=== PATIENT | female | born 1965 | race Caucasian/White ===

== ENCOUNTER → 2017-12-22 08:18 | Outpatient (CLI) | payer MEDICARE, SELFPAY ==
[2017-12-22 09:32] LABS: AST(SGOT) 20 U/L (15-37); Alanine Aminotransfer ALT/SGPT 19 U/L (13-56); Albumin, Serum 3.8 g/dL (3.2-5.0); Alkaline Phosphatase 79 U/L (45-117); Bilirubin, Direct 0.16 mg/dL (0.00-0.30); Cholesterol 157 mg/dL (200); Globulin 3.2 g/dL (2.2-4.2); High Density Lipoprotein 47 mg/dL; T4 Total, Thyroxin 9.3 ug/dL (4.8-13.9); Thyroid Stim Hormone (TSH) 0.52 uIU/mL (0.358-3.74); Triglycerides 93 mg/dL; Very Low Density Lipoprotein 19 mg/dL (5-40)
== END ==
LOC: LAB 08:22
PROVIDERS: Family Provider Internal Medicine; PCP Internal Medicine; Visit Provider Internal Medicine Cardiovascular Disease
DX: I48.0 Paroxysmal atrial fibrillation (principal); Z86.73 Personal history of transient ischemic attack (TIA), and cerebral infarction without residual deficits; F17.200 Nicotine dependence, unspecified, uncomplicated
CPT/HCPCS: 36415; 80061; 80076; 84436; 84443

== ENCOUNTER → 2017-12-27 14:40 | Outpatient (CLI) | payer MEDICARE, SELFPAY ==
--- NOTE | 2017-12-27 14:43 | ECHOD_ITS ---
Reason For Study: DYSPNEA Procedure This was a 2D Doppler, Color Flow transthoracic echocardiogram. Exam performed in department. Left Ventricle Mildly dilated left ventricle. The estimated ejection fraction is 45 %. Paced septal motion. No regional wall motion abnormalities noted. Right Ventricle Mildly dilated right ventricle. ICD or pacer leads identified within the right ventricle. Normal systolic function. Atria Normal left atrium. Normal right atrium. ICD or pacer leads identified within the right atrium. Normal atrial septum. Mitral Valve Peak transmitral valve gradient 12 mmHg. Mean transmitral valve gradient 6 mmHg. Stable appearing bioprosthetic mitral valve apparatus. Tricuspid Valve Normal tricuspid valve. Mild (1+) tricuspid valve insufficiency. Right ventricular systolic pressure estimated to be 31 mmHg. Aortic Valve Trisinus/trileaflet aortic valve. Trivial aortic valve insufficiency. Pulmonic Valve The pulmonic valve is not well visualized. Great Vessels Normal aortic root. Normal arch. Normal inferior vena cava. Inferior vena cava collapse with sniff. Pericardium/Pleural No pericardial effusion. MMode/2D Measurements & Calculations LVIDd: 4.9 cm IVSd: 0.90 cm LVOT diam: 2.0 cm LVIDs: 3.5 cm LVPWd: 0.88 cm LVOT area: 3.1 cm2 RVDd: 3.9 cm FS: 29.0 % Ao root diam: 2.6 cm LAV(MOD-bp): 42.1 ml LA A4 area: 15.9 cm2 LAV(MOD-bp) Indexed: 23.0 ml/m2 LAV(MOD-sp2): 38.9 ml LAV(MOD-sp4): 41.5 ml RA A4 area: 12.5 cm2 Doppler Measurements & Calculations Lat Peak E' [place]: 5.1 cm/sec Med Peak E' [place]: 5.3 cm/sec MV V2 max: 171.5 cm/sec MV max P.8 mmHg MV V2 mean: 121.7 cm/sec MV mean P.4 mmHg MV V2 VTI: 38.7 cm MVA(VTI): 1.9 cm2 Ao V2 max: 146.2 cm/sec AI max milan: 425.5 cm/sec LV V1 max: 126.9 cm/sec Ao max P.6 mmHg AI max P.4 mmHg LV V1 max P.4 mmHg TUAN(V,D): 2.7 cm2 AI dec slope: 270.3 cm/sec2 LV V1 mean P.8 mmHg AI P1/2t: 461.0 msec LV V1 mean: 76.7 cm/sec LV V1 VTI: 23.2 cm SV(LVOT): 72.8 ml PA V2 max: 90.3 cm/sec PI end-d milan: 112.9 cm/sec TR max milan: 228.4 cm/sec TR max P.2 mmHg Interpretation Summary Mildly dilated left ventricle. The estimated ejection fraction is 45 %. Mildly dilated right ventricle. Stable appearing bioprosthetic mitral valve apparatus normal bioprosthetic peak and mean gradients. Mild (1+) tricuspid valve insufficiency. Right ventricular systolic pressure estimated to be 31 mmHg. Trivial aortic valve insufficiency. There is no comparison study available. Ordering Physician: Dillon Hoff Referring Physician: AZUL PHILLIPS Performed By: Karina Gillis, RDCS, RVT
== END ==
PROVIDERS: Family Provider Internal Medicine; PCP Internal Medicine; Visit Provider Internal Medicine Cardiovascular Disease
DX: I49.5 Sick sinus syndrome (principal); I44.2 Atrioventricular block, complete; Z95.0 Presence of cardiac pacemaker; Z95.3 Presence of xenogenic heart valve; I10 Essential (primary) hypertension; I05.2 Rheumatic mitral stenosis with insufficiency; F17.200 Nicotine dependence, unspecified, uncomplicated; I48.0 Paroxysmal atrial fibrillation; Z86.73 Personal history of transient ischemic attack (TIA), and cerebral infarction without residual deficits
CPT/HCPCS: 93306

== ENCOUNTER → 2018-01-17 06:51 | Outpatient (CLI) | payer MEDICAID, SELFPAY ==
--- NOTE | 2018-01-17 15:12 | PFTCOMP ---
COMPLETE PULMONARY FUNCTION TEST INTERPRETATION Brief HPI: Patient is a 52 year old female, currently under the care of Dr. Hoff, who presents to [facility] for complete pulmonary function tests secondary to diagnosis of A. fib. Respiratory therapist reports good effort and reproducible results. Interpretation: Forced expiration spirometry shows no large airways obstructive ventilatory defect with an FEV1 of 85% predicted. There is no significant bronchodilator response by ATS criteria. Spirograms are of good quality and plateau normally. The respiratory flow volume loop shows a normal pattern. Lung volumes by body plethysmography are not reported. Diffusion capacity by carbon monoxide is decreased at 57% predicted. The airway resistance is normal. No previous pulmonary function tests were available for review. Impression: Isolated defect in diffusion capacity consistent with a pulmonary vascular disorder. Would recommend serial monitoring if amiodarone is being used. Lung volumes would be helpful.
== END ==
PROVIDERS: Family Provider Internal Medicine; PCP Internal Medicine; Visit Provider Internal Medicine Cardiovascular Disease
DX: I48.0 Paroxysmal atrial fibrillation (principal); Z86.73 Personal history of transient ischemic attack (TIA), and cerebral infarction without residual deficits; Z95.3 Presence of xenogenic heart valve; I10 Essential (primary) hypertension
CPT/HCPCS: 94060; 94726; 94729

== ENCOUNTER → 2018-01-26 12:27 | Outpatient (CLI) | payer MEDICAID, SELFPAY ==
--- NOTE | 2018-01-26 12:29 | STE_ITS ---
Reason For Study: Dyspnea Stress Results Protocol: Modified Eloy Protocol Maximum Predicted HR: 170 bpm Target HR: 145 bpm% Maximum Pred icted HR: 80 % DurationHeart Rate Stage (mm:ss) (bpm) BPCom ment Baseline 80 108/70 No Chest Pain Modified Eloy Protocol Stage 0 3:00 97 132/70No Chest Pain; Moderate Dyspnea Modified Eloy Protocol Stage 1/2 3:00 98 164/72No Chest Pain, Moderate Dyspnea Modified Eloy Protocol Stage 1 1:46 13 6 / No Chest Pain, Moderate to Severe Dyspnea Recovery 84 124/72 No Chest Pain; No Dyspnea Stress Duration: 7:46 mm:ss Maximum Stress HR: 136 bpmM ETS: 4 Baseline Echocardiogram Findings The estimated ejection fraction is 55 %. Septal Stress Echo Wall motion Data Resting WMIntermediate WMStress WM Resting Wall Motion Wall Motion Stress No regional wall motion No regional wall motion abnormalities noted. abnormalities noted. EKG Data The baseline ECG demonstrates normal sinus rhythm with at rate of _ beats per minute. Interpretation Summary The estimated ejection fraction is 55 %. Normal, adequate, treadmill echocardiogram. Negative for ischemia by EKG and echocardiographic criteria. No anginal symptoms noted. Normal BP response to exercise. Patient had transient atrial fibrillation during exercise which spontaneously resolved during recovery. Final LVEF 75%. No complications. Ordering Physician: Dillon Hoff Referring Physician: Dillon Hoff Performed By: Rafa Crespo RCS
== END ==
PROVIDERS: Family Provider Internal Medicine; PCP Internal Medicine; Visit Provider Internal Medicine Cardiovascular Disease
DX: I48.0 Paroxysmal atrial fibrillation (principal); Z95.3 Presence of xenogenic heart valve; I10 Essential (primary) hypertension
CPT/HCPCS: 93017; 93350

== ENCOUNTER 2018-10-23 09:04 | Emergency (ER) | payer MEDICARE, SELFPAY ==
[2018-06-25 09:50] VITALS: BMI 34.9
[2018-10-23 09:05] VITALS: BP 154/85; PULSE 89; RESP 20; TEMP 36.6; O2SAT 99; BMI 34.7
--- NOTE | 2018-10-23 09:21 | ED.VIS.GEN ---
History of Present Illness Chief Complaint: Lower Extremity Injury Detail of Chief Complaint: Rash dorsal surface right foot Informant: Patient Onset: Yesterday Context: Sudden Onset Timing: Continuous Quality: Erythematous rash distal lateral right foot Location: Right foot Current Severity: Mild Maximum Severity: Mild Worsened by: Fungal infection Relieved by: Nothing Associated Symptoms: Nothing Narrative: Patient is a middle-aged woman who was sent to the emergency room for evaluation of right foot infection. She denies fever, chills night sweats. She denies polyuria, polydipsia, polyphagia, nocturia. She did denies family history diabetes. She is on Coumadin secondary to stroke 10 years ago. She has multiple antibiotic allergies and specifically penicillin and cephalosporin. She denies fever, chills night sweats. Denies weight loss or weight gain. She denies bruising easily. She denies blood in her stool, hematuria or rash other than the right foot rash. Prior similar symptoms: No Recent Illness/Hospitalization: No - Past Medical History (1) Non-ischemic cardiomyopathy Status: Acute Comment: EF 45% per echo 12/27/17 (2) CVA (cerebral vascular accident) Status: Chronic Comment: Left Mid Cerebral Artery, Right frontal and Bilateral Parietal Regions (3) Complete heart block Status: Chronic (4) Hypertension Status: Chronic (5) Paroxysmal atrial fibrillation Status: Chronic (6) Presence of cardiac pacemaker Status: Chronic Comment: Implanted 07/28/2009 then RV lead extraction and Generator Change on 07/04/2011 (7) Rheumatic mitral stenosis with insufficiency Status: Chronic (8) Sick sinus syndrome Status: Chronic Past Medical History - Allergies and Home Meds Allergies/Adverse Reactions: Allergies amoxicillin [Amoxicillin] Allergy (Verified 10/23/18 09:07) Hives latex Allergy (Verified 10/23/18 09:07) Rash lisinopril Allergy (Verified 10/23/18 09:07) Unknown Penicillins Allergy (Verified 10/23/18 09:08) Hives venom-honey bee [bee venom (honey bee)] Allergy (Verified 10/23/18 09:07) Swelling ciprofloxacin [From Cipro] Adverse Reaction (Verified 10/23/18 09:07) Nausea/Vom/Diarrhea Primary Care Physician: Louis Dobbs MD [Primary Care Provider] - Prior records reviewed: Yes Surgical History: noncontributory Lives: With Family Smoking Status: Current every day smoker Alcohol: None - Family History Maternal Family History: Reports: - - No coronary artery disease Paternal Family History: Reports: - - No coronary artery disease Review of Systems General: Denies: Chills, Fever, Malaise, Sweats, Weight loss Eyes: Denies: Visual changes - bilaterally, Blurred Vision - bilaterally, Diplopia ENT: Denies: Bilateral ear pain, Rhinorrhea, Sore throat Cardiovascular: Denies: Chest pain, Palpitations Respiratory: Denies: Dyspnea, Cough, Dyspnea on exertion Gastrointestinal: Denies: Nausea, Vomiting Skin: Reports: Rash Endocrine: Denies: Polyuria, Polydipsia Hematologic: Denies: Easy bruising, Easy bleeding Allergy: Reports: Uticaria - Reaction to penicillin. Denies: Swelling of the mouth Physical Exam Vital Signs/Narrative: Vital Signs Temp Pulse Resp BP Pulse Ox 10/23/18 09:05 97.9 F 89 20 H 154/85 H 99 General: Well nourished, Well developed, Obese, No Acute Distress Head: Normocephalic, Atraumatic Eyes: Perrl, EOMI. Negative for: Pale conjunctiva, Scleral icterus ENT: Moist mucous membranes, No rhinorrhea Neck: Supple, Nontender, No lymphadenopathy, No JVD Cardiovascular: Regular rate, Regular rhythm, No murmurs, Normal S1, Normal S2 Respiratory: No distress, CTA bilaterally, Chest nontender Abdomen: Soft, Nontender, Nondistended, Normal bowel sounds Extremities: Nontender, No edema Skin: Normal color, Rash - There is an erythematous rash secondary to yeast infection between the fourth and fifth toe. This covers the lateral dorsal surface of the right foot with lymphangitic spread to the anterior right ankle. There is no popliteal or inguinal lymphadenopathy. Neurological: Alert, Oriented x3, Cranial nerves II-XII grossly intact, Normal Strength, Normal Sensation Psychological: Normal affect, Normal Mood Diagnostic/Tx/Re-eval Laboratory Results 10/23/18 10:15 PT 27.2 H INR 2.5 - Medical Decision Making Since patient is on Coumadin and antibiotic may cause elevation of INR will obtain baseline. Depending on baseline will have patient alter dose of Coumadin while on antibiotics. GGT was obtained to evaluate for diabetes. If blood sugar is elevated will obtain basic metabolic panel and additional blood work otherwise will treat with anti-fungal cream and p.o. doxycycline. INR is therapeutic at 2.7. Patient was instructed to decrease Coumadin from 5 mg a day to 2.5 mg a day while on antibiotic. ED Disposition - Plan for ED Patient: Disposition: Home or Assisted Living Diagnosis: Cellulitis of foot, right, Tinea pedis of right foot Instructions: ED Infec Skin Cellulitis, ED Fungal Infec Athlete Foot Prescriptions: Doxycycline 100 mg PO BID #14 capsule Clotrimazole [Lotrimin AF] 24 gm TP TID #1 cream..g. Referrals: Louis Dobbs MD [Primary Care Provider] - 2 Days for wound check Additional Instructions: If Dr. Dobbs is unable to see you for wound check in 2 days please return to the emergency room for wound check. Your prescriptions were electronically transmitted to [facility] pharmacy; your designated pharmacy of choice. Decrease Coumadin dose to 2.5 mg for today, tomorrow and Monday.
[2018-10-23 10:07] VITALS: BP 134/76; PULSE 78; RESP 18; TEMP 36.7; O2SAT 98
[2018-10-23] MEDS: Doxycycline 100 MG CAPSULE PO (10:24)
[2018-10-23 10:29] LABS: International Normalized Ratio 2.5; Prothrombin Time (Protime)PT. 27.2 SECONDS (11.7-14.9)
[2018-10-23 10:41] LABS: Bedside Glucose 93 mg/dL (70-110)
== END 2018-10-23 10:57 | disposition home or self-care (01) ==
PROVIDERS: Emergency Provider Emergency Medicine; Family Provider Internal Medicine; PCP Internal Medicine
DX: L03.115 Cellulitis of right lower limb (principal); B35.3 Tinea pedis; E66.9 Obesity, unspecified; I42.9 Cardiomyopathy, unspecified; I44.2 Atrioventricular block, complete; I10 Essential (primary) hypertension; I48.0 Paroxysmal atrial fibrillation; I05.2 Rheumatic mitral stenosis with insufficiency; F17.200 Nicotine dependence, unspecified, uncomplicated; Z95.0 Presence of cardiac pacemaker
CPT/HCPCS: 82962; 85610; 99283; A4216

== ENCOUNTER → 2019-02-19 | Outpatient (CLI) | payer MEDICARE, SELFPAY ==
[2019-02-14 11:04] VITALS: BMI 33.5
--- NOTE | 2019-02-19 13:49 | ECHOD_ITS ---
Reason For Study: VALVE REPLACEMENT Procedure This was a 2D Doppler, Color Flow transthoracic echocardiogram. Exam performed in department. Left Ventricle Normal size and thickness. The estimated ejection fraction is 45 %. Paced septal motion. There is moderate global hypokinesis of the left ventricle. Right Ventricle Mildly dilated right ventricle. ICD or pacer leads identified within the right ventricle. Mild global right ventricular systolic dysfunction. Atria Normal left atrium. Normal right atrium. Normal atrial septum. Mitral Valve Peak transmitral valve gradient 8 mmHg. Mean transmitral valve gradient 5 mmHg. Stable appearing bioprosthetic mitral valve apparatus. Tricuspid Valve Normal tricuspid valve. Moderate (2+) tricuspid valve insufficiency. Right ventricular systolic pressure estimated to be 36 mmHg. Aortic Valve Trisinus/trileaflet aortic valve. Trivial aortic valve insufficiency. Pulmonic Valve Normal pulmonic valve. Mild (1+) pulmonic valve insufficiency. Great Vessels Normal aortic root. Normal arch. Normal inferior vena cava. Inferior vena cava collapse with sniff. Pericardium/Pleural No pericardial effusion. MMode/2D Measurements & Calculations LVIDd: 5.0 cm IVSd: 0.74 cm LVOT diam: 2.0 cm LVIDs: 3.4 cm LVPWd: 0.78 cm LVOT area: 3.1 cm2 RVDd: 3.8 cm FS: 32.4 % Ao root diam: 2.9 cm LAV(MOD-bp): 37.5 ml LA A4 area: 12.5 cm2 LAV(MOD-bp) Indexed: 20.4 ml/m2 LAV(MOD-sp2): 51.2 ml LAV(MOD-sp4): 27.0 ml LA dimension(2D): 3.5 cm RA A4 area: 12.7 cm2 Doppler Measurements & Calculations MV V2 max: 142.6 cm/sec Ao V2 max: 154.1 cm/sec AI max adair: 434.6 cm/sec MV max P.2 mmHg Ao max P.5 mmHg AI max P.6 mmHg MV V2 mean: 102.5 cm/sec Ao V2 mean: 112.4 cm/sec AI dec slope: 299.6 cm/sec2 MV mean P.5 mmHg Ao mean P.6 mmHg AI P1/2t: 424.9 msec MV V2 VTI: 35.7 cm Ao V2 VTI: 29.6 cm MVA(VTI): 2.3 cm2 TUAN(I,D): 2.8 cm2 TUAN(V,D): 2.5 cm2 LV V1 max: 123.3 cm/sec SV(LVOT): 82.0 ml PA V2 max: 81.0 cm/sec LV V1 max P.1 mmHg LV V1 mean P.3 mmHg LV V1 mean: 84.8 cm/sec LV V1 VTI: 26.7 cm TR max adair: 263.5 cm/sec MV P1/2t-pr_phl: 97.5 msec TR max P.1 mmHg Interpretation Summary The estimated ejection fraction is 45 %. There is moderate global hypokinesis of the left ventricle. Mildly dilated right ventricle. Stable and normal functioning bioprosthetic mitral valve apparatus. Moderate (2+) tricuspid valve insufficiency. Right ventricular systolic pressure estimated to be 36 mmHg. Trivial aortic valve insufficiency. Compared to echo report dated 12/27/17, no appreciable changes noted. Ordering Physician: Dillon Hoff Referring Physician: Louis Dobbs M.D. Performed By: Karina Gillis, KANA, RVT
== END | disposition home or self-care (01) ==
LOC: CVS 13:48
PROVIDERS: Family Provider Internal Medicine; PCP Internal Medicine; Referring Provider Internal Medicine Cardiovascular Disease; Visit Provider Internal Medicine Cardiovascular Disease
DX: I44.2 Atrioventricular block, complete (principal); Z95.0 Presence of cardiac pacemaker; I05.2 Rheumatic mitral stenosis with insufficiency; I48.0 Paroxysmal atrial fibrillation; Z86.73 Personal history of transient ischemic attack (TIA), and cerebral infarction without residual deficits; I42.8 Other cardiomyopathies; I49.5 Sick sinus syndrome; Z95.3 Presence of xenogenic heart valve
CPT/HCPCS: 93306

== ENCOUNTER 2019-06-10 00:24 | Emergency (ER) | payer MEDICARE, SELFPAY ==
[2019-02-14 11:04] VITALS: BMI 33.5
[2019-06-10 00:25] VITALS: BP 138/113; PULSE 88; RESP 18; TEMP 36.5; O2SAT 98; BMI 34.4
[2019-06-10 00:30] VITALS: BP 148/54; PULSE 82; RESP 18; O2SAT 95
--- NOTE | 2019-06-10 00:43 | CT_ITS ---
STUDY: CT ABDOMEN AND PELVIS WITH CONTRAST REASON FOR EXAM: Female, 53 years old. Abdomen pain. Hypertension. RADIATION DOSAGE (If Supplied By Facility): CTDIvol = ( 17.60 ) mGy, DLP = ( 1100.07 ) mGycm TECHNIQUE: Transaxial images were obtained from the dome of the diaphragm to the symphysis pubis without oral contrast. IV 100mL Isovue-300 100ML was administered. Sagittal and coronal images were reconstructed. Individualized dose optimization techniques were used for this CT. COMPARISON: None. FINDINGS: The visualized lung bases are unremarkable. The visualized portions of the heart are within normal limits. There is a cyst in the right lobe of the liver measures 6 mm axial image #18. Normal gallbladder and extrahepatic biliary system. Normal spleen. Normal pancreas. Normal bilateral adrenal glands. Normal right kidney. There is fat stranding in the left renal pelvis suggesting pyelonephritis. There is a left renal cyst measures 1 cm. Normal visualized stomach. Normal small intestine. There are multiple colonic diverticula consistent with diverticulosis. The appendix is visualized and appears normal. There is diffuse atherosclerotic calcification of the abdominal aorta, without a demonstrated aneurysm. Normal inferior vena cava. Normal retroperitoneum. Normal urinary bladder. Normal abdominal wall. Normal osseous structures. CT/Abdomen/Pelvis W IV Cont ONLY IMPRESSION: There is fat stranding in the left renal pelvis suggesting pyelonephritis. Electronically Signed: Yvonne Patino, at 2:16 EST Tel , Service support ,
--- NOTE | 2019-06-10 00:45 | ED.DCSUM_ITS ---
- ER Visit Summary Date of Service: 06/10/19 Chief Complaint: Diffuse abdominal pain History of Present Illness: The patient is a 53 F history of cardiomyopathy, stroke, A. fib on Eliquis, pacemaker and a prior partial colectomy due to a benign mass. Patient is on Coumadin. States she has had diffuse epigastric and periumbilical abdominal pain for about 2 weeks. Pains daily. Nothing specifically makes it better or worse. She had nausea. No vomiting or diarrhea. No documented fever but subjectively she is felt warm. Denies any melena. She was seen at the [facility] started on Macrobid for suspected UTI. She denies any urinary symptoms. Denies any weight loss. Physical Examination: Middle-aged female. No acute distress. Vital signs are stable afebrile. HEENT exam unremarkable. Lungs clear to auscultation bilaterally. Heart regular rhythm no murmur. Abdomen is soft. Nondistended. Normal bowel sounds. No peritoneal signs. Mildly tender in epigastric periumbilical region. No specific Dudley sign or McBurney's point tenderness. No hernias or masses. No pulsatile mass. Patient moving all 4 extremities. Neurovascular intact. No edema. Back nontender. Neurologically she is awake and alert. Moving all 4 extremities. Test Results: CBC shows a white count of 10. Hemoglobin 13. No bands. Chemistries normal BUN 16 creatinine 1.1. Liver enzymes normal. Lipase normal. UA shows positive nitrites blood 25-50 on the micro there is no white cells no bacteria. Serum test negative. CAT scan of the abdomen pelvis with IV contrast only reviewed by me read by the radiologist shows fat stranding and left renal pelvis consistent with pyelonephritis the appendix is seen is normal there is mild diverticulosis. Due to the CAT scan results a urine culture was sent. Emergency Department Course and Treatment: Middle-aged female with diffuse nonspecific epigastric and periumbilical abdominal pain for 2 weeks. Screening labs will be obtained. CT abdomen pelvis will be obtained. She did not waiting currently for pain or nausea. She will be given a liter normal saline do the CAT scan with IV contrast. Patient was treated with Toradol for pain and Zofran for nausea. Repeat exam she is doing well. We discussed all of her test results. Basically normal labs. The CAT scan is concerning for a left pyelonephritis. Urine culture was sent. She will be placed on Keflex for 10 days and follow-up with her primary care physician. Treatment Plan: Keflex 4 times daily for 10 days. Zofran for nausea. Tylenol Motrin for pain. Follow-up with your primary care physician for the urine culture results. Disposition: Discharge Impression: Acute abdominal pain secondary to left pyelonephritis This note was generated with [employer] dictation software. It may contain incorrect words, spelling, and punctuation that were not noted in review of the chart prior to signing ED Disposition - Plan for ED Patient: Referrals: Louis Dobbs MD [Primary Care Provider] -
[2019-06-10] MEDS: 0.9% Normal Saline 1,000 ML 1000 ML IV (00:50)
[2019-06-10 00:55] LABS: Bacteria 0 SEEN /hpf (None Seen); Mucous, Urine 0 SEEN /hpf (<or=2+); White Blood Cells 0 SEEN /hpf (0-5)
[2019-06-10 00:59] LABS: Absolute Neutrophil Count 7.4 X10^3/uL (2.0-7.7); Basophil% 0.9 % (0-1); Eosinophil# 0.72 X10^3/uL; Eosinophils% 6.6 % (0-5); Hematocrit 41.6 % (37-47); Hemoglobin 13.8 g/dL (12.0-15.0); Lymphocyte % 17.5 % (19-41); Mean Corp Hgb Conc 33.2 g/dL (32-36); Mean Corpuscular Hgb 30.1 pg (27.0-32.0); Mean Corpuscular Volume 90.6 fL (81-99); Mean Platelet Vol. 10.1 fl (6.2-12.0); Monocyte# 0.69 X10^3/uL; Monocyte% 6.3 % (0-10); NRBC Flagged by Analyzer 0 % (0-5); Neutrophil # 7.43 X10^3/uL (2.7-7.7); Neutrophil % 68.4 % (47-70); Platelet Count 237 K/mm3 (150-450); RBC Distribution Width CV 14.5 % (11.6-14.6); RBC Distribution Width SD 48.6 fl (35.1-43.9); Red Blood Count 4.59 M/mm3 (4.2-5.4); White Blood Count 10.9 K/mm3 (4.4-11.0)
[2019-06-10 01:02] LABS: Color, Urine Yellow (Yellow); Glucose, Dipstick Normal (Normal); Ketone-Dipstick Negative (Negative); Leukocyte Esterase-Dipstick Negative /ul (Negative); Nitrite-Dipstick Positive (Negative); Occult Blood-Urine 250 /ul (Negative); Protein-Dipstick 100 mg/dl (Negative); Specific Gravity, Urine 1.015 (1.002-1.030); Urine Clarity Clear (Clear); Urine Urobilinogen 1 mg/dl (Normal)
[2019-06-10 01:04] LABS: Urine Bilirubin Dipstick 1 mg/dL (Negative)
[2019-06-10 01:12] LABS: Red Blood Cells-Urine 25-50 SEEN /hpf (0-5); Squamous Epithelial Cells - UA 0-5 SEEN /hpf (5-10)
[2019-06-10 01:23] LABS: AST(SGOT) 32 U/L (15-37); Alanine Aminotransfer ALT/SGPT 19 U/L (13-56); Albumin, Serum 3.7 g/dL (3.2-5.0); Alkaline Phosphatase 86 U/L (45-117); Anion Gap 7 (5-15); BUN 16 mg/dL (7-18); BUN/Creat Ratio 13.9 RATIO (10-20); Bilirubin, Direct 0.12 mg/dL (0.00-0.30); Calcium,Total 9.2 mg/dL (8.5-10.1); Chloride 108 mmol/L (98-107); Creatinine, Serum 1.15 mg/dL (0.55-1.02); EST Glomerular Filtration Rate 53 mL/min (>60); Est Glom Filt Rate - Afr Amer 64 mL/min (>60); Estimated Creatinine Clearance 45.77 ml/min; Globulin 3.6 g/dL (2.2-4.2); Glucose 119 mg/dL (74-106); Lipase 155 U/L (73-393); Potassium 4.7 mmol/L (3.5-5.1); Protein, Total 7.3 g/dL (6.4-8.2); Sodium Level 138 mmol/L (136-145)
[2019-06-10 01:38] LABS: Internal QC Validated? YES +Cl - CLEAR BKGD; Pregnancy, Serum, hCG Quali. NEGATIVE Negative
[2019-06-10 02:26] VITALS: BP 139/76; PULSE 67; RESP 18; O2SAT 98
[2019-06-10] MEDS: Ondansetron 4 MG/2 ML Vial IV (02:29)
[2019-06-10] MEDS: Ketorolac 30 MG/ML Syringe IV (02:29)
[2019-06-10] MEDS: Cephalexin 250 MG Capsule 500 MG PO (02:32)
--- NOTE | 2019-06-10 02:33 | ED.DEP ---
ED Disposition - Plan for ED Patient: Disposition: Home or Assisted Living Instructions: PYELONEPHRITIS, Female (Adult) Prescriptions: Cephalexin [Keflex] 500 mg PO Q6 #40 cap Prescription Printed Ondansetron [Zofran Odt] 4 mg PO Q8H PRN PRN #10 tab PRN Reason: Nausea Prescription Printed Referrals: Louis Dobbs MD [Primary Care Provider] - 3-5 Days Additional Instructions: Follow-up with your primary care physician. Your CAT scan suggest that you might have an infection in your left kidney, pyelonephritis. A urine culture was sent those results should be back in 36 to 48 hours. Your primary care physician can check those. He will be started on antibiotic called Keflex which she will take 1 pill 4 times a day for 10 days. Written for Zofran for nausea. Tylenol and/or Motrin for pain.
== END 2019-06-10 02:43 | disposition home or self-care (01) ==
PROVIDERS: Emergency Provider Emergency Medicine; Family Provider Internal Medicine; PCP Internal Medicine
DX: N12 Tubulo-interstitial nephritis, not specified as acute or chronic (principal); I42.9 Cardiomyopathy, unspecified; I48.91 Unspecified atrial fibrillation; Z86.73 Personal history of transient ischemic attack (TIA), and cerebral infarction without residual deficits; Z95.0 Presence of cardiac pacemaker; Z90.49 Acquired absence of other specified parts of digestive tract; Z79.01 Long term (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 anticoagulants; Z79.899 Other long term (current) drug therapy; Z72.0 Tobacco use
CPT/HCPCS: 74177; 80048; 80076; 81001; 83690; 84703; 85025; 87086; 87088; 96361; 96374; 96375; 99284; Q9967; A4216; J2405

== ENCOUNTER 2019-07-24 19:56 | Emergency (ER) | payer MEDICARE, SELFPAY ==
[2019-07-24 19:56] VITALS: BP 158/83; PULSE 96; RESP 18; TEMP 35.8; O2SAT 98; BMI 33.7
--- NOTE | 2019-07-24 20:06 | ED.VIS.INJ ---
History of Present Illness Chief Complaint: Upper Extremity Injury Informant: Patient Onset: Today Mechanism/Context: Blunt Injury, Fall Quality of Pain: Dull, Aching Location: Left arm Current Severity: Mild Maximum Severity: Moderate - Movement and palpation Worsened by: Movement Relieved by: Rest Associated Symptoms: Parasthesias, Weakness, Loss of function, - - Patient reports weakness secondary to prior right hemispheric stroke with left-sided residual numbness and weakness. Negative for: Inability to ambulate, Loss of consciousness, Amnesia Narrative: Patient 53-year-old woman who presents because of injury to her right arm. She states she slipped on the ice this morning. She is right-hand dominant. She localizes the pain to the mid left arm. She denies any new paresthesia or weakness. She denies head trauma. She denies neck pain. She denies cardiac respiratory symptoms. Tetanus Immunization: <5 years Prior similar symptoms: No Recent Illness/Hospitalization: No - Past Medical History (1) Non-ischemic cardiomyopathy Status: Acute Comment: EF 45% per echo 12/27/17 (2) CVA (cerebral vascular accident) Status: Chronic Comment: Left Mid Cerebral Artery, Right frontal and Bilateral Parietal Regions (3) Complete heart block Status: Chronic (4) History of mitral valve replacement with bioprosthetic valve Status: Chronic Comment: 27 mm [employer] Velasco bioprosthesis (5) Hypertension Status: Chronic (6) Nicotine dependence Status: Chronic (7) Paroxysmal atrial fibrillation Status: Chronic (8) Presence of cardiac pacemaker Status: Chronic Comment: Implanted 07/28/2009 then RV lead extraction and Generator Change on 07/04/2011 (9) Sick sinus syndrome Status: Chronic Past Medical History - Allergies and Home Meds Allergies/Adverse Reactions: Allergies amoxicillin [Amoxicillin] Allergy (Verified 06/10/19 00:31) Hives latex Allergy (Verified 06/10/19 00:31) Rash lisinopril Allergy (Verified 06/10/19 00:31) Unknown Penicillins Allergy (Verified 06/10/19 00:31) Hives venom-honey bee [bee venom (honey bee)] Allergy (Verified 06/10/19 00:31) Swelling ciprofloxacin [From Cipro] Adverse Reaction (Verified 06/10/19 00:31) Nausea/Vom/Diarrhea Primary Care Physician: Louis Dobbs MD [Primary Care Provider] - Surgical History: coronary bypass surgery Lives: Spouse/ Significant Other Smoking Status: Current every day smoker Alcohol: None Drugs: None - Family History Maternal Family History: Reports: - - No coronary artery disease Paternal Family History: Reports: - - No coronary artery disease Review of Systems General: Denies: Chills, Fever, Sweats Eyes: Denies: Visual changes - bilaterally, Blurred Vision - bilaterally, Diplopia ENT: Denies: Bilateral ear pain Cardiovascular: Denies: Chest pain, Palpitations Respiratory: Denies: Dyspnea, Dyspnea on exertion Gastrointestinal: Denies: Abdominal pain, Nausea, Vomiting, Diarrhea Musculoskeletal: Reports: Swelling, Extremity Pain. Denies: Myalgias, Arthralgias, Neck pain, Back pain Skin: Reports: Rash, Abrasions, Wounds Neurological: Reports: Weakness, Parasthesia, Numbness, - - No symptoms are residual secondary to right hemispheric stroke. Denies: Headache Endocrine: Denies: Polyuria, Polydipsia Physical Exam Vital Signs/Narrative: Vital Signs Temp Pulse Resp BP Pulse Ox 07/24/19 19:56 96.5 F L 96 18 158/83 H 98 Inital Vital Signs reviewed: Yes General: Well nourished, Well developed Head: Normocephalic, Atraumatic. Negative for: Trauma, Tenderness Eyes: Perrl, EOMI ENT: TM's clear, No hemotympanum or drainage, No trauma. Negative for: Hemotympanum, Otorrhea, Nasal trauma, Nasal septal hematoma Neck: Nontender, Full ROM. Negative for: Spinal Tenderness, Paraspinal Tenderness Cardiovascular: Regular rate, No murmurs, Normal S1, Normal S2, Irregular Respiratory: No distress, CTA bilaterally, Chest nontender Back: Nontender. Negative for: CVA Tenderness - Right, CVA Tenderness - Left Extremeties: There is no pain the patient over the clavicle or AC joint. There is minimal to no discomfort over the proximal humerus. There is pain to palpation to the mid third of the left humerus. Axillary, median, radial and ulnar function are diminished. Radial pulse is palpable. There is no pain the patient over the lateral or medial epicondyle. There is no pain relation over the olecranon process or the radial head. No pain patient over the distal radius or ulna. Is no pain the patient with carpal bones, metacarpal bones or phalanges. Skin: Normal color, No rash Psychological: Normal affect, Normal Mood - Glascow Coma Scale Eye Opening: Spontaneous Motor: Obeys Commands Verbal: Oriented Coma Scale Total: 15 Diagnostic/Tx/Re-eval Chest X-Ray - ED: 2 View, Read by ED Physician, - - 2 view x-ray of the left humerus reveals no fracture, subluxation or dislocation. 07/24/19 20:11 Humerus min 2 Views [RAD] Stat - Medical Decision Making X-ray of the left humerus was ordered to evaluate for contusion versus fracture. ED Disposition - Plan for ED Patient: Disposition: Home or Assisted Living Diagnosis: Contusion of left upper arm, initial encounter Instructions: CONTUSION, Upper Extremity Referrals: Louis Dobbs MD [Primary Care Provider] - 10-14 Days if not better Additional Instructions: Apply ice 20 to 30 minutes per application 6-8 times a day for the next 2 to 3 days. Take either Tylenol or ibuprofen for the pain.
--- NOTE | 2019-07-24 20:11 | RAD_ITS ---
STUDY: X-RAY - LEFT HUMERUS REASON FOR EXAM: Female, 53 years old. Left arm pain after falling TECHNIQUE: 2 view(s) of the humerus. COMPARISON: None. FINDINGS: Normal visualized humerus. There is no demonstrated fracture or osseous destructive process. There is no demonstrated soft tissue abnormality. Cardiac conduction device noted. RAD/Humerus min 2 Views IMPRESSION: No fracture or malalignment. Electronically Signed: Jose G Lui MD ([place]) at 20:25 EST , Service support ,
[2019-07-24] MEDS: HYDROcodone Bitartrate/Apap 5/325 Tablet PO (20:13)
== END 2019-07-24 20:50 | disposition home or self-care (01) ==
PROVIDERS: Emergency Provider Emergency Medicine; Family Provider Internal Medicine; PCP Internal Medicine
DX: S40.022A Contusion of left upper arm, initial encounter (principal); W00.0XXA Fall on same level due to ice and snow, initial encounter; Y93.9 Activity, unspecified; Y92.9 Unspecified place or not applicable; I42.8 Other cardiomyopathies; I44.2 Atrioventricular block, complete; I10 Essential (primary) hypertension; I48.0 Paroxysmal atrial fibrillation; I49.5 Sick sinus syndrome; Z86.73 Personal history of transient ischemic attack (TIA), and cerebral infarction without residual deficits; Z95.2 Presence of prosthetic heart valve; Z95.3 Presence of xenogenic heart valve; Z95.1 Presence of aortocoronary bypass graft; Z79.01 Long term (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 anticoagulants; Z79.899 Other long term (current) drug therapy; F17.200 Nicotine dependence, unspecified, uncomplicated
CPT/HCPCS: 73060; 99283

== ENCOUNTER → 2019-09-10 10:16 | Outpatient (CLI) | payer MEDICARE, MEDICAID, SELFPAY ==
[2019-08-29 13:13] VITALS: BMI 33.8
--- NOTE | 2019-09-10 10:17 | STEWCON_ITS ---
Reason For Study: DYSPNEA/SOB Stress Results Protocol: Modified Eloy Protocol With Definity Maximum Predicted HR: 169 bpm Target HR: 144 bpm % Maximum Predicted HR: 78 % DurationHeart Rate Stage (mm:ss) (bpm) BP Comment BASELINE 78 122/78DILUTED DEFINITY 3 CC USED MODBRUCE- STAGE 1 3:00 115 120/76DIZZY, SOB MODBRUCE- STAGE 2 3:00 131 128/80FATIGUE, DIZZY, SOB RECOVERY 85 120/80DIZZINESS, SOB SUBSIDED Stress Duration: 6:00 mm:ss Maximum Stress HR: 131 bpm Baseline Echocardiogram Findings The estimated ejection fraction is 45 %. Septal motion consistent with IVCD. Stress Echo Wall motion Data Resting WM Intermediate WM Stress WM Resting Wall Motion Wall Motion Stress No regional wall motion No regional wall motion abnormalities noted. abnormalities noted. EKG Data The baseline ECG displays normal sinus rhythm. During stress, there were no ST or T wave changes noted to suggest ischemia. No clinical angina was noted. Interpretation Summary The estimated ejection fraction is 45 %. Normal, adequate, modified Eloy treadmill echocardiogram. Negative for ischemia by EKG and echocardiographic criteria. Rate-pressure product of 14,848. No anginal symptoms noted. Rare PACs noted. Baseline LVEF of 45% which increased to 55 % at peak exercise. Test terminated due to fatigue and dyspnea. Decreased exercise capacity for age. Decrease sensitivity due to left bundle branch block, and poor echo windows requiring Definity agent. Patient tolerated procedure well. The study was technically difficult. Contrast injection was performed. Ordering Physician: Dillon Hoff Referring Physician: Dillon Hoff Performed By: Rafa Crespo RCS
== END ==
PROVIDERS: PCP Internal Medicine; Referring Provider Internal Medicine Cardiovascular Disease; Visit Provider Internal Medicine Cardiovascular Disease
DX: R06.00 Dyspnea, unspecified (principal)
CPT/HCPCS: 93017; 93350; Q9957; A4216; C8928

== ENCOUNTER → 2020-04-14 12:52 | Outpatient (CLI) | payer MEDICARE, MEDICAID, SELFPAY ==
[2020-03-30 12:59] VITALS: BMI 32.4
--- NOTE | 2020-04-14 12:52 | ECHOD_ITS ---
Reason For Study: VALVE REPLACEMENT EVAL Procedure This was a 2D Doppler, Color Flow transthoracic echocardiogram. The exam was of adequate technical quality. Exam performed in department. Left Ventricle Normal LV size. Left ventricular systolic function is lower limits of normal. The estimated ejection fraction is 50 %. Paced septal motion. Diastolic function is indeterminate. No regional wall motion abnormalities noted. Right Ventricle Normal RV size. ICD or pacer leads identified within the right ventricle. Normal systolic function. Atria Normal left atrium. Normal right atrium. ICD or pacer leads identified within the right atrium. No doppler evidence for ASD. Mitral Valve Stable appearing bioprosthetic mitral valve apparatus. Trivial transvalvular insufficiency of the mitral valve. Tricuspid Valve Normal tricuspid valve. Mild to moderate (1-2+) tricuspid valve insufficiency. Right ventricular systolic pressure estimated to be 25 mmHg. Aortic Valve Trisinus/trileaflet aortic valve. Normal aortic valve. Pulmonic Valve The pulmonic valve is not well visualized. Trivial pulmonic valve insufficiency. Great Vessels Normal sized aortic root. Pericardium/Pleural No pericardial effusion. MMode/2D Measurements & Calculations LVIDd: 4.9 cm IVSd: 0.69 cm Ao root diam: 3.0 cm LVIDs: 3.3 cm LVPWd: 0.90 cm RVDd: 3.1 cm FS: 32.8 % LAV(MOD-bp): 49.0 ml LVAd ap4: 27.2 cm2 SV(MOD-sp4): 41.6 ml LAV(MOD-bp) Indexed: 26.8 ml/m2 EDV(MOD-sp4): 80.4 ml LAV(MOD-sp2): 56.2 ml EDV(sp4-el): 82.2 ml LAV(MOD-sp4): 41.8 ml LVAs ap4: 18.5 cm2 ESV(MOD-sp4): 38.8 ml ESV(sp4-el): 40.4 ml EF(MOD-sp4): 51.7 % EF(sp4-el): 50.8 % SV(sp4-el): 41.8 ml LA A4 area: 16.3 cm2 LA dimension(2D): 3.9 cm RA A4 area: 12.7 cm2 Time Measurements MV dec time: 0.35 sec Doppler Measurements & Calculations MV E max milan: 126.1 cm/sec Lat Peak E' Milan: 7.7 cm/sec Med Peak E' Milan: 4.7 cm/sec MV A max milan: 106.5 cm/sec E/E' lat: 16.4 E/E' med: 26.7 MV E/A: 1.2 MV V2 max: 149.7 cm/sec MV P1/2t max milan: 143.4 cm/sec Ao V2 max: 164.2 cm/sec MV max P.0 mmHg MV P1/2t: 98.4 msec Ao max P.8 mmHg MV V2 mean: 106.7 cm/sec MV mean P.9 mmHg MV dec slope: 427.1 cm/sec2 MV V2 VTI: 42.7 cm MVA(P1/2t): 2.2 cm2 AI max milan: 439.1 cm/sec LV V1 max: 108.0 cm/sec PA V2 max: 89.9 cm/sec AI max P.1 mmHg LV V1 max P.7 mmHg AI dec slope: 143.6 cm/sec2 AI P1/2t: 895.5 msec PI end-d milan: 132.1 cm/sec TR max milan: 231.6 cm/sec TR max P.6 mmHg Interpretation Summary Left ventricular systolic function is lower limits of normal. The estimated ejection fraction is 50 %. Paced septal motion. Stable appearing bioprosthetic mitral valve apparatus. Trivial transvalvular insufficiency of the mitral valve. Mild to moderate (1-2+) tricuspid valve insufficiency. Trivial pulmonic valve insufficiency. Right ventricular systolic pressure estimated to be 25 mmHg. Diastolic function is indeterminate. ICD or pacer leads identified within the right atrium ICD or pacer leads identified within the right ventricle. Ordering Physician: Dillon Hoff Referring Physician: AZUL PHILLIPS Performed By: Karely Aguilar RDCS
== END ==
PROVIDERS: PCP Internal Medicine; Referring Provider Internal Medicine Cardiovascular Disease; Visit Provider Internal Medicine Cardiovascular Disease
DX: I42.8 Other cardiomyopathies (principal)
CPT/HCPCS: 93306

== ENCOUNTER 2020-09-21 10:54 | Day surgery (SDC) | payer MEDICARE, MEDICAID, SELFPAY ==
[2020-03-30 12:59] VITALS: BMI 32.4
[2020-09-14 15:06] VITALS: BMI 32.9
--- NOTE | 2020-09-14 16:14 | RAD_ITS ---
STUDY: X-RAY CHEST REASON FOR EXAM: Female, 54 years old. PPM generator change on 09/21/20 TECHNIQUE: PA and lateral views of the chest. COMPARISON: June 11, 2016 chest x-ray FINDINGS: The lungs are clear and expanded. There is no demonstrated pleural abnormality. Sternal cerclage wires are present from a prior sternotomy. There is a visualized pacer overlying the left chest with leads overlying the heart. There is a visualize cardiac valve remain. Normal mediastinum and dee dee. Normal visualized pulmonary arteries. Normal visualized aortic arch and descending thoracic aorta. Normal visualized thoracic spine. Normal visualized ribs, clavicles, and shoulders. There is no demonstrated abnormality of the visualized soft tissue structures of the upper abdomen. RAD/Chest PA and Lateral IMPRESSION: Stable chest no visualized acute focal infiltrates status post sternotomy, cardiac valve repair pacemaker. Electronically Signed: Terra Jackson MD at 7:49 EST Tel , Service support ,
[2020-09-14 16:29] LABS: Mucous, Urine 0 SEEN /hpf (<or=2+)
[2020-09-14 17:06] LABS: Hematocrit 42.8 % (37-47); Hemoglobin 14.2 g/dL (12.0-15.0); Mean Corp Hgb Conc 33.2 g/dL (32-36); Mean Corpuscular Hgb 32.4 pg (27.0-32.0); Mean Corpuscular Volume 97.7 fL (81-99); Mean Platelet Vol. 9.9 fl (6.2-12.0); Platelet Count 245 K/mm3 (150-450); RBC Distribution Width CV 13.9 % (11.6-14.6); RBC Distribution Width SD 50.3 fl (35.1-43.9); Red Blood Count 4.38 M/mm3 (4.2-5.4); White Blood Count 7.3 K/mm3 (4.4-11.0)
[2020-09-14 17:19] LABS: International Normalized Ratio 1.5; Prothrombin Time (Protime)PT. 17.1 SECONDS (11.7-14.9)
[2020-09-14 17:32] LABS: Color, Urine Yellow (Yellow); Glucose, Dipstick Normal (Normal); Ketone-Dipstick Negative (Negative); Leukocyte Esterase-Dipstick 25 /ul (Negative); Nitrite-Dipstick Positive (Negative); Occult Blood-Urine 25 /ul (Negative); Protein-Dipstick 15 mg/dl (Negative); Urine Bilirubin Dipstick Negative (Negative); Urine Clarity Clear (Clear); Urine Urobilinogen Normal (Normal); Urine pH 6.5 (5.0 - 8.0)
[2020-09-14 17:40] LABS: Bacteria 3+ /hpf (None Seen); Red Blood Cells-Urine 0-5 SEEN /hpf (0-5); Squamous Epithelial Cells - UA 5-10 SEEN /hpf (5-10); White Blood Cells 0-5 SEEN /hpf (0-5)
[2020-09-14 17:42] LABS: Anion Gap 6 (5-15); BUN 17 mg/dL (7-18); BUN/Creat Ratio 15.9 RATIO (10-20); Calcium,Total 9.3 mg/dL (8.5-10.1); Chloride 110 mmol/L (98-107); Creatinine, Serum 1.07 mg/dL (0.55-1.02); EST Glomerular Filtration Rate 57 mL/min (>60); Est Glom Filt Rate - Afr Amer 69 mL/min (>60); Glucose 84 mg/dL (74-106); Potassium 4.1 mmol/L (3.5-5.1); Sodium Level 141 mmol/L (136-145)
--- NOTE | 2020-09-21 07:09 | HP_ITS ---
HPI HPI History of Present Illness Surgical H&P: Yes Details: FROILAN GARCÍA, is a 54 bipolar f who presents to the office today for follow-up of bioprosthetic mitral valve repair. Specifically she is a 54-year-old female with a history of hypertension, asthma, smoker less than 1 pack per day for the past 23 years, who in July 2009 when she was at near full-term gestation with her third child in the third trimester, who apparently developed a stroke at 36 weeks requiring emergent transferred [facility]. She underwent a at that time and an MRI showed past strokes in multiple vascular distributions and acute left cortical stroke. 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 Her EF was normal at that time. Carotid studies were negative. Patient was allowed to recover, until her mitral mass resolved. She then underwent a #27 mm bioprosthetic Medtronic Velasco mitral valve replacement and has been following up at the [facility]. She has been on Coumadin ever since for her CVA and paroxysmal atrial fibrillation. Patient has some mild dysarthria and weakness on her right side since her stroke. In addition she developed sick sinus syndrome in 2008 and underwent dual-chamber pacemaker for occasional third-degree AV block. She subsequently developed a failure of the RV lead and underwent subsequent ventricular lead extraction and generator change out at the [facility] on 07/01/2011. Her remote dual-chamber pacemaker evaluation 09/01/2020 show that her pacemaker is at [employer]. She is scheduled undergo generator change with Dr. Gama. She denies chest, arm, jaw, or neck discomfort. Her exercise tolerance is stable. She denies symptoms of palpitations, lightheadedness, dizziness, near syncope, or syncopal episodes. She denies edema or claudication issues. She denies orthopnea, PND, fever, chills, blood in urine, blood in stool, myalgia, or unexplainable fatigue. She acknowledges shortness of breath going up stairs. She denies any urinary symptoms. Intake Vital Signs 09/14/20 Height 5 ft 3 in 09/14/20 Weight: 186 lb 09/14/20 BMI 32.9 09/14/20 BP 176/86 H 09/14/20 Blood Pressure Location Lt brachial 09/14/20 Position Sitting 09/14/20 Respiration 16 09/14/20 Pulse 75 09/14/20 Pulse Source Monitor Intake Visit Reasons: update H & P/DAILY @ 230 Network Development Coordinator Required: No Accompanied by: None Is patient in pain?: No Allergies amoxicillin [Amoxicillin] Allergy (Verified 09/14/20 15:11) Hives latex Allergy (Verified 09/14/20 15:11) Rash lisinopril Allergy (Verified 09/14/20 15:11) Unknown Penicillins Allergy (Verified 09/14/20 15:11) Hives venom-honey bee [bee venom (honey bee)] Allergy (Verified 09/14/20 15:11) Swelling ciprofloxacin [From Cipro] Adverse Reaction (Verified 09/14/20 15:11) Nausea/Vom/Diarrhea Medications Albuterol IH (ProAir) [Proair Hfa] 1 - 2 puff INHALATION Q6H PRN PRN 06/11/16 [History Confirmed 09/14/20] Citalopram [Celexa] 10 mg PO QHS 07/26/16 [History Confirmed 09/14/20] oxybutynin chloride 10 mg tablet,extended release 24 hr 10 mg PO DAILY 02/14/19 [History Confirmed 09/14/20] valbenazine 40 mg capsule 40 mg PO DAILY 08/29/19 [History Confirmed 09/14/20] rosuvastatin 5 mg tablet 5 mg PO DAILY #90 tab 02/28/20 [Rx Confirmed 09/14/20] aripiprazole 5 mg tablet 2.5 mg PO BID tab 09/14/20 [History Confirmed 09/14/20] warfarin 5 mg tablet See Rx Instructions PO .COMPLEX 09/14/20 [History Confirmed 09/14/20] Ejection fraction %: 50 to 54 [facility] Medical History (Updated 09/14/20 @ 14:52 by Contreras Maxwell HAND LACER, HAND LACER-C) Hyperlipidemia (Chronic) Non-ischemic cardiomyopathy (Chronic) Sick sinus syndrome (Chronic) Complete heart block (Chronic) Hypertension (Chronic) Rheumatic mitral stenosis with insufficiency (Chronic) Nicotine dependence (Chronic) Paroxysmal atrial fibrillation (Chronic) CVA (cerebral vascular accident) (Chronic) Asthma (Chronic) Bipolar disorder (Chronic) Colitis (Chronic) Dysphagia as late effect of cerebrovascular accident (CVA) (Chronic) 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 classified elsewhere (Resolved) Surgical History Presence of cardiac pacemaker (Chronic 07/04/11) History of mitral valve replacement with bioprosthetic valve (Chronic 07/23/09) History of (Chronic) History of partial colectomy (Chronic) Social History (Updated 09/14/20 @ 16:02 by Contreras Maxwell HAND LACER, HAND LACER-C) Smoking Status: Current every day smoker alcohol intake: current alcohol intake frequency: holidays/special occasions only substance use type: does not use caffeine: Yes Type: carbonated beverages Number of servings: 1 ROS Const Const: Negative for fatigue, weakness, headache(s), frequent falls, difficulty sleeping or excessive sweating Eyes Eyes: Negative for loss of peripheral vision, transient loss of vision, blurry vision, double vision or tunnel vision ENT ENT: Positive for balance problems; negative for headache(s), dizziness or Nosebleed/epistaxis Cardio Chest Pain: No Palpitations: Yes feels like its: other (Occasionally when feeling anxious) Edema: None Muscle aches with walking: None Resp Respiratory: Positive for SOB with activity (stairs); negative for SOB at rest, SOB orthopnea\SOB lying down, Cough or paroxysmal nocturnal dyspnea GI GI: Negative nausea, vomiting, heartburn or black,tarry stools : Negative for hematuria Musc Musc: Positive for muscle weakness and balance problems; negative for muscle aches/ myalgia or joint pain Skin Skin: Negative non-healing lesions, rash or unusual bruising Neuro Neuro: Negative for dizziness, lightheadedness, near syncope, syncope, frequent falls, headache(s), weakness, blurry vision, double vision or lack of coordination Murtaza Hematologic/Lymphatic: Negative for easy bleeding or easy bruising Endo Endo: Negative for fatigue, excessive sweating or increased thirst/drinking Psych Psych: Negative for anxiety or depression Allergy Allergy/Immunology: Negative for hives, Negative for rash Cardiology Exam Const Appearance: cooperative, healthy appearing, comfortable and no acute distress Nutritional Appearance: well nourished and obese Orientation: alert, awake and oriented x3 Head Head: normal to inspection Ears: hearing grossly normal bilaterally Nose: external nose normal Face and Sinus: face symmetric Mouth: oral mucosae normal Eyes General: appearance normal, both eyes and all related structures Eyelids: eyelids normal EOM: EOM intact bilaterally Neck Neck: normal visual inspection and no JVD Carotids: normal carotid upstroke Chest Chest inspection: normal inspection of the chest, symmetric chest movement and normal respiratory effort; negative cough Auscultation: Bilateral: Clear to Auscultation Cardio Rate: regular rate Rhythm: regular rhythm Heart sounds: S1 normal and S2 normal; negative rub, gallop or murmur GI GI: normal to inspection and obese Neuro General: alert, awake, oriented x3 and CN's II-XI intact bilaterally Skin Skin: no rashes or lesions noted Extremities Pulses: Normal: Right Posterior Tibial Pulse, Left Posterior Tibial Pulse, Right Radial Pulse, Left Radial Pulse Lower Extremity Edema: None: Bilateral Psych Psychological: normal affect Assessment & Plan 1. History of mitral valve replacement with bioprosthetic valve Z95.3 27 mm Medtronic Velasco bioprosthesis Plan This appears stable. Most recent echocardiogram April 2020 showed ejection fraction 50%, stable appearing bioprosthetic mitral valve apparatus, and trivial transvalvular insufficiency of the mitral valve. Orders Orders: 12 Lead EKG performed by [facility] Today 2. Non-ischemic cardiomyopathy I42.8 EF 45% per echo 12/27/17 Plan Her most recent echocardiogram in April 2020 showed an ejection fraction of 50%. This appears stable. She appears to be in [place] Heart Association functional class I today. She has intolerance to lisinopril previously. She is currently not on beta-efrain or ARB. Given that her ejection fraction is low normal and that she is symptomatically doing well, we will not initiate additional medical therapy. We will continue to monitor. Depending on long-term response, further medication adjustment recommendations will be made. Orders Orders: 12 Lead EKG performed by [facility] Today BNP,B-Type NATRIURETIC PEPTIDE Today 3. Sick sinus syndrome I49.5 Plan She is status post permanent pacemaker for this. Her EKG today office shows ventricular paced rhythm at 75 bpm. Orders Orders: 12 Lead EKG performed by [facility] Today 4. Presence of cardiac pacemaker Z95.0 Implanted 07/28/2009 then RV lead extraction and Generator Change on 07/04/2011 Plan Remote dual-chamber pacemaker evaluation from 09/01/2020 showed 7 mode switch episodes, less than 1% total time and no ventricular high rate episodes since 05/20/2020. Stored electrograms for mode switch episodes show atrial tachycardia and atrial flutter with appropriate mode switch. Ventricular paced greater than 99%. Atrial paced less than 1%. Battery longevity shows ARCELIA in 1 month, battery voltage 2.59 V (2.6 V). Patient's pacemaker/ICD appears to be functioning appropriately. We will continue to monitor this with routine/scheduled follow-ups. She will proceed with generator change. Orders Orders: 12 Lead EKG performed by [facility]MS Today 5. Paroxysmal atrial fibrillation I48.0 Plan Her most recent pacemaker evaluation showed 7 mode switch episodes comprising of less than 1% of total time. She is not on rate limiting medications. This could be considered if she develops elevated heart rates. She will continue with warfarin for CVA protection. We will continue to monitor. Orders Orders: 12 Lead EKG performed by [facility]MS Today 6. Essential hypertension I10 Plan At this time, her elevated blood pressure is thought to be related to anxiety. She was asked to keep appointment later this month, post generator change, to help assess further. Based on blood pressure readings, further recommendation will be made. 7. Hyperlipidemia, unspecified hyperlipidemia type E78.5 Plan She will continue current statin medication. 8. Dyspnea on exertion R06.00 Plan She does acknowledge shortness of breath on exertion such as going up the steps. The exact etiology is unclear. Her elevated blood pressure today is thought to be related to anxiety patient is asked to monitor this routinely and keep appointment later this month to evaluate blood pressure post generator change. She was asked undergo a BNP in addition to her other laboratory testing to assess further. 1 such etiology may be related to underlying pulmonary condition given longstanding history of tobacco abuse. Orders Orders: BNP,B-Type NATRIURETIC PEPTIDE Today Plan Detail Other Orders Orders: 12 Lead EKG performed by BMS Today I44.2 Additional Comments Thank you for allowing us to participate in the patients plan of care, if you have any questions please do not hesitate to call. This note was generated using a voice recognition system and there may be incorrect words, spelling or punctuation that were not noted when reviewing the office note prior to saving. Follow Up Keep as is Coding Level of Care Code Off vis,est,level 3 Diagnoses History of mitral valve replacement with bioprosthetic valve Z95.3 Non-ischemic cardiomyopathy I42.8 Sick sinus syndrome I49.5 Presence of cardiac pacemaker Z95.0 Paroxysmal atrial fibrillation I48.0 Essential hypertension I10 ??Hypertension type: essential hypertension Hyperlipidemia, unspecified hyperlipidemia type E78.5 ??Hyperlipidemia type: unspecified Dyspnea on exertion R06.00 Coding Level of Care Code Off vis,est,level 3 Diagnoses History of mitral valve replacement with bioprosthetic valve Z95.3 Non-ischemic cardiomyopathy I42.8 Sick sinus syndrome I49.5 Presence of cardiac pacemaker Z95.0 Paroxysmal atrial fibrillation I48.0 Essential hypertension I10 ??Hypertension type: essential hypertension Hyperlipidemia, unspecified hyperlipidemia type E78.5 ??Hyperlipidemia type: unspecified Dyspnea on exertion R06.00 Supplemental Info Supplemental Information Echocardiogram from 04/14/2020: Interpretation Summary Left ventricular systolic function is lower limits of normal. The estimated ejection fraction is 50 %. Paced septal motion. Stable appearing bioprosthetic mitral valve apparatus. Trivial transvalvular insufficiency of the mitral valve. Mild to moderate (1-2+) tricuspid valve insufficiency. Trivial pulmonic valve insufficiency. Right ventricular systolic pressure estimated to be 25 mmHg. Diastolic function is indeterminate. ICD or pacer leads identified within the right atrium ICD or pacer leads identified within the right ventricle. Stress echocardiogram from 09/10/2019: Interpretation Summary The estimated ejection fraction is 45 %. Normal, adequate, modified Eloy treadmill echocardiogram. Negative for ischemia by EKG and echocardiographic criteria. Rate-pressure product of 14,848. No anginal symptoms noted. Rare PACs noted. Baseline LVEF of 45% which increased to 55 % at peak exercise. Test terminated due to fatigue and dyspnea. Decreased exercise capacity for age. Decrease sensitivity due to left bundle branch block, and poor echo windows requiring Definity agent. Patient tolerated procedure well. The study was technically difficult. Contrast injection was performed. Her echocardiogram dated 12/28/15 at the [facility] demonstrated an EF of 60%, RV was normal size, normal functioning bioprosthetic mitral valve with a peak and mean gradient of 8/5 mmHg respectively. No LV outflow tract velocity elevation despite the prosthesis encroaching on the LVOT. She underwent a treadmill echocardiogram on 09/02/16 again at the [facility] which she went 7 mets, and negative for ischemia. She is now here for cardiac care. Patient is uncertain whether she had a cardiac catheterization prior to her mitral valve replacement. Patient underwent baseline surveillance echocardiogram here at [facility] on 12/27/2017 with the following results: Interpretation Summary Mildly dilated left ventricle. The estimated ejection fraction is 45 %. Mildly dilated right ventricle. Stable appearing bioprosthetic mitral valve apparatus normal bioprosthetic peak and mean gradients. Mild (1+) tricuspid valve insufficiency. Right ventricular systolic pressure estimated to be 31 mmHg. Trivial aortic valve insufficiency. There is no comparison study available. In addition she underwent a treadmill echocardiogram to evaluate her shortness of breath on 01/26/2018 which was normal. The patient underwent pulmonary function tests on 01/17/2018 which showed: Isolated defect in diffusion capacity consistent with a pulmonary vascular disorder. Would recommend serial monitoring if amiodarone is being used. Lung volumes would be helpful. She underwent repeat surveillance echocardiogram on 02/19/2019 which showed the following: The estimated ejection fraction is 45 %. There is moderate global hypokinesis of the left ventricle. Mildly dilated right ventricle. Stable and normal functioning bioprosthetic mitral valve apparatus. Moderate (2+) tricuspid valve insufficiency. Right ventricular systolic pressure estimated to be 36 mmHg. Trivial aortic valve insufficiency. Compared to echo report dated 12/27/17, no appreciable changes noted. Diagnostics Electrocardiogram 09/14/20 Echocardiogram 04/14/20 Stress Echocardiogram 09/10/19 Pacemaker Check 09/14/20
[2020-09-21 11:06] LABS: Prothrombin Time Fingerstick 14.2 SEC (11.9-14.4)
[2020-09-21 11:23] VITALS: BMI 33.8
--- NOTE | 2020-09-21 13:23 | CL.IE_ITS ---
Patient: FROILAN GARCÍA Study Date: 09/21/2020 Performing: Jonnathan Gama MD : 1965 Age: 54 Gender: female PROCEDURES PERFORMED [id number] REMOVAL+REPLACEMENT PACER-DUAL LEAD INDICATIONS Atrial fibrillation and complete heart block Sinoatrial node dysfunction/Sick sinus syndrome PROCEDURE DETAILS The patient was brought to the Catheterization Lab in the postabsorptive nonsedated state. Infor med consent was obtained prior to the procedure. Local anesthetic was given subcutaneously to the le ft subclavian region with Lidocaine 2%. Incision was made to the left upper chest. PPM atrial lead (e xisting) was checked and tested. PPM ventricular lead (existing) was checked and tested. Device pocke t was irrigated with antibiotic. PPM generator was attached to the lead(s) and inserted into the pock et. PPM generator was then interrogated by the extrusion bender. Subcutaneous closure was completed with 3- 0 Vicryl. Skin closure was completed with 4-0 Vicryl. Steri-strips applied to left subclavicular inci mayda. Instrument, sponge, and needle counts were noted to be normal. The patient tolerated the proced ure well. Estimated Blood Loss: < 10 mls IMPLANTED / EX-PLANTED DEVICES EXPLANTED DEVICE(S): PPM Generator - Belt Operator: [employer], Model # , Serial # IMPLANTED DEVICE(S): PPM Generator - Belt Operator: [employer], Model # [id number] , Serial # [id number] DEVICE PARAMETERS DEVICE PARAMETERS: Mode - DDD lower rate - 60 upper rate - 130 Mode- DDD Lower rate- 60 Upper rate- 130 CONCLUSIONS / RECOMMENDATIONS Device Conclusions: Successful implantation of a dual chamber pacemaker battery change and replacemen t Device Recommendations: Follow up with Primary Care Physician PROCEDURE MEDICATIONS Versed 1 mg IV Fentanyl 50 mcg IV Oxygen: 2 L/min via nasal cannula Antibiotic given in appropriate timeframe. Clindamycin 900 mg IV 09/21/2020 12:19:21 Signed By Jonnathan Gama MD On 09/21/2020 13:22:06 Jonnathan Gama MD
== END 2020-09-21 14:50 | disposition home or self-care (01) ==
LOC: CLSP 10:56
PROVIDERS: Internal Medicine Cardiovascular Disease; Nurse Practitioner Family; PCP Internal Medicine; Referring Provider Internal Medicine Cardiovascular Disease; Visit Provider Internal Medicine Cardiovascular Disease
DX: Z45.010 Encounter for checking and testing of cardiac pacemaker pulse generator [battery] (principal); I49.5 Sick sinus syndrome; I48.92 Unspecified atrial flutter; I48.0 Paroxysmal atrial fibrillation; I44.2 Atrioventricular block, complete; I10 Essential (primary) hypertension; I42.8 Other cardiomyopathies; F31.9 Bipolar disorder, unspecified; E78.5 Hyperlipidemia, unspecified; J45.909 Unspecified asthma, uncomplicated; Z86.73 Personal history of transient ischemic attack (TIA), and cerebral infarction without residual deficits; Z87.19 Personal history of other diseases of the digestive system; Z95.3 Presence of xenogenic heart valve; Z90.49 Acquired absence of other specified parts of digestive tract; Z79.01 Long term (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 anticoagulants; Z79.899 Other long term (current) drug therapy; F17.200 Nicotine dependence, unspecified, uncomplicated
CPT/HCPCS: 33228; 36415; 36416; 71046; 80048; 81001; 83880; 85027; 85610; 99152; 99153; J7040; J7050

== ENCOUNTER 2020-10-07 20:33 | Observation (INO) | payer MEDICARE, MEDICAID, SELFPAY ==
[2020-10-07 20:35] VITALS: PULSE 96; RESP 20; TEMP 36.9; O2SAT 97; BMI 34.3
--- NOTE | 2020-10-07 21:55 | CT_ITS ---
STUDY: CT BRAIN WITHOUT CONTRAST REASON FOR EXAM: Female, 55 years old. JITTERY, WEAKNESS, SLURRED SPEECH X 2 DAYS. H/O CVA RADIATION DOSAGE (If Supplied By Facility): CTDIvol = ( 44.99 ) mGy, DLP = ( 779.24 ) mGycm TECHNIQUE: Transaxial CT imaging of the brain was performed without administration of intravenous contrast material. Individualized dose optimization techniques were used for this CT. COMPARISON: Head CT dated June 11, 2016 FINDINGS: Normal soft tissue structures. Normal calvarium. There is mild cerebral atrophy with widening of the extra-axial spaces and ventricular dilatation. There are areas of decreased attenuation within the white matter tracts of the supratentorial brain, consistent with microvascular disease changes. Multiple small areas of parenchymal loss are reidentified in the bilateral cerebral hemispheres compatible with sequela from previous infarcts. The most prominent region is in the left parietal lobe. Normal brainstem. Normal cerebellum. There is no intracranial hemorrhage. There are no findings of an acute ischemic infarction. Normal visualized paranasal sinuses. CT/Brain/Head without Contrast IMPRESSION: 1. Chronic involutional changes of the brain. 2. Multiple old infarcts Electronically Signed: Deandre De Paz MD at 22:32 EST , Service support ,
--- NOTE | 2020-10-07 21:56 | ED.VIS.GEN ---
History of Present Illness Chief Complaint: Weakness Narrative: Patient is a 55-year-old female who presents with concern for a stroke. She does have a prior history of stroke. She does have a pacemaker, history of mitral valve replacement, atrial fibrillation. She states for about 1 week she feels off balance and feels difficulty walking. She states she really has to think about what I want to say. She also complains of a headache. No fevers cough chest pain difficulty breathing vomiting diarrhea. Past Medical History - Allergies and Home Meds Allergies/Adverse Reactions: Allergies amoxicillin [Amoxicillin] Allergy (Verified 10/07/20 20:34) Hives latex Allergy (Verified 10/07/20 20:34) Rash lisinopril Allergy (Verified 10/07/20 20:34) Unknown Penicillins Allergy (Verified 10/07/20 20:34) Hives venom-honey bee [bee venom (honey bee)] Allergy (Verified 10/07/20 20:34) Swelling ciprofloxacin [From Cipro] Adverse Reaction (Verified 10/07/20 20:34) Nausea/Vom/Diarrhea Primary Care Physician: Louis Dobbs MD [Primary Care Provider] - Past Medical History: - - Stroke, A. fib, mitral valve replacement Surgical History: coronary bypass surgery Smoking Status: Current every day smoker - Family History Maternal Family History: Reports: - - No coronary artery disease Paternal Family History: Reports: - - No coronary artery disease Review of Systems All systems negative except as indicated General: Denies: Fever Eyes: Denies: Visual changes - bilaterally ENT: Denies: Bilateral ear pain Cardiovascular: Denies: Chest pain Respiratory: Denies: Dyspnea Gastrointestinal: Denies: Nausea, Vomiting Musculoskeletal: Denies: Myalgias, Arthralgias Skin: Denies: Rash Neurological: Reports: Headache, - - Difficulty walking, difficulty speaking Hematologic: Denies: Easy bruising Allergy: Denies: Uticaria Physical Exam Vital Signs/Narrative: Vital Signs Temp Pulse Resp Pulse Ox 10/07/20 20:35 98.4 F 96 20 H 97 Inital Vital Signs reviewed: Yes General: Well nourished, Well developed Head: Normocephalic Eyes: EOMI ENT: Moist mucous membranes Neck: Supple Cardiovascular: Regular rate, Regular rhythm Respiratory: No distress, CTA bilaterally Abdomen: Soft, Nontender Skin: Normal color Neurological: Alert, - - Normal strength, normal sensation, no focal or lateralizing neurological deficits, NIH stroke scale is 0 Psychological: Normal affect Diagnostic/Tx/Re-eval Impressions Brain CT 10/07/20 21:55 IMPRESSION: 1. Chronic involutional changes of the brain. 2. Multiple old infarcts Electronically Signed: Deandre De Paz MD at 22:32 EST , Service support , 10/07/20 21:55 Brain/Head without Contrast [CT] Stat Laboratory Results 10/07/20 10/07/20 10/07/20 20:53 20:53 20:53 WBC 6.8 RBC 4.36 Hgb 14.2 Hct 43.5 MCV 99.8 H MCH 32.6 H MCHC 32.6 RDW Std Deviation 54.3 H RDW Coeff of Jonathon 14.8 H Plt Count 269 MPV 9.7 Immature Gran % (Auto) 0.300 Neut % (Auto) 55.4 Lymph % (Auto) 30.5 [place] % (Auto) 9.2 Eos % (Auto) 3.9 Baso % (Auto) 0.7 Absolute Neuts (auto) 3.7 Absolute Lymphs (auto) 2.06 Nucleated RBC % 0 PT Cancelled INR Cancelled Sodium Cancelled Potassium Cancelled Chloride Cancelled Carbon Dioxide Cancelled Anion Gap Cancelled BUN Cancelled Creatinine Cancelled Estim Creat Clear Calc Cancelled Est GFR (MDRD) Af Amer Cancelled Est GFR (MDRD) Non-Af Cancelled BUN/Creatinine Ratio Cancelled Glucose Cancelled Calcium Cancelled Troponin I Cancelled 10/07/20 10/07/20 22:43 22:43 WBC RBC Hgb Hct MCV MCH MCHC RDW Std Deviation RDW Coeff of Jonathon Plt Count MPV Immature Gran % (Auto) Neut % (Auto) Lymph % (Auto) [place] % (Auto) Eos % (Auto) Baso % (Auto) Absolute Neuts (auto) Absolute Lymphs (auto) Nucleated RBC % PT 22.6 H INR 2.1 Sodium 142 Potassium 3.7 Chloride 109 H Carbon Dioxide 26.0 Anion Gap 7 BUN 13 Creatinine 1.03 H Estim Creat Clear Calc 52.25 Est GFR (MDRD) Af Amer 72 Est GFR (MDRD) Non-Af 60 BUN/Creatinine Ratio 12.6 Glucose 104 Calcium 9.3 Troponin I < 0.015 - Medical Decision Making EKG shows an atrial sensed ventricularly paced rhythm at a rate of 97. Serum laboratory studies are unremarkable. CT the head shows multiple old infarcts no acute findings. Given patient's presenting symptoms with history of prior stroke I do feel she will need further evaluation to include an MRI of the brain. Patient discussed with hospitalist and admitted. ED Disposition - Plan for ED Patient: Disposition: Acute Care Hospital [facility] Diagnosis: Dysequilibrium, History of stroke Referrals: Louis Dobbs MD [Primary Care Provider] -
[2020-10-07 21:57] VITALS: BP 181/91; PULSE 94; RESP 20; O2SAT 95
[2020-10-07 22:09] LABS: Absolute Lymphocyte Count 2.06 X10^3/uL (0.83-4.51); Absolute Neutrophil Count 3.7 X10^3/uL (2.0-7.7); Basophil# 0.05 X10^3/uL; Basophil% 0.7 % (0-1); Eosinophil# 0.26 X10^3/uL; Eosinophils% 3.9 % (0-5); Hematocrit 43.5 % (37-47); Hemoglobin 14.2 g/dL (12.0-15.0); Lymphocyte # 2.06 X10^3/ul (4.0); Lymphocyte % 30.5 % (19-41); Mean Corp Hgb Conc 32.6 g/dL (32-36); Mean Corpuscular Hgb 32.6 pg (27.0-32.0); Mean Corpuscular Volume 99.8 fL (81-99); Mean Platelet Vol. 9.7 fl (6.2-12.0); Monocyte# 0.62 X10^3/uL; Monocyte% 9.2 % (0-10); NRBC Flagged by Analyzer 0 % (0-5); Neutrophil # 3.74 X10^3/uL (2.7-7.7); Neutrophil % 55.4 % (47-70); Platelet Count 269 K/mm3 (150-450); RBC Distribution Width CV 14.8 % (11.6-14.6); RBC Distribution Width SD 54.3 fl (35.1-43.9); Red Blood Count 4.36 M/mm3 (4.2-5.4); White Blood Count 6.8 K/mm3 (4.4-11.0)
[2020-10-07] MEDS: Acetaminophen 325 MG Tablet 650 MG PO (22:59)
[2020-10-07] MEDS: LORazepam 2 MG/ML Syringe 1 MG IV (23:00)
--- NOTE | 2020-10-07 23:00 | EKG12_ITS ---
Test Reason : WEAKNESS Blood Pressure : / mmHG Vent. Rate : 097 BPM Atrial Rate : 097 BPM P-R Int : 180 ms QRS Dur : 162 ms QT Int : 400 ms P-R-T Axes : 082 -74 086 degrees QTc Int : 508 ms Atrial-sensed ventricular-paced rhythm Abnormal ECG Confirmed by ALVARO BAZAN, DUONG ([id number]), art editor MAYLIN ARGUELLO ([id number]) on 10/12/2020 2:31:24 PM Referred By: DANNIE Confirmed By:DUONG JOHN MD
[2020-10-07 23:07] LABS: International Normalized Ratio 2.1; Prothrombin Time (Protime)PT. 22.6 SECONDS (11.7-14.9)
[2020-10-07 23:10] LABS: Anion Gap 7 (5-15); BUN 13 mg/dL (7-18); BUN/Creat Ratio 12.6 RATIO (10-20); Calcium,Total 9.3 mg/dL (8.5-10.1); Chloride 109 mmol/L (98-107); Creatinine, Serum 1.03 mg/dL (0.55-1.02); EST Glomerular Filtration Rate 60 mL/min (>60); Est Glom Filt Rate - Afr Amer 72 mL/min (>60); Estimated Creatinine Clearance 52.25 ml/min; Glucose 104 mg/dL (74-106); Potassium 3.7 mmol/L (3.5-5.1); Sodium Level 142 mmol/L (136-145)
[2020-10-07 23:18] VITALS: BP 161/99; PULSE 90; RESP 19; O2SAT 93
--- NOTE | 2020-10-07 23:58 | PCM.HP.STD ---
Problem List (1) Stroke-like symptoms Status: Acute (2) Dysequilibrium Status: Acute (3) History of stroke Status: Chronic (4) Hyperlipidemia Status: Chronic Qualifiers: Hyperlipidemia type: unspecified Qualified Code(s): E78.5 - Hyperlipidemia, unspecified (5) Non-ischemic cardiomyopathy Status: Chronic Comment: EF 45% per echo 12/27/17 (6) Sick sinus syndrome Status: Chronic (7) Presence of cardiac pacemaker Status: Chronic Comment: Implanted 07/28/2009 then RV lead extraction and Generator Change on 07/04/2011, 09/21/2020 (8) Complete heart block Status: Chronic (9) History of mitral valve replacement with bioprosthetic valve Status: Chronic Comment: 27 mm Medtronic Velasco bioprosthesis (10) Hypertension Status: Chronic Qualifiers: Hypertension type: essential hypertension Qualified Code(s): I10 - Essential (primary) hypertension (11) Rheumatic mitral stenosis with insufficiency Status: Chronic (12) Nicotine dependence Status: Chronic (13) Paroxysmal atrial fibrillation Status: Chronic (14) CVA (cerebral vascular accident) Status: Chronic Qualifiers: CVA mechanism: embolism Laterality of affected vessel: unspecified Comment: Left Mid Cerebral Artery, Right frontal and Bilateral Parietal Regions History of Present Illness Date of Admission: 10/07/20 Chief Complaint: Difficulty getting up The patient is a 55 year old F with a significant history of multiple strokes; heart failure with reduced ejection fraction; and permanent pacemaker with ICD who presents emergency department because he is unable to get up and move. Associated with her symptom is headache; and jitteriness. She also has difficulty articulating her train of thoughts. Her symptoms started about a week ago. Past Medical History Past Medical History (Chronic Problems): Chronic Problems (Last Reviewed 10/08/20 @ 00:[address] Jayson Beltran MD) History of stroke (Chronic) Hyperlipidemia (Chronic) Non-ischemic cardiomyopathy (Chronic) EF 45% per echo 12/27/17 Sick sinus syndrome (Chronic) Presence of cardiac pacemaker (Chronic 09/21/20) Implanted 07/28/2009 then RV lead extraction and Generator Change on 07/04/2011, 09/21/2020 Complete heart block (Chronic) History of mitral valve replacement with bioprosthetic valve (Chronic 07/23/09) 27 mm Medtronic Velasco bioprosthesis Hypertension (Chronic) Rheumatic mitral stenosis with insufficiency (Chronic) Nicotine dependence (Chronic) Paroxysmal atrial fibrillation (Chronic) CVA (cerebral vascular accident) (Chronic) Left Mid Cerebral Artery, Right frontal and Bilateral Parietal Regions Medical History: Medical History (Last Reviewed 10/08/20 @ 02:[address] Jayson Beltran MD) Hyperlipidemia (Chronic) E78.5 Non-ischemic cardiomyopathy (Chronic) I42.8 EF 45% per echo 12/27/17 Sick sinus syndrome (Chronic) I49.5 Complete heart block (Chronic) I44.2 Hypertension (Chronic) I10 Rheumatic mitral stenosis with insufficiency (Chronic) I05.2 Nicotine dependence (Chronic) F17.200 Paroxysmal atrial fibrillation (Chronic) I48.0 CVA (cerebral vascular accident) (Chronic) I63.9 Left Mid Cerebral Artery, Right frontal and Bilateral Parietal Regions Asthma J45.909 Bipolar disorder F31.9 Colitis K52.9 Dysphagia as late effect of cerebrovascular accident (CVA) I69.391 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 classified elsewhere I39 Allergies amoxicillin [Amoxicillin] Allergy (Verified 10/07/20 20:34) Hives latex Allergy (Verified 10/07/20 20:34) Rash lisinopril Allergy (Verified 10/07/20 20:34) Unknown Penicillins Allergy (Verified 10/07/20 20:34) Hives venom-honey bee [bee venom (honey bee)] Allergy (Verified 10/07/20 20:34) Swelling ciprofloxacin [From Cipro] Adverse Reaction (Verified 10/07/20 20:34) Nausea/Vom/Diarrhea Home Medications: Ambulatory Orders Medication Instructions Recorded Albuterol IH (ProAir) [Proair Hfa] 1 - 2 puff INHALATION Q6H PRN PRN 06/11/16 Citalopram [Celexa] 10 mg PO QHS 07/26/16 oxybutynin chloride 10 mg 10 mg PO DAILY 02/14/19 tablet,extended release 24 hr valbenazine 40 mg capsule 40 mg PO DAILY 08/29/19 rosuvastatin 5 mg tablet 5 mg PO DAILY #90 tab 02/28/20 aripiprazole 5 mg tablet 2.5 mg PO BID tab 09/14/20 warfarin 5 mg tablet See Rx Instructions PO .COMPLEX 09/14/20 Surgical History: Surgical History (Last Reviewed 10/08/20 @ 02:[address] Jayson Beltran MD) Presence of cardiac pacemaker (Chronic) Onset Date: 09/21/20 Z95.0 Implanted 07/28/2009 then RV lead extraction and Generator Change on 07/04/2011, 09/21/2020 History of mitral valve replacement with bioprosthetic valve (Chronic) Onset Date: 07/23/09 Z95.3 27 mm Medtronic Velasco bioprosthesis History of Z98.891 History of partial colectomy Z90.49 Surgical History: coronary bypass surgery Smoking Status: Current every day smoker Tobacco Use: Cigarettes - *Family History Maternal History Items: - - No coronary artery disease Paternal History Items: - - No coronary artery disease Review of Systems Constitutional: Denies: Chills, Fever, Weight Change HEENT: Denies: Head Aches, Sinus Congestion, Sinus Drainage Cardiovascular: Denies: Chest Pain, Palpitations Respiratory: Denies: Cough, Shortness of breath at rest, Sputum production Gastrointestinal: Denies: Abdominal Pain, Nausea, Vomiting Genitourinary: Denies: Dysuria Musculoskeletal: Denies: Joint Pain, Joint Tenderness Skin: Denies: Rash, Wounds Neurological: Denies: Focal weakness, Numbness, Tingling Psychiatric: Denies: Anxiety, Depression, Homicidal Ideations, Suicidal Ideations Hematologic/ Lymphatic: Denies: Easy Bruising, Easy Bleeding VTE Information - Inpt Only VTE Present on Admission: No VTE Mechan Device Prophylaxis: None VTE Pharm Prophylaxis ordered?: No Reason prophylaxis not ordered:: Treatment Not Indicated - Coumadin for A. fib continued Patient Problems: Active and Suspected Problems (Last Reviewed 10/08/20 @ 00:[address] Jayson Beltran MD) Dysequilibrium (Acute) Stroke-like symptoms (Acute) - Physical Exam Vitals/I&O's: Vital Signs Temp Pulse Resp BP Pulse Ox 98.4 F 90 19 H 161/99 H 93 10/07/20 20:35 10/07/20 23:18 10/07/20 23:18 10/07/20 23:18 10/07/20 23:18 Oxygen Delivery Method Room Air Weight: 88 kg Body Mass Index (BMI) 34.3 Finger Stick Blood Glucose 93 General: Alert, Oriented x3, Cooperative HEENT: Atraumatic, PERRLA, EOMI, Normocephalic Neck: Supple, No JVD, Negative Carotid Bruits Lungs: Clear to auscultation, Normal air movement Cardiovascular: Regular rate, No murmurs Abdomen: Bowel Sounds Present, Soft, Non Tender Extremities: No edema, Capillary Refill Less than 3 Seconds Skin: No rashes, No breakdown Musculoskeletal: No Tenderness to Palpation of Joints or Extremities Neurological: Cranial nerves II-XII grossly intact, - - Decreased and equal strength in all 4 extremities. Reflex in left knee is more pronounced than right knee. Psych/Mental Status: Normal Affect, Appropriate Laboratory Results 10/07/20 20:53: WBC 6.8, RBC 4.36, Hgb 14.2, Hct 43.5, MCV 99.8 H, MCH 32.6 H, MCHC 32.6, RDW Std Deviation 54.3 H, RDW Coeff of Jonathon 14.8 H, Plt Count 269, MPV 9.7, Immature Gran % (Auto) 0.300, Neut % (Auto) 55.4, Lymph % (Auto) 30.5, [place] % (Auto) 9.2, Eos % (Auto) 3.9, Baso % (Auto) 0.7, Absolute Neuts (auto) 3.7, Absolute Lymphs (auto) 2.06, Nucleated RBC % 0 10/07/20 20:53: PT Cancelled, INR Cancelled 10/07/20 20:53: Sodium Cancelled, Potassium Cancelled, Chloride Cancelled, Carbon Dioxide Cancelled, Anion Gap Cancelled, BUN Cancelled, Creatinine Cancelled, Estim Creat Clear Calc Cancelled, Est GFR (MDRD) Af Amer Cancelled, Est GFR (MDRD) Non-Af Cancelled, BUN/Creatinine Ratio Cancelled, Glucose Cancelled, Calcium Cancelled, Troponin I Cancelled 10/07/20 22:43: Sodium 142, Potassium 3.7, Chloride 109 H, Carbon Dioxide 26.0, Anion Gap 7, BUN 13, Creatinine 1.03 H, Estim Creat Clear Calc 52.25, Est GFR (MDRD) Af Amer 72, Est GFR (MDRD) Non-Af 60, BUN/Creatinine Ratio 12.6, Glucose 104, Calcium 9.3, Troponin I < 0.015 10/07/20 22:43: PT 22.6 H, INR 2.1 Assessment/Plan All Active Problems (Last Reviewed 10/08/20 @ 00:[address] Jayson Beltran MD) Dysequilibrium (Acute) Stroke-like symptoms (Acute) The patient is a 55 year old F with a significant history of multiple strokes; heart failure with reduced ejection fraction; and permanent pacemaker with ICD who presents emergency department because he is unable to get up and move; has headache; and jitteriness; and word finding difficulty. Strokelike symptoms/Disequilibrium CT of the head was unrevealing -Check Hba1c, Lipid level Physical therapy, occupational therapy and speech therapy to work with patient. N.p.o. until bedside swallow eval. Warfarin continued Statin continued Outside window of permissive HTN MRI/MRA of head; brain; and neck. Echocardiogram ordered. Last echocardiogram was on 04/14/2020. Ejection fraction was 50% at that time. Patient had mild to moderate tricuspid valve insufficiency. Right ventricular systolic pressure was 25. Elevated blood pressure without diagnosis of hypertension PRN Hydralazine ordered. Paroxysmal A. fib Coumadin continued Trend INR and dose Coumadin per INR. Heart failure with reduced ejection fraction EF 45% per echo 12/27/17 per review of records. Last echocardiogram as above. Stable DVT prophylaxis Warfarin continued OBSV E&M: [id number] Initial observation care L2
[2020-10-08] VITALS (13 sets, daily range): BP systolic 138–165; BP diastolic 63–98; PULSE 80–96; RESP 16–18; TEMP 36.3–36.9; O2SAT 93–96; BMI 32.1
--- NOTE | 2020-10-08 01:21 | ECHOD_ITS ---
Reason For Study: TIA Procedure This was a 2D Doppler, Color Flow transthoracic echocardiogram. Exam performed portable in patient room. Left Ventricle The 3D full volume ejection fraction is 40-45 %. Right Ventricle Normal systolic function. ICD or pacer leads noted in RA/RV. Mitral Valve small to moderate size echogenic mass attached to the bioprothetic MV with trivial-mild transvalvular insufficiency of the mitral valve., Need further evaluation with SHARI/consult ID and CT surgery. Tricuspid Valve Moderately severe (3+) tricuspid valve insufficiency. Aortic Valve Trivial aortic valve insufficiency. Pulmonic Valve The pulmonic valve is not well visualized. Great Vessels Normal aortic root. Pericardium/Pleural No pericardial effusion. Medication Performed a rapid injection of agitated mix of 9 cc saline and 1cc air to assess for atrial septal defect. MMode/2D Measurements & Calculations LVIDd: 4.8 cm IVSd: 0.96 cm Ao root diam: 3.0 cm LVIDs: 2.9 cm LVPWd: 0.91 cm RVDd: 3.7 cm FS: 38.2 % LAV(MOD-sp2): 68.4 ml LA dimension(2D): 4.3 cm Time Measurements MV dec time: 0.22 sec Doppler Measurements & Calculations MV E max milan: 138.7 cm/sec Lat Peak E' [place]: 6.0 cm/sec Med Peak E' [place]: 7.0 cm/sec MV A max milan: 163.8 cm/sec E/E' lat: 23.1 E/E' med: 19.7 MV E/A: 0.85 MV V2 max: 160.9 cm/sec Ao V2 max: 171.0 cm/sec AI max milan: 446.9 cm/sec MV max P.4 mmHg Ao max P.7 mmHg AI max P.9 mmHg MV V2 mean: 119.6 cm/sec Ao V2 mean: 120.2 cm/sec MV mean P.1 mmHg Ao mean P.4 mmHg AI dec slope: 375.3 cm/sec2 MV V2 VTI: 26.9 cm Ao V2 VTI: 30.0 cm AI P1/2t: 348.8 msec LV V1 max: 131.0 cm/sec TR max milan: 282.2 cm/sec MV P1/2t-pr_phl: 43.7 msec LV V1 max P.9 mmHg TR max P.9 mmHg LV V1 mean P.6 mmHg LV V1 mean: 88.5 cm/sec LV V1 VTI: 26.0 cm Interpretation Summary Moderate LV systolic Dysfunction The ejection fraction is 40-45 %. small to moderate size echogenic mass attached to the bioprothetic MV with trivial-mild transvalvular insufficiency of the mitral valve., Need further evaluation with SHARI/consult ID and CT surgery ICD or pacer leads noted in RA/RV Moderately severe (3+) tricuspid valve insufficiency. No pericardial effusion. Negative Bubble study Recommendation: SHARI/ID consult and CTsurgery consult post SHARI. Ordering Physician: Jayson Beltran Performed By: Karina Gillis, RDCS, RVT
[2020-10-08 06:57] LABS: Absolute Lymphocyte Count 1.97 X10^3/uL (0.83-4.51); Basophil# 0.06 X10^3/uL; Eosinophil# 0.34 X10^3/uL; Eosinophils% 5.7 % (0-5); Hematocrit 40.2 % (37-47); Lymphocyte # 1.97 X10^3/ul (4.0); Lymphocyte % 33.2 % (19-41); Mean Corp Hgb Conc 32.3 g/dL (32-36); Mean Corpuscular Hgb 32.2 pg (27.0-32.0); Mean Corpuscular Volume 99.5 fL (81-99); Mean Platelet Vol. 9.5 fl (6.2-12.0); Monocyte# 0.54 X10^3/uL; Monocyte% 9.1 % (0-10); NRBC Flagged by Analyzer 0 % (0-5); Neutrophil % 50.7 % (47-70); Platelet Count 245 K/mm3 (150-450); RBC Distribution Width CV 14.6 % (11.6-14.6); RBC Distribution Width SD 53.1 fl (35.1-43.9); Red Blood Count 4.04 M/mm3 (4.2-5.4); White Blood Count 5.9 K/mm3 (4.4-11.0)
[2020-10-08 07:25] LABS: Anion Gap 4 (5-15); BUN 11 mg/dL (7-18); Calcium,Total 8.9 mg/dL (8.5-10.1); Chloride 111 mmol/L (98-107); Cholesterol 125 mg/dL (200); EST Glomerular Filtration Rate 62 mL/min (>60); Est Glom Filt Rate - Afr Amer 75 mL/min (>60); Estimated Creatinine Clearance 53.82 ml/min; Glucose 86 mg/dL (74-106); High Density Lipoprotein 60 mg/dL; Potassium 3.6 mmol/L (3.5-5.1); Sodium Level 141 mmol/L (136-145); Triglycerides 72 mg/dL; Very Low Density Lipoprotein 14 mg/dL (5-40)
[2020-10-08 07:58] LABS: Hemoglobin A1c 5.4 % (3.8-5.6)
[2020-10-08] MEDS: ARIPiprazole 5 MG Tablet 2.5 MG PO ×2 (08:38→21:07)
[2020-10-08] MEDS: Tolterodine Tartrate 2 MG CAP.SA PO (08:38)
--- NOTE | 2020-10-08 11:26 | CT_ITS ---
STUDY: CTA HEAD AND NECK WITH CONTRAST REASON FOR EXAM: Female, 55 years old. Suspected CVA, h/o recurrent CVA RADIATION DOSAGE (If Supplied By Facility): CTDIvol = ( 26.72 ) mGy, DLP = ( 1480.82 ) mGycm TECHNIQUE: CT angiography was performed with a multi-detector CT scanner. Data acquisition was obtained from the skull base through the vertex following intravenous administration of IV 100mL Isovue-370. MIP images were reconstructed from the axial data set. Post-processing of the angiographic images was performed, with multiplanar reformation and 3D reconstruction. Individualized dose optimization techniques were used for this CT. COMPARISON: No relevant priors. FINDINGS: Normal bilateral petrous carotid arteries. Normal right cavernous carotid artery with a normal supraclinoid bifurcation. Normal left cavernous carotid artery with a normal supraclinoid bifurcation. 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 Normal left A1 segments of the anterior cerebral artery. Normal intact anterior communicating artery (ACOM). Normal bilateral A2 segments of the anterior cerebral arteries. Normal right M1 and M2 segments of the middle cerebral arteries, with a normal M1 bifurcation. Normal left M1 and M2 segments of the middle cerebral arteries, with a normal M1 bifurcation. Normal right posterior communicating artery (PCOM). Normal left posterior communicating artery (PCOM). Normal bilateral vertebral arteries. Normal basilar artery with a normal basilar bifurcation. The visualized bilateral superior cerebellar (SCA) arteries are normal. Normal bilateral P1, P2 and visualized P3 segments of the posterior cerebral arteries. There is no demonstrated aneurysm of the [place]. Stable multiple old infarcts. AORTIC ARCH: There is atherosclerotic calcific plaque formation of the aortic arch and great vessels arising from the aortic arch, without a hemodynamically significant stenosis. There is a normal origin of the brachiocephalic, left common carotid, and left subclavian arteries. RIGHT CAROTID ARTERIES: Normal right common carotid artery (CCA). Normal right common carotid bulb. Normal origin of the right internal carotid (ICA) artery without a hemodynamically significant stenosis. Normal visualized cervical portion of the right internal carotid artery. Normal origin of the right external carotid artery (ECA). LEFT CAROTID ARTERIES: Normal left common carotid artery (CCA). Normal left common carotid bulb. Normal origin of the left internal carotid (ICA) artery without a hemodynamically significant stenosis. Normal visualized cervical portion of the left internal carotid artery. Normal origin of the left external carotid artery (ECA). VERTEBRAL ARTERIES: There is evidence of a 5.2 mm aneurysm at the basilar tip. 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 Electronically Signed: Miguel Lau MD at 11:58 EST , Service support ,
[2020-10-08 11:53] LABS: Prothrombin Time (Protime)PT. 21.8 SECONDS (11.7-14.9)
--- NOTE | 2020-10-08 13:20 | TELEMED_ITS ---
[facility] Telemed has confirmed receipt of a request for visit. This document confirms receipt of the order initiating the consult. To find the results of the consultation, please view the patient's reports for the scanned Telemed Consult.
--- NOTE | 2020-10-08 13:30 | CASEMGMT ---
Social Work SW met with pt in room and introduced self and role of SW. Pt presenting with stroke like symptoms. PHQ9 depression assessment completed with pt score of 08/02. Pt states that she [facility] and is on 3 medications for mental health issues. Pt denies depression is worsened at this time and has no thoughts of harming herself nor concerns with returning home. SW explained association of stroke and depressions and encouraged pt that if she feels a decline in mood to contact the [facility]. No further SW needs at this time. ERROL Wooten
[2020-10-08] MEDS: 0.9% Normal Saline 1,000 ML 75 ML IV (14:12)
--- NOTE | 2020-10-08 14:45 | CASEMGMT ---
According to the [facility] website, the following are in-network tertiary facilities: [facility], [place], [facility], [facility], [facility], [facility], and . Arsenio COSTELLO CM
--- NOTE | 2020-10-08 14:57 | CON.PCM_ITS ---
Reason for Consult Date of Consultation: 10/08/20 History of Present Illness: The patient is a 55 year old F [] Past Medical History Allergies/Adverse Reactions: Allergies amoxicillin [Amoxicillin] Allergy (Verified 10/08/20 01:40) Hives latex Allergy (Verified 10/08/20 01:40) Rash lisinopril Allergy (Verified 10/08/20 01:40) Unknown Penicillins Allergy (Verified 10/08/20 01:40) Hives venom-honey bee [bee venom (honey bee)] Allergy (Verified 10/08/20 01:40) Swelling ciprofloxacin [From Cipro] Adverse Reaction (Verified 10/08/20 01:40) Nausea/Vom/Diarrhea Home Medications: Ambulatory Orders Medication Instructions Recorded Albuterol IH (ProAir) [Proair Hfa] 1 - 2 puff INHALATION Q6H PRN PRN 06/11/16 Citalopram [Celexa] 10 mg PO QHS 07/26/16 oxybutynin chloride 10 mg 10 mg PO DAILY 02/14/19 tablet,extended release 24 hr valbenazine 40 mg capsule 40 mg PO DAILY 08/29/19 rosuvastatin 5 mg tablet 5 mg PO DAILY #90 tab 02/28/20 aripiprazole 5 mg tablet 2.5 mg PO BID tab 09/14/20 warfarin 5 mg tablet See Rx Instructions PO .COMPLEX 09/14/20 Past Medical History (Chronic Problems): Chronic Problems (Last Reviewed 10/08/20 @ 05:54 by Wendy Astorga RN) History of stroke (Chronic) Hyperlipidemia (Chronic) Non-ischemic cardiomyopathy (Chronic) EF 45% per echo 12/27/17 Sick sinus syndrome (Chronic) Presence of cardiac pacemaker (Chronic 09/21/20) Implanted 07/28/2009 then RV lead extraction and Generator Change on 07/04/2011, 09/21/2020 Complete heart block (Chronic) History of mitral valve replacement with bioprosthetic valve (Chronic 07/23/09) 27 mm Medtronic Velasco bioprosthesis Hypertension (Chronic) Rheumatic mitral stenosis with insufficiency (Chronic) Nicotine dependence (Chronic) Paroxysmal atrial fibrillation (Chronic) CVA (cerebral vascular accident) (Chronic) Left Mid Cerebral Artery, Right frontal and Bilateral Parietal Regions Surgical History: coronary bypass surgery - *Family History Maternal History Items: - - No coronary artery disease Paternal History Items: - - No coronary artery disease Smoking Status: Current every day smoker Tobacco Use: Cigarettes Objective: Vital Signs Temp Pulse Resp BP Pulse Ox 98 F 92 18 158/98 H 94 10/08/20 12:25 10/08/20 12:25 10/08/20 12:25 10/08/20 12:25 10/08/20 12:25 Oxygen Delivery Method Room Air Weight: 181 lb 7.047 oz Body Mass Index (BMI) 32.1 Finger Stick Blood Glucose 93 Intake and Output for Last 24 Hours 10/06/20 10/07/20 10/08/20 23:59 23:59 23:59 Intake Total 250 / 250 Balance 250 / 250 General: Awake, Alert, Oriented x 3 HEENT: PERRL, EOMI, Sclera Non Icteric Neck: Supple, Good ROM, No Lymph Node Enlargement Lungs: Clear to auscultation Cardiovascular: Normal S1, Normal S2, No Murmurs, No Rubs, No Gallops 10/07/20 20:53: WBC 6.8, RBC 4.36, Hgb 14.2, Hct 43.5, MCV 99.8 H, MCH 32.6 H, MCHC 32.6, Plt Count 269, MPV 9.7, Immature Gran % (Auto) 0.300, Neut % (Auto) 55.4, Lymph % (Auto) 30.5, [place] % (Auto) 9.2, Eos % (Auto) 3.9, Baso % (Auto) 0.7, Absolute Neuts (auto) 3.7, Nucleated RBC % 0 10/07/20 20:53: PT Cancelled, INR Cancelled 10/07/20 20:53: Sodium Cancelled, Potassium Cancelled, Chloride Cancelled, Carbon Dioxide Cancelled, Anion Gap Cancelled, BUN Cancelled, Creatinine Cancelled, Est GFR (MDRD) Af Amer Cancelled, Est GFR (MDRD) Non-Af Cancelled, BUN/Creatinine Ratio Cancelled, Glucose Cancelled, Calcium Cancelled, Troponin I Cancelled 10/07/20 22:43: Sodium 142, Potassium 3.7, Chloride 109 H, Carbon Dioxide 26.0, Anion Gap 7, BUN 13, Creatinine 1.03 H, Est GFR (MDRD) Af Amer 72, Est GFR (MDRD) Non-Af 60, BUN/Creatinine Ratio 12.6, Glucose 104, Calcium 9.3, Troponin I < 0.015 10/07/20 22:43: PT 22.6 H, INR 2.1 10/08/20 06:00: PT 21.8 H, INR 2.0 10/08/20 06:15: WBC 5.9, RBC 4.04 L, Hgb 13.0, Hct 40.2, MCV 99.5 H, MCH 32.2 H, MCHC 32.3, Plt Count 245, MPV 9.5, Immature Gran % (Auto) 0.300, Neut % (Auto) 50.7, Lymph % (Auto) 33.2, [place] % (Auto) 9.1, Eos % (Auto) 5.7 H, Baso % (Auto) 1.0, Absolute Neuts (auto) 3.0, Nucleated RBC % 0 10/08/20 06:15: Sodium 141, Potassium 3.6, Chloride 111 H, Carbon Dioxide 26.0, Anion Gap 4 L, BUN 11, Creatinine 1.00, Est GFR (MDRD) Af Amer 75, Est GFR (MDRD) Non-Af 62, BUN/Creatinine Ratio 11.0, Glucose 86, Calcium 8.9, Triglycerides 72, Cholesterol 125, LDL Cholesterol 51, VLDL Cholesterol 14, HDL Cholesterol 60 10/08/20 06:15: Hemoglobin A1c 5.4 Rhythm: Electronic ventricular wrist EKG: ECHO: Abnormal echocardiogram with moderate LV systolic function Small to moderate sized echogenic mass was noted in the mitral valve bioprosthesis very suggestive of mitral valve vegetation/involving the bioprosthetic mitral valve With trivial to mild mitral regurgitation. Bubble study is negative.. Assessment/Plan 55-year-old patient, with history of mitral valve bioprosthesis done around 11 years ago Also had a history of CVA at that time this patient seen today at bedside in the progressive care unit at bedside at time of evaluation She presented with slurred speech and dizziness, with unsteadiness. Patient thinks that she had another episode of stroke. This symptoms has been ongoing for 1 week she denied any symptoms of fever. No palpitation Recently patient has change of generator for a pacemaker. At bedside cardiac examination, patient alert orientated and cooperative. She had a recent pacemaker site/left infraclavicular area with no evidence of hematoma Her personnel monitor showed paced ventricular rhythm. And a cardiac exam she had normal bioprosthetic mitral valve sounds. This patient has abnormal transthoracic echocardiogram with echogenic mass mild to moderate size, noted in the mitral valve bioprosthetic area no significant mitral regurgitation , #6 we will discuss the need for CV evaluation only trivial to mild Her LV function is moderate with ejection fraction around 40-45% Recommendations; 1. We will evaluate further with a transesophageal echocardiogram 2. Blood cultures x2 to evaluate for infective endocarditis 3. Sed rate, white cell count is normal. 4. ID consultation/Covid test 5. Primary audio visual aide of this patient is Dr. Smith and discussed the find ing of the regular transthoracic cardiogram and the plan of SHARI. #6 we discussed the need for CT?surgery, based on the finding of the SHARI. Patient has been on Coumadin with INR of 2.0 we will hold Coumadin in the morning. Thank you for the consultation
--- NOTE | 2020-10-08 15:13 | PN_ITS ---
Patient Problems: Active and Suspected Problems (Last Reviewed 10/08/20 @ 05:54 by Wendy Astorga RN) Dysequilibrium (Acute) Stroke-like symptoms (Acute) Reason for Visit: Follow-up on generalized weakness Subjective: Patient was seen and examined. She feels improved. Denies any chest pain or dizziness or palpitations. Discussed with cardiology; her 2D echo was suggestive of mitral vegetation. SHARI is planned for tomorrow. Objective: Physical exam: General: Alert, Oriented x3, Cooperative HEENT: Atraumatic, PERRLA, EOMI, Normocephalic Neck: Supple, No JVD, Negative Carotid Bruits Lungs: Clear to auscultation, Normal air movement Cardiovascular: Regular rate, No murmurs Abdomen: Bowel Sounds Present, Soft, Non Tender Extremities: No edema, Capillary Refill Less than 3 Seconds Skin: No rashes, No breakdown Musculoskeletal: No Tenderness to Palpation of Joints or Extremities Neurological: Cranial nerves II-XII grossly intact, - - Decreased and equal strength in all 4 extremities. Reflex in left knee is more pronounced than right knee. Psych/Mental Status: Normal Affect, Appropriate Vitals/I&O's: Vital Signs Temp Pulse Resp BP Pulse Ox 98 F 92 18 158/98 H 94 10/08/20 12:25 10/08/20 12:25 10/08/20 12:25 10/08/20 12:25 10/08/20 12:25 Oxygen Delivery Method Room Air Weight: 82.3 kg Body Mass Index (BMI) 32.1 Finger Stick Blood Glucose 93 Intake and Output for Last 24 Hours 10/06/20 10/07/20 10/08/20 23:59 23:59 23:59 Intake Total 250 / 250 Balance 250 / 250 Laboratory Results 10/07/20 20:53: WBC 6.8, RBC 4.36, Hgb 14.2, Hct 43.5, MCV 99.8 H, MCH 32.6 H, MCHC 32.6, RDW Std Deviation 54.3 H, RDW Coeff of Jonathon 14.8 H, Plt Count 269, MPV 9.7, Immature Gran % (Auto) 0.300, Neut % (Auto) 55.4, Lymph % (Auto) 30.5, [place] % (Auto) 9.2, Eos % (Auto) 3.9, Baso % (Auto) 0.7, Absolute Neuts (auto) 3.7, Absolute Lymphs (auto) 2.06, Nucleated RBC % 0 10/07/20 20:53: PT Cancelled, INR Cancelled 10/07/20 20:53: Sodium Cancelled, Potassium Cancelled, Chloride Cancelled, Carbon Dioxide Cancelled, Anion Gap Cancelled, BUN Cancelled, Creatinine Cancelled, Estim Creat Clear Calc Cancelled, Est GFR (MDRD) Af Amer Cancelled, Est GFR (MDRD) Non-Af Cancelled, BUN/Creatinine Ratio Cancelled, Glucose Cancelled, Calcium Cancelled, Troponin I Cancelled 10/07/20 22:43: Sodium 142, Potassium 3.7, Chloride 109 H, Carbon Dioxide 26.0, Anion Gap 7, BUN 13, Creatinine 1.03 H, Estim Creat Clear Calc 52.25, Est GFR (MDRD) Af Amer 72, Est GFR (MDRD) Non-Af 60, BUN/Creatinine Ratio 12.6, Glucose 104, Calcium 9.3, Troponin I < 0.015 10/07/20 22:43: PT 22.6 H, INR 2.1 10/08/20 06:00: PT 21.8 H, INR 2.0 10/08/20 06:15: WBC 5.9, RBC 4.04 L, Hgb 13.0, Hct 40.2, MCV 99.5 H, MCH 32.2 H, MCHC 32.3, RDW Std Deviation 53.1 H, RDW Coeff of Jonathon 14.6, Plt Count 245, MPV 9.5, Immature Gran % (Auto) 0.300, Neut % (Auto) 50.7, Lymph % (Auto) 33.2, [place] % (Auto) 9.1, Eos % (Auto) 5.7 H, Baso % (Auto) 1.0, Absolute Neuts (auto) 3.0, Absolute Lymphs (auto) 1.97, Nucleated RBC % 0 10/08/20 06:15: Sodium 141, Potassium 3.6, Chloride 111 H, Carbon Dioxide 26.0, Anion Gap 4 L, BUN 11, Creatinine 1.00, Estim Creat Clear Calc 53.82, Est GFR (MDRD) Af Amer 75, Est GFR (MDRD) Non-Af 62, BUN/Creatinine Ratio 11.0, Glucose 86, Calcium 8.9, Triglycerides 72, Cholesterol 125, LDL Cholesterol 51, VLDL Cholesterol 14, HDL Cholesterol 60 10/08/20 06:15: Hemoglobin A1c 5.4 Current Medications Acetaminophen (Acetaminophen 325 Mg Tablet) 650 mg PO Q6H PRN PRN PRN Reason: Pain Score 1-10/Temp > 100.7 F Albuterol Sulfate (Albuterol 2.5 Mg/3 Ml Vial.Neb.) 2.5 mg INHALATION Q2H PRN PRN PRN Reason: sob/wheezing Aripiprazole (Aripiprazole 5 Mg Tablet) 2.5 mg PO BID [facility] Last Admin: 10/08/20 08:38 Dose: 2.5 mg Documented by: Atorvastatin Calcium (Atorvastatin Calcium 10 Mg Tablet) 10 mg PO DAILY@2200 [facility] Citalopram Hydrobromide (Citalopram 10 Mg Tablet) 10 mg PO QHS [facility] Hydralazine HCl (Hydralazine 20 Mg/Ml Vial) 5 mg IV Q4H PRN PRN PRN Reason: SBP > 160 OR DBP > 120 Sodium Chloride () 250 mls @ 15 mls/hr IV .[id number] PRN PRN Reason: Saline Flush Sodium Chloride () 250 mls @ 15 mls/hr IV .[id number] PRN PRN Reason: Additional IVPB Infusion Sodium Chloride () 1,000 mls @ 75 mls/hr IV .[id number] [facility] Last Admin: 10/08/20 14:12 Dose: 75 mls/hr Documented by: Vancomycin IV Pharmacy to Dose (1 ea/ Sodium Chloride) 500 mls @ 250 mls/hr IV X1 PRN; Protocol PRN Reason: Rx to Dose Meropenem 1 gm/ Sodium (Chloride) 120 mls @ 33 mls/hr IV Q8 [facility] Melatonin (Melatonin 3 Mg Tablet) 3 mg PO QHS PRN PRN PRN Reason: INSOMNIA Nicotine (Nicotine 21 Mg Patch) 21 mg TD DAILY [facility] Last Admin: 10/08/20 08:35 Dose: Not Given Documented by: Ondansetron HCl (Ondansetron 4 Mg/2 Ml Vial) 4 mg IV Q8H PRN PRN PRN Reason: NAUSEA/VOMITING Sodium Chloride (0.9% Saline Lock 10 Ml Syringe) 10 - 40 ml IV UD PRN PRN Reason: SALINE FLUSH Tolterodine Tartrate (Tolterodine Tartrate 2 Mg Cap.Sa) 2 mg PO DAILY [facility] Last Admin: 10/08/20 08:38 Dose: 2 mg Documented by: Warfarin Sodium (Warfarin 5 Mg Tablet) 5 mg PO MoWeFr@1700 [facility] Warfarin Sodium (Warfarin 2.5 Mg Tablet) 2.5 mg PO SuTuThSa@1700 [facility] STROKE Vital Signs/Narrative: Vital Signs Temp Pulse Resp BP Pulse Ox 10/08/20 12:25 98 F 92 18 158/98 H 94 Medical Necessity - Tobacco Use Smoking Status: Current every day smoker Tobacco Use: Cigarettes Assessment/Plan All Active Problems (Last Reviewed 10/08/20 @ 05:54 by Wendy Astorga RN) Dysequilibrium (Acute) Stroke-like symptoms (Acute) 1. 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 Abnormal 2D-ECHO -small-moderate size echogenic mass attached to bioprosthetic mitral valve Cardiology and ID, continue on IV vancomycin and Meropenem Will going for SHARI in am 3. Hyperlipidemia, continue on statin 4. Paroxysmal atrial fibrillation 5. Nicotine dependence, on replacement 6. Sick sinus syndrome/complete heart block, s/p pacemaker 7. Anxiety/depression, continue on Celexa 8. DVT PPx- on warfarin; INR is therapeutic Inpatient E&M: 52292 Subs Hosp L3
[2020-10-08 16:46] LABS: Erythrocyte Sedimentation Rate 5 mm/hr (0-30)
--- NOTE | 2020-10-08 19:24 | PCM.RX.CS ---
Consult Pharmacy has been consulted to manage selected antiobiotic: Vancomycin Type of Consult: New start Prior Doses of Antibiotics Received/Current Regimen: Received 1250mg iv x 1 as loading dose on 10.08.20 @1819. Labs: Sodium 141 mmol/L (136-145) 10/08/20 06:15 Potassium 3.6 mmol/L (3.5-5.1) 10/08/20 06:15 Chloride 111 mmol/L (98-107) H 10/08/20 06:15 Carbon Dioxide 26.0 mmol/L (21.0-32.0) 10/08/20 06:15 Anion Gap 4 (5-15) L 10/08/20 06:15 BUN 11 mg/dL (7-18) 10/08/20 06:15 Creatinine 1.00 mg/dL (0.55-1.02) 10/08/20 06:15 Est GFR (MDRD) Af Amer 75 mL/min (>60) 10/08/20 06:15 Est GFR (MDRD) Non-Af 62 mL/min (>60) 10/08/20 06:15 BUN/Creatinine Ratio 11.0 RATIO (10-20) 10/08/20 06:15 Glucose 86 mg/dL (74-106) 10/08/20 06:15 Microbiology: Microbiology 10/08/20 16:50 Mucosa - Nasopharyngeal SARS-CoV-2 Antigen (Rapid) - Final Weight used for dosin.3 kg Estimated Creatinine Clearance: 54 ml/min Goal Trough: 15-20 mcg/mL Pharmacy Plan for Drug Dosing: Will begin 750mg iv q12h starting 12hrs post 1250mg dose. Trough level ordered for before 4th dose on 10.10.20. Pharmacy Service will continue to monitor and adjust dosing as required. Follow-Up Labs: Trough Vancomycin - 10.10.20 @0530 before 0600 dose
[2020-10-08] MEDS: Citalopram 10 MG Tablet PO (21:07)
[2020-10-08] MEDS: MELATONIN 3 MG TABLET PO (21:07)
[2020-10-08] MEDS: Atorvastatin Calcium 10 MG Tablet PO (21:07)
[2020-10-08] MEDS: hydrOXYzine 10 MG Tablet PO (22:58)
[2020-10-08] MEDS: Acetaminophen 325 MG Tablet 650 MG PO (23:02)
[2020-10-09] VITALS (8 sets, daily range): BP systolic 131–167; BP diastolic 65–91; PULSE 76–92; RESP 16–18; TEMP 36.8–37; O2SAT 92–95; BMI 32.1
[2020-10-09 05:43] LABS: Absolute Lymphocyte Count 1.52 X10^3/uL (0.83-4.51); Basophil# 0.04 X10^3/uL; Basophil% 0.5 % (0-1); Eosinophil# 0.29 X10^3/uL; Eosinophils% 3.9 % (0-5); Hematocrit 40.1 % (37-47); Lymphocyte # 1.52 X10^3/ul (4.0); Lymphocyte % 20.3 % (19-41); Mean Corp Hgb Conc 32.4 g/dL (32-36); Mean Corpuscular Hgb 32.6 pg (27.0-32.0); Mean Corpuscular Volume 100.5 fL (81-99); Mean Platelet Vol. 9.2 fl (6.2-12.0); NRBC Flagged by Analyzer 0 % (0-5); Neutrophil % 66.9 % (47-70); Platelet Count 229 K/mm3 (150-450); RBC Distribution Width CV 14.4 % (11.6-14.6); RBC Distribution Width SD 52.8 fl (35.1-43.9); Red Blood Count 3.99 M/mm3 (4.2-5.4); White Blood Count 7.5 K/mm3 (4.4-11.0)
[2020-10-09 06:03] LABS: International Normalized Ratio 1.7; Prothrombin Time (Protime)PT. 19.2 SECONDS (11.7-14.9)
[2020-10-09 06:04] LABS: ALB/GLOB Ratio 1.3 RATIO (0.9-2.4); AST(SGOT) 21 U/L (15-37); Alanine Aminotransfer ALT/SGPT 25 U/L (13-56); Albumin, Serum 3.5 g/dL (3.2-5.0); Alkaline Phosphatase 56 U/L (45-117); Anion Gap 6 (5-15); BUN 11 mg/dL (7-18); BUN/Creat Ratio 11.4 RATIO (10-20); Calcium,Total 8.7 mg/dL (8.5-10.1); Chloride 111 mmol/L (98-107); Creatinine, Serum 0.97 mg/dL (0.55-1.02); EST Glomerular Filtration Rate 64 mL/min (>60); Est Glom Filt Rate - Afr Amer 77 mL/min (>60); Estimated Creatinine Clearance 55.48 ml/min; Globulin 2.7 g/dL (2.2-4.2); Glucose 94 mg/dL (74-106); Potassium 4.1 mmol/L (3.5-5.1); Protein, Total 6.2 g/dL (6.4-8.2); Sodium Level 140 mmol/L (136-145)
--- NOTE | 2020-10-09 10:46 | CASEMGMT ---
PRAVIN LNIDSEY in to discuss HOFF form with pt. RN CM explained HOFF form, pt voiced understanding. Pt signed HOFF form and filed in chart. Pt provided with copy of signed form. Pt had no further questions or concerns at this time.
--- NOTE | 2020-10-09 13:30 | NURSING ---
NIHSS completed at 1330, Late due to patient being off unit getting SHARI.
--- NOTE | 2020-10-09 14:34 | PCM.HP.ID ---
Problem List (1) Stroke-like symptoms Status: Acute Reason for Consult: abnormal tte Consulted by: Dr. Lentz History of Present Illness: The patient is a 55 year old F with h/o stroke, mitral valve replacement, pacer in place, presented with about one week of difficulty speaking, shakes, head/upper torso rocking forward and back. Had pacer battery change about 3 weeks ago, site healing well with no redness/swelling/pain/drainage. No rash, no cough, no n/v/d, no new joint pain. Came to ED, TTE showed possible mitral veg. Bcx x2 drawn, then started on vanc/meropenem. Family at bedside. Feeling about the same today. Full ROS performed and neg except as noted above. - Medical History Past Medical History (Chronic Problems): Chronic Problems (Last Reviewed 10/08/20 @ 05:54 by Wendy Astorga RN) History of stroke (Chronic) Hyperlipidemia (Chronic) Non-ischemic cardiomyopathy (Chronic) EF 45% per echo 12/27/17 Sick sinus syndrome (Chronic) Presence of cardiac pacemaker (Chronic 09/21/20) Implanted 07/28/2009 then RV lead extraction and Generator Change on 07/04/2011, 09/21/2020 Complete heart block (Chronic) History of mitral valve replacement with bioprosthetic valve (Chronic 07/23/09) 27 mm Medtronic Velasco bioprosthesis Hypertension (Chronic) Rheumatic mitral stenosis with insufficiency (Chronic) Nicotine dependence (Chronic) Paroxysmal atrial fibrillation (Chronic) CVA (cerebral vascular accident) (Chronic) Left Mid Cerebral Artery, Right frontal and Bilateral Parietal Regions Allergies/Adverse Reactions: Allergies amoxicillin [Amoxicillin] Allergy (Verified 10/08/20 01:40) Hives latex Allergy (Verified 10/08/20 01:40) Rash lisinopril Allergy (Verified 10/08/20 01:40) Unknown Penicillins Allergy (Verified 10/08/20 01:40) Hives venom-honey bee [bee venom (honey bee)] Allergy (Verified 10/08/20 01:40) Swelling ciprofloxacin [From Cipro] Adverse Reaction (Verified 10/08/20 01:40) Nausea/Vom/Diarrhea Home Medications: Ambulatory Orders Medication Instructions Recorded Albuterol IH (ProAir) [Proair Hfa] 1 - 2 puff INHALATION Q6H PRN PRN 06/11/16 Citalopram [Celexa] 10 mg PO QHS 07/26/16 oxybutynin chloride 10 mg 10 mg PO DAILY 02/14/19 tablet,extended release 24 hr valbenazine 40 mg capsule 40 mg PO DAILY 08/29/19 rosuvastatin 5 mg tablet 5 mg PO DAILY #90 tab 02/28/20 aripiprazole 5 mg tablet 2.5 mg PO BID tab 09/14/20 warfarin 5 mg tablet See Rx Instructions PO .COMPLEX 09/14/20 - Social History Tobacco Use: cigarettes Vital Signs Temp Pulse Resp BP Pulse Ox 98.6 F 89 18 167/90 H 95 10/09/20 13:26 10/09/20 13:26 10/09/20 13:26 10/09/20 13:26 10/09/20 13:26 Oxygen Delivery Method Room Air Weight: 82.3 kg Body Mass Index (BMI) 32.1 Finger Stick Blood Glucose 93 Microbiology Past 72 Hours 10/08/20 16:50 SARS-CoV-2 Antigen (Rapid) - Final Mucosa - Nasopharyngeal Laboratory Tests Past 24 Hrs 10/08/20 10/09/20 10/09/20 16:21 05:26 05:26 WBC 7.5 RBC 3.99 L Hgb 13.0 Hct 40.1 MCV 100.5 H MCH 32.6 H MCHC 32.4 RDW Std Deviation 52.8 H RDW Coeff of Jonathon 14.4 Plt Count 229 MPV 9.2 Immature Gran % (Auto) 0.400 Neut % (Auto) 66.9 Lymph % (Auto) 20.3 [place] % (Auto) 8.0 Eos % (Auto) 3.9 Baso % (Auto) 0.5 Absolute Neuts (auto) 5.0 Absolute Lymphs (auto) 1.52 Nucleated RBC % 0 ESR 5 PT 19.2 H INR 1.7 Sodium Potassium Chloride Carbon Dioxide Anion Gap BUN Creatinine Estim Creat Clear Calc Est GFR (MDRD) Af Amer Est GFR (MDRD) Non-Af BUN/Creatinine Ratio Glucose Calcium Total Bilirubin AST ALT Alkaline Phosphatase Total Protein Albumin Globulin Albumin/Globulin Ratio 10/09/20 05:26 WBC RBC Hgb Hct MCV MCH MCHC RDW Std Deviation RDW Coeff of Jonathon Plt Count MPV Immature Gran % (Auto) Neut % (Auto) Lymph % (Auto) [place] % (Auto) Eos % (Auto) Baso % (Auto) Absolute Neuts (auto) Absolute Lymphs (auto) Nucleated RBC % ESR PT INR Sodium 140 Potassium 4.1 Chloride 111 H Carbon Dioxide 23.0 Anion Gap 6 BUN 11 Creatinine 0.97 Estim Creat Clear Calc 55.48 Est GFR (MDRD) Af Amer 77 Est GFR (MDRD) Non-Af 64 BUN/Creatinine Ratio 11.4 Glucose 94 Calcium 8.7 Total Bilirubin 1.00 AST 21 ALT 25 Alkaline Phosphatase 56 Total Protein 6.2 L Albumin 3.5 Globulin 2.7 Albumin/Globulin Ratio 1.3 - Other Studies Radiology: [] reviewed Other Studies: [] Route of nutrition/ use of supplements: [] Nutritional Intake: [] IV Site: [] Alexis Catheter: [] - Physical Exam General: Alert, Oriented x3, Cooperative HEENT: Atraumatic, PERRLA, EOMI Neck: Supple, No Nodes Lungs: Clear to auscultation, Normal air movement Cardiovascular: Regular rate, Regular Rhythm Abdomen: Soft, Non Tender, Non-Distended Extremities: No edema Skin: No rashes, Ulcer/ Wound - L chest pacer site with small scab, no inflammation IV Site: Peripheral, without redness Musculoskeletal: No Tenderness to Palpation of Joints or Extremities Neurological: Cranial nerves II-XII grossly intact - Assessment/Plan Antibiotics: [] Assessment/Plan: [] Active and Suspected Problems (Last Reviewed 10/08/20 @ 05:54 by Wendy Astorga RN) Dysequilibrium (Acute) Stroke-like symptoms (Acute) possible endocarditis with pacer and mitral valve replacement - Bcx neg so far, no fever, normal wbc, normal esr. Neurology following, no sign of new stroke on imaging. Covid rapid test neg. SHARI report does not appear to show any sign of endocarditis but did have some thickening of mitral valve. Pt reports hives with PCN and amox in the past. Currently on empiric vanc/mariel. Will stop abx at this time, no clear evidence of infection. Will follow, thank you
[2020-10-09] MEDS: 0.9% Saline Lock 10 ML Syringe IV (15:30)
--- NOTE | 2020-10-09 15:53 | CASEMGMT ---
AURORA spoke with patient and asked if she would like home health. She said she would, but she did not know which agency. AURORA told her we will get her a list. AURORA notified RN ROSALIA and she took it from here. Shannan MENDOZA
--- NOTE | 2020-10-09 16:12 | DCINST_ITS ---
- Discharge Diagnoses Current Active Problems: Current Active and Chronic Problems (Last Reviewed 10/08/20 @ 05:54 by Wendy Astorga RN) Dysequilibrium (Acute) History of stroke (Chronic) Stroke-like symptoms (Acute) Hyperlipidemia (Chronic) Non-ischemic cardiomyopathy (Chronic) EF 45% per echo 12/27/17 Sick sinus syndrome (Chronic) Presence of cardiac pacemaker (Chronic 09/21/20) Implanted 07/28/2009 then RV lead extraction and Generator Change on 07/04/2011, 09/21/2020 Complete heart block (Chronic) History of mitral valve replacement with bioprosthetic valve (Chronic 07/23/09) 27 mm Medtronic Velasco bioprosthesis Hypertension (Chronic) Rheumatic mitral stenosis with insufficiency (Chronic) Nicotine dependence (Chronic) Paroxysmal atrial fibrillation (Chronic) CVA (cerebral vascular accident) (Chronic) Left Mid Cerebral Artery, Right frontal and Bilateral Parietal Regions Reason(s) for Visit for Discharge Instructions: Generalised weakness You will use the following diet at home:: Cardiac Your food should be the consistency of: Regular Your liquids should be the consistency of: Regular/Thin Discharge Activity: Return to Normal Activity Additional Instructions: Continue to take all your medicines as prescribed. You should follow-up for your INR checks as previous. You need to call [phone], this is Dr. Foster office number to set up an appointment within [address] Please states that Dr. Lentz and Dr. Espino called and said you should make their appointment very soon. Will be discharged with home health. Be careful when you are getting up of bed or sitting to walk. Allergies/Adverse Reactions: Allergies amoxicillin [Amoxicillin] Allergy (Verified 10/08/20 01:40) Hives latex Allergy (Verified 10/08/20 01:40) Rash lisinopril Allergy (Verified 10/08/20 01:40) Unknown Penicillins Allergy (Verified 10/08/20 01:40) Hives venom-honey bee [bee venom (honey bee)] Allergy (Verified 10/08/20 01:40) Swelling ciprofloxacin [From Cipro] Adverse Reaction (Verified 10/08/20 01:40) Nausea/Vom/Diarrhea Medications to take at Discharge Albuterol IH (ProAir) [Proair Hfa] 1 - 2 puff INHALATION Q6H PRN PRN 06/11/16 Citalopram [Celexa] 10 mg PO QHS 07/26/16 oxybutynin chloride 10 mg tablet,extended release 24 hr 10 mg PO DAILY 02/14/19 valbenazine 40 mg capsule 40 mg PO DAILY 08/29/19 rosuvastatin 5 mg tablet 5 mg PO DAILY #90 tab 02/28/20 aripiprazole 5 mg tablet 2.5 mg PO BID tab 09/14/20 warfarin 5 mg tablet See Rx Instructions PO .COMPLEX 09/14/20 Nicotine [Nicoderm Cq] 21 mg TD DAILY 30 Days #30 patch 10/09/20 The following prescriptions were given: Nicotine [Nicoderm Cq] 21 mg TD DAILY 30 Days #30 patch Transmission Status: Pending to [facility] Primary Care Physician: Louis Dobbs MD [Primary Care Provider] - Please follow up with your Primary Care Physician in: within 1-2 weeks Test Results: Test results from this visit will be discussed in further detail at your follow- up appointment, if applicable. Please Follow Up With: Javed Smith MD When: 2 WEEKS Please Follow Up With: Burak Milner MD When: 1 WEEK Proposed Discharge Date: 10/09/20
--- NOTE | 2020-10-09 16:13 | CASEMGMT ---
Pt previously provided list of [facility] providers including qualifyt and resource use data and consistent with the pt's preferred [facility] region, medical needs, and insurance network. Pt would like [facility] at this time after perusing list provided. Call to Jeri at [facility] to notify of referral and she states she will let this RN CM know. CM to follow. Arsenio COSTELLO CM
--- NOTE | 2020-10-09 16:16 | PCM.DC.SUM ---
Discharge Date and Diagnosis - Problem List Patient Problems: Active and Suspected Problems (Last Reviewed 10/08/20 @ 05:54 by Wendy Astorga RN) Dysequilibrium (Acute) Stroke-like symptoms (Acute) Date of Admission: 10/07/20 Date of Discharge: 10/09/20 - Primary Discharge Diagnosis Acute Problems: Active Problems (Last Reviewed 10/08/20 @ 05:54 by Wendy Astorga RN) Generalized weakness Abnormal 2D echo - Secondary Discharge Diagnosis Chronic Problems: Chronic Problems (Last Reviewed 10/08/20 @ 05:54 by Wendy Astorga RN) History of stroke (Chronic) Hyperlipidemia (Chronic) Non-ischemic cardiomyopathy (Chronic) EF 45% per echo 12/27/17 Sick sinus syndrome (Chronic) Presence of cardiac pacemaker (Chronic 09/21/20) Implanted 07/28/2009 then RV lead extraction and Generator Change on 07/04/2011, 09/21/2020 Complete heart block (Chronic) History of mitral valve replacement with bioprosthetic valve (Chronic 07/23/09) 27 mm [employer] Velasco bioprosthesis Hypertension (Chronic) Rheumatic mitral stenosis with insufficiency (Chronic) Nicotine dependence (Chronic) Paroxysmal atrial fibrillation (Chronic) CVA (cerebral vascular accident) (Chronic) Left Mid Cerebral Artery, Right frontal and Bilateral Parietal [facility] Course and Treatment Imaging Results: 10/09/20 12:07 Echo Transesophageal (SHARI) [ECHO] Routine Clinical Impression(s) from Imaging Studies Brain CT 10/07/20 21:55 IMPRESSION: 1. Chronic involutional changes of the brain. 2. 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 Electronically Signed: Miguel Lau MD at 11:58 EST , Service support , Infectious disease Tele-neurology Operations: None Procedures: 2-D Echocardiogram, Transesophageal Echo Summary of Care Provided: The patient is a 55 year old F multiple comorbidities including recurrent CVAs, history of bioprosthetic mitral valve on Coumadin who comes in with generalized weakness and difficulty getting up. Patient was found to have difficulty articulating her train of thoughts. She stated her symptoms have been ongoing for over a week. She had an initial CT of the head that was unremarkable. She was admitted for stroke work-up. Patient could not get an MRI of the brain because of her pacemaker. 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 2D echo showed some mitral valve vegetation. Patient underwent SHARI that was negative for any vegetation. She was in the meantime started on IV antibiotics, ID consulted . Antibiotics were discontinued after SHARI ruled out any vegetation. Telemetry neurology was consulted. They recommended neurovascular evaluations of aneurysm and possible coiling. Discussed on phone with Dr. Espino in the [facility] general. He recommended that patient follows up with him in the outpatient within a week for admission, bridging with heparin drip and coiling of her aneurysms. This was communicated to the patient and her brother at the bedside. All questions answered. [place] that her disequilibrium was secondary to his psych meds. Patient was seen by PT and OT. She was discharged with home health and to family support. Patient Problems: Active and Suspected Problems (Last Reviewed 10/08/20 @ 05:54 by Wendy Astorga RN) Dysequilibrium (Acute) Stroke-like symptoms (Acute) Subjective: On the day of discharge, patient was seen and examined. Denied any new complaints. Objective: Physical exam: General: Alert, Oriented x3, Cooperative HEENT: Atraumatic, PERRLA, EOMI, Normocephalic Neck: Supple, No JVD, Negative Carotid Bruits Lungs: Clear to auscultation, Normal air movement Cardiovascular: Regular rate, No murmurs Abdomen: Bowel Sounds Present, Soft, Non Tender Extremities: No edema, Capillary Refill Less than 3 Seconds Skin: No rashes, No breakdown Musculoskeletal: No Tenderness to Palpation of Joints or Extremities Neurological: Cranial nerves II-XII grossly intact, - - Decreased and equal strength in all 4 extremities. Reflex in left knee is more pronounced than right knee. Psych/Mental Status: Normal Affect, Appropriate - Physical Exam Vitals/I&O's: Vital Signs Temp Pulse Resp BP Pulse Ox 98.6 F 89 18 167/90 H 95 10/09/20 13:26 10/09/20 13:26 10/09/20 13:26 10/09/20 13:26 10/09/20 13:26 Oxygen Delivery Method Room Air Weight: 82.3 kg Body Mass Index (BMI) 32.1 Finger Stick Blood Glucose 93 Intake and Output for Last 24 Hours 10/07/20 10/08/20 10/09/20 23:59 23:59 23:59 Intake Total 1672.5 / 1672.5 505 / 505 Balance 1672.5 / 1672.5 505 / 505 Microbiology Past 72 Hours 10/08/20 16:50 Mucosa - Nasopharyngeal SARS-CoV-2 Antigen (Rapid) - Final Laboratory Results 10/08/20 16:21: ESR 5 10/09/20 05:26: WBC 7.5, RBC 3.99 L, Hgb 13.0, Hct 40.1, MCV 100.5 H, MCH 32.6 H, MCHC 32.4, RDW Std Deviation 52.8 H, RDW Coeff of Jonathon 14.4, Plt Count 229, MPV 9.2, Immature Gran % (Auto) 0.400, Neut % (Auto) 66.9, Lymph % (Auto) 20.3, [place] % (Auto) 8.0, Eos % (Auto) 3.9, Baso % (Auto) 0.5, Absolute Neuts (auto) 5.0, Absolute Lymphs (auto) 1.52, Nucleated RBC % 0 10/09/20 05:26: PT 19.2 H, INR 1.7 10/09/20 05:26: Sodium 140, Potassium 4.1, Chloride 111 H, Carbon Dioxide 23.0, Anion Gap 6, BUN 11, Creatinine 0.97, Estim Creat Clear Calc 55.48, Est GFR (MDRD) Af Amer 77, Est GFR (MDRD) Non-Af 64, BUN/Creatinine Ratio 11.4, Glucose 94, Calcium 8.7, Total Bilirubin 1.00, AST 21, ALT 25, Alkaline Phosphatase 56, Total Protein 6.2 L, Albumin 3.5, Globulin 2.7, Albumin/Globulin Ratio 1.3 Current Medications Acetaminophen (Acetaminophen 325 Mg Tablet) 650 mg PO Q6H PRN PRN PRN Reason: Pain Score 1-10/Temp > 100.7 F Last Admin: 10/08/20 23:02 Dose: 650 mg Documented by: Albuterol Sulfate (Albuterol 2.5 Mg/3 Ml Vial.Neb.) 2.5 mg INHALATION Q2H PRN PRN PRN Reason: sob/wheezing Aripiprazole (Aripiprazole 5 Mg Tablet) 2.5 mg PO BID [facility] Last Admin: 10/09/20 10:11 Dose: Not Given Documented by: Atorvastatin Calcium (Atorvastatin Calcium 10 Mg Tablet) 10 mg PO DAILY@2200 [facility] Last Admin: 10/08/20 21:07 Dose: 10 mg Documented by: Citalopram Hydrobromide (Citalopram 10 Mg Tablet) 10 mg PO QHS [facility] Last Admin: 10/08/20 21:07 Dose: 10 mg Documented by: Hydralazine HCl (Hydralazine 20 Mg/Ml Vial) 5 mg IV Q4H PRN PRN PRN Reason: SBP > 160 OR DBP > 120 Hydroxyzine HCl (Hydroxyzine 10 Mg Tablet) 10 mg PO 4X/DAY PRN PRN PRN Reason: ANXIETY Last Admin: 10/08/20 22:58 Dose: 10 mg Documented by: Sodium Chloride () 250 mls @ 15 mls/hr IV .[id number] PRN PRN Reason: Saline Flush Sodium Chloride () 250 mls @ 15 mls/hr IV .[id number] PRN PRN Reason: Additional IVPB Infusion Melatonin (Melatonin 3 Mg Tablet) 3 mg PO QHS PRN PRN PRN Reason: INSOMNIA Last Admin: 10/08/20 21:07 Dose: 3 mg Documented by: Nicotine (Nicotine 21 Mg Patch) 21 mg TD DAILY [facility] Last Admin: 10/09/20 15:43 Dose: 21 mg Documented by: Nicotine Polacrilex (Nicotine Polacrilex 4 Mg Gum) 4 mg PO Q2H PRN PRN PRN Reason: Nicotine Craving Ondansetron HCl (Ondansetron 4 Mg/2 Ml Vial) 4 mg IV Q8H PRN PRN PRN Reason: NAUSEA/VOMITING Sodium Chloride (0.9% Saline Lock 10 Ml Syringe) 10 - 40 ml IV UD PRN PRN Reason: SALINE FLUSH Last Admin: 10/09/20 15:30 Dose: 10 ml Documented by: Tolterodine Tartrate (Tolterodine Tartrate 2 Mg Cap.Sa) 2 mg PO DAILY [facility] Last Admin: 10/09/20 10:11 Dose: Not Given Documented by: Warfarin Sodium (Warfarin 5 Mg Tablet) 5 mg PO MoWeFr@1700 GARCÍA Warfarin Sodium (Warfarin 2.5 Mg Tablet) 2.5 mg PO SuTuThSa@1700 [facility] Last Admin: 10/08/20 16:44 Dose: 2.5 mg Documented by: Discharge Diet: Low fat/ Low Cholesterol, 2000 mg Sodium Diet Discharge Activity: Return to Normal Activity Home Medications: Medications to take at Discharge Albuterol IH (ProAir) [Proair Hfa] 1 - 2 puff INHALATION Q6H PRN PRN 06/11/16 Citalopram [Celexa] 10 mg PO QHS 07/26/16 oxybutynin chloride 10 mg tablet,extended release 24 hr 10 mg PO DAILY 02/14/19 valbenazine 40 mg capsule 40 mg PO DAILY 08/29/19 rosuvastatin 5 mg tablet 5 mg PO DAILY #90 tab 02/28/20 aripiprazole 5 mg tablet 2.5 mg PO BID tab 09/14/20 warfarin 5 mg tablet See Rx Instructions PO .COMPLEX 09/14/20 Nicotine [Nicoderm Cq] 21 mg TD DAILY 30 Days #30 patch 10/09/20 Following Prescriptions Were Given to Patient: Nicotine [Nicoderm Cq] 21 mg TD DAILY 30 Days #30 patch Transmission Status: Received by [facility]30 Primary Care Physician: Louis Dobbs MD [Primary Care Provider] - Please follow up with your Primary Care Physician in: within 1-2 weeks Please Follow Up With: Javed Smith MD When: 2 WEEKS Please Follow Up With: Burak Milner MD When: 1 WEEK Disposition: Home Minutes spent on discharge:: 40 Patient Condition:: Stable Medical Necessity - Tobacco Use Smoking Status: Current every day smoker Tobacco Use: Cigarettes Meaningful Use Info Meaningful Use Diagnoses (Choose all that apply): None applicable OBSV E&M: 77222 Observation care discharge
--- NOTE | 2020-10-09 17:07 | CASEMGMT ---
Patient was concerned that her phone does not always work. She asked that if home health cannot get a hold of her to call her brother. Patient's brother's name and number is in the computer system. SW called Jeri with [facility] and left her a voice mail letting her know this information. Shannan BARR MSW
--- NOTE | 2020-10-12 09:32 | CASEMGMT ---
Call from Karoline at [facility] and she states when she called to set up SOC for [facility] today, pt stated she had been admitted in [facility] at this time. Arsenio COSTELLO CM
== END 2020-10-09 15:18 | disposition home health service (06) ==
LOC: ED 23:35 → PCU 10-08 00:01
PROVIDERS: Internal Medicine Interventional Cardiology; Admitting Provider Hospitalist; Emergency Provider Emergency Medicine; PCP Internal Medicine; Visit Provider Internal Medicine
DX: R53.1 Weakness (principal); R94.31 Abnormal electrocardiogram [ECG] [EKG]; I48.0 Paroxysmal atrial fibrillation; Z23 Encounter for immunization; F17.210 Nicotine dependence, cigarettes, uncomplicated; R42 Dizziness and giddiness; E78.5 Hyperlipidemia, unspecified; I11.0 Hypertensive heart disease with heart failure; J45.909 Unspecified asthma, uncomplicated; I42.8 Other cardiomyopathies; F31.9 Bipolar disorder, unspecified; I50.22 Chronic systolic (congestive) heart failure; Z79.899 Other long term (current) drug therapy; Z79.01 Long term (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 anticoagulants; Z95.0 Presence of cardiac pacemaker; Z95.3 Presence of xenogenic heart valve; Z86.73 Personal history of transient ischemic attack (TIA), and cerebral infarction without residual deficits; Z95.1 Presence of aortocoronary bypass graft; R47.81 Slurred speech; F41.9 Anxiety disorder, unspecified
CPT/HCPCS: 36415; 70450; 70496; 70498; 80048; 80053; 80061; 83036; 84484; 85025; 85610; 85652; 87040; 87426; 92523; 92526; 92610; 93005; 93306; 93312; 93320; 93325; 94762; 96361; 96365; 96366; 96367; 96375; 97110; 97162; 97166; 97530; 97535; 99218; 99285; 99406; G0008; J2185; J7030; J7040; J7050; Q9967; 90686; A4216; G0378

== ENCOUNTER 2020-10-10 17:53 | Emergency (ER) | payer MEDICARE, MEDICAID, SELFPAY ==
[2020-10-09 08:02] VITALS: BMI 32.1
[2020-10-10 17:55] VITALS: BP 163/93; PULSE 88; RESP 18; TEMP 37; O2SAT 98; BMI 33.1
--- NOTE | 2020-10-10 18:19 | CT_ITS ---
STUDY: CT BRAIN WITHOUT CONTRAST REASON FOR EXAM: Female, 55 years old. weakness RADIATION DOSAGE (If Supplied By Facility): CTDIvol = ( 44.99 ) mGy, DLP = ( 779.24 ) mGycm TECHNIQUE: Transaxial CT imaging of the brain was performed without administration of intravenous contrast material. Individualized dose optimization techniques were used for this CT. COMPARISON: 10/07/2020 FINDINGS: Normal soft tissue structures. Normal calvarium. Atrophy and periventricular white matter ischemic changes. Old left frontal parietal infarct. Old right frontal lobe infarct Normal basal ganglia and thalami. Normal brainstem. Normal cerebellum. Anterior communicating artery and basilar tip aneurysms are noted. There is no intracranial hemorrhage. There are no findings of an acute ischemic infarction. Normal visualized paranasal sinuses. CT/Brain/Head without Contrast IMPRESSION: Mild atrophy and periventricular white matter ischemic changes with old bilateral infarcts. No acute bleed. If concern for acute infarct MRI recommended Electronically Signed: Jordan Packer MD at 20:06 EST , Service support ,
--- NOTE | 2020-10-10 18:20 | EKG12_ITS ---
Test Reason : WEAKNESS Blood Pressure : / mmHG Vent. Rate : 087 BPM Atrial Rate : 087 BPM P-R Int : 202 ms QRS Dur : 162 ms QT Int : 420 ms P-R-T Axes : 075 -70 077 degrees QTc Int : 505 ms Atrial-sensed ventricular-paced rhythm Abnormal ECG Confirmed by SATURNINO BAZAN, CHERYLE ([id number]), loan expeditor MAYLIN ARGUELLO ([id number]) on 10/13/2020 12:26:33 PM Referred By: MERCEDES Confirmed By:CHERYLE MATAMOROS MD
--- NOTE | 2020-10-10 18:21 | ED.DCSUM_ITS ---
- ER Visit Summary Date of Service: 10/10/20 Chief Complaint: Generalized weakness History of Present Illness: The patient is a 55 F history reported of prior strokes, brain aneurysms which are under observation and known A. fib on Coumadin. She is also had a pacemaker placed, mitral valve replaced with a pig valve and partial colectomy. Just in the hospital and discharged yesterday. Says she feels flushed and weak all over. Nausea, vomiting, diarrhea or fever. She denies melena. She denies dysuria. She does get intermittent headaches but these are not new, different or changed. She just feels weak all over. Physical Examination: Middle-aged female no acute distress vital signs stable her blood pressure is elevated at 163/93. Pulse ox 90% on room air no signs hypoxia. HEENT exam unremarkable. Moist with membranes. No facial droop. Normal speech. No signs of trauma. Neck nontender. Lungs clear to auscultation bilaterally. Heart paced rhythm rate about 88. Abdomen soft nontender normal bowel sounds no peritoneal signs. Extremities moves all 4. Calves are nontender without edema or cords. Neurologically she is awake and alert. She seems equally weak on both the upper and lower extremities. She has 4-5 arboreal scientist strength bilaterally. 3 out of 5 strength in her lower extremities. She is awake and alert. She has normal speech. No facial droop. This is somewhat effort dependent. Test Results: CAT scan of the brain done without contrast is read by the radiologist shows no acute abnormality. Chronic changes. Bilateral old infarcts. No bleed. Aneurysm was noted had been seen in the past. EKG shows a paced rhythm rate of 87. CBC normal white count of 5 hemoglobin 13. Chemistries are unremarkable normal creatinine and gap. Normal PT/INR. Subtherapeutic INR of 1.5. UA negative. I went over all test results with the patient. Repeat exam at 8:53 PM going well. To be discharged home. She has follow-up appointment with [facility] for further evaluation of the aneurysms. Emergency Department Course and Treatment: No age female generalized weakness with a known history of strokes and brain aneurysms currently on Coumadin for A. fib and prior strokes. Treatment Plan: Outpatient follow-up. Disposition: discharge Impression: Acute generalized weakness History of strokes History of A. fib anticoagulant on Coumadin History of brain aneurysms History of pacemaker and mitral valve replaced with a porcine valve. This note was generated with [employer] dictation software. It may contain incorrect words, spelling, and punctuation that were not noted in review of the chart prior to signing ED Disposition - Plan for ED Patient: Referrals: Louis Dobbs MD [Primary Care Provider] -
[2020-10-10 19:47] LABS: Absolute Lymphocyte Count 1.44 X10^3/uL (0.83-4.51); Absolute Neutrophil Count 3.5 X10^3/uL (2.0-7.7); Basophil# 0.05 X10^3/uL; Basophil% 0.8 % (0-1); Eosinophil# 0.32 X10^3/uL; Eosinophils% 5.4 % (0-5); Hematocrit 42.9 % (37-47); Hemoglobin 13.9 g/dL (12.0-15.0); Lymphocyte # 1.44 X10^3/ul (4.0); Lymphocyte % 24.3 % (19-41); Mean Corp Hgb Conc 32.4 g/dL (32-36); Mean Corpuscular Volume 98.8 fL (81-99); Mean Platelet Vol. 9.7 fl (6.2-12.0); Monocyte% 10.1 % (0-10); NRBC Flagged by Analyzer 0 % (0-5); Neutrophil % 59.1 % (47-70); Platelet Count 216 K/mm3 (150-450); RBC Distribution Width CV 14.3 % (11.6-14.6); RBC Distribution Width SD 52.3 fl (35.1-43.9); Red Blood Count 4.34 M/mm3 (4.2-5.4); White Blood Count 5.9 K/mm3 (4.4-11.0)
[2020-10-10 20:05] LABS: Bacteria 0 SEEN /hpf (None Seen); Mucous, Urine 0 SEEN /hpf (<or=2+)
[2020-10-10 20:06] LABS: Color, Urine Yellow (Yellow); Glucose, Dipstick Normal (Normal); Ketone-Dipstick Negative (Negative); Leukocyte Esterase-Dipstick 25 /ul (Negative); Nitrite-Dipstick Negative (Negative); Occult Blood-Urine Negative /ul (Negative); Protein-Dipstick 15 mg/dl (Negative); Specific Gravity, Urine 1.015 (1.002-1.030); Urine Bilirubin Dipstick Negative (Negative); Urine Clarity Clear (Clear); Urine Urobilinogen Normal (Normal); Urine pH 6.5 (5.0 - 8.0)
[2020-10-10 20:16] VITALS: BP 158/92; O2SAT 97
[2020-10-10 20:16] LABS: Bedside Glucose 88 mg/dL (70-110)
[2020-10-10 20:36] LABS: Red Blood Cells-Urine 0-5 SEEN /hpf (0-5); Squamous Epithelial Cells - UA 0-5 SEEN /hpf (5-10); White Blood Cells 0-5 SEEN /hpf (0-5)
[2020-10-10 20:43] LABS: Anion Gap 6 (5-15); BUN 17 mg/dL (7-18); BUN/Creat Ratio 19.7 RATIO (10-20); Chloride 109 mmol/L (98-107); Creatinine, Serum 0.86 mg/dL (0.55-1.02); EST Glomerular Filtration Rate 73 mL/min (>60); Est Glom Filt Rate - Afr Amer 89 mL/min (>60); Estimated Creatinine Clearance 62.58 ml/min; Glucose 92 mg/dL (74-106); Potassium 4.2 mmol/L (3.5-5.1); Sodium Level 142 mmol/L (136-145)
[2020-10-10 20:49] LABS: International Normalized Ratio 1.5; Prothrombin Time (Protime)PT. 17.7 SECONDS (11.7-14.9)
--- NOTE | 2020-10-10 20:56 | ED.DEP ---
ED Disposition - Plan for ED Patient: Disposition: Home or Assisted Living Instructions: ED Weakness (Uncertain Cause) Referrals: Louis Dobbs MD [Primary Care Provider] - As soon as possible Additional Instructions: Outpatient follow-up in [place] for further evaluation of your aneurysms.
== END 2020-10-10 21:20 | disposition home or self-care (01) ==
PROVIDERS: Emergency Provider Emergency Medicine; PCP Internal Medicine
DX: R53.1 Weakness (principal); Z86.73 Personal history of transient ischemic attack (TIA), and cerebral infarction without residual deficits; I48.91 Unspecified atrial fibrillation; Z79.01 Long term (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 anticoagulants; Z95.0 Presence of cardiac pacemaker; Z95.2 Presence of prosthetic heart valve; Z90.49 Acquired absence of other specified parts of digestive tract; Z79.899 Other long term (current) drug therapy; Z87.891 Personal history of nicotine dependence
CPT/HCPCS: 36415; 70450; 80048; 81001; 82962; 85025; 85610; 93005; 99285; A4216

== ENCOUNTER → 2021-01-06 | Outpatient (CLI) | payer MEDICARE, MEDICAID, SELFPAY ==
[2020-11-27 09:39] VITALS: BMI 30.9
[2021-01-06 10:33] LABS: International Normalized Ratio 1.7; Prothrombin Time (Protime)PT. 19.6 SECONDS (11.7-14.9)
== END | disposition home or self-care (01) ==
LOC: LABSPEC 10:15
PROVIDERS: PCP Internal Medicine; Visit Provider Internal Medicine
DX: I48.0 Paroxysmal atrial fibrillation (principal); Z79.01 Long term (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 anticoagulants
CPT/HCPCS: 85610

== ENCOUNTER 2021-01-16 11:37 | Emergency (ER) | payer MEDICARE, MEDICAID, SELFPAY ==
[2020-11-27 09:39] VITALS: BMI 30.9
[2021-01-16 11:39] VITALS: BP 160/126; PULSE 100; RESP 23; TEMP 36.8; O2SAT 99; BMI 31.0
--- NOTE | 2021-01-16 11:57 | CT_ITS ---
EXAM: CT HEAD WITHOUT INTRAVENOUS CONTRAST : 1965 CLINICAL INDICATION: Hit head 5 days ago, anticoagulated TECHNIQUE: Multiple axial images were obtained of the head without intravenous contrast. This CT exam was performed using one or more of the following dose reduction techniques: automated exposure control, adjustment of the mA and/or kV according to patient size, and/or use of iterative reconstruction technique. This report was created using [employer] report generation technology. COMPARISON: 10/10/2020 FINDINGS: BRAIN AND EXTRA-AXIAL SPACES: There is enlargement of the ventricular system and cortical sulci. There is hypoattenuation in the periventricular white matter. No intra- or extra-axial hemorrhage. No evidence of acute infarct. No intracranial mass or mass effect. There is preservation of the ortiz/white matter interface. Posterior fossa structures are unremarkable. Basal cisterns are patent. BONES/JOINTS: Unremarkable. No discrete lytic or blastic abnormalities. VASCULATURE: Since reference examination vascular coils have been place which created large amount of beam hardening artifact. SINUSES: Unremarkable as visualized. Clear. MASTOID AIR CELLS: Unremarkable. Clear. ORBITS: Visualized globes, extraocular muscles, optic nerves and retrobulbar fat appear unremarkable. CT/Brain/Head without Contrast IMPRESSION: 1. Slightly limited study due to large amount of beam hardening artifact from vascular coils. No gross acute abnormalities are identified. 2. Underlying senescent change with small vessel ischemia. Individualized dose optimization techniques were used for this CT. at 1357 Reported and signed by: Rony Saucedo MD Electronically Signed: Rony Saucedo MD at 13:56 EDT Tel , Service support ,
--- NOTE | 2021-01-16 11:59 | EX.ED.DYSGE1 ---
HPI History of Present Illness Chief Complaint: Mental Health Informant: patient Narrative Narrative: Patient is a 55-year-old female with a past medical history of CVA, aneurysm, A. fib on Coumadin who presents to the emergency department for bobbing. She states struck her head when she was in therapy on Monday. Since then she has been bobbing her head [id number]. She denies having this before. She does feel very anxious. She denies any headache or vision changes. No weakness or loss of sensation past her baseline. She denies any chest pain, shortness of breath or heart palpitations. She had her INR checked 2 days ago and it was 2.4. She feels like her symptoms are getting worse which prompted her to come in today. She has not taken anything for her symptoms. No known aggravating or relieving factors. [facility] Medical History (Updated 01/16/21 @ 15:[address] Jayson Melgar, DO) Asthma Bipolar disorder Colitis Complete heart block CVA (cerebral vascular accident) Dysphagia as late effect of cerebrovascular accident (CVA) 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 classified elsewhere Hyperlipidemia Hypertension Nicotine dependence Non-ischemic cardiomyopathy Paroxysmal atrial fibrillation Rheumatic mitral stenosis with insufficiency Sick sinus syndrome Stroke/cerebrovascular accident Home Medications albuterol sulfate 1 - 2 puff INHALATION Q6H PRN PRN 06/11/16 [History Last Taken 08/11/16 08:00] citalopram 10 mg PO QHS 07/26/16 [History Last Taken 1 Day Ago ~06/09/19] oxybutynin chloride 10 mg tablet,extended release 24 hr 10 mg PO DAILY 02/14/19 [History Last Taken 1 Day Ago ~06/09/19] valbenazine 40 mg capsule 40 mg PO DAILY 08/29/19 [History Last Taken 09/21/20] rosuvastatin 5 mg tablet 5 mg PO DAILY #90 tab 02/28/20 [Rx Last Taken Unknown] warfarin 5 mg tablet See Rx Instructions PO .COMPLEX 09/14/20 [History Last Taken Unknown] Lactobacillus acidophilus 10 mg PO DAILY 11/27/20 [History Last Taken Unknown] amlodipine 10 mg tablet 10 mg PO DAILY 11/27/20 [History Last Taken Unknown] aspirin 81 mg tablet,delayed release 81 mg PO DAILY 11/27/20 [History Last Taken Unknown] clopidogrel 75 mg tablet 75 mg PO DAILY 11/27/20 [History Last Taken Unknown] mecobalamin (vitamin B12) 5,000 mcg disintegrating tablet mcg PO 11/27/20 [History Last Taken Unknown] trazodone 50 mg tablet 50 mg PO DAILY 11/27/20 [History Last Taken Unknown] cephalexin 500 mg PO BID 7 Days #14 cap 01/16/21 [Rx Last Taken Unknown] Allergy/AdvReac Type Severity Reaction Status Date / Time amoxicillin [Amoxicillin] Allergy Hives Verified 01/16/21 11:39 latex Allergy Rash Verified 01/16/21 11:39 lisinopril Allergy Unknown Verified 01/16/21 11:39 Penicillins Allergy Hives Verified 01/16/21 11:39 venom-honey bee Allergy Swelling Verified 01/16/21 11:39 [bee venom (honey bee)] ciprofloxacin [From Cipro] AdvReac Nausea/Vom/ Verified 01/16/21 11:39 Diarrhea Surgical History History of History of mitral valve replacement with bioprosthetic valve (07/23/09) History of partial colectomy Presence of cardiac pacemaker (09/21/20) Social History Smoking Status: Never smoker alcohol intake: current alcohol intake frequency: holidays/special occasions only substance use type: does not use caffeine: Yes Type: carbonated beverages Number of servings: 1 ROS ROS ED Constitutional Constitutional ED: Denies chills or fever(s) Eyes Eyes: Denies change in vision ENT ENT ED: Denies epistaxis or rhinorrhea Cardiovascular Cardiovascular: Denies chest pain or palpitations Respiratory/Chest Respiratory/Chest: Denies cough, dyspnea or dyspnea on exertion Gastrointestinal Gastrointestinal: Denies abdominal pain, diarrhea, nausea or vomiting Genitourinary Genitourinary ED: Denies dysuria, hematuria or urinary frequency Musculoskeletal Musculoskeletal: Denies back pain or neck pain Integumentary Denies rash Neurologic Neurologic: Denies dizziness, headache(s) or weakness Psychiatric Psychiatric: Reports anxiety EXAM Physical Exam Const Vital Signs: 01/16/21 11:39 01/16/21 15:31 Temperature 98.2 F Temperature Source Temporal Pulse Rate 100 71 Respiratory Rate 23 H 22 H Blood Pressure 160/126 H 132/84 H Blood Pressure Mean 137 100 Pulse Ox 99 97 Oxygen Delivery Method Room Air Room Air Positive well nourished and well developed Constitutional Narrative: Patient sitting up in bed. She lets her torso and head fall slightly forward and then pops back up immediately. She does this throughout questioning but whenever I perform a physical exam she does not have any symptoms. Immediately after I do my neuro assessment patient starts again. This does seem distractible. General Appearance ED: well developed HEENT Reports normocephalic, head/scalp atraumatic and moist mucous membranes Eyes PERRL and EOMs intact bilaterally Neck supple General: Negative for tenderness Chest Wall inspection of chest normal Resp normal respiratory effort and clear to auscultation bilaterally Auscultation: Negative for rales, rhonchi or wheezes Cardio regular rate, regular rhythm and no murmurs GI normal to inspection, nondistended, normoactive bowel sounds and non-tender Palpation: soft; Negative for guarding or rebound tenderness present Back/Spine no CVA tenderness Extremity normal to inspection General Extremety ED: Negative for edema or tenderness General Extremity: Negative for edema Neuro oriented x3, CN's II-XII intact bilaterally and no sensory deficits noted Sensorium / Orientation: alert Motor Exam: strength 5/5 throughout Psych Psych Narrative: Pressured speech Mood & Affect: anxious Skin no rashes or lesions noted MDM MDM MDM Narrative Medical decision making narrative: Patient presents to the ED for anxiousness. She has been bobbing her head and torso towards the ground and back up again repeatedly. She states that this started when she hit her head this past Monday. On exam she has no focal deficits. She is on anticoagulation so we will check CT scan of the head to make sure that there is no intracranial hemorrhage. We will give a dose of Ativan for anxiousness. On repeat examination patient states she is having urinary frequency so urinalysis obtained. This was positive for UTI. She will be placed on antibiotics. Patient feeling much better after Ativan. She states that she felt this helped too much and she would want more. Discussed the risks of addiction with this medication and she needs to follow-up with her PCP for outpatient anxiety management. This time she is stable for discharge. Low concern for stroke, intracranial hemorrhage. She is discharged home in stable condition. All questions answered. Lab Data Labs: Laboratory Results - last 24 hr 01/16/21 01/16/21 01/16/21 12:45 12:45 15:15 WBC 6.6 RBC 4.43 Hgb 13.1 Hct 41.3 MCV 93.2 MCH 29.6 MCHC 31.7 L RDW Std Deviation 46.6 H RDW Coeff of Jonathon 13.5 Plt Count 325 MPV 8.8 Immature Gran % (Auto) 0.300 Neut % (Auto) 72.5 H Lymph % (Auto) 18.0 L [place] % (Auto) 7.0 Eos % (Auto) 1.7 Baso % (Auto) 0.5 Absolute Neuts (auto) 4.8 Absolute Lymphs (auto) 1.19 Nucleated RBC % 0 Sodium 140 Potassium 4.2 Chloride 109 H Carbon Dioxide 24.0 Anion Gap 7 BUN 13 Creatinine 0.97 Estim Creat Clear Calc 55.48 Est GFR (MDRD) Af Amer 77 Est GFR (MDRD) Non-Af 64 BUN/Creatinine Ratio 13.4 Glucose 105 Calcium 9.7 Total Bilirubin 0.70 AST 18 ALT 19 Alkaline Phosphatase 93 Total Protein 7.8 Albumin 4.2 Globulin 3.6 Albumin/Globulin Ratio 1.2 Urine Color Yellow Urine Clarity Clear Urine pH 7.0 Ur Specific [place] 1.010 Urine Protein 15 H Urine Glucose (UA) Normal Urine Ketones Negative Urine Occult Blood 10 H Urine Nitrite Positive H Urine Bilirubin Negative Urine Urobilinogen Normal Ur Leukocyte Esterase 100 H Urine RBC 0 SEEN Urine WBC 0-5 SEEN Ur Squamous Epith Cells 0 SEEN Urine Bacteria 2+ Urine Mucus 0 SEEN Radiography Diagnostic Testing: Radiology Impression Brain CT 01/16/21 11:57 IMPRESSION: 1. Slightly limited study due to large amount of beam hardening artifact from vascular coils. No gross acute abnormalities are identified. 2. Underlying senescent change with small vessel ischemia. Individualized dose optimization techniques were used for this CT. at 1357 Reported and signed by: Rony Saucedo MD Electronically Signed: Rony Saucedo MD at 13:56 EDT Tel , Service support , Discharge Plan Triage Chief Complaint: Mental Health ED Provider: Jayson Melgar Dx/Rx/DC Orders Clinical Impression: UTI (urinary tract infection), Anxiousness Instructions: ED Bladder Infection, Female (Adult) Prescriptions: New cephalexin 500 mg capsule 500 mg PO BID 7 Days Qty: 14 RF: 0 No Action oxybutynin chloride 10 mg tablet extended release 24hr 10 mg PO DAILY RF: 0 Ingrezza 40 mg capsule 40 mg PO DAILY RF: 0 amlodipine 10 mg tablet 10 mg PO DAILY RF: 0 aspirin [Adult Low Dose Aspirin] 81 mg tablet,delayed release (DR/EC) 81 mg PO DAILY RF: 0 Lactobacillus acidophilus Capsule 10 mg PO DAILY RF: 0 clopidogrel [Plavix] 75 mg tablet 75 mg PO DAILY RF: 0 trazodone 50 mg tablet 50 mg PO DAILY RF: 0 mecobalamin (vitamin B12) 5,000 mcg tablet,disintegrating PO RF: 0 albuterol sulfate 1 PUFF inhaler 1 - 2 puff INHALATION Q6H PRN PRN (Reason: Sob &/Or Wheezing) RF: 0 citalopram 10 MG tablet 10 mg PO QHS RF: 0 warfarin 5 mg tablet See Rx Instructions PO .COMPLEX RF: 0 rosuvastatin 5 mg tablet 5 mg PO DAILY Qty: 90 RF: 3 Primary Care Provider: Louis Dobbs Referrals: Louis Dobbs MD [Primary Care Provider] - 2 Days Disposition Disposition: Home, self care Discharge Date/Time: 01/16/21 16:14
[2021-01-16] MEDS: LORazepam 2 MG/ML Syringe 1 MG IV (12:35)
[2021-01-16 12:50] LABS: Absolute Lymphocyte Count 1.19 X10^3/uL (0.83-4.51); Absolute Neutrophil Count 4.8 X10^3/uL (2.0-7.7); Basophil# 0.03 X10^3/uL; Basophil% 0.5 % (0-1); Eosinophil# 0.11 X10^3/uL; Eosinophils% 1.7 % (0-5); Hematocrit 41.3 % (37-47); Hemoglobin 13.1 g/dL (12.0-15.0); Lymphocyte # 1.19 X10^3/ul (0.83-4.51); Mean Corp Hgb Conc 31.7 g/dL (32-36); Mean Corpuscular Hgb 29.6 pg (27.0-32.0); Mean Corpuscular Volume 93.2 fL (81-99); Mean Platelet Vol. 8.8 fl (6.2-12.0); Monocyte# 0.46 X10^3/uL; NRBC Flagged by Analyzer 0 % (0-5); Neutrophil # 4.79 X10^3/uL (2.7-7.7); Neutrophil % 72.5 % (47-70); Platelet Count 325 K/mm3 (150-450); RBC Distribution Width CV 13.5 % (11.6-14.6); RBC Distribution Width SD 46.6 fl (35.1-43.9); Red Blood Count 4.43 M/mm3 (4.2-5.4); White Blood Count 6.6 K/mm3 (4.4-11.0)
[2021-01-16 13:08] LABS: ALB/GLOB Ratio 1.2 RATIO (0.9-2.4); AST(SGOT) 18 U/L (15-37); Alanine Aminotransfer ALT/SGPT 19 U/L (13-56); Albumin, Serum 4.2 g/dL (3.2-5.0); Alkaline Phosphatase 93 U/L (45-117); Anion Gap 7 (5-15); BUN 13 mg/dL (7-18); BUN/Creat Ratio 13.4 RATIO (10-20); Calcium,Total 9.7 mg/dL (8.5-10.1); Chloride 109 mmol/L (98-107); Creatinine, Serum 0.97 mg/dL (0.55-1.02); EST Glomerular Filtration Rate 64 mL/min (>60); Est Glom Filt Rate - Afr Amer 77 mL/min (>60); Estimated Creatinine Clearance 55.48 ml/min; Globulin 3.6 g/dL (2.2-4.2); Glucose 105 mg/dL (74-106); Potassium 4.2 mmol/L (3.5-5.1); Protein, Total 7.8 g/dL (6.4-8.2); Sodium Level 140 mmol/L (136-145)
[2021-01-16 15:18] LABS: Mucous, Urine 0 SEEN /hpf (<or=2+); Red Blood Cells-Urine 0 SEEN /hpf (0-5); Squamous Epithelial Cells - UA 0 SEEN /hpf (5-10)
[2021-01-16 15:19] LABS: Color, Urine Yellow (Yellow); Glucose, Dipstick Normal (Normal); Ketone-Dipstick Negative (Negative); Leukocyte Esterase-Dipstick 100 /ul (Negative); Nitrite-Dipstick Positive (Negative); Occult Blood-Urine 10 /ul (Negative); Protein-Dipstick 15 mg/dl (Negative); Urine Bilirubin Dipstick Negative (Negative); Urine Clarity Clear (Clear); Urine Urobilinogen Normal (Normal)
[2021-01-16 15:31] VITALS: BP 132/84; PULSE 71; RESP 22; O2SAT 97
[2021-01-16 15:35] LABS: Bacteria 2+ /hpf (None Seen); White Blood Cells 0-5 SEEN /hpf (0-5)
[2021-01-16] MEDS: Cephalexin 250 MG Capsule 500 MG PO (16:04)
== END 2021-01-16 16:14 | disposition home or self-care (01) ==
PROVIDERS: Emergency Provider Emergency Medicine; PCP Internal Medicine
DX: N39.0 Urinary tract infection, site not specified (principal); F41.9 Anxiety disorder, unspecified; Z86.73 Personal history of transient ischemic attack (TIA), and cerebral infarction without residual deficits
CPT/HCPCS: 70450; 80053; 81001; 85025; 96374; 99285; A4216

== ENCOUNTER 2021-01-22 15:54 | Emergency (ER) | payer MEDICARE, MEDICAID, SELFPAY ==
[2021-01-22 16:09] VITALS: BP 141/79; PULSE 94; RESP 18; TEMP 36.9; O2SAT 98
[2021-01-22 16:13] VITALS: BP 141/79; PULSE 94; RESP 18; TEMP 36.9; O2SAT 97; BMI 30.7
--- NOTE | 2021-01-22 16:24 | EKG12_ITS ---
Test Reason : GENERAL Blood Pressure : / mmHG Vent. Rate : 094 BPM Atrial Rate : 094 BPM P-R Int : 200 ms QRS Dur : 164 ms QT Int : 414 ms P-R-T Axes : 048 -67 085 degrees QTc Int : 517 ms Atrial-sensed ventricular-paced rhythm Abnormal ECG Confirmed by LASHAWN BAZAN, JOCELYN ([id number]), rewrite editor MAYLIN ARGUELLO ([id number]) on 01/25/2021 11:13:08 A M Referred By: MERCEDES Confirmed By:NICOLASA HARDIN MD
--- NOTE | 2021-01-22 16:26 | EDS_ITS ---
HPI History of Present Illness Chief Complaint: General Illness Detail of Chief Complaint: Patient states she is unable to relax. Informant: patient Onset/Context/Timing Onset: Days Context: Gradual Onset Timing: Continuous Current Severity: Mild Maximum Severity: Mild Narrative Narrative: 55-year-old female extensive past medical history including 2 prior strokes, hypertension, valvular heart disease on Coumadin also psychiatric disorder. Patient lives at home. Patient states that she is unable to get settled. She denies any nausea vomiting diarrhea. She denies any headache, chest pain or shortness of breath. She denies any abdominal pain. Reportedly she was seen in this emergency department within the last week or so. Prior similar symptoms: Yes Recent Illness/Hospitalization: No [facility] Medical History Asthma Bipolar disorder Colitis Complete heart block CVA (cerebral vascular accident) Dysphagia as late effect of cerebrovascular accident (CVA) 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 classified elsewhere Hyperlipidemia Hypertension Nicotine dependence Non-ischemic cardiomyopathy Paroxysmal atrial fibrillation Rheumatic mitral stenosis with insufficiency Sick sinus syndrome Stroke/cerebrovascular accident Home Medications albuterol sulfate 1 - 2 puff INHALATION Q6H PRN PRN 06/11/16 [History Last Taken 08/11/16 08:00] citalopram 10 mg PO QHS 07/26/16 [History Last Taken 1 Day Ago ~06/09/19] oxybutynin chloride 10 mg tablet,extended release 24 hr 10 mg PO DAILY 02/14/19 [History Last Taken 1 Day Ago ~06/09/19] valbenazine 40 mg capsule 40 mg PO DAILY 08/29/19 [History Last Taken 09/21/20] rosuvastatin 5 mg tablet 5 mg PO DAILY #90 tab 02/28/20 [Rx Last Taken Unknown] warfarin 5 mg tablet See Rx Instructions PO .COMPLEX 09/14/20 [History Last Taken Unknown] Lactobacillus acidophilus 10 mg PO DAILY 11/27/20 [History Last Taken Unknown] amlodipine 10 mg tablet 10 mg PO DAILY 11/27/20 [History Last Taken Unknown] aspirin 81 mg tablet,delayed release 81 mg PO DAILY 11/27/20 [History Last Taken Unknown] clopidogrel 75 mg tablet 75 mg PO DAILY 11/27/20 [History Last Taken Unknown] mecobalamin (vitamin B12) 5,000 mcg disintegrating tablet mcg PO 11/27/20 [History Last Taken Unknown] trazodone 50 mg tablet 50 mg PO DAILY 11/27/20 [History Last Taken Unknown] cephalexin 500 mg PO BID 7 Days #14 cap 01/16/21 [Rx Last Taken Unknown] Allergy/AdvReac Type Severity Reaction Status Date / Time amoxicillin [Amoxicillin] Allergy Hives Verified 01/16/21 11:39 latex Allergy Rash Verified 01/16/21 11:39 lisinopril Allergy Unknown Verified 01/16/21 11:39 Penicillins Allergy Hives Verified 01/16/21 11:39 venom-honey bee Allergy Swelling Verified 01/16/21 11:39 [bee venom (honey bee)] ciprofloxacin [From Cipro] AdvReac Nausea/Vom/ Verified 01/16/21 11:39 Diarrhea Surgical History History of History of mitral valve replacement with bioprosthetic valve (07/23/09) History of partial colectomy Presence of cardiac pacemaker (09/21/20) Social History Smoking Status: Never smoker alcohol intake: current alcohol intake frequency: holidays/special occasions only substance use type: does not use caffeine: Yes Type: carbonated beverages Number of servings: 1 ROS ROS ED ROS Narrative Patient denies any recent illness. Review of Systems ROS Unobtainable: Denies due to encephalopathy Constitutional Constitutional ED: Denies chills or fever(s) Eyes Eyes: Denies change in vision ENT ENT ED: Denies ear pain or sore throat Cardiovascular Cardiovascular: Denies chest pain Respiratory/Chest Respiratory/Chest: Denies dyspnea Gastrointestinal Gastrointestinal: Denies abdominal pain, diarrhea, nausea or vomiting Genitourinary Genitourinary ED: Denies dysuria Integumentary Denies rash Neurologic Neurologic: Denies headache(s) Psychiatric Psychiatric: Denies depression Endocrine Endocrinology: Denies polyuria Allergic/Immunologic Allergic/Immunologic ED: Denies urticaria EXAM Physical Exam Narrative Exam Narrative: Middle-aged female no acute distress. Is rocking in bed. Appears anxious. Vital signs are stable afebrile. She does not look septic or toxic. She does not look dehydrated. HEENT exam unremarkable. No signs of trauma. Pupils are reactive light. Neck nontender. No lymphadenopathy. Lungs are clear. Heart regular rhythm. Prior sternotomy well-healed. Abdomen soft nontender normal bowel sounds no peritoneal signs. Moving all 4 extremities. No edema. Normal certified medical dosimetrist strength. Normal dorsi plantar flexion. Bruising on both extremities. Back nontender. Neurologically she is awake and alert. Follows commands. Answers questions. Her mannerisms are consistent with underlying psychiatric illness. Const Vital Signs: 01/22/21 16:09 01/22/21 16:13 Temperature 98.4 F 98.4 F Temperature Source Oral Oral Pulse Rate 94 94 Respiratory Rate 18 18 Blood Pressure 141/79 H 141/79 H Blood Pressure Mean 99 99 Pulse Ox 98 97 Oxygen Delivery Method Room Air Room Air HEENT Reports moist mucous membranes Negative for trauma or tenderness Eyes PERRL Neck no lymphadenopathy, supple and no JVD General: Negative for tenderness Chest Wall inspection of chest normal and palpation of chest normal Resp normal respiratory effort and clear to auscultation bilaterally Cardio regular rate, regular rhythm and no murmurs Back/Spine no CVA tenderness General Back: Negative for CVA tenderness Extremity normal to inspection Extremity Narrative: Bruising. General Extremety ED: Negative for edema or tenderness General Extremity: Negative for edema Neuro Sensorium / Orientation: alert Psych Attitude: agitated Mood & Affect: anxious Skin no rashes or lesions noted and no wounds MDM MDM MDM Narrative Medical decision making narrative: Middle-aged female nothing specific on exam other than she seems anxious and agitated. I do not find any obvious metabolic illness. This might be all psychiatric. Due to her history and medications she will undergo laboratory work-up. business services associate evaluate the patient. She has services provided for her and her family at home. Repeat exam unchanged at 7:13 PM she will be discharged home. Lab Data Attestation: I reviewed the patient's lab results. Lab results narrative: CBC normal white count of 7. Hemoglobin 12. Patient is on Coumadin INR 3.1. Electrolytes unremarkable normal gap of 7 normal creatinine. Normal liver enzymes. UA normal. Chest x-ray unremarkable. Paced EKG. Labs: Laboratory Results - last 24 hr 01/22/21 01/22/21 01/22/21 17:30 17:30 17:30 WBC 7.8 RBC 4.16 L Hgb 12.2 Hct 38.2 MCV 91.8 MCH 29.3 MCHC 31.9 L RDW Std Deviation 47.1 H RDW Coeff of Jonathon 13.8 Plt Count 303 MPV 9.4 Immature Gran % (Auto) 0.300 Neut % (Auto) 74.7 H Lymph % (Auto) 16.4 L [place] % (Auto) 6.8 Eos % (Auto) 1.3 Baso % (Auto) 0.5 Absolute Neuts (auto) 5.8 Absolute Lymphs (auto) 1.27 Nucleated RBC % 0 PT 31.2 H INR 3.1 Sodium 143 Potassium 3.9 Chloride 111 H Carbon Dioxide 25.0 Anion Gap 7 BUN 16 Creatinine 0.91 Estim Creat Clear Calc 59.14 Est GFR (MDRD) Af Amer 83 Est GFR (MDRD) Non-Af 68 BUN/Creatinine Ratio 17.5 Glucose 96 Calcium 9.1 Total Bilirubin 0.60 AST 24 ALT 29 Alkaline Phosphatase 85 Total Protein 7.0 Albumin 3.9 Globulin 3.1 Albumin/Globulin Ratio 1.3 Urine Color Urine Clarity Urine pH Ur Specific [place] Urine Protein Urine Glucose (UA) Urine Ketones Urine Occult Blood Urine Nitrite Urine Bilirubin Urine Urobilinogen Ur Leukocyte Esterase Urine RBC Urine WBC Ur Squamous Epith Cells Urine Bacteria Urine Mucus 01/22/21 18:00 WBC RBC Hgb Hct MCV MCH MCHC RDW Std Deviation RDW Coeff of Jonathon Plt Count MPV Immature Gran % (Auto) Neut % (Auto) Lymph % (Auto) [place] % (Auto) Eos % (Auto) Baso % (Auto) Absolute Neuts (auto) Absolute Lymphs (auto) Nucleated RBC % PT INR Sodium Potassium Chloride Carbon Dioxide Anion Gap BUN Creatinine Estim Creat Clear Calc Est GFR (MDRD) Af Amer Est GFR (MDRD) Non-Af BUN/Creatinine Ratio Glucose Calcium Total Bilirubin AST ALT Alkaline Phosphatase Total Protein Albumin Globulin Albumin/Globulin Ratio Urine Color Yellow Urine Clarity Clear Urine pH 6.0 Ur Specific [place] 1.015 Urine Protein Negative Urine Glucose (UA) Normal Urine Ketones Negative Urine Occult Blood Negative Urine Nitrite Negative Urine Bilirubin Negative Urine Urobilinogen Normal Ur Leukocyte Esterase Negative Urine RBC 0 SEEN Urine WBC 0 SEEN Ur Squamous Epith Cells 0 SEEN Urine Bacteria 0 SEEN Urine Mucus 0 SEEN Radiography Chest X-Ray - ED: 1 View, Read by ED Physician, Read by Radiologist, Normal, Heart, Lungs, Mediastinum, Bony Structures and No Acute Disease Diagnostic Testing: Radiology Impression Chest X-Ray 01/22/21 17:38 IMPRESSION: No acute chest disease. Cardiac surgery. Electronically Signed: Hitesh Lee MD at 17:53 EDT Tel , Service support , Rhythm Strip Rhythm Strip: Paced Rate: 94 Ectopy: None EKG Initial EKG: Attestation: I personally reviewed and interpreted this EKG as follows: Interpretation: Paced Comments: Paced EKG rate of 94 unchanged from a prior from October. Prior EKG tracings: available for review Prior: Unchanged Discharge Plan Triage Chief Complaint: General Illness ED Provider: Jian York Dx/Rx/DC Orders Clinical Impression: Anxiousness, Warfarin-induced coagulopathy Instructions: ED Anxiety Reaction Prescriptions: No Action oxybutynin chloride 10 mg tablet extended release 24hr 10 mg PO DAILY RF: 0 Ingrezza 40 mg capsule 40 mg PO DAILY RF: 0 amlodipine 10 mg tablet 10 mg PO DAILY RF: 0 aspirin [Adult Low Dose Aspirin] 81 mg tablet,delayed release (DR/EC) 81 mg PO DAILY RF: 0 Lactobacillus acidophilus Capsule 10 mg PO DAILY RF: 0 clopidogrel [Plavix] 75 mg tablet 75 mg PO DAILY RF: 0 trazodone 50 mg tablet 50 mg PO DAILY RF: 0 mecobalamin (vitamin B12) 5,000 mcg tablet,disintegrating PO RF: 0 albuterol sulfate 1 PUFF inhaler 1 - 2 puff INHALATION Q6H PRN PRN (Reason: Sob &/Or Wheezing) RF: 0 citalopram 10 MG tablet 10 mg PO QHS RF: 0 warfarin 5 mg tablet See Rx Instructions PO .COMPLEX RF: 0 cephalexin 500 mg capsule 500 mg PO BID 7 Days Qty: 14 RF: 0 rosuvastatin 5 mg tablet 5 mg PO DAILY Qty: 90 RF: 3 Primary Care Provider: Louis Dobbs Referrals: Louis Dobbs MD [Primary Care Provider] - 3-5 Days Activity Restrictions/Additional Instructions: Your labs today are unremarkable. Follow-up with your primary care physician. Your Coumadin level was 3.1. Disposition Disposition: Home, self care
[2021-01-22 17:35] LABS: Absolute Lymphocyte Count 1.27 X10^3/uL (0.83-4.51); Absolute Neutrophil Count 5.8 X10^3/uL (2.0-7.7); Basophil# 0.04 X10^3/uL; Basophil% 0.5 % (0-1); Eosinophils% 1.3 % (0-5); Hematocrit 38.2 % (37-47); Hemoglobin 12.2 g/dL (12.0-15.0); Lymphocyte # 1.27 X10^3/ul (0.83-4.51); Lymphocyte % 16.4 % (19-41); Mean Corp Hgb Conc 31.9 g/dL (32-36); Mean Corpuscular Hgb 29.3 pg (27.0-32.0); Mean Corpuscular Volume 91.8 fL (81-99); Mean Platelet Vol. 9.4 fl (6.2-12.0); Monocyte# 0.53 X10^3/uL; Monocyte% 6.8 % (0-10); NRBC Flagged by Analyzer 0 % (0-5); Neutrophil % 74.7 % (47-70); Platelet Count 303 K/mm3 (150-450); RBC Distribution Width CV 13.8 % (11.6-14.6); RBC Distribution Width SD 47.1 fl (35.1-43.9); Red Blood Count 4.16 M/mm3 (4.2-5.4); White Blood Count 7.8 K/mm3 (4.4-11.0)
--- NOTE | 2021-01-22 17:38 | RAD_ITS ---
STUDY: X-RAY CHEST REASON FOR EXAM: Female, 55 years old. weakness TECHNIQUE: Frontal portable view of the chest COMPARISON: 14 September 2020 FINDINGS: Appearance is similar to prior. Lungs are clear. There is no pneumothorax, pulmonary edema or pleural effusions. Cardiac size is normal. There are sternotomy wires and presumed mitral valve mitral annular repair.. Pacemaker is present in the left upper chest with leads terminating in the right atrium and right ventricle. Appearance is stable since prior. RAD/Chest 1 View (Portable) IMPRESSION: No acute chest disease. Cardiac surgery. Electronically Signed: Hitesh Lee MD at 17:53 EDT Tel , Service support ,
[2021-01-22 17:48] LABS: International Normalized Ratio 3.1; Prothrombin Time (Protime)PT. 31.2 SECONDS (11.7-14.9)
[2021-01-22 17:49] LABS: ALB/GLOB Ratio 1.3 RATIO (0.9-2.4); AST(SGOT) 24 U/L (15-37); Alanine Aminotransfer ALT/SGPT 29 U/L (13-56); Albumin, Serum 3.9 g/dL (3.2-5.0); Alkaline Phosphatase 85 U/L (45-117); Anion Gap 7 (5-15); BUN 16 mg/dL (7-18); BUN/Creat Ratio 17.5 RATIO (10-20); Calcium,Total 9.1 mg/dL (8.5-10.1); Chloride 111 mmol/L (98-107); Creatinine, Serum 0.91 mg/dL (0.55-1.02); EST Glomerular Filtration Rate 68 mL/min (>60); Est Glom Filt Rate - Afr Amer 83 mL/min (>60); Estimated Creatinine Clearance 59.14 ml/min; Globulin 3.1 g/dL (2.2-4.2); Glucose 96 mg/dL (74-106); Potassium 3.9 mmol/L (3.5-5.1); Sodium Level 143 mmol/L (136-145)
[2021-01-22 18:03] LABS: Bacteria 0 SEEN /hpf (None Seen); Mucous, Urine 0 SEEN /hpf (<or=2+); Red Blood Cells-Urine 0 SEEN /hpf (0-5); Squamous Epithelial Cells - UA 0 SEEN /hpf (5-10); White Blood Cells 0 SEEN /hpf (0-5)
[2021-01-22 18:07] LABS: Glucose, Dipstick Normal (Normal); Ketone-Dipstick Negative (Negative); Leukocyte Esterase-Dipstick Negative /ul (Negative); Nitrite-Dipstick Negative (Negative); Occult Blood-Urine Negative /ul (Negative); Protein-Dipstick Negative (Negative); Specific Gravity, Urine 1.015 (1.002-1.030); Urine Bilirubin Dipstick Negative (Negative); Urine Urobilinogen Normal (Normal)
--- NOTE | 2021-01-22 18:08 | CM.ED ---
SW Note Referral Source: tappet adjuster Reason: Multiple ED visits per RN Patient reports that she is anxious and has been for 1 week. Patient said that she became anxious after she fell. Patient said that this week has been harder. Patient was asked what helps when she feels anxious and patient said sleep and social work instructor asked if there was anything additional that helped and patient said I don't know. Patient is . Patient has 3 children ages 29, 24 and 12 years of age. Patients 12 year old child is being watched by patient's 29 year old son. Patient reports no concerns regarding her older son watching her 12 year old. Patient resides in an apartment with her 24 year old son and 12 year old son. Patient reports her support is her friend, Angela Ballesteros, and friend Virginia Valdez and the nurses aides. SW asked patient which home health agency she is working with and patient said that she could not recall the name. Patient denied history. Patient graduated from high school. She reported no learning issues but reported she had speech therapy. Patient reports she gets SSD related to her stroke. Patient reports no psych hospitalizations. Patient reports she is linked with Prudence Clark from [facility]. Patient reports she does not have a counselor. Patient reports she is prescribed meds and takes them as prescribed. Patient reports her diagnosis is low grade schizophrenia'. SW asked patient about patient about getting a counselor or this blog writer calling [facility] to obtain a counselor and patient declined. Patient said that she doesn't drive but when asked how she gets to her psychiatry appointment she said a friend drives. Patient said that she has an appointment with her psychiatric provider in 2 weeks. SW asked patient what her triggers are and she said she had a fall. SW asked about other stressors and patient said I don't know. SW asked about coping skills and patient said that she used to walk when I could but now walks with a walker. Patient denied abuse, patient denied AOD and patient denied suicidal or homicidal thoughts and patient denied violence. Patient said that she is safe at home. Plan: SW offered to make earlier appointment for patient at [facility] but patient declined. Patient was provided with handout on the 27/02 phone number for Crisis Team and encouraged her to talk to them for support. RN and MD updated. Home at discharge. Fela DOTY
[2021-01-22 18:10] LABS: Color, Urine Yellow (Yellow); Urine Clarity Clear (Clear)
--- NOTE | 2021-01-22 18:51 | NURSING ---
spoke with pt's brother and updated on care given and findings and that would need ride home
[2021-01-22 19:26] VITALS: PULSE 96; RESP 16; O2SAT 96
== END 2021-01-22 19:31 | disposition home or self-care (01) ==
PROVIDERS: Emergency Provider Emergency Medicine; PCP Internal Medicine
DX: F41.9 Anxiety disorder, unspecified (principal); D68.9 Coagulation defect, unspecified; T45.515A Adverse effect of anticoagulants, initial encounter; Y92.9 Unspecified place or not applicable; E78.5 Hyperlipidemia, unspecified; F31.9 Bipolar disorder, unspecified; I10 Essential (primary) hypertension; I48.0 Paroxysmal atrial fibrillation; I05.2 Rheumatic mitral stenosis with insufficiency; I49.5 Sick sinus syndrome; I42.8 Other cardiomyopathies; I44.2 Atrioventricular block, complete; J45.909 Unspecified asthma, uncomplicated; Z87.19 Personal history of other diseases of the digestive system; Z86.73 Personal history of transient ischemic attack (TIA), and cerebral infarction without residual deficits; Z79.01 Long term (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 anticoagulants; Z79.82 Long term (current) use of aspirin; Z79.899 Other long term (current) drug therapy
CPT/HCPCS: 71045; 80053; 81001; 85025; 85610; 93005; 96360; 99285; A4216

== ENCOUNTER 2021-01-27 10:49 | Observation (INO) | payer MEDICARE, MEDICAID, SELFPAY ==
[2021-01-27 10:53] VITALS: BP 104/63; PULSE 86; RESP 23; TEMP 36.8; O2SAT 98; BMI 30.9
--- NOTE | 2021-01-27 11:35 | CT_ITS ---
EXAM: CT HEAD WITHOUT INTRAVENOUS CONTRAST : 1965 CLINICAL INDICATION: weakness. METAL ARTIFACT REDUCTION SERIES INCLUDED TECHNIQUE: Multiple axial images were obtained of the head without intravenous contrast. This CT exam was performed using one or more of the following dose reduction techniques: automated exposure control, adjustment of the mA and/or kV according to patient size, and/or use of iterative reconstruction technique. This report was created using [employer] report generation technology. COMPARISON: January 16, 2021 FINDINGS: BRAIN AND EXTRA-AXIAL SPACES: Chronic regions of infarction again noted within both cerebral spheres and subcortical region of the right cerebellum. Prominence of the cortical sulci and ventricles related to volume loss change. No intra- or extra-axial hemorrhage. No intracranial mass or mass effect. Basal cisterns are patent. BONES/JOINTS: Unremarkable. No discrete lytic or blastic abnormalities. VASCULATURE: Artifacts from the aneurysm coils and clips again noted. SINUSES: Unremarkable as visualized. Clear. MASTOID AIR CELLS: Unremarkable. Clear. ORBITS: Visualized globes, extraocular muscles, optic nerves and retrobulbar fat appear unremarkable. CT/Brain/Head without Contrast IMPRESSION: 1. Stable chronic ischemic changes. 2. No interval change. Individualized dose optimization techniques were used for this CT. at 1310 Reported and signed by: Danny Moctezuma MD Electronically Signed: Danny Moctezuma MD at 13:09 EDT Tel , Service support ,
--- NOTE | 2021-01-27 11:35 | EKG12_ITS ---
Test Reason : WEAKNESS Blood Pressure : / mmHG Vent. Rate : 087 BPM Atrial Rate : 087 BPM P-R Int : 194 ms QRS Dur : 164 ms QT Int : 428 ms P-R-T Axes : 027 -66 082 degrees QTc Int : 515 ms Atrial-sensed ventricular-paced rhythm Abnormal ECG Confirmed by SATURNINO BAZAN, CHERYLE ([id number]), digital editor MAYLIN ARGUELLO ([id number]) on 01/29/2021 12:44:48 PM Referred By: ANNA Confirmed By:CHERYLE MATAMOROS MD
--- NOTE | 2021-01-27 11:37 | EDS_ITS ---
HPI History of Present Illness Chief Complaint: Weakness Narrative Narrative: Patient presenting with generalized weakness. Patient states that she is unable to care for herself at home. She cannot eat and she cannot drink. She feels as if she needs to be placed in a shelter due to weakness. Patient has history of stroke and suffers from depression and feels she has not been sleeping well and this is why she is too weak to eat and drink. [facility] Medical History (Updated 01/27/21 @ 13:[address] Melissa Marshall MD) Asthma Bipolar disorder Complete heart block CVA (cerebral vascular accident) Dysphagia as late effect of cerebrovascular accident (CVA) 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 classified elsewhere Hyperlipidemia Hypertension Nicotine dependence Non-ischemic cardiomyopathy Paroxysmal atrial fibrillation Rheumatic mitral stenosis with insufficiency Sick sinus syndrome Stroke/cerebrovascular accident Home Medications albuterol sulfate 1 - 2 puff INHALATION Q6H PRN PRN 06/11/16 [History Last Taken 08/11/16 08:00] citalopram 10 mg PO QHS 07/26/16 [History Last Taken 1 Day Ago ~06/09/19] oxybutynin chloride 10 mg tablet,extended release 24 hr 10 mg PO DAILY 02/14/19 [History Last Taken 1 Day Ago ~06/09/19] valbenazine 40 mg capsule 40 mg PO DAILY 08/29/19 [History Last Taken 09/21/20] rosuvastatin 5 mg tablet 5 mg PO DAILY #90 tab 02/28/20 [Rx Last Taken Unknown] warfarin 5 mg tablet See Rx Instructions PO .COMPLEX 09/14/20 [History Last Taken Unknown] Lactobacillus acidophilus 10 mg PO DAILY 11/27/20 [History Last Taken Unknown] amlodipine 10 mg tablet 10 mg PO DAILY 11/27/20 [History Last Taken Unknown] aspirin 81 mg tablet,delayed release 81 mg PO DAILY 11/27/20 [History Last Taken Unknown] clopidogrel 75 mg tablet 75 mg PO DAILY 11/27/20 [History Last Taken Unknown] mecobalamin (vitamin B12) 5,000 mcg disintegrating tablet mcg PO 11/27/20 [History Last Taken Unknown] trazodone 50 mg tablet 50 mg PO DAILY 11/27/20 [History Last Taken Unknown] cephalexin 500 mg PO BID 7 Days #14 cap 01/16/21 [Rx Last Taken Unknown] Allergy/AdvReac Type Severity Reaction Status Date / Time amoxicillin [Amoxicillin] Allergy Hives Verified 01/16/21 11:39 latex Allergy Rash Verified 01/16/21 11:39 lisinopril Allergy Unknown Verified 01/16/21 11:39 Penicillins Allergy Hives Verified 01/16/21 11:39 venom-honey bee Allergy Swelling Verified 01/16/21 11:39 [bee venom (honey bee)] ciprofloxacin [From Cipro] AdvReac Nausea/Vom/ Verified 01/16/21 11:39 Diarrhea Surgical History History of History of mitral valve replacement with bioprosthetic valve (07/23/09) History of partial colectomy Presence of cardiac pacemaker (09/21/20) Social History Smoking Status: Never smoker alcohol intake: current alcohol intake frequency: holidays/special occasions only substance use type: does not use caffeine: Yes Type: carbonated beverages Number of servings: 1 ROS ROS ED Constitutional Constitutional ED: Denies chills or fever(s) Eyes Eyes: Denies blurry vision or change in vision ENT ENT ED: Denies ear pain, rhinorrhea or sore throat Cardiovascular Cardiovascular: Denies chest pain or palpitations Respiratory/Chest Respiratory/Chest: Denies cough or dyspnea Gastrointestinal Gastrointestinal: Denies abdominal pain or nausea Genitourinary Genitourinary ED: Denies dysuria or hematuria Integumentary Reports other Details: Multiple bruises ; Denies abscess or rash Neurologic Neurologic: Reports weakness Psychiatric Psychiatric: Reports anxiety; Denies depression EXAM Physical Exam Const Vital Signs: 01/27/21 10:53 Temperature 98.2 F Temperature Source Oral Pulse Rate 86 Respiratory Rate 23 H Blood Pressure 104/63 Blood Pressure Mean 76 Pulse Ox 98 Oxygen Delivery Method Room Air Positive obese General Appearance ED: NAD Nutritional Appearance: obese HEENT Reports moist mucous membranes Negative for trauma Eyes PERRL and EOMs intact bilaterally Chest Wall inspection of chest normal and palpation of chest normal Resp normal respiratory effort and clear to auscultation bilaterally Cardio regular rate and regular rhythm Neuro oriented x3 Sensorium / Orientation: alert Skin Skin Narrative: Large bruise on the posterior of right upper arm. MDM MDM MDM Narrative Medical decision making narrative: Patient presenting with generalized weakness and wishing to be admitted to a shelter. Her lab work is fairly unremarkable with exception of a mildly elevated bilirubin at 1.5. Urinalysis is negative for infection. Chest x-ray on my interpretation shows no acute cardiopulmonary process. EKG per my interpretation is a paced rhythm at 87 bpm. Patient's vital signs are stable and she is afebrile. Patient case was discussed with vp digital marketing social media and crm who felt that she would not be able to get into a facility from the ED and therefore patient will be admitted for placement. Impression: 1. Generalized weakness Lab Data Attestation: I reviewed the patient's lab results. Labs: Laboratory Results - last 24 hr 01/27/21 01/27/21 01/27/21 12:25 12:25 12:25 WBC 10.0 RBC 3.59 L Hgb 10.8 L Hct 32.5 L MCV 90.5 MCH 30.1 MCHC 33.2 RDW Std Deviation 46.8 H RDW Coeff of Jonathon 14.3 Plt Count 308 MPV 9.8 Immature Gran % (Auto) 0.500 Neut % (Auto) 78.7 H Lymph % (Auto) 13.1 L [place] % (Auto) 6.1 Eos % (Auto) 1.3 Baso % (Auto) 0.3 Absolute Neuts (auto) 7.9 H Absolute Lymphs (auto) 1.31 Nucleated RBC % 0 PT 26.8 H INR 2.6 Sodium 139 Potassium 4.1 Chloride 106 Carbon Dioxide 27.0 Anion Gap 6 BUN 19 H Creatinine 0.93 Estim Creat Clear Calc 57.87 Est GFR (MDRD) Af Amer 81 Est GFR (MDRD) Non-Af 67 BUN/Creatinine Ratio 20.3 H Glucose 85 Calcium 9.0 Total Bilirubin 1.50 H AST 48 H ALT 34 Alkaline Phosphatase 87 Troponin I High Sens 5.2 Total Protein 6.6 Albumin 3.6 Globulin 3.0 Albumin/Globulin Ratio 1.2 Urine Color Urine Clarity Urine pH Ur Specific [place] Urine Protein Urine Glucose (UA) Urine Ketones Urine Occult Blood Urine Nitrite Urine Bilirubin Urine Urobilinogen Ur Leukocyte Esterase Urine RBC Urine WBC Ur Squamous Epith Cells Urine Bacteria Urine Mucus 01/27/21 13:20 WBC RBC Hgb Hct MCV MCH MCHC RDW Std Deviation RDW Coeff of Jonathon Plt Count MPV Immature Gran % (Auto) Neut % (Auto) Lymph % (Auto) [place] % (Auto) Eos % (Auto) Baso % (Auto) Absolute Neuts (auto) Absolute Lymphs (auto) Nucleated RBC % PT INR Sodium Potassium Chloride Carbon Dioxide Anion Gap BUN Creatinine Estim Creat Clear Calc Est GFR (MDRD) Af Amer Est GFR (MDRD) Non-Af BUN/Creatinine Ratio Glucose Calcium Total Bilirubin AST ALT Alkaline Phosphatase Troponin I High Sens Total Protein Albumin Globulin Albumin/Globulin Ratio Urine Color Yellow Urine Clarity Clear Urine pH 6.0 Ur Specific [place] 1.010 Urine Protein Negative Urine Glucose (UA) Normal Urine Ketones 5 H Urine Occult Blood 150 H Urine Nitrite Negative Urine Bilirubin Negative Urine Urobilinogen Normal Ur Leukocyte Esterase 25 H Urine RBC 0-5 SEEN Urine WBC 0-5 SEEN Ur Squamous Epith Cells 0-5 SEEN Urine Bacteria 0 SEEN Urine Mucus 0 SEEN Radiography Diagnostic Testing: Radiology Impression Brain CT 01/27/21 11:35 IMPRESSION: 1. Stable chronic ischemic changes. 2. No interval change. Individualized dose optimization techniques were used for this CT. at 1310 Reported and signed by: Danny Moctezuma MD Electronically Signed: Danny Moctezuma MD at 13:09 EDT Tel , Service support , Chest X-Ray 01/27/21 12:55 IMPRESSION: No radiographic evidence of acute cardiopulmonary disease. No interval change. at 1311 Reported and signed by: Danny Moctezuma MD Electronically Signed: Danny Moctezuma MD at 13:10 EDT Tel , Service support , Discharge Plan Triage Chief Complaint: Weakness ED Provider: Tenzin Melendez Dx/Rx/DC Orders Prescriptions: No Action oxybutynin chloride 10 mg tablet extended release 24hr 10 mg PO DAILY RF: 0 Ingrezza 40 mg capsule 40 mg PO DAILY RF: 0 amlodipine 10 mg tablet 10 mg PO DAILY RF: 0 aspirin [Adult Low Dose Aspirin] 81 mg tablet,delayed release (DR/EC) 81 mg PO DAILY RF: 0 Lactobacillus acidophilus Capsule 10 mg PO DAILY RF: 0 clopidogrel [Plavix] 75 mg tablet 75 mg PO DAILY RF: 0 trazodone 50 mg tablet 50 mg PO DAILY RF: 0 mecobalamin (vitamin B12) 5,000 mcg tablet,disintegrating PO RF: 0 albuterol sulfate 1 PUFF inhaler 1 - 2 puff INHALATION Q6H PRN PRN (Reason: Sob &/Or Wheezing) RF: 0 citalopram 10 MG tablet 10 mg PO QHS RF: 0 warfarin 5 mg tablet See Rx Instructions PO .COMPLEX RF: 0 cephalexin 500 mg capsule 500 mg PO BID 7 Days Qty: 14 RF: 0 rosuvastatin 5 mg tablet 5 mg PO DAILY Qty: 90 RF: 3 Primary Care Provider: Louis Dobbs
[2021-01-27 12:44] LABS: Absolute Lymphocyte Count 1.31 X10^3/uL (0.83-4.51); Absolute Neutrophil Count 7.9 X10^3/uL (2.0-7.7); Basophil# 0.03 X10^3/uL; Basophil% 0.3 % (0-1); Eosinophil# 0.13 X10^3/uL; Eosinophils% 1.3 % (0-5); Hematocrit 32.5 % (37-47); Hemoglobin 10.8 g/dL (12.0-15.0); Lymphocyte # 1.31 X10^3/ul (0.83-4.51); Lymphocyte % 13.1 % (19-41); Mean Corp Hgb Conc 33.2 g/dL (32-36); Mean Corpuscular Hgb 30.1 pg (27.0-32.0); Mean Corpuscular Volume 90.5 fL (81-99); Mean Platelet Vol. 9.8 fl (6.2-12.0); Monocyte# 0.61 X10^3/uL; Monocyte% 6.1 % (0-10); NRBC Flagged by Analyzer 0 % (0-5); Neutrophil # 7.87 X10^3/uL (2.7-7.7); Neutrophil % 78.7 % (47-70); Platelet Count 308 K/mm3 (150-450); RBC Distribution Width CV 14.3 % (11.6-14.6); RBC Distribution Width SD 46.8 fl (35.1-43.9); Red Blood Count 3.59 M/mm3 (4.2-5.4)
[2021-01-27 12:46] LABS: International Normalized Ratio 2.6; Prothrombin Time (Protime)PT. 26.8 SECONDS (11.7-14.9)
--- NOTE | 2021-01-27 12:55 | RAD_ITS ---
History: wekness EXAMINATION/TECHNIQUE: XR Chest 1 View: Portable COMPARISON: January 22, 2021 FINDINGS: LINES/DEVICES: Cardiac pacemaker wires and a mitral valve prosthesis remain in place. LUNGS: No consolidation, edema or effusion. No pneumothorax. MEDIASTINUM AND CARDIOVASCULAR STRUCTURES: Cardiac silhouette not enlarged. Central airways and mediastinal contour are unremarkable. BONES AND SOFT TISSUES: Unremarkable. RAD/Chest 1 View (Portable) IMPRESSION: No radiographic evidence of acute cardiopulmonary disease. No interval change. at 1311 Reported and signed by: Danny Motcezuma MD Electronically Signed: Danny Moctezuma MD at 13:10 EDT Tel , Service support ,
[2021-01-27 12:56] LABS: ALB/GLOB Ratio 1.2 RATIO (0.9-2.4); AST(SGOT) 48 U/L (15-37); Alanine Aminotransfer ALT/SGPT 34 U/L (13-56); Albumin, Serum 3.6 g/dL (3.2-5.0); Alkaline Phosphatase 87 U/L (45-117); Anion Gap 6 (5-15); BUN 19 mg/dL (7-18); BUN/Creat Ratio 20.3 RATIO (10-20); Chloride 106 mmol/L (98-107); Creatinine, Serum 0.93 mg/dL (0.55-1.02); EST Glomerular Filtration Rate 67 mL/min (>60); Est Glom Filt Rate - Afr Amer 81 mL/min (>60); Estimated Creatinine Clearance 57.87 ml/min; Glucose 85 mg/dL (74-106); Potassium 4.1 mmol/L (3.5-5.1); Protein, Total 6.6 g/dL (6.4-8.2); Sodium Level 139 mmol/L (136-145); Troponin-I HS 5.2 pg/mL (3.0-53.7)
[2021-01-27 13:25] LABS: Bacteria 0 SEEN /hpf (None Seen); Mucous, Urine 0 SEEN /hpf (<or=2+)
[2021-01-27 13:28] LABS: Color, Urine Yellow (Yellow); Glucose, Dipstick Normal (Normal); Ketone-Dipstick 5 mg/dl (Negative); Leukocyte Esterase-Dipstick 25 /ul (Negative); Nitrite-Dipstick Negative (Negative); Occult Blood-Urine 150 /ul (Negative); Protein-Dipstick Negative (Negative); Urine Bilirubin Dipstick Negative (Negative); Urine Clarity Clear (Clear); Urine Urobilinogen Normal (Normal)
[2021-01-27 13:39] LABS: Red Blood Cells-Urine 0-5 SEEN /hpf (0-5); Squamous Epithelial Cells - UA 0-5 SEEN /hpf (5-10); White Blood Cells 0-5 SEEN /hpf (0-5)
--- NOTE | 2021-01-27 14:15 | HP.PCM.HOS_ITS ---
[facility] - General General Date of Admission: 01/27/21 Date of Service: 01/27/21 Chief Complaint: Weakness. [facility] Narrative FROILAN GARCÍA, is a 55 F with past medical history as mentioned below presented to the emergency room because of weakness. Patient complained of generalized weakness, not able to ambulate that started over the last 5 days. Patient stated that she cannot eat or drink as well. When I asked her why she cannot eat or drink, she stated that she has very poor appetite. She reported insomnia for the last several days and she has not able to sleep at all at night. She feels depressed. She denied suicidal ideations or intentions. She mentioned that she lives at home with her sons and her son cooks for her and helps her. She denied chest pain or shortness of breath. She denied difficulty swallowing or pain during swallowing. She denied abdominal pain, nausea or vomiting. She denied constipation or diarrhea. She denied urinary symptoms. She denied fever or chills. She has history of depression, has been on 3 different antidepressant medications and she follows up with psychiatry as outpatient. She stated that she saw her psychiatrist on 1 month ago, medication adjusted but she kept feeling the same way without changes. She will history of paroxysmal atrial fibrillation and she has been on Coumadin for anticoagulation. She is a history of sick sinus syndrome status post pacemaker. In the emergency department, her vital signs were stable. Her routine blood work was remarkable for hemoglobin of 10.8 g/dL which is chronic, otherwise normal. LFT was unremarkable. EKG revealed paced rhythm, no acute changes. Troponin was negative. Urinalysis showed no evidence of UTI. CT scan brain showed no acute findings. Chest x-ray showed no acute infiltrate or consolidation. Patient is being admitted for physical debility, functional decline and acute depression and she may need placement to SNF. [facility] Medical History (Updated 01/27/21 @ 14:[address] Melissa Marshall MD) Anemia Anxiety Asthma Bipolar disorder Complete heart block Congestive heart failure (CHF) CVA (cerebral vascular accident) Dysphagia as late effect of cerebrovascular accident (CVA) 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 classified elsewhere Former smoker Hyperlipidemia Hypertension Myocardial infarct Nicotine dependence Non-ischemic cardiomyopathy Paroxysmal atrial fibrillation Rheumatic mitral stenosis with insufficiency Schizophrenia Sick sinus syndrome Stroke/cerebrovascular accident Home Medications citalopram 10 mg PO QHS 07/26/16 [History Last Taken 1 Day Ago ~06/09/19] oxybutynin chloride 10 mg tablet,extended release 24 hr 10 mg PO DAILY 02/14/19 [History Last Taken 1 Day Ago ~06/09/19] valbenazine 40 mg capsule 40 mg PO DAILY 08/29/19 [History Last Taken 09/21/20] rosuvastatin 5 mg tablet 5 mg PO DAILY #90 tab 02/28/20 [Rx Last Taken Unknown] warfarin 5 mg tablet See Rx Instructions PO .COMPLEX 09/14/20 [History Last Taken Unknown] amlodipine 10 mg tablet 10 mg PO DAILY 11/27/20 [History Last Taken Unknown] aspirin 81 mg tablet,delayed release 81 mg PO DAILY 11/27/20 [History Last Taken Unknown] clopidogrel 75 mg tablet 75 mg PO DAILY 11/27/20 [History Last Taken Unknown] trazodone 50 mg tablet 50 mg PO DAILY 11/27/20 [History Last Taken Unknown] aripiprazole [Abilify] 2.5 mg PO BID 01/27/21 [History Last Taken 01/27/21] Allergy/AdvReac Type Severity Reaction Status Date / Time amoxicillin [Amoxicillin] Allergy Hives Verified 01/16/21 11:39 latex Allergy Rash Verified 01/16/21 11:39 lisinopril Allergy Unknown Verified 01/16/21 11:39 Penicillins Allergy Hives Verified 01/16/21 11:39 venom-honey bee Allergy Swelling Verified 01/16/21 11:39 [bee venom (honey bee)] ciprofloxacin [From Cipro] AdvReac Nausea/Vom/ Verified 01/16/21 11:39 Diarrhea Surgical History History of History of mitral valve replacement with bioprosthetic valve (07/23/09) History of partial colectomy Presence of cardiac pacemaker (09/21/20) Social History Smoking Status: Former smoker alcohol intake: current alcohol intake frequency: holidays/special occasions only substance use type: does not use caffeine: Yes Type: carbonated beverages Number of servings: 1 ROS Constitutional Constitutional: Reports anorexia, fatigue, malaise and weakness; Denies chills or fever(s) Eyes Eyes: Denies blurry vision, change in eye color, change in vision, double vision or eye pain ENT HEENT: Denies ear discharge, ear pain, epistaxis, headache(s), nasal congestion, post nasal drip or sore throat Cardiovascular Cardiovascular: Denies chest pain, dyspnea on exertion, edema, lightheadedness, orthopnea, palpitations, paroxysmal nocturnal dyspnea or syncope Respiratory/Chest Respiratory/Chest: Denies cough, dyspnea, hemoptysis, productive cough, shortness of breath at rest, shortness of breath with exertion or wheezing Gastrointestinal Gastrointestinal: Denies abdominal pain, constipation, diarrhea, hematemesis, hematochezia, melena, nausea or vomiting Genitourinary Genitourinary: Denies burning urination, dysuria, hematuria, urinary hesitancy or urinary urgency Musculoskeletal Musculoskeletal: Denies arthralgias, back pain, joint pain, joint swelling, myalgias or neck pain Neurologic Neurologic: Denies confusion, dizziness, focal weakness, headache(s), numbness, paresthesias, seizures, tingling, tremor(s) or vertigo Psychiatric Psychiatric: Reports depression; Denies anxiety, hallucinations, homicidal idea tion or suicidal ideation Endocrine Endocrinology: Denies change in body appearance, cold intolerance, heat intolerance, polydipsia or polyuria Hematologic/Lymphatic Hematologic/Lymphatic: Denies easy bleeding, easy bruising or lymphadenopathy Allergic/Immunologic Allergic/Immunologic: Denies itchy eyes, rhinitis, throat swelling, tongue swelling, hives, urticaria or wheezing Vital Signs Vital Signs Vital Signs: 01/27/21 10:53 Temperature 98.2 F Temperature Source Oral Pulse Rate 86 Respiratory Rate 23 H Blood Pressure 104/63 Blood Pressure Mean 76 Pulse Ox 98 Oxygen Delivery Method Room Air Weight Weight: 174 lb 13.225 oz Body Mass Index (BMI) 30.9 Physical Exam Const alert, oriented x3, no apparent distress and no limitations Constitutional Narrative: Depressed, flat affect. General Appearance: cooperative HEENT normocephalic, head/scalp atraumatic, external ears normal, external nose normal and moist oral mucous membranes Eyes PERRL, EOMs intact bilaterally, conjunctivae normal and no scleral icterus General Eye: normal appearance of both eyes Neck no lymphadenopathy, supple, no meningeal signs, no JVD and no carotid bruits Lymph Lymphatic: no lymphadenopathy noted Resp normal respiratory effort, normal air movement and clear to auscultation bi laterally Auscultation: Negative for crackles, rales, rhonchi or wheezes Cardio regular rate, regular rhythm, S1 normal heart sound, S2 normal heart sound, no murmurs and no JVD GI normal to inspection, nondistended, normoactive bowel sounds, soft to palpation, non-tender and non-distended; Negative for hepatosplenomegaly Extremity normal to inspection, full ROM and no clubbing, cyanosis or edema Skin no rashes or lesions noted, no wounds and no petechiae Skin Narrative: Ecchymosis on the right upper extremity. Neuro oriented x3, CN's II-XII intact bilaterally and moves all extremities Sensorium / Orientation: alert Speech: speech normal Motor Exam: strength 5/5 throughout Psych denies hallucinations, denies homicidal ideation and denies suicidal ideation Mood & Affect: depressed Thought Content: normal thought content Results Lab / Micro Data Result Diagrams: 01/27/21 12:25 01/27/21 12:25 Labs: Laboratory Results - last 24 hr 01/27/21 01/27/21 01/27/21 12:25 12:25 12:25 WBC 10.0 RBC 3.59 L Hgb 10.8 L Hct 32.5 L MCV 90.5 MCH 30.1 MCHC 33.2 RDW Std Deviation 46.8 H RDW Coeff of Jonathon 14.3 Plt Count 308 MPV 9.8 Immature Gran % (Auto) 0.500 Neut % (Auto) 78.7 H Lymph % (Auto) 13.1 L [place] % (Auto) 6.1 Eos % (Auto) 1.3 Baso % (Auto) 0.3 Absolute Neuts (auto) 7.9 H Absolute Lymphs (auto) 1.31 Nucleated RBC % 0 PT 26.8 H INR 2.6 Sodium 139 Potassium 4.1 Chloride 106 Carbon Dioxide 27.0 Anion Gap 6 BUN 19 H Creatinine 0.93 Estim Creat Clear Calc 57.87 Est GFR (MDRD) Af Amer 81 Est GFR (MDRD) Non-Af 67 BUN/Creatinine Ratio 20.3 H Glucose 85 Calcium 9.0 Total Bilirubin 1.50 H AST 48 H ALT 34 Alkaline Phosphatase 87 Troponin I High Sens 5.2 Total Protein 6.6 Albumin 3.6 Globulin 3.0 Albumin/Globulin Ratio 1.2 Urine Color Urine Clarity Urine pH Ur Specific Fellows Urine Protein Urine Glucose (UA) Urine Ketones Urine Occult Blood Urine Nitrite Urine Bilirubin Urine Urobilinogen Ur Leukocyte Esterase Urine RBC Urine WBC Ur Squamous Epith Cells Urine Bacteria Urine Mucus 01/27/21 13:20 WBC RBC Hgb Hct MCV MCH MCHC RDW Std Deviation RDW Coeff of Jonathon Plt Count MPV Immature Gran % (Auto) Neut % (Auto) Lymph % (Auto) [place] % (Auto) Eos % (Auto) Baso % (Auto) Absolute Neuts (auto) Absolute Lymphs (auto) Nucleated RBC % PT INR Sodium Potassium Chloride Carbon Dioxide Anion Gap BUN Creatinine Estim Creat Clear Calc Est GFR (MDRD) Af Amer Est GFR (MDRD) Non-Af BUN/Creatinine Ratio Glucose Calcium Total Bilirubin AST ALT Alkaline Phosphatase Troponin I High Sens Total Protein Albumin Globulin Albumin/Globulin Ratio Urine Color Yellow Urine Clarity Clear Urine pH 6.0 Ur Specific Fellows 1.010 Urine Protein Negative Urine Glucose (UA) Normal Urine Ketones 5 H Urine Occult Blood 150 H Urine Nitrite Negative Urine Bilirubin Negative Urine Urobilinogen Normal Ur Leukocyte Esterase 25 H Urine RBC 0-5 SEEN Urine WBC 0-5 SEEN Ur Squamous Epith Cells 0-5 SEEN Urine Bacteria 0 SEEN Urine Mucus 0 SEEN Radiology Impression Brain CT 01/27/21 11:35 IMPRESSION: 1. Stable chronic ischemic changes. 2. No interval change. Individualized dose optimization techniques were used for this CT. at 1310 Reported and signed by: Danny Moctezuma MD Electronically Signed: Danny Moctezuma MD at 13:09 EDT Tel , Service support , Chest X-Ray 01/27/21 12:55 IMPRESSION: No radiographic evidence of acute cardiopulmonary disease. No interval change. at 1311 Reported and signed by: Danny Moctezuma MD Electronically Signed: Danny Moctezuma MD at 13:10 EDT Tel , Service support , Assessment & Plan Assessment/Plan (1) Depression: (2) Physical debility: (3) Hyperlipidemia: QUALIFIERS: Hyperlipidemia type: unspecified Qualified Code(s): E78.5 - Hyperlipidemia, unspecified (4) History of stroke: (5) Non-ischemic cardiomyopathy: (6) Sick sinus syndrome: (7) Complete heart block: (8) History of mitral valve replacement with bioprosthetic valve: (9) Hypertension: QUALIFIERS: Hypertension type: essential hypertension Qualified Code(s): I10 - Essential (primary) hypertension (10) Paroxysmal atrial fibrillation: PLAN: This is a 55 years old female patient presented to the emergency room because of weakness, not able to eat or drink because of poor appetite and having insomnia and she requested placement to group home facility. #1 physical debility/functional decline/poor oral intake: Work-up in the ED was unremarkable, no infectious process. Chest x-ray was unremarkable. CT scan brain showed no acute findings. Her vital signs have been stable, afebrile. Routine blood work was unremarkable, no leukocytosis. Urinalysis showed no evidence of infection. [facility] fluids, Tylenol pain, Zofran as needed, PT OT evaluation and treatment, social work and case management consult. #2 depression: Patient does have a history of depression, has been on 3 different antidepressant medications. She reported poor appetite, insomnia for several weeks. She denied suicidal or homicidal ideations or intentions. She does have a psychiatrist that she sees at the counseling center. She is on valbenazine which is treatment for tardive dyskinesia. Plan: Continue Abilify, citalopram, increase trazodone 200 mg p.o. daily. #3 paroxysmal atrial fibrillation: Rate is stable, continue Coumadin for anticoagulation. She is not on rate control medicine. #4 sick sinus syndrome/complete heart block: Status post pacemaker, stable. #5 status post mitral valve replacement with bioprosthetic valve: Stable, no acute issues. #6 hypertension, blood pressure stable, continue Norvasc. #7 history of stroke: Stable, continue aspirin, statins and Plavix. #8 DVT prophylaxis: On Coumadin, INR is 2.6. This note was generated with ConnectionPlus[employer] software. It may contain incorrect words, spelling, and punctuation that were not noted in checking the note before signing. Charges/Coding Visit Charges OBSV E&M: 99894 Initial observation care L3
[2021-01-27 14:17] VITALS: BP 124/74; PULSE 98; RESP 18; TEMP 36.6; O2SAT 98
--- NOTE | 2021-01-27 14:27 | NURSING ---
MED SURG OBS ASHELFAH GENERALIZED WEAKNESS
--- NOTE | 2021-01-27 14:32 | CM.ED ---
AURORA Note: Referral Source: MD Referral Reason: Patient wants placement Patient was curled up on her bed in the ED. No eye contact with this ghost writer. Patient appeared to talk in baby talk. SW asked patient why she is in the ED and patient said things went haywire. Patient said I can't eat and I can't drink. Patient said I can't change my underwear. Patient was asked what changed and patient said I don't know. Patient previously reported to this ghost writer that she had home health. SW asked patient about her home health and patient reports what is that?. Patient was asked who her home health provider was and patient said I don't know. SW referenced that last week patient had said that she had an appointment with her psychiatrist in the upcoming 2 weeks (1 week now) and patient said she didn't know when her appointment was and said I don't drive. SW referenced previous conversation where patient had stated that her friend drives her to appointments. Patient said that her friend cant drive me anymore and said that the friends' daughter stopped her. Patient reports she has no counselor but sees a psychiatrist. Patient reports she is med compliant. Patient reports that her psychiatrist gave her trazodone to sleep last month and it has not helped. SW asked patient about her Meds and patient was able to name some psychiatric Meds and then said I don't know. Patient reports psychiatric diagnosis of schizophrenia and bipolar and reports she receives SSDI and is her own payee. SW asked patient how much she is sleeping and she said 2-4 hours at night but not all at the same time. Patient said that she has lost weight but was unsure how much weight she had lost. Patient reports she has not been able to bathe or shower and the Home Health health staff gives her a sponge bath. Patient said that she did not get out of bed today. Patient reports she does not cook. Patient reports she is unable to dress and her 12 year old helps her dress. Patient uses depends for the past 2 weeks.Patient said that she has not paid bills for the past 2 weeks. Patient said that she has been sleeping in the living room. Patient said that she has been unable to walk from the living room to the kitchen for the past 2 days. Patient said that she has not been able to walk from the living room to the bathroom since her discharge from [facility]. Patient reports she drove until September. Patient reports at home she has a walker, shower housekeeper, elevated toiler seat and a gripper. Patient said that she just got the gripper and she has not used it yet. Patient said I am trying to learn all the stuff again and stated her loss of skills was related to her aneurysm. SW asked patient if there is anything else that patient would think was important for staff to know and patient said it's all important to me. SW noted that patient's brother, Contreras , is listed as a support and social media campaign manager asked if her would be a support and patient said I don't know right now and stated he got upset with me the last time I was here. Patient reports that her condition has gotten alot worse since this ghost writer met with her on Monday. Patient said all this happened when referencing her current conditions. SW asked patient if she thought there was a trigger to her current condition and she said no. Patient reports that her 12 year old son is currently with patient's older son, age 29, at her older son's house. Patient signed RAMIREZ for [facility] and indicated she follows up with psychiatry and would like to have a counselor. Patient said that she previously was at [facility] 12 years ago and [facility] a month ago. Of note, this ghost writer referenced Alysa Guerrero as Alysa Dye, incorrectly, and patient corrected this ghost writer. Plan: To be determined Fela DOTY
[2021-01-27 14:58] VITALS: BMI 29.7
[2021-01-27 15:01] VITALS: BP 109/73; PULSE 89; RESP 16; TEMP 36.5; O2SAT 98
[2021-01-27] MEDS: Dextrose 5%/0.9% NaCl 1,000 ML 100 ML IV (15:10)
[2021-01-27 15:35] VITALS: PULSE 92
--- NOTE | 2021-01-27 15:37 | CM.ED ---
AURORA Note Patient signed Release of Information (RAMIREZ) for [facility]. AURORA called [facility] and spoke to Rupa. Inquired as to how to make a referral for patient for counseling services. Patient is already linked with [facility]. Rupa will check on referral process and call this headline writer back. AURORA received call from Rupa at [facility]. Rupa said that the patient's provider needs to make a referral for counseling. AURORA was transferred to Clemente Elliott and this headline writer left voice mail for Clemente Elliott requesting counselor for patient. AURORA left call back number for patient. Plan: To be determined Fela DOTY
--- NOTE | 2021-01-27 16:14 | NT.THERAPY_ITS ---
Medical Nutrition Therapy - History Nutrition Services has been consulted to:: Manage nutrient details of diet order Current diet/nutrition support order:: Cardiac - Anthropometric Measurements Height:: 5 ft 3 in Weight:: 76.158 kg Body Mass Index (BMI):: 29.7 - Relevant Labs Relevant Labs:: RBC 3.59 M/mm3 (4.2-5.4) L 01/27/21 12:25 Hgb 10.8 g/dL (12.0-15.0) L 01/27/21 12:25 Hct 32.5 % (37-47) L 01/27/21 12:25 RDW Std Deviation 46.8 fl (35.1-43.9) H 01/27/21 12:25 Neut % (Auto) 78.7 % (47-70) H 01/27/21 12:25 Lymph % (Auto) 13.1 % (19-41) L 01/27/21 12:25 Absolute Neuts (auto) 7.9 X10^3/uL (2.0-7.7) H 01/27/21 12:25 PT 26.8 SECONDS (11.7-14.9) H 01/27/21 12:25 BUN 19 mg/dL (7-18) H 01/27/21 12:25 BUN/Creatinine Ratio 20.3 RATIO (10-20) H 01/27/21 12:25 Total Bilirubin 1.50 mg/dL (0.20-1.00) H 01/27/21 12:25 AST 48 U/L (15-37) H 01/27/21 12:25 - Assessment Food and Nutrient Intake: PO intake to be established on PCU. Pt reports poor po intake x 2 wks, but not able to say why appetite has been poor. UBW: 77.111 kg - but unsure of time frame - per EMR wt 10/08/20 82.3 kg - wt loss of 7.5% (sig for malnutrition). 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 Status: Active Problem - Nutrition Diagnosis: Clinical Problem Biting/Chewing Difficulty Clinical Problem - Etiology: related to edentulous and no dentures Clinical Problem - Signs/Symptoms: as evidenced by pt requesting puree diet consistencies at meals Status: Active Problem - Protein Calorie Malnutrition Evidence of Malnutrition Exists: Yes Severe Protein Calorie Malnutrition:: Social/Behavioral/Environmental - Nutrition Intervention Nutrition Prescription: [id number] yuly/day (RMR x 1.2-1.3). 76-91 gm pro/day (1- 1.2 gm/kg). 2010 ml fluid/day (per ASPEN guidelines) - Food / Nutrient Delivery Interventions Summary of nutrition intervention:: Adjust diet order - puree consistency per pt request, Provide oral nutrition supplement - 8 oz vanilla ensure enlive per pt preference Nutrition support ordered as / adjusted to:: Will change diet to liberal Regular PUREE - consistency per pt request and liberal diet d/t s/s of malnutrition. Will provide 8 oz vanilla ensure enlive w/ meals for increased nutrition if consumed. - MNT Monitoring Active Nutrition Patient: Yes Nutrition Status: Requires Follow Up 3-5 Days - please contact RD/LD at [phone] if questions/concerns
[2021-01-27 16:16] VITALS: BMI 29.7
[2021-01-27 20:56] VITALS: BP 113/58; PULSE 84; RESP 14; TEMP 36.9; O2SAT 98
[2021-01-27] MEDS: ARIPiprazole 5 MG Tablet 2.5 MG PO (20:59)
[2021-01-27] MEDS: traZODone 100 MG Tablet PO (20:59)
[2021-01-27] MEDS: Atorvastatin Calcium 10 MG Tablet PO (20:59)
[2021-01-27] MEDS: Zolpidem Tartrate 5 MG Tablet PO (20:59)
[2021-01-27 21:05] VITALS: O2SAT 98
--- NOTE | 2021-01-27 21:21 | NURSING ---
Callled pt's brother, Contreras, per her request to notify him that she was in the hospital. PRAVIN Ward
[2021-01-27] MEDS: Acetaminophen 325 MG Tablet 650 MG PO (23:37)
[2021-01-28 03:00] VITALS: BP 128/56; PULSE 88; RESP 18; TEMP 37; O2SAT 94
[2021-01-28 07:08] LABS: International Normalized Ratio 3.2; Prothrombin Time (Protime)PT. 31.6 SECONDS (11.7-14.9)
[2021-01-28] MEDS: Citalopram 10 MG Tablet PO (08:09)
[2021-01-28] MEDS: Tolterodine Tartrate 2 MG CAP.SA PO (08:09)
[2021-01-28] MEDS: Aspirin E.C. 81 MG Tablet PO (08:09)
[2021-01-28] MEDS: ARIPiprazole 5 MG Tablet 2.5 MG PO ×2 (08:09→20:09)
[2021-01-28] MEDS: amLODIPine 10 MG Tablet PO (08:09)
[2021-01-28] MEDS: Clopidogrel Bisulfate 75 MG Tablet PO (08:09)
[2021-01-28 08:12] VITALS: BP 118/59; PULSE 78; RESP 18; TEMP 36.6; O2SAT 96
--- NOTE | 2021-01-28 09:50 | CASEMGMT ---
SW met with patient as she is stating she needs to go to a fci for rehab. Patient's room was dark and she was lying in bed. She did wake up when SW said her name. AURORA introduced self and role at [facility]. SW asked if she feels she needs to go to a psychiatric unit to get stabilized and she said no. She said she needs to go to a fci for rehab. She [facility] to go to [facility]. SW asked if she had a 2nd choice and she did not. SW provided patient with a list of SNF providers including quality and resource use data and consistent with the patient?s preferred geographic region, medical needs, and insurance network. SW told her that the facilities that take her insurance are highlighted in pink. SW told her SW will work on this and let her know. AURORA spoke with physician and it was discussed whether patient needs psych placement vs SNF. It was decided we will see how she does with therapy and go from there. Await therapy. Shannan Gómez PR SPECIALIST MOMO
--- NOTE | 2021-01-28 11:57 | PCM.PN.HOSP ---
Documented by User: Contreras CLAUDIO 01/28/21 12:11 Subjective Subjective Patient is a 55-year-old female lying in bed, alert and oriented x3. Patient appeared withdrawn on examination and did not provide much insight into her current condition, although mentation appeared intact. Denies chest pain, shortness of breath, palpitations, fever, chills, N/V/D. Objective Data Objective Data Vital Signs: Vital Signs Temp Pulse Resp BP Pulse Ox 97.9 F 78 18 118/59 L 96 01/28/21 08:12 01/28/21 08:12 01/28/21 08:12 01/28/21 08:12 01/28/21 08:12 Oxygen Delivery Method Room Air Weight: 169 lb 8.568 oz Body Mass Index (BMI) 29.7 Intake & Output: Intake and Output for Last 24 Hours 01/26/21 01/27/21 01/28/21 23:59 23:59 23:59 Intake Total 300 / 300 1100 / 1100 Output Total 200 / 200 150 / 150 Balance 100 / 100 950 / 950 Lab / Micro Data Result Diagrams: 01/27/21 12:25 01/27/21 12:25 Labs: Laboratory Results - last 24 hr 01/27/21 01/27/21 01/27/21 12:25 12:25 12:25 WBC 10.0 RBC 3.59 L Hgb 10.8 L Hct 32.5 L MCV 90.5 MCH 30.1 MCHC 33.2 RDW Std Deviation 46.8 H RDW Coeff of Jonathon 14.3 Plt Count 308 MPV 9.8 Immature Gran % (Auto) 0.500 Neut % (Auto) 78.7 H Lymph % (Auto) 13.1 L [place] % (Auto) 6.1 Eos % (Auto) 1.3 Baso % (Auto) 0.3 Absolute Neuts (auto) 7.9 H Absolute Lymphs (auto) 1.31 Nucleated RBC % 0 PT 26.8 H INR 2.6 Sodium 139 Potassium 4.1 Chloride 106 Carbon Dioxide 27.0 Anion Gap 6 BUN 19 H Creatinine 0.93 Estim Creat Clear Calc 57.87 Est GFR (MDRD) Af Amer 81 Est GFR (MDRD) Non-Af 67 BUN/Creatinine Ratio 20.3 H Glucose 85 Calcium 9.0 Total Bilirubin 1.50 H AST 48 H ALT 34 Alkaline Phosphatase 87 Troponin I High Sens 5.2 Total Protein 6.6 Albumin 3.6 Globulin 3.0 Albumin/Globulin Ratio 1.2 TSH Urine Color Urine Clarity Urine pH Ur Specific [place] Urine Protein Urine Glucose (UA) Urine Ketones Urine Occult Blood Urine Nitrite Urine Bilirubin Urine Urobilinogen Ur Leukocyte Esterase Urine RBC Urine WBC Ur Squamous Epith Cells Urine Bacteria Urine Mucus 01/27/21 01/27/21 01/28/21 12:25 13:20 06:45 WBC RBC Hgb Hct MCV MCH MCHC RDW Std Deviation RDW Coeff of Jonathon Plt Count MPV Immature Gran % (Auto) Neut % (Auto) Lymph % (Auto) [place] % (Auto) Eos % (Auto) Baso % (Auto) Absolute Neuts (auto) Absolute Lymphs (auto) Nucleated RBC % PT 31.6 H INR 3.2 Sodium Potassium Chloride Carbon Dioxide Anion Gap BUN Creatinine Estim Creat Clear Calc Est GFR (MDRD) Af Amer Est GFR (MDRD) Non-Af BUN/Creatinine Ratio Glucose Calcium Total Bilirubin AST ALT Alkaline Phosphatase Troponin I High Sens Total Protein Albumin Globulin Albumin/Globulin Ratio TSH 0.50 Urine Color Yellow Urine Clarity Clear Urine pH 6.0 Ur Specific [place] 1.010 Urine Protein Negative Urine Glucose (UA) Normal Urine Ketones 5 H Urine Occult Blood 150 H Urine Nitrite Negative Urine Bilirubin Negative Urine Urobilinogen Normal Ur Leukocyte Esterase 25 H Urine RBC 0-5 SEEN Urine WBC 0-5 SEEN Ur Squamous Epith Cells 0-5 SEEN Urine Bacteria 0 SEEN Urine Mucus 0 SEEN Radiography Diagnostic Testing: Radiology Impression Brain CT 01/27/21 11:35 IMPRESSION: 1. Stable chronic ischemic changes. 2. No interval change. Individualized dose optimization techniques were used for this CT. at 1310 Reported and signed by: Danny Moctezuma MD Electronically Signed: Danny Moctezuma MD at 13:09 EDT Tel , Service support , Chest X-Ray 01/27/21 12:55 IMPRESSION: No radiographic evidence of acute cardiopulmonary disease. No interval change. at 1311 Reported and signed by: Danny Moctezuma MD Electronically Signed: Danny Moctezuma MD at 13:10 EDT Tel , Service support , Physical Exam Const alert, oriented x3 and no apparent distress HEENT head/scalp atraumatic and moist oral mucous membranes Head and Scalp: normocephalic Eyes EOMs intact bilaterally and conjunctivae normal Neck no lymphadenopathy, supple and no JVD Resp normal respiratory effort, no retractions, no use of accessory muscles and clear to auscultation bilaterally Cardio regular rate, regular rhythm, no murmurs and no JVD GI normal to inspection, nondistended, normoactive bowel sounds, soft to palpation and non-tender Extremity normal to inspection, full ROM and no clubbing, cyanosis or edema Skin no rashes or lesions noted, no wounds and skin turgor normal Neuro CN's II-XII intact bilaterally Psych affect normal Assessment & Plan Assessment/Plan (1) Depression: (2) Physical debility: (3) Hyperlipidemia: QUALIFIERS: Hyperlipidemia type: unspecified Qualified Code(s): E78.5 - Hyperlipidemia, unspecified (4) History of stroke: (5) Non-ischemic cardiomyopathy: (6) Sick sinus syndrome: (7) Complete heart block: (8) History of mitral valve replacement with bioprosthetic valve: (9) Hypertension: QUALIFIERS: Hypertension type: essential hypertension Qualified Code(s): I10 - Essential (primary) hypertension (10) Paroxysmal atrial fibrillation: PLAN: Day 2: See subjective for patient presentation. Discharge planning: Patient wants to go to [facility] on discharge for skillned nursing care. Discharge to SNF vs Psych facility pending PT/OT eval. 1) failure to thrive/physical debility Patient reports a 5-day history of not being able to walk and poor oral intake. Cannot provide insight into why she has had a functional dcline, presentation is consistent with depression. Imaging, CBC, BMP and vital signs unremarkable. Plan; disposition as above, 2) Depresission Patient appears acutely depressed; room was dark upon entry, patient is withdrawn and does not provide much insight into current condition. Endorses poor oral intake and not participating in any of her daily activities for the past 5 days. Plan; disposition as above, continue Abilify, citalopram and trazodone. 3) PAF Rate is currently stable. Patient is on Coumadin for anticoagulation, not on any rate controlling medications. 4) sick sinus syndrome Stable, status post pacemaker. 5) HTN Stable, continue Norvasc. 6) history of stroke Continue aspirin, statin and Plavix. DVT prophylaxis -Coumadin Patient seen by Contreras Min PA-C, under the supervision of Dr. Scherer. Documented by User: Dr. Merna Scherer, 01/28/21 15:06 Subjective Subjective This patient was seen in conjunction with GONZÁLEZ Villanueva. I agree with the above and the following is representation of my independent clinical exam and history see below for addendum's to above plan of care. Patient was a fairly poor historian. She reported to me that her legs were weak, that her arms are weak, that she has diffuse pain and that she is unable to eat. When I asked her why she was unable to eat she states that she did not know and I should tell her. She denied any nausea or vomiting, constipation or diarrhea, abdominal pain, and told me that she just feels full. When I asked her if she was depressed she denied depression. She does see a psychiatrist and when we discussed this she states she saw him approximately a month ago and she was placed on trazodone but has not had any relief with this. Objective Data Lab / Micro Data Result Diagrams: 01/27/21 12:25 01/27/21 12:25 Physical Exam Const alert, oriented x3 and no apparent distress Constitutional Narrative: Overweight middle-aged white female who appears older than stated age, lying in a dark room on her right side with her eyes closed, talks in a childlike voice Exam Limitations: no limitations HEENT head/scalp atraumatic Head and Scalp: normocephalic Neck no lymphadenopathy, supple and no JVD Resp normal respiratory effort, no retractions, no use of accessory muscles and clear to auscultation bilaterally Auscultation: Negative for crackles, rales, rhonchi or wheezes Cardio regular rate, regular rhythm, S1 normal heart sound, S2 normal heart sound, no murmurs, no rub, no gallops, no clicks and no JVD GI normal to inspection, nondistended, normoactive bowel sounds, soft to palpation, non-tender and non-distended Extremity normal to inspection and no clubbing, cyanosis or edema Peripheral Pulses: Yes pulses 2+ throughout Skin Skin Narrative: Multiple areas of ecchymosis bilateral upper and lower extremities, lower extremities are scattered and appear to be in various stages of healing, bilateral upper extremities have new purple ecchymosis right greater than left and patient states these are from the blood pressure cuff Neuro oriented x3, CN's II-XII intact bilaterally, moves all extremities and no focal motor deficits Neuro Narrative: No pronator drift, patient was able to straight leg raise without difficulty, speech is childlike Sensorium / Orientation: awake, alert, oriented to person, oriented to place and oriented to time Psych Psych Narrative: Depressed mood with markedly flat affect, poor eye contact and for the most part the patient kept her eyes closed during my interview Assessment & Plan Assessment/Plan (1) Depression: (2) Physical debility: PLAN: Assessment: Adult failure to thrive/physical debility Marked depression Insomnia PAF Sick sinus syndrome/complete heart block-status post pacemaker Hypertension History of rheumatic heart disease status post mitral valve replacement History of stroke Bipolar disorder Hyperlipidemia CAD Plan: -INR is 3.2--> continue Coumadin--> patient takes alternating doses of 5 mg and 2.5 mg -Repeat INR in a.m -Medical work-up is negative -Patient did fairly well with physical therapy -Suspect this is mediated from depression -Patient is on multiple antidepressants and atypical antipsychotics -Crisis to see -Suspect patient will need inpatient psychiatric admission related to marked depression -Continue home medications otherwise -Repeat lab in a.m. -Medically stable for discharge once psychiatric issues and plan of care are addressed Charges/Coding Visit Charges Inpatient E&M: 18046 Subs Hosp L2
--- NOTE | 2021-01-28 12:17 | CASEMGMT ---
PRAVIN LINDSEY NOTE: Intro role of CM to patient and HOFF form explained re: Observation status for treatment of debility. Explained hospitalization will be paid per her insurance policy for Outpatient billing and condition will continue to be evaluated for Inpt necessity. Also let pt know that [facility] sends paper in the billing packet with their phone number if questions arise. Discussed Pharmacy section of HOFF form and self administered medication guideline. Pt verbalizes understanding and does not have further questions. Form signed, copy made and placed in chart, and original given to pt. Kalli DILLON RN CM
--- NOTE | 2021-01-28 13:13 | CHAPLAIN ---
Type of Pastoral Visit _x__ Initial Visit ___ Follow-up Visit ___ On-call Visit ___ General Patient Visit ___ Spiritual Assessment ___ Family Conference ___ Bereavement ___ Rapid Response ___ Code Blue ___ Other (describe below) Pastoral Care Referral From _x__ Patient ___ Family ___ Nurse ___ Physician ___ Special Investigator ___ Technical Editor ___ Other (describe below) Sacrament/Intervention ___ Active listening ___ Anointing ___ Alevism ___ Bereavement ___ Communion ___ Chelly exploration ___ ___ Life review _x__ Prayer ___ Reconciliation ___ Sacrament of Sick _x__ Supportive presence ___ Wedding ___ Other (describe below) Pastoral Comments patient states I just need lots of prayer; pt states this is new experience, is not sure of family support, and just wants to feel good again
[2021-01-28] MEDS: Acetaminophen 325 MG Tablet 650 MG PO ×2 (13:35→20:10)
--- NOTE | 2021-01-28 14:10 | CASEMGMT ---
Therapy told RN ROSALIA that patient was a min assist and walked around the room, to the door, and then wanted to go back to bed. SW has conferred with physician and since patient is doing fine physically and she is medically cleared crisis will be consulted. AURORA called Crisis and spoke with Viviana regarding referral. AURORA also faxed information to [facility]. Shannan Gómez TRUCK RENTAL SERVICE ATTENDANT MOMO
[2021-01-28 14:42] VITALS: BP 95/60; PULSE 65; RESP 18; TEMP 36.8; O2SAT 96
[2021-01-28 15:51] VITALS: O2SAT 96
--- NOTE | 2021-01-28 16:15 | CASEMGMT ---
Crisis came to evaluate patient and they are working on Psych placement. Shannan Gómez FLATBED TRUCK DRIVER RESAWYER
--- NOTE | 2021-01-28 17:14 | NURSING ---
Crisis came and spoke with patient. Spoke with Dr Scherer afterwards. Will attempt psych facility placement. No note on chart. Crisis requested PCU fax number but at this point nothing has been received.
[2021-01-28 19:16] LABS: Amphetamine Urine VISTA NEGATIVE (<1000 ng/mL); Barbiturate Urine VISTA NEGATIVE (< 200 ng/mL); Benzodiazepine Urine VISTA NEGATIVE (< 200 ng/mL); Cocaine Urine VISTA NEGATIVE (< 300 ng/mL); Ecstacy Urine VISTA POSITIVE (< 500 ng/mL); Methadone Urine VISTA NEGATIVE (< 300 ng/mL); PCP Urine VISTA NEGATIVE (< 25 ng/mL); THC Urine VISTA NEGATIVE (< 50 ng/mL); Vista UDS pH Range 7
[2021-01-28 20:06] VITALS: BP 128/65; PULSE 85; RESP 14; TEMP 36.4; O2SAT 96
[2021-01-28] MEDS: Zolpidem Tartrate 5 MG Tablet PO (20:09)
[2021-01-28] MEDS: traZODone 100 MG Tablet PO (20:09)
[2021-01-28] MEDS: Atorvastatin Calcium 10 MG Tablet PO (20:09)
--- NOTE | 2021-01-29 00:09 | PCM.DC ---
Discharge Instructions Diet Discharge Diet: No restrictions Activity Discharge Activity: Return to Normal Activity and Use Walker Follow Up Care Test Results: Test results from this visit will be discussed in further detail at your follow-up appointment, if applicable. Pending Tests Upon Discharge: INR every Monday and . Hold warfarin for INR greater than 3. Discharge Plan Admission Admit Date/Time: 01/27/21 14:15 Attending Provider: Merna Scherer Primary Care Provider: Louis Dobbs Discharge Orders/Prescriptions Prescriptions: Continued oxybutynin chloride 10 mg tablet extended release 24hr 10 mg PO DAILY RF: 0 Ingrezza 40 mg capsule 40 mg PO DAILY RF: 0 amlodipine 10 mg tablet 10 mg PO DAILY RF: 0 aspirin [Adult Low Dose Aspirin] 81 mg tablet,delayed release (DR/EC) 81 mg PO DAILY RF: 0 clopidogrel [Plavix] 75 mg tablet 75 mg PO DAILY RF: 0 trazodone 50 mg tablet 50 mg PO DAILY RF: 0 citalopram 10 MG tablet 10 mg PO DAILY RF: 0 warfarin 5 mg tablet See Rx Instructions PO .COMPLEX RF: 0 aripiprazole [Abilify] 5 mg Tablet 2.5 mg PO BID RF: 0 rosuvastatin 5 mg tablet 5 mg PO DAILY Qty: 90 RF: 3 Referrals / Follow Up: Louis Dobbs MD [Primary Care Provider] - Within 2 Weeks Disposition Disposition (needs filled in before D/C Order can be placed): Psychiatric Hospital or Unit
[2021-01-29 00:11] VITALS: BP 106/55; PULSE 84; RESP 16; TEMP 36.7; O2SAT 97
--- NOTE | 2021-01-29 00:12 | PCM.DC.SUM ---
Providers Date of Admission: 01/27/21 Primary Care Physician: Dr. Louis Dobbs MD Reason For Visit: DEBILITY, WEAKNESS, DEPRESSION Diagnosis Discharge Diagnosis (1) Depression: Status: Acute Code(s): F32.9 - Major depressive disorder, single episode, unspecified (2) Physical debility: Status: Acute Code(s): R53.81 - Other malaise Medications at Discharge Home Medications citalopram 10 mg PO DAILY 07/26/16 oxybutynin chloride 10 mg tablet,extended release 24 hr 10 mg PO DAILY 02/14/19 valbenazine 40 mg capsule 40 mg PO DAILY 08/29/19 rosuvastatin 5 mg tablet 5 mg PO DAILY #90 tab 02/28/20 warfarin 5 mg tablet See Rx Instructions PO .COMPLEX 09/14/20 amlodipine 10 mg tablet 10 mg PO DAILY 11/27/20 aspirin 81 mg tablet,delayed release 81 mg PO DAILY 11/27/20 clopidogrel 75 mg tablet 75 mg PO DAILY 11/27/20 trazodone 50 mg tablet 50 mg PO DAILY 11/27/20 aripiprazole [Abilify] 2.5 mg PO BID 01/27/21 Hospital Course Summary of Care Provided Hospital Course: Presents with a fall and multiple bruising. Patient states that she is unable to care for herself. Patient would just lay on the couch and patient's 12-year-old son would help care for her and family would bring in groceries. She states that this occurred over the past 5 days. Patient underwent a extensive work-up including cultures, urinalysis, chest x-ray and head CT all of which were unremarkable. Patient was seen by physical therapy and patient was a minimal assist. Crisis was consulted and felt that patient would benefit from further psychiatric evaluation. Patient will be discharged to inpatient psychiatric unit. Patient is risk to self due to lack of self-awareness to adequately care for herself and as well as lack of motivation to do basic activities such as caring for her own children. Patient would be further risk of of harm to herself because of this lack of awareness and lack of motivation. Patient is not suicidal. Physical Exam Const alert Constitutional Narrative: Pleasant HEENT normocephalic Resp normal respiratory effort, no retractions, no use of accessory muscles and clear to auscultation bilaterally Cardio regular rate, regular rhythm, S1 normal heart sound and S2 normal heart sound GI normal to inspection, nondistended, normoactive bowel sounds, non-tender and non-distended Skin Skin Narrative: Multiple bruising on arms Weight / BMI Weight Weight: 76.9 kg Body Mass Index (BMI) 29.7 ABG / Lab / Microbiology Data Result Diagrams: 01/27/21 12:25 01/27/21 12:25 Laboratory: Laboratory Results - last 24 hr 01/28/21 01/28/21 06:45 18:45 PT 31.6 H INR 3.2 Urine Opiates Screen NEGATIVE Urine Methadone Screen NEGATIVE Ur Barbiturates Screen NEGATIVE Ur Phencyclidine Scrn NEGATIVE Ur Amphetamines Screen NEGATIVE U Methamphetamin-MDMA POSITIVE H U Benzodiazepines Scrn NEGATIVE Urine Cocaine Screen NEGATIVE U Cannabinoids Screen NEGATIVE Ur Drug Screen Comment Microbiology: Microbiology 01/28/21 18:45 SARS-CoV-2 Antigen (Rapid) - Final Mucosa - Nose Microbiology 01/28/21 18:45 Mucosa - Nose SARS-CoV-2 Antigen (Rapid) - Final D/C Instructions Discharge Diet: No restrictions Pending Tests Upon Discharge: INR every Monday and . Hold warfarin for INR greater than 3. Meaningful Use Info Meaningful Use Diagnoses (Choose all that apply): None applicable Discharge Plan Admission Admit Date/Time: 01/27/21 14:15 Attending Provider: Merna Scherer Primary Care Provider: Louis Dobbs Discharge Orders/Prescriptions Prescriptions: Continued oxybutynin chloride 10 mg tablet extended release 24hr 10 mg PO DAILY RF: 0 Ingrez[place] 40 mg capsule 40 mg PO DAILY RF: 0 amlodipine 10 mg tablet 10 mg PO DAILY RF: 0 aspirin [Adult Low Dose Aspirin] 81 mg tablet,delayed release (DR/EC) 81 mg PO DAILY RF: 0 clopidogrel [Plavix] 75 mg tablet 75 mg PO DAILY RF: 0 trazodone 50 mg tablet 50 mg PO DAILY RF: 0 citalopram 10 MG tablet 10 mg PO DAILY RF: 0 warfarin 5 mg tablet See Rx Instructions PO .COMPLEX RF: 0 aripiprazole [Abilify] 5 mg Tablet 2.5 mg PO BID RF: 0 rosuvastatin 5 mg tablet 5 mg PO DAILY Qty: 90 RF: 3 Referrals / Follow Up: Louis Dobbs MD [Primary Care Provider] - Within 2 Weeks Disposition Disposition (needs filled in before D/C Order can be placed): Psychiatric Hospital or Unit Charges/Coding Visit Charges OBSV E&M: 78885 Observation care discharge
[2021-01-29 00:36] VITALS: BP 106/55; PULSE 84; RESP 16; TEMP 36.7; O2SAT 97
--- NOTE | 2021-01-29 00:49 | NURSING ---
Addendum entered by Perla Beauchamp 01/29/21 05:36: Phone call from pt's brother, Contreras. Notified that pt had been transferred to [facility] in [place], [place] and gave phone number to facility. PRAVIN Ward Original Note: called Report to PRAVIN Looney at [facility]. Attempted to call pt's brother, Contreras to update him per pt request, but no answer. LM to call nurses station when he rec'd the message. PRAVIN Ward
== END 2021-01-29 02:20 ==
LOC: ED 11:26 → PCU 14:29
PROVIDERS: Admitting Provider Hospitalist; Emergency Provider Student in an Organized Health Care Education/Training Program; PCP Internal Medicine; Visit Provider Internal Medicine
DX: R53.1 Weakness (principal); F31.9 Bipolar disorder, unspecified; R53.81 Other malaise; J45.909 Unspecified asthma, uncomplicated; I69.391 Dysphagia following cerebral infarction; E78.5 Hyperlipidemia, unspecified; I48.0 Paroxysmal atrial fibrillation; I42.8 Other cardiomyopathies; I11.0 Hypertensive heart disease with heart failure; I50.9 Heart failure, unspecified; F20.9 Schizophrenia, unspecified; F41.9 Anxiety disorder, unspecified; R62.7 Adult failure to thrive; I25.10 Atherosclerotic heart disease of native coronary artery without angina pectoris; I25.2 Old myocardial infarction; Z79.899 Other long term (current) drug therapy; Z79.01 Long term (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 anticoagulants; Z79.82 Long term (current) use of aspirin; Z95.0 Presence of cardiac pacemaker; Z95.3 Presence of xenogenic heart valve; Z79.02 Long term (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 antithrombotics/antiplatelets; Z87.891 Personal history of nicotine dependence; Z68.29 Body mass index [BMI] 29.0-29.9, adult
CPT/HCPCS: 36415; 70450; 71045; 80053; 80307; 81001; 84443; 84484; 85025; 85610; 87426; 93005; 96360; 96361; 97162; 97166; 97802; 99218; 99251; 99285; G0378; G0463

== ENCOUNTER 2021-02-15 11:43 | Outpatient (RCR) | payer MEDICARE, MEDICAID, SELFPAY ==
[2021-02-15 12:30] LABS: Prothrombin Time (Protime)PT. 61.8 SECONDS (11.7-14.9)
[2021-02-15 12:44] LABS: International Normalized Ratio 7.3
== END 2021-03-06 23:59 ==
LOC: LABSPEC 11:43
PROVIDERS: PCP Internal Medicine; Visit Provider Internal Medicine
DX: I48.0 Paroxysmal atrial fibrillation (principal); Z79.01 Long term (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 anticoagulants
CPT/HCPCS: 85610

== ENCOUNTER → 2021-03-08 08:45 | Outpatient (CLI) | payer MEDICARE, MEDICAID, SELFPAY ==
[2021-03-08 10:46] LABS: INR Fingerstick 1.9; Prothrombin Time Fingerstick 21.6 SEC (11.9-14.4)
== END ==
PROVIDERS: PCP Internal Medicine; Referring Provider Physician Assistant Medical; Visit Provider Physician Assistant Medical
DX: I48.0 Paroxysmal atrial fibrillation (principal); Z79.01 Long term (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 anticoagulants
CPT/HCPCS: 36416; 85610

== ENCOUNTER → 2021-03-15 10:10 | Outpatient (CLI) | payer MEDICARE, MEDICAID, SELFPAY ==
[2021-03-15 11:11] LABS: INR Fingerstick 1.7
== END ==
PROVIDERS: PCP Internal Medicine; Visit Provider Physician Assistant Medical
DX: I48.0 Paroxysmal atrial fibrillation (principal); Z79.01 Long term (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 anticoagulants
CPT/HCPCS: 36416; 85610

== ENCOUNTER → 2021-03-22 07:08 | Outpatient (CLI) | payer MEDICARE, MEDICAID, SELFPAY ==
[2021-03-22 10:01] LABS: INR Fingerstick 2.3; Prothrombin Time Fingerstick 26.1 SEC (11.9-14.4)
== END ==
PROVIDERS: PCP Internal Medicine; Visit Provider Physician Assistant Medical
DX: I48.0 Paroxysmal atrial fibrillation (principal); Z79.01 Long term (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 anticoagulants
CPT/HCPCS: 36416; 85610

== ENCOUNTER → 2021-03-29 08:48 | Outpatient (CLI) | payer MEDICARE, MEDICAID, SELFPAY ==
[2021-03-29 09:40] LABS: INR Fingerstick 2.6; Prothrombin Time Fingerstick 28.9 SEC (11.9-14.4)
== END ==
PROVIDERS: PCP Internal Medicine; Visit Provider Physician Assistant Medical
DX: I48.0 Paroxysmal atrial fibrillation (principal); Z79.01 Long term (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 anticoagulants
CPT/HCPCS: 36416; 85610

== ENCOUNTER → 2021-04-14 04:51 | Outpatient (CLI) | payer MEDICARE, MEDICAID, SELFPAY ==
[2021-04-14 12:05] LABS: INR Fingerstick 2.9
== END ==
PROVIDERS: PCP Internal Medicine; Visit Provider Physician Assistant Medical
DX: I48.0 Paroxysmal atrial fibrillation (principal); Z79.01 Long term (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 anticoagulants
CPT/HCPCS: 36416; 85610

== ENCOUNTER → 2021-05-12 11:55 | Outpatient (CLI) | payer MEDICARE, MEDICAID, SELFPAY ==
[2021-05-12 12:45] LABS: INR Fingerstick 2.4; Prothrombin Time Fingerstick 27.2 SEC (11.9-14.4)
== END ==
PROVIDERS: PCP Internal Medicine; Visit Provider Physician Assistant Medical
DX: I48.0 Paroxysmal atrial fibrillation (principal); Z79.01 Long term (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 anticoagulants
CPT/HCPCS: 36416; 85610

== ENCOUNTER → 2021-06-07 09:16 | Outpatient (CLI) | payer MEDICARE, MEDICAID, SELFPAY ==
[2021-06-07 10:16] LABS: INR Fingerstick 3.2; Prothrombin Time Fingerstick 35.6 SEC (11.9-14.4)
== END ==
PROVIDERS: PCP Internal Medicine; Referring Provider Physician Assistant Medical; Visit Provider Physician Assistant Medical
DX: I48.0 Paroxysmal atrial fibrillation (principal); Z79.01 Long term (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 anticoagulants
CPT/HCPCS: 36416; 85610

== ENCOUNTER → 2021-06-14 08:20 | Outpatient (CLI) | payer MEDICARE, MEDICAID, SELFPAY ==
[2021-06-16 11:36] LABS: INR Fingerstick 2.6; Prothrombin Time Fingerstick 29.3 SEC (11.9-14.4)
== END ==
PROVIDERS: PCP Internal Medicine; Visit Provider Physician Assistant Medical
DX: I48.0 Paroxysmal atrial fibrillation (principal); Z79.01 Long term (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 anticoagulants
CPT/HCPCS: 36416; 85610

== ENCOUNTER → 2021-06-23 07:47 | Outpatient (CLI) | payer MEDICARE, MEDICAID, SELFPAY ==
[2021-06-23 10:15] LABS: INR Fingerstick 2.9
== END ==
PROVIDERS: PCP Internal Medicine; Visit Provider Physician Assistant Medical
DX: I48.0 Paroxysmal atrial fibrillation (principal); Z79.01 Long term (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 anticoagulants
CPT/HCPCS: 36416; 85610

== ENCOUNTER → 2021-07-07 10:16 | Outpatient (CLI) | payer MEDICARE, MEDICAID, SELFPAY ==
[2021-07-07 12:10] LABS: Prothrombin Time Fingerstick 32.9 SEC (11.9-14.4)
== END ==
PROVIDERS: PCP Internal Medicine; Visit Provider Physician Assistant Medical
DX: I48.0 Paroxysmal atrial fibrillation (principal); Z79.01 Long term (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 anticoagulants
CPT/HCPCS: 36416; 85610

== ENCOUNTER → 2021-07-16 03:44 | Outpatient (CLI) | payer MEDICARE, MEDICAID, SELFPAY ==
[2021-07-16 10:16] LABS: INR Fingerstick 3.9; Prothrombin Time Fingerstick 42.4 SEC (11.9-14.4)
== END ==
PROVIDERS: PCP Internal Medicine; Referring Provider Physician Assistant Medical; Visit Provider Physician Assistant Medical
DX: I48.0 Paroxysmal atrial fibrillation (principal); Z79.01 Long term (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 anticoagulants
CPT/HCPCS: 36416; 85610

== ENCOUNTER → 2021-07-22 12:57 | Outpatient (CLI) | payer MEDICARE, MEDICAID, SELFPAY ==
[2021-07-22 14:02] LABS: Hematocrit 39.4 % (37-47); Hemoglobin 12.7 g/dL (12.0-15.0); Mean Corp Hgb Conc 32.2 g/dL (32-36); Mean Corpuscular Hgb 29.5 pg (27.0-32.0); Mean Corpuscular Volume 91.4 fL (81-99); Mean Platelet Vol. 9.4 fl (6.2-12.0); Platelet Count 256 K/mm3 (150-450); RBC Distribution Width CV 16.7 % (11.6-14.6); Red Blood Count 4.31 M/mm3 (4.2-5.4); White Blood Count 7.6 K/mm3 (4.4-11.0)
[2021-07-22 14:14] LABS: International Normalized Ratio 1.6; Prothrombin Time (Protime)PT. 18.6 SECONDS (11.7-14.9)
--- NOTE | 2021-07-22 14:20 | RAD_ITS ---
STUDY: X-RAY CHEST REASON FOR EXAM: Female, 55 years old. SOB TECHNIQUE: PA and lateral views of the chest. COMPARISON: Comparison is made with prior study dated 01/27/2021. FINDINGS: There is hyperinflation of the lungs consistent with chronic obstructive lung disease (COPD). There is no demonstrated pleural abnormality. Sternal cerclage wires are present from a prior sternotomy. The patient is status post mitral valve replacement. A left-sided dual-chamber pacemaker is seen. Normal mediastinum and dee dee. Normal visualized pulmonary arteries. Normal visualized aortic arch and descending thoracic aorta. Normal visualized thoracic spine. Normal visualized ribs, clavicles, and shoulders. There is no demonstrated abnormality of the visualized soft tissue structures of the upper abdomen. RAD/Chest PA and Lateral IMPRESSION: Hyperinflation. Status post mitral valve replacement. No acute abnormality is seen. Electronically Signed: Miguel Lau MD at 15:09 EST , Service support ,
[2021-07-22 14:40] LABS: BNP,B-Type NATRIURETIC PEPTIDE 43.8 pg/mL (0-100)
[2021-07-22 14:41] LABS: Anion Gap 8 (5-15); BUN 12 mg/dL (7-18); BUN/Creat Ratio 11.5 RATIO (10-20); Calcium,Total 8.9 mg/dL (8.5-10.1); Chloride 108 mmol/L (98-107); Creatinine, Serum 1.04 mg/dL (0.55-1.02); EST Glomerular Filtration Rate 59 mL/min (>60); Est Glom Filt Rate - Afr Amer 71 mL/min (>60); Glucose 104 mg/dL (74-106); Potassium 4.3 mmol/L (3.5-5.1); Sodium Level 139 mmol/L (136-145)
== END ==
LOC: LAB 12:59 → RAD 14:05
PROVIDERS: PCP Internal Medicine; Referring Provider Nurse Practitioner Family; Visit Provider Physician Assistant Medical
DX: R06.02 Shortness of breath (principal); R06.2 Wheezing; I05.2 Rheumatic mitral stenosis with insufficiency; I42.8 Other cardiomyopathies; I48.0 Paroxysmal atrial fibrillation; Z79.01 Long term (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 anticoagulants
CPT/HCPCS: 36415; 71046; 80048; 83735; 83880; 84443; 85027; 85610

== ENCOUNTER 2021-08-09 04:42 | Outpatient (CLI) | payer MEDICARE, MEDICAID, SELFPAY ==
[2021-08-09 10:36] LABS: INR Fingerstick 2.3; Prothrombin Time Fingerstick 25.7 SEC (11.9-14.4)
== END 2021-08-09 23:59 | disposition home or self-care (01) ==
LOC: LAB 04:43
PROVIDERS: PCP Internal Medicine; Visit Provider Physician Assistant Medical
DX: I48.0 Paroxysmal atrial fibrillation (principal); Z79.01 Long term (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 anticoagulants
CPT/HCPCS: 36416; 85610

== ENCOUNTER 2021-08-23 09:29 | Outpatient (CLI) | payer MEDICARE, MEDICAID, SELFPAY ==
[2021-08-23 11:11] LABS: INR Fingerstick 2.8; Prothrombin Time Fingerstick 32.2 SEC (11.9-14.4)
== END 2021-08-23 23:59 | disposition short-term general hospital (02) ==
PROVIDERS: PCP Internal Medicine; Visit Provider Physician Assistant Medical
DX: I48.0 Paroxysmal atrial fibrillation (principal); Z79.01 Long term (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 anticoagulants
CPT/HCPCS: 36416; 85610

== ENCOUNTER 2021-09-13 04:54 | Outpatient (CLI) | payer MEDICARE, MEDICAID, SELFPAY ==
[2021-09-13 10:40] LABS: INR Fingerstick 2.4; Prothrombin Time Fingerstick 27.8 SEC (11.9-14.4)
== END 2021-09-13 23:59 | disposition home or self-care (01) ==
LOC: LAB 04:56
PROVIDERS: PCP Internal Medicine; Referring Provider Physician Assistant Medical; Visit Provider Physician Assistant Medical
DX: I48.0 Paroxysmal atrial fibrillation (principal); Z79.01 Long term (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 anticoagulants
CPT/HCPCS: 36416; 85610

== ENCOUNTER 2021-10-01 09:07 | Outpatient (CLI) | payer MEDICARE, MEDICAID, SELFPAY ==
[2021-10-01 09:56] LABS: INR Fingerstick 2.3; Prothrombin Time Fingerstick 27.2 SEC (11.9-14.4)
== END 2021-10-01 23:59 | disposition home or self-care (01) ==
LOC: LAB 09:09
PROVIDERS: PCP Internal Medicine; Visit Provider Physician Assistant Medical
DX: I48.0 Paroxysmal atrial fibrillation (principal); Z79.01 Long term (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 anticoagulants
CPT/HCPCS: 36416; 85610

== ENCOUNTER 2021-10-12 14:18 | Emergency (ER) | payer MEDICARE, MEDICAID, SELFPAY ==
[2021-10-12 14:19] VITALS: BP 166/87; PULSE 86; RESP 15; TEMP 36.2; O2SAT 96; BMI 33.5
--- NOTE | 2021-10-12 15:07 | EX.ED.DYSGE1 ---
HPI History of Present Illness Chief Complaint: Anxiety Informant: patient and spouse/S.O. Onset/Context/Timing Onset: Days Context: Gradual Onset Timing: Continuous Current Severity: Moderate Maximum Severity: Moderate Narrative Narrative: 56-year-old female past medical history of anxiety, schizophrenia and bipolar. Also has a history of A. fib and prior endocarditis with a mitral valve replaced. Patient states that she has had real bad anxiety last several days and is finding it difficult to function. She denies being suicidal or homicidal. Denies any illness. 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 Non-ischemic cardiomyopathy Schizophrenia Sick sinus syndrome Stroke/cerebrovascular accident Home Medications oxybutynin chloride 10 mg tablet,extended release 24 hr 10 mg PO DAILY 02/14/19 [History Last Taken 01/27/21] valbenazine 40 mg capsule 40 mg PO DAILY 08/29/19 [History Last Taken 01/26/21] rosuvastatin 5 mg tablet 5 mg PO DAILY #90 tab 02/28/20 [Rx Last Taken 01/26/21] amlodipine 10 mg tablet 10 mg PO DAILY 11/27/20 [History Last Taken 01/27/21] aspirin 81 mg tablet,delayed release 81 mg PO DAILY 11/27/20 [History Last Taken 01/27/21] clopidogrel 75 mg tablet 75 mg PO DAILY 11/27/20 [History Last Taken 01/27/21] aripiprazole lauroxil 882 mg/3.2 mL suspension, ext.rel. IM syringe 882 mg IM QMONTH 03/03/21 [History Last Taken Unknown] mirtazapine 30 mg tablet 30 mg PO QHS 03/03/21 [History Last Taken Unknown] oxcarbazepine 300 mg tablet 300 mg PO BID 03/03/21 [History Last Taken Unknown] trazodone 150 mg tablet 75 mg PO QHS tab 03/03/21 [History Last Taken Unknown] citalopram 10 mg tablet 10 mg PO DAILY 04/09/21 [History Last Taken Unknown] warfarin 5 mg tablet See Rx Instructions PO .COMPLEX #30 tab 09/29/21 [Rx Last Taken Unknown] Allergy/AdvReac Type Severity Reaction Status Date / Time amoxicillin [Amoxicillin] Allergy Hives Verified 04/09/21 09:43 latex Allergy Rash Verified 04/09/21 09:43 lisinopril Allergy Unknown Verified 04/09/21 09:43 Penicillins Allergy Hives Verified 04/09/21 09:43 venom-honey bee Allergy Swelling Verified 04/09/21 09:43 [bee venom (honey bee)] ciprofloxacin [From Cipro] AdvReac Nausea/Vom/ Verified 04/09/21 09:43 Diarrhea Surgical History History of History of mitral valve replacement with bioprosthetic valve (07/23/09) History of partial colectomy Presence of cardiac pacemaker (09/21/20) Social History Smoking Status: Former smoker alcohol intake: current alcohol intake frequency: holidays/special occasions only substance use type: does not use caffeine: Yes Type: carbonated beverages Number of servings: 1 ROS ROS ED ROS Narrative Denies Review of Systems ROS Unobtainable: Denies due to encephalopathy Constitutional Constitutional ED: Denies fever(s) Eyes Eyes: Denies change in vision ENT ENT ED: Denies ear pain Cardiovascular Cardiovascular: Denies chest pain Respiratory/Chest Respiratory/Chest: Denies dyspnea Gastrointestinal Gastrointestinal: Denies abdominal pain Genitourinary Genitourinary ED: Denies dysuria Musculoskeletal Musculoskeletal: Denies myalgias Integumentary Denies rash Neurologic Neurologic: Denies headache(s) Psychiatric Psychiatric: Denies depression Endocrine Endocrinology: Denies polyuria Allergic/Immunologic Allergic/Immunologic ED: Denies urticaria EXAM Physical Exam Narrative Exam Narrative: 56-year-old female vital signs are stable afebrile. No acute distress. H EENT exam unremarkable. Pupils are reactive light. Neck nontender. No lymphadenopathy. No meningismus. Lungs clear to auscultation bilateral. Heart regular rhythm rate about 85 no murmur. Abdomen soft nontender. Moving all 4 extremities. No edema. Neurologically awake alert. No focal motor deficits. Patient is very anxious. Const Vital Signs: 10/12/21 14:19 Temperature 97.2 F L Temperature Source Temporal Pulse Rate 86 Respiratory Rate 15 Blood Pressure 166/87 H Blood Pressure Mean 113 Pulse Ox 96 Oxygen Delivery Method Room Air Positive well nourished, well developed and obese; Negative for cachectic, contractures or unkempt General Appearance ED: well developed and NAD; Negative for unkempt, cachectic, contractures, cyanotic, diaphoretic or pallor Nutritional Appearance: obese; Negative for cachectic HEENT Reports moist mucous membranes Negative for trauma or tenderness Eyes PERRL and EOMs intact bilaterally General Eye ED: Negative for pale conjunctiva or scleral icterus Neck no lymphadenopathy, supple and no JVD General: Negative for tenderness Chest Wall inspection of chest normal and palpation of chest normal Resp normal respiratory effort and clear to auscultation bilaterally Effort and Inspection: Negative for pain with movement Auscultation: Negative for rales, rhonchi or wheezes Cardio regular rate, regular rhythm, S1 normal heart sound, S2 normal heart sound and no murmurs Palpation: Negative for palpable S3 or palpable S4 GI normal to inspection, nondistended, normoactive bowel sounds, non-tender, non-distended and no masses Inspection: Negative for abdominal distention Auscultation: normoactive bowel sounds Palpation: soft; Negative for tender, guarding or rebound tenderness present Back/Spine no CVA tenderness General Back: Negative for CVA tenderness Cervical Spine: Negative for cervical spine tenderness Thoracic Spine / Upper Back: Negative for thoracic spinal tenderness Extremity normal to inspection General Extremety ED: Negative for edema or tenderness General Extremity: Negative for edema Neuro oriented x3 and CN's II-XII intact bilaterally Sensorium / Orientation: alert; Negative for orientation impaired, lethargic or stuporous Motor Exam: strength 5/5 throughout Psych mental status grossly normal Appearance: Negative for unkempt Attitude: No agitated Mood & Affect: anxious; Negative for depressed or tearful Skin no rashes or lesions noted and no wounds General Skin Exam: Negative for jaundice or pallor MDM MDM MDM Narrative Medical decision making narrative: 56-year-old female with acute on chronic anxiety. Treated with p.o. Ativan. Will be reassessed. Discharge Plan Triage Chief Complaint: Anxiety ED Provider: Jian York Dx/Rx/DC Orders Clinical Impression: Anxiety, Hx of bipolar disorder, History of atrial fibrillation Instructions: ED Panic Attack Prescriptions: No Action oxybutynin chloride 10 mg tablet extended release 24hr 10 mg PO DAILY RF: 0 Ingrezza 40 mg capsule 40 mg PO DAILY RF: 0 amlodipine 10 mg tablet 10 mg PO DAILY RF: 0 aspirin [Adult Low Dose Aspirin] 81 mg tablet,delayed release (DR/EC) 81 mg PO DAILY RF: 0 clopidogrel [Plavix] 75 mg tablet 75 mg PO DAILY RF: 0 citalopram [Celexa] 10 mg tablet 10 mg PO DAILY RF: 0 rosuvastatin 5 mg tablet 5 mg PO DAILY Qty: 90 RF: 3 trazodone 150 mg tablet 75 mg PO QHS RF: 0 oxcarbazepine [Trileptal] 300 mg tablet 300 mg PO BID RF: 0 mirtazapine [Remeron] 30 mg tablet 30 mg PO QHS RF: 0 Aristada 882 mg/3.2 mL suspension,extended rel syring 882 mg IM QMONTH RF: 0 warfarin 5 mg tablet See Rx Instructions mg PO .COMPLEX Qty: 30 RF: 11 Primary Care Provider: Louis Dobbs Referrals: Louis Dobbs MD [Primary Care Provider] - 3-5 Days if not improving Activity Restrictions/Additional Instructions: Follow-up with your primary care provider or your site [facility] or the counseling center for further evaluation. Return if feeling worse. Disposition Disposition: Home, Self Care
[2021-10-12] MEDS: LORazepam 1 MG Tablet PO (15:15)
== END 2021-10-12 16:14 | disposition home or self-care (01) ==
PROVIDERS: Emergency Provider Emergency Medicine; PCP Internal Medicine; Visit Provider Emergency Medicine
DX: F41.9 Anxiety disorder, unspecified (principal); F20.9 Schizophrenia, unspecified; I42.8 Other cardiomyopathies; F31.9 Bipolar disorder, unspecified; I48.91 Unspecified atrial fibrillation; I49.5 Sick sinus syndrome; Z87.891 Personal history of nicotine dependence; Z86.73 Personal history of transient ischemic attack (TIA), and cerebral infarction without residual deficits; J45.909 Unspecified asthma, uncomplicated; Z95.2 Presence of prosthetic heart valve; Z79.82 Long term (current) use of aspirin; Z79.01 Long term (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 anticoagulants; Z79.899 Other long term (current) drug therapy; Z79.02 Long term (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 antithrombotics/antiplatelets; Z95.0 Presence of cardiac pacemaker; E66.9 Obesity, unspecified; Z68.33 Body mass index [BMI] 33.0-33.9, adult
CPT/HCPCS: 99283

== ENCOUNTER 2021-10-29 07:08 | Outpatient (CLI) | payer MEDICARE, MEDICAID, SELFPAY ==
[2021-10-29 10:50] LABS: INR Fingerstick 4.3; Prothrombin Time Fingerstick 47.5 SEC (11.7-14.9)
[2021-10-29 11:13] LABS: International Normalized Ratio 3.7; Prothrombin Time (Protime)PT. 35.8 SECONDS (11.7-14.9)
== END 2021-10-29 23:59 | disposition home or self-care (01) ==
LOC: LAB 07:09
PROVIDERS: PCP Internal Medicine; Visit Provider Physician Assistant Medical
DX: I48.0 Paroxysmal atrial fibrillation (principal); Z79.01 Long term (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 anticoagulants
CPT/HCPCS: 36416; 85610

== ENCOUNTER 2021-11-08 08:32 | Outpatient (CLI) | payer MEDICARE, MEDICAID, SELFPAY ==
[2021-11-08 10:56] LABS: INR Fingerstick 2.7; Prothrombin Time Fingerstick 31.4 SEC (11.7-14.9)
== END 2021-11-08 23:59 | disposition home or self-care (01) ==
LOC: LAB 08:34
PROVIDERS: PCP Internal Medicine; Visit Provider Physician Assistant Medical
DX: I48.0 Paroxysmal atrial fibrillation (principal); Z79.01 Long term (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 anticoagulants
CPT/HCPCS: 36416; 85610

== ENCOUNTER 2021-11-10 10:39 | Emergency (ER) | payer MEDICARE, MEDICAID, SELFPAY ==
[2021-11-10 10:40] VITALS: BP 120/77; PULSE 96; RESP 14; TEMP 36.6; O2SAT 98; BMI 33.0
--- NOTE | 2021-11-10 10:53 | EX.ED.VIS.PS ---
HPI HPI - Psych History of Present Illness Chief Complaint: Anxiety Narrative Narrative: History and physical is a limited secondary to patient condition. She presents with her neighbor because of anxiety. Her neighbor reports that patient has been off Ativan for at least 2 weeks. When she saw her yesterday, she was normal, and earlier this morning, approximately 4 hours ago she was texting with her, and she went over to her house and patient was hyperventilating. Patient will only intermittently answer questions. She will hyperventilate and sit up in bed, then lay back and down. 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 Non-ischemic cardiomyopathy Schizophrenia Sick sinus syndrome Stroke/cerebrovascular accident Home Medications oxybutynin chloride 10 mg tablet,extended release 24 hr 10 mg PO DAILY 02/14/19 [History Last Taken 01/27/21] valbenazine 40 mg capsule 40 mg PO DAILY 08/29/19 [History Last Taken 01/26/21] rosuvastatin 5 mg tablet 5 mg PO DAILY #90 tab 02/28/20 [Rx Last Taken 01/26/21] aspirin 81 mg tablet,delayed release 81 mg PO DAILY 11/27/20 [History Last Taken 01/27/21] clopidogrel 75 mg tablet 75 mg PO DAILY 11/27/20 [History Last Taken 01/27/21] aripiprazole lauroxil 882 mg/3.2 mL suspension, ext.rel. IM syringe 882 mg IM QMONTH 03/03/21 [History Last Taken Unknown] mirtazapine 30 mg tablet 30 mg PO QHS 03/03/21 [History Last Taken Unknown] oxcarbazepine 300 mg tablet 300 mg PO BID 03/03/21 [History Last Taken Unknown] trazodone 150 mg tablet 75 mg PO QHS tab 03/03/21 [History Last Taken Unknown] citalopram 10 mg tablet 10 mg PO DAILY 04/09/21 [History Last Taken Unknown] warfarin 2.5 mg tablet 2.5 mg PO .COMPLEX #30 tab 10/19/21 [Rx Last Taken Unknown] warfarin 5 mg tablet 5 mg PO .COMPLEX #30 tab 10/19/21 [Rx Last Taken Unknown] amlodipine 5 mg tablet 5 mg PO DAILY #30 tab 11/02/21 [Rx Last Taken Unknown] hydroxyzine pamoate [Vistaril] 50 mg PO TID PRN #20 cap 11/10/21 [Rx Last Taken Unknown] Allergy/AdvReac Type Severity Reaction Status Date / Time amoxicillin [Amoxicillin] Allergy Hives Verified 11/10/21 10:42 latex Allergy Rash Verified 11/10/21 10:42 lisinopril Allergy Unknown Verified 11/10/21 10:42 Penicillins Allergy Hives Verified 11/10/21 10:42 venom-honey bee Allergy Swelling Verified 11/10/21 10:42 [bee venom (honey bee)] ciprofloxacin [From Cipro] AdvReac Nausea/Vom/ Verified 11/10/21 10:42 Diarrhea Surgical History History of History of mitral valve replacement with bioprosthetic valve (07/23/09) History of partial colectomy Presence of cardiac pacemaker (09/21/20) Social History Smoking Status: Unknown if ever smoked alcohol intake: current alcohol intake frequency: holidays/special occasions only substance use type: does not use caffeine: Yes Type: carbonated beverages Number of servings: 1 EXAM Physical Exam Narrative Exam Narrative: Afebrile. Vital signs noted. HEENT: Normocephalic. Atraumatic. PERRL, EOMI. Neck soft and supple. No point tenderness or step off. Cardiovascular: Regular rate and rhythm. No murmurs, rubs, or gallops appreciated. Respiratory: Positive hyperventilation. Lungs clear to auscultation bilaterally. Gastrointestinal: Abdomen soft, nontender, with normoactive bowel sounds. No rebound or guarding. Neurological: Awake. Alert. Nonfocal, nonlateralizing. Skin: No rash. Normal color. No pallor. Musculoskeletal: No pedal edema. Full range of motion extremities. Psychiatric: Intermittently answers questions. Pattern breathing, then sits up in bed minimally back down. Admits to having anxiety. Const Vital Signs: 11/10/21 10:40 Temperature 97.9 F Temperature Source Temporal Pulse Rate 96 Respiratory Rate 14 Blood Pressure 120/77 Blood Pressure Mean 91 Pulse Ox 98 Oxygen Delivery Method Room Air MDM MDM MDM Narrative Medical decision making narrative: Her neighbor states that she was only given a 1 month supply of Ativan. She has been off of it for 2 weeks. I see no emergent withdrawal symptoms from Ativan/benzodiazepines. She was administered Vistaril 50 mg intramuscularly for her panic attacks/anxiety. After medication, while watching the patient through the window, she is resting comfortably. However, upon entry to the room, she will start hyperventilating again and sitting up in bed then laying back down. I do feel that this may be more of a psychogenic hyperventilation syndrome. She is able to answer more questions. She states that she does see a psychiatrist and that is who was writing for her Ativan previously. I do not feel that any laboratory work is indicated. She will be given a prescription for Vistaril 50 mg #20 and told to follow-up with her psychiatrist as soon as possible should they want to start her on benzodiazepines again. Return instructions were reviewed. Disposition is discharged home in stable condition. Discharge Plan Triage Chief Complaint: Anxiety ED Provider: Arie Thomas Dx/Rx/DC Orders Clinical Impression: Anxiety, Psychogenic hyperventilation, History of bipolar disorder Instructions: ED Hyperventilation Syndrome, ED Panic Attack Prescriptions: New hydroxyzine pamoate [Vistaril] 50 mg capsule 50 mg PO TID PRN (Reason: anxiety) Qty: 20 RF: 0 No Action oxybutynin chloride 10 mg tablet extended release 24hr 10 mg PO DAILY RF: 0 Ingrezza 40 mg capsule 40 mg PO DAILY RF: 0 aspirin [Adult Low Dose Aspirin] 81 mg tablet,delayed release (DR/EC) 81 mg PO DAILY RF: 0 clopidogrel [Plavix] 75 mg tablet 75 mg PO DAILY RF: 0 citalopram [Celexa] 10 mg tablet 10 mg PO DAILY RF: 0 amlodipine 5 mg tablet 5 mg PO DAILY Qty: 30 RF: 11 rosuvastatin 5 mg tablet 5 mg PO DAILY Qty: 90 RF: 3 trazodone 150 mg tablet 75 mg PO QHS RF: 0 oxcarbazepine [Trileptal] 300 mg tablet 300 mg PO BID RF: 0 mirtazapine [Remeron] 30 mg tablet 30 mg PO QHS RF: 0 Aristada 882 mg/3.2 mL suspension,extended rel syring 882 mg IM QMONTH RF: 0 warfarin 5 mg tablet 5 mg PO .COMPLEX Qty: 30 RF: 11 warfarin 2.5 mg tablet 2.5 mg PO .COMPLEX Qty: 30 RF: 11 Primary Care Provider: Louis Dobbs Referrals: Louis Dobbs MD [Primary Care Provider] - Activity Restrictions/Additional Instructions: Follow-up with your psychiatrist as soon as possible. Disposition Disposition: Home, Self Care
[2021-11-10] MEDS: hydrOXYzine 50 MG/ML Vial IM (11:00)
[2021-11-10 11:59] VITALS: RESP 22
== END 2021-11-10 12:00 | disposition home or self-care (01) ==
PROVIDERS: Emergency Provider Emergency Medicine; PCP Internal Medicine; Visit Provider Emergency Medicine
DX: F41.9 Anxiety disorder, unspecified (principal); F20.9 Schizophrenia, unspecified; I42.8 Other cardiomyopathies; F31.9 Bipolar disorder, unspecified; I49.5 Sick sinus syndrome; R06.4 Hyperventilation; J45.909 Unspecified asthma, uncomplicated; Z86.73 Personal history of transient ischemic attack (TIA), and cerebral infarction without residual deficits; Z79.01 Long term (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 anticoagulants; Z79.82 Long term (current) use of aspirin; Z79.899 Other long term (current) drug therapy; Z79.02 Long term (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 antithrombotics/antiplatelets; Z95.2 Presence of prosthetic heart valve; Z95.1 Presence of aortocoronary bypass graft
CPT/HCPCS: 96372; 99282

== ENCOUNTER 2021-11-23 09:25 | Outpatient (CLI) | payer MEDICARE, MEDICAID, SELFPAY ==
[2021-11-23 11:26] LABS: INR Fingerstick 4.5
[2021-11-23 11:52] LABS: International Normalized Ratio 3.9
== END 2021-11-23 23:59 | disposition home or self-care (01) ==
LOC: LAB 09:26
PROVIDERS: PCP Internal Medicine; Visit Provider Physician Assistant Medical
DX: I48.0 Paroxysmal atrial fibrillation (principal); Z79.01 Long term (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 anticoagulants
CPT/HCPCS: 36416; 85610

== ENCOUNTER 2021-12-06 09:50 | Emergency (ER) | payer MEDICARE, MEDICAID, SELFPAY ==
[2021-12-06 09:50] VITALS: BP 80/50; PULSE 93; RESP 18; TEMP 36.1; O2SAT 96; BMI 33.8
--- NOTE | 2021-12-06 10:11 | EDS_ITS ---
HPI History of Present Illness Chief Complaint: Nosebleed Informant: patient Narrative Narrative: 56-year-old female brought to the emergency department with intermittent nosebleed since Monday. The patient is on Coumadin, Plavix, and aspirin. She has had a prior stroke. Patient states that the nose has been bleeding from both sides. She states she feels a going on the back of her throat. 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 Non-ischemic cardiomyopathy Schizophrenia Sick sinus syndrome Stroke/cerebrovascular accident Home Medications oxybutynin chloride 10 mg tablet,extended release 24 hr 10 mg PO DAILY 02/14/19 [History Last Taken 01/27/21] valbenazine 40 mg capsule 40 mg PO DAILY 08/29/19 [History Last Taken 01/26/21] rosuvastatin 5 mg tablet 5 mg PO DAILY #90 tab 02/28/20 [Rx Last Taken 01/26/21] aspirin 81 mg tablet,delayed release 81 mg PO DAILY 11/27/20 [History Last Taken 01/27/21] clopidogrel 75 mg tablet 75 mg PO DAILY 11/27/20 [History Last Taken 01/27/21] aripiprazole lauroxil 882 mg/3.2 mL suspension, ext.rel. IM syringe 882 mg IM QMONTH 03/03/21 [History Last Taken Unknown] mirtazapine 30 mg tablet 30 mg PO QHS 03/03/21 [History Last Taken Unknown] oxcarbazepine 300 mg tablet 300 mg PO BID 03/03/21 [History Last Taken Unknown] trazodone 150 mg tablet 75 mg PO QHS tab 03/03/21 [History Last Taken Unknown] citalopram 10 mg tablet 10 mg PO DAILY 04/09/21 [History Last Taken Unknown] warfarin 2.5 mg tablet 2.5 mg PO .COMPLEX #30 tab 10/19/21 [Rx Last Taken Unknown] warfarin 5 mg tablet 5 mg PO .COMPLEX #30 tab 10/19/21 [Rx Last Taken Unknown] amlodipine 5 mg tablet 5 mg PO DAILY #30 tab 11/02/21 [Rx Last Taken Unknown] hydroxyzine pamoate [Vistaril] 50 mg PO TID PRN #20 cap 11/10/21 [Rx Last Taken Unknown] Allergy/AdvReac Type Severity Reaction Status Date / Time amoxicillin [Amoxicillin] Allergy Hives Verified 12/06/21 09:55 latex Allergy Rash Verified 12/06/21 09:55 lisinopril Allergy Unknown Verified 12/06/21 09:55 Penicillins Allergy Hives Verified 12/06/21 09:55 venom-honey bee Allergy Swelling Verified 12/06/21 09:55 [bee venom (honey bee)] ciprofloxacin [From Cipro] AdvReac Nausea/Vom/ Verified 12/06/21 09:55 Diarrhea Surgical History History of History of mitral valve replacement with bioprosthetic valve (07/23/09) History of partial colectomy Presence of cardiac pacemaker (09/21/20) Social History Smoking Status: Current every day smoker tobacco type: cigarettes alcohol intake: current alcohol intake frequency: holidays/special occasions only substance use type: does not use caffeine: Yes Type: carbonated beverages Number of servings: 1 ROS ROS ED Constitutional Constitutional ED: Denies chills, fever(s) or weight loss Eyes Eyes: Denies change in vision or diplopia ENT ENT ED: Reports other Details: Epistaxis ; Denies ear pain, rhinorrhea or sore throat Cardiovascular Cardiovascular: Denies chest pain, orthopnea, palpitations or racing heartbeat Respiratory/Chest Respiratory/Chest: Denies cough, dyspnea or orthopnea Gastrointestinal Gastrointestinal: Denies abdominal pain, diarrhea, nausea or vomiting Genitourinary Genitourinary ED: Denies dysuria, hematuria or urinary frequency Musculoskeletal Musculoskeletal: Denies arthralgias or myalgias Integumentary Reports other Details: Easy bruising ; Denies abscess or rash Neurologic Neurologic: Denies headache(s) or weakness Psychiatric Psychiatric: Denies anxiety, depression, suicidal ideation or suicidal thoughts Endocrine Endocrinology: Denies polydipsia, polyphagia or polyuria Allergic/Immunologic Allergic/Immunologic ED: Denies mouth swelling, tongue swelling or urticaria EXAM Physical Exam Const Vital Signs: 12/06/21 09:50 Temperature 97.0 F L Temperature Source Temporal Pulse Rate 93 Respiratory Rate 18 Blood Pressure 80/50 L Blood Pressure Mean 60 Pulse Ox 96 Oxygen Delivery Method Room Air Positive well nourished, well developed and obese General Appearance ED: well developed Nutritional Appearance: obese HEENT Reports normocephalic, head/scalp atraumatic, TM's clear and moist mucous membranes HEENT Narrative: Dried blood left greater than right nares no active bleeding seen. No blood in the oropharynx. Negative for trauma Tympanic Membrane ED: Yes TM's clear Eyes PERRL and EOMs intact bilaterally Neck no lymphadenopathy, supple and no JVD Resp normal respiratory effort and clear to auscultation bilaterally Cardio regular rate, regular rhythm and no murmurs GI normal to inspection, nondistended, normoactive bowel sounds and non-tender Palpation: soft Back/Spine no CVA tenderness and normal ROM Extremity normal to inspection General Extremety ED: Negative for edema General Extremity: Negative for edema Neuro CN's II-XII intact bilaterally Sensorium / Orientation: alert Motor Exam: strength 5/5 throughout Psych mental status grossly normal Mood & Affect: Negative for depressed or tearful Skin Skin Narrative: Various bruising throughout arms legs back MDM MDM MDM Narrative Medical decision making narrative: Hemoglobin 12.6 with an INR 4.3. Patient's not had any active bleeding. I am hesitant to place any packing in the nose as with her mental status I worry she may potentially harm herself by taking the packing out. She is on aspirin Plavix and Coumadin with an INR 4.3. She needs to hold her Coumadin in a.m. we will try to treat this at home without any packing by getting her INR down. Family is comfortable with this plan. Lab Data Attestation: I reviewed the patient's lab results. Labs: Laboratory Results - last 24 hr 12/06/21 12/06/21 12/06/21 10:35 10:35 10:35 WBC 8.1 RBC 4.07 L Hgb 12.6 Hct 38.6 MCV 94.8 MCH 31.0 MCHC 32.6 RDW Std Deviation 51.8 H RDW Coeff of Jonathon 14.9 H Plt Count 279 MPV 9.8 Immature Gran % (Auto) 0.200 Neut % (Auto) 76.8 H Lymph % (Auto) 15.5 L Grundy % (Auto) 5.8 Eos % (Auto) 1.1 Baso % (Auto) 0.6 Absolute Neuts (auto) 6.2 Absolute Lymphs (auto) 1.25 Nucleated RBC % 0 PT 40.9 H INR 4.3 H* Sodium 141 Potassium 4.2 Chloride 112 H Carbon Dioxide 25.0 Anion Gap 4 L BUN 22 H Creatinine 1.16 H Estim Creat Clear Calc 43.85 Est GFR (MDRD) Af Amer 63 Est GFR (MDRD) Non-Af 52 L BUN/Creatinine Ratio 19.0 Glucose 103 Calcium 8.7 Discharge Plan Triage Chief Complaint: Nosebleed ED Provider: Dillon Cabezas Dx/Rx/DC Orders Clinical Impression: Epistaxis, Supratherapeutic INR Instructions: ED Epistaxis (Adult) Prescriptions: No Action oxybutynin chloride 10 mg tablet extended release 24hr 10 mg PO DAILY RF: 0 Ingrezza 40 mg capsule 40 mg PO DAILY RF: 0 aspirin [Adult Low Dose Aspirin] 81 mg tablet,delayed release (DR/EC) 81 mg PO DAILY RF: 0 clopidogrel [Plavix] 75 mg tablet 75 mg PO DAILY RF: 0 citalopram [Celexa] 10 mg tablet 10 mg PO DAILY RF: 0 amlodipine 5 mg tablet 5 mg PO DAILY Qty: 30 RF: 11 hydroxyzine pamoate [Vistaril] 50 mg capsule 50 mg PO TID PRN (Reason: anxiety) Qty: 20 RF: 0 rosuvastatin 5 mg tablet 5 mg PO DAILY Qty: 90 RF: 3 trazodone 150 mg tablet 75 mg PO QHS RF: 0 oxcarbazepine [Trileptal] 300 mg tablet 300 mg PO BID RF: 0 mirtazapine [Remeron] 30 mg tablet 30 mg PO QHS RF: 0 Aristada 882 mg/3.2 mL suspension,extended rel syring 882 mg IM QMONTH RF: 0 warfarin 5 mg tablet 5 mg PO .COMPLEX Qty: 30 RF: 11 warfarin 2.5 mg tablet 2.5 mg PO .COMPLEX Qty: 30 RF: 11 Primary Care Provider: Louis Dobbs Referrals: See Rodgers MD [STAFF PHYSICIAN] - As Needed Louis Dobbs MD [Primary Care Provider] - As Needed Activity Restrictions/Additional Instructions: Please hold your Coumadin for the next 3 doses. Your INR today is 4.3. If you start to have nosebleed please use the nasal pincers. You may also try some Afrin nasal spray. If your bleeding is not stopping please come to emergency. Disposition Disposition: Home, Self Care
[2021-12-06 10:51] LABS: Absolute Lymphocyte Count 1.25 X10^3/uL (0.83-4.51); Absolute Neutrophil Count 6.2 X10^3/uL (2.0-7.7); Basophil# 0.05 X10^3/uL; Basophil% 0.6 % (0-1); Eosinophil# 0.09 X10^3/uL; Eosinophils% 1.1 % (0-5); Hematocrit 38.6 % (37-47); Hemoglobin 12.6 g/dL (12.0-15.0); Lymphocyte # 1.25 X10^3/ul (0.83-4.51); Lymphocyte % 15.5 % (19-41); Mean Corp Hgb Conc 32.6 g/dL (32-36); Mean Corpuscular Volume 94.8 fL (81-99); Mean Platelet Vol. 9.8 fl (6.2-12.0); Monocyte# 0.47 X10^3/uL; Monocyte% 5.8 % (0-10); NRBC Flagged by Analyzer 0 % (0-5); Neutrophil # 6.19 X10^3/uL (2.7-7.7); Neutrophil % 76.8 % (47-70); Platelet Count 279 K/mm3 (150-450); RBC Distribution Width CV 14.9 % (11.6-14.6); RBC Distribution Width SD 51.8 fl (35.1-43.9); Red Blood Count 4.07 M/mm3 (4.2-5.4); White Blood Count 8.1 K/mm3 (4.4-11.0)
[2021-12-06 10:57] LABS: Prothrombin Time (Protime)PT. 40.9 SECONDS (11.7-14.9)
[2021-12-06 11:04] LABS: Anion Gap 4 (5-15); BUN 22 mg/dL (7-18); Calcium,Total 8.7 mg/dL (8.5-10.1); Chloride 112 mmol/L (98-107); Creatinine, Serum 1.16 mg/dL (0.55-1.02); EST Glomerular Filtration Rate 52 mL/min (>60); Est Glom Filt Rate - Afr Amer 63 mL/min (>60); Estimated Creatinine Clearance 43.85 ml/min; Glucose 103 mg/dL (74-106); Potassium 4.2 mmol/L (3.5-5.1); Sodium Level 141 mmol/L (136-145)
[2021-12-06 11:14] LABS: International Normalized Ratio 4.3
[2021-12-06 11:44] VITALS: BP 91/64; PULSE 91; RESP 16; O2SAT 98
== END 2021-12-06 11:45 | disposition home or self-care (01) ==
PROVIDERS: Emergency Provider Emergency Medicine; PCP Internal Medicine; Visit Provider Emergency Medicine
DX: R04.0 Epistaxis (principal); F20.9 Schizophrenia, unspecified; I42.8 Other cardiomyopathies; I49.5 Sick sinus syndrome; R79.1 Abnormal coagulation profile; E66.9 Obesity, unspecified; F17.210 Nicotine dependence, cigarettes, uncomplicated; Z95.2 Presence of prosthetic heart valve; Z95.0 Presence of cardiac pacemaker; F41.9 Anxiety disorder, unspecified; Z86.73 Personal history of transient ischemic attack (TIA), and cerebral infarction without residual deficits; J45.909 Unspecified asthma, uncomplicated; Z79.82 Long term (current) use of aspirin; Z79.01 Long term (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 anticoagulants; Z79.899 Other long term (current) drug therapy; Z79.02 Long term (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 antithrombotics/antiplatelets; Z68.33 Body mass index [BMI] 33.0-33.9, adult
CPT/HCPCS: 80048; 85025; 85610; 99282; A4216

== ENCOUNTER → 2021-12-10 | Outpatient (CLI) | payer MEDICARE, MEDICAID, SELFPAY ==
[2021-12-10 11:00] LABS: INR Fingerstick 1.6; Prothrombin Time Fingerstick 19.6 SEC (11.7-14.9)
== END | disposition home or self-care (01) ==
LOC: LAB 09:36
PROVIDERS: PCP Internal Medicine; Visit Provider Physician Assistant Medical
DX: I48.0 Paroxysmal atrial fibrillation (principal); Z79.01 Long term (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 anticoagulants
CPT/HCPCS: 36416; 85610

== ENCOUNTER → 2021-12-13 | Outpatient (CLI) | payer MEDICARE, MEDICAID, SELFPAY ==
[2021-12-13 10:51] LABS: INR Fingerstick 5.8
[2021-12-13 11:16] LABS: International Normalized Ratio 4.2
== END | disposition home or self-care (01) ==
LOC: LAB 09:27
PROVIDERS: PCP Internal Medicine; Referring Provider Physician Assistant Medical; Visit Provider Physician Assistant Medical
DX: I48.0 Paroxysmal atrial fibrillation (principal); Z79.01 Long term (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 anticoagulants
CPT/HCPCS: 36415; 36416; 85610

== ENCOUNTER 2021-12-14 10:12 | Inpatient (IN) | payer MEDICARE, MEDICAID, SELFPAY ==
[2021-12-14 10:13] VITALS: BP 109/76; PULSE 95; RESP 18; TEMP 36.6; O2SAT 97; BMI 31.6
--- NOTE | 2021-12-14 10:39 | EKG12_ITS ---
Test Reason : Blood Pressure : / mmHG Vent. Rate : 090 BPM Atrial Rate : 090 BPM P-R Int : 180 ms QRS Dur : 170 ms QT Int : 430 ms P-R-T Axes : 047 -69 088 degrees QTc Int : 526 ms Atrial-sensed ventricular-paced rhythm with frequent Premature ventricular complexes Abnormal ECG Confirmed by SATURNINO BAZAN, CHERYLE ([id number]), editor greeting card MAYLIN ARGUELLO ([id number]) on 12/15/2021 12:51:27 PM Referred By: TL Confirmed By:CHERYLE MATAMOROS MD
[2021-12-14] MEDS: Lidocaine/Epi/Tetracaine 50 ML 1 APPLIC TOPICAL (10:55)
[2021-12-14 11:14] LABS: Absolute Lymphocyte Count 1.21 X10^3/uL (0.83-4.51); Basophil# 0.05 X10^3/uL; Basophil% 0.6 % (0-1); Eosinophils% 1.1 % (0-5); Hematocrit 41.1 % (37-47); Hemoglobin 13.7 g/dL (12.0-15.0); Lymphocyte # 1.21 X10^3/ul (0.83-4.51); Lymphocyte % 13.5 % (19-41); Mean Corp Hgb Conc 33.3 g/dL (32-36); Mean Corpuscular Hgb 31.2 pg (27.0-32.0); Mean Corpuscular Volume 93.6 fL (81-99); Monocyte# 0.58 X10^3/uL; Monocyte% 6.5 % (0-10); NRBC Flagged by Analyzer 0 % (0-5); Neutrophil # 6.97 X10^3/uL (2.7-7.7); Platelet Count 299 K/mm3 (150-450); RBC Distribution Width CV 15.1 % (11.6-14.6); RBC Distribution Width SD 52.3 fl (35.1-43.9); Red Blood Count 4.39 M/mm3 (4.2-5.4); White Blood Count 8.9 K/mm3 (4.4-11.0)
[2021-12-14 11:20] LABS: Prothrombin Time (Protime)PT. 47.4 SECONDS (11.7-14.9)
--- NOTE | 2021-12-14 11:23 | ED.RN ---
Elaine from social work is aware of issues at home. She will be up to talk to pt
[2021-12-14 11:27] LABS: Anion Gap 7 (5-15); BUN 25 mg/dL (7-18); BUN/Creat Ratio 20.5 RATIO (10-20); Calcium,Total 9.4 mg/dL (8.5-10.1); Chloride 108 mmol/L (98-107); Creatinine, Serum 1.22 mg/dL (0.55-1.02); EST Glomerular Filtration Rate 49 mL/min (>60); Est Glom Filt Rate - Afr Amer 59 mL/min (>60); Estimated Creatinine Clearance 41.69 ml/min; Glucose 120 mg/dL (74-106); Potassium 4.4 mmol/L (3.5-5.1); Sodium Level 139 mmol/L (136-145)
[2021-12-14 11:30] LABS: International Normalized Ratio 5.2
--- NOTE | 2021-12-14 11:31 | EX.ED.DYSGE1 ---
HPI History of Present Illness Chief Complaint: Nosebleed Informant: patient Narrative Narrative: Patient brought by EMS report concerns for nosebleed. However discussion with the patient left finger bleeding since having a fingerstick for her warfarin yesterday. She is on warfarin for history of paroxysmal atrial fibrillation. She is also on aspirin and Plavix for history of stroke. Of note she was seen 8 days ago for epistaxis that was controlled in the ED not requiring packing. Reported there is nosebleed yesterday that was controlled. Patient thinks she had her finger in her nose since the finger bleed causing blood in her nose. She called EMS for this. Additional discussion with the patient she states she has not walked in 3 days. She typically ambulates with a walker. She lives at home with her 12-year-old son who is currently in school. When discussed with other family members states her mother is currently in the hospital and her father is there with her. No other family at home. Parents do not live with her. Note she does have a pacemaker for history of sick sinus syndrome and complete heart block. 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 Former smoker halfway (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 anticoagulants Non-ischemic cardiomyopathy Schizophrenia Sick sinus syndrome Stroke/cerebrovascular accident Home Medications oxybutynin chloride 10 mg tablet,extended release 24 hr 10 mg PO DAILY 02/14/19 [History Last Taken 01/27/21] valbenazine 40 mg capsule 40 mg PO DAILY 08/29/19 [History Last Taken 01/26/21] rosuvastatin 5 mg tablet 5 mg PO DAILY #90 tab 02/28/20 [Rx Last Taken 01/26/21] aspirin 81 mg tablet,delayed release 81 mg PO DAILY 11/27/20 [History Last Taken 01/27/21] clopidogrel 75 mg tablet 75 mg PO DAILY 11/27/20 [History Last Taken 01/27/21] aripiprazole lauroxil 882 mg/3.2 mL suspension, ext.rel. IM syringe 882 mg IM QMONTH 03/03/21 [History Last Taken Unknown] mirtazapine 30 mg tablet 30 mg PO QHS 03/03/21 [History Last Taken Unknown] oxcarbazepine 300 mg tablet 300 mg PO BID 03/03/21 [History Last Taken Unknown] trazodone 150 mg tablet 75 mg PO QHS tab 03/03/21 [History Last Taken Unknown] citalopram 10 mg tablet 10 mg PO DAILY 04/09/21 [History Last Taken Unknown] warfarin 2.5 mg tablet 2.5 mg PO .COMPLEX #30 tab 10/19/21 [Rx Last Taken Unknown] warfarin 5 mg tablet 5 mg PO .COMPLEX #30 tab 10/19/21 [Rx Last Taken Unknown] amlodipine 5 mg tablet 5 mg PO DAILY #30 tab 11/02/21 [Rx Last Taken Unknown] hydroxyzine pamoate [Vistaril] 50 mg PO TID PRN #20 cap 11/10/21 [Rx Last Taken Unknown] Allergy/AdvReac Type Severity Reaction Status Date / Time amoxicillin [Amoxicillin] Allergy Hives Verified 12/14/21 10:18 latex Allergy Rash Verified 12/14/21 10:18 lisinopril Allergy Unknown Verified 12/14/21 10:18 Penicillins Allergy Hives Verified 12/14/21 10:18 venom-honey bee Allergy Swelling Verified 12/14/21 10:18 [bee venom (honey bee)] ciprofloxacin [From Cipro] AdvReac Nausea/Vom/ Verified 12/14/21 10:18 Diarrhea Surgical History History of History of mitral valve replacement with bioprosthetic valve (07/23/09) History of partial colectomy Presence of cardiac pacemaker (09/21/20) Social History Smoking Status: Former smoker alcohol intake: current alcohol intake frequency: holidays/special occasions only substance use type: does not use caffeine: Yes Type: carbonated beverages Number of servings: 1 ROS ROS ED Constitutional Constitutional ED: Denies chills, fever(s) or sweats Eyes Eyes: Denies change in vision ENT ENT ED: Reports other Details: Nosebleed controlled ; Denies dysphagia or sore throat Cardiovascular Cardiovascular: Denies chest pain, leg edema, palpitations or racing heartbeat Respiratory/Chest Respiratory/Chest: Denies cough, dyspnea or dyspnea on exertion Gastrointestinal Gastrointestinal: Denies abdominal pain, diarrhea, nausea or vomiting Genitourinary Genitourinary ED: Denies dysuria, hematuria or urinary frequency Musculoskeletal Musculoskeletal: Denies back pain, extremity pain or neck pain Integumentary Reports other Details: Bleeding from left finger ; Denies rash or wounds Neurologic Neurologic: Denies headache(s), paresthesias or weakness EXAM Physical Exam Const Vital Signs: 12/14/21 10:13 12/14/21 12:52 Temperature 97.9 F Temperature Source Oral Pulse Rate 95 83 Respiratory Rate 18 18 Blood Pressure 109/76 107/57 L Blood Pressure Mean 87 73 Pulse Ox 97 95 Oxygen Delivery Method Room Air Room Air Positive well nourished and well developed General Appearance ED: well developed and NAD HEENT Reports moist mucous membranes HEENT Narrative: Dried blood in the left nare with no active bleeding. No posterior pharyngeal bleeding. normocephalic and atraumatic Eyes PERRL, EOMs intact bilaterally and conjunctivae normal General Eye ED: Yes normal appearance of both eyes Neck no lymphadenopathy and supple General: Negative for tenderness Chest Wall Chest: Negative for tenderness Resp normal respiratory effort and normal air movement Effort and Inspection: symmetric chest movement; Negative for respiratory distress Cardio regular rate, regular rhythm and no murmurs Peripheral Pulses: pulses 2+ throughout GI normal to inspection, nondistended, normoactive bowel sounds and non-tender Palpation: Negative for guarding or rebound tenderness present Back/Spine no CVA tenderness and no thoracic nor lumbar tenderness Extremity Extremity Narrative: Left hand ring finger: There was soaked dressing of blood this was removed for puncture bleed was noted at the distal tip. General Extremety ED: Negative for edema or tenderness General Extremity: Negative for edema Neuro oriented x3 and no sensory deficits noted Sensorium / Orientation: awake and alert Skin Skin Narrative: See above MDM MDM MDM Narrative Medical decision making narrative: Dried blood from patient's nare with no active bleeding. She has bleeding from her finger from puncture site. I ordered for LET for placement and control of bleeding. With her reported concerns for inability to ambulate for 3 days. She is only alert and oriented person place reporting she has a 12-year-old son who is in school and no other family to help. I do not know the patient's baseline mental status from her 8 days ago visit with her epistaxis notes she was just alert. However there was noted concerns of how she would tolerate a packing of placed due to medical history. I am concerned for social issues at home and taking care of her child. Social work is consulted to the ED for evaluation. Laboratory studies were obtained along with urine. 1135: INR returned at 5.2. Hemoglobin 13.7. Creatinine 1.22 stable from previous. Recheck bleeding after let was placed a couple times by nursing, there is still minimal bleeding, was able to provide hemostasis with silver nitrate stick. Monitor there is no rebleeding from this. 1300: Urine returned positive for infection culture obtained Rocephin started. Multiple evaluations for records for multiple notes no clear evaluation of her baseline mental status. Known stroke history. Social work evaluated the patient, states over the last 3 days Around her 12-year-old son has been taking care of himself and getting ready for school the last couple days. I did add a CT brain which returned with no acute process. Stable epistaxis stable left finger puncture wound, social work is managing and looking into patient's son at this time who is currently in school. She states she has contacts with brothers. They will follow as an inpatient. I spoke with hospitalist Dr. Arellano, will admit to [facility]. Lab Data Attestation: I reviewed the patient's lab results. Labs: Laboratory Results - last 24 hr 12/14/21 12/14/21 12/14/21 11:01 11:01 11:01 WBC 8.9 RBC 4.39 Hgb 13.7 Hct 41.1 MCV 93.6 MCH 31.2 MCHC 33.3 RDW Std Deviation 52.3 H RDW Coeff of Jonathon 15.1 H Plt Count 299 MPV 10.0 Immature Gran % (Auto) 0.300 Neut % (Auto) 78.0 H Lymph % (Auto) 13.5 L Kemper % (Auto) 6.5 Eos % (Auto) 1.1 Baso % (Auto) 0.6 Absolute Neuts (auto) 7.0 Absolute Lymphs (auto) 1.21 Nucleated RBC % 0 PT 47.4 H INR 5.2 H* Sodium 139 Potassium 4.4 Chloride 108 H Carbon Dioxide 24.0 Anion Gap 7 BUN 25 H Creatinine 1.22 H Estim Creat Clear Calc 41.69 Est GFR (MDRD) Af Amer 59 L Est GFR (MDRD) Non-Af 49 L BUN/Creatinine Ratio 20.5 H Glucose 120 H Calcium 9.4 Urine Color Urine Clarity Urine pH Ur Specific [place] Urine Protein Urine Glucose (UA) Urine Ketones Urine Occult Blood Urine Nitrite Urine Bilirubin Urine Urobilinogen Ur Leukocyte Esterase Urine RBC Urine WBC Ur Squamous Epith Cells Calcium Oxalate Crystal Urine Bacteria Urine Mucus 12/14/21 11:27 WBC RBC Hgb Hct MCV MCH MCHC RDW Std Deviation RDW Coeff of Jonathon Plt Count MPV Immature Gran % (Auto) Neut % (Auto) Lymph % (Auto) Kemper % (Auto) Eos % (Auto) Baso % (Auto) Absolute Neuts (auto) Absolute Lymphs (auto) Nucleated RBC % PT INR Sodium Potassium Chloride Carbon Dioxide Anion Gap BUN Creatinine Estim Creat Clear Calc Est GFR (MDRD) Af Amer Est GFR (MDRD) Non-Af BUN/Creatinine Ratio Glucose Calcium Urine Color Yellow Urine Clarity Sl. Cloudy Urine pH 5.0 Ur Specific [place] 1.025 Urine Protein 30 H Urine Glucose (UA) Normal Urine Ketones 15 H Urine Occult Blood 10 H Urine Nitrite Positive H Urine Bilirubin 1 H Urine Urobilinogen 4 H Ur Leukocyte Esterase 100 H Urine RBC 0-5 SEEN Urine WBC 10-25 SEEN Ur Squamous Epith Cells 0-5 SEEN Calcium Oxalate Crystal RARE Urine Bacteria 1+ Urine Mucus 0 SEEN Radiography Diagnostic Testing: Clinical Impression(s) from Imaging Studies Brain CT 12/14/21 12:16 IMPRESSION: Stable examination demonstrating multiple areas of encephalomalacia more prominent in the left cerebral hemisphere with evidence of prior aneurysmal clipping in the region of the [place] of [place]. Electronically Signed: Miguel Lau MD at 12:53 EDT , EKG Initial EKG: Attestation: I personally reviewed and interpreted this EKG as follows: Comments: Atrial sensed, ventricular paced rhythm rate of 90, PVCs noted. No acute changes. Discharge Plan Dx/Rx/DC Orders Clinical Impression: UTI (urinary tract infection), Paroxysmal atrial fibrillation, Encephalopathy, Supratherapeutic INR, Puncture wound, Weakness, Left-sided epistaxis Disposition Disposition: Acute Care [facility] Discharge Date/Time: 12/14/21 13:51
[2021-12-14 11:35] LABS: Mucous, Urine 0 SEEN /hpf (<or=2+)
[2021-12-14 11:38] LABS: Color, Urine Yellow (Yellow); Glucose, Dipstick Normal (Normal); Ketone-Dipstick 15 mg/dl (Negative); Leukocyte Esterase-Dipstick 100 /ul (Negative); Nitrite-Dipstick Positive (Negative); Occult Blood-Urine 10 /ul (Negative); Protein-Dipstick 30 mg/dl (Negative); Specific Gravity, Urine 1.025 (1.002-1.030); Urine Clarity Sl. Cloudy (Clear); Urine Urobilinogen 4 mg/dl (Normal)
[2021-12-14 11:39] LABS: Urine Bilirubin Dipstick 1 mg/dL (Negative)
[2021-12-14 11:44] LABS: Red Blood Cells-Urine 0-5 SEEN /hpf (0-5)
[2021-12-14 11:45] LABS: Bacteria 1+ /hpf (None Seen); Calcium Oxalate Crystals Ur RARE /hpf (<or=2+); Squamous Epithelial Cells - UA 0-5 SEEN /hpf (5-10); White Blood Cells 10-25 SEEN /hpf (0-5)
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
[2021-12-14] MEDS: Ceftriaxone 1 GM/50 ML BAG IV (12:16)
--- NOTE | 2021-12-14 12:16 | CT_ITS ---
STUDY: CT BRAIN WITHOUT CONTRAST REASON FOR EXAM: Female, 56 years old. Confusion. History of prior aneurysmal repair. RADIATION DOSAGE (If Supplied By Facility): CTDIvol = ( 44.99 ) mGy, DLP = ( 837.39 ) mGycm TECHNIQUE: Transaxial CT imaging of the brain was performed without administration of intravenous contrast material. Individualized dose optimization techniques were used for this CT. COMPARISON: Comparison is made with prior study dated 01/27/2021. FINDINGS: Normal soft tissue structures. Normal calvarium. There is mild cerebral atrophy with widening of the extra-axial spaces and ventricular dilatation. Stable bilateral multifocal areas of encephalomalacia more prominent in the left cerebral hemisphere. Once again, aneurysmal clips are seen in the region of the [place] of [place] were prominent on the right side. This causes beam hardening artifact and limited visualization of the base of the skull. Normal basal ganglia and thalami. Normal brainstem. Normal cerebellum. There is no intracranial hemorrhage. There are no findings of an acute ischemic infarction. Normal visualized paranasal sinuses. CT/Brain/Head without Contrast IMPRESSION: Stable examination demonstrating multiple areas of encephalomalacia more prominent in the left cerebral hemisphere with evidence of prior aneurysmal clipping in the region of the [place] of [place]. Electronically Signed: Miguel Lau MD at 12:53 EDT ,
[2021-12-14 12:52] VITALS: BP 107/57; PULSE 83; RESP 18; O2SAT 95
[2021-12-14 13:07] VITALS: BP 107/57; PULSE 83; RESP 18; TEMP 36.7; O2SAT 95
--- NOTE | 2021-12-14 13:09 | PCM.HP.STD ---
[facility] - General General Date of Admission: 12/14/21 Date of Service: 12/14/21 Chief Complaint: Confusion, nose bleed HPI Narrative FROILAN GARCÍA, is a 56 F who presents with the above. Patient is confused and is a poor historian. History was obtained from the review of charts and ED physician and social work. Patient reportedly lives alone in an apartment with his 13-year-old son. She has history of stroke, mitral valve replacement, uses a walker or cane for ambulation. Patient has reportedly not been able to take care of his 13-year-old son in the past 3 days. She has been having nosebleeds. Vitals in the ED are stable. Admitting blood work is unremarkable except for INR 5.2. CT of the brain is also unremarkable for acute bleed. [facility] Medical History (Updated 12/14/21 @ 16:[address] 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 Non-ischemic cardiomyopathy Schizophrenia Sick sinus syndrome Stroke/cerebrovascular accident Home Medications oxybutynin chloride 10 mg tablet,extended release 24 hr 10 mg PO DAILY 02/14/19 [History Last Taken 01/27/21] valbenazine 40 mg capsule 40 mg PO DAILY 08/29/19 [History Last Taken 01/26/21] rosuvastatin 5 mg tablet 5 mg PO DAILY #90 tab 02/28/20 [Rx Last Taken 01/26/21] aspirin 81 mg tablet,delayed release 81 mg PO DAILY 11/27/20 [History Last Taken 01/27/21] clopidogrel 75 mg tablet 75 mg PO DAILY 11/27/20 [History Last Taken 01/27/21] aripiprazole lauroxil 882 mg/3.2 mL suspension, ext.rel. IM syringe 882 mg IM QMONTH 03/03/21 [History Last Taken Unknown] mirtazapine 30 mg tablet 30 mg PO QHS 03/03/21 [History Last Taken Unknown] oxcarbazepine 300 mg tablet 300 mg PO BID 03/03/21 [History Last Taken Unknown] trazodone 150 mg tablet 75 mg PO QHS tab 03/03/21 [History Last Taken Unknown] citalopram 10 mg tablet 10 mg PO DAILY 04/09/21 [History Last Taken Unknown] warfarin 2.5 mg tablet 2.5 mg PO .COMPLEX #30 tab 10/19/21 [Rx Last Taken Unknown] warfarin 5 mg tablet 5 mg PO .COMPLEX #30 tab 10/19/21 [Rx Last Taken Unknown] amlodipine 5 mg tablet 5 mg PO DAILY #30 tab 11/02/21 [Rx Last Taken Unknown] hydroxyzine pamoate [Vistaril] 50 mg PO TID PRN #20 cap 11/10/21 [Rx Last Taken Unknown] Allergy/AdvReac Type Severity Reaction Status Date / Time amoxicillin [Amoxicillin] Allergy Hives Verified 12/14/21 10:18 latex Allergy Rash Verified 12/14/21 10:18 lisinopril Allergy Unknown Verified 12/14/21 10:18 Penicillins Allergy Hives Verified 12/14/21 10:18 venom-honey bee Allergy Swelling Verified 12/14/21 10:18 [bee venom (honey bee)] ciprofloxacin [From Cipro] AdvReac Nausea/Vom/ Verified 12/14/21 10:18 Diarrhea Surgical History History of History of mitral valve replacement with bioprosthetic valve (07/23/09) History of partial colectomy Presence of cardiac pacemaker (09/21/20) Social History Smoking Status: Former smoker alcohol intake: current alcohol intake frequency: holidays/special occasions only substance use type: does not use caffeine: Yes Type: carbonated beverages Number of servings: 1 Vital Signs Vital Signs Vital Signs: 12/14/21 10:13 12/14/21 12:52 12/14/21 13:07 Temperature 97.9 F 98.1 F Temperature Source Oral Oral Pulse Rate 95 83 83 Respiratory Rate 18 18 18 Blood Pressure 109/76 107/57 L 107/57 L Blood Pressure Mean 87 73 73 Pulse Ox 97 95 95 Oxygen Delivery Method Room Air Room Air Room Air Weight Weight: 78.4 kg Body Mass Index (BMI) 31.6 Physical Exam Narrative Physical exam: General: Alert, confused HEENT: Atraumatic Oral: Moist Mucosa Neck: Supple Lungs: Clear to auscultation Cardiovascular: HS I+II, regular, no murmurs Abdomen: Bowel Sounds Present, Soft, Non Tender Extremities: No edema Skin: No rashes, No breakdown Neurological: Right-sided hemiplegia Psych/Mental Status: Appropriate Results Lab / Micro Data Result Diagrams: 12/14/21 11:01 12/14/21 11:01 Labs: Laboratory Results - last 24 hr 12/14/21 11:01: WBC 8.9, RBC 4.39, Hgb 13.7, Hct 41.1, MCV 93.6, MCH 31.2, MCHC 33.3, RDW Std Deviation 52.3 H, RDW Coeff of Jonathon 15.1 H, Plt Count 299, MPV 10.0, Immature Gran % (Auto) 0.300, Neut % (Auto) 78.0 H, Lymph % (Auto) 13.5 L, [place] % (Auto) 6.5, Eos % (Auto) 1.1, Baso % (Auto) 0.6, Absolute Neuts (auto) 7.0, Absolute Lymphs (auto) 1.21, Nucleated RBC % 0 12/14/21 11:01: PT 47.4 H, INR 5.2 H* 12/14/21 11:01: Sodium 139, Potassium 4.4, Chloride 108 H, Carbon Dioxide 24.0, Anion Gap 7, BUN 25 H, Creatinine 1.22 H, Estim Creat Clear Calc 41.69, Est GFR (MDRD) Af Amer 59 L, Est GFR (MDRD) Non-Af 49 L, BUN/Creatinine Ratio 20.5 H, Glucose 120 H, Calcium 9.4 12/14/21 11:27: Urine Color Yellow, Urine Clarity Sl. Cloudy, Urine pH 5.0, Ur Specific [place] 1.025, Urine Protein 30 H, Urine Glucose (UA) Normal, Urine Ketones 15 H, Urine Occult Blood 10 H, Urine Nitrite Positive H, Urine Bilirubin 1 H, Urine Urobilinogen 4 H, Ur Leukocyte Esterase 100 H, Urine RBC 0-5 SEEN, Urine WBC 10-25 SEEN, Ur Squamous Epith Cells 0-5 SEEN, Calcium Oxalate Crystal RARE, Urine Bacteria 1+, Urine Mucus 0 SEEN Radiology Impression Brain CT 12/14/21 12:16 IMPRESSION: Stable examination demonstrating multiple areas of encephalomalacia more prominent in the left cerebral hemisphere with evidence of prior aneurysmal clipping in the region of the [place]. Electronically Signed: Miguel Lau MD at 12:53 EDT , Assessment & Plan Assessment/Plan (1) Hypertension: QUALIFIERS: Hypertension type: essential hypertension Qualified Code(s): I10 - Essential (primary) hypertension (2) Rheumatic mitral stenosis with insufficiency: (3) Nicotine dependence: (4) Paroxysmal atrial fibrillation: (5) Acute metabolic encephalopathy: PLAN: 1. Acute metabolic encephalopathy secondary to acute UTI Patient started on IV ceftriaxone, continue same Follow-up on urine culture 2. Supratherapeutic INR, INR is 5.2, hold Coumadin CT of the head is negative for acute bleed Repeat Coumadin in am 3. Nosebleed secondary to #2, status post silver nitrate stick with adequate hemostasis in the ED 4. Bipolar disorder, patient is currently confused 5. History of mitral valve replacement/paroxysmal atrial fibrillation/hypertension/status post pacemaker INR supratherapeutic Would hold Coumadin, repeat INR in a.m. 6. CKD stage III, creatinine appears to be at baseline Continue on IV fluids, repeat blood work in a.m. 7. Chronic debility, history of stroke, chronic right-sided weakness PT and OT to evaluate and treat 8. DVT PPx-patient has supratherapeutic INR Charges/Coding Visit Charges Inpatient E&M: 08465 Init Hosp L3
[2021-12-14 13:48] VITALS: BMI 27.2
[2021-12-14 13:54] VITALS: BP 146/78; PULSE 84; RESP 18; TEMP 36.7; O2SAT 100
--- NOTE | 2021-12-14 14:35 | CASEMGMT ---
Received tc from Arie at [facility] stating pt is active with their agency for SN and OT services.
[2021-12-14] MEDS: Heparin Injection (Vial) 5,000 UNIT/ML VIAL 5000 UNIT SC (14:49)
[2021-12-14] MEDS: 0.9% Normal Saline 1,000 ML 100 ML IV (15:20)
--- NOTE | 2021-12-14 15:42 | CM.ED ---
Social Work Emergency Department Family contact information: Son, Giovanni Fishman (age 30) - [phone] Son, Gee Boyd (age 35) - [phone] (no voicemail set up) Brother Contreras Boyd - [phone] Mother Rebecca Boyd - [phone] Son, Nathan Duran (age 13) - no phone, not legally able to make decisions for patient if needed. 1215: Called patient's brother Contreras and left voicemail to call this sign writer hand back. Called patient's mother Rebecca and also left message to call this sign writer hand back. Updated the patient that messages have been left. Patient's agreed for this sign writer hand to contact 13-year-old son [facility]'s [facility], if needed to ensure that Nathan will be okay. This sign writer hand called the counseling center also, and left message for Krista and psychiatric services to call this sign writer hand back clarifying when the patient's last monthly injection was in current medication list, with this sign writer hand also planning to explore when patient's next appointment is. Plan to discuss possible case management referral for this patient as well. 1330: No return phone call from any family member. Called [facility] children services and spoke to Sandhya Ramon in the intake department, , extension [phone]. Referral given due to concern about patient's hospitalization and emotional status, and the 13-year-old being at home by himself without any family returning this sign writer hand's phone call. Noted during initial assessment with the patient, the patient did indicate that Sang has been providing for his own needs over the last 3 days that patient has been unable to walk. Brief family history reported to children services. John Vivas (extension [phone]) will be the assigned child welfare social worker. Discussed contact to the minors school, to ensure that the minor is aware that he would be going home without the patient there. Called [facility], and spoke with the principal WILLIAN Chiu regarding the patient being stable, but needing to be in the hospital at least overnight. The principal will update Nathan. The patient had informed this sign writer hand previously that Nathan has a thomas to the apartment, which this sign writer hand relayed to the principal. 1400: Received phone call from Sang's principal at [place] he reports that Nathan is doing okay but reports that forgot to house thomas at home this morning. This sign writer hand to follow-up with the patient. Received phone call from John at [facility]. Collaboration regarding ensuring that Ginny is taking care of. John will go to the homes of the family members and attempt to make contact. This sign writer hand provided the addresses for the emergency contact listed. Met with the patient on [facility] unit and explained that nobody has called this sign writer hand back from the family. Informed that [facility] is involved, and working to ensure that Nathan is taking care off while the patient is in the hospital. Patient shook head yes and understanding. This sign writer hand inquired whether the patient has her adult sons phone numbers, and the patient's shook head yes. This sign writer hand asked if it was okay to call the adult sons, to see if the adult sons could help out. Patient stated oh God yes and flopped self back on the back of the bed. Patient looked up the oldest son's phone number and showed the number to this sign writer hand. This sign writer hand asked for the middle son's phone number, and the patient became distracted and could not remember what name she was looking for. This sign writer hand reminded the patient the second child's name, and the patient was able to pull that name up with assist. Note Nathan does not have a working phone. Patient provided this sign writer hand with keys to the apartment, and gave permission for this sign writer hand to make sure that Lbs gets the case. Confirmed with the patient, that the patient does not have any type of power of trial attorney for healthcare. 1500: This sign writer hand collaborated with the school janitor to ensure that the house keys were given to Nathan. This sign writer hand called and left a message for her oldest son Giovanni and then also tried calling the son Gee but there was no voicemail. Spoke with John from [facility] and provided both of the adult sons contact information. John bueno was able to make contact with Nathan's aunt, the to Contreras (patient's brother) and [facility] is working with family to ensure that Nathan is looked after for the time being. This sign writer hand received a phone call from the patient's brother Contreras, who reports was working, and understood that the patient was being admitted for possible UTI. Contreras expressed that the family is aware of the patient's multiple medical issues and emotional health status, and the family has been wondering whether classification case manager might be nice for the patient's to help keep track of medications. Note John from children services indicated plan to head to the hospital to meet with patient to discuss concerns. Handoff given to [facility] social services designee. Plan: Social work to follow and assist as needed. Discharge plan is undetermined at this point. Call pending to the counseling center to determine any mental health appointments the patient may have, as well as plan to discuss possible case management referral. -DIA Nolasco, ENVIRONMENTAL SERVICES PROJECT MANAGER *This note was generated with [employer] dictation software. It may contain incorrect words, spelling, and punctuation that were not noted in review of the chart prior to signing*
[2021-12-14] MEDS: Citalopram 10 MG Tablet PO (18:34)
[2021-12-14] MEDS: amLODIPine 10 MG Tablet PO (18:35)
[2021-12-14 22:34] VITALS: BP 124/74; PULSE 75; RESP 18; TEMP 36.6; O2SAT 96
[2021-12-14] MEDS: OXcarbazepine 300 MG Tablet PO (22:34)
[2021-12-14] MEDS: Mirtazapine 30 MG Tablet PO (22:34)
[2021-12-14] MEDS: Atorvastatin Calcium 10 MG Tablet PO (22:35)
[2021-12-14] MEDS: hydrOXYzine PAM 25 MG Capsule 50 MG PO (22:36)
[2021-12-14] MEDS: traZODone 50 MG Tablet 150 MG PO (22:36)
[2021-12-14] MEDS: Nystatin Powder 15gm Bottle 1 APPLIC TOPICAL (22:39)
[2021-12-15] VITALS (7 sets, daily range): BP systolic 92–113; BP diastolic 52–69; PULSE 71–83; RESP 16–18; TEMP 36.7–36.9; O2SAT 74–97
[2021-12-15] MEDS: 0.9% Normal Saline 1,000 ML 75 ML IV (04:10)
[2021-12-15] MEDS: hydrOXYzine PAM 25 MG Capsule 50 MG PO ×3 (05:40→22:34)
[2021-12-15 05:43] LABS: International Normalized Ratio 3.3; Prothrombin Time (Protime)PT. 32.9 SECONDS (11.7-14.9)
[2021-12-15] MEDS: Nystatin Powder 15gm Bottle 1 APPLIC TOPICAL ×3 (05:47→22:35)
[2021-12-15 05:49] LABS: AST(SGOT) 51 U/L (15-37); Alanine Aminotransfer ALT/SGPT 35 U/L (13-56); Alkaline Phosphatase 78 U/L (45-117); Anion Gap 7 (5-15); BUN 25 mg/dL (7-18); BUN/Creat Ratio 27.8 RATIO (10-20); Calcium,Total 8.7 mg/dL (8.5-10.1); Chloride 110 mmol/L (98-107); EST Glomerular Filtration Rate 69 mL/min (>60); Est Glom Filt Rate - Afr Amer 84 mL/min (>60); Estimated Creatinine Clearance 56.52 ml/min; Glucose 86 mg/dL (74-106); Potassium 4.1 mmol/L (3.5-5.1); Sodium Level 139 mmol/L (136-145)
[2021-12-15] MEDS: Menthol/Lanolin/Calamine/Znox 113 GM Tube 1 APPLIC TOPICAL ×2 (08:45→22:35)
[2021-12-15] MEDS: amLODIPine 10 MG Tablet PO (08:46)
[2021-12-15] MEDS: Citalopram 10 MG Tablet PO (08:46)
[2021-12-15] MEDS: OXcarbazepine 300 MG Tablet PO ×2 (08:47→22:35)
--- NOTE | 2021-12-15 09:05 | PN.HOSP_ITS ---
Subjective Subjective Follow-up on acute metabolic encephalopathy/UTI/supratherapeutic INR: Patient was seen and examined. Patient has some bleeding from the finger. She still complains of burning when urinating. Urine cultures are pending. No other acute events overnight Objective Data Objective Data Vital Signs: Vital Signs Temp Pulse Resp BP Pulse Ox 98.1 F 76 16 110/69 96 12/15/21 05:51 12/15/21 05:51 12/15/21 05:51 12/15/21 05:51 12/15/21 05:51 Oxygen Delivery Method Room Air Weight: 67.6 kg Body Mass Index (BMI) 27.2 Intake & Output: Intake and Output for Last 24 Hours 12/13/21 12/14/21 12/15/21 23:59 23:59 23:59 Intake Total 716.67 / 716.67 633.33 / 633.33 Balance 716.67 / 716.67 633.33 / 633.33 Medical Nutrition Assessment Dietitian: Malnutrition Criteria Met Start: 12/14/21 17:24 Freq: Status: Active Protocol: Document 12/14/21 17:24 RMA (Rec: 12/14/21 17:25 RMA [id number]) Nutrition Malnutrition Evidence of Malnutrition Exists Yes Malnutrition (severe): Chronic Evidenced By Suboptimal Energy Intake ( Severe),Weight Loss (Severe) Clinical Problem Chronic Disease or Condition Related Malnutrition Etiology Severe protein-calorie malnutrition in the context of chronic disease related to inadequate oral intake and likely dysphagia Signs/Symptoms as evidenced by ~19% wt loss in less than 3 months and PO meeting less than 50% estimated nutrition needs Status Active Problem Recommendation Dietitian Recommendations/Changes Given signs/symptoms of malnutrition, will liberalize diet to Regular/no added salt. Consider MATHEMATICS ACADEMIC CHAIR evaluation given hx of dysphagia. Will add 120 ml ensure enlive 4 times per day w/ medpass. Will add Ensure pudding BID w/ lunch and dinner. Adjust ONS as needed once PO established with meals and ensure enlive at medpass. Lab / Micro Data Result Diagrams: 12/14/21 11:01 12/15/21 04:44 Labs: Laboratory Results - last 24 hr 12/14/21 11:01: WBC 8.9, RBC 4.39, Hgb 13.7, Hct 41.1, MCV 93.6, MCH 31.2, MCHC 33.3, RDW Std Deviation 52.3 H, RDW Coeff of Jonathon 15.1 H, Plt Count 299, MPV 10.0, Immature Gran % (Auto) 0.300, Neut % (Auto) 78.0 H, Lymph % (Auto) 13.5 L, [place] % (Auto) 6.5, Eos % (Auto) 1.1, Baso % (Auto) 0.6, Absolute Neuts (auto) 7.0, Absolute Lymphs (auto) 1.21, Nucleated RBC % 0 12/14/21 11:01: PT 47.4 H, INR 5.2 H* 12/14/21 11:01: Sodium 139, Potassium 4.4, Chloride 108 H, Carbon Dioxide 24.0, Anion Gap 7, BUN 25 H, Creatinine 1.22 H, Estim Creat Clear Calc 41.69, Est GFR (MDRD) Af Amer 59 L, Est GFR (MDRD) Non-Af 49 L, BUN/Creatinine Ratio 20.5 H, Glucose 120 H, Calcium 9.4 12/14/21 11:27: Urine Color Yellow, Urine Clarity Sl. Cloudy, Urine pH 5.0, Ur Specific [place] 1.025, Urine Protein 30 H, Urine Glucose (UA) Normal, Urine Ketones 15 H, Urine Occult Blood 10 H, Urine Nitrite Positive H, Urine Bilirubin 1 H, Urine Urobilinogen 4 H, Ur Leukocyte Esterase 100 H, Urine RBC 0-5 SEEN, Urine WBC 10-25 SEEN, Ur Squamous Epith Cells 0-5 SEEN, Calcium Oxalate Crystal RARE, Urine Bacteria 1+, Urine Mucus 0 SEEN 12/15/21 04:44: Sodium 139, Potassium 4.1, Chloride 110 H, Carbon Dioxide 22.0, Anion Gap 7, BUN 25 H, Creatinine 0.90, Estim Creat Clear Calc 56.52, Est GFR (MDRD) Af Amer 84, Est GFR (MDRD) Non-Af 69, BUN/Creatinine Ratio 27.8 H, Glucose 86, Calcium 8.7, Total Bilirubin 0.50, AST 51 H, ALT 35, Alkaline Phosphatase 78, Total Protein 6.0 L, Albumin 3.0 L, Globulin 3.0, Albumin/Globul in Ratio 1.0 12/15/21 04:44: PT 32.9 H, INR 3.3 Radiography Diagnostic Testing: Radiology Impression Brain CT 12/14/21 12:16 IMPRESSION: Stable examination demonstrating multiple areas of encephalomalacia more prominent in the left cerebral hemisphere with evidence of prior aneurysmal clipping in the region of the [place]. Electronically Signed: Miguel Lau MD at 12:53 EDT , Physical Exam Narrative Physical exam: General: Alert, oriented x3, not pale or jaundiced HEENT: Atraumatic Oral: Moist Mucosa Neck: Supple Lungs: Clear to auscultation Cardiovascular: HS I+II, regular, no murmurs Abdomen: Bowel Sounds Present, Soft, Non Tender Extremities: No edema Skin: Multiple bruises over the body Neurological: Right-sided weakness, 3-4/5, shuffling gait Psych/Mental Status: Appropriate Assessment & Plan Assessment/Plan (1) Hypertension: QUALIFIERS: Hypertension type: essential hypertension Qualified Code(s): I10 - Essential (primary) hypertension (2) Rheumatic mitral stenosis with insufficiency: (3) Nicotine dependence: (4) Paroxysmal atrial fibrillation: (5) Acute metabolic encephalopathy: PLAN: 1. Acute metabolic encephalopathy secondary to acute UTI Continue on IV ceftriaxone, Follow-up on urine culture 2. Supratherapeutic INR, improved CT of the head is negative for acute bleed INR is 3.3, continue to hold Coumadin Repeat INR in am 3. Nosebleed secondary to #2, status post silver nitrate stick with adequate hemostasis in the ED, resolved 4. Bipolar disorder, continue on home meds 5. History of mitral valve replacement/paroxysmal atrial fibrillation/hypertension/status post pacemaker INR supratherapeutic Would hold Coumadin, repeat INR in a.m. 6. CKD stage III, creatinine appears to be at baseline Continue on IV fluids, repeat blood work in a.m. 7. Chronic debility, history of stroke, chronic right-sided weakness Aspirin and Plavix on hold for now PT and OT to evaluate and treat 8. DVT PPx-patient has supratherapeutic INR Charges/Coding Visit Charges Inpatient E&M: 53820 Subs Hosp L2
[2021-12-15] MEDS: Ceftriaxone 1 GM/50 ML BAG IV (09:48)
--- NOTE | 2021-12-15 14:40 | CASEMGMT ---
Social Work SW met with pt and introduced self and role of SW. Pt is laying in bed, alert and oriented x3 answering all questions appropriately. SW inquired about pt son Nathan. Pt stating that he is currently staying with her parents and they informed her Nathan can stay for awhile but is uncertain how long that will be. Pt states her brother Contreras Boyd has informed her that he is does not have room in his home to care for her son. Pt feels like son is in a safe environment. SW spoke with pt regarding discharge plan. Pt stating that she feels she will need short term SNF for rehabilitation as she did not do well with therapy. Pt was provided a list of SNF providers including quality and resource use data and consistent with the patient's preferred geographic region, medical needs, and insurance network. Pt [facility] as she has [facility] there previously. Referral to [facility] and awaiting determination of acceptance. Pt does confirm that she thinks her parents will care for son while she is at SNF. plan: [facility], pending ERROL Gill
[2021-12-15] MEDS: traZODone 50 MG Tablet 150 MG PO (22:34)
[2021-12-15] MEDS: Mirtazapine 30 MG Tablet PO (22:35)
[2021-12-15] MEDS: Atorvastatin Calcium 10 MG Tablet PO (22:35)
[2021-12-16] VITALS (11 sets, daily range): BP systolic 94–130; BP diastolic 54–98; PULSE 65–83; RESP 16; TEMP 36.6–36.8; O2SAT 95–97
[2021-12-16 06:23] LABS: Absolute Lymphocyte Count 1.13 X10^3/uL (0.83-4.51); Absolute Neutrophil Count 3.3 X10^3/uL (2.0-7.7); Basophil# 0.04 X10^3/uL; Basophil% 0.8 % (0-1); Eosinophil# 0.24 X10^3/uL; Eosinophils% 4.7 % (0-5); Hemoglobin 11.6 g/dL (12.0-15.0); Lymphocyte # 1.13 X10^3/ul (0.83-4.51); Lymphocyte % 22.3 % (19-41); Mean Corp Hgb Conc 32.2 g/dL (32-36); Mean Corpuscular Volume 96.3 fL (81-99); Monocyte% 5.9 % (0-10); NRBC Flagged by Analyzer 0 % (0-5); Neutrophil # 3.34 X10^3/uL (2.7-7.7); Neutrophil % 65.9 % (47-70); Platelet Count 248 K/mm3 (150-450); RBC Distribution Width SD 53.2 fl (35.1-43.9); Red Blood Count 3.74 M/mm3 (4.2-5.4); White Blood Count 5.1 K/mm3 (4.4-11.0)
[2021-12-16] MEDS: hydrOXYzine PAM 25 MG Capsule 50 MG PO ×3 (06:26→22:24)
[2021-12-16] MEDS: Nystatin Powder 15gm Bottle 1 APPLIC TOPICAL ×3 (06:27→22:24)
[2021-12-16 06:47] LABS: International Normalized Ratio 1.4
[2021-12-16 06:57] LABS: AST(SGOT) 37 U/L (15-37); Alanine Aminotransfer ALT/SGPT 35 U/L (13-56); Alkaline Phosphatase 74 U/L (45-117); Anion Gap 5 (5-15); BUN 20 mg/dL (7-18); BUN/Creat Ratio 23.7 RATIO (10-20); Calcium,Total 8.9 mg/dL (8.5-10.1); Chloride 110 mmol/L (98-107); Creatinine, Serum 0.84 mg/dL (0.55-1.02); EST Glomerular Filtration Rate 75 mL/min (>60); Est Glom Filt Rate - Afr Amer 90 mL/min (>60); Estimated Creatinine Clearance 60.55 ml/min; Glucose 85 mg/dL (74-106); Potassium 4.2 mmol/L (3.5-5.1); Sodium Level 139 mmol/L (136-145)
--- NOTE | 2021-12-16 08:36 | PCM.TXEXTCAR ---
Diet 12/14/21 17:25 Diet: Regular - No Added Salt Food consistency:: Regular Liquid Consistency:: Regular/Thin Type of Dietary Supplement:: Ensure Pudding Diet Comments: ensure pudding BID w/ lunch and dinner Routine Orders/Code Status Routine Lab Work: CBC (within 3 days), BMP (within 3 days) and INR (daily until therapeutic ) Code Status: Full Code Wound(s) left foot: Wound Type: callous Therapies Weight Bearing: Weight bearing as tolerated Physical Therapy: Eval and Treat Occupational Therapy: Eval and Treat Problem/Diagnosis (1) Hypertension: Status: Chronic (2) Rheumatic mitral stenosis with insufficiency: Status: Chronic (3) Nicotine dependence: Status: Chronic (4) Paroxysmal atrial fibrillation: Status: Chronic (5) Acute metabolic encephalopathy: Status: Acute Allergies/Procedures Done in Hospital Allergies amoxicillin [Amoxicillin] Allergy (Verified 12/14/21 10:18) Hives latex Allergy (Verified 12/14/21 10:18) Rash lisinopril Allergy (Verified 12/14/21 10:18) Unknown Penicillins Allergy (Verified 12/14/21 10:18) Hives venom-honey bee [bee venom (honey bee)] Allergy (Verified 12/14/21 10:18) Swelling ciprofloxacin [From Cipro] Adverse Reaction (Verified 12/14/21 10:18) Nausea/Vom/Diarrhea Procedures: None Type of Care/Length of Stay Estimated LOS: Convalescent Care Less Than 30 days Type of Care Needed: Skilled Rehab Potential: Good Prognosis: Good Additional Orders/Day of Discharge Day of Discharge: 12/16/21 Dietary and Speech Recommendations Dietitian Recommendations/Changes: Given signs/symptoms of malnutrition, will liberalize diet to Regular/no added salt. Consider NEUROLOGY MANAGER evaluation given hx of dysphagia. Will add 120 ml ensure enlive 4 times per day w/ medpass. Will add Ensure pudding BID w/ lunch and dinner. Adjust ONS as needed once PO established with meals and ensure enlive at medpass. Discharge Plan Admission Admit Date/Time: 12/14/21 13:03 Primary Reason for Your Visit: acute metabolic encephalopathy/UTI/supratherapeutic INR: Attending Provider: Danae Arellano Primary Care Provider: Louis Dobbs Discharge Orders/Prescriptions Prescriptions: Continued Ingrezza 40 mg capsule 40 mg PO DAILY RF: 0 aspirin [Adult Low Dose Aspirin] 81 mg tablet,delayed release (DR/EC) 81 mg PO DAILY RF: 0 clopidogrel [Plavix] 75 mg tablet 75 mg PO DAILY RF: 0 citalopram [Celexa] 10 mg tablet 10 mg PO DAILY RF: 0 docusate sodium 100 mg Capsule 100 mg PO BID RF: 0 albuterol 90 mcg/actuation Aerosol 180 mcg INHALATION Q6H PRN PRN (Reason: cough wheezing) RF: 0 cholecalciferol (vitamin D3) 125 mcg (5,000 unit) Capsule 125 mcg PO DAILY RF: 0 hydroxyzine pamoate [Vistaril] 50 mg capsule 50 mg PO TID RF: 0 warfarin 2.5 mg tablet 2.5 mg PO SUTUTHSA RF: 0 amlodipine 5 mg tablet 10 mg PO DAILY RF: 0 warfarin 5 mg tablet 5 mg PO MOWEFR RF: 0 rosuvastatin 5 mg tablet 5 mg PO DAILY RF: 0 trazodone 150 mg tablet 150 mg PO QHS RF: 0 oxcarbazepine [Trileptal] 300 mg tablet 300 mg PO BID RF: 0 mirtazapine [Remeron] 30 mg tablet 30 mg PO QHS RF: 0 Aristada 882 mg/3.2 mL suspension,extended rel syring 882 mg IM QMONTH RF: 0 Referrals / Follow Up: Louis Dobbs MD [Primary Care Provider] - Within 1 Week Disposition Disposition (needs filled in before D/C Order can be placed): Home, Self Care
--- NOTE | 2021-12-16 09:00 | CASEMGMT ---
Social Work AURORA called Iraida at [facility] to inquire if they can accept pt. Iraida states she did not receive faxed referral yesterday although AURORA has a fax confirmation. AURORA refaxed referral and asked admissions to watch for fax as pt is ready for discharge today. ERROL Wooten
[2021-12-16] MEDS: Ceftriaxone 1 GM/50 ML BAG IV (10:34)
[2021-12-16] MEDS: Clopidogrel Bisulfate 75 MG Tablet PO (10:37)
[2021-12-16] MEDS: amLODIPine 10 MG Tablet PO (10:37)
[2021-12-16] MEDS: Cholecalciferol (Vit D3) 125 MCG CAPSULE (5,000 UNITS) PO (10:37)
[2021-12-16] MEDS: OXcarbazepine 300 MG Tablet PO ×2 (10:37→22:24)
[2021-12-16] MEDS: Menthol/Lanolin/Calamine/Znox 113 GM Tube 1 APPLIC TOPICAL ×2 (10:44→22:25)
[2021-12-16] MEDS: Aspirin E.C. 81 MG Tablet PO (10:45)
[2021-12-16] MEDS: Citalopram 10 MG Tablet PO (10:45)
--- NOTE | 2021-12-16 12:18 | CASEMGMT ---
TC to [place] to make aware the current plan is for pt to go to [facility]. Arie states that pt was not doing well at home and they have been trying to get the pt to go to a SNF but pt was not agreeable.
--- NOTE | 2021-12-16 12:21 | CASEMGMT ---
Call received from [facility] CM Meghna who states pt has waiver services including: FASHION STYLING INTERN from [facility] as of 12/13/21 for up to 25hrs/week, [employer] meals 5 per week, emergency response button, and transportation as needed. Updated Meghna on plan for SNF at [place]. Koki Aaron RN CM
--- NOTE | 2021-12-16 14:06 | CASEMGMT ---
Addendum entered by Frannie Melendez 12/16/21 14:24: Social Work VM left for John at [facility] updating on pt discharge plan and discussion with pt mother regarding pt son Nathan. ERROL Wooten Original Note: Social Work SW received call from [facility] and they are able to accept pt and precert has been started. SW met with pt and informed and pt is agreeable to d/c plan. With pt permission, phone call placed to pt mother Rebecca Boyd and informed of discharge plan. Rebecca agreed to this and states she and are currently caring for pt son Nathan and they can continue to do so during pt SNF stay. Rebecca states they cannot care for him residential but can short term. Rebecca will be updated when pt is discharged. ERROL Wooten
[2021-12-16] MEDS: Atorvastatin Calcium 10 MG Tablet PO (22:24)
[2021-12-16] MEDS: Mirtazapine 30 MG Tablet PO (22:24)
[2021-12-16] MEDS: traZODone 50 MG Tablet 150 MG PO (22:24)
[2021-12-17] VITALS (11 sets, daily range): BP systolic 110–125; BP diastolic 60–69; PULSE 67–84; RESP 16; TEMP 36.6–36.8; O2SAT 95–97
[2021-12-17] MEDS: hydrOXYzine PAM 25 MG Capsule 50 MG PO ×3 (06:26→22:54)
[2021-12-17] MEDS: Nystatin Powder 15gm Bottle 1 APPLIC TOPICAL ×3 (06:27→22:55)
[2021-12-17 08:24] LABS: Absolute Lymphocyte Count 1.25 X10^3/uL (0.83-4.51); Absolute Neutrophil Count 4.3 X10^3/uL (2.0-7.7); Basophil# 0.04 X10^3/uL; Basophil% 0.6 % (0-1); Eosinophil# 0.25 X10^3/uL; Hemoglobin 11.2 g/dL (12.0-15.0); Lymphocyte # 1.25 X10^3/ul (0.83-4.51); Mean Corp Hgb Conc 33.9 g/dL (32-36); Mean Corpuscular Hgb 31.7 pg (27.0-32.0); Mean Corpuscular Volume 93.5 fL (81-99); Monocyte# 0.39 X10^3/uL; Monocyte% 6.3 % (0-10); NRBC Flagged by Analyzer 0 % (0-5); Neutrophil # 4.28 X10^3/uL (2.7-7.7); Neutrophil % 68.6 % (47-70); Platelet Count 231 K/mm3 (150-450); RBC Distribution Width CV 15.2 % (11.6-14.6); RBC Distribution Width SD 51.8 fl (35.1-43.9); Red Blood Count 3.53 M/mm3 (4.2-5.4); White Blood Count 6.2 K/mm3 (4.4-11.0)
[2021-12-17 08:34] LABS: International Normalized Ratio 1.1; Prothrombin Time (Protime)PT. 13.6 SECONDS (11.7-14.9)
[2021-12-17 08:39] LABS: AST(SGOT) 30 U/L (15-37); Alanine Aminotransfer ALT/SGPT 36 U/L (13-56); Alkaline Phosphatase 68 U/L (45-117); Anion Gap 3 (5-15); BUN 21 mg/dL (7-18); BUN/Creat Ratio 26.7 RATIO (10-20); Calcium,Total 8.7 mg/dL (8.5-10.1); Chloride 109 mmol/L (98-107); Creatinine, Serum 0.79 mg/dL (0.55-1.02); EST Glomerular Filtration Rate 81 mL/min (>60); Est Glom Filt Rate - Afr Amer 98 mL/min (>60); Estimated Creatinine Clearance 64.39 ml/min; Globulin 3.1 g/dL (2.2-4.2); Glucose 96 mg/dL (74-106); Potassium 4.3 mmol/L (3.5-5.1); Protein, Total 6.1 g/dL (6.4-8.2); Sodium Level 139 mmol/L (136-145)
[2021-12-17] MEDS: Menthol/Lanolin/Calamine/Znox 113 GM Tube 1 APPLIC TOPICAL ×2 (09:48→22:55)
[2021-12-17] MEDS: Aspirin E.C. 81 MG Tablet PO (09:49)
[2021-12-17] MEDS: Clopidogrel Bisulfate 75 MG Tablet PO (09:49)
[2021-12-17] MEDS: Citalopram 10 MG Tablet PO (09:49)
[2021-12-17] MEDS: Ceftriaxone 1 GM/50 ML BAG IV (09:49)
[2021-12-17] MEDS: amLODIPine 10 MG Tablet PO (09:49)
[2021-12-17] MEDS: OXcarbazepine 300 MG Tablet PO ×2 (09:50→22:54)
[2021-12-17] MEDS: Cholecalciferol (Vit D3) 125 MCG CAPSULE (5,000 UNITS) PO (09:50)
--- NOTE | 2021-12-17 10:37 | PCM.PN.HOSP ---
Subjective Subjective Late entry note: Patient was seen and examined on 12/16/21 8am: Follow-up on acute metabolic encephalopathy/UTI/supratherapeutic INR: Patient was seen and examined. No acute events overnight. Patient looks more alert and oriented. She denied any new complaints. Objective Data Objective Data Vital Signs: Vital Signs Temp Pulse Resp BP Pulse Ox 97.9 F 72 16 125/69 H 97 12/17/21 08:30 12/17/21 08:37 12/17/21 08:30 12/17/21 08:30 12/17/21 08:30 Oxygen Delivery Method Room Air Weight: 67.6 kg Body Mass Index (BMI) 27.2 Intake & Output: Intake and Output for Last 24 Hours 12/15/21 12/16/21 12/17/21 23:59 23:59 23:59 Intake Total 2263.33 / 2263.33 350 / 350 50 / 50 Balance 2263.33 / 2263.33 350 / 350 50 / 50 Medical Nutrition Assessment Dietitian: Malnutrition Criteria Met Start: 12/14/21 17:24 Freq: Status: Active Protocol: Document 12/14/21 17:24 RMA (Rec: 12/14/21 17:25 RMA [id number]) Nutrition Malnutrition Evidence of Malnutrition Exists Yes Malnutrition (severe): Chronic Evidenced By Suboptimal Energy Intake ( Severe),Weight Loss (Severe) Clinical Problem Chronic Disease or Condition Related Malnutrition Etiology Severe protein-calorie malnutrition in the context of chronic disease related to inadequate oral intake and likely dysphagia Signs/Symptoms as evidenced by ~19% wt loss in less than 3 months and PO meeting less than 50% estimated nutrition needs Status Active Problem Recommendation Dietitian Recommendations/Changes Given signs/symptoms of malnutrition, will liberalize diet to Regular/no added salt. Consider BRAKE DRUM MOLDER evaluation given hx of dysphagia. Will add 120 ml ensure enlive 4 times per day w/ medpass. Will add Ensure pudding BID w/ lunch and dinner. Adjust ONS as needed once PO established with meals and ensure enlive at medpass. Lab / Micro Data Result Diagrams: 12/17/21 08:10 12/17/21 08:10 Labs: Laboratory Results - last 24 hr 12/17/21 08:10: WBC 6.2, RBC 3.53 L, Hgb 11.2 L, Hct 33.0 L, MCV 93.5, MCH 31.7, MCHC 33.9 D, RDW Std Deviation 51.8 H, RDW Coeff of Jonathon 15.2 H, Plt Count 231, MPV 10.0, Immature Gran % (Auto) 0.500, Neut % (Auto) 68.6, Lymph % (Auto) 20.0, [place] % (Auto) 6.3, Eos % (Auto) 4.0, Baso % (Auto) 0.6, Absolute Neuts (auto) 4.3, Absolute Lymphs (auto) 1.25, Nucleated RBC % 0 12/17/21 08:10: Sodium 139, Potassium 4.3, Chloride 109 H, Carbon Dioxide 27.0, Anion Gap 3 L, BUN 21 H, Creatinine 0.79, Estim Creat Clear Calc 64.39, Est GFR (MDRD) Af Amer 98, Est GFR (MDRD) Non-Af 81, BUN/Creatinine Ratio 26.7 H, Glucose 96, Calcium 8.7, Total Bilirubin 0.40, AST 30, ALT 36, Alkaline Phosphatase 68, Total Protein 6.1 L, Albumin 3.0 L, Globulin 3.1, Albumin/Globulin Ratio 1.0 12/17/21 08:10: PT 13.6, INR 1.1 Micro: Microbiology 12/14/21 11:27 Urine Catheter - Catheter Urine Culture - Final Escherichia coli Physical Exam Narrative Physical exam: General: Alert, oriented x3, not pale or jaundiced HEENT: Atraumatic Oral: Moist Mucosa Neck: Supple Lungs: Clear to auscultation Cardiovascular: HS I+II, regular, no murmurs Abdomen: Bowel Sounds Present, Soft, Non Tender Extremities: No edema Skin: Multiple bruises over the body Neurological: Right-sided weakness, 3-4/5, shuffling gait Psych/Mental Status: Appropriate Assessment & Plan Assessment/Plan (1) Hypertension: QUALIFIERS: Hypertension type: essential hypertension Qualified Code(s): I10 - Essential (primary) hypertension (2) Rheumatic mitral stenosis with insufficiency: (3) Nicotine dependence: (4) Paroxysmal atrial fibrillation: (5) Acute metabolic encephalopathy: PLAN: 1. Acute metabolic encephalopathy secondary to acute E. coli UTI, improved Will continue to monitor 2. Acute E. coli UTI, urine cultures pansensitive, Will switch from IV ceftriaxone to cefdinir to complete 7 days 3. Supratherapeutic INR, improved CT of the head is negative for acute bleed INR is 1.4, will resume Coumadin Repeat INR in am 3. Nosebleed secondary to #2, status post silver nitrate stick with adequate hemostasis in the ED, resolved 4. Bipolar disorder, continue on home meds 5. History of mitral valve replacement/paroxysmal atrial fibrillation/hypertension/status post pacemaker Will resume coumadin, repeat INR in a.m. 6. CKD stage III, creatinine appears to be at baseline Continue on IV fluids, repeat blood work in a.m. 7. Chronic debility, history of stroke, chronic right-sided weakness Resume aspirin and Plavix PT and OT to evaluate and treat 8. DVT PPx- patient admitted with supratherapeutic INR Charges/Coding Visit Charges Inpatient E&M: 47867 Subs Hosp L2
--- NOTE | 2021-12-17 10:38 | PCM.PN.HOSP ---
Subjective Subjective Follow-up on acute metabolic encephalopathy/UTI/supratherapeutic INR: Patient was seen and examined. No acute events. Waiting on discharge planning. Denies any new complaints. Objective Data Objective Data Vital Signs: Vital Signs Temp Pulse Resp BP Pulse Ox 97.9 F 72 16 125/69 H 97 12/17/21 08:30 12/17/21 08:37 12/17/21 08:30 12/17/21 08:30 12/17/21 08:30 Oxygen Delivery Method Room Air Weight: 67.6 kg Body Mass Index (BMI) 27.2 Intake & Output: Intake and Output for Last 24 Hours 12/15/21 12/16/21 12/17/21 23:59 23:59 23:59 Intake Total 2263.33 / 2263.33 350 / 350 50 / 50 Balance 2263.33 / 2263.33 350 / 350 50 / 50 Medical Nutrition Assessment Dietitian: Malnutrition Criteria Met Start: 12/14/21 17:24 Freq: Status: Active Protocol: Document 12/14/21 17:24 RMA (Rec: 12/14/21 17:25 RMA [id number]) Nutrition Malnutrition Evidence of Malnutrition Exists Yes Malnutrition (severe): Chronic Evidenced By Suboptimal Energy Intake ( Severe),Weight Loss (Severe) Clinical Problem Chronic Disease or Condition Related Malnutrition Etiology Severe protein-calorie malnutrition in the context of chronic disease related to inadequate oral intake and likely dysphagia Signs/Symptoms as evidenced by ~19% wt loss in less than 3 months and PO meeting less than 50% estimated nutrition needs Status Active Problem Recommendation Dietitian Recommendations/Changes Given signs/symptoms of malnutrition, will liberalize diet to Regular/no added salt. Consider KINDERGARTEN TEACHER ASSISTANT evaluation given hx of dysphagia. Will add 120 ml ensure enlive 4 times per day w/ medpass. Will add Ensure pudding BID w/ lunch and dinner. Adjust ONS as needed once PO established with meals and ensure enlive at medpass. Lab / Micro Data Result Diagrams: 12/17/21 08:10 12/17/21 08:10 Labs: Laboratory Results - last 24 hr 12/17/21 08:10: WBC 6.2, RBC 3.53 L, Hgb 11.2 L, Hct 33.0 L, MCV 93.5, MCH 31.7, MCHC 33.9 D, RDW Std Deviation 51.8 H, RDW Coeff of Jonathon 15.2 H, Plt Count 231, MPV 10.0, Immature Gran % (Auto) 0.500, Neut % (Auto) 68.6, Lymph % (Auto) 20.0, [place] % (Auto) 6.3, Eos % (Auto) 4.0, Baso % (Auto) 0.6, Absolute Neuts (auto) 4.3, Absolute Lymphs (auto) 1.25, Nucleated RBC % 0 12/17/21 08:10: Sodium 139, Potassium 4.3, Chloride 109 H, Carbon Dioxide 27.0, Anion Gap 3 L, BUN 21 H, Creatinine 0.79, Estim Creat Clear Calc 64.39, Est GFR (MDRD) Af Amer 98, Est GFR (MDRD) Non-Af 81, BUN/Creatinine Ratio 26.7 H, Glucose 96, Calcium 8.7, Total Bilirubin 0.40, AST 30, ALT 36, Alkaline Phosphatase 68, Total Protein 6.1 L, Albumin 3.0 L, Globulin 3.1, Albumin/Globulin Ratio 1.0 12/17/21 08:10: PT 13.6, INR 1.1 Micro: Microbiology 12/14/21 11:27 Urine Catheter - Catheter Urine Culture - Final Escherichia coli Physical Exam Narrative Physical exam: General: Alert, oriented x3, not pale or jaundiced HEENT: Atraumatic Oral: Moist Mucosa Neck: Supple Lungs: Clear to auscultation Cardiovascular: HS I+II, regular, no murmurs Abdomen: Bowel Sounds Present, Soft, Non Tender Extremities: No edema Skin: Multiple bruises over the body Neurological: Right-sided weakness, 3-4/5, shuffling gait Psych/Mental Status: Appropriate Assessment & Plan Assessment/Plan (1) Hypertension: QUALIFIERS: Hypertension type: essential hypertension Qualified Code(s): I10 - Essential (primary) hypertension (2) Rheumatic mitral stenosis with insufficiency: (3) Nicotine dependence: (4) Paroxysmal atrial fibrillation: (5) Acute metabolic encephalopathy: PLAN: 1. Acute metabolic encephalopathy secondary to acute E. coli UTI, improved Will continue to monitor 2. Acute E. coli UTI, urine cultures pansensitive, Continue on cefdinir to complete 7 days 3. Supratherapeutic INR, improved CT of the head is negative for acute bleed INR is 1.1, continue on coumadin Repeat INR in am 3. Nosebleed secondary to #2, status post silver nitrate stick with adequate hemostasis in the ED, resolved 4. Bipolar disorder, continue on home meds 5. History of mitral valve replacement/paroxysmal atrial fibrillation/hypertension/status post pacemaker Will resume coumadin, repeat INR in a.m. 6. CKD stage III, creatinine appears to be at baseline Continue on IV fluids, repeat blood work in a.m. 7. Severe protein-calorie malnutrition, nutrition consulted, continue on supplements 8. Chronic debility, history of stroke, chronic right-sided weakness Resume aspirin and Plavix PT and OT to evaluate and treat 9. DVT PPx- Lovenox SC Charges/Coding Visit Charges Inpatient E&M: 20079 Subs Hosp L2
--- NOTE | 2021-12-17 16:09 | CASEMGMT ---
Social Work SW spoke to Iraida at [facility] to check on precert. Iraida states that they have not started precert yet. AURORA informed Iraida that this SW requested precert be started yesterday at 1400 when pt was accept by Alysa by Iraida. Iraida apologizes for mistake and states she will start precert at this time. Pt updated. Plan: [facility]lysa Sorensen, pending precert ERROL Wooten
[2021-12-17] MEDS: Atorvastatin Calcium 10 MG Tablet PO (22:54)
[2021-12-17] MEDS: traZODone 50 MG Tablet 150 MG PO (22:54)
[2021-12-17] MEDS: Mirtazapine 30 MG Tablet PO (22:54)
[2021-12-17] MEDS: Enoxaparin 60 MG/0.6 ML Syringe SC (22:55)
[2021-12-18] VITALS (7 sets, daily range): BP systolic 91–118; BP diastolic 54–74; PULSE 52–84; RESP 16–18; TEMP 36.9–37.4; O2SAT 94–98
[2021-12-18] MEDS: Nystatin Powder 15gm Bottle 1 APPLIC TOPICAL ×3 (06:05→20:13)
[2021-12-18] MEDS: hydrOXYzine PAM 25 MG Capsule 50 MG PO ×3 (06:06→20:13)
[2021-12-18 06:35] LABS: Absolute Lymphocyte Count 1.47 X10^3/uL (0.83-4.51); Absolute Neutrophil Count 3.1 X10^3/uL (2.0-7.7); Basophil# 0.04 X10^3/uL; Basophil% 0.8 % (0-1); Eosinophil# 0.24 X10^3/uL; Eosinophils% 4.5 % (0-5); Hematocrit 35.8 % (37-47); Hemoglobin 11.5 g/dL (12.0-15.0); Lymphocyte # 1.47 X10^3/ul (0.83-4.51); Lymphocyte % 27.7 % (19-41); Mean Corp Hgb Conc 32.1 g/dL (32-36); Mean Corpuscular Hgb 31.1 pg (27.0-32.0); Mean Corpuscular Volume 96.8 fL (81-99); Mean Platelet Vol. 10.3 fl (6.2-12.0); Monocyte# 0.42 X10^3/uL; Monocyte% 7.9 % (0-10); NRBC Flagged by Analyzer 0 % (0-5); Neutrophil # 3.12 X10^3/uL (2.7-7.7); Neutrophil % 58.9 % (47-70); Platelet Count 241 K/mm3 (150-450); RBC Distribution Width CV 15.3 % (11.6-14.6); RBC Distribution Width SD 54.3 fl (35.1-43.9); White Blood Count 5.3 K/mm3 (4.4-11.0)
[2021-12-18 06:41] LABS: International Normalized Ratio 1.2; Prothrombin Time (Protime)PT. 14.9 SECONDS (11.7-14.9)
[2021-12-18 06:59] LABS: AST(SGOT) 25 U/L (15-37); Alanine Aminotransfer ALT/SGPT 34 U/L (13-56); Alkaline Phosphatase 65 U/L (45-117); Anion Gap 5 (5-15); BUN 18 mg/dL (7-18); BUN/Creat Ratio 21.6 RATIO (10-20); Calcium,Total 9.1 mg/dL (8.5-10.1); Chloride 110 mmol/L (98-107); Creatinine, Serum 0.83 mg/dL (0.55-1.02); EST Glomerular Filtration Rate 76 mL/min (>60); Est Glom Filt Rate - Afr Amer 92 mL/min (>60); Estimated Creatinine Clearance 61.28 ml/min; Glucose 92 mg/dL (74-106); Potassium 4.4 mmol/L (3.5-5.1); Sodium Level 140 mmol/L (136-145)
--- NOTE | 2021-12-18 08:56 | PN.HOSP_ITS ---
Subjective Subjective Follow-up on acute metabolic encephalopathy/UTI/supratherapeutic INR: Patient seen and examined. No new complaints. [facility]waiting [facility] planning to [facility] facility Objective Data Objective Data Vital Signs: Vital Signs Temp Pulse Resp BP Pulse Ox 98.7 F 84 18 105/70 97 12/18/21 08:11 12/18/21 08:11 12/18/21 08:11 12/18/21 08:11 12/18/21 08:11 Oxygen Delivery Method Room Air Weight: 67.6 kg Body Mass Index (BMI) 27.2 Intake & Output: Intake and Output for Last 24 Hours 12/16/21 12/17/21 12/18/21 23:59 23:59 23:59 Intake Total 350 / 350 730 / 730 Balance 350 / 350 730 / 730 Medical Nutrition Assessment Dietitian: Malnutrition Criteria Met Start: 12/14/21 17:24 Freq: Status: Active Protocol: Document 12/17/21 12:30 JERROD (Rec: 12/17/21 12:30 [facility] [id number]) Nutrition Malnutrition Evidence of Malnutrition Exists Yes Malnutrition (severe): Chronic Evidenced By Suboptimal Energy Intake ( Severe),Weight Loss (Severe) Clinical Problem Chronic Disease or Condition Related Malnutrition Etiology Severe protein-calorie malnutrition in the context of chronic disease related to inadequate oral intake and likely dysphagia Signs/Symptoms as evidenced by ~19% wt loss in less than 3 months and PO meeting less than 50% estimated nutrition needs Status Active Problem Recommendation Dietitian Recommendations/Changes Given signs/symptoms of malnutrition, will continue liberalized diet of Regular/no added salt. Consider NURSE MIDWIFE/CLINICAL INSTRUCTOR evaluation given hx of dysphagia. Will continue 120 ml ensure enlive 4 times per day w/ medpass. Will continue Ensure pudding BID w/ lunch and dinner. Lab / Micro Data Result Diagrams: 12/18/21 06:01 12/18/21 06:01 Labs: Laboratory Results - last 24 hr 12/18/21 06:01: WBC 5.3, RBC 3.70 L, Hgb 11.5 L, Hct 35.8 L, MCV 96.8, MCH 31.1, MCHC 32.1 D, RDW Std Deviation 54.3 H, RDW Coeff of Jonathon 15.3 H, Plt Count 241, MPV 10.3, Immature Gran % (Auto) 0.200, Neut % (Auto) 58.9, Lymph % (Auto) 27.7, [place] % (Auto) 7.9, Eos % (Auto) 4.5, Baso % (Auto) 0.8, Absolute Neuts (auto) 3.1, Absolute Lymphs (auto) 1.47, Nucleated RBC % 0 12/18/21 06:01: PT 14.9, INR 1.2 12/18/21 06:01: Sodium 140, Potassium 4.4, Chloride 110 H, Carbon Dioxide 25.0, Anion Gap 5, BUN 18, Creatinine 0.83, Estim Creat Clear Calc 61.28, Est GFR (MDRD) Af Amer 92, Est GFR (MDRD) Non-Af 76, BUN/Creatinine Ratio 21.6 H, Glucose 92, Calcium 9.1, Total Bilirubin 0.40, AST 25, ALT 34, Alkaline Phosphatase 65, Total Protein 6.0 L, Albumin 3.0 L, Globulin 3.0, Albumin/Globulin Ratio 1.0 Micro: Microbiology 12/14/21 11:27 Urine Catheter - Catheter Urine Culture - Final Escherichia coli Physical Exam Narrative Physical exam: General: Alert, oriented x3, not pale or jaundiced HEENT: Atraumatic Oral: Moist Mucosa Neck: Supple Lungs: Clear to auscultation Cardiovascular: HS I+II, regular, no murmurs Abdomen: Bowel Sounds Present, Soft, Non Tender Extremities: No edema Skin: Multiple bruises over the body Neurological: Right-sided weakness, 3-4/5, shuffling gait Psych/Mental Status: Appropriate Assessment & Plan Assessment/Plan (1) Hypertension: QUALIFIERS: Hypertension type: essential hypertension Qualified Code(s): I10 - Essential (primary) hypertension (2) Rheumatic mitral stenosis with insufficiency: (3) Nicotine dependence: QUALIFIERS: Nicotine product type: cigarettes Substance use status: uncomplicated Qualified Code(s): F17.210 - Nicotine dependence, cigarettes, uncomplicated (4) Paroxysmal atrial fibrillation: (5) Acute metabolic encephalopathy: PLAN: 1. Acute metabolic encephalopathy secondary to acute E. coli UTI, improved Will continue to monitor 2. Acute E. coli UTI, urine cultures pansensitive, Continue on cefdinir to complete 7 days (day 5 ) 3. Supratherapeutic INR, improved CT of the head is negative for acute bleed INR is 1.2, continue on coumadin Repeat INR in am 3. Nosebleed secondary to #2, status post silver nitrate stick with adequate hemostasis in the ED, resolved 4. Bipolar disorder, continue on home meds 5. History of mitral valve replacement/paroxysmal atrial fibrillation/hypertension/status post pacemaker Continue on coumadin, repeat INR in a.m. 6. CKD stage III, creatinine appears to be at baseline Continue on IV fluids, repeat blood work in a.m. 7. Severe protein-calorie malnutrition, nutrition consulted, continue on supplements 8. Chronic debility, history of stroke, chronic right-sided weakness Continue on aspirin and Plavix PT and OT to evaluate and treat 9. DVT PPx- Lovenox SC Charges/Coding Visit Charges Inpatient E&M: 32566 Subs Hosp L2
[2021-12-18] MEDS: OXcarbazepine 300 MG Tablet PO ×2 (09:49→20:15)
[2021-12-18] MEDS: Menthol/Lanolin/Calamine/Znox 113 GM Tube 1 APPLIC TOPICAL ×2 (09:50→20:10)
[2021-12-18] MEDS: Cefdinir 300 MG Capsule PO ×2 (09:51→20:14)
[2021-12-18] MEDS: Citalopram 10 MG Tablet PO (09:51)
[2021-12-18] MEDS: amLODIPine 10 MG Tablet PO (09:52)
[2021-12-18] MEDS: Clopidogrel Bisulfate 75 MG Tablet PO (09:52)
[2021-12-18] MEDS: Enoxaparin 60 MG/0.6 ML Syringe SC ×2 (09:52→20:12)
[2021-12-18] MEDS: Aspirin E.C. 81 MG Tablet PO (09:52)
[2021-12-18] MEDS: Cholecalciferol (Vit D3) 125 MCG CAPSULE (5,000 UNITS) PO (09:53)
[2021-12-18] MEDS: Acetaminophen 325 MG Tablet 650 MG PO (11:23)
--- NOTE | 2021-12-18 12:53 | CASEMGMT ---
Addendum entered by Fela Crocker 12/18/21 13:59: AURORA spoke to Camrny at [facility]. Original Note: AURORA Note SW called [facility] as SW was advised that patient is medically ready for discharge. AURORA called [facility] and spoke to staff. Staff advised no administrators were available over the weekend and to call back on Monday to speak to staff regarding precertification. Plan: Pending Precertification at [facility]. Needs to stay till precertification is obtained. Fela DOTY
[2021-12-18] MEDS: Atorvastatin Calcium 10 MG Tablet PO (20:14)
[2021-12-18] MEDS: traZODone 50 MG Tablet 150 MG PO (21:59)
[2021-12-18] MEDS: Mirtazapine 30 MG Tablet PO ×2 (21:59→22:11)
[2021-12-19 02:00] VITALS: PULSE 72
[2021-12-19 02:25] VITALS: BP 96/54; PULSE 65; RESP 18; TEMP 36.6; O2SAT 97
[2021-12-19] MEDS: Nystatin Powder 15gm Bottle 1 APPLIC TOPICAL ×3 (06:09→20:02)
[2021-12-19] MEDS: hydrOXYzine PAM 25 MG Capsule 50 MG PO ×3 (06:09→21:05)
[2021-12-19 07:54] VITALS: BP 114/60; PULSE 59; RESP 18; TEMP 36.8; O2SAT 100
[2021-12-19 08:47] LABS: International Normalized Ratio 1.2; Prothrombin Time (Protime)PT. 14.8 SECONDS (11.7-14.9)
[2021-12-19] MEDS: Menthol/Lanolin/Calamine/Znox 113 GM Tube 1 APPLIC TOPICAL ×2 (09:53→20:02)
[2021-12-19] MEDS: Citalopram 10 MG Tablet PO (09:54)
[2021-12-19] MEDS: Aspirin E.C. 81 MG Tablet PO (09:55)
[2021-12-19] MEDS: Cefdinir 300 MG Capsule PO ×2 (09:56→21:06)
[2021-12-19] MEDS: Enoxaparin 60 MG/0.6 ML Syringe SC (09:56)
[2021-12-19] MEDS: amLODIPine 10 MG Tablet PO (09:56)
[2021-12-19] MEDS: Cholecalciferol (Vit D3) 125 MCG CAPSULE (5,000 UNITS) PO (09:57)
[2021-12-19] MEDS: OXcarbazepine 300 MG Tablet PO ×2 (09:57→21:22)
[2021-12-19] MEDS: Clopidogrel Bisulfate 75 MG Tablet PO (09:57)
--- NOTE | 2021-12-19 10:09 | PCM.PN.HOSP ---
Subjective Subjective Follow-up on acute metabolic encephalopathy/UTI/supratherapeutic INR: Patient was seen and examined. No acute events overnight. She stated that she was feeling restless. She denied any new complaints. Still waiting on discharge planning, hopefully on Monday. Objective Data Objective Data Vital Signs: Vital Signs Temp Pulse Resp BP Pulse Ox 98.3 F 59 L 18 114/60 100 12/19/21 07:54 12/19/21 07:54 12/19/21 07:54 12/19/21 07:54 12/19/21 07:54 Oxygen Delivery Method Room Air Weight: 67.6 kg Body Mass Index (BMI) 27.2 Intake & Output: Intake and Output for Last 24 Hours 12/17/21 12/18/21 12/19/21 23:59 23:59 23:59 Intake Total 730 / 730 120 / 120 120 / 120 Balance 730 / 730 120 / 120 120 / 120 Medical Nutrition Assessment Dietitian: Malnutrition Criteria Met Start: 12/14/21 17:24 Freq: Status: Active Protocol: Document 12/17/21 12:30 [facility] (Rec: 12/17/21 12:30 [facility] [id number]) Nutrition Malnutrition Evidence of Malnutrition Exists Yes Malnutrition (severe): Chronic Evidenced By Suboptimal Energy Intake ( Severe),Weight Loss (Severe) Clinical Problem Chronic Disease or Condition Related Malnutrition Etiology Severe protein-calorie malnutrition in the context of chronic disease related to inadequate oral intake and likely dysphagia Signs/Symptoms as evidenced by ~19% wt loss in less than 3 months and PO meeting less than 50% estimated nutrition needs Status Active Problem Recommendation Dietitian Recommendations/Changes Given signs/symptoms of malnutrition, will continue liberalized diet of Regular/no added salt. Consider TITLE VEHICLE SERVICE ATTENDANT evaluation given hx of dysphagia. Will continue 120 ml ensure enlive 4 times per day w/ medpass. Will continue Ensure pudding BID w/ lunch and dinner. Lab / Micro Data Result Diagrams: 12/18/21 06:01 12/18/21 06:01 Labs: Laboratory Results - last 24 hr 12/19/21 06:00: PT Cancelled, INR Cancelled 12/19/21 07:49: PT 14.8, INR 1.2 Micro: Microbiology 12/14/21 11:27 Urine Catheter - Catheter Urine Culture - Final Escherichia coli Physical Exam Narrative Physical exam: General: Alert, oriented x3, not pale or jaundiced HEENT: Atraumatic Oral: Moist Mucosa Neck: Supple Lungs: Clear to auscultation Cardiovascular: HS I+II, regular, 3/6 holosystolic murmur Abdomen: Bowel Sounds Present, Soft, Non Tender Extremities: No edema Skin: Multiple bruises over the body Neurological: Right-sided weakness, 3-4/5, shuffling gait Psych/Mental Status: Appropriate Assessment & Plan Assessment/Plan (1) Hypertension: QUALIFIERS: Hypertension type: essential hypertension Qualified Code(s): I10 - Essential (primary) hypertension (2) Rheumatic mitral stenosis with insufficiency: (3) Nicotine dependence: QUALIFIERS: Nicotine product type: cigarettes Substance use status: uncomplicated Qualified Code(s): F17.210 - Nicotine dependence, cigarettes, uncomplicated (4) Paroxysmal atrial fibrillation: (5) Acute metabolic encephalopathy: PLAN: Summary: 56-year-old female with past medical history of bipolar disorder, history of multiple strokes in 2008, who was admitted with confusion and found to have acute UTI and supratherapeutic INR. 1. Acute metabolic encephalopathy secondary to acute E. coli UTI, appears resolved, at baseline 2. Acute E. coli UTI, urine cultures pansensitive, Continue on cefdinir to complete 7 days of antibiotics (day 6 ) 3. Supratherapeutic INR, improved CT of the head is negative for acute bleed INR is 1.2, continue on coumadin, will give Coumadin 5mg Po x 1 today Repeat INR in am 4. Nosebleed secondary to #2, resolved status post silver nitrate stick with adequate hemostasis in the ED 5. Bipolar disorder, continue on home meds 6. History of mitral valve replacement/paroxysmal atrial fibrillation/hypertension/status post pacemaker Continue on coumadin, repeat INR in a.m. 7. CKD stage III, creatinine appears to be at baseline Continue on IV fluids, repeat blood work in a.m. 8. Severe protein-calorie malnutrition, nutrition consulted, continue on supplements 9. Chronic debility, history of stroke, chronic right-sided weakness Continue on aspirin and Plavix PT and OT to evaluate and treat 10. DVT PPx- Lovenox SC 11. Disposition: Awaiting DC to SNF Charges/Coding Visit Charges Inpatient E&M: 95518 Subs Hosp L2
[2021-12-19 20:38] VITALS: BP 104/81; PULSE 88; RESP 18; TEMP 36.8; O2SAT 98
[2021-12-19] MEDS: traZODone 50 MG Tablet 150 MG PO (21:06)
[2021-12-19] MEDS: Atorvastatin Calcium 10 MG Tablet PO (21:06)
[2021-12-20 02:33] VITALS: BP 113/74; PULSE 76; RESP 17; TEMP 36.6; O2SAT 99
[2021-12-20] MEDS: Nystatin Powder 15gm Bottle 1 APPLIC TOPICAL ×2 (05:34→13:37)
[2021-12-20] MEDS: hydrOXYzine PAM 25 MG Capsule 50 MG PO ×2 (05:34→13:37)
[2021-12-20 05:51] LABS: Absolute Lymphocyte Count 1.67 X10^3/uL (0.83-4.51); Absolute Neutrophil Count 2.7 X10^3/uL (2.0-7.7); Basophil# 0.05 X10^3/uL; Eosinophil# 0.26 X10^3/uL; Eosinophils% 5.1 % (0-5); Hematocrit 33.4 % (37-47); Hemoglobin 10.7 g/dL (12.0-15.0); Lymphocyte # 1.67 X10^3/ul (0.83-4.51); Lymphocyte % 32.5 % (19-41); Mean Corpuscular Hgb 31.2 pg (27.0-32.0); Mean Corpuscular Volume 97.4 fL (81-99); Mean Platelet Vol. 10.3 fl (6.2-12.0); Monocyte# 0.44 X10^3/uL; Monocyte% 8.6 % (0-10); NRBC Flagged by Analyzer 0 % (0-5); Neutrophil # 2.71 X10^3/uL (2.7-7.7); Neutrophil % 52.6 % (47-70); Platelet Count 242 K/mm3 (150-450); RBC Distribution Width CV 15.5 % (11.6-14.6); RBC Distribution Width SD 55.8 fl (35.1-43.9); Red Blood Count 3.43 M/mm3 (4.2-5.4); White Blood Count 5.1 K/mm3 (4.4-11.0)
[2021-12-20 06:31] LABS: AST(SGOT) 25 U/L (15-37); Alanine Aminotransfer ALT/SGPT 40 U/L (13-56); Albumin, Serum 2.9 g/dL (3.2-5.0); Alkaline Phosphatase 60 U/L (45-117); Anion Gap 4 (5-15); BUN 27 mg/dL (7-18); BUN/Creat Ratio 32.5 RATIO (10-20); Calcium,Total 8.6 mg/dL (8.5-10.1); Chloride 110 mmol/L (98-107); Creatinine, Serum 0.83 mg/dL (0.55-1.02); EST Glomerular Filtration Rate 76 mL/min (>60); Est Glom Filt Rate - Afr Amer 92 mL/min (>60); Estimated Creatinine Clearance 61.28 ml/min; Globulin 2.9 g/dL (2.2-4.2); Glucose 91 mg/dL (74-106); Potassium 4.5 mmol/L (3.5-5.1); Protein, Total 5.8 g/dL (6.4-8.2); Sodium Level 139 mmol/L (136-145)
[2021-12-20 06:39] LABS: International Normalized Ratio 1.1
[2021-12-20 07:40] VITALS: O2SAT 97
--- NOTE | 2021-12-20 07:46 | PN.HOSP_ITS ---
Objective Data Objective Data Vital Signs: Vital Signs Temp Pulse Resp BP Pulse Ox 97.9 F 76 17 113/74 99 12/20/21 02:33 12/20/21 02:33 12/20/21 02:33 12/20/21 02:33 12/20/21 02:33 Oxygen Delivery Method Room Air Weight: 78.5 kg Body Mass Index (BMI) 27.2 Intake & Output: Intake and Output for Last 24 Hours 12/18/21 12/19/21 12/20/21 23:59 23:59 23:59 Intake Total 120 / 120 440 / 440 60 / 60 Balance 120 / 120 440 / 440 60 / 60 Medical Nutrition Assessment Dietitian: Malnutrition Criteria Met Start: 12/14/21 17:24 Freq: Status: Active Protocol: Document 12/17/21 12:30 [facility] (Rec: 12/17/21 12:30 [facility] [id number]) Nutrition Malnutrition Evidence of Malnutrition Exists Yes Malnutrition (severe): Chronic Evidenced By Suboptimal Energy Intake ( Severe),Weight Loss (Severe) Clinical Problem Chronic Disease or Condition Related Malnutrition Etiology Severe protein-calorie malnutrition in the context of chronic disease related to inadequate oral intake and likely dysphagia Signs/Symptoms as evidenced by ~19% wt loss in less than 3 months and PO meeting less than 50% estimated nutrition needs Status Active Problem Recommendation Dietitian Recommendations/Changes Given signs/symptoms of malnutrition, will continue liberalized diet of Regular/no added salt. Consider COPIER TECHNICIAN evaluation given hx of dysphagia. Will continue 120 ml ensure enlive 4 times per day w/ medpass. Will continue Ensure pudding BID w/ lunch and dinner. Lab / Micro Data Result Diagrams: 12/20/21 05:07 12/20/21 05:07 Labs: Laboratory Results - last 24 hr 12/19/21 07:49: PT 14.8, INR 1.2 12/20/21 05:07: PT 14.0, INR 1.1 12/20/21 05:07: WBC 5.1, RBC 3.43 L, Hgb 10.7 L, Hct 33.4 L, MCV 97.4, MCH 31.2, MCHC 32.0, RDW Std Deviation 55.8 H, RDW Coeff of Jonathon 15.5 H, Plt Count 242, MPV 10.3, Immature Gran % (Auto) 0.200, Neut % (Auto) 52.6, Lymph % (Auto) 32.5, [place] % (Auto) 8.6, Eos % (Auto) 5.1 H, Baso % (Auto) 1.0, Absolute Neuts (auto) 2.7, Absolute Lymphs (auto) 1.67, Nucleated RBC % 0 12/20/21 05:07: Sodium 139, Potassium 4.5, Chloride 110 H, Carbon Dioxide 25.0, Anion Gap 4 L, BUN 27 H, Creatinine 0.83, Estim Creat Clear Calc 61.28, Est GFR (MDRD) Af Amer 92, Est GFR (MDRD) Non-Af 76, BUN/Creatinine Ratio 32.5 H, Glu cose 91, Calcium 8.6, Total Bilirubin 0.40, AST 25, ALT 40, Alkaline Phosphatase 60, Total Protein 5.8 L, Albumin 2.9 L, Globulin 2.9, Albumin/Globulin Ratio 1.0 Micro: Microbiology 12/14/21 11:27 Urine Catheter - Catheter Urine Culture - Final Escherichia coli Physical Exam Narrative GENERAL: cooperative HEENT: Atraumatic; EYES; Anicteric, Normal Conjunctiva NECK; supple, normal thyroid, RESPIRATORY: Diminished to auscultation CARDIOVASCULAR: Regular S1 S2, GI: soft, normoactive bowel sounds, : No Renal angle tenderness; EXTREMITIES: No edema, no clubbing, MUSCULOSKELETAL: no muscle wasting NEURO: Awake; no lateralizing signs. SKIN: No Rash PSYCH; Flat affect Assessment & Plan Assessment/Plan (1) Hypertension: QUALIFIERS: Hypertension type: essential hypertension Qualified Code(s): I10 - Essential (primary) hypertension (2) Rheumatic mitral stenosis with insufficiency: (3) Nicotine dependence: QUALIFIERS: Nicotine product type: cigarettes Substance use status: uncomplicated Qualified Code(s): F17.210 - Nicotine dependence, cigarettes, uncomplicated (4) Paroxysmal atrial fibrillation: (5) Acute metabolic encephalopathy: PLAN: Summary: 56-year-old female with past medical history of bipolar disorder, history of multiple strokes in 2008, who was admitted with confusion and found to have acute UTI and supratherapeutic INR. 1. Acute metabolic encephalopathy ? Secondary to acute cystitis with E. coli treated appropriately patient encephalopathy resolved 2. Acute cystitis with E. coli ? Patient was treated with cefdinir 3. Paroxysmal A. fib ? Rate controlled patient is on systemic anticoagulation with Coumadin patient presented with elevated INR and epistaxis. Patient coagulopathy reversed INR 1.1 as of today Coumadin resumed 4. Epistaxis ? Secondary to coagulopathy resolved 5. Valvular heart disease ? With history of mitral valve replacement with bioprosthetic material 6. Hypertension - Blood pressure controlled, home medications continued with dose adjustment as needed 7. History of previous CVA ? With residual right-sided weakness ? PT OT as tolerated 8. Severe protein calorie malnutrition ? Evidenced by suboptimal energy intake as well as weight loss. This is secondary to patient chronic medical comorbidities. Consult placed to dietitian 9. Chronic kidney disease stage III ruled out 10. Physical deconditioning - Requested for PT OT eval and socially responsible investment adviser to assist with discharge planning 11. Anemia - Secondary to chronic disorder as well as acute blood loss anemia from epistaxis monitoring H&H and transfuse if patient becomes symptomatic or hemoglobin falls below 7 12. DVT prophylaxis Patient is on warfarin continued Charges/Coding Visit Charges Inpatient E&M: 45849 Subs Hosp L2
[2021-12-20 10:08] VITALS: BP 119/76; PULSE 73; RESP 16; TEMP 36.8; O2SAT 98
[2021-12-20] MEDS: Menthol/Lanolin/Calamine/Znox 113 GM Tube 1 APPLIC TOPICAL (10:12)
[2021-12-20] MEDS: Cefdinir 300 MG Capsule PO (10:13)
[2021-12-20] MEDS: Clopidogrel Bisulfate 75 MG Tablet PO (10:14)
[2021-12-20] MEDS: OXcarbazepine 300 MG Tablet PO (10:14)
[2021-12-20] MEDS: amLODIPine 10 MG Tablet PO (10:14)
[2021-12-20] MEDS: Cholecalciferol (Vit D3) 125 MCG CAPSULE (5,000 UNITS) PO (10:14)
[2021-12-20] MEDS: Aspirin E.C. 81 MG Tablet PO (10:15)
[2021-12-20] MEDS: Enoxaparin 40 MG/0.4 ML Syringe SC (10:15)
[2021-12-20] MEDS: Citalopram 10 MG Tablet PO (10:16)
--- NOTE | 2021-12-20 13:09 | CASEMGMT ---
TC to [facility], spoke with Michelle, she states she checked the precert a little while ago and it is still pending.
--- NOTE | 2021-12-20 15:36 | PCM.TXEXTCAR ---
Diet 12/14/21 17:25 Diet: Regular - No Added Salt Food consistency:: Regular Liquid Consistency:: Regular/Thin Type of Dietary Supplement:: Ensure Pudding Diet Comments: ensure pudding BID w/ lunch and dinner Routine Orders/Code Status Routine Lab Work: CBC (within 3 days), BMP (within 3 days) and INR (daily until therapeutic ) Code Status: Full Code Wound(s) left foot: Wound Type: callous Therapies Weight Bearing: Weight bearing as tolerated Physical Therapy: Eval and Treat Occupational Therapy: Eval and Treat Problem/Diagnosis (1) Hypertension: Status: Chronic (2) Rheumatic mitral stenosis with insufficiency: Status: Chronic (3) Nicotine dependence: Status: Chronic (4) Paroxysmal atrial fibrillation: Status: Chronic (5) Acute metabolic encephalopathy: Status: Resolved Allergies/Procedures Done in Hospital Allergies amoxicillin [Amoxicillin] Allergy (Verified 12/14/21 10:18) Hives latex Allergy (Verified 12/14/21 10:18) Rash lisinopril Allergy (Verified 12/14/21 10:18) Unknown Penicillins Allergy (Verified 12/14/21 10:18) Hives venom-honey bee [bee venom (honey bee)] Allergy (Verified 12/14/21 10:18) Swelling ciprofloxacin [From Cipro] Adverse Reaction (Verified 12/14/21 10:18) Nausea/Vom/Diarrhea Procedures: None Type of Care/Length of Stay Estimated LOS: Convalescent Care Less Than 30 days Type of Care Needed: Skilled Rehab Potential: Good Prognosis: Good Additional Orders/Day of Discharge Day of Discharge: 12/20/21 Dietary and Speech Recommendations Dietitian Recommendations/Changes: Given signs/symptoms of malnutrition, will continue liberalized diet of Regular/no added salt. Consider STRIP CLEANER evaluation given hx of dysphagia. Will continue 120 ml ensure enlive 4 times per day w/ medpass. Will continue Ensure pudding BID w/ lunch and dinner. Discharge Plan Admission Admit Date/Time: 12/14/21 13:03 Primary Reason for Your Visit: acute metabolic encephalopathy/UTI/supratherapeutic INR: Attending Provider: Juan Delgado Primary Care Provider: Louis Dobbs Consulting Providers: Danae Arellano Discharge Orders/Prescriptions Prescriptions: Continued Ingrezza 40 mg capsule 40 mg PO DAILY RF: 0 aspirin [Adult Low Dose Aspirin] 81 mg tablet,delayed release (DR/EC) 81 mg PO DAILY RF: 0 clopidogrel [Plavix] 75 mg tablet 75 mg PO DAILY RF: 0 citalopram [Celexa] 10 mg tablet 10 mg PO DAILY RF: 0 docusate sodium 100 mg Capsule 100 mg PO BID RF: 0 albuterol 90 mcg/actuation Aerosol 180 mcg INHALATION Q6H PRN PRN (Reason: cough wheezing) RF: 0 cholecalciferol (vitamin D3) 125 mcg (5,000 unit) Capsule 125 mcg PO DAILY RF: 0 hydroxyzine pamoate [Vistaril] 50 mg capsule 50 mg PO TID RF: 0 warfarin 2.5 mg tablet 2.5 mg PO SUTUTHSA RF: 0 amlodipine 5 mg tablet 10 mg PO DAILY RF: 0 warfarin 5 mg tablet 5 mg PO MOWEFR RF: 0 rosuvastatin 5 mg tablet 5 mg PO DAILY RF: 0 trazodone 150 mg tablet 150 mg PO QHS RF: 0 oxcarbazepine [Trileptal] 300 mg tablet 300 mg PO BID RF: 0 mirtazapine [Remeron] 30 mg tablet 30 mg PO QHS RF: 0 Aristada 882 mg/3.2 mL suspension,extended rel syring 882 mg IM QMONTH RF: 0 Referrals / Follow Up: Louis Dobbs MD [Primary Care Provider] - Within 1 Week Disposition Disposition (needs filled in before D/C Order can be placed): Detention Facility
--- NOTE | 2021-12-20 15:38 | PCM.DC.SUM ---
Providers Date of Admission: 12/14/21 Primary Care Physician: Dr. Louis Dobbs MD Reason For Visit: AMS Diagnosis Discharge Diagnosis (1) Hypertension: Status: Chronic Code(s): I10 - Essential (primary) hypertension Qualifiers: Hypertension type: essential hypertension Qualified Code(s): I10 - Essential (primary) hypertension (2) Rheumatic mitral stenosis with insufficiency: Status: Chronic Code(s): I05.2 - Rheumatic mitral stenosis with insufficiency (3) Nicotine dependence: Status: Chronic Code(s): F17.200 - Nicotine dependence, unspecified, uncomplicated Qualifiers: Nicotine product type: cigarettes Substance use status: uncomplicated Qualified Code(s): F17.210 - Nicotine dependence, cigarettes, uncomplicated (4) Paroxysmal atrial fibrillation: Status: Chronic Code(s): I48.0 - Paroxysmal atrial fibrillation (5) Acute metabolic encephalopathy: Status: Resolved Code(s): G93.41 - Metabolic encephalopathy Medications at Discharge Home Medications valbenazine 40 mg capsule 40 mg PO DAILY 08/29/19 aspirin 81 mg tablet,delayed release 81 mg PO DAILY 11/27/20 clopidogrel 75 mg tablet 75 mg PO DAILY 11/27/20 aripiprazole lauroxil 882 mg/3.2 mL suspension, ext.rel. IM syringe 882 mg IM QMONTH 03/03/21 mirtazapine 30 mg tablet 30 mg PO QHS 03/03/21 oxcarbazepine 300 mg tablet 300 mg PO BID 03/03/21 trazodone 150 mg tablet 150 mg PO QHS tab 03/03/21 citalopram 10 mg tablet 10 mg PO DAILY 04/09/21 albuterol 180 mcg INHALATION Q6H PRN PRN 12/14/21 amlodipine 10 mg PO DAILY 12/14/21 cholecalciferol (vitamin D3) 125 mcg PO DAILY 12/14/21 docusate sodium 100 mg PO BID 12/14/21 hydroxyzine pamoate [Vistaril] 50 mg PO TID 12/14/21 rosuvastatin 5 mg PO DAILY 12/14/21 warfarin 2.5 mg PO SUTUTHSA 12/14/21 warfarin 5 mg PO MOWEFR 12/14/21 Hospital Course Summary of Care Provided Minutes Spent on Discharge: 35 Hospital Course: 56-year-old female with past medical history of bipolar disorder, history of multiple strokes in 2008, who was admitted with confusion and found to have acute UTI and supratherapeutic INR. 1. Acute metabolic encephalopathy ? Secondary to acute cystitis with E. coli treated appropriately patient encephalopathy resolved 2. Acute cystitis with E. coli ? Patient was treated with cefdinir 3. Paroxysmal A. fib ? Rate controlled patient is on systemic anticoagulation with Coumadin patient presented with elevated INR and epistaxis. Patient coagulopathy reversed INR 1.1 as of today Coumadin resumed 4. Epistaxis ? Secondary to coagulopathy resolved 5. Valvular heart disease ? With history of mitral valve replacement with bioprosthetic material 6. Hypertension - Blood pressure controlled, home medications continued with dose adjustment as needed 7. History of previous CVA ? With residual right-sided weakness ? PT OT as tolerated 8. Severe protein calorie malnutrition ? Evidenced by suboptimal energy intake as well as weight loss. This is secondary to patient chronic medical comorbidities. Consult placed to dietitian 9. Chronic kidney disease stage III ruled out 10. Physical deconditioning - Requested for PT OT eval and social service technician to assist with discharge planning 11. Anemia - Secondary to chronic disorder as well as acute blood loss anemia from epistaxis monitoring H&H and transfuse if patient becomes symptomatic or hemoglobin falls below 7 12. DVT prophylaxis Patient is on warfarin continued Physical Exam Narrative GENERAL: cooperative HEENT: Atraumatic; EYES; Anicteric, Normal Conjunctiva NECK; supple, normal thyroid, RESPIRATORY: Diminished to auscultation CARDIOVASCULAR: Regular S1 S2, GI: soft, normoactive bowel sounds, : No Renal angle tenderness; EXTREMITIES: No edema, no clubbing, MUSCULOSKELETAL: no muscle wasting NEURO: Awake; no lateralizing signs. SKIN: No Rash PSYCH; Flat affect Medical Records Data Medical Nutrition Assessment Dietitian: Malnutrition Criteria Met Start: 12/14/21 17:24 Freq: Status: Active Protocol: Document 12/17/21 12:30 [facility] (Rec: 12/17/21 12:30 [facility] [id number]) Nutrition Malnutrition Evidence of Malnutrition Exists Yes Malnutrition (severe): Chronic Evidenced By Suboptimal Energy Intake ( Severe),Weight Loss (Severe) Clinical Problem Chronic Disease or Condition Related Malnutrition Etiology Severe protein-calorie malnutrition in the context of chronic disease related to inadequate oral intake and likely dysphagia Signs/Symptoms as evidenced by ~19% wt loss in less than 3 months and PO meeting less than 50% estimated nutrition needs Status Active Problem Recommendation Dietitian Recommendations/Changes Given signs/symptoms of malnutrition, will continue liberalized diet of Regular/no added salt. Consider GUEST EXPERIENCE REPRESENTATIVE evaluation given hx of dysphagia. Will continue 120 ml ensure enlive 4 times per day w/ medpass. Will continue Ensure pudding BID w/ lunch and dinner. Weight / BMI Weight Weight: 78.5 kg Body Mass Index (BMI) 27.2 ABG / Lab / Microbiology Data Result Diagrams: 12/20/21 05:07 12/20/21 05:07 Laboratory: Laboratory Results - last 24 hr 12/20/21 05:07: PT 14.0, INR 1.1 12/20/21 05:07: WBC 5.1, RBC 3.43 L, Hgb 10.7 L, Hct 33.4 L, MCV 97.4, MCH 31.2, MCHC 32.0, RDW Std Deviation 55.8 H, RDW Coeff of Jonathon 15.5 H, Plt Count 242, MPV 10.3, Immature Gran % (Auto) 0.200, Neut % (Auto) 52.6, Lymph % (Auto) 32.5, [place] % (Auto) 8.6, Eos % (Auto) 5.1 H, Baso % (Auto) 1.0, Absolute Neuts (auto) 2.7, Absolute Lymphs (auto) 1.67, Nucleated RBC % 0 12/20/21 05:07: Sodium 139, Potassium 4.5, Chloride 110 H, Carbon Dioxide 25.0, Anion Gap 4 L, BUN 27 H, Creatinine 0.83, Estim Creat Clear Calc 61.28, Est GFR (MDRD) Af Amer 92, Est GFR (MDRD) Non-Af 76, BUN/Creatinine Ratio 32.5 H, Glucose 91, Calcium 8.6, Total Bilirubin 0.40, AST 25, ALT 40, Alkaline Phosphatase 60, Total Protein 5.8 L, Albumin 2.9 L, Globulin 2.9, Albumin/Globulin Ratio 1.0 Microbiology: Microbiology 12/14/21 11:27 Urine Catheter - Catheter Urine Culture - Final Escherichia coli D/C Instructions Discharge Diet: No restrictions Discharge Activity: Return to Normal Activity Call your doctor if you observe: Fever of 101 or Higher, Shortness of breath, Fainting spells and Chest pain Meaningful Use Info Meaningful Use Diagnoses (Choose all that apply): None applicable Discharge Plan Admission Admit Date/Time: 12/14/21 13:03 Primary Reason for Your Visit: acute metabolic encephalopathy/UTI/supratherapeutic INR: Attending Provider: Juan Delgado Primary Care Provider: Louis Dobbs Consulting Providers: Danae Arellano Discharge Orders/Prescriptions Prescriptions: Continued Ingrezza 40 mg capsule 40 mg PO DAILY RF: 0 aspirin [Adult Low Dose Aspirin] 81 mg tablet,delayed release (DR/EC) 81 mg PO DAILY RF: 0 clopidogrel [Plavix] 75 mg tablet 75 mg PO DAILY RF: 0 citalopram [Celexa] 10 mg tablet 10 mg PO DAILY RF: 0 docusate sodium 100 mg Capsule 100 mg PO BID RF: 0 albuterol 90 mcg/actuation Aerosol 180 mcg INHALATION Q6H PRN PRN (Reason: cough wheezing) RF: 0 cholecalciferol (vitamin D3) 125 mcg (5,000 unit) Capsule 125 mcg PO DAILY RF: 0 hydroxyzine pamoate [Vistaril] 50 mg capsule 50 mg PO TID RF: 0 warfarin 2.5 mg tablet 2.5 mg PO SUTUTHSA RF: 0 amlodipine 5 mg tablet 10 mg PO DAILY RF: 0 warfarin 5 mg tablet 5 mg PO MOWEFR RF: 0 rosuvastatin 5 mg tablet 5 mg PO DAILY RF: 0 trazodone 150 mg tablet 150 mg PO QHS RF: 0 oxcarbazepine [Trileptal] 300 mg tablet 300 mg PO BID RF: 0 mirtazapine [Remeron] 30 mg tablet 30 mg PO QHS RF: 0 Aristada 882 mg/3.2 mL suspension,extended rel syring 882 mg IM QMONTH RF: 0 Referrals / Follow Up: Louis Dobbs MD [Primary Care Provider] - Within 1 Week Disposition Disposition (needs filled in before D/C Order can be placed): [facility] Charges/Coding Visit Charges Inpatient E&M: 42635 Disch Hosp
--- NOTE | 2021-12-20 17:17 | CASEMGMT ---
Social Work SW received call from [facility] that precert has been obtained. Physician updated and plans to discharge pt today. 7000 convalescent form completed in [facility]. Orders faxed to [facility]. [facility] arranged [facility] for 1800 pickup via cot. SW updated pt and she is agreeable to discharge plan. Phone call to pt mother and notified. Nursing updated. Plan: [facility] Sorensen, skilled level of care under convalescent stay ERROL Wooten
[2021-12-20 17:44] VITALS: BP 108/65; PULSE 74; RESP 16; TEMP 36.6; O2SAT 98
--- NOTE | 2021-12-20 17:53 | NURSING ---
REPORT GIVEN TO STACIE AT [facility]
[2021-12-20 20:48] VITALS: BP 106/77; PULSE 81; RESP 20; TEMP 36.3; O2SAT 100
== END 2021-12-20 21:10 | disposition skilled nursing facility (03) | DRG 689 ==
LOC: ED 12:56 → MS3 13:38
PROVIDERS: Admitting Provider Internal Medicine; Emergency Provider Emergency Medicine; PCP Internal Medicine; Visit Provider Internal Medicine
DX: N30.00 Acute cystitis without hematuria (principal); G93.41 Metabolic encephalopathy; E43 Unspecified severe protein-calorie malnutrition; I44.2 Atrioventricular block, complete; D62 Acute posthemorrhagic anemia; I42.8 Other cardiomyopathies; I69.351 Hemiplegia and hemiparesis following cerebral infarction affecting right dominant side; I05.2 Rheumatic mitral stenosis with insufficiency; D63.8 Anemia in other chronic diseases classified elsewhere; I49.5 Sick sinus syndrome; I48.0 Paroxysmal atrial fibrillation; F20.9 Schizophrenia, unspecified; F31.9 Bipolar disorder, unspecified; I71.4 Abdominal aortic aneurysm, without rupture; J44.9 Chronic obstructive pulmonary disease, unspecified; F17.210 Nicotine dependence, cigarettes, uncomplicated; I10 Essential (primary) hypertension; B96.20 Unspecified Escherichia coli [E. coli] as the cause of diseases classified elsewhere; Z79.82 Long term (current) use of aspirin; Z79.02 Long term (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 antithrombotics/antiplatelets; Z79.01 Long term (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 anticoagulants; Z79.899 Other long term (current) drug therapy; R04.0 Epistaxis; Z95.2 Presence of prosthetic heart valve; Z68.27 Body mass index [BMI] 27.0-27.9, adult; Z95.0 Presence of cardiac pacemaker; Z87.891 Personal history of nicotine dependence; I49.3 Ventricular premature depolarization; R79.1 Abnormal coagulation profile; T45.515A Adverse effect of anticoagulants, initial encounter; R53.81 Other malaise
CPT/HCPCS: 36415; 36416; 70450; 80048; 80053; 81001; 85025; 85610; 87077; 87086; 87088; 87186; 87426; 93005; 97110; 97116; 97162; 97166; 97530; 97535; 97802; 99251; 99285; 99406; J7030; A4216; G0463

== ENCOUNTER 2022-02-16 12:47 | Inpatient (IN) | payer MEDICARE, MEDICAID, SELFPAY ==
[2022-02-16] VITALS (24 sets, daily range): BP systolic 80–173; BP diastolic 52–106; PULSE 63–92; RESP 14–33; TEMP 34.9–36.3; O2SAT 90–100; BMI 33.0; BMI 33.2
--- NOTE | 2022-02-16 13:00 | CT_ITS ---
STUDY: CT BRAIN WITHOUT CONTRAST REASON FOR EXAM: Female, 56 years old. Confusion RADIATION DOSAGE (If Supplied By Facility): CTDIvol = ( 44.99 ) mGy, DLP = ( 779.24 ) mGycm TECHNIQUE: Transaxial CT imaging of the brain was performed without administration of intravenous contrast material. Individualized dose optimization techniques were used for this CT. COMPARISON: Comparison is made with prior study 12/14/2021. FINDINGS: Normal soft tissue structures. Normal calvarium. There is mild cerebral atrophy with widening of the extra-axial spaces and ventricular dilatation. Stable bilateral multifocal areas of encephalomalacia more prominent than the left cerebral hemisphere in keeping with prior strokes. Aneurysmal clips are once again seen in the region of [place]. Normal basal ganglia and thalami. Normal brainstem. Normal cerebellum. There is no intracranial hemorrhage. There are no findings of an acute ischemic infarction. Normal visualized paranasal sinuses. CT/Brain/Head without Contrast IMPRESSION: Stable examination. No acute abnormality is seen. Electronically Signed: Miguel Lau MD at 13:55 EDT ,
--- NOTE | 2022-02-16 13:01 | EKG12_ITS ---
Test Reason : ALT LOC Blood Pressure : / mmHG Vent. Rate : 069 BPM Atrial Rate : 069 BPM P-R Int : 206 ms QRS Dur : 188 ms QT Int : 512 ms P-R-T Axes : 025 -65 095 degrees QTc Int : 548 ms Atrial-sensed ventricular-paced rhythm Abnormal ECG Confirmed by ALVARO BAZAN, DUONG ([id number]), brands editor MAYLIN ARGUELLO ([id number]) on 02/17/2022 9:24:41 AM Referred By: SHANTELL Confirmed By:DUONG JOHN MD
--- NOTE | 2022-02-16 13:02 | EX.ED.DYSGE1 ---
HPI History of Present Illness Chief Complaint: Alt LOC Informant: patient, EMS and SNF Narrative Narrative: Patient tested positive for COVID on February 10. She is currently on Paxlovid and scheduled to take her last dose today. [facility] reports that she had altered mental status today with bruising noted to her face and extremities. She is currently on Coumadin and her INR has been elevated recently. EMS notes initial blood pressure was low but did respond to a 250 cc IV fluid bolus. 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 Mitral regurgitation Non-ischemic cardiomyopathy Schizophrenia Sick sinus syndrome Stroke/cerebrovascular accident Unsteady gait Home Medications valbenazine 40 mg capsule (Ingrezza) 80 mg PO DAILY tardive dyskinesia 08/29/19 [History Last Taken 01/26/21] aspirin 81 mg tablet,delayed release (Adult Low Dose Aspirin) 81 mg PO DAILY Check with primary doctor 11/27/20 [History Last Taken 01/27/21] clopidogrel 75 mg tablet (Plavix) 75 mg PO DAILY Check with primary doctor 11/27/20 [History Last Taken 01/27/21] mirtazapine 30 mg tablet (Remeron) 30 mg PO QHS Check with primary doctor 03/03/21 [History Last Taken Unknown] oxcarbazepine 300 mg tablet (Trileptal) 300 mg PO BID Check with primary doctor 03/03/21 [History Last Taken Unknown] trazodone 150 mg tablet 150 mg PO QHS Check with primary doctor 03/03/21 [History Last Taken Unknown] citalopram 10 mg tablet (Celexa) 10 mg PO DAILY Check with primary doctor 04/09/21 [History Last Taken Unknown] albuterol 90 mcg/actuation aerosol inhaler 180 mcg inhalation Q6H PRN PRN cough wheezing 12/14/21 [History Last Taken Unknown] amlodipine 5 mg tablet 10 mg PO DAILY Check with primary doctor 12/14/21 [History Last Taken Unknown] cholecalciferol (vitamin D3) 125 mcg (5,000 unit) capsule 125 mcg PO DAILY supplement 12/14/21 [History Last Taken Unknown] docusate sodium 100 mg capsule 100 mg PO BID CONSTPATION 12/14/21 [History Last Taken Unknown] hydroxyzine pamoate 50 mg capsule (Vistaril) 50 mg PO TID Check with primary doctor 12/14/21 [History Last Taken Unknown] rosuvastatin 5 mg tablet 5 mg PO QHS Check with primary doctor 12/14/21 [History Last Taken Unknown] warfarin 2.5 mg tablet 4 mg PO WE Check with primary doctor 12/14/21 [History Last Taken Unknown] warfarin 5 mg tablet 5 mg PO SUMOTUTHFRSA blood thinner 12/14/21 [History Last Taken Unknown] acetaminophen 500 mg tablet 500 mg PO Q6H PRN pain/fever 02/16/22 [History Last Taken Unknown] acetaminophen 500 mg tablet 500 mg PO TID 02/16/22 [History Last Taken Unknown] aripiprazole 5 mg tablet (Abilify) 2.5 mg PO BID 02/16/22 [History Last Taken Unknown] lorazepam 0.5 mg tablet (Ativan) 0.5 mg PO TID 02/16/22 [History Last Taken Unknown] ondansetron 4 mg disintegrating tablet 4 mg PO Q6H PRN Nausea 02/16/22 [History Last Taken Unknown] Allergy/AdvReac Type Severity Reaction Status Date / Time amoxicillin [Amoxicillin] Allergy Hives Verified 02/16/22 13:19 latex Allergy Rash Verified 02/16/22 13:19 lisinopril Allergy Unknown Verified 02/16/22 13:19 Penicillins Allergy Hives Verified 02/16/22 13:19 venom-honey bee Allergy Swelling Verified 02/16/22 13:19 [bee venom (honey bee)] ciprofloxacin [From Cipro] AdvReac Nausea/Vom/ Verified 02/16/22 13:19 Diarrhea Surgical History History of History of mitral valve replacement with bioprosthetic valve (07/23/09) History of partial colectomy Presence of cardiac pacemaker (09/21/20) Social History current occupational status: unemployed Smoking Status: Former smoker alcohol intake: current alcohol intake frequency: holidays/special occasions only substance use type: does not use caffeine: Yes Type: carbonated beverages Number of servings: 1 ROS ROS ED ROS Narrative Patient with altered mental status. She will open her eyes to command. Will answer yes and no to simple questions. She denies having pain presently but just feels sleepy. Review of Systems ROS Unobtainable: due to mental condition EXAM Physical Exam Const Vital Signs: 02/16/22 12:48 02/16/22 12:51 02/16/22 13:13 Temperature 97.3 F L 97.3 F L Temperature Source Oral Oral Pulse Rate 78 76 Respiratory Rate 21 H 24 H Respiratory Effort Short of Breath Respiratory Pattern Normal Blood Pressure 100/53 L 100/53 L Blood Pressure Mean 68 68 Pulse Ox 94 93 Oxygen Delivery Method Room Air Room Air Oxygen Flow Rate (L/min) 02/16/22 13:15 02/16/22 13:18 02/16/22 13:19 Temperature Temperature Source Pulse Rate 71 Respiratory Rate 18 20 H Respiratory Effort Respiratory Pattern Blood Pressure 80/52 L Blood Pressure Mean 61 Pulse Ox 90 90 95 Oxygen Delivery Method Room Air Room Air Nasal Cannula Oxygen Flow Rate (L/min) 2 02/16/22 13:24 02/16/22 13:41 Temperature Temperature Source Pulse Rate Respiratory Rate 20 H Respiratory Effort Respiratory Pattern Blood Pressure 94/57 L Blood Pressure Mean 69 Pulse Ox 94 Oxygen Delivery Method Nasal Cannula Oxygen Flow Rate (L/min) 2 Positive well nourished and well developed General Appearance ED: well developed HEENT HEENT Narrative: Ecchymosis noted to left forehead as well as left upper extremity. Eyes PERRL Neck Neck Narrative: No meningismus Chest Wall inspection of chest normal and palpation of chest normal Resp normal respiratory effort and clear to auscultation bilaterally Cardio regular rate and regular rhythm GI non-tender Auscultation: hypoactive bowel sounds Palpation: soft Neuro Neuro Narrative: Sleepy but will arouse to voice and answer simple questions. History of hemiparesis from prior stroke. Skin Skin Narrative: Ecchymoses as noted above. MDM MDM MDM Narrative Medical decision making narrative: Head CT and chest x-ray ordered. Lab work obtained along with cultures. Urinalysis ordered. Lab Data Attestation: I reviewed the patient's lab results. Labs: Laboratory Results - last 24 hr 02/16/22 02/16/22 02/16/22 12:58 12:58 12:58 WBC 13.0 H RBC 4.12 L Hgb 12.5 Hct 38.0 MCV 92.2 MCH 30.3 MCHC 32.9 RDW Std Deviation 46.2 H RDW Coeff of Jonathon 13.6 Plt Count 335 MPV 8.9 Immature Gran % (Auto) 0.800 Neut % (Auto) 89.8 H Lymph % (Auto) 4.4 L Calvert % (Auto) 4.8 Eos % (Auto) 0.0 Baso % (Auto) 0.2 Absolute Neuts (auto) 11.7 H Absolute Lymphs (auto) 0.57 L Nucleated RBC % 0 PT Cancelled INR Cancelled Sodium Cancelled Potassium Cancelled Chloride Cancelled Carbon Dioxide Cancelled Anion Gap Cancelled BUN Cancelled Creatinine Cancelled Estim Creat Clear Calc Cancelled Est GFR (MDRD) Af Amer Cancelled Est GFR (MDRD) Non-Af Cancelled BUN/Creatinine Ratio Cancelled Glucose Cancelled Lactic Acid Calcium Cancelled Total Bilirubin Cancelled Direct Bilirubin Cancelled AST Cancelled ALT Cancelled Alkaline Phosphatase Cancelled Troponin I High Sens Cancelled Total Protein Cancelled Albumin Cancelled Globulin Cancelled 02/16/22 02/16/22 02/16/22 12:58 13:25 13:25 WBC RBC Hgb Hct MCV MCH MCHC RDW Std Deviation RDW Coeff of Jonathon Plt Count MPV Immature Gran % (Auto) Neut % (Auto) Lymph % (Auto) Calvert % (Auto) Eos % (Auto) Baso % (Auto) Absolute Neuts (auto) Absolute Lymphs (auto) Nucleated RBC % PT 34.0 H INR 3.4 Sodium 135 L Potassium 4.9 Chloride 106 Carbon Dioxide 23.0 Anion Gap 6 BUN 24 H Creatinine 1.77 H Estim Creat Clear Calc 28.74 Est GFR (MDRD) Af Amer 38 L Est GFR (MDRD) Non-Af 32 L BUN/Creatinine Ratio 13.6 Glucose 99 Lactic Acid 3.1 H* Calcium 8.9 Total Bilirubin 0.50 Direct Bilirubin 0.16 AST 63 H ALT 32 Alkaline Phosphatase 90 Troponin I High Sens 14 Total Protein 6.8 Albumin 3.8 Globulin 3.0 Radiography Chest X-Ray - ED: 1 View, Read by ED Physician and Chronic Changes Diagnostic Testing: Clinical Impression(s) from Imaging Studies Brain CT 02/16/22 13:00 IMPRESSION: Stable examination. No acute abnormality is seen. Electronically Signed: Miguel Lau MD at 13:55 EDT , Chest X-Ray 02/16/22 13:45 IMPRESSION: Mild increased markings at the lung bases slightly more prominent on the left side with blunting of the left costophrenic angle. Follow-up suggested. Electronically Signed: Miguel Lau MD at 13:56 EDT , EKG Initial EKG: Attestation: I personally reviewed and interpreted this EKG as follows: Interpretation: - (Paced rhythm at 69 bpm. No obvious ischemia.) Treatment and Re-Evaluation Narrative: Lab work reveals elevated white count at 13.0. Lab work obtained yesterday revealed a white count of 3.6. A left shift is present. Chemistry studies significant for acute renal injury with a creatinine of 1.77. Appears her baseline is around 0.8. INR is 3.4. Chest x-ray per my interpretation reveals no focal infiltrate. Head CT per radiology reveals stable exam with no acute abnormality. We did attempt to straight cath the patient but there was no urine noted in her bladder. Due to elevated lactic acid level a 30 cc/kg bolus has been initiated. Blood pressure at this time is 102/66. I will go ahead and give her cefepime and vancomycin to cover for sepsis with unknown source. On review of records it does appear patient was here for similar in December of this year. She had metabolic encephalopathy with a UTI at that time. At this time I will speak with the hospitalist for admission. Discharge Plan Triage Chief Complaint: Alt LOC ED Provider: Jamia Hu Dx/Rx/DC Orders Clinical Impression: Sepsis, Acute kidney injury, Acidosis, lactic Prescriptions: No Action Ingrezza 40 mg capsule 80 mg PO DAILY aspirin [Adult Low Dose Aspirin] 81 mg tablet,delayed release (DR/EC) 81 mg PO DAILY clopidogrel [Plavix] 75 mg tablet 75 mg PO DAILY citalopram [Celexa] 10 mg tablet 10 mg PO DAILY docusate sodium 100 mg Capsule 100 mg PO BID albuterol 90 mcg/actuation Aerosol 180 mcg INHALATION Q6H PRN PRN (Reason: cough wheezing) Rx Instructions: 2 puffs q6h prn cholecalciferol (vitamin D3) 125 mcg (5,000 unit) Capsule 125 mcg PO DAILY hydroxyzine pamoate [Vistaril] 50 mg capsule 50 mg PO TID warfarin 2.5 mg tablet 4 mg PO BINH Protocol: Dose Management Condition: Monday Dose/Route: 5 mg Instruction: 1 x 5 mg tablet Condition: Monday Dose/Route: 0 mg Instruction: 0 tablets Condition: Monday Dose/Route: 2.5 mg Instruction: 1 x 2.5 mg tablet Condition: Monday Dose/Route: 2.5 mg Instruction: 1 x 2.5 mg tablet Condition: Dose/Route: 2.5 mg Instruction: 1 x 2.5 mg tablet Condition: Monday Dose/Route: 5 mg Instruction: 1 x 5 mg tablet Condition: Monday Dose/Route: 5 mg Instruction: 1 x 5 mg tablet Protocol Text: Adjustment Start Date: Monday12/13/21 INR Value: 4.2 INR Date: 12/13/21 Recheck Date: 12/17/21 amlodipine 5 mg tablet 10 mg PO DAILY warfarin 5 mg tablet 5 mg PO KORINUTHFRSA Protocol: Dose Management Condition: Monday Dose/Route: 5 mg Instruction: 1 x 5 mg tablet Condition: Monday Dose/Route: 0 mg Instruction: 0 tablets Condition: Monday Dose/Route: 2.5 mg Instruction: 1 x 2.5 mg tablet Condition: Monday Dose/Route: 2.5 mg Instruction: 1 x 2.5 mg tablet Condition: Dose/Route: 2.5 mg Instruction: 1 x 2.5 mg tablet Condition: Monday Dose/Route: 5 mg Instruction: 1 x 5 mg tablet Condition: Monday Dose/Route: 5 mg Instruction: 1 x 5 mg tablet Protocol Text: Adjustment Start Date: Akshat 05/09/22 INR Value: 4.2 INR Date: 12/13/21 Recheck Date: 12/17/21 rosuvastatin 5 mg tablet 5 mg PO QHS acetaminophen 500 mg Tablet 500 mg PO Q6H PRN (Reason: pain/fever) acetaminophen 500 mg Tablet 500 mg PO TID lorazepam [Ativan] 0.5 mg Tablet 0.5 mg PO TID ondansetron 4 mg Tablet,Disintegrating 4 mg PO Q6H PRN (Reason: Nausea) aripiprazole [Abilify] 5 mg Tablet 2.5 mg PO BID trazodone 150 mg tablet 150 mg PO QHS oxcarbazepine [Trileptal] 300 mg tablet 300 mg PO BID mirtazapine [Remeron] 30 mg tablet 30 mg PO QHS Primary Care Provider: Louis Dobbs Referrals: Louis Dobbs MD [Primary Care Provider] - Disposition Disposition: Acute Care Hospital [facility]
[2022-02-16 13:14] LABS: Absolute Lymphocyte Count 0.57 X10^3/uL (0.83-4.51); Absolute Neutrophil Count 11.7 X10^3/uL (2.0-7.7); Basophil# 0.03 X10^3/uL; Basophil% 0.2 % (0-1); Hemoglobin 12.5 g/dL (12.0-15.0); Lymphocyte # 0.57 X10^3/ul (0.83-4.51); Lymphocyte % 4.4 % (19-41); Mean Corp Hgb Conc 32.9 g/dL (32-36); Mean Corpuscular Hgb 30.3 pg (27.0-32.0); Mean Corpuscular Volume 92.2 fL (81-99); Mean Platelet Vol. 8.9 fl (6.2-12.0); Monocyte# 0.63 X10^3/uL; Monocyte% 4.8 % (0-10); NRBC Flagged by Analyzer 0 % (0-5); Neutrophil # 11.71 X10^3/uL (2.7-7.7); Neutrophil % 89.8 % (47-70); POSITIVE DIFFERENTIAL YES; Platelet Count 335 K/mm3 (150-450); RBC Distribution Width CV 13.6 % (11.6-14.6); RBC Distribution Width SD 46.2 fl (35.1-43.9); Red Blood Count 4.12 M/mm3 (4.2-5.4)
[2022-02-16 13:15] LABS: Differential Indicated SCAN CRITERIA MET
[2022-02-16] MEDS: 0.9% Normal Saline 1,000 ML 1000 ML IV (13:16)
--- NOTE | 2022-02-16 13:19 | NURSING ---
PER LAB, CHEMISTRIES HEMOLIZED, COAGS NOT FULL
[2022-02-16 13:43] LABS: International Normalized Ratio 3.4
--- NOTE | 2022-02-16 13:45 | RAD_ITS ---
STUDY: X-RAY CHEST REASON FOR EXAM: Female, 56 years old. Cough, covid TECHNIQUE: Single AP portable view of the chest. COMPARISON: Comparison is made with prior study dated 07/22/2021. FINDINGS: EKG electrodes are seen. Mild degree of increased markings at the left lung base with blunting of the left costophrenic angle. Follow-up is recommended. Mild increased markings at the right lung base as well. Sternal cerclage wires are present from a prior sternotomy. Prior mitral valve replacement. A left-sided dual-chamber pacemaker is seen. Normal mediastinum and dee dee. Normal visualized pulmonary arteries. Normal visualized aortic arch and descending thoracic aorta. Normal visualized thoracic spine. Normal visualized ribs, clavicles, and shoulders. There is no demonstrated abnormality of the visualized soft tissue structures of the upper abdomen. RAD/Chest 1 View (Portable) IMPRESSION: Mild increased markings at the lung bases slightly more prominent on the left side with blunting of the left costophrenic angle. Follow-up suggested. Electronically Signed: Miguel Lau MD at 13:56 EDT ,
--- NOTE | 2022-02-16 13:46 | ED.RN ---
pt straight cathed at 1335, no urine output noted. dr. carolina jones.
[2022-02-16 13:48] LABS: Lactic Acid 3.1 mmol/L (0.4-1.9)
[2022-02-16 13:52] LABS: AST(SGOT) 63 U/L (15-37); Alanine Aminotransfer ALT/SGPT 32 U/L (13-56); Albumin, Serum 3.8 g/dL (3.2-5.0); Alkaline Phosphatase 90 U/L (45-117); Anion Gap 6 (5-15); BUN 24 mg/dL (7-18); BUN/Creat Ratio 13.6 RATIO (10-20); Bilirubin, Direct 0.16 mg/dL (0.00-0.30); Calcium,Total 8.9 mg/dL (8.5-10.1); Chloride 106 mmol/L (98-107); Creatinine, Serum 1.77 mg/dL (0.55-1.02); EST Glomerular Filtration Rate 32 mL/min (>60); Est Glom Filt Rate - Afr Amer 38 mL/min (>60); Estimated Creatinine Clearance 28.74 ml/min; Glucose 99 mg/dL (74-106); Potassium 4.9 mmol/L (3.5-5.1); Protein, Total 6.8 g/dL (6.4-8.2); Sodium Level 135 mmol/L (136-145); Troponin-I HS 14 pg/mL (3.0-54.0)
[2022-02-16] MEDS: 0.9% Normal Saline 1,000 ML 999 ML IV (13:53)
--- NOTE | 2022-02-16 14:16 | NURSING ---
DR PINTO FOR DR STINSON
--- NOTE | 2022-02-16 14:18 | ED.RN ---
UNABLE TO OBTAIN AXILLARY TEMPERATURE WITH THERMOMETER. TA TEMP READING 860f. DR. STINSON INFORMED. ORDERS FOR TEMP FUCHS PER DR. STINSON. FUCHS PLACED., DRAINING CLOUDY YELLOW URINE. SECURE STICKER FOR FUCHS PLACED ON RIGHT THIGH AFTER SKIN PREP.
[2022-02-16 14:24] LABS: Bacteria 0 SEEN /hpf (None Seen); Mucous, Urine 0 SEEN /hpf (<or=2+); Red Blood Cells-Urine 0 SEEN /hpf (0-5)
[2022-02-16 14:27] LABS: Color, Urine Yellow (Yellow); Glucose, Dipstick Normal (Normal); Ketone-Dipstick 5 mg/dl (Negative); Leukocyte Esterase-Dipstick 100 /ul (Negative); Nitrite-Dipstick Positive (Negative); Occult Blood-Urine 250 /ul (Negative); Protein-Dipstick 100 mg/dl (Negative); Urine Clarity Sl. Cloudy (Clear); Urine Urobilinogen 4 mg/dl (Normal)
--- NOTE | 2022-02-16 14:27 | NURSING ---
ICU KITTOE SEPSIS, AMS, JETT
[2022-02-16 14:28] LABS: Urine Bilirubin Dipstick 3 mg/dL (Negative)
[2022-02-16 14:33] LABS: Squamous Epithelial Cells - UA 0-5 SEEN /hpf (5-10); White Blood Cells 0-5 SEEN /hpf (0-5)
[2022-02-16] MEDS: 0.9% Normal Saline 1,000 ML 150 ML IV ×2 (14:45→17:17)
--- NOTE | 2022-02-16 14:52 | HP.PCM.HOS_ITS ---
HPI - General General Date of Admission: 02/16/22 Date of Service: 02/16/22 Chief Complaint: Altered mental status HPI Narrative FROILAN GARCÍA, is a 56 F with past medical history significant for paroxysmal A. fib, previous CVA with residual right-sided weakness recent admission for acute cystitis with E. coli, diagnosed with COVID-19 infection on 02/10/2022 started on Paxlovid with who was brought to the emergency department with altered mental status. Patient was also reported to have experienced bouts of emesis with bruises all over. Patient was found to be significantly lethargic upon arrival to the emergency department. She was also found to be hypotensive with WBC count of 13. Urinalysis could not be obtained since straight catheterization did not retain any urine. Chest x-ray obtained in the emergency department demonstrated mild increased markings at the lung bases left greater than right. 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 Former smoker Hemiparesis due to old cerebrovascular accident equipment [employer] (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 anticoagulants Mitral regurgitation Non-ischemic cardiomyopathy Schizophrenia Sick sinus syndrome Stroke/cerebrovascular accident Unsteady gait Home Medications aspirin 81 mg tablet,delayed release (Adult Low Dose Aspirin) 81 mg PO DAILY BLOOD THINNER 11/27/20 [History Last Taken 02/16/22] clopidogrel 75 mg tablet (Plavix) 75 mg PO DAILY BLOOD THINNER 11/27/20 [History Last Taken 02/16/22] mirtazapine 30 mg tablet (Remeron) 30 mg PO QHS Check with primary doctor 03/03/21 [History Last Taken 02/15/22] oxcarbazepine 300 mg tablet (Trileptal) 300 mg PO BID SEIZURES 03/03/21 [History Last Taken 02/16/22] trazodone 150 mg tablet 150 mg PO QHS SLEEP 03/03/21 [History Last Taken 02/15/22] citalopram 10 mg tablet (Celexa) 10 mg PO DAILY DEPRESSION 04/09/21 [History Last Taken 02/16/22] cholecalciferol (vitamin D3) 125 mcg (5,000 unit) capsule 125 mcg PO DAILY supplement 12/14/21 [History Last Taken 02/16/22] docusate sodium 100 mg capsule 100 mg PO BID CONSTPATION 12/14/21 [History Last Taken 02/16/22] hydroxyzine pamoate 50 mg capsule (Vistaril) 50 mg PO TID BIPOLAR 12/14/21 [History Last Taken 02/16/22] rosuvastatin 5 mg tablet 5 mg PO QHS CHOLESTEROL 12/14/21 [History Last Taken 02/10/22] acetaminophen 500 mg tablet 500 mg PO Q6H PRN pain/fever 02/16/22 [History Last Taken Unknown] acetaminophen 500 mg tablet 500 mg PO TID PAIN 02/16/22 [History Last Taken 02/16/22] amlodipine 10 mg tablet 10 mg PO DAILY HTN 02/16/22 [History Last Taken 02/16/22] aripiprazole 5 mg tablet (Abilify) 2.5 mg PO BID MOOD 02/16/22 [History Last Taken 02/16/22] lorazepam 0.5 mg tablet (Ativan) 0.5 mg PO TID ANXIETY 02/16/22 [History Last Taken 02/16/22] nirmatrelvir 150 mg-ritonavir 100 mg tablets in a dose pack (EUA) (Paxlovid) 3 tab PO BID COVID 02/16/22 [History Last Taken 02/16/22] ondansetron 4 mg disintegrating tablet 4 mg PO Q6H PRN Nausea 02/16/22 [History Last Taken 02/16/22] valbenazine 80 mg capsule (Ingrezza) 80 mg PO DAILY TARDIVS DYSKINESIA 02/16/22 [History Last Taken 02/16/22] warfarin 4 mg tablet 4 mg PO WE BLOOD THINNER 02/16/22 [History Last Taken Unknown] warfarin 5 mg tablet 5 mg PO SUMOTUTHFRSA 02/16/22 [History Last Taken 02/15/22] Allergy/AdvReac Type Severity Reaction Status Date / Time amoxicillin [Amoxicillin] Allergy Hives Verified 02/16/22 13:19 latex Allergy Rash Verified 02/16/22 13:19 lisinopril Allergy Unknown Verified 02/16/22 13:19 Penicillins Allergy Hives Verified 02/16/22 13:19 venom-honey bee Allergy Swelling Verified 02/16/22 13:19 [bee venom (honey bee)] ciprofloxacin [From Cipro] AdvReac Nausea/Vom/ Verified 02/16/22 13:19 Diarrhea Surgical History History of History of mitral valve replacement with bioprosthetic valve (07/23/09) History of partial colectomy Presence of cardiac pacemaker (09/21/20) Social History current occupational status: unemployed Smoking Status: Former smoker alcohol intake: current alcohol intake frequency: holidays/special occasions only substance use type: does not use caffeine: Yes Type: carbonated beverages Number of servings: 1 ROS Review of Systems ROS Unobtainable: due to encephalopathy Vital Signs Vital Signs Vital Signs: 02/16/22 12:48 02/16/22 12:51 02/16/22 13:13 Temperature 97.3 F L 97.3 F L Temperature Source Oral Oral Pulse Rate 78 76 Respiratory Rate 21 H 24 H Respiratory Effort Short of Breath Respiratory Pattern Normal Blood Pressure 100/53 L 100/53 L Blood Pressure Mean 68 68 Pulse Ox 94 93 Oxygen Delivery Method Room Air Room Air Oxygen Flow Rate (L/min) 02/16/22 13:15 02/16/22 13:18 02/16/22 13:19 Temperature Temperature Source Pulse Rate 71 Respiratory Rate 18 20 H Respiratory Effort Respiratory Pattern Blood Pressure 80/52 L Blood Pressure Mean 61 Pulse Ox 90 90 95 Oxygen Delivery Method Room Air Room Air Nasal Cannula Oxygen Flow Rate (L/min) 2 02/16/22 13:24 02/16/22 13:41 02/16/22 14:36 Temperature Temperature Source Pulse Rate 69 Respiratory Rate 20 H 24 H Respiratory Effort Respiratory Pattern Blood Pressure 94/57 L 96/67 Blood Pressure Mean 69 76 Pulse Ox 94 98 Oxygen Delivery Method Nasal Cannula Nasal Cannula Oxygen Flow Rate (L/min) 2 2 02/16/22 14:37 02/16/22 14:47 Temperature 94.8 F L 95.0 F L Temperature Source Core Core Pulse Rate 67 64 Respiratory Rate 21 H 21 H Respiratory Effort Respiratory Pattern Blood Pressure 103/64 105/62 Blood Pressure Mean 77 76 Pulse Ox 100 99 Oxygen Delivery Method Nasal Cannula Nasal Cannula Oxygen Flow Rate (L/min) 2 2 Weight Weight: 81.9 kg Body Mass Index (BMI) 33.0 Physical Exam Narrative GENERAL: Obtunded but react to sternal rub HEENT: Atraumatic; EYES; Anicteric, Normal Conjunctiva NECK; supple, normal thyroid, RESPIRATORY: Diminished to auscultation CARDIOVASCULAR: Regular S1 S2, GI: soft, normoactive bowel sounds, : No Renal angle tenderness; EXTREMITIES: No edema, no clubbing, MUSCULOSKELETAL: no muscle wasting NEURO: Obtunded SKIN: No Rash PSYCH; obtunded Results Lab / Micro Data Result Diagrams: 02/16/22 12:58 02/16/22 13:25 Labs: Laboratory Results - last 24 hr 02/16/22 12:58: WBC 13.0 H, RBC 4.12 L, Hgb 12.5, Hct 38.0, MCV 92.2, MCH 30.3, MCHC 32.9, RDW Std Deviation 46.2 H, RDW Coeff of Jonathon 13.6, Plt Count 335, MPV 8.9, Immature Gran % (Auto) 0.800, Neut % (Auto) 89.8 H, Lymph % (Auto) 4.4 L, [place] % (Auto) 4.8, Eos % (Auto) 0.0, Baso % (Auto) 0.2, Absolute Neuts (auto) 11.7 H, Absolute Lymphs (auto) 0.57 L, Nucleated RBC % 0 02/16/22 12:58: PT Cancelled, INR Cancelled 02/16/22 12:58: Sodium Cancelled, Potassium Cancelled, Chloride Cancelled, Carbon Dioxide Cancelled, Anion Gap Cancelled, BUN Cancelled, Creatinine Cancelled, Estim Creat Clear Calc Cancelled, Est GFR (MDRD) Af Amer Cancelled, Est GFR (MDRD) Non-Af Cancelled, BUN/Creatinine Ratio Cancelled, Glucose Cancelled, Calcium Cancelled, Total Bilirubin Cancelled, Direct Bilirubin Cancelled, AST Cancelled, ALT Cancelled, Alkaline Phosphatase Cancelled, Troponin I High Sens Cancelled, Total Protein Cancelled, Albumin Cancelled, Globulin Cancelled 02/16/22 12:58: Lactic Acid 3.1 H* 02/16/22 13:25: PT 34.0 H, INR 3.4 02/16/22 13:25: Sodium 135 L, Potassium 4.9, Chloride 106, Carbon Dioxide 23.0, Anion Gap 6, BUN 24 H, Creatinine 1.77 H, Estim Creat Clear Calc 28.74, Est GFR (MDRD) Af Amer 38 L, Est GFR (MDRD) Non-Af 32 L, BUN/Creatinine Ratio 13.6, Glucose 99, Calcium 8.9, Total Bilirubin 0.50, Direct Bilirubin 0.16, AST 63 H, ALT 32, Alkaline Phosphatase 90, Troponin I High Sens 14, Total Protein 6.8, Albumin 3.8, Globulin 3.0 02/16/22 14:15: Urine Color Yellow, Urine Clarity Sl. Cloudy, Urine pH 6.0, Ur Specific [place] 1.010, Urine Protein 100 H, Urine Glucose (UA) Normal, Urine Ketones 5 H, Urine Occult Blood 250 H, Urine Nitrite Positive H, Urine Bilirubin 3 H, Urine Urobilinogen 4 H, Ur Leukocyte Esterase 100 H, Urine RBC 0 SEEN, Urine WBC 0-5 SEEN, Ur Squamous Epith Cells 0-5 SEEN, Urine Bacteria 0 SEEN, Urine Mucus 0 SEEN Radiology Impression Brain CT 02/16/22 13:00 IMPRESSION: Stable examination. No acute abnormality is seen. Electronically Signed: Miguel Lau MD at 13:55 EDT , Chest X-Ray 02/16/22 13:45 IMPRESSION: Mild increased markings at the lung bases slightly more prominent on the left side with blunting of the left costophrenic angle. Follow-up suggested. Electronically Signed: Miguel Lau MD at 13:56 EDT , Assessment & Plan Assessment/Plan (1) Sepsis: (2) Acute kidney injury: PLAN: Plan Patient is a 56-year-old with history of previous CVA with residual right-sided hemiparesis, recent diagnosis COVID 19 brought in with decreased level of sensorium. Patient was found to have elevated WBC count with lactic acidosis consistent with sepsis admitted to the intensive care unit for further management 1. Sepsis ? Evidenced by source of infection possible post-COVID bacterial pneumonia and UTI. Patient also has decreased level of sensorium elevated WBC count and lactic acidosis. Patient started on broad-spectrum antibiotic therapy with vancomycin and cefepime. Patient was initially hypotensive with systolic blood pressure in the 80s 2. Acute kidney injury ? Baseline creatinine on 12/20/2021 was 0.83 creatinine on admission was 1.77. Admitted to the intensive care unit where patient is currently being resuscitated with IV fluid with monitoring of electrolyte 3. Lactic acidosis ? Secondary to sepsis management as discussed above 4. Recent COVID-19 infection Patient was treated with Paxlovid.. Patient currently not a candidate for Decadron not requiring oxygen 5. Paroxysmal A. fib ? Rate controlled patient is on systemic anticoagulation with Coumadin INR on admission 3.4 Coumadin being held 6. Conduction system disorder status post pacemaker placement 7.? Valvular heart disease ? With history of mitral valve replacement with bioprosthetic material 8.? Hypertension -Blood pressure was low on admission antihypertensives held 9.? History of previous CVA ? With residual right-sided weakness ? PT OT as tolerated 10.? Severe protein calorie malnutrition ? Evidenced by suboptimal energy intake as well as weight loss.? This is secondary to patient chronic medical comorbidities.? Consult placed to dietitian 11.? DVT prophylaxis Patient is on warfarin continued CODE STATUS full code Total CC time spent on patient evaluating patient review of labs subsequent review with response to initial therapy; 75-minute Charges/Coding Procedures Hospitalists Procedures: 81094 Critial Care 1st Hr Multi Select Codes Hospitalists' Procedures Procedures: 23387 Critial Care Addl 30 Min
--- NOTE | 2022-02-16 14:56 | NURSING ---
ICU 1
--- NOTE | 2022-02-16 15:28 | ED.RN ---
PT MOTHER EROS- NEXT OF KIN, INFORMED OF PT ADMISSION TO ICU1.
--- NOTE | 2022-02-16 16:07 | PCM.RX.CS ---
Consult Pharmacy has been consulted to manage selected antiobiotic: Vancomycin Type of Consult: New start Suspected Infection: Sepsis Labs: Sodium 135 mmol/L (136-145) L 02/16/22 13:25 Potassium 4.9 mmol/L (3.5-5.1) 02/16/22 13:25 Chloride 106 mmol/L (98-107) 02/16/22 13:25 Carbon Dioxide 23.0 mmol/L (21.0-32.0) 02/16/22 13:25 Anion Gap 6 (5-15) 02/16/22 13:25 BUN 24 mg/dL (7-18) H 02/16/22 13:25 Creatinine 1.77 mg/dL (0.55-1.02) H 02/16/22 13:25 Est GFR (MDRD) Af Amer 38 mL/min (>60) L 02/16/22 13:25 Est GFR (MDRD) Non-Af 32 mL/min (>60) L 02/16/22 13:25 BUN/Creatinine Ratio 13.6 RATIO (10-20) 02/16/22 13:25 Glucose 99 mg/dL (74-106) 02/16/22 13:25 Microbiology: Microbiology 02/16/22 14:15 Urine Catheter - Alexis Legionella Antigen - Final 02/16/22 14:15 Urine Catheter - Alexis Streptococcus pneumoniae Antigen (M - Final Streptococcus pneumonia Ag Pharmacy Plan for Drug Dosing: NEW START IV VANCOMYCIN Consulting Physician: BLAIR Indication: SEPSIS Goal Trough: 15-20 MG/DL SrCr: 1.77 CrCl: 36 ML/MIN USING ADJUSTED BW Comments: LOADING DOSE OF 2000MG GIVEN 02/16 @ 1531 Vancomycin Dose: WILL START 1250MG Q24H (02/17 @ 1530) AND GET A LEVEL PRIOR TO THE 3RD DOSE PER POLICY. Pending Level: 02/18/22 @ 1500 Pharmacy Service will continue to monitor and adjust dosing as required.
--- NOTE | 2022-02-16 16:21 | NURSING ---
Core temp reading 94.8. pt placed on [facility]
[2022-02-16 17:08] LABS: Reflex Lactate? Y
--- NOTE | 2022-02-16 17:14 | ED.RN ---
PT PURSE PLACED IN PT BELONGING BAG AND TAKEN WITH PT TO ICU.
--- NOTE | 2022-02-16 17:19 | ED.RN ---
WILBERT VIRK INFORMED OF PT ADMISSION TO ICU.
[2022-02-16] MEDS: 0.9% Saline Lock 10 ML Syringe IV (18:21)
[2022-02-16 21:58] LABS: Lactic Acid 1.7 mmol/L (0.4-1.9)
[2022-02-16 22:13] LABS: M R Staph aureus DNA By PCR Negative (Negative); Probe Check PASS; Specimen Processing Control PASS
[2022-02-17] VITALS (19 sets, daily range): BP systolic 89–143; BP diastolic 51–89; PULSE 78–90; RESP 16–32; TEMP 36.5–37.1; O2SAT 91–98
[2022-02-17] MEDS: Acetaminophen 325 MG Tablet 650 MG PO ×2 (00:22→22:32)
[2022-02-17] MEDS: 0.9% Normal Saline 1,000 ML 150 ML IV ×4 (00:22→20:23)
[2022-02-17] MEDS: OXcarbazepine 300 MG Tablet PO ×3 (01:00→22:32)
[2022-02-17] MEDS: Mirtazapine 30 MG Tablet PO ×2 (01:00→22:32)
[2022-02-17] MEDS: ARIPiprazole 5 MG Tablet 2.5 MG PO ×3 (01:00→22:32)
[2022-02-17] MEDS: hydrOXYzine PAM 25 MG Capsule 50 MG PO ×3 (04:28→22:32)
[2022-02-17 04:29] LABS: Absolute Lymphocyte Count 0.53 X10^3/uL (0.83-4.51); Absolute Neutrophil Count 18.5 X10^3/uL (2.0-7.7); Basophil# 0.03 X10^3/uL; Basophil% 0.2 % (0-1); Hematocrit 35.5 % (37-47); Hemoglobin 12.1 g/dL (12.0-15.0); Lymphocyte # 0.53 X10^3/ul (0.83-4.51); Lymphocyte % 2.7 % (19-41); Mean Corp Hgb Conc 34.1 g/dL (32-36); Mean Corpuscular Hgb 30.9 pg (27.0-32.0); Mean Corpuscular Volume 90.6 fL (81-99); Mean Platelet Vol. 8.9 fl (6.2-12.0); Monocyte# 0.86 X10^3/uL; Monocyte% 4.3 % (0-10); NRBC Flagged by Analyzer 0 % (0-5); Neutrophil % 92.4 % (47-70); POSITIVE DIFFERENTIAL YES; Platelet Count 306 K/mm3 (150-450); RBC Distribution Width CV 13.6 % (11.6-14.6); RBC Distribution Width SD 45.5 fl (35.1-43.9); Red Blood Count 3.92 M/mm3 (4.2-5.4)
[2022-02-17 04:30] LABS: Differential Indicated SCAN CRITERIA MET
[2022-02-17 04:42] LABS: Prothrombin Time (Protime)PT. 45.5 SECONDS (11.7-14.9)
[2022-02-17 04:49] LABS: Phosphorus 3.5 mg/dL (2.5-4.9)
[2022-02-17 04:55] LABS: AST(SGOT) 145 U/L (15-37); Alanine Aminotransfer ALT/SGPT 46 U/L (13-56); Albumin, Serum 2.7 g/dL (3.2-5.0); Alkaline Phosphatase 117 U/L (45-117); Anion Gap 8 (5-15); BUN 27 mg/dL (7-18); BUN/Creat Ratio 26.7 RATIO (10-20); Bilirubin, Direct 0.14 mg/dL (0.00-0.30); Calcium,Total 7.8 mg/dL (8.5-10.1); Chloride 114 mmol/L (98-107); Creatinine, Serum 1.01 mg/dL (0.55-1.02); EST Glomerular Filtration Rate 61 mL/min (>60); Est Glom Filt Rate - Afr Amer 73 mL/min (>60); Estimated Creatinine Clearance 48.05 ml/min; Globulin 2.6 g/dL (2.2-4.2); Glucose 124 mg/dL (74-106); Magnesium 1.9 mg/dL (1.6-2.6); Potassium 3.9 mmol/L (3.5-5.1); Protein, Total 5.3 g/dL (6.4-8.2); Sodium Level 141 mmol/L (136-145); Thyroid Stim Hormone (TSH) 0.15 uIU/mL (0.358-3.74)
[2022-02-17 05:12] LABS: International Normalized Ratio 4.9
--- NOTE | 2022-02-17 06:05 | EX.PCM.CONCC ---
Assessment & Plan Assessment/Plan (1) Sepsis: PLAN: Plan RECOMMENDATIONS: 1. Continue broad-spectrum antimicrobials, while awaiting finalized infectious work-up. 2. Continue IV fluid resuscitation until p.o. intake improves. 3. Minimize sedating medications as able. 4. Encourage incentive spirometer use and mobilize patient as tolerated. IMPRESSIONS: 1. Sepsis The patient presented to the hospital with sepsis due to probable pneumonia and/or urinary tract infection with acute sepsis related organ dysfunction as evidenced by altered mentation, lactic acidemia and acute kidney injury. The patient has received supplemental IV fluid hydration and will remain on broad-spectrum antimicrobials, while awaiting finalized infectious work-up. She remains hemodynamically stable at the present time. 2. Recent COVID-19 diagnosis The patient was diagnosed with COVID-19 on February 10 and has subsequently completed a treatment course of Paxlovid. No additional work-up or intervention is required at the current time. She is maintaining appropriate oxygen saturations on room air. 3. Acute kidney injury Prerenal in etiology and related to #1. Creatinine has improved with volume expansion. Continue to monitor urine output. No current indication for renal replacement therapy. 4. Paroxysmal atrial fibrillation/coagulopathy/hypertension/history of CVA/sick sinus syndrome/bipolar disorder Complicates care, management, recovery and prognosis. Continue to hold Coumadin given supratherapeutic INR. This note was generated with [employer] dictation software. It may contain incorrect words, spelling, and punctuation that were not noted in checking the note before signing. HPI Consult Data Date of Consult: 02/17/22 HPI Narrative Reason for Consultation: Sepsis HPI Narrative: The patient is a 56-year-old female, with a history as outlined below, who presented to the emergency department on February 16 with altered mentation and supratherapeutic INR. In addition, the patient tested positive for COVID-19 approximately 1 week ago and was treated with a course of Paxlovid. Per report, the patient has been more confused and falling recently at the group home. She does have a history of bipolar disorder, valvular heart disease status post bioprosthetic mitral valve repair, prior CVA, sick sinus syndrome status post dual-chamber pacemaker and tobacco dependency. On presentation to the emergency department, the patient was noted to be afebrile with a blood pressure of 100/53 mmHg. She was initially documented to be maintaining appropriate oxygen saturations on room air. Laboratory evaluation revealed a white blood cell count of 13,000. Coagulation profile revealed a INR of 3.4. Chemistry profile was notable for a creatinine of 1.7. Lactate was elevated at 3.1. Urine analysis was positive for nitrites and leukocyte esterase. CT head revealed no acute intracranial process. Chest x-ray was clear, with the exception of blunting of the left costophrenic angle. The patient received supplemental IV fluid hydration and was placed on antimicrobials. She was subsequently admitted to the medical intensive care unit for further management. 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 Mitral regurgitation Non-ischemic cardiomyopathy Schizophrenia Sick sinus syndrome Stroke/cerebrovascular accident Unsteady gait Home Medications aspirin 81 mg tablet,delayed release (Adult Low Dose Aspirin) 81 mg PO DAILY BLOOD THINNER 11/27/20 [History Last Taken 02/16/22] clopidogrel 75 mg tablet (Plavix) 75 mg PO DAILY BLOOD THINNER 11/27/20 [History Last Taken 02/16/22] mirtazapine 30 mg tablet (Remeron) 30 mg PO QHS Check with primary doctor 03/03/21 [History Last Taken 02/15/22] oxcarbazepine 300 mg tablet (Trileptal) 300 mg PO BID SEIZURES 03/03/21 [History Last Taken 02/16/22] trazodone 150 mg tablet 150 mg PO QHS SLEEP 03/03/21 [History Last Taken 02/15/22] citalopram 10 mg tablet (Celexa) 10 mg PO DAILY DEPRESSION 04/09/21 [History Last Taken 02/16/22] cholecalciferol (vitamin D3) 125 mcg (5,000 unit) capsule 125 mcg PO DAILY supplement 12/14/21 [History Last Taken 02/16/22] docusate sodium 100 mg capsule 100 mg PO BID CONSTPATION 12/14/21 [History Last Taken 02/16/22] hydroxyzine pamoate 50 mg capsule (Vistaril) 50 mg PO TID BIPOLAR 12/14/21 [History Last Taken 02/16/22] rosuvastatin 5 mg tablet 5 mg PO QHS CHOLESTEROL 12/14/21 [History Last Taken 02/10/22] acetaminophen 500 mg tablet 500 mg PO Q6H PRN pain/fever 02/16/22 [History Last Taken Unknown] acetaminophen 500 mg tablet 500 mg PO TID PAIN 02/16/22 [History Last Taken 02/16/22] albuterol sulfate 90 mcg/actuation aerosol inhaler See Rx Instructions .Route .COMPLEX PRN coughing and wheezing 02/16/22 [History Last Taken Unknown] amlodipine 10 mg tablet 10 mg PO DAILY HTN 02/16/22 [History Last Taken 02/16/22] aripiprazole 5 mg tablet (Abilify) 2.5 mg PO BID MOOD 02/16/22 [History Last Taken 02/16/22] lorazepam 0.5 mg tablet (Ativan) 0.5 mg PO TID ANXIETY 02/16/22 [History Last Taken 02/16/22] nirmatrelvir 150 mg-ritonavir 100 mg tablets in a dose pack (EUA) (Paxlovid) 3 tab PO BID COVID 02/16/22 [History Last Taken 02/16/22] ondansetron 4 mg disintegrating tablet 4 mg PO Q6H PRN Nausea 02/16/22 [History Last Taken 02/16/22] valbenazine 80 mg capsule (Ingrezza) 80 mg PO DAILY TARDIVS DYSKINESIA 02/16/22 [History Last Taken 02/16/22] warfarin 4 mg tablet 4 mg PO QWEEK BLOOD THINNER 02/16/22 [History Last Taken Unknown] warfarin 5 mg tablet 5 mg PO SUMOTUTHFRSA 02/16/22 [History Last Taken 02/15/22] Allergy/AdvReac Type Severity Reaction Status Date / Time amoxicillin [Amoxicillin] Allergy Hives Verified 02/16/22 13:19 latex Allergy Rash Verified 02/16/22 13:19 lisinopril Allergy Unknown Verified 02/16/22 13:19 Penicillins Allergy Hives Verified 02/16/22 13:19 venom-honey bee Allergy Swelling Verified 02/16/22 13:19 [bee venom (honey bee)] ciprofloxacin [From Cipro] AdvReac Nausea/Vom/ Verified 02/16/22 13:19 Diarrhea Surgical History History of History of mitral valve replacement with bioprosthetic valve (07/23/09) History of partial colectomy Presence of cardiac pacemaker (09/21/20) Social History current occupational status: unemployed Smoking Status: Former smoker alcohol intake: current alcohol intake frequency: holidays/special occasions only substance use type: does not use caffeine: Yes Type: carbonated beverages Number of servings: 1 ROS Constitutional Constitutional: Denies chills, fatigue or fever(s) Eyes Eyes: Denies blurry vision or change in vision ENT HEENT: Denies dizziness, dysphagia, nasal discharge or sore throat Cardiovascular Cardiovascular: Denies dyspnea Respiratory/Chest Respiratory/Chest: Denies cough or dyspnea Gastrointestinal Gastrointestinal: Reports diarrhea; Denies abdominal pain Genitourinary Genitourinary: Denies difficulty urinating or urinary frequency Musculoskeletal Musculoskeletal: Denies arthralgias Integumentary Integumentary: Denies lesions, rash or skin ulcer Neurologic Neurologic: Reports confusion Psychiatric Psychiatric: Reports anxiety and depression Endocrine Endocrinology: Denies fatigue Hematologic/Lymphatic Hematologic/Lymphatic: Reports easy bruising Physical Exam Const alert General Appearance: cooperative Orientation / Consciousness: oriented to person, oriented to place and confused Nutritional Appearance: obese HEENT normocephalic and head/scalp atraumatic Eyes PERRL, EOMs intact bilaterally and conjunctivae normal Neck supple General: trachea midline Chest inspection of chest normal Resp normal respiratory effort Auscultation: diminished lung sounds; Negative for rales, rhonchi or wheezes Cardio regular rate and regular rhythm GI normal to inspection, nondistended, normoactive bowel sounds Extremity no clubbing, cyanosis or edema Skin Skin Narrative: Scattered ecchymoses Neuro moves all extremities and no focal motor deficits Psych cooperative Lab / Micro Data Result Diagrams: 02/17/22 04:20 02/17/22 04:20 Labs: Laboratory Results - last 24 hr 02/16/22 12:58: WBC 13.0 H, RBC 4.12 L, Hgb 12.5, Hct 38.0, MCV 92.2, MCH 30.3, MCHC 32.9, RDW Std Deviation 46.2 H, RDW Coeff of Jonathon 13.6, Plt Count 335, MPV 8.9, Immature Gran % (Auto) 0.800, Neut % (Auto) 89.8 H, Lymph % (Auto) 4.4 L, [place] % (Auto) 4.8, Eos % (Auto) 0.0, Baso % (Auto) 0.2, Absolute Neuts (auto) 11.7 H, Absolute Lymphs (auto) 0.57 L, Nucleated RBC % 0 02/16/22 12:58: PT Cancelled, INR Cancelled 02/16/22 12:58: Sodium Cancelled, Potassium Cancelled, Chloride Cancelled, Carbon Dioxide Cancelled, Anion Gap Cancelled, BUN Cancelled, Creatinine Cancelled, Estim Creat Clear Calc Cancelled, Est GFR (MDRD) Af Amer Cancelled, Est GFR (MDRD) Non-Af Cancelled, BUN/Creatinine Ratio Cancelled, Glucose Cancelled, Calcium Cancelled, Total Bilirubin Cancelled, Direct Bilirubin Cancelled, AST Cancelled, ALT Cancelled, Alkaline Phosphatase Cancelled, Troponin I High Sens Cancelled, Total Protein Cancelled, Albumin Cancelled, Globulin Cancelled 02/16/22 12:58: Lactic Acid 3.1 H* 02/16/22 13:25: PT 34.0 H, INR 3.4 02/16/22 13:25: Sodium 135 L, Potassium 4.9, Chloride 106, Carbon Dioxide 23.0, Anion Gap 6, BUN 24 H, Creatinine 1.77 H, Estim Creat Clear Calc 28.74, Est GFR (MDRD) Af Amer 38 L, Est GFR (MDRD) Non-Af 32 L, BUN/Creatinine Ratio 13.6, Glucose 99, Calcium 8.9, Total Bilirubin 0.50, Direct Bilirubin 0.16, AST 63 H, ALT 32, Alkaline Phosphatase 90, Troponin I High Sens 14, Total Protein 6.8, Albumin 3.8, Globulin 3.0 02/16/22 14:15: Urine Color Yellow, Urine Clarity Sl. Cloudy, Urine pH 6.0, Ur Specific [place] 1.010, Urine Protein 100 H, Urine Glucose (UA) Normal, Urine Ketones 5 H, Urine Occult Blood 250 H, Urine Nitrite Positive H, Urine Bilirubin 3 H, Urine Urobilinogen 4 H, Ur Leukocyte Esterase 100 H, Urine RBC 0 SEEN, Urine WBC 0-5 SEEN, Ur Squamous Epith Cells 0-5 SEEN, Urine Bacteria 0 SEEN, Urine Mucus 0 SEEN 02/16/22 16:15: MRSA (PCR) Negative 02/16/22 17:08: Lactic Acid Cancelled 02/16/22 20:40: Lactic Acid 1.7 02/17/22 04:20: Sodium 141, Potassium 3.9, Chloride 114 H, Carbon Dioxide 19.0 L, Anion Gap 8, BUN 27 H, Creatinine 1.01, Estim Creat Clear Calc 48.05, Est GFR (MDRD) Af Amer 73, Est GFR (MDRD) Non-Af 61, BUN/Creatinine Ratio 26.7 H, Glucose 124 H, Calcium 7.8 L, Magnesium 1.9, Total Bilirubin 0.30, Direct Bilirubin 0.14, AST 145 H, ALT 46, Alkaline Phosphatase 117, Total Protein 5.3 L, Albumin 2.7 L, Globulin 2.6, TSH 0.15 L 02/17/22 04:20: WBC 20.0 H, RBC 3.92 L, Hgb 12.1, Hct 35.5 L, MCV 90.6, MCH 30.9, MCHC 34.1, RDW Std Deviation 45.5 H, RDW Coeff of Jonathon 13.6, Plt Count 306, MPV 8.9, Immature Gran % (Auto) 0.400, Neut % (Auto) 92.4 H, Lymph % (Auto) 2.7 L, [place] % (Auto) 4.3, Eos % (Auto) 0.0, Baso % (Auto) 0.2, Absolute Neuts (auto) 18.5 H, Absolute Lymphs (auto) 0.53 L, Nucleated RBC % 0 02/17/22 04:20: PT 45.5 H, INR 4.9 H* 02/17/22 04:20: Phosphorus 3.5 Micro: Microbiology 02/16/22 16:40 Mucosa - Nasopharyngeal Rapid RSV (DFA) - Final 02/16/22 16:40 Mucosa - Nasopharyngeal Influenza Types A,B Direct FA (SAKINA) - Final 02/16/22 14:15 Urine Catheter - Alexis Legionella Antigen - Final 02/16/22 14:15 Urine Catheter - Alexis Streptococcus pneumoniae Antigen (M - Final Streptococcus pneumonia Ag Radiology Impression Brain CT 02/16/22 13:00 IMPRESSION: Stable examination. No acute abnormality is seen. Electronically Signed: Miguel Lau MD at 13:55 EDT , Chest X-Ray 02/16/22 13:45 IMPRESSION: Mild increased markings at the lung bases slightly more prominent on the left side with blunting of the left costophrenic angle. Follow-up suggested. Electronically Signed: Miguel Lau MD at 13:56 EDT , Charges/Coding Visit Charges Inpatient E&M: 37215 Init Hosp L3
[2022-02-17 06:43] LABS: T4 Free Direct 0.87 ng/dL (0.76-1.46)
--- NOTE | 2022-02-17 07:04 | PCM.RX.CS ---
Consult Pharmacy has been consulted to manage selected antiobiotic: Vancomycin Type of Consult: Follow-up Suspected Infection: Sepsis Labs: Sodium 141 mmol/L (136-145) 02/17/22 04:20 Potassium 3.9 mmol/L (3.5-5.1) 02/17/22 04:20 Chloride 114 mmol/L (98-107) H 02/17/22 04:20 Carbon Dioxide 19.0 mmol/L (21.0-32.0) L 02/17/22 04:20 Anion Gap 8 (5-15) 02/17/22 04:20 BUN 27 mg/dL (7-18) H 02/17/22 04:20 Creatinine 1.01 mg/dL (0.55-1.02) 02/17/22 04:20 Est GFR (MDRD) Af Amer 73 mL/min (>60) 02/17/22 04:20 Est GFR (MDRD) Non-Af 61 mL/min (>60) 02/17/22 04:20 BUN/Creatinine Ratio 26.7 RATIO (10-20) H 02/17/22 04:20 Glucose 124 mg/dL (74-106) H 02/17/22 04:20 Microbiology: Microbiology 02/17/22 06:25 Stool Stool Occult Blood (SAKINA) - Final Occult Blood Positive 02/16/22 16:40 Mucosa - Nasopharyngeal Rapid RSV (DFA) - Final 02/16/22 16:40 Mucosa - Nasopharyngeal Influenza Types A,B Direct FA (SAKINA) - Final 02/16/22 14:15 Urine Catheter - Alexis Legionella Antigen - Final 02/16/22 14:15 Urine Catheter - Alexis Streptococcus pneumoniae Antigen (M - Final Streptococcus pneumonia Ag Goal Trough: 15-20 mcg/mL Pharmacy Plan for Drug Dosing: DAILY ASSESSMENT Current Vancomcyin Dose: 1250MG IV Q24h Number of Doses Received: 1 (Initial ED dose, no scheduled) Current Renal Function: 1.01 / 61 mL/min Renal Function Trend: significant improvement Lab/Micro: Bcx pending Any Change in Vanc Plan: Yes, change dose to 1000mg IV Q12h based on improved renal function. Will start this dosing regimen 02/17 @0800 Pending Level: 02/18/22 @0730 Pharmacy Service will continue to monitor and adjust dosing as required.
--- NOTE | 2022-02-17 07:14 | PCM.PN.HOSP ---
Subjective Subjective Patient is a 56-year-old with history of previous CVA with residual right-sided hemiparesis, recent diagnosis COVID 19 brought in with decreased level of sensorium. Patient was found to have elevated WBC count with lactic acidosis consistent with sepsis admitted to the intensive care unit for further management 02/17/2022; patient was admitted to the intensive care unit was found to have profuse diarrhea during the night. Stool for C. difficile sent came back positive. Patient subsequently started on vancomycin. Objective Data Objective Data Vital Signs: Vital Signs Temp Pulse Resp BP Pulse Ox O2 Del Method O2 Flow Rate 98.5 F 88 18 95/81 H 98 Room Air 1 02/17/22 00:00 02/17/22 07:00 02/17/22 07:00 02/17/22 07:00 02/17/22 07:00 02/17/22 07:00 02/17/22 03:00 Oxygen Flow Rate (L/min) 1 Oxygen Delivery Method Room Air Weight: 80.8 kg Body Mass Index (BMI) 33.2 Intake & Output: Intake and Output for Last 24 Hours 02/15/22 02/16/22 02/17/22 23:59 23:59 23:59 Intake Total 4242.5 / 4242.5 737.5 / 737.5 Output Total 1300 / 1425 225 / 225 Balance 2942.5 / 2817.5 512.5 / 512.5 Lab / Micro Data Result Diagrams: 02/17/22 04:20 02/17/22 04:20 Labs: Laboratory Results - last 24 hr 02/16/22 12:58: WBC 13.0 H, RBC 4.12 L, Hgb 12.5, Hct 38.0, MCV 92.2, MCH 30.3, MCHC 32.9, RDW Std Deviation 46.2 H, RDW Coeff of Jonathon 13.6, Plt Count 335, MPV 8.9, Immature Gran % (Auto) 0.800, Neut % (Auto) 89.8 H, Lymph % (Auto) 4.4 L, [place] % (Auto) 4.8, Eos % (Auto) 0.0, Baso % (Auto) 0.2, Absolute Neuts (auto) 11.7 H, Absolute Lymphs (auto) 0.57 L, Nucleated RBC % 0 02/16/22 12:58: PT Cancelled, INR Cancelled 02/16/22 12:58: Sodium Cancelled, Potassium Cancelled, Chloride Cancelled, Carbon Dioxide Cancelled, Anion Gap Cancelled, BUN Cancelled, Creatinine Cancelled, Estim Creat Clear Calc Cancelled, Est GFR (MDRD) Af Amer Cancelled, Est GFR (MDRD) Non-Af Cancelled, BUN/Creatinine Ratio Cancelled, Glucose Cancelled, Calcium Cancelled, Total Bilirubin Cancelled, Direct Bilirubin Cancelled, AST Cancelled, ALT Cancelled, Alkaline Phosphatase Cancelled, Troponin I High Sens Cancelled, Total Protein Cancelled, Albumin Cancelled, Globulin Cancelled 02/16/22 12:58: Lactic Acid 3.1 H* 02/16/22 13:25: PT 34.0 H, INR 3.4 02/16/22 13:25: Sodium 135 L, Potassium 4.9, Chloride 106, Carbon Dioxide 23.0, Anion Gap 6, BUN 24 H, Creatinine 1.77 H, Estim Creat Clear Calc 28.74, Est GFR (MDRD) Af Amer 38 L, Est GFR (MDRD) Non-Af 32 L, BUN/Creatinine Ratio 13.6, Glucose 99, Calcium 8.9, Total Bilirubin 0.50, Direct Bilirubin 0.16, AST 63 H, ALT 32, Alkaline Phosphatase 90, Troponin I High Sens 14, Total Protein 6.8, Albumin 3.8, Globulin 3.0 02/16/22 14:15: Urine Color Yellow, Urine Clarity Sl. Cloudy, Urine pH 6.0, Ur Specific [place] 1.010, Urine Protein 100 H, Urine Glucose (UA) Normal, Urine Ketones 5 H, Urine Occult Blood 250 H, Urine Nitrite Positive H, Urine Bilirubin 3 H, Urine Urobilinogen 4 H, Ur Leukocyte Esterase 100 H, Urine RBC 0 SEEN, Urine WBC 0-5 SEEN, Ur Squamous Epith Cells 0-5 SEEN, Urine Bacteria 0 SEEN, Urine Mucus 0 SEEN 02/16/22 16:15: MRSA (PCR) Negative 02/16/22 17:08: Lactic Acid Cancelled 02/16/22 20:40: Lactic Acid 1.7 02/17/22 04:20: Sodium 141, Potassium 3.9, Chloride 114 H, Carbon Dioxide 19.0 L, Anion Gap 8, BUN 27 H, Creatinine 1.01, Estim Creat Clear Calc 48.05, Est GFR (MDRD) Af Amer 73, Est GFR (MDRD) Non-Af 61, BUN/Creatinine Ratio 26.7 H, Glucose 124 H, Calcium 7.8 L, Magnesium 1.9, Total Bilirubin 0.30, Direct Bilirubin 0.14, AST 145 H, ALT 46, Alkaline Phosphatase 117, Total Protein 5.3 L, Albumin 2.7 L, Globulin 2.6, TSH 0.15 L 02/17/22 04:20: WBC 20.0 H, RBC 3.92 L, Hgb 12.1, Hct 35.5 L, MCV 90.6, MCH 30.9, MCHC 34.1, RDW Std Deviation 45.5 H, RDW Coeff of Jonathon 13.6, Plt Count 306, MPV 8.9, Immature Gran % (Auto) 0.400, Neut % (Auto) 92.4 H, Lymph % (Auto) 2.7 L, [place] % (Auto) 4.3, Eos % (Auto) 0.0, Baso % (Auto) 0.2, Absolute Neuts (auto) 18.5 H, Absolute Lymphs (auto) 0.53 L, Nucleated RBC % 0 02/17/22 04:20: PT 45.5 H, INR 4.9 H* 02/17/22 04:20: Phosphorus 3.5 02/17/22 04:20: Free T4 0.87 Micro: Microbiology 02/17/22 06:25 Stool Stool Occult Blood (SAKINA) - Final Occult Blood Positive 02/16/22 16:40 Mucosa - Nasopharyngeal Rapid RSV (DFA) - Final 02/16/22 16:40 Mucosa - Nasopharyngeal Influenza Types A,B Direct FA (SAKINA) - Final 02/16/22 14:15 Urine Catheter - Alexis Legionella Antigen - Final 02/16/22 14:15 Urine Catheter - Alexis Streptococcus pneumoniae Antigen (M - Final Streptococcus pneumonia Ag Radiography Diagnostic Testing: Radiology Impression Brain CT 02/16/22 13:00 IMPRESSION: Stable examination. No acute abnormality is seen. Electronically Signed: Miguel Lau MD at 13:55 EDT , Chest X-Ray 02/16/22 13:45 IMPRESSION: Mild increased markings at the lung bases slightly more prominent on the left side with blunting of the left costophrenic angle. Follow-up suggested. Electronically Signed: Miguel Lau MD at 13:56 EDT , Physical Exam Narrative GENERAL: Patient awake able to answer questions, remains lethargic HEENT: Atraumatic; EYES; Anicteric, Normal Conjunctiva NECK; supple, normal thyroid, RESPIRATORY: Diminished to auscultation CARDIOVASCULAR: Regular S1 S2, GI: soft, normoactive bowel sounds, : No Renal angle tenderness; EXTREMITIES: No edema, no clubbing, MUSCULOSKELETAL: no muscle wasting NEURO: Grossly intact no lateralizing signs SKIN: No Rash PSYCH; obtunded Assessment & Plan Assessment/Plan (1) Sepsis: (2) Acute kidney injury: PLAN: Plan Patient is a 56-year-old with history of previous CVA with residual right-sided hemiparesis, recent diagnosis COVID 19 brought in with decreased level of sensorium. Patient was found to have elevated WBC count with lactic acidosis consistent with sepsis admitted to the intensive care unit for further management 1. Sepsis ? Evidenced by source of infection possible post-COVID bacterial pneumonia and UTI. Patient also has decreased level of sensorium elevated WBC count and lactic acidosis. Patient started on broad-spectrum antibiotic therapy with vancomycin and cefepime. Patient was initially hypotensive with systolic blood pressure in the 80s 2. Acute C. difficile colitis ? Patient started on p.o. vancomycin 3. Acute cystitis ? Patient had positive nitrite and positive leukocyte esterase she however did not have any pyuria. Awaiting urine cultures if comes back negative would not hesitate to discontinue antibiotics 4. Acute kidney injury ? Baseline creatinine on 12/20/2021 was 0.83 creatinine on admission was 1.77. Admitted to the intensive care unit where patient is currently being resuscitated with IV fluid with monitoring of electrolyte -02/17/2022; creatinine down to 1.0 5. Lactic acidosis ? Secondary to sepsis management as discussed above 6. Recent COVID-19 infection Patient was treated with Paxlovid.. Patient currently not a candidate for Decadron not requiring oxygen 7. Paroxysmal A. fib ? Rate controlled patient is on systemic anticoagulation with Coumadin INR on admission 3.4 Coumadin being held 8.? Hypertension -Blood pressure was low on admission antihypertensives held 9.? History of previous CVA ? With residual right-sided weakness ? PT OT as tolerated 10.? Severe protein calorie malnutrition ? Evidenced by suboptimal energy intake as well as weight loss.? This is secondary to patient chronic medical comorbidities.? Consult placed to dietitian 11.? 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 Valvular heart disease ? With history of mitral valve replacement with bioprosthetic material 13. DVT prophylaxis Patient is on warfarin continued CODE STATUS full code Charges/Coding Visit Charges Inpatient E&M: 27539 Subs Hosp L3
[2022-02-17] MEDS: Vancomycin IV 1,000 MG/200 ML BAG 200 MG IV (07:50)
[2022-02-17] MEDS: Menthol/Lanolin/Calamine/Znox 113 GM Tube 1 APPLIC TOPICAL ×2 (07:51→22:33)
[2022-02-17] MEDS: Citalopram 10 MG Tablet PO (07:52)
[2022-02-17] MEDS: Cholecalciferol (Vit D3) 125 MCG CAPSULE (5,000 UNITS) PO (07:52)
[2022-02-17] MEDS: Aspirin E.C. 81 MG Tablet PO (08:44)
[2022-02-17] MEDS: Clopidogrel Bisulfate 75 MG Tablet PO (08:44)
--- NOTE | 2022-02-17 10:15 | CASEMGMT ---
Discharge Repair [employer] Jo Ann Jaffe/s[employer] faxed over patient updates to Iraida at [facility]. Jo Ann Basurto Discharge Repair [employer]
[2022-02-17] MEDS: Vancomycin HCl 250 MG Capsule 500 MG PO ×3 (11:28→22:32)
[2022-02-17] MEDS: Atorvastatin Calcium 10 MG Tablet PO (22:32)
[2022-02-17] MEDS: Albuterol 2.5 MG/3 ML VIAL.NEB. INHALATION (23:27)
[2022-02-18] VITALS (8 sets, daily range): BP systolic 92–132; BP diastolic 44–68; PULSE 80–93; RESP 18–22; TEMP 36.2–37.6; O2SAT 94–98
[2022-02-18] MEDS: hydrOXYzine PAM 25 MG Capsule 50 MG PO ×3 (06:07→22:14)
[2022-02-18] MEDS: Vancomycin HCl 250 MG Capsule 500 MG PO ×3 (06:07→17:24)
--- NOTE | 2022-02-18 07:15 | PN.HOSP_ITS ---
Subjective Subjective Patient seen still not requiring oxygen. Nursing staff patient has had several loose bowel movement Objective Data Objective Data Vital Signs: Vital Signs Temp Pulse Resp BP Pulse Ox O2 Del Method O2 Flow Rate 97.9 F 87 20 H 112/62 94 Room Air 1 02/18/22 03:43 02/18/22 03:43 02/18/22 03:43 02/18/22 03:43 02/18/22 03:43 02/18/22 03:45 02/17/22 03:00 Oxygen Flow Rate (L/min) 1 Oxygen Delivery Method Room Air Weight: 82.645 kg Body Mass Index (BMI) 33.2 Intake & Output: Intake and Output for Last 24 Hours 02/16/22 02/17/22 02/18/22 23:59 23:59 23:59 Intake Total 4242.5 / 4242.5 3417.5 / 3417.5 1000 / 1000 Output Total 1300 / 1425 660 / 660 350 / 350 Balance 2942.5 / 2817.5 2757.5 / 2757.5 650 / 650 Lab / Micro Data Result Diagrams: 02/17/22 04:20 02/17/22 04:20 Micro: Microbiology 02/16/22 14:15 Urine, Catheterized Urine Culture - Preliminary Gram negative joselito 02/17/22 06:25 Stool C. difficile GDH Antigen & Toxins - Final 02/17/22 06:25 Stool C. difficile DNA Amplification - Final 02/17/22 06:25 Stool Stool Occult Blood (SAKINA) - Final Occult Blood Positive 02/16/22 16:40 Mucosa - Nasopharyngeal Rapid RSV (DFA) - Final 02/16/22 16:40 Mucosa - Nasopharyngeal Influenza Types A,B Direct FA (SAKINA) - Final 02/16/22 14:15 Urine Catheter - Alexis Legionella Antigen - Final 02/16/22 14:15 Urine Catheter - Alexis Streptococcus pneumoniae Antigen (M - Final Streptococcus pneumonia Ag Physical Exam Narrative GENERAL: Patient awake able to answer questions, HEENT: Atraumatic; EYES; Anicteric, Normal Conjunctiva NECK; supple, normal thyroid, RESPIRATORY: Diminished to auscultation CARDIOVASCULAR: Regular S1 S2, GI: soft, normoactive bowel sounds, : No Renal angle tenderness; EXTREMITIES: No edema, no clubbing, MUSCULOSKELETAL: no muscle wasting NEURO: Grossly intact no lateralizing signs SKIN: No Rash PSYCH; obtunded Assessment & Plan Assessment/Plan (1) Sepsis: (2) Acute kidney injury: PLAN: Plan Patient is a 56-year-old with history of previous CVA with residual right-sided hemiparesis, recent diagnosis COVID 19 brought in with decreased level of sensorium. Patient was found to have elevated WBC count with lactic acidosis consistent with sepsis admitted to the intensive care unit for further management 1. Sepsis ? Evidenced by source of infection possible post-COVID bacterial pneumonia and UTI. Patient also has decreased level of sensorium elevated WBC count and lactic acidosis. Patient started on broad-spectrum antibiotic therapy with vancomycin and cefepime. Patient was initially hypotensive with systolic blood pressure in the 80s -02/18/2022 patient did not require pressors responded to fluids. Stabilized subsequently transferred from intensive care unit to [facility] unit 2. Acute C. difficile colitis ? Patient started on p.o. vancomycin 3. Acute cystitis ? Patient had positive nitrite and positive leukocyte esterase she however did not have any pyuria. Awaiting urine cultures if comes back negative would not hesitate to discontinue antibiotics -Patient urine culture so far positive for gram-negative rods final identification and sensitivities pending 4. Suspected pneumonia ? Patient urine antigen assay came back positive for strep pneumo patient remains on cefepime 5. Acute kidney injury ? Baseline creatinine on 12/20/2021 was 0.83 creatinine on admission was 1.77. Admitted to the intensive care unit where patient is currently being resuscitated with IV fluid with monitoring of electrolyte -02/17/2022; creatinine down to 1.0 6. Recent COVID-19 infection Patient was treated with Paxlovid.. Patient currently not a candidate for Decadron not requiring oxygen 7. Paroxysmal A. fib ? Rate controlled patient is on systemic anticoagulation with Coumadin INR on admission 3.4 Coumadin being held 8.? Hypertension -Blood pressure was low on admission antihypertensives held 9.? History of previous CVA ? With residual right-sided weakness ? PT OT as tolerated 10.? Severe protein calorie malnutrition ? Evidenced by suboptimal energy intake as well as weight loss.? This is secondary to patient chronic medical comorbidities.? Consult placed to dietitian 11.? 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 Valvular heart disease ? With history of mitral valve replacement with bioprosthetic material 13. DVT prophylaxis Patient is on warfarin continued CODE STATUS full code Charges/Coding Visit Charges Inpatient E&M: 01223 Subs Hosp L2
--- NOTE | 2022-02-18 08:15 | PCM.PN.INT ---
Assessment & Plan Assessment/Plan (1) Sepsis: PLAN: Plan RECOMMENDATIONS: 1. Continue antimicrobials to complete 7 days of therapy. 2. Continue to hold Coumadin and check INR daily. 3. Encourage incentive spirometer use and mobilize patient as tolerated. 4. Will sign off from a pulmonary/critical care perspective. Please call with any additional questions. IMPRESSIONS: 1. Sepsis The patient presented to the hospital with sepsis due to pneumococcal pneumonia with acute sepsis related organ dysfunction as evidenced by altered mentation, lactic acidemia and acute kidney injury. The patient has received supplemental IV fluid hydration with resolution of her JETT and lactic acidemia. Plan to continue antimicrobials for 7 days of therapy. The patient remains hemodynamically stable. 2. Recent COVID-19 diagnosis The patient was diagnosed with COVID-19 on February 10 and has subsequently completed a treatment course of Paxlovid. No additional work-up or intervention is required at the current time. She is maintaining appropriate oxygen saturations on room air. 3. Acute kidney injury Improved. Prerenal in etiology and related to #1. Creatinine has improved with volume expansion. Continue to monitor urine output. No current indication for renal replacement therapy. 4. Paroxysmal atrial fibrillation/coagulopathy/hypertension/history of CVA/sick sinus syndrome/bipolar disorder Complicates care, management, recovery and prognosis. Continue to hold Coumadin given supratherapeutic INR. This note was generated with [employer] dictation software. It may contain incorrect words, spelling, and punctuation that were not noted in checking the note before signing. Subjective Subjective The patient was seen and examined at the bedside this morning. Events from the last 24 hours have been reviewed. The patient is currently afebrile, hemodynamically stable and maintaining appropriate oxygen saturations on room air. The patient is documented to be overall net +6.3 L for the hospitalization. INR remains elevated at 7.1. Creatinine is stable. Objective Data Objective Data The patient's most recent lab work, culture data and imaging studies have all been personally reviewed. Surface echocardiogram from October 2020 demonstrated an ejection fraction of 40 to 45%. Stool for occult blood was positive. Streptococcus urinary antigen was positive. Vital Signs: Vital Signs Temp Pulse Resp BP Pulse Ox O2 Del Method O2 Flow Rate 97.9 F 87 20 H 112/62 94 Room Air 1 02/18/22 03:43 02/18/22 03:43 02/18/22 03:43 02/18/22 03:43 02/18/22 03:43 02/18/22 07:42 02/17/22 03:00 Oxygen Flow Rate (L/min) 1 Oxygen Delivery Method Room Air Weight: 182 lb 3.2 oz Body Mass Index (BMI) 33.2 Intake & Output: Intake and Output for Last 24 Hours 02/16/22 02/17/22 02/18/22 23:59 23:59 23:59 Intake Total 4242.5 / 4242.5 3417.5 / 3417.5 1000 / 1000 Output Total 1300 / 1425 660 / 660 350 / 350 Balance 2942.5 / 2817.5 2757.5 / 2757.5 650 / 650 Lab / Micro Data Attestation: I reviewed the patient's lab results. Result Diagrams: 02/18/22 07:50 02/18/22 07:50 Micro: Microbiology 02/16/22 13:25 Blood Culture (Wb) - Anticubital Left Blood Culture - Preliminary No growth in 48 hours. 02/16/22 12:58 Blood Culture (Wb) - Left Hand Blood Culture - Preliminary No growth in 48 hours. 02/16/22 14:15 Urine, Catheterized Urine Culture - Preliminary Gram negative joselito 02/17/22 06:25 Stool C. difficile GDH Antigen & Toxins - Final 02/17/22 06:25 Stool C. difficile DNA Amplification - Final 02/17/22 06:25 Stool Stool Occult Blood (SAKINA) - Final Occult Blood Positive 02/16/22 16:40 Mucosa - Nasopharyngeal Rapid RSV (DFA) - Final 02/16/22 16:40 Mucosa - Nasopharyngeal Influenza Types A,B Direct FA (SAKINA) - Final 02/16/22 14:15 Urine Catheter - Alexis Legionella Antigen - Final 02/16/22 14:15 Urine Catheter - Alexis Streptococcus pneumoniae Antigen (M - Final Streptococcus pneumonia Ag Physical Exam Const alert General Appearance: cooperative Orientation / Consciousness: confused Nutritional Appearance: obese HEENT normocephalic and head/scalp atraumatic Eyes PERRL, EOMs intact bilaterally and conjunctivae normal Neck supple General: trachea midline Chest inspection of chest normal Resp normal respiratory effort Auscultation: diminished lung sounds; Negative for rales, rhonchi or wheezes Cardio regular rate and regular rhythm GI normal to inspection, nondistended, normoactive bowel sounds Extremity no clubbing, cyanosis or edema Skin Skin Narrative: Scattered ecchymoses Neuro moves all extremities and no focal motor deficits Psych cooperative Charges/Coding Visit Charges Inpatient E&M: 64587 Subs Hosp L2
[2022-02-18 08:21] LABS: Absolute Lymphocyte Count 0.63 X10^3/uL (0.83-4.51); Absolute Neutrophil Count 12.6 X10^3/uL (2.0-7.7); Basophil# 0.02 X10^3/uL; Basophil% 0.1 % (0-1); Eosinophil# 0.02 X10^3/uL; Eosinophils% 0.1 % (0-5); Hematocrit 27.8 % (37-47); Hemoglobin 9.4 g/dL (12.0-15.0); Lymphocyte # 0.63 X10^3/ul (0.83-4.51); Lymphocyte % 4.4 % (19-41); Mean Corp Hgb Conc 33.8 g/dL (32-36); Mean Corpuscular Volume 91.7 fL (81-99); Mean Platelet Vol. 9.4 fl (6.2-12.0); Monocyte% 6.3 % (0-10); NRBC Flagged by Analyzer 0 % (0-5); Neutrophil # 12.64 X10^3/uL (2.7-7.7); Neutrophil % 88.7 % (47-70); POSITIVE MORPHOLOGY YES; Platelet Count 252 K/mm3 (150-450); RBC Distribution Width CV 14.1 % (11.6-14.6); RBC Distribution Width SD 47.1 fl (35.1-43.9); Red Blood Count 3.03 M/mm3 (4.2-5.4); White Blood Count 14.3 K/mm3 (4.4-11.0)
[2022-02-18 08:23] LABS: Differential Indicated SCAN CRITERIA MET
[2022-02-18 08:45] LABS: Allen Test Positive; Base Excess -10 mmol/L (-2 to +2); Bicarbonate 15.4 mmol/L (22-26); Blood Gas Specimen Type ART; PO2 76 mmHG (75-100); SITE R Radial; SO2 95 % (95-99); Total Carbon Dioxide 16 mmol/L; pCO2 27.2 mmHg (35-45); pH 7.36 (7.35-7.45)
[2022-02-18 08:49] LABS: Differential Comment SCANNED
[2022-02-18 08:53] LABS: Prothrombin Time (Protime)PT. 61.4 SECONDS (11.7-14.9)
[2022-02-18 09:02] LABS: International Normalized Ratio 7.1
[2022-02-18 09:09] LABS: Anion Gap 7 (5-15); BUN 31 mg/dL (7-18); BUN/Creat Ratio 36.1 RATIO (10-20); Calcium,Total 7.9 mg/dL (8.5-10.1); Chloride 116 mmol/L (98-107); Creatinine, Serum 0.86 mg/dL (0.55-1.02); EST Glomerular Filtration Rate 73 mL/min (>60); Est Glom Filt Rate - Afr Amer 88 mL/min (>60); Estimated Creatinine Clearance 56.43 ml/min; Glucose 97 mg/dL (74-106); Potassium 3.9 mmol/L (3.5-5.1); Sodium Level 142 mmol/L (136-145)
[2022-02-18] MEDS: Docusate Sodium 100 MG Capsule PO (09:55)
[2022-02-18] MEDS: OXcarbazepine 300 MG Tablet PO ×2 (09:55→22:14)
[2022-02-18] MEDS: Cholecalciferol (Vit D3) 125 MCG CAPSULE (5,000 UNITS) PO (09:55)
[2022-02-18] MEDS: 0.9% Saline Lock 10 ML Syringe IV ×2 (09:55→22:14)
[2022-02-18] MEDS: ARIPiprazole 5 MG Tablet 2.5 MG PO ×2 (09:58→22:14)
[2022-02-18] MEDS: Menthol/Lanolin/Calamine/Znox 113 GM Tube 1 APPLIC TOPICAL ×2 (09:59→22:16)
[2022-02-18] MEDS: Citalopram 10 MG Tablet PO (10:00)
[2022-02-18] MEDS: Aspirin E.C. 81 MG Tablet PO (10:04)
[2022-02-18] MEDS: Clopidogrel Bisulfate 75 MG Tablet PO (10:04)
[2022-02-18] MEDS: Acetaminophen 325 MG Tablet 650 MG PO ×2 (10:11→17:32)
--- NOTE | 2022-02-18 13:05 | CASEMGMT ---
Social Work Pt is a current resident at [facility]. Phone call to [facility] and spoke to Angela who states pt is half-way and can return when medically ready. Phone call to pt mother who confirms the plan is to return to [facility]. Plan: [facility], When medically ready ERROL Wooten
[2022-02-18] MEDS: Albuterol 2.5 MG/3 ML VIAL.NEB. INHALATION ×2 (13:45→17:43)
--- NOTE | 2022-02-18 17:29 | NURSING ---
02 added for comfort.
[2022-02-18] MEDS: Mirtazapine 30 MG Tablet PO (22:14)
[2022-02-18] MEDS: Atorvastatin Calcium 10 MG Tablet PO (22:14)
[2022-02-19] MEDS: Vancomycin HCl 250 MG Capsule 500 MG PO ×5 (00:15→23:48)
[2022-02-19] MEDS: Acetaminophen 325 MG Tablet 650 MG PO (04:24)
[2022-02-19 05:00] VITALS: BP 109/61; PULSE 79; RESP 18; TEMP 37.3; O2SAT 97
[2022-02-19] MEDS: hydrOXYzine PAM 25 MG Capsule 50 MG PO ×3 (05:57→22:13)
[2022-02-19 07:11] LABS: Absolute Lymphocyte Count 1.01 X10^3/uL (0.83-4.51); Absolute Neutrophil Count 13.1 X10^3/uL (2.0-7.7); Basophil# 0.06 X10^3/uL; Basophil% 0.4 % (0-1); Eosinophil# 0.13 X10^3/uL; Eosinophils% 0.9 % (0-5); Hematocrit 25.2 % (37-47); Hemoglobin 8.4 g/dL (12.0-15.0); Lymphocyte # 1.01 X10^3/ul (0.83-4.51); Lymphocyte % 6.7 % (19-41); Mean Corp Hgb Conc 33.3 g/dL (32-36); Mean Platelet Vol. 9.2 fl (6.2-12.0); Monocyte# 0.65 X10^3/uL; Monocyte% 4.3 % (0-10); NRBC Flagged by Analyzer 0 % (0-5); Neutrophil % 86.2 % (47-70); POSITIVE MORPHOLOGY YES; Platelet Count 278 K/mm3 (150-450); RBC Distribution Width CV 14.1 % (11.6-14.6); Red Blood Count 2.71 M/mm3 (4.2-5.4); White Blood Count 15.2 K/mm3 (4.4-11.0)
--- NOTE | 2022-02-19 07:21 | PN.HOSP_ITS ---
Subjective Subjective Patient seen still having loose bowel movement.. Her dark stools the day prior, stool for occult blood came back positive Objective Data Objective Data Vital Signs: Vital Signs Temp Pulse Resp BP Pulse Ox O2 Del Method O2 Flow Rate 99.1 F 79 18 109/61 97 Room Air 1 02/19/22 05:00 02/19/22 05:00 02/19/22 05:00 02/19/22 05:00 02/19/22 05:00 02/19/22 05:00 02/18/22 17:43 Oxygen Flow Rate (L/min) 1 Oxygen Delivery Method Room Air Weight: 81.3 kg Body Mass Index (BMI) 33.2 Intake & Output: Intake and Output for Last 24 Hours 02/17/22 02/18/22 02/19/22 23:59 23:59 23:59 Intake Total 3417.5 / 3417.5 1800 / 1800 500 / 500 Output Total 660 / 660 750 / 1000 550 / 550 Balance 2757.5 / 2757.5 1050 / 800 -50 / -50 Lab / Micro Data Result Diagrams: 02/19/22 07:02 02/19/22 07:02 Labs: Laboratory Results - last 24 hr 02/18/22 07:50: Sodium 142, Potassium 3.9, Chloride 116 H, Carbon Dioxide 19.0 L , Anion Gap 7, BUN 31 H, Creatinine 0.86, Estim Creat Clear Calc 56.43, Est GFR (MDRD) Af Amer 88, Est GFR (MDRD) Non-Af 73, BUN/Creatinine Ratio 36.1 H, Glucose 97, Calcium 7.9 L 02/18/22 07:50: WBC 14.3 H, RBC 3.03 L, Hgb 9.4 L, Hct 27.8 L, MCV 91.7, MCH 31.0, MCHC 33.8, RDW Std Deviation 47.1 H, RDW Coeff of Jonathon 14.1, Plt Count 252, MPV 9.4, Immature Gran % (Auto) 0.400, Neut % (Auto) 88.7 H, Lymph % (Auto) 4.4 L, [place] % (Auto) 6.3, Eos % (Auto) 0.1, Baso % (Auto) 0.1, Absolute Neuts (auto) 12.6 H, Absolute Lymphs (auto) 0.63 L, Nucleated RBC % 0, Differential Comment SCANNED 02/18/22 07:50: PT 61.4 H, INR 7.1 H* 02/18/22 07:50: Vancomycin Trough 6.0 Micro: Microbiology 02/16/22 14:15 Urine, Catheterized Urine Culture - Final Proteus mirabilis 02/16/22 13:25 Blood Culture (Wb) - Anticubital Left Blood Culture - Preliminary No growth in 48 hours. 02/16/22 12:58 Blood Culture (Wb) - Left Hand Blood Culture - Preliminary No growth in 48 hours. 02/17/22 06:25 Stool C. difficile GDH Antigen & Toxins - Final 02/17/22 06:25 Stool C. difficile DNA Amplification - Final 02/17/22 06:25 Stool Stool Occult Blood (SAKINA) - Final Occult Blood Positive 02/16/22 16:40 Mucosa - Nasopharyngeal Rapid RSV (DFA) - Final 02/16/22 16:40 Mucosa - Nasopharyngeal Influenza Types A,B Direct FA (SAKINA) - Final 02/16/22 14:15 Urine Catheter - Alexis Legionella Antigen - Final 02/16/22 14:15 Urine Catheter - Alexis Streptococcus pneumoniae Antigen (M - Final Streptococcus pneumonia Ag ABG Data ABG results: ABG 02/16/22 16:45 Specimen Type ART Sample Site R Radial pH 7.36 Bicarbonate Actual 15.4 L Total CO2 16 Base Excess -10 L O2 Saturation 95 ABG pCO2 27.2 L ABG pO2 76 Marcial Test Positive Liter Flow 2.0 Physical Exam Narrative GENERAL: Patient awake able to answer questions, HEENT: Atraumatic; EYES; Anicteric, Normal Conjunctiva NECK; supple, normal thyroid, RESPIRATORY: Diminished to auscultation CARDIOVASCULAR: Regular S1 S2, GI: soft, normoactive bowel sounds, : No Renal angle tenderness; EXTREMITIES: No edema, no clubbing, MUSCULOSKELETAL: no muscle wasting NEURO: Grossly intact no lateralizing signs SKIN: No Rash PSYCH; obtunded Assessment & Plan Assessment/Plan (1) Sepsis: (2) Acute kidney injury: PLAN: Plan Patient is a 56-year-old with history of previous CVA with residual right-sided hemiparesis, recent diagnosis COVID 19 brought in with decreased level of s ensorium. Patient was found to have elevated WBC count with lactic acidosis consistent with sepsis admitted to the intensive care unit for further management 1. Sepsis ? Evidenced by source of infection possible post-COVID bacterial pneumonia and UTI. Patient also has decreased level of sensorium elevated WBC count and lactic acidosis. Patient started on broad-spectrum antibiotic therapy with vancomycin and cefepime. Patient was initially hypotensive with systolic blood pressure in the 80s -02/18/2022 patient did not require pressors responded to fluids. Stabilized subsequently transferred from intensive care unit to [facility] unit ? 02/19/2022 sepsis resolved 2. Acute C. difficile colitis ? Patient started on p.o. vancomycin ? 02/19/2022; remains on vancomycin but still remains symptomatic 3. Acute cystitis ? Patient had positive nitrite and positive leukocyte esterase she however did not have any pyuria. Awaiting urine cultures if comes back negative would not hesitate to discontinue antibiotics -Patient urine culture so far positive for gram-negative rods final identificati on and sensitivities pending ? 02/19/2022 urine cultures came back positive for Proteus mirabilis however colony count was not significant less than thousand CFU per mL 4. Suspected pneumonia ? Patient urine antigen assay came back positive for strep pneumo patient remains on cefepime 5. Acute kidney injury ? Baseline creatinine on 12/20/2021 was 0.83 creatinine on admission was 1.77. Admitted to the intensive care unit where patient is currently being resuscitated with IV fluid with monitoring of electrolyte -02/17/2022; creatinine down to 1.0 6. Recent COVID-19 infection Patient was treated with Paxlovid.. Patient currently not a candidate for Decadron not requiring oxygen 7. Paroxysmal A. fib ? Rate controlled patient is on systemic anticoagulation with Coumadin INR on admission 3.4 Coumadin being held ? 02/19/2022. INR. 7.1 down to 4.3 8. Anemia ? Secondary to acute blood loss anemia from GI bleed as a result of patient coagulopathy. INR was as high as 7.1. Coumadin on hold we will continue with monitoring of H&H. Patient may need to undergo endoscopic evaluation prior to reinitiation of her warfarin. We will continue with monitoring of H&H and transfuse if patient is in to be symptomatic or hemoglobin falls below 7. Consult has been placed to GI. 9.? Hypertension -Blood pressure was low on admission antihypertensives held 10.? History of previous CVA ? With residual right-sided weakness ? PT OT as tolerated 11.? Severe protein calorie malnutrition ? Evidenced by suboptimal energy intake as well as weight loss.? This is secondary to patient chronic medical comorbidities.? Consult placed to dietitian 12.? 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 Valvular heart disease ? With history of mitral valve replacement with bioprosthetic material 15. DVT prophylaxis Patient is on warfarin CODE STATUS full code
[2022-02-19 07:30] VITALS: O2SAT 96
[2022-02-19 07:31] LABS: Anion Gap 4 (5-15); BUN 29 mg/dL (7-18); BUN/Creat Ratio 41.9 RATIO (10-20); Calcium,Total 8.1 mg/dL (8.5-10.1); Chloride 117 mmol/L (98-107); Creatinine, Serum 0.69 mg/dL (0.55-1.02); EST Glomerular Filtration Rate 94 mL/min (>60); Est Glom Filt Rate - Afr Amer 114 mL/min (>60); Estimated Creatinine Clearance 70.33 ml/min; Glucose 89 mg/dL (74-106); Sodium Level 141 mmol/L (136-145)
[2022-02-19 07:43] VITALS: BP 125/64; PULSE 83; RESP 20; TEMP 36.9; O2SAT 95
[2022-02-19 07:49] LABS: Differential Indicated SCAN CRITERIA MET
[2022-02-19 08:17] LABS: International Normalized Ratio 4.3; Prothrombin Time (Protime)PT. 40.6 SECONDS (11.7-14.9)
[2022-02-19] MEDS: Menthol/Lanolin/Calamine/Znox 113 GM Tube 1 APPLIC TOPICAL ×2 (08:21→22:00)
[2022-02-19] MEDS: Aspirin E.C. 81 MG Tablet PO (10:35)
[2022-02-19] MEDS: ARIPiprazole 5 MG Tablet 2.5 MG PO ×2 (10:35→22:01)
[2022-02-19] MEDS: OXcarbazepine 300 MG Tablet PO ×2 (10:35→22:01)
[2022-02-19] MEDS: Cholecalciferol (Vit D3) 125 MCG CAPSULE (5,000 UNITS) PO (10:35)
[2022-02-19] MEDS: Clopidogrel Bisulfate 75 MG Tablet PO (10:35)
[2022-02-19] MEDS: Citalopram 10 MG Tablet PO (10:35)
[2022-02-19 14:00] VITALS: BP 110/64; PULSE 66; RESP 20; TEMP 36.2; O2SAT 97
[2022-02-19 17:25] VITALS: BP 109/85; PULSE 80; RESP 20; TEMP 37.1; O2SAT 98
[2022-02-19] MEDS: Docusate Sodium 100 MG Capsule PO (22:01)
[2022-02-19] MEDS: Mirtazapine 30 MG Tablet PO (22:01)
[2022-02-19] MEDS: Atorvastatin Calcium 10 MG Tablet PO (22:01)
[2022-02-19 23:47] VITALS: BP 118/62; PULSE 82; RESP 20; TEMP 36.3; O2SAT 97
[2022-02-20] VITALS (10 sets, daily range): BP systolic 110–128; BP diastolic 63–77; PULSE 56–86; RESP 18–24; TEMP 36.2–36.6; O2SAT 95–97
[2022-02-20] MEDS: Albuterol 2.5 MG/3 ML VIAL.NEB. INHALATION ×2 (00:28→10:32)
[2022-02-20] MEDS: Vancomycin HCl 250 MG Capsule 500 MG PO ×4 (00:55→17:24)
[2022-02-20] MEDS: hydrOXYzine PAM 25 MG Capsule 50 MG PO ×3 (05:27→21:57)
[2022-02-20 06:55] LABS: Absolute Lymphocyte Count 1.18 X10^3/uL (0.83-4.51); Absolute Neutrophil Count 8.6 X10^3/uL (2.0-7.7); Basophil# 0.06 X10^3/uL; Basophil% 0.6 % (0-1); Eosinophil# 0.31 X10^3/uL; Eosinophils% 2.9 % (0-5); Hematocrit 23.1 % (37-47); Hemoglobin 7.6 g/dL (12.0-15.0); Lymphocyte # 1.18 X10^3/ul (0.83-4.51); Lymphocyte % 10.9 % (19-41); Mean Corp Hgb Conc 32.9 g/dL (32-36); Mean Corpuscular Hgb 30.3 pg (27.0-32.0); Mean Platelet Vol. 9.5 fl (6.2-12.0); Monocyte# 0.47 X10^3/uL; Monocyte% 4.4 % (0-10); NRBC Flagged by Analyzer 0 % (0-5); Neutrophil # 8.58 X10^3/uL (2.7-7.7); Neutrophil % 79.5 % (47-70); POSITIVE MORPHOLOGY YES; Platelet Count 301 K/mm3 (150-450); RBC Distribution Width CV 14.2 % (11.6-14.6); RBC Distribution Width SD 47.9 fl (35.1-43.9); Red Blood Count 2.51 M/mm3 (4.2-5.4); White Blood Count 10.8 K/mm3 (4.4-11.0)
[2022-02-20 07:03] LABS: International Normalized Ratio 2.3; Prothrombin Time (Protime)PT. 24.8 SECONDS (11.7-14.9)
[2022-02-20 07:07] LABS: Differential Indicated SCAN CRITERIA MET
[2022-02-20 07:12] LABS: Anion Gap 5 (5-15); BUN 22 mg/dL (7-18); BUN/Creat Ratio 26.8 RATIO (10-20); Calcium,Total 8.1 mg/dL (8.5-10.1); Chloride 116 mmol/L (98-107); Creatinine, Serum 0.82 mg/dL (0.55-1.02); EST Glomerular Filtration Rate 77 mL/min (>60); Est Glom Filt Rate - Afr Amer 93 mL/min (>60); Estimated Creatinine Clearance 59.18 ml/min; Glucose 90 mg/dL (74-106); Potassium 3.4 mmol/L (3.5-5.1); Sodium Level 143 mmol/L (136-145)
--- NOTE | 2022-02-20 07:27 | PN.HOSP_ITS ---
Subjective Subjective Patient seen no bowel movement this AM. Her hemoglobin however continues to drop down to 7.6. Hemoglobin on admission was 12.5. Patient is on PPI. Her anticoagulation on hold and consultation has been placed to GI. Did discontinue her COVID isolation precautions. She was diagnosed on 02/10/2022 and has not requ ired oxygen Objective Data Objective Data Vital Signs: Vital Signs Temp Pulse Resp BP Pulse Ox O2 Del Method O2 Flow Rate 97.6 F L 86 20 H 128/71 H 97 Room Air 2 02/20/22 05:25 02/20/22 05:25 02/20/22 05:25 02/20/22 05:25 02/20/22 05:25 02/20/22 05:02/19/22 14:00 Oxygen Flow Rate (L/min) 2 Oxygen Delivery Method Room Air Weight: 81.2 kg Body Mass Index (BMI) 33.2 Intake & Output: Intake and Output for Last 24 Hours 02/18/22 02/19/22 02/20/22 23:59 23:59 23:59 Intake Total 1800 / 1800 820 / 820 160 / 160 Output Total 750 / 1000 550 / 550 Balance 1050 / 800 270 / 270 160 / 160 Lab / Micro Data Result Diagrams: 02/20/22 06:20 02/20/22 06:20 Labs: Laboratory Results - last 24 hr 02/19/22 07:02: Sodium 141, Potassium 4.0, Chloride 117 H, Carbon Dioxide 20.0 L , Anion Gap 4 L, BUN 29 H, Creatinine 0.69, Estim Creat Clear Calc 70.33, Est GFR (MDRD) Af Amer 114, Est GFR (MDRD) Non-Af 94, BUN/Creatinine Ratio 41.9 H, Glucose 89, Calcium 8.1 L 02/19/22 07:02: WBC 15.2 H, RBC 2.71 L, Hgb 8.4 L, Hct 25.2 L, MCV 93.0, MCH 31.0, MCHC 33.3, RDW Std Deviation 48.0 H, RDW Coeff of Jonathon 14.1, Plt Count 278, MPV 9.2, Immature Gran % (Auto) 1.500 H, Neut % (Auto) 86.2 H, Lymph % (Auto) 6.7 L, [place] % (Auto) 4.3, Eos % (Auto) 0.9, Baso % (Auto) 0.4, Absolute Neuts (auto) 13.1 H, Absolute Lymphs (auto) 1.01, Nucleated RBC % 0 02/19/22 07:02: PT 40.6 H, INR 4.3 H* 02/20/22 06:20: WBC 10.8, RBC 2.51 L, Hgb 7.6 L, Hct 23.1 L, MCV 92.0, MCH 30.3, MCHC 32.9, RDW Std Deviation 47.9 H, RDW Coeff of Jonathon 14.2, Plt Count 301, MPV 9.5, Immature Gran % (Auto) 1.700 H, Neut % (Auto) 79.5 H, Lymph % (Auto) 10.9 L , [place] % (Auto) 4.4, Eos % (Auto) 2.9, Baso % (Auto) 0.6, Absolute Neuts (auto) 8.6 H, Absolute Lymphs (auto) 1.18, Nucleated RBC % 0 02/20/22 06:20: PT 24.8 H, INR 2.3 02/20/22 06:20: Sodium 143, Potassium 3.4 L, Chloride 116 H, Carbon Dioxide 22.0, Anion Gap 5, BUN 22 H, Creatinine 0.82, Estim Creat Clear Calc 59.18, Est GFR (MDRD) Af Amer 93, Est GFR (MDRD) Non-Af 77, BUN/Creatinine Ratio 26.8 H, Glucose 90, Calcium 8.1 L Micro: Microbiology 02/16/22 14:15 Urine, Catheterized Urine Culture - Final Proteus mirabilis 02/16/22 13:25 Blood Culture (Wb) - Anticubital Left Blood Culture - Preliminary No growth in 48 hours. 02/16/22 12:58 Blood Culture (Wb) - Left Hand Blood Culture - Preliminary No growth in 48 hours. 02/17/22 06:25 Stool C. difficile GDH Antigen & Toxins - Final 02/17/22 06:25 Stool C. difficile DNA Amplification - Final 02/17/22 06:25 Stool Stool Occult Blood (SAKINA) - Final Occult Blood Positive 02/16/22 16:40 Mucosa - Nasopharyngeal Rapid RSV (DFA) - Final 02/16/22 16:40 Mucosa - Nasopharyngeal Influenza Types A,B Direct FA (SAKINA) - Final 02/16/22 14:15 Urine Catheter - Alexis Legionella Antigen - Final 02/16/22 14:15 Urine Catheter - Alexis Streptococcus pneumoniae Antigen (M - Final Streptococcus pneumonia Ag Physical Exam Narrative GENERAL: In no apparent distress HEENT: Atraumatic; EYES; Anicteric, Normal Conjunctiva NECK; supple, normal thyroid, RESPIRATORY: Diminished to auscultation CARDIOVASCULAR: Regular S1 S2, GI: soft, normoactive bowel sounds, : No Renal angle tenderness; EXTREMITIES: No edema, no clubbing, MUSCULOSKELETAL: no muscle wasting NEURO: Grossly intact SKIN: No Rash PSYCH; obtunded Assessment & Plan Assessment/Plan (1) Sepsis: (2) Acute kidney injury: PLAN: Plan Patient is a 56-year-old with history of previous CVA with residual right-sided hemiparesis, recent diagnosis COVID 19 brought in with decreased level of sensorium. Patient was found to have elevated WBC count with lactic acidosis consistent with sepsis admitted to the intensive care unit for further management 1. Sepsis ? Evidenced by source of infection possible post-COVID bacterial pneumonia and UTI. Patient also has decreased level of sensorium elevated WBC count and lactic acidosis. Patient started on broad-spectrum antibiotic therapy with vancomycin and cefepime. Patient was initially hypotensive with systolic blood pressure in the 80s -02/18/2022 patient did not require pressors responded to fluids. Stabilized subsequently transferred from intensive care unit to [facility] unit ? 02/19/2022 sepsis resolved 02/20/2022 discontinue cefepime 2. Acute C. difficile colitis ? Patient started on p.o. vancomycin ? 02/19/2022; remains on vancomycin but still remains symptomatic - 02/20/2022 per patient she had 3 bowel movement during the night however none this AM. 3. Acute cystitis ? Patient had positive nitrite and positive leukocyte esterase she however did not have any pyuria. Awaiting urine cultures if comes back negative would not hesitate to discontinue antibiotics -Patient urine culture so far positive for gram-negative rods final ident ification and sensitivities pending ? 02/19/2022 urine cultures came back positive for Proteus mirabilis however colony count was not significant less than thousand CFU per mL ? 02/20/2022 antibiotics discontinued 4. Suspected pneumonia ? Patient urine antigen assay came back positive for strep pneumo patient remains on cefepime 5. Acute kidney injury ? Baseline creatinine on 12/20/2021 was 0.83 creatinine on admission was 1.77. Admitted to the intensive care unit where patient is currently being resuscitated with IV fluid with monitoring of electrolyte -02/17/2022; creatinine down to 1.0 6. Recent COVID-19 infection Patient was treated with Paxlovid.. Patient currently not a candidate for Decadron not requiring oxygen 7. Paroxysmal A. fib ? Rate controlled patient is on systemic anticoagulation with Coumadin INR on admission 3.4 Coumadin being held ? 02/19/2022. INR. 7.1 down to 4.3 8. Anemia ? Secondary to acute blood loss anemia from GI bleed as a result of patient coagulopathy. INR was as high as 7.1. Coumadin on hold we will continue with monitoring of H&H. Patient may need to undergo endoscopic evaluation prior to reinitiation of her warfarin. We will continue with monitoring of H&H and transfuse if patient is in to be symptomatic or hemoglobin falls below 7. C onsult has been placed to GI. -02/20/2022; patient hemoglobin dropped to 7.6. Started on PPI. Consultation placed to GI 9.? Hypertension -Blood pressure was low on admission antihypertensives held 10.? History of previous CVA ? With residual right-sided weakness ? PT OT as tolerated 11.? Severe protein calorie malnutrition ? Evidenced by suboptimal energy intake as well as weight loss.? This is secondary to patient chronic medical comorbidities.? Consult placed to dietitian 12.? 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 Valvular heart disease ? With history of mitral valve replacement with bioprosthetic material 15. DVT prophylaxis Patient is on warfarin CODE STATUS full code Charges/Coding Visit Charges Inpatient E&M: 53329 Subs Hosp L2
[2022-02-20 07:52] LABS: Hypochromasia 1+
[2022-02-20] MEDS: Aspirin E.C. 81 MG Tablet PO (09:31)
[2022-02-20] MEDS: Menthol/Lanolin/Calamine/Znox 113 GM Tube 1 APPLIC TOPICAL ×2 (09:32→21:58)
[2022-02-20] MEDS: Citalopram 10 MG Tablet PO (09:32)
[2022-02-20] MEDS: ARIPiprazole 5 MG Tablet 2.5 MG PO ×2 (09:33→21:57)
[2022-02-20] MEDS: Clopidogrel Bisulfate 75 MG Tablet PO (09:34)
[2022-02-20] MEDS: Cholecalciferol (Vit D3) 125 MCG CAPSULE (5,000 UNITS) PO (09:35)
[2022-02-20] MEDS: OXcarbazepine 300 MG Tablet PO ×2 (09:44→21:58)
[2022-02-20] MEDS: Acetaminophen 325 MG Tablet 650 MG PO (17:18)
--- NOTE | 2022-02-20 18:05 | PCA ---
PT refused dinner tray, only wanted ensure that came with dinner tray.
[2022-02-20] MEDS: Mirtazapine 30 MG Tablet PO (21:57)
[2022-02-20] MEDS: Atorvastatin Calcium 10 MG Tablet PO (21:58)
[2022-02-21] VITALS (7 sets, daily range): BP systolic 107–127; BP diastolic 59–73; PULSE 73–85; RESP 12–24; TEMP 36.2–37.1; O2SAT 95–98
[2022-02-21] MEDS: Acetaminophen 325 MG Tablet 650 MG PO ×2 (03:37→22:09)
[2022-02-21] MEDS: Albuterol 2.5 MG/3 ML VIAL.NEB. INHALATION (03:53)
[2022-02-21] MEDS: Vancomycin HCl 250 MG Capsule 500 MG PO ×3 (06:09→17:58)
[2022-02-21] MEDS: hydrOXYzine PAM 25 MG Capsule 50 MG PO ×3 (06:09→22:09)
[2022-02-21 06:24] LABS: Absolute Neutrophil Count 5.4 X10^3/uL (2.0-7.7); Basophil# 0.05 X10^3/uL; Basophil% 0.6 % (0-1); Eosinophils% 3.7 % (0-5); Hemoglobin 7.9 g/dL (12.0-15.0); Lymphocyte % 17.3 % (19-41); Mean Corp Hgb Conc 32.9 g/dL (32-36); Mean Corpuscular Hgb 30.5 pg (27.0-32.0); Mean Corpuscular Volume 92.7 fL (81-99); Mean Platelet Vol. 9.1 fl (6.2-12.0); Monocyte# 0.62 X10^3/uL; Monocyte% 7.7 % (0-10); NRBC Flagged by Analyzer 0.2 % (0-5); Neutrophil # 5.39 X10^3/uL (2.7-7.7); Neutrophil % 66.5 % (47-70); Platelet Count 311 K/mm3 (150-450); RBC Distribution Width CV 14.3 % (11.6-14.6); RBC Distribution Width SD 48.1 fl (35.1-43.9); Red Blood Count 2.59 M/mm3 (4.2-5.4); White Blood Count 8.1 K/mm3 (4.4-11.0)
[2022-02-21 06:56] LABS: Anion Gap 7 (5-15); BUN 19 mg/dL (7-18); BUN/Creat Ratio 26.4 RATIO (10-20); Calcium,Total 8.4 mg/dL (8.5-10.1); Chloride 111 mmol/L (98-107); Creatinine, Serum 0.72 mg/dL (0.55-1.02); EST Glomerular Filtration Rate 90 mL/min (>60); Est Glom Filt Rate - Afr Amer 108 mL/min (>60); Glucose 89 mg/dL (74-106); Potassium 3.7 mmol/L (3.5-5.1); Sodium Level 142 mmol/L (136-145)
[2022-02-21] MEDS: ARIPiprazole 5 MG Tablet 2.5 MG PO ×2 (09:38→21:59)
[2022-02-21] MEDS: Citalopram 10 MG Tablet PO (09:38)
[2022-02-21] MEDS: Cholecalciferol (Vit D3) 125 MCG CAPSULE (5,000 UNITS) PO (09:38)
[2022-02-21] MEDS: Menthol/Lanolin/Calamine/Znox 113 GM Tube 1 APPLIC TOPICAL ×2 (09:38→21:58)
[2022-02-21] MEDS: OXcarbazepine 300 MG Tablet PO ×2 (09:38→22:04)
--- NOTE | 2022-02-21 11:01 | PN.HOSP_ITS ---
Subjective Subjective Patient seen and examined. She had no active complaints, and was enquiring about going back to her SNF today. She denied any fever, chills, nausea, vomiting or diarrhea or any other symptoms. Review of systems was otherwise negative. She is awaiting gastroenterology evaluation. Hb today is 7.9. Objective Data Objective Data Vital Signs: Vital Signs Temp Pulse Resp BP Pulse Ox O2 Del Method O2 Flow Rate 97.8 F 79 18 119/73 97 Room Air 2 02/21/22 09:42 02/21/22 09:42 02/21/22 09:42 02/21/22 09:42 02/21/22 09:42 02/21/22 09:43 02/19/22 14:00 Oxygen Flow Rate (L/min) 2 Oxygen Delivery Method Room Air Weight: 178 lb 12.718 oz Body Mass Index (BMI) 33.2 Intake & Output: Intake and Output for Last 24 Hours 02/19/22 02/20/22 02/21/22 23:59 23:59 23:59 Intake Total 820 / 820 1000 / 1000 Output Total 550 / 550 Balance 270 / 270 1000 / 1000 Lab / Micro Data Result Diagrams: 02/21/22 05:35 02/21/22 05:35 Labs: Laboratory Results - last 24 hr 02/21/22 05:35: WBC 8.1, RBC 2.59 L, Hgb 7.9 L, Hct 24.0 L, MCV 92.7, MCH 30.5, MCHC 32.9, RDW Std Deviation 48.1 H, RDW Coeff of Jonathon 14.3, Plt Count 311, MPV 9.1, Immature Gran % (Auto) 4.200 H, Neut % (Auto) 66.5, Lymph % (Auto) 17.3 L, Carson % (Auto) 7.7, Eos % (Auto) 3.7, Baso % (Auto) 0.6, Absolute Neuts (auto) 5.4, Absolute Lymphs (auto) 1.40, Nucleated RBC % 0.2 02/21/22 05:35: Sodium 142, Potassium 3.7, Chloride 111 H, Carbon Dioxide 24.0, Anion Gap 7, BUN 19 H, Creatinine 0.72, Estim Creat Clear Calc 67.40, Est GFR ( MDRD) Af Amer 108, Est GFR (MDRD) Non-Af 90, BUN/Creatinine Ratio 26.4 H, Glu cose 89, Calcium 8.4 L Micro: Microbiology 02/16/22 14:15 Urine, Catheterized Urine Culture - Final Proteus mirabilis 02/16/22 13:25 Blood Culture (Wb) - Anticubital Left Blood Culture - Preliminary No growth in 48 hours. 02/16/22 12:58 Blood Culture (Wb) - Left Hand Blood Culture - Preliminary No growth in 48 hours. 02/17/22 06:25 Stool C. difficile GDH Antigen & Toxins - Final 02/17/22 06:25 Stool C. difficile DNA Amplification - Final 02/17/22 06:25 Stool Stool Occult Blood (SAKINA) - Final Occult Blood Positive 02/16/22 16:40 Mucosa - Nasopharyngeal Rapid RSV (DFA) - Final 02/16/22 16:40 Mucosa - Nasopharyngeal Influenza Types A,B Direct FA (SAKINA) - Final 02/16/22 14:15 Urine Catheter - Alexis Legionella Antigen - Final 02/16/22 14:15 Urine Catheter - Alexis Streptococcus pneumoniae Antigen (M - Final Streptococcus pneumonia Ag Physical Exam Const alert, oriented x3 and no apparent distress Constitutional Narrative: frail HEENT head/scalp atraumatic and moist oral mucous membranes Head and Scalp: normocephalic Mouth: oral and palatal mucosa normal and dry mucous membranes Eyes PERRL, EOMs intact bilaterally and conjunctivae normal Neck no lymphadenopathy, supple and no JVD Resp normal respiratory effort, no retractions, no use of accessory muscles and clear to auscultation bilaterally Cardio regular rate, regular rhythm, S1 normal heart sound, S2 normal heart sound and no murmurs GI normal to inspection, nondistended, normoactive bowel sounds, soft to palpation, non-tender and non-distended Extremity normal to inspection, full ROM and no clubbing, cyanosis or edema Neuro oriented x3, CN's II-XII intact bilaterally and moves all extremities Sensorium / Orientation: awake and alert Coordination / Balance: [id number] test normal Motor Exam: strength 5/5 throughout Psych affect normal Assessment & Plan Assessment/Plan (1) Sepsis: (2) Acute kidney injury: (3) Anemia: PLAN: Plan #sepsis due to cystitis * largely resolved. Was initially admitted to the ICU, and started on broad spectrum antibiotics * she has remained stable and now off antibiotics * #C Diff colitis * on oal vancomycin. Asymptomatic, no diarrhea overnight * #Anemia * Hb was 12.5 on admission, and dropped to 7.6. Hb today is 7.9 * GI consulted; awaiting evaluation * On IV PPI * #JETT: Resolved #Recent COVID-19 infection: Was treated with Paxil of it. On room air. Out of isolation. #Paroxysmal afib: coumadin on hold due to anemia. #History of CVA with residual right-sided weakness: Aspirin and Plavix held due to anemia, pending GI evaluation. #Severe protein calorie malnutrition: Dietitian on board. Titrate as #History of valvular heart disease: S/p mitral valve replacement. Also s/p pacemaker insertion. #Hypertension: BP meds held due to hypotension on admission. Has remained stable. DVT prophylaxis: SCDs. Coumadin on hold on account of anemia. GI prophylaxis: PPI Charges/Coding Visit Charges Inpatient E&M: 84734 Subs Hosp L2
--- NOTE | 2022-02-21 20:35 | CON.PCM_ITS ---
Assessment & Plan Assessment/Plan (1) Anemia: PLAN: Acute blood loss anemia in the setting of abdominal pain in a patient that is on anticoagulation. Differential diagnosis does include erosive gastritis, peptic ulcer disease, arteriovenous malformation all involving upper GI tract. Due to her history of bioprosthetic valve replacement she is at risk for telangiectasias of the small bowel and colon also. She does not know if she is ever had a colonoscopy. She should undergo an upper endoscopy for evaluation of her upper GI tract and she can have a colonoscopy at a later time if everything is negative on a push enteroscopy. HPI Consult Data Date of Consult: 02/21/22 HPI Narrative Reason for Consultation: anemia HPI Narrative: FROILAN GARCÍA, is a 56 F who presented to the ED today with altered mental status. She tested positive for COVID on February 10.? She completed a course of Paxlovid.? The correction reported that she had altered mental status today with bruising noted to her face and extremities.? She is currently on Coumadin and her INR has been elevated recently.? EMS notes initial blood pressure was low but did respond to a 250 cc IV fluid bolus. She was diagnosed with sepsis, acute kidney injury. While she was here she was noted to have a decrease in hemoglobin. I was asked to see her due to her worsening anemia. She has a history of a bioprosthetic mitral valve repair.? Specifically she has a history of hypertension, asthma, smoker less than 1 pack per day for the past 23 years, who in July 2009 when she was at near full-term gestation with her third child in the third trimester, who apparently developed a stroke at 36 weeks requiring emergent transferred [facility].? She underwent a C- section at that time and an MRI showed past strokes in multiple vascular distributions and acute left cortical stroke.? 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 Her EF was normal at that time.? Carotid studies were negative.? Patient was allowed to recover, until her mitral mass resolved.? She then underwent a #27 mm bioprosthetic [employer] Velasco mitral valve replacement and has been following up at the [facility].? She has been on Coumadin ever since for her CVA and paroxysmal atrial fibrillation.? Patient has some mild dysarthria and weakness on her right side since her stroke. In addition she developed sick sinus syndrome in 2008 and underwent dual-chamber pacemaker for occasional third-degree AV block.? 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 She underwent generator change on 09/21/2020. [facility] Medical History AAA (abdominal aortic aneurysm) Acute UTI Anemia Anxiety Asthma Bipolar disorder Brain aneurysm CKD (chronic kidney disease) COPD (chronic obstructive pulmonary disease) CVA (cerebral vascular accident) Depressive disorder Dysphagia as late effect of cerebrovascular accident (CVA) 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 classified elsewhere Former smoker Hemiparesis due to old cerebrovascular accident pen[facility] (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 anticoagulants Mitral regurgitation Non-ischemic cardiomyopathy Schizophrenia Sick sinus syndrome Stroke/cerebrovascular accident Unsteady gait Home Medications aspirin 81 mg tablet,delayed release (Adult Low Dose Aspirin) 81 mg PO DAILY BLOOD THINNER 11/27/20 [History Last Taken 02/16/22] clopidogrel 75 mg tablet (Plavix) 75 mg PO DAILY BLOOD THINNER 11/27/20 [History Last Taken 02/16/22] mirtazapine 30 mg tablet (Remeron) 30 mg PO QHS Check with primary doctor 03/03/21 [History Last Taken 02/15/22] oxcarbazepine 300 mg tablet (Trileptal) 300 mg PO BID SEIZURES 03/03/21 [History Last Taken 02/16/22] trazodone 150 mg tablet 150 mg PO QHS SLEEP 03/03/21 [History Last Taken 02/15/22] citalopram 10 mg tablet (Celexa) 10 mg PO DAILY DEPRESSION 04/09/21 [History Last Taken 02/16/22] cholecalciferol (vitamin D3) 125 mcg (5,000 unit) capsule 125 mcg PO DAILY supplement 12/14/21 [History Last Taken 02/16/22] docusate sodium 100 mg capsule 100 mg PO BID CONSTPATION 12/14/21 [History Last Taken 02/16/22] hydroxyzine pamoate 50 mg capsule (Vistaril) 50 mg PO TID BIPOLAR 12/14/21 [History Last Taken 02/16/22] rosuvastatin 5 mg tablet 5 mg PO QHS CHOLESTEROL 12/14/21 [History Last Taken 02/10/22] acetaminophen 500 mg tablet 500 mg PO Q6H PRN pain/fever 02/16/22 [History Last Taken Unknown] acetaminophen 500 mg tablet 500 mg PO TID PAIN 02/16/22 [History Last Taken 02/16/22] albuterol sulfate 90 mcg/actuation aerosol inhaler See Rx Instructions .Route .COMPLEX PRN coughing and wheezing 02/16/22 [History Last Taken Unknown] amlodipine 10 mg tablet 10 mg PO DAILY HTN 02/16/22 [History Last Taken 02/16/22] aripiprazole 5 mg tablet (Abilify) 2.5 mg PO BID MOOD 02/16/22 [History Last Taken 02/16/22] lorazepam 0.5 mg tablet (Ativan) 0.5 mg PO TID ANXIETY 02/16/22 [History Last Taken 02/16/22] nirmatrelvir 150 mg-ritonavir 100 mg tablets in a dose pack (EUA) (Paxlovid) 3 tab PO BID COVID 02/16/22 [History Last Taken 02/16/22] ondansetron 4 mg disintegrating tablet 4 mg PO Q6H PRN Nausea 02/16/22 [History Last Taken 02/16/22] valbenazine 80 mg capsule (Ingrezza) 80 mg PO DAILY TARDIVS DYSKINESIA 02/16/22 [History Last Taken 02/16/22] warfarin 4 mg tablet 4 mg PO QWEEK BLOOD THINNER 02/16/22 [History Last Taken Unknown] warfarin 5 mg tablet 5 mg PO SUMOTUTHFRSA 02/16/22 [History Last Taken 02/15/22] Allergy/AdvReac Type Severity Reaction Status Date / Time amoxicillin [Amoxicillin] Allergy Hives Verified 02/16/22 13:19 latex Allergy Rash Verified 02/16/22 13:19 lisinopril Allergy Unknown Verified 02/16/22 13:19 Penicillins Allergy Hives Verified 02/16/22 13:19 venom-honey bee Allergy Swelling Verified 02/16/22 13:19 [bee venom (honey bee)] ciprofloxacin [From Cipro] AdvReac Nausea/Vom/ Verified 02/16/22 13:19 Diarrhea Surgical History History of History of mitral valve replacement with bioprosthetic valve (07/23/09) History of partial colectomy Presence of cardiac pacemaker (09/21/20) Social History current occupational status: unemployed Smoking Status: Former smoker alcohol intake: current alcohol intake frequency: holidays/special occasions only substance use type: does not use caffeine: Yes Type: carbonated beverages Number of servings: 1 ROS Review of Systems ROS Unobtainable: other Constitutional Constitutional: Denies chills, fatigue or fever(s) Eyes Eyes: Denies blurry vision or change in vision ENT HEENT: Denies dizziness, dysphagia, nasal discharge or sore throat Cardiovascular Cardiovascular: Denies dyspnea Respiratory/Chest Respiratory/Chest: Denies cough or dyspnea Gastrointestinal Gastrointestinal: Reports diarrhea; Denies abdominal pain Genitourinary Genitourinary: Denies difficulty urinating or urinary frequency Musculoskeletal Musculoskeletal: Denies arthralgias Integumentary Integumentary: Denies lesions, rash or skin ulcer Neurologic Neurologic: Reports confusion Psychiatric Psychiatric: Reports anxiety and depression Endocrine Endocrinology: Denies fatigue Hematologic/Lymphatic Hematologic/Lymphatic: Reports easy bruising Allergic/Immunologic Allergic/Immunologic: Denies systems reviewed and no addt'l complaints, except as documented Physical Exam Const alert, oriented x3 and no apparent distress Constitutional Narrative: frail HEENT head/scalp atraumatic and moist oral mucous membranes Head and Scalp: normocephalic Mouth: oral and palatal mucosa normal and dry mucous membranes Eyes PERRL, EOMs intact bilaterally and conjunctivae normal Neck no lymphadenopathy, supple and no JVD Resp normal respiratory effort, no retractions, no use of accessory muscles and clear to auscultation bilaterally Cardio regular rate, regular rhythm, S1 normal heart sound, S2 normal heart sound and no murmurs GI normal to inspection, nondistended, normoactive bowel sounds, soft to palpation, non-tender and non-distended Extremity normal to inspection, full ROM and no clubbing, cyanosis or edema Neuro oriented x3, CN's II-XII intact bilaterally and moves all extremities Sensorium / Orientation: awake and alert Coordination / Balance: [id number] test normal Motor Exam: strength 5/5 throughout Psych affect normal Lab / Micro Data Result Diagrams: 02/21/22 05:35 02/21/22 05:35 Labs: Laboratory Results - last 24 hr 02/21/22 05:35: WBC 8.1, RBC 2.59 L, Hgb 7.9 L, Hct 24.0 L, MCV 92.7, MCH 30.5, MCHC 32.9, RDW Std Deviation 48.1 H, RDW Coeff of Jonathon 14.3, Plt Count 311, MPV 9.1, Immature Gran % (Auto) 4.200 H, Neut % (Auto) 66.5, Lymph % (Auto) 17.3 L, [place] % (Auto) 7.7, Eos % (Auto) 3.7, Baso % (Auto) 0.6, Absolute Neuts (auto) 5.4, Absolute Lymphs (auto) 1.40, Nucleated RBC % 0.2 02/21/22 05:35: Sodium 142, Potassium 3.7, Chloride 111 H, Carbon Dioxide 24.0, Anion Gap 7, BUN 19 H, Creatinine 0.72, Estim Creat Clear Calc 67.40, Est GFR (MDRD) Af Amer 108, Est GFR (MDRD) Non-Af 90, BUN/Creatinine Ratio 26.4 H, Gl ucose 89, Calcium 8.4 L Micro: Microbiology 02/16/22 12:58 Blood Culture (Wb) - Left Hand Blood Culture - Final No growth in 5 days. 02/16/22 13:25 Blood Culture (Wb) - Anticubital Left Blood Culture - Final No growth in 5 days. Charges/Coding Visit Charges Inpatient E&M: 50965 Init Hosp L2
[2022-02-21] MEDS: Mirtazapine 30 MG Tablet PO (22:04)
[2022-02-21] MEDS: Atorvastatin Calcium 10 MG Tablet PO (22:04)
[2022-02-22] VITALS (9 sets, daily range): BP systolic 106–143; BP diastolic 60–70; PULSE 61–78; RESP 12–18; TEMP 36.1–37.2; O2SAT 9–99; BMI 33.2
[2022-02-22] MEDS: Vancomycin HCl 250 MG Capsule 500 MG PO ×2 (00:25→17:31)
[2022-02-22] MEDS: 0.9% Saline Lock 10 ML Syringe IV ×2 (05:34→08:27)
[2022-02-22 06:36] LABS: Absolute Lymphocyte Count 1.47 X10^3/uL (0.83-4.51); Absolute Neutrophil Count 3.4 X10^3/uL (2.0-7.7); Basophil# 0.04 X10^3/uL; Basophil% 0.7 % (0-1); Eosinophil# 0.26 X10^3/uL; Eosinophils% 4.3 % (0-5); Hematocrit 24.2 % (37-47); Hemoglobin 7.9 g/dL (12.0-15.0); Lymphocyte # 1.47 X10^3/ul (0.83-4.51); Lymphocyte % 24.1 % (19-41); Mean Corp Hgb Conc 32.6 g/dL (32-36); Mean Corpuscular Hgb 30.4 pg (27.0-32.0); Mean Corpuscular Volume 93.1 fL (81-99); Mean Platelet Vol. 9.2 fl (6.2-12.0); Monocyte# 0.67 X10^3/uL; NRBC Flagged by Analyzer 0.8 % (0-5); Neutrophil # 3.42 X10^3/uL (2.7-7.7); Neutrophil % 55.8 % (47-70); POSITIVE MORPHOLOGY YES; Platelet Count 320 K/mm3 (150-450); RBC Distribution Width CV 14.3 % (11.6-14.6); RBC Distribution Width SD 48.1 fl (35.1-43.9); White Blood Count 6.1 K/mm3 (4.4-11.0)
[2022-02-22 06:39] LABS: Differential Indicated SCAN CRITERIA MET
[2022-02-22 06:58] LABS: Differential Comment SCANNED
[2022-02-22 07:00] LABS: Anion Gap 6 (5-15); BUN 14 mg/dL (7-18); BUN/Creat Ratio 22.3 RATIO (10-20); Calcium,Total 8.4 mg/dL (8.5-10.1); Chloride 112 mmol/L (98-107); Creatinine, Serum 0.63 mg/dL (0.55-1.02); EST Glomerular Filtration Rate 105 mL/min (>60); Est Glom Filt Rate - Afr Amer 127 mL/min (>60); Estimated Creatinine Clearance 77.03 ml/min; Glucose 87 mg/dL (74-106); Potassium 3.8 mmol/L (3.5-5.1); Sodium Level 144 mmol/L (136-145)
--- NOTE | 2022-02-22 09:29 | CASEMGMT ---
Social Work Clinical updated emailed to Iraida at [facility]. Pt to have a procedure later today. Pt can return to [facility] when medically ready. Plan: Alysa Sorensen, when medically ready ERROL Wooten
[2022-02-22] MEDS: Menthol/Lanolin/Calamine/Znox 113 GM Tube 1 APPLIC TOPICAL ×2 (09:30→20:36)
--- NOTE | 2022-02-22 11:03 | PN.HOSP_ITS ---
Subjective Subjective Patient seen and examined. She has no complaints today, and had an uneventful night. She was reviewed by GI yesterday and is due for EGD today. Review of systems otherwise negative. hb today is 7.9. Objective Data Objective Data Vital Signs: Vital Signs Temp Pulse Resp BP Pulse Ox O2 Del Method O2 Flow Rate 97.8 F 66 16 121/68 H 96 Room Air 2 02/22/22 08:19 02/22/22 08:19 02/22/22 08:19 02/22/22 08:19 02/22/22 08:19 02/22/22 08:30 02/19/22 14:00 Oxygen Flow Rate (L/min) 2 Oxygen Delivery Method Room Air Weight: 180 lb 5.41 oz Body Mass Index (BMI) 33.2 Intake & Output: Intake and Output for Last 24 Hours 02/20/22 02/21/22 02/22/22 23:59 23:59 23:59 Intake Total 1000 / 1000 900 / 1400 500 / 500 Balance 1000 / 1000 900 / 1400 500 / 500 Lab / Micro Data Result Diagrams: 02/22/22 05:25 02/22/22 05:25 Labs: Laboratory Results - last 24 hr 02/22/22 05:25: WBC 6.1, RBC 2.60 L, Hgb 7.9 L, Hct 24.2 L, MCV 93.1, MCH 30.4, MCHC 32.6, RDW Std Deviation 48.1 H, RDW Coeff of Jonathon 14.3, Plt Count 320, MPV 9.2, Immature Gran % (Auto) 4.100 H, Neut % (Auto) 55.8, Lymph % (Auto) 24.1, Edgar % (Auto) 11.0 H, Eos % (Auto) 4.3, Baso % (Auto) 0.7, Absolute Neuts (auto) 3.4, Absolute Lymphs (auto) 1.47, Nucleated RBC % 0.8, Differential Comment SCANNED 02/22/22 05:25: Sodium 144, Potassium 3.8, Chloride 112 H, Carbon Dioxide 26.0, Anion Gap 6, BUN 14, Creatinine 0.63, Estim Creat Clear Calc 77.03, Est GFR (MDRD) Af Amer 127, Est GFR (MDRD) Non-Af 105, BUN/Creatinine Ratio 22.3 H, Glucose 87, Calcium 8.4 L Micro: Microbiology 02/16/22 12:58 Blood Culture (Wb) - Left Hand Blood Culture - Final No growth in 5 days. 02/16/22 13:25 Blood Culture (Wb) - Anticubital Left Blood Culture - Final No growth in 5 days. 02/16/22 14:15 Urine, Catheterized Urine Culture - Final Proteus mirabilis 02/17/22 06:25 Stool C. difficile GDH Antigen & Toxins - Final 02/17/22 06:25 Stool C. difficile DNA Amplification - Final 02/17/22 06:25 Stool Stool Occult Blood (SAKINA) - Final Occult Blood Positive 02/16/22 16:40 Mucosa - Nasopharyngeal Rapid RSV (DFA) - Final 02/16/22 16:40 Mucosa - Nasopharyngeal Influenza Types A,B Direct FA (SAKINA) - Final 02/16/22 14:15 Urine Catheter - Alexis Legionella Antigen - Final 02/16/22 14:15 Urine Catheter - Alexis Streptococcus pneumoniae Antigen (M - Final Streptococcus pneumonia Ag Physical Exam Const alert, oriented x3 and no apparent distress Constitutional Narrative: frail HEENT head/scalp atraumatic and moist oral mucous membranes Eyes PERRL, EOMs intact bilaterally and conjunctivae normal Neck no lymphadenopathy, supple and no JVD Resp normal respiratory effort, no retractions, no use of accessory muscles and clear to auscultation bilaterally Cardio regular rate, regular rhythm, S1 normal heart sound, S2 normal heart sound and no murmurs GI normal to inspection, nondistended, normoactive bowel sounds, soft to palpation, non-tender and non-distended Extremity normal to inspection, full ROM and no clubbing, cyanosis or edema Neuro oriented x3, CN's II-XII intact bilaterally and moves all extremities Neuro Narrative: residual right sided weakness from previous stroke Sensorium / Orientation: awake and alert Coordination / Balance: [id number]-kqeg test normal Psych affect normal Assessment & Plan Assessment/Plan (1) Sepsis: (2) Acute kidney injury: (3) Anemia: PLAN: Plan #sepsis due to cystitis * largely resolved. Was initially admitted to the ICU, and started on broad spectrum antibiotics * she has remained stable and now off antibiotics * #C Diff colitis * on oal vancomycin. Asymptomatic. Diarrhea has resolved * #Anemia * Hb was 12.5 on admission, and dropped to 7.6. Hb today remain 7.9 * GI on board, for EGD today * On IV PPI * #JETT: Resolved #Recent COVID-19 infection: Was treated with Paxlovid. On room air. Out of isolation. #Paroxysmal afib: coumadin on hold due to anemia. #History of CVA with residual right-sided weakness * Aspirin and Plavix held due to anemia, pending GI evaluation. * To resume after EGD #Severe protein calorie malnutrition: Dietitian on board. #History of valvular heart disease: S/p mitral valve replacement. Also s/p pacemaker insertion. #Hypertension: BP meds held due to hypotension on admission. Has remained stable. DVT prophylaxis: SCDs. Coumadin on hold on account of anemia. GI prophylaxis: PPI Charges/Coding Visit Charges Inpatient E&M: 78184 Subs Hosp L2
[2022-02-22] MEDS: 0.9% Normal Saline 1,000 ML 15 ML IV (13:30)
--- NOTE | 2022-02-22 13:45 | EGD_PTH ---
PATIENT: FROILAN GARCÍA LOC: MS3 U#:[id number] AGE/SX: 56/F ROOM: [facility] RE02/16/[address]: Dr. Gloria Frazier MD : 1965 BED: 1 DIS: 02/23/2022 SPEC #: [id number] RECD: 02/22/22 14:47 STATUS: MARVIN REPio #: [id number] JASON: 02/22/22 13:[address]: Olegario Jimenez DEPT: SURGICAL PATHOLOGY RECD BY: Rico Douglas ENTERED: 02/23/22 07:43 SP TYPE: EGD BIOPSY OTHR DR: MD Dr. Vu Holliday DO Dr. David Kittoe, MD Dr. Nana Yaa Koram, MD Dr. Victor Velasquez, MD Christina Muller, COIL INSPECTOR-C Tissues: A - Duodenum, NOS B - Gastric mucous membrane Procedures: Surgery Specimen Level IV HEADER OPERATION: EGD ([facility]), biopsy, electrohemostasis PRE-OP DIAGNOSIS: Anemia TISSUE SUBMITTED: A ? Duodenum biopsy, B ? Antrum biopsy for histo and H. pylori MICROSCOPIC DIAGNOSIS A. Duodenum, biopsy: Mild nonspecific chronic inflammation. B. Gastric antrum, biopsy: Mild chronic gastritis. See comment. AM:elisha 02/24/2022 COMMENT B. The results of immunohistochemistry for Helicobacter pylori will be reported separately ([id number]). MICROSCOPIC DESCRIPTION Slides are reviewed. GROSS DESCRIPTION A - Received in fixative is one container labeled with the patient's name and designated duodenum biopsy. The specimen consists of one irregular fragment of light jauregui soft tissue that measures 0.3 x 0.2 x 0.1 cm. The specimen is totally submitted in one cassette. B - Received in fixative is one container labeled with the patient's name and designated antrum biopsy. The specimen consists of two irregular fragments of light jauregui soft tissue that in aggregate measure 0.5 x 0.5 x 0.1 cm. The specimen is totally submitted in one cassette. / AM:elisha 02/23/2022 TC:3 CPT: 51055 x2
--- NOTE | 2022-02-22 13:45 | IMM_PTH ---
PATIENT: FROILAN GARCÍA LOC: MS3 U#:[id number] AGE/SX: 56/F ROOM: [facility] [place] RE02/16/[address]: Dr. Gloria Frazier MD : 1965 BED: 1 DIS: 02/23/2022 SPEC #: [id number] RECD: 02/23/22 08:45 STATUS: SOUAlethea REQ #: [id number] JASON: 02/22/22 13:[address]: Olegario Jimenez DEPT: IMMUNOHISTOCHEMISTRY RECD BY: Lynette Kaur ENTERED: 02/23/22 08:45 SP TYPE: IMMUNO OTHR DR: MD Dr. Vu Holliday DO Dr. David Kittoe, MD Dr. Nana Yaa Koram, MD Dr. Victor Velasquez, MD Christina Muller, LUMITE INJECTOR-C Tissues: B - Stomach, NOS Procedures: H Pylori (initial) PHYSICIAN & [place] [id number] SPECIMEN INFORMATION: Tissue Source: B ? Antrum biopsy Clinical Info: Amy Specimen Number: [id number] CPT code: 09496 METHODOLOGY: Deparaffinized sections of prefer/formalin-fixed tissue or PAP/DQ stained slides are incubated with monoclonal/polyclonal antibodies/oligonucleotide probes. Localization is made via biotin free immunoperoxidase method. Appropriate controls are performed and reacted as expected. Results on target cell population are indicated in the following table: RESULTS: ANTIBODY / CLONE RESULT Block B H Pylori (polyclonal) negative These tests were developed and their performance characteristics determined by [facility]. They may not have been cleared or approved by the U.S. Food and Drug Administration. The FDA has determined that such clearance or approval is not necessary. The above immunohistochemical/dualISH markers are ordered and reviewed by the Pathologist. INTERPRETATION: B. Antrum, biopsy: Negative for Helicobacter pylori organisms. AM:elisha 02/24/2022
--- NOTE | 2022-02-22 14:32 | OP.EGD_ITS ---
Patient Name: Koko Briggs Procedure Date: 02/22/2022 2:03 PM Date of : 1965 Age: 56 Procedure: Upper GI endoscopy Indications: Iron deficiency anemia, Melena Providers: Olegario Jimenez DO Medicines: Monitored Anesthesia Care Patient Profile: This is a 56 year old female. Refer to note in patient chart for documentation of history and physical. Patient has symptoms. Complications: No immediate complications. Procedure: Pre-Anesthesia Assessment: - Prior to the procedure, a History and Physical was performed, and patient medications and allergies were reviewed. The risks and benefits of the procedure and the sedation options and risks were discussed with the patient. All questions were answered and informed consent was obtained. Patient identification and proposed procedure were verified by the physician in the pre-procedure area. Mental Status Examination: alert and oriented. Airway Examination: normal oropharyngeal airway and neck mobility. Respiratory Examination: clear to auscultation. CV Examination: normal. Prophylactic Antibiotics: The patient does not require prophylactic antibiotics. Prior Anticoagulants: The patient has taken no previous anticoagulant or antiplatelet agents. ASA Grade Assessment: II - A patient with mild systemic disease. After reviewing the risks and benefits, the patient was deemed in satisfactory condition to undergo the procedure. The anesthesia plan was to use moderate sedation / analgesia (conscious sedation). Immediately prior to administration of medications, the patient was re-assessed for adequacy to receive sedatives. The heart rate, respiratory rate, oxygen saturations, blood pressure, adequacy of pulmonary ventilation, and response to care were monitored throughout the procedure. The physical status of the patient was re-assessed after the procedure. After obtaining informed consent, the endoscope was passed under direct vision. Throughout the procedure, the patient's blood pressure, pulse, and oxygen saturations were monitored continuously. The colonoscope was introduced through the mouth, and advanced to the second part of duodenum. The upper GI endoscopy was accomplished without difficulty. The patient tolerated the procedure well. Scope In: 2:15:09 PM Scope Out: 2:22:16 PM Total Procedure Duration Time 0 hours 7 minutes 7 seconds Findings: LA Grade B (one or more mucosal breaks greater than 5 mm, not extending between the tops of two mucosal folds) esophagitis with no bleeding was found 35 to 37 cm from the incisors. Coagulation for hemostasis using heater probe was successful. A small hiatal hernia was present. A few non-bleeding localized erosions were found in the gastric fundus (on retroflexion). There were no stigmata of recent bleeding. Patchy moderate inflammation characterized by congestion (edema), erosions, erythema, friability, granularity and shallow ulcerations was found in the gastric antrum. Biopsies were taken with a cold forceps for histology. Verification of patient identification for the specimen was done. Estimated blood loss was minimal. Three non-bleeding cratered duodenal ulcers with no stigmata of bleeding were found in the duodenal bulb. The largest lesion was 6 mm in largest dimension. Biopsies were taken with a cold forceps for histology. Verification of patient identification for the specimen was done. Estimated blood loss was minimal. Impression: - LA Grade B erosive esophagitis. Treated with a heater probe. - Small hiatal hernia. - Gastric erosions without bleeding. - Acute gastritis. Biopsied. - Multiple non-bleeding duodenal ulcers with no stigmata of bleeding. Biopsied. Recommendation: - [facility]. - Use Protonix (pantoprazole) 40 mg PO BID for 8 weeks. - Continue present medications. Procedure Code(s): --- Professional --- 23997, 59, Esophagogastroduodenoscopy, flexible, transoral; with control of bleeding, any method 24737, 51, Esophagogastroduodenoscopy, flexible, transoral; with biopsy, single or multiple CPT copyright 2017 [employer]. All rights reserved. The codes documented in this report are preliminary and upon cardiothoracic anesthesia technician review may be revised to meet current compliance requirements. Olegario Jimenez DO 02/22/2022 2:32:11 PM This report has been signed electronically. Number of Addenda: 1 Note Initiated On: 02/22/2022 2:03 PM Addendum Number: 1 Addendum Date: 05/11/2022 6:16:41 AM MAC was used as sedation for this procedure. Olegario Jimenez DO 05/11/2022 6:16:44 AM This report has been signed electronically.
--- NOTE | 2022-02-22 14:33 | OP.CCLET_ITS ---
05/11/2022 Luois Dobbs [address] [place] [address] Re : Upper GI endoscopy procedure for Koko Santiagoyer Dear Dr. Dobbs This procedure was performed on Tuesday, February 22, 2022. My impressions and recommendations are as follows: Impressions : - LA Grade B erosive esophagitis. Treated with a heater probe. - Small hiatal hernia. - Gastric erosions without bleeding. - Acute gastritis. Biopsied. - Multiple non-bleeding duodenal ulcers with no stigmata of bleeding. Biopsied. Recommendations : - Return patient to [facility] for [facility] care. - Use Protonix (pantoprazole) 40 mg PO BID for 8 weeks. - Continue present medications. My findings are described in the full procedure note, which is enclosed. If I can be of further assistance, please feel free to contact me at . Sincerely, Olegario Friend, 02/22/2022 2:32:11 PM This report has been signed electronically.
[2022-02-22] MEDS: OXcarbazepine 300 MG Tablet PO (20:35)
[2022-02-22] MEDS: Atorvastatin Calcium 10 MG Tablet PO ×2 (20:36)
[2022-02-22] MEDS: hydrOXYzine PAM 25 MG Capsule 50 MG PO (20:36)
[2022-02-22] MEDS: Mirtazapine 30 MG Tablet PO (20:36)
[2022-02-22] MEDS: ARIPiprazole 5 MG Tablet 2.5 MG PO (20:36)
[2022-02-22] MEDS: Acetaminophen 325 MG Tablet 650 MG PO (20:37)
[2022-02-23] MEDS: Vancomycin HCl 250 MG Capsule 500 MG PO ×3 (00:45→14:06)
[2022-02-23] MEDS: hydrOXYzine PAM 25 MG Capsule 50 MG PO ×2 (06:24→14:06)
[2022-02-23 06:26] VITALS: BP 136/75; PULSE 65; RESP 16; TEMP 36.6; O2SAT 95
[2022-02-23 06:55] LABS: Absolute Lymphocyte Count 1.58 X10^3/uL (0.83-4.51); Absolute Neutrophil Count 3.6 X10^3/uL (2.0-7.7); Basophil# 0.04 X10^3/uL; Basophil% 0.6 % (0-1); Eosinophil# 0.25 X10^3/uL; Hematocrit 23.3 % (37-47); Hemoglobin 7.7 g/dL (12.0-15.0); Lymphocyte # 1.58 X10^3/ul (0.83-4.51); Lymphocyte % 25.3 % (19-41); Mean Corpuscular Hgb 30.9 pg (27.0-32.0); Mean Corpuscular Volume 93.6 fL (81-99); Mean Platelet Vol. 8.8 fl (6.2-12.0); Monocyte# 0.67 X10^3/uL; Monocyte% 10.7 % (0-10); NRBC Flagged by Analyzer 0.3 % (0-5); Neutrophil # 3.59 X10^3/uL (2.7-7.7); Neutrophil % 57.6 % (47-70); POSITIVE MORPHOLOGY YES; Platelet Count 304 K/mm3 (150-450); RBC Distribution Width CV 14.3 % (11.6-14.6); RBC Distribution Width SD 47.9 fl (35.1-43.9); Red Blood Count 2.49 M/mm3 (4.2-5.4); White Blood Count 6.2 K/mm3 (4.4-11.0)
[2022-02-23 07:02] LABS: Differential Indicated SCAN CRITERIA MET
[2022-02-23 07:24] LABS: Atypical Lymphocyte RARE %; Differential Comment SCANNED; Hypochromasia 1+; Polychromasia RARE
[2022-02-23 07:41] LABS: Anion Gap 4 (5-15); BUN 14 mg/dL (7-18); BUN/Creat Ratio 18.7 RATIO (10-20); Calcium,Total 8.4 mg/dL (8.5-10.1); Chloride 110 mmol/L (98-107); Creatinine, Serum 0.75 mg/dL (0.55-1.02); EST Glomerular Filtration Rate 86 mL/min (>60); Est Glom Filt Rate - Afr Amer 104 mL/min (>60); Estimated Creatinine Clearance 64.71 ml/min; Glucose 98 mg/dL (74-106); Potassium 3.8 mmol/L (3.5-5.1); Sodium Level 143 mmol/L (136-145)
[2022-02-23 09:28] VITALS: BP 128/71; PULSE 70; RESP 18; TEMP 37; O2SAT 96
[2022-02-23] MEDS: OXcarbazepine 300 MG Tablet PO (09:29)
[2022-02-23] MEDS: Cholecalciferol (Vit D3) 125 MCG CAPSULE (5,000 UNITS) PO (09:30)
[2022-02-23] MEDS: Citalopram 10 MG Tablet PO (09:30)
[2022-02-23] MEDS: ARIPiprazole 5 MG Tablet 2.5 MG PO (09:30)
[2022-02-23] MEDS: Menthol/Lanolin/Calamine/Znox 113 GM Tube 1 APPLIC TOPICAL (09:30)
--- NOTE | 2022-02-23 13:27 | DS.PCM_ITS ---
Providers Date of Admission: 02/16/22 Date of Discharge: 02/23/22 Primary Care Physician: Dr. Louis Dobbs MD Consultations 02/16/22 15:26 Consult: [employer] T[employer] / Pulmonary Medicine Routine Consulting Provider: Pulmonary [facility] Reason for Consult: sepsis EMERGENT Consult: No Notified: Yes Date Notified: 02/16/22 Time Notified: 16:29 Method of Notification: Text 02/19/22 09:09 Consult: Gastroenterology Routine Consulting Provider: Olegario Jimenez Reason for Consult: GI Bleed, anemia EMERGENT Consult: No Notified: Yes Date Notified: 02/19/22 Time Notified: 09:52 Method of Notification: Text Reason For Visit: SEPSIS Diagnosis Discharge Diagnosis (1) Sepsis: Status: Acute Code(s): A41.9 - Sepsis, unspecified organism (2) Acute kidney injury: Status: Acute Code(s): N17.9 - Acute kidney failure, unspecified (3) Anemia: Status: Acute Code(s): D64.9 - Anemia, unspecified Plan #sepsis due to cystitis * largely resolved. Was initially admitted to the ICU, and started on broad spectrum antibiotics * she has remained stable and now off antibiotics * #C Diff colitis * on oal vancomycin. Asymptomatic. Diarrhea has resolved * #Anemia * Hb was 12.5 on admission, and dropped to 7.6. Hb today remain 7.9 * GI on board, for EGD today * On IV PPI * #JETT: Resolved #Recent COVID-19 infection: Was treated with Paxlovid. On room air. Out of isolation. #Paroxysmal afib: coumadin on hold due to anemia. #History of CVA with residual right-sided weakness * Aspirin and Plavix held due to anemia, pending GI evaluation. * To resume after EGD #Severe protein calorie malnutrition: Dietitian on board. #History of valvular heart disease: S/p mitral valve replacement. Also s/p pacemaker insertion. #Hypertension: BP meds held due to hypotension on admission. Has remained stable. DVT prophylaxis: SCDs. Coumadin on hold on account of anemia. GI prophylaxis: PPI Medications at Discharge Home Medications aspirin 81 mg tablet,delayed release (Adult Low Dose Aspirin) 81 mg PO DAILY BLOOD THINNER 11/27/20 clopidogrel 75 mg tablet (Plavix) 75 mg PO DAILY BLOOD THINNER 11/27/20 mirtazapine 30 mg tablet (Remeron) 30 mg PO QHS Check with primary doctor 03/03/21 oxcarbazepine 300 mg tablet (Trileptal) 300 mg PO BID SEIZURES 03/03/21 trazodone 150 mg tablet 150 mg PO QHS SLEEP 03/03/21 citalopram 10 mg tablet (Celexa) 10 mg PO DAILY DEPRESSION 04/09/21 cholecalciferol (vitamin D3) 125 mcg (5,000 unit) capsule 125 mcg PO DAILY supplement 12/14/21 docusate sodium 100 mg capsule 100 mg PO BID CONSTPATION 12/14/21 hydroxyzine pamoate 50 mg capsule (Vistaril) 50 mg PO TID BIPOLAR 12/14/21 rosuvastatin 5 mg tablet 5 mg PO QHS CHOLESTEROL 12/14/21 acetaminophen 500 mg tablet 500 mg PO Q6H PRN pain/fever 02/16/22 acetaminophen 500 mg tablet 500 mg PO TID PAIN 02/16/22 albuterol sulfate 90 mcg/actuation aerosol inhaler See Rx Instructions .Route .COMPLEX PRN coughing and wheezing 02/16/22 amlodipine 10 mg tablet 10 mg PO DAILY HTN 02/16/22 aripiprazole 5 mg tablet (Abilify) 2.5 mg PO BID MOOD 02/16/22 lorazepam 0.5 mg tablet (Ativan) 0.5 mg PO TID ANXIETY 02/16/22 nirmatrelvir 150 mg-ritonavir 100 mg tablets in a dose pack (EUA) (Paxlovid) 3 tab PO BID COVID 02/16/22 ondansetron 4 mg disintegrating tablet 4 mg PO Q6H PRN Nausea 02/16/22 valbenazine 80 mg capsule (Ingrezza) 80 mg PO DAILY TARDIVS DYSKINESIA 02/16/22 warfarin 4 mg tablet 4 mg PO QWEEK BLOOD THINNER 02/16/22 warfarin 5 mg tablet 5 mg PO SUMOTUTHFRSA 02/16/22 vancomycin 250 mg capsule 500 mg PO Q6 #16 caps 02/23/22 Hospital Course Operations None Procedures EGD Summary of Care Provided Minutes Spent on Discharge: 50 Hospital Course: Patient is a 56-year-old female with a past medical history as outlined who was admitted to the ED on 02/16/2022 with a complaint of altered mental status. She had associated vomiting and was very lethargic. On admission she was also hypotensive. CXR showed mild increased markings at the lung bases, with the left greater than the right. Patient was started on cefepime and vancomycin and admitted and managed for sepsis. She was initially hypotensive and tachycardic, and this resolved with IVF administration. She was also noted to have JETT, with Cr of 1.77 on admission. Lactic acidosis also resolved with administration of IVF. She was transferred out of the ICU eventually. BLood cultures were negative, and she was transitioned off antibiotics. She also developed C Diff, and diarrhea resolved after she was given oral vancomycin. Hospital course was complicated by anemia with hemoglobin dropping to 7.6 from 12.5 on admission. She was started on IV pantoprazole and gastroenterology was consulted. She had EGD which showed erosive esophagitis which was treated with heater probe and acute gastritis which was biopsied and multiple nonbleeding duodenal ulcers with no stigmata of bleeding. She was put on p.o. pantoprazole 40 mg twice daily for 8 weeks. Patient remained stable and was [facility]22. She is to follow-up with her primary care doctor and gastroenterology. She is to complete a 10-day course of oral vancomycin to com plete an 8-week course of p.o. pantoprazole. Patient seen and examined prior to discharge. She had no active complaints. Review of systems was otherwise negative. Labs and vitals reviewed. HOme meds reviewed and reconciled. Physical Exam Const alert, oriented x3 and no apparent distress Constitutional Narrative: frail General Appearance: cooperative, comfortable, well kempt and well developed Orientation / Consciousness: awake Exam Limitations: no limitations HEENT normocephalic, head/scalp atraumatic, hearing grossly normal bilaterally and moist oral mucous membranes Eyes PERRL, EOMs intact bilaterally and conjunctivae normal Neck no lymphadenopathy, supple and no JVD Resp normal respiratory effort, no retractions, no use of accessory muscles and clear to auscultation bilaterally Cardio regular rate, regular rhythm, S1 normal heart sound, S2 normal heart sound and no murmurs GI normal to inspection, nondistended, normoactive bowel sounds, soft to palpation, non-tender and non-distended Extremity normal to inspection, full ROM and no clubbing, cyanosis or edema Skin no rashes or lesions noted Neuro oriented x3, CN's II-XII intact bilaterally and moves all extremities Neuro Narrative: residual right sided weakness from previous stroke Sensorium / Orientation: awake and alert Coordination / Balance: [id number]-en-ljev test normal Psych affect normal Weight / BMI Weight Weight: 180 lb 3.2 oz Body Mass Index (BMI) 33.2 ABG / Lab / Microbiology Data Result Diagrams: 02/23/22 05:30 02/23/22 05:30 Laboratory: Laboratory Results - last 24 hr 02/23/22 05:30: WBC 6.2, RBC 2.49 L, Hgb 7.7 L, Hct 23.3 L, MCV 93.6, MCH 30.9, MCHC 33.0, RDW Std Deviation 47.9 H, RDW Coeff of Jonathon 14.3, Plt Count 304, MPV 8.8, Immature Gran % (Auto) 1.800 H, Neut % (Auto) 57.6, Lymph % (Auto) 25.3, [place] % (Auto) 10.7 H, Eos % (Auto) 4.0, Baso % (Auto) 0.6, Absolute Neuts (auto) 3.6, Absolute Lymphs (auto) 1.58, Nucleated RBC % 0.3, Differential Comment SCANNED, Atypical Lymphocytes RARE, Polychromasia RARE, Hypochromasia 1+ 02/23/22 05:30: Sodium 143, Potassium 3.8, Chloride 110 H, Carbon Dioxide 29.0, Anion Gap 4 L, BUN 14, Creatinine 0.75, Estim Creat Clear Calc 64.71, Est GFR (MDRD) Af Amer 104, Est GFR (MDRD) Non-Af 86, BUN/Creatinine Ratio 18.7, Glucose 98, Calcium 8.4 L Microbiology: Microbiology 02/16/22 12:58 Blood Culture (Wb) - Left Hand Blood Culture - Final No growth in 5 days. 02/16/22 13:25 Blood Culture (Wb) - Anticubital Left Blood Culture - Final No growth in 5 days. 02/16/22 14:15 Urine, Catheterized Urine Culture - Final Proteus mirabilis 02/17/22 06:25 Stool C. difficile GDH Antigen & Toxins - Final 02/17/22 06:25 Stool C. difficile DNA Amplification - Final 02/17/22 06:25 Stool Stool Occult Blood (SAKINA) - Final Occult Blood Positive 02/16/22 16:40 Mucosa - Nasopharyngeal Rapid RSV (DFA) - Final 02/16/22 16:40 Mucosa - Nasopharyngeal Influenza Types A,B Direct FA (SAKINA) - Final 02/16/22 14:15 Urine Catheter - Alexis Legionella Antigen - Final 02/16/22 14:15 Urine Catheter - Alexis Streptococcus pneumoniae Antigen (M - Final Streptococcus pneumonia Ag D/C Instructions Discharge Diet: Low fat / Low cholesterol Discharge Activity: Return to Normal Activity Weight Bearing Status: Weight bearing as tolerated Call your doctor if you observe: Fever of 101 or Higher, Shortness of breath, Dizziness, Swelling in the ankles and Chest pain Meaningful Use Info Meaningful Use Diagnoses (Choose all that apply): None applicable Discharge Plan Admission Admit Date/Time: 02/16/22 14:19 Primary Reason for Your Visit: sepsis, C diff, anemia Attending Provider: Gloria Frazier Primary Care Provider: Louis Dobbs Consulting Providers: Eloy Hauser ; Vu Gross ; Michelle Akins NP ; Juan Delgado ; Olegario Jimenez Instructions Patient Instructions: C diff, Anemia Discharge Orders/Prescriptions Prescriptions: New vancomycin 250 mg Capsule 500 mg PO Q6 Qty: 16 0RF Continued aspirin [Adult Low Dose Aspirin] 81 mg tablet,delayed release (DR/EC) 81 mg PO DAILY clopidogrel [Plavix] 75 mg tablet 75 mg PO DAILY citalopram [Celexa] 10 mg tablet 10 mg PO DAILY docusate sodium 100 mg Capsule 100 mg PO BID cholecalciferol (vitamin D3) 125 mcg (5,000 unit) Capsule 125 mcg PO DAILY hydroxyzine pamoate [Vistaril] 50 mg capsule 50 mg PO TID rosuvastatin 5 mg tablet 5 mg PO QHS acetaminophen 500 mg Tablet 500 mg PO Q6H PRN (Reason: pain/fever) acetaminophen 500 mg Tablet 500 mg PO TID lorazepam [Ativan] 0.5 mg Tablet 0.5 mg PO TID ondansetron 4 mg Tablet,Disintegrating 4 mg PO Q6H PRN (Reason: Nausea) aripiprazole [Abilify] 5 mg Tablet 2.5 mg PO BID warfarin 4 mg Tablet 4 mg PO QWEEK Rx Instructions: Wednesdays amlodipine 10 mg Tablet 10 mg PO DAILY warfarin 5 mg Tablet 5 mg PO SUMOTUTHFRSA Ingrezza 80 mg Capsule 80 mg PO DAILY Paxlovid (EUA) 150-100 mg Tablets,Dose Pack 3 tab PO BID albuterol sulfate 90 mcg/actuation Hfa Aerosol Inhaler See Rx Instructions .ROUTE .COMPLEX PRN (Reason: coughing and wheezing) Rx Instructions: 2 puffs trazodone 150 mg tablet 150 mg PO QHS oxcarbazepine [Trileptal] 300 mg tablet 300 mg PO BID mirtazapine [Remeron] 30 mg tablet 30 mg PO QHS Referrals / Follow Up: Louis Dobbs MD [Primary Care Provider] - Disposition Disposition (needs filled in before D/C Order can be placed): Residential Facility Charges/Coding Visit Charges Inpatient E&M: 07294 Disch Hosp
--- NOTE | 2022-02-23 14:00 | TREXTCAR_ITS ---
Diet Diet Order/Speech Therapy: 02/22/22 15:55 Diet: Regular - General Type of Dietary Supplement:: 8 oz ensure enlive tid Is pt able to select menu?: No Diet Comments: soft, easy to chew foods. Routine Orders/Code Status Enema Type: Fleetz Enema Frequency: Daily PRN Suppository Type: Dulcolax 10mg Suppository Frequency: Daily PRN O2 Frequency: PRN Keep PO Greater than or Equal to (%): 90 Wound(s) Bilateral buttocks/rectal area: Wound Type: Pressure Injury Therapies Weight Bearing: Weight bearing as tolerated Physical Therapy: Eval and Treat Occupational Therapy: Eval and Treat Problem/Diagnosis (1) Sepsis: Status: Acute Code(s): A41.9 - Sepsis, unspecified organism (2) Acute kidney injury: Status: Acute Code(s): N17.9 - Acute kidney failure, unspecified (3) Anemia: Status: Acute Code(s): D64.9 - Anemia, unspecified Plan #sepsis due to cystitis * largely resolved. Was initially admitted to the ICU, and started on broad spectrum antibiotics * she has remained stable and now off antibiotics * #C Diff colitis * on oal vancomycin. Asymptomatic. Diarrhea has resolved * #Anemia * Hb was 12.5 on admission, and dropped to 7.6. Hb today remain 7.9 * GI on board, for EGD today * On IV PPI * #JETT: Resolved #Recent COVID-19 infection: Was treated with Paxlovid. On room air. Out of isolation. #Paroxysmal afib: coumadin on hold due to anemia. #History of CVA with residual right-sided weakness * Aspirin and Plavix held due to anemia, pending GI evaluation. * To resume after EGD #Severe protein calorie malnutrition: Dietitian on board. #History of valvular heart disease: S/p mitral valve replacement. Also s/p pacemaker insertion. #Hypertension: BP meds held due to hypotension on admission. Has remained stable. DVT prophylaxis: SCDs. Coumadin on hold on account of anemia. GI prophylaxis: PPI Allergies/Procedures Done in Hospital Allergies amoxicillin [Amoxicillin] Allergy (Verified 02/16/22 13:19) Hives latex Allergy (Verified 02/16/22 13:19) Rash lisinopril Allergy (Verified 07/13/22 13:19) Unknown Penicillins Allergy (Verified 02/16/22 13:19) Hives venom-honey bee [bee venom (honey bee)] Allergy (Verified 02/16/22 13:19) Swelling ciprofloxacin [From Cipro] Adverse Reaction (Verified 02/16/22 13:19) Nausea/Vom/Diarrhea Type of Care/Length of Stay Estimated LOS: Convalescent Care Less Than 30 days Type of Care Needed: Skilled Rehab Potential: Fair Prognosis: Fair Additional Orders/Day of Discharge Day of Discharge: 02/23/22 Dietary and Speech Recommendations Dietitian Recommendations/Changes: continue regular diet; continue 8oz ensure enlive w/ meals for additional calories/protein if consumed. Discharge Plan Admission Admit Date/Time: 02/16/22 14:19 Primary Reason for Your Visit: sepsis, C diff, anemia Attending Provider: Gloria Frazier Primary Care Provider: Louis Dobbs Consulting Providers: Eloy Hauser ; Vu Gross ; Michelle Akins NP ; Juan Delgado ; Olegario Jimenez Instructions Patient Instructions: C diff, Anemia Discharge Orders/Prescriptions Prescriptions: New vancomycin 250 mg Capsule 500 mg PO Q6 Qty: 16 0RF Continued aspirin [Adult Low Dose Aspirin] 81 mg tablet,delayed release (DR/EC) 81 mg PO DAILY clopidogrel [Plavix] 75 mg tablet 75 mg PO DAILY citalopram [Celexa] 10 mg tablet 10 mg PO DAILY docusate sodium 100 mg Capsule 100 mg PO BID cholecalciferol (vitamin D3) 125 mcg (5,000 unit) Capsule 125 mcg PO DAILY hydroxyzine pamoate [Vistaril] 50 mg capsule 50 mg PO TID rosuvastatin 5 mg tablet 5 mg PO QHS acetaminophen 500 mg Tablet 500 mg PO Q6H PRN (Reason: pain/fever) acetaminophen 500 mg Tablet 500 mg PO TID lorazepam [Ativan] 0.5 mg Tablet 0.5 mg PO TID ondansetron 4 mg Tablet,Disintegrating 4 mg PO Q6H PRN (Reason: Nausea) aripiprazole [Abilify] 5 mg Tablet 2.5 mg PO BID warfarin 4 mg Tablet 4 mg PO QWEEK Rx Instructions: Wednesdays amlodipine 10 mg Tablet 10 mg PO DAILY warfarin 5 mg Tablet 5 mg PO SUMOTUTHFRSA Ingrezza 80 mg Capsule 80 mg PO DAILY Paxlovid (EUA) 150-100 mg Tablets,Dose Pack 3 tab PO BID albuterol sulfate 90 mcg/actuation Hfa Aerosol Inhaler See Rx Instructions .ROUTE .COMPLEX PRN (Reason: coughing and wheezing) Rx Instructions: 2 puffs trazodone 150 mg tablet 150 mg PO QHS oxcarbazepine [Trileptal] 300 mg tablet 300 mg PO BID mirtazapine [Remeron] 30 mg tablet 30 mg PO QHS Referrals / Follow Up: Louis Dobbs MD [Primary Care Provider] - Disposition Disposition (needs filled in before D/C Order can be placed): Assisted Facility
[2022-02-23 14:04] VITALS: BP 137/65; PULSE 77; RESP 18; TEMP 36.7; O2SAT 98
--- NOTE | 2022-02-23 15:39 | CASEMGMT ---
Social Work SW faxed discharge orders to [facility] @ [facility].?[facility] transportation set up through [facility] for 4:15pm.?SW called [facility] to inform the facility of pt's pending arrival.? SW notified pt of her transport time and discussed SW notifying her mother of her discharge to [facility]. Pt was agreeable. Sw notified pt's nurse, Valerie of her transport pick-up time. AURORA called pt mother, Rebecca Boyd, to update her of pt discharge and return to [facility]. Pt mother was appreciative of the information. Plan: Discharge to [facility] through [facility] @ 4:15pm ERROL Ahn
== END 2022-02-23 16:32 | disposition skilled nursing facility (03) | DRG 689 ==
LOC: ED 14:08 → ICU 14:35 → MS3 02-18 09:02
PROVIDERS: Internal Medicine Critical Care Medicine; Internal Medicine Gastroenterology; Admitting Provider Internal Medicine; Emergency Provider Emergency Medicine; PCP Internal Medicine; Visit Provider Student in an Organized Health Care Education/Training Program
PROC: 0DJ08ZZ Inspection of Upper Intestinal Tract, Via Natural or Artificial Opening Endoscopic (ICD-10-PCS; CPT 43235; principal; 2022-02-22 13:40)
DX: N30.00 Acute cystitis without hematuria (principal); J13 Pneumonia due to Streptococcus pneumoniae; A04.72 Enterocolitis due to Clostridium difficile, not specified as recurrent; I42.8 Other cardiomyopathies; D68.32 Hemorrhagic disorder due to extrinsic circulating anticoagulants; D62 Acute posthemorrhagic anemia; N17.9 Acute kidney failure, unspecified; I69.353 Hemiplegia and hemiparesis following cerebral infarction affecting right non-dominant side; J44.0 Chronic obstructive pulmonary disease with (acute) lower respiratory infection; I49.5 Sick sinus syndrome; I48.0 Paroxysmal atrial fibrillation; I71.4 Abdominal aortic aneurysm, without rupture; F31.9 Bipolar disorder, unspecified; F20.9 Schizophrenia, unspecified; F41.9 Anxiety disorder, unspecified; E78.5 Hyperlipidemia, unspecified; I34.0 Nonrheumatic mitral (valve) insufficiency; K29.00 Acute gastritis without bleeding; K44.9 Diaphragmatic hernia without obstruction or gangrene; K20.90 Esophagitis, unspecified without bleeding; I10 Essential (primary) hypertension; Z79.899 Other long term (current) drug therapy; Z79.01 Long term (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 anticoagulants; Z79.82 Long term (current) use of aspirin; Z79.02 Long term (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 antithrombotics/antiplatelets; Z95.3 Presence of xenogenic heart valve; Z95.0 Presence of cardiac pacemaker; Z87.891 Personal history of nicotine dependence; E66.9 Obesity, unspecified; U09.9 Post COVID-19 condition, unspecified; K26.9 Duodenal ulcer, unspecified as acute or chronic, without hemorrhage or perforation; K25.9 Gastric ulcer, unspecified as acute or chronic, without hemorrhage or perforation; Z68.33 Body mass index [BMI] 33.0-33.9, adult
CPT/HCPCS: 36415; 36600; 70450; 71045; 80048; 80076; 80202; 81001; 82274; 82803; 83605; 83735; 84100; 84439; 84443; 84484; 85025; 85610; 87040; 87077; 87086; 87088; 87186; 87449; 87493; 87641; 87804; 87807; 88305; 88342; 93005; 94640; 97110; 97162; 97167; 97530; 97535; 97802; 99251; 99285; 99406; J7030; J7040; J7050; A4216; G0463; J2405

== ENCOUNTER 2022-05-30 11:23 | Emergency (ER) | payer MEDICAID, SELFPAY ==
[2022-05-30 11:24] VITALS: BP 114/101; PULSE 99; RESP 18; TEMP 36.5; O2SAT 99; BMI 29.9
--- NOTE | 2022-05-30 11:38 | EDS_ITS ---
HPI History of Present Illness Chief Complaint: Anxiety Informant: patient and EMS Narrative Narrative: -year-old female presenting to the emergency room with a chief complaint of anxiety attack. She states that this occurred during the night. Neighbor called EMS as she was hyperventilating. She does not know what she is prescribed for her anxiety stating I take a butt load. She did not take her medications this morning for unknown reasons. She states she did take them last night. When asked what she is allergic to she states I dont know. She states that she saw her psychiatrist last week does not really remember what they talked about. She denies suicidal or homicidal ideation. The last time the patient was in the emergency room for anxiety I did review that chart. 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 Former smoker Hemiparesis due to old cerebrovascular accident jail (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 anticoagulants Mitral regurgitation Non-ischemic cardiomyopathy Schizophrenia Sick sinus syndrome Stroke/cerebrovascular accident Unsteady gait Home Medications aspirin 81 mg tablet,delayed release (Adult Low Dose Aspirin) 81 mg PO DAILY BLOOD THINNER 11/27/20 [History Last Taken 02/16/22] mirtazapine 30 mg tablet (Remeron) 30 mg PO QHS Check with primary doctor 03/03/21 [History Last Taken 02/15/22] oxcarbazepine 300 mg tablet (Trileptal) 300 mg PO BID SEIZURES 03/03/21 [History Last Taken 02/16/22] trazodone 150 mg tablet 150 mg PO QHS SLEEP 03/03/21 [History Last Taken 02/15/22] citalopram 10 mg tablet (Celexa) 10 mg PO DAILY DEPRESSION 04/09/21 [History Last Taken 02/16/22] cholecalciferol (vitamin D3) 125 mcg (5,000 unit) capsule 125 mcg PO DAILY supplement 12/14/21 [History Last Taken 02/16/22] docusate sodium 100 mg capsule 100 mg PO BID CONSTPATION 12/14/21 [History Last Taken 02/16/22] hydroxyzine pamoate 50 mg capsule (Vistaril) 50 mg PO TID BIPOLAR 12/14/21 [History Last Taken 02/16/22] rosuvastatin 5 mg tablet 5 mg PO QHS CHOLESTEROL 12/14/21 [History Last Taken 02/10/22] acetaminophen 500 mg tablet 500 mg PO Q6H PRN pain/fever 02/16/22 [History Last Taken Unknown] acetaminophen 500 mg tablet 500 mg PO TID PAIN 02/16/22 [History Last Taken 02/16/22] albuterol sulfate 90 mcg/actuation aerosol inhaler See Rx Instructions .Route .COMPLEX PRN coughing and wheezing 02/16/22 [History Last Taken Unknown] amlodipine 10 mg tablet 10 mg PO DAILY HTN 02/16/22 [History Last Taken 02/16/22] lorazepam 0.5 mg tablet (Ativan) 0.5 mg PO TID ANXIETY 02/16/22 [History Last Taken 02/16/22] nirmatrelvir 150 mg-ritonavir 100 mg tablets in a dose pack (EUA) (Paxlovid) 3 tab PO BID COVID 02/16/22 [History Last Taken 02/16/22] ondansetron 4 mg disintegrating tablet 4 mg PO Q6H PRN Nausea 02/16/22 [History Last Taken 02/16/22] valbenazine 80 mg capsule (Ingrezza) 80 mg PO DAILY TARDIVS DYSKINESIA 02/16/22 [History Last Taken 02/16/22] warfarin 4 mg tablet 4 mg PO QWEEK BLOOD THINNER 02/16/22 [History Last Taken Unknown] warfarin 5 mg tablet 5 mg PO SUMOTUTHFRSA 02/16/22 [History Last Taken 02/15/22] pantoprazole 40 mg tablet,delayed release 40 mg PO BID 8 weeks #112 tabs 02/23/22 [Rx Last Taken Unknown] vancomycin 250 mg capsule 500 mg PO Q6 #16 caps 02/23/22 [Rx Last Taken Unknown] aripiprazole 5 mg tablet (Abilify) 2.5 mg PO DAILY #15 tabs 04/06/22 [Rx Last Taken Unknown] benztropine 0.5 mg tablet 0.5 mg PO DAILY #30 tabs 04/06/22 [Rx Last Taken Unknown] hydroxyzine pamoate 50 mg capsule (Vistaril) 50 mg PO BID PRN anxiety #10 caps 05/30/22 [Rx Last Taken Unknown] Allergy/AdvReac Type Severity Reaction Status Date / Time amoxicillin [Amoxicillin] Allergy Hives Verified 05/30/22 11:29 latex Allergy Rash Verified 05/30/22 11:29 lisinopril Allergy Unknown Verified 05/30/22 11:29 Penicillins Allergy Hives Verified 05/30/22 11:29 venom-honey bee Allergy Swelling Verified 05/30/22 11:29 [bee venom (honey bee)] ciprofloxacin [From Cipro] AdvReac Nausea/Vom/ Verified 05/30/22 11:29 Diarrhea Surgical History History of History of mitral valve replacement with bioprosthetic valve (07/23/09) History of partial colectomy Presence of cardiac pacemaker (09/21/20) Social History current occupational status: unemployed Smoking Status: Current every day smoker tobacco type: cigarettes second hand exposure: Yes alcohol intake: current alcohol intake frequency: holidays/special occasions only details: RARELY substance use type: does not use caffeine: Yes Type: carbonated beverages Number of servings: 1 what type of physical activity do you participate in: none seatbelt use: always ROS ROS ED Constitutional Constitutional ED: Denies chills or weight loss Eyes Eyes: Denies change in vision or diplopia ENT ENT ED: Denies ear pain, rhinorrhea or sore throat Cardiovascular Cardiovascular: Denies chest pain, orthopnea, palpitations or racing heartbeat Respiratory/Chest Respiratory/Chest: Denies cough, dyspnea or orthopnea Gastrointestinal Gastrointestinal: Denies abdominal pain, diarrhea, nausea or vomiting Genitourinary Genitourinary ED: Denies dysuria, hematuria or urinary frequency Musculoskeletal Musculoskeletal: Denies arthralgias or myalgias Integumentary Denies abscess or rash Neurologic Neurologic: Denies headache(s) or weakness Psychiatric Psychiatric: Reports anxiety; Denies depression, suicidal ideation or suicidal thoughts Endocrine Endocrinology: Denies polydipsia, polyphagia or polyuria Allergic/Immunologic Allergic/Immunologic ED: Denies mouth swelling, tongue swelling or urticaria EXAM Physical Exam Const Vital Signs: 05/30/22 11:24 05/30/22 11:32 Temperature 97.7 F L Temperature Source Temporal Pulse Rate 99 Respiratory Rate 18 Respiratory Pattern Normal Blood Pressure 114/101 H Blood Pressure Mean 105 Pulse Ox 99 Oxygen Delivery Method Room Air Positive well nourished and well developed General Appearance ED: well developed HEENT Reports normocephalic, head/scalp atraumatic and moist mucous membranes Eyes PERRL and EOMs intact bilaterally Neck no lymphadenopathy, supple and no JVD Resp normal respiratory effort and clear to auscultation bilaterally Cardio regular rate, regular rhythm and no murmurs GI normal to inspection, nondistended, normoactive bowel sounds and non-tender Palpation: soft Back/Spine no CVA tenderness and normal ROM Extremity normal to inspection General Extremety ED: Negative for edema General Extremity: Negative for edema Neuro oriented x3 and CN's II-XII intact bilaterally Sensorium / Orientation: alert Motor Exam: strength 5/5 throughout Psych Psych Narrative: Patient appears to be rocking back and forth in the bed occasionally flopping herself backwards in the bed. She answers and 1-2 word sentences seemingly out of breath but without actual tachypnea. Mood & Affect: anxious; Negative for depressed or tearful Skin no rashes or lesions noted and no wounds MDM MDM MDM Narrative Medical decision making narrative: While the patient is stating that she is having a panic attack her actions are suggestive more of behavioral patterns. We gave her a milligram of Ativan. I can write for the patient to have some Vistaril at home but any further benzodiazepine should come from her psychiatrist or PCP. Discharge Plan Triage Chief Complaint: Anxiety ED Provider: Dillon Cabezas Dx/Rx/DC Orders Clinical Impression: Anxiety, Bipolar disorder Instructions: ED Anxiety Reaction Prescriptions: New hydroxyzine pamoate [Vistaril] 50 mg capsule 50 mg PO BID PRN (Reason: anxiety) Qty: 10 0RF No Action aspirin [Adult Low Dose Aspirin] 81 mg tablet,delayed release (DR/EC) 81 mg PO DAILY citalopram [Celexa] 10 mg tablet 10 mg PO DAILY benztropine 0.5 mg tablet 0.5 mg PO DAILY Qty: 30 4RF aripiprazole [Abilify] 5 mg tablet 2.5 mg PO DAILY Qty: 15 4RF docusate sodium 100 mg Capsule 100 mg PO BID cholecalciferol (vitamin D3) 125 mcg (5,000 unit) Capsule 125 mcg PO DAILY hydroxyzine pamoate [Vistaril] 50 mg capsule 50 mg PO TID rosuvastatin 5 mg tablet 5 mg PO QHS acetaminophen 500 mg Tablet 500 mg PO Q6H PRN (Reason: pain/fever) acetaminophen 500 mg Tablet 500 mg PO TID lorazepam [Ativan] 0.5 mg Tablet 0.5 mg PO TID ondansetron 4 mg Tablet,Disintegrating 4 mg PO Q6H PRN (Reason: Nausea) warfarin 4 mg Tablet 4 mg PO QWEEK Rx Instructions: Wednesdays amlodipine 10 mg Tablet 10 mg PO DAILY warfarin 5 mg Tablet 5 mg PO SUMOTUTHFRSA Ingrezza 80 mg Capsule 80 mg PO DAILY Paxlovid (EUA) 150-100 mg Tablets,Dose Pack 3 tab PO BID albuterol sulfate 90 mcg/actuation Hfa Aerosol Inhaler See Rx Instructions .ROUTE .COMPLEX PRN (Reason: coughing and wheezing) Rx Instructions: 2 puffs vancomycin 250 mg Capsule 500 mg PO Q6 Qty: 16 0RF pantoprazole 40 mg tablet,delayed release (DR/EC) 40 mg PO BID 56 Days Qty: 112 0RF trazodone 150 mg tablet 150 mg PO QHS oxcarbazepine [Trileptal] 300 mg tablet 300 mg PO BID mirtazapine [Remeron] 30 mg tablet 30 mg PO QHS Primary Care Provider: Louis Dobbs Referrals: Louis Dobbs MD [Primary Care Provider] - Activity Restrictions/Additional Instructions: Please follow-up with your psychiatrist. Disposition Disposition: Home, Self Care
[2022-05-30] MEDS: LORazepam 1 MG Tablet PO (11:42)
--- NOTE | 2022-05-30 13:07 | CM.ED ---
A[facility] Note MD updated this typewriter assembly and parts inspector that he felt that patient's presentation was primarily behavioral and she is presenting as she had done earlier this year, hyperventilating when someone enters the room but being fine when the door was shut. He did not feel that SW needed to be involved. AURORA advised MD that this typewriter assembly and parts inspector will meet with patient to discuss IOP/PHP and the programming that [facility] provides. AURORA and [employer] [place] met with patient in her room. Patient said that she is [facility], Krupa Dowd. AURORA reviewed with patient the IOP/PHP program and patient was in agreement with referral to IOP/PHP. SW inquired if patient had any other issues or concerns and patient said no. SW called and left voice mail message for behavioral health. Fela DOTY
[2022-05-30 13:14] VITALS: PULSE 107; RESP 26; O2SAT 100
== END 2022-05-30 13:16 | disposition home or self-care (01) ==
PROVIDERS: Emergency Provider Emergency Medicine; PCP Internal Medicine; Visit Provider Emergency Medicine
DX: F31.9 Bipolar disorder, unspecified (principal); J44.9 Chronic obstructive pulmonary disease, unspecified; F41.9 Anxiety disorder, unspecified; N18.9 Chronic kidney disease, unspecified; F17.210 Nicotine dependence, cigarettes, uncomplicated
CPT/HCPCS: 99285

== ENCOUNTER 2022-06-08 16:04 | Emergency (ER) | payer MEDICAID, SELFPAY ==
[2022-06-08 16:05] VITALS: BP 135/92; PULSE 102; RESP 16; TEMP 36.8; O2SAT 97; BMI 28.3
--- NOTE | 2022-06-08 16:29 | EX.ED.VIS.PS ---
HPI HPI - Psych History of Present Illness Chief Complaint: Anxiety Narrative Narrative: 56-year-old female with history of bipolar disorder and schizophrenia presenting with anxiety. She states her anxiety started yesterday. This is a chronic issue which waxes and wanes. She states she previously was receiving Ativan from her primary care physician (Dr. Dobbs) for anxiety. She states she does not recall what medications he is on chronically for her anxiety or schizophrenia. She states this is because she receives them in a pack through the mail. She states that she was here a few days ago and was given some medication but does not recall what it is. I did ask her if it was the Vistaril that was prescribed and she states I do not know. She states she does not have any Ativan. She denies pain anywhere but does have associated shortness of breath with her asthma. She is not had a fever, chills, cough. Although she is able to give me her history and speak to me clearly she states she does not know the year, the month, the day, the president. She was able to tell me after this that she has home health care that comes Monday and Monday, but she does not know how long they stay. She states that her 13-year-old son typically cares for her most of the time. 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 Mitral regurgitation Non-ischemic cardiomyopathy Schizophrenia Sick sinus syndrome Stroke/cerebrovascular accident Unsteady gait Home Medications aspirin 81 mg tablet,delayed release (Adult Low Dose Aspirin) 81 mg PO DAILY BLOOD THINNER 11/27/20 [History Last Taken 02/16/22] mirtazapine 30 mg tablet (Remeron) 30 mg PO QHS Check with primary doctor 03/03/21 [History Last Taken 02/15/22] oxcarbazepine 300 mg tablet (Trileptal) 300 mg PO BID SEIZURES 03/03/21 [History Last Taken 02/16/22] trazodone 150 mg tablet 150 mg PO QHS SLEEP 03/03/21 [History Last Taken 02/15/22] citalopram 10 mg tablet (Celexa) 10 mg PO DAILY DEPRESSION 04/09/21 [History Last Taken 02/16/22] cholecalciferol (vitamin D3) 125 mcg (5,000 unit) capsule 125 mcg PO DAILY supplement 12/14/21 [History Last Taken 02/16/22] docusate sodium 100 mg capsule 100 mg PO BID CONSTPATION 12/14/21 [History Last Taken 02/16/22] hydroxyzine pamoate 50 mg capsule (Vistaril) 50 mg PO TID BIPOLAR 12/14/21 [History Last Taken 02/16/22] rosuvastatin 5 mg tablet 5 mg PO QHS CHOLESTEROL 12/14/21 [History Last Taken 02/10/22] acetaminophen 500 mg tablet 500 mg PO Q6H PRN pain/fever 02/16/22 [History Last Taken Unknown] acetaminophen 500 mg tablet 500 mg PO TID PAIN 02/16/22 [History Last Taken 02/16/22] albuterol sulfate 90 mcg/actuation aerosol inhaler See Rx Instructions .Route .COMPLEX PRN coughing and wheezing 02/16/22 [History Last Taken Unknown] amlodipine 10 mg tablet 10 mg PO DAILY HTN 02/16/22 [History Last Taken 02/16/22] lorazepam 0.5 mg tablet (Ativan) 0.5 mg PO TID ANXIETY 02/16/22 [History Last Taken 02/16/22] nirmatrelvir 150 mg-ritonavir 100 mg tablets in a dose pack (EUA) (Paxlovid) 3 tab PO BID COVID 02/16/22 [History Last Taken 02/16/22] ondansetron 4 mg disintegrating tablet 4 mg PO Q6H PRN Nausea 02/16/22 [History Last Taken 02/16/22] valbenazine 80 mg capsule (Ingrezza) 80 mg PO DAILY TARDIVS DYSKINESIA 02/16/22 [History Last Taken 02/16/22] warfarin 4 mg tablet 4 mg PO QWEEK BLOOD THINNER 02/16/22 [History Last Taken Unknown] warfarin 5 mg tablet 5 mg PO SUMOTUTHFRSA 02/16/22 [History Last Taken 02/15/22] pantoprazole 40 mg tablet,delayed release 40 mg PO BID 8 weeks #112 tabs 02/23/22 [Rx Last Taken Unknown] vancomycin 250 mg capsule 500 mg PO Q6 #16 caps 02/23/22 [Rx Last Taken Unknown] aripiprazole 5 mg tablet (Abilify) 2.5 mg PO DAILY #15 tabs 04/06/22 [Rx Last Taken Unknown] benztropine 0.5 mg tablet 0.5 mg PO DAILY #30 tabs 04/06/22 [Rx Last Taken Unknown] hydroxyzine pamoate 50 mg capsule (Vistaril) 50 mg PO BID PRN anxiety #10 caps 05/30/22 [Rx Last Taken Unknown] hydroxyzine pamoate 50 mg capsule (Vistaril) 50 mg PO TID PRN anxiety #14 caps 06/08/22 [Rx Last Taken Unknown] Allergy/AdvReac Type Severity Reaction Status Date / Time amoxicillin [Amoxicillin] Allergy Hives Verified 06/08/22 16:07 latex Allergy Rash Verified 06/08/22 16:07 lisinopril Allergy Unknown Verified 06/08/22 16:07 Penicillins Allergy Hives Verified 06/08/22 16:07 venom-honey bee Allergy Swelling Verified 06/08/22 16:07 [bee venom (honey bee)] ciprofloxacin [From Cipro] AdvReac Nausea/Vom/ Verified 06/08/22 16:07 Diarrhea Surgical History History of History of mitral valve replacement with bioprosthetic valve (07/23/09) History of partial colectomy Presence of cardiac pacemaker (09/21/20) Social History current occupational status: unemployed Smoking Status: Current every day smoker tobacco type: cigarettes second hand exposure: Yes alcohol intake: current alcohol intake frequency: holidays/special occasions only details: RARELY substance use type: does not use caffeine: Yes Type: carbonated beverages Number of servings: 1 what type of physical activity do you participate in: none seatbelt use: always ROS ROS ED Constitutional Constitutional ED: Denies chills or fever(s) Eyes Eyes: Denies change in vision ENT ENT ED: Denies rhinorrhea or sore throat Cardiovascular Cardiovascular: Denies chest pain or palpitations Respiratory/Chest Respiratory/Chest: Denies cough or dyspnea Gastrointestinal Gastrointestinal: Denies abdominal pain or constipation Genitourinary Genitourinary ED: Denies dysuria or hematuria Musculoskeletal Musculoskeletal: Denies arthralgias or back pain Integumentary Denies abscess Neurologic Neurologic: Denies headache(s) or paresthesias Psychiatric Psychiatric: Reports anxiety; Denies suicidal ideation or suicidal thoughts Endocrine Endocrinology: Denies polydipsia or polyphagia EXAM Physical Exam Const Vital Signs: 06/08/22 16:05 06/08/22 18:39 06/08/22 20:00 Temperature 98.2 F Temperature Source Temporal Pulse Rate 102 H Respiratory Rate 16 22 H 20 H Blood Pressure 135/92 H Blood Pressure Mean 106 Pulse Ox 97 Oxygen Delivery Method Room Air 06/08/22 21:14 Temperature Temperature Source Pulse Rate Respiratory Rate Blood Pressure 146/66 H Blood Pressure Mean Pulse Ox Oxygen Delivery Method Positive well nourished General Appearance ED: NAD; Negative for pallor HEENT Reports moist mucous membranes normocephalic and atraumatic Eyes PERRL and EOMs intact bilaterally General Eye ED: Negative for pale conjunctiva or scleral icterus Resp normal respiratory effort and clear to auscultation bilaterally Auscultation: Negative for rales, rhonchi or wheezes Cardio Rate: tachycardic Rhythm: regular rhythm GI non-tender Extremity normal to inspection Neuro CN's II-XII intact bilaterally Sensorium / Orientation: alert, oriented to person, oriented to place and orientation impaired Motor Exam: strength 5/5 throughout Psych denies hallucinations, denies homicidal ideation and denies suicidal ideation Appearance: bizarre Attitude: bizarre Activity / Motor Behavior: psychomotor agitation and disorganized; Negative for appropriate eye contact Thought Process: disorganized and confused Thought Content: No suicidality, No homicidality and No hallucination(s) Attention / Concentration: attention grossly impaired Memory / Cognition: memory grossly impaired Insight: limited Judgement: limited Skin General Skin Exam: Negative for jaundice or pallor MDM MDM MDM Narrative Medical decision making narrative: Blood work is obtained and I did talk with social media designer came and spoke with the patient. They were able to confirm this is her baseline mentation and this was confirmed through her home health healthcare management consultant. It is confirmed that she does have home health care as well. She was given 0.5 of Ativan. Blood work is obtained and CBC and BMP are normal. High-sensitivity troponin is 12. EKG on my interpretation shows an atrial sensed ventricular paced rhythm at 86 bpm without sign of ischemic changes dysrhythmia. Chest x-ray on my interpretation did not show any acute cardiopulmonary process. The radiologist interpreted this and agrees. Urine drug screen negative. hCG negative. EtOH within normal limits. INR is subtherapeutic. I spoke with Dr. Sarkar who is on-call for Dr. Dobbs. She recommended close follow-up and to continue her Coumadin as prescribed. She also recommended not giving her any Ativan as she has not made an office visit and will need to follow-up her INR anyway. Patient was given more Vistaril as needed for anxiety. She is discharged in stable condition. Impression: 1. Anxiety 2. History of schizophrenia Lab Data Labs: Laboratory Results - last 24 hr 06/08/22 06/08/22 06/08/22 16:25 16:25 16:25 WBC 6.4 RBC 4.40 Hgb 11.0 L Hct 34.6 L MCV 78.6 L MCH 25.0 L MCHC 31.8 L RDW Std Deviation 52.0 H RDW Coeff of Jonathon 18.3 H Plt Count 262 MPV 10.1 Immature Gran % (Auto) 0.300 Neut % (Auto) 70.7 H Lymph % (Auto) 18.1 L Dupage % (Auto) 9.0 Eos % (Auto) 1.3 Baso % (Auto) 0.6 Absolute Neuts (auto) 4.5 Absolute Lymphs (auto) 1.15 Nucleated RBC % 0 PT INR Sodium 139 Potassium 4.2 Chloride 109 H Carbon Dioxide 25.0 Anion Gap 5 BUN 11 Creatinine 0.88 Estim Creat Clear Calc 60.46 Est GFR (MDRD) Af Amer 86 Est GFR (MDRD) Non-Af 71 BUN/Creatinine Ratio 12.5 Glucose 110 H Calcium 9.3 Troponin I High Sens 12 Serum , Qual Urine Opiates Screen Urine Methadone Screen Ur Barbiturates Screen Ur Phencyclidine Scrn Ur Amphetamines Screen MDMA (Ecstasy) Screen U Benzodiazepines Scrn Urine Cocaine Screen U Cannabinoids Screen Ur Drug Screen Comment Ethyl Alcohol < 3.0 1106/08/22 06/08/22 16:25 16:25 20:05 WBC RBC Hgb Hct MCV MCH MCHC RDW Std Deviation RDW Coeff of Jonathon Plt Count MPV Immature Gran % (Auto) Neut % (Auto) Lymph % (Auto) Dupage % (Auto) Eos % (Auto) Baso % (Auto) Absolute Neuts (auto) Absolute Lymphs (auto) Nucleated RBC % PT 15.0 H INR 1.2 Sodium Potassium Chloride Carbon Dioxide Anion Gap BUN Creatinine Estim Creat Clear Calc Est GFR (MDRD) Af Amer Est GFR (MDRD) Non-Af BUN/Creatinine Ratio Glucose Calcium Troponin I High Sens Serum , Qual NEGATIVE Urine Opiates Screen NEGATIVE Urine Methadone Screen NEGATIVE Ur Barbiturates Screen NEGATIVE Ur Phencyclidine Scrn NEGATIVE Ur Amphetamines Screen NEGATIVE MDMA (Ecstasy) Screen NEGATIVE U Benzodiazepines Scrn NEGATIVE Urine Cocaine Screen NEGATIVE U Cannabinoids Screen NEGATIVE Ur Drug Screen Comment Ethyl Alcohol Radiography Diagnostic Testing: Clinical Impression(s) from Imaging Studies Chest X-Ray 06/08/22 16:40 IMPRESSION: No radiographic evidence of acute cardiopulmonary disease. Electronically Signed: Ko Barnes MD at 17:11 EDT Reading Location ID and State: [facility] / [place] Tel , Service support , Discharge Plan Triage Chief Complaint: Anxiety ED Provider: Tenzin Melendez Dx/Rx/DC Orders Instructions: ED Anxiety Reaction Prescriptions: New hydroxyzine pamoate [Vistaril] 50 mg capsule 50 mg PO TID PRN (Reason: anxiety) Qty: 14 0RF No Action aspirin [Adult Low Dose Aspirin] 81 mg tablet,delayed release (DR/EC) 81 mg PO DAILY citalopram [Celexa] 10 mg tablet 10 mg PO DAILY benztropine 0.5 mg tablet 0.5 mg PO DAILY Qty: 30 4RF aripiprazole [Abilify] 5 mg tablet 2.5 mg PO DAILY Qty: 15 4RF docusate sodium 100 mg Capsule 100 mg PO BID cholecalciferol (vitamin D3) 125 mcg (5,000 unit) Capsule 125 mcg PO DAILY hydroxyzine pamoate [Vistaril] 50 mg capsule 50 mg PO TID rosuvastatin 5 mg tablet 5 mg PO QHS acetaminophen 500 mg Tablet 500 mg PO Q6H PRN (Reason: pain/fever) acetaminophen 500 mg Tablet 500 mg PO TID lorazepam [Ativan] 0.5 mg Tablet 0.5 mg PO TID ondansetron 4 mg Tablet,Disintegrating 4 mg PO Q6H PRN (Reason: Nausea) warfarin 4 mg Tablet 4 mg PO QWEEK Protocol: Dose Management Condition: Monday Dose/Route: 5 mg Instruction: 1 x 5 mg tablet Condition: Monday Dose/Route: 2.5 mg Instruction: 0.5 x 5 mg tablets Condition: Monday Dose/Route: 2.5 mg Instruction: 0.5 x 5 mg tablets Condition: Monday Dose/Route: 2.5 mg Instruction: 0.5 x 5 mg tablets Condition: Dose/Route: 2.5 mg Instruction: 0.5 x 5 mg tablets Condition: Monday Dose/Route: 5 mg Instruction: 1 x 5 mg tablet Condition: Monday Dose/Route: 5 mg Instruction: 1 x 5 mg tablet Protocol Text: Adjustment Start Date: Monday06/06/22 INR Value: 2.0 INR Date: 06/06/22 Recheck Date: 06/13/22 Rx Instructions: Wednesdays amlodipine 10 mg Tablet 10 mg PO DAILY warfarin 5 mg Tablet 5 mg [facility] Protocol: Dose Management Condition: Monday Dose/Route: 5 mg Instruction: 1 x 5 mg tablet Condition: Monday Dose/Route: 2.5 mg Instruction: 0.5 x 5 mg tablets Condition: Monday Dose/Route: 2.5 mg Instruction: 0.5 x 5 mg tablets Condition: Monday Dose/Route: 2.5 mg Instruction: 0.5 x 5 mg tablets Condition: Dose/Route: 2.5 mg Instruction: 0.5 x 5 mg tablets Condition: Monday Dose/Route: 5 mg Instruction: 1 x 5 mg tablet Condition: Monday Dose/Route: 5 mg Instruction: 1 x 5 mg tablet Protocol Text: Adjustment Start Date: Monday06/06/22 INR Value: 2.0 INR Date: 06/06/22 Recheck Date: 06/13/22 Ingrezza 80 mg Capsule 80 mg PO DAILY Paxlovid (EUA) 150-100 mg Tablets,Dose Pack 3 tab PO BID albuterol sulfate 90 mcg/actuation Hfa Aerosol Inhaler See Rx Instructions .ROUTE .COMPLEX PRN (Reason: coughing and wheezing) Rx Instructions: 2 puffs vancomycin 250 mg Capsule 500 mg PO Q6 Qty: 16 0RF pantoprazole 40 mg tablet,delayed release (DR/EC) 40 mg PO BID 56 Days Qty: 112 0RF hydroxyzine pamoate [Vistaril] 50 mg capsule 50 mg PO BID PRN (Reason: anxiety) Qty: 10 0RF trazodone 150 mg tablet 150 mg PO QHS oxcarbazepine [Trileptal] 300 mg tablet 300 mg PO BID mirtazapine [Remeron] 30 mg tablet 30 mg PO QHS Primary Care Provider: Louis Dobbs Referrals: Louis Dobbs MD [Primary Care Provider] - Disposition Disposition: Home, Self Care Discharge Date/Time: 06/08/22 21:36
[2022-06-08] MEDS: LORazepam 2 MG/ML Syringe 0.5 MG IV (16:34)
--- NOTE | 2022-06-08 16:40 | RAD_ITS ---
INDICATION: ams EXAMINATION/TECHNIQUE: X-RAY - XR Chest 1 View COMPARISON: February 16, 2022. FINDINGS: LINES/DEVICES: 2-lead left chest pacer. Prosthetic cardiac valve. LUNGS: No consolidation, edema or effusion. No pneumothorax. MEDIASTINUM AND CARDIOVASCULAR STRUCTURES: Cardiac silhouette not enlarged. BONES AND SOFT TISSUES: Unremarkable. Sternotomy wires are unchanged. RAD/Chest 1 View (Portable) IMPRESSION: No radiographic evidence of acute cardiopulmonary disease. Electronically Signed: Ko Barnes MD at 17:11 EDT ,
[2022-06-08 16:51] LABS: Absolute Lymphocyte Count 1.15 X10^3/uL (0.83-4.51); Absolute Neutrophil Count 4.5 X10^3/uL (2.0-7.7); Basophil# 0.04 X10^3/uL; Basophil% 0.6 % (0-1); Eosinophil# 0.08 X10^3/uL; Eosinophils% 1.3 % (0-5); Hematocrit 34.6 % (37-47); Lymphocyte # 1.15 X10^3/ul (0.83-4.51); Lymphocyte % 18.1 % (19-41); Mean Corp Hgb Conc 31.8 g/dL (32-36); Mean Corpuscular Volume 78.6 fL (81-99); Mean Platelet Vol. 10.1 fl (6.2-12.0); Monocyte# 0.57 X10^3/uL; NRBC Flagged by Analyzer 0 % (0-5); Neutrophil % 70.7 % (47-70); Platelet Count 262 K/mm3 (150-450); RBC Distribution Width CV 18.3 % (11.6-14.6); White Blood Count 6.4 K/mm3 (4.4-11.0)
[2022-06-08 16:56] LABS: International Normalized Ratio 1.2
[2022-06-08 17:14] LABS: Anion Gap 5 (5-15); BUN 11 mg/dL (7-18); BUN/Creat Ratio 12.5 RATIO (10-20); Calcium,Total 9.3 mg/dL (8.5-10.1); Chloride 109 mmol/L (98-107); Creatinine, Serum 0.88 mg/dL (0.55-1.02); EST Glomerular Filtration Rate 71 mL/min (>60); Est Glom Filt Rate - Afr Amer 86 mL/min (>60); Estimated Creatinine Clearance 60.46 ml/min; Glucose 110 mg/dL (74-106); Potassium 4.2 mmol/L (3.5-5.1); Sodium Level 139 mmol/L (136-145); Troponin-I HS 12 pg/mL (3.0-54.0)
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
[2022-06-08 18:04] LABS: Internal QC Validated? YES +Cl - CLEAR BKGD; Pregnancy, Serum, hCG Quali. NEGATIVE Negative
[2022-06-08 18:29] LABS: Alcohol, Blood (Medical)-Serum < 3.0 mg/dL
[2022-06-08 18:39] VITALS: RESP 22
[2022-06-08 20:00] VITALS: RESP 20
[2022-06-08 20:59] LABS: Amphetamine Urine VISTA NEGATIVE (<1000 ng/mL); Barbiturate Urine VISTA NEGATIVE (< 200 ng/mL); Benzodiazepine Urine VISTA NEGATIVE (< 200 ng/mL); Cocaine Urine VISTA NEGATIVE (< 300 ng/mL); Ecstacy Urine VISTA NEGATIVE (< 500 ng/mL); Methadone Urine VISTA NEGATIVE (< 300 ng/mL); PCP Urine VISTA NEGATIVE (< 25 ng/mL); THC Urine VISTA NEGATIVE (< 50 ng/mL); Vista UDS pH Range 6
[2022-06-08 21:14] VITALS: BP 146/66
== END 2022-06-08 21:36 | disposition home or self-care (01) ==
PROVIDERS: Emergency Provider Student in an Organized Health Care Education/Training Program; PCP Internal Medicine; Visit Provider Student in an Organized Health Care Education/Training Program
DX: F41.9 Anxiety disorder, unspecified (principal); F20.9 Schizophrenia, unspecified; J44.9 Chronic obstructive pulmonary disease, unspecified; F31.9 Bipolar disorder, unspecified; N18.9 Chronic kidney disease, unspecified; R06.02 Shortness of breath; F17.210 Nicotine dependence, cigarettes, uncomplicated
CPT/HCPCS: 71045; 80048; 80307; 82077; 84484; 84703; 85025; 85610; 93005; 96374; 99284; A4216

== ENCOUNTER 2022-06-10 15:52 | Emergency (ER) | payer MEDICARE, MEDICAID, SELFPAY ==
[2022-06-10 15:54] VITALS: BP 146/85; PULSE 87; RESP 22; TEMP 36.7; O2SAT 98; BMI 28.7
--- NOTE | 2022-06-10 16:45 | EX.ED.VIS.PS ---
HPI <GONZÁLEZ Murguia - Last Filed: 06/10/22 22:25> HPI - Psych History of Present Illness Chief Complaint: Anxiety Narrative Narrative: Patient presents today due to anxiety. Patient states she is prescribed Ativan by her psychiatrist and noticed that some of her pills were missing. Her psychiatrist advised her to call the police. The police called EMS to bring her to the ED. She has a history of bipolar disorder and states she is increasingly restless and anxious without her Ativan. She denies any suicidal thoughts or any thoughts of self-harm. She denies any drug or alcohol use. She also presented to the ED on 06/08/2022 with a chief complaint of anxiety. She states her 13-year-old son takes care of her. PFS <GONZÁLEZ Murguia - Last Filed: 06/10/22 22:25> [facility] Medical History AAA (abdominal aortic aneurysm) Acute UTI Anemia Anemia Anxiety Asthma Bipolar disorder Brain aneurysm CKD (chronic kidney disease) COPD (chronic obstructive pulmonary disease) CVA (cerebral vascular accident) Depressive disorder Dysphagia as late effect of cerebrovascular accident (CVA) 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 classified elsewhere Former smoker Hemiparesis due to old cerebrovascular accident senior living (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 anticoagulants Mitral regurgitation Non-ischemic cardiomyopathy Schizophrenia Sick sinus syndrome Stroke/cerebrovascular accident Unsteady gait Home Medications aspirin 81 mg tablet,delayed release (Adult Low Dose Aspirin) 81 mg PO DAILY BLOOD THINNER 11/27/20 [History Last Taken 02/16/22] mirtazapine 30 mg tablet (Remeron) 30 mg PO QHS Check with primary doctor 03/03/21 [History Last Taken 02/15/22] oxcarbazepine 300 mg tablet (Trileptal) 300 mg PO BID SEIZURES 03/03/21 [History Last Taken 02/16/22] trazodone 150 mg tablet 150 mg PO QHS SLEEP 03/03/21 [History Last Taken 02/15/22] citalopram 10 mg tablet (Celexa) 10 mg PO DAILY DEPRESSION 04/09/21 [History Last Taken 02/16/22] cholecalciferol (vitamin D3) 125 mcg (5,000 unit) capsule 125 mcg PO DAILY supplement 12/14/21 [History Last Taken 02/16/22] docusate sodium 100 mg capsule 100 mg PO BID CONSTPATION 12/14/21 [History Last Taken 02/16/22] hydroxyzine pamoate 50 mg capsule (Vistaril) 50 mg PO TID BIPOLAR 12/14/21 [History Last Taken 02/16/22] rosuvastatin 5 mg tablet 5 mg PO QHS CHOLESTEROL 12/14/21 [History Last Taken 02/10/22] acetaminophen 500 mg tablet 500 mg PO Q6H PRN pain/fever 02/16/22 [History Last Taken Unknown] albuterol sulfate 90 mcg/actuation aerosol inhaler See Rx Instructions .Route .COMPLEX PRN coughing and wheezing 02/16/22 [History Last Taken Unknown] amlodipine 10 mg tablet 10 mg PO DAILY HTN 02/16/22 [History Last Taken 02/16/22] lorazepam 0.5 mg tablet (Ativan) 0.5 mg PO TID ANXIETY 02/16/22 [History Last Taken 02/16/22] nirmatrelvir 150 mg-ritonavir 100 mg tablets in a dose pack (EUA) (Paxlovid) 3 tab PO BID COVID 02/16/22 [History Last Taken 02/16/22] ondansetron 4 mg disintegrating tablet 4 mg PO Q6H PRN Nausea 02/16/22 [History Last Taken 02/16/22] valbenazine 80 mg capsule (Ingrezza) 80 mg PO DAILY TARDIVS DYSKINESIA 02/16/22 [History Last Taken 02/16/22] warfarin 4 mg tablet 4 mg PO QWEEK BLOOD THINNER 02/16/22 [History Last Taken Unknown] warfarin 5 mg tablet 5 mg PO SUMOTUTHFRSA 02/16/22 [History Last Taken 02/15/22] pantoprazole 40 mg tablet,delayed release 40 mg PO BID 8 weeks #112 tabs 02/23/22 [Rx Last Taken Unknown] vancomycin 250 mg capsule 500 mg PO Q6 #16 caps 02/23/22 [Rx Last Taken Unknown] aripiprazole 5 mg tablet (Abilify) 2.5 mg PO DAILY #15 tabs 04/06/22 [Rx Last Taken Unknown] benztropine 0.5 mg tablet 0.5 mg PO DAILY #30 tabs 04/06/22 [Rx Last Taken Unknown] Allergy/AdvReac Type Severity Reaction Status Date / Time amoxicillin [Amoxicillin] Allergy Hives Verified 06/10/22 15:58 latex Allergy Rash Verified 06/10/22 15:58 lisinopril Allergy Unknown Verified 06/10/22 15:58 Penicillins Allergy Hives Verified 06/10/22 15:58 venom-honey bee Allergy Swelling Verified 06/10/22 15:58 [bee venom (honey bee)] ciprofloxacin [From Cipro] AdvReac Nausea/Vom/ Verified 06/10/22 15:58 Diarrhea Surgical History History of History of mitral valve replacement with bioprosthetic valve (07/23/09) History of partial colectomy Presence of cardiac pacemaker (09/21/20) Social History current occupational status: unemployed Smoking Status: Current every day smoker tobacco type: cigarettes second hand exposure: Yes alcohol intake: current alcohol intake frequency: holidays/special occasions only details: RARELY substance use type: does not use caffeine: Yes Type: carbonated beverages Number of servings: 1 what type of physical activity do you participate in: none seatbelt use: always ROS <GONZÁLEZ Murguia - Last Filed: 06/10/22 22:25> ROS ED Constitutional Constitutional ED: Denies chills or fever(s) Eyes Eyes: Denies change in vision ENT ENT ED: Denies rhinorrhea or sore throat Cardiovascular Cardiovascular: Denies chest pain Respiratory/Chest Respiratory/Chest: Denies cough or dyspnea Gastrointestinal Gastrointestinal: Denies abdominal pain, constipation, diarrhea, nausea or vomiting Genitourinary Genitourinary ED: Denies dysuria Musculoskeletal Musculoskeletal: Denies arthralgias Integumentary Denies Abrasions or rash Neurologic Neurologic: Denies headache(s) Psychiatric Psychiatric: Reports anxiety; Denies suicidal ideation or suicidal thoughts EXAM <OGNZÁLEZ Murguia - Last Filed: 06/10/22 22:25> Physical Exam Const Vital Signs: 06/10/22 15:54 06/10/22 22:18 Temperature 98.1 F Temperature Source Oral Pulse Rate 87 81 Respiratory Rate 22 H 16 Blood Pressure 146/85 H 138/7 H Blood Pressure Mean 105 50 Pulse Ox 98 96 Oxygen Delivery Method Room Air Room Air Positive well nourished HEENT normocephalic and atraumatic Eyes PERRL and EOMs intact bilaterally Neck supple Resp normal respiratory effort and clear to auscultation bilaterally Auscultation: Negative for rales, rhonchi, wheezes or diminished lung sounds Cardio no murmurs Rate: regular rate Rhythm: regular rhythm GI non-tender, non-distended and no masses Palpation: soft Extremity normal to inspection Psych Psych Narrative: Patient reports anxiety and several times throughout exam she had to take a deep breath until herself to, calm down. Appearance: grossly normal Activity / Motor Behavior: fidgetting and restless Speech: incoherent and delayed Thought Content: No suicidality, No homicidality and No delusion(s) Attention / Concentration: attention grossly intact <Dr. Dillon Cabezas DO - Last Filed: 06/10/22 22:51> Physical Exam Const Vital Signs: 06/10/22 15:54 06/10/22 22:18 Temperature 98.1 F Temperature Source Oral Pulse Rate 87 81 Respiratory Rate 22 H 16 Blood Pressure 146/85 H 138/7 H Blood Pressure Mean 105 50 Pulse Ox 98 96 Oxygen Delivery Method Room Air Room Air MDM <GONZÁLEZ Murguia - Last Filed: 06/10/22 22:25> MDM MDM Narrative Medical decision making narrative: Patient has been given 10mg IM of Haldol due to anxiety and restlessness. environmental services worker has talked to her. Because this is her 3rd presentation with anxiety she will require a psych evaluation. CBC, CMP, drug tox, PT/INR, and EKG have all been ordered in this patient. She is COVID-negative. Patient medically clear for psych evaluation. Lab Data Attestation: I reviewed the patient's lab results. Labs: Laboratory Results - last 24 hr 06/10/22 06/10/22 06/10/22 20:10 20:10 20:10 WBC 6.3 RBC 4.51 Hgb 11.2 L Hct 36.1 L MCV 80.0 L MCH 24.8 L MCHC 31.0 L RDW Std Deviation 53.4 H RDW Coeff of Jonathon 18.7 H Plt Count 244 MPV 10.0 Immature Gran % (Auto) 0.200 Neut % (Auto) 56.3 Lymph % (Auto) 29.9 Edmunds % (Auto) 9.5 Eos % (Auto) 3.3 Baso % (Auto) 0.8 Absolute Neuts (auto) 3.6 Absolute Lymphs (auto) 1.89 Nucleated RBC % 0 PT INR Sodium Potassium Chloride Carbon Dioxide Anion Gap BUN Creatinine Estim Creat Clear Calc Est GFR (MDRD) Af Amer Est GFR (MDRD) Non-Af BUN/Creatinine Ratio Glucose Calcium Total Bilirubin AST ALT Alkaline Phosphatase Total Protein Albumin Globulin Albumin/Globulin Ratio Serum , Qual NEGATIVE Urine Opiates Screen Urine Methadone Screen Ur Barbiturates Screen Ur Phencyclidine Scrn Ur Amphetamines Screen MDMA (Ecstasy) Screen U Benzodiazepines Scrn Urine Cocaine Screen U Cannabinoids Screen Ur Drug Screen Comment Ethyl Alcohol 6.0 06/10/22 06/10/22 06/10/22 20:10 20:10 21:00 WBC RBC Hgb Hct MCV MCH MCHC RDW Std Deviation RDW Coeff of Jonathon Plt Count MPV Immature Gran % (Auto) Neut % (Auto) Lymph % (Auto) Edmunds % (Auto) Eos % (Auto) Baso % (Auto) Absolute Neuts (auto) Absolute Lymphs (auto) Nucleated RBC % PT 14.1 INR 1.1 Sodium 141 Potassium 4.0 Chloride 108 H Carbon Dioxide 24.0 Anion Gap 9 BUN 9 Creatinine 0.90 Estim Creat Clear Calc 59.11 Est GFR (MDRD) Af Amer 84 Est GFR (MDRD) Non-Af 69 BUN/Creatinine Ratio 10.0 Glucose 89 Calcium 9.5 Total Bilirubin 0.30 AST 21 ALT 21 Alkaline Phosphatase 85 Total Protein 7.0 Albumin 3.6 Globulin 3.4 Albumin/Globulin Ratio 1.1 Serum , Qual Urine Opiates Screen NEGATIVE Urine Methadone Screen NEGATIVE Ur Barbiturates Screen NEGATIVE Ur Phencyclidine Scrn NEGATIVE Ur Amphetamines Screen NEGATIVE MDMA (Ecstasy) Screen NEGATIVE U Benzodiazepines Scrn NEGATIVE Urine Cocaine Screen NEGATIVE U Cannabinoids Screen NEGATIVE Ur Drug Screen Comment Ethyl Alcohol <Dr. Dillon Cabezas, DO - Last Filed: 06/10/22 22:51> MDM MDM Narrative Medical decision making narrative: Patient has been given 10mg IM of Haldol due to anxiety and restlessness. environmental services worker has talked to her. Because this is her 3rd presentation with anxiety she will require a psych evaluation. CBC, CMP, drug tox, PT/INR, and EKG have all been ordered in this patient. She is COVID-negative. Patient medically clear for psych evaluation. I performed a history and physical examination of the patient and discussed management plan with the physician assistant to the ceo. I reviewed the physician assistant to the ceo's note and agree with the documented findings and plan of care. Patient has been seen here several times recently. Today her psychiatrist advised her to come to the hospital. She gets into anxiety like moods where she states she cannot speak. I am worried that she is spiraling into a manic depressive episode. I asked social work to interview the patient and they are agreement with this. I do not think that she is able to care for her child in the state. I am going to recommend admission. Dillon Cabezas DO, MS Lab Data Labs: Laboratory Results - last 24 hr 06/10/22 06/10/22 06/10/22 20:10 20:10 20:10 WBC 6.3 RBC 4.51 Hgb 11.2 L Hct 36.1 L MCV 80.0 L MCH 24.8 L MCHC 31.0 L RDW Std Deviation 53.4 H RDW Coeff of Jonathon 18.7 H Plt Count 244 MPV 10.0 Immature Gran % (Auto) 0.200 Neut % (Auto) 56.3 Lymph % (Auto) 29.9 Edmunds % (Auto) 9.5 Eos % (Auto) 3.3 Baso % (Auto) 0.8 Absolute Neuts (auto) 3.6 Absolute Lymphs (auto) 1.89 Nucleated RBC % 0 PT INR Sodium Potassium Chloride Carbon Dioxide Anion Gap BUN Creatinine Estim Creat Clear Calc Est GFR (MDRD) Af Amer Est GFR (MDRD) Non-Af BUN/Creatinine Ratio Glucose Calcium Total Bilirubin AST ALT Alkaline Phosphatase Total Protein Albumin Globulin Albumin/Globulin Ratio Serum , Qual NEGATIVE Urine Opiates Screen Urine Methadone Screen Ur Barbiturates Screen Ur Phencyclidine Scrn Ur Amphetamines Screen MDMA (Ecstasy) Screen U Benzodiazepines Scrn Urine Cocaine Screen U Cannabinoids Screen Ur Drug Screen Comment Ethyl Alcohol 6.0 06/10/22 06/10/22 06/10/22 20:10 20:10 21:00 WBC RBC Hgb Hct MCV MCH MCHC RDW Std Deviation RDW Coeff of Jonathon Plt Count MPV Immature Gran % (Auto) Neut % (Auto) Lymph % (Auto) Edmunds % (Auto) Eos % (Auto) Baso % (Auto) Absolute Neuts (auto) Absolute Lymphs (auto) Nucleated RBC % PT 14.1 INR 1.1 Sodium 141 Potassium 4.0 Chloride 108 H Carbon Dioxide 24.0 Anion Gap 9 BUN 9 Creatinine 0.90 Estim Creat Clear Calc 59.11 Est GFR (MDRD) Af Amer 84 Est GFR (MDRD) Non-Af 69 BUN/Creatinine Ratio 10.0 Glucose 89 Calcium 9.5 Total Bilirubin 0.30 AST 21 ALT 21 Alkaline Phosphatase 85 Total Protein 7.0 Albumin 3.6 Globulin 3.4 Albumin/Globulin Ratio 1.1 Serum , Qual Urine Opiates Screen NEGATIVE Urine Methadone Screen NEGATIVE Ur Barbiturates Screen NEGATIVE Ur Phencyclidine Scrn NEGATIVE Ur Amphetamines Screen NEGATIVE MDMA (Ecstasy) Screen NEGATIVE U Benzodiazepines Scrn NEGATIVE Urine Cocaine Screen NEGATIVE U Cannabinoids Screen NEGATIVE Ur Drug Screen Comment Ethyl Alcohol EKG Initial EKG: Attestation: I personally reviewed and interpreted this EKG as follows: Comments: Atrially sensed ventricularly paced rhythm at a ventricular rate of 80 bpm. No concerning features of ACS noted Discharge Plan Triage Chief Complaint: Anxiety ED Midlevel Provider: Fozia Monson ED Provider: Dillon Cabezas Dx/Rx/DC Orders Clinical Impression: Bipolar disorder, Anxiety, Schizophrenia Prescriptions: No Action aspirin [Adult Low Dose Aspirin] 81 mg tablet,delayed release (DR/EC) 81 mg PO DAILY citalopram [Celexa] 10 mg tablet 10 mg PO DAILY benztropine 0.5 mg tablet 0.5 mg PO DAILY Qty: 30 4RF aripiprazole [Abilify] 5 mg tablet 2.5 mg PO DAILY Qty: 15 4RF docusate sodium 100 mg Capsule 100 mg PO BID cholecalciferol (vitamin D3) 125 mcg (5,000 unit) Capsule 125 mcg PO DAILY hydroxyzine pamoate [Vistaril] 50 mg capsule 50 mg PO TID rosuvastatin 5 mg tablet 5 mg PO QHS acetaminophen 500 mg Tablet 500 mg PO Q6H PRN (Reason: pain/fever) lorazepam [Ativan] 0.5 mg Tablet 0.5 mg PO TID ondansetron 4 mg Tablet,Disintegrating 4 mg PO Q6H PRN (Reason: Nausea) warfarin 4 mg Tablet 4 mg PO QWEEK Protocol: Dose Management Condition: Monday Dose/Route: 5 mg Instruction: 1 x 5 mg tablet Condition: Monday Dose/Route: 2.5 mg Instruction: 0.5 x 5 mg tablets Condition: Monday Dose/Route: 2.5 mg Instruction: 0.5 x 5 mg tablets Condition: Monday Dose/Route: 2.5 mg Instruction: 0.5 x 5 mg tablets Condition: Dose/Route: 2.5 mg Instruction: 0.5 x 5 mg tablets Condition: Monday Dose/Route: 5 mg Instruction: 1 x 5 mg tablet Condition: Monday Dose/Route: 5 mg Instruction: 1 x 5 mg tablet Protocol Text: Adjustment Start Date: Monday06/06/22 INR Value: 2.0 INR Date: 06/06/22 Recheck Date: 06/13/22 Rx Instructions: Wednesdays amlodipine 10 mg Tablet 10 mg PO DAILY warfarin 5 mg Tablet [facility] Protocol: Dose Management Condition: Monday Dose/Route: 5 mg Instruction: 1 x 5 mg tablet Condition: Monday Dose/Route: 2.5 mg Instruction: 0.5 x 5 mg tablets Condition: Monday Dose/Route: 2.5 mg Instruction: 0.5 x 5 mg tablets Condition: Monday Dose/Route: 2.5 mg Instruction: 0.5 x 5 mg tablets Condition: Dose/Route: 2.5 mg Instruction: 0.5 x 5 mg tablets Condition: Monday Dose/Route: 5 mg Instruction: 1 x 5 mg tablet Condition: Monday Dose/Route: 5 mg Instruction: 1 x 5 mg tablet Protocol Text: Adjustment Start Date: Monday06/06/22 INR Value: 2.0 INR Date: 06/06/22 Recheck Date: 06/13/22 Ingrezza 80 mg Capsule 80 mg PO DAILY Paxlovid (EUA) 150-100 mg Tablets,Dose Pack 3 tab PO BID albuterol sulfate 90 mcg/actuation Hfa Aerosol Inhaler See Rx Instructions .ROUTE .COMPLEX PRN (Reason: coughing and wheezing) Rx Instructions: 2 puffs vancomycin 250 mg Capsule 500 mg PO Q6 Qty: 16 0RF pantoprazole 40 mg tablet,delayed release (DR/EC) 40 mg PO BID 56 Days Qty: 112 0RF trazodone 150 mg tablet 150 mg PO QHS oxcarbazepine [Trileptal] 300 mg tablet 300 mg PO BID mirtazapine [Remeron] 30 mg tablet 30 mg PO QHS Primary Care Provider: Louis Dobbs Referrals: Louis Dobbs MD [Primary Care Provider] - Disposition Disposition: Psychiatric Hospital or Unit
[2022-06-10] MEDS: Haloperidol Lactate 5 MG/ML Vial 10 MG IM (17:58)
--- NOTE | 2022-06-10 19:48 | EKG12_ITS ---
Test Reason : DYSRHYTHMIA Blood Pressure : / mmHG Vent. Rate : 080 BPM Atrial Rate : 080 BPM P-R Int : 194 ms QRS Dur : 176 ms QT Int : 442 ms P-R-T Axes : 086 -67 084 degrees QTc Int : 509 ms Atrial-sensed ventricular-paced rhythm Abnormal ECG Confirmed by SATURNINO BAZAN, CHERYLE ([id number]), marketing editor SERENA MILLER ([id number]) on 06/13/2022 11:40:13 AM Referred By: MINERVA Confirmed By:CHERYLE MATAMOROS MD
--- NOTE | 2022-06-10 20:10 | CM.ED ---
? Social Work Psychiatric Assessment Reason for consult: Mental Health Informant(s): Patient and patient?s brother, Contreras Chief Complaint: ?AURORA and AURORA Cherry met with patient in the ED. Patient gave verbal consent to meet with patient. SW asked what brought patient to the ED and patient said, ?I don?t know how to answer?. Patient said she was having an ?anxiety/panic attack?. Patient said that she ?moves back and forth ?when she has an anxiety attack. Patient said that she has been having a panic attack since this morning. Brother, Contreras, said that patient called her psychiatrist and talked to the RN who said that they could not prescribe any more anxiety medication and told her to call the police and the police were called and they had EMS come to her home.? Contreras said that patient cannon ?ran out, had her meds stolen or misplaced? so the police were called as they were controlled substance and needed a police report. Patient voiced she is having trouble getting out of bed. Patient reports that she has lost interest in things she used to enjoy. Patient reports she has gained weight, 40 lbs. in an unknown amount of time frame. Patient said that she has not bathed for 1 week. Patient said that her sleep is ?lousy? and that she gets 9-12 hour of sleep, and she feels ?not rested?. ? Marital/Social History: Marital Status:? Single Living Situation: Patient resides in a home with her 13-year-old son. Uncle said that patient may be at the other brother?s house. Support/Resources: Patient reports that her supports are her assistant executive housekeeper and nurse. History: ?Not Applicable Education and Employment History: Patient reports that she graduated high school. Patient and her brother confirmed that patient had no extra help in school. ? Mental Health Treatment/History: Patient reports that she has a psychiatrist, Krupa Paz. Patient reports that she is taking her medication as prescribed except for her ?anxiety meds?. Brother said that last year patient was at [facility] for psych. Brother said that patient was previously diagnosed with bipolar and MDD. Brother said that patient got back from rehab at [facility], and he has not noticed any depression ?nothing deep?. Patient said that she feels she is not depressed ?just tired?. ?? Triggers/Stressors: Patient was asked about stressors or triggers and patient said, ?not really?. Brother Contreras said that he is unsure what brought patient to the ED on Monday, but he felt that a visit from [facility] was what concerned her today and she was ?worried?. Coping Skills: Patient said ?I don?t know. counting?. Later, patient said that she enjoys artwork. Abuse Issues:? Emotional??? Physical? Sexual: Denied ? Substance Abuse Hx:? Denied Risk to Self/Others: ? Suicidal:? Comments: Patient denied suicidal ideation, plans or attempts ? Homicidal:? Comments: Patient denied HI. ? Violence:? to self? to other? objects Comments: Patient reports she pulled out her hair but hasn?t done that for 3 years. SW asked patient what she thought would help her and she said, ?I wish I knew?. SW asked about VH/AH and patient said, ?not anymore?. SW asked when the last time patient heard voiced and she said, ?I don?t remember? and said that the medication that she has taken for 3 years is helpful. Mental Status Exam: ??? Orientation:? x4 ??? Memory:? Good Appearance/General Behavior:? Disheveled. Mood/Affect: Depressed with flat affect Communication Pattern:? Responds to questions. Was given Haldol so voices she is sleepy. Thought Process:? appropriate. Patient denies AH/VH General Intellectual Functioning:??? Average ? Judgment:? fair Insight:? fair Patient has been to the ED on 05/30/22, 06/08/22 and today 06/10/22 and it appears that patient?s attempts to remain in the community with support are not effective. AURORA consulted with MD Burdick. AURORA and feel that patient needs inpatient psych hospitalization to ensure safety, crisis stabilization and medication management. Plan: Inpatient Psych Fela DOTY
[2022-06-10 20:21] LABS: Absolute Lymphocyte Count 1.89 X10^3/uL (0.83-4.51); Absolute Neutrophil Count 3.6 X10^3/uL (2.0-7.7); Basophil# 0.05 X10^3/uL; Basophil% 0.8 % (0-1); Eosinophil# 0.21 X10^3/uL; Eosinophils% 3.3 % (0-5); Hematocrit 36.1 % (37-47); Hemoglobin 11.2 g/dL (12.0-15.0); Lymphocyte # 1.89 X10^3/ul (0.83-4.51); Lymphocyte % 29.9 % (19-41); Mean Corpuscular Hgb 24.8 pg (27.0-32.0); Monocyte% 9.5 % (0-10); NRBC Flagged by Analyzer 0 % (0-5); Neutrophil # 3.56 X10^3/uL (2.7-7.7); Neutrophil % 56.3 % (47-70); Platelet Count 244 K/mm3 (150-450); RBC Distribution Width CV 18.7 % (11.6-14.6); RBC Distribution Width SD 53.4 fl (35.1-43.9); Red Blood Count 4.51 M/mm3 (4.2-5.4); White Blood Count 6.3 K/mm3 (4.4-11.0)
[2022-06-10 20:31] LABS: Internal QC Validated? YES +Cl - CLEAR BKGD; Pregnancy, Serum, hCG Quali. NEGATIVE Negative
[2022-06-10 20:38] LABS: ALB/GLOB Ratio 1.1 RATIO (0.9-2.4); AST(SGOT) 21 U/L (15-37); Alanine Aminotransfer ALT/SGPT 21 U/L (13-56); Albumin, Serum 3.6 g/dL (3.2-5.0); Alkaline Phosphatase 85 U/L (45-117); Anion Gap 9 (5-15); BUN 9 mg/dL (7-18); Calcium,Total 9.5 mg/dL (8.5-10.1); Chloride 108 mmol/L (98-107); EST Glomerular Filtration Rate 69 mL/min (>60); Est Glom Filt Rate - Afr Amer 84 mL/min (>60); Estimated Creatinine Clearance 59.11 ml/min; Globulin 3.4 g/dL (2.2-4.2); Glucose 89 mg/dL (74-106); Sodium Level 141 mmol/L (136-145)
[2022-06-10 20:44] LABS: International Normalized Ratio 1.1; Prothrombin Time (Protime)PT. 14.1 SECONDS (11.7-14.9)
--- NOTE | 2022-06-10 20:57 | CM.ED ---
SW Note SW updated patient and her brother that patient will be going to inpatient psych.SW asked where patient's 13 year old son is and patient said that he is at his older brother's house. SW asked patient where or how to get in touch with the older brother, Gee Boyd. Patient said that she did not know but brother said patient lives in the same apartment complex. Christie called John at [facility] and made report regarding patient's 13 year old son. John said that he believes that the older brother was the person who cared for the 13 year old when patient was at rehab so as long as he reviews the chart and notes that older brother is fine it will be ok and he will let the assigned green chain worker know of the situation. Fela DOTY
[2022-06-10 21:29] LABS: Amphetamine Urine VISTA NEGATIVE (<1000 ng/mL); Barbiturate Urine VISTA NEGATIVE (< 200 ng/mL); Benzodiazepine Urine VISTA NEGATIVE (< 200 ng/mL); Cocaine Urine VISTA NEGATIVE (< 300 ng/mL); Ecstacy Urine VISTA NEGATIVE (< 500 ng/mL); Methadone Urine VISTA NEGATIVE (< 300 ng/mL); PCP Urine VISTA NEGATIVE (< 25 ng/mL); THC Urine VISTA NEGATIVE (< 50 ng/mL); Vista UDS pH Range 6
[2022-06-10 22:18] VITALS: BP 138/7; PULSE 81; RESP 16; O2SAT 96
--- NOTE | 2022-06-10 23:56 | ED.RN ---
CALL BROTHER WILLIAMS AT [phone] WITH ANY UPDATES.
[2022-06-11] VITALS: BP 122/74; PULSE 79; RESP 16; O2SAT 96
--- NOTE | 2022-06-11 02:12 | ED.RN ---
[facility] called and requested a tox screen. tox screen faxed at this time
--- NOTE | 2022-06-11 02:48 | NURSING ---
ACCEPTED TO GENERATIONS BY DR. MCKEON ROOM [address] [phone] REPORT
[2022-06-11 04:25] VITALS: BP 134/75; PULSE 76; RESP 16; O2SAT 97
[2022-06-11 07:45] VITALS: BP 129/76; PULSE 69; RESP 12; O2SAT 97
--- NOTE | 2022-06-13 13:50 | CM.ED ---
AURORA received call from Florecita Urban regarding Ninaliat Briggs. Florecita is the assigned worker from [facility]. AURORA advised that patient was transferred to [facility] on Monday. Florecita's direct number is [phone] Fela DOTY
--- NOTE | 2022-07-02 17:46 | CM.ED ---
SW received letter from [facility]. Report made by this tag writer was not accepted for assessment or investigation at this time. Fela DOTY
== END 2022-06-11 07:56 ==
PROVIDERS: Emergency Provider Emergency Medicine; PCP Internal Medicine; Visit Provider Emergency Medicine
DX: F20.9 Schizophrenia, unspecified (principal); J44.9 Chronic obstructive pulmonary disease, unspecified; F31.9 Bipolar disorder, unspecified; F41.9 Anxiety disorder, unspecified; N18.9 Chronic kidney disease, unspecified; F17.210 Nicotine dependence, cigarettes, uncomplicated; Z20.822 Contact with and (suspected) exposure to COVID-19
CPT/HCPCS: 36415; 80053; 80307; 82077; 84703; 85025; 85610; 87811; 93005; 96372; 99285

== ENCOUNTER → 2022-10-18 | Outpatient (CLI) | payer MEDICARE, MEDICAID, SELFPAY ==
[2022-10-18 13:10] LABS: INR Fingerstick 2.8; Prothrombin Time Fingerstick 31.9 SEC (11.7-14.9)
== END | disposition home or self-care (01) ==
LOC: LAB 09:35
PROVIDERS: PCP Internal Medicine; Visit Provider Physician Assistant Medical
DX: I48.0 Paroxysmal atrial fibrillation (principal); Z86.73 Personal history of transient ischemic attack (TIA), and cerebral infarction without residual deficits; Z79.01 Long term (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 anticoagulants
CPT/HCPCS: 36416; 85610

== ENCOUNTER → 2022-11-01 | Outpatient (CLI) | payer MEDICARE, MEDICAID, SELFPAY ==
[2022-11-01 10:26] LABS: INR Fingerstick 4.7; Prothrombin Time Fingerstick 49.2 SEC (11.7-14.9)
[2022-11-01 11:00] LABS: International Normalized Ratio 4.1
[2022-11-01 11:05] LABS: Prothrombin Time (Protime)PT. 39.4 SECONDS (11.7-14.9)
== END | disposition home or self-care (01) ==
PROVIDERS: PCP Internal Medicine; Visit Provider Physician Assistant Medical
DX: Z79.01 Long term (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 anticoagulants (principal); I48.0 Paroxysmal atrial fibrillation; Z86.73 Personal history of transient ischemic attack (TIA), and cerebral infarction without residual deficits
CPT/HCPCS: 36415; 36416; 85610

== ENCOUNTER → 2022-11-03 | Outpatient (CLI) | payer MEDICARE, MEDICAID, SELFPAY ==
[2022-11-03 10:31] LABS: INR Fingerstick 1.8; Prothrombin Time Fingerstick 20.4 SEC (11.7-14.9)
== END | disposition home or self-care (01) ==
LOC: LAB 08:12
PROVIDERS: PCP Internal Medicine; Referring Provider Physician Assistant Medical; Visit Provider Physician Assistant Medical
DX: I48.0 Paroxysmal atrial fibrillation (principal); Z86.73 Personal history of transient ischemic attack (TIA), and cerebral infarction without residual deficits; Z79.01 Long term (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 anticoagulants
CPT/HCPCS: 36416; 85610

== ENCOUNTER → 2023-01-10 | Outpatient (CLI) | payer MEDICARE, MEDICAID, SELFPAY ==
--- NOTE | 2023-01-10 13:16 | ECHOD_ITS ---
Reason For Study: MV STENOSIS Procedure This was a 2D Doppler, Color Flow transthoracic echocardiogram. Exam performed in department. Left Ventricle Normal LV size. Left ventricular systolic function is lower limits of normal. The estimated ejection fraction is 50 %. No regional wall motion abnormalities noted. Right Ventricle Normal RV size. ICD or pacer leads identified within the right ventricle. Mitral Valve Mean transmitral valve gradient 6.5 mmHg. Stable appearing bioprosthetic mitral valve apparatus. Tricuspid Valve Normal tricuspid valve. Mild (1+) tricuspid valve insufficiency. Aortic Valve Trisinus/trileaflet aortic valve. Mild (1+) aortic valve insufficiency. Pulmonic Valve Normal pulmonic valve. Mild (1+) pulmonic valve insufficiency. Great Vessels Normal aortic root. The pulmonary artery is normal size. Inferior vena cava collapse with sniff. Pericardium/Pleural No pericardial effusion. MMode/2D Measurements & Calculations LVIDd: 4.4 cm IVSd: 1.1 cm Ao root diam: 3.0 cm LVIDs: 4.0 cm LVPWd: 1.2 cm RVDd: 3.4 cm FS: 7.3 % LAV(MOD-bp): 58.6 ml LVAd ap4: 26.4 cm2 LVAd ap2: 25.2 cm2 LAV(MOD-bp) Indexed: 31.3 ml/m2 LVLd ap4: 7.4 cm LVLd ap2: 7.0 cm LAV(MOD-sp2): 67.1 ml EDV(MOD-sp4): 79.1 ml EDV(MOD-sp2): 78.1 ml LAV(MOD-sp4): 49.0 ml EDV(sp4-el): 80.0 ml EDV(sp2-el): 76.7 ml LVAs ap4: 19.9 cm2 LVAs ap2: 19.8 cm2 LVLs ap4: 7.1 cm LVLs ap2: 7.0 cm ESV(MOD-sp4): 47.7 ml ESV(MOD-sp2): 47.3 ml ESV(sp4-el): 47.6 ml ESV(sp2-el): 47.2 ml EF(MOD-sp4): 39.7 % EF(MOD-sp2): 39.4 % EF(sp4-el): 40.6 % SV(MOD-sp4): 31.4 ml SV(MOD-sp2): 30.8 ml SV(sp4-el): 32.5 ml LA dimension(2D): 4.0 cm LA A4 area: 17.9 cm2 RA A4 area: 13.1 cm2 Time Measurements MV dec time: 0.30 sec Doppler Measurements & Calculations MV E max milan: 140.7 cm/sec Lat Peak E' Milan: 7.2 cm/sec Med Peak E' Milan: 5.8 cm/sec MV A max milan: 145.0 cm/sec E/E' lat: 19.6 E/E' med: 24.3 MV E/A: 0.97 MV V2 max: 156.0 cm/sec MV dec slope: 463.8 cm/sec2 Ao V2 max: 153.9 cm/sec MV max P.7 mmHg Ao max P.5 mmHg MV V2 mean: 124.0 cm/sec Ao V2 mean: 110.5 cm/sec MV mean P.5 mmHg Ao mean P.5 mmHg MV V2 VTI: 42.2 cm Ao V2 VTI: 27.3 cm AV (velocity ratio): 0.81 AI max milan: 436.6 cm/sec LV V1 max: 118.5 cm/sec PA V2 max: 101.1 cm/sec AI max P.3 mmHg LV V1 max P.6 mmHg PA V2 mean: 71.2 cm/sec AI dec slope: 152.8 cm/sec2 LV V1 mean P.1 mmHg AI P1/2t: 836.9 msec LV V1 mean: 82.5 cm/sec LV V1 VTI: 22.1 cm TR max milan: 257.6 cm/sec TR max P.5 mmHg ECHO/Echo Complete Interpretation Summary Normal LV size. Left ventricular systolic function is lower limits of normal. The estimated ejection fraction is 50 %. Stable appearing bioprosthetic mitral valve apparatus. Mean transmitral valve gradient 6.5 mmHg. Compared to previous study, the left ventricular systolic function is the same. . Ordering Physician: Nina Basurto Referring Physician: Nina Basurto Performed By: Yeny Macdonald RCS
== END | disposition home or self-care (01) ==
LOC: CVS 13:15
PROVIDERS: PCP Internal Medicine; Referring Provider Physician Assistant Medical; Visit Provider Physician Assistant Medical
DX: I05.2 Rheumatic mitral stenosis with insufficiency (principal)
CPT/HCPCS: 93306

== ENCOUNTER → 2023-02-16 | Outpatient (CLI) | payer MEDICARE, MEDICAID, SELFPAY ==
[2023-02-16 13:39] LABS: Absolute Neutrophil Count 4.9 X10^3/uL (2.0-7.7); Basophil# 0.08 X10^3/uL; Eosinophils% 3.9 % (0-5); Hematocrit 44.1 % (37-47); Hemoglobin 14.7 g/dL (12.0-15.0); Lymphocyte % 23.6 % (19-41); Mean Corp Hgb Conc 33.3 g/dL (32-36); Mean Corpuscular Hgb 31.2 pg (27.0-32.0); Mean Corpuscular Volume 93.6 fL (81-99); Mean Platelet Vol. 9.5 fl (6.2-12.0); Monocyte# 0.55 X10^3/uL; Monocyte% 7.2 % (0-10); NRBC Flagged by Analyzer 0 % (0-5); Neutrophil # 4.89 X10^3/uL (2.7-7.7); Platelet Count 169 K/mm3 (150-450); RBC Distribution Width CV 13.1 % (11.6-14.6); RBC Distribution Width SD 44.9 fl (35.1-43.9); Red Blood Count 4.71 M/mm3 (4.2-5.4); White Blood Count 7.6 K/mm3 (4.4-11.0)
[2023-02-16 14:03] LABS: ALB/GLOB Ratio 1.1 RATIO (0.9-2.4); AST(SGOT) 14 U/L (15-37); Alanine Aminotransfer ALT/SGPT 12 U/L (13-56); Albumin, Serum 3.7 g/dL (3.2-5.0); Alkaline Phosphatase 87 U/L (45-117); Anion Gap 6 (5-15); BUN 10 mg/dL (7-18); Calcium,Total 9.1 mg/dL (8.5-10.1); Chloride 104 mmol/L (98-107); Creatinine, Serum 0.91 mg/dL (0.55-1.02); EST Glomerular Filtration Rate 68 mL/min (>60); Est Glom Filt Rate - Afr Amer 83 mL/min (>60); Globulin 3.4 g/dL (2.2-4.2); Glucose 91 mg/dL (74-106); Potassium 4.4 mmol/L (3.5-5.1); Protein, Total 7.1 g/dL (6.4-8.2); Sodium Level 137 mmol/L (136-145)
[2023-02-16 14:13] LABS: Valproic Acid (Depakene) Level 27 ug/mL (50-100)
[2023-02-20 19:07] LABS: Trileptal-Oxcarbazepine 12 ug/mL (10-35)
== END | disposition home or self-care (01) ==
PROVIDERS: PCP Internal Medicine; Referring Provider Registered Nurse; Visit Provider Registered Nurse
DX: Z79.899 Other long term (current) drug therapy (principal); F29 Unspecified psychosis not due to a substance or known physiological condition
CPT/HCPCS: 36415; 80053; 80164; 82140; 82542; 85025

== ENCOUNTER 2023-06-25 05:14 | Emergency (ER) | payer MEDICARE, MEDICAID, SELFPAY ==
[2023-06-25 05:17] VITALS: BP 159/98; PULSE 94; RESP 16; TEMP 36.6; O2SAT 98; BMI 32.9
--- NOTE | 2023-06-25 05:28 | EX.ED.DYSGE1 ---
HPI History of Present Illness Chief Complaint: Cold Sx Informant: patient Narrative Narrative: Chinedu with left ear pain. Patient states for the last few days her left ear is hurting. She states that she has a headache but it is all at the left ear. She states it hurts almost into the jaw on the left but not down to the front. It is really more near the TMJ area. She denies fevers or chills. Denies coughing or chest pain. No neurologic symptoms. No balance issues. She thinks the hearing is slightly decreased on the left versus the right. No nausea or vomiting. No visual change. [facility] Medical History (Updated 06/25/23 @ 05:[address] Bryson Hua MD) AAA (abdominal aortic aneurysm) Acute UTI Anemia Anxiety Asthma Bipolar disorder Brain aneurysm CKD (chronic kidney disease) COPD (chronic obstructive pulmonary disease) CVA (cerebral vascular accident) Depressive disorder Dysphagia as late effect of cerebrovascular accident (CVA) 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 classified elsewhere Former smoker Hemiparesis due to old cerebrovascular accident long term (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 anticoagulants intermediate current use of anticoagulant Mitral regurgitation Non-ischemic cardiomyopathy Schizophrenia Sick sinus syndrome Stroke/cerebrovascular accident Unsteady gait Home Medications mirtazapine 30 mg tablet (Remeron) 30 mg PO QHS Check with primary doctor 03/03/21 [History Last Taken 02/15/22] oxcarbazepine 300 mg tablet (Trileptal) 300 mg PO BID SEIZURES 03/03/21 [History Last Taken 02/16/22] cholecalciferol (vitamin D3) 125 mcg (5,000 unit) capsule 125 mcg PO DAILY supplement 12/14/21 [History Last Taken 02/16/22] docusate sodium 100 mg capsule 100 mg PO BID CONSTPATION 12/14/21 [History Last Taken 02/16/22] rosuvastatin 5 mg tablet 5 mg PO QHS CHOLESTEROL 12/14/21 [History Last Taken 02/10/22] acetaminophen 500 mg tablet 500 mg PO Q6H PRN pain/fever 02/16/22 [History Last Taken Unknown] albuterol sulfate 90 mcg/actuation aerosol inhaler See Rx Instructions .Route .COMPLEX PRN coughing and wheezing 02/16/22 [History Last Taken Unknown] amlodipine 10 mg tablet 10 mg PO DAILY HTN 02/16/22 [History Last Taken 02/16/22] ondansetron 4 mg disintegrating tablet 4 mg PO Q6H PRN Nausea 02/16/22 [History Last Taken 02/16/22] valbenazine 80 mg capsule (Ingrezza) 80 mg PO DAILY TARDIVS DYSKINESIA 02/16/22 [History Last Taken 02/16/22] pantoprazole 40 mg tablet,delayed release 40 mg PO BID 8 weeks #112 tabs 02/23/22 [Rx Last Taken Unknown] clonazepam 0.25 mg disintegrating tablet 0.25 mg PO DAILY 10/14/22 [History Last Taken Unknown] divalproex 125 mg tablet,delayed release (Depakote) 125 mg PO BID 10/14/22 [History Last Taken Unknown] ferrous sulfate 325 mg (65 mg iron) tablet 325 mg PO BID 10/14/22 [History Last Taken Unknown] mecobalamin (vitamin B12) 500 mcg chewable tablet mcg PO DAILY 10/14/22 [History Last Taken Unknown] apixaban 5 mg tablet (Eliquis) 5 mg PO BID #60 tabs 11/14/22 [Rx Last Taken Unknown] azithromycin 250 mg tablet 250 mg PO DAILY #4 TABLETS 06/25/23 [Rx Last Taken Unknown] Allergy/AdvReac Type Severity Reaction Status Date / Time amoxicillin [Amoxicillin] Allergy Hives Verified 06/25/23 05:20 latex Allergy Rash Verified 06/25/23 05:20 lisinopril Allergy Unknown Verified 06/25/23 05:20 Penicillins Allergy Hives Verified 06/25/23 05:20 venom-honey bee Allergy Swelling Verified 06/25/23 05:20 [bee venom (honey bee)] ciprofloxacin [From Cipro] AdvReac Nausea/Vom/ Verified 06/25/23 05:20 Diarrhea Surgical History History of History of mitral valve replacement with bioprosthetic valve (07/23/09) History of partial colectomy Presence of cardiac pacemaker (09/21/20) Social History current occupational status: unemployed Smoking Status: Current every day smoker tobacco type: cigarettes second hand exposure: Yes alcohol intake: current alcohol intake frequency: holidays/special occasions only details: RARELY substance use type: does not use caffeine: Yes Type: carbonated beverages Number of servings: 1 what type of physical activity do you participate in: none seatbelt use: always ROS ROS ED Constitutional Constitutional ED: Denies chills or fever(s) Eyes Eyes: Denies blurry vision, change in vision or diplopia ENT ENT ED: Reports ear pain; Denies rhinorrhea or sore throat Cardiovascular Cardiovascular: Denies chest pain or palpitations Respiratory/Chest Respiratory/Chest: Denies cough Gastrointestinal Gastrointestinal: Denies nausea or vomiting Musculoskeletal Musculoskeletal: Denies back pain or neck pain Integumentary Denies rash Neurologic Neurologic: Reports other Details: States headache but all her pain is around the left ear. ; Denies paresthesias or weakness Psychiatric Psychiatric: Reports anxiety Endocrine Endocrinology: Denies polydipsia or polyuria Hematologic/Lymphatic Hematologic/Lymphatic: Reports easy bleeding and easy bruising Allergic/Immunologic Allergic/Immunologic ED: Denies urticaria EXAM Physical Exam Narrative Exam Narrative: Neuro: Patient awake alert no acute distress. HEENT: No facial swelling or tenderness. No rash. No vesicles. Negative Mcfarlane sign. She is edentulous. She does have tenderness right at the TMJ and pain with motion. But she states is more inside. The left eardrum is a bit red. There is some fluid. There is no drainage even though she states she feels like it is draining. No swelling of the auricle. Neck is supple free range of motion and no pain. Heart is regular. Lungs are clear bilaterally. Saturations are normal at 98% on room air showing no hypoxia. Abdomen is soft completely nontender. Extremities show no abnormal bruising. Free range of motion. Neurologic: Patient awake alert appropriate consistent informant. Const Vital Signs: 06/25/23 05:17 06/25/23 05:20 Temperature 97.8 F Temperature Source Temporal Pulse Rate 94 Respiratory Rate 16 Respiratory Pattern Normal Blood Pressure 159/98 H Blood Pressure Mean 118 Pulse Ox 98 MDM MDM MDM Narrative Medical decision making narrative: Patient has mixed features. The tympanic membrane the left is a red and irritated. She has some features of TMJ but most of the pain is more internal. But she is not the best informant for details. With her having complaints of headache and being on Eliquis I will scan her head to make sure were not missing an internal issue. My independent interpretation of the patient's CT of the head shows chronic encephalomalacia. I did compare this to prior film of 02/16/2022. I do not see any acute process. Final reading is pending. Reading shows prior changes from her coiling but no acute process. I discussed this with the patient. Radiography Diagnostic Testing: Clinical Impression(s) from Imaging Studies Brain CT 06/25/23 05:29 IMPRESSION: No CT evidence of acute intracranial hemorrhage or injury. Sequela of prior aneurysm coiling infarcts as above. Moderate senescent changes. Electronically Signed: Ko Barnes MD at 6:35 EST , Discharge Plan Triage Chief Complaint: Cold Sx ED Provider: Bryson Hua Dx/Rx/DC Orders Clinical Impression: Acute otitis media, left, Medication induced coagulopathy Instructions: ED Otitis Media Antibiotic ... Prescriptions: New azithromycin [azithromycin] 250 mg tablet 250 mg PO DAILY Qty: 4 0RF No Action ferrous sulfate 325 mg (65 mg iron) tablet 325 mg PO BID divalproex [Depakote] 125 mg tablet,delayed release (DR/EC) 125 mg PO BID clonazepam 0.25 mg tablet,disintegrating 0.25 mg PO DAILY mecobalamin (vitamin B12) 500 mcg tablet,chewable PO DAILY docusate sodium 100 mg Capsule 100 mg PO BID cholecalciferol (vitamin D3) 125 mcg (5,000 unit) Capsule 125 mcg PO DAILY rosuvastatin 5 mg tablet 5 mg PO QHS acetaminophen 500 mg Tablet 500 mg PO Q6H PRN (Reason: pain/fever) ondansetron 4 mg Tablet,Disintegrating 4 mg PO Q6H PRN (Reason: Nausea) amlodipine 10 mg Tablet 10 mg PO DAILY Ingrezza 80 mg Capsule 80 mg PO DAILY albuterol sulfate 90 mcg/actuation Hfa Aerosol Inhaler See Rx Instructions .ROUTE .COMPLEX PRN (Reason: coughing and wheezing) Rx Instructions: 2 puffs pantoprazole 40 mg tablet,delayed release (DR/EC) 40 mg PO BID 56 Days Qty: 112 0RF oxcarbazepine [Trileptal] 300 mg tablet 300 mg PO BID mirtazapine [Remeron] 30 mg tablet 30 mg PO QHS Eliquis 5 mg tablet 5 mg PO BID Qty: 60 11RF Primary Care Provider: Louis Dobbs Referrals: Louis Dobbs MD [Primary Care Provider] - 3-5 Days if not improving Disposition Disposition: Home, Self Care
--- NOTE | 2023-06-25 05:29 | CT_ITS ---
INDICATION: headache EXAMINATION: CT BRAIN - CT Head or Brain W/O Contrast Injection TECHNIQUE: Multiple axial images were obtained of the head without intravenous contrast. A radiation dose optimization technique was used for this scan. IV Contrast dosage and agent: None. COMPARISON: February 16, 2022 FINDINGS: BRAIN PARENCHYMA: Anterior communicating artery and basilar tip aneurysm coils. No intra- or extra-axial hemorrhage. No evidence of acute infarct. Right frontal and bilateral parietal encephalomalacia from prior infarct. No intracranial mass or mass effect. Mild periventricular and subcortical white matter hypodense chronic small vessel white matter ischemic change. There is preservation of the ortiz/white matter interface. Posterior fossa structures are unremarkable. CSF SPACES: Moderate global cerebral volume loss. No hydrocephalus. Basal cisterns are patent. CALVARIUM, SKULL BASE, PARANASAL SINUSES AND MASTOID AIR CELLS: No acute osseous finding. Diffuse mucoperiosteal thickening. Mastoid air cells are clear. ORBITS: Both globes, extraocular muscles, optic nerves and retrobulbar fat appear unremarkable. ASPECTS Score for Acute Strokes: 10 CT/Brain/Head without Contrast IMPRESSION: No CT evidence of acute intracranial hemorrhage or injury. Sequela of prior aneurysm coiling infarcts as above. Moderate senescent changes. Electronically Signed: Ko Barnes MD at 6:35 EST ,
[2023-06-25] MEDS: Azithromycin 250 MG Tablet 500 MG PO (07:27)
== END 2023-06-25 07:34 | disposition home or self-care (01) ==
LOC: ED 06:01
PROVIDERS: Emergency Provider Emergency Medicine; PCP Internal Medicine; Visit Provider Emergency Medicine
DX: H66.92 Otitis media, unspecified, left ear (principal); J44.9 Chronic obstructive pulmonary disease, unspecified; F31.9 Bipolar disorder, unspecified; D68.8 Other specified coagulation defects; N18.9 Chronic kidney disease, unspecified; Z86.73 Personal history of transient ischemic attack (TIA), and cerebral infarction without residual deficits; F41.9 Anxiety disorder, unspecified; Z79.899 Other long term (current) drug therapy; Z79.01 Long term (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 anticoagulants
CPT/HCPCS: 70450; 99284

== ENCOUNTER 2023-07-24 12:11 | Observation (INO) | payer MEDICARE, MEDICAID, SELFPAY ==
[2023-07-24] VITALS (13 sets, daily range): BP systolic 131–213; BP diastolic 67–182; PULSE 77–96; RESP 16–26; TEMP 36.6–36.8; O2SAT 96–98; BMI 34.7; BMI 33.0
--- NOTE | 2023-07-24 12:21 | EDS_ITS ---
<Statement entered by Arie Thomas MD - 07/24/23 14:04> Pt seen & evaluated w/EITAN. I personally interviewed & exam the pt. I was involved in all aspects of pt's orders, interpretation of results & treatment Dr. Thomas: I have personally performed a face to face assessment of the patient and have reviewed the EITAN Note. I performed a substantive portion of the visit including all aspects of the following. My thomas findings include: History is shortness of breath with ambulation times months. Smoker. Does not wear oxygen at home. Takes Eliquis daily. Exam is afebrile. Vital signs noted. Regular rate and rhythm. Lungs clear to auscultation bilaterally, moving a good amount of air. No wheezing. Medical Decision Making: Concern is for COPD exacerbation versus pneumonia versus pneumothorax. I have low suspicion for pulmonary embolism as she has been compliant with her Eliquis. Check chest x-ray. Check labs. No significant anemia. Chest x-ray in 1 view interpreted by myself independently shows no evidence of pneumonia or pneumothorax. Patient has oxygen saturation of 96% on room air at rest. With ambulation she is significantly hypoxic at 78% on room air. I do feel that this is most likely a COPD exacerbation. She will be given a DuoNeb aerosolized treatment. Smoking cessation was discussed. Patient discussed with the hospitalist, Dr. Twyla Scherer, for admission. She would like a BNP added prior to admission. Patient is in stable condition. Other additions or changes: [None] HPI History of Present Illness Chief Complaint: Shortness of Breath Narrative Narrative: 57-year-old female with PMH of HTN, HLD, mitral valve replacement on Eliquis, A- fib, bipolar, tardive dyskinesia presents with worsening dyspnea on exertion. She states has been present for months but worsened over the last couple days. She feels fine at rest. She denies cough or orthopnea. No chest pain, palpitations, or syncope. She smokes 1 PPD and uses an inhaler. 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 Mitral regurgitation Non-ischemic cardiomyopathy Schizophrenia Sick sinus syndrome Stroke/cerebrovascular accident Unsteady gait Home Medications mirtazapine 30 mg tablet (Remeron) 30 mg PO QHS Check with primary doctor 03/03/21 [History Last Taken 02/15/22] oxcarbazepine 300 mg tablet (Trileptal) 300 mg PO BID SEIZURES 03/03/21 [History Last Taken 02/16/22] cholecalciferol (vitamin D3) 125 mcg (5,000 unit) capsule 125 mcg PO DAILY supplement 12/14/21 [History Last Taken 02/16/22] docusate sodium 100 mg capsule 100 mg PO BID CONSTPATION 12/14/21 [History Last Taken 02/16/22] rosuvastatin 5 mg tablet 5 mg PO QHS CHOLESTEROL 12/14/21 [History Last Taken 02/10/22] acetaminophen 500 mg tablet 500 mg PO Q6H PRN pain/fever 02/16/22 [History Last Taken Unknown] albuterol sulfate 90 mcg/actuation aerosol inhaler See Rx Instructions .Route .COMPLEX PRN coughing and wheezing 02/16/22 [History Last Taken Unknown] amlodipine 10 mg tablet 10 mg PO DAILY HTN 02/16/22 [History Last Taken 02/16/22] ondansetron 4 mg disintegrating tablet 4 mg PO Q6H PRN Nausea 02/16/22 [History Last Taken 02/16/22] valbenazine 80 mg capsule (Ingrezza) 80 mg PO DAILY TARDIVS DYSKINESIA 02/16/22 [History Last Taken 02/16/22] pantoprazole 40 mg tablet,delayed release 40 mg PO BID 8 weeks #112 tabs 02/23/22 [Rx Last Taken Unknown] clonazepam 0.25 mg disintegrating tablet 0.25 mg PO DAILY 10/14/22 [History Last Taken Unknown] divalproex 125 mg tablet,delayed release (Depakote) 125 mg PO BID 10/14/22 [History Last Taken Unknown] ferrous sulfate 325 mg (65 mg iron) tablet 325 mg PO BID 10/14/22 [History Last Taken Unknown] mecobalamin (vitamin B12) 500 mcg chewable tablet mcg PO DAILY 10/14/22 [History Last Taken Unknown] apixaban 5 mg tablet (Eliquis) 5 mg PO BID #60 tabs 11/14/22 [Rx Last Taken Unknown] Allergy/AdvReac Type Severity Reaction Status Date / Time amoxicillin [Amoxicillin] Allergy Hives Verified 07/24/23 12:22 latex Allergy Rash Verified 07/24/23 12:22 lisinopril Allergy Unknown Verified 07/24/23 12:22 Penicillins Allergy Hives Verified 07/24/23 12:22 venom-honey bee Allergy Swelling Verified 07/24/23 12:22 [bee venom (honey bee)] ciprofloxacin [From Cipro] AdvReac Nausea/Vom/ Verified 07/24/23 12:22 Diarrhea Surgical History History of History of mitral valve replacement with bioprosthetic valve (07/23/09) History of partial colectomy Presence of cardiac pacemaker (09/21/20) Social History (Updated 07/24/23 @ 12:25 by Gabby Thorpe) household members: children housing: apartment current occupational status: unemployed Smoking Status: Current every day smoker tobacco type: cigarettes second hand exposure: Yes alcohol intake: current alcohol intake frequency: holidays/special occasions only details: RARELY substance use type: does not use caffeine: Yes Type: carbonated beverages Number of servings: 1 what type of physical activity do you participate in: none seatbelt use: always ROS ROS ED ROS Narrative Constitutional: Negative for fever, chills, malaise. CVS: Negative for palpitations, chest pain, syncope. Respiratory: Positive for shortness of breath. Negative for cough, orthopnea. GI: Negative for abdominal pain, nausea, vomiting. EXAM Physical Exam Narrative Exam Narrative: CONST: Patient sitting in no acute distress. EYES: Normal inspection. NECK: Normal inspection. RESP: No respiratory distress, CTAB. CVS: Regular rate and rhythm, no murmur, no gallop. SKIN: Color normal, no rash, warm, dry, intact. EXTREMITIES: Normal appearance, 2+ radial and PT pulses, no pedal edema, no calf tenderness. NEURO: Oriented x4. PSYCH: Normal affect. Const Vital Signs: 07/24/23 12:12 07/24/23 12:24 07/24/23 12:49 Temperature 98.3 F Temperature Source Oral Pulse Rate 96 Respiratory Rate 26 H Respiratory Effort Short of Breath Respiratory Pattern Tachypnea Blood Pressure 162/113 H Blood Pressure Mean 129 Pulse Ox 96 96 Oxygen Delivery Method Room Air Room Air Room Air 07/24/23 13:58 07/24/23 14:01 Temperature Temperature Source Pulse Rate 89 91 Respiratory Rate 25 H 16 Respiratory Effort Respiratory Pattern Normal Blood Pressure Blood Pressure Mean Pulse Ox 98 Oxygen Delivery Method MDM MDM MDM Narrative Medical decision making narrative: Patient reports worsening dyspnea on exertion for months. She smokes and has underlying lung disease. She appears well and nontoxic. Vital signs stable. In triage she was listed as tachypneic but she is not during my exam. She speaking full sentences in no distress and lungs are clear. No signs of edema present. Differential includes COPD, pneumonia, ACS. CBC and BMP are unremarkable. EKG is a paced rhythm with no ischemic changes and troponin is 5. CXR shows no acute process. She is compliant with Eliquis for history of A- fib/valve replacement so I do not suspect PE or think a D-dimer is needed. Patient's pulse ox at rest is 94% or above but with ambulation dropped to 78%. I do not have a way to discharge her home with oxygen and she will need admitted. I suspect is from underlying COPD. Case was discussed with the hospitalist for admission. Lab Data Attestation: I reviewed the patient's lab results. Labs: Laboratory Results - last 24 hr 07/24/23 12:45 WBC 8.2 RBC 4.74 Hgb 15.3 H Hct 47.3 H MCV 99.8 H MCH 32.3 H MCHC 32.3 RDW Std Deviation 48.0 H RDW Coeff of Jonathon 13.0 Plt Count 173 MPV 9.5 Immature Gran % (Auto) 0.200 Neut % (Auto) 67.7 Lymph % (Auto) 19.9 Rooks % (Auto) 7.9 Eos % (Auto) 3.3 Baso % (Auto) 1.0 Absolute Neuts (auto) 5.6 Absolute Lymphs (auto) 1.63 Nucleated RBC % 0 Sodium 141 Potassium 4.4 Chloride 110 H Carbon Dioxide 26.0 Anion Gap 5 BUN 11 Creatinine 0.94 Estim Creat Clear Calc 53.48 Est GFR (MDRD) Af Amer 79 Est GFR (MDRD) Non-Af 65 BUN/Creatinine Ratio 11.7 Glucose 91 Calcium 9.3 Troponin I High Sens 5 B-Natriuretic Peptide 34.1 Radiography Diagnostic Testing: Clinical Impression(s) from Imaging Studies Chest X-Ray 07/24/23 12:58 IMPRESSION: Hyperinflation. No acute abnormality is seen. Electronically Signed: Miguel Lau MD at 13:12 EST , ED attending interpretation of 2-view chest x-ray shows normal heart size, no acute infiltrate, edema, or effusion. EKG Initial EKG: Attestation: I personally reviewed and interpreted this EKG as follows: Comments: Atrial sensed ventricular paced rhythm at 85 bpm No STEMI Discharge Plan Triage Chief Complaint: Shortness of Breath ED Midlevel Provider: Lynn Conti ED Provider: Arie Thomas Dx/Rx/DC Orders Clinical Impression: Dyspnea on exertion, Tobacco use Instructions: ED Dyspnea Prescriptions: No Action ferrous sulfate 325 mg (65 mg iron) tablet 325 mg PO BID divalproex [Depakote] 125 mg tablet,delayed release (DR/EC) 125 mg PO BID clonazepam 0.25 mg tablet,disintegrating 0.25 mg PO DAILY mecobalamin (vitamin B12) 500 mcg tablet,chewable PO DAILY docusate sodium 100 mg Capsule 100 mg PO BID cholecalciferol (vitamin D3) 125 mcg (5,000 unit) Capsule 125 mcg PO DAILY rosuvastatin 5 mg tablet 5 mg PO QHS acetaminophen 500 mg Tablet 500 mg PO Q6H PRN (Reason: pain/fever) ondansetron 4 mg Tablet,Disintegrating 4 mg PO Q6H PRN (Reason: Nausea) amlodipine 10 mg Tablet 10 mg PO DAILY Ingrezza 80 mg Capsule 80 mg PO DAILY albuterol sulfate 90 mcg/actuation Hfa Aerosol Inhaler See Rx Instructions .ROUTE .COMPLEX PRN (Reason: coughing and wheezing) Rx Instructions: 2 puffs pantoprazole 40 mg tablet,delayed release (DR/EC) 40 mg PO BID 56 Days Qty: 112 0RF oxcarbazepine [Trileptal] 300 mg tablet 300 mg PO BID mirtazapine [Remeron] 30 mg tablet 30 mg PO QHS Eliquis 5 mg tablet 5 mg PO BID Qty: 60 11RF Primary Care Provider: Louis Dobbs Referrals: Louis Dobbs MD [Primary Care Provider] - Disposition Disposition: Home, Self Care
--- NOTE | 2023-07-24 12:23 | EKG12_ITS ---
Test Reason : SOB Blood Pressure : / mmHG Vent. Rate : 085 BPM Atrial Rate : 085 BPM P-R Int : 194 ms QRS Dur : 170 ms QT Int : 424 ms P-R-T Axes : 069 -75 091 degrees QTc Int : 504 ms Atrial-sensed ventricular-paced rhythm Abnormal ECG Confirmed by SATURNINO BAZAN, CHERYLE ([id number]), field map editor MAYLIN ARGUELLO ([id number]) on 07/25/2023 10:32:31 AM Referred By: Confirmed By:CHERYLE MATAMOROS MD
[2023-07-24 12:51] LABS: Absolute Lymphocyte Count 1.63 X10^3/uL (0.83-4.51); Absolute Neutrophil Count 5.6 X10^3/uL (2.0-7.7); Basophil# 0.08 X10^3/uL; Eosinophil# 0.27 X10^3/uL; Eosinophils% 3.3 % (0-5); Hematocrit 47.3 % (37-47); Hemoglobin 15.3 g/dL (12.0-15.0); Lymphocyte # 1.63 X10^3/ul (0.83-4.51); Lymphocyte % 19.9 % (19-41); Mean Corp Hgb Conc 32.3 g/dL (32-36); Mean Corpuscular Hgb 32.3 pg (27.0-32.0); Mean Corpuscular Volume 99.8 fL (81-99); Mean Platelet Vol. 9.5 fl (6.2-12.0); Monocyte# 0.65 X10^3/uL; Monocyte% 7.9 % (0-10); NRBC Flagged by Analyzer 0 % (0-5); Neutrophil # 5.55 X10^3/uL (2.7-7.7); Neutrophil % 67.7 % (47-70); Platelet Count 173 K/mm3 (150-450); Red Blood Count 4.74 M/mm3 (4.2-5.4); White Blood Count 8.2 K/mm3 (4.4-11.0)
--- NOTE | 2023-07-24 12:58 | RAD_ITS ---
STUDY: X-RAY CHEST REASON FOR EXAM: Female, 57 years old. Dyspnea TECHNIQUE: PA and lateral views of the chest. COMPARISON: Comparison is made with prior study June 08, 2022. FINDINGS: EKG electrodes are seen. Hyperinflation. There is no demonstrated pleural abnormality. Sternal cerclage wires are present from a prior sternotomy. Prior mitral valve replacement. A left-sided dual-chamber pacemaker is seen. Normal mediastinum and dee dee. Normal visualized pulmonary arteries. There is atherosclerotic calcification of the aortic arch with tortuosity. Normal visualized thoracic spine. Normal visualized ribs, clavicles, and shoulders. There is no demonstrated abnormality of the visualized soft tissue structures of the upper abdomen. RAD/Chest PA and Lateral IMPRESSION: Hyperinflation. No acute abnormality is seen. Electronically Signed: Miguel Lau MD at 13:12 EST ,
--- NOTE | 2023-07-24 13:05 | CASEMGMT ---
Social Work - [facility] intervention Patient, introduced self and social work role. This marine underwriter is familiar with patient from prior hospitalization in 2021. Patient cooperative and willing to answer social work questions. Patient denies any concerns with housing, to now be living in an apartment which is stable. Upon admission social determinants of health was triggered for transportation and food. Patient acknowledges transportation is sometimes an issue, due to unreliable taxis or insurance transportation, but also due to the patient not liking to wait for the rides to come. Patient reports to have family who will help but they also work so it is sometimes difficult. Patient denies any concerns with food and reports to currently have food in the house. Patient's 15-year-old son Nathan lives in the home, and patient reports ability to go and purchase food for Nathan when needed. Patient does have a history of children services. Patient denies any current children services involvement. Reports to have arranged for somebody to watch Nathan, to help prevent children services being called. Patient reports to go to the counseling center and to see Dr. Ren for medication management. Reports to have a waiver adult protective caseworker though was unable to tell this marine underwriter the name of that worker. Patient reports is post to have home health aide through [facility] but have been unable to find home health aides to come into the home. Patient does have a medical alert but reports she has not been wearing it. Patient reports to have 2 walkers, 2 canes, and a wheelchair to use no steps to enter. Although patient was cooperative during conversation, the patient did become agitated near the end, with movements becoming more significant and the patient spontaneously verbalizing you are pissing me off, after this marine underwriter asked if Nathan's after school program was [employer]. Patient then immediately would apologize to this marine underwriter, reporting that just wants to go home as is worried about her son. Supportive listening provided, as well as exploring whether patient did have someone looking after Nathan. Patient adamantly reported in the affirmative. This marine underwriter did provide patient some resources for food and transportation. Patient does admit to have difficulty reading. This marine underwriter reviewed [facility] van transportation. Checked with physician who reports plan to discharge today. Patient reprots could call her brother for a ride home, or will use a taxi as has taxi vouchers in patiennt's purse. No other needs requested or indicated. -DIA Nolasco, [employer]ER *This note was generated with Soapbox dictation software. It may contain incorrect words, spelling, and punctuation that were not noted in review of the chart prior to signing*
[2023-07-24 13:09] LABS: Anion Gap 5 (5-15); BUN 11 mg/dL (7-18); BUN/Creat Ratio 11.7 RATIO (10-20); Calcium,Total 9.3 mg/dL (8.5-10.1); Chloride 110 mmol/L (98-107); Creatinine, Serum 0.94 mg/dL (0.55-1.02); EST Glomerular Filtration Rate 65 mL/min (>60); Est Glom Filt Rate - Afr Amer 79 mL/min (>60); Estimated Creatinine Clearance 53.48 ml/min; Glucose 91 mg/dL (74-106); Potassium 4.4 mmol/L (3.5-5.1); Sodium Level 141 mmol/L (136-145); Troponin-I HS 5 pg/mL (3.0-54.0)
--- NOTE | 2023-07-24 13:53 | PCM.HP.STD ---
[facility] - General General Date of Admission: 07/24/23 Date of Service: 07/24/23 Chief Complaint: Dyspnea with exertion HPI Narrative FROILAN GARCÍA, is a 57 F who presented to the emergency department at [facility] on 07/24/2023 with dyspnea on exertion. It apparently has been problematic for couple months but has been worsening as of recently so she came to the emergency department for reevaluation. She does not follow with pulmonary medicine but does follow with cardiology it appears her last appointment there was in October. She had an echocardiogram done 01/10/2023 but showed an EF of 50% with a stable appearing bioprosthetic mitral valve and a mean gradient across her valve with 6.5 mmHg which was stable compared to previous study. She is still smoking a pack of cigarettes a day and does not follow with pulmonary medicine. She states she gets chills every evening but denies any cough, fever, rhinorrhea, nasal congestion, headache, myalgias or dyspnea at rest. She has severe tardive dyskinesia which makes it difficult to obtain a history due to her speech problems related to her tardive dyskinesia. She has had no sick contacts and lives at home with her 14-year-old son. Vital signs on presentation were overall unremarkable other than blood pressure elevation. Her temperature was 98.3, heart rate was 96, blood pressure was 162/113, respiratory rate was anywhere from 16-26 and oxygen saturations were 96% on room air. Her CBC shows normal white count with no left shift and erythrocytosis with a hemoglobin of 15.3. I suspect this is related to chronic hypoxia. Her chemistry panel was unremarkable. Her troponin was 5. Her BNP was 34.1. EKG is a atrial sensed and V paced rhythm without any ST-T wave changes. Her chest x-ray was unremarkable. On exam she had some scattered wheezing most prominent at bilateral bases. The original plan was to discharge the patient and an ambulatory pulse ox was obtained. During ambulation she dropped to 78% on room air therefore admission was required. I am not totally convinced that she is not chronically hypoxic with exertion and this has been worsening over time making her more symptomatic. My plan is to admit her as an observation and treat her for COPD exacerbation and obtain home oxygen for her discharge that she can utilize with exertion and obtain follow-up with pulmonary medicine after discharge. She does need to have PFTs done. We discussed extensively her tobacco abuse and need for cessation. [facility] Medical History (Updated 07/24/23 @ 14:[address] Merna Scherer, DO) AAA (abdominal aortic aneurysm) Acute UTI Anemia Anxiety Asthma Bipolar disorder Brain aneurysm CKD (chronic kidney disease) COPD (chronic obstructive pulmonary disease) CVA (cerebral vascular accident) Depressive disorder Dysphagia as late effect of cerebrovascular accident (CVA) 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 classified elsewhere Former smoker Hemiparesis due to old cerebrovascular accident longterm (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 anticoagulants longterm current use of anticoagulant Mitral regurgitation Non-ischemic cardiomyopathy Schizophrenia Sick sinus syndrome Stroke/cerebrovascular accident Tardive dyskinesia Unsteady gait Home Medications mirtazapine 30 mg tablet (Remeron) 30 mg PO QHS Check with primary doctor 03/03/21 [History Last Taken 02/15/22] oxcarbazepine 300 mg tablet (Trileptal) 300 mg PO BID SEIZURES 03/03/21 [History Last Taken 02/16/22] cholecalciferol (vitamin D3) 125 mcg (5,000 unit) capsule 125 mcg PO DAILY supplement 12/14/21 [History Last Taken 02/16/22] docusate sodium 100 mg capsule 100 mg PO BID CONSTPATION 12/14/21 [History Last Taken 02/16/22] rosuvastatin 5 mg tablet 5 mg PO QHS CHOLESTEROL 12/14/21 [History Last Taken 02/10/22] acetaminophen 500 mg tablet 500 mg PO Q6H PRN pain/fever 02/16/22 [History Last Taken Unknown] albuterol sulfate 90 mcg/actuation aerosol inhaler See Rx Instructions .Route .COMPLEX PRN coughing and wheezing 02/16/22 [History Last Taken Unknown] amlodipine 10 mg tablet 10 mg PO DAILY HTN 02/16/22 [History Last Taken 02/16/22] ondansetron 4 mg disintegrating tablet 4 mg PO Q6H PRN Nausea 02/16/22 [History Last Taken 02/16/22] valbenazine 80 mg capsule (Ingrezza) 80 mg PO DAILY TARDIVS DYSKINESIA 02/16/22 [History Last Taken 02/16/22] pantoprazole 40 mg tablet,delayed release 40 mg PO BID 8 weeks #112 tabs 02/23/22 [Rx Last Taken Unknown] clonazepam 0.25 mg disintegrating tablet 0.25 mg PO DAILY 10/14/22 [History Last Taken Unknown] divalproex 125 mg tablet,delayed release (Depakote) 125 mg PO BID 10/14/22 [History Last Taken Unknown] ferrous sulfate 325 mg (65 mg iron) tablet 325 mg PO BID 10/14/22 [History Last Taken Unknown] mecobalamin (vitamin B12) 500 mcg chewable tablet mcg PO DAILY 10/14/22 [History Last Taken Unknown] apixaban 5 mg tablet (Eliquis) 5 mg PO BID #60 tabs 11/14/22 [Rx Last Taken Unknown] Allergy/AdvReac Type Severity Reaction Status Date / Time amoxicillin [Amoxicillin] Allergy Hives Verified 07/24/23 12:22 latex Allergy Rash Verified 07/24/23 12:22 lisinopril Allergy Unknown Verified 07/24/23 12:22 Penicillins Allergy Hives Verified 07/24/23 12:22 venom-honey bee Allergy Swelling Verified 07/24/23 12:22 [bee venom (honey bee)] ciprofloxacin [From Cipro] AdvReac Nausea/Vom/ Verified 07/24/23 12:22 Diarrhea Surgical History History of History of mitral valve replacement with bioprosthetic valve (07/23/09) History of partial colectomy Presence of cardiac pacemaker (09/21/20) Social History household members: children housing: apartment current occupational status: unemployed Smoking Status: Current every day smoker tobacco type: cigarettes second hand exposure: Yes alcohol intake: current alcohol intake frequency: holidays/special occasions only details: RARELY substance use type: does not use caffeine: Yes Type: carbonated beverages Number of servings: 1 what type of physical activity do you participate in: none seatbelt use: always ROS Constitutional Constitutional: Reports chills; Denies anorexia, change in weight, fatigue, fever(s), malaise, night sweats, weakness or other Eyes Eyes: Denies blurry vision, change in eye color, change in vision, discharge from eye(s), double vision, erythema, eye pain, loss of vision or other ENT HEENT: Denies abnormal hearing, dysphagia, ear pain, epistaxis, headache(s), hearing loss, nasal congestion, nasal discharge, post nasal drip, sinus pressure, sore throat or other Cardiovascular Cardiovascular: Denies chest pain, claudication, dyspnea on exertion, edema, lightheadedness, orthopnea, palpitations, paroxysmal nocturnal dyspnea, rapid heart rate, syncope or other Respiratory/Chest Respiratory/Chest: Reports shortness of breath with exertion; Denies cough, dyspnea, excessive phlegm production, hemoptysis, productive cough, shortness of breath at rest, wheezing or other Gastrointestinal Gastrointestinal: Denies abdominal pain, coffee ground emesis, constipation, diarrhea, dyspepsia, hematemesis, hematochezia, loose stools, melena, nausea, vomiting or other Genitourinary Genitourinary: Denies burning urination, difficulty urinating, dysuria, hematuria, nocturia, urinary frequency, urinary hesitancy, urinary incontinence, urinary urgency or other Musculoskeletal Musculoskeletal: Denies arthralgias, back pain, joint pain, joint stiffness, joint swelling, myalgias, neck pain or other Neurologic Neurologic: Reports other Details: Chronic tardive dyskinesia ; Denies abnormal gait, abnormal speech, confusion, disequilibrium, dizziness, focal weakness, headache(s), numbness, paresthesias, seizure-like activity, seizures, syncope, tingling or tremor(s) Psychiatric Psychiatric: Reports other Details: Schizophrenia ; Denies anxiety, depression, homicidal ideation or suicidal ideation Endocrine Endocrinology: Denies change in body appearance, cold intolerance, excessive sweating, heat intolerance, polydipsia, polyuria or other Hematologic/Lymphatic Hematologic/Lymphatic: Denies anemia, easy bleeding, easy bruising, lymphadenopathy or other Allergic/Immunologic Allergic/Immunologic: Denies rhinitis, hives, eczemia, asthma or other Vital Signs Vital Signs Vital Signs: 07/24/23 12:12 07/24/23 12:24 07/24/23 12:49 Temperature 98.3 F Temperature Source Oral Pulse Rate 96 Respiratory Rate 26 H Respiratory Effort Short of Breath Respiratory Pattern Tachypnea Blood Pressure 162/113 H Blood Pressure Mean 129 Pulse Ox 96 96 Oxygen Delivery Method Room Air Room Air Room Air Weight Weight: 86.3 kg Body Mass Index (BMI) 34.7 Physical Exam Const alert, oriented x3, no apparent distress and well nourished; Negative for average body habitus or healthy appearing Constitutional Narrative: Middle-aged, white female, sitting up in bed, severe tardive dyskinesia however appears comfortable, nursing at bedside, on room air with no conversational dyspnea and sats are 96% on room air with conversation, patient appears much older than stated age General Appearance: cooperative HEENT normocephalic, head/scalp atraumatic, hearing grossly normal bilaterally and moist oral mucous membranes HEENT Narrative: Edentulous, Mallampati 2, no thrush Eyes PERRL, EOMs intact bilaterally and conjunctivae normal Eyes Narrative: No scleral icterus Neck no lymphadenopathy and supple Neck Narrative: Trachea midline, no thyroid enlargement Resp no retractions and no use of accessory muscles Resp Narrative: Diffusely diminished with few scattered end expiratory wheezes at bilateral bases, oxygen saturations at rest are stable on room air Cardio regular rate, regular rhythm, S1 normal heart sound, S2 normal heart sound, no murmurs, no rub, no gallops and no clicks Cardio Narrative: Heart rhythm is paced GI normal to inspection, nondistended, normoactive bowel sounds, soft to palpation and non-tender Extremity normal to inspection and full ROM Extremity Narrative: Pedal pulses are 2+, patient has clubbing of her nailbeds on her hands, no cyanosis or edema Skin no rashes or lesions noted, no wounds, skin turgor normal, no jaundice and no petechiae Neuro oriented x3, CN's II-XII intact bilaterally, moves all extremities and no focal motor deficits Neuro Narrative: Severe tardive dyskinesia, speech is pressured at times and difficult to understand due to her tardive dyskinesia Speech: Negative for speech normal Psych Psych Narrative: Affect is normal and patient interacts appropriately with good eye contact, mood seems stable Results Lab / Micro Data 07/24/23 12:45 07/24/23 12:45 Labs: Laboratory Results - last 24 hr 07/24/23 12:45: WBC 8.2, RBC 4.74, Hgb 15.3 H, Hct 47.3 H, MCV 99.8 H, MCH 32.3 H, MCHC 32.3, RDW Std Deviation 48.0 H, RDW Coeff of Jonathon 13.0, Plt Count 173, MPV 9.5, Immature Gran % (Auto) 0.200, Neut % (Auto) 67.7, Lymph % (Auto) 19.9, [place] % (Auto) 7.9, Eos % (Auto) 3.3, Baso % (Auto) 1.0, Absolute Neuts (auto) 5.6, Absolute Lymphs (auto) 1.63, Nucleated RBC % 0, Sodium 141, Potassium 4.4, Chloride 110 H, Carbon Dioxide 26.0, Anion Gap 5, BUN 11, Creatinine 0.94, Estim Creat Clear Calc 53.48, Est GFR (MDRD) Af Amer 79, Est GFR (MDRD) Non-Af 65, BUN/Creatinine Ratio 11.7, Glucose 91, Calcium 9.3, Troponin I High Sens 5 Imagaing Radiology Impression Chest X-Ray 07/24/23 12:58 IMPRESSION: Hyperinflation. No acute abnormality is seen. Electronically Signed: Miguel Lau MD at 13:12 EST , Assessment & Plan Assessment/Plan (1) Dyspnea on exertion: (2) Hypoxia: PLAN: Plan Dyspnea and hypoxia with exertion -Oxygen saturations are stable at rest on room air with sat being between 93 and 97% -Oxygen saturations dropped to mid to upper 70s on room air with exertion -I am not clear if this is her chronic state or if she has a mild COPD exacerbation causing exertional hypoxia and dyspnea -BNP is unremarkable and troponin is normal/EKG shows no change -Patient with stable recent echocardiogram -Check COVID and flu -Check respiratory viral panel Scheduled and as needed nebulizers -I-S -Acapella -Oral prednisone taper -Will check ambulatory pulse ox in the a.m. and arrange for home oxygen at discharge if still required as I highly suspect she has been having ongoing exertional hypoxia -Extensive conversation with the patient with regards to her ongoing tobacco abuse and strongly recommend cessation -Recommend outpatient pulmonary medicine follow-up after discharge -Would set up appointment prior to discharge as patient needs transportation that way we can help with van transportation for this appointment -Needs outpatient 6-minute walk test and PFTs -High suspicion that patient has COPD at baseline but is undiagnosed Erythrocytosis -Suspect related to ongoing hypoxia with exertion -We will trend -Recommend oxygen supplementation CAD/HTN/HPL -Continue statin -Continue amlodipine -Continue ongoing cardiology follow-up as scheduled History of erosive esophagitis/gastritis/duodenal ulcer disease -Continue home PPI 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 -#27 mm bioprosthetic Medtronic Velasco mitral valve replacement--> 2008 -Echocardiogram done in January and was stable when compared to previous showing an EF of 55% -Follows at [facility] Main campus for this PAF/sick sinus syndrome/third-degree heart block -Dual-chamber pacemaker placed in 2008 -Last generator change was 09/21/2020 -Continue Eliquis -Patient is not on any rate controlling medication Schizophrenia/bipolar disease -Follows with outpatient psychiatry -Recommend ongoing outpatient follow-up Severe tardive dyskinesia -Follows with psychiatry -Patient's been on multiple medications to help with this and she states nothing has helped. -Indicates currently not taking anything Chronic left-sided weakness due to previous stroke -PT/OT evaluation while hospitalized Obesity -BMI 34.8 -Recommend weight loss -Complicates treatment, prognosis, outcomes Tobacco abuse -Smoking about 1 pack a day -Recommend cessation -Nicotine patch made available DVT prophylaxis -Continue full dose Eliquis CODE STATUS -Full code Charges/Coding Visit Charges Inpatient E&M: 58381 Init Hosp L2
[2023-07-24] MEDS: Ipratropium/Albuterol Sulfate 3 ML AMPUL.NEB INHALATION ×3 (14:00→23:30)
[2023-07-24 14:19] LABS: BNP,B-Type NATRIURETIC PEPTIDE 34.1 pg/mL (0-100)
[2023-07-24] MEDS: predniSONE 20 MG Tablet 40 MG PO (17:59)
[2023-07-24] MEDS: APIXABAN 5 MG TABLET PO (21:57)
[2023-07-24] MEDS: Mirtazapine 30 MG Tablet PO (21:57)
[2023-07-24] MEDS: Atorvastatin Calcium 10 MG Tablet PO (21:57)
[2023-07-24] MEDS: MELATONIN 3 MG TABLET PO (21:57)
[2023-07-24] MEDS: OXcarbazepine 300 MG Tablet PO (21:57)
[2023-07-24] MEDS: Divalproex Sodium 125 MG Tablet PO (21:58)
[2023-07-25] VITALS (8 sets, daily range): BP systolic 115–131; BP diastolic 48–61; PULSE 79–91; RESP 18–19; TEMP 36.4–36.7; O2SAT 94–100
[2023-07-25] MEDS: Ipratropium/Albuterol Sulfate 3 ML AMPUL.NEB INHALATION ×3 (03:02→11:51)
[2023-07-25 06:45] LABS: Absolute Lymphocyte Count 1.21 X10^3/uL (0.83-4.51); Absolute Neutrophil Count 6.1 X10^3/uL (2.0-7.7); Basophil# 0.04 X10^3/uL; Basophil% 0.5 % (0-1); Hematocrit 44.8 % (37-47); Hemoglobin 14.7 g/dL (12.0-15.0); Lymphocyte # 1.21 X10^3/ul (0.83-4.51); Lymphocyte % 15.6 % (19-41); Mean Corp Hgb Conc 32.8 g/dL (32-36); Mean Corpuscular Hgb 31.3 pg (27.0-32.0); Mean Corpuscular Volume 95.5 fL (81-99); Mean Platelet Vol. 10.1 fl (6.2-12.0); Monocyte# 0.41 X10^3/uL; Monocyte% 5.3 % (0-10); NRBC Flagged by Analyzer 0 % (0-5); Neutrophil # 6.08 X10^3/uL (2.7-7.7); Neutrophil % 78.2 % (47-70); Platelet Count 174 K/mm3 (150-450); RBC Distribution Width SD 45.8 fl (35.1-43.9); Red Blood Count 4.69 M/mm3 (4.2-5.4); White Blood Count 7.8 K/mm3 (4.4-11.0)
[2023-07-25 07:07] LABS: Anion Gap 8 (5-15); BUN 16 mg/dL (7-18); Calcium,Total 9.2 mg/dL (8.5-10.1); Chloride 108 mmol/L (98-107); Creatinine, Serum 0.89 mg/dL (0.55-1.02); EST Glomerular Filtration Rate 70 mL/min (>60); Est Glom Filt Rate - Afr Amer 85 mL/min (>60); Estimated Creatinine Clearance 56.49 ml/min; Glucose 116 mg/dL (74-106); Potassium 4.6 mmol/L (3.5-5.1); Sodium Level 140 mmol/L (136-145); Thyroid Stim Hormone (TSH) 0.51 uIU/mL (0.358-3.74)
--- NOTE | 2023-07-25 07:29 | PN.HOSP_ITS ---
Reason for Visit Reason for Visit: Diagnoses Other forms of dyspnea (07/24/23) Hypoxemia (07/24/23) Subjective Subjective Feeling better. Objective Data Objective Data Vital Signs: Vital Signs Temp Pulse Resp BP Pulse Ox O2 Del Method 36.6 C 83 18 115/61 94 Room Air 07/25/23 02:36 07/25/23 07:10 07/25/23 07:10 07/25/23 02:36 07/25/23 07:10 07/25/23 07:10 Oxygen Delivery Method Room Air Weight: 82.1 kg Body Mass Index (BMI) 33.0 Intake & Output: Intake and Output for Last 24 Hours 07/23/23 07/24/23 07/25/23 23:59 23:59 23:59 Intake Total 240 / 240 Balance 240 / 240 Lab / Micro Data 07/25/23 06:07 07/25/23 06:07 Labs: Laboratory Results - last 24 hr 07/24/23 12:45: WBC 8.2, RBC 4.74, Hgb 15.3 H, Hct 47.3 H, MCV 99.8 H, MCH 32.3 H, MCHC 32.3, RDW Std Deviation 48.0 H, RDW Coeff of Jonathon 13.0, Plt Count 173, MPV 9.5, Immature Gran % (Auto) 0.200, Neut % (Auto) 67.7, Lymph % (Auto) 19.9, [place] % (Auto) 7.9, Eos % (Auto) 3.3, Baso % (Auto) 1.0, Absolute Neuts (auto) 5.6, Absolute Lymphs (auto) 1.63, Nucleated RBC % 0, Sodium 141, Potassium 4.4, Chloride 110 H, Carbon Dioxide 26.0, Anion Gap 5, BUN 11, Creatinine 0.94, Estim Creat Clear Calc 53.48, Est GFR (MDRD) Af Amer 79, Est GFR (MDRD) Non-Af 65, BUN/Creatinine Ratio 11.7, Glucose 91, Calcium 9.3, Troponin I High Sens 5, B- Natriuretic Peptide 34.1 07/25/23 06:07: WBC 7.8, RBC 4.69, Hgb 14.7, Hct 44.8, MCV 95.5, MCH 31.3, MCHC 32.8, RDW Std Deviation 45.8 H, RDW Coeff of Jonathon 13.0, Plt Count 174, MPV 10.1, Immature Gran % (Auto) 0.400, Neut % (Auto) 78.2 H, Lymph % (Auto) 15.6 L, [place] % (Auto) 5.3, Eos % (Auto) 0.0, Baso % (Auto) 0.5, Absolute Neuts (auto) 6.1, Ab solute Lymphs (auto) 1.21, Nucleated RBC % 0, Sodium 140, Potassium 4.6, Chloride 108 H, Carbon Dioxide 24.0, Anion Gap 8, BUN 16, Creatinine 0.89, Estim Creat Clear Calc 56.49, Est GFR (MDRD) Af Amer 85, Est GFR (MDRD) Non-Af 70, BUN/Creatinine Ratio 18.0, Glucose 116 H, Calcium 9.2, TSH 0.51 Micro: Microbiology 07/24/23 14:14 Nasal Secretion SARS-CoV-2 & FLU Antigen (Rapid) - Final Influenzae A Radiography Diagnostic Testing: Radiology Impression Chest X-Ray 07/24/23 12:58 IMPRESSION: Hyperinflation. No acute abnormality is seen. Electronically Signed: Miguel Lau MD at 13:12 EST , Physical Exam Const alert and no apparent distress Resp normal respiratory effort, no retractions, no use of accessory muscles and clear to auscultation bilaterally Cardio regular rate, regular rhythm, S1 normal heart sound and S2 normal heart sound GI normal to inspection, nondistended, normoactive bowel sounds, soft to palpation, non-tender and non-distended Neuro Sensorium / Orientation: awake and alert Assessment & Plan Assessment/Plan (1) Dyspnea on exertion: (2) Hypoxia: PLAN: Plan Dyspnea and hypoxia with exertion * Oxygen saturations are stable at rest on room air with sat being between 93 and 97%. Oxygen saturations dropped to mid to upper 70s on room air with exertion * Positive influenza A. BNP is unremarkable and troponin is normal/EKG shows no change. COVID 19 negative. Check respiratory viral panel. * Scheduled and as needed nebulizers. I-S. Acapella * Oral prednisone taper * Ambulatory pulse ox today showed that patient was 90% with ambulation on room air. Therefore not require oxygen upon discharge. * Follow up with pulmonary as outpt. Erythrocytosis * Mild. Likely related with chronic undiagnsed respiratory disorder. Tobacco abuse. No additional work up at this time. 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-#27 mm bioprosthetic Medtronic Velasco mitral valve replacement--> 2008- Echocardiogram done in January and was stable when compared to previous showing an EF of 55%-Follows at [facility] Main campus for this * PAF/sick sinus syndrome/third-degree heart vphep-Lwic-jmpynar pacemaker placed in 2008-Last generator change was 09/21/2020-Continue Eliquis-Patient is not on any rate controlling medication * Schizophrenia/bipolar disease-Follows with outpatient psychiatry-Recommend ongoing outpatient follow-up * Severe tardive dyskinesia-Follows with psychiatry-Patient's been on multiple medications to help with this and she states nothing has helped.-Indicates currently not taking anything * Chronic left-sided weakness due to previous stroke-PT/OT evaluation while hospitalized * Obesity-BMI 34.8-Recommend weight loss-Complicates treatment, prognosis, outcomes * Tobacco abuse-Smoking about 1 pack a day-Recommend cessation-Nicotine patch made available DVT prophylaxis: Not indicated as patient is on apixaban CODE STATUS -Full code
[2023-07-25] MEDS: Pantoprazole Sodium 40 MG Tablet PO (09:29)
[2023-07-25] MEDS: predniSONE 20 MG Tablet 40 MG PO (09:29)
[2023-07-25] MEDS: APIXABAN 5 MG TABLET PO (09:30)
[2023-07-25] MEDS: amLODIPine 10 MG Tablet PO (09:30)
[2023-07-25] MEDS: Divalproex Sodium 125 MG Tablet PO (09:31)
[2023-07-25] MEDS: OXcarbazepine 300 MG Tablet PO (09:31)
--- NOTE | 2023-07-25 13:35 | DS.PCM_ITS ---
Providers Date of Admission: 07/24/23 Primary Care Physician: Dr. Louis Dobbs MD Reason For Visit: AMBULATORY HYPOXIA Diagnosis Discharge Diagnosis (1) Dyspnea on exertion: Status: Acute Code(s): R06.09 - Other forms of dyspnea (2) Hypoxia: Status: Acute Code(s): R09.02 - Hypoxemia Plan Dyspnea and hypoxia with exertion * Oxygen saturations are stable at rest on room air with sat being between 93 and 97%. Oxygen saturations dropped to mid to upper 70s on room air with exertion * Positive influenza A. BNP is unremarkable and troponin is normal/EKG shows no change. COVID 19 negative. Check respiratory viral panel. * Scheduled and as needed nebulizers. I-S. Acapella * Oral prednisone taper * Ambulatory pulse ox today showed that patient was 90% with ambulation on room air. Therefore not require oxygen upon discharge. * Follow up with pulmonary as outpt. Erythrocytosis * Mild. Likely related with chronic undiagnsed respiratory disorder. Tobacco abuse. No additional work up at this time. 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-#27 mm bioprosthetic [employer] Velasco mitral valve replacement--> 2008- Echocardiogram done in January and was stable when compared to previous showing an EF of 55%-Follows at [facility] for this * PAF/sick sinus syndrome/third-degree heart weawu-Qfgw-wugzgod pacemaker placed in 2008-Last generator change was 09/21/2020-Continue Eliquis-Patient is not on any rate controlling medication * Schizophrenia/bipolar disease-Follows with outpatient psychiatry-Recommend ongoing outpatient follow-up * Severe tardive dyskinesia-Follows with psychiatry-Patient's been on multiple medications to help with this and she states nothing has helped.-Indicates currently not taking anything * Chronic left-sided weakness due to previous stroke-PT/OT evaluation while hospitalized * Obesity-BMI 34.8-Recommend weight loss-Complicates treatment, prognosis, outcomes * Tobacco abuse-Smoking about 1 pack a day-Recommend cessation-Nicotine patch made available DVT prophylaxis: Not indicated as patient is on apixaban CODE STATUS -Full code Medications at Discharge Home Medications mirtazapine 30 mg tablet (Remeron) 30 mg PO QHS Check with primary doctor 03/03/21 oxcarbazepine 300 mg tablet (Trileptal) 300 mg PO BID SEIZURES 03/03/21 cholecalciferol (vitamin D3) 125 mcg (5,000 unit) capsule 125 mcg PO DAILY s upplement 12/14/21 docusate sodium 100 mg capsule 100 mg PO BID CONSTPATION 12/14/21 rosuvastatin 5 mg tablet 5 mg PO QHS CHOLESTEROL 12/14/21 acetaminophen 500 mg tablet 500 mg PO Q6H PRN pain/fever 02/16/22 albuterol sulfate 90 mcg/actuation aerosol inhaler See Rx Instructions .Route .COMPLEX PRN coughing and wheezing 02/16/22 amlodipine 10 mg tablet 10 mg PO DAILY HTN 02/16/22 ondansetron 4 mg disintegrating tablet 4 mg PO Q6H PRN Nausea 02/16/22 valbenazine 80 mg capsule (Ingrezza) 80 mg PO DAILY TARDIVS DYSKINESIA 02/16/22 pantoprazole 40 mg tablet,delayed release 40 mg PO BID 8 weeks #112 tabs 02/23/22 clonazepam 0.25 mg disintegrating tablet 0.25 mg PO DAILY 10/14/22 divalproex 125 mg tablet,delayed release (Depakote) 125 mg PO BID 10/14/22 ferrous sulfate 325 mg (65 mg iron) tablet 325 mg PO BID 10/14/22 mecobalamin (vitamin B12) 500 mcg chewable tablet mcg PO DAILY 10/14/22 apixaban 5 mg tablet (Eliquis) 5 mg PO BID #60 tabs 11/14/22 prednisone 20 mg tablet 40 mg (2 x 20 mg) PO DAILY@0800 4 days #8 tabs 07/25/23 Hospital Course Operations None Procedures None Summary of Care Provided Minutes Spent on Discharge: 32 Hospital Course: Patient presents with hypoxia and shortness of breath. Patient was positive for influenza A. Was hypoxic when she arrived room air with ambulation. Patient was brought and started on steroids. Concerned the patient may have some underlying COPD given her extensive tobacco history but has never been formally diagnosed. But overnight patient did well with steroids and ambulated today and dropped down to 98% on room air. Patient be discharged to complete a course of prednisone. Patient advised also follow-up pulmonology to have PFTs to evaluate if she does have underlying COPD or asthma. Weight / BMI Weight Weight: 82.1 kg Body Mass Index (BMI) 33.0 ABG / Lab / Microbiology Data 07/25/23 06:07 07/25/23 06:07 Laboratory: Laboratory Results - last 24 hr 07/24/23 12:45: B-Natriuretic Peptide 34.1 07/25/23 06:07: WBC 7.8, RBC 4.69, Hgb 14.7, Hct 44.8, MCV 95.5, MCH 31.3, MCHC 32.8, RDW Std Deviation 45.8 H, RDW Coeff of Jonathon 13.0, Plt Count 174, MPV 10.1, Immature Gran % (Auto) 0.400, Neut % (Auto) 78.2 H, Lymph % (Auto) 15.6 L, [place] % (Auto) 5.3, Eos % (Auto) 0.0, Baso % (Auto) 0.5, Absolute Neuts (auto) 6.1, Absolute Lymphs (auto) 1.21, Nucleated RBC % 0, Sodium 140, Potassium 4.6, Chloride 108 H, Carbon Dioxide 24.0, Anion Gap 8, BUN 16, Creatinine 0.89, Estim Creat Clear Calc 56.49, Est GFR (MDRD) Af Amer 85, Est GFR (MDRD) Non-Af 70, BUN/Creatinine Ratio 18.0, Glucose 116 H, Calcium 9.2, TSH 0.51 Microbiology: Microbiology 07/24/23 14:14 Nasal Secretion SARS-CoV-2 & FLU Antigen (Rapid) - Final Influenzae A D/C Instructions Discharge Diet: Low fat / Low cholesterol Call your doctor if you observe: Shortness of breath Meaningful Use Info Meaningful Use Diagnoses (Choose all that apply): None applicable Discharge Plan Admission Admit Date/Time: 07/24/23 14:42 Primary Reason for Your Visit: Influenza. Hypoxia. Attending Provider: Stephan Chery Primary Care Provider: Louis Dobbs Consulting Providers: Merna Scherer Instructions Patient Instructions: ED Dyspnea Additional Instructions / Restrictions: You became hypoxic, low oxygen, after ursula influenza. You responded well. We do have you on steroids which will continue for the next several days. Is concerned that he may have underlying lung disease such as emphysema or asthma. I do recommend that he follow-up with pulmonology in the next month or so to be evaluated to see if you have underlying lung disease. Discharge Orders/Prescriptions Prescriptions: New prednisone 20 mg Tablet 40 mg PO DAILY@0800 4 Days Qty: 8 0RF Continued ferrous sulfate 325 mg (65 mg iron) tablet 325 mg PO BID divalproex [Depakote] 125 mg tablet,delayed release (DR/EC) 125 mg PO BID clonazepam 0.25 mg tablet,disintegrating 0.25 mg PO DAILY mecobalamin (vitamin B12) 500 mcg tablet,chewable PO DAILY docusate sodium 100 mg Capsule 100 mg PO BID cholecalciferol (vitamin D3) 125 mcg (5,000 unit) Capsule 125 mcg PO DAILY rosuvastatin 5 mg tablet 5 mg PO QHS acetaminophen 500 mg Tablet 500 mg PO Q6H PRN (Reason: pain/fever) ondansetron 4 mg Tablet,Disintegrating 4 mg PO Q6H PRN (Reason: Nausea) amlodipine 10 mg Tablet 10 mg PO DAILY Ingrezza 80 mg Capsule 80 mg PO DAILY albuterol sulfate 90 mcg/actuation Hfa Aerosol Inhaler See Rx Instructions .ROUTE .COMPLEX PRN (Reason: coughing and wheezing) Rx Instructions: 2 puffs pantoprazole 40 mg tablet,delayed release (DR/EC) 40 mg PO BID 56 Days Qty: 112 0RF oxcarbazepine [Trileptal] 300 mg tablet 300 mg PO BID mirtazapine [Remeron] 30 mg tablet 30 mg PO QHS Eliquis 5 mg tablet 5 mg PO BID Qty: 60 11RF Referrals / Follow Up: Pulmonary Medicine [facility] [Provider Group] - Within 1 Month Louis Dobbs MD [Primary Care Provider] - Within 2 Weeks Disposition Disposition (needs filled in before D/C Order can be placed): Home, Self Care Charges/Coding Visit Charges Inpatient E&M: 14376 Disch Hosp >30min
--- NOTE | 2023-07-25 14:20 | CASEMGMT ---
Pt does not qualify for home oxygen. RN CM into pt room, nurse and aides present, pt denies any homegoing needs. Pt is dressed and ready to go home. She states she feels safe, denies need for any therapy.
--- NOTE | 2023-07-25 14:31 | PHA.DC.MR.R ---
Pharmacy [place] Med Reconciliation Pharmacy Service has performed discharge medication reconciliation for this patient. Medication education papers prepared but was not able to counseling center manager before discharge. Medications reviewed. The patient's discharge medication list was reviewed for discrepancies and discrepancies were resolved. Medications at Discharge Home Medications mirtazapine 30 mg tablet (Remeron) 30 mg PO QHS Check with primary doctor 03/03/21 oxcarbazepine 300 mg tablet (Trileptal) 300 mg PO BID SEIZURES 03/03/21 cholecalciferol (vitamin D3) 125 mcg (5,000 unit) capsule 125 mcg PO DAILY supplement 12/14/21 docusate sodium 100 mg capsule 100 mg PO BID CONSTPATION 12/14/21 rosuvastatin 5 mg tablet 5 mg PO QHS CHOLESTEROL 12/14/21 acetaminophen 500 mg tablet 500 mg PO Q6H PRN pain/fever 02/16/22 albuterol sulfate 90 mcg/actuation aerosol inhaler See Rx Instructions .Route .COMPLEX PRN coughing and wheezing 02/16/22 amlodipine 10 mg tablet 10 mg PO DAILY HTN 02/16/22 ondansetron 4 mg disintegrating tablet 4 mg PO Q6H PRN Nausea 02/16/22 valbenazine 80 mg capsule (Ingrezza) 80 mg PO DAILY TARDIVS DYSKINESIA 02/16/22 pantoprazole 40 mg tablet,delayed release 40 mg PO BID 8 weeks #112 tabs 02/23/22 clonazepam 0.25 mg disintegrating tablet 0.25 mg PO DAILY 10/14/22 divalproex 125 mg tablet,delayed release (Depakote) 125 mg PO BID 10/14/22 ferrous sulfate 325 mg (65 mg iron) tablet 325 mg PO BID 10/14/22 mecobalamin (vitamin B12) 500 mcg chewable tablet mcg PO DAILY 10/14/22 apixaban 5 mg tablet (Eliquis) 5 mg PO BID #60 tabs 11/14/22 prednisone 20 mg tablet 40 mg (2 x 20 mg) PO DAILY@0800 4 days #8 tabs 07/25/23
== END 2023-07-25 14:23 | disposition home or self-care (01) ==
LOC: ED 13:11 → MS3 14:50
PROVIDERS: Physician Assistant; Admitting Provider Internal Medicine; Emergency Provider Emergency Medicine; PCP Internal Medicine
DX: J10.1 Influenza due to other identified influenza virus with other respiratory manifestations (principal); F20.9 Schizophrenia, unspecified; I69.354 Hemiplegia and hemiparesis following cerebral infarction affecting left non-dominant side; F31.9 Bipolar disorder, unspecified; I71.40 Abdominal aortic aneurysm, without rupture, unspecified; I48.91 Unspecified atrial fibrillation; I12.9 Hypertensive chronic kidney disease with stage 1 through stage 4 chronic kidney disease, or unspecified chronic kidney disease; N18.9 Chronic kidney disease, unspecified; E78.5 Hyperlipidemia, unspecified; R09.02 Hypoxemia; G24.01 Drug induced subacute dyskinesia; K59.00 Constipation, unspecified; K22.10 Ulcer of esophagus without bleeding; K29.00 Acute gastritis without bleeding; K26.9 Duodenal ulcer, unspecified as acute or chronic, without hemorrhage or perforation; F41.9 Anxiety disorder, unspecified; D64.9 Anemia, unspecified; I69.991 Dysphagia following unspecified cerebrovascular disease; E66.9 Obesity, unspecified; F17.210 Nicotine dependence, cigarettes, uncomplicated; Z79.899 Other long term (current) drug therapy; Z95.0 Presence of cardiac pacemaker; Z68.34 Body mass index [BMI] 34.0-34.9, adult; Z95.3 Presence of xenogenic heart valve; Z79.01 Long term (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 anticoagulants; R06.02 Shortness of breath
CPT/HCPCS: 36415; 71046; 80048; 83880; 84443; 84484; 85025; 87428; 87633; 93005; 94640; 94668; 97165; 99221; 99252; 99284; A4216; G0378; G0463

== ENCOUNTER 2024-03-09 12:57 | Emergency (ER) | payer MEDICARE, MEDICAID, SELFPAY ==
[2024-03-09 12:58] VITALS: BP 149/63; PULSE 91; RESP 15; TEMP 36.2; O2SAT 99
[2024-03-09 12:59] VITALS: BMI 37.5
--- NOTE | 2024-03-09 14:15 | RAD_ITS ---
STUDY: X-RAY - RIGHT FOOT CLINICAL: Female, 58 years old. PAIN TECHNIQUE: 3 view(s) of the foot. COMPARISON: None. FINDINGS: There is posterior spur of the calcaneus. Normal visualized subtalar, talonavicular, calcaneocuboid, tarsal and tarsometatarsal articulations. Normal metatarsi. Normal metatarsophalangeal joint of the great toe. Normal tibial and fibular sesamoid bones. Normal interphalangeal joint of the great toe. Normal phalanges of the great toe. Normal second through fifth metatarsophalangeal joints. Normal interphalangeal joints and phalanges of the lesser toes. The soft tissue structures are unremarkable. There is no demonstrated fracture. RAD/Foot min 3 Views IMPRESSION: No fracture. Small heel spur. Electronically Signed: Eduardo Jolly MD at 15:52 EDT ,
--- NOTE | 2024-03-09 15:17 | EDS_ITS ---
HPI History of Present Illness Chief Complaint: Lower Extremity Injury Detail of Chief Complaint: Injury to right foot Informant: patient Narrative Narrative: Patient presents with injury to her right foot. Patient states that a shampoo bottle dropped on her right foot yesterday. Today painful and black and blue. Denies any other injuries. [facility] Medical History (Updated 03/09/24 @ 15:[address] 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 Tardive dyskinesia Brain aneurysm CKD (chronic kidney disease) Mitral regurgitation Depressive disorder Unsteady gait Hemiparesis due to old cerebrovascular accident Acute UTI Anemia Bipolar disorder COPD (chronic obstructive pulmonary disease) AAA (abdominal aortic aneurysm) MCC (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 anticoagulants Schizophrenia Anxiety Former smoker Stroke/cerebrovascular accident Non-ischemic cardiomyopathy 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 classified elsewhere Sick sinus syndrome Asthma Dysphagia as late effect of cerebrovascular accident (CVA) CVA (cerebral vascular accident) Home Medications ?Medication ?Instructions ?Recorded ?Last Taken ?Type mirtazapine 30 mg tablet (Remeron) 30 mg PO QHS Check with primary 03/03/21 02/15/22 History doctor oxcarbazepine 300 mg tablet 300 mg PO BID SEIZURES 03/03/21 02/16/22 History (Trileptal) cholecalciferol (vitamin D3) 125 125 mcg PO DAILY supplement 12/14/21 02/16/22 History mcg (5,000 unit) capsule docusate sodium 100 mg capsule 100 mg PO BID CONSTPATION 12/14/21 02/16/22 History rosuvastatin 5 mg tablet 5 mg PO QHS CHOLESTEROL 12/14/21 02/10/22 History acetaminophen 500 mg tablet 500 mg PO Q6H PRN pain/fever 02/16/22 Unknown History albuterol sulfate 90 mcg/actuation See Rx Instructions .Route 02/16/22 Unknown History aerosol inhaler .COMPLEX PRN coughing and wheezing amlodipine 10 mg tablet 10 mg PO DAILY HTN 02/16/22 02/16/22 History ondansetron 4 mg disintegrating 4 mg PO Q6H PRN Nausea 02/16/22 02/16/22 History tablet valbenazine 80 mg capsule 80 mg PO DAILY TARDIVS DYSKINESIA 02/16/22 02/16/22 History (Ingrezza) pantoprazole 40 mg tablet,delayed 40 mg PO BID 8 weeks #112 tabs 07/20/22 Unknown Rx release clonazepam 0.25 mg disintegrating 0.25 mg PO DAILY 10/14/22 Unknown History tablet divalproex 125 mg tablet,delayed 125 mg PO BID 10/14/22 Unknown History release (Depakote) ferrous sulfate 325 mg (65 mg 325 mg PO BID 10/14/22 Unknown History iron) tablet mecobalamin (vitamin B12) 500 mcg mcg PO DAILY 10/14/22 Unknown History chewable tablet prednisone 20 mg tablet 40 mg (2 x 20 mg) PO DAILY@0800 4 07/25/23 Unknown Rx days #8 tabs apixaban 5 mg tablet (Eliquis) 5 mg PO BID #60 tabs 09/28/23 Unknown Rx Allergy/AdvReac Type Severity Reaction Status Date / Time amoxicillin (Amoxicillin) Allergy Hives Verified 03/09/24 12:58 latex Allergy Rash Verified 03/09/24 12:58 lisinopril Allergy Unknown Verified 03/09/24 12:58 Penicillins Allergy Hives Verified 03/09/24 12:58 venom-honey bee (bee venom Allergy Swelling Verified 03/09/24 12:58 (honey bee)) ciprofloxacin (From Cipro) AdvReac Nausea/Vom/ Verified 03/09/24 12:58 Diarrhea Surgical History History of History of mitral valve replacement with bioprosthetic valve (07/23/09) History of partial colectomy Presence of cardiac pacemaker (09/21/20) Social History household members: children housing: apartment current occupational status: unemployed Smoking Status: Current every day smoker tobacco type: cigarettes second hand exposure: Yes alcohol intake: current alcohol intake frequency: holidays/special occasions only details: RARELY substance use type: does not use caffeine: Yes Type: carbonated beverages Number of servings: 1 what type of physical activity do you participate in: none seatbelt use: always ROS ROS ED Review of Systems ROS Unobtainable: other Constitutional Constitutional ED: Reports lethargy; Denies chills, fever(s), sweats or weight loss Eyes Eyes: Denies blurry vision, change in vision or diplopia ENT ENT ED: Denies rhinorrhea or sore throat Cardiovascular Cardiovascular: Reports chest pain and racing heartbeat; Denies orthopnea Respiratory/Chest Respiratory/Chest: Denies cough, dyspnea, dyspnea on exertion, orthopnea or sputum Gastrointestinal Gastrointestinal: Denies abdominal pain, diarrhea, nausea or vomiting Genitourinary Genitourinary ED: Denies dysuria, hematuria or urinary frequency Musculoskeletal Musculoskeletal: Reports other Details: Right foot pain/injury ; Denies arthralgias, back pain, myalgias or neck pain Integumentary Denies abscess, Abrasions or rash Neurologic Neurologic: Denies headache(s) or weakness Psychiatric Psychiatric: Denies anxiety, depression or suicidal thoughts Endocrine Endocrinology: Denies polydipsia, polyphagia or polyuria Hematologic/Lymphatic Hematologic/Lymphatic: Denies easy bleeding, easy bruising or lymphadenopathy Allergic/Immunologic Allergic/Immunologic ED: Denies mouth swelling, tongue swelling or urticaria EXAM Physical Exam Const Vital Signs: 03/09/24 12:58 Temperature 97.1 F L Temperature Source Temporal Pulse Rate 91 Respiratory Rate 15 Blood Pressure 149/63 H Blood Pressure Mean 91 Pulse Ox 99 Oxygen Delivery Method Room Air Positive well nourished and well developed General Appearance ED: well developed and NAD HEENT Reports TM's clear and moist mucous membranes normocephalic and atraumatic; Negative for trauma or tenderness Tympanic Membrane ED: Yes TM's clear Eyes PERRL and EOMs intact bilaterally General Eye ED: Negative for pale conjunctiva or scleral icterus Neck no lymphadenopathy, supple and no JVD General: Negative for tenderness Chest Wall inspection of chest normal and palpation of chest normal Chest: Negative for tenderness Resp normal respiratory effort and clear to auscultation bilaterally Effort and Inspection: Negative for respiratory distress or pain with movement Auscultation: Negative for rhonchi, wheezes or diminished lung sounds Cardio regular rate, regular rhythm, S1 normal heart sound, S2 normal heart sound and no murmurs Peripheral Pulses: pulses 2+ throughout GI normal to inspection, nondistended, normoactive bowel sounds, soft to palpation, non-tender, non-distended and no masses Back/Spine no CVA tenderness and no thoracic nor lumbar tenderness Extremity Extremity Narrative: Right foot-patient has diffuse ecchymosis and bruising over the distal dorsal portion of the foot involving the third fourth and fifth metatarsal phalangeal joints. No obvious deformity. General Extremety ED: Negative for edema General Extremity: Negative for edema Neuro oriented x3, CN's II-XII intact bilaterally, no sensory deficits noted and gait normal Sensorium / Orientation: awake, alert, oriented to person, oriented to place and oriented to time Motor Exam: strength 5/5 throughout and strength abnormal Psych mental status grossly normal Skin no rashes or lesions noted and no wounds MDM MDM MDM Narrative Medical decision making narrative: Patient presents with injury to the right foot with bruising. X-rays obtained interpreted by myself as no evidence of fracture or dislocation. Radiology in agreement. This point she is instructed to ice and elevate the extremity. She is to use ibuprofen or Tylenol for discomfort. Advised to follow-up with primary care physician within next 5 to 7 days. Radiography Diagnostic Testing: Clinical Impression(s) from Imaging Studies Foot X-Ray 03/09/24 14:15 IMPRESSION: No fracture. Small heel spur. Electronically Signed: Eduardo Jolly MD at 15:52 EDT Reading Location ID and State: [address] [place] [address] , Service support , Three-view x-rays of the right foot obtained interpreted by myself as no evidence of fracture or dislocation. Radiology in agreement. Discharge Plan Triage Chief Complaint: Lower Extremity Injury ED Provider: Víctor Meza Dx/Rx/DC Orders Clinical Impression: Contusion of foot, right Instructions: ED Foot Contusion Prescriptions: No Action ferrous sulfate 325 mg (65 mg iron) tablet 325 mg PO BID divalproex [Depakote] 125 mg tablet,delayed release (DR/EC) 125 mg PO BID clonazepam 0.25 mg tablet,disintegrating 0.25 mg PO DAILY mecobalamin (vitamin B12) 500 mcg tablet,chewable PO DAILY docusate sodium 100 mg Capsule 100 mg PO BID cholecalciferol (vitamin D3) 125 mcg (5,000 unit) Capsule 125 mcg PO DAILY rosuvastatin 5 mg tablet 5 mg PO QHS acetaminophen 500 mg Tablet 500 mg PO Q6H PRN (Reason: pain/fever) ondansetron 4 mg Tablet,Disintegrating 4 mg PO Q6H PRN (Reason: Nausea) amlodipine 10 mg Tablet 10 mg PO DAILY Ingrezza 80 mg Capsule 80 mg PO DAILY albuterol sulfate 90 mcg/actuation Hfa Aerosol Inhaler See Rx Instructions .ROUTE .COMPLEX PRN (Reason: coughing and wheezing) Rx Instructions: 2 puffs pantoprazole 40 mg tablet,delayed release (DR/EC) 40 mg PO BID 56 Days Qty: 112 0RF prednisone 20 mg Tablet 40 mg PO DAILY@0800 4 Days Qty: 8 0RF oxcarbazepine [Trileptal] 300 mg tablet 300 mg PO BID mirtazapine [Remeron] 30 mg tablet 30 mg PO QHS Eliquis 5 mg tablet 5 mg PO BID Qty: 60 11RF Primary Care Provider: Louis Dobbs Referrals: Louis Dobbs MD [Primary Care Provider] - 5-7 Days Print Language: Kinyarwanda Disposition Disposition: Home, Self Care
[2024-03-09 16:22] VITALS: BP 132/75; PULSE 80; RESP 18; TEMP 36.6; O2SAT 96
== END 2024-03-09 16:23 | disposition home or self-care (01) ==
PROVIDERS: Emergency Provider Emergency Medicine; PCP Internal Medicine; Visit Provider Emergency Medicine
DX: S90.31XA Contusion of right foot, initial encounter (principal); J44.9 Chronic obstructive pulmonary disease, unspecified; I42.8 Other cardiomyopathies; W20.8XXA Other cause of strike by thrown, projected or falling object, initial encounter; N18.9 Chronic kidney disease, unspecified; F17.210 Nicotine dependence, cigarettes, uncomplicated; Z79.01 Long term (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 anticoagulants; Z79.899 Other long term (current) drug therapy
CPT/HCPCS: 73630; 99282

== ENCOUNTER → 2024-06-12 | Outpatient (CLI) | payer MEDICARE, MEDICAID, SELFPAY ==
[2024-06-12 15:19] LABS: Anion Gap 9 (5-15); BUN 20 mg/dL (7-18); BUN/Creat Ratio 16.9 RATIO (10-20); Calcium,Total 8.8 mg/dL (8.5-10.1); Chloride 104 mmol/L (98-107); Creatinine, Serum 1.18 mg/dL (0.55-1.02); EST Glomerular Filtration Rate 50 mL/min (>60); Est Glom Filt Rate - Afr Amer 61 mL/min (>60); Glucose 130 mg/dL (74-106); Potassium 3.1 mmol/L (3.5-5.1); Sodium Level 139 mmol/L (136-145)
== END | disposition home or self-care (01) ==
LOC: LAB 14:16
PROVIDERS: PCP Internal Medicine; Referring Provider Internal Medicine Cardiovascular Disease; Visit Provider Internal Medicine Cardiovascular Disease
DX: R06.09 Other forms of dyspnea (principal); I10 Essential (primary) hypertension; I95.9 Hypotension, unspecified; R53.1 Weakness
CPT/HCPCS: 36415; 80048

== ENCOUNTER → 2024-06-18 | Outpatient (CLI) | payer MEDICARE, MEDICAID, SELFPAY ==
--- NOTE | 2024-06-18 06:16 | ECHOCS_ITS ---
Reason For Study: Palpitations Procedure This was a 2D Doppler, Color Flow transthoracic echocardiogram. Contrast injection was performed. Exam performed in department. Left Ventricle Normal size and thickness. Mild generalized hypokinesis. Estimated LVEF 40 to 45%. Right Ventricle Mildly dilated right ventricle. ICD or pacer leads identified within the right ventricle. Atria The left atrium is severely enlarged. The right atrium is mildly enlarged. ICD or pacer leads identified within the right atrium. Mitral Valve Bioprosthetic mitral valve appears stable. Mean peak gradient 6.2 mmHg. Gradient from last year was 6.5 mmHg. Tricuspid Valve Moderately severe (3+) tricuspid valve insufficiency. Right ventricular systolic pressure estimated to be 38 mmHg. Aortic Valve Trivial aortic valve insufficiency. Pulmonic Valve The pulmonic valve is not well visualized. Great Vessels Normal sized aortic root. Pericardium/Pleural No pericardial effusion. Medication Diluted definity 2ml given slow IV push to enhance endocardial definition. MMode/2D Measurements & Calculations LVIDd: 4.5 cm IVSd: 0.87 cm LVOT diam: 1.9 cm LVIDs: 3.0 cm LVPWd: 1.0 cm RVDd: 3.5 cm FS: 33.5 % LVOT area: 2.9 cm2 asc Aorta Diam: 3.0 cm LAV(MOD-bp): 54.7 ml LVAd ap4: 29.2 cm2 LAV(MOD-bp) Indexed: 27.5 ml/m2 LVLd ap4: 8.1 cm LAV(MOD-sp2): 52.9 ml EDV(MOD-sp4): 88.9 ml LAV(MOD-sp4): 51.9 ml EDV(sp4-el): 89.7 ml LVAs ap4: 19.7 cm2 LVLs ap4: 7.2 cm ESV(MOD-sp4): 44.8 ml ESV(sp4-el): 45.9 ml EF(MOD-sp4): 49.6 % EF(sp4-el): 48.8 % LVAd ap2: 29.5 cm2 SV(MOD-sp4): 44.1 ml SV(MOD-sp2): 50.6 ml LVLd ap2: 7.7 cm SI(MOD-sp4): 22.2 ml/m2 SI(MOD-sp2): 25.4 ml/m2 EDV(MOD-sp2): 95.0 ml EDV(sp2-el): 95.7 ml LVAs ap2: 19.7 cm2 LVLs ap2: 7.3 cm ESV(MOD-sp2): 44.4 ml ESV(sp2-el): 44.9 ml EF(MOD-sp2): 53.2 % SV(sp4-el): 43.8 ml LA A4 area: 18.7 cm2 RA A4 area: 11.1 cm2 TAPSE: 1.8 cm Time Measurements MV dec time: 0.36 sec Doppler Measurements & Calculations MV E max adair: 131.0 cm/sec MV V2 max: 160.4 cm/sec MV dec slope: 365.8 cm/sec2 MV A max adair: 149.6 cm/sec MV max P.3 mmHg MV E/A: 0.88 MV V2 mean: 119.8 cm/sec MV mean P.2 mmHg MV V2 VTI: 35.5 cm MVA(VTI): 1.9 cm2 Ao V2 max: 161.9 cm/sec LV V1 max: 114.3 cm/sec SV(LVOT): 65.9 ml Ao max P.5 mmHg LV V1 max P.2 mmHg Ao V2 mean: 118.3 cm/sec LV V1 mean P.2 mmHg Ao mean P.0 mmHg LV V1 mean: 85.4 cm/sec Ao V2 VTI: 30.6 cm LV V1 VTI: 22.4 cm AV (velocity ratio): 0.73 TUAN(I,D): 2.2 cm2 TUAN(V,D): 2.1 cm2 PA V2 max: 82.4 cm/sec TR max adair: 271.4 cm/sec TR max P.5 mmHg ECHO/Echo Complete W/ Contrast Interpretation Summary Mild generalized hypokinesis. Estimated LVEF 40 to 45%. Mildly dilated right ventricle. The left atrium is severely enlarged. The right atrium is mildly enlarged. Bioprosthetic mitral valve appears stable. Mean peak gradient 6.2 mmHg. Gradien t from last year was 6.5 mmHg. Moderately severe (3+) tricuspid valve insufficiency. Right ventricular systolic pressure estimated to be 38 mmHg. Ordering Physician: Shavon Valentin Referring Physician: Louis Dobbs Performed By: Alberta Maxwell RVT, RDCS and Student
--- NOTE | 2024-06-20 12:39 | STRESSREP ---
Stress Test Report Date: 06/18/2024 Procedure: Pharmacologic stress nuclear imaging study Indications: Palpitations Consent: Per the patient Procedure: The patient underwent pharmacologic (Regadenoson 0.4mg ) evaluation with a peak heart rate of 10 beats per minute (62%predicted maximal heart rate) and a peak blood pressure of 122/82 mmHg. The baseline ECG demonstrated electronic AV sequential pacemaker rhythm. The peak pharmacologic ECG demonstrated no diagnostic changes secondary to electronic pacemaker activity. There were no cardiac dysrhythmias pretest, during pharmacologic infusion, or recovery. There was no complaint of chest discomfort during pharmacologic infusion or recovery. The patient was injected with 11.8 millicuries of technetium 99m Cardiolite and subsequently rest SPECT Cardiolite nuclear imaging was obtained in the horizontal long, vertical long, and short axis views. The patient underwent pharmacologic (Regadenoson) evaluation. The patient was injected with 34.5 millicuries of technetium 99m Cardiolite and subsequently stress SPECT Cardiolite nuclear imaging was obtained in the horizontal long, vertical long, and short axis views. A gated Cardiolite study at peak stress was obtained. The examination was stopped secondary to completion of protocol. Rest and stress SPECT Cardiolite nuclear imaging status post realignment, normalization, and attenuation correction demonstrate a small reversible apical perfusion defect suggestive of ischemia. There is end systolic thickening and brightening. The gated Cardiolite study demonstrates myocardial thickening and inward wall motion. The reported LVEF is 61%. Impression: 1. Pharmacologic (Regadenoson) evaluation 2. Peak pharmacologic ECG with no diagnostic changes. 3. There were no cardiac dysrhythmias pretest, during pharmacologic infusion, or recovery. 5. Small reversible apical perfusion defect that may denote ischemia. Overall low risk stress test with less than 5% of myocardium at risk.. 6. The gated Cardiolite study reports an LVEF of 61%. This note was generated with Open-Xchangeation software. It may contain incorrect words, spelling, and punctuation that were not noted in checking the note before signing.
== END | disposition home or self-care (01) ==
PROVIDERS: PCP Internal Medicine; Referring Provider Internal Medicine Cardiovascular Disease; Visit Provider Internal Medicine Cardiovascular Disease
DX: Z95.3 Presence of xenogenic heart valve (principal); I48.0 Paroxysmal atrial fibrillation; I42.8 Other cardiomyopathies; R06.02 Shortness of breath; R53.1 Weakness
CPT/HCPCS: 78452; 93017; 93306; A9500; Q9957; A4216; C8929; J2785

== ENCOUNTER → 2024-06-28 | Outpatient (CLI) | payer MEDICARE, MEDICAID, SELFPAY ==
[2024-06-28 15:06] LABS: Anion Gap 8 (5-15); BUN 21 mg/dL (7-18); BUN/Creat Ratio 19.1 RATIO (10-20); Calcium,Total 9.4 mg/dL (8.5-10.1); Chloride 104 mmol/L (98-107); EST Glomerular Filtration Rate 55 mL/min (>60); Est Glom Filt Rate - Afr Amer 66 mL/min (>60); Glucose 94 mg/dL (74-106); Sodium Level 137 mmol/L (136-145)
== END | disposition home or self-care (01) ==
LOC: LAB 13:52
PROVIDERS: PCP Internal Medicine; Referring Provider Nurse Practitioner Family; Visit Provider Nurse Practitioner Family
DX: E87.6 Hypokalemia (principal)
CPT/HCPCS: 36415; 80048

== ENCOUNTER → 2024-08-14 | Outpatient (CLI) | payer MEDICARE, MEDICAID, SELFPAY ==
[2024-08-14 11:15] LABS: Absolute Lymphocyte Count 1.26 X10^3/uL (0.83-4.51); Absolute Neutrophil Count 5.3 X10^3/uL (2.0-7.7); Basophil# 0.07 X10^3/uL; Basophil% 0.9 % (0-1); Eosinophil# 0.23 X10^3/uL; Eosinophils% 3.1 % (0-5); Hematocrit 41.5 % (37-47); Hemoglobin 13.4 g/dL (12.0-15.0); Lymphocyte # 1.26 X10^3/ul (0.83-4.51); Lymphocyte % 16.8 % (19-41); Mean Corp Hgb Conc 32.3 g/dL (32-36); Mean Corpuscular Volume 92.8 fL (81-99); Mean Platelet Vol. 10.2 fl (6.2-12.0); Monocyte# 0.59 X10^3/uL; Monocyte% 7.9 % (0-10); NRBC Flagged by Analyzer 0 % (0-5); Neutrophil # 5.32 X10^3/uL (2.7-7.7); Platelet Count 225 K/mm3 (150-450); RBC Distribution Width CV 13.4 % (11.6-14.6); RBC Distribution Width SD 45.2 fl (35.1-43.9); Red Blood Count 4.47 M/mm3 (4.2-5.4); White Blood Count 7.5 K/mm3 (4.4-11.0)
[2024-08-14 11:50] LABS: Anion Gap 9 (5-15); BNP,B-Type NATRIURETIC PEPTIDE 24.7 pg/mL (0-100); BUN 22 mg/dL (7-18); BUN/Creat Ratio 20.2 RATIO (10-20); Calcium,Total 9.5 mg/dL (8.5-10.1); Chloride 102 mmol/L (98-107); Creatinine, Serum 1.09 mg/dL (0.55-1.02); EST Glomerular Filtration Rate 55 mL/min (>60); Est Glom Filt Rate - Afr Amer 67 mL/min (>60); Glucose 97 mg/dL (74-106); Potassium 3.3 mmol/L (3.5-5.1); Sodium Level 136 mmol/L (136-145)
== END | disposition home or self-care (01) ==
LOC: LAB 10:34
PROVIDERS: PCP Internal Medicine; Referring Provider Internal Medicine Cardiovascular Disease; Visit Provider Internal Medicine Cardiovascular Disease
DX: R06.02 Shortness of breath (principal); E87.6 Hypokalemia
CPT/HCPCS: 36415; 80048; 83880; 85025

== ENCOUNTER → 2024-10-11 | Outpatient (CLI) | payer MEDICARE, MEDICAID, SELFPAY ==
[2024-10-11 12:40] LABS: Anion Gap 15 (5-15); BUN 21 mg/dL (4-19); BUN/Creat Ratio 18.3 RATIO (10-20); Carbon Dioxide 22.5 mmol/L (21.0-32.0); Chloride 103 mmol/L (98-108); Creatinine, Serum 1.12 mg/dL (0.70-1.20); EST Glomerular Filtration Rate 57 (>60); Glucose 91 mg/dL (70-99); Potassium 4.8 mmol/L (3.3-5.1); Sodium Level 141 mmol/L (133-145)
== END | disposition home or self-care (01) ==
LOC: LAB 09:56
PROVIDERS: PCP Internal Medicine; Referring Provider Physician Assistant Medical; Visit Provider Physician Assistant Medical
DX: E87.6 Hypokalemia (principal)
CPT/HCPCS: 36415; 80048

== ENCOUNTER 2025-01-13 13:40 | Emergency (ER) | payer MEDICARE, MEDICAID, SELFPAY ==
[2025-01-13 13:42] VITALS: BP 108/95; PULSE 92; RESP 18; TEMP 36.4; O2SAT 95; BMI 35.6
--- NOTE | 2025-01-13 15:01 | CT_ITS ---
PROCEDURE: SPINE CERVICAL WITHOUT CONTRAS 01/13/2025 REASON FOR EXAM: HEAD INJURY TECHNIQUE: Cervical spine CT without contrast. Coronal and Sagittal reconstruction series were provided. One or more dose reduction techniques were used (e.g., Automated exposure control, adjustment of the mA and/or kV according to patient size, use of iterative reconstruction technique RADIATION DOSE SUMMARY: CTDlvol: 18 mGy DLP: 370 mGycm COMPARISON: Same-day CT head, CTA head and neck 10/08/2020. FINDINGS: Alignment: Mild straightening of the normal cervical lordosis. No traumatic listhesis. Vertebrae: No acute fracture. Mild multilevel vertebral body height loss. Moderate multilevel degenerative disc disease with posterior disc osteophyte complexes and uncovertebral and facet hypertrophy resulting in mild multilevel central and moderate multilevel neural foraminal stenosis. Soft Tissues: No prevertebral or subcutaneous hematoma. Partially visualized left chest wall pacemaker device. Partially visualized coil embolization of the basilar tip. CT/Spine Cervical without Contras IMPRESSION: NO ACUTE CERVICAL FRACTURE. DEGENERATIVE CHANGES. Reading Location: [id number]
--- NOTE | 2025-01-13 15:01 | CT_ITS ---
PROCEDURE: BRAIN/HEAD WITHOUT CONTRAST 01/13/2025 REASON FOR EXAM: HEAD INJURY TECHNIQUE: Head CT without intravenous contrast. Coronal and Sagittal reconstruction series were provided. One or more dose reduction techniques were used (e.g., Automated exposure control, adjustment of the mA and/or kV according to patient size, use of iterative reconstruction technique. RADIATION DOSE SUMMARY: CTDlvol: 47.06 mGy DLP: 890.33 mGycm COMPARISON: None FINDINGS: Brain: Low density in the periventricular white matter suggests mild chronic small vessel ischemic changes. Evidence of prior aneurysmal clipping in the region of the [id number] as well as the basilar tip. This causes beam hardening artifact. Old bilateral cortical infarcts. CSF Spaces: Moderate generalized cerebral atrophy Sinuses/Mastoids: Unremarkable Bones: Unremarkable CT/Brain/Head without Contrast IMPRESSION: CHRONIC CHANGES. NO ACUTE FINDINGS. Prior aneurysmal clipping in the region of the [id number] as well as the basilar tip. Reading Location: [place] [id number]
--- NOTE | 2025-01-13 16:57 | EDS_ITS ---
HPI History of Present Illness Chief Complaint: Fall Informant: patient Narrative Narrative: Patient is a 59-year-old female with history of stroke, brain aneurysm, bipolar disorder, COPD, schizophrenia, nonischemic cardiomyopathy and dysphagia associated with a prior stroke presenting for evaluation after fall. Patient is chronically anticoagulated on Eliquis. She states this morning she went to turn of events in the kitchen lost her balance and fell backwards hitting the back of her head against a door handle. She denies any associated loss of conscious. Afterward she did have an episode of vomiting and chest pain. She notes since then she has had intermittent nausea and headache. She did take Tylenol for her headache around 10 AM. Her family wanted her to come in. Patient does note that she recently was started on gabapentin for peripheral ne uropathy. She states since then she has had more gait and balance issues and stopped taking it last week. She was then started on amitriptyline for her neuropathy. She does not feel like her imbalance is getting any better. She is plan on stopping her amitriptyline as well. She states she follows with her primary care doctor closely. She has no other complaints or concerns at this time. 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 anticoagulants Schizophrenia Anxiety Former smoker Stroke/cerebrovascular accident Non-ischemic cardiomyopathy 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 classified elsewhere Sick sinus syndrome Asthma Dysphagia as late effect of cerebrovascular accident (CVA) CVA (cerebral vascular accident) Home Medications ?Medication ?Instructions ?Recorded ?Last Taken ?Type cholecalciferol (vitamin D3) 125 125 mcg PO DAILY supp lement 12/14/21 02/16/22 History mcg (5,000 unit) capsule rosuvastatin 5 mg tablet 5 mg PO QHS CHOLESTEROL 12/0502/10/22 History acetaminophen 500 mg tablet 500 mg PO Q6H PRN pain/fev er 02/16/22 Unknown History amlodipine 10 mg tablet 10 mg PO DAILY HTN 02/16/22 02/16/22 History ferrous sulfate 325 mg (65 mg 325 mg PO BID 10/14/22 U nknown History iron) tablet ascorbate calcium (vitamin C) 500 500 mg PO QDAY 06/05 Unknown History mg tablet furosemide 40 mg tablet (Lasix) 40 mg PO QDAY #90 tabs 06/05/24 Unknown Rx pantoprazole 20 mg tablet,delayed 20 mg PO QDAY Unknown History release potassium chloride 20 mEq 20 meq PO QDAY K+ was low on the 06/14/24 Unknown Rx tablet,extended release 595 KCL #30 tabs apixaban 5 mg tablet (Eliquis) 5 mg PO BID #60 tabs Unknown Rx ondansetron 4 mg disintegrating 4 mg PO Q8H PRN nausea and 01/13/25 Unknown Rx tablet vomiting #10 tabs Allergy/AdvReac Type Severity Reaction Status Date / Time amoxicillin (Amoxicillin) Allergy Hives Verified 01/13/25 13:42 latex Allergy Rash Verified 01/13/25 13:42 lisinopril Allergy Unknown Verified 01/13/25 13:42 Penicillins Allergy Hives Verified 01/13/25 13:42 venom-honey bee (bee venom Allergy Swelling Verified 01/13/25 13:42 (honey bee)) ciprofloxacin (From Cipro) AdvReac Nausea/Vom/ Verified 01/13/25 13:42 Diarrhea Surgical History History of partial colectomy History of Presence of cardiac pacemaker (09/21/20) History of mitral valve replacement with bioprosthetic valve (07/23/09) Social History household members: children housing: apartment current occupational status: unemployed Smoking Status: Current every day smoker tobacco type: e-cigarettes second hand exposure: Yes alcohol intake: current alcohol intake frequency: holidays/special occasions only details: RARELY substance use type: does not use caffeine: Yes Type: carbonated beverages Number of servings: 1 what type of physical activity do you participate in: none seatbelt use: always ROS ROS ED Constitutional Constitutional ED: Denies chills or fever(s) ENT ENT ED: Reports other Details: Speech issues status post stroke Cardiovascular Cardiovascular: Reports chest pain Respiratory/Chest Respiratory/Chest: Reports dyspnea; Denies cough Gastrointestinal Gastrointestinal: Reports nausea and vomiting Musculoskeletal Musculoskeletal: Denies arthralgias or myalgias Neurologic Neurologic: Reports headache(s) and weakness; Denies paresthesias Hematologic/Lymphatic Hematologic/Lymphatic: Reports easy bleeding, easy bruising and other Details: On Eliquis EXAM Physical Exam Const Vital Signs: 01/13/25 13:42 01/13/25 16:27 Temperature 97.6 F L Temperature Source Temporal Pulse Rate 92 Respiratory Rate 18 Respiratory Effort Normal Non-Labored Respiratory Depth Normal Respiratory Pattern Normal Blood Pressure 108/95 H Blood Pressure Mean 99 Pulse Ox 95 Oxygen Delivery Method Room Air Positive well nourished and well developed General Appearance ED: well developed and NAD HEENT Reports TM's clear HEENT Narrative: No signs of a basilar skull fracture. No cephalhematoma appreciated. Mild tenderness palpation of the left occipital scalp atraumatic Tympanic Membrane ED: Yes TM's clear Neck full ROM General: Negative for tenderness Chest Wall inspection of chest normal and palpation of chest normal Resp normal respiratory effort and clear to auscultation bilaterally Cardio regular rhythm Rate: regular rate GI non-tender and non-distended Back/Spine normal to inspection and no thoracic nor lumbar tenderness Extremity normal to inspection and full ROM Neuro oriented x3 Neuro Narrative: Slightly stuttering speech but able to speak clearly and to understand. Moving all extremities. No focal weakness appreciated Sensorium / Orientation: alert Psych mental status grossly normal and thought process normal Skin no rashes or lesions noted and no wounds MDM MDM MDM Narrative Medical decision making narrative: Patient is evaluated for what sounds like a mechanical fall. She states she has had balance issues since her stroke and then since being on gabapentin. Protocol CT of the brain and cervical spine was obtained as patient is on Eliquis and hit the back of her head earlier today. On imaging negative for any acute traumatic process. Given her gait instability, episode of chest pain and vomiting as well as ongoing nausea since the fall I did offer metabolic workup looking for electrolyte abnormality, urinary tract infection, ACS or other acute process that could be contributing to her fall today. Patient declined states she needs to get home. She she did really want to come to the ER in the first place but her family had insisted from a traumatic standpoint. She is encouraged to return to the emergency room if she changes her mind would like further metabolic/cardiac workup. Tells me she could have some postconcussive symptoms. Will send in a prescription for Zofran. Patient encouraged to follow-up closely with her primary care doctor outpatient. She verbalized understand this. At this time patient is acting appropriate has capacity to make this decision. Radiography Diagnostic Testing: Clinical Impression(s) from Imaging Studies Brain CT 01/13/25 15:01 IMPRESSION: CHRONIC CHANGES. NO ACUTE FINDINGS. Prior aneurysmal clipping in the region of the [id number] as well as the basilar tip. Reading Location: [facility] 01/13/25 15:01 IMPRESSION: NO ACUTE CERVICAL FRACTURE. DEGENERATIVE CHANGES. 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 administrator (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 anticoagulants, Closed head injury Instructions: ED Fall with Uncertain Cause, ED Head Injury (Adult) Prescriptions: New ondansetron 4 mg tablet,disintegrating 4 mg PO Q8H PRN (Reason: nausea and vomiting) Qty: 10 0RF No Action ferrous sulfate 325 mg (65 mg iron) tablet 325 mg PO BID pantoprazole 20 mg tablet,delayed release (DR/EC) 20 mg PO QDAY ascorbate calcium (vitamin C) 500 mg tablet 500 mg PO QDAY furosemide [Lasix] 40 mg tablet 40 mg PO QDAY Qty: 90 3RF cholecalciferol (vitamin D3) 125 mcg (5,000 unit) Capsule 125 mcg PO DAILY rosuvastatin 5 mg tablet 5 mg PO QHS acetaminophen 500 mg Tablet 500 mg PO Q6H PRN (Reason: pain/fever) amlodipine 10 mg Tablet 10 mg PO DAILY potassium chloride 20 mEq tablet extended release 20 meq PO QDAY Qty: 30 11RF Eliquis 5 mg tablet 5 mg PO BID Qty: 60 11RF Primary Care Provider: Louis Dobbs Referrals: Louis Dobbs MD [Primary Care Provider] - Activity Restrictions/Additional Instructions: Thankfully your CT of the brain and cervical spine did not show any acute traumatic injury or bleeding associate with your fall today. The cause of your fall and your worsening balance is not highly clear. We did offer further workup including EKG, chest x-ray lab work and urinalysis today but at this time you decided that you would rather follow-up with your family doctor. If it anytime you feel acute worsening or would like further workup please return to the emergency room. Print Language: Chinese Disposition Disposition: Home, Self Care
[2025-01-13 17:01] VITALS: BP 140/81; PULSE 58; RESP 18; TEMP 36.4; O2SAT 97
[2025-01-13 17:02] VITALS: BP 140/81
== END 2025-01-13 17:13 | disposition home or self-care (01) ==
PROVIDERS: Emergency Provider Emergency Medicine; PCP Internal Medicine; Visit Provider Emergency Medicine
DX: S09.90XA Unspecified injury of head, initial encounter (principal); I69.359 Hemiplegia and hemiparesis following cerebral infarction affecting unspecified side; J44.9 Chronic obstructive pulmonary disease, unspecified; N18.9 Chronic kidney disease, unspecified; G62.9 Polyneuropathy, unspecified; Z79.01 Long term (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 anticoagulants; W18.39XA Other fall on same level, initial encounter; Y92.89 Other specified places as the place of occurrence of the external cause; Z79.899 Other long term (current) drug therapy; Z90.49 Acquired absence of other specified parts of digestive tract; Z95.0 Presence of cardiac pacemaker; Z95.3 Presence of xenogenic heart valve; F17.290 Nicotine dependence, other tobacco product, uncomplicated
CPT/HCPCS: 70450; 72125; 99282

== ENCOUNTER → 2025-02-13 | Outpatient (CLI) | payer MEDICARE, MEDICAID, SELFPAY ==
[2025-02-13 14:43] LABS: Anion Gap 11 (5-15); BUN 14 mg/dL (4-19); BUN/Creat Ratio 12.3 RATIO (10-20); Calcium,Total 9.8 mg/dL (7.6-11.0); Carbon Dioxide 26.8 mmol/L (21.0-32.0); Chloride 101 mmol/L (98-108); Glucose 93 mg/dL (70-99); Potassium 4.3 mmol/L (3.3-5.1)
== END | disposition home or self-care (01) ==
PROVIDERS: Nurse Practitioner Family; PCP Internal Medicine; Referring Provider Physician Assistant Medical; Visit Provider Physician Assistant Medical
DX: E87.6 Hypokalemia (principal)
CPT/HCPCS: 36415; 80048

== ENCOUNTER 2025-02-27 12:51 | Outpatient (RCR) | payer MEDICARE, MEDICAID, SELFPAY ==
--- NOTE | 2025-02-27 16:12 | HP.FCE ---
Task Lift Floor (Occasional 1-33% of Day): 20 Floor (Frequent 34-66% of Day): 10 Floor (Constant 67-100% of Day): 4.2 Floor PDL: Light Knee (Occasional 1-33% of Day): 20 Knee (Frequent 34-66% of Day): 10 Knee (Constant 67-100% of Day): 4.2 Knee PDL: Light Waist (Occasional 1-33% of Day): 20 Waist (Frequent 34-66% of Day): 10 Waist (Constant 67-100% of Day): 4.2 Waist PDL: Light Shoulder (Occasional 1-33% of Day): 15 Shoulder (Frequent 34-66% of Day): 7.5 Shoulder (Constant 67-100% of Day): 3.1 Shoulder PDL: Sedentary-Light Overhead (Occasional 1-33% of Day): 0 Overhead (Frequent 34-66% of Day): 0 Overhead (Constant 67-100% of Day): 0 Overhead PDL: No Ability Comments: pt scores as light in floor, knee and waist lift; sedentary light in shoulder lift and unable to do overhead lift Work Activity/Posture Bending: Occasional Ability (1-33% of day) Squatting: Occasional Ability (1-33% of day) Kneeling: No Ablility (0% of day) Reaching out: Frequent Ability (34-66% of day) Reaching up: Occasional Ability (1-33% of day) Sitting: Constant Ability (67-100% of day) Walking: Occasional Ability (1-33% of day) Standing: Occasional Ability (1-33% of day) Reference Reference: Duration Sedentary Sedentary Light Light Light Medium Medium Medium Heavy Very Heavy Heavy Occasional (0-33% of day) Frequent (34-66% of day) Constant (67-100% of day) 10 # Negligible Negligible 15 # 8 # Negligible 20 # 10# Negli. 35 # 18 # 7 # 50 # 25 # 10 # 75 # 100 # >100 # 38 # 50 # >50 # 15 # 20 # >20 # Patient Information Height: 5 ft 3 in Weight:: 85.729 kg Hand Dominance: i dont know Medical History Medical History Including Restrictions: This 59 year old female arrives with dx of abnormality of gait late effect of stroke hemiparesis due to cerebrovascular accident. Brain aneurysm. Impaired mobility as well as frequent falls. Pt initial stroke November 05 2008 in which she reports they also had to place a pacemaker due to heart attack. Pt states she has had approx 13 TIAs leading up to major stroke. Pt now takes blood thinner medication. Pt states she has had x2 brain aneurysms. pt does report she had therapy after stroke as well as aneurysms however continues to have balance deficits. pt reports having x4 falls in the past year due to instability as well as nueropathy of BLEs causing pain in feet. Diagnoses Diagnoses: I69.398 abnormality of gait as late effect of stroke I69.359 hemiparesis due to old cerebrovascular accident I67.1 Brain aneurysm Z74.09 imapired mobility and ADLs R29.6 Frequent falls Z 13.9 Encounter for risk and functional assessment Symptoms Symptoms: difficulty walking and impaired balance causing increased risk for falls slurred speech at times delayed reaction time and motor control neuropathy of B legs difficulty attending to task Pain Pain: neuropathy of B feet 5/10 sitting -- 10/10 when standing use to use gabapentin for pain however no longer taking states she only takes Tylenol at this time Sohail Pain Questionnaire Work History Work History: Pt worked at [employer] for 5 years however stopped once she had her stroke in 2008 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 apartment is handicap accessable. uses hospital bed at home. pt on base level and uses back door to get in and out which does not require stairs. Pt does have 7 steps to get out front door of complex however does not use these. Pt has aid that comes for 8 hours a day that assists with ADL and IADL tasks. pt uses a cane as means of mobility. Aid and or son will do the cooking at home. pt does not drive at this time. pt uses a shower seat for bathing tasks. pt does report attempting to perform laundry tasks and light cleaning Physical Examination Physical Examination: at rest sitting HR 92 bpm 02 97% ROM: B Upper Extremity WFL B Lower Extremity: WFL Strength: Upper Extremity: L shoulder flexion 7.3# R shoulder flexion 3.3# L bicep flexion 8.8# R bicep flexion 3.1# L ER: 3.3# R ER: 6.1# L tricep: 5.7# R tricep: 5.1# Lower Extremity: L hip flexion: 11.1# R hip flexion: 6.4# L quad: 7.8# R quad: 5.1# L hamstrin.4# R hamstrin Right Imagery Intelligence Strength Average: 5.00 Right Imagery Intelligence Strength Percentile: 0th percentile Left Imagery Intelligence Strength Average: 36.66 Left Imagery Intelligence Strength Percentile: 3rd percentile Right Lateral Pinch Average: 9.66 Right Lateral Pinch Percentile: 10th percentile Left Lateral Pinch Average: 9.33 Left Lateral Pinch Percentile: 25th percentile Right Tripod Pinch Average: 7.66 Right Tripod Pinch Percentile: 10th percentile Left Tripod Pinch Average: 8.66 Left Tripod Pinch Percentile: 25th percentile Comments: increased time to perform strength assessment due to need for demonstration and time to register task being asked Sensation: pt does report numbness eliza LF and RF of B hands L hand RF 3.22 LF 3.61 indicating diminished light touch R hand RF 3.61 LF 3.22 indicating diminished light touch pt reports she cant tell difference between hot and cold water neuropathy of feet Fine Motor: 9 hole peg assessment: L hand trial 1: 22 sec L hand trial 2: 22 sec L hand trial 3: 22 sec L hand average: 22 seconds indicating pt in 50th percentile R hand trial 1: 31 sec R hand trial 2: 33 sec R hand trial 3: 29 sec R hand average 31 seconds indicating pt in 0th percentile Balance: standing forward reach score 1 a score of 6 or less indicates pt is at significant increased risk for falls Non Material Handling Activities Bending: Bending: Trial of 3: 3/3 10x at own pace: 10/14 10x fast: 010 no support needed however increased time and instability Squatting: Squatting: Trial of 3: 3/3 10x at own pace: 08/16 10x fast: 010 uses unilateral support of desk Kneeling: Kneeling: does not need to perform at home per pt she has kneeled before however has had to call sons to get pt up off the floor Reaching out/up: Reaching out: Trial of 3: 3/3 10x at own pace: 05/16 10x fast: 05/16 complete in sitting difficulty with extending R arm out all the way HR 94 bpm 02 94% Reaching up: trial of 3: 3/3 10x at own pace: 4/10 10x fast: 0/10 complete in sitting pt stops at 10 and states thats it Walking: pt able to walk to aquatic pool and back with need for 6 standing static rest breaks pt walks 140 feet total before sitting uses cane to complete task occ self corrected LOB Standing: pt stand for approx 8 min duration during FCE before needing seated rest break pt states she could possible due 2 hours but would need 2 canes on both sides or rollator. Sitting: pt is able to sit for intake of FCE 40-50 min occ adjustment of positioning and swaying motion pt states she could sit for hours without needing to get up and re position self Climbing Stairs: pt does not complete stairs at home she is able to go through back door with does not require her to do stairs-- pt reports she needs her sons assistance to complete. Dynamic Occasional Lifting Capacity Floor Lift: Floor Lift: box (15#)+ 5#= 20# total HR 109 02 96% pain in feet 7/10 Knee Lift: Knee Lift: box (15#)+ 5#= 20# total HR 103 bpm 02 96% pain in feet 7/10 Waist Lift: Waist Lift: box (15#)+ 5#= 20# total HR 102 bpm 02 97% pain in feet 7/10 Shoulder Lift: Shoulder Lift: box (15#) unable to do additional weight 15# total foot pain 7/10 Overhead Lift: unable attempted had to set box back down unable to lift HR 103 bpm and 02 94% Carrying: box 15# no additional weight makes it to filing cabinet and longterm back then therapist needs to take box 39 feet total pain in feet 7/10 HR 114 bpm 09 95%
== END 2025-02-27 19:00 | disposition home or self-care (01) ==
LOC: OT 12:51
PROVIDERS: PCP Internal Medicine; Referring Provider Internal Medicine; Visit Provider Internal Medicine
DX: I69.398 Other sequelae of cerebral infarction (principal); R26.9 Unspecified abnormalities of gait and mobility; I69.359 Hemiplegia and hemiparesis following cerebral infarction affecting unspecified side; I67.1 Cerebral aneurysm, nonruptured; Z13.9 Encounter for screening, unspecified; Z74.09 Other reduced mobility; Z78.9 Other specified health status; R29.6 Repeated falls
CPT/HCPCS: 97750

== ENCOUNTER 2025-04-12 05:08 | Emergency (ER) | payer MEDICARE, MEDICAID, SELFPAY ==
[2025-04-12 05:08] VITALS: BP 141/94; PULSE 94; RESP 20; TEMP 36.9; O2SAT 94; BMI 34.2
--- NOTE | 2025-04-12 05:12 | EDS_ITS ---
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 Schizophrenia Anxiety Former smoker Stroke/cerebrovascular accident Non-ischemic cardiomyopathy 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 classified elsewhere Sick sinus syndrome Asthma Dysphagia as late effect of cerebrovascular accident (CVA) CVA (cerebral vascular accident) Home Medications ?Medication ?Instructions ?Recorded ?Last Taken ?Type cholecalciferol (vitamin D3) 125 125 mcg PO DAILY supp lement 12/14/21 02/16/22 History mcg (5,000 unit) capsule rosuvastatin 5 mg tablet 5 mg PO QHS CHOLESTEROL 12/0502/10/22 History acetaminophen 500 mg tablet 500 mg PO Q6H PRN pain/fev er 02/16/22 Unknown History amlodipine 10 mg tablet 10 mg PO DAILY HTN 02/16/22 02/16/22 History ferrous sulfate 325 mg (65 mg 325 mg PO BID 10/14/22 U nknown History iron) tablet ascorbate calcium (vitamin C) 500 500 mg PO QDAY 06/05 Unknown History mg tablet furosemide 40 mg tablet (Lasix) 40 mg PO QDAY #90 tabs 06/05/24 Unknown Rx pantoprazole 20 mg tablet,delayed 20 mg PO QDAY Unknown History release potassium chloride 20 mEq 20 meq PO QDAY K+ was low on the 06/14/24 Unknown Rx tablet,extended release 595 KCL #30 tabs apixaban 5 mg tablet (Eliquis) 5 mg PO BID #60 tabs Unknown Rx ondansetron 4 mg disintegrating 4 mg PO Q8H PRN nausea and 01/13/25 Unknown Rx tablet vomiting #10 tabs benzonatate 100 mg capsule 100 mg PO BID PRN cough 7 d ays #14 04/12/25 Unknown Rx caps doxycycline hyclate 100 mg capsule 100 mg PO BID 7 day s #14 caps 04/12/25 Unknown Rx Allergy/AdvReac Type Severity Reaction Status Date / Time amoxicillin (Amoxicillin) Allergy Hives Verified 04/12/25 05:09 latex Allergy Rash Verified 04/12/25 05:09 lisinopril Allergy Unknown Verified 04/12/25 05:09 Penicillins Allergy Hives Verified 04/12/25 05:09 venom-honey bee (bee venom Allergy Swelling Verified 04/12/25 05:09 (honey bee)) ciprofloxacin (From Cipro) AdvReac Nausea/Vom/ Verified 04/12/25 05:09 Diarrhea Surgical History History of partial colectomy History of Presence of cardiac pacemaker (09/21/20) History of mitral valve replacement with bioprosthetic valve (07/23/09) Social History household members: children housing: apartment current occupational status: unemployed Smoking Status: Current every day smoker tobacco type: e-cigarettes second hand exposure: Yes alcohol intake: current alcohol intake frequency: holidays/special occasions only details: RARELY substance use type: does not use caffeine: Yes Type: carbonated beverages Number of servings: 1 what type of physical activity do you participate in: none seatbelt use: always EXAM Physical Exam Const Vital Signs: 04/12/25 05:08 04/12/25 05:09 Temperature 98.4 F Temperature Source Oral Pulse Rate 94 Respiratory Rate 20 H Respiratory Effort Normal Respiratory Pattern Normal Blood Pressure 141/94 H Blood Pressure Mean 109 Pulse Ox 94 MDM MDM MDM Narrative Medical decision making narrative: HISTORY OF PRESENT ILLNESS: Chief complaint: Cough/cold 59-year-old female history of bipolar disorder, anxiety, hypertension, brain aneurysm, nonischemic colopathy, sick sinus syndrome status post pacemaker, CVA presents with concern for cough/cold. She notes facial pressure specifically the left. She states she has had 1 week of thick yellow discharge from her nose as well as a cough. Denies chest pain or shortness of breath. Denies sore throat or sick contacts. REVIEW OF SYSTEMS: Pertinent positives: Head congestion, sinus congestion Pertinent negatives: Sore throat, sick contacts, fever, shortness of breath or chest pain. PHYSICAL EXAM: Nursing triage notes reviewed, Vital signs reviewed Constitutional: please see mdm HENT: MMM, TTP over maxillary sinus on the left. No obvious exudates noted to posterior oropharynx, uvula midline, no submandibular edema. No trismus. Eyes: Pupils equal round and reactive to light, Extraocular muscles intact Neck: No stridor, no JVD, full neck ROM Lungs: Clear to auscultation, No wheezing or rales. No increased work of breathing, no conversational dyspnea, no accessory muscle use, no nasal flaring. No respiratory distress noted Heart: Regular rate and rhythm, No murmurs, No rubs and No gallops, 2+ distal pulses (radial, femoral, posterior tibial) in all extremities Neuro: Alert and oriented x3, neuro exam at baseline, cranial nerves II through XII are intact. No pain with extraocular muscle movement. There is negative test of skew. 5 of 5 strength in upper and lower extremities in flexion extension. Intact sensation to light touch in upper and lower extremity dermatomes. No truncal or extremity ataxia. No dysdiadochokinesia. Normal gait. 2+ reflexes in upper and lower extremities. No meningeal signs. Negative Babinski. NIH of 0. MEDICAL DECISION MAKING: Chief Complaint: please see HPI External records reviewed: Reviewed prior ED visit Factors affecting care: as per HPI Social determinants of health: History mental health disorder History obtained from others: EMS Consults: none [facility] Narrative: Patient was initially hemodynamically stable, afebrile and nontoxic-appearing. Exam without focal cardiopulmonary abnormalities. Exam most consistent with likely sinusitis. Will prescribe doxycycline for empiric antimicrobial therapy. The patient and/or family, caregivers express understanding. The patient and/or family, caregivers agrees with the plan. Shared decision making: I will have a discussion with the patient and or visitors regarding risk/benefits of further testing or admission. They will be made aware of of the risk/benefits inherent in this decision they will be given the opportunity to voice understanding. Total critical care time today provided was at least 0 minutes. This excludes separately billable procedures. Critical care time (if documented) is secondary to the patient having high probability of clinically significant/life threateni ng deterioration in the patient's condition which required my urgent intervention. Impression: 1. Acute bacterial sinusitis 2. Cough Dispo: Discharge home This note was generated with [employer] dictation software. It may contain incorrect words, spelling, and punctuation that were not noted in review of the chart prior to signing. Discharge Plan Triage Chief Complaint: Cold Sx ED Provider: Dane Joseph Dx/Rx/DC Orders Clinical Impression: Acute bacterial sinusitis Instructions: ED Sinusitis (Antibiotic Treatment) Prescriptions: New doxycycline hyclate 100 mg capsule 100 mg PO BID 7 Days Qty: 14 0RF benzonatate 100 mg capsule 100 mg PO BID PRN (Reason: cough) 7 Days Qty: 14 0RF No Action ferrous sulfate 325 mg (65 mg iron) tablet 325 mg PO BID pantoprazole 20 mg tablet,delayed release (DR/EC) 20 mg PO QDAY ascorbate calcium (vitamin C) 500 mg tablet 500 mg PO QDAY furosemide [Lasix] 40 mg tablet 40 mg PO QDAY Qty: 90 3RF cholecalciferol (vitamin D3) 125 mcg (5,000 unit) Capsule 125 mcg PO DAILY rosuvastatin 5 mg tablet 5 mg PO QHS acetaminophen 500 mg Tablet 500 mg PO Q6H PRN (Reason: pain/fever) amlodipine 10 mg Tablet 10 mg PO DAILY ondansetron 4 mg tablet,disintegrating 4 mg PO Q8H PRN (Reason: nausea and vomiting) Qty: 10 0RF potassium chloride 20 mEq tablet extended release 20 meq PO QDAY Qty: 30 11RF Eliquis 5 mg tablet 5 mg PO BID Qty: 60 11RF Primary Care Provider: Louis Dobbs Referrals: Louis Dobbs MD [Primary Care Provider] - Activity Restrictions/Additional Instructions: Thank you for trusting us with your care today! Please take Tylenol (2 pills, 650 mg), ibuprofen (2 pills, 400 mg) every 6 hours as needed for pain and fever control. Please take antibiotics until course complete. Please take Tessalon Perles as needed for cough suppression. Please return to the emergency department if your symptoms change or worsen. Please follow with your primary care physician for further outpatient evaluation and management. Print Language: Thai Disposition Disposition: Home, Self Care
[2025-04-12 05:38] VITALS: BP 122/76; PULSE 89; RESP 18; TEMP 37.1; O2SAT 94
--- OUTSIDE RECORDS SUMMARY | 2025-04-12 05:43 | XMS RPT_ITS | CCD ---
Author Organization [facility] Care Team Providers Care Licensed Aircraft Maintenance Engineer Name Role Phone Katey Lobo Unavailable Marley Hackett Unavailable Marley Hackett Unavailable Louis Dobbs MD Primary Care Provider Lee Carrizales Unavailable Malik Reis (Hist) Unavailable Dr. Louis Dobbs Primary Care Provider Dr. Javed Smith Attending Provider Dr. Javed Smith Referring Provider Dr. Louis Dobbs Referring Provider GONZÁLEZ Quintero Attending Provider Bernie Wallace Attending Provider Unavailable Dr. Louis Dobbs Primary Care Provider Dr. Louis Dobbs Primary Care Provider Dr. Javed Smith Attending Provider Dr. Javed Smith Referring Provider Dr. Louis Dobbs Referring Provider GONZÁLEZ Quintero Attending Provider Dr. Sonu Richard Emergency Provider Dr. Danae Arellano Admit Provider Dr. Danae Arellano Attending Provider Dr. Danae Arellano Other Provider Dr. Juan Delgado Attending Provider Unavailable Danny, Dr. Martinez Other Provider Unavailable Dr. Jamia Hu Emergency Provider Dr. Juan Delgado Admit Provider Unavailable Dr. Louis Dobbs Primary Care Provider Dr. Juan Delgado Referring Provider Unavailable Dr. Eloy Hauser Other Provider Dr. Vu Gross Attending Provider Dr. Vu Gross Other Provider Mable GRAPHICS MANAGER, GRAPHICS MANAGER-C Michelle Other Provider Dr. Gloria Frazier Attending Provider Karin, Dr. Gloria Carreno Other Provider Dr. Olegario Jimenez Attending Provider Dr. Olegario Jimenez Other Provider Louis Dobbs MD Primary Care Provider Lee Carrizales P Unavailable Malik Reis (Hist) Unavailable Dr. Louis Dobbs Primary Care Provider Dr. Juan Delgado Attending Provider Unavailable Dr. Juan Delgado Other Provider Unavailable Karin, Dr. Gloria Carreno Referring Provider Dr. Louis Dobbs Referring Provider Dr. John Adkins Attending Provider Dr. Javed Smith Attending Provider Dr. Louis Dobbs Attending Provider ERICK MIRZA Consulting Unavailable JOSETTE CHOUDHURY Attending Unavailable JOSETTE CHOUDHURY Admitting Unavailable Louis Dobbs MD Primary Care Provider Lee Carrizales P Unavailable Malik Reis (Hist) Unavailable Malik Reis Unavailable Dr. Louis Dobbs Primary Care Provider Dr. Louis Dobbs Referring Provider Dr. Javed Smith Attending Provider Sb CLAUDIO, PA Lucio Darling Attending Provider Bernie Wallace Attending Provider Unavailable Dr. Louis Dobbs Primary Care Provider Dr. Louis Dobbs Attending Provider Dr. Jonnathan Gama Attending Provider Lee Carrizales Unavailable Dr. Louis Dobbs Primary Care Provider Dr. Jonnathan Gama Attending Provider MD William Arie Emergency Provider Dr. Merna Scherer Admit Provider Dr. Merna Scherer Attending Provider Dr. Merna Scherer Other Provider Dr. Stephan Chery Attending Provider Dr. Stephan Chery Other Provider Lee Carrizales MD Unavailable Louis Dobbs MD Primary Care Provider Malik Reis MD Unavailable Joe HYBRID [email or web address].CONTRACT GRAPHIC DESIGNER, Judy M Unavailable Unavailable Primary Care Provider Unavailabl e HOMERO, SHAVON Referring Unavailable HOMERO, SHAVON Attending Unavailable HOMERO, SHAVON Referring Unavailable HOMERO, SHAVON Attending Unavailable Dr. Louis Dobbs MD Primary Care Provider Kyleigh Sethi Attending Provider Contreras Gray Attending Provider Contreras Gray Referring Provider Natan BAZAN, Dr. De Santiago Attending Provider Homero BAZAN, Dr. Sands Attending Provider Homero BAZAN, Dr. Sands Referring Provider Alan BAZAN, Dr. Myers Referring Provider Lucio Quintero Attending Provider Lucio Quintero Referring Provider Alan BAZAN, Dr. Myers Primary Care Provider Natan BAZAN, Dr. De Santiago Attending Provider Dr. Hermila Blue DO Emergency Provider Alan BAZAN, Dr. Myers Primary Care Provider Dr. Hermila Blue DO Attending Provider Alan BAZAN, Dr. Myers Referring Provider Bernie Wallace Attending Provider Unavailable Lucio Quintero Attending Provider [phone] Lucio Quintero Referring Provider [phone] Alan BAZAN, Dr. Myers Attending Provider ALAN, LOUIS Ibrahim Primary Care Unavailable ANGEL PICKETT Attending Unavailable SELF Referring Unavailable JUDY HAYWOOD Attending Unavailable ALAN, JOVI Primary Care Unavailable DOBBS, JOVI Primary Care Unavailable PICKETT, ANGEL Referring Unavailable DOBBS, JOVI Attending Unavailable DOBBS, JOVI Referring Unavailable DOBBS, JOVI Primary Care Unavailable JUDY HAYWOOD Attending Unavailable ALAN, JOVI Primary Care Unavailable JUDY HAYWOOD Referring Unavailable DOBBS, JOVI Primary Care Unavailable JOE, NAZ M Attending Unavailable DOBBS, JOVI Primary Care Unavailable JUDY HAYWOOD Referring Unavailable DOBBS, JOVI Primary Care Unavailable JUDY HAYWOOD Referring Unavailable DOBBS, JOVI Primary Care Unavailable Homero, Shavon Referring Unavailable Dobbs, Louis Primary Care Unavailable Homero, Shavon Attending Unavailable Hermila Blue Attending Unavailable Dobbs, Louis Primary Care Unavailable Dobbs, Louis Referring Unavailable Natan, Jonnathan Attending Unavailable Dobbs, Louis Primary Care Unavailable Homero, Shavon Attending Unavailable Homero, Shavon Referring Unavailable Dobbs, Louis Primary Care Unavailable Dobbs, Louis Primary Care Unavailable Lucio Quintero Referring Unavail able Lucio Quintero Attending Unavail able Homero, Shavon Referring Unavailable Dobbs, Louis Primary Care Unavailable Homero, Shavon Attending Unavailable Dobbs, Louis Referring Unavailable Dobbs, Louis Attending Unavailable Dobbs, Louis Primary Care Unavailable Dobbs, Louis Primary Care Unavailable Lucio Quintero Referring Unavail able Lucio Quintero Attending Unavail able Natan, Jonnathan Attending Unavailable Dobbs, Louis Primary Care Unavailable Natan, Monitor Attending Unavailable Dobbs, Louis Primary Care Unavailable Flaco GRAPHICS MANAGER, Kyleigh Referring Unavailable Kyleigh Sam NP Attending Unavailable Dobbs, Louis Primary Care Unavailable Alissa FRANCIS, Contreras Ibrahim Attending Unavailable Dobbs, Louis Primary Care Unavailable Alissa GRAPHICS MANAGER, Contreras Ibrahim Referring Unavailable Dobbs, Louis Referring Unavailable Homero, Shavon Attending Unavailable Dobbs, Louis Primary Care Unavailable Natan, Jonnathan Attending Unavailable Dobbs, Louis Primary Care Unavailable Dobbs, Louis Primary Care Unavailable Natan, Monitor Attending Unavailable Homero, Shavon Attending Unavailable Dobbs, Louis Primary Care Unavailable Flaco FRANCIS, Kyleigh Attending Unavailable Dobbs, Louis Primary Care Unavailable Homero, Shavon Attending Unavailable Homero, Shavon Consulting Unavailable Homero, Shavon Referring Unavailable Dobbs, Louis Primary Care Unavailable Natan, Monitor Attending Unavailable Dobbs, Louis Primary Care Unavailable Natan, Monitor Attending Unavailable Dobbs, Louis Primary Care Unavailable Dobbs, Louis Primary Care Unavailable Dobbs, Louis Referring Unavailable Lucio Quintero Attending Unavail able Allergies Allergy Classification Reported Allergen(s) Allergy Type Date of Onset Reaction(s) Facility Angiotensin Converting Enzyme (LUIZA) Inhibitors (1 source) Lisinopril Drug Allergy 12-20-19 07 [facility] Latex (1 source) Latex Substance Allergy 04-10-20 08 Rash, Swelling [facility] Penicillins (antibiotic) (2 sources) Amoxicillin Drug Allergy 07-19-20 16 [facility] Quinolones (antibiotic) (1 source) Ciprofloxacin Drug Allergy 12-20-19 07 Rash, Itching [facility] (2 sources) Latex rubber gloves drug allergy [facility] Work Phone: (2 sources) penicillin v drug allergy [facility] Work Phone: (20 sources) Amoxicillin; Translations: [AMOXICILLIN] Drug Allergy 10-24-19 19 [facility] (20 sources) Ciprofloxacin; Translations: [CIPROFLOXACIN] Drug Allergy 12-20-19 07 Rash, Itching [facility] Work Phone: (20 sources) Latex; Translations: [LATEX] Propensity to adverse reactions 04-10-20 08 Rash, Swelling [facility] Work Phone: (20 sources) Lisinopril; Translations: [LISINOPRIL] Drug Allergy 12-20-19 07 Unknown [facility] Work Phone: (20 sources) Penicillins; Translations: [PENICILLINS] Drug Allergy 07-19-20 16 [facility] Work Phone: (20 sources) Venom-Honey Bee; Translations: [VENOM-HONEY BEE] Drug Allergy 10-24-19 19 Swelling [facility] (20 sources) Penicillins Drug Allergy 07-19-20 16 [facility] Work Phone: (17 sources) Penicillins Allergy to substance 05-30-20 22 [facility] (1 source) Latex Propensity to adverse reactions to drug 04-10-20 08 Rash, Swelling [facility] (1 source) Lisinopril Propensity to adverse reactions to drug 12-20-19 07 [facility] (1 source) Penicillins Propensity to adverse reactions to drug 07-19-20 16 [facility] (15 sources) Penicillins Drug Allergy 07-19-20 16 [facility] Work Phone: (11 sources) gabapentin; Translations: [GABAPENTIN] Drug Allergy 01-08-20 Other: See Comments [facility] Work Phone: (1 source) Amoxicillin Drug Allergy 01-14-20 [facility] (1 source) Ciprofloxacin Drug Allergy 01-14-20 [facility] (1 source) Latex Drug allergy (disorder) 01-14-20 [facility] (1 source) Lisinopril Drug Allergy 01-14-20 [facility] (1 source) Penicillins Drug allergy (disorder) 01-14-20 [facility] (1 source) venom-honey bee Drug allergy (disorder) 01-14-20 [facility] Medications Current Medications Medication Drug Class(es) Dates Sig (Normalized) Sig (Original) acetaminophen 500 mg oral tablet (20 sources) Start: 02-16-2022 End: 10-18-2022 take 1 tablet by mouth every eight hours as needed acetaminophen (TYLENOL) 500 mg tablet Take 1 tablet by mouth three times daily as needed for pain. 60 tablet 10/18/2022 Active Start: 02-16-2022 take 1 tablet by malathi th every six hours as needed for pain Acetaminophen 500 mg Tablet Active 500 mg PO EVERY 6 HOURS as needed for pain/fever February 16, 2022 12:00am Comment on above: Take 1 tablet by malathi th three times daily as needed for pain. Take 500 mg by mouth three times daily. acetaminophen 325 mg / HYDROcodone bitartrate 5 mg oral tablet (20 sources) Opioid Agonist Start: 12-09-2024 End: 12-14-2024 take 1 tablet by mouth every eight hours as needed for pain HYDROcodone-acetami nophen (NORCO) 5-325 mg per tablet Indications: Bilateral lower extremity pain Take 1 tablet by mouth every 8 hours as needed for pain for up to 5 days. 15 tablet 12/09/2024 12/14/2024 Active Start: 02-19-2017 End: 12-18-2017 Hydrocodone-Acetaminophen 1 TABLET tablet Discontinued 1 - 2 {tbl} PO EVERY 4 HOURS NEEDED as needed for Pain 20 0 February 19, 2017 12:00am December 18, 2017 6:20pm Start: 02-19-2017 End: 12-18-2017 take 1 tablet by mouth every four hours as needed Hydrocodone-Acetaminophen Discontinued 1 - 2 TABLET PO EVERY 4 HOURS NEEDED February 18, 2017 11:00pm December 18, 2017 5:20pm amLODIPine 10 mg oral tablet (20 sources) Dihydropyridine Calcium Channel Lokesh Start: 06-08-2022 take 1 tablet by mouth once daily amLODIPine (NORVASC) 5 mg tablet Take 1 tablet by mouth once daily. 30 tablet 5 06/08/2022 Active Start: 02-16-2022 End: 03-24-2025 take 1 tablet by mouth once daily amLODIPine (NORVASC) 10 mg tablet Indications: Primary hypertension Take 1 tablet by mouth once daily. 30 tablet 5 03/24/2025 Active Start: 12-14-2021 take 10 mg by mouth once daily Amlodipine Active 10 MG PO DAILY December 14, 2021 4:48pm Start: 11-02-2021 End: 12-14-2021 take 1 tablet by mouth once daily Amlodipine 5 mg tablet Discontinued 5 mg PO DAILY 30 November 02, 2021 1:32pm December 14, 2021 4:48pm Start: 11-02-2021 End: 11-02-2021 take 5 mg by mouth once daily Amlodipine 10 mg tablet Discontinued 5 mg PO DAILY November 02, 2021 1:31pm November 02, 2021 1:32pm Start: 11-02-2021 End: 11-02-2021 take 5 mg by mouth once daily Amlodipine Discontinued 5 MG PO DAILY November 02, 2021 12:31pm November 02, 2021 12:32pm Start: 11-27-2020 End: 11-02-2021 take 1 tablet by mouth once daily Amlodipine 10 mg tablet Discontinued 10 mg PO DAILY November 27, 2020 12:00am November 02, 2021 1:32pm Comment on above: Take 1 tablet by malathi th once daily. apixaban 5 mg oral tablet (20 sources) Factor Xa Inhibitor Start: 11-14-2022 End: 08-29-2024 ELIQUIS 5 mg tab(s) Take 5 mg by mouth. 12/05/2022 Active Comment on above: Take 5 mg by mouth. 3.2 ml ARIPiprazole lauroxil 276 mg/ml prefilled syringe (20 sources) Start: 03-03-2021 Aripiprazole Lauroxil (Aristada) 882 mg/3.2 mL suspension,extended rel syring Active 882 MG IM EVERY MONTH March 03, 2021 4:24pm Start: 02-19-2021 ARIPiprazole l auroxil (ARISTADA) 882 mg/3.2 mL injection Inject 3.2 mL intramuscularly every 4 weeks. 0 02/19/2021 Active Comment on above: Inject 3.2 mL intram uscularly every 4 weeks. calcium ascorbate 500 mg oral tablet (7 sources) Start: 06-05-20 take 1 tablet by mouth once daily Ascorbate Calcium (Vitamin C) 500 mg tablet Active 500 mg PO daily June 05, 2024 12:00am cholecalciferol 0.125 mg oral capsule (20 sources) Vitamin D Start: 05-23-20 End: 03-24-20 take 1 capsule by mouth once daily Cholecalciferol, Vitamin D3, 125 mcg (5,000 unit) cap Take 1 capsule by mouth once daily. 30 capsule 5 03/24/2025 Active Start: 12-14-2021 [facility] Cholecalciferol (Vitamin D3) 125 mcg (5,000 unit) Capsule Active 125 ug PO DAILY December 14, 2021 12:00am supplement Start: 07-27-2021 End: 05-12-2023 take 1 capsule by mouth once daily Cholecalciferol, Vitamin D3, 125 mcg (5,000 unit) cap Take 1 capsule by mouth once daily. 30 capsule 0 04/17/2023 05/12/2023 Discontinued Comment on above: Take 1 capsule [facility] daily[facility] furosemide 40 mg oral tablet (20 sources) Loop Diuretic Start: 4 take 1 tablet by mouth once daily furosemide (LASIX) 40 mg tablet Take 40 mg by mouth once daily. 06/05/2024 Active hydrOXYzine pamoate 50 mg oral capsule (20 sources) Antihistamine Start: 2 take 1 capsule by mouth twice daily Hydroxyzine Pamoate (Vistaril) 50 mg capsule Active 50 MG PO TWICE A DAY May 30, 2022 12:00am Start: 11-10-2021 End: 10-14-2022 take 1 capsule by mouth three times daily Hydroxyzine Pamoate (Vistaril) 50 mg capsule Discontinued 50 mg PO THREE TIMES A DAY December 14, 2021 4:48pm October 14, 2022 11:04am BIPOLAR Comment on above: Take 50 mg by mouth three times daily. Nirmatrelvir-Ritonavir (Paxlovid (Eua)) 150-100 mg Tablets,Dose Pack (2 sources) Start: 02-17-20 take 3 tablets by mouth twice daily Nirmatrelvir-Ritona vir (Paxlovid (Eua)) 150-100 mg Tablets,Dose Pack Active 3 TABLET PO TWICE A DAY February 16, 2022 12:00am nystatin 100 unt/mg topical powder (20 sources) Polyene Antifungal Start: 06-07-20 End: 03-24-20 nystatin (MYCOSTATIN) powder Indications: Candidal intertrigo Apply 1 application to affected area four times a day as needed. 60 g 2 03/24/2025 Active Comment on above: Apply 1 application to affected area four times a day as needed. ondansetron 4 mg disintegrating oral tablet (20 sources) Serotonin-3 Receptor Antagonist Start: 01-14-20 take 1 tablet by mouth every eight hours as needed for nausea and vomiting Ondansetron 4 mg tablet,disintegrati ng Active 4 mg PO Q8H as needed for nausea and vomiting January 13, 2025 12:00am Start: 02-16-2022 End: 06-05-2024 take 1 tablet by mouth every six hours as needed for nausea Ondansetron 4 mg Tablet,Disintegrating Discontinued 4 mg PO EVERY 6 HOURS as needed for Nausea February 16, 2022 12:00am June 05, 2024 9:00am Start: 06-10-2019 End: 08-29-2019 take 1 tablet by mouth every eight hours as needed for nausea Ondansetron 4 MG tablet Discontinued 4 m g PO EVERY 8 HOURS NEEDED as needed for Nausea June 10, 2019 1:00am August 29, 2019 2:22pm 24 hr oxybutynin chloride 10 mg extended release oral tablet (8 sources) Cholinergic Muscarinic Antagonist Start: 02-14-2019 End: 10-19-2021 take 10 mg by mouth once daily Oxybutynin Chloride Active 10 MG PO DAILY February 14, 2019 11:11am Comment on above: TAKE 1 TABLET BY MALATHI TH DAILY pantoprazole 20 mg delayed release oral tablet (20 sources) Proton Pump Inhibitor Start: 05-23-2023 End: 03-24-2025 take 1 tablet by mouth once daily before breakfast pantoprazole DR (PROTONIX) 20 mg tablet Indications: Gastroesophageal reflux disease without esophagitis Take 1 tablet by mouth daily before breakfast. Take on empty stomach, 1/2 hr before meal. 30 tablet 5 03/24/2025 Active Start: 10-24-2022 End: 05-12-2023 take 1 tablet by mouth once daily before breakfast pantoprazole DR (PROTONIX) 20 mg tablet Indications: Gastroesophageal reflux disease without esophagitis Take 1 tablet by mouth daily before breakfast. Take on empty stomach, 1/2 hr before meal. 30 tablet 2 02/17/2023 05/12/2023 Discontinued Start: 02-23-2022 End: 06-05-2024 take 1 tablet by mouth twice daily Pantoprazole 40 mg tablet,delayed release (DR/EC) Discontinued 40 mg PO TWICE A DAY 112 56 0 February 23, 2022 12:00am June 05, 2024 9:01am Comment on above: Take 1 tablet by malathi th daily before breakfast. Take on empty stomach, 1/2 hr before meal. potassium chloride 20 meq extended release oral tablet (14 sources) Start: 06-14-2024 take 1 tablet by mouth once daily Potassium Chloride 20 mEq tablet extended release Active 20 meq PO daily 30 June 14, 2024 1:00am K+ was low on the 595 KCL Start: 06-05-2024 End: 06-06-2024 potassium chloride Discontin ued PO June 05, 2024 12:00am June 06, 2024 10:00am POTASSIUM-99 ORAL (20 sources) take 99 mg by mouth once daily POTASSIUM-99 ORAL Take 99 mg by mouth once daily. Active rosuvastatin calcium 5 mg oral tablet (20 sources) HMG-CoA Reductase Inhibitor Start: End: take 1 tablet by mouth once daily rosuvastatin (CRESTOR) 5 mg tablet Indications: Hyperlipidemia, unspecified hyperlipidemia type Take 1 tablet by mouth once daily. 30 tablet 5 03/24/2025 Active Comment on above: Take 1 tablet by malathi th once daily. Completed/Discontinued Medications Medication Drug Class(es) Dates Sig (Normalized) Sig (Original) acetaminophen 325 mg / oxyCODONE hydrochloride 5 mg oral tablet (20 sources) Opioid Agonist Start: 08-14-2016 End: 08-14-2016 Oxycodone-Acetamino phen 1 TABLET tablet Discontinued 1 - 2 {tbl} PO EVERY 4 HOURS NEEDED as needed for Pain August 14, 2016 1:00am August 14, 2016 10:30am Start: 08-14-2016 End: 08-14-2016 take 1 tablet by mouth every four hours as needed Oxycodone-Acetaminophen Discontinued 1 - 2 TABLET PO EVERY 4 HOURS NEEDED August 14, 2016 12:00am August 14, 2016 9:30am [id number] 200 actuat albuterol 0.09 mg/actuat metered dose inhaler (20 sources) beta2-Adrenergic Agonist Start: 06-09-2023 End: 06-17-2024 take 2 puff(s) by inhalation every six hours as needed for cough albuterol HFA (PROVENTIL HFA, VENTOLIN HFA) 90 mcg/actuation inhaler Indications: Asthma with COPD with exacerbation (HCC) Inhale 2 Puffs as instructed every 6 hours as needed (cough, wheezing). 18 g 1 06/09/2023 06/17/2024 Discontinued (Course of therapy completed) Start: 02-16-2022 End: 06-05-2024 Albuterol Sulfate 90 mcg/act uation Hfa Aerosol Inhaler Discontinued 0 .ROUTE .COMPLEX as needed for coughing and wheezing February 16, 2022 12:00am June 05, 2024 8:59am 2 puffs Start: 12-14-2021 take 2 puff(s) by in halation every six hours as needed Albuterol Active 180 MCG INHALATION EVERY 6 HOURS NEEDED December 14, 2021 4:32pm 2 puffs q6h prn Start: 06-16-2021 End: 12-06-2021 take 2 puff(s) by inhalation every six hours as needed for cough albuterol HFA (PROVENTIL HFA, VENTOLIN HFA) 90 mcg/actuation inhaler Indications: Asthma with COPD with exacerbation (HCC) Inhale 2 Puffs as instructed every 6 hours as needed (cough, wheezing). 18 g 5 12/06/2021 Active Comment on above: Inhale 2 Puffs as in structed every 6 hours as needed (cough, wheezing). amitriptyline hydrochloride 10 mg oral tablet (3 sources) Tricyclic Antidepressant Start: 01-08-20 End: 02-05-20 25 take 1 tablet by mouth once daily at bedtime amitriptyline (ELAVIL) 10 mg tablet Take 1 tablet by mouth daily at bedtime. 30 tablet 1 01/07/2025 02/04/2025 Discontinued (Side Effects) ARIPiprazole 2 mg oral tablet (20 sources) Atypical Antipsychotic Start: 10-25-19 End: 06-17-20 24 take 1 tablet by mouth once ARIPiprazole (ABILIFY) 2 mg tablet Take 1 tablet by mouth once daily. [facility] 10/24/2022 06/17/2024 Discontinued (Discontinued by Patient) Start: 06-08-2022 ARIPiprazole ( ABILIFY) 5 mg tablet Take 0.5 tablets by mouth twice daily. [facility] 0 06/08/2022 Active Start: 04-06-2022 End: 10-14-2022 take 2.5 mg by mouth once daily Aripiprazole (Abilify) 5 mg tablet Discontinued 2.5 mg PO DAILY 15 4 April 06, 2022 11:47am October 14, 2022 11:04am Start: 02-16-2022 End: 04-06-2022 take 2.5 mg by mouth twice daily Aripiprazole (Abilify) 5 mg Tablet Discontinued 2.5 mg PO TWICE A DAY February 16, 2022 12:00am April 06, 2022 11:47am MOOD Start: 02-19-2021 End: 10-19-2021 take 1 tablet by mouth once daily at bedtime ARIPiprazole (ABILIFY) 15 mg tablet Take 1 tablet by mouth daily at bedtime. 0 02/19/2021 10/19/2021 Discontinued Start: 01-27-2021 End: 03-03-2021 take 2.5 mg by mouth twice daily Aripiprazole (Abilify) 5 mg Tablet Discontinued 2.5 mg PO TWICE A DAY January 27, 2021 12:00am March 03, 2021 4:22pm mood Start: 09-14-2020 End: 11-27-2020 take 2.5 mg by mouth twice daily Aripiprazole 5 mg tablet Discontinued 2.5 mg PO TWICE A DAY September 14, 2020 1:00am November 27, 2020 9:11am mental health Start: 09-14-2020 End: 11-27-2020 take 2.5 mg by mouth twice daily Aripiprazole Discontinued 2.5 MG PO TWICE A DAY September 14, 2020 12:00am November 27, 2020 8:11am Start: 12-18-2017 End: 09-14-2020 take 5 mg by mouth once daily Aripiprazole 2 mg tablet Discontinued 5 mg PO daily December 18, 2017 6:19pm September 14, 2020 4:13pm Start: 12-18-2017 End: 09-14-2020 take 5 mg by mouth once daily Aripiprazole Discontinue d 5 MG PO daily December 18, 2017 5:19pm September 14, 2020 3:13pm Start: 02-23-2017 ABILIFY 5 MG T ABS ARIPIPRAZOLE [id number] Miraelmer Lobo Start: 06-18-2016 End: 12-18-2017 take 5 mg by mouth twice daily Aripiprazole 2 MG table t Discontinued 5 mg PO TWICE A DAY June 18, 2016 1:00am December 18, 2017 6:20pm Start: 06-18-2016 End: 12-18-2017 take 5 mg by mouth twice daily Aripiprazole Discontinu ed 5 MG PO TWICE A DAY June 18, 2016 12:00am December 18, 2017 5:20pm Comment on above: Take 1 tablet by malathi th daily at bedtime. Take 0.5 tablets by mouth twice daily. [facility] Take 1 tablet by malathi th once daily. [facility]. ascorbic acid 500 mg oral tablet (20 sources) Vitamin C Start: 11-03-19 End: 09-03-19 take 1 tablet by mouth twice daily ascorbic acid, vitamin C, (VITAMIN C) 500 mg tablet Take 1 tablet by mouth two times a day. 60 tablet 11 09/03/2024 03/24/2025 Discontinued (Clinical Decision) Comment on above: Take 1 tablet by malathi th twice daily. Take 1 tablet by malathi th two times a day. aspirin 81 mg delayed release oral tablet (20 sources) Platelet Aggregation Inhibitor, Nonsteroidal Anti-inflammatory Drug Start: 11-28-19 End: 10-15-19 Aspirin (Adult Low Dose Aspirin) 81 mg tablet,delayed release (DR/EC) Discontinued 81 mg PO DAILY November 27, 2020 12:00am October 14, 2022 11:04am BLOOD THINNER Comment on above: Take 1 tablet by malathi th once daily. azithromycin 250 mg oral tablet (10 sources) Macrolide Antimicrobial Start: 06-25-20 End: 07-24-20 take 1 tablet by mouth once daily Azithromycin 250 mg tablet Discontinued 250 mg PO DAILY 4 0 June 25, 2023 1:00am July 24, 2023 2:46pm benztropine mesylate 0.5 mg oral tablet (20 sources) Anticholinergic, Antihistamine Start: 04-06-20 End: 10-15-19 take 1 tablet by mouth once daily Benztropine 0.5 mg tablet Discontinued 0.5 mg PO DAILY 30 4 April 06, 2022 12:00am October 14, 2022 11:04am Start: 06-11-2016 End: 03-30-2020 take 1 mg by mouth twice daily Benztropine 2 MG tablet Discontinued 1 mg PO TWICE A DAY June 11, 2016 12:00am March 30, 2020 1:11pm Start: 06-11-2016 End: 03-30-2020 take 1 mg by mouth twice daily Benztropine Discontinue d 1 MG PO TWICE A DAY June 10, 2016 11:00pm March 30, 2020 12:11pm 12 hr buPROPion hydrochloride 150 mg extended release oral tablet (20 sources) Aminoketone Start: 12-18-2017 End: 06-25-2018 take 1 tablet by mouth once daily Bupropion Hcl (Wellbutrin Sr) 150 mg tablet extended release 12 hr Discontinued 150 mg PO daily December 18, 2017 12:00am June 25, 2018 10:52am cephalexin 500 mg oral capsule (20 sources) Cephalosporin Antibacterial Start: 06-10-2019 End: 03-30-2020 take 1 capsule by mouth every six hours Cephalexin 500 MG capsule Discontinued 500 mg PO EVERY 6 HOURS 40 0 June 10, 2019 1:00am March 30, 2020 1:11pm citalopram 10 mg oral tablet (20 sources) Serotonin Reuptake Inhibitor Start: 04-09-2021 End: 10-14-2022 take 1 tablet by mouth once daily Citalopram (Celexa) 10 mg tablet Discontinued 10 mg PO DAILY April 09, 2021 12:00am October 14, 2022 11:04am DEPRESSION Start: 07-26-2016 End: 03-03-2021 take 1 tablet by mouth once daily Citalopram 10 MG tablet Discontinued 10 mg PO DAILY July 26, 2016 1:00am March 03, 2021 4:22pm depression Comment on above: Take 10 mg by mouth once daily. Take 1 tablet by malathi th once daily[facility] clonazePAM 0.5 mg oral tablet (20 sources) Benzodiazepine Start: 10-25-19 End: 05-23-20 take 1 tablet by mouth once daily at bedtime clonazePAM (KLONOPIN) 0.5 mg tablet Take 1 tablet by mouth daily at bedtime. [facility]. 0 10/24/2022 05/23/2023 Discontinued (Discontinued by another Health Care Provider) Start: 10-14-2022 End: 06-05-2024 take 1 tablet by mouth once daily Clonazepam 0.25 mg tablet,disintegrating Discontinued 0.25 mg PO DAILY October 14, 2022 1:00am June 05, 2024 8:59am Comment on above: Take 1 tablet by malathi th daily at bedtime. [facility]. clopidogrel 75 mg oral tablet (20 sources) [id number] Platelet Inhibitor Start: 1 End: 2 take 1 tablet by mouth once daily Clopidogrel (Plavix) 75 mg tablet Discontinued 75 mg PO DAILY November 27, 2020 12:00am February 23, 2022 2:11pm BLOOD THINNER Comment on above: Take 1 tablet by malathi th once daily. clotrimazole 10 mg/ml topical cream (20 sources) Azole Antifungal Start: 9 End: 9 Clotrimazole 12 GM cream Discontinued 24 g TP THREE TIMES A DAY 1 October 23, 2018 12:00am February 14, 2019 11:12am Start: 10-23-2018 End: 02-14-2019 Clotrimazole Discontinued 24 GM TP THREE TIMES A DAY October 22, 2018 11:00pm February 14, 2019 10:12am docusate sodium 100 mg oral capsule (20 sources) Start: 10-02-2021 End: 06-05-2024 take 1 capsule by mouth twice daily Docusate Sodium 100 mg Capsule Discontinued 100 mg PO TWICE A DAY December 14, 2021 12:00am June 05, 2024 9:00am CONSTPATION Comment on above: Take 1 capsule by mo [facility] twice daily. For constipation. doxycycline monohydrate 100 mg oral capsule (20 sources) Tetracycline-cl ass Drug Start: 10-23-2018 End: 02-14-2019 take 1 capsule by mouth twice daily Doxycycline Monohydrate 100 MG capsule Discontinued 100 mg PO TWICE A DAY 14 0 October 23, 2018 12:00am February 14, 2019 11:12am estrogens, conjugated (skilled nursing) 0.625 mg/ml vaginal cream (20 sources) Estrogen Start: 02-14-2019 End: 03-30-2020 Conjugated Estrogens 0.625 mg/gram cream Discontinued 0.3125 mg VAGINAL TWICE A WEEK February 14, 2019 12:00am March 30, 2020 1:11pm ferrous sulfate 325 mg oral tablet (20 sources) Start: 05-23-2023 End: 03-24-2025 take 1 tablet by mouth twice daily at mealtime ferrous sulfate 325 mg (65 mg iron) tablet Take 1 tablet by mouth two times a day with meals. 60 tablet 5 10/30/2024 03/24/2025 Discontinued (Clinical Decision) Start: 10-24-2022 End: 05-12-2023 take 1 tablet by mouth twice daily at mealtime ferrous sulfate 325 mg (65 mg iron) tablet Take 1 tablet by mouth twice daily with meals. 60 tablet 2 02/17/2023 05/12/2023 Discontinued Start: 10-14-2022 take 1 tablet by malathi th twice daily Ferrous Sulfate 325 mg (65 mg iron) tablet Active 325 mg PO TWICE A DAY October 14, 2022 1:00am Comment on above: Take 1 tablet by malathi th twice daily with meals. Take 1 tablet by malathi th two times a day with meals. gabapentin 100 mg oral capsule (2 sources) Anti-epileptic Agent Start: 12-14-19 End: 01-13-20 take 1 capsule by mouth once daily gabapentin (NEURONTIN) 100 mg capsule Take 1 capsule by mouth once daily for 30 days. 30 capsule 12/13/2024 01/07/2025 Discontinued (Discontinued by Patient) iohexol (OMNIPAQUE) 350 MG/ML injection 1-171 mL (1 source) Start: 09-26-19 End: 09-26-19 1-171 mL, Intravenous, ONCE, 1 dose, On Evelin 09/26/24 at 1200, Extravasation Risk, CT Procedure LORazepam 0.5 mg oral tablet (20 sources) Benzodiazepine Start: 02-17-20 End: 10-15-19 take 1 tablet by mouth three times daily Lorazepam (Ativan) 0.5 mg Tablet Discontinued 0.5 mg PO THREE TIMES A DAY February 16, 2022 12:00am October 14, 2022 11:04am ANXIETY Start: 10-19-2021 End: 01-17-2022 take 0.5 mg by mouth every twelve hours as needed for anxiety and anxiety LORazepam (ATIVAN) 0.5 mg Indications: Anxiety Take 1 tablet by mouth twice daily as needed (anxiety) for up to 90 days. 30 tablet 0 10/19/2021 01/17/2022 Active Comment on above: Take 1 tablet by malathi twice daily as needed (anxiety) for up to 90 days. mecobalamin (14 sources) Start: 10-14-2022 End: 06-05-2024 Mecobalamin (Vitamin B12) 500 mcg tablet,chewable Discontinued ug PO DAILY October 14, 2022 1:00am June 05, 2024 9:00am Start: 10-14-2022 take 1 ug by mouth once daily Mecobalamin (Vitamin B12) Active MCG PO DAILY October 14, 2022 12:00am Start: 10-14-2022 take 1 ug by mouth once daily Mecobalamin (Vitamin B12) Active MCG PO DAILY October 14, 2022 1:00am metoprolol tartrate 50 mg oral tablet (7 sources) beta-Adrenergic Lokesh Start: 06-25-2024 End: 10-11-2024 take 2 tablets by mouth every hour Metoprolol Tartrate 50 mg tablet Discontinued 50 mg PO daily 2 0 June 25, 2024 1:00am October 11, 2024 10:23am Please take 2 tablets one hour prior to your coronary angio CT mirtazapine 7.5 mg oral tablet (20 sources) Start: 10-24-2022 End: 06-17-2024 take 1 tablet by mouth once daily at bedtime Mirtazapine (REMERON) 7.5 mg tablet Take 1 tablet by mouth daily at bedtime. [facility]. 10/24/2022 06/17/2024 Discontinued (Discontinued by Patient) Start: 02-19-2021 End: 06-05-2024 take 1 tablet by mouth at bedtime Mirtazapine (Remeron) 30 mg tablet Discontinued 30 mg PO AT BEDTIME March 03, 2021 12:00am June 05, 2024 9:00am Check with primary doctor Comment on above: Take 1 tablet by malathi th daily at bedtime. Take 1 tablet by malathi th daily at bedtime. [facility]. 24 hr nicotine 0.875 mg/hr transdermal system (20 sources) Cholinergic Nicotinic Agonist Start: 10-10-19 End: 11-09-19 21 apply 21 mg transdermal route once daily Nicotine 21 MG patch Discontinued 21 mg TD DAILY October 09, 2020 1:00am November 07, 2020 12:00am November 08, 2020 12:03am Nirmatrelvir-Ritona vir (17 sources) Start: 02-17-20 End: 10-15-19 23 Nirmatrelvir-Ritonav ir (Paxlovid) 150-100 mg Tablets,Dose Pack Discontinued 3 {tbl} PO TWICE A DAY February 16, 2022 12:00am October 14, 2022 11:04am COVID Start: 02-16-2022 End: 10-14-2022 Nirmatrelvir-Ritonavir (Paxl ovid) 150-100 mg Tablets,Dose Pack Discontinued 3 {tbl} PO TWICE A DAY February 16, 2022 12:00am October 14, 2022 11:04am Start: 02-16-2022 End: 10-14-2022 take 3 tablets by mouth twice daily Nirmatrelvir-Ritonavir (Paxlovid) 150-10 0 mg Tablets,Dose Pack Discontinued 3 TABLET PO TWICE A DAY February 15, 2022 11:00pm October 14, 2022 10:04am Start: 02-16-2022 End: 03-10-2023 take 3 tablets by mouth twice daily Nirmatrelvir-Ritonavir (Paxlovid) 150-10 0 mg Tablets,Dose Pack Discontinued 3 TABLET PO TWICE A DAY February 16, 2022 12:00am October 14, 2022 11:04am Start: 02-16-2022 End: 10-14-2022 take 3 tablets by mouth twice daily Nirmatrelvir-Ritonavir (Paxlovid (Eua)) 150-100 mg Tablets,Dose Pack Discontinued 3 TABLET PO TWICE A DAY February 16, 2022 12:00am October 14, 2022 11:04am Start: 02-16-2022 take 3 tablets by mo [facility] twice daily Nirmatrelvir-Ritonavir (Paxlovid (Eua)) 150-100 mg Tablets,Dose Pack Active 3 TABLET PO TWICE A DAY February 16, 2022 12:00am nitrofurantoin, macrocrystals 25 mg / nitrofurantoin, monohydrate 75 mg oral capsule (20 sources) Nitrofuran Antibacterial Start: 06-10-2019 End: 03-30-2020 take 1 capsule by mouth twice daily Nitrofurantoin Monohyd/M-Cryst 100 MG capsule Discontinued 100 mg PO TWICE A DAY June 10, 2019 1:00am March 30, 2020 1:11pm nitroglycerin 0.4 mg sublingual tablet (1 source) Nitrate Vasodilator Start: 09-26-2024 End: 09-26-2024 0.4 mg, Sublingual, ONCE, 1 dose, On Evelin 09/26/24 at 1200, Maximum of three consecutive doses in 15 minutes. Do not chew, crush, or swallow sublingual tablet. Place under tongue and allow to dissolve. Alternately, may be placed in the buccal pouch., CT Procedure Drug Treatment Unknown - unknown (1 source) No information available. OXcarbazepine 300 mg oral tablet (20 sources) Anti-epileptic Agent Start: 02-19-2021 End: 06-17-2024 take 1 tablet by mouth twice daily Oxcarbazepine (Trileptal) 300 mg tablet Discontinued 300 mg PO TWICE A DAY March 03, 2021 12:00am June 05, 2024 9:02am SEIZURES Comment on above: Take 1 tablet by [facility] twice daily. potassium gluconate 2.35 meq oral tablet (14 sources) Start: 06-06-2024 End: 06-14-2024 take 1 tablet by mouth once daily Potassium Gluconate 595 mg (99 mg) tablet Discontinued 595 mg PO daily 30 June 06, 2024 12:00am June 14, 2024 9:44am Start: 06-06-2024 End: 06-06-2024 take 1 tablet by mouth once daily Potassium Gluconate 550 mg (90 mg) tablet Discontinued 550 mg PO daily 90 June 06, 2024 12:00am June 06, 2024 10:03am predniSONE 20 mg oral tablet (8 sources) Start: 07-25-2023 End: 06-05-2024 take 2 tablets by mouth once daily Prednisone 20 mg Tablet Discontinued 40 mg PO DAILY@0800 8 4 0 July 25, 2023 1:00am June 05, 2024 9:01am Start: 07-25-2023 take 40 mg by mouth once daily Prednisone Active 40 MG PO DAILY@0800 8 4 July 25, 2023 12:00am 20 ml sodium chloride 9 mg/ml injection (1 source) Start: 09-26-2024 End: 09-26-2024 1-100 mL, Intravenous, ONCE NEEDED, 1 dose, Starting on Evelin 09/26/24 at 1151, Until Evelin 09/26/24 at 1228, Flush, CT Procedure traZODone hydrochloride 50 mg oral tablet (20 sources) Serotonin Reuptake Inhibitor Start: 06-08-2022 take 1.5 tablets by mouth once daily at bedtime traZODone (DESYREL) 50 mg tablet Take 1.5 tablets by mouth daily at bedtime. [facility] 0 06/08/2022 Active Start: 03-03-2021 take 75 mg by mouth at bedtime Trazodone Active 75 MG PO AT BEDTIME March 03, 2021 4:24pm Start: 03-03-2021 End: 10-14-2022 take 1 tablet by mouth at bedtime Trazodone 150 mg tablet Discontinued 150 mg PO AT BEDTIME March 03, 2021 12:00am October 14, 2022 11:04am SLEEP Start: 11-27-2020 End: 03-03-2021 take 1 tablet by mouth once daily Trazodone 50 mg tablet Discontinued 50 mg PO DAILY November 27, 2020 12:00am March 03, 2021 4:23pm Comment on above: Take 1 tablet by malathi daily at bedtime. [facility]. Take 1.5 tablets by mouth daily at bedtime. [facility] valbenazine 40 mg oral capsule (20 sources) Start: End: take 1 capsule by mouth once valbenazine (INGREZZA) 40 mg capsule Take 1 capsule by mouth once daily. [facility]. 10/24/2022 06/17/2024 Discontinued (Discontinued by Patient) Start: 02-16-2022 End: 06-05-2024 take 1 capsule by mouth once daily Valbenazine (Ingrezza) 80 mg Capsule Discontinued 80 mg PO DAILY February 16, 2022 12:00am June 05, 2024 9:01am TARDIVS DYSKINESIA Start: 08-29-2019 take 1 capsule by mo [facility] once daily Valbenazine (Ingrezza) 40 mg capsule Active 40 MG PO DAILY August 29, 2019 2:20pm Comment on above: Take 1 capsule by mo [facility] once daily. Take 1 capsule by mo [facility] once daily. [facility]. divalproex sodium 125 mg delayed release oral capsule (20 sources) Mood Stabilizer, Anti-epileptic Agent Start: 10-24-2022 End: 06-17-2024 divalproex sprinkle (DEPAKOTE SPRINKLES) 125 mg capsule Take 1 capsule by mouth twice daily. [facility]. 10/24/2022 06/17/2024 Discontinued (Discontinued by Patient) Start: 10-14-2022 End: 06-05-2024 take 1 tablet by mouth twice daily Divalproex (Depakote) 125 mg tablet,delayed release (DR/EC) Discontinued 125 mg PO TWICE A DAY October 14, 2022 1:00am June 05, 2024 9:00am Comment on above: Take 1 capsule by mo [facility] twice daily. [facility]. vancomycin 250 mg oral capsule (18 sources) Glycopeptide Antibacterial Start: 02-24-20 End: 10-15-19 take 2 capsules by mouth every six hours Vancomycin 250 mg Capsule Discontinued 500 mg PO EVERY 6 HOURS 16 0 February 23, 2022 12:00am October 14, 2022 11:03am Start: 02-23-2022 End: 10-14-2022 take 500 mg by mouth every six hours Vancomycin Discontinued 500 MG PO EVERY 6 HOURS February 22, 2022 11:00pm October 14, 2022 10:03am varenicline 1 mg oral tablet (20 sources) Partial Cholinergic Nicotinic Agonist Start: 02-14-2019 End: 08-29-2019 take 1 tablet by mouth twice daily Varenicline Tartrate (Chantix) 1 mg tablet Discontinued 1 mg PO TWICE A DAY February 14, 2019 12:00am August 29, 2019 2:20pm vitamin b12 0.5 mg oral tablet (20 sources) Vitamin B12 Start: 11-02-2022 End: 06-17-2024 take 1 tablet by mouth once daily cyanocobalamin (VITAMIN B-12) 500 mcg tablet Take 1 tablet by mouth once daily. 30 tablet 2 12/26/2023 06/17/2024 Discontinued (Course of therapy completed) Comment on above: Take 1 tablet by malathi once daily. warfarin sodium 5 mg oral tablet (20 sources) Vitamin K Antagonist Start: 02-16-2022 End: 11-14-2022 take 1 tablet by mouth every week Warfarin 4 mg tablet Discontinued 4 mg PO EVERY WEEK 12 November 02, 2022 2:55pm November 14, 2022 3:54pm BLOOD THINNER Wednesdays Please contact the information source for Protocol details. Start: 02-22-2021 End: 12-14-2021 Warfarin 2.5 mg tablet Disco ntinued 2.5 mg PO .COMPLEX 06 07October 19, 2021 12:00am December 14, 2021 4:48pm 2.5 mg PO Monday, , and (take a 5 mg tablet all other days of the week; or as directed); Please contact the information source for Protocol details. Start: 02-22-2021 End: 12-08-2022 Warfarin 5 mg tablet Discont inued 5 mg PO SUMOTUTHFRSA 90 November 02, 2022 2:56pm November 14, 2022 3:54pm Please contact the information source for Protocol details. Start: 09-14-2020 End: 10-19-2021 Warfarin 5 mg tablet Discont inued 0 mg PO .COMPLEX 30 September 292 2:01pm October 19, 2021 3:05pm blood thinner 2.5 mg on Monday, , Monday and Monday. 5 mg Monday, Monday and Fridays. Please contact the information source for Protocol details. Start: 09-14-2020 End: 10-19-2021 Warfarin Discontinued 0 MG P O .COMPLEX September 29, 2021 1:01pm October 19, 2021 2:05pm 2.5 mg on Monday, , Monday and Monday. 5 mg Monday, Monday and Fridays. Start: 08-29-2019 End: 09-14-2020 Warfarin 5 mg tablet Discont inued 12.5 mg PO .COMPLEX August 29, 2019 2:22pm September 14, 2020 4:16pm 12.5 mg PO managed by PCP; Start: 08-29-2019 End: 09-14-2020 Warfarin Discontinued 12.5 M G PO .COMPLEX August 29, 2019 1:22pm September 14, 2020 3:16pm 12.5 mg PO managed by PCP; Start: 08-29-2019 End: 09-14-2020 Warfarin 2.5 mg tablet Disco ntinued 12.5 mg PO .COMPLEX August 29, 2019 2:21pm September 14, 2020 4:15pm 12.5 mg PO maanaged by PCP; Start: 08-29-2019 End: 09-14-2020 Warfarin Discontinued 12.5 M G PO .COMPLEX August 29, 2019 1:21pm September 14, 2020 3:15pm 12.5 mg PO maanaged by PCP; Start: 02-23-2017 WARFARIN SODIU M 5 MG TABS WARFARIN SODIUM [id number] Katey Lobo Start: 02-19-2017 End: 08-29-2019 Warfarin 5 MG tablet Discont inued 2.5 {tbl} PO SUSA February 19, 2017 1:01pm August 29, 2019 2:22pm Start: 02-19-2017 End: 08-29-2019 Warfarin Discontinued 2.5 TA BLET PO SUSA February 19, 2017 12:01pm August 29, 2019 1:22pm Start: 06-11-2016 End: 08-29-2019 Warfarin 2.5 MG tablet Disco ntinued 5 {tbl} PO MOTUWETHFR June 11, 2016 12:00am August 29, 2019 2:22pm Start: 06-11-2016 End: 02-19-2017 Warfarin (Jantoven) 5 MG tab let Discontinued 1 {tbl} PO SUSA 0 0 June 19, 2016 3:47pm February 19, 2017 1:01pm do not take on 06/19 Start: 06-11-2016 End: 08-29-2019 Warfarin Discontinued 5 TABL ET PO MOTUWETHFR June 10, 2016 11:00pm August 29, 2019 1:22pm Start: 06-11-2016 End: 02-19-2017 Warfarin (Jantoven) 5 MG tab let Discontinued 1 TABLET PO SUSA 0 June 19, 2016 2:47pm February 19, 2017 12:01pm do not take on 06/19 Comment on above: Take 5 mg Mon/Mon/ ri and 2.5 mg Monday, , Mon. And Sun or as directed Take 1 tablet by malathi th daily as directed. Monday, , Monday, zinc oxide 0.4 mg/mg paste (12 sources) Start: 12-14-2021 zinc oxide-cod liver oil (DESITIN) 40 % paste Indications: Urge incontinence Apply 1 application to affected area twice daily as needed (diaper rash). 113 g 1 12/14/2021 Active Comment on above: Apply 1 application to affected area twice daily as needed (diaper rash). Problems Active Problems Problem Classification Problem Date Documented Date Episodic/Chronic Acute and unspecified renal failure (20 sources) Injury of kidney; Translations: [Acute kidney failure, unspecified] Episodic Acute cerebrovascular disease (20 sources) Cerebrovascular accident; Translations: [Cerebral infarction, unspecified] 10-23-2018 Chronic Comment on above: Left Mid Cerebral Ar lesvia, Right frontal and Bilateral Parietal Regions Administrative/social admission (4 sources) Other reduced mobility; Translations: [Other specified conditions influencing health status] Onset: 02-04-2025 02-04-2025 Episodic Anxiety disorders (20 sources) Anxiety; Translations: [Anxiety disorder, unspecified] Onset: 12-19-2006 Resolved: 05-11-2017 Chronic Cardiac dysrhythmias (20 sources) Paroxysmal atrial fibrillation; Translations: [Paroxysmal atrial fibrillation] Onset: 08-27-2009 Resolved: 05-30-2016 03-05-2021 Chronic Chronic kidney disease (20 sources) Chronic kidney disease stage 3; Translations: [CKD (chronic kidney disease) stage 3, GFR 30-59 ml/min] Onset: 06-18-2018 11-06-2020 Chronic Chronic kidney disease (1 source) Chronic kidney disease; Translations: [Hypertensive kidney disease with stage 3a chronic kidney disease (HCC)] Onset: 06-10-2021 Chronic obstructive pulmonary disease and bronchiectasis (20 sources) Asthma-chronic obstructive pulmonary disease overlap syndrome; Translations: [Chronic obstructive pulmonary disease, unspecified] Onset: 06-23-2016 06-10-2021 Chronic Chronic obstructive pulmonary disease and bronchiectasis (1 source) Chronic obstructive pulmonary disease and bronchiectasis; Translations: [Asthma with chronic obstructive pulmonary disease (COPD) (HCC)] Onset: 06-10-2021 Coagulation and hemorrhagic disorders (10 sources) Acquired coagulation disorder; Translations: [Coagulation defect, unspecified] 06-25-2023 Chronic Conduction disorders (20 sources) Complete atrioventricular block; Translations: [Atrioventricular block, complete] Onset: 09-21-2020 Chronic Comment on above: Implanted 07/28/2009 then RV lead extraction and Generator Change on 07/04/2011, 09/21/2020 Delirium, dementia, and amnestic and other cognitive disorders (20 sources) Dementia; Translations: [Unspecified dementia without behavioral disturbance] Onset: 06-17-2024 Chronic Disorders of lipid metabolism (20 sources) Hyperlipidemia; Translations: [Hyperlipidemia, unspecified] Onset: 10-24-2022 Chronic E Codes: Fall (6 sources) Fall; Translations: [Unspecified fall, initial encounter] 01-13-2025 Episodic Esophageal disorders (20 sources) Gastroesophageal reflux disease without esophagitis; Translations: [Gastro-esophageal reflux disease without esophagitis] Onset: 10-24-2022 10-24-2022 Chronic Essential hypertension (20 sources) Hypertensive disorder; Translations: [Essential (primary) hypertension] Onset: 12-27-2006 Resolved: 11-23-2008 02-22-2021 Chronic Fluid and electrolyte disorders (20 sources) Lactic acidosis; Translations: [Acidosis] Onset: 03-13-2025 Episodic Genitourinary symptoms and ill-defined conditions (20 sources) Urge incontinence of urine; Translations: [Urge incontinence] Onset: 10-03-2019 10-03-2019 Chronic Heart valve disorders (20 sources) Mitral valve regurgitation; Translations: [Nonrheumatic mitral (valve) insufficiency] Onset: 11-27-2008 Resolved: 10-07-2010 08-02-2021 Chronic Hypertension with complications and secondary hypertension (20 sources) Chronic kidney disease stage 3 due to hypertension; Translations: [Hypertensive chronic kidney disease with stage 1 through stage 4 chronic kidney disease, or unspecified chronic kidney disease] Onset: 06-18-2018 06-10-2021 Chronic Immunizations and screening for infectious disease (2 sources) Patient encounter status; Translations: [Encounter for screening for human papillomavirus (HPV)] Episodic Late effects of cerebrovascular disease (20 sources) 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; Translations: [Dysphasia following cerebral infarction] Onset: 05-11-2017 11-06-2020 Chronic Malaise and fatigue (20 sources) Asthenia; Translations: [Other malaise] Episodic Miscellaneous mental health disorders (20 sources) Psychogenic hyperventilation; Translations: [Other somatoform disorders] 11-18-2021 Chronic Mood disorders (20 sources) Depressive disorder; Translations: [Depressive disorder] Onset: 12-19-2006 11-06-2020 Chronic Mycoses (20 sources) Tinea pedis; Translations: [Tinea pedis] Onset: 03-24-2025 10-24-2018 Episodic Nonmalignant breast conditions (2 sources) Pain of breast; Translations: [Mastodynia] Episodic Nonspecific chest pain (4 sources) Chest pain; Translations: [Chest pain, unspecified] Onset: 09-26-2024 09-26-2024 Episodic Other aftercare (2 sources) 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; Translations: [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] Onset: 09-26-2024 Episodic Other and ill-defined cerebrovascular disease (20 sources) Intracranial aneurysm; Translations: [Cerebral aneurysm, nonruptured] Onset: 10-11-2020 11-06-2020 Chronic Other and ill-defined cerebrovascular disease (2 sources) Cerebral aneurysm, nonruptured; Translations: [Brain aneurysm (HCC)] Onset: 11-06-2020 Chronic Other circulatory disease (20 sources) H/O: atrial fibrillation; Translations: [Personal history of other diseases of the circulatory system] 10-20-2021 Episodic Other circulatory disease (20 sources) History of cerebrovascular accident; Translations: [Personal history of transient ischemic attack (TIA), and cerebral infarction without residual deficits] 10-08-2020 Episodic Other circulatory disease (20 sources) Low blood pressure; Translations: [Hypotension, unspecified] 11-02-2021 Episodic Other circulatory disease (11 sources) Hypotension, unspecified; Translations: [Hypotension, unspecified] Episodic Other circulatory disease (5 sources) Personal history of transient ischemic attack (TIA), and cerebral infarction without residual deficits; Translations: [Personal history of transient ischemic attack (TIA), and cerebral infarction without residual deficits] Onset: 09-26-2024 Episodic Other circulatory disease (2 sources) History of cerebrovascular disease; Translations: [Personal history of transient ischemic attack (TIA), and cerebral infarction without residual deficits] 09-26-2024 Episodic Other connective tissue disease (1 source) Unspecified symptoms and signs involving the nervous system; Translations: [Unspecified symptoms and signs involving the nervous system] Onset: 06-13-2022 Episodic Other connective tissue disease (11 sources) Pain in bilateral legs; Translations: [Pain in right leg] Onset: 03-24-2025 12-09-2024 Episodic Other connective tissue disease (3 sources) Recurrent falls ; Translations: [Repeated falls] 02-04-2025 Episodic Other connective tissue disease (1 source) Pain in right leg; Translations: [Bilateral lower extremity pain] Onset: 03-24-2025 Episodic Other connective tissue disease (1 source) Pain in left leg; Translations: [Bilateral lower extremity pain] Onset: 03-24-2025 Episodic Other connective tissue disease (2 sources) Repeated falls; Translations: [Frequent falls] Onset: 02-04-2025 Episodic Other hematologic conditions (1 source) History of anemia; Translations: [Personal history of diseases of the blood and blood-forming organs and certain disorders involving the immune mechanism] 03-24-2025 Episodic Other hematologic conditions (1 source) Personal history of diseases of the blood and blood-forming organs and certain disorders involving the immune mechanism; Translations: [History of anemia] Onset: 03-24-2025 Episodic Other hereditary and degenerative nervous system conditions (3 sources) Drug induced subacute dyskinesia; Translations: [Subacute dyskinesia due to drugs] Episodic Other injuries and conditions due to external causes (20 sources) Puncture wound - injury; Translations: [Other injury of unspecified body region, initial encounter] 12-18-2021 Episodic Other injuries and conditions due to external causes (5 sources) Other injury of unspecified body region, initial encounter; Translations: [Open wound(s) (multiple) of unspecified site(s), without mention of complication] Episodic Other injuries and conditions due to external causes (6 sources) Closed injury of head; Translations: [Unspecified injury of head, initial encounter] 01-13-2025 Episodic Other injuries and conditions due to external causes (1 source) Unspecified injury of head, initial encounter; Translations: [Unspecified injury of head, initial encounter] Onset: 01-16-2025 Episodic Other lower respiratory disease (20 sources) Dyspnea; Translations: [Shortness of breath] 07-22-2021 Episodic Other lower respiratory disease (20 sources) Wheezing; Translations: [Wheezing] 07-22-2021 Episodic Other lower respiratory disease (3 sources) Wheezing; Translations: [Wheezing] Episodic Other lower respiratory disease (9 sources) Dyspnea on exertion; Translations: [Other forms of dyspnea] 07-24-2023 Episodic Other lower respiratory disease (9 sources) Hypoxia; Translations: [Hypoxemia] 07-24-2023 Episodic Other lower respiratory disease (2 sources) Hypoxemia; Translations: [Hypoxemia] 07-24-2023 Episodic Other nervous system disorders (20 sources) Disorder of brain; Translations: [Encephalopathy, unspecified] 12-21-2021 Chronic Other nervous system disorders (5 sources) Encephalopathy, unspecified; Translations: [Encephalopathy, unspecified] Chronic Other nervous system disorders (20 sources) Metabolic encephalopathy; Translations: [Metabolic encephalopathy] 12-18-2021 Chronic Other nervous system disorders (4 sources) Metabolic encephalopathy; Translations: [Metabolic encephalopathy] Chronic Other nervous system disorders (1 source) Neuropathy; Translations: [Polyneuropathy, unspecified] 02-04-2025 Chronic Other nervous system disorders (1 source) Polyneuropathy, unspecified; Translations: [Neuropathy] Onset: 02-04-2025 Chronic Other nervous system disorders (5 sources) Unspecified abnormalities of gait and mobility; Translations: [Abnormality of gait] Onset: 02-04-2025 Episodic Other nutritional; endocrine; and metabolic disorders (20 sources) Obese class I; Translations: [Obesity, unspecified] Onset: 11-12-2018 11-06-2020 Chronic Other nutritional; endocrine; and metabolic disorders (20 sources) Weight gain; Translations: [Abnormal weight gain] 07-22-2021 Episodic Other nutritional; endocrine; and metabolic disorders (3 sources) Abnormal weight gain; Translations: [Abnormal weight gain] Episodic Other nutritional; endocrine; and metabolic disorders (7 sources) Weight increased; Translations: [Abnormal weight gain] 07-22-2021 Episodic Other screening for suspected conditions (not mental disorders or infectious disease) (20 sources) INR raised; Translations: [Abnormal coagulation profile] Onset: 06-13-2022 Episodic Other upper respiratory disease (5 sources) Epistaxis; Translations: [Epistaxis] Episodic Otitis media and related conditions (10 sources) Acute left otitis media; Translations: [Otitis media, unspecified, left ear] 06-25-2023 Episodic Faith-; endo-; and myocarditis; cardiomyopathy (except that caused by tuberculosis or sexually transmitted disease) (20 sources) Cardiomyopathy; Translations: [Other cardiomyopathies] Onset: 09-26-2024 Chronic Comment on above: EF 45% per echo 12/27 Residual codes; unclassified (2 sources) Family history of malignant neoplasm of breast in first degree relative; Translations: [Family history of malignant neoplasm of breast] Episodic Residual codes; unclassified (2 sources) Family history of malignant neoplasm of male breast; Translations: [Family history of malignant neoplasm of breast] Episodic Residual codes; unclassified (9 sources) Tobacco use and exposure - finding; Translations: [Tobacco use] 07-24-2023 Episodic Residual codes; unclassified (2 sources) Tobacco use; Translations: [Tobacco use disorder] 07-24-2023 Episodic Residual codes; unclassified (6 sources) Edema of foot; Translations: [Localized edema] 12-09-2024 Episodic Residual codes; unclassified (2 sources) Other specified health status; Translations: [Impaired mobility and ADLs] Onset: 02-04-2025 Episodic Screening and history of mental health and substance abuse codes (20 sources) H/O: manic depressive disorder; Translations: [Personal history of other mental and behavioral disorders] 11-18-2021 Episodic Septicemia (except in labor) (20 sources) Sepsis; Translations: [Sepsis, unspecified organism] Episodic Skin and subcutaneous tissue infections (20 sources) Cellulitis of foot; Translations: [Cellulitis of right lower limb] 10-24-2018 Episodic Superficial injury; contusion (20 sources) Contusion; Translations: [Contusion of upper arm] Onset: 02-23-2017 02-23-2017 Episodic Unclassified (1 source) No current problems or disability 03-01-2017 Unclassified (3 sources) Patient encounter status 12-17-2024 Unclassified (1 source) Impaired mobility and ADLs 02-11-2025 Unclassified (1 source) Dementia with anxiety, unspecified dementia severity, unspecified dementia type (HCC); Translations: [Dementia with anxiety, unspecified dementia severity, unspecified dementia type (HCC)] Onset: 06-17-2024 Urinary tract infections (20 sources) Urinary tract infectious disease; Translations: [Urinary tract infection, site not specified] Episodic Past or Other Problems Problem Classification Problem Date Documented Da te Episodic/Chronic Asthma (20 sources) Unspecified asthma, uncomplicated; Translations: [Asthma, unspecified type, unspecified] Onset: 12-19-2006 Resolved: 08-18-2015 08-18-2015 Chronic Complication of device; implant or graft (20 sources) Malfunction of cardiac pacemaker; Translations: [Breakdown (mechanical) of cardiac pulse generator (battery), initial encounter] Onset: 07-01-2011 Resolved: 07-25-2013 08-02-2021 Episodic Deficiency and other anemia (20 sources) Anemia; Translations: [Anemia, unspecified] Onset: 12-01-2008 Resolved: 05-11-2017 03-03-2022 Episodic Deficiency and other anemia (2 sources) Anemia, unspecified; Translations: [Anemia, unspecified] Onset: 06-17-2024 Episodic Menstrual disorders (20 sources) Menorrhagia; Translations: [Excessive and frequent menstruation with regular cycle] Onset: 08-14-2013 Resolved: 08-18-2015 08-18-2015 Chronic Nutritional deficiencies (20 sources) Undernutrition; Translations: [Mild protein-calorie malnutrition] Onset: 10-19-2020 Resolved: 06-10-2021 06-10-2021 Chronic Other aftercare (20 sources) Long-term current use of anticoagulant; Translations: [retirement (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 anticoagulants] Onset: 11-23-2008 03-05-2021 Episodic Other and ill-defined cerebrovascular disease (20 sources) Cerebrovascular disease; Translations: [Other cerebrovascular disease] Onset: 11-07-2008 Resolved: 05-11-2017 08-02-2021 Chronic Other complications of (20 sources) High risk ; Translations: [Supervision of high risk , unspecified, unspecified trimester] Onset: 04-10-2008 Resolved: 09-09-2008 09-09-2008 Episodic Other complications of (20 sources) Multigravida of advanced maternal age; Translations: [Supervision of elderly multigravida, unspecified trimester] Onset: 09-09-2008 Resolved: 11-27-2008 11-27-2008 Episodic Other complications of (20 sources) Supervision of other high risk pregnancies, unspecified trimester; Translations: [Supervision of other high-risk ] Onset: 09-09-2008 Resolved: 11-27-2008 11-27-2008 Episodic Other complications of (20 sources) Poor growth affecting management; Translations: [Maternal care for other known or suspected poor growth, unspecified trimester, not applicable or unspecified] Onset: 10-31-2008 Resolved: 11-27-2008 11-27-2008 Episodic Other connective tissue disease (1 source) Neurological symptom; Translations: [Unspecified symptoms and signs involving the nervous system] Onset: 06-13-2022 09-24-2024 Episodic Other gastrointestinal disorders (20 sources) Mass of colon; Translations: [Other specified diseases of intestine] Onset: 06-16-2016 Resolved: 12-08-2016 12-08-2016 Episodic Other hereditary and degenerative nervous system conditions (20 sources) Tardive dyskinesia; Translations: [Drug induced subacute dyskinesia] Onset: 08-18-2015 06-07-2022 Episodic Other injuries and conditions due to external causes (15 sources) Multiple open wounds with complication; Translations: [Unspecified multiple injuries, initial encounter] Onset: 12-01-2008 Resolved: 06-29-2009 06-29-2009 Episodic Other injuries and conditions due to external causes (15 sources) Unspecified multiple injuries, initial encounter; Translations: [Open wound(s) (multiple) of unspecified site(s), complicated] Onset: 12-01-2008 Resolved: 06-29-2009 06-29-2009 Episodic Other lower respiratory disease (5 sources) Shortness of breath; Translations: [Shortness of breath] Onset: 07-17-2024 Episodic Other lower respiratory disease (5 sources) Other forms of dyspnea; Translations: [Other respiratory abnormalities] Onset: 07-08-2024 07-24-2023 Episodic Other nervous system disorders (20 sources) Abnormal gait; Translations: [Unsteadiness on feet] Onset: 01-07-2021 01-07-2021 Episodic Other nervous system disorders (1 source) Unsteadiness on feet; Translations: [Unsteady gait] Onset: 01-07-2021 Episodic Other non-traumatic joint disorders (2 sources) Knee pain; Translations: [Pain in right knee] Onset: 02-23-2017 02-23-2017 Episodic Other upper respiratory disease (20 sources) Bleeding from nose; Translations: [Epistaxis] Onset: 11-06-2020 Resolved: 06-14-2021 12-18-2021 Episodic Residual codes; unclassified (1 source) Localized edema; Translations: [Pedal edema] Onset: 12-16-2024 Episodic Schizophrenia and other psychotic disorders (20 sources) Schizophrenia; Translations: [Schizophrenia, unspecified] Onset: 10-01-2014 Resolved: 05-30-2016 06-19-2022 Chronic Spondylosis; intervertebral disc disorders; other back problems (20 sources) Backache; Translations: [Dorsalgia, unspecified] Onset: 10-21-2008 Resolved: 06-29-2009 06-29-2009 Episodic Sprains and strains (2 sources) Sprain of unspecified site of right knee, initial encounter; Translations: [Sprain of unspecified site of right knee, initial encounter] Onset: 02-23-2017 02-23-2017 Episodic Substance-related disorders (20 sources) Tobacco user; Translations: [Nicotine dependence, unspecified, uncomplicated] Onset: 12-19-2006 Resolved: 06-17-2024 11-06-2020 Chronic Unclassified (20 sources) SUMMARY Onset: 07-01-2011 Resolved: 05-08-2012 08-02-2021 Results Test Name Value Interpretation Reference Range Facility [facility] 04-03 [facility] * * *Final Report* * * DATE OF EXAM: Apr 03 2025 2:45PM [id number] - [facility] / PROCEDURE REASON: Encounter for screening mammogram for malignant neoplasm of breast * * * * Physician Interpretation * * * * RESULT: [facility] [address] [place] [address] #[id number] - [facility] HISTORY: 59 year-old patient presents for screening. Patient is asymptomatic in both breasts. Patient states no personal history of breast cancer. The patient has a family history of breast cancer. COMPARISON STUDIES: The present examination has been compared to prior imaging studies dated 05/18/2017 (mammogram), 05/23/2018 (mammogram), 10/07/2019 (mammogram) and 12/08/2022 (mammogram). MAMMOGRAM TECHNIQUE: The study was acquired using full field digital technology and interpreted from soft copy. Digital Breast Tomosynthesis (DBT) images were obtained and used to assist in the interpretation of this examination. Computer-aided detection was utilized by the radiologist in the interpretation of this examination. MAMMOGRAM FINDINGS: There are scattered areas of fibroglandular density. No suspicious masses, calcifications or other abnormalities are seen in either breast. There are no significant interval changes. Cardiac device overlies the left axilla. IMPRESSION: There is no mammographic evidence of malignancy in either breast. Routine screening mammogram is recommended. Annual mammogram will be due in 1 year. BI-RADS Category 1: Negative RISK: Based on the Tyrer-Cuzick (TC) risk assessment model, this patient has a 15.0% lifetime risk of developing breast cancer, meaning they are at average risk for developing breast cancer. However, this is only an estimate based on available history provided on the patient's questionnaire. We encourage all patients to talk with their providers about these results, further recommendations for managing breast health, and appropriate supplemental screening options if the patient has dense breast tissue. Interpreting Radiologist: Azucena Nguyen M.D. Resident/Fellow: Jamal Miller M.D. Electronically signed on: 04/04/2025 Baster Hand: [id number] Transcribe Date/Time: Apr 03 2025 11:56A Dictated by: JAMAL MILLER MD This examination was interpreted and the report reviewed and electronically signed by: AZUCENA NGUYEN MD on Apr 04 2025 1:32PM EST [id number] Normal [facility] CNOVon 03-24-2025 CNOV Office Visit (INTMWS ) -------- FROILAN GARCÍA ([id number]) 1965 F Date Time Provider Department 03/24/25 12:40 PM [facility] INTMWS During your visit today, we recorded the following information about you: Pulse Respiration Blood pressure Weight 80/minute 16/minute 110/70 84.3 kg Louis Dobbs MD 03/24/2025 1:59 PM Signed Subjective Froilanjany García is a 59 year old female. Patient presents with: F/U 3 Month Patient was seen by our GRAPHICS MANAGER 02/04/25 for gait abnormality. She was trying to get a powered wheelchair. She had no recent falls. She had a functional evaluation 03/06/25. She now needs a PT evaluation for the powered mobility device, and order was sent this month. She had chronic sequelae of cerebral vascular accident but was unable to travel [place] to see neurology. She complained of chronic pains in both her plantar feet, and her lateral thighs on both sides, like pins and needles. She was prescribed gabapentin, and amitriptyline which made her too sedate, so she stopped these and was not interested in trying more medications at this time. 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) Ckd (Chronic Kidney Disease) Stage 3, Gfr 30-59 Ml/Min ([facility]) Obesity, Class I, Bmi 30-34.9 Urge Incontinence Brain Aneurysm (Hcc) Hemiparesis Due to Old Cerebrovascular Accident (Hcc) Unsteady Gait Hypertensive Kidney Disease With Stage 3 Chronic Kidney Disease (Hcc) Anxiety Gastroesophageal Reflux Disease Without Esophagitis Hyperlipidemia Dementia (Hcc) Bilateral Lower Extremity Pain Social History Tobacco Use Smoking status: Former Current packs/day: 1.00 Average packs/day: 1 pack/day for 34.5 years (34.5 ttl pk-yrs) Types: Cigarettes Start date: 1990 Smokeless tobacco: Never Substance Use Topics Alcohol use: No Drug use: No Current Outpatient Medications Medication Sig furosemide (LASIX) 40 mg tablet Take 40 mg by mouth once daily. POTASSIUM-99 ORAL Take 99 mg by mouth once daily. ELIQUIS 5 mg tab(s) Take 5 mg by mouth. acetaminophen (TYLENOL) 500 mg tablet Take 1 tablet by mouth three times daily as needed for pain. amLODIPine (NORVASC) 10 mg tablet Take 1 tablet by mouth once daily. Cholecalciferol, Vitamin D3, 125 mcg (5,000 unit) cap Take 1 capsule by mouth once daily. pantoprazole DR (PROTONIX) 20 mg tablet Take 1 tablet by mouth daily before breakfast. Take on empty stomach, 1/2 hr before meal. rosuvastatin (CRESTOR) 5 mg tablet Take 1 tablet by mouth once daily. nystatin (MYCOSTATIN) powder Apply 1 application to affected area four times a day as needed. No current facility-administered medications for this visit. Review of Systems Constitutional: Negative for fatigue and fever. Respiratory: Negative for shortness of breath. Cardiovascular: Negative for chest pain, palpitations and leg swelling. Musculoskeletal: Positive for gait problem. Neurological: Positive for weakness. Psychiatric/Behavioral: Positive for confusion. Objective BP 110/70 (BP Site: Left Arm, BP Position: Sitting, BP Cuff Size: Large Adult) Pulse 80 Resp 16 Wt 84.3 kg (185 lb 13.6 oz) LMP (LMP Unknown) BMI 31.90 kg/m? Physical Exam Constitutional: General: She is not in acute distress. Appearance: She is obese. HENT: Head: Normocephalic. Eyes: Extraocular Movements: Extraocular movements intact. Conjunctiva/sclera: Conjunctivae normal. Cardiovascular: Rate and Rhythm: Normal rate and regular rhythm. Pulses: Normal pulses. Heart sounds: No murmur heard. No gallop. Pulmonary: Breath sounds: Normal breath sounds. Abdominal: Palpations: Abdomen is soft. Tenderness: There is no abdominal tenderness. Neurological: General: No focal deficit present. Mental Status: She is alert. Cranial Nerves: Dysarthria present. Motor: Weakness present. Gait: Gait abnormal. Comments: 1) Right hemiparesis. 2) Paraparesis of both legs 3/5. 3) Bilateral foot drop. 4) Unsteady gait with cane. ASSESSMENT/PLAN: 1. Primary hypertension - ICD9: 401.9, ICD10: I10 (primary diagnosis) - Controlled - Continue current medications - Recommend home blood pressure monitoring, to bring results to next visit - Encouraged sodium restriction, DASH or Mediterranean diet - Recommend regular aerobic exercise - AMLODIPINE 10 MG TABLET 2. Gastroesophageal reflux disease without esophagitis - ICD9: 530.81, ICD10: K21.9 - Controlled. - PANTOPRAZOLE 20 MG TABLET,DELAYED RELEASE 3. Hyperlipidemia, unspecified hyperlipidemia type - ICD9: 272.4, ICD10: E78.5 - Controlled - Continue (more content not included)... Normal [facility] OT Functional Capacity Evalo n 02-27-2025 OT Functional Capacity Eval [facility] [place] [address] / REHABILITATION SERVICES INITIAL EVALUATION MR#: [id number] Acct: [id number] Name: FROILAN GARCÍA Rep #: [id number] : 1965 59 From: Nena Arellano Referring Dr.: Dr. Louis Dobbs MD Status: REG R Insurance: [facility] D[facility] ADVANT[facility] Eval Date: [facility] Task Lift Floor (Occasional 1-33% of Day): 20 Floor (Frequent 34-66% of Day): 10 Floor (Constant 67-100% of Day): 4.2 Floor PDL: Light Knee (Occasional 1-33% of Day): 20 Knee (Frequent 34-66% of Day): 10 Knee (Constant 67-100% of Day): 4.2 Knee PDL: Light Waist (Occasional 1-33% of Day): 20 Waist (Frequent 34-66% of Day): 10 Waist (Constant 67-100% of Day): 4.2 Waist PDL: Light Shoulder (Occasional 1-33% of Day): 15 Shoulder (Frequent 34-66% of Day): 7.5 Shoulder (Constant 67-100% of Day): 3.1 Shoulder PDL: Sedentary-Light Overhead (Occasional 1-33% of Day): 0 Overhead (Frequent 34-66% of Day): 0 Overhead (Constant 67-100% of Day): 0 Overhead PDL: No Ability Comments: pt scores as light in floor, knee and waist lift; sedentary light in shoulder lift and unable to do overhead lift Work Activity/Posture Bending: Occasional Ability (1-33% of day) Squatting: Occasional Ability (1-33% of day) Kneeling: No Ablility (0% of day) Reaching out: Frequent Ability (34-66% of day) Reaching up: Occasional Ability (1-33% of day) Sitting: Constant Ability (67-100% of day) Walking: Occasional Ability (1-33% of day) Standing: Occasional Ability (1-33% of day) Reference Reference: Duration Sedentary Sedentary Light Light Light Medium Medium Medium Heavy Very Heavy Heavy Occasional (0-33% of day) Frequent (34-66% of day) Constant (67-100% of day) 10 # Negligible Negligible 15 # 8 # Negligible 20 # 10# Negli. 35 # 18 # 7 # 50 # 25 # 10 # 75 # 100 # >100 # 38 # 50 # >50 # 15 # 20 # >20 # Patient Information Height: 5 ft 3 in Weight:: 85.729 kg Hand Dominance: i dont know Medical History Medical History Including Restrictions: This 59 year old female arrives with dx of abnormality of gait late effect of stroke hemiparesis due to cerebrovascular accident. Brain aneurysm. Impaired mobility as well as frequent falls. Pt initial stroke November 05 2008 in which she reports they also had to place a pacemaker due to heart attack. Pt states she has had approx 13 TIAs leading up to major stroke. Pt now takes blood thinner medication. Pt states she has had x2 brain aneurysms. pt does report she had therapy after stroke as well as aneurysms however continues to have balance deficits. pt reports having x4 falls in the past year due to instability as well as nueropathy of BLEs causing pain in feet. Diagnoses Diagnoses: I69.398 abnormality of gait as late effect of stroke I69.359 hemiparesis due to old cerebrovascular accident I67.1 Brain aneurysm Z74.09 imapired mobility and ADLs R29.6 Frequent falls Z 13.9 Encounter for risk and functional assessment Symptoms Symptoms: difficulty walking and impaired balance causing increased risk for falls slurred speech at times delayed reaction time and motor control neuropathy of B legs difficulty attending to task Pain Pain: neuropathy of B feet 5/10 sitting -- 10/10 when standing use to use gabapentin for pain however no longer taking states she only takes Tylenol at this time Sohail Pain Questionnaire Work History Work History: Pt worked at [employer] for 5 years however stopped once she had her stroke in 2008 and 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 apartment is handicap accessable. uses hospital bed at home. pt on base level and uses back door to get in and out which does not require stairs. Pt does have 7 steps to get out front door of complex however does not use these. Pt has aid that comes for 8 hours a day that assists with ADL and IADL tasks. pt uses a cane as means of mobility. Aid and or son will do the cooking at home. pt does not drive at this time. pt uses a shower seat for bathing tasks. pt does report attempting to perform laundry tasks and light cleaning Physical Examination Physical Examination: at rest sitting HR 92 bpm 02 97% ROM: B Upper Extremity WFL B Lower Extremity: WFL Strength: Upper Extremity: L shoulder flexion 7.3# R shoulder flexion 3.3# L bicep flexion 8.8# R bicep flexion 3.1# L ER: 3.3# R ER: 6.1# L tricep: 5.7# R tricep: 5.1# Lower Extremity: L hip flexion: 11.1# R hip flexion: 6.4# L quad: 7.8# R quad: 5.1# L hamstrin.4# R hamstrin Right Pet Nutrition Specialist Strength Average: 5.00 Right Pet Nutrition Specialist Strength Percentile (more content not included)... Normal [facility] Anion gap in Serum or Plasma Ordered By: Contreras Maxwell on 02-13-2025 Anion gap [Moles/Vol] 11 mmol/L 12-19 [facility] BUN/creatinine ratioOrdered By: Contreras Maxwell on 02-13-2025 Urea nitrogen/Creatinine [Mass ratio] 12.3 mg/mg 05-26 [facility] Basic Metabolic Profile (BMP )on 02-13-2025 BUN/CRE 12.3 RATIO Normal 05-26 [facility] Comment on above: Performed By: #### L 500.2500 #### [facility] [address] [place], [address] Calcium [Mass/Vol] 9.8 mg/dL Normal 7.6-11.0 [facility] Comment on above: Performed By: #### L 500.2500 #### [facility] [address] [place], [address] Chloride [Moles/Vol] 101 mmol/L Normal 98-108 [facility] Comment on above: Performed By: #### L 500.2500 #### [facility] [address] [place], [address] CO2 [Moles/Vol] 26.8 mmol/L Normal 21.0-32.0 [facility] Comment on above: Performed By: #### L 500.2500 #### [facility] [address] [place], [address] Creatinine [Mass/Vol] 1.12 mg/dL Normal 0.70-1.20 [facility] Comment on above: Performed By: #### L 500.2500 #### [facility] [address] [place], [address] GAP 11 Normal 12-19 [facility] Comment on above: Performed By: #### L 500.2500 #### [facility] [address] [place], [address] GFR/1.73 sq M.predicted among non-blacks MDRD (S/P/Bld) [Vol rate/Area] 57 mL/min/{1.73_m2} Low >60 [facility] Comment on above: Result Comment: mL/m in/1.73m2 CKD-EPI Creatinine Equation (2020) Performed By: #### L 500.2500 #### [facility] [address] [place], [address] Glucose [Mass/Vol] 93 mg/dL Normal 70-99 [facility] Comment on above: Performed By: #### L 500.2500 #### [facility] [address] [place], [address] Potassium [Moles/Vol] 4.3 mmol/L Normal 3.3-5.1 [facility] Comment on above: Performed By: #### L 500.2500 #### [facility] [address] [place], [address] Sodium [Moles/Vol] 139 mmol/L Normal 133-145 [facility] Comment on above: Performed By: #### L 500.2500 #### [facility] [address] [place], [address] Urea nitrogen [Mass/Vol] 14 mg/dL Normal 4-19 [facility] Comment on above: Performed By: #### L 500.2500 #### [facility] [address] [place], [address] Carbon dioxide, total [Moles /volume] in Central venous bloodOrdered By: Contreras Maxwell on 02-13-2025 CO2 [Moles/Vol] 26.8 mmol/L 21.0-32.0 [facility] Chloride assayOrdered By: Trice Maxwell on 02-13-2025 Chloride [Moles/Vol] 101 mmol/L 98-108 [facility] Glomerular filtration rate ( GFR) estimation/1.73 sq m using serum, plasma, or whole bOrdered By: Contreras Maxwell on 02-13-2025 GFR/1.73 sq M.predicted among non-blacks MDRD (S/P/Bld) [Vol rate/Area] 57 mL/min/{1.73_m2} Low >60 [facility] Comment on above: mL/min/1.73m2 CKD-EP I Creatinine Equation (2020) Pacemaker Checkon 02-13-2025 Pacemaker Check [facility] [address] [place] [address] Pacemaker Check Date of Service: 02/13/25 1353 MR#: [id number] Acct: [id number] Name: FROILAN GARCÍA Rep #: [id number] : 1965 From: Bernie Wallace Age/Sex: 59/F Location: [facility] Status: Signed Billing Codes PM Device Codes: 22904 PM Dev Prog Eval, Dual Assessment and Plan Assessment and Plan (1) Sick sinus syndrome: Status: Chronic (2) Presence of cardiac pacemaker: Status: Chronic Comment: Implanted 07/28/2009 then RV lead extraction and Generator Change on 07/04/2011, 09/21/2020 02/13/25 1356 Date Bernie Dobbs Signature: Date (if applicable) CC: Normal [facility] Potassium measurement (mass/ volume)Ordered By: Contreras Maxwell on 02-13-2025 Potassium (Unsp spec) [Mass/Vol] 4.3 mmol/L 3.3-5.1 [facility] Serum creatinine measurement (mass/volume)Ordered By: Contreras Maxwell on 02-13-2025 Creatinine [Mass/Vol] 1.12 mg/dL 0.70-1.20 [facility] Serum glucose measurement (m ass/volume)Ordered By: Contreras Maxwell on 02-13-2025 Glucose [Mass/Vol] 93 mg/dL 70-99 [facility] Serum or plasma calcium juli urement (mass/volume)Ordered By: Contreras Maxwell on 02-13-2025 Calcium [Mass/Vol] 9.8 mg/dL 7.6-11.0 [facility] Serum or plasma urea nitroge n measurement (mass/volume)Ordered By: Contreras Maxwell on 02-13-2025 Urea nitrogen [Mass/Vol] 14 mg/dL 4-19 [facility] Sodium levelOrdered By: Contreras Maxwell on 02-13-2025 Sodium [Moles/Vol] 139 mmol/L 133-145 [facility] CNPNon 02-11-2025 CNPN Telephone (INTMWS) -------- FROILAN GARCÍA ([id number]) 1965 F Date Time Provider Department 02/11/25 JUDY HAYWOOD INTMWS During your visit today, we recorded the following information about you: Judy Haywood APRN.CNP 02/11/2025 8:13 AM Signed Patient scheduled with me today at 1 pm for mobility exam for scooter. I just saw her for this last week, the forms can be completed from that encounter. Judy Haywood APRN.DANNY Allergies As of Date: 02/11/2025 Noted Allergy Reaction LISINOPRIL 12/19/2006 Comments: blood in urine,renal failure AMOXICILLIN 10/23/2018 4 - Hives CIPRO (CIPROFLOXACIN) 12/19/2006 2 - Rash 9 - Itching GABAPENTIN 01/07/2025 14 - Other: See Comments Comments: I don't like how it made me feel LATEX 04/10/2008 2 - Rash 7 - Swelling PENICILLINS 07/19/2016 4 - Hives VENOM-HONEY BEE 10/23/2018 7 - Swelling Date Reviewed: 02/04/2025 Reviewed by: Judy Haywood, BEATRICE.CONTRACT GRAPHIC DESIGNER - Fully Assessed Prescriptions as of 02/11/2025 - amLODIPine (NORVASC) 10 mg tablet Take 1 tablet by mouth once daily. - Cholecalciferol, Vitamin D3, 125 mcg (5,000 unit) cap Take 1 capsule by mouth once daily. - ferrous sulfate 325 mg (65 mg iron) tablet Take 1 tablet by mouth two times a day with meals. - pantoprazole DR (PROTONIX) 20 mg tablet Take 1 tablet by mouth daily before breakfast. Take on empty stomach, 1/2 hr before meal. - rosuvastatin (CRESTOR) 5 mg tablet Take 1 tablet by mouth once daily. - ascorbic acid, vitamin C, (VITAMIN C) 500 mg tablet Take 1 tablet by mouth two times a day. - nystatin (MYCOSTATIN) powder Apply 1 application to affected area four times a day as needed. - furosemide (LASIX) 40 mg tablet Take 40 mg by mouth once daily. - POTASSIUM-99 ORAL Take 99 mg by mouth once daily. - ELIQUIS 5 mg tab(s) Take 5 mg by mouth. - acetaminophen (TYLENOL) 500 mg tablet Take 1 tablet by mouth three times daily as needed for pain. Problem List As Of Date 02/11/2025 Noted Resolved Unspecified asthma(493.90) [J45.909] 12/19/2006 08/18/2015 Depressive disorder [F32.A] 12/19/2006 Agoraphobia with panic disorder [F40.01] 12/19/2006 05/11/2017 Tobacco use disorder [F17.200] 12/19/2006 06/17/2024 BENIGN HYPERTENSION [I10] 12/27/2006 11/23/2008 SUPRV HIGH-RISK PREG NOS [O09.90] 04/10/2008 09/09/2008 AMA MULTIGRAVID-ANTEPARTUM [O09.529] 09/09/2008 11/27/2008 SUPRF HIGH RISK NEC [O09.899] 09/09/2008 11/27/2008 Unspecified Backache [M54.9] 10/21/2008 06/29/2009 POOR GRTH-ANTEPART [O36.5990] 10/31/2008 11/27/2008 Acute, but ill-defined, cerebrovascular disease*11/07/2008 05/11/2017 Hypertension [I10] 11/23/2008 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 current use of anticoagulant therapy *11/23/2008 Mitral regurgitation [I34.0] 11/27/2008 Unspecified Anemia [D64.9] 12/01/2008 06/29/2009 Open Wound(s) (Multiple) of Unspecified Site(s)*12/01/2008 06/29/2009 Sick sinus syndrome (HCC) [I49.5] 08/27/2009 05/30/2016 Heart valve replaced by transplant [Z95.2] 10/22/2009 10/07/2010 SUMMARY [V999.95] 07/01/2011 05/08/2012 Pacemaker malfunction [T82.111A] 07/01/2011 07/25/2013 Heart valve replaced [Z95.2] 08/14/2013 Menorrhagia [N92.0] 08/14/2013 08/18/2015 Anemia [D64.9] 08/14/2013 05/11/2017 Paroxysmal atrial fibrillation (HCC) [I48.0] 10/31/2013 Psychosis (HCC) [F29] 10/01/2014 05/30/2016 Tardive dyskinesia [G24.01] 08/18/2015 Mass of sigmoid colon on CT scan [K63.89] 06/16/2016 12/08/2016 Asthma with chronic obstructive pulmonary disea*06/23/2016 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*05/11/2017 CKD (chronic kidney disease) stage 3, GFR 30-59*06/18/2018 Obesity, Class I, BMI 30-34.9 [E66.811] 11/12/2018 Urge incontinence [N39.41] 10/03/2019 Brain aneurysm [I67.1] 10/11/2020 Hemiparesis due to old cerebrovascular accident*10/17/2020 Malnutrition of mild degree (HCC) [E44.1] 10/19/2020 06/10/2021 Epistaxis [R04.0] 11/06/2020 06/14/2021 Unsteady gait [R26.81] 01/07/2021 Hypertensive kidney disease with stage 3 chroni*06/10/2021 Anxiety [F41.9] 10/24/2022 Gastroesophageal reflux disease without esophag*10/24/2022 Hyperlipidemia [E78.5] 10/24/2022 Dementia (HCC) [F03.90] 06/17/2024 Encounter Status:Closed by JUDY HAYWOOD on 02/11/25 Normal [facility] Telephone (INTMWS) -------- FROILAN GARCÍA ([id number]) 1965 F Date Time Provider Department 02/11/25 LOUIS ODBBS INTMWS During your visit today, we recorded the following information about you: Karen Durham LPN 02/11/2025 9:36 AM Signed PATIENT needs an other for a functional capacity test and needs scheduled as soon as we can. Please call patient when scheduled ANIL Babin Kim E, LPN 02/11/2025 11:05 AM Signed Order has been placed and filed and faxed to [facility] to schedule locally for functional capacity testing. [facility] to call patient with appt. Karen Durham LPN [facility] Jolie 03/10/2025 8:51 AM Signed Per patient she did the FCE, functional capacity at [facility] in [place] and we were to have had this faxed to us by them. Patient is checking the status if we have received the results from last week? Please call patient with update, Sabine Smyth LPN 03/10/2025 10:14 AM Signed Rec'd and the provider has reviewed and completed forms the motorized transport. Message left to pt with info. Leigh Dotson RN 03/10/2025 10:59 AM Signed Pt given update that her [employer] paperwork has been completed by provider. Please fax to [employer] at FAX #: [phone]. PRAVIN Lopez Elizabeth, MA 03/10/2025 11:00 AM Signed Paperwork was already faxed Frances Peterson MA Allergies As of Date: 02/11/2025 Noted Allergy Reaction LISINOPRIL 12/19/2006 Comments: blood in urine,renal failure AMOXICILLIN 10/23/2018 4 - Hives CIPRO (CIPROFLOXACIN) 12/19/2006 2 - Rash 9 - Itching GABAPENTIN 01/07/2025 14 - Other: See Comments Comments: I don't like how it made me feel LATEX 04/10/2008 2 - Rash 7 - Swelling PENICILLINS 07/19/2016 4 - Hives VENOM-HONEY BEE 10/23/2018 7 - Swelling Date Reviewed: 02/04/2025 Reviewed by: Judy Haywood APRN.CONTRACT GRAPHIC DESIGNER - Fully Assessed Reason for Visit: Functional Capacity Eval [3549] Cmt: channing stated that she needs a functional capacity test Primary Visit Diagnosis:Abnormality of gait as late effect of stroke [I69.398, R26.9] Other Visit Diagnoses:Hemiparesis due to old cerebrovascular accident (HCC) [I69.359] Brain aneurysm (HCC) [I67.1] Impaired mobility and ADLs [Z74.09, Z78.9] Frequent falls [R29.6] Encounter for risk and functional assessment [Z13.9] Order(s):CONSULT TO PHYSICAL THERAPY [9032] Order #: [id number]: 1 FUTURE Prescriptions as of 03/10/2025 - amLODIPine (NORVASC) 10 mg tablet Take 1 tablet by mouth once daily. - Cholecalciferol, Vitamin D3, 125 mcg (5,000 unit) cap Take 1 capsule by mouth once daily. - ferrous sulfate 325 mg (65 mg iron) tablet Take 1 tablet by mouth two times a day with meals. - pantoprazole DR (PROTONIX) 20 mg tablet Take 1 tablet by mouth daily before breakfast. Take on empty stomach, 1/2 hr before meal. - rosuvastatin (CRESTOR) 5 mg tablet Take 1 tablet by mouth once daily. - ascorbic acid, vitamin C, (VITAMIN C) 500 mg tablet Take 1 tablet by mouth two times a day. - nystatin (MYCOSTATIN) powder Apply 1 application to affected area four times a day as needed. - furosemide (LASIX) 40 mg tablet Take 40 mg by mouth once daily. - POTASSIUM-99 ORAL Take 99 mg by mouth once daily. - ELIQUIS 5 mg tab(s) Take 5 mg by mouth. - acetaminophen (TYLENOL) 500 mg tablet Take 1 tablet by mouth three times daily as needed for pain. Problem List As Of Date 02/11/2025 Noted Resolved Unspecified asthma(493.90) [J45.909] 12/19/2006 08/18/2015 Depressive disorder [F32.A] 12/19/2006 Agoraphobia with panic disorder [F40.01] 12/19/2006 05/11/2017 Tobacco use disorder [F17.200] 12/19/2006 06/17/2024 BENIGN HYPERTENSION [I10] 12/27/2006 11/23/2008 SUPRV HIGH-RISK PREG NOS [O09.90] 04/10/2008 09/09/2008 AMA MULTIGRAVID-ANTEPARTUM [O09.529] 09/09/2008 11/27/2008 SUPRF HIGH RISK NEC [O09.899] 09/09/2008 11/27/2008 Unspecified Backache [M54.9] 10/21/2008 06/29/2009 POOR GRTH-ANTEPART [O36.5990] 10/31/2008 11/27/2008 Acute, but ill-defined, cerebrovascular disease*11/07/2008 05/11/2017 Hypertension [I10] 11/23/2008 retirement current use of anticoagulant therapy *11/23/2008 Mitral regurgitation [I34.0] 11/27/2008 Unspecified Anemia [D64.9] 12/01/2008 06/29/2009 Open Wound(s) (Multiple) of Unspecified Site(s)*12/01/2008 06/29/2009 Sick sinus syndrome (HCC) [I49.5] 08/27/2009 05/30/2016 Heart valve replaced by transplant [Z95.2] 10/22/2009 10/07/2010 SUMMARY [V999.95] 07/01/2011 05/08/2012 Pacemaker malfunction [T82.111A] 07/01/2011 07/25/2013 Heart valve replaced [Z95.2] 08/14/2013 Menorrhagia [N92.0] 08/14/2013 08/18/2015 Anemia [D64.9] 08/14/2013 05/11/2017 Paroxysmal atrial fibrillation (HCC) [I48.0] 10/31/2013 Psychosis (HCC) [F29] 10/01/2014 05/30/2016 Tardive dyskinesia [G24.01] 08/18/2015 Mass of sigmoid colon on CT scan [K63.89] 06/07 (more content not included)... Normal [facility] CNOVon 02-04-2025 CNOV Office Visit (INTMWS ) -------- FROILAN GARCÍA ([id number]) 1965 F Date Time Provider Department 02/04/25 1:00 PM JUDY HAYWOOD INTMWS During your visit today, we recorded the following information about you: Pulse Respiration Blood pressure Weight 92/minute 14/minute 110/68 85.9 kg Height 1.626 m Judy Haywood, HYBRID TESTER.CONTRACT GRAPHIC DESIGNER 02/11/2025 10:55 AM Addendum CC: Patient presents with: Neuropathy: Bilateral foot pain, and strokes discuss getting scooter HPI Recording using [employer] software for draft documentation of the visit was discussed with the patient/authorized customer retention representative; all questions welcomed and answered. Patient/authorized customer retention representative agreed to proceed Froilan García is a 59-year-old female with a history of CVA, neuropathy, and tardive dyskinesia, presenting for mobility exam in consideration for a scooter. Froilan reports significant mobility challenges within her home, attributing her difficulties to a history of CVA, neuropathy, and residual effects from brain aneurysm clips. She experiences right-sided weakness and paralysis secondary to the CVA, which affects her ability to move around her home safely. Froilan also has a history of tardive dyskinesia, affecting her hand movements. She is currently utilizing a cane for ambulation however finds it difficult secondary to tardive dyskinesia and right sided residual weakness. She notes that her mobility issues have progressively worsened leading to multiple falls while trying to navigate her house even when using the cane. Froilan requires assistance with activities of daily living (ADLs) such as cooking and bathing. She is unable to cook due to instability at the stove and cannot shower independently, requiring the presence of a nurse for safety. She denies any pressure ulcers on her bottom and is able to shift her weight independently when sitting. She is also able to safely transfer herself to and from equipment. Froilan experiences leg pain, describing it as achy, stabbing needles in her ankles. She has been using lidocaine on the bottom of her feet at night, which she finds helpful. She is not currently seeing a neurologist and mentions that she would have to leave her current location to do so, which is a barrier for her. Pain is also affecting her mobility. Review of Systems See HPI PAST MEDICAL HISTORY Diagnosis Date Acute kidney failure 2004 LISINOPRIL related. Acute, but ill-defined, cerebrovascular disease 11/07/2008 Right hemiparesis, embolic Agoraphobia with panic disorder 12/19/2006 Counselor from [facility] Anemia 2013 Asthma with COPD with exacerbation ([facility]) Bipolar disorder ([facility]) 2000 Cerebral aneurysm ([facility]) 10/11/2020 Chronic diarrhea 07/12/2016 Chronic rheumatic endocarditis 11/07/2008 Treated for Infective endocarditis Congestive heart failure (HCC) COVID-19 02/2022 CVA (cerebral vascular accident) (HCC) 10/11/2020 Depressive disorder, not elsewhere classified 12/19/2006 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ident (CVA) 05/11/2017 Essential hypertension 11/23/2008 Gastroesophageal reflux disease without esophagitis Generalized anxiety disorder Anxiety, Generalized 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 Presumed nfective endocarditis, treated with IV antibiotics, complicated by a stroke. Underwent MVR (#27 [employer] Velasco bioprosthesis) with Dr Stephan Morales at [facility] on 07/23/2009. Moderate dysplasia of cervix Other and unspecified mitral valve diseases 11/27/2008 Rheumatic valvular heart disease. Pacemaker malfunction 07/01/2011 Paroxysmal atrial fibrillation (HCC) 10/31/2013 Primary hypertension Psychosis ([facility]) 10/01/2014 Dr. Jon[facility]ulk[facility] Trilafon at . Sick sinus syndrome (HCC) 2009 PPM Sigmoid diverticulitis 08/11/2016 colon narrowing, resected Tardive dyskinesia 08/18/2015 Tobacco use disorder 12/19/2006 Unspecified asthma(493.90) 12/19/2006 Unspecified essential hypertension 11/23/2008 Unspecified urinary incontinence PAST SURGICAL HISTORY Procedure Laterality Date DELIVERY ONLY 11/2008 , low cervical COLECTOMY PRTL W/COLOPROCTOSTOMY 08/11/2016 COLONOSCOPY FLX DX W/COLLJ SPEC WHEN PFRMD 12/22/2014 Repeat 2024 COLONOSCOPY FLX DX W/COLLJ SPEC WHEN PFRMD 07/12/2016 repeat colonoscopy in one year CONIZATION CERVIX W/WO DANDC RPR ELTRD EXC 1996 CYSTOURETHROSCOPY [address] Freire EGD 02/22/2022 erosive esophagitis, gastritis, mu (more content not included)... Normal [facility] CNPNon 02-04-2025 CNPN Telephone (INTMWS) -------- FROILAN GARCÍA ([id number]) 1965 F Date Time Provider Department 02/04/25 JUDY HAYWOOD INTMWS During your visit today, we recorded the following information about you: Kristy Blanco RN 02/04/2025 3:19 PM Signed Patient calls to let provider know that her orders for power operated vehicle needs to be sent to [facility]. She has checked with insurance and the chair would be covered through them. Patient requests orders be faxed with a note saying their billing needs to go through [facility] Medicaid. Faxed with request to [phone]. Confirmation that fax when through received. PH: [phone]. Nothing further needed at this time. Closing TE. Kristy Blanco RN Allergies As of Date: 02/04/2025 Noted Allergy Reaction LISINOPRIL 12/19/2006 Comments: blood in urine,renal failure AMOXICILLIN 10/23/2018 4 - Hives CIPRO (CIPROFLOXACIN) 12/19/2006 2 - Rash 9 - Itching GABAPENTIN 01/07/2025 14 - Other: See Comments Comments: I don't like how it made me feel LATEX 04/10/2008 2 - Rash 7 - Swelling PENICILLINS 07/19/2016 4 - Hives VENOM-HONEY BEE 10/23/2018 7 - Swelling Date Reviewed: 02/04/2025 Reviewed by: Judy Haywood APRN.CONTRACT GRAPHIC DESIGNER - Fully Assessed Reason for Visit: Orders [681] Prescriptions as of 02/04/2025 - amLODIPine (NORVASC) 10 mg tablet Take 1 tablet by mouth once daily. - Cholecalciferol, Vitamin D3, 125 mcg (5,000 unit) cap Take 1 capsule by mouth once daily. - ferrous sulfate 325 mg (65 mg iron) tablet Take 1 tablet by mouth two times a day with meals. - pantoprazole DR (PROTONIX) 20 mg tablet Take 1 tablet by mouth daily before breakfast. Take on empty stomach, 1/2 hr before meal. - rosuvastatin (CRESTOR) 5 mg tablet Take 1 tablet by mouth once daily. - ascorbic acid, vitamin C, (VITAMIN C) 500 mg tablet Take 1 tablet by mouth two times a day. - nystatin (MYCOSTATIN) powder Apply 1 application to affected area four times a day as needed. - furosemide (LASIX) 40 mg tablet Take 40 mg by mouth once daily. - POTASSIUM-99 ORAL Take 99 mg by mouth once daily. - ELIQUIS 5 mg tab(s) Take 5 mg by mouth. - acetaminophen (TYLENOL) 500 mg tablet Take 1 tablet by mouth three times daily as needed for pain. Problem List As Of Date 02/04/2025 Noted Resolved Unspecified asthma(493.90) [J45.909] 12/19/2006 08/18/2015 Depressive disorder [F32.A] 12/19/2006 Agoraphobia with panic disorder [F40.01] 12/19/2006 05/11/2017 Tobacco use disorder [F17.200] 12/19/2006 06/17/2024 BENIGN HYPERTENSION [I10] 12/27/2006 11/23/2008 SUPRV HIGH-RISK PREG NOS [O09.90] 04/10/2008 09/09/2008 AMA MULTIGRAVID-ANTEPARTUM [O09.529] 09/09/2008 11/27/2008 SUPRF HIGH RISK NEC [O09.899] 09/09/2008 11/27/2008 Unspecified Backache [M54.9] 10/21/2008 06/29/2009 POOR GRTH-ANTEPART [O36.5990] 10/31/2008 11/27/2008 Acute, but ill-defined, cerebrovascular disease*11/07/2008 05/11/2017 Hypertension [I10] 11/23/2008 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 current use of anticoagulant therapy *11/23/2008 Mitral regurgitation [I34.0] 11/27/2008 Unspecified Anemia [D64.9] 12/01/2008 06/29/2009 Open Wound(s) (Multiple) of Unspecified Site(s)*12/01/2008 06/29/2009 Sick sinus syndrome (HCC) [I49.5] 08/27/2009 05/30/2016 Heart valve replaced by transplant [Z95.2] 10/22/2009 10/07/2010 SUMMARY [V999.95] 07/01/2011 05/08/2012 Pacemaker malfunction [T82.111A] 07/01/2011 07/25/2013 Heart valve replaced [Z95.2] 08/14/2013 Menorrhagia [N92.0] 08/14/2013 08/18/2015 Anemia [D64.9] 08/14/2013 05/11/2017 Paroxysmal atrial fibrillation (HCC) [I48.0] 10/31/2013 Psychosis (HCC) [F29] 10/01/2014 05/30/2016 Tardive dyskinesia [G24.01] 08/18/[address] Mass of sigmoid colon on CT scan [K63.89] 06/16/2016 12/08/2016 Asthma with chronic obstructive pulmonary disea*06/23/2016 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*05/11/2017 CKD (chronic kidney disease) stage 3, GFR 30-59*06/18/2018 Obesity, Class I, BMI 30-34.9 [E66.811] 11/12/2018 Urge incontinence [N39.41] 10/03/2019 Brain aneurysm [I67.1] 10/11/2020 Hemiparesis due to old cerebrovascular accident*10/17/2020 Malnutrition of mild degree (HCC) [E44.1] 10/19/2020 06/10/2021 Epistaxis [R04.0] 11/06/2020 06/14/2021 Unsteady gait [R26.81] 01/07/2021 Hypertensive kidney disease with stage 3 chroni*06/10/2021 Anxiety [F41.9] 10/24/2022 Gastroesophageal reflux disease without esophag*10/24/2022 Hyperlipidemia [E78.5] 10/24/2022 Dementia (HCC) [F03.90] 06/17/2024 Encounter Status:Closed by KRISTY BLANCO on 02/04/25 Normal [facility] Brain/Head without Contrasto n 01-13-2025 Brain/Head without Contrast [facility] Imaging Services [address] [place] [id number] Brain/Head without Contrast MR#: [id number] Acct: [id number] Name: FROILAN GARCÍA Rep #: [id number] : 1965 F 59 From: Miguel ryan MD PCP: Dr. Louis Dobbs MD Status: PRE ER Study: Brain/Head without Contrast Date of Exam: 05/01 Exam# [id number] Ordering Dr: Hermila Blue DO PROCEDURE: BRAIN/HEAD WITHOUT CONTRAST 01/13/2025 REASON FOR EXAM: HEAD INJURY TECHNIQUE: Head CT without intravenous contrast. Coronal and Sagittal reconstruction series were provided. One or more dose reduction techniques were used (e.g., Automated exposure control, adjustment of the mA and/or kV according to patient size, use of iterative reconstruction technique. RADIATION DOSE SUMMARY: CTDlvol: 47.06 mGy DLP: 890.33 mGycm COMPARISON: None FINDINGS: Brain: Low density in the periventricular white matter suggests mild chronic small vessel ischemic changes. Evidence of prior aneurysmal clipping in the region of the bwenug-fi-Zncoue as well as the basilar tip. This causes beam hardening artifact. Old bilateral cortical infarcts. CSF Spaces: Moderate generalized cerebral atrophy Sinuses/Mastoids: Unremarkable Bones: Unremarkable CT/Brain/Head without Contrast IMPRESSION: CHRONIC CHANGES. NO ACUTE FINDINGS. Prior aneurysmal clipping in the region of the ozkbgi-ni-Hvchvd as well as the basilar tip. Reading Location: [place] [address] CC: Dr. Hermila Blue DO; Dr. Louis Dobbs MD Baster Hand: Signed Normal [facility] Emergency Department Summary on 01-13-2025 Emergency Department Summary [facility] Medical Records Department [address] [place] [address] Emergency Department Summary 01/13/25 MR#: [id number] Acct: [id number] Name: FROILAN GARCÍA Rep #: [id number] : 1965 59 From: Hermila Blue DO PCP: Dr. Louis Dobbs MD Status:DEP ER Location: ED HPI History of Present Illness Chief Complaint: Fall Informant: patient Narrative Narrative: Patient is a 59-year-old female with history of stroke, brain aneurysm, bipolar disorder, COPD, schizophrenia, nonischemic cardiomyopathy and dysphagia associated with a prior stroke presenting for evaluation after fall. Patient is chronically anticoagulated on Eliquis. She states this morning she went to turn of events in the kitchen lost her balance and fell backwards hitting the back of her head against a door handle. She denies any associated loss of conscious. Afterward she did have an episode of vomiting and chest pain. She notes since then she has had intermittent nausea and headache. She did take Tylenol for her headache around 10 AM. Her family wanted her to come in. Patient does note that she recently was started on gabapentin for peripheral neuropathy. She states since then she has had more gait and balance issues and stopped taking it last week. She was then started on amitriptyline for her neuropathy. She does not feel like her imbalance is getting any better. She is plan on stopping her amitriptyline as well. She states she follows with her primary care doctor closely. She has no other complaints or concerns at this time. [facility] Medical History Tricuspid insufficiency Tobacco use retirement current use of anticoagulant Tardive dyskinesia Brain aneurysm CKD (chronic kidney disease) Mitral regurgitation Depressive disorder Unsteady gait Hemiparesis due to old cerebrovascular accident Acute UTI Anemia Bipolar disorder COPD (chronic obstructive pulmonary disease) AAA (abdominal aortic aneurysm) 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 Schizophrenia Anxiety Former smoker Stroke/cerebrovascular accident Non-ischemic cardiomyopathy 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 classified elsewhere Sick sinus syndrome Asthma Dysphagia as late effect of cerebrovascular accident (CVA) CVA (cerebral vascular accident) Home Medications ???Medication ???Instructions ???Recorded ???Last Taken ???Type cholecalciferol (vitamin D3) 125 125 mcg PO DAILY supplement 02/16/22 History mcg (5,000 unit) capsule rosuvastatin 5 mg tablet 5 mg PO QHS CHOLESTEROL 12/14/21 0 02/10/22 History acetaminophen 500 mg tablet 500 mg PO Q6H PRN pain/fever 02/16 Unknown History amlodipine 10 mg tablet 10 mg PO DAILY HTN 02/16/22 History ferrous sulfate 325 mg (65 mg 325 mg PO BID 10/14/22 Unknown His tory iron) tablet ascorbate calcium (vitamin C) 500 500 mg PO QDAY 06/05/24 Unknown H istory mg tablet furosemide 40 mg tablet (Lasix) 40 mg PO QDAY #90 tabs 06/05/24 Un known Rx pantoprazole 20 mg tablet,delayed 20 mg PO QDAY 06/05/24 Unknown Hi story release potassium chloride 20 mEq 20 meq PO QDAY K+ was low on the 1 08/14/23 Unknown Rx tablet,extended release 595 KCL #30 tabs apixaban 5 mg tablet (Eliquis) 5 mg PO BID #60 tabs 08/29/24 Unkn own Rx ondansetron 4 mg disintegrating 4 mg PO Q8H PRN nausea and 5 Unknown Rx tablet vomiting #10 tabs Allergy/AdvReac Type Severity Reaction Status Date / Time amoxicillin (Amoxicillin) Allergy Hives Verified 01/13/25 13:42 latex Allergy Rash Verified 01/13/25 13:42 lisinopril Allergy Unknown Verified 01/13/25 13:42 Penicillins Allergy Hives Verified 01/13/25 13:42 venom-honey bee (bee venom Allergy Swelling Verified 01/13/25 13:42 (honey bee)) ciprofloxacin (From Cipro) AdvReac Nausea/Vom/ Verified 01/13/25 13:42 Diarrhea Surgical History History of partial colectomy History of Presence of cardiac pacemaker (09/21/20) History of mitral valve replacement with bioprosthetic valve (07/23/09) Social History household members: children housing: apartment current occupational status: unemployed Smoking Status: Current every day smoker tobacco type: e-cigarettes second hand exposure: Yes alcohol intake: current alcohol intake frequency: holidays/special occasions only details: RARELY substance use type: does not use caffeine: Yes Type: carbonated beverages Number of servings: 1 what type of physical activity do you participate in: none seatbelt use: always ROS ROS ED Constitutional Constitutional ED: Denies chills or fever(s) ENT ENT ED: Reports other Det (more content not included)... [facility] Spine Cervical without Contr ason 01-13-2025 Spine Cervical without Contras [facility] Imaging Services [address] [place] [address] Spine Cervical without Contras MR#: [id number] Acct: [id number] Name: FROILAN GARCÍA Rep #: [id number] : 1965 F 59 From: Cinda Lilly nd, MD PCP: Dr. Louis Dobbs MD Status: PRE ER Study: Spine Cervical without Contras Date of Exam: 0 01/13/25 Exam# [id number] Ordering Dr: Hermila Blue DO PROCEDURE: SPINE CERVICAL WITHOUT CONTRAS 01/13/2025 REASON FOR EXAM: HEAD INJURY TECHNIQUE: Cervical spine CT without contrast. Coronal and Sagittal reconstruction series were provided. One or more dose reduction techniques were used (e.g., Automated exposure control, adjustment of the mA and/or kV according to patient size, use of iterative reconstruction technique RADIATION DOSE SUMMARY: CTDlvol: 18 mGy DLP: 370 mGycm COMPARISON: Same-day CT head, CTA head and neck 10/08/2020. FINDINGS: Alignment: Mild straightening of the normal cervical lordosis. No traumatic listhesis. Vertebrae: No acute fracture. Mild multilevel vertebral body height loss. Moderate multilevel degenerative disc disease with posterior disc osteophyte complexes and uncovertebral and facet hypertrophy resulting in mild multilevel central and moderate multilevel neural foraminal stenosis. Soft Tissues: No prevertebral or subcutaneous hematoma. Partially visualized left chest wall pacemaker device. Partially visualized coil embolization of the basilar tip. CT/Spine Cervical without Contras IMPRESSION: NO ACUTE CERVICAL FRACTURE. DEGENERATIVE CHANGES. Reading Location: [id number] CC: Dr. Hermila Blue DO; Dr. Louis Dobbs MD Baster Hand: Signed [facility] 01-09-2025 [facility] Telephone (INTMWS) -------- FROILAN GARCÍA ([id number]) 1965 F Date Time Provider Department 01/09/25 [facility] DOBBS INTWS During your visit today, we recorded the following information about you: Melanie Vences RN 01/09/2025 1:59 PM Signed Patient calls and states that she is now in a new apartment. Patient states that she is needing a letter that states that she can have a dog and a cat due to them being a emotional support animal. Patient asking if letter can be mailed out to her? Please review and advise, PRAVIN Russell Victor H, MD 01/10/2025 1:33 PM Signed Letter printed. Frances Peterson MA 01/10/2025 2:20 PM Signed Mailed letter to patient Frances Peterson MA Allergies As of Date: 01/09/2025 Noted Allergy Reaction LISINOPRIL 12/19/2006 Comments: blood in urine,renal failure AMOXICILLIN 10/23/2018 4 - Hives CIPRO (CIPROFLOXACIN) 12/19/2006 2 - Rash 9 - Itching GABAPENTIN 01/07/2025 14 - Other: See Comments Comments: I don't like how it made me feel LATEX 04/10/2008 2 - Rash 7 - Swelling PENICILLINS 07/19/2016 4 - Hives VENOM-HONEY BEE 10/23/2018 7 - Swelling Date Reviewed: 12/16/2024 Reviewed by: Angel Pickett APRN.MAINTENANCE ELECTRICIAN - Fully Assessed Reason for Visit: Letter [264] Prescriptions as of 01/10/2025 - amitriptyline (ELAVIL) 10 mg tablet Take 1 tablet by mouth daily at bedtime. - amLODIPine (NORVASC) 10 mg tablet Take 1 tablet by mouth once daily. - Cholecalciferol, Vitamin D3, 125 mcg (5,000 unit) cap Take 1 capsule by mouth once daily. - ferrous sulfate 325 mg (65 mg iron) tablet Take 1 tablet by mouth two times a day with meals. - pantoprazole DR (PROTONIX) 20 mg tablet Take 1 tablet by mouth daily before breakfast. Take on empty stomach, 1/2 hr before meal. - rosuvastatin (CRESTOR) 5 mg tablet Take 1 tablet by mouth once daily. - ascorbic acid, vitamin C, (VITAMIN C) 500 mg tablet Take 1 tablet by mouth two times a day. - nystatin (MYCOSTATIN) powder Apply 1 application to affected area four times a day as needed. - furosemide (LASIX) 40 mg tablet Take 40 mg by mouth once daily. - POTASSIUM-99 ORAL Take 99 mg by mouth once daily. - ELIQUIS 5 mg tab(s) Take 5 mg by mouth. - acetaminophen (TYLENOL) 500 mg tablet Take 1 tablet by mouth three times daily as needed for pain. Problem List As Of Date 01/09/2025 Noted Resolved Unspecified asthma(493.90) [J45.909] 12/19/2006 08/18/2015 Depressive disorder [F32.A] 12/19/2006 Agoraphobia with panic disorder [F40.01] 12/19/2006 05/11/2017 Tobacco use disorder [F17.200] 12/19/2006 06/17/2024 BENIGN HYPERTENSION [I10] 12/27/2006 11/23/2008 SUPRV HIGH-RISK PREG NOS [O09.90] 04/10/2008 09/09/2008 AMA MULTIGRAVID-ANTEPARTUM [O09.529] 09/09/2008 11/27/2008 SUPRF HIGH RISK NEC [O09.899] 09/09/2008 11/27/2008 Unspecified Backache [M54.9] 10/21/2008 06/29/2009 POOR GRTH-ANTEPART [O36.5990] 10/31/2008 11/27/2008 Acute, but ill-defined, cerebrovascular disease*11/07/2008 05/11/2017 Hypertension [I10] 11/23/2008 retirement current use of anticoagulant therapy *11/23/2008 Mitral regurgitation [I34.0] 11/27/2008 Unspecified Anemia [D64.9] 12/01/2008 06/29/2009 Open Wound(s) (Multiple) of Unspecified Site(s)*12/01/2008 06/29/2009 Sick sinus syndrome (HCC) [I49.5] 08/27/2009 05/30/2016 Heart valve replaced by transplant [Z95.2] 10/22/2009 10/07/2010 SUMMARY [V999.95] 07/01/2011 05/08/2012 Pacemaker malfunction [T82.111A] 07/01/2011 07/25/2013 Heart valve replaced [Z95.2] 08/14/2013 Menorrhagia [N92.0] 08/14/2013 08/18/2015 Anemia [D64.9] 08/14/2013 05/11/2017 Paroxysmal atrial fibrillation (HCC) [I48.0] 10/31/2013 Psychosis (HCC) [F29] 10/01/2014 05/30/2016 Tardive dyskinesia [G24.01] 08/18/2015 Mass of sigmoid colon on CT scan [K63.89] 06/16/2016 12/08/2016 Asthma with chronic obstructive pulmonary disea*06/23/2016 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*05/11/2017 CKD (chronic kidney disease) stage 3, GFR 30-59*06/18/2018 Obesity, Class I, BMI 30-34.9 [E66.811] 11/12/2018 Urge incontinence [N39.41] 10/03/2019 Brain aneurysm [I67.1] 10/11/2020 Hemiparesis due to old cerebrovascular accident*10/17/2020 Malnutrition of mild degree (HCC) [E44.1] 10/19/2020 06/10/2021 Epistaxis [R04.0] 11/06/2020 06/14/2021 Unsteady gait [R26.81] 01/07/2021 Hypertensive kidney disease with stage 3 chroni*06/10/2021 Anxiety [F41.9] 10/24/2022 Gastroesophageal reflux disease without esophag*10/24/2022 Hyperlipidemia [E78.5] 10/24/2022 Dementia (HCC) [F03.90] 06/17/2024 Letter Text Encounter Status:Closed by FRANCES PETERSON on 01/10/25 [facility] 01-07-2025 CNPN Telephone (INTMWS) -------- FROILAN GARCÍA ([id number]) 1965 F Date Time Provider Department 01/07/25 [facility] DOBBS INTWS During your visit today, we recorded the following information about you: Melanie Vencse RN 01/07/2025 9:46 AM Signed Patient calls and wanted provider to know that she is no longer taking the Gabapentin. Patient reports that she does not like how it made her feel. PRAVIN Russell Naz M, APRN.CONTRACT GRAPHIC DESIGNER 01/07/2025 10:00 AM Signed Noted. Does she want to try something else for the nerve pain? We had discussed a medication called Elavil (amitriptyline) previously. Judy Haywood APRN.Frances Tenorio MA 01/07/2025 10:26 AM Signed Patient was notified and willing to try amitriptyline. Said gabapentin took nerve pain away but made dizzy ALBERTA Rice Naz M, APRN.CONTRACT GRAPHIC DESIGNER 01/07/2025 1:19 PM Signed I am going to start her on the lowest dose at 10 mg to minimize the chance of side effects, take at bedtime. This medication may not work as quickly as Gabapentin but the dose can be increased every 1-2 weeks. Call in two weeks if medication is not effective Judy Haywood APRN.Frances Tenorio MA 01/07/2025 2:14 PM Signed Patient was notified Frances Peterson MA Allergies As of Date: 01/07/2025 Noted Allergy Reaction LISINOPRIL 12/19/2006 Comments: blood in urine,renal failure AMOXICILLIN 10/23/2018 4 - Hives CIPRO (CIPROFLOXACIN) 12/19/2006 2 - Rash 9 - Itching GABAPENTIN 01/07/2025 14 - Other: See Comments Comments: I don't like how it made me feel LATEX 04/10/2008 2 - Rash 7 - Swelling PENICILLINS 07/19/2016 4 - Hives VENOM-HONEY BEE 10/23/2018 7 - Swelling Date Reviewed: 12/16/2024 Reviewed by: Angel Pickett APRN.MAINTENANCE ELECTRICIAN - Fully Assessed Reason for Visit: Patient Update [1234] Order(s):amitriptyline (ELAVIL) 10 mg tabletTake 1 tablet by mouth daily at bedtime.Disp: 30 tabletRfl: 1 Prescriptions as of 01/07/2025 - amitriptyline (ELAVIL) 10 mg tablet Take 1 tablet by mouth daily at bedtime. - amLODIPine (NORVASC) 10 mg tablet Take 1 tablet by mouth once daily. - Cholecalciferol, Vitamin D3, 125 mcg (5,000 unit) cap Take 1 capsule by mouth once daily. - ferrous sulfate 325 mg (65 mg iron) tablet Take 1 tablet by mouth two times a day with meals. - pantoprazole DR (PROTONIX) 20 mg tablet Take 1 tablet by mouth daily before breakfast. Take on empty stomach, 1/2 hr before meal. - rosuvastatin (CRESTOR) 5 mg tablet Take 1 tablet by mouth once daily. - ascorbic acid, vitamin C, (VITAMIN C) 500 mg tablet Take 1 tablet by mouth two times a day. - nystatin (MYCOSTATIN) powder Apply 1 application to affected area four times a day as needed. - furosemide (LASIX) 40 mg tablet Take 40 mg by mouth once daily. - POTASSIUM-99 ORAL Take 99 mg by mouth once daily. - ELIQUIS 5 mg tab(s) Take 5 mg by mouth. - acetaminophen (TYLENOL) 500 mg tablet Take 1 tablet by mouth three times daily as needed for pain. Medication notes this encounter GABAPENTIN 100 MG CAPSULE >> Judy Haywood, HYBRID TESTER.CONTRACT GRAPHIC DESIGNER 01/07/2025 9:57 AM side effects Problem List As Of Date 01/07/2025 Noted Resolved Unspecified asthma(493.90) [J45.909] 12/19/2006 08/18/2015 Depressive disorder [F32.A] 12/19/2006 Agoraphobia with panic disorder [F40.01] 12/19/2006 05/11/2017 Tobacco use disorder [F17.200] 12/19/2006 06/17/2024 BENIGN HYPERTENSION [I10] 12/27/2006 11/23/2008 SUPRV HIGH-RISK PREG NOS [O09.90] 04/10/2008 09/09/2008 AMA MULTIGRAVID-ANTEPARTUM [O09.529] 09/09/2008 11/27/2008 SUPRF HIGH RISK NEC [O09.899] 09/09/2008 11/27/2008 Unspecified Backache [M54.9] 10/21/2008 06/29/2009 POOR GRTH-ANTEPART [O36.5990] 10/31/2008 11/27/2008 Acute, but ill-defined, cerebrovascular disease*11/07/2008 05/11/2017 Hypertension [I10] 11/23/2008 retirement current use of anticoagulant therapy *11/23/2008 Mitral regurgitation [I34.0] 11/27/2008 Unspecified Anemia [D64.9] 12/01/2008 06/29/2009 Open Wound(s) (Multiple) of Unspecified Site(s)*12/01/2008 06/29/2009 Sick sinus syndrome (HCC) [I49.5] 08/27/2009 05/30/2016 Heart valve replaced by transplant [Z95.2] 10/22/2009 10/07/2010 SUMMARY [V999.95] 07/01/2011 05/08/2012 Pacemaker malfunction [T82.111A] 07/01/2011 07/25/2013 Heart valve replaced [Z95.2] 08/14/2013 Menorrhagia [N92.0] 08/14/2013 08/18/2015 Anemia [D64.9] 08/14/2013 05/11/2017 Paroxysmal atrial fibrillation (HCC) [I48.0] 10/31/2013 Psychosis (HCC) [F29] 10/01/2014 05/30/2016 Tardive dyskinesia [G24.01] 08/18/2015 Mass of sigmoid colon on CT scan [K63.89] 06/16/2016 12/08/2016 Asthma with chronic obstructive pulmonary disea*06/23/2016 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*05/11/2017 CKD (chronic kidney disease) stage 3, GFR 30-59*06/18/2018 Obesity, Class I, BMI 30-34.9 [E66.811] 11/12/2018 Arsh boykin (more content not included)... Normal [facility] CNOVon 12-16-2024 CNOV Office Visit (INTMWS ) -------- CHESTERFROILAN KATZ Elmer ([id number]) 1965 F Date Time Provider Department 12/16/24 1:00 PM ANGEL PICKETT INTMWS During your visit today, we recorded the following information about you: Pulse Respiration Blood pressure Weight 74/minute 16/minute 106/72 90.9 kg Angel Pickett, BEATRICE.MAINTENANCE ELECTRICIAN 12/16/2024 2:03 PM Signed Subjective Patient ID: Froilan is a 59 year old female who presents for F/U 6 Month. HPI She notes that elevating her feet when seated has help with leg swelling. Current treatments have helped with leg pain. She started taking gabapentin today, first dose this morning, made her too groggy ROS +foot pain Objective BP 106/72 Pulse 74 Resp 16 Wt 90.9 kg (200 lb 6.4 oz) LMP (LMP Unknown) BMI 34.40 kg/m? Physical Exam Vitals and nursing note reviewed. Constitutional: Appearance: Normal appearance. HENT: Head: Normocephalic and atraumatic. Eyes: Conjunctiva/sclera: Conjunctivae normal. Cardiovascular: Rate and Rhythm: Normal rate and regular rhythm. Pulses: Carotid pulses are 2+ on the right side and 2+ on the left side. Radial pulses are 2+ on the right side and 2+ on the left side. Heart sounds: Normal heart sounds. Pulmonary: Effort: Pulmonary effort is normal. Abdominal: General: Bowel sounds are normal. Palpations: Abdomen is soft. Musculoskeletal: Right lower leg: No edema. Left lower leg: No edema. Feet: Comments: bilateral foot pain Skin: General: Skin is warm and dry. Neurological: General: No focal deficit present. Mental Status: She is alert. Latest Ref Rng 12/09/2024 Protein, Total 6.3 - 8.0 g/dL 7.2 Albumin 3.9 - 4.9 g/dL 4.3 Calcium 8.5 - 10.2 mg/dL 9.3 Bilirubin, Total 0.2 - 1.3 mg/dL 0.9 Alkaline Phosphatase 34 - 123 U/L 79 AST 13 - 35 U/L 23 ALT 7 - 38 U/L 10 Glucose 74 - 99 mg/dL 79 BUN 7 - 21 mg/dL 19 Creatinine 0.58 - 0.96 mg/dL 0.95 Sodium 136 - 144 mmol/L 141 Potassium 3.7 - 5.1 mmol/L 3.5 (L) Chloride 98 - 107 mmol/L 103 CO2 22 - 30 mmol/L 23 Anion Gap 8 - 15 mmol/L 15 eGFR >=60 mL/min/1.73m? 70 WBC 3.70 - 11.00 k/uL 7.72 RBC 3.90 - 5.20 m/uL 4.59 Hemoglobin 11.5 - 15.5 g/dL 14.0 Hematocrit 36.0 - 46.0 % 43.2 MCV 80.0 - 100.0 fL 94.1 MCH 26.0 - 34.0 pg 30.5 MCHC 30.5 - 36.0 g/dL 32.4 RDW-CV 11.5 - 15.0 % 13.3 Platelet Count 150 - 400 k/uL 187 MPV 9.0 - 12.7 fL 10.3 Absolute nRBC <0.01 k/uL <0.01 12/09/2024 4:21 PM - Radiology, [place] In Impression IMPRESSION: Negative study for proximal DVT in the left and right lower extremities. No gross calf DVT in the left and right lower extremities in their limited visualized segments. Negative study for superficial thrombophlebitis in the imaged segments of the left and right lower extremities. ASSESSMENT/PLAN: 1. Bilateral lower extremity pain - ICD9: 729.5, ICD10: M79.604, M79.605 (primary diagnosis) resolved 2. Pedal edema - ICD9: 782.3, ICD10: R60.0 Currently without leg swelling, endorse elevating feet when seated. Sqrn-aoq-huladjh compression socks may be considered if swelling returns. Wear when sitting or standing for prolonged periods. Angel Pickett APRN.MAINTENANCE ELECTRICIAN Medical Decision Making: Problems: Low: Stable chronic illness Data: Unique test result(s) reviewed: 2 Risk: Moderate: Drug management Medical Decision Making Level: 3 - Low Angel Pickett APRN.MAINTENANCE ELECTRICIAN 12/16/2024 1:35 PM Signed Take gabapentin at bedtime so you are not feeling drowsy during the day. Let us know in a couple of weeks how you are doing. Referring Provider: SELF [200] Allergies As of Date: 12/16/2024 Noted Allergy Reaction LISINOPRIL 12/19/2006 Comments: blood in urine,renal failure AMOXICILLIN 10/23/2018 4 - Hives CIPRO (CIPROFLOXACIN) 12/19/2006 2 - Rash 9 - Itching LATEX 04/10/2008 2 - Rash 7 - Swelling PENICILLINS 07/19/2016 4 - Hives VENOM-HONEY BEE 10/23/2018 7 - Swelling Date Reviewed: 12/16/2024 Reviewed by: Angel Pickett APRN.MAINTENANCE ELECTRICIAN - Fully Assessed Reason for Visit: F/U 6 Month [444] Primary Visit Diagnosis:Bilateral lower extremity pain [M79.604, M79.605] Other Visit Diagnosis:Pedal edema [R60.0] Prescriptions as of 12/16/2024 - gabapentin (NEURONTIN) 100 mg capsule Take 1 capsule by mouth once daily for 30 days. - amLODIPine (NORVASC) 10 mg tablet Take 1 tablet by mouth once daily. - Cholecalciferol, Vitamin D3, 125 mcg (5,000 unit) cap Take 1 capsule by mouth once daily. - ferrous sulfate 325 mg (65 mg iron) tablet Take 1 tablet by mouth two times a day with meals. - pantoprazole DR (PROTONIX) 20 mg tablet Take 1 tablet by mouth daily before breakfast. Take on empty stomach, 1/2 hr before meal. - rosuvastatin (CRESTOR) 5 mg tablet Take 1 tablet by mouth once daily. - ascorbic acid, vitamin C, (VITAMIN C) 500 mg tablet Take 1 tablet by mouth two times a day. - nystatin (MYCOSTATIN) powder A (more content not included)... Normal [facility] CBC panel Auto (Bld)on 12-09 Erythrocyte distribution width (RBC) [Ratio] 13.3 % 11.5 - 15.0 % [facility] Hematocrit (Bld) [Volume fraction] 43.2 % 36.0 - 46.0 % [facility] Hemoglobin (Bld) [Mass/Vol] 14 g/dL 11.5 - 15.5 g/dL [facility] Interpretation and review of laboratory results Normal [facility] MCH (RBC) [Entitic mass] 30.5 pg 26.0 - 34.0 pg [facility] MCHC (RBC) [Mass/Vol] 32.4 g/dL 30.5 - 36.0 g/dL [facility] MCV (RBC) [Entitic vol] 94.1 fL 80.0 - 100.0 fL [facility] Nucleated RBC (Bld) [#/Vol] NINF [facility] Platelet mean volume (Bld) [Entitic vol] 10.3 fL 9.0 - 12.7 fL [facility] Platelets (Bld) [#/Vol] 187 10*3/uL [facility] RBC (Bld) [#/Vol] 4.59 10*6/uL 3.90 - 5.2 0 m/uL [facility] WBC (Bld) [#/Vol] 7.72 10*3/uL [facility] Erythrocyte distribution width (RBC) [Ratio] 13.3 % Normal 11.5-15.0 [facility] Comment on above: Order Comment: Speci men Type: BLOOD SPECIMENOrdering Facility: [facility] Address: [address] [place] [address] Performed By: #### 5 8410-2 ####[facility] LABCLIA [id number] [place] [address] [place] Hematocrit (Bld) [Volume fraction] 43.2 % Normal 36.0-46.0 [facility] Comment on above: Order Comment: Speci men Type: BLOOD SPECIMENOrdering Facility: [facility] Address: [address] [place] [address] Performed By: #### 5 8410-2 ####[facility] LABCLIA [id number] [place] [address] [place] Hemoglobin (Bld) [Mass/Vol] 14.0 g/dL Normal 11.5-15.5 [facility] Comment on above: Order Comment: Speci men Type: BLOOD SPECIMENOrdering Facility: [facility] Address: [address] [place] [address] Performed By: #### 5 8410-2 ####[facility] LABCLIA [id number] [place] [address] [place] MCH (RBC) [Entitic mass] 30.5 pg Normal 26.0-34.0 [facility] Comment on above: Order Comment: Speci men Type: BLOOD SPECIMENOrdering Facility: [facility] Address: [address] [place] [address] Performed By: #### 5 8410-2 ####[facility] LABCLIA [id number] [place] [id number] [place] MCHC (RBC) [Mass/Vol] 32.4 g/dL Normal 30.5-36.0 [facility] Comment on above: Order Comment: Speci men Type: BLOOD SPECIMENOrdering Facility: [facility] Address: [address] [place] [address] Performed By: #### 5 8410-2 ####[facility] LABCLIA [id number] [place] [address] [place] MCV (RBC) [Entitic vol] 94.1 fL Normal 80.0-100.0 [facility] Comment on above: Order Comment: Speci men Type: BLOOD SPECIMENOrdering Facility: [facility] Address: [address] [place] [address] Performed By: #### 5 8410-2 ####[facility] LABIA [id number] [place] [address] [place] Nucleated RBC (Bld) [#/Vol] 10*3/uL Normal <0.01 [facility] Comment on above: Order Comment: Speci men Type: BLOOD SPECIMENOrdering Facility: [facility] Address: [address] [place] [address] Performed By: #### 5 8410-2 ####[facility] LABIA [id number] [place] [address] [place] Platelet mean volume (Bld) [Entitic vol] 10.3 fL Normal 9.0-12.7 [facility] Comment on above: Order Comment: Speci men Type: BLOOD SPECIMENOrdering Facility: [facility] Address: [address] [place] [address] Performed By: #### 5 8410-2 ####[facility] LABIA [id number] [place] [address] [place] Platelets (Bld) [#/Vol] 187 10*3/uL Normal 150-400 [facility] Comment on above: Order Comment: Speci men Type: BLOOD SPECIMENOrdering Facility: [facility] Address: [address] [place] [address] Performed By: #### 5 8410-2 ####[facility] LABCLIA [id number] [place] [address] [place] RBC (Bld) [#/Vol] 4.59 10*6/uL Normal 3.90-5.20 [facility] Comment on above: Order Comment: Speci men Type: BLOOD SPECIMENOrdering Facility: [facility] Address: [address] [place] [address] Performed By: #### 5 8410-2 ####[facility] LABIA [id number] [place] [address] [place] WBC (Bld) [#/Vol] 7.72 10*3/uL Normal 3.70-11.00 [facility] Comment on above: Order Comment: Speci men Type: BLOOD SPECIMENOrdering Facility: [facility] Address: [address] [place] [address] Performed By: #### 5 8410-2 ####[facility] LABIA [id number] [address] [place] CNOVon 12-09-2024 CNOV Office Visit (INTMWS ) -------- FROILAN GARCÍA ([id number]) 1965 F Date Time Provider Department 12/09/24 2:40 PM JUDY HAYWOOD INTMWS During your visit today, we recorded the following information about you: Pulse Respiration Blood pressure Weight 90/minute 14/minute 124/86 92.5 kg Judy Haywood, HYBRID TESTER.CONTRACT GRAPHIC DESIGNER 12/09/2024 2:57 PM Signed We discussed your foot and ankle pain: - You reported sharp, stabbing pain in your feet and upper ankles that began on Monday, worsens with walking or standing, and improves with rest and ice water. You also noted numbness and tingling in your feet, particularly after prolonged standing, and occasional cramping in your lower legs. - On examination, I did not observe significant swelling in your legs or feet. - I suspect the pain may be related to nerve issues, possibly exacerbated by increased physical activity. However, we will perform further testing to rule out other causes. We discussed your care plan: - I have ordered an ultrasound of your legs to check for blood clots. The scheduling team will contact you to arrange this test. - We will also perform blood work today to evaluate your potassium levels and other potential contributors to your symptoms. - In the meantime, please take it easy and avoid overexerting yourself while your legs are in pain. We discussed pain management: - I prescribed Hydrocodone with Tylenol for pain relief. Take one tablet every 8 hours as needed for pain. Do not take additional Tylenol while using this medication. - This medication may cause drowsiness, so avoid activities requiring alertness, such as driving. Since you do not drive, this should not be a concern. Next steps: - If the ultrasound and blood work are normal and your symptoms persist, we can consider medications specifically for nerve pain. - Please monitor your symptoms and let us know if they worsen or if you experience new symptoms such as fever, chills, or increased swelling. Your prescriptions have been sent to [facility]. If you have any questions or concerns, please contact our office. Judy Haywood, HYBRID TESTER.CONTRACT GRAPHIC DESIGNER 12/09/2024 3:05 PM Signed CC: Patient presents with: Edema: Bilateral feet/ tingling/pricking sensation x 3 days HPI Recording using [employer] software for draft documentation of the visit was discussed with the patient/authorized customer retention representative; all questions welcomed and answered. Patient/authorized customer retention representative agreed to proceed Froilan is a 59-year-old female with a history of CVA, aneurysms, and A-fib on Eliquis, presenting with acute onset of bilateral foot and ankle pain and swelling. Froilan reports the onset of sharp, stabbing pain and swelling in both feet and upper ankles beginning on Monday, following increased physical activity. She has been walking approximately 1 mile daily around her apartment complex since Monday and walked extensively at [facility] on Monday. The pain became severe during the last 30 minutes at [facility], causing her to cry and requiring assistance from her brother and son to leave the store. The pain is worse in the right foot and ankle than the left and is exacerbated by standing and walking, described as feeling like walking on cactuses. The pain improves with rest and is significantly alleviated by immersing her feet in ice water. She denies any improvement in swelling by morning and notes that elevating her feet has not provided relief. Froilan has a history of similar, but less severe, foot pain associated with walking. She also reports episodes of numbness in her feet, particularly after prolonged standing, and denies back pain. She has tried Tylenol for pain relief without significant benefit. She denies fever, chills, or known diabetes. Review of Systems Constitutional: Negative for chills, diaphoresis, fatigue and fever. Respiratory: Negative for shortness of breath. Cardiovascular: Negative for chest pain and palpitations. Skin: Negative for color change and rash. PAST MEDICAL HISTORY Diagnosis Date Acute kidney failure 2004 LISINOPRIL related. Acute, but ill-defined, cerebrovascular disease 11/07/2008 Right hemiparesis, embolic Agoraphobia with panic disorder 12/19/2006 [facility] Anemia 2013 Asthma with COPD with exacerbation ([facility]) Bipolar disorder ([facility]) 2000 Cerebral aneurysm ([facility]) 10/11/2020 Chronic diarrhea 07/12/2016 Chronic rheumatic endocarditis 11/07/2008 Treated for Infective endocarditis Congestive heart failure ([facility]) COVID-19 02/2022 CVA (cerebral vascular accident) ([facility]) 10/11/2020 Depressive disorder, not elsewhere classified 12/19/2006 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ident (CVA) 05/11/2017 Essential hypertension 11/23/2008 Gastroesophageal reflux disease without esophagitis Generalized anxiety disorder (more content not included)... Normal [facility] 12-09-2024 [facility] [place] [facility] Telephone (INTMWS) -------- CHESTERFROILAN KATZ ([id number]) 1965 F Date Time Provider Department 12/09/24 JUDY HAYWOOD INTMWS During your visit today, we recorded the following information about you: Ayah Maylin, PRAVIN 12/09/2024 10:13 AM Signed Pt called in and reports she has had swelling in her feet x5 days. Pt reports the swelling is greater in the L foot than the R foot, states L foot is pitting. She reports the swelling goes down over night. She reports the swelling is starting to go up her calves slightly. Pt reports putting her feet in ice water helps with the swelling. She states she has a pins and needles feeling in both feel. Pt reports pain from N/T 5-6/10 when she is sitting, but when up moving 10/10. Pt reports she can walk but it is painful. Pt is on 40 mg of Lasix. Pt scheduled with Judy Haywood GRAPHICS MANAGER today at 240 pm. Allergies As of Date: 12/09/2024 Noted Allergy Reaction LISINOPRIL 12/19/2006 Comments: blood in urine,renal failure AMOXICILLIN 10/23/2018 4 - Hives CIPRO (CIPROFLOXACIN) 12/19/2006 2 - Rash 9 - Itching LATEX 04/10/2008 2 - Rash 7 - Swelling PENICILLINS 07/19/2016 4 - Hives VENOM-HONEY BEE 10/23/2018 7 - Swelling Date Reviewed: 06/17/2024 Reviewed by: Judy Haywood, HYBRID TESTER.CONTRACT GRAPHIC DESIGNER - Fully Assessed Reason for Visit: Patient Update [1234] Appointment [186] Prescriptions as of 12/09/2024 - amLODIPine (NORVASC) 10 mg tablet Take 1 tablet by mouth once daily. - Cholecalciferol, Vitamin D3, 125 mcg (5,000 unit) cap Take 1 capsule by mouth once daily. - ferrous sulfate 325 mg (65 mg iron) tablet Take 1 tablet by mouth two times a day with meals. - pantoprazole DR (PROTONIX) 20 mg tablet Take 1 tablet by mouth daily before breakfast. Take on empty stomach, 1/2 hr before meal. - rosuvastatin (CRESTOR) 5 mg tablet Take 1 tablet by mouth once daily. - ascorbic acid, vitamin C, (VITAMIN C) 500 mg tablet Take 1 tablet by mouth two times a day. - nystatin (MYCOSTATIN) powder Apply 1 application to affected area four times a day as needed. - furosemide (LASIX) 40 mg tablet Take 40 mg by mouth once daily. - POTASSIUM-99 ORAL Take 99 mg by mouth once daily. - ELIQUIS 5 mg tab(s) Take 5 mg by mouth. - acetaminophen (TYLENOL) 500 mg tablet Take 1 tablet by mouth three times daily as needed for pain. Problem List As Of Date 12/09/2024 Noted Resolved Unspecified asthma(493.90) [J45.909] 12/19/2006 08/18/2015 Depressive disorder [F32.A] 12/19/2006 Agoraphobia with panic disorder [F40.01] 12/19/2006 05/11/2017 Tobacco use disorder [F17.200] 12/19/2006 06/17/2024 BENIGN HYPERTENSION [I10] 12/27/2006 11/23/2008 SUPRV HIGH-RISK PREG NOS [O09.90] 04/10/2008 09/09/2008 AMA MULTIGRAVID-ANTEPARTUM [O09.529] 09/09/2008 11/27/2008 SUPRF HIGH RISK NEC [O09.899] 09/09/2008 11/27/2008 Unspecified Backache [M54.9] 10/21/2008 06/29/2009 POOR GRTH-ANTEPART [O36.5990] 10/31/2008 11/27/2008 Acute, but ill-defined, cerebrovascular disease*11/07/2008 05/11/2017 Hypertension [I10] 11/23/2008 retirement current use of anticoagulant therapy *11/23/2008 Mitral regurgitation [I34.0] 11/27/2008 Unspecified Anemia [D64.9] 12/01/2008 06/29/2009 Open Wound(s) (Multiple) of Unspecified Site(s)*12/01/2008 06/29/2009 Sick sinus syndrome (HCC) [I49.5] 08/27/2009 05/30/2016 Heart valve replaced by transplant [Z95.2] 10/22/2009 10/07/2010 SUMMARY [V999.95] 07/01/2011 05/08/2012 Pacemaker malfunction [T82.111A] 07/01/2011 07/25/2013 Heart valve replaced [Z95.2] 08/14/2013 Menorrhagia [N92.0] 08/14/2013 08/18/2015 Anemia [D64.9] 08/14/2013 05/11/2017 Paroxysmal atrial fibrillation (HCC) [I48.0] 10/31/2013 Psychosis (HCC) [F29] 10/01/2014 05/30/2016 Tardive dyskinesia [G24.01] 08/18/2015 Mass of sigmoid colon on CT scan [K63.89] 06/16/2016 12/08/2016 Asthma with chronic obstructive pulmonary disea*06/23/2016 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*05/11/2017 CKD (chronic kidney disease) stage 3, GFR 30-59*06/18/2018 Obesity, Class I, BMI 30-34.9 [E66.811] 11/12/2018 Urge incontinence [N39.41] 10/03/2019 Brain aneurysm [I67.1] 10/11/2020 Hemiparesis due to old cerebrovascular accident*10/17/2020 Malnutrition of mild degree (HCC) [E44.1] 10/19/2020 06/10/2021 Epistaxis [R04.0] 11/06/2020 06/14/2021 Unsteady gait [R26.81] 01/07/2021 Hypertensive kidney disease with stage 3 chroni*06/10/2021 Anxiety [F41.9] 10/24/2022 Gastroesophageal reflux disease without esophag*10/24/2022 Hyperlipidemia [E78.5] 10/24/2022 Dementia (HCC) [F03.90] 06/17/2024 Encounter Status:Closed by MAYLIN POON on 12/09/24 Normal [facility] Comprehensive metabolic 2000 panelon 12-09-2024 Albumin [Mass/Vol] 4.3 g/dL 3.9 - 4.9 g/dL [facility] ALP [Catalytic activity/Vol] 79 U/L 34 - 123 U/L [facility] ALT [Catalytic activity/Vol] 10 U/L 7 - 38 U/L [facility] Anion gap [Moles/Vol] 15 mmol/L 8 - 15 mmol/L [facility] AST [Catalytic activity/Vol] 23 U/L 13 - 35 U/L [facility] Bilirubin [Mass/Vol] 0.9 mg/dL 0.2 - 1 .3 mg/dL [facility] Calcium [Mass/Vol] 9.3 mg/dL 8.5 - 10. 2 mg/dL [facility] Chloride [Moles/Vol] 103 mmol/L 98 - 10 7 mmol/L [facility] CO2 [Moles/Vol] 23 mmol/L 22 - 30 mmol/L [facility] Creatinine [Mass/Vol] 0.95 mg/dL 0.58 - 0.96 mg/dL [facility] GFR/1.73 sq M.predicted among non-blacks MDRD (S/P/Bld) [Vol rate/Area] 70 mL/min/{1.73_m2} - PINF [facility] Comment on above: Estimated Glomerular Filtration Rate (eGFR) is calculated using the 2020 CKD-EPI creatinine equation. This equation utilizes serum creatinine, sex, and age as parameters. The creatinine assay has traceable calibration to isotope dilution-mass spectrometry. Refer to KDIGO guidelines for clinical interpretation. In patients with unstable renal function, e.g. those with acute kidney injury, the eGFR may not accurately reflect actual GFR. Glucose [Mass/Vol] 79 mg/dL 74 - 99 mg/dL [facility] Comment on above: The [place] Diabete s Association (ADA) provides guidance for cutoff values for fasting glucose and random glucose. The ADA defines fasting as no caloric intake for at least 8 hours. Fasting plasma glucose results between 100 to 125 mg/dL indicate increased risk for diabetes (prediabetes). Fasting plasma glucose results greater than or equal to 126 mg/dL meet the criteria for diagnosis of diabetes. In the absence of unequivocal hyperglycemia, results should be confirmed by repeat testing. In a patient with classic symptoms of hyperglycemia or hyperglycemic crisis, random plasma glucose results greater than or equal to 200 mg/dL meet the criteria for diagnosis of diabetes. Reference: Standards of Medical Care in Diabetes 2016, [place] Diabetes Association. Diabetes Care. 2016.39(Suppl 1). Interpretation and review of laboratory results Abnormal [facility] Potassium [Moles/Vol] 3.5 mmol/L Low 3.7 - 5.1 mmol/L [facility] Protein [Mass/Vol] 7.2 g/dL 6.3 - 8.0 g/dL [facility] Sodium [Moles/Vol] 141 mmol/L 136 - 144 mmol/L [facility] Urea nitrogen [Mass/Vol] 19 mg/dL 7 - 21 mg/dL [facility] Albumin [Mass/Vol] 4.3 g/dL Normal 3.9-4.9 [facility] Comment on above: Order Comment: Speci men Type: BLOOD SPECIMENOrdering Facility: [facility] Address: [address] [place] [address] Performed By: #### 2 4323-8 ####[facility] LABCLIA [id number] [facility] [place] [id number] [place] ALP [Catalytic activity/Vol] 79 U/L Normal 34-123 [facility] Comment on above: Order Comment: Speci men Type: BLOOD SPECIMENOrdering Facility: [facility] Address: [address] [place] [address] Performed By: #### 2 4323-8 ####[facility] LABCLIA [id number] [place] [address] [place] ALT [Catalytic activity/Vol] 10 U/L Normal 7-38 [facility] Comment on above: Order Comment: Speci men Type: BLOOD SPECIMENOrdering Facility: [facility] Address: [address] [place] [address] Performed By: #### 2 4323-8 ####[facility] LABCLIA [id number] [place] [address] [place] Anion gap [Moles/Vol] 15 mmol/L Normal 8-15 [facility] Comment on above: Order Comment: Speci men Type: BLOOD SPECIMENOrdering Facility: [facility] Address: [address] [place] [address] Performed By: #### 2 4323-8 ####[facility] LABCLIA [id number] [facility] [place] [id number] [place] AST [Catalytic activity/Vol] 23 U/L Normal 13-35 [facility] Comment on above: Order Comment: Speci men Type: BLOOD SPECIMENOrdering Facility: [facility] Address: [address] [place] [address] Performed By: #### 2 4323-8 ####[facility] LABCLIA [id number] [facility] [address] [address] [place] Bilirubin [Mass/Vol] 0.9 mg/dL Normal 0.2-1.3 [facility] Comment on above: Order Comment: Speci men Type: BLOOD SPECIMENOrdering Facility: [facility] Address: [address] [place], [place] [id number] Performed By: #### 2 4323-8 ####[facility] LABCLIA [id number] [facility] [address] [address] [place] Calcium [Mass/Vol] 9.3 mg/dL Normal 8.5-10.2 [facility] Comment on above: Order Comment: Speci men Type: BLOOD SPECIMENOrdering Facility: [facility] Address: [address] [place], [place] [id number] Performed By: #### 2 4323-8 ####[facility] LABCLIA [id number] [address] [address] [place] Chloride [Moles/Vol] 103 mmol/L Normal 98-107 [facility] Comment on above: Order Comment: Speci men Type: BLOOD SPECIMENOrdering Facility: [facility] Address: [address] [place], [place] [id number] Performed By: #### 2 4323-8 ####[facility] LABCLIA [id number] [address] [address] [place] CO2 [Moles/Vol] 23 mmol/L Normal 22-30 [facility] Comment on above: Order Comment: Speci men Type: BLOOD SPECIMENOrdering Facility: [facility] Address: [address] [place], [place] [id number] Performed By: #### 2 4323-8 ####[facility] LABCLIA [id number] [address] [address] [place] Creatinine [Mass/Vol] 0.95 mg/dL Normal 0.58-0.96 [facility] Comment on above: Order Comment: Yadira quigley Type: BLOOD SPECIMENOrdering Facility: [facility] Address: [address] [place] [address] Performed By: #### 2 4323-8 ####[facility] LABIA [id number] [place] [address] [place] Creatinine and Glomerular filtration rate.predicted panel (S/P/Bld) 70 mL/min/1.73m??? Normal >=60 [facility] Comment on above: Order Comment: Yadira quigley Type: BLOOD SPECIMENOrdering Facility: [facility] Address: [address] [place] [address] Result Comment: Neelam mated Glomerular Filtration Rate (eGFR) is calculated using the 2020 CKD-EPI creatinine equation. This equation utilizes serum creatinine, sex, and age as parameters. The creatinine assay has traceable calibration to isotope dilution-mass spectrometry. Refer to KDIGO guidelines for clinical interpretation. In patients with unstable renal function, e.g. those with acute kidney injury, the eGFR may not accurately reflect actual GFR. Performed By: #### 2 4323-8 ####[facility] LABIA [id number] [place] [address] [place] Glucose [Mass/Vol] 79 mg/dL Normal 74-99 [facility] Comment on above: Order Comment: Yadira quigley Type: BLOOD SPECIMENOrdering Facility: [facility] Address: [address] [place] [address] Result Comment: The [place] Diabetes Association (ADA) provides guidance for cutoff values for fasting glucose and random glucose. The ADA defines fasting as no caloric intake for at least 8 hours. Fasting plasma glucose results between 100 to 125 mg/dL indicate increased risk for diabetes (prediabetes). Fasting plasma glucose results greater than or equal to 126 mg/dL meet the criteria for diagnosis of diabetes. In the absence of unequivocal hyperglycemia, results should be confirmed by repeat testing. In a patient with classic symptoms of hyperglycemia or hyperglycemic crisis, random plasma glucose results greater than or equal to 200 mg/dL meet the criteria for diagnosis of diabetes. Reference: Standards of Medical Care in Diabetes 2016, [place] Diabetes Association. Diabetes Care. 2016.39(Suppl 1). Performed By: #### 2 4323-8 ####[facility] LABCLIA [id number] [address] [place] [address] [place] Potassium [Moles/Vol] 3.5 mmol/L Low 3.7-5.1 [facility] Comment on above: Order Comment: Speci men Type: BLOOD SPECIMENOrdering Facility: [facility] Address: [address] [place] [address] Performed By: #### 2 4323-8 ####[facility] LABCLIA [id number] [address] [place] [address] [place] Protein [Mass/Vol] 7.2 g/dL Normal 6.3-8.0 [facility] Comment on above: Order Comment: Speci men Type: BLOOD SPECIMENOrdering Facility: [facility] Address: [address] [place] [address] Performed By: #### 2 4323-8 ####[facility] LABCLIA [id number] [address] [place] [address] [place] Sodium [Moles/Vol] 141 mmol/L Normal 136-144 [facility] Comment on above: Order Comment: Speci men Type: BLOOD SPECIMENOrdering Facility: [facility] Address: [address] [place] [address] Performed By: #### 2 4323-8 ####[facility] LABCLIA [id number] [address] [place] [address] [place] Urea nitrogen [Mass/Vol] 19 mg/dL Normal 7-21 [facility] Comment on above: Order Comment: Speci men Type: BLOOD SPECIMENOrdering Facility: [facility] Address: [address] [place], [place] [id number] Performed By: #### 2 4323-8 ####[facility] LABCLIA [id number] [address] [place] [address] [place] US DVT LOWER BILon 5 US DVT LOWER JASON * * *Final Report* * * DATE OF EXAM: Dec 09 2024 4:11PM [facility] 1005 - DVT LOWER JASON / PROCEDURE REASON: multiple diagnoses * * * * Physician Interpretation * * * * EXAMINATION: RIGHT AND LEFT LOWER EXTREMITY DEEP VENOUS ULTRASOUND WITH DOPPLER IMAGING CLINICAL HISTORY: Lower extremity edema TECHNIQUE: Grayscale with compression maneuvers, color Doppler and spectral Doppler imaging of the right and left proximal deep veins was performed. Grayscale with compression maneuvers of the right and left peroneal and posterior tibial veins was performed. The right and left great and small saphenous veins were evaluated at their insertion to the deep system. Images were obtained and stored in a permanent archive and interpreted remotely. MQ: [id number] COMPARISON: None RESULT: RIGHT LOWER EXTREMITY PROXIMAL DEEP VEINS Distal External Iliac, Common Femoral and Proximal Profunda Veins: Compression: Normal Doppler: Normal, spontaneous respirophasic flow. Normal response to augmentation. Femoral vein: Compression: Normal Doppler: Normal, spontaneous respirophasic flow. Normal response to augmentation. Popliteal vein: Compression: Normal Doppler: Normal, spontaneous respirophasic flow. Normal response to augmentation. CALF DEEP VEINS Peroneal veins: Grossly normal compression in their limited visualized segments Posterior tibial veins: Grossly normal compression in their limited visualized segments Gastrocnemius and Soleal veins: Not imaged. SUPERFICIAL VEINS Great saphenous: Patent and compressible at insertion into common femoral vein; not otherwise assessed. Small Saphenous: Patent and compressible in the proximal calf, not otherwise assessed. LEFT LOWER EXTREMITY PROXIMAL DEEP VEINS Distal External Iliac, Common Femoral and Proximal Profunda Veins: Compression: Normal Doppler: Normal, spontaneous respirophasic flow. Normal response to augmentation. Femoral vein: Compression: Normal Doppler: Normal, spontaneous respirophasic flow. Normal response to augmentation. Popliteal vein: Compression: Normal Doppler: Normal, spontaneous respirophasic flow. Normal response to augmentation. CALF DEEP VEINS Peroneal veins: Grossly normal compression in their limited visualized segments Posterior tibial veins: Grossly normal compression in their limited visualized segments Gastrocnemius and Soleal veins: Not imaged. SUPERFICIAL VEINS Great saphenous: Patent and compressible at insertion into common femoral vein; not otherwise assessed. Small Saphenous: Patent and compressible in the proximal calf, not otherwise assessed. IMPRESSION: Negative study for proximal DVT in the left and right lower extremities. No gross calf DVT in the left and right lower extremities in their limited visualized segments. Negative study for superficial thrombophlebitis in the imaged segments of the left and right lower extremities. Baster Hand: WALLY Transcribe Date/Time: Dec 09 2024 4:14P Dictated by : GRETCHEN MCINTOSH MD This examination was interpreted and the report reviewed and electronically signed by: GRETCHEN MCINTOSH MD on Dec 09 2024 4:18PM EST [id number] Normal [facility] US Lower extremity vein - bi lateralon 12-09-2024 IMPRESSION: Negative study for proximal DVT in the left and right lower extremities. No gross calf DVT in the left and right lower extremities in their limited visualized segments. Negative study for superficial thrombophlebitis in the imaged segments of the left and right lower extremities. Baster Hand: WALLY Transcribe Date/Time: Dec 09 2024 4:14P Dictated by : GRETCHEN MCINTOSH MD This examination was interpreted and the report reviewed and electronically signed by: GRETCHEN MCINTOSH MD on Dec 09 2024 4:18PM EST DIVISION OF RADIOLOGY * * *Final Report* * * DATE OF EXAM: Dec 09 2024 4:11PM [facility] 1005 - US DVT LOWER JASON / PROCEDURE REASON: multiple diagnoses * * * * Physician Interpretation * * * * EXAMINATION: RIGHT AND LEFT LOWER EXTREMITY DEEP VENOUS ULTRASOUND WITH DOPPLER IMAGING CLINICAL HISTORY: Lower extremity edema TECHNIQUE: Grayscale with compression maneuvers, color Doppler and spectral Doppler imaging of the right and left proximal deep veins was performed. Grayscale with compression maneuvers of the right and left peroneal and posterior tibial veins was performed. The right and left great and small saphenous veins were evaluated at their insertion to the deep system. Images were obtained and stored in a permanent archive and interpreted remotely. MQ: USLEB_1 COMPARISON: None RESULT: RIGHT LOWER EXTREMITY PROXIMAL DEEP VEINS Distal External Iliac, Common Femoral and Proximal Profunda Veins: Compression: Normal Doppler: Normal, spontaneous respirophasic flow. Normal response to augmentation. Femoral vein: Compression: Normal Doppler: Normal, spontaneous respirophasic flow. Normal response to augmentation. Popliteal vein: Compression: Normal Doppler: Normal, spontaneous respirophasic flow. Normal response to augmentation. CALF DEEP VEINS Peroneal veins: Grossly normal compression in their limited visualized segments Posterior tibial veins: Grossly normal compression in their limited visualized segments Gastrocnemius and Soleal veins: Not imaged. SUPERFICIAL VEINS Great saphenous: Patent and compressible at insertion into common femoral vein; not otherwise assessed. Small Saphenous: Patent and compressible in the proximal calf, not otherwise assessed. LEFT LOWER EXTREMITY PROXIMAL DEEP VEINS Distal External Iliac, Common Femoral and Proximal Profunda Veins: Compression: Normal Doppler: Normal, spontaneous respirophasic flow. Normal response to augmentation. Femoral vein: Compression: Normal Doppler: Normal, spontaneous respirophasic flow. Normal response to augmentation. Popliteal vein: Compression: Normal Doppler: Normal, spontaneous respirophasic flow. Normal response to augmentation. CALF DEEP VEINS Peroneal veins: Grossly normal compression in their limited visualized segments Posterior tibial veins: Grossly normal compression in their limited visualized segments Gastrocnemius and Soleal veins: Not imaged. SUPERFICIAL VEINS Great saphenous: Patent and compressible at insertion into common femoral vein; not otherwise assessed. Small Saphenous: Patent and compressible in the proximal calf, not otherwise assessed. DIVISION OF RADIOLOGY Provider, [facility] - 12/09/2024 * * *Final Report* * * DATE OF EXAM: Dec 09 2024 4:11PM [facility] 1005 - US DVT LOWER JASON / PROCEDURE REASON: multiple diagnoses * * * * Physician Interpretation * * * * EXAMINATION: RIGHT AND LEFT LOWER EXTREMITY DEEP VENOUS ULTRASOUND WITH DOPPLER IMAGING CLINICAL HISTORY: Lower extremity edema TECHNIQUE: Grayscale with compression maneuvers, color Doppler and spectral Doppler imaging of the right and left proximal deep veins was performed. Grayscale with compression maneuvers of the right and left peroneal and posterior tibial veins was performed. The right and left great and small saphenous veins were evaluated at their insertion to the deep system. Images were obtained and stored in a permanent archive and interpreted remotely. MQ: USLEB_1 COMPARISON: None RESULT: RIGHT LOWER EXTREMITY PROXIMAL DEEP VEINS Distal External Iliac, Common Femoral and Proximal Profunda Veins: Compression: Normal Doppler: Normal, spontaneous respirophasic flow. Normal response to augmentation. Femoral vein: Compression: Normal Doppler: Normal, spontaneous respirophasic flow. Normal response to augmentation. Popliteal vein: Compression: Normal Doppler: Normal, spontaneous respirophasic flow. Normal response to augmentation. CALF DEEP VEINS Peroneal veins: Grossly normal compression in their limited visualized segments Posterior tibial veins: Grossly normal compression in their limited visualized segments Gastrocnemius and Soleal veins: Not imaged. SUPERFICIAL VEINS Great saphenous: Patent and compressible at insertion into common femoral vein; not otherwise assessed. Small Saphenous: Patent and compressible in the proximal calf, not otherwise assessed. LEFT LOWER EXTREMITY PROXIMAL DEEP VEINS Distal External Iliac, Common Femoral and Proximal Profunda Veins: Compression: Normal Doppler: Normal, spontaneous respirophasic flow. Normal response to augmentation. Femoral vein: Compression: Normal Doppler: Normal, spontaneous respirophasic flow. Normal response to augmentation. Popliteal vein: Compression: Normal Doppler: Normal, spontaneous respirophasic flow. Normal response to augmentation. CALF DEEP VEINS Peroneal veins: Grossly normal compression in their limited visualized segments Posterior tibial veins: Grossly normal compression in their limited visualized segments Gastrocnemius and Soleal veins: Not imaged. SUPERFICIAL VEINS Great saphenous: Patent and compressible at insertion into common femoral vein; not otherwise assessed. Small Saphenous: Patent and compressible in the proximal calf, not otherwise assessed. IMPRESSION IMPRESSION: Negative study for proximal DVT in the left and right lower extremities. No gross calf DVT in the left and right lower extremities in their limited visualized segments. Negative study for superficial thrombophlebitis in the imaged segments of the left and right lower extremities. [facility] Transcribe Date/Time: Dec 09 2024 4:14P Dictated by : GRETCHEN MCINTOSH MD This examination was interpreted and the report reviewed and electronically signed by: GRETCHEN MCINTOSH MD on Dec 09 2024 4:18PM EST [facility] Radiology Study observation (narrative) [facility] US Lower extremity vein - bi lateralOrdered By: Ccf Provider on 12-09-2024 [facility] Anion gap in Serum or Plasma Ordered By: Lucio Basurto on 10-11-2024 Anion gap [Moles/Vol] 15 mmol/L 12-19 [facility] BUN/creatinine ratioOrdered By: Lucio Basurto on 10-11-2024 Urea nitrogen/Creatinine [Mass ratio] 18.3 mg/mg 05-26 [facility] Basic Metabolic Profile (BMP )on 10-11-2024 BUN/CRE 18.3 RATIO Normal 05-26 [facility] Comment on above: Performed By: #### L 500.2500 #### [facility] [address] [place], [place], [address] GAP 15 Normal 5-15 [facility] Comment on above: Performed By: #### L 500.2500 #### [facility] [address] [place], [place], [id number] Carbon dioxide, total [Moles /volume] in Central venous bloodOrdered By: Lucio Basurto on 10-11-2024 CO2 [Moles/Vol] 22.5 mmol/L Normal 21.0-32.0 [facility] Comment on above: Performed By: #### L 500.2500 #### [facility] [address] [place], [place], [address] Cardiology Visit Reporton Cardiology Visit Report [facility] [address] [place], [place] [address] OFFICE VISIT Date of Service: 10/11/24 MR#: [id number] Acct: [id number] Name: FROILAN GARCÍA Rep #: [id number] : 1965 Provider: GONZÁLEZ Forde Age/Sex: 59/F Location: [facility] Status: Signed HPI HPI History of Present Illness Details: FROILAN GARCÍA, is a 57 bipolar female who presents to the office today for a cardiovascular appt. She has a history of a bioprosthetic mitral valve repair. She has a history of hypertension, asthma, smoker less than 1 pack per day for the past 23 years, who in July 2009 when she was at near full-term gestation with her third child in the third trimester, who apparently developed a stroke at 36 weeks requiring emergent transferred [facility]. She underwent a at that time and an MRI showed past strokes in multiple vascular distributions and acute left cortical stroke. 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 Her EF was normal at that time. Carotid studies were negative. Patient was allowed to recover, until her mitral mass resolved. She then underwent a #27 mm bioprosthetic [employer] Velasco mitral valve replacement and has been following up at the [facility]. She has been on Coumadin ever since for her CVA and paroxysmal atrial fibrillation. Patient has some mild dysarthria and weakness on her right side since her stroke. In addition she developed sick sinus syndrome in 2008 and underwent dual-chamber pacemaker for occasional third-degree AV block. 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 She underwent generator change on 09/21/2020. In June of 2024 she had an echo done which demonstrated Estimated LVEF 40 to 45%, Mildly dilated right ventricle. Bioprosthetic mitral valve appears stable. Mean peak gradient 6.2 mmHg. Gradient from last year was 6.5 mmHg. Moderately severe (3+) tricuspid valve insufficiency. Stress test demonstrated Small reversible apical perfusion defect that may denote ischemia. She did have a cardiac CTA this did not demonstrate any significant blockage, this was done at [facility]. Pt does have chest pain/heaviness when she sleeps. This is not new. She does feel better with her breathing since she quit smoking. She does have muscle pains and feels better if she takes 2 full dose ASA. She now lives with her son. She does have [employer]. 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 Is patient in pain?: No Allergies amoxicillin (Amoxicillin) Allergy (Verified 10/11/24 09:22) Hives latex Allergy (Verified 10/11/24 09:22) Rash lisinopril Allergy (Verified 10/11/24 09:22) Unknown Penicillins Allergy (Verified 10/11/24 09:22) Hives venom-honey bee (bee venom (honey bee)) Allergy (Verified 10/11/24 09:22) Swelling ciprofloxacin (From Cipro) Adverse Reaction (Verified 10/11/24 09:22) Nausea/Vom/Diarrhea Medications ???Medication ???Instructions ???Recorded ???Confirmed ???Type cholecalciferol (vitamin D3) 125 125 mcg PO DAILY supplement 10/11/24 History mcg (5,000 unit) capsule rosuvastatin 5 mg tablet 5 mg PO QHS CHOLESTEROL 12/14/21 0 10/11/24 History acetaminophen 500 mg tablet 500 mg PO Q6H PRN pain/fever 02/1610/11/24 History amlodipine 10 mg tablet 10 mg PO DAILY HTN 02/16/22 History ferrous sulfate 325 mg (65 mg 325 mg PO BID 10/14/22 10/11/24 Hi story iron) tablet ascorbate calcium (vitamin C) 500 500 mg PO QDAY 06/05/24 10/11/24 History mg tablet furosemide 40 mg tablet (Lasix) 40 mg PO QDAY #90 tabs 06/05/24 Rx pantoprazole 20 mg tablet,delayed 20 mg PO QDAY 06/05/24 10/11/24 H istory release potassium chloride 20 mEq 20 meq PO QDAY K+ was low on the 1 08/14/23 10/11/24 Rx tablet,extended release 595 KCL #30 tabs apixaban 5 mg tablet (Eliquis) 5 mg PO BID #60 tabs 08/29/2402/28 Rx Ejection fraction %: 45 Have you fallen in the past year?: No PFSH Medical History (Updated 10/11/24 @ 09:56 by Lucio Basurto PA, PA) Tricuspid insufficiency Tobacco use retirement current use of anticoagulant Tardive dyskinesia Brain aneurysm CKD (chronic kidney disease) Mitral regurgitation Depressive disorder Unsteady gait Hemiparesis due (more content not included)... Normal [facility] Chloride assayOrdered By: Christina Basurto on 10-11-2024 Chloride [Moles/Vol] 103 mmol/L Normal 98-108 [facility] Comment on above: Performed By: #### L 500.2500 #### [facility] [address] [place], [place], [id number] GFR/1.73 sq M.predicted betsy g non-blacks MDRD (S/P/Bld) [Vol rate/Area]Ordered By: Lucio Basurto on 10-11-2024 Estimated GFR (MDRD) Non-Af Amer 57 Low >60 [facility] Comment on above: mL/min/1.73m2 CKD-EP I Creatinine Equation (2020) Glomerular filtration rate ( GFR) estimation/1.73 sq m using serum, plasma, or whole bOrdered By: Lucio Basurto on 10-11-2024 GFR/1.73 sq M.predicted among non-blacks MDRD (S/P/Bld) [Vol rate/Area] 57 mL/min/{1.73_m2} Low >60 [facility] Comment on above: mL/min/1.73m2 CKD-EP I Creatinine Equation (2020) Result Comment: mL/m in/1.73m2 CKD-EPI Creatinine Equation (2020) Performed By: #### L 500.2500 #### [facility] [address] [facility] [place], [place], [id number] Potassium measurement (mass/ volume)Ordered By: Lucio Basurto on 10-11-2024 Potassium [Moles/Vol] 4.8 mmol/L Normal 3.3-5.1 [facility] Comment on above: Hemolysis present, R esults could be affected. Result Comment: Hemo lysis present, Results??could be affected. ?? Performed By: #### L 500.2500 #### [facility] [address] [place], [place], [address] Potassium (Unsp spec) [Mass/Vol] 4.8 mmol/L 3.3-5.1 [facility] Comment on above: Hemolysis present, R esults could be affected. Serum creatinine measurement (mass/volume)Ordered By: Lucio Basurto on 10-11-2024 Creatinine [Mass/Vol] 1.12 mg/dL Normal 0.70-1.20 [facility] Comment on above: Performed By: #### L 500.2500 #### [facility] [address] [facility] [place], [place], [id number] Serum glucose measurement (m ass/volume)Ordered By: Lucio Basurto on 10-11-2024 Glucose [Mass/Vol] 91 mg/dL Normal 70-99 [facility] Comment on above: Performed By: #### L 500.2500 #### [facility] [address] [place], [place], [address] Serum or plasma calcium juli urement (mass/volume)Ordered By: Lucio Basurto on 10-11-2024 Calcium [Mass/Vol] 10.0 mg/dL Normal 7.6-11.0 [facility] Comment on above: Performed By: #### L 500.2500 #### [facility] [address] [place], [address] Serum or plasma urea nitroge n measurement (mass/volume)Ordered By: Lucio Basurto on 10-11-2024 Urea nitrogen [Mass/Vol] 21 mg/dL High 4-19 [facility] Comment on above: Performed By: #### L 500.2500 #### [facility] [address] [place], [address] Sodium levelOrdered By: Wilbert Basurto on 10-11-2024 Sodium [Moles/Vol] 141 mmol/L Normal 133-145 [facility] Comment on above: Performed By: #### L 500.2500 #### [facility] [address] [place], [place], [address] CREAT/GFRon 09-27-2024 Creatinine [Mass/Vol] 0.92 mg/dL 0.50 - 1.20 mg/dL [facility] GFR/1.73 sq M.predicted CKD-EPI (S/P/Bld) [Vol rate/Area] 73 - PINF [facility] Comment on above: Reported eGFR is bas ed on the CKD-EPI 2020 equation using creatinine, age, and sex. Interpretation and review of laboratory results Normal [facility] Test performed at address of the patient encounter. [facility] CT ANGIO CARDIAC WITH RAM RY ARTERIESon 09-26-2024 CT ANGIO CARDIAC WITH CORONARY ARTERIES [facility] CT Report Name: LUCIO GARCÍA : 1965 Scan Date: 2024-09-26 12:27:25 Electronically signed by Anahy Greene 15:37:07 VITALS HEIGHT: 63 in (160.02 cm) WEIGHT: 200.00 lbs (90.72 kgs) BSA: 1.93 m^2 BMI: 35 kg/m^2 BP: 156 / 88 mmHg BASELINE HR: [address] CORONARY ANGIOGRAPHY 58 yo F who is referred for CT coronary angiography for evaluation of chest pain. 1. Normal origin and course of coronary arteries. 2. Severe burden of coronary calcification. Total Agatston CAC score of 1755 which is at the 99th percentile for the patient?s age, gender and race. 3. Moderate, nonobstructive coronary artery disease (up to 50% stenosis) of all coronary vessels, as detailed below. 40-50% heterogeneous lesion in mid RCA has an irregular appearance that could represent healed dissection, or simply high risk atherosclerotic plaque. 4. Additional incidental findings as noted below. STUDY QUALITY: Study quality is good. CAD-RADS: CAD-RADS Classification 3/V (50-69% stenosis, vulnerability). CALCIUM SCORING: Total coronary artery calcium score 1755. RATTAN percentile based on age, gender, and race is 99. DOMINANCE: Right dominant coronary artery system. LM: Long vessel. The LM has calcified atherosclerosis. There is a 25-49% mid-distal LM stenosis. LAD: The proximal LAD has partially calcified atherosclerosis. There is a 25-49% proximal LAD stenosis. There is no mid LAD stenosis. There is no distal LAD stenosis. D1: Small caliber branch with diffuse disease. D2: The second diagonal is normal. LCX: There is no proximal LCx stenosis. The mid LCx has calcified atherosclerosis. There is a 25-49% mid LCx stenosis. There is no distal LCx stenosis. OM1: The first obtuse marginal is normal. High origin. OM2: The second obtuse marginal is normal. RCA: The proximal RCA has partially calcified atherosclerosis. There is a 25-49% proximal RCA stenosis. The mid RCA has partially calcified atherosclerosis. The mid RCA plaque has high risk features including spotty calcification and positive remodeling. There is a 50-60% mid RCA stenosis. The distal RCA has calcified atherosclerosis. There is a 25% distal RCA stenosis. RIGHT PDA: The right PDA has non-calcified atherosclerosis. There is a <25% right PDA stenosis. RIGHT PLB: The right posterolateral has calcified atherosclerosis. There is a 25-49% right posterolateral stenosis. OTHER FINDINGS: Cardiac Structure: -\X09\Left Ventricle: Appears normal in size. There is no evidence of ventricular septal defect. There is no myocardial wall thinning or calcific changes suggestive of prior myocardial infarction. -\X09\Right Ventricle: Appears normal in size. No evidence of RV filling defect or thrombus. Pacemaker/defibrillator lead can be seen. -\X09\Left Atrium: Normal in size and free of any filling defect. Normal pulmonary vein anatomy. The LA appendage (BEATRIZ) is multilobed and partially opacified with contrast. -\X09\Right Atrium: Appears normal in size. Pacemaker/defibrillator lead can be seen. -\X09\Interatrial Septum: Normal without any clear evidence of atrial septal defect. -\X09\Aortic Valve: No calcification. -\X09\Mitral Valve: Prosthetic mitral valve in place. -\X09\Pericardium: No thickening, effusion or calcification. Major Vessels:\X09\ -\X09\Aortic Root: Normal in size measuring 30 mm (R cusp-commissure). -\X09\Ascending Aorta: Measures 29 x 28 mm at the level of the PA bifurcation. Mild atherosclerosis. -\X09\Thoracic Descending Aorta: Mild atherosclerosis. -\X09\Main Pulmonary Artery: Appears normal and measures 22 mm in diameter. No obvious filling defect is seen in the pulmonary trunk or in the right and left main pulmonary arteries. Extra-Cardiac Findings (Limited Field of View): -\X09\Chest Wall/Bone: Sternotomy wires, mild degenerative changes of the thoracic spine. -\X09\Mediastinum/Roshni: No adenopathy. -\X09\Pleural Spaces: No thickening, effusion or pneumothorax -\X09\Lung Parenchyma: Few <2 mm calcified micronodules in bilateral lungs CALCIUM SCORING TABLE . . Number of Lesions Pattern of Calcium Volume Total Score +-------+ ----+ -+--------+ + LM 135 LAD 297 LCx 66 RCA 1257 Ramus '-------+ ----+ -+--------+ ' SCAN INFO == (more content not included)... Normal [facility] CT Report Name: LUCIO GARCÍA : 1965 Scan Date: 2024-09-26 12:27:25 Electronically signed by Anahy Greene 15:37:07 VITALS HEIGHT: 63 in (160.02 cm) WEIGHT: 200.00 lbs (90.72 kgs) BSA: 1.93 m^2 BMI: 35 kg/m^2 BP: 156 / 88 mmHg BASELINE HR: [address] CORONARY ANGIOGRAPHY 58 yo F who is referred for CT coronary angiography for evaluation of chest pain. 1. Normal origin and course of coronary arteries. 2. Severe burden of coronary calcification. Total Agatston CAC score of 1755 which is at the 99th percentile for the patient s age, gender and race. 3. Moderate, nonobstructive coronary artery disease (up to 50% stenosis) of all coronary vessels, as detailed below. 40-50% heterogeneous lesion in mid RCA has an irregular appearance that could represent healed dissection, or simply high risk atherosclerotic plaque. 4. Additional incidental findings as noted below. STUDY QUALITY: Study quality is good. CAD-RADS: CAD-RADS Classification 3/V (50-69% stenosis, vulnerability). CALCIUM SCORING: Total coronary artery calcium score 1755. RATTAN percentile based on age, gender, and race is 99. DOMINANCE: Right dominant coronary artery system. LM: Long vessel. The LM has calcified atherosclerosis. There is a 25-49% mid-distal LM stenosis. LAD: The proximal LAD has partially calcified atherosclerosis. There is a 25-49% proximal LAD stenosis. There is no mid LAD stenosis. There is no distal LAD stenosis. D1: Small caliber branch with diffuse disease. D2: The second diagonal is normal. LCX: There is no proximal LCx stenosis. The mid LCx has calcified atherosclerosis. There is a 25-49% mid LCx stenosis. There is no distal LCx stenosis. OM1: The first obtuse marginal is normal. High origin. OM2: The second obtuse marginal is normal. RCA: The proximal RCA has partially calcified atherosclerosis. There is a 25-49% proximal RCA stenosis. The mid RCA has partially calcified atherosclerosis. The mid RCA plaque has high risk features including spotty calcification and positive remodeling. There is a 50-60% mid RCA stenosis. The distal RCA has calcified atherosclerosis. There is a 25% distal RCA stenosis. RIGHT PDA: The right PDA has non-calcified atherosclerosis. There is a <25% right PDA stenosis. RIGHT PLB: The right posterolateral has calcified atherosclerosis. There is a 25-49% right posterolateral stenosis. OTHER FINDINGS: Cardiac Structure: - Left Ventricle: Appears normal in size. There is no evidence of ventricular septal defect. There is no myocardial wall thinning or calcific changes suggestive of prior myocardial infarction. - Right Ventricle: Appears normal in size. No evidence of RV filling defect or thrombus. Pacemaker/defibrillator lead can be seen. - Left Atrium: Normal in size and free of any filling defect. Normal pulmonary vein anatomy. The LA appendage (BEATRIZ) is multilobed and partially opacified with contrast. - Right Atrium: Appears normal in size. Pacemaker/defibrillator lead can be seen. - Interatrial Septum: Normal without any clear evidence of atrial septal defect. - Aortic Valve: No calcification. - Mitral Valve: Prosthetic mitral valve in place. - Pericardium: No thickening, effusion or calcification. Major Vessels: - Aortic Root: Normal in size measuring 30 mm (R cusp-commissure). - Ascending Aorta: Measures 29 x 28 mm at the level of the PA bifurcation. Mild atherosclerosis. - Thoracic Descending Aorta: Mild atherosclerosis. - Main Pulmonary Artery: Appears normal and measures 22 mm in diameter. No obvious filling defect is seen in the pulmonary trunk or in the right and left main pulmonary arteries. Extra-Cardiac Findings (Limited Field of View): - Chest Wall/Bone: Sternotomy wires, mild degenerative changes of the thoracic spine. - Mediastinum/Roshni: No adenopathy. - Pleural Spaces: No thickening, effusion or pneumothorax - Lung Parenchyma: Few <2 mm calcified micronodules in bilateral lungs CALCIUM SCORING TABLE . . Number of Lesions Pattern of Calcium Volume Total Score (more content not included)... CARDIOLOGY Anahy Greene MD - 09/26/2024 [facility] CT Report Name: LUCIO GARCÍA : 1965 Scan Date: 2024-09-26 12:27:25 Electronically signed by Anahy Greene 15:37:07 VITALS === ======= HEIGHT: 63 in (160.02 cm) WEIGHT: 200.00 lbs (90.72 kgs) BSA: 1.93 m^2 BMI: 35 kg/m^2 BP: 156 / 88 mmHg BASELINE HR: 62 BPM FINAL IMPRESSION === ======= CT CORONARY ANGIOGRAPHY 58 yo F who is referred for CT coronary angiography for evaluation of chest pain. 1. Normal origin and course of coronary arteries. 2. Severe burden of coronary calcification. Total Agatston CAC score of 1755 which is at the 99th percentile for the patient s age, gender and race. 3. Moderate, nonobstructive coronary artery disease (up to 50% stenosis) of all coronary vessels, as detailed below. 40-50% heterogeneous lesion in mid RCA has an irregular appearance that could represent healed dissection, or simply high risk atherosclerotic plaque. 4. Additional incidental findings as noted below. === ======= STUDY QUALITY: Study quality is good. CAD-RADS: CAD-RADS Classification 3/V (50-69% stenosis, vulnerability). CALCIUM SCORING: Total coronary artery calcium score 1755. MAGANA percentile based on age, gender, and race is 99. DOMINANCE: Right dominant coronary artery system. LM: Long vessel. The LM has calcified atherosclerosis. There is a 25-49% mid-distal LM stenosis. LAD: The proximal LAD has partially calcified atherosclerosis. There is a 25-49% proximal LAD stenosis. There is no mid LAD stenosis. There is no distal LAD stenosis. D1: Small caliber branch with diffuse disease. D2: The second diagonal is normal. LCX: There is no proximal LCx stenosis. The mid LCx has calcified atherosclerosis. There is a 25-49% mid LCx stenosis. There is no distal LCx stenosis. OM1: The first obtuse marginal is normal. High origin. OM2: The second obtuse marginal is normal. RCA: The proximal RCA has partially calcified atherosclerosis. There is a 25-49% proximal RCA stenosis. The mid RCA has partially calcified atherosclerosis. The mid RCA plaque has high risk features including spotty calcification and positive remodeling. There is a 50-60% mid RCA stenosis. The distal RCA has calcified atherosclerosis. There is a 25% distal RCA stenosis. RIGHT PDA: The right PDA has non-calcified atherosclerosis. There is a <25% right PDA stenosis. RIGHT PLB: The right posterolateral has calcified atherosclerosis. There is a 25-49% right posterolateral stenosis. OTHER FINDINGS: Cardiac Structure: -Left Ventricle: Appears normal in size. There is no evidence of ventricular septal defect. There is no myocardial wall thinning or calcific changes suggestive of prior myocardial infarction. -Right Ventricle: Appears normal in size. No evidence of RV filling defect or thrombus. Pacemaker/defibrillator lead can be seen. -Left Atrium: Normal in size and free of any filling defect. Normal pulmonary vein anatomy. The LA appendage (BEATRIZ) is multilobed and partially opacified with contrast. -Right Atrium: Appears normal in size. Pacemaker/defibrillator lead can be seen. -Interatrial Septum: Normal without any clear evidence of atrial septal defect. -Aortic Valve: No calcification. -Mitral Valve: Prosthetic mitral valve in place. -Pericardium: No thickening, effusion or calcification. Major Vessels: -Aortic Root: Normal in size measuring 30 mm (R cusp-commissure). -Ascending Aorta: Measures 29 x 28 mm at the level of the PA bifurcation. Mild atherosclerosis. -Thoracic Descending Aorta: Mild atherosclerosis. -Main Pulmonary Artery: Appears normal and measures 22 mm in diameter. No obvious filling defect is seen in the pulmonary trunk or in the right and left main pulmonary arteries. Extra-Cardiac Findings (Limited Field of View): -Chest Wall/Bone: Sternotomy wires, mild degenerative changes of the thoracic spine. -Mediastinum/Roshni: No adenopathy. -Pleural Spaces: No thickening, effusion or pneumothorax -Lung Parenchyma: Few <2 mm calcified micronodules in bilateral lungs CALCIUM SCORING TABLE === ======= . . Number of Lesions Pattern of Calcium Volume Total Score +-------+ ----+ -+--------+ + LM 135 LAD 297 LCx 66 RCA 1257 Ramus '-------+ ----+ (more content not included)... [facility] Radiology Study observation (narrative) [facility] CT ANGIO CARDIAC WITH RAM RY ARTERIESOrdered By: Anahy Greene on 09-26-2024 [facility] Work Phone: CNPNon 09-17-2024 CNPN Telephone (INTMWS) -------- FROILAN GARCÍA ([id number]) 1965 F Date Time Provider Department 09/17/24 [facility] INTM[facility] During your visit today, we recorded the following information about you: Melanie Vences RN 09/17/2024 8:28 AM Signed Patient calls and states that she has been having issues with [facility] and not getting answers. Patient states that her heart keeps getting weaker and weaker. 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 Patient states that she knows the valve is bad, and they are doing anything about it. Patient asking if provider would recommend patient going back to [facility] for Cardiology? Please review and advise, PRAVIN Russell Victor H, MD 09/18/2024 12:42 AM Signed Not sure what her issue is. Schedule appointment to evaluate concerns. Yvette Gray LPN 10/03/2024 1:19 PM Addendum Froilan has follow-up appt with [facility], 2024. Yvette Ochoa LPN, LPN 09/19/2024 10:11 AM Signed Left message to call AND speak to nurse. Yvette Gray LPN Allergies As of Date: 09/17/2024 Noted Allergy Reaction LISINOPRIL 12/19/2006 Comments: blood in urine,renal failure AMOXICILLIN 10/23/2018 4 - Hives CIPRO (CIPROFLOXACIN) 12/19/2006 2 - Rash 9 - Itching LATEX 04/10/2008 2 - Rash 7 - Swelling PENICILLINS 07/19/2016 4 - Hives VENOM-HONEY BEE 10/23/2018 7 - Swelling Date Reviewed: 06/17/2024 Reviewed by: Judy Haywood APRN.CONTRACT GRAPHIC DESIGNER - Fully Assessed Reason for Visit: Patient Update [1234] Prescriptions as of 10/03/2024 - ascorbic acid, vitamin C, (VITAMIN C) 500 mg tablet Take 1 tablet by mouth two times a day. - nystatin (MYCOSTATIN) powder Apply 1 application to affected area four times a day as needed. - furosemide (LASIX) 40 mg tablet Take 40 mg by mouth once daily. - POTASSIUM-99 ORAL Take 99 mg by mouth once daily. - rosuvastatin (CRESTOR) 5 mg tablet Take 1 tablet by mouth once daily. - amLODIPine (NORVASC) 10 mg tablet Take 1 tablet by mouth once daily. - Cholecalciferol, Vitamin D3, 125 mcg (5,000 unit) cap Take 1 capsule by mouth once daily. - pantoprazole DR (PROTONIX) 20 mg tablet Take 1 tablet by mouth daily before breakfast. Take on empty stomach, 1/2 hr before meal. - ferrous sulfate 325 mg (65 mg iron) tablet Take 1 tablet by mouth two times a day with meals. - ELIQUIS 5 mg tab(s) Take 5 mg by mouth. - acetaminophen (TYLENOL) 500 mg tablet Take 1 tablet by mouth three times daily as needed for pain. Problem List As Of Date 09/17/2024 Noted Resolved Unspecified asthma(493.90) [J45.909] 12/19/2006 08/18/2015 Depressive disorder [F32.A] 12/19/2006 Agoraphobia with panic disorder [F40.01] 12/19/2006 05/11/2017 Tobacco use disorder [F17.200] 12/19/2006 06/17/2024 BENIGN HYPERTENSION [I10] 12/27/2006 11/23/2008 SUPRV HIGH-RISK PREG NOS [O09.90] 04/10/2008 09/09/2008 AMA MULTIGRAVID-ANTEPARTUM [O09.529] 09/09/2008 11/27/2008 [facility] HIGH RISK NEC [O09.899] 09/09/2008 11/27/2008 Unspecified Backache [M54.9] 10/21/2008 06/29/2009 POOR GRTH-ANTEPART [O36.5990] 10/31/2008 11/27/2008 Acute, but ill-defined, cerebrovascular disease*11/07/2008 05/11/2017 Hypertension [I10] 11/23/2008 retirement current use of anticoagulant therapy *11/23/2008 Mitral regurgitation [I34.0] 11/27/2008 Unspecified Anemia [D64.9] 12/01/2008 06/29/2009 Open Wound(s) (Multiple) of Unspecified Site(s)*12/01/2008 06/29/2009 Sick sinus syndrome (HCC) [I49.5] 08/27/2009 05/30/2016 Heart valve replaced by transplant [Z95.2] 10/22/2009 10/07/2010 SUMMARY [V999.95] 07/01/2011 05/08/2012 Pacemaker malfunction [T82.111A] 07/01/2011 07/25/2013 Heart valve replaced [Z95.2] 08/14/2013 Menorrhagia [N92.0] 08/14/2013 08/18/2015 Anemia [D64.9] 08/14/2013 05/11/2017 Paroxysmal atrial fibrillation (HCC) [I48.0] 10/31/2013 Psychosis (HCC) [F29] 10/01/2014 05/30/2016 Tardive dyskinesia [G24.01] 08/18/2015 Mass of sigmoid colon on CT scan [K63.89] 06/16/2016 12/08/2016 Asthma with chronic obstructive pulmonary disea*06/23/2016 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*05/11/2017 CKD (chronic kidney disease) stage 3, GFR 30-59*06/18/2018 Obesity, Class I, BMI 30-34.9 [E66.811] 11/12/2018 Urge incontinence [N39.41] 10/03/2019 Brain aneurysm [I67.1] 10/11/2020 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 Normal [facility] Absolute neutrophil countOrd ered By: Shavon Valentin on 08-14-2024 Neutrophils (Bld) [#/Vol] 5.3 10*3/uL 2.0-7.7 [facility] BNP (brain natriuretic pepti de measurement)Ordered By: Shavon Valentin on 08-14-2024 Natriuretic peptide B (Bld) [Mass/Vol] 24.7 pg/mL 0-100 [facility] BNP,B-Type NATRIURETIC PEPTI Jose 08-14-2024 Natriuretic peptide B (Bld) [Mass/Vol] 24.7 pg/mL Normal 0-100 [facility] Comment on above: Performed By: #### L 503.6620, L500.2500, L100.0100 #### [facility] [address] [place], [address] Basic Metabolic Profile (BMP )on 08-14-2024 BUN/CRE 20.2 RATIO High 10-20 [facility] Comment on above: Performed By: #### L 503.6620, L500.2500, L100.0100 #### [facility] [address] [place], [address] CA,Total 9.5 mg/dL Normal 8.5-10.1 [facility] Comment on above: Performed By: #### L 503.6620, L500.2500, L100.0100 #### [facility] [address] [place], [address] Chloride [Moles/Vol] 102 mmol/L Normal 98-107 [facility] Comment on above: Performed By: #### L 503.6620, L500.2500, L100.0100 #### [facility] [address] [place], [address] CO2 [Moles/Vol] 25.0 mmol/L Normal 21.0-32.0 [facility] Comment on above: Performed By: #### L 503.6620, L500.2500, L100.0100 #### [facility] [address] [place], [address] Creatinine [Mass/Vol] 1.09 mg/dL High 0.55-1.02 [facility] Comment on above: Result Comment: The validity of the calculated GFR GFRAA in patients over 70 years has not been determined. Clinical correlation is essential. Performed By: #### L 503.6620, L500.2500, L100.0100 #### [facility] [address] [place], [address] EST GFR - AA 67 mL/min Normal >60 [facility] Comment on above: Result Comment: Afri can [place] GFR Calc Performed By: #### L 503.6620, L500.2500, L100.0100 #### [facility] [address] [place], [address] GAP 9 Normal 5-15 [facility] Comment on above: Performed By: #### L 503.6620, L500.2500, L100.0100 #### [facility] [address] [place], [address] GFR/1.73 sq M.predicted among non-blacks MDRD (S/P/Bld) [Vol rate/Area] 55 mL/min/{1.73_m2} Low >60 [facility] Comment on above: Result Comment: Non- GFR Calc Performed By: #### L 503.6620, L500.2500, L100.0100 #### [facility] [address] [place], [address] Glucose [Mass/Vol] 97 mg/dL Normal 74-106 [facility] Comment on above: Performed By: #### L 503.6620, L500.2500, L100.0100 #### [facility] [address] [place], [address] Potassium [Moles/Vol] 3.3 mmol/L Low 3.5-5.1 [facility] Comment on above: Performed By: #### L 503.6620, L500.2500, L100.0100 #### [facility] [address] [place], [address] Sodium [Moles/Vol] 136 mmol/L Normal 136-145 [facility] Comment on above: Performed By: #### L 503.6620, L500.2500, L100.0100 #### [facility] [address] [place], [address] Urea nitrogen [Mass/Vol] 22 mg/dL High 7- [facility] Comment on above: Performed By: #### L 503.6620, L500.2500, L100.0100 #### [facility] [address] [place], [address] Basophil percentageOrdered B y: Shavon Valentin on 08-14-2024 Basophils/100 WBC (Bld) 0.9 % 0-1 [facility] Blood urea nitrogen (BUN)/cr eatinine ratioOrdered By: Shavon Valentin on 08-14-2024 Urea nitrogen/Creatinine [Mass ratio] 20.2 mg/mg High 10-20 [facility] CBC W/Diff, Automatedon Absolute Lymph 1.26 X10 3/uL Normal 0.83-4.51 [facility] Comment on above: Performed By: #### L 503.6620, L500.2500, L100.0100 #### [facility] [address] [place], [address] Absolute Neut 5.3 X10 3/uL Normal 2.0-7.7 [facility] Comment on above: Performed By: #### L 503.6620, L500.2500, L100.0100 #### [facility] [address] [place], [address] Basophils/100 WBC (Bld) 0.9 % Normal 0-1 [facility] Comment on above: Performed By: #### L 503.6620, L500.2500, L100.0100 #### [facility] [address] [place], [address] Eosinophils/100 WBC (Bld) 3.1 % Normal 0-5 [facility] Comment on above: Performed By: #### L 503.6620, L500.2500, L100.0100 #### [facility] [address] [place], [address] Erythrocyte distribution width (RBC) [Ratio] 13.4 % Normal 11.6-14.6 [facility] Comment on above: Performed By: #### L 503.6620, L500.2500, L100.0100 #### [facility] [address] [place], [address] Hematocrit (Bld) [Volume fraction] 41.5 % Normal 37-47 [facility] Comment on above: Performed By: #### L 503.6620, L500.2500, L100.0100 #### [facility] [address] [place], [address] Hemoglobin (Bld) [Mass/Vol] 13.4 g/dL Normal 12.0-15.0 [facility] Comment on above: Performed By: #### L 503.6620, L500.2500, L100.0100 #### [facility] [address] [place], [address] IG% 0.300 Normal 0.0-0.9 [facility] Comment on above: Result Comment: IG% - Immature Granulocytes (promyelocytes, myelocytes and metamyelocytes) > 1% indicates that a LEFT SHIFT is Present. Performed By: #### L 503.6620, L500.2500, L100.0100 #### [facility] [address] [place], [address] Lymphocytes/100 WBC (Bld) 16.8 % Low 19-41 [facility] Comment on above: Performed By: #### L 503.6620, L500.2500, L100.0100 #### [facility] [address] [place], [address] MCH (RBC) [Entitic mass] 30.0 pg Normal 27.0-32.0 [facility] Comment on above: Performed By: #### L 503.6620, L500.2500, L100.0100 #### [facility] [address] [place], [address] MCHC (RBC) [Mass/Vol] 32.3 g/dL Normal 32-36 [facility] Comment on above: Performed By: #### L 503.6620, L500.2500, L100.0100 #### [facility] [address] [place], [address] MCV (RBC) [Entitic vol] 92.8 fL Normal 81-99 [facility] Comment on above: Performed By: #### L 503.6620, L500.2500, L100.0100 #### [facility] [address] [place], [address] Monocytes/100 WBC (Bld) 7.9 % Normal 0-10 [facility] Comment on above: Performed By: #### L 503.6620, L500.2500, L100.0100 #### [facility] [address] [place], [address] Neutrophils/100 WBC (Bld) 71.0 % High 47-70 [facility] Comment on above: Performed By: #### L 503.6620, L500.2500, L100.0100 #### [facility] [address] [place], [address] Nucleated RBC (Bld) [#/Vol] 0 10*3/uL Normal 0-5 [facility] Comment on above: Performed By: #### L 503.6620, L500.2500, L100.0100 #### [facility] [address] [place], [address] Platelet mean volume (Bld) [Entitic vol] 10.2 fL Normal 6.2-12.0 [facility] Comment on above: Performed By: #### L 503.6620, L500.2500, L100.0100 #### [facility] [address] [place], [address] Platelets (Bld) [#/Vol] 225 10*3/uL Normal 150-450 [facility] Comment on above: Performed By: #### L 503.6620, L500.2500, L100.0100 #### [facility] [address] [place], [address] RBC (Bld) [#/Vol] 4.47 10*6/uL Normal 4.2-5.4 [facility] Comment on above: Performed By: #### L 503.6620, L500.2500, L100.0100 #### [facility] [address] [place], [address] RDW SD 45.2 fl High 35.1-43.9 [facility] Comment on above: Performed By: #### L 503.6620, L500.2500, L100.0100 #### [facility] [address] [place], [address] WBC (Bld) [#/Vol] 7.5 10*3/uL Normal 4.4-11.0 [facility] Comment on above: Performed By: #### L 503.6620, L500.2500, L100.0100 #### [facility] [address] [place], [address] Carbon dioxide measurementOr dered By: Shavon Valentin on 08-14-2024 CO2 [Moles/Vol] 25.0 mmol/L 21.0-32.0 [facility] Chloride measurementOrdered By: Shavon Valentin on 08-14-2024 Chloride [Moles/Vol] 102 mmol/L 98-107 [facility] Eosinophil percentageOrdered By: Shavon Valentin on 08-14-2024 Eosinophils/100 WBC (Bld) 3.1 % 0-5 [facility] Erythrocyte distribution wid th ratioOrdered By: Shavon Valentin on 08-14-2024 Erythrocyte distribution width (RBC) [Ratio] 13.4 % 11.6-14.6 [facility] Erythrocyte distribution wid th standard deviationOrdered By: Shavon Valentin on 08-14-2024 Erythrocyte distribution width (RBC) [Entitic vol] 45.2 fL High 35.1-43.9 [facility] Estimated glomerular filtrat ion rate (GFR) AmericanOrdered By: Shavon Valentin on 08-14-2024 Estimated GFR (MDRD) Amer 67 mL/min >60 [facility] Comment on above: GFR Calc Glomerular filtration rate ( GFR) estimationOrdered By: Shavon Valentin on 08-14-2024 Estimated GFR (MDRD) Non-Af Amer 55 mL/min Low >60 [facility] Comment on above: Non- GFR Calc Glucose measurementOrdered B y: Shavon Valentin on 08-14-2024 Glucose [Mass/Vol] 97 mg/dL 74-106 [facility] Hematocrit Auto (Bld) [Volum e fraction]Ordered By: Shavon Valentin on 08-14-2024 Hematocrit (Bld) [Volume fraction] 41.5 % 37-47 [facility] Hemoglobin measurementOrdere d By: Shavon Valentin on 08-14-2024 Hemoglobin (Bld) [Mass/Vol] 13.4 g/dL 12.0-15.0 [facility] Immature granulocytes/100 WB C Auto (Bld)Ordered By: Shavon Valentin on 08-14-2024 Immature granulocytes/100 WBC (Bld) 0.300 % 0.0-0.9 [facility] Comment on above: IG% - Immature Granu locytes (promyelocytes, myelocytes and metamyelocytes) > 1% indicates that a LEFT SHIFT is Present. Lymphocytes Auto (Unsp spec) [#/Vol]Ordered By: Shavondali Valentin on 08-14-2024 Lymphocytes (Bld) [#/Vol] 1.26 10*3/uL 0.83-4.51 [facility] Lymphocytes/100 WBC Auto (Un sp spec)Ordered By: Shavon Valentin on 08-14-2024 Lymphocytes/100 WBC (Bld) 16.8 % Low 19-41 [facility] MCV (mean corpuscular volume ) determinationOrdered By: Shavondali Valentin on 08-14-2024 MCV (RBC) [Entitic vol] 92.8 fL 81-99 [facility] Mean corpuscular hemoglobin (MCH) determinationOrdered By: Shavondali Valentin on 08-14-2024 MCH (RBC) [Entitic mass] 30.0 pg 27.0-32.0 [facility] Mean corpuscular hemoglobin concentration (MCHC) determinationOrdered By: Shavon Valentin on 08-14-2024 MCHC (RBC) [Mass/Vol] 32.3 g/dL 32-36 [facility] Mean platelet volume determi nationOrdered By: Shavon Valentin on 08-14-2024 Platelet mean volume (Bld) [Entitic vol] 10.2 fL 6.2-12.0 [facility] Monocyte percentageOrdered B y: Shavon Valentin on 08-14-2024 Monocytes/100 WBC (Bld) 7.9 % 0-10 [facility] Neutrophil percentageOrdered By: Shavon Valentin on 08-14-2024 Neutrophils/100 WBC (Bld) 71.0 % High 47-70 [facility] Nucleated red blood cell per centageOrdered By: Shavon Valentin on 08-14-2024 Nucleated RBC/100 WBC (Bld) [Ratio] 0 % 0-5 [facility] Platelet countOrdered By: Jake Valentin on 08-14-2024 Platelets (Bld) [#/Vol] 225 10*3/uL 150-450 [facility] Potassium measurementOrdered By: Shavon Valentin on 08-14-2024 Potassium [Moles/Vol] 3.3 mmol/L Low 3.5-5.1 [facility] RBC Auto (Bld) [#/Vol]Ordere d By: Shavon Valentin on 08-14-2024 RBC (Bld) [#/Vol] 4.47 10*6/uL 4.2-5.4 [facility] Serum anion gap measurementO rdered By: Shavon Valentin on 08-14-2024 Anion gap [Moles/Vol] 9 mmol/L 5-15 [facility] Serum or plasma calcium juli urement (mass/volume)Ordered By: Shavon Valentin on 08-14-2024 Calcium [Mass/Vol] 9.5 mg/dL 8.5-10.1 [facility] Serum or plasma creatinine m easurement (mass/volume)Ordered By: Shavon Valentin on 08-14-2024 Creatinine [Mass/Vol] 1.09 mg/dL High 0.55-1.02 [facility] Comment on above: The validity of the calculated GFR & GFRAA in patients over 70 years has not been determined. Clinical correlation is essential. Serum or plasma urea nitroge n measurement (mass/volume)Ordered By: Shavon Valentin on 08-14-2024 Urea nitrogen [Mass/Vol] 22 mg/dL High 7-18 [facility] Sodium levelOrdered By: Coy Valentin on 08-14-2024 Sodium [Moles/Vol] 136 mmol/L 136-145 [facility] White blood cell (WBC) count Ordered By: Shavon Valentin on 08-14-2024 WBC (Bld) [#/Vol] 7.5 10*3/uL 4.4-11.0 [facility] Basic Metabolic Profile (BMP )on 06-28-2024 BUN/CRE 19.1 RATIO Normal 10-20 [facility] Comment on above: Performed By: #### L 500.2500 #### [facility] [address] [place], [address] CA,Total 9.4 mg/dL Normal 8.5-10.1 [facility] Comment on above: Performed By: #### L 500.2500 #### [facility] [address] [place], [address] Chloride [Moles/Vol] 104 mmol/L Normal 98-107 [facility] Comment on above: Performed By: #### L 500.2500 #### [facility] [address] [place], [address] CO2 [Moles/Vol] 24.0 mmol/L Normal 21.0-32.0 [facility] Comment on above: Performed By: #### L 500.2500 #### [facility] [address] [place], [address] Creatinine [Mass/Vol] 1.10 mg/dL High 0.55-1.02 [facility] Comment on above: Result Comment: The validity of the calculated GFR GFRAA in patients over 70 years has not been determined. Clinical correlation is essential. Performed By: #### L 500.2500 #### [facility] [address] [place], [address] EST GFR - AA 66 mL/min Normal >60 [facility] Comment on above: Result Comment: Afri can [place] GFR Calc Performed By: #### L 500.2500 #### [facility] [address] [place], [address] GAP 8 Normal 5-15 [facility] Comment on above: Performed By: #### L 500.2500 #### [facility] [address] [place], [address] GFR/1.73 sq M.predicted among non-blacks MDRD (S/P/Bld) [Vol rate/Area] 55 mL/min/{1.73_m2} Low >60 [facility] Comment on above: Result Comment: Non- GFR Calc Performed By: #### L 500.2500 #### [facility] [address] [place], [address] Glucose [Mass/Vol] 94 mg/dL Normal 74-106 [facility] Comment on above: Performed By: #### L 500.2500 #### [facility] [address] [place], [address] Potassium [Moles/Vol] 4.0 mmol/L Normal 3.5-5.1 [facility] Comment on above: Performed By: #### L 500.2500 #### [facility] [address] [place], [address] Sodium [Moles/Vol] 137 mmol/L Normal 136-145 [facility] Comment on above: Performed By: #### L 500.2500 #### [facility] [address] [place], [address] Urea nitrogen [Mass/Vol] 21 mg/dL High 7-18 [facility] Comment on above: Performed By: #### L 500.2500 #### [facility] [address] [place], [address] Blood urea nitrogen (BUN)/cr eatinine ratioOrdered By: Contreras Maxwell on 06-28-2024 Urea nitrogen/Creatinine [Mass ratio] 19.1 mg/mg - [facility] Carbon dioxide measurementOr dered By: Contreras Maxwell on 06-28-2024 CO2 [Moles/Vol] 24.0 mmol/L 21.0-32.0 [facility] Chloride measurementOrdered By: Contreras Maxwell on 06-28-2024 Chloride [Moles/Vol] 104 mmol/L 98-107 [facility] Estimated glomerular filtrat ion rate (GFR) AmericanOrdered By: Contreras Maxwell on 06-28-2024 Estimated GFR (MDRD) Amer 66 mL/min >60 [facility] Comment on above: GFR Calc Glomerular filtration rate ( GFR) estimationOrdered By: Contreras Maxwell on 06-28-2024 Estimated GFR (MDRD) Non-Af Amer 55 mL/min Low >60 [facility] Comment on above: Non- GFR Calc Glucose measurementOrdered B y: Contreras Maxwell on 06-28-2024 Glucose [Mass/Vol] 94 mg/dL 74-106 [facility] Potassium measurementOrdered By: Contreras Maxwell on 06-28-2024 Potassium [Moles/Vol] 4.0 mmol/L 3.5-5.1 [facility] Serum anion gap measurementO rdered By: Contreras Maxwell on 06-28-2024 Anion gap [Moles/Vol] 8 mmol/L 5-15 [facility] Serum or plasma calcium juli urement (mass/volume)Ordered By: Contreras Maxwell on 06-28-2024 Calcium [Mass/Vol] 9.4 mg/dL 8.5-10.1 [facility] Serum or plasma creatinine m easurement (mass/volume)Ordered By: Contreras Maxwell on 06-28-2024 Creatinine [Mass/Vol] 1.10 mg/dL High 0.55-1.02 [facility] Comment on above: The validity of the calculated GFR & GFRAA in patients over 70 years has not been determined. Clinical correlation is essential. Serum or plasma urea nitroge n measurement (mass/volume)Ordered By: Contreras Maxwell on 06-28-2024 Urea nitrogen [Mass/Vol] 21 mg/dL High 7-18 [facility] Sodium levelOrdered By: Contreras Maxwell on 06-28-2024 Sodium [Moles/Vol] 137 mmol/L 136-145 [facility] Stress Reporton 06-20-2024 Stress Report [facility] [address] [place] [address] MR#: [id number] Acct: [id number] Name: FROILAN GARCÍA Rep #: [id number] : 1965 58 From: Shavon Valentin MD Primary Care: Dr. Louis Dobbs MD Status: REG CLI Referring Dr: Shavon Valentin MD Sex: F C Stress Test Report Date: 06/18/2024 Procedure: Pharmacologic stress nuclear imaging study Indications: Palpitations Consent: Per the patient Procedure: The patient underwent pharmacologic (Regadenoson 0.4mg ) evaluation with a peak heart rate of 10 beats per minute (62%predicted maximal heart rate) and a peak blood pressure of 122/82 mmHg. The baseline ECG demonstrated electronic AV sequential pacemaker rhythm. The peak pharmacologic ECG demonstrated no diagnostic changes secondary to electronic pacemaker activity. There were no cardiac dysrhythmias pretest, during pharmacologic infusion, or recovery. There was no complaint of chest discomfort during pharmacologic infusion or recovery. The patient was injected with 11.8 millicuries of technetium 99m Cardiolite and subsequently rest SPECT Cardiolite nuclear imaging was obtained in the horizontal long, vertical long, and short axis views. The patient underwent pharmacologic (Regadenoson) evaluation. The patient was injected with 34.5 millicuries of technetium 99m Cardiolite and subsequently stress SPECT Cardiolite nuclear imaging was obtained in the horizontal long, vertical long, and short axis views. A gated Cardiolite study at peak stress was obtained. The examination was stopped secondary to completion of protocol. Rest and stress SPECT Cardiolite nuclear imaging status post realignment, normalization, and attenuation correction demonstrate a small reversible apical perfusion defect suggestive of ischemia. There is end systolic thickening and brightening. The gated Cardiolite study demonstrates myocardial thickening and inward wall motion. The reported LVEF is 61%. Impression: 1. Pharmacologic (Regadenoson) evaluation 2. Peak pharmacologic ECG with no diagnostic changes. 3. There were no cardiac dysrhythmias pretest, during pharmacologic infusion, or recovery. 5. Small reversible apical perfusion defect that may denote ischemia. Overall low risk stress test with less than 5% of myocardium at risk.. 6. The gated Cardiolite study reports an LVEF of 61%. This note was generated with SafetyCultureation software. It may contain incorrect words, spelling, and punctuation that were not noted in checking the note before signing. 06/20/24 1241 Date Shavon Valentin MD CC: Dr. Shavon Valentin MD; Dr. Louis Dobbs MD Date Dictated: 06/20/241238 Date Transcribed: 06/20/241238 Baster Hand: JAKE Signed Normal [facility] Echo Complete W/ Contraston 06-18-2024 Echo Complete W/ Contrast [facility] [address] [place] [address] Echo Complete W/ Contrast 06/18/24 0807 MR#: [id number] Acct: [id number] Name: FROILAN GARCÍA Rep #: [id number] : 1965 58 From: Shavon Valentin MD Attending Dr: Dr. Shavon Valentin MD Status: REG CLI Ordering Dr: Shavon Valentin MD Date: 06/18/24 Location: CVS Sex: F C Admitted: Reason For Study: Palpitations Procedure This was a 2D Doppler, Color Flow transthoracic echocardiogram. Contrast injection was performed. Exam performed in department. Left Ventricle Normal size and thickness. Mild generalized hypokinesis. Estimated LVEF 40 to 45%. Right Ventricle Mildly dilated right ventricle. ICD or pacer leads identified within the right ventricle. Atria The left atrium is severely enlarged. The right atrium is mildly enlarged. ICD or pacer leads identified within the right atrium. Mitral Valve Bioprosthetic mitral valve appears stable. Mean peak gradient 6.2 mmHg. Gradient from last year was 6.5 mmHg. Tricuspid Valve Moderately severe (3+) tricuspid valve insufficiency. Right ventricular systolic pressure estimated to be 38 mmHg. Aortic Valve Trivial aortic valve insufficiency. Pulmonic Valve The pulmonic valve is not well visualized. Great Vessels Normal sized aortic root. Pericardium/Pleural No pericardial effusion. Medication Diluted definity 2ml given slow IV push to enhance endocardial definition. MMode/2D Measurements Calculations LVIDd: 4.5 cm IVSd: 0.87 cm LVOT diam: 1.9 cm LVIDs: 3.0 cm LVPWd: 1.0 cm RVDd: 3.5 cm FS: 33.5 % LVOT area: 2.9 cm2 asc Aorta Diam: 3.0 cm LAV(MOD-bp): 54.7 ml LVAd ap4: 29.2 cm2 LAV(MOD-bp) Indexed: 27.5 ml/m2 LVLd ap4: 8.1 cm LAV(MOD-sp2): 52.9 ml EDV(MOD-sp4): 88.9 ml LAV(MOD-sp4): 51.9 ml EDV(sp4-el): 89.7 ml LVAs ap4: 19.7 cm2 LVLs ap4: 7.2 cm ESV(MOD-sp4): 44.8 ml ESV(sp4-el): 45.9 ml EF(MOD-sp4): 49.6 % EF(sp4-el): 48.8 % LVAd ap2: 29.5 cm2 SV(MOD-sp4): 44.1 ml SV(MOD-sp2): 50.6 ml LVLd ap2: 7.7 cm SI(MOD-sp4): 22.2 ml/m2 SI(MOD-sp2): 25.4 ml/m2 EDV(MOD-sp2): 95.0 ml EDV(sp2-el): 95.7 ml LVAs ap2: 19.7 cm2 LVLs ap2: 7.3 cm ESV(MOD-sp2): 44.4 ml ESV(sp2-el): 44.9 ml EF(MOD-sp2): 53.2 % SV(sp4-el): 43.8 ml LA A4 area: 18.7 cm2 RA A4 area: 11.1 cm2 TAPSE: 1.8 cm Time Measurements MV dec time: 0.36 sec Doppler Measurements Calculations MV E max adair: 131.0 cm/sec MV V2 max: 160.4 cm/sec MV dec slope: 365.8 cm/sec2 MV A max adair: 149.6 cm/sec MV max P.3 mmHg MV E/A: 0.88 MV V2 mean: 119.8 cm/sec MV mean P.2 mmHg MV V2 VTI: 35.5 cm MVA(VTI): 1.9 cm2 Ao V2 max: 161.9 cm/sec LV V1 max: 114.3 cm/sec SV(LVOT): 65.9 ml Ao max P.5 mmHg LV V1 max P.2 mmHg Ao V2 mean: 118.3 cm/sec LV V1 mean P.2 mmHg Ao mean P.0 mmHg LV V1 mean: 85.4 cm/sec Ao V2 VTI: 30.6 cm LV V1 VTI: 22.4 cm AV (velocity ratio): 0.73 TUAN(I,D): 2.2 cm2 TUAN(V,D): 2.1 cm2 PA V2 max: 82.4 cm/sec TR max adair: 271.4 cm/sec TR max P.5 mmHg ECHO/Echo Complete W/ Contrast Interpretation Summary Mild generalized hypokinesis. Estimated LVEF 40 to 45%. Mildly dilated right ventricle. The left atrium is severely enlarged. The right atrium is mildly enlarged. Bioprosthetic mitral valve appears stable. Mean peak gradient 6.2 mmHg. Gradient from last year was 6.5 mmHg. Moderately severe (3+) tricuspid valve insufficiency. Right ventricular systolic pressure estimated to be 38 mmHg. Ordering Physician: Shavon Valentin Referring Physician: Louis Dobbs Performed By: Alberta Maxwell RVT, RDCS and Student 06/20/24 1051 Date Shavon Valentin MD CC: Dr. Shavon Valentin MD; Dr. Louis Dobbs MD Date Dictated: 06/18/24 0807 Date Transcribed: 06/20/24 105 Baster Hand: Signed Normal [facility] CBC panel Auto (Bld)on 06-17 Erythrocyte distribution width (RBC) [Ratio] 13.2 % 11.5 - 15.0 % [facility] Hematocrit (Bld) [Volume fraction] 45.9 % 36.0 - 46.0 % [facility] Hemoglobin (Bld) [Mass/Vol] 14.9 g/dL 11.5 - 15.5 g/dL [facility] Interpretation and review of laboratory results Normal [facility] MCH (RBC) [Entitic mass] 30.4 pg 26.0 - 34.0 pg [facility] MCHC (RBC) [Mass/Vol] 32.5 g/dL 30.5 - 36.0 g/dL [facility] MCV (RBC) [Entitic vol] 93.7 fL 80.0 - 100.0 fL [facility] Nucleated RBC (Bld) [#/Vol] NINF [facility] Platelet mean volume (Bld) [Entitic vol] 10.3 fL 9.0 - 12.7 fL [facility] Platelets (Bld) [#/Vol] 221 10*3/uL [facility] RBC (Bld) [#/Vol] 4.90 10*6/uL 3.90 - 5.2 0 m/uL [facility] WBC (Bld) [#/Vol] 9.28 10*3/uL [facility] Erythrocyte distribution width (RBC) [Ratio] 13.2 % Normal 11.5-15.0 [facility] Comment on above: Order Comment: Speci men Type: BLOOD SPECIMENOrdering Facility: [facility] Address: [address] [place] [address] Performed By: #### 5 8410-2 ####[facility] LABIA [id number] [place] [address] [place] Hematocrit (Bld) [Volume fraction] 45.9 % Normal 36.0-46.0 [facility] Comment on above: Order Comment: Speci men Type: BLOOD SPECIMENOrdering Facility: [facility] Address: [address] [place] [address] Performed By: #### 5 8410-2 ####[facility] LABCLIA [id number] [place] [address] [place] Hemoglobin (Bld) [Mass/Vol] 14.9 g/dL Normal 11.5-15.5 [facility] Comment on above: Order Comment: Speci men Type: BLOOD SPECIMENOrdering Facility: [facility] Address: [address] [place] [address] Performed By: #### 5 8410-2 ####[facility]IA [id number] [place] [address] [place] MCH (RBC) [Entitic mass] 30.4 pg Normal 26.0-34.0 [facility] Comment on above: Order Comment: Speci men Type: BLOOD SPECIMENOrdering Facility: [facility] Address: [address] [place] [address] Performed By: #### 5 8410-2 ####[facility] LABIA [id number] [place] [address] [place] MCHC (RBC) [Mass/Vol] 32.5 g/dL Normal 30.5-36.0 [facility] Comment on above: Order Comment: Speci men Type: BLOOD SPECIMENOrdering Facility: [facility] Address: [address] [place] [address] Performed By: #### 5 8410-2 ####[facility]IA [id number] [place] [address] [place] MCV (RBC) [Entitic vol] 93.7 fL Normal 80.0-100.0 [facility] Comment on above: Order Comment: Speci men Type: BLOOD SPECIMENOrdering Facility: [facility] Address: [address] [place] [address] Performed By: #### 5 8410-2 ####[facility]IA [id number] [place] [address] [place] Nucleated RBC (Bld) [#/Vol] 10*3/uL Normal <0.01 [facility] Comment on above: Order Comment: Speci men Type: BLOOD SPECIMENOrdering Facility: [facility] Address: [address] [place] [address] Performed By: #### 5 8410-2 ####[facility] LABCLIA [id number] [place] [address] [place] Platelet mean volume (Bld) [Entitic vol] 10.3 fL Normal 9.0-12.7 [facility] Comment on above: Order Comment: Speci men Type: BLOOD SPECIMENOrdering Facility: [facility] Address: [address] [place] [address] Performed By: #### 5 8410-2 ####[facility]IA [id number] [place] [address] [place] Platelets (Bld) [#/Vol] 221 10*3/uL Normal 150-400 [facility] Comment on above: Order Comment: Speci men Type: BLOOD SPECIMENOrdering Facility: [facility] Address: [address] [place] [address] Performed By: #### 5 8410-2 ####[facility]IA [id number] [place] [address] [place] RBC (Bld) [#/Vol] 4.90 10*6/uL Normal 3.90-5.20 [facility] Comment on above: Order Comment: Speci men Type: BLOOD SPECIMENOrdering Facility: [facility] Address: [address] [place] [address] Performed By: #### 5 8410-2 ####[facility] LABIA [id number] [place] [address] [place] WBC (Bld) [#/Vol] 9.28 10*3/uL Normal 3.70-11.00 [facility] Comment on above: Order Comment: Speci men Type: BLOOD SPECIMENOrdering Facility: [facility] Address: [address] [place] [address] Performed By: #### 5 8410-2 ####[facility] LABIA [id number] [place] [address] [place] CNOVon 06-17-2024 CNOV Office Visit (INTMWS ) -------- FROILAN GARCÍA ([id number]) 1965 F Date Time Provider Department 06/17/24 9:20 AM JUDY HAYWOOD INTMWS During your visit today, we recorded the following information about you: Pulse Respiration Blood pressure Weight 83/minute 18/minute 110/68 94.5 kg Height 1.626 m Judy Haywood, HYBRID TESTER.CONTRACT GRAPHIC DESIGNER 06/17/2024 10:11 AM Signed Froilan García is a 58 year old female here for a Medicare wellness visit. Medicare Health Risk Assessment General Health Fair Exercise: Minutes/Day 0 min Exercise: Days/Week 0 days Alcohol: Daily Use Never Alcohol: Drinks/Day Patient does not drink Alcohol: 6 or more drinks Never Feel off balance Yes Concerns: Teeth/Dentures No Concerns: Sexual function No Troubled by feelings Frequency: Eating healthy diet More than half the days ADLs requiring help Housework; Cooking; Grocery shopping; Taking medications; Handling finances; Driving Safety precautions in home/vehicle Yes Smoke, vape, chews tobacco No Difficulty hearing No Difficulty seeing No Current Providers Specialists: I have reviewed specialist-related care of the patient in the medical record. Current care team: Patient Care Team: Louis Dobbs MD as PCP - General Outside specialists seen: [facility], [facility] Medical/Family history review Reviewed and updated problem list, medical/surgical/family/ social history, medications, and allergies. Opioid use review Opioid Medications (last 90 days) No data to display Anxiety/Depression screening Patient already diagnosed with anxiety and depression. Recommendation: no further intervention at this time Cognitive screening Mini Cog Score: 2 Cognitive screening reviewed and Patient has known cognitive impairment. Functional Observation Was the patient's Timed Up AND Go test unsteady or >= 12 seconds? Yes Advance Care Planning Patient did not wish or was not able to name a surrogate decision maker or provide an advance care plan Measurements BP 110/68 Pulse 83 Resp 18 Ht 162.6 cm (5' 4) Wt 94.5 kg (208 lb 5.4 oz) LMP (LMP Unknown) SpO2 93% BMI 35.76 kg/m? Vision Screening: Follows with optometry/ophthalmology Assessment/Plan Medicare annual wellness visit, subsequent (Z00.00) - Counseled on healthy diet and regular exercise - Fall avoidance information provided - Personalized prevention plan provided - Discussed need for and benefit of weight loss. BMI 35.76 kg/(m2) Additional Concerns The following concerns were also discussed with the patient: Referred to cardiology for SOB, initial appointment on 06/05. Echocardiogram and Lexiscan stress test ordered. She was started on Lasix. Patient reports no improvement in SOB, also gets fatigued easily. She has COPD, denies cough or wheezing. Has not used albuterol inhaler in a couple years. She quit smoking about one year ago. HTN-Medication changes:No Taking all medications as prescribed: Yes Side effects: No Home BP's: No Denies: headache, chest pain, palpitations, dyspnea, and peripheral edema. Last 3 Encounter BP Readings: Date: BP: 06/17/2024 110/68 05/23/2023 118/84 12/08/2022 124/82 GERD: Symptoms controlled with Protonix. Denies heartburn/reflux, dysphagia, bloating, abdominal pain, black/bloody stools, vomiting, decreased appetite Anxiety/depression: Patient was under the care of psychiatry however she stopped going to appointments and all of her psych medications on her own due to issues with brain fog and difficulty walking. She reports since stopping medications these symptoms have dramatically improved. She admits to feeling anxious a lot but does not interfere with sleep or daily activities. She denies feeling down, depressed, hopeless, anhedonia, SI or HI. Afib- Anticoagulation: Yes; Rate control: Yes; rhythm control: No She is compliant with medication(s) and is tolerating med(s) without any side effects. Dizziness/lightheadednes s: No Syncope: No Gait disturbance: secondary to hemiparesis from CVA. She denies any recent falls. Some days she does need to get around with a wheelchair. She has a home health aide that assists with a majority of her ADL's. PHYSICAL EXAM BP 110/68 Pulse 83 Resp 18 Ht 162.6 cm (5' 4) Wt 94.5 kg (208 lb 5.4 oz) LMP (LMP Unknown) SpO2 93% BMI 35.76 kg/m? GENERAL: well appearing, alert, in no acute distress CARDIOVASCULAR: regular rate and rhythm. No murmur, rubs or gallops. PULMONARY: clear to auscultation, no wheezing, rhonchi, or crackles EXTREMITY: no lower extremity edema. No skin discoloration. ASSESSMENT/PLAN: 1. Medicare annual wellness visit, subsequent - ICD9: V70.0, ICD10: Z00.00 (primary diagnosis) See medicare wellness plan 2. Shortness of breath - ICD9: 786.05, ICD10: R06.02 Echocardiogram ordered by cardiology, s (more content not included)... Normal [facility] Ferritin SerPl-mCncon 2023 Ferritin [Mass/Vol] 364.0 ng/mL High 14.7-205.1 [facility] Comment on above: Order Comment: Yadira quigley Type: BLOOD SPECIMENOrdering Facility: [facility] Address: [address] [place] [address] Performed By: #### 2 4331-1, 2132-9, 2276-4, 54560-1 ####[facility] LABCLIA [id number] [place] [address] [place] HbA1c (Bld)on 06-17-2024 Average glucose Estimated from glycated hemoglobin (Bld) [Mass/Vol] 108 mg/dL Normal [facility] Comment on above: Order Comment: Yadira quigley Type: BLOOD SPECIMENOrdering Facility: [facility] Address: [address] [place] [address] Result Comment: eAG: (Estimated average glucose) is a calculated value from HgbA1c and is customer retention representative of the average blood glucose level in the last 2-3 month period. Performed By: #### 5 5454-3 ####[facility] LABCLIA [id number] [place] [address] [place] HbA1c (Bld) [Mass fraction] 5.4 % Normal 4.3-5.6 [facility] Comment on above: Order Comment: Speci men Type: BLOOD SPECIMENOrdering Facility: [facility] Address: [address] [place] [address] Result Comment: Amer [place] Diabetes Association guidelines indicate that patients with HgbA1c in the range 5.7-6.4% are at increased risk for development of diabetes, and intervention by lifestyle modification may be beneficial. HgbA1c greater or equal to 6.5% is considered diagnostic of diabetes. Performed By: #### 5 5454-3 ####[facility] LABCLIA [id number] [address] [address] [place] Iron and Iron binding capaci ty panelon 06-17-2024 Iron [Mass/Vol] 76 ug/dL Normal 41-186 [facility] Comment on above: Order Comment: Speci men Type: BLOOD SPECIMENOrdering Facility: [facility] Address: [address] [place] [address] Performed By: #### 2 4331-1, 9, 2275-4, 47211-9 ####[facility] LABIA [id number] [place] [address] [place] Iron binding capacity [Mass/Vol] 262 ug/dL Normal 232-386 [facility] Comment on above: Order Comment: Speci men Type: BLOOD SPECIMENOrdering Facility: [facility] Address: [address] [place] [address] Performed By: #### 2 4331-1, 2132-04, 2275-4, 58782-3 ####[facility] LABIA [id number] [place] [address] [place] Iron/TIBC [Molar ratio] 29.0 % Normal 15.0-57.0 [facility] Comment on above: Order Comment: Speci men Type: BLOOD SPECIMENOrdering Facility: [facility] Address: [address] [place] [address] Performed By: #### 2 4331-1, 9, 2275-11, 24426-4 ####[facility] LABCLIA [id number] [address] [address] [place] Lipid 1996 panelon 4 Cholesterol [Mass/Vol] 152 mg/dL Normal <200 [facility] Comment on above: Order Comment: Speci men Type: BLOOD SPECIMENOrdering Facility: [facility] Address: [address] [place] [address] Result Comment: <200 mg/dL, Desirable 200-239 mg/dL, Borderline high >239 mg/dL, High Performed By: #### 2 4331-1, 2132-04, 2275-11, 49017-2 ####[facility] LABCLIA [id number] [place] [address] [place] Cholesterol in HDL [Mass/Vol] 53 mg/dL Normal >39 [facility] Comment on above: Order Comment: Speci men Type: BLOOD SPECIMENOrdering Facility: [facility] Address: [address] [place] [address] Result Comment: 40-5 9 mg/dL, Acceptable >59 mg/dL, High: Negative risk factor for coronary heart disease <40 mg/dL, Low: Positive risk factor for coronary heart disease Performed By: #### 2 4331-1, 2132-04, 2275-11, 91871-5 ####[facility] LABCLIA [id number] [place] [address] [place] Cholesterol in LDL [Mass/Vol] 79 mg/dL Normal <100 [facility] Comment on above: Order Comment: Speci men Type: BLOOD SPECIMENOrdering Facility: [facility] [facility] Address: [address] [place] [address] Result Comment: <100 mg/dL, Optimal 100-129 mg/dL, Near optimal/above optimal 130-159 mg/dL, Borderline high 160-189 mg/dL, High >189 mg/dL, Very high Secondary prevention optimal LDL Cholesterol levels are recommended to be < 70 mg/dL Performed By: #### 2 4331-1, 2132-04, 2275-11, 61409-4 ####[facility] LABCLIA [id number] [place] [address] [place] Cholesterol in LDL/Cholesterol in HDL [Mass ratio] 1.49 {ratio} Normal <2.54 [facility] Comment on above: Order Comment: Speci men Type: BLOOD SPECIMENOrdering Facility: [facility] Address: [address] [place] [address] Result Comment: Jitendra parr: 1. National Cholesterol Education Program ATP III Guideline At-A-Glance Quick Desk Reference: National Heart, Lung, and Blood [place]. National Institutes of Health. 2001: NIH Publication No. 01-3305. 2. An International Atherosclerosis Society position paper: global recommendations for the management of dyslipidemia: executive summary, Atherosclerosis. 2014: 232(2):410-413. Performed By: #### 2 4331-1, 2132-04, 2275-11, 04362-2 ####[facility] LABCLIA [id number] [place] [address] [place] Cholesterol in VLDL [Mass/Vol] 20 mg/dL Normal <30 [facility] Comment on above: Order Comment: Yadira quigley Type: BLOOD SPECIMENOrdering Facility: [facility] Address: [address] [place] [address] Performed By: #### 2 4331-1, 2132-04, 2275-4, 29560-7 ####[facility] LABIA [id number] [place] [address] [place] Cholesterol non HDL [Mass/Vol] 99 mg/dL Normal <130 [facility] Comment on above: Order Comment: Stevei men Type: BLOOD SPECIMENOrdering Facility: [facility] Address: [address] [place] [address] Result Comment: <130 mg/dL, Optimal 130-159 mg/dL, Near optimal/above optimal 160-189 mg/dL, Borderline high 190-219 mg/dL, High >219 mg/dL, Very high Secondary prevention optimal non HDL Cholesterol levels are recommended to be <100 mg/dL Performed By: #### 2 4331-1, 2131-9, 2275-4, 88954-4 ####[facility] LABCLIA [id number] [place] [address] [place] Cholesterol.total/Cho lesterol in HDL [Mass ratio] 2.87 {ratio} Normal <5.10 [facility] Comment on above: Order Comment: Speci men Type: BLOOD SPECIMENOrdering Facility: [facility] Address: [address] [place] [address] Performed By: #### 2 4331-1, 9, 2275-4, 39521-1 ####[facility] LABIA [id number] [place] [address] [place] FASTING TIME 12 hrs Normal [facility] Comment on above: Order Comment: Speci men Type: BLOOD SPECIMENOrdering Facility: [facility] Address: [address] [place] [address] Performed By: #### 2 4331-1, 9, 4, 85467-5 ####[facility] LABIA [id number] [place] [address] [place] Triglyceride [Mass/Vol] 98 mg/dL Normal <150 [facility] Comment on above: Order Comment: Speci men Type: BLOOD SPECIMENOrdering Facility: [facility] Address: [address] [place] [address] Result Comment: <150 mg/dL, Normal 150-199 mg/dL, Borderline high 200-499 mg/dL, High >499 mg/dL, Very high Performed By: #### 2 4331-1, 2131-9, 4, 15604-0 ####[facility] LABCLIA [id number] [place] [address] [place] Vit B12 [facility] 11-11-2 024 Cobalamin (Vitamin B12) [Mass/Vol] 704 pg/mL Normal 232-1245 [facility] Comment on above: Order Comment: Speci men Type: BLOOD SPECIMENOrdering Facility: [facility] Address: [address] [place] [address] Performed By: #### 2 4331-1, 2132-9, 2276-4, 11527-7 ####[facility] LABCLIA [id number] [id number] STATES OF [facility] Basic Metabolic Profile (BMP )on 06-12-2024 BUN/CRE 16.9 RATIO Normal 10-20 [facility] Comment on above: Performed By: #### L 500.2500 #### [facility] [address] [place] [id number] [place],Total 8.8 mg/dL Normal 8.5-10.1 [facility] Comment on above: Performed By: #### L 500.2500 #### [facility] [address] [place], [address] Chloride [Moles/Vol] 104 mmol/L Normal 98-107 [facility] Comment on above: Performed By: #### L 500.2500 #### [facility] [address] [place], [address] CO2 [Moles/Vol] 26.0 mmol/L Normal 21.0-32.0 [facility] Comment on above: Performed By: #### L 500.2500 #### [facility] [address] [place], [address] Creatinine [Mass/Vol] 1.18 mg/dL High 0.55-1.02 [facility] Comment on above: Result Comment: The validity of the calculated GFR GFRAA in patients over 70 years has not been determined. Clinical correlation is essential. Performed By: #### L 500.2500 #### [facility] [address] [place], [address] EST GFR - AA 61 mL/min Normal >60 [facility] Comment on above: Result Comment: Afri can [place] GFR Calc Performed By: #### L 500.2500 #### [facility] [address] [place], [address] GAP 9 Normal 5-15 [facility] Comment on above: Performed By: #### L 500.2500 #### [facility] [address] [place], [address] GFR/1.73 sq M.predicted among non-blacks MDRD (S/P/Bld) [Vol rate/Area] 50 mL/min/{1.73_m2} Low >60 [facility] Comment on above: Result Comment: Non- GFR Calc Performed By: #### L 500.2500 #### [facility] [address] [place], [address] Glucose [Mass/Vol] 130 mg/dL High 74-106 [facility] Comment on above: Result Comment: Fast ing Glucose result greater than or equal to 126 mg/dL suggests DIABETES MELLITUS per A.D.A. criteria. Performed By: #### L 500.2500 #### [facility] [address] [place], [address] Potassium [Moles/Vol] 3.1 mmol/L Low 3.5-5.1 [facility] Comment on above: Performed By: #### L 500.2500 #### [facility] [address] [place], [address] Sodium [Moles/Vol] 139 mmol/L Normal 136-145 [facility] Comment on above: Performed By: #### L 500.2500 #### [facility] [address] [place], [address] Urea nitrogen [Mass/Vol] 20 mg/dL High 7-18 [facility] Comment on above: Performed By: #### L 500.2500 #### [facility] [address] [place], [address] Cardiology Visit Reporton Cardiology Visit Report [facility] [address] [place] [address] OFFICE VISIT Date of Service: 06/05/24 MR#: [id number] Acct: [id number] Name: FROILAN GARCÍA Rep #: [id number] : 1965 Provider: Dr. Shavon Valentin MD Age/Sex: 58/F Location: [facility] [place] Status: Signed HPI HPI History of Present Illness Details: This lady has past medical history significant for rheumatic heart disease status post mitral valve replacement with a bioprosthetic valve about 15 years ago. Also history of paroxysmal atrial fibrillation and sick sinus syndrome status post permanent pacemaker placement. She also has a history of embolic CVA. Complains of shortness of breath with moderate to strenuous exertion. Denies any chest pains. No orthopnea. No PND. No ankle edema. Intake Vital Signs 03/09/24 12:58 06/05/24 07:43 Height 5 ft 2 in 5 ft 2 in Weight: 208 lb BMI 38.0 BP 137/78 H Blood Pressure Location Lt brachial Position Sitting Respiration 18 Pulse 82 Pulse Source NIBP Intake Visit Reasons: O/D for FU Last seen 10/14/22 [employer] Required: No Accompanied by: Self Is patient in pain?: No Allergies amoxicillin (Amoxicillin) Allergy (Verified 06/05/24 08:55) Hives latex Allergy (Verified 06/05/24 08:55) Rash lisinopril Allergy (Verified 06/05/24 08:55) Unknown Penicillins Allergy (Verified 06/05/24 08:55) Hives venom-honey bee (bee venom (honey bee)) Allergy (Verified 06/05/24 08:55) Swelling ciprofloxacin (From Cipro) Adverse Reaction (Verified 06/05/24 08:55) Nausea/Vom/Diarrhea Medications ???Medication ???Instructions ???Recorded ???Confirmed ???Type cholecalciferol (vitamin D3) 125 125 mcg PO DAILY supplement 12/14/21 06/05/24 History mcg (5,000 unit) capsule rosuvastatin 5 mg tablet 5 mg PO QHS CHOLESTEROL 12/14/21 06/05/24 History acetaminophen 500 mg tablet 500 mg PO Q6H PRN pain/fever 02/16/22 06/05/24 History amlodipine 10 mg tablet 10 mg PO DAILY HTN 02/16/22 06/05/24 History ferrous sulfate 325 mg (65 mg 325 mg PO BID 10/14/22 06/05/24 History iron) tablet apixaban 5 mg tablet (Eliquis) 5 mg PO BID #60 tabs 09/28/23 06/05/24 Rx ascorbate calcium (vitamin C) 500 500 mg PO QDAY 06/05/24 06/05/24 History mg tablet pantoprazole 20 mg tablet,delayed 20 mg PO QDAY 06/05/24 06/05/24 History release potassium chloride PO 06/05/24 06/05/24 History Ejection fraction %: 50 Have you fallen in the past year?: Yes (2 falls; loss of balance; no major injury) [facility] Medical History AAA (abdominal aortic aneurysm) Acute UTI Anemia Anxiety Asthma Bipolar disorder Brain aneurysm CKD (chronic kidney disease) COPD (chronic obstructive pulmonary disease) CVA (cerebral vascular accident) Depressive disorder Dysphagia as late effect of cerebrovascular accident (CVA) 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 classified elsewhere Former smoker Hemiparesis due to old cerebrovascular accident retirement (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 anticoagulants retirement current use of anticoagulant Mitral regurgitation Non-ischemic cardiomyopathy Schizophrenia Sick sinus syndrome Stroke/cerebrovascular accident Tardive dyskinesia Tobacco use Unsteady gait Surgical History History of History of mitral valve replacement with bioprosthetic valve (07/23/09) History of partial colectomy Presence of cardiac pacemaker (09/21/20) Social History household members: children housing: apartment current occupational status: unemployed Smoking Status: Former smoker quit date: 07/30/23 second hand exposure: Yes alcohol intake: current alcohol intake frequency: holidays/special occasions only details: RARELY substance use type: does not use caffeine: Yes Type: carbonated beverages Number of servings: 1 what type of physical activity do you participate in: none seatbelt use: always ROS Const Const: Positive for fatigue and weakness; Negative for headache(s) or weight gain ENT ENT: Positive for dizziness (only in the shower per pt) and balance problems; Negative for headache(s) or Nosebleed/epistaxis Cardio Chest Pain: No Palpitations: Yes (with walking per pt. Unsure if out of shape or palpitations) feels like its: fast Edema: None Muscle aches with walking: None Resp Respiratory: Negative for SOB with activity, SOB at rest or SOB orthopnea SOB lying down GI GI: Negative nausea, vomiting or heartburn Musc Musc: Positive for muscle aches/ myalgia (self administered potassium ), joint pain (arthritis; chronic; hands) and balance problems; Negative for muscle weakness Neuro Neuro: Positive for diz (more content not included)... Normal [facility] Absolute lymphocyte countOrd ered By: Merna Scherer on 07-25-2023 Lymphocytes Auto (Unsp spec) [#/Vol] 1.21 10*3/uL 0.83-4.51 [facility] Basophil percentageOrdered B y: Merna Scherer on 07-25-2023 Basophils/100 WBC (Bld) 0.5 % 0-1 [facility] Chloride [Moles/Vol] 108 mmol/L 98-107 [facility] Eosinophils/100 WBC (Bld) 0.0 % 0-5 [facility] Glucose [Mass/Vol] 116 mg/dL 74-106 [facility] Comment on above: Fasting Glucose resu lt from 100 to 125 mg/dL suggests IMPAIRED HOMEOSTASIS per A.D.A. criteria. Neutrophils (Bld) [#/Vol] 6.1 10*3/uL 2.0-7.7 [facility] Neutrophils/100 WBC (Bld) 78.2 % 47-70 [facility] Potassium [Moles/Vol] 4.6 mmol/L 3.5-5.1 [facility] Comment on above: Slight Hemolysis, Re sult may be falsely increased. Sodium [Moles/Vol] 140 mmol/L 136-145 [facility] WBC (Bld) [#/Vol] 7.8 10*3/uL 4.4-11.0 [facility] Blood erythrocytes count (nu mber/volume)Ordered By: Merna Scherer on 07-25-2023 RBC (Bld) [#/Vol] 4.69 10*6/uL 4.2-5.4 [facility] Blood hemoglobin measurement (mass/volume)Ordered By: Merna Scherer on 07-25-2023 Hemoglobin (Bld) [Mass/Vol] 14.7 g/dL 12.0-15.0 [facility] Blood lymphocytes/100 leukoc ytesOrdered By: Merna Scherer on 07-25-2023 Lymphocytes/100 WBC (Bld) 15.6 % 19-41 [facility] Blood monocytes/100 leukocyt esOrdered By: Merna Scherer on 07-25-2023 Monocytes/100 WBC (Bld) 5.3 % 0-10 [facility] Blood platelet mean volumeOr dered By: Merna Scherer on 07-25-2023 Platelet mean volume (Bld) [Entitic vol] 10.1 fL 6.2-12.0 [facility] Determination of erythrocyte mean corpuscular volume (MCV)Ordered By: Merna Scherer on 07-25-2023 MCV (RBC) [Entitic vol] 95.5 fL 81-99 [facility] Hematocrit Auto (Bld) [Volum e fraction]Ordered By: Merna Scherer on 07-25-2023 Hematocrit (Bld) [Volume fraction] 44.8 % 37-47 [facility] - Chemistry and C hemistry - challengeOrdered By: Merna Scherer on 07-25-2023 CO2 [Moles/Vol] 24.0 mmol/L 21.0-32.0 [facility] Urea nitrogen/Creatinine [Mass ratio] 18.0 mg/mg 10-20 [facility] - Hematology and Cell countsOrdered By: Merna Scherer on 07-25-2023 Erythrocyte distribution width (RBC) [Entitic vol] 45.8 fL 35.1-43.9 [facility] Erythrocyte distribution width (RBC) [Ratio] 13.0 % 11.6-14.6 [facility] Immature granulocytes/100 WBC (Bld) 0.400 % 0.0-0.9 [facility] Comment on above: IG% - Immature Granu locytes (promyelocytes, myelocytes and metamyelocytes) > 1% indicates that a LEFT SHIFT is Present. MCH (RBC) [Entitic mass] 31.3 pg 27.0-32.0 [facility] Nucleated RBC/100 WBC (Bld) [Ratio] 0 % 0-5 [facility] MCHC Auto (RBC) [Mass/Vol]Or dered By: Merna Scherer on 07-25-2023 MCHC (RBC) [Mass/Vol] 32.8 g/dL 32-36 [facility] No Panel InformationOrdered By: Merna Scherer on 07-25-2023 Estimated Creatinine Clearance Calc 56.49 ml/min [facility] Estimated GFR (MDRD) Amer 85 mL/min >60 [facility] Comment on above: GFR Calc Estimated GFR (MDRD) Non-Af Amer 70 mL/min >60 [facility] Comment on above: Non- GFR Calc Thyroid Stimulating Hormone (TSH) 0.51 uIU/mL 0.358-3.74 [facility] Platelets bldOrdered By: Silvana Scherer on 07-25-2023 Platelets (Bld) [#/Vol] 174 10*3/uL 150-450 [facility] Serum or plasma calcium juli urement (mass/volume)Ordered By: Merna Scherer on 07-25-2023 Calcium [Mass/Vol] 9.2 mg/dL 8.5-10.1 [facility] Serum or plasma creatinine m easurement (mass/volume)Ordered By: Merna Scherer on 07-25-2023 Creatinine [Mass/Vol] 0.89 mg/dL 0.55-1.02 [facility] Comment on above: The validity of the calculated GFR & GFRAA in patients over 70 years has not been determined. Clinical correlation is essential. Serum or plasma urea nitroge n measurement (mass/volume)Ordered By: Merna Scherer on 07-25-2023 Urea nitrogen [Mass/Vol] 16 mg/dL 7-18 [facility] Thin prep Papanicolaou smear with manual screeningOrdered By: Merna Scherer on 07-25-2023 Thin prep Papanicolaou smear with manual screening 8 5-15 [facility] Absolute lymphocyte countOrd ered By: Lynn Conti on 07-24-2023 Lymphocytes Auto (Unsp spec) [#/Vol] 1.63 10*3/uL 0.83-4.51 [facility] Basophil percentageOrdered B y: Lynn Gallito on 07-24-2023 Basophils/100 WBC (Bld) 1.0 % 0-1 [facility] Chloride [Moles/Vol] 110 mmol/L 98-107 [facility] Eosinophils/100 WBC (Bld) 3.3 % 0-5 [facility] Glucose [Mass/Vol] 91 mg/dL 74-106 [facility] Neutrophils (Bld) [#/Vol] 5.6 10*3/uL 2.0-7.7 [facility] Neutrophils/100 WBC (Bld) 67.7 % 47-70 [facility] Potassium [Moles/Vol] 4.4 mmol/L 3.5-5.1 [facility] Comment on above: Slight Hemolysis, Re sult may be falsely increased. Sodium [Moles/Vol] 141 mmol/L 136-145 [facility] WBC (Bld) [#/Vol] 8.2 10*3/uL 4.4-11.0 [facility] Blood erythrocytes count (nu mber/volume)Ordered By: Lynn Conti on 07-24-2023 RBC (Bld) [#/Vol] 4.74 10*6/uL 4.2-5.4 [facility] Blood hemoglobin measurement (mass/volume)Ordered By: Lynn Conti on 07-24-2023 Hemoglobin (Bld) [Mass/Vol] 15.3 g/dL 12.0-15.0 [facility] Blood lymphocytes/100 leukoc ytesOrdered By: Lynn Conti on 07-24-2023 Lymphocytes/100 WBC (Bld) 19.9 % 19-41 [facility] Blood monocytes/100 leukocyt esOrdered By: Lynn Conti on 07-24-2023 Monocytes/100 WBC (Bld) 7.9 % 0-10 [facility] Blood platelet mean volumeOr dered By: Lynn Conti on 07-24-2023 Platelet mean volume (Bld) [Entitic vol] 9.5 fL 6.2-12.0 [facility] Determination of erythrocyte mean corpuscular volume (MCV)Ordered By: Lynn Conti on 07-24-2023 MCV (RBC) [Entitic vol] 99.8 fL 81-99 [facility] Hematocrit Auto (Bld) [Volum e fraction]Ordered By: Lynn Conti on 07-24-2023 Hematocrit (Bld) [Volume fraction] 47.3 % 37-47 [facility] Influenza virus A and B and SARS-CoV-2 (COVID-19) Ag panel - Upper respiratory specimOrdered By: Lynn Conti on 07-24-2023 SARS-CoV-2 & FLU Antigen (Rapid) Influenzae A [facility] SARS-CoV-2 (COVID-19) RNA ANGELINE+probe Ql (Resp) [facility] - Chemistry and C hemistry - challengeOrdered By: Lynn Conti on 07-24-2023 CO2 [Moles/Vol] 26.0 mmol/L 21.0-32.0 [facility] Natriuretic peptide B (Bld) [Mass/Vol] 34.1 pg/mL 0-100 [facility] Urea nitrogen/Creatinine [Mass ratio] 11.7 mg/mg 10-20 [facility] - Hematology and Cell countsOrdered By: Lynn Conti on 07-24-2023 Erythrocyte distribution width (RBC) [Entitic vol] 48.0 fL 35.1-43.9 [facility] Erythrocyte distribution width (RBC) [Ratio] 13.0 % 11.6-14.6 [facility] Immature granulocytes/100 WBC (Bld) 0.200 % 0.0-0.9 [facility] Comment on above: IG% - Immature Granu locytes (promyelocytes, myelocytes and metamyelocytes) > 1% indicates that a LEFT SHIFT is Present. MCH (RBC) [Entitic mass] 32.3 pg 27.0-32.0 [facility] Nucleated RBC/100 WBC (Bld) [Ratio] 0 % 0-5 [facility] MCHC Auto (RBC) [Mass/Vol]Or dered By: Lynn Conti on 07-24-2023 MCHC (RBC) [Mass/Vol] 32.3 g/dL 32-36 [facility] No Panel InformationOrdered By: Lynn Conti on 07-24-2023 Estimated Creatinine Clearance Calc 53.48 ml/min [facility] Estimated GFR (MDRD) Amer 79 mL/min >60 [facility] Comment on above: GFR Calc Estimated GFR (MDRD) Non-Af Amer 65 mL/min >60 [facility] Comment on above: Non- GFR Calc Troponin I High Sensitivity 5 pg/mL 3.0-54.0 [facility] Comment on above: Please Note: New Lary t Units and Gender Specific Reference Ranges. For more information see Policy Stat Procedure [place] High Sensitivity Troponin (TNIH) and attachments. Platelets bldOrdered By: Lucina Conti on 07-24-2023 Platelets (Bld) [#/Vol] 173 10*3/uL 150-450 [facility] Serum or plasma calcium juli urement (mass/volume)Ordered By: Lynn Conti on 07-24-2023 Calcium [Mass/Vol] 9.3 mg/dL 8.5-10.1 [facility] Serum or plasma creatinine m easurement (mass/volume)Ordered By: Lynn Conti on 07-24-2023 Creatinine [Mass/Vol] 0.94 mg/dL 0.55-1.02 [facility] Comment on above: The validity of the calculated GFR & GFRAA in patients over 70 years has not been determined. Clinical correlation is essential. Serum or plasma urea nitroge n measurement (mass/volume)Ordered By: Lynn Conti on 07-24-2023 Urea nitrogen [Mass/Vol] 11 mg/dL 7-18 [facility] Thin prep Papanicolaou smear with manual screeningOrdered By: Lynn Conti on 07-24-2023 Thin prep Papanicolaou smear with manual screening 5 5-15 [facility] Absolute lymphocyte countOrd ered By: Myra Reese on 02-16-2023 Lymphocytes Auto (Unsp spec) [#/Vol] 1.80 10*3/uL 0.83-4.51 [facility] Basophil percentageOrdered B y: Myra Reese on 02-16-2023 Ammonia (P) [Moles/Vol] 16.0 umol/L 11-32 [facility] Basophils/100 WBC (Bld) 1.0 % 0-1 [facility] Bilirubin [Mass/Vol] 0.40 mg/dL 0.20-1.00 [facility] Comment on above: For patients on eltr ombopag therapy, use of Dimension [place] TBIL is not recommended. Chloride [Moles/Vol] 104 mmol/L 98-107 [facility] Eosinophils/100 WBC (Bld) 3.9 % 0-5 [facility] Glucose [Mass/Vol] 91 mg/dL 74-106 [facility] Neutrophils (Bld) [#/Vol] 4.9 10*3/uL 2.0-7.7 [facility] Neutrophils/100 WBC (Bld) 64.0 % 47-70 [facility] Potassium [Moles/Vol] 4.4 mmol/L 3.5-5.1 [facility] Protein [Mass/Vol] 7.1 g/dL 6.4-8.2 [facility] Sodium [Moles/Vol] 137 mmol/L 136-145 [facility] WBC (Bld) [#/Vol] 7.6 10*3/uL 4.4-11.0 [facility] Blood erythrocytes count (nu mber/volume)Ordered By: Myra Reese on 02-16-2023 RBC (Bld) [#/Vol] 4.71 10*6/uL 4.2-5.4 [facility] Blood hemoglobin measurement (mass/volume)Ordered By: Myra Reese on 02-16-2023 Hemoglobin (Bld) [Mass/Vol] 14.7 g/dL 12.0-15.0 [facility] Blood lymphocytes/100 leukoc ytesOrdered By: Myra Reese on 02-16-2023 Lymphocytes/100 WBC (Bld) 23.6 % 19-41 [facility] Blood monocytes/100 leukocyt esOrdered By: Myra Reese on 02-16-2023 Monocytes/100 WBC (Bld) 7.2 % 0-10 [facility] Blood platelet mean volumeOr dered By: Myra Reese on 02-16-2023 Platelet mean volume (Bld) [Entitic vol] 9.5 fL 6.2-12.0 [facility] Determination of erythrocyte mean corpuscular volume (MCV)Ordered By: Myra Reese on 02-16-2023 MCV (RBC) [Entitic vol] 93.6 fL 81-99 [facility] Hematocrit Auto (Bld) [Volum e fraction]Ordered By: Myra Reese on 02-16-2023 Hematocrit (Bld) [Volume fraction] 44.1 % 37-47 [facility] - Chemistry and C hemistry - challengeOrdered By: Myra Reese on 02-16-2023 ALP [Catalytic activity/Vol] 87 U/L 45-117 [facility] ALT [Catalytic activity/Vol] 12 U/L 13-56 [facility] CO2 [Moles/Vol] 27.0 mmol/L 21.0-32.0 [facility] Globulin (S) [Mass/Vol] 3.4 g/dL 2.2-4.2 [facility] Urea nitrogen/Creatinine [Mass ratio] 11.0 mg/mg 10-20 [facility] - Hematology and Cell countsOrdered By: Myra Reese on 02-16-2023 Erythrocyte distribution width (RBC) [Entitic vol] 44.9 fL 35.1-43.9 [facility] Erythrocyte distribution width (RBC) [Ratio] 13.1 % 11.6-14.6 [facility] Immature granulocytes/100 WBC (Bld) 0.300 % 0.0-0.9 [facility] Comment on above: IG% - Immature Granu locytes (promyelocytes, myelocytes and metamyelocytes) > 1% indicates that a LEFT SHIFT is Present. MCH (RBC) [Entitic mass] 31.2 pg 27.0-32.0 [facility] Nucleated RBC/100 WBC (Bld) [Ratio] 0 % 0-5 [facility] MCHC Auto (RBC) [Mass/Vol]Or dered By: Myra Reese on 02-16-2023 MCHC (RBC) [Mass/Vol] 33.3 g/dL 32-36 [facility] No Panel InformationOrdered By: Myra Reese on 02-16-2023 Estimated GFR (MDRD) Amer 83 mL/min >60 [facility] Comment on above: GFR Calc Estimated GFR (MDRD) Non-Af Amer 68 mL/min >60 [facility] Comment on above: Non- GFR Calc Valproic Acid (Depakene) Level 27 ug/mL 50-100 [facility] Platelets bldOrdered By: Silvana Reese on 02-16-2023 Platelets (Bld) [#/Vol] 169 10*3/uL 150-450 [facility] Serum or plasma albumin juli urement (mass/volume)Ordered By: Myra Reese on 02-16-2023 Albumin [Mass/Vol] 3.7 g/dL 3.2-5.0 [facility] Serum or plasma albumin/glob ulin mass ratioOrdered By: Myra Reese on 02-16-2023 Albumin/Globulin [Mass ratio] 1.1 {ratio} 0.9-2.4 [facility] Serum or plasma calcium juli urement (mass/volume)Ordered By: Myra Reese on 02-16-2023 Calcium [Mass/Vol] 9.1 mg/dL 8.5-10.1 [facility] Serum or plasma creatinine m easurement (mass/volume)Ordered By: Myra Reese on 02-16-2023 Creatinine [Mass/Vol] 0.91 mg/dL 0.55-1.02 [facility] Comment on above: The validity of the calculated GFR & GFRAA in patients over 70 years has not been determined. Clinical correlation is essential. Serum or plasma oxcarbazepin e measurement (mass/volume)Ordered By: Myra Reese on 02-16-2023 OXcarbazepine [Mass/Vol] 12 ug/mL 10-35 [facility] Comment on above: This test was develo ped and its performance characteristicsdetermined by [employer]. It has not been cleared orapproved by the Food and Drug Administration. Detection Limit = 1Performed at: [facility] [id number] [place], [place] [address] Director: Arlene Roman MD, Phone: [phone] Serum or plasma urea nitroge n measurement (mass/volume)Ordered By: Myra Reese on 02-16-2023 Urea nitrogen [Mass/Vol] 10 mg/dL 7-18 [facility] Thin prep Papanicolaou smear with manual screeningOrdered By: Myra Reese on 02-16-2023 Thin prep Papanicolaou smear with manual screening 14 U/L 15-37 [facility] Thin prep Papanicolaou smear with manual screening 6 5-15 [facility] US BREAST LTD RIGHTon 2022 [facility] No Panel Informationon 11-11 INR International Normalized Ratio 8.0 [facility] - CoagulationOrde red By: Lucio Basurto on 11-03-2022 INR Coag (Bld) [Relative time] 1.8 {INR} [facility] Comment on above: Critical Value > 4.0 Whole blood prothrombin time Ordered By: Lucio Basurto on 11-03-2022 PT Coag (Bld) [Time] 20.4 s 11.7-14.9 [facility] INR in Blood by Coagulation assayOrdered By: Lucio Basurto on 11-01-2022 INR Coag (Bld) [Relative time] 4.1 {INR} [facility] - CoagulationOrde red By: Lucio Basurto on 11-01-2022 PT Coag (PPP) [Time] 39.4 s 11.7-14.9 [facility] Comment on above: RESULTS CALLED TO ARIES LE RN 11/01/22 1105 Lora Miller.REPORT READ BACK BY SAME. Whole blood prothrombin time Ordered By: Lucio Basurto on 11-01-2022 PT Coag (Bld) [Time] 49.2 s 11.7-14.9 [facility] Laboratory - CoagulationOrde red By: Lucio Basurto on 10-18-2022 INR Coag (Bld) [Relative time] 2.8 {INR} [facility] Comment on above: Critical Value > 4.0 Whole blood prothrombin time Ordered By: Lucio Basurto on 10-18-2022 PT Coag (Bld) [Time] 31.9 s 11.7-14.9 [facility] Basic Metabolic Panel Reflex Mgon 06-16-2022 Anion gap [Moles/Vol] 10 mmol/L Normal 7-16 [facility] Calcium [Mass/Vol] 9.2 mg/dL Normal 8.6-10.2 [facility] Chloride [Moles/Vol] 104 mmol/L Normal 98-107 [facility] CO2 [Moles/Vol] 21 mmol/L Low 22-29 [facility] Creatinine [Mass/Vol] 0.9 mg/dL Normal 0.5-1.0 [facility] GFR Calculated >60 Normal >=60 [facility] Comment on above: Result Comment: Armaan atric calculator link https://www.kidney.org/professionals/kdoqi/gfr_calculatorped Effective May 09, 2022 These results are not intended for use in patients <18 years of age. eGFR results are calculated without a race factor using the 2020 CKD-EPI equation. Careful clinical correlation is recommended, particularly when comparing to results calculated using previous equations. The CKD-EPI equation is less accurate in patients with extremes of muscle mass, extra-renal metabolism of creatinine, excessive creatinine ingestion, or following therapy that affects renal tubular secretion. Glucose [Mass/Vol] 85 mg/dL Normal 74-99 [facility] Magnesium [Moles/Vol] 4.2 mmol/L Normal 3.5-5.0 [facility] Sodium [Moles/Vol] 135 mmol/L Normal 132-146 [facility] Urea nitrogen [Mass/Vol] 13 mg/dL Normal 6-20 [facility] CBC With Platelet and Differ entialon 06-16-2022 Abs Imm Granulocytes 0.03 E9/L Normal [facility] Absolute Basophils 0.05 E9/L Normal 0.00-0.20 [facility] Absolute Eosinophils 0.19 E9/L Normal 0.05-0.50 [facility] Absolute Lymphocytes 1.58 E9/L Normal 1.50-4.00 [facility] Absolute Monocytes 0.52 E9/L Normal 0.10-0.95 [facility] Absolute Neutrophils 3.96 E9/L Normal 1.80-7.30 [facility] Basophils/100 WBC (Bld) 0.8 % Normal 0.0-2.0 [facility] Eosinophils/100 WBC (Bld) 3.0 % Normal 0.0-6.0 [facility] Hematocrit (Bld) [Volume fraction] 37.5 % Normal 34.0-48.0 [facility] Hemoglobin (Bld) [Mass/Vol] 11.7 g/dL Normal 11.5-15.5 [facility] Imm Granulocytes 0.5 % Normal 0.0-5.0 [facility] Lymphocytes/100 WBC (Bld) 25.0 % Normal 20.0-42.0 [facility] MCH (RBC) [Entitic mass] 24.9 pg Low 26.0-35.0 [facility] MCHC 31.2 % Low 32.0-34.5 [facility] MCV (RBC) [Entitic vol] 79.8 fL Low 80.0-99.9 [facility] Monocytes/100 WBC (Bld) 8.2 % Normal 2.0-12.0 [facility] Neutrophils/100 WBC (Bld) 62.5 % Normal 43.0-80.0 [facility] Platelet Count 240 E9/L Normal 130-450 [facility] Platelet mean volume (Bld) [Entitic vol] 10.6 fL Normal 7.0-12.0 [facility] RBC 4.70 E12/L Normal 3.50-5.50 [facility] RDW 18.5 fL High 11.5-15.0 [facility] WBC 6.3 E9/L Normal 4.5-11.5 [facility] Prothrombin Timeon INR Coag (PPP) [Relative time] 1.8 {INR} Normal [facility] PT Coag (PPP) [Time] 19.5 s High 9.3-12.4 [facility] Basic Metabolic Panel Reflex Mgon 06-15-2022 Anion gap [Moles/Vol] 12 mmol/L Normal 7-16 [facility] Comment on above: Order Comment: Mariaa jason has been rescheduled by [facility] at 06/15/2022 07:40 Reason: Done Calcium [Mass/Vol] 9.4 mg/dL Normal 8.6-10.2 [facility] Comment on above: Order Comment: Mariaa jason [facility] been [facility] at 06/15/2022 07:40 Reason: Done Chloride [Moles/Vol] 103 mmol/L Normal 98-107 [facility] Comment on above: Order Comment: Mariaa jason has been [facility] at 06/15/2022 07:40 Reason: Done CO2 [Moles/Vol] 22 mmol/L Normal 22-29 [facility] Comment on above: Order Comment: Mariaa jason has been rescheduled by [facility] at 06/15/2022 07:40 Reason: Done Creatinine [Mass/Vol] 0.9 mg/dL Normal 0.5-1.0 [facility] Comment on above: Order Comment: Mariaa jason has been rescheduled by [facility] at 06/15/2022 07:40 Reason: Done GFR Calculated >60 Normal >=60 [facility] Comment on above: Order Comment: Mariaa jason has been rescheduled by [facility] at 06/15/2022 07:40 Reason: Done Result Comment: Armaan atric calculator link https://www.kidney.org/professionals/kdoqi/gfr_calculatorped Effective May 09, 2022 These results are not intended for use in patients <18 years of age. eGFR results are calculated without a race factor using the 2020 CKD-EPI equation. Careful clinical correlation is recommended, particularly when comparing to results calculated using previous equations. The CKD-EPI equation is less accurate in patients with extremes of muscle mass, extra-renal metabolism of creatinine, excessive creatinine ingestion, or following therapy that affects renal tubular secretion. Glucose [Mass/Vol] 83 mg/dL Normal 74-99 [facility] Comment on above: Order Comment: Mariaa jason has been rescheduled by [facility] at 06/15/2022 07:40 Reason: Done Magnesium [Moles/Vol] 4.0 mmol/L Normal 3.5-5.0 [facility] Comment on above: Order Comment: Mariaa jason has been [facility] at 06/15/2022 07:40 Reason: Done Sodium [Moles/Vol] 137 mmol/L Normal 132-146 [facility] Comment on above: Order Comment: Mariaa jason has been [facility]ched[facility] by [facility] at 06/15/2022 07:40 Reason: Done Urea nitrogen [Mass/Vol] 14 mg/dL Normal 6-20 [facility] Comment on above: Order Comment: Mariaa jason has been [facility]ched[facility] by [facility] at 06/15/2022 07:40 Reason: Done CBC With Platelet and Differ entialon 06-15-2022 Abs Imm Granulocytes 0.01 E9/L Normal [facility] Comment on above: Order Comment: Mariaa jason has been rescheduled by [facility] at 06/15/2022 07:40 Reason:Done Absolute Basophils 0.06 E9/L Normal 0.00-0.20 [facility] Comment on above: Order Comment: Mariaa jason has been rescheduled by [facility] at 06/15/2022 07:40 Reason:Done Absolute Eosinophils 0.25 E9/L Normal 0.05-0.50 [facility] Comment on above: Order Comment: Mariaa jason has been rescheduled by [facility] at 06/15/2022 07:40 Reason:Done Absolute Lymphocytes 1.73 E9/L Normal 1.50-4.00 [facility] Comment on above: Order Comment: Mariaa jason has been rescheduled by [facility] at 06/15/2022 07:40 Reason:Done Absolute Monocytes 0.45 E9/L Normal 0.10-0.95 [facility] Comment on above: Order Comment: Mariaa jason has been rescheduled by [facility] at 06/15/2022 07:40 Reason:Done Absolute Neutrophils 3.14 E9/L Normal 1.80-7.30 [facility] Comment on above: Order Comment: Mariaa jason has been rescheduled by [facility] at 06/15/2022 07:40 Reason:Done Basophils/100 WBC (Bld) 1.1 % Normal 0.0-2.0 [facility] Comment on above: Order Comment: Mariaa jason has been rescheduled by [facility] at 06/15/2022 07:40 Reason:Done Eosinophils/100 WBC (Bld) 4.4 % Normal 0.0-6.0 [facility] Comment on above: Order Comment: Mariaa jason has been rescheduled by [facility] at 06/15/2022 07:40 Reason:Done Hematocrit (Bld) [Volume fraction] 37.9 % Normal 34.0-48.0 [facility] Comment on above: Order Comment: Mariaa jason has been rescheduled by [facility] at 06/15/2022 07:40 Reason:Done Hemoglobin (Bld) [Mass/Vol] 12.0 g/dL Normal 11.5-15.5 [facility] Comment on above: Order Comment: Mariaa jason has been rescheduled by [facility] at 06/15/2022 07:40 Reason:Done Imm Granulocytes 0.2 % Normal 0.0-5.0 [facility] Comment on above: Order Comment: Mariaa jason has been rescheduled by [facility] at 06/15/2022 07:40 Reason:Done Lymphocytes/100 WBC (Bld) 30.7 % Normal 20.0-42.0 [facility] Comment on above: Order Comment: Mariaa jason has been rescheduled by [facility] at 06/15/2022 07:40 Reason:Done MCH (RBC) [Entitic mass] 25.2 pg Low 26.0-35.0 [facility] Comment on above: Order Comment: Mariaa jason has been rescheduled by [facility] at 06/15/2022 07:40 Reason:Done MCHC 31.7 % Low 32.0-34.5 [facility] Comment on above: Order Comment: Mariaa jason has been rescheduled by [facility] at 06/15/2022 07:40 Reason:Done MCV (RBC) [Entitic vol] 79.6 fL Low 80.0-99.9 [facility] Comment on above: Order Comment: Colle ction has been rescheduled by [facility] at 06/15/2022 07:40 Reason:Done Monocytes/100 WBC (Bld) 8.0 % Normal 2.0-12.0 [facility] Comment on above: Order Comment: Mariaa ction has been rescheduled by [facility] at 06/15/2022 07:40 Reason:Done Neutrophils/100 WBC (Bld) 55.6 % Normal 43.0-80.0 [facility] Comment on above: Order Comment: Mariaa ction has been rescheduled by [facility] at 06/15/2022 07:40 Reason:Done Platelet Count 248 E9/L Normal 130-450 [facility] Comment on above: Order Comment: Mariaa ction has been rescheduled by [facility] at 06/15/2022 07:40 Reason:Done Platelet mean volume (Bld) [Entitic vol] 10.7 fL Normal 7.0-12.0 [facility] Comment on above: Order Comment: Mariaa ction has been rescheduled by [facility] at 06/15/2022 07:40 Reason:Done RBC 4.76 E12/L Normal 3.50-5.50 [facility] Comment on above: Order Comment: Mariaa ction has been rescheduled by [facility] at 06/15/2022 07:40 Reason:Done RDW 18.6 fL High 11.5-15.0 [facility] Comment on above: Order Comment: Mariaa ction has been rescheduled by [facility] at 06/15/2022 07:40 Reason:Done WBC 5.6 E9/L Normal 4.5-11.5 [facility] Comment on above: Order Comment: Mariaa ction has been rescheduled by [facility] at 06/15/2022 07:40 Reason:Done CT HEAD WO CONTRASTon 2021 CT HEAD WO CONTRAST EXAMINATION: CT OF THE HEAD WITHOUT CONTRAST 06/15/2022 7:29 am TECHNIQUE: CT of the head was performed without the administration of intravenous contrast. Automated exposure control, iterative reconstruction, and/or weight based adjustment of the mA/kV was utilized to reduce the radiation dose to as low as reasonably achievable. COMPARISON: 06/12/2022 HISTORY: ORDERING SYSTEM PROVIDED HISTORY: cva TECHNOLOGIST PROVIDED HISTORY: TOMORROW please, not today Reason for exam:->cva Has a code stroke or stroke alert been called?->No What reading provider will be dictating this exam?->CRC FINDINGS: BRAIN/VENTRICLES: No acute intracranial hemorrhage or shift of midline structures. Areas of encephalomalacia compatible with old infarct in the posterior right frontal lobe, left parietal lobe, right occipital lobe and right cerebellar hemisphere. Post atrophic enlargement of the left lateral ventricle involving the posterior horn. No evidence of large territory acute cortical infarction. 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 Visualized segments of the middle cerebral artery do not appear hyperdense although evaluation is limited. There is also an aneurysm coil in the midline anterior to the osman in the region of the basilar artery/PCOM. ORBITS: The visualized portion of the orbits demonstrate no acute abnormality. SINUSES: The visualized paranasal sinuses and mastoid air cells demonstrate no acute abnormality. SOFT TISSUES/SKULL: No acute abnormality of the visualized skull or soft tissues. IMPRESSION: 1. 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 2. Supratentorial and posterior fossa aneurysm coils 3. No acute intracranial hemorrhage or evidence of large territory cortical infarction. Interpreted by: Contreras Lee MD Signed by: Contreras Lee MD 06/15/22 Final result Normal [facility] Comment on above: Order Comment: NIKOLAI HERNÁNDEZ please, not todayReason for exam:->cvaHas a code stroke or stroke alert been called?->NoWhat reading provider will be dictating this exam?->CRC Prothrombin Timeon 2 INR Coag (PPP) [Relative time] 1.7 {INR} Normal [facility] PT Coag (PPP) [Time] 18.3 s High 9.3-12.4 [facility] Lipid Panelon 06-14-2022 Cholesterol [Mass/Vol] 141 mg/dL Normal 0-199 [facility] Cholesterol in HDL [Mass/Vol] 50 mg/dL Normal >40 [facility] Cholesterol in LDL [Mass/Vol] 70 mg/dL Normal 0-99 [facility] Triglyceride [Mass/Vol] 105 mg/dL Normal 0-149 [facility] VLDL Cholesterol (Calculated) 21 mg/dL Normal [facility] Prothrombin Timeon 2 INR Coag (PPP) [Relative time] 1.4 {INR} Normal [facility] PT Coag (PPP) [Time] 14.9 s High 9.3-12.4 [facility] TSH w/out Reflexon 2 TSH w/out Reflex 0.326 uIU/mL Normal 0.270-4.200 [facility] Basic Metabolic Panelon 11 Anion gap [Moles/Vol] 10 mmol/L Normal 7-16 [facility] Calcium [Mass/Vol] 10.0 mg/dL Normal 8.6-10.2 [facility] Chloride [Moles/Vol] 105 mmol/L Normal 98-107 [facility] CO2 [Moles/Vol] 24 mmol/L Normal 22-29 [facility] Creatinine [Mass/Vol] 0.9 mg/dL Normal 0.5-1.0 [facility] GFR Calculated >60 Normal >=60 [facility] Comment on above: Result Comment: Armaan atric calculator link https://www.kidney.org/professionals/kdoqi/gfr_calculatorped Effective May 09, 2022 These results are not intended for use in patients <18 years of age. eGFR results are calculated without a race factor using the 2020 CKD-EPI equation. Careful clinical correlation is recommended, particularly when comparing to results calculated using previous equations. The CKD-EPI equation is less accurate in patients with extremes of muscle mass, extra-renal metabolism of creatinine, excessive creatinine ingestion, or following therapy that affects renal tubular secretion. Glucose [Mass/Vol] 104 mg/dL High 74-99 [facility] Potassium [Moles/Vol] 4.2 mmol/L Normal 3.5-5.0 [facility] Sodium [Moles/Vol] 139 mmol/L Normal 132-146 [facility] Urea nitrogen [Mass/Vol] 16 mg/dL Normal 6-20 [facility] CBC With Platelet No Differe ntialon 06-13-2022 Hematocrit (Bld) [Volume fraction] 40.7 % Normal 34.0-48.0 [facility] Hemoglobin (Bld) [Mass/Vol] 12.9 g/dL Normal 11.5-15.5 [facility] MCH (RBC) [Entitic mass] 25.5 pg Low 26.0-35.0 [facility] MCHC 31.7 % Low 32.0-34.5 [facility] MCV (RBC) [Entitic vol] 80.6 fL Normal 80.0-99.9 [facility] Platelet Count 279 E9/L Normal 130-450 [facility] Platelet mean volume (Bld) [Entitic vol] 10.5 fL Normal 7.0-12.0 [facility] RBC 5.05 E12/L Normal 3.50-5.50 [facility] RDW 19.9 fL High 11.5-15.0 [facility] WBC 6.5 E9/L Normal 4.5-11.5 [facility] CBC With Platelet and Differ entialon 06-13-2022 Abs Imm Granulocytes 0.02 E9/L Normal [facility] Absolute Basophils 0.07 E9/L Normal 0.00-0.20 [facility] Absolute Eosinophils 0.17 E9/L Normal 0.05-0.50 [facility] Absolute Lymphocytes 1.79 E9/L Normal 1.50-4.00 [facility] Absolute Monocytes 0.66 E9/L Normal 0.10-0.95 [facility] Absolute Neutrophils 4.66 E9/L Normal 1.80-7.30 [facility] Basophils/100 WBC (Bld) 0.9 % Normal 0.0-2.0 [facility] Eosinophils/100 WBC (Bld) 2.3 % Normal 0.0-6.0 [facility] Hematocrit (Bld) [Volume fraction] 38.8 % Normal 34.0-48.0 [facility] Hemoglobin (Bld) [Mass/Vol] 12.5 g/dL Normal 11.5-15.5 [facility] Imm Granulocytes 0.3 % Normal 0.0-5.0 [facility] Lymphocytes/100 WBC (Bld) 24.3 % Normal 20.0-42.0 [facility] MCH (RBC) [Entitic mass] 25.6 pg Low 26.0-35.0 [facility] MCHC 32.2 % Normal 32.0-34.5 [facility] MCV (RBC) [Entitic vol] 79.5 fL Low 80.0-99.9 [facility] Monocytes/100 WBC (Bld) 9.0 % Normal 2.0-12.0 [facility] Neutrophils/100 WBC (Bld) 63.2 % Normal 43.0-80.0 [facility] Platelet Count 264 E9/L Normal 130-450 [facility] Platelet mean volume (Bld) [Entitic vol] 9.8 fL Normal 7.0-12.0 [facility] RBC 4.88 E12/L Normal 3.50-5.50 [facility] RDW 18.8 fL High 11.5-15.0 [facility] WBC 7.4 E9/L Normal 4.5-11.5 [facility] [address] BRAIN PERFUSIONon 022 CT BRAIN PERFUSION Patient 7 : 1965 Age: 56 years Gender: Female Order Date: 06/12/2022 11:38 PM Exam: CT BRAIN PERFUSION Number of Images: 331 views Indication: stroke stroke Comparison: None. Findings: Perfusion images demonstrate symmetric blood volume Blood flow images demonstrate symmetric blood flow There is no significant ischemic penumbra identified. There is no significant core infarct identified. IMPRESSION: No significant ischemic penumbra identified This study was analyzed by the Bailey[employer]ai algorithm. Interpreted by: Nitish Kraus II, MD Signed by: Nitish Kraus II, MD 06/12/22 Final result Normal [facility] Comment on above: Order Comment: Reaso n for exam:->stroke Has a code stroke or stroke alert been called?->Yes Decision Support Exception - unselect if not a suspected or confirmed emergency medical condition->Emergency Medical Condition (MA) What reading provider will be dictating this exam?->[facility] CT HEAD WO CONTRASTon 2021 CT HEAD WO CONTRAST Patient 7 : 1965 Age: 56 years Gender: Female Order Date: 06/12/2022 11:38 PM EXAM: CT HEAD WO CONTRAST NUMBER OF IMAGES: [id number] INDICATION: stroke stroke COMPARISON: None Technique: Low-dose CT acquisition technique included one of following options; 1 . Automated exposure control, 2. Adjustment of MA and or KV according to patient's size or 3. Use of iterative reconstruction. Multiple CT sections were obtained with sagittal and coronal MPR reconstructions. The ventricles are prominent. The gyri and sulci appear prominent. The white matter appears prominent. There is no evidence for hemorrhage. There is no infarct identified. There is no mass effect identified. There is no mass identified. There are multiple regions of bilateral encephalomalacia compatible multiple remote infarcts IMPRESSION: Diffuse atrophy likely age related Findings compatible with small vessel ischemic changes. Interpreted by: Nitish Kraus II, MD Signed by: Nitish Kraus II, MD 06/12/22 Final result Normal [facility] Comment on above: Order Comment: Reaso n for exam:->strokeHas a code stroke or stroke alert been called?->YesDecision Support Exception - unselect if not a suspected or confirmed emergency medical condition->Emergency Medical Condition (MA)What reading provider will be dictating this exam?->[facility] CTA HEAD W CONTRASTon 2021 CTA HEAD W CONTRAST Patient 7 : 1965 Age: 56 years Gender: Female Order Date: 06/12/2022 11:38 PM EXAM: CTA NECK W CONTRAST, CTA HEAD W CONTRAST NUMBER OF IMAGES: [id number] INDICATION: stroke stroke COMPARISON: None Technique: Low-dose CT acquisition technique included one of following options; 1 . Automated exposure control, 2. Adjustment of MA and or KV according to patient's size or 3. Use of iterative reconstruction. Contiguous spiral images were obtained in the axial plane, following the administration of intravenous contrast using CT angiographic protocol. Sagittal and coronal images were reconstructed from the axial plane acquisition. Additional MIP reconstructions were presented to aid in the interpretation of this study. Images were obtained from the skull base cranially. There is mild calcified plaque identified in the vessels compatible with atherosclerotic disease. The right carotid is unremarkable. The left carotid is unremarkable. 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 There is bilateral encephalomalacia. IMPRESSION: 1. Estimated stenosis of the proximal right and left internal carotid artery by NASCET criteria is not hemodynamically significant 2. Mild atherosclerotic disease . 3. No large vessel occlusion identified The findings were called to Dr. Dwyer This study was analyzed by the [facility]ai algorithm. Interpreted by: Nitish Kraus II, MD Signed by: Nitish Kraus II, MD 06/12/22 Final result Normal [facility] Comment on above: Order Comment: Reaso n for exam:->strokeHas a code stroke or stroke alert been called?->YesDecision Support Exception - unselect if not a suspected or confirmed emergency medical condition->Emergency Medical Condition (MA)What reading provider will be dictating this exam?->[facility] CTA NECK W CONTRASTon 2021 CTA NECK W CONTRAST Patient 7 : 1965 Age: 56 years Gender: Female Order Date: 06/12/2022 11:38 PM EXAM: CTA NECK W CONTRAST, CTA HEAD W CONTRAST NUMBER OF IMAGES: [id number] INDICATION: stroke stroke COMPARISON: None Technique: Low-dose CT acquisition technique included one of following options; 1 . Automated exposure control, 2. Adjustment of MA and or KV according to patient's size or 3. Use of iterative reconstruction. Contiguous spiral images were obtained in the axial plane, following the administration of intravenous contrast using CT angiographic protocol. Sagittal and coronal images were reconstructed from the axial plane acquisition. Additional MIP reconstructions were presented to aid in the interpretation of this study. Images were obtained from the skull base cranially. There is mild calcified plaque identified in the vessels compatible with atherosclerotic disease. The right carotid is unremarkable. The left carotid is unremarkable. 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 There is bilateral encephalomalacia. IMPRESSION: 1. Estimated stenosis of the proximal right and left internal carotid artery by NASCET criteria is not hemodynamically significant 2. Mild atherosclerotic disease . 3. No large vessel occlusion identified The findings were called to Dr. Dwyer This study was analyzed by the [employer] algorithm. Interpreted by: Nitish Kraus II, MD Signed by: Nitish Kraus II, MD 06/12/22 Final result Normal [facility] Comment on above: Order Comment: Reaso n for exam:->stroke Has a code stroke or stroke alert been called?->Yes Decision Support Exception - unselect if not a suspected or confirmed emergency medical condition->Emergency Medical Condition (MA) What reading provider will be dictating this exam?->[facility] Hgb A1Con 06-13-2022 HbA1c (Bld) [Mass fraction] 5.3 % Normal 4.0-5.6 [facility] High Sensitivity Troponin To n 06-13-2022 High Sensitivity Troponin T 17 ng/L High 0-9 [facility] Comment on above: Result Comment: High Sensitivity Troponin values cannot be compared with other Troponin methodologies. Patients with high levels of Biotin oral intake (i.e. >5 mg/day) may have falsely decreased Troponin levels. Samples collected within 8 hours of biotin intake may require additional information for diagnosis. Homocysteineon 06-13-2022 Homocysteine 12.7 umol/L Normal 0.0-15.0 [facility] METER GLUCOSEon 06-13-2022 Glucose [Mass/Vol] 98 mg/dL Normal 74-99 [facility] Prothrombin Timeon INR Coag (PPP) [Relative time] 1.3 {INR} Normal [facility] PT Coag (PPP) [Time] 14.6 s High 9.3-12.4 [facility] Rejection Notificationon Reason see below Normal [facility] Comment on above: Result Comment: Unab le to perform testing; specimen grossly hemolyzed. To perform testing the specimen will need to be recollected. Hemolyz Rejected Test CMPX Normal [facility] T3 Freeon 11-07-2022 Free T3 [Mass/Vol] 2.5 pg/mL Normal 2.0-4.4 [facility] Thyroxine Freeon 06-13-2022 Thyroxine Free 1.09 ng/dL Normal 0.93-1.70 [facility] Absolute lymphocyte counton 06-10-2022 Lymphocytes Auto (Unsp spec) [#/Vol] 1.89 10*3/uL 0.83-4.51 [facility] Work Phone: Basophil percentageon 2021 Basophils/100 WBC (Bld) 0.8 % 0-1 [facility] Work Phone: Bilirubin [Mass/Vol] 0.30 mg/dL 0.20-1.00 [facility] Work Phone: Comment on above: For patients on eltr ombopag therapy, use of Dimension [place] TBIL is not recommended. Chloride [Moles/Vol] 108 mmol/L 98-107 [facility] Work Phone: Eosinophils/100 WBC (Bld) 3.3 % 0-5 [facility] Work Phone: Glucose [Mass/Vol] 89 mg/dL 74-106 [facility] Work Phone: Neutrophils (Bld) [#/Vol] 3.6 10*3/uL 2.0-7.7 [facility] Work Phone: Neutrophils/100 WBC (Bld) 56.3 % 47-70 [facility] Work Phone: Potassium [Moles/Vol] 4.0 mmol/L 3.5-5.1 [facility] Work Phone: Protein [Mass/Vol] 7.0 g/dL 6.4-8.2 [facility] Work Phone: Sodium [Moles/Vol] 141 mmol/L 136-145 [facility] Work Phone: WBC (Bld) [#/Vol] 6.3 10*3/uL 4.4-11.0 [facility] Work Phone: Beta hCG serum qualon 2021 Beta HCG ( test) Ql Negative [facility] Work Phone: Blood erythrocytes count (nu mber/volume)on 06-10-2022 RBC (Bld) [#/Vol] 4.51 10*6/uL 4.2-5.4 [facility] Work Phone: Blood hemoglobin measurement (mass/volume)on 06-10-2022 Hemoglobin (Bld) [Mass/Vol] 11.2 g/dL 12.0-15.0 [facility] Work Phone: Blood lymphocytes/100 leukoc yteson 06-10-2022 Lymphocytes/100 WBC (Bld) 29.9 % 19-41 [facility] Work Phone: Blood monocytes/100 leukocyt eson 06-10-2022 Monocytes/100 WBC (Bld) 9.5 % 0-10 [facility] Work Phone: Blood platelet mean volumeon 06-10-2022 Platelet mean volume (Bld) [Entitic vol] 10.0 fL 6.2-12.0 [facility] Work Phone: Determination of erythrocyte mean corpuscular volume (MCV)on 06-10-2022 MCV (RBC) [Entitic vol] 80.0 fL 81-99 [facility] Work Phone: Hematocrit Auto (Bld) [Volum e fraction]on 06-10-2022 Hematocrit (Bld) [Volume fraction] 36.1 % 37-47 [facility] Work Phone: INR in Blood by Coagulation assayon 06-10-2022 INR Coag (Bld) [Relative time] 1.1 {INR} [facility] Work Phone: Laboratory - Chemistry and C hemistry - challengeon 06-10-2022 ALP [Catalytic activity/Vol] 85 U/L 45-117 [facility] Work Phone: ALT [Catalytic activity/Vol] 21 U/L 13-56 [facility] Work Phone: CO2 [Moles/Vol] 24.0 mmol/L 21.0-32.0 [facility] Work Phone: Globulin (S) [Mass/Vol] 3.4 g/dL 2.2-4.2 [facility] Work Phone: Urea nitrogen/Creatinine [Mass ratio] 10.0 mg/mg 10-20 [facility] Work Phone: Laboratory - Coagulationon 1 08-10-2021 PT Coag (PPP) [Time] 14.1 s 11.7-14.9 [facility] Work Phone: Laboratory - Drug toxicology on 06-10-2022 Amphetamines Ql (U) Negative <1000 ng/mL [facility] Work Phone: Benzodiazepines Ql (U) Negative < 200 ng/mL [facility] Work Phone: Cannabinoids Screen Ql (U) Negative < 50 ng/mL [facility] Work Phone: Cocaine Ql (U) Negative < 300 ng/mL [facility] Work Phone: Opiates Ql (U) Negative < 300 ng/mL [facility] Work Phone: Laboratory - Hematology and Cell countson 06-10-2022 Erythrocyte distribution width (RBC) [Entitic vol] 53.4 fL 35.1-43.9 [facility] Work Phone: Erythrocyte distribution width (RBC) [Ratio] 18.7 % 11.6-14.6 [facility] Work Phone: Immature granulocytes/100 WBC (Bld) 0.200 % 0.0-0.9 [facility] Work Phone: Comment on above: IG% - Immature Granu locytes (promyelocytes, myelocytes and metamyelocytes) > 1% indicates that a LEFT SHIFT is Present. MCH (RBC) [Entitic mass] 24.8 pg 27.0-32.0 [facility] Work Phone: Nucleated RBC/100 WBC (Bld) [Ratio] 0 % 0-5 [facility] Work Phone: MCHC Auto (RBC) [Mass/Vol]on 06-10-2022 MCHC (RBC) [Mass/Vol] 31.0 g/dL 32-36 [facility] Work Phone: No Panel Informationon 06-10 MDMA (Ecstasy) Screen Negative < 500 ng/mL [facility] Work Phone: Urine Barbiturates Screen Negative < 200 ng/mL [facility] Work Phone: Urine Drug Screen Comment [facility] Work Phone: Comment on above: CONFIRMATORY TESTING FOR ALL POSITIVE URINE DRUG SCREENRESULTS WILL ONLY BE SENT OUT UPON PHYSICIAN ORDER. VISTA Urine Drug Screen methods provide only preliminaryanalytical test results. A more specific alternate chemicalmethod must be used in order to obtain a confirmedanalytical result. Gas chromatography/mass spectrometery(GC/MS) is the preferred confirmatory method. Clinicalconsideration and professional judgement should be appliedto any drug of abuse test result, particularly whenpreliminary positive results are used. URINE TCA TESTING MUST BE ORDERED SEPARATELY. USE TESTMNEMONIC: [facility] Urine Methadone Screen Negative < 300 ng/mL [facility] Work Phone: Estimated Creatinine Clearance Calc 59.11 ml/min [facility] Work Phone: Estimated GFR (MDRD) Amer 84 mL/min >60 [facility] Work Phone: Comment on above: GFR Calc Estimated GFR (MDRD) Non-Af Amer 69 mL/min >60 [facility] Work Phone: Comment on above: Non- GFR Calc Ethyl Alcohol Level 6.0 mg/dL [facility] Work Phone: Comment on above: The serum:whole bloo d ethanol ratio is approximately 1.14and varies slightly with hematocrit. Medical Alcohol reference interval and critical value innon-tolerant individuals; 50 - 100 Impairment 100 Intoxication 100 - 250 Severe Poisoning 250 - 400 Deep/possible fatal coma Platelets bldon 06-10-2022 Platelets (Bld) [#/Vol] 244 10*3/uL 150-450 [facility] Work Phone: Serum or plasma albumin juli urement (mass/volume)on 06-10-2022 Albumin [Mass/Vol] 3.6 g/dL 3.2-5.0 [facility] Work Phone: Serum or plasma albumin/glob ulin mass ratioon 06-10-2022 Albumin/Globulin [Mass ratio] 1.1 {ratio} 0.9-2.4 [facility] Work Phone: Serum or plasma calcium juli urement (mass/volume)on 06-10-2022 Calcium [Mass/Vol] 9.5 mg/dL 8.5-10.1 [facility] Work Phone: Serum or plasma creatinine m easurement (mass/volume)on 06-10-2022 Creatinine [Mass/Vol] 0.90 mg/dL 0.55-1.02 [facility] Work Phone: Comment on above: The validity of the calculated GFR & GFRAA in patients over 70 years has not been determined. Clinical correlation is essential. Serum or plasma urea nitroge n measurement (mass/volume)on 06-10-2022 Urea nitrogen [Mass/Vol] 9 mg/dL 7-18 [facility] Work Phone: Thin prep Papanicolaou smear with manual screeningon 06-10-2022 Thin prep Papanicolaou smear with manual screening 21 U/L 15-37 [facility] Work Phone: Thin prep Papanicolaou smear with manual screening 9 5-15 [facility] Work Phone: Urine phencyclidine (PCP) de tectionon 06-10-2022 Phencyclidine Ql (U) Negative < 25 ng/mL [facility] Work Phone: Absolute lymphocyte counton 06-08-2022 Lymphocytes Auto (Unsp spec) [#/Vol] 1.15 10*3/uL 0.83-4.51 [facility] Work Phone: [phone] Basophil percentageon 2021 Basophils/100 WBC (Bld) 0.6 % 0-1 [facility] Work Phone: Chloride [Moles/Vol] 109 mmol/L 98-107 [facility] Work Phone: [phone] Eosinophils/100 WBC (Bld) 1.3 % 0-5 [facility] Work Phone: Glucose [Mass/Vol] 110 mg/dL 74-106 [facility] Work Phone: Comment on above: Fasting Glucose resu lt from 100 to 125 mg/dL suggests IMPAIRED HOMEOSTASIS per A.D.A. criteria. Neutrophils (Bld) [#/Vol] 4.5 10*3/uL 2.0-7.7 [facility] Work Phone: Neutrophils/100 WBC (Bld) 70.7 % 47-70 [facility] Work Phone: Potassium [Moles/Vol] 4.2 mmol/L 3.5-5.1 [facility] Work Phone: Sodium [Moles/Vol] 139 mmol/L 136-145 [facility] Work Phone: [phone] WBC (Bld) [#/Vol] 6.4 10*3/uL 4.4-11.0 [facility] Work Phone: Beta hCG serum qualon 2021 Beta HCG ( test) Ql Negative [facility] Work Phone: Blood erythrocytes count (nu mber/volume)on 06-08-2022 RBC (Bld) [#/Vol] 4.40 10*6/uL 4.2-5.4 [facility] Work Phone: Blood hemoglobin measurement (mass/volume)on 06-08-2022 Hemoglobin (Bld) [Mass/Vol] 11.0 g/dL 12.0-15.0 [facility] Work Phone: Blood lymphocytes/100 leukoc yteson 06-08-2022 Lymphocytes/100 WBC (Bld) 18.1 % 19-41 [facility] Work Phone: Blood monocytes/100 leukocyt eson 06-08-2022 Monocytes/100 WBC (Bld) 9.0 % 0-10 [facility] Work Phone: Blood platelet mean volumeon 06-08-2022 Platelet mean volume (Bld) [Entitic vol] 10.1 fL 6.2-12.0 [facility] Work Phone: Determination of erythrocyte mean corpuscular volume (MCV)on 06-08-2022 MCV (RBC) [Entitic vol] 78.6 fL 81-99 [facility] Work Phone: Hematocrit Auto (Bld) [Volum e fraction]on 06-08-2022 Hematocrit (Bld) [Volume fraction] 34.6 % 37-47 [facility] Work Phone: INR in Blood by Coagulation assayon 06-08-2022 INR Coag (Bld) [Relative time] 1.2 {INR} [facility] Work Phone: Laboratory - Chemistry and C hemistry - challengeon 06-08-2022 CO2 [Moles/Vol] 25.0 mmol/L 21.0-32.0 [facility] Work Phone: Urea nitrogen/Creatinine [Mass ratio] 12.5 mg/mg 10-20 [facility] Work Phone: Laboratory - Coagulationon 1 08-08-2021 PT Coag (PPP) [Time] 15.0 s 11.7-14.9 [facility] Work Phone: Laboratory - Drug toxicology on 06-08-2022 Amphetamines Ql (U) Negative <1000 ng/mL [facility] Work Phone: Benzodiazepines Ql (U) Negative < 200 ng/mL [facility] Work Phone: Cannabinoids Screen Ql (U) Negative < 50 ng/mL [facility] Work Phone: Cocaine Ql (U) Negative < 300 ng/mL [facility] Work Phone: Opiates Ql (U) Negative < 300 ng/mL [facility] Work Phone: Laboratory - Hematology and Cell countson 06-08-2022 Erythrocyte distribution width (RBC) [Entitic vol] 52.0 fL 35.1-43.9 [facility] Work Phone: Erythrocyte distribution width (RBC) [Ratio] 18.3 % 11.6-14.6 [facility] Work Phone: Immature granulocytes/100 WBC (Bld) 0.300 % 0.0-0.9 [facility] Work Phone: Comment on above: IG% - Immature Granu locytes (promyelocytes, myelocytes and metamyelocytes) > 1% indicates that a LEFT SHIFT is Present. MCH (RBC) [Entitic mass] 25.0 pg 27.0-32.0 [facility] Work Phone: Nucleated RBC/100 WBC (Bld) [Ratio] 0 % 0-5 [facility] Work Phone: MCHC Auto (RBC) [Mass/Vol]on 06-08-2022 MCHC (RBC) [Mass/Vol] 31.8 g/dL 32-36 [facility] Work Phone: No Panel Informationon 06-08 MDMA (Ecstasy) Screen Negative < 500 ng/mL [facility] Work Phone: Urine Barbiturates Screen Negative < 200 ng/mL [facility] Work Phone: Urine Drug Screen Comment [facility] Work Phone: Comment on above: CONFIRMATORY TESTING FOR ALL POSITIVE URINE DRUG SCREENRESULTS WILL ONLY BE SENT OUT UPON PHYSICIAN ORDER. [facility]ISTA Urine Drug Screen methods provide only preliminaryanalytical test results. A more specific alternate chemicalmethod must be used in order to obtain a confirmedanalytical result. Gas chromatography/mass spectrometery(GC/MS) is the preferred confirmatory method. Clinicalconsideration and professional judgement should be appliedto any drug of abuse test result, particularly whenpreliminary positive results are used. URINE TCA TESTING MUST BE ORDERED SEPARATELY. USE TESTMNEMONIC: [facility] Urine Methadone Screen Negative < 300 ng/mL [facility] Work Phone: Estimated Creatinine Clearance Calc 60.46 ml/min [facility] Work Phone: Estimated GFR (MDRD) Amer 86 mL/min >60 [facility] Work Phone: Comment on above: GFR Calc Estimated GFR (MDRD) Non-Af Amer 71 mL/min >60 [facility] Work Phone: Comment on above: Non- GFR Calc Ethyl Alcohol Level < 3.0 mg/dL [facility] Work Phone: Comment on above: The serum:whole bloo d ethanol ratio is approximately 1.14and varies slightly with hematocrit. Medical Alcohol reference interval and critical value innon-tolerant individuals; 50 - 100 Impairment 100 Intoxication 100 - 250 Severe Poisoning 250 - 400 Deep/possible fatal coma Troponin I High Sensitivity 12 pg/mL 3.0-54.0 [facility] Work Phone: Comment on above: Please Note: New Lary t Units and Gender Specific Reference Ranges. For more information see Policy Stat Procedure [place] High Sensitivity Troponin (TNIH) and attachments. Platelets bldon 06-08-2022 Platelets (Bld) [#/Vol] 262 10*3/uL 150-450 [facility] Work Phone: Serum or plasma calcium juli urement (mass/volume)on 06-08-2022 Calcium [Mass/Vol] 9.3 mg/dL 8.5-10.1 [facility] Work Phone: Serum or plasma creatinine m easurement (mass/volume)on 06-08-2022 Creatinine [Mass/Vol] 0.88 mg/dL 0.55-1.02 [facility] Work Phone: Comment on above: The validity of the calculated GFR & GFRAA in patients over 70 years has not been determined. Clinical correlation is essential. Serum or plasma urea nitroge n measurement (mass/volume)on 06-08-2022 Urea nitrogen [Mass/Vol] 11 mg/dL 7-18 [facility] Work Phone: Thin prep Papanicolaou smear with manual screeningon 06-08-2022 Thin prep Papanicolaou smear with manual screening 5 5-15 [facility] Work Phone: Urine phencyclidine (PCP) de tectionon 06-08-2022 Phencyclidine Ql (U) Negative < 25 ng/mL [facility] Work Phone: No Panel Informationon 06-06 INR International Normalized Ratio 2.0 [facility] Work Phone: No Panel Informationon 06-01 INR International Normalized Ratio 4.6 [facility] Work Phone: Absolute lymphocyte counton 02-23-2022 Lymphocytes Auto (Unsp spec) [#/Vol] 1.58 10*3/uL 0.83-4.51 [facility] Work Phone: Basophil percentageon 2021 Basophils/100 WBC (Bld) 0.6 % 0-1 [facility] Work Phone: Chloride [Moles/Vol] 110 mmol/L 98-107 [facility] Work Phone: Eosinophils/100 WBC (Bld) 4.0 % 0-5 [facility] Work Phone: Glucose [Mass/Vol] 98 mg/dL 74-106 [facility] Work Phone: Neutrophils (Bld) [#/Vol] 3.6 10*3/uL 2.0-7.7 [facility] Work Phone: [phone] Neutrophils/100 WBC (Bld) 57.6 % 47-70 [facility] Work Phone: [phone] Potassium [Moles/Vol] 3.8 mmol/L 3.5-5.1 [facility] Work Phone: [phone] Sodium [Moles/Vol] 143 mmol/L 136-145 [facility] Work Phone: [phone] WBC (Bld) [#/Vol] 6.2 10*3/uL 4.4-11.0 [facility] Work Phone: [phone] Blood erythrocytes count (nu mber/volume)on 02-23-2022 RBC (Bld) [#/Vol] 2.49 10*6/uL 4.2-5.4 [facility] Work [facility]: [phone] Blood hemoglobin measurement (mass/volume)on 02-23-2022 Hemoglobin (Bld) [Mass/Vol] 7.7 g/dL 12.0-15.0 [facility] Work Phone: [phone] Blood lymphocytes/100 leukoc yteson 02-23-2022 Lymphocytes/100 WBC (Bld) 25.3 % 19-41 [facility] Work Phone: [phone] Blood manual differential co mment interpretation (narrative result)on 02-23-2022 Manual differential comment Jose M (Bld) [Interp] SCANNED [facility] Work Phone: Blood monocytes/100 leukocyt eson 02-23-2022 Monocytes/100 WBC (Bld) 10.7 % 0-10 [facility] Work Phone: [phone] Blood platelet mean volumeon 02-23-2022 Platelet mean volume (Bld) [Entitic vol] 8.8 fL 6.2-12.0 [facility] Work Phone: [phone] Blood polychromasia detectio n by light microscopyon 02-23-2022 Polychromasia LM Ql (Bld) RARE [facility] Work Phone: Determination of erythrocyte mean corpuscular volume (MCV)on 02-23-2022 MCV (RBC) [Entitic vol] 93.6 fL 81-99 [facility] Work Phone: Hematocrit Auto (Bld) [Volum e fraction]on 02-23-2022 Hematocrit (Bld) [Volume fraction] 23.3 % 37-47 [facility] Work Phone: Hypochromatic red blood cell detectionon 02-23-2022 Hypochromia Ql (Bld) [facility] - Chemistry and C hemistry - challengeon 02-23-2022 CO2 [Moles/Vol] 29.0 mmol/L 21.0-32.0 [facility] Work Phone: Urea nitrogen/Creatinine [Mass ratio] 18.7 mg/mg -20 [facility] Work Phone: Laboratory - Hematology and Cell countson 02-23-2022 Erythrocyte distribution width (RBC) [Entitic vol] 47.9 fL 35.1-43.9 [facility] Work Phone: Erythrocyte distribution width (RBC) [Ratio] 14.3 % 11.6-14.6 [facility] Work Phone: Immature granulocytes/100 WBC (Bld) 1.800 % 0.0-0.9 [facility] Work Phone: Comment on above: IG% - Immature Granu locytes (promyelocytes, myelocytes and metamyelocytes) > 1% indicates that a LEFT SHIFT is Present. MCH (RBC) [Entitic mass] 30.9 pg 27.0-32.0 [facility] Work Phone: Nucleated RBC/100 WBC (Bld) [Ratio] 0.3 % 0-5 [facility] Work Phone: MCHC Auto (RBC) [Mass/Vol]on 02-23-2022 MCHC (RBC) [Mass/Vol] 33.0 g/dL 32-36 [facility] Work Phone: No Panel Informationon 02-23 Atypical Lymphocytes RARE % [facility] Work Phone: Estimated Creatinine Clearance Calc 64.71 ml/min [facility] Work Phone: Estimated GFR (MDRD) Amer 104 mL/min >60 [facility] Work Phone: Comment on above: GFR Calc Estimated GFR (MDRD) Non-Af Amer 86 mL/min >60 [facility] Work Phone: Comment on above: Non- GFR Calc Platelets bldon 02-23-2022 Platelets (Bld) [#/Vol] 304 10*3/uL 150-450 [facility] Work Phone: Serum or plasma calcium juli urement (mass/volume)on 02-23-2022 Calcium [Mass/Vol] 8.4 mg/dL 8.5-10.1 [facility] Work Phone: Serum or plasma creatinine m easurement (mass/volume)on 02-23-2022 Creatinine [Mass/Vol] 0.75 mg/dL 0.55-1.02 [facility] Work Phone: Comment on above: The validity of the calculated GFR & GFRAA in patients over 70 years has not been determined. Clinical correlation is essential. Serum or plasma urea nitroge n measurement (mass/volume)on 02-23-2022 Urea nitrogen [Mass/Vol] 14 mg/dL 7-18 [facility] Work Phone: Thin prep Papanicolaou smear with manual screeningon 02-23-2022 Thin prep Papanicolaou smear with manual screening 4 5-15 [facility] Work Phone: INR in Blood by Coagulation assayon 02-20-2022 INR Coag (Bld) [Relative time] 2.3 {INR} [facility] Work Phone: Laboratory - Coagulationon 0 02-20-2022 PT Coag (PPP) [Time] 24.8 s 11.7-14.9 [facility] Work Phone: Vancomycin troughon 02-19-20 Vancomycin trough [Mass/Vol] 6.0 ug/mL 5.0-15.0 [facility] Work Phone: Comment on above: VANCOMYCIN STANDARED DRUG THERAPY TROUGH LEVEL: 5.0 - 15.0 mg/L VANCOMYCIN HIGH INTENSITY THERAPY TROUGH LEVEL: 15.0 - 20.0 mg/L High Intensity therapy recommended for serious lifethreatening infections include:- [id number] (Ventilator/Healtcare Associated)-Sepsis PLEASE CONTACT PHARMACY SERVICES (#[id number]) FOR INTERPRETATIONOF RESULTS. Basophil percentageon 2021 Basophil percentage 3.5 mg/dL 2.5-4.9 [facility] Work Phone: Bilirubin [Mass/Vol] 0.30 mg/dL 0.20-1.00 [facility] Work Phone: Comment on above: For patients on eltr ombopag therapy, use of Dimension [place] TBIL is not recommended. Protein [Mass/Vol] 5.3 g/dL 6.4-8.2 [facility] Work Phone: Direct bilirubinon 2 Bilirubin.direct [Mass/Vol] 0.14 mg/dL 0.00-0.30 [facility] Work Phone: Laboratory - Chemistry and C hemistry - challengeon 02-17-2022 ALP [Catalytic activity/Vol] 117 U/L 45-117 [facility] Work Phone: ALT [Catalytic activity/Vol] 46 U/L 13-56 [facility] Work Phone: Free T4 [Mass/Vol] 0.87 ng/dL 0.76-1.46 [facility] Work Phone: Globulin (S) [Mass/Vol] 2.6 g/dL 2.2-4.2 [facility] Work Phone: Magnesium [Mass/Vol] 1.9 mg/dL 1.6-2.6 [facility] Work Phone: No Panel Informationon 02-17 Thyroid Stimulating Hormone (TSH) 0.15 uIU/mL 0.358-3.74 [facility] Work Phone: Serum or plasma albumin juli urement (mass/volume)on 02-17-2022 Albumin [Mass/Vol] 2.7 g/dL 3.2-5.0 [facility] Work Phone: Thin prep Papanicolaou smear with manual screeningon 02-17-2022 Thin prep Papanicolaou smear with manual screening 145 U/L 15-37 [facility] Work Phone: Absolute lymphocyte counton 02-16-2022 Lymphocytes Auto (Unsp spec) [#/Vol] 0.57 10*3/uL 0.83-4.51 [facility] Work Phone: Assessment of wrist artery p atency prior to arterial punctureon 02-16-2022 Arterial patency Wrist artery --pre arterial puncture Positive [facility] Work Phone: Base excesson 02-16-2022 Base excess Calc (BldV) [Moles/Vol] -10 mmol/L -2-2 [facility] Work Phone: Basophil percentageon 2021 Lactate [Moles/Vol] 1.7 mmol/L 0.4-2.0 [facility] Work Phone: Basophil percentage 15.4 mmol/L 22-26 [facility] Work Phone: Basophils/100 WBC (Bld) 95 % 95-99 [facility] Work Phone: Basophil percentage 0-5 SEEN /hpf 0-5 [facility] Work Phone: Bilirubin [Mass/Vol] 0.50 mg/dL 0.20-1.00 [facility] Work Phone: Comment on above: For patients on eltr ombopag therapy, use of Dimension [place] TBIL is not recommended. Chloride [Moles/Vol] 106 mmol/L 98-107 [facility] Work [facility]: Glucose [Mass/Vol] 99 mg/dL 74-106 [facility] Work Phone: [phone] Potassium [Moles/Vol] 4.9 mmol/L 3.5-5.1 [facility] Work [facility]: [phone] Protein [Mass/Vol] 6.8 g/dL 6.4-8.2 [facility] Work Phone: [phone] Sodium [Moles/Vol] 135 mmol/L 136-145 [facility] Work Phone: [phone] Basophils/100 WBC (Bld) 0.2 % 0-1 [facility] Work Phone: Eosinophils/100 WBC (Bld) 0.0 % 0-5 [facility] Work Phone: Lactate [Moles/Vol] 3.1 mmol/L 0.4-2.0 [facility] Work Phone: Comment on above: Critical Result(s) C alled at: 13:54:29 02/16/2022 by: Amber Palomino to Markus. Results read back by same. Neutrophils (Bld) [#/Vol] 11.7 10*3/uL 2.0-7.7 [facility] Work Phone: [phone] Neutrophils/100 WBC (Bld) 89.8 % 47-70 [facility] Work Phone: [phone] WBC (Bld) [#/Vol] 13.0 10*3/uL 4.4-11.0 [facility] Work Phone: Bilirubin Test strip Ql (U)o n 02-16-2022 Bilirubin Ql (U) 3 mg/dL Negative [facility] Work Phone: Comment on above: COLOR OF URINE MAY A FFECT DIPSTICK RESULTS. Blood erythrocytes count (nu mber/volume)on 02-16-2022 RBC (Bld) [#/Vol] 4.12 10*6/uL 4.2-5.4 [facility] Work Phone: Blood hemoglobin measurement (mass/volume)on 02-16-2022 Hemoglobin (Bld) [Mass/Vol] 12.5 g/dL 12.0-15.0 [facility] Work Phone: Blood lymphocytes/100 leukoc yteson 02-16-2022 Lymphocytes/100 WBC (Bld) 4.4 % 19-41 [facility] Work Phone: Blood monocytes/100 leukocyt eson 02-16-2022 Monocytes/100 WBC (Bld) 4.8 % 0-10 [facility] Work Phone: Blood platelet mean volumeon 02-16-2022 Platelet mean volume (Bld) [Entitic vol] 8.9 fL 6.2-12.0 [facility] Work Phone: CO2 (BldA) [Partial pressure ]on 02-16-2022 CO2 (Bld) [Partial pressure] 27.2 mm[Hg] 35-45 [facility] Work Phone: Determination of erythrocyte mean corpuscular volume (MCV)on 02-16-2022 MCV (RBC) [Entitic vol] 92.2 fL 81-99 [facility] Work Phone: Direct bilirubinon 2 Bilirubin.direct [Mass/Vol] 0.16 mg/dL 0.00-0.30 [facility] Work Phone: Hematocrit Auto (Bld) [Volum e fraction]on 02-16-2022 Hematocrit (Bld) [Volume fraction] 38.0 % 37-47 [facility] Work Phone: INR in Blood by Coagulation assayon 02-16-2022 INR Coag (Bld) [Relative time] 3.4 {INR} [facility] Work Phone: Ketones Test strip Ql (U)on 02-16-2022 Ketones Ql (U) 5 mg/dl Negative [facility] Work Phone: Laboratory - Chemistry and C hemistry - challengeon 02-16-2022 ALP [Catalytic activity/Vol] 90 U/L 45-117 [facility] Work Phone: [phone] ALT [Catalytic activity/Vol] 32 U/L 13-56 [facility] Work Phone: [phone] CO2 [Moles/Vol] 23.0 mmol/L 21.0-32.0 [facility] Work Phone: [phone] Globulin (S) [Mass/Vol] 3.0 g/dL 2.2-4.2 [facility] Work Phone: [phone] Urea nitrogen/Creatinine [Mass ratio] 13.6 mg/mg 10-20 [facility] Work Phone: Laboratory - Coagulationon 0 02-16-2022 PT Coag (PPP) [Time] 34.0 s 11.7-14.9 [facility] Work Phone: Laboratory - Hematology and Cell countson 02-16-2022 Erythrocyte distribution width (RBC) [Entitic vol] 46.2 fL 35.1-43.9 [facility] Work Phone: Erythrocyte distribution width (RBC) [Ratio] 13.6 % 11.6-14.6 [facility] Work Phone: Immature granulocytes/100 WBC (Bld) 0.800 % 0.0-0.9 [facility] Work Phone: [phone] Comment on above: IG% - Immature Granu locytes (promyelocytes, myelocytes and metamyelocytes) > 1% indicates that a LEFT SHIFT is Present. MCH (RBC) [Entitic mass] 30.3 pg 27.0-32.0 [facility] Work Phone: [phone] Nucleated RBC/100 WBC (Bld) [Ratio] 0 % 0-5 [facility] Work Phone: MCHC Auto (RBC) [Mass/Vol]on 02-16-2022 MCHC (RBC) [Mass/Vol] 32.9 g/dL 32-36 [facility] Work Phone: Mucus LM Ql (Urine sed)on Mucus Ql (Urine sed) 0 SEEN /hpf [facility] Work Phone: Nitrite Test strip Ql (U)on 02-16-2022 Nitrite Ql (U) Positive Negative [facility] Work Phone: No Panel Informationon 02-16 Blood Gas Liter Flow 2.0 /min [facility] Work Phone: Blood Gas Sample Site R Radial [facility] Work Phone: Blood Gas Specimen Type ART [facility] Work Phone: Blood Gas Total CO2 16 mmol/L [facility] Work Phone: Methicillin-Resist S.aureus DNA PCR Negative Negative [facility] Work Phone: Estimated Creatinine Clearance Calc 28.74 ml/min [facility] Work Phone: Estimated GFR (MDRD) Amer 38 mL/min >60 [facility] Work Phone: Comment on above: GFR Calc Estimated GFR (MDRD) Non-Af Amer 32 mL/min >60 [facility] Work Phone: Comment on above: Non- GFR Calc Troponin I High Sensitivity 14 pg/mL 3.0-54.0 [facility] Work Phone: Comment on above: Please Note: New Lary t Units and Gender Specific Reference Ranges. For more information see Policy Stat Procedure [place] High Sensitivity Troponin (TNIH) and attachments. Oxygen (BldA) [Partial press ure]on 02-16-2022 Oxygen (Bld) [Partial pressure] 76 mmHG 75-100 [facility] Work Phone: Platelets bldon 02-16-2022 Platelets (Bld) [#/Vol] 335 10*3/uL 150-450 [facility] Work Phone: Protein Test strip Ql (U)on 02-16-2022 Protein Ql (U) 100 mg/dl Negative [facility] Work Phone: Serum or plasma albumin juli urement (mass/volume)on 02-16-2022 Albumin [Mass/Vol] 3.8 g/dL 3.2-5.0 [facility] Work Phone: Serum or plasma calcium juli urement (mass/volume)on 02-16-2022 Calcium [Mass/Vol] 8.9 mg/dL 8.5-10.1 [facility] Work Phone: Serum or plasma creatinine m easurement (mass/volume)on 02-16-2022 Creatinine [Mass/Vol] 1.77 mg/dL 0.55-1.02 [facility] Work Phone: Comment on above: The validity of the calculated GFR & GFRAA in patients over 70 years has not been determined. Clinical correlation is essential. Serum or plasma urea nitroge n measurement (mass/volume)on 02-16-2022 Urea nitrogen [Mass/Vol] 24 mg/dL 7-18 [facility] Work Phone: Squamous epithelial cells de tection in urine sediment by light microscopyon 02-16-2022 Epithelial cells.squamous LM Ql (Urine sed) 0-5 SEEN /hpf 5-10 [facility] Work Phone: Thin prep Papanicolaou smear with manual screeningon 02-16-2022 Thin prep Papanicolaou smear with manual screening 63 U/L 15-37 [facility] Work Phone: Thin prep Papanicolaou smear with manual screening 6 5-15 [facility] Work Phone: Urine blood detectionon 02-04 RBC Ql (U) 250 /ul Negative [facility] Work Phone: RBC Ql (U) 0 SEEN /hpf 0-5 [facility] Work Phone: Urine clarityon 02-16-2022 Clarity (U) Sl. Cloudy Clear [facility] Work Phone: Urine color determinationon 02-16-2022 Color (U) Yellow Yellow [facility] Work Phone: Urine glucose detectionon Glucose Ql (U) Normal mg/dl Normal [facility] Work Phone: Urine leukocyte esterase det ection by dipstickon 02-16-2022 Leukocyte esterase Test strip Ql (U) 100 /ul Negative [facility] Work Phone: Urine pHon 02-16-2022 pH (U) 6.0 [pH] 5.0 - 8.0 [facility] Work Phone: Urine sediment bacteria coun t by microscopy (number/high power field)on 02-16-2022 Bacteria LM.HPF (Urine sed) [#/Area] 0 /[HPF] None Seen [facility] Work Phone: Urine specific gravity measu rementon 02-16-2022 Specific gravity (U) [Rel density] 1.010 1.002-1.030 [facility] Work Phone: Urobilinogen Auto test strip Ql (U)on 02-16-2022 Urobilinogen Ql (U) 4 mg/dl Normal [facility] Work Phone: pH measurementon 02-16-2022 pH (Unsp spec) 7.36 [pH] 7.35-7.45 [facility] Work Phone: Absolute lymphocyte counton 12-20-2021 Lymphocytes Auto (Unsp spec) [#/Vol] 1.67 10*3/uL 0.83-4.51 [facility] Work Phone: Basophil percentageon 2021 Basophils/100 WBC (Bld) 1.0 % 0-1 [facility] Work Phone: Bilirubin [Mass/Vol] 0.40 mg/dL 0.20-1.00 [facility] Work Phone: Comment on above: For patients on eltr ombopag therapy, use of Dimension [place] TBIL is not recommended. Chloride [Moles/Vol] 110 mmol/L 98-107 [facility] Work Phone: [phone] Eosinophils/100 WBC (Bld) 5.1 % 0-5 [facility] Work Phone: [phone] Glucose [Mass/Vol] 91 mg/dL 74-106 [facility] Work Phone: Neutrophils (Bld) [#/Vol] 2.7 10*3/uL 2.0-7.7 [facility] Work Phone: [phone] Neutrophils/100 WBC (Bld) 52.6 % 47-70 [facility] Work Phone: [phone] Potassium [Moles/Vol] 4.5 mmol/L 3.5-5.1 [facility] Work Phone: [phone] Protein [Mass/Vol] 5.8 g/dL 6.4-8.2 [facility] Work Phone: [phone] Sodium [Moles/Vol] 139 mmol/L 136-145 [facility] Work Phone: [phone] WBC (Bld) [#/Vol] 5.1 10*3/uL 4.4-11.0 [facility] Work Phone: [phone] Blood erythrocytes count (nu mber/volume)on 12-20-2021 RBC (Bld) [#/Vol] 3.43 10*6/uL 4.2-5.4 [facility] Work Phone: [phone] Blood hemoglobin measurement (mass/volume)on 12-20-2021 Hemoglobin (Bld) [Mass/Vol] 10.7 g/dL 12.0-15.0 [facility] Work Phone: [phone] Blood lymphocytes/100 leukoc yteson 12-20-2021 Lymphocytes/100 WBC (Bld) 32.5 % 19-41 [facility] Work Phone: Blood monocytes/100 leukocyt eson 12-20-2021 Monocytes/100 WBC (Bld) 8.6 % 0-10 [facility] Work Phone: Blood platelet mean volumeon 12-20-2021 Platelet mean volume (Bld) [Entitic vol] 10.3 fL 6.2-12.0 [facility] Work Phone: Determination of erythrocyte mean corpuscular volume (MCV)on 12-20-2021 MCV (RBC) [Entitic vol] 97.4 fL 81-99 [facility] Work Phone: Hematocrit Auto (Bld) [Volum e fraction]on 12-20-2021 Hematocrit (Bld) [Volume fraction] 33.4 % 37-47 [facility] Work Phone: INR in Blood by Coagulation assayon 12-20-2021 INR Coag (Bld) [Relative time] 1.1 {INR} [facility] Work Phone: Laboratory - Chemistry and C hemistry - challengeon 12-20-2021 ALP [Catalytic activity/Vol] 60 U/L 45-117 [facility] Work Phone: ALT [Catalytic activity/Vol] 40 U/L 13-56 [facility] Work Phone: CO2 [Moles/Vol] 25.0 mmol/L 21.0-32.0 [facility] Work Phone: Globulin (S) [Mass/Vol] 2.9 g/dL 2.2-4.2 [facility] Work Phone: Urea nitrogen/Creatinine [Mass ratio] 32.5 mg/mg 10-20 [facility] Work Phone: Laboratory - Coagulationon 0 12-20-2021 PT Coag (PPP) [Time] 14.0 s 11.7-14.9 [facility] Work Phone: Laboratory - Hematology and Cell countson 12-20-2021 Erythrocyte distribution width (RBC) [Entitic vol] 55.8 fL 35.1-43.9 [facility] Work Phone: Erythrocyte distribution width (RBC) [Ratio] 15.5 % 11.6-14.6 [facility] Work Phone: Immature granulocytes/100 WBC (Bld) 0.200 % 0.0-0.9 [facility] Work Phone: Comment on above: IG% - Immature Granu locytes (promyelocytes, myelocytes and metamyelocytes) > 1% indicates that a LEFT SHIFT is Present. MCH (RBC) [Entitic mass] 31.2 pg 27.0-32.0 [facility] Work Phone: Nucleated RBC/100 WBC (Bld) [Ratio] 0 % 0-5 [facility] Work Phone: MCHC Auto (RBC) [Mass/Vol]on 12-20-2021 MCHC (RBC) [Mass/Vol] 32.0 g/dL 32-36 [facility] Work Phone: No Panel Informationon 12-20 Estimated Creatinine Clearance Calc 61.28 ml/min [facility] Work Phone: Estimated GFR (MDRD) Amer 92 mL/min >60 [facility] Work Phone: Comment on above: GFR Calc Estimated GFR (MDRD) Non-Af Amer 76 mL/min >60 [facility] Work Phone: Comment on above: Non- GFR Calc Platelets bldon 12-20-2021 Platelets (Bld) [#/Vol] 242 10*3/uL 150-450 [facility] Work Phone: Serum or plasma albumin juli urement (mass/volume)on 12-20-2021 Albumin [Mass/Vol] 2.9 g/dL 3.2-5.0 [facility] Work Phone: Serum or plasma albumin/glob ulin mass ratioon 12-20-2021 Albumin/Globulin [Mass ratio] 1.0 {ratio} 0.9-2.4 [facility] Work Phone: Serum or plasma calcium juli urement (mass/volume)on 12-20-2021 Calcium [Mass/Vol] 8.6 mg/dL 8.5-10.1 [facility] Work Phone: Serum or plasma creatinine m easurement (mass/volume)on 12-20-2021 Creatinine [Mass/Vol] 0.83 mg/dL 0.55-1.02 [facility] Work Phone: Comment on above: The validity of the calculated GFR & GFRAA in patients over 70 years has not been determined. Clinical correlation is essential. Serum or plasma urea nitroge n measurement (mass/volume)on 12-20-2021 Urea nitrogen [Mass/Vol] 27 mg/dL 7-18 [facility] Work Phone: Thin prep Papanicolaou smear with manual screeningon 12-20-2021 Thin prep Papanicolaou smear with manual screening 25 U/L 15-37 [facility] Work Phone: Thin prep Papanicolaou smear with manual screening 4 5-15 [facility] Work Phone: Basophil percentageon 2021 Bilirubin [Mass/Vol] 0.50 mg/dL 0.20-1.00 [facility] Work Phone: Comment on above: For patients on eltr ombopag therapy, use of Dimension [place] TBIL is not recommended. Chloride [Moles/Vol] 110 mmol/L 98-107 [facility] Work Phone: Glucose [Mass/Vol] 86 mg/dL 74-106 [facility] Work Phone: Potassium [Moles/Vol] 4.1 mmol/L 3.5-5.1 [facility] Work Phone: Comment on above: Slight Hemolysis, Re sult may be falsely increased. Protein [Mass/Vol] 6.0 g/dL 6.4-8.2 [facility] Work Phone: Sodium [Moles/Vol] 139 mmol/L 136-145 [facility] Work Phone: INR in Blood by Coagulation assayon 12-15-2021 INR Coag (Bld) [Relative time] 3.3 {INR} [facility] Work Phone: Laboratory - Chemistry and C hemistry - challengeon 12-15-2021 ALP [Catalytic activity/Vol] 78 U/L 45-117 [facility] Work Phone: ALT [Catalytic activity/Vol] 35 U/L 13-56 [facility] Work Phone: CO2 [Moles/Vol] 22.0 mmol/L 21.0-32.0 [facility] Work Phone: Globulin (S) [Mass/Vol] 3.0 g/dL 2.2-4.2 [facility] Work Phone: Urea nitrogen/Creatinine [Mass ratio] 27.8 mg/mg 10-20 [facility] Work Phone: Laboratory - Coagulationon 0 12-15-2021 PT Coag (PPP) [Time] 32.9 s 11.7-14.9 [facility] Work Phone: No Panel Informationon 12-15 Estimated Creatinine Clearance Calc 56.52 ml/min [facility] Work Phone: Estimated GFR (MDRD) Amer 84 mL/min >60 [facility] Work Phone: Comment on above: GFR Calc Estimated GFR (MDRD) Non-Af Amer 69 mL/min >60 [facility] Work Phone: [phone] Comment on above: Non- GFR Calc Serum or plasma albumin juli urement (mass/volume)on 12-15-2021 Albumin [Mass/Vol] 3.0 g/dL 3.2-5.0 [facility] Work Phone: Serum or plasma albumin/glob ulin mass ratioon 12-15-2021 Albumin/Globulin [Mass ratio] 1.0 {ratio} 0.9-2.4 [facility] Work Phone: Serum or plasma calcium juli urement (mass/volume)on 12-15-2021 Calcium [Mass/Vol] 8.7 mg/dL 8.5-10.1 [facility] Work Phone: Serum or plasma creatinine m easurement (mass/volume)on 12-15-2021 Creatinine [Mass/Vol] 0.90 mg/dL 0.55-1.02 [facility] Work Phone: Comment on above: The validity of the calculated GFR & GFRAA in patients over 70 years has not been determined. Clinical correlation is essential. Serum or plasma urea nitroge n measurement (mass/volume)on 12-15-2021 Urea nitrogen [Mass/Vol] 25 mg/dL 7-18 [facility] Work Phone: Thin prep Papanicolaou smear with manual screeningon 12-15-2021 Thin prep Papanicolaou smear with manual screening 51 U/L 15-37 [facility] Work Phone: Comment on above: Slight Hemolysis, Re sult may be falsely increased. Thin prep Papanicolaou smear with manual screening 7 5-15 [facility] Work Phone: Absolute lymphocyte counton 12-14-2021 Lymphocytes Auto (Unsp spec) [#/Vol] 1.21 10*3/uL 0.83-4.51 [facility] Work Phone: Basophil percentageon 2021 Basophil percentage 10-25 SEEN /hpf 0-5 [facility] Work Phone: Basophils/100 WBC (Bld) 0.6 % 0-1 [facility] Work Phone: Chloride [Moles/Vol] 108 mmol/L 98-107 [facility] Work Phone: Eosinophils/100 WBC (Bld) 1.1 % 0-5 [facility] Work Phone: Glucose [Mass/Vol] 120 mg/dL 74-106 [facility] Work Phone: Comment on above: Fasting Glucose resu lt from 100 to 125 mg/dL suggests IMPAIRED HOMEOSTASIS per A.D.A. criteria. Neutrophils (Bld) [#/Vol] 7.0 10*3/uL 2.0-7.7 [facility] Work Phone: Neutrophils/100 WBC (Bld) 78.0 % 47-70 [facility] Work Phone: Potassium [Moles/Vol] 4.4 mmol/L 3.5-5.1 [facility] Work Phone: Comment on above: Moderate Hemolysis, Result may be falsely increased. Sodium [Moles/Vol] 139 mmol/L 136-145 [facility] Work Phone: WBC (Bld) [#/Vol] 8.9 10*3/uL 4.4-11.0 [facility] Work Phone: Bilirubin Test strip Ql (U)o n 12-14-2021 Bilirubin Ql (U) 1 mg/dL Negative [facility] Work Phone: Comment on above: COLOR OF URINE MAY A FFECT DIPSTICK RESULTS. Blood erythrocytes count (nu mber/volume)on 12-14-2021 RBC (Bld) [#/Vol] 4.39 10*6/uL 4.2-5.4 [facility] Work Phone: Blood hemoglobin measurement (mass/volume)on 12-14-2021 Hemoglobin (Bld) [Mass/Vol] 13.7 g/dL 12.0-15.0 [facility] Work Phone: Blood lymphocytes/100 leukoc yteson 12-14-2021 Lymphocytes/100 WBC (Bld) 13.5 % 19-41 [facility] Work Phone: Blood monocytes/100 leukocyt eson 12-14-2021 Monocytes/100 WBC (Bld) 6.5 % 0-10 [facility] Work Phone: Blood platelet mean volumeon 12-14-2021 Platelet mean volume (Bld) [Entitic vol] 10.0 fL 6.2-12.0 [facility] Work Phone: Calcium oxalate crystals det ection in urine sediment by light microscopyon 12-14-2021 Calcium oxalate crystals LM Ql (Urine sed) RARE /hpf [facility] Work Phone: Culture, urineon 12-14-2021 Bacteria identified Cx Nom (U) Escherichia coli [facility] Work Phone: Determination of erythrocyte mean corpuscular volume (MCV)on 12-14-2021 MCV (RBC) [Entitic vol] 93.6 fL 81-99 [facility] Work Phone: Hematocrit Auto (Bld) [Volum e fraction]on 12-14-2021 Hematocrit (Bld) [Volume fraction] 41.1 % 37-47 [facility] Work Phone: INR in Blood by Coagulation assayon 12-14-2021 INR Coag (Bld) [Relative time] 5.2 {INR} [facility] Work Phone: Comment on above: CRITICAL VALUE VERIF IED. CALLED TO ARIK COSTELLO (ER)12/14/21 1130 Ko Meyers.RESULTS READ BACK BY SAME. Ketones Test strip Ql (U)on 12-14-2021 Ketones Ql (U) 15 mg/dl Negative [facility] Work Phone: Laboratory - Chemistry and C hemistry - challengeon 12-14-2021 CO2 [Moles/Vol] 24.0 mmol/L 21.0-32.0 [facility] Work Phone: Urea nitrogen/Creatinine [Mass ratio] 20.5 mg/mg 10-20 [facility] Work Phone: Laboratory - Coagulationon 0 12-14-2021 PT Coag (PPP) [Time] 47.4 s 11.7-14.9 [facility] Work Phone: Laboratory - Hematology and Cell countson 12-14-2021 Erythrocyte distribution width (RBC) [Entitic vol] 52.3 fL 35.1-43.9 [facility] Work Phone: Erythrocyte distribution width (RBC) [Ratio] 15.1 % 11.6-14.6 [facility] Work Phone: Immature granulocytes/100 WBC (Bld) 0.300 % 0.0-0.9 [facility] Work Phone: Comment on above: IG% - Immature Granu locytes (promyelocytes, myelocytes and metamyelocytes) > 1% indicates that a LEFT SHIFT is Present. MCH (RBC) [Entitic mass] 31.2 pg 27.0-32.0 [facility] Work Phone: Nucleated RBC/100 WBC (Bld) [Ratio] 0 % 0-5 [facility] Work Phone: MCHC Auto (RBC) [Mass/Vol]on 12-14-2021 MCHC (RBC) [Mass/Vol] 33.3 g/dL 32-36 [facility] Work Phone: Mucus LM Ql (Urine sed)on Mucus Ql (Urine sed) 0 SEEN /hpf [facility] Work Phone: Nitrite Test strip Ql (U)on 12-14-2021 Nitrite Ql (U) Positive Negative [facility] Work Phone: No Panel Informationon 12-14 Estimated Creatinine Clearance Calc 41.69 ml/min [facility] Work Phone: Estimated GFR (MDRD) Amer 59 mL/min >60 [facility] Work Phone: Comment on above: GFR Calc Estimated GFR (MDRD) Non-Af Amer 49 mL/min >60 [facility] Work Phone: Comment on above: Non- GFR Calc Platelets bldon 12-14-2021 Platelets (Bld) [#/Vol] 299 10*3/uL 150-450 [facility] Work Phone: Protein Test strip Ql (U)on 12-14-2021 Protein Ql (U) 30 mg/dl Negative [facility] Work Phone: Serum or plasma calcium juli urement (mass/volume)on 12-14-2021 Calcium [Mass/Vol] 9.4 mg/dL 8.5-10.1 [facility] Work Phone: Serum or plasma creatinine m easurement (mass/volume)on 12-14-2021 Creatinine [Mass/Vol] 1.22 mg/dL 0.55-1.02 [facility] Work Phone: Comment on above: The validity of the calculated GFR & GFRAA in patients over 70 years has not been determined. Clinical correlation is essential. Serum or plasma urea nitroge n measurement (mass/volume)on 12-14-2021 Urea nitrogen [Mass/Vol] 25 mg/dL 7-18 [facility] Work Phone: Squamous epithelial cells de tection in urine sediment by light microscopyon 12-14-2021 Epithelial cells.squamous LM Ql (Urine sed) 0-5 SEEN /hpf 5-10 [facility] Work Phone: Thin prep Papanicolaou smear with manual screeningon 12-14-2021 Thin prep Papanicolaou smear with manual screening 7 5-15 [facility] Work Phone: Urine blood detectionon 12-05 RBC Ql (U) 10 /ul Negative [facility] Work Phone: RBC Ql (U) 0-5 SEEN /hpf 0-5 [facility] Work Phone: Urine clarityon 12-14-2021 Clarity (U) Sl. Cloudy Clear [facility] Work Phone: Urine color determinationon 12-14-2021 Color (U) Yellow Yellow [facility] Work Phone: Urine glucose detectionon Glucose Ql (U) Normal mg/dl Normal [facility] Work Phone: Urine leukocyte esterase det ection by dipstickon 12-14-2021 Leukocyte esterase Test strip Ql (U) 100 /ul Negative [facility] Work Phone: Urine pHon 12-14-2021 pH (U) 5.0 [pH] 5.0 - 8.0 [facility] Work Phone: Urine sediment bacteria coun t by microscopy (number/high power field)on 12-14-2021 Bacteria LM.HPF (Urine sed) [#/Area] 1 /[HPF] None Seen [facility] Work Phone: Urine specific gravity measu rementon 12-14-2021 Specific gravity (U) [Rel density] 1.025 1.002-1.030 [facility] Work Phone: Urobilinogen Auto test strip Ql (U)on 12-14-2021 Urobilinogen Ql (U) 4 mg/dl Normal [facility] Work Phone: INR in Blood by Coagulation assayon 12-13-2021 INR Coag (Bld) [Relative time] 4.2 {INR} [facility] Work Phone: Laboratory - Coagulationon 0 12-13-2021 PT Coag (PPP) [Time] 40.0 s 11.7-14.9 [facility] [place] Work Phone: Whole blood prothrombin time on 12-13-2021 PT Coag (Bld) [Time] 62.0 s 11.7-14.9 [facility] Work Phone: Laboratory - Coagulationon 0 12-10-2021 INR Coag (Bld) [Relative time] 1.6 {INR} [facility] Work Phone: Comment on above: Critical Value > 4.0 Whole blood prothrombin time on 12-10-2021 PT Coag (Bld) [Time] 19.6 s 11.7-14.9 [facility] [place] Work Phone: Absolute lymphocyte counton 12-06-2021 Lymphocytes Auto (Unsp spec) [#/Vol] 1.25 10*3/uL 0.83-4.51 [facility] Work Phone: Basophil percentageon 2021 Basophils/100 WBC (Bld) 0.6 % 0-1 [facility] Work Phone: Chloride [Moles/Vol] 112 mmol/L 98-107 [facility] [place] Work Phone: [phone] Eosinophils/100 WBC (Bld) 1.1 % 0-5 [facility] Work Phone: Glucose [Mass/Vol] 103 mg/dL 74-106 [facility] Work Phone: Comment on above: Fasting Glucose resu lt from 100 to 125 mg/dL suggests IMPAIRED HOMEOSTASIS per A.D.A. criteria. Neutrophils (Bld) [#/Vol] 6.2 10*3/uL 2.0-7.7 [facility] Work Phone: [phone] Neutrophils/100 WBC (Bld) 76.8 % 47-70 [facility] Work Phone: Potassium [Moles/Vol] 4.2 mmol/L 3.5-5.1 [facility] Work Phone: [phone] Sodium [Moles/Vol] 141 mmol/L 136-145 [facility] Work Phone: [phone] WBC (Bld) [#/Vol] 8.1 10*3/uL 4.4-11.0 [facility] Work Phone: Blood erythrocytes count (nu mber/volume)on 12-06-2021 RBC (Bld) [#/Vol] 4.07 10*6/uL 4.2-5.4 [facility] Work Phone: Blood hemoglobin measurement (mass/volume)on 12-06-2021 Hemoglobin (Bld) [Mass/Vol] 12.6 g/dL 12.0-15.0 [facility] Work Phone: Blood lymphocytes/100 leukoc yteson 12-06-2021 Lymphocytes/100 WBC (Bld) 15.5 % 19-41 [facility] Work Phone: Blood monocytes/100 leukocyt eson 12-06-2021 Monocytes/100 WBC (Bld) 5.8 % 0-10 [facility] Work Phone: Blood platelet mean volumeon 12-06-2021 Platelet mean volume (Bld) [Entitic vol] 9.8 fL 6.2-12.0 [facility] Work Phone: Determination of erythrocyte mean corpuscular volume (MCV)on 12-06-2021 MCV (RBC) [Entitic vol] 94.8 fL 81-99 [facility] Work Phone: Hematocrit Auto (Bld) [Volum e fraction]on 12-06-2021 Hematocrit (Bld) [Volume fraction] 38.6 % 37-47 [facility] Work Phone: INR in Blood by Coagulation assayon 12-06-2021 INR Coag (Bld) [Relative time] 4.3 {INR} [facility] Work Phone: Comment on above: CRITICAL VALUE VERIF IED. CALLED TO YASMANY BLUNT12/06/21 1114 Jessica Garcia.RESULTS READ BACK BY SAME . Laboratory - Chemistry and C hemistry - challengeon 12-06-2021 CO2 [Moles/Vol] 25.0 mmol/L 21.0-32.0 [facility] Work Phone: Urea nitrogen/Creatinine [Mass ratio] 19.0 mg/mg 10-20 [facility] Work Phone: Laboratory - Coagulationon 0 12-06-2021 PT Coag (PPP) [Time] 40.9 s 11.7-14.9 [facility] Work Phone: Laboratory - Hematology and Cell countson 12-06-2021 Erythrocyte distribution width (RBC) [Entitic vol] 51.8 fL 35.1-43.9 [facility] Work Phone: Erythrocyte distribution width (RBC) [Ratio] 14.9 % 11.6-14.6 [facility] Work Phone: Immature granulocytes/100 WBC (Bld) 0.200 % 0.0-0.9 [facility] Work Phone: Comment on above: IG% - Immature Granu locytes (promyelocytes, myelocytes and metamyelocytes) > 1% indicates that a LEFT SHIFT is Present. MCH (RBC) [Entitic mass] 31.0 pg 27.0-32.0 [facility] Work Phone: Nucleated RBC/100 WBC (Bld) [Ratio] 0 % 0-5 [facility] Work Phone: MCHC Auto (RBC) [Mass/Vol]on 12-06-2021 MCHC (RBC) [Mass/Vol] 32.6 g/dL 32-36 [facility] Work Phone: No Panel Informationon 12-06 Estimated Creatinine Clearance Calc 43.85 ml/min [facility] Work Phone: Estimated GFR (MDRD) Amer 63 mL/min >60 [facility] Work Phone: Comment on above: GFR Calc Estimated GFR (MDRD) Non-Af Amer 52 mL/min >60 [facility] Work Phone: Comment on above: Non- GFR Calc Platelets bldon 12-06-2021 Platelets (Bld) [#/Vol] 279 10*3/uL 150-450 [facility] Work Phone: Serum or plasma calcium juli urement (mass/volume)on 12-06-2021 Calcium [Mass/Vol] 8.7 mg/dL 8.5-10.1 [facility] Work Phone: Serum or plasma creatinine m easurement (mass/volume)on 12-06-2021 Creatinine [Mass/Vol] 1.16 mg/dL 0.55-1.02 [facility] Work Phone: Comment on above: The validity of the calculated GFR & GFRAA in patients over 70 years has not been determined. Clinical correlation is essential. Serum or plasma urea nitroge n measurement (mass/volume)on 12-06-2021 Urea nitrogen [Mass/Vol] 22 mg/dL 7-18 [facility] Work Phone: Thin prep Papanicolaou smear with manual screeningon 12-06-2021 Thin prep Papanicolaou smear with manual screening 4 - [facility] Work Phone: INR in Blood by Coagulation assayon 11-23-2021 INR Coag (Bld) [Relative time] 3.9 {INR} [facility] Work Phone: Laboratory - Coagulationon 0 11-23-2021 PT Coag (PPP) [Time] 38.0 s 11.7-14.9 [facility] Work Phone: Whole blood prothrombin time on 11-23-2021 PT Coag (Bld) [Time] 49.0 s 11.7-14.9 [facility] Work Phone: Laboratory - Coagulationon 0 11-08-2021 INR Coag (Bld) [Relative time] 2.7 {INR} [facility] Work Phone: Comment on above: Critical Value > 4.0 Whole blood prothrombin time on 11-08-2021 PT Coag (Bld) [Time] 31.4 s 11.7-14.9 [facility] Work Phone: INR in Blood by Coagulation assayon 10-29-2021 INR Coag (Bld) [Relative time] 3.7 {INR} [facility] Work Phone: Laboratory - Coagulationon 0 10-29-2021 PT Coag (PPP) [Time] 35.8 s 11.7-14.9 [facility] [place] Work Phone: Whole blood prothrombin time on 10-29-2021 PT Coag (Bld) [Time] 47.5 s 11.7-14.9 [facility] Work Phone: Laboratory - Coagulationon 0 10-01-2021 INR Coag (Bld) [Relative time] 2.3 {INR} [facility] Work Phone: Comment on above: Critical Value > 4.0 Whole blood prothrombin time on 10-01-2021 PT Coag (Bld) [Time] 27.2 s 11.9-14.4 [facility] Work Phone: Laboratory - Coagulationon 0 09-13-2021 INR Coag (Bld) [Relative time] 2.4 {INR} [facility] Work Phone: Comment on above: Critical Value > 4.0 Whole blood prothrombin time on 09-13-2021 PT Coag (Bld) [Time] 27.8 s 11.9-14.4 [facility] [place] Work Phone: Laboratory - Coagulationon 0 08-23-2021 INR Coag (Bld) [Relative time] 2.8 {INR} [facility] Work Phone: Comment on above: Critical Value > 4.0 Whole blood prothrombin time on 08-23-2021 PT Coag (Bld) [Time] 32.2 s 11.9-14.4 [facility] Work Phone: Laboratory - Coagulationon 0 08-09-2021 INR Coag (Bld) [Relative time] 2.3 {INR} [facility] Work Phone: Comment on above: Critical Value > 4.0 Whole blood prothrombin time on 08-09-2021 PT Coag (Bld) [Time] 25.7 s 11.9-14.4 [facility] Work Phone: Basophil percentageon 2020 Chloride [Moles/Vol] 108 mmol/L 98-107 [facility]: Glucose [Mass/Vol] 104 mg/dL 74-106 [facility] Work Phone: Comment on above: Fasting Glucose resu lt from 100 to 125 mg/dL suggests IMPAIRED HOMEOSTASIS per A.D.A. criteria.Please note revised GLUCOSE reference range effective 2017. Potassium [Moles/Vol] 4.3 mmol/L 3.5-5.1 [facility] Work Phone: Sodium [Moles/Vol] 139 mmol/L 136-145 [facility] Work Phone: WBC (Bld) [#/Vol] 7.6 10*3/uL 4.4-11.0 [facility] Work Phone: Blood erythrocytes count (nu mber/volume)on 07-22-2021 RBC (Bld) [#/Vol] 4.31 10*6/uL 4.2-5.4 [facility] Work Phone: Blood hemoglobin measurement (mass/volume)on 07-22-2021 Hemoglobin (Bld) [Mass/Vol] 12.7 g/dL 12.0-15.0 [facility] Work Phone: Blood platelet mean volumeon 07-22-2021 Platelet mean volume (Bld) [Entitic vol] 9.4 fL 6.2-12.0 [facility] Work Phone: Determination of erythrocyte mean corpuscular volume (MCV)on 07-22-2021 MCV (RBC) [Entitic vol] 91.4 fL 81-99 [facility] Work Phone: Hematocrit Auto (Bld) [Volum e fraction]on 07-22-2021 Hematocrit (Bld) [Volume fraction] 39.4 % 37-47 [facility] Work Phone: INR in Blood by Coagulation assayon 07-22-2021 INR Coag (Bld) [Relative time] 1.6 {INR} [facility] Work Phone: Laboratory - Chemistry and C hemistry - challengeon 07-22-2021 CO2 [Moles/Vol] 23.0 mmol/L 21.0-32.0 [facility] Work Phone: Magnesium [Mass/Vol] 2.0 mg/dL 1.6-2.6 [facility] Work Phone: Natriuretic peptide B (Bld) [Mass/Vol] 43.8 pg/mL 0-100 [facility] Work Phone: Urea nitrogen/Creatinine [Mass ratio] 11.5 mg/mg 10-20 [facility] Work Phone: Laboratory - Coagulationon 1 09-22-2020 PT Coag (PPP) [Time] 18.6 s 11.7-14.9 [facility] Work Phone: Laboratory - Hematology and Cell countson 07-22-2021 Erythrocyte distribution width (RBC) [Entitic vol] 56.0 fL 35.1-43.9 [facility] Work Phone: Erythrocyte distribution width (RBC) [Ratio] 16.7 % 11.6-14.6 [facility] Work Phone: MCH (RBC) [Entitic mass] 29.5 pg 27.0-32.0 [facility] Work Phone: MCHC Auto (RBC) [Mass/Vol]on 07-22-2021 MCHC (RBC) [Mass/Vol] 32.2 g/dL 32-36 [facility] Work Phone: No Panel Informationon 07-22 Estimated GFR (MDRD) Amer 71 mL/min >60 [facility] Work Phone: Comment on above: GFR Calc Estimated GFR (MDRD) Non-Af Amer 59 mL/min >60 [facility] Work Phone: Comment on above: Non- GFR Calc Thyroid Stimulating Hormone (TSH) 1.00 uIU/mL 0.358-3.74 [facility] Work Phone: Platelets bldon 07-22-2021 Platelets (Bld) [#/Vol] 256 10*3/uL 150-450 [facility] Work Phone: Serum or plasma calcium juli urement (mass/volume)on 07-22-2021 Calcium [Mass/Vol] 8.9 mg/dL 8.5-10.1 [facility] Work Phone: Serum or plasma creatinine m easurement (mass/volume)on 07-22-2021 Creatinine [Mass/Vol] 1.04 mg/dL 0.55-1.02 [facility] Work Phone: Comment on above: The validity of the calculated GFR & GFRAA in patients over 70 years has not been determined. Clinical correlation is essential. Serum or plasma urea nitroge n measurement (mass/volume)on 07-22-2021 Urea nitrogen [Mass/Vol] 12 mg/dL 7-18 [facility] Work Phone: Thin prep Papanicolaou smear with manual screeningon 07-22-2021 Thin prep Papanicolaou smear with manual screening 8 5-15 [facility] Work Phone: Laboratory - Coagulationon 1 09-16-2020 INR Coag (Bld) [Relative time] 3.9 {INR} [facility] Work Phone: Comment on above: Critical Value > 4.0 Whole blood prothrombin time on 07-16-2021 PT Coag (Bld) [Time] 42.4 s 11.9-14.4 [facility] Work Phone: Laboratory - Coagulationon 1 09-07-2020 INR Coag (Bld) [Relative time] 3.0 {INR} [facility] Work Phone: Comment on above: Critical Value > 4.0 Whole blood prothrombin time on 07-07-2021 PT Coag (Bld) [Time] 32.9 s 11.9-14.4 [facility] Work Phone: Prothrombin Timeon 1 INR Coag (PPP) [Relative time] 1.7 {INR} Normal [facility] Comment on above: Performed By: #### P T #### [facility] [address] [place] [address] PT Coag (PPP) [Time] 19.3 s Critically high 12.3-14.9 [facility] Comment on above: Performed By: #### P T #### [facility] [address] [place] [address] Prothrombin Timeon 1 INR Coag (PPP) [Relative time] 1.3 {INR} Normal [facility] Comment on above: Performed By: #### P T #### [facility] [address] [place] [address] PT Coag (PPP) [Time] 16.3 s Critically high 12.3-14.9 [facility] Comment on above: Performed By: #### P T #### [facility] [address] [place] [address] Prothrombin Timeon 1 INR Coag (PPP) [Relative time] 1.6 {INR} Normal [facility] Comment on above: Performed By: #### P T #### [facility] [address] [place] [address] PT Coag (PPP) [Time] 19.0 s Critically high 12.3-14.9 [facility] Comment on above: Performed By: #### P T #### [facility] [address] [place] [address] Liver Panelon 01-30-2021 Albumin [Mass/Vol] 3.9 g/dL Normal 3.5-4.6 [facility] Comment on above: Performed By: #### L IVER #### [facility] [address] [place] [address] ALP [Catalytic activity/Vol] 90 U/L Normal 40-130 [facility] Comment on above: Performed By: #### L IVER #### [facility] [address] [place] [address] ALT [Catalytic activity/Vol] 18 U/L Normal 0-33 [facility] Comment on above: Performed By: #### L IVER #### [facility] [address] [place] [address] AST [Catalytic activity/Vol] 28 U/L Normal 0-35 [facility] Comment on above: Performed By: #### L IVER #### [facility] [address] [place] [address] Bilirubin [Mass/Vol] 2.2 mg/dL Critically high 0.2-0.7 [facility] Comment on above: Performed By: #### L IVER #### [facility] [address] [place] [address] Bilirubin Indirect 1.9 mg/dL Critically high 0.0-0.6 [facility] Comment on above: Performed By: #### L IVER #### [facility] [address] [place] [address] Bilirubin.indirect [Mass/Vol] 0.3 mg/dL Normal 0.0-0.4 [facility] Comment on above: Performed By: #### L IVER #### [facility] [address] [place] [address] Protein [Mass/Vol] 6.5 g/dL Normal 6.3-8.0 [facility] Comment on above: Performed By: #### L IVER #### [facility] [address] [place] [address] Prothrombin Timeon 1 INR Coag (PPP) [Relative time] 2.4 {INR} Normal [facility] Comment on above: Performed By: #### P T #### [facility] [address] [place] [address] PT Coag (PPP) [Time] 25.6 s Critically high 12.3-14.9 [facility] Comment on above: Performed By: #### P T #### [facility] [address] [place] [address] Vitamin B12 and Folateon Cobalamin (Vitamin B12) [Mass/Vol] 1341 pg/mL Critically high 232-1245 [facility] Comment on above: Performed By: #### B 12FO #### [facility] [address] [place] [address] Folate 14.7 ng/mL Normal 7.3-26.1 [facility] Comment on above: Result Comment: As o f 16, the methodology has changed. Results from this methodology should not be compared with results from previous methodology. Performed By: #### B 12FO #### [facility] [address] [place] [address] Vitamin Don 01-30-2021 Vitamin D 20.8 ng/mL Low 30.0-100.0 [facility] Comment on above: Result Comment: (20- 30 ng/mL) Insufficiency This assay accurately quantifies the sum of vitamin D3, 25-Hydroxy and vitamin D2, 25-Hyroxy. Performed By: #### V ITD #### [facility] [address] [place] [address] Basic metabolic 2000 panelon 11-06-2020 Anion gap [Moles/Vol] 12 mmol/L Normal 9-18 [facility] Comment on above: Order Comment: Speci men Type: BLOOD SPECIMEN Performed By: #### 2 4321-2 ####[facility] [id number] [place] [address] Calcium [Mass/Vol] 9.8 mg/dL Normal 8.5-10.2 [facility] Comment on above: Order Comment: Speci men Type: BLOOD SPECIMEN Performed By: #### 2 4321-2 ####[facility] [id number] [place] [address] Chloride [Moles/Vol] 103 mmol/L Normal 97-105 [facility] Comment on above: Order Comment: Speci men Type: BLOOD SPECIMEN Performed By: #### 2 4321-2 ####[facility]ORYCL[facility] [id number] [place] [address] CO2 [Moles/Vol] 22 mmol/L Normal 22-30 [facility] Comment on above: Order Comment: Speci men Type: BLOOD SPECIMEN Performed By: #### 2 4321-2 ####[facility] [id number] [place] [address] Creatinine [Mass/Vol] 0.96 mg/dL Normal 0.58-0.96 [facility] Comment on above: Order Comment: Speci men Type: BLOOD SPECIMEN Performed By: #### 2 4321-2 ####[facility] [id number] [place] [address] GFR/1.73 sq M.predicted MDRD (S/P/Bld) [Vol rate/Area] mL/min/{1.73_m2} Normal [facility] Comment on above: Order Comment: Speci men Type: BLOOD SPECIMEN Result Comment: >60e GFR (Estimated GFR) Units of measure: mL/min/1.73 meters squaredeGFR is derived from the reexpressed MDRD Study equation using the following parameters: serum creatinine, age, gender and race. The creatinine assay has been calibrated to be traceable to IDMS. An eGFR <60 mL/min/1.73m2 for >3 months is consistent with chronic kidney disease. Refer to KDOQI guidelines for clinical interpretation. In patients with unstable renal function, e.g. those with acute kidney injury, the eGFR may not accurately reflect actual GFR. Performed By: #### 2 4321-2 ####[facility]ORY[facility]IA [id number] [place] [address] Glucose [Mass/Vol] 94 mg/dL Normal 74-99 [facility] Comment on above: Order Comment: Speci men Type: BLOOD SPECIMEN Result Comment: The [place] [employer] (ADA) provides guidance for cutoff values for fasting glucose and random glucose. The ADA defines fasting as no caloric intake for at least 8 hours. Fasting plasma glucose results between 100 to 125 mg/dL indicate increased risk for diabetes (prediabetes).Fasting plasma glucose results greater than or equal to 126 mg/dL meet the criteria for diagnosis of diabetes. In the absence of unequivocal hyperglycemia, results should be confirmed by repeat testing. In a patient with classic symptoms of hyperglycemia or hyperglycemic crisis, random plasma glucose results greater than or equal to 200 mg/dL meet the criteria for diagnosis of diabetes.Reference: Standards of Medical Care in Diabetes 2016, [place] [employer]. Diabetes Care. 2016.39(Suppl 1). Performed By: #### 2 4321-2 ####[facility]ORYCLIA [id number] [place] [address] Potassium [Moles/Vol] 4.4 mmol/L Normal 3.7-5.1 [facility] Comment on above: Order Comment: Speci men Type: BLOOD SPECIMEN Performed By: #### 2 4321-2 ####[facility]ORYCLIA [id number] [place] [address] Sodium [Moles/Vol] 137 mmol/L Normal 136-144 [facility] Comment on above: Order Comment: Speci men Type: BLOOD SPECIMEN Performed By: #### 2 4321-2 ####[facility]ORYCLIA [id number] [place] [address] Urea nitrogen [Mass/Vol] 19 mg/dL Normal 7-21 [facility] Comment on above: Order Comment: Speci men Type: BLOOD SPECIMEN Performed By: #### 2 4321-2 ####[facility]ORYCLIA [id number] [place] [address] CASE MANAGEMon 11-06-2020 CASE MANAGEM Normal [facility] CASE MGT INIT ASSESon 2020 CASE MGT INIT ASSES Normal [facility] CBC panel Auto (Bld)on 11-06 Erythrocyte distribution width (RBC) [Ratio] 15.1 % High 11.5-15.0 [facility] Comment on above: Order Comment: Speci men Type: BLOOD SPECIMEN Performed By: #### 5 8410-2 ####[facility]IA [id number] [place] [address] Hematocrit (Bld) [Volume fraction] 26.8 % Low 36.0-46.0 [facility] Comment on above: Order Comment: Speci men Type: BLOOD SPECIMEN Performed By: #### 5 8410-2 ####[facility]ORYCLIA [id number] [place] [address] Hemoglobin (Bld) [Mass/Vol] 8.9 g/dL Low 11.5-15.5 [facility] Comment on above: Order Comment: Speci men Type: BLOOD SPECIMEN Performed By: #### 5 8410-2 ####[facility]ORYCLIA [id number] [place] [address] MCH (RBC) [Entitic mass] 32.6 pg Normal 26.0-34.0 [facility] Comment on above: Order Comment: Speci men Type: BLOOD SPECIMEN Performed By: #### 5 8410-2 ####[facility]ORYCLIA [id number] [place] [address] MCHC (RBC) [Mass/Vol] 33.2 g/dL Normal 30.5-36.0 [facility] Comment on above: Order Comment: Speci men Type: BLOOD SPECIMEN Performed By: #### 5 8410-2 ####[facility]ORYCLIA [id number] [place] [address] MCV (RBC) [Entitic vol] 98.2 fL Normal 80.0-100.0 [facility] Comment on above: Order Comment: Speci men Type: BLOOD SPECIMEN Performed By: #### 5 8410-2 ####[facility]ORYCLIA [id number] [place] [address] Nucleated RBC (Bld) [#/Vol] 10*3/uL Normal <0.01 [facility] Comment on above: Order Comment: Speci men Type: BLOOD SPECIMEN Performed By: #### 5 8410-2 ####[facility]ORYCLIA [id number] [place] [address] Platelet mean volume (Bld) [Entitic vol] 9.5 fL Normal 9.0-12.7 [facility] Comment on above: Order Comment: Speci men Type: BLOOD SPECIMEN Performed By: #### 5 8410-2 ####[facility]ORYCLIA [id number] [place] [address] Platelets (Bld) [#/Vol] 352 10*3/uL Normal 150-400 [facility] Comment on above: Order Comment: Speci men Type: BLOOD SPECIMEN Performed By: #### 5 8410-2 ####[facility]ORYCLIA [id number] [place] [address] RBC (Bld) [#/Vol] 2.73 10*6/uL Low 3.90-5.20 [facility] Comment on above: Order Comment: Speci men Type: BLOOD SPECIMEN Performed By: #### 5 8410-2 ####[facility]ORYCLIA [id number] [place] [address] WBC (Bld) [#/Vol] 7.51 10*3/uL Normal 3.70-11.00 [facility] Comment on above: Order Comment: Speci men Type: BLOOD SPECIMEN Performed By: #### 5 8410-2 ####[facility]ORYCLIA [id number] [place] [address] CNDSon 11-06-2020 CNDS Normal [facility] CONSULT PROGon 11-06-2020 CONSULT PROG Normal [facility] NURSING PROGon 11-06-2020 NURSING PROG Normal [facility] NUTRITIONon 11-06-2020 NUTRITION Normal [facility] PT panel Coag (PPP)on 2020 INR Coag (PPP) [Relative time] 2.6 {INR} High 0.9-1.3 [facility] Comment on above: Order Comment: Speci men Type: BLOOD SPECIMEN Result Comment: Nicolasa min K Antagonist (VKA) Therapeutic Range: INR 2 to 3 (Target INR of 2.5)Note: For patients treated with VKA drugs, such as warfarin, the [place] [employer] 2012 Guideline recommends a therapeutic INR range of 2 to 3 (target INR of 2.5). This recommendation includes high-risk patients with antiphospholipid syndrome with previous arterial or venous thromboembolism, current-generation mechanical or bioprosthetic aortic heart valve replacement.Note: Patients with mechanical aortic valve replacement and additional risk factors for thromboembolic events (atrial fibrillation, previous thromboembolism, LV dysfunction, hypercoagulable conditions) or an older generation mechanical AVR (i.e., ball in-Cage) or any mechanical MVR should have a INR therapeutic range of 2.5 to 3.5 (target INR of 3).Teresa FRYE, et al. Chest 2012, 141:7S-47SNishlinda RA, et al. JAC 2017, 70: 252-289 Performed By: #### 3 4528-0, 00681-5 ####[facility] LABORATORYCLIA [id number] [place] [address] PT Coag (PPP) [Time] 25.7 s High 9.7-13.0 [facility] Comment on above: Order Comment: Speci men Type: BLOOD SPECIMEN Performed By: #### 3 4528-0, 22542-8 ####[facility] LABORATORYCLIA [id number] [place] [address] aPTT PPPon 11-06-2020 aPTT Coag (PPP) [Time] 36.2 s High 23.0-32.4 [facility] Comment on above: Order Comment: Speci men Type: BLOOD SPECIMEN Performed By: #### 3 4528-0, 71237-9 ####[facility] LABORATORYCLIA [id number] [place] [address] 2019 CORONAVIRUSon SARS-CoV-2 (COVID-19) RNA ANGELINE+probe Ql (Unsp spec) Normal [facility] Comment on above: Performed By: #### C OVID ####[facility] REFERENCE LABCLIA [id number] [place] [address] CBC panel Auto (Bld)on 11-05 Erythrocyte distribution width (RBC) [Ratio] 15.2 % High 11.5-15.0 [facility] Comment on above: Order Comment: Speci men Type: BLOOD SPECIMEN Performed By: #### 5 8410-2 ####[facility] LABORATORYCLIA [id number] [place] [address] Hematocrit (Bld) [Volume fraction] 27.2 % Low 36.0-46.0 [facility] Comment on above: Order Comment: Speci men Type: BLOOD SPECIMEN Performed By: #### 5 8410-2 ####[facility] LABORATORYCLIA [id number] [place] [address] Hemoglobin (Bld) [Mass/Vol] 8.8 g/dL Low 11.5-15.5 [facility] Comment on above: Order Comment: Speci men Type: BLOOD SPECIMEN Performed By: #### 5 8410-2 ####[facility] LABORATORYCLIA [id number] [place] [address] MCH (RBC) [Entitic mass] 32.2 pg Normal 26.0-34.0 [facility] Comment on above: Order Comment: Speci men Type: BLOOD SPECIMEN Performed By: #### 5 8410-2 ####[facility] LABORATORYCLIA [id number] [place] [address] MCHC (RBC) [Mass/Vol] 32.4 g/dL Normal 30.5-36.0 [facility] Comment on above: Order Comment: Speci men Type: BLOOD SPECIMEN Performed By: #### 5 8410-2 ####[facility] LABORATORYCLIA [id number] [place] [address] MCV (RBC) [Entitic vol] 99.6 fL Normal 80.0-100.0 [facility] Comment on above: Order Comment: Speci men Type: BLOOD SPECIMEN Performed By: #### 5 8410-2 ####[facility] LABORATORYCLIA [id number] [place] [address] Nucleated RBC (Bld) [#/Vol] 10*3/uL Normal <0.01 [facility] Comment on above: Order Comment: Speci men Type: BLOOD SPECIMEN Performed By: #### 5 8410-2 ####[facility] LABORATORYCLIA [id number] [place] [address] Platelet mean volume (Bld) [Entitic vol] 9.5 fL Normal 9.0-12.7 [facility] Comment on above: Order Comment: Speci men Type: BLOOD SPECIMEN Performed By: #### 5 8410-2 ####[facility] LABORATORYCLIA [id number] [place] [address] Platelets (Bld) [#/Vol] 355 10*3/uL Normal 150-400 [facility] Comment on above: Order Comment: Speci men Type: BLOOD SPECIMEN Performed By: #### 5 8410-2 ####[facility]ORATORYCLIA [id number] [place] [address] RBC (Bld) [#/Vol] 2.73 10*6/uL Low 3.90-5.20 [facility] Comment on above: Order Comment: Speci men Type: BLOOD SPECIMEN Performed By: #### 5 8410-2 ####[facility] LABORATORYCLIA [id number] [place] [address] WBC (Bld) [#/Vol] 8.79 10*3/uL Normal 3.70-11.00 [facility] Comment on above: Order Comment: Speci men Type: BLOOD SPECIMEN Performed By: #### 5 8410-2 ####[facility] LABORATORYCLIA [id number] [place] [address] CONSULT PROGon 11-05-2020 CONSULT PROG Normal [facility] NURSING PROGon 11-05-2020 NURSING PROG Normal [facility] PT panel Coag (PPP)on 2020 INR Coag (PPP) [Relative time] 2.0 {INR} High 0.9-1.3 [facility] Comment on above: Order Comment: Speci men Type: BLOOD SPECIMEN Result Comment: Nicolasa min K Antagonist (VKA) Therapeutic Range: INR 2 to 3 (Target INR of 2.5)Note: For patients treated with VKA drugs, such as warfarin, the [place] [employer] 2012 Guideline recommends a therapeutic INR range of 2 to 3 (target INR of 2.5). This recommendation includes high-risk patients with antiphospholipid syndrome with previous arterial or venous thromboembolism, current-generation mechanical or bioprosthetic aortic heart valve replacement.Note: Patients with mechanical aortic valve replacement and additional risk factors for thromboembolic events (atrial fibrillation, previous thromboembolism, LV dysfunction, hypercoagulable conditions) or an older generation mechanical AVR (i.e., ball in-Cage) or any mechanical MVR should have a INR therapeutic range of 2.5 to 3.5 (target INR of 3).Teresa GH, et al. Chest 2012, 141:7S-47SNishlinda RA, et al. [facility] 2017, 70: 252-289 Performed By: #### 3 4528-0, 08852-2 ####[facility] LABORATORYCLIA [id number] [place] [address] PT Coag (PPP) [Time] 20.1 s High 9.7-13.0 [facility] Comment on above: Order Comment: Speci men Type: BLOOD SPECIMEN Performed By: #### 3 4528-0, 76466-3 ####[facility]ORATORYCLIA [id number] [place] [address] THERAPY NTon 11-05-2020 THERAPY NT Normal [facility] aPTT PPPon 11-05-2020 aPTT Coag (PPP) [Time] 58.7 s High 23.0-32.4 [facility] Comment on above: Order Comment: Speci men Type: BLOOD SPECIMEN Performed By: #### 3 4528-0, 80048-0 ####[facility] LABORATORYCLIA [id number] [place] [address] BLASTOMYCES ANTIGENon 2020 BLASTOMYCES AG Not detected Normal [facility] Comment on above: Order Comment: Speci men Type: BLOOD SPECIMEN Performed By: #### B LAS ####[facility] LABCLIA [id number] [place], [place] BLASTOMYCES AG INTERP Negative Normal [facility] Comment on above: Order Comment: Speci men Type: BLOOD SPECIMEN Result Comment: See detailed report in Epic Performed By: #### B LAS ####[facility] LABCLIA [id number] [place] Specimen type Nom (Spec) Urine Normal [facility] Comment on above: Order Comment: Speci men Type: BLOOD SPECIMEN Performed By: #### B LAS ####[facility]ILL[facility] REF LABCLIA [id number] [place], [place] Basic metabolic 2000 panelon 11-04-2020 Anion gap [Moles/Vol] 9 mmol/L Normal 9-18 [facility] Comment on above: Order Comment: Speci men Type: BLOOD SPECIMEN Performed By: #### 2 4321-2, ####[facility]ORATORYCLIA [id number] [place] [address] Calcium [Mass/Vol] 9.3 mg/dL Normal 8.5-10.2 [facility] Comment on above: Order Comment: Speci men Type: BLOOD SPECIMEN Performed By: #### 2 4321-2, ####[facility]ORATORYCLIA [id number] [place] [address] Chloride [Moles/Vol] 104 mmol/L Normal 97-105 [facility] Comment on above: Order Comment: Speci men Type: BLOOD SPECIMEN Performed By: #### 2 4321-2, ####[facility]ORATORYCLIA [id number] [place] [address] CO2 [Moles/Vol] 25 mmol/L Normal 22-30 [facility] Comment on above: Order Comment: Speci men Type: BLOOD SPECIMEN Performed By: #### 2 4321-2, ####[facility]ATORYCLIA [id number] [place] [address] Creatinine [Mass/Vol] 0.85 mg/dL Normal 0.58-0.96 [facility] Comment on above: Order Comment: Speci men Type: BLOOD SPECIMEN Performed By: #### 2 4321-2, 63059-3 ####[facility]ORATORYCLIA [id number] [place] [address] GFR/1.73 sq M.predicted MDRD (S/P/Bld) [Vol rate/Area] mL/min/{1.73_m2} Normal [facility] Comment on above: Order Comment: Speci men Type: BLOOD SPECIMEN Result Comment: >60e GFR (Estimated GFR) Units of measure: mL/min/1.73 meters squaredeGFR is derived from the reexpressed MDRD Study equation using the following parameters: serum creatinine, age, gender and race. The creatinine assay has been calibrated to be traceable to IDMS. An eGFR <60 mL/min/1.73m2 for >3 months is consistent with chronic kidney disease. Refer to KDOQI guidelines for clinical interpretation. In patients with unstable renal function, e.g. those with acute kidney injury, the eGFR may not accurately reflect actual GFR. Performed By: #### 2 43208-08, ####[facility] [id number] [place] [address] Glucose [Mass/Vol] 95 mg/dL Normal 74-99 [facility] Comment on above: Order Comment: Speci men Type: BLOOD SPECIMEN Result Comment: The [place] [employer] (ADA) provides guidance for cutoff values for fasting glucose and random glucose. The ADA defines fasting as no caloric intake for at least 8 hours. Fasting plasma glucose results between 100 to 125 mg/dL indicate increased risk for diabetes (prediabetes).Fasting plasma glucose results greater than or equal to 126 mg/dL meet the criteria for diagnosis of diabetes. In the absence of unequivocal hyperglycemia, results should be confirmed by repeat testing. In a patient with classic symptoms of hyperglycemia or hyperglycemic crisis, random plasma glucose results greater than or equal to 200 mg/dL meet the criteria for diagnosis of diabetes.Reference: Standards of Medical Care in Diabetes 2016, [place] [employer]. Diabetes Care. 2016.39(Suppl 1). Performed By: #### 2 4321-2, ####[facility] LABORATORYCLIA [id number] [place] [address] Potassium [Moles/Vol] 4.8 mmol/L Normal 3.7-5.1 [facility] Comment on above: Order Comment: Speci men Type: BLOOD SPECIMEN Performed By: #### 2 4321-2, 29944-9 ####[facility]ORATORYCLIA [id number] [place] [address] Sodium [Moles/Vol] 138 mmol/L Normal 136-144 [facility] Comment on above: Order Comment: Speci men Type: BLOOD SPECIMEN Performed By: #### 2 4321-2, ####[facility]ORATORYCLIA [id number] [place] [address] Urea nitrogen [Mass/Vol] 12 mg/dL Normal 7-21 [facility] Comment on above: Order Comment: Speci men Type: BLOOD SPECIMEN Performed By: #### 2 4321-2, ####[facility]ORATORYCLIA [id number] [place] [address] CASE MANAGEMon 11-04-2020 CASE MANAGEM Normal [facility] CBC W Auto Differential pane l (Bld)on 11-04-2020 Basophils (Bld) [#/Vol] 0.05 10*3/uL Normal <0.11 [facility] Comment on above: Order Comment: Speci men Type: BLOOD SPECIMEN Performed By: #### 5 7021-8 ####[facility]ORATORYCLIA [id number] [place] [address] Basophils/100 WBC (Bld) 0.6 % Normal [facility] Comment on above: Order Comment: Speci men Type: BLOOD SPECIMEN Performed By: #### 5 7021-8 ####[facility]ORATORYCLIA [id number] [place] [address] Differential cell count method Nom (Bld) Auto Normal [facility] Comment on above: Order Comment: Speci men Type: BLOOD SPECIMEN Performed By: #### 5 7021-8 ####[facility]ORATORYCLIA [id number] [place] [address] Eosinophils (Bld) [#/Vol] 0.40 10*3/uL Normal <0.46 [facility] Comment on above: Order Comment: Speci men Type: BLOOD SPECIMEN Performed By: #### 5 7021-8 ####[facility]ORATORYCLIA [id number] [place] [address] Eosinophils/100 WBC (Bld) 5.0 % Normal [facility] Comment on above: Order Comment: Speci men Type: BLOOD SPECIMEN Performed By: #### 5 7021-8 ####[facility]ATORYCLIA [id number] [place] [address] Erythrocyte distribution width (RBC) [Ratio] 14.6 % Normal 11.5-15.0 [facility] Comment on above: Order Comment: Speci men Type: BLOOD SPECIMEN Performed By: #### 5 7021-8 ####[facility]ORATORYCLIA [id number] [place] [address] Hematocrit (Bld) [Volume fraction] 25.6 % Low 36.0-46.0 [facility] Comment on above: Order Comment: Speci men Type: BLOOD SPECIMEN Performed By: #### 5 7021-8 ####[facility]ORATORYCLIA [id number] [place] [address] Hemoglobin (Bld) [Mass/Vol] 8.4 g/dL Low 11.5-15.5 [facility] Comment on above: Order Comment: Speci men Type: BLOOD SPECIMEN Performed By: #### 5 7021-8 ####[facility]ATORYCLIA [id number] [place] [address] IMMATURE GRAN % 1.0 % Normal [facility] Comment on above: Order Comment: Speci men Type: BLOOD SPECIMEN Performed By: #### 5 7021-8 ####[facility]ATORYCLIA [id number] [place] [address] IMMATURE GRAN ABS 0.08 k/uL Normal <0.10 [facility] Comment on above: Order Comment: Speci men Type: BLOOD SPECIMEN Performed By: #### 5 7021-8 ####[facility]ATORYCLIA [id number] [place] [address] Lymphocytes (Bld) [#/Vol] 1.87 10*3/uL Normal 1.00-4.00 [facility] Comment on above: Order Comment: Speci men Type: BLOOD SPECIMEN Performed By: #### 5 7021-8 ####[facility]ORATORYCLIA [id number] [place] [address] Lymphocytes/100 WBC (Bld) 23.2 % Normal [facility] Comment on above: Order Comment: Speci men Type: BLOOD SPECIMEN Performed By: #### 5 7021-8 ####[facility]ORATORYCLIA [id number] [place] [address] MCH (RBC) [Entitic mass] 32.3 pg Normal 26.0-34.0 [facility] Comment on above: Order Comment: Speci men Type: BLOOD SPECIMEN Performed By: #### 5 7021-8 ####[facility] LABORATORYCLIA [id number] [place] [address] MCHC (RBC) [Mass/Vol] 32.8 g/dL Normal 30.5-36.0 [facility] Comment on above: Order Comment: Speci men Type: BLOOD SPECIMEN Performed By: #### 5 7021-8 ####[facility]ORATORYCLIA [id number] [place] [address] MCV (RBC) [Entitic vol] 98.5 fL Normal 80.0-100.0 [facility] Comment on above: Order Comment: Speci men Type: BLOOD SPECIMEN Performed By: #### 5 7021-8 ####[facility]ORATORYCLIA [id number] [place] [address] Monocytes (Bld) [#/Vol] 0.54 10*3/uL Normal <0.87 [facility] Comment on above: Order Comment: Speci men Type: BLOOD SPECIMEN Performed By: #### 5 7021-8 ####[facility]ORATORYCLIA [id number] [place] [address] Monocytes/100 WBC (Bld) 6.7 % Normal [facility] Comment on above: Order Comment: Speci men Type: BLOOD SPECIMEN Performed By: #### 5 7021-8 ####[facility]ATORYCLIA [id number] [place] [address] Neutrophils (Bld) [#/Vol] 5.11 10*3/uL Normal 1.45-7.50 [facility] Comment on above: Order Comment: Speci men Type: BLOOD SPECIMEN Performed By: #### 5 7021-8 ####[facility]ATORYCLIA [id number] [place] [address] Neutrophils/100 WBC (Bld) 63.5 % Normal [facility] Comment on above: Order Comment: Speci men Type: BLOOD SPECIMEN Performed By: #### 5 7021-8 ####[facility]ATORYCLIA [id number] [place] [address] Nucleated RBC (Bld) [#/Vol] 10*3/uL Normal <0.01 [facility] Comment on above: Order Comment: Speci men Type: BLOOD SPECIMEN Performed By: #### 5 7021-8 ####[facility]ATORYCLIA [id number] [place] [address] Nucleated RBC/100 WBC (Bld) [Ratio] 0.0 /100 WBC Normal 0.0 [facility] Comment on above: Order Comment: Speci men Type: BLOOD SPECIMEN Performed By: #### 5 7021-8 ####[facility]ATORYCLIA [id number] [place] [address] Platelet mean volume (Bld) [Entitic vol] 9.3 fL Normal 9.0-12.7 [facility] Comment on above: Order Comment: Speci men Type: BLOOD SPECIMEN Performed By: #### 5 7021-8 ####[facility]ATORYCLIA [id number] [place] [address] Platelets (Bld) [#/Vol] 343 10*3/uL Normal 150-400 [facility] Comment on above: Order Comment: Speci men Type: BLOOD SPECIMEN Performed By: #### 5 7021-8 ####[facility]ORATORYCLIA [id number] [place] [address] RBC (Bld) [#/Vol] 2.60 10*6/uL Low 3.90-5.20 [facility] Comment on above: Order Comment: Speci men Type: BLOOD SPECIMEN Performed By: #### 5 7021-8 ####[facility]ORATORYCLIA [id number] [place] [address] WBC (Bld) [#/Vol] 8.05 10*3/uL Normal 3.70-11.00 [facility] Comment on above: Order Comment: Speci men Type: BLOOD SPECIMEN Performed By: #### 5 7021-8 ####[facility]ORATORYCLIA [id number] [place] [address] HEMATOCRIT (HCT)on 1 Hematocrit (Bld) [Volume fraction] 27.0 % Low 36.0-46.0 [facility] Comment on above: Order Comment: Speci men Type: BLOOD SPECIMEN Performed By: #### H CT, HGB ####[facility]ORATORYCLIA [id number] [place] [address] HEMOGLOBIN (HGB)on 1 Hemoglobin (Bld) [Mass/Vol] 8.8 g/dL Low 11.5-15.5 [facility] Comment on above: Order Comment: Speci men Type: BLOOD SPECIMEN Performed By: #### H CT, HGB ####[facility] LABORATORYCLIA [id number] [place] [address] Magnesium SerPl-mCncon 11-04 Magnesium [Mass/Vol] 1.7 mg/dL Normal 1.7-2.3 [facility] Comment on above: Order Comment: Speci men Type: BLOOD SPECIMEN Performed By: #### 2 4321-2, 98666-6 ####[facility] LABORATORYCLIA [id number] [place] [address] PT panel Coag (PPP)on 2020 INR Coag (PPP) [Relative time] 1.6 {INR} High 0.9-1.3 [facility] Comment on above: Order Comment: Speci men Type: BLOOD SPECIMEN Result Comment: Nicolasa min K Antagonist (VKA) Therapeutic Range: INR 2 to 3 (Target INR of 2.5)Note: For patients treated with VKA drugs, such as warfarin, the [place] [employer] 2012 Guideline recommends a therapeutic INR range of 2 to 3 (target INR of 2.5). This recommendation includes high-risk patients with antiphospholipid syndrome with previous arterial or venous thromboembolism, current-generation mechanical or bioprosthetic aortic heart valve replacement.Note: Patients with mechanical aortic valve replacement and additional risk factors for thromboembolic events (atrial fibrillation, previous thromboembolism, LV dysfunction, hypercoagulable conditions) or an older generation mechanical AVR (i.e., ball in-Cage) or any mechanical MVR should have a INR therapeutic range of 2.5 to 3.5 (target INR of 3).Teresa FRYE, et al. Chest 2012, 141:7S-47SKunal RA, et al. [facility] 2017, 70: 252-289 Performed By: #### 3 4528-0, 90719-8 ####[facility] LABORATORYCLIA [id number] [place] [address] PT Coag (PPP) [Time] 16.6 s High 9.7-13.0 [facility] Comment on above: Order Comment: Speci men Type: BLOOD SPECIMEN Performed By: #### 3 4528-0, 50055-4 ####[facility]ORATORYCLIA [id number] [place] [address] THERAPY NTon 11-04-2020 THERAPY NT Normal [facility] aPTT PPPon 11-04-2020 aPTT Coag (PPP) [Time] 55.3 s High 23.0-32.4 [facility] Comment on above: Order Comment: Speci men Type: BLOOD SPECIMEN Performed By: #### 3 4528-0, 67086-1 ####[facility]ORATORYCLIA [id number] [place] [address] aPTT Coag (PPP) [Time] 52.4 s High 23.0-32.4 [facility] Comment on above: Order Comment: Speci men Type: BLOOD SPECIMEN Performed By: #### 1 4979-9 ####[facility]ATORYCLIA [id number] [place] [address] ALLIED HEALTHon 11-03-2020 ALLIED HEALTH Normal [facility] Basic metabolic 2000 panelon 11-03-2020 Anion gap [Moles/Vol] 11 mmol/L Normal 9-18 [facility] Comment on above: Order Comment: Speci men Type: BLOOD SPECIMEN Performed By: #### 2 4321-2, ####[facility]ATORYCLIA [id number] [place] [address] Calcium [Mass/Vol] 9.3 mg/dL Normal 8.5-10.2 [facility] Comment on above: Order Comment: Speci men Type: BLOOD SPECIMEN Performed By: #### 2 4321-2, ####[facility]ATORYCLIA [id number] [place] [address] Chloride [Moles/Vol] 102 mmol/L Normal 97-105 [facility] Comment on above: Order Comment: Speci men Type: BLOOD SPECIMEN Performed By: #### 2 4321-2, ####[facility]ATORYCLIA [id number] [place] [address] CO2 [Moles/Vol] 23 mmol/L Normal 22-30 [facility] Comment on above: Order Comment: Speci men Type: BLOOD SPECIMEN Performed By: #### 2 4321-2, ####[facility]ATORYCLIA [id number] [place] [address] Creatinine [Mass/Vol] 0.82 mg/dL Normal 0.58-0.96 [facility] Comment on above: Order Comment: Speci men Type: BLOOD SPECIMEN Performed By: #### 2 4321-2, ####[facility]ATORYCLIA [id number] [place] [address] GFR/1.73 sq M.predicted MDRD (S/P/Bld) [Vol rate/Area] mL/min/{1.73_m2} Normal [facility] Comment on above: Order Comment: Speci men Type: BLOOD SPECIMEN Result Comment: >60e GFR (Estimated GFR) Units of measure: mL/min/1.73 meters squaredeGFR is derived from the reexpressed MDRD Study equation using the following parameters: serum creatinine, age, gender and race. The creatinine assay has been calibrated to be traceable to IDMS. An eGFR <60 mL/min/1.73m2 for >3 months is consistent with chronic kidney disease. Refer to KDOQI guidelines for clinical interpretation. In patients with unstable renal function, e.g. those with acute kidney injury, the eGFR may not accurately reflect actual GFR. Performed By: #### 2 432-, ####[facility] LABORATORYCLIA [id number] [place] [address] Glucose [Mass/Vol] 101 mg/dL High 74-99 [facility] Comment on above: Order Comment: Speci men Type: BLOOD SPECIMEN Result Comment: The [place] [employer] (ADA) provides guidance for cutoff values for fasting glucose and random glucose. The ADA defines fasting as no caloric intake for at least 8 hours. Fasting plasma glucose results between 100 to 125 mg/dL indicate increased risk for diabetes (prediabetes).Fasting plasma glucose results greater than or equal to 126 mg/dL meet the criteria for diagnosis of diabetes. In the absence of unequivocal hyperglycemia, results should be confirmed by repeat testing. In a patient with classic symptoms of hyperglycemia or hyperglycemic crisis, random plasma glucose results greater than or equal to 200 mg/dL meet the criteria for diagnosis of diabetes.Reference: Standards of Medical Care in Diabetes 2016, [place] [employer]. Diabetes Care. 2016.39(Suppl 1). Performed By: #### 2 432-, ####[facility]ORATORYCLIA [id number] [place] [address] Potassium [Moles/Vol] 4.4 mmol/L Normal 3.7-5.1 [facility] Comment on above: Order Comment: [facility] Type: BLOOD SPECIMEN Performed By: #### 2 43208-08, ####[facility]ORATORYCLIA [id number] [place] [address] Sodium [Moles/Vol] 136 mmol/L Normal 136-144 [facility] Comment on above: Order Comment: Speci men Type: BLOOD SPECIMEN Performed By: #### 2 4321-2, ####[facility]ATORYCLIA [id number] [place] [address] Urea nitrogen [Mass/Vol] 9 mg/dL Normal 7-21 [facility] Comment on above: Order Comment: Speci men Type: BLOOD SPECIMEN Performed By: #### 2 4321-2, ####[facility]ATORYCLIA [id number] [place] [address] CBC W Auto Differential pane l (Bld)on 11-03-2020 Basophils (Bld) [#/Vol] 0.08 10*3/uL Normal <0.11 [facility] Comment on above: Order Comment: Speci men Type: BLOOD SPECIMEN Performed By: #### 5 7021-8 ####[facility]ORYCLIA [id number] [place] [address] Basophils/100 WBC (Bld) 0.9 % Normal [facility] Comment on above: Order Comment: Speci men Type: BLOOD SPECIMEN Performed By: #### 5 7021-8 ####[facility]ATORYCLIA [id number] [place] [address] Differential cell count method Nom (Bld) Auto Normal [facility] Comment on above: Order Comment: Speci men Type: BLOOD SPECIMEN Performed By: #### 5 7021-8 ####[facility]ATORYCLIA [id number] [place] [address] Eosinophils (Bld) [#/Vol] 0.50 10*3/uL High <0.46 [facility] Comment on above: Order Comment: Speci men Type: BLOOD SPECIMEN Performed By: #### 5 7021-8 ####[facility]ATORYCLIA [id number] [place] [address] Eosinophils/100 WBC (Bld) 5.4 % Normal [facility] Comment on above: Order Comment: Speci men Type: BLOOD SPECIMEN Performed By: #### 5 7021-8 ####[facility]ATORYCLIA [id number] [place] [address] Erythrocyte distribution width (RBC) [Ratio] 14.4 % Normal 11.5-15.0 [facility] Comment on above: Order Comment: Speci men Type: BLOOD SPECIMEN Performed By: #### 5 7021-8 ####[facility]ORYCLIA [id number] [place] [address] Hematocrit (Bld) [Volume fraction] 28.1 % Low 36.0-46.0 [facility] Comment on above: Order Comment: Speci men Type: BLOOD SPECIMEN Performed By: #### 5 7021-8 ####[facility]ATORYCLIA [id number] [place] [address] Hemoglobin (Bld) [Mass/Vol] 8.9 g/dL Low 11.5-15.5 [facility] Comment on above: Order Comment: Speci men Type: BLOOD SPECIMEN Performed By: #### 5 7021-8 ####[facility]ORATORYCLIA [id number] [place] [address] IMMATURE GRAN % 0.8 % Normal [facility] Comment on above: Order Comment: Speci men Type: BLOOD SPECIMEN Performed By: #### 5 7021-8 ####[facility]ORYCLIA [id number] [place] [address] IMMATURE GRAN ABS 0.07 k/uL Normal <0.10 [facility] Comment on above: Order Comment: Speci men Type: BLOOD SPECIMEN Performed By: #### 5 7021-8 ####[facility]ORYCLIA [id number] [place] [address] Lymphocytes (Bld) [#/Vol] 2.35 10*3/uL Normal 1.00-4.00 [facility] Comment on above: Order Comment: Speci men Type: BLOOD SPECIMEN Performed By: #### 5 7021-8 ####[facility]ORYCLIA [id number] [place] [address] Lymphocytes/100 WBC (Bld) 25.3 % Normal [facility] Comment on above: Order Comment: Speci men Type: BLOOD SPECIMEN Performed By: #### 5 7021-8 ####[facility] LABORATORYCLIA [id number] [place] [address] MCH (RBC) [Entitic mass] 32.0 pg Normal 26.0-34.0 [facility] Comment on above: Order Comment: Speci men Type: BLOOD SPECIMEN Performed By: #### 5 7021-8 ####[facility]ORATORYCLIA [id number] [place] [address] MCHC (RBC) [Mass/Vol] 31.7 g/dL Normal 30.5-36.0 [facility] Comment on above: Order Comment: Speci men Type: BLOOD SPECIMEN Performed By: #### 5 7021-8 ####[facility] LABORATORYCLIA [id number] [place] [address] MCV (RBC) [Entitic vol] 101.1 fL High 80.0-100.0 [facility] Comment on above: Order Comment: Speci men Type: BLOOD SPECIMEN Performed By: #### 5 7021-8 ####[facility] LABORATORYCLIA [id number] [place] [address] Monocytes (Bld) [#/Vol] 0.58 10*3/uL Normal <0.87 [facility] Comment on above: Order Comment: Speci men Type: BLOOD SPECIMEN Performed By: #### 5 7021-8 ####[facility]ORATORYCLIA [id number] [place] [address] Monocytes/100 WBC (Bld) 6.3 % Normal [facility] Comment on above: Order Comment: Speci men Type: BLOOD SPECIMEN Performed By: #### 5 7021-8 ####[facility] LABORATORYCLIA [id number] [place] [address] Neutrophils (Bld) [#/Vol] 5.70 10*3/uL Normal 1.45-7.50 [facility] Comment on above: Order Comment: Speci men Type: BLOOD SPECIMEN Performed By: #### 5 7021-8 ####[facility]ORATORYCLIA [id number] [place] [address] Neutrophils/100 WBC (Bld) 61.3 % Normal [facility] Comment on above: Order Comment: Speci men Type: BLOOD SPECIMEN Performed By: #### 5 7021-8 ####[facility]ORATORYCLIA [id number] [place] [address] Nucleated RBC (Bld) [#/Vol] 10*3/uL Normal <0.01 [facility] Comment on above: Order Comment: Speci men Type: BLOOD SPECIMEN Performed By: #### 5 7021-8 ####[facility]ORATORYCLIA [id number] [place] [address] Nucleated RBC/100 WBC (Bld) [Ratio] 0.0 /100 WBC Normal 0.0 [facility] Comment on above: Order Comment: Speci men Type: BLOOD SPECIMEN Performed By: #### 5 7021-8 ####[facility]ORATORYCLIA [id number] [place] [address] Platelet mean volume (Bld) [Entitic vol] 9.5 fL Normal 9.0-12.7 [facility] Comment on above: Order Comment: Speci men Type: BLOOD SPECIMEN Performed By: #### 5 7021-8 ####[facility]ORATORYCLIA [id number] [place] [address] Platelets (Bld) [#/Vol] 345 10*3/uL Normal 150-400 [facility] Comment on above: Order Comment: Speci men Type: BLOOD SPECIMEN Performed By: #### 5 7021-8 ####[facility]ORYCLIA [id number] [place] [address] RBC (Bld) [#/Vol] 2.78 10*6/uL Low 3.90-5.20 [facility] Comment on above: Order Comment: Speci men Type: BLOOD SPECIMEN Performed By: #### 5 7021-8 ####[facility]ORATORYCLIA [id number] [place] [address] WBC (Bld) [#/Vol] 9.28 10*3/uL Normal 3.70-11.00 [facility] Comment on above: Order Comment: Speci men Type: BLOOD SPECIMEN Performed By: #### 5 7021-8 ####[facility]ORATORYCLIA [id number] [place] [address] Magnesium SerPl-mCncon 11-03 Magnesium [Mass/Vol] 1.7 mg/dL Normal 1.7-2.3 [facility] Comment on above: Order Comment: Speci men Type: BLOOD SPECIMEN Performed By: #### 2 4321-2, 88875-7 ####[facility]ORATORYCLIA [id number] [place] [address] PT panel Coag (PPP)on 2020 INR Coag (PPP) [Relative time] 1.3 {INR} Normal 0.9-1.3 [facility] Comment on above: Order Comment: Speci men Type: BLOOD SPECIMEN Result Comment: Nicolasa min K Antagonist (VKA) Therapeutic Range: INR 2 to 3 (Target INR of 2.5)Note: For patients treated with VKA drugs, such as warfarin, the [place] [employer] 2012 Guideline recommends a therapeutic INR range of 2 to 3 (target INR of 2.5). This recommendation includes high-risk patients with antiphospholipid syndrome with previous arterial or venous thromboembolism, current-generation mechanical or bioprosthetic aortic heart valve replacement.Note: Patients with mechanical aortic valve replacement and additional risk factors for thromboembolic events (atrial fibrillation, previous thromboembolism, LV dysfunction, hypercoagulable conditions) or an older generation mechanical AVR (i.e., ball in-Cage) or any mechanical MVR should have a INR therapeutic range of 2.5 to 3.5 (target INR of 3).Teresa GH, et al. Chest 2012, 141:7S-47SKunal RA, et al. [facility] 2017, 70: 252-289 Performed By: #### 3 4528-0 ####[facility]ORATORYCLIA [id number] [place] [address] PT Coag (PPP) [Time] 13.2 s High 9.7-13.0 [facility] Comment on above: Order Comment: Speci men Type: BLOOD SPECIMEN Performed By: #### 3 4528-0 ####[facility]ORATORYCLIA [id number] [place] [address] THERAPY NTon 11-03-2020 THERAPY NT Normal [facility] aPTT PPPon 11-03-2020 aPTT Coag (PPP) [Time] 65.7 s High 23.0-32.4 [facility] Comment on above: Order Comment: Speci men Type: BLOOD SPECIMEN Performed By: #### 1 4979-9 ####[facility]ORATORYCLIA [id number] [place] [address] aPTT Coag (PPP) [Time] 34.9 s High 23.0-32.4 [facility] Comment on above: Order Comment: Speci men Type: BLOOD SPECIMEN Performed By: #### 1 4979-9 ####[facility]ORATORYCLIA [id number] [place] [address] aPTT Coag (PPP) [Time] 94.8 s High 23.0-32.4 [facility] Comment on above: Order Comment: Speci men Type: BLOOD SPECIMEN Performed By: #### 1 4979-9 ####[facility]ORATORYCLIA [id number] [place] [address] CASE MANAGEMon 11-02-2020 CASE MANAGEM Normal [facility] CBC W Auto Differential pane l (Bld)on 11-02-2020 Basophils (Bld) [#/Vol] 0.06 10*3/uL Normal <0.11 [facility] Comment on above: Order Comment: Speci men Type: BLOOD SPECIMEN Performed By: #### 5 7021-8 ####[facility]ORATORYCLIA [id number] [place] [address] Basophils/100 WBC (Bld) 0.7 % Normal [facility] Comment on above: Order Comment: Speci men Type: BLOOD SPECIMEN Performed By: #### 5 7021-8 ####[facility]ORYCLIA [id number] [place] [address] Differential cell count method Nom (Bld) Auto Normal [facility] Comment on above: Order Comment: Speci men Type: BLOOD SPECIMEN Performed By: #### 5 7021-8 ####[facility]ORYCLIA [id number] [place] [address] Eosinophils (Bld) [#/Vol] 0.55 10*3/uL High <0.46 [facility] Comment on above: Order Comment: Speci men Type: BLOOD SPECIMEN Performed By: #### 5 7021-8 ####[facility]ORYCLIA [id number] [place] [address] Eosinophils/100 WBC (Bld) 6.4 % Normal [facility] Comment on above: Order Comment: Speci men Type: BLOOD SPECIMEN Performed By: #### 5 7021-8 ####[facility]ORYCLIA [id number] [place] [address] Erythrocyte distribution width (RBC) [Ratio] 14.5 % Normal 11.5-15.0 [facility] Comment on above: Order Comment: Speci men Type: BLOOD SPECIMEN Performed By: #### 5 7021-8 ####[facility]ORYCLIA [id number] [place] [address] Hematocrit (Bld) [Volume fraction] 25.6 % Low 36.0-46.0 [facility] Comment on above: Order Comment: Speci men Type: BLOOD SPECIMEN Performed By: #### 5 7021-8 ####[facility]ORYCLIA [id number] [place] [address] Hemoglobin (Bld) [Mass/Vol] 8.2 g/dL Low 11.5-15.5 [facility] Comment on above: Order Comment: Speci men Type: BLOOD SPECIMEN Performed By: #### 5 7021-8 ####[facility]ORYCLIA [id number] [place] [address] IMMATURE GRAN % 0.8 % Normal [facility] Comment on above: Order Comment: Speci men Type: BLOOD SPECIMEN Performed By: #### 5 7021-8 ####[facility]ORYCLIA [id number] [place] [address] IMMATURE GRAN ABS 0.07 k/uL Normal <0.10 [facility] Comment on above: Order Comment: Speci men Type: BLOOD SPECIMEN Performed By: #### 5 7021-8 ####[facility]ORYCLIA [id number] [place] [address] Lymphocytes (Bld) [#/Vol] 2.55 10*3/uL Normal 1.00-4.00 [facility] Comment on above: Order Comment: Speci men Type: BLOOD SPECIMEN Performed By: #### 5 7021-8 ####[facility]ORATORYCLIA [id number] [place] [address] Lymphocytes/100 WBC (Bld) 29.5 % Normal [facility] Comment on above: Order Comment: Speci men Type: BLOOD SPECIMEN Performed By: #### 5 7021-8 ####[facility]ORATORYCLIA [id number] [place] [address] MCH (RBC) [Entitic mass] 32.2 pg Normal 26.0-34.0 [facility] Comment on above: Order Comment: Speci men Type: BLOOD SPECIMEN Performed By: #### 5 7021-8 ####[facility]ORYCLIA [id number] [place] [address] MCHC (RBC) [Mass/Vol] 32.0 g/dL Normal 30.5-36.0 [facility] Comment on above: Order Comment: Speci men Type: BLOOD SPECIMEN Performed By: #### 5 7021-8 ####[facility]ORYCLIA [id number] [place] [address] MCV (RBC) [Entitic vol] 100.4 fL High 80.0-100.0 [facility] Comment on above: Order Comment: Speci men Type: BLOOD SPECIMEN Performed By: #### 5 7021-8 ####[facility]ORYCLIA [id number] [place] [address] Monocytes (Bld) [#/Vol] 0.62 10*3/uL Normal <0.87 [facility] Comment on above: Order Comment: Speci men Type: BLOOD SPECIMEN Performed By: #### 5 7021-8 ####[facility]ORYCLIA [id number] [place] [address] Monocytes/100 WBC (Bld) 7.2 % Normal [facility] Comment on above: Order Comment: Speci men Type: BLOOD SPECIMEN Performed By: #### 5 7021-8 ####[facility]ORYCLIA [id number] [place] [address] Neutrophils (Bld) [#/Vol] 4.78 10*3/uL Normal 1.45-7.50 [facility] Comment on above: Order Comment: Speci men Type: BLOOD SPECIMEN Performed By: #### 5 7021-8 ####[facility]ORYCLIA [id number] [place] [address] Neutrophils/100 WBC (Bld) 55.4 % Normal [facility] Comment on above: Order Comment: Speci men Type: BLOOD SPECIMEN Performed By: #### 5 7021-8 ####[facility]ORYCLIA [id number] [place] [address] Nucleated RBC (Bld) [#/Vol] 10*3/uL Normal <0.01 [facility] Comment on above: Order Comment: Speci men Type: BLOOD SPECIMEN Performed By: #### 5 7021-8 ####[facility]ORYCLIA [id number] [place] [address] Nucleated RBC/100 WBC (Bld) [Ratio] 0.0 /100 WBC Normal 0.0 [facility] Comment on above: Order Comment: Speci men Type: BLOOD SPECIMEN Performed By: #### 5 7021-8 ####[facility]ORYCLIA [id number] [place] [address] Platelet mean volume (Bld) [Entitic vol] 9.7 fL Normal 9.0-12.7 [facility] Comment on above: Order Comment: Speci men Type: BLOOD SPECIMEN Performed By: #### 5 7021-8 ####[facility]ORATORYCLIA [id number] [place] [address] Platelets (Bld) [#/Vol] 325 10*3/uL Normal 150-400 [facility] Comment on above: Order Comment: Speci men Type: BLOOD SPECIMEN Performed By: #### 5 7021-8 ####[facility]ORATORYCLIA [id number] [place] [address] RBC (Bld) [#/Vol] 2.55 10*6/uL Low 3.90-5.20 [facility] Comment on above: Order Comment: Speci men Type: BLOOD SPECIMEN Performed By: #### 5 7021-8 ####[facility]ATORYCLIA [id number] [place] [address] WBC (Bld) [#/Vol] 8.63 10*3/uL Normal 3.70-11.00 [facility] Comment on above: Order Comment: Speci men Type: BLOOD SPECIMEN Performed By: #### 5 7021-8 ####[facility]ORATORYCLIA [id number] [place] [address] CONSULT PROGon 11-02-2020 CONSULT PROG Normal [facility] Comprehensive metabolic 2000 panelon 11-02-2020 Albumin [Mass/Vol] 3.5 g/dL Low 3.9-4.9 [facility] Comment on above: Order Comment: Speci men Type: BLOOD SPECIMEN Performed By: #### 1 9123-9, 66503-4 ####[facility]ORATORYCLIA [id number] [place] [address] ALP [Catalytic activity/Vol] 72 U/L Normal 34-123 [facility] Comment on above: Order Comment: Speci men Type: BLOOD SPECIMEN Performed By: #### 1 9123-9, 80539-6 ####[facility]ORATORYCLIA [id number] [place] [address] ALT With P-5'-P [Catalytic activity/Vol] 26 U/L Normal 7-38 [facility] Comment on above: Order Comment: Speci men Type: BLOOD SPECIMEN Performed By: #### 1 9123-9, ####[facility]ATORYCLIA [id number] [place] [address] Anion gap [Moles/Vol] 8 mmol/L Low 9-18 [facility] Comment on above: Order Comment: Speci men Type: BLOOD SPECIMEN Performed By: #### 1 9122-9, ####[facility]ORYCLIA [id number] [place] [address] AST With P-5'-P [Catalytic activity/Vol] 35 U/L Normal 13-35 [facility] Comment on above: Order Comment: Speci men Type: BLOOD SPECIMEN Performed By: #### 1 23-9, ####[facility]ORYCLIA [id number] [place] [address] Bilirubin [Mass/Vol] 0.9 mg/dL Normal 0.2-1.3 [facility] Comment on above: Order Comment: Speci men Type: BLOOD SPECIMEN Performed By: #### 1 23-9, ####[facility]ORYCLIA [id number] [place] [address] Calcium [Mass/Vol] 9.1 mg/dL Normal 8.5-10.2 [facility] Comment on above: Order Comment: Speci men Type: BLOOD SPECIMEN Performed By: #### 1 23-9, ####[facility]ORYCLIA [id number] [place] [address] Chloride [Moles/Vol] 105 mmol/L Normal 97-105 [facility] Comment on above: Order Comment: Speci men Type: BLOOD SPECIMEN Performed By: #### 1 9123-9, ####[facility]ORYCLIA [id number] [place] [address] CO2 [Moles/Vol] 24 mmol/L Normal 22-30 [facility] Comment on above: Order Comment: Speci men Type: BLOOD SPECIMEN Performed By: #### 1 9123-9, 90181-4 ####[facility]ORATORYCLIA [id number] [place] [address] Creatinine [Mass/Vol] 0.91 mg/dL Normal 0.58-0.96 [facility] Comment on above: Order Comment: Speci men Type: BLOOD SPECIMEN Performed By: #### 1 9123-9, 96298-3 ####[facility]ORATORYCLIA [id number] [place] [address] GFR/1.73 sq M.predicted MDRD (S/P/Bld) [Vol rate/Area] mL/min/{1.73_m2} Normal [facility] Comment on above: Order Comment: Speci men Type: BLOOD SPECIMEN Result Comment: >60e GFR (Estimated GFR) Units of measure: mL/min/1.73 meters squaredeGFR is derived from the reexpressed MDRD Study equation using the following parameters: serum creatinine, age, gender and race. The creatinine assay has been calibrated to be traceable to IDMS. An eGFR <60 mL/min/1.73m2 for >3 months is consistent with chronic kidney disease. Refer to KDOQI guidelines for clinical interpretation. In patients with unstable renal function, e.g. those with acute kidney injury, the eGFR may not accurately reflect actual GFR. Performed By: #### 1 9123-9, 79726-7 ####[facility]ORATORYCLIA [id number] [place] [address] Glucose [Mass/Vol] 92 mg/dL Normal 74-99 [facility] Comment on above: Order Comment: [facility] Type: BLOOD SPECIMEN Result Comment: The [place] [employer] (ADA) provides guidance for cutoff values for fasting glucose and random glucose. The ADA defines fasting as no caloric intake for at least 8 hours. Fasting plasma glucose results between 100 to 125 mg/dL indicate increased risk for diabetes (prediabetes).Fasting plasma glucose results greater than or equal to 126 mg/dL meet the criteria for diagnosis of diabetes. In the absence of unequivocal hyperglycemia, results should be confirmed by repeat testing. In a patient with classic symptoms of hyperglycemia or hyperglycemic crisis, random plasma glucose results greater than or equal to 200 mg/dL meet the criteria for diagnosis of diabetes.Reference: Standards of Medical Care in Diabetes 2016, [place] [employer]. Diabetes Care. 2016.39(Suppl 1). Performed By: #### 1 9122-9, 53339-9 ####[facility]ORATORYCLIA [id number] [place] [address] Potassium [Moles/Vol] 4.4 mmol/L Normal 3.7-5.1 [facility] Comment on above: Order Comment: Speci men Type: BLOOD SPECIMEN Performed By: #### 1 9123-04, 38235-7 ####[facility]ORATORYCLIA [id number] [place] [address] Protein [Mass/Vol] 6.0 g/dL Low 6.3-8.0 [facility] Comment on above: Order Comment: Speci men Type: BLOOD SPECIMEN Performed By: #### 1 9123-04, 12787-8 ####[facility]ORATORYCLIA [id number] [place] [address] Sodium [Moles/Vol] 137 mmol/L Normal 136-144 [facility] Comment on above: Order Comment: Speci men Type: BLOOD SPECIMEN Performed By: #### 1 9123-04, ####[facility]ORATORYCLIA [id number] [place] [address] Urea nitrogen [Mass/Vol] 10 mg/dL Normal 7-21 [facility] Comment on above: Order Comment: Speci men Type: BLOOD SPECIMEN Performed By: #### 1 9123-04, ####[facility]ORATORYCLIA [id number] [place] [address] Magnesium SerPl-mCncon 11-02 Magnesium [Mass/Vol] 1.7 mg/dL Normal 1.7-2.3 [facility] Comment on above: Order Comment: Speci men Type: BLOOD SPECIMEN Performed By: #### 1 9123-04, 81253-8 ####[facility]ORATORYCLIA [id number] [place] [address] NUTRITIONon 11-02-2020 NUTRITION Normal [facility] PT panel Coag (PPP)on 2020 INR Coag (PPP) [Relative time] 1.1 {INR} Normal 0.9-1.3 [facility] Comment on above: Order Comment: Speci men Type: BLOOD SPECIMEN Result Comment: Nicolasa min K Antagonist (VKA) Therapeutic Range: INR 2 to 3 (Target INR of 2.5)Note: For patients treated with VKA drugs, such as warfarin, the [place] [employer] 2012 Guideline recommends a therapeutic INR range of 2 to 3 (target INR of 2.5). This recommendation includes high-risk patients with antiphospholipid syndrome with previous arterial or venous thromboembolism, current-generation mechanical or bioprosthetic aortic heart valve replacement.Note: Patients with mechanical aortic valve replacement and additional risk factors for thromboembolic events (atrial fibrillation, previous thromboembolism, LV dysfunction, hypercoagulable conditions) or an older generation mechanical AVR (i.e., ball in-Cage) or any mechanical MVR should have a INR therapeutic range of 2.5 to 3.5 (target INR of 3).Teresa GH, et al. Chest 2012, 141:7S-47SNishimura RA, et al. [facility] 2017, 70: 252-289 Performed By: #### 3 4528-0 ####[facility]ORATORYCLIA [id number] [place] [address] PT Coag (PPP) [Time] 11.8 s Normal 9.7-13.0 [facility] Comment on above: Order Comment: Speci men Type: BLOOD SPECIMEN Performed By: #### 3 4528-0 ####[facility]ORATORYCLIA [id number] [place] [address] THERAPY NTon 11-02-2020 THERAPY NT Normal [facility] THERAPY NT Normal [facility] aPTT PPPon 11-02-2020 aPTT Coag (PPP) [Time] 36.7 s High 23.0-32.4 [facility] Comment on above: Order Comment: Speci men Type: BLOOD SPECIMEN Performed By: #### 1 4979-9 ####[facility]ATORYCLIA [id number] [place] [address] aPTT Coag (PPP) [Time] 119.3 s High 23.0-32.4 [facility] Comment on above: Order Comment: Speci men Type: BLOOD SPECIMEN Performed By: #### 1 4979-9 ####[facility]ORATORYCLIA [id number] [place] [address] aPTT Coag (PPP) [Time] 45.6 s High 23.0-32.4 [facility] Comment on above: Order Comment: Speci men Type: BLOOD SPECIMEN Performed By: #### 1 4979-9 ####[facility]ATORYCLIA [id number] [place] [address] Basic metabolic 2000 panelon 11-01-2020 Anion gap [Moles/Vol] 6 mmol/L Low 9-18 [facility] Comment on above: Order Comment: Speci men Type: BLOOD SPECIMEN Performed By: #### 2 4321-2 ####[facility]ORYCLIA [id number] [place] [address] Calcium [Mass/Vol] 8.6 mg/dL Normal 8.5-10.2 [facility] Comment on above: Order Comment: Speci men Type: BLOOD SPECIMEN Performed By: #### 2 4321-2 ####[facility]ORYCLIA [id number] [place] [address] Chloride [Moles/Vol] 107 mmol/L High 97-105 [facility] Comment on above: Order Comment: Speci men Type: BLOOD SPECIMEN Performed By: #### 2 4321-2 ####[facility] LABORATORYCLIA [id number] [place] [address] CO2 [Moles/Vol] 25 mmol/L Normal 22-30 [facility] Comment on above: Order Comment: Speci men Type: BLOOD SPECIMEN Performed By: #### 2 4321-2 ####[facility]ATORYCLIA [id number] [place] [address] Creatinine [Mass/Vol] 0.83 mg/dL Normal 0.58-0.96 [facility] Comment on above: Order Comment: Speci men Type: BLOOD SPECIMEN Performed By: #### 2 4321-2 ####[facility] LABORATORYCLIA [id number] [place] [address] GFR/1.73 sq M.predicted MDRD (S/P/Bld) [Vol rate/Area] mL/min/{1.73_m2} Normal [facility] Comment on above: Order Comment: Speci men Type: BLOOD SPECIMEN Result Comment: >60e GFR (Estimated GFR) Units of measure: mL/min/1.73 meters squaredeGFR is derived from the reexpressed MDRD Study equation using the following parameters: serum creatinine, age, gender and race. The creatinine assay has been calibrated to be traceable to IDMS. An eGFR <60 mL/min/1.73m2 for >3 months is consistent with chronic kidney disease. Refer to KDOQI guidelines for clinical interpretation. In patients with unstable renal function, e.g. those with acute kidney injury, the eGFR may not accurately reflect actual GFR. Performed By: #### 2 4321-2 ####[facility] [id number] [place] [address] Glucose [Mass/Vol] 93 mg/dL Normal 74-99 [facility] Comment on above: Order Comment: Speci [facility] Type: BLOOD SPECIMEN Result Comment: The [place] Diabetes Association (ADA) provides guidance for cutoff values for fasting glucose and random glucose. The ADA defines fasting as no caloric intake for at least 8 hours. Fasting plasma glucose results between 100 to 125 mg/dL indicate increased risk for diabetes (prediabetes).Fasting plasma glucose results greater than or equal to 126 mg/dL meet the criteria for diagnosis of diabetes. In the absence of unequivocal hyperglycemia, results should be confirmed by repeat testing. In a patient with classic symptoms of hyperglycemia or hyperglycemic crisis, random plasma glucose results greater than or equal to 200 mg/dL meet the criteria for diagnosis of diabetes.Reference: Standards of Medical Care in Diabetes 2016, [place] [employer]. Diabetes Care. 2016.39(Suppl 1). Performed By: #### 2 4321-2 ####[facility] LABORATORYCLIA [id number] [place] [address] Potassium [Moles/Vol] 4.3 mmol/L Normal 3.7-5.1 [facility] Comment on above: Order Comment: Speci men Type: BLOOD SPECIMEN Performed By: #### 2 4321-2 ####[facility] LABORATORYCLIA [id number] [place] [address] Sodium [Moles/Vol] 138 mmol/L Normal 136-144 [facility] Comment on above: Order Comment: Speci men Type: BLOOD SPECIMEN Performed By: #### 2 4321-2 ####[facility]ORATORYCLIA [id number] [place] [address] Urea nitrogen [Mass/Vol] 11 mg/dL Normal 7-21 [facility] Comment on above: Order Comment: Speci men Type: BLOOD SPECIMEN Performed By: #### 2 4321-2 ####[facility] LABORATORYCLIA [id number] [place] [address] CBC W Auto Differential pane l (Bld)on 11-01-2020 Basophils (Bld) [#/Vol] 0.06 10*3/uL Normal <0.11 [facility] Comment on above: Order Comment: Speci men Type: BLOOD SPECIMEN Performed By: #### 5 7021-8 ####[facility]ORATORYCLIA [id number] [place] [address] Basophils/100 WBC (Bld) 0.8 % Normal [facility] Comment on above: Order Comment: Speci men Type: BLOOD SPECIMEN Performed By: #### 5 7021-8 ####[facility]ORYCLIA [id number] [place] [address] Differential cell count method Nom (Bld) Auto Normal [facility] Comment on above: Order Comment: Speci men Type: BLOOD SPECIMEN Performed By: #### 5 7021-8 ####[facility]ORYCLIA [id number] [place] [address] Eosinophils (Bld) [#/Vol] 0.44 10*3/uL Normal <0.46 [facility] Comment on above: Order Comment: Speci men Type: BLOOD SPECIMEN Performed By: #### 5 7021-8 ####[facility]ORYCLIA [id number] [place] [address] Eosinophils/100 WBC (Bld) 6.0 % Normal [facility] Comment on above: Order Comment: Speci men Type: BLOOD SPECIMEN Performed By: #### 5 7021-8 ####[facility]ORATORYCLIA [id number] [place] [address] Erythrocyte distribution width (RBC) [Ratio] 14.4 % Normal 11.5-15.0 [facility] Comment on above: Order Comment: Speci men Type: BLOOD SPECIMEN Performed By: #### 5 7021-8 ####[facility]ORATORYCLIA [id number] [place] [address] Hematocrit (Bld) [Volume fraction] 24.5 % Low 36.0-46.0 [facility] Comment on above: Order Comment: Speci men Type: BLOOD SPECIMEN Performed By: #### 5 7021-8 ####[facility]ORYCLIA [id number] [place] [address] Hemoglobin (Bld) [Mass/Vol] 8.0 g/dL Low 11.5-15.5 [facility] Comment on above: Order Comment: Speci men Type: BLOOD SPECIMEN Performed By: #### 5 7021-8 ####[facility]ORYCLIA [id number] [place] [address] IMMATURE GRAN % 0.8 % Normal [facility] Comment on above: Order Comment: Speci men Type: BLOOD SPECIMEN Performed By: #### 5 7021-8 ####[facility]ORYCLIA [id number] [place] [address] IMMATURE GRAN ABS 0.06 k/uL Normal <0.10 [facility] Comment on above: Order Comment: Speci men Type: BLOOD SPECIMEN Performed By: #### 5 7021-8 ####[facility]ORYCLIA [id number] [place] [address] Lymphocytes (Bld) [#/Vol] 1.81 10*3/uL Normal 1.00-4.00 [facility] Comment on above: Order Comment: Speci men Type: BLOOD SPECIMEN Performed By: #### 5 7021-8 ####[facility]ORATORYCLIA [id number] [place] [address] Lymphocytes/100 WBC (Bld) 24.6 % Normal [facility] Comment on above: Order Comment: Speci men Type: BLOOD SPECIMEN Performed By: #### 5 7021-8 ####[facility]ORATORYCLIA [id number] [place] [address] MCH (RBC) [Entitic mass] 32.5 pg Normal 26.0-34.0 [facility] Comment on above: Order Comment: Speci men Type: BLOOD SPECIMEN Performed By: #### 5 7021-8 ####[facility]ORATORYCLIA [id number] [place] [address] MCHC (RBC) [Mass/Vol] 32.7 g/dL Normal 30.5-36.0 [facility] Comment on above: Order Comment: Speci men Type: BLOOD SPECIMEN Performed By: #### 5 7021-8 ####[facility]ATORYCLIA [id number] [place] [address] MCV (RBC) [Entitic vol] 99.6 fL Normal 80.0-100.0 [facility] Comment on above: Order Comment: Speci men Type: BLOOD SPECIMEN Performed By: #### 5 7021-8 ####[facility]ATORYCLIA [id number] [place] [address] Monocytes (Bld) [#/Vol] 0.48 10*3/uL Normal <0.87 [facility] Comment on above: Order Comment: Speci men Type: BLOOD SPECIMEN Performed By: #### 5 7021-8 ####[facility]ORATORYCLIA [id number] [place] [address] Monocytes/100 WBC (Bld) 6.5 % Normal [facility] Comment on above: Order Comment: Speci men Type: BLOOD SPECIMEN Performed By: #### 5 7021-8 ####[facility]ORYCLIA [id number] [place] [address] Neutrophils (Bld) [#/Vol] 4.51 10*3/uL Normal 1.45-7.50 [facility] Comment on above: Order Comment: Speci men Type: BLOOD SPECIMEN Performed By: #### 5 7021-8 ####[facility]ORYCLIA [id number] [place] [address] Neutrophils/100 WBC (Bld) 61.3 % Normal [facility] Comment on above: Order Comment: Speci men Type: BLOOD SPECIMEN Performed By: #### 5 7021-8 ####[facility]ORATORYCLIA [id number] [place] [address] Nucleated RBC (Bld) [#/Vol] 10*3/uL Normal <0.01 [facility] Comment on above: Order Comment: Speci men Type: BLOOD SPECIMEN Performed By: #### 5 7021-8 ####[facility]ORYCLIA [id number] [place] [address] Nucleated RBC/100 WBC (Bld) [Ratio] 0.0 /100 WBC Normal 0.0 [facility] Comment on above: Order Comment: Speci men Type: BLOOD SPECIMEN Performed By: #### 5 7021-8 ####[facility]ATORYCLIA [id number] [place] [address] Platelet mean volume (Bld) [Entitic vol] 9.7 fL Normal 9.0-12.7 [facility] Comment on above: Order Comment: Speci men Type: BLOOD SPECIMEN Performed By: #### 5 7021-8 ####[facility]ORYCLIA [id number] [place] [address] Platelets (Bld) [#/Vol] 271 10*3/uL Normal 150-400 [facility] Comment on above: Order Comment: Speci men Type: BLOOD SPECIMEN Performed By: #### 5 7021-8 ####[facility]ORYCLIA [id number] [place] [address] RBC (Bld) [#/Vol] 2.46 10*6/uL Low 3.90-5.20 [facility] Comment on above: Order Comment: Speci men Type: BLOOD SPECIMEN Performed By: #### 5 7021-8 ####[facility]ATORYCLIA [id number] [place] [address] WBC (Bld) [#/Vol] 7.36 10*3/uL Normal 3.70-11.00 [facility] Comment on above: Order Comment: Speci men Type: BLOOD SPECIMEN Performed By: #### 5 7021-8 ####[facility]ORATORYCLIA [id number] [place] [address] CONSULT PROGon 11-01-2020 CONSULT PROG Normal [facility] PT panel Coag (PPP)on 2020 INR Coag (PPP) [Relative time] 1.2 {INR} Normal 0.9-1.3 [facility] Comment on above: Order Comment: Speci men Type: BLOOD SPECIMEN Result Comment: Nicolasa min K Antagonist (VKA) Therapeutic Range: INR 2 to 3 (Target INR of 2.5)Note: For patients treated with VKA drugs, such as warfarin, the [place] [employer] 2012 Guideline recommends a therapeutic INR range of 2 to 3 (target INR of 2.5). This recommendation includes high-risk patients with antiphospholipid syndrome with previous arterial or venous thromboembolism, current-generation mechanical or bioprosthetic aortic heart valve replacement.Note: Patients with mechanical aortic valve replacement and additional risk factors for thromboembolic events (atrial fibrillation, previous thromboembolism, LV dysfunction, hypercoagulable conditions) or an older generation mechanical AVR (i.e., ball in-Cage) or any mechanical MVR should have a INR therapeutic range of 2.5 to 3.5 (target INR of 3).Teresa GH, et al. Chest 2012, 141:7S-47SNishimkarthik RA, et al. [facility] 2017, 70: 252-289 Performed By: #### 1 4979-9, 64300-4 ####[facility]ORATORYCLIA [id number] [place] [address] PT Coag (PPP) [Time] 12.2 s Normal 9.7-13.0 [facility] Comment on above: Order Comment: Speci men Type: BLOOD SPECIMEN Performed By: #### 1 4979-9, 09099-3 ####[facility]ATORYCLIA [id number] [place] [address] aPTT PPPon 11-01-2020 aPTT Coag (PPP) [Time] 58.1 s High 23.0-32.4 [facility] Comment on above: Order Comment: Speci men Type: BLOOD SPECIMEN Performed By: #### 1 4979-9, 81159-0 ####[facility]ORATORYCLIA [id number] [place] [address] CBC W Auto Differential pane l (Bld)on 10-31-2020 Basophils (Bld) [#/Vol] 0.07 10*3/uL Normal <0.11 [facility] Comment on above: Order Comment: Speci men Type: BLOOD SPECIMEN Performed By: #### 5 7021-8 ####[facility]ATORYCLIA [id number] [place] [address] Basophils/100 WBC (Bld) 0.8 % Normal [facility] Comment on above: Order Comment: Speci men Type: BLOOD SPECIMEN Performed By: #### 5 7021-8 ####[facility]ORATORYCLIA [id number] [place] [address] Differential cell count method Nom (Bld) Auto Normal [facility] Comment on above: Order Comment: Speci men Type: BLOOD SPECIMEN Performed By: #### 5 7021-8 ####[facility]ATORYCLIA [id number] [place] [address] Eosinophils (Bld) [#/Vol] 0.41 10*3/uL Normal <0.46 [facility] Comment on above: Order Comment: Speci men Type: BLOOD SPECIMEN Performed By: #### 5 7021-8 ####[facility]ORYCLIA [id number] [place] [address] Eosinophils/100 WBC (Bld) 4.7 % Normal [facility] Comment on above: Order Comment: Speci men Type: BLOOD SPECIMEN Performed By: #### 5 7021-8 ####[facility]ATORYCLIA [id number] [place] [address] Erythrocyte distribution width (RBC) [Ratio] 14.6 % Normal 11.5-15.0 [facility] Comment on above: Order Comment: Speci men Type: BLOOD SPECIMEN Performed By: #### 5 7021-8 ####[facility]ATORYCLIA [id number] [place] [address] Hematocrit (Bld) [Volume fraction] 24.6 % Low 36.0-46.0 [facility] Comment on above: Order Comment: Speci men Type: BLOOD SPECIMEN Performed By: #### 5 7021-8 ####[facility]ORYCLIA [id number] [place] [address] Hemoglobin (Bld) [Mass/Vol] 8.2 g/dL Low 11.5-15.5 [facility] Comment on above: Order Comment: Speci men Type: BLOOD SPECIMEN Performed By: #### 5 7021-8 ####[facility]ORYCLIA [id number] [place] [address] IMMATURE GRAN % 0.8 % Normal [facility] Comment on above: Order Comment: Speci men Type: BLOOD SPECIMEN Performed By: #### 5 7021-8 ####[facility]ORYCLIA [id number] [place] [address] IMMATURE GRAN ABS 0.07 k/uL Normal <0.10 [facility] Comment on above: Order Comment: Speci men Type: BLOOD SPECIMEN Performed By: #### 5 7021-8 ####[facility]ORYCLIA [id number] [place] [address] Lymphocytes (Bld) [#/Vol] 1.77 10*3/uL Normal 1.00-4.00 [facility] Comment on above: Order Comment: Speci men Type: BLOOD SPECIMEN Performed By: #### 5 7021-8 ####[facility]ATORYCLIA [id number] [place] [address] Lymphocytes/100 WBC (Bld) 20.1 % Normal [facility] Comment on above: Order Comment: Speci men Type: BLOOD SPECIMEN Performed By: #### 5 7021-8 ####[facility]ATORYCLIA [id number] [place] [address] MCH (RBC) [Entitic mass] 32.9 pg Normal 26.0-34.0 [facility] Comment on above: Order Comment: Speci men Type: BLOOD SPECIMEN Performed By: #### 5 7021-8 ####[facility]ATORYCLIA [id number] [place] [address] MCHC (RBC) [Mass/Vol] 33.3 g/dL Normal 30.5-36.0 [facility] Comment on above: Order Comment: Speci men Type: BLOOD SPECIMEN Performed By: #### 5 7021-8 ####[facility]ATORYCLIA [id number] [place] [address] MCV (RBC) [Entitic vol] 98.8 fL Normal 80.0-100.0 [facility] Comment on above: Order Comment: Speci men Type: BLOOD SPECIMEN Performed By: #### 5 7021-8 ####[facility]ATORYCLIA [id number] [place] [address] Monocytes (Bld) [#/Vol] 0.52 10*3/uL Normal <0.87 [facility] Comment on above: Order Comment: Speci men Type: BLOOD SPECIMEN Performed By: #### 5 7021-8 ####[facility]ORYCLIA [id number] [place] [address] Monocytes/100 WBC (Bld) 5.9 % Normal [facility] Comment on above: Order Comment: Speci men Type: BLOOD SPECIMEN Performed By: #### 5 7021-8 ####[facility]ORYCLIA [id number] [place] [address] Neutrophils (Bld) [#/Vol] 5.97 10*3/uL Normal 1.45-7.50 [facility] Comment on above: Order Comment: Speci men Type: BLOOD SPECIMEN Performed By: #### 5 7021-8 ####[facility]ATORYCLIA [id number] [place] [address] Neutrophils/100 WBC (Bld) 67.7 % Normal [facility] Comment on above: Order Comment: Speci men Type: BLOOD SPECIMEN Performed By: #### 5 7021-8 ####[facility]ATORYCLIA [id number] [place] [address] Nucleated RBC (Bld) [#/Vol] 10*3/uL Normal <0.01 [facility] Comment on above: Order Comment: Speci men Type: BLOOD SPECIMEN Performed By: #### 5 7021-8 ####[facility]ATORYCLIA [id number] [place] [address] Nucleated RBC/100 WBC (Bld) [Ratio] 0.0 /100 WBC Normal 0.0 [facility] Comment on above: Order Comment: Speci men Type: BLOOD SPECIMEN Performed By: #### 5 7021-8 ####[facility]ORYCLIA [id number] [place] [address] Platelet mean volume (Bld) [Entitic vol] 9.5 fL Normal 9.0-12.7 [facility] Comment on above: Order Comment: Speci men Type: BLOOD SPECIMEN Performed By: #### 5 7021-8 ####[facility]ORYCLIA [id number] [place] [address] Platelets (Bld) [#/Vol] 267 10*3/uL Normal 150-400 [facility] Comment on above: Order Comment: Speci men Type: BLOOD SPECIMEN Performed By: #### 5 7021-8 ####[facility]ORYCLIA [id number] [place] [address] RBC (Bld) [#/Vol] 2.49 10*6/uL Low 3.90-5.20 [facility] Comment on above: Order Comment: Speci men Type: BLOOD SPECIMEN Performed By: #### 5 7021-8 ####[facility]ORYCLIA [id number] [place] [address] WBC (Bld) [#/Vol] 8.81 10*3/uL Normal 3.70-11.00 [facility] Comment on above: Order Comment: Speci men Type: BLOOD SPECIMEN Performed By: #### 5 7021-8 ####[facility]ORYCLIA [id number] [place] [address] Comprehensive metabolic 2000 panelon 10-31-2020 Albumin [Mass/Vol] 3.4 g/dL Low 3.9-4.9 [facility] Comment on above: Order Comment: Speci men Type: BLOOD SPECIMEN Performed By: #### 2 4323-8, ####[facility]ATORYCLIA [id number] [place] [address] ALP [Catalytic activity/Vol] 63 U/L Normal 34-123 [facility] Comment on above: Order Comment: Speci men Type: BLOOD SPECIMEN Performed By: #### 2 4323-8, ####[facility]ATORYCLIA [id number] [place] [address] ALT With P-5'-P [Catalytic activity/Vol] 28 U/L Normal 7-38 [facility] Comment on above: Order Comment: Speci men Type: BLOOD SPECIMEN Performed By: #### 2 4323-8, ####[facility]ORYCLIA [id number] [place] [address] Anion gap [Moles/Vol] 8 mmol/L Low 9-18 [facility] Comment on above: Order Comment: Speci men Type: BLOOD SPECIMEN Performed By: #### 2 4323-8, ####[facility]ORYCLIA [id number] [place] [address] AST With P-5'-P [Catalytic activity/Vol] 54 U/L High 13-35 [facility] Comment on above: Order Comment: Speci men Type: BLOOD SPECIMEN Performed By: #### 2 4323-8, ####[facility]ORYCLIA [id number] [place] [address] Bilirubin [Mass/Vol] 0.8 mg/dL Normal 0.2-1.3 [facility] Comment on above: Order Comment: Speci men Type: BLOOD SPECIMEN Performed By: #### 2 4323-8, ####[facility]ORYCLIA [id number] [place] [address] Calcium [Mass/Vol] 8.5 mg/dL Normal 8.5-10.2 [facility] Comment on above: Order Comment: Speci men Type: BLOOD SPECIMEN Performed By: #### 2 432-8, ####[facility]ORYCLIA [id number] [place] [address] Chloride [Moles/Vol] 106 mmol/L High 97-105 [facility] Comment on above: Order Comment: Speci men Type: BLOOD SPECIMEN Performed By: #### 2 4322-8, ####[facility]ORYCLIA [id number] [place] [address] CO2 [Moles/Vol] 24 mmol/L Normal 22-30 [facility] Comment on above: Order Comment: Speci men Type: BLOOD SPECIMEN Performed By: #### 2 432-8, ####[facility]ORYCLIA [id number] [place] [address] Creatinine [Mass/Vol] 0.85 mg/dL Normal 0.58-0.96 [facility] Comment on above: Order Comment: Speci men Type: BLOOD SPECIMEN Performed By: #### 2 4323-8, ####[facility]ORYCLIA [id number] [place] [address] GFR/1.73 sq M.predicted MDRD (S/P/Bld) [Vol rate/Area] mL/min/{1.73_m2} Normal [facility] Comment on above: Order Comment: Speci men Type: BLOOD SPECIMEN Result Comment: >60e GFR (Estimated GFR) Units of measure: mL/min/1.73 meters squaredeGFR is derived from the reexpressed MDRD Study equation using the following parameters: serum creatinine, age, gender and race. The creatinine assay has been calibrated to be traceable to IDMS. An eGFR <60 mL/min/1.73m2 for >3 months is consistent with chronic kidney disease. Refer to KDOQI guidelines for clinical interpretation. In patients with unstable renal function, e.g. those with acute kidney injury, the eGFR may not accurately reflect actual GFR. Performed By: #### 2 432-8, ####[facility]ATORYCLIA [id number] [place] [address] Glucose [Mass/Vol] 94 mg/dL Normal 74-99 [facility] Comment on above: Order Comment: Speci men Type: BLOOD SPECIMEN Result Comment: The [place] Diabetes [employer] (ADA) provides guidance for cutoff values for fasting glucose and random glucose. The ADA defines fasting as no caloric intake for at least 8 hours. Fasting plasma glucose results between 100 to 125 mg/dL indicate increased risk for diabetes (prediabetes).Fasting plasma glucose results greater than or equal to 126 mg/dL meet the criteria for diagnosis of diabetes. In the absence of unequivocal hyperglycemia, results should be confirmed by repeat testing. In a patient with classic symptoms of hyperglycemia or hyperglycemic crisis, random plasma glucose results greater than or equal to 200 mg/dL meet the criteria for diagnosis of diabetes.Reference: Standards of Medical Care in Diabetes 2016, [place] [employer]. Diabetes Care. 2016.39(Suppl 1). Performed By: #### 2 432 ####[facility]ATORYCLIA [id number] [place] [address] Potassium [Moles/Vol] 4.5 mmol/L Normal 3.7-5.1 [facility] Comment on above: Order Comment: Speci men Type: BLOOD SPECIMEN Performed By: #### 2 4323-8, ####[facility]ORYCLIA [id number] [place] [address] Protein [Mass/Vol] 5.4 g/dL Low 6.3-8.0 [facility] Comment on above: Order Comment: Speci men Type: BLOOD SPECIMEN Performed By: #### 2 4323-8, 45058-9 ####[facility]ORYCLIA [id number] [place] [address] Sodium [Moles/Vol] 138 mmol/L Normal 136-144 [facility] Comment on above: Order Comment: Speci men Type: BLOOD SPECIMEN Performed By: #### 2 4323-8, 58904-7 ####[facility]ATORYCLIA [id number] [place] [address] Urea nitrogen [Mass/Vol] 9 mg/dL Normal 7-21 [facility] Comment on above: Order Comment: Speci men Type: BLOOD SPECIMEN Performed By: #### 2 4323-8, 00303-2 ####[facility]ORYCLIA [id number] [place] [address] Magnesium SerPl-mCncon 10-31 Magnesium [Mass/Vol] 1.8 mg/dL Normal 1.7-2.3 [facility] Comment on above: Order Comment: Speci men Type: BLOOD SPECIMEN Performed By: #### 2 4323-8, 81727-6 ####[facility]ATORYCLIA [id number] [place] [address] PT panel Coag (PPP)on 2020 INR Coag (PPP) [Relative time] 1.4 {INR} High 0.9-1.3 [facility] Comment on above: Order Comment: Speci men Type: BLOOD SPECIMEN Result Comment: Nicolasa min K Antagonist (VKA) Therapeutic Range: INR 2 to 3 (Target INR of 2.5)Note: For patients treated with VKA drugs, such as warfarin, the [place] [employer] 2012 Guideline recommends a therapeutic INR range of 2 to 3 (target INR of 2.5). This recommendation includes high-risk patients with antiphospholipid syndrome with previous arterial or venous thromboembolism, current-generation mechanical or bioprosthetic aortic heart valve replacement.Note: Patients with mechanical aortic valve replacement and additional risk factors for thromboembolic events (atrial fibrillation, previous thromboembolism, LV dysfunction, hypercoagulable conditions) or an older generation mechanical AVR (i.e., ball in-Cage) or any mechanical MVR should have a INR therapeutic range of 2.5 to 3.5 (target INR of 3).Teresa GH, et al. Chest 2012, 141:7S-47SNishimura RA, et al. [facility] 2017, 70: 252-289 Performed By: #### 1 4979-9, 16162-6 ####[facility]ORATORYCLIA [id number] [place] [address] PT Coag (PPP) [Time] 14.5 s High 9.7-13.0 [facility] Comment on above: Order Comment: Speci men Type: BLOOD SPECIMEN Performed By: #### 1 4979-9, 41832-3 ####[facility]ORATORYCLIA [id number] [place] [address] aPTT PPPon 10-31-2020 aPTT Coag (PPP) [Time] 64.1 s High 23.0-32.4 [facility] Comment on above: Order Comment: Speci men Type: BLOOD SPECIMEN Performed By: #### 1 4979-9 ####[facility]ORATORYCLIA [id number] [place] [address] aPTT Coag (PPP) [Time] 36.0 s High 23.0-32.4 [facility] Comment on above: Order Comment: Speci men Type: BLOOD SPECIMEN Performed By: #### 1 4979-9 ####[facility]ATORYCLIA [id number] [place] [address] aPTT Coag (PPP) [Time] 98.6 s High 23.0-32.4 [facility] Comment on above: Order Comment: Speci men Type: BLOOD SPECIMEN Performed By: #### 1 4979-9, 98710-2 ####[facility]ATORYCLIA [id number] [place] [address] CASE MANAGEMon 10-30-2020 CASE MANAGEM Normal [facility] CBC W Auto Differential pane l (Bld)on 10-30-2020 Basophils (Bld) [#/Vol] 0.07 10*3/uL Normal <0.11 [facility] Comment on above: Order Comment: Speci men Type: BLOOD SPECIMEN Performed By: #### 5 7021-8 ####[facility]ORYCLIA [id number] [place] [address] Basophils/100 WBC (Bld) 0.8 % Normal [facility] Comment on above: Order Comment: Speci men Type: BLOOD SPECIMEN Performed By: #### 5 7021-8 ####[facility]ORYCLIA [id number] [place] [address] Differential cell count method Nom (Bld) Auto Normal [facility] Comment on above: Order Comment: Speci men Type: BLOOD SPECIMEN Performed By: #### 5 7021-8 ####[facility]ORYCLIA [id number] [place] [address] Eosinophils (Bld) [#/Vol] 0.34 10*3/uL Normal <0.46 [facility] Comment on above: Order Comment: Speci men Type: BLOOD SPECIMEN Performed By: #### 5 7021-8 ####[facility]ORYCLIA [id number] [place] [address] Eosinophils/100 WBC (Bld) 3.8 % Normal [facility] Comment on above: Order Comment: Speci men Type: BLOOD SPECIMEN Performed By: #### 5 7021-8 ####[facility]ORYCLIA [id number] [place] [address] Erythrocyte distribution width (RBC) [Ratio] 14.5 % Normal 11.5-15.0 [facility] Comment on above: Order Comment: Speci men Type: BLOOD SPECIMEN Performed By: #### 5 7021-8 ####[facility]ORYCLIA [id number] [place] [address] Hematocrit (Bld) [Volume fraction] 25.8 % Low 36.0-46.0 [facility] Comment on above: Order Comment: Speci men Type: BLOOD SPECIMEN Performed By: #### 5 7021-8 ####[facility]ORYCLIA [id number] [place] [address] Hemoglobin (Bld) [Mass/Vol] 8.5 g/dL Low 11.5-15.5 [facility] Comment on above: Order Comment: Speci men Type: BLOOD SPECIMEN Performed By: #### 5 7021-8 ####[facility]ATORYCLIA [id number] [place] [address] IMMATURE GRAN % 0.8 % Normal [facility] Comment on above: Order Comment: Speci men Type: BLOOD SPECIMEN Performed By: #### 5 7021-8 ####[facility]ATORYCLIA [id number] [place] [address] IMMATURE GRAN ABS 0.07 k/uL Normal <0.10 [facility] Comment on above: Order Comment: Speci men Type: BLOOD SPECIMEN Performed By: #### 5 7021-8 ####[facility]ATORYCLIA [id number] [place] [address] Lymphocytes (Bld) [#/Vol] 1.51 10*3/uL Normal 1.00-4.00 [facility] Comment on above: Order Comment: Speci men Type: BLOOD SPECIMEN Performed By: #### 5 7021-8 ####[facility]ATORYCLIA [id number] [place] [address] Lymphocytes/100 WBC (Bld) 16.9 % Normal [facility] Comment on above: Order Comment: Speci men Type: BLOOD SPECIMEN Performed By: #### 5 7021-8 ####[facility]ATORYCLIA [id number] [place] [address] MCH (RBC) [Entitic mass] 32.3 pg Normal 26.0-34.0 [facility] Comment on above: Order Comment: Speci men Type: BLOOD SPECIMEN Performed By: #### 5 7021-8 ####[facility]ATORYCLIA [id number] [place] [address] MCHC (RBC) [Mass/Vol] 32.9 g/dL Normal 30.5-36.0 [facility] Comment on above: Order Comment: Speci men Type: BLOOD SPECIMEN Performed By: #### 5 7021-8 ####[facility]ORYCLIA [id number] [place] [address] MCV (RBC) [Entitic vol] 98.1 fL Normal 80.0-100.0 [facility] Comment on above: Order Comment: Speci men Type: BLOOD SPECIMEN Performed By: #### 5 7021-8 ####[facility]ORYCLIA [id number] [place] [address] Monocytes (Bld) [#/Vol] 0.52 10*3/uL Normal <0.87 [facility] Comment on above: Order Comment: Speci men Type: BLOOD SPECIMEN Performed By: #### 5 7021-8 ####[facility]ORYCLIA [id number] [place] [address] Monocytes/100 WBC (Bld) 5.8 % Normal [facility] Comment on above: Order Comment: Speci men Type: BLOOD SPECIMEN Performed By: #### 5 7021-8 ####[facility]ORYCLIA [id number] [place] [address] Neutrophils (Bld) [#/Vol] 6.44 10*3/uL Normal 1.45-7.50 [facility] Comment on above: Order Comment: Speci men Type: BLOOD SPECIMEN Performed By: #### 5 7021-8 ####[facility]ORYCLIA [id number] [place] [address] Neutrophils/100 WBC (Bld) 71.9 % Normal [facility] Comment on above: Order Comment: Speci men Type: BLOOD SPECIMEN Performed By: #### 5 7021-8 ####[facility]ORYCLIA [id number] [place] [address] Nucleated RBC (Bld) [#/Vol] 10*3/uL Normal <0.01 [facility] Comment on above: Order Comment: Speci men Type: BLOOD SPECIMEN Performed By: #### 5 7021-8 ####[facility]ORYCLIA [id number] [place] [address] Nucleated RBC/100 WBC (Bld) [Ratio] 0.0 /100 WBC Normal 0.0 [facility] Comment on above: Order Comment: Speci men Type: BLOOD SPECIMEN Performed By: #### 5 7021-8 ####[facility]ATORYCLIA [id number] [place] [address] Platelet mean volume (Bld) [Entitic vol] 9.6 fL Normal 9.0-12.7 [facility] Comment on above: Order Comment: Speci men Type: BLOOD SPECIMEN Performed By: #### 5 7021-8 ####[facility]ATORYCLIA [id number] [place] [address] Platelets (Bld) [#/Vol] 259 10*3/uL Normal 150-400 [facility] Comment on above: Order Comment: Speci men Type: BLOOD SPECIMEN Performed By: #### 5 7021-8 ####[facility]ATORYCLIA [id number] [place] [address] RBC (Bld) [#/Vol] 2.63 10*6/uL Low 3.90-5.20 [facility] Comment on above: Order Comment: Speci men Type: BLOOD SPECIMEN Performed By: #### 5 7021-8 ####[facility]ATORYCLIA [id number] [place] [address] WBC (Bld) [#/Vol] 8.95 10*3/uL Normal 3.70-11.00 [facility] Comment on above: Order Comment: Speci men Type: BLOOD SPECIMEN Performed By: #### 5 7021-8 ####[facility]ATORYCLIA [id number] [place] [address] Comprehensive metabolic 2000 panelon 10-30-2020 Albumin [Mass/Vol] 3.5 g/dL Low 3.9-4.9 [facility] Comment on above: Order Comment: Speci men Type: BLOOD SPECIMEN Performed By: #### 1 9123-9, 42208-6 ####[facility]ATORYCLIA [id number] [place] [address] ALP [Catalytic activity/Vol] 66 U/L Normal 34-123 [facility] Comment on above: Order Comment: Speci men Type: BLOOD SPECIMEN Performed By: #### 1 9122-9, ####[facility]ORATORYCLIA [id number] [place] [address] ALT With P-5'-P [Catalytic activity/Vol] 26 U/L Normal 7-38 [facility] Comment on above: Order Comment: Speci men Type: BLOOD SPECIMEN Performed By: #### 1 9122-, ####[facility]ATORYCLIA [id number] [place] [address] Anion gap [Moles/Vol] 8 mmol/L Low 9-18 [facility] Comment on above: Order Comment: Speci men Type: BLOOD SPECIMEN Performed By: #### 1 9123-04, ####[facility]ATORYCLIA [id number] [place] [address] AST With P-5'-P [Catalytic activity/Vol] 48 U/L High 13-35 [facility] Comment on above: Order Comment: Speci men Type: BLOOD SPECIMEN Performed By: #### 1 9122-, ####[facility]ATORYCLIA [id number] [place] [address] Bilirubin [Mass/Vol] 0.9 mg/dL Normal 0.2-1.3 [facility] Comment on above: Order Comment: Speci men Type: BLOOD SPECIMEN Performed By: #### 1 9122-, ####[facility]ATORYCLIA [id number] [place] [address] Calcium [Mass/Vol] 8.8 mg/dL Normal 8.5-10.2 [facility] Comment on above: Order Comment: Speci men Type: BLOOD SPECIMEN Performed By: #### 1 23-9, ####[facility]ORYCLIA [id number] [place] [address] Chloride [Moles/Vol] 106 mmol/L High 97-105 [facility] Comment on above: Order Comment: Speci men Type: BLOOD SPECIMEN Performed By: #### 1 9123-9, ####[facility]ATORYCLIA [id number] [place] [address] CO2 [Moles/Vol] 23 mmol/L Normal 22-30 [facility] Comment on above: Order Comment: Speci men Type: BLOOD SPECIMEN Performed By: #### 1 91239, ####[facility]ATORYCLIA [id number] [place] [address] Creatinine [Mass/Vol] 0.83 mg/dL Normal 0.58-0.96 [facility] Comment on above: Order Comment: Speci men Type: BLOOD SPECIMEN Performed By: #### 1 9123-9, ####[facility]ATORYCLIA [id number] [place] [address] GFR/1.73 sq M.predicted MDRD (S/P/Bld) [Vol rate/Area] mL/min/{1.73_m2} Normal [facility] Comment on above: Order Comment: Speci men Type: BLOOD SPECIMEN Result Comment: >60e GFR (Estimated GFR) Units of measure: mL/min/1.73 meters squaredeGFR is derived from the reexpressed MDRD Study equation using the following parameters: serum creatinine, age, gender and race. The creatinine assay has been calibrated to be traceable to IDMS. An eGFR <60 mL/min/1.73m2 for >3 months is consistent with chronic kidney disease. Refer to KDOQI guidelines for clinical interpretation. In patients with unstable renal function, e.g. those with acute kidney injury, the eGFR may not accurately reflect actual GFR. Performed By: #### 1 9123-9, ####[facility]ATORYCLIA [id number] [place] [address] Glucose [Mass/Vol] 93 mg/dL Normal 74-99 [facility] Comment on above: Order Comment: Speci men Type: BLOOD SPECIMEN Result Comment: The [place] [employer] (ADA) provides guidance for cutoff values for fasting glucose and random glucose. The ADA defines fasting as no caloric intake for at least 8 hours. Fasting plasma glucose results between 100 to 125 mg/dL indicate increased risk for diabetes (prediabetes).Fasting plasma glucose results greater than or equal to 126 mg/dL meet the criteria for diagnosis of diabetes. In the absence of unequivocal hyperglycemia, results should be confirmed by repeat testing. In a patient with classic symptoms of hyperglycemia or hyperglycemic crisis, random plasma glucose results greater than or equal to 200 mg/dL meet the criteria for diagnosis of diabetes.Reference: Standards of Medical Care in Diabetes 2016, [place] [employer]. Diabetes Care. 2016.39(Suppl 1). Performed By: #### 1 9123-9, 96487-4 ####[facility]ATORYCLIA [id number] [place] [address] Potassium [Moles/Vol] 4.4 mmol/L Normal 3.7-5.1 [facility] Comment on above: Order Comment: Speci men Type: BLOOD SPECIMEN Performed By: #### 1 9, ####[facility]ATORYCLIA [id number] [place] [address] Protein [Mass/Vol] 5.5 g/dL Low 6.3-8.0 [facility] Comment on above: Order Comment: Speci men Type: BLOOD SPECIMEN Performed By: #### 1 9, ####[facility]ATORYCLIA [id number] [place] [address] Sodium [Moles/Vol] 137 mmol/L Normal 136-144 [facility] Comment on above: Order Comment: Speci men Type: BLOOD SPECIMEN Performed By: #### 1 9, 20008-2 ####[facility]ATORYCLIA [id number] [place] [address] Urea nitrogen [Mass/Vol] 9 mg/dL Normal 7-21 [facility] Comment on above: Order Comment: Speci men Type: BLOOD SPECIMEN Performed By: #### 1 23-9, 65278-8 ####[facility]ATORYCLIA [id number] [place] [address] HEMATOCRIT (HCT)on 1 Hematocrit (Bld) [Volume fraction] 27.1 % Low 36.0-46.0 [facility] Comment on above: Order Comment: Speci men Type: BLOOD SPECIMEN Performed By: #### H CT, HGB ####[facility]ATORYCLIA [id number] [place] [address] Hematocrit (Bld) [Volume fraction] 23.5 % Low 36.0-46.0 [facility] Comment on above: Order Comment: Speci men Type: BLOOD SPECIMEN Performed By: #### H GB, HCT ####[facility]ATORYCLIA [id number] [place] [address] HEMOGLOBIN (HGB)on 1 Hemoglobin (Bld) [Mass/Vol] 9.0 g/dL Low 11.5-15.5 [facility] Comment on above: Order Comment: Speci men Type: BLOOD SPECIMEN Performed By: #### H CT, HGB ####[facility]ATORYCLIA [id number] [place] [address] Hemoglobin (Bld) [Mass/Vol] 8.0 g/dL Low 11.5-15.5 [facility] Comment on above: Order Comment: Speci men Type: BLOOD SPECIMEN Performed By: #### H GB, HCT ####[facility]ATORYCLIA [id number] [place] [address] Magnesium SerPl-mCncon 10-30 Magnesium [Mass/Vol] 1.8 mg/dL Normal 1.7-2.3 [facility] Comment on above: Order Comment: Speci men Type: BLOOD SPECIMEN Performed By: #### 1 9123-9, 53885-8 ####[facility]ATORYCLIA [id number] [place] [address] PT panel Coag (PPP)on 2020 INR Coag (PPP) [Relative time] 1.6 {INR} High 0.9-1.3 [facility] Comment on above: Order Comment: Speci men Type: BLOOD SPECIMEN Result Comment: Nicolasa min K Antagonist (VKA) Therapeutic Range: INR 2 to 3 (Target INR of 2.5)Note: For patients treated with VKA drugs, such as warfarin, the [place] [employer] 2012 Guideline recommends a therapeutic INR range of 2 to 3 (target INR of 2.5). This recommendation includes high-risk patients with antiphospholipid syndrome with previous arterial or venous thromboembolism, current-generation mechanical or bioprosthetic aortic heart valve replacement.Note: Patients with mechanical aortic valve replacement and additional risk factors for thromboembolic events (atrial fibrillation, previous thromboembolism, LV dysfunction, hypercoagulable conditions) or an older generation mechanical AVR (i.e., ball in-Cage) or any mechanical MVR should have a INR therapeutic range of 2.5 to 3.5 (target INR of 3).Teresa GH, et al. Chest 2012, 141:7S-47SKunal RA, et al. [facility] 2017, 70: 252-289 Performed By: #### 3 4528-0 ####[facility]ATORYCLIA [id number] [place] [address] PT Coag (PPP) [Time] 16.6 s High 9.7-13.0 [facility] Comment on above: Order Comment: Speci men Type: BLOOD SPECIMEN Performed By: #### 3 4528-0 ####[facility]ORYCLIA [id number] [place] [address] aPTT PPPon 10-30-2020 aPTT Coag (PPP) [Time] EXTREMELY ABNORMAL RESULT. No clot detected at 320 seconds. Refer to Heparin Nomogram for further actions. Critically abnormal (none) [facility] Comment on above: Order Comment: Speci men Type: BLOOD SPECIMEN Performed By: #### 1 4979-9 ####[facility]ORYCLIA [id number] [place] [address] aPTT Coag (PPP) [Time] 32.5 s High 23.0-32.4 [facility] Comment on above: Order Comment: Speci men Type: BLOOD SPECIMEN Performed By: #### 1 4979-9 ####[facility]ORYCLIA [id number] [place] [address] ALLIED HEALTHon 10-29-2020 ALLIED HEALTH Normal [facility] ALLIED HEALTH Normal [facility] BRIEF OP NOTon 10-29-2020 BRIEF OP NOT Normal [facility] CBC W Auto Differential pane l (Bld)on 10-29-2020 Basophils (Bld) [#/Vol] 0.06 10*3/uL Normal <0.11 [facility] Comment on above: Order Comment: Speci men Type: BLOOD SPECIMEN Performed By: #### 5 7021-8 ####[facility]ORYCLIA [id number] [place] [address] Basophils/100 WBC (Bld) 0.7 % Normal [facility] Comment on above: Order Comment: Speci men Type: BLOOD SPECIMEN Performed By: #### 5 7021-8 ####[facility]ORYCLIA [id number] [place] [address] Differential cell count method Nom (Bld) Auto Normal [facility] Comment on above: Order Comment: Speci men Type: BLOOD SPECIMEN Performed By: #### 5 7021-8 ####[facility]ORYCLIA [id number] [place] [address] Eosinophils (Bld) [#/Vol] 0.35 10*3/uL Normal <0.46 [facility] Comment on above: Order Comment: Speci men Type: BLOOD SPECIMEN Performed By: #### 5 7021-8 ####[facility]ORYCLIA [id number] [place] [address] Eosinophils/100 WBC (Bld) 3.8 % Normal [facility] Comment on above: Order Comment: Speci men Type: BLOOD SPECIMEN Performed By: #### 5 7021-8 ####[facility]ORYCLIA [id number] [place] [address] Erythrocyte distribution width (RBC) [Ratio] 13.9 % Normal 11.5-15.0 [facility] Comment on above: Order Comment: Speci men Type: BLOOD SPECIMEN Performed By: #### 5 7021-8 ####[facility]ORYCLIA [id number] [place] [address] Hematocrit (Bld) [Volume fraction] 21.9 % Low 36.0-46.0 [facility] Comment on above: Order Comment: Speci men Type: BLOOD SPECIMEN Performed By: #### 5 7021-8 ####[facility]ORYCLIA [id number] [place] [address] Hemoglobin (Bld) [Mass/Vol] 7.0 g/dL Low 11.5-15.5 [facility] Comment on above: Order Comment: Speci men Type: BLOOD SPECIMEN Performed By: #### 5 7021-8 ####[facility]ATORYCLIA [id number] [place] [address] IMMATURE GRAN % 1.0 % Normal [facility] Comment on above: Order Comment: Speci men Type: BLOOD SPECIMEN Performed By: #### 5 7021-8 ####[facility]ORYCLIA [id number] [place] [address] IMMATURE GRAN ABS 0.09 k/uL Normal <0.10 [facility] Comment on above: Order Comment: Speci men Type: BLOOD SPECIMEN Performed By: #### 5 7021-8 ####[facility]ORYCLIA [id number] [place] [address] Lymphocytes (Bld) [#/Vol] 1.44 10*3/uL Normal 1.00-4.00 [facility] Comment on above: Order Comment: Speci men Type: BLOOD SPECIMEN Performed By: #### 5 7021-8 ####[facility]ORYCLIA [id number] [place] [address] Lymphocytes/100 WBC (Bld) 15.8 % Normal [facility] Comment on above: Order Comment: Speci men Type: BLOOD SPECIMEN Performed By: #### 5 7021-8 ####[facility]ORYCLIA [id number] [place] [address] MCH (RBC) [Entitic mass] 32.6 pg Normal 26.0-34.0 [facility] Comment on above: Order Comment: Speci men Type: BLOOD SPECIMEN Performed By: #### 5 7021-8 ####[facility]ORYCLIA [id number] [place] [address] MCHC (RBC) [Mass/Vol] 32.0 g/dL Normal 30.5-36.0 [facility] Comment on above: Order Comment: Speci men Type: BLOOD SPECIMEN Performed By: #### 5 7021-8 ####[facility]ORYCLIA [id number] [place] [address] MCV (RBC) [Entitic vol] 101.9 fL High 80.0-100.0 [facility] Comment on above: Order Comment: Speci men Type: BLOOD SPECIMEN Performed By: #### 5 7021-8 ####[facility]ORYCLIA [id number] [place] [address] Monocytes (Bld) [#/Vol] 0.52 10*3/uL Normal <0.87 [facility] Comment on above: Order Comment: Speci men Type: BLOOD SPECIMEN Performed By: #### 5 7021-8 ####[facility]ORYCLIA [id number] [place] [address] Monocytes/100 WBC (Bld) 5.7 % Normal [facility] Comment on above: Order Comment: Speci men Type: BLOOD SPECIMEN Performed By: #### 5 7021-8 ####[facility]ORYCLIA [id number] [place] [address] Neutrophils (Bld) [#/Vol] 6.66 10*3/uL Normal 1.45-7.50 [facility] Comment on above: Order Comment: Speci men Type: BLOOD SPECIMEN Performed By: #### 5 7021-8 ####[facility]ORYCLIA [id number] [place] [address] Neutrophils/100 WBC (Bld) 73.0 % Normal [facility] Comment on above: Order Comment: Speci men Type: BLOOD SPECIMEN Performed By: #### 5 7021-8 ####[facility]ORYCLIA [id number] [place] [address] Nucleated RBC (Bld) [#/Vol] 0.02 10*3/uL High <0.01 [facility] Comment on above: Order Comment: Speci men Type: BLOOD SPECIMEN Performed By: #### 5 7021-8 ####[facility]ORYCLIA [id number] [place] [address] Nucleated RBC/100 WBC (Bld) [Ratio] 0.2 /100 WBC High 0.0 [facility] Comment on above: Order Comment: Speci men Type: BLOOD SPECIMEN Performed By: #### 5 7021-8 ####[facility]ORYCLIA [id number] [place] [address] Platelet mean volume (Bld) [Entitic vol] 10.2 fL Normal 9.0-12.7 [facility] Comment on above: Order Comment: Speci men Type: BLOOD SPECIMEN Performed By: #### 5 7021-8 ####[facility]ORYCLIA [id number] [place] [address] Platelets (Bld) [#/Vol] 238 10*3/uL Normal 150-400 [facility] Comment on above: Order Comment: Speci men Type: BLOOD SPECIMEN Performed By: #### 5 7021-8 ####[facility]ORYCLIA [id number] [place] [address] RBC (Bld) [#/Vol] 2.15 10*6/uL Low 3.90-5.20 [facility] Comment on above: Order Comment: Speci men Type: BLOOD SPECIMEN Performed By: #### 5 7021-8 ####[facility]ORYCLIA [id number] [place] [address] WBC (Bld) [#/Vol] 9.12 10*3/uL Normal 3.70-11.00 [facility] Comment on above: Order Comment: Speci men Type: BLOOD SPECIMEN Performed By: #### 5 7021-8 ####[facility]ORYCLIA [id number] [place] [address] CONSULT PROGon 10-29-2020 CONSULT PROG Normal [facility] CTA ABD/PEL/LOWER EXT W IVCO Non 10-29-2020 CTA ABD/PEL/LOWER EXT W IVCON Final Report DATE OF EXAM: Oct 29 2020 11:10AM [facility] 0122 - CTA ABD/PEL/LOWER EXT W IVCON / PROCEDURE REASON: Other disorders of arteries or arterioles Physician Interpretation CT ANGIOGRAM OF THE ABDOMEN, PELVIS, AND BILATERAL LOWER EXTREMITIES HISTORY: Other disorders of arteries or arterioles. Right leg pain. TECHNIQUE: High-resolution contrast-enhanced helical CT of the abdomen, pelvis and both lower extremities was performed, timed to the arterial phase. 3-D processing was performed by the physician on an independent work station, with MIP and volume-rendering techniques. Total of 150 ml of Omnipaque 350 was injected IV during the examination. The study was performed without oral contrast. The patient tolerated the injection without complications. Dose-Length Product (DLP): [address] Dose Reduction Employed: Automated exposure control(AEC) and iterative recon COMPARISON: 10/26/2020. RESULT: VASCULAR FINDINGS There is a 6.4 x 5.0 x 15.4 cm right rectus sheath hematoma (series 4 image 383) and (series 6 image 57). There is a 5.7 x 2.8 x 11.6 cm left rectus sheath hematoma (series 4 image 397) and (series 6 image 81). There is no CT evidence of active extravasation. There is a punctate focus of contrast enhancement within the anterior portion of the rectus sheath hematoma (series 4 image 367-371), which could represent an abnormal small branch vessels/pseudoaneurysm. ABDOMEN AND PELVIS: The aorta is atherosclerotic, however, demonstrates no aneurysmal dilation. Celiac artery is patent. Superior mesenteric artery is patent. Inferior mesenteric artery is moderately atherosclerotic at its ostium, however, is patent. There are two right renal arteries. Right renal arteries are patent. There is a single left renal artery. Left renal arteries are patent. RIGHT LEG: Right common iliac artery is patent. Right external iliac artery is patent. Right internal iliac artery is moderately atherosclerotic but patent. Right common femoral artery is patent. Right profunda femoris artery is patent. Right superficial femoral artery is patent. Right popliteal artery is patent. Right anterior tibial artery is patent. Dorsalis pedis is seen and normal in appearance. Right tibioperoneal trunk is patent. Right posterior tibial artery is very diminutive in size. The right peroneal artery is patent. It continues to supply the foot. LEFT LEG: Left common iliac artery is mildly atherosclerotic but patent. Left external iliac artery is patent. Left internal iliac artery is mildly atherosclerotic but patent. Left common femoral artery is patent. Left profunda femoris artery is patent. Left superficial femoral artery is patent. Left popliteal artery is patent. Left anterior tibial artery is patent proximally, but disappears in the mid leg. Dorsalis pedis is not seen. Left tibioperoneal trunk is patent. Left posterior tibial artery is very diminutive in size. The left peroneal artery is patent. It continues to supply the foot. NONVASCULAR FINDINGS Liver: No mass. Biliary: No bile duct dilation. Cholelithiasis. Spleen: No mass. No splenomegaly. Pancreas: No mass or duct dilation. Adrenals: No mass. Kidneys: No enhancing renal mass. No hydronephrosis. Left renal cysts. GI tract: No dilation or wall thickening. Colonic diverticulosis without findings of diverticulitis. Lymph nodes: No abdominal or pelvic lymphadenopathy. Mesentery/Peritoneum: No ascites or mass. Retroperitoneum: No mass. Pelvis: No mass, ascites or fluid collection. Bones/Soft Tissues: No significant finding. Lower thorax: No lesions. IMPRESSION: Bilateral rectus sheath hematomas, greater on the right, appear unchanged in size from 10/26/2020. There is no active extravasation. There is an abnormal focus of contrast enhancement within the anterior portion of the right rectus sheath hematoma which could represent an abnormal branch vessel/pseudoaneurysm. Patent 2 vessel runoff to the right foot and single vessel runoff to the left foot. Overall, the burden of atherosclerotic disease is mild throughout the arterial supply to the lower extremities. Cholelithiasis. Colonic diverticulosis. Baster Hand: [facility] Transcribe Date/Time: Oct 29 2020 3:45P Dictated by : RIKY HUERTAS MD This examination was interpreted and the report reviewed and electronically signed by: RIKY HUERTAS MD on Oct 29 2020 4:36PM EST Normal [facility] Comprehensive metabolic 2000 panelon 10-29-2020 Albumin [Mass/Vol] 3.3 g/dL Low 3.9-4.9 [facility] Comment on above: Order Comment: Speci men Type: BLOOD SPECIMEN Performed By: #### 2 4323-8, ####[facility] [id number] [place] [address] ALP [Catalytic activity/Vol] 56 U/L Normal 34-123 [facility] Comment on above: Order Comment: Speci men Type: BLOOD SPECIMEN Performed By: #### 2 4323-8, 00271-8 ####[facility] [id number] [place] [address] ALT With P-5'-P [Catalytic activity/Vol] 22 U/L Normal 7-38 [facility] Comment on above: Order Comment: Speci men Type: BLOOD SPECIMEN Performed By: #### 2 4323-8, ####[facility] [id number] [place] [address] Anion gap [Moles/Vol] 10 mmol/L Normal 9-18 [facility] Comment on above: Order Comment: Speci men Type: BLOOD SPECIMEN Performed By: #### 2 432-8, ####[facility] [id number] [place] [address] AST With P-5'-P [Catalytic activity/Vol] 45 U/L High 13-35 [facility] Comment on above: Order Comment: Speci men Type: BLOOD SPECIMEN Performed By: #### 2 4323-8, ####[facility] [id number] [place] [address] Bilirubin [Mass/Vol] 0.7 mg/dL Normal 0.2-1.3 [facility] Comment on above: Order Comment: Speci men Type: BLOOD SPECIMEN Performed By: #### 2 4323-8, ####[facility] [id number] [place] [address] Calcium [Mass/Vol] 8.5 mg/dL Normal 8.5-10.2 [facility] Comment on above: Order Comment: Speci men Type: BLOOD SPECIMEN Performed By: #### 2 4328, ####[facility]ORYCLIA [id number] [place] [address] Chloride [Moles/Vol] 104 mmol/L Normal 97-105 [facility] Comment on above: Order Comment: Speci men Type: BLOOD SPECIMEN Performed By: #### 2 4328, ####[facility]ORYCLIA [id number] [place] [address] CO2 [Moles/Vol] 22 mmol/L Normal 22-30 [facility] Comment on above: Order Comment: Speci men Type: BLOOD SPECIMEN Performed By: #### 2 4323-03, ####[facility]ORYCLIA [id number] [place] [address] Creatinine [Mass/Vol] 0.82 mg/dL Normal 0.58-0.96 [facility] Comment on above: Order Comment: Speci men Type: BLOOD SPECIMEN Performed By: #### 2 4323-03, ####[facility]ORYCLIA [id number] [place] [address] GFR/1.73 sq M.predicted MDRD (S/P/Bld) [Vol rate/Area] mL/min/{1.73_m2} Normal [facility] Comment on above: Order Comment: Speci men Type: BLOOD SPECIMEN Result Comment: >60e GFR (Estimated GFR) Units of measure: mL/min/1.73 meters squaredeGFR is derived from the reexpressed MDRD Study equation using the following parameters: serum creatinine, age, gender and race. The creatinine assay has been calibrated to be traceable to IDMS. An eGFR <60 mL/min/1.73m2 for >3 months is consistent with chronic kidney disease. Refer to KDOQI guidelines for clinical interpretation. In patients with unstable renal function, e.g. those with acute kidney injury, the eGFR may not accurately reflect actual GFR. Performed By: #### 2 4323-8, ####[facility]ORYCLIA [id number] [place] [address] Glucose [Mass/Vol] 78 mg/dL Normal 74-99 [facility] Comment on above: Order Comment: Speci men Type: BLOOD SPECIMEN Result Comment: The [place] Diabetes Association (ADA) provides guidance for cutoff values for fasting glucose and random glucose. The ADA defines fasting as no caloric intake for at least 8 hours. Fasting plasma glucose results between 100 to 125 mg/dL indicate increased risk for diabetes (prediabetes).Fasting plasma glucose results greater than or equal to 126 mg/dL meet the criteria for diagnosis of diabetes. In the absence of unequivocal hyperglycemia, results should be confirmed by repeat testing. In a patient with classic symptoms of hyperglycemia or hyperglycemic crisis, random plasma glucose results greater than or equal to 200 mg/dL meet the criteria for diagnosis of diabetes.Reference: Standards of Medical Care in Diabetes 2016, [place] [employer]. Diabetes Care. 2016.39(Suppl 1). Performed By: #### 2 4328, ####[facility]ORYCLIA [id number] [place] [address] Potassium [Moles/Vol] 4.3 mmol/L Normal 3.7-5.1 [facility] Comment on above: Order Comment: Speci men Type: BLOOD SPECIMEN Performed By: #### 2 4323-03, ####[facility]ORYCLIA [id number] [place] [address] Protein [Mass/Vol] 5.2 g/dL Low 6.3-8.0 [facility] Comment on above: Order Comment: Speci men Type: BLOOD SPECIMEN Performed By: #### 2 4328, ####[facility]ORYCLIA [id number] [place] [address] Sodium [Moles/Vol] 136 mmol/L Normal 136-144 [facility] Comment on above: Order Comment: Speci men Type: BLOOD SPECIMEN Performed By: #### 2 43210-12, ####[facility]ORYCLIA [id number] [place] [address] Urea nitrogen [Mass/Vol] 11 mg/dL Normal 7-21 [facility] Comment on above: Order Comment: Speci men Type: BLOOD SPECIMEN Performed By: #### 2 4323-8, 72211-8 ####[facility]ORYCLIA [id number] [place] [address] HEMATOCRIT (HCT)on 1 Hematocrit (Bld) [Volume fraction] 25.9 % Low 36.0-46.0 [facility] Comment on above: Order Comment: Speci men Type: BLOOD SPECIMEN Performed By: #### H GB, HCT ####[facility]ORYCLIA [id number] [place] [address] HEMOGLOBIN (HGB)on 1 Hemoglobin (Bld) [Mass/Vol] 8.7 g/dL Low 11.5-15.5 [facility] Comment on above: Order Comment: Speci men Type: BLOOD SPECIMEN Performed By: #### H GB, HCT ####[facility]ATORYCLIA [id number] [place] [address] HISTORY PHYSICALon 1 HISTORY PHYSICAL Normal [facility] IR EMBO ARTERIAL/MAPPINGon 0 10-29-2020 IR EMBO ARTERIAL/MAPPING Final Report DATE OF EXAM: Oct 29 2020 4:22PM ADELINA [address]qui[address] [place] [address] EMBO ARTERIAL/MAPPING / PROCEDURE REASON: Hematoma Physician Interpretation EXAM TITLE: PELVIC ARTERIOGRAM AND EMBOLIZATION OF THE RIGHT INFERIOR EPIGASTRIC ARTERY. DATE: 10/29/2020 COMPARISON: CT angiography the abdomen dated 10/29/[address] of the abdomen and pelvis dated 10/26/2020. CLINICAL INDICATION/HISTORY: The patient is a 55-year-old female has been anticoagulated. The patient recent INR was 3.0. The patient developed a right rectus sheath hematoma. The patient's hemoglobin has continued to decrease. The patient referred for angiography and possible embolization.. u/s guided L Fem access - embolization w/GelFoam; Hx: rectus sheath hematoma TO-[id number] S- E- SEDT- ABX1- ABXS1- FINDINGS: Informed consent was obtained from the patient. The patient placed in the supine position. A timeout was performed. All elements of maximum barrier technique including surgical cap and mask, sterile gown, sterile gloves, a large sterile drape, hand hygiene and appropriate prep agent for cutaneous antisepsis were utilized and maintained for this procedure. The left common femoral artery was identified with ultrasound. Local anesthesia effected with 2% Xylocaine. Utilizing real-time ultrasound guidance a 21-gauge micropuncture needle was introduced into the left common femoral artery. Position the tip the needle and left common femoral arteries confirmed with ultrasound and an image saved in the PACS. A.018 guidewire is then introduced. The micropuncture needle was withdrawn. A 4 Guyanese dilator was then inserted over the guidewire. The introducer and guidewire were removed. A Bentson guidewire is introduced and advanced into the distal abdominal aorta. The 4 Guyanese dilator was withdrawn. A 5 Guyanese sheath was then inserted over the guidewire. The introducer was removed. A 5 Guyanese Sos Omni select catheter was then inserted over the guidewire. The loop the catheter was formed in the opacity aorta. The catheter was then repositioned and selective catheterization of the right common iliac artery was performed. The guidewire was removed and digital angiography was then obtained. The Bentson guidewires then reintroduced and advanced to the right common femoral artery. The Sos Omni select catheter was then removed. A 4 Guyanese angled glide catheter was then inserted over the guidewire. The Bentson guidewire was exchanged for an angled Glidewire. Selective catheterization of the right inferior mesenteric artery was then performed. Digital angiography of the right inferior mesenteric artery was performed. Some of the branch vessels demonstrated some slight irregularity however no definite active extravasation was identified. Was felt that even though active extravasation was not present that embolization of the vessel with Gelfoam slurry should be performed. The Gelfoam slurry was injected under fluoroscopic observation. Post embolization angiography demonstrated successful occlusion of the lateral branches of the right inferior epigastric artery. The angled Glidewire was then reintroduced. The more medial branches of the right inferior mesenteric artery was then selectively catheterized. Digital angiography was performed. One in the proximal inferior branches off this vessel demonstrated a rounded configuration which could represent small focal area of extravasation. The more medial branch of the right inferior mesenteric artery was then embolized again utilizing Gelfoam slurry. Post embolization arteriogram demonstrated successful occlusion of the target vessels. At this point the procedure was terminated. The 4 Guyanese glide catheter was withdrawn. The left common femoral artery sheath was removed and hemostasis was obtained with direct pressure. The site was dressed in a sterile manner. The patient tolerated the procedure well. No immediate complications were noted. The patient received conscious sedation with intravenous Versed and Fentanyl. . The patient was monitored throughout the procedure by the Radiology nurse. Intra-service time (monitoring for moderate sedation) (starts with administration of agent, ends when continuous incr-jh-swea time ends): 35 minutes Patient monitoring: I personally supervised and directed an independent trained observer who assisted in monitoring the patient?s level of consciousness and physiological status throughout the procedure. The patient was returned to their room in stable condition .. IMPRESSION: 1. Angiography demonstrated only one punctate abnormality arising from a medial branch of the right inferior mesenteric artery which could represent a possible area of extravasation. 2. Technically successful embolization of the right inferior mesenteric artery with Gelfoam slurry as described above. Fluoroscopic Time: 6 minutes 30 seconds Radiation Exposure: 378 mGy Volume of Contrast: 86 cc of Visipaque 270 Number of Images: 17 series Antibiotics:The patient was already receiving intravenous antibiotic therapy. No additional antibiotics were administered for this procedure. B[facility] Transcribe Date/Time: Oct 29 2020 7:53P Dictated by : CAESAR FINCH MD This examination was interpreted and the report reviewed and electronically signed by: CAESAR FINCH MD on Oct 29 2020 8:04PM EST Normal [facility] Magnesium SerPl-mCncon 10-29 Magnesium [Mass/Vol] 1.7 mg/dL Normal 1.7-2.3 [facility] Comment on above: Order Comment: Yadira quigley Type: BLOOD SPECIMEN Performed By: #### 2 4323-8, 05333-3 ####[facility]ATORYCLIA [id number] [place] [address] PT panel Coag (PPP)on 2020 INR Coag (PPP) [Relative time] 1.9 {INR} High 0.9-1.3 [facility] Comment on above: Order Comment: Yadira quigley Type: BLOOD SPECIMEN Result Comment: Nicolasa min K Antagonist (VKA) Therapeutic Range: INR 2 to 3 (Target INR of 2.5)Note: For patients treated with VKA drugs, such as warfarin, the [place] [employer] 2012 Guideline recommends a therapeutic INR range of 2 to 3 (target INR of 2.5). This recommendation includes high-risk patients with antiphospholipid syndrome with previous arterial or venous thromboembolism, current-generation mechanical or bioprosthetic aortic heart valve replacement.Note: Patients with mechanical aortic valve replacement and additional risk factors for thromboembolic events (atrial fibrillation, previous thromboembolism, LV dysfunction, hypercoagulable conditions) or an older generation mechanical AVR (i.e., ball in-Cage) or any mechanical MVR should have a INR therapeutic range of 2.5 to 3.5 (target INR of 3).Teresa FRYE, et al. Chest 2012, 141:7S-47SNishlinda RA, et al. [facility] 2017, 70: 252-289 Performed By: #### 3 4528-0 ####[facility]ORYCLIA [id number] [place] [address] PT Coag (PPP) [Time] 18.7 s High 9.7-13.0 [facility] Comment on above: Order Comment: Speci men Type: BLOOD SPECIMEN Performed By: #### 3 4528-0 ####[facility]ORYCLIA [id number] [place] [address] THERAPY NTon 10-29-2020 THERAPY NT Normal [facility] Basic metabolic 2000 panelon 10-28-2020 Anion gap [Moles/Vol] 10 mmol/L Normal 9-18 [facility] Comment on above: Order Comment: Speci men Type: BLOOD SPECIMEN Performed By: #### 2 4321-2, , 2776-08 ####[facility]ORYCLIA [id number] [place] [address] Calcium [Mass/Vol] 8.7 mg/dL Normal 8.5-10.2 [facility] Comment on above: Order Comment: Speci men Type: BLOOD SPECIMEN Performed By: #### 2 4321-2, , 2776-08 ####[facility]ORYCLIA [id number] [place] [address] Chloride [Moles/Vol] 106 mmol/L High 97-105 [facility] Comment on above: Order Comment: Speci men Type: BLOOD SPECIMEN Performed By: #### 2 4321-2, , 2776-08 ####[facility]ORYCLIA [id number] [place] [address] CO2 [Moles/Vol] 21 mmol/L Low 22-30 [facility] Comment on above: Order Comment: Speci men Type: BLOOD SPECIMEN Performed By: #### 2 4321-2, , 2776-08 ####[facility]ORYCLIA [id number] [place] [address] Creatinine [Mass/Vol] 0.88 mg/dL Normal 0.58-0.96 [facility] Comment on above: Order Comment: Speci men Type: BLOOD SPECIMEN Performed By: #### 2 4321-2, , 2776-08 ####[facility]ORYCLIA [id number] [place] [address] GFR/1.73 sq M.predicted MDRD (S/P/Bld) [Vol rate/Area] mL/min/{1.73_m2} Normal [facility] Comment on above: Order Comment: Speci men Type: BLOOD SPECIMEN Result Comment: >60e GFR (Estimated GFR) Units of measure: mL/min/1.73 meters squaredeGFR is derived from the reexpressed MDRD Study equation using the following parameters: serum creatinine, age, gender and race. The creatinine assay has been calibrated to be traceable to IDMS. An eGFR <60 mL/min/1.73m2 for >3 months is consistent with chronic kidney disease. Refer to KDOQI guidelines for clinical interpretation. In patients with unstable renal function, e.g. those with acute kidney injury, the eGFR may not accurately reflect actual GFR. Performed By: #### 2 4321-2, , 2776-08 ####[facility]ORYCLIA [id number] [place] [address] Glucose [Mass/Vol] 78 mg/dL Normal 74-99 [facility] Comment on above: Order Comment: Speci men Type: BLOOD SPECIMEN Result Comment: The [place] Diabetes [employer] (ADA) provides guidance for cutoff values for fasting glucose and random glucose. The ADA defines fasting as no caloric intake for at least 8 hours. Fasting plasma glucose results between 100 to 125 mg/dL indicate increased risk for diabetes (prediabetes).Fasting plasma glucose results greater than or equal to 126 mg/dL meet the criteria for diagnosis of diabetes. In the absence of unequivocal hyperglycemia, results should be confirmed by repeat testing. In a patient with classic symptoms of hyperglycemia or hyperglycemic crisis, random plasma glucose results greater than or equal to 200 mg/dL meet the criteria for diagnosis of diabetes.Reference: Standards of Medical Care in Diabetes 2016, [place] [employer]. Diabetes Care. 2016.39(Suppl 1). Performed By: #### 2 1-2, , 2776-08 ####[facility]ORYCLIA [id number] [place] [address] Potassium [Moles/Vol] 4.2 mmol/L Normal 3.7-5.1 [facility] Comment on above: Order Comment: Speci men Type: BLOOD SPECIMEN Performed By: #### 2 1-2, , 2776-08 ####[facility]ORYCLIA [id number] [place] [address] Sodium [Moles/Vol] 137 mmol/L Normal 136-144 [facility] Comment on above: Order Comment: Speci men Type: BLOOD SPECIMEN Performed By: #### 2 1-2, , 2776-08 ####[facility]ORYCLIA [id number] [place] [address] Urea nitrogen [Mass/Vol] 15 mg/dL Normal 7-21 [facility] Comment on above: Order Comment: Speci men Type: BLOOD SPECIMEN Performed By: #### 2 1-2, , 2776-08 ####[facility]ORYCLIA [id number] [place] [address] CONSULT PROGon 10-28-2020 CONSULT PROG Normal [facility] CONSULT PROG Normal [facility] HEMATOCRIT (HCT)on Hematocrit (Bld) [Volume fraction] 21.5 % Low 36.0-46.0 [facility] Comment on above: Order Comment: Speci men Type: BLOOD SPECIMEN Performed By: #### H GB, HCT ####[facility]ORYCLIA [id number] [place] [address] Hematocrit (Bld) [Volume fraction] 22.8 % Low 36.0-46.0 [facility] Comment on above: Order Comment: Speci men Type: BLOOD SPECIMEN Performed By: #### H GB, HCT ####[facility]ORYCLIA [id number] [place] [address] Hematocrit (Bld) [Volume fraction] 24.4 % Low 36.0-46.0 [facility] Comment on above: Order Comment: Speci men Type: BLOOD SPECIMEN Performed By: #### H CT, HGB ####[facility]ORYCLIA [id number] [place] [address] Hematocrit (Bld) [Volume fraction] 24.2 % Low 36.0-46.0 [facility] Comment on above: Order Comment: Speci men Type: BLOOD SPECIMEN Performed By: #### H CT, HGB ####[facility]ORYCLIA [id number] [place] [address] HEMOGLOBIN (HGB)on Hemoglobin (Bld) [Mass/Vol] 7.1 g/dL Low 11.5-15.5 [facility] Comment on above: Order Comment: Speci men Type: BLOOD SPECIMEN Performed By: #### H GB, HCT ####[facility]CLIA [id number] [place] [address] Hemoglobin (Bld) [Mass/Vol] 7.6 g/dL Low 11.5-15.5 [facility] Comment on above: Order Comment: Speci men Type: BLOOD SPECIMEN Performed By: #### H GB, HCT ####[facility]ORYCLIA [id number] [place] [address] Hemoglobin (Bld) [Mass/Vol] 8.0 g/dL Low 11.5-15.5 [facility] Comment on above: Order Comment: Speci men Type: BLOOD SPECIMEN Performed By: #### H CT, HGB ####[facility]ORYCLIA [id number] [place] [address] Hemoglobin (Bld) [Mass/Vol] 8.0 g/dL Low 11.5-15.5 [facility] Comment on above: Order Comment: Speci men Type: BLOOD SPECIMEN Performed By: #### H CT, HGB ####[facility]ORYCLIA [id number] [place] [address] Magnesium SerPl-mCncon 10-28 Magnesium [Mass/Vol] 1.8 mg/dL Normal 1.7-2.3 [facility] Comment on above: Order Comment: Speci men Type: BLOOD SPECIMEN Performed By: #### 2 4321-2, 36119-4, 2777-1 ####[facility]ORYCLIA [id number] [place] [address] NUTRITIONon 10-28-2020 NUTRITION Normal [facility] PT panel Coag (PPP)on 2020 INR Coag (PPP) [Relative time] 3.3 {INR} High 0.9-1.3 [facility] Comment on above: Order Comment: Speci men Type: BLOOD SPECIMEN Result Comment: Nicolasa min K Antagonist (VKA) Therapeutic Range: INR 2 to 3 (Target INR of 2.5)Note: For patients treated with VKA drugs, such as warfarin, the [place] [employer] 2012 Guideline recommends a therapeutic INR range of 2 to 3 (target INR of 2.5). This recommendation includes high-risk patients with antiphospholipid syndrome with previous arterial or venous thromboembolism, current-generation mechanical or bioprosthetic aortic heart valve replacement.Note: Patients with mechanical aortic valve replacement and additional risk factors for thromboembolic events (atrial fibrillation, previous thromboembolism, LV dysfunction, hypercoagulable conditions) or an older generation mechanical AVR (i.e., ball in-Cage) or any mechanical MVR should have a INR therapeutic range of 2.5 to 3.5 (target INR of 3).Teresa GH, et al. Chest 2012, 141:7S-47SNishimura RA, et al. [facility] 2017, 70: 252-289 Performed By: #### 3 4528-0 ####[facility] LABORATORYCLIA [id number] [place] [address] PT Coag (PPP) [Time] 32.4 s High 9.7-13.0 [facility] Comment on above: Order Comment: Speci men Type: BLOOD SPECIMEN Performed By: #### 3 4528-0 ####[facility] LABORATORYCLIA [id number] [place] [address] Phosphate SerPl-mCncon 10-28 Phosphate [Mass/Vol] 3.1 mg/dL Normal 2.7-4.8 [facility] Comment on above: Order Comment: Speci men Type: BLOOD SPECIMEN Performed By: #### 2 4321-2, , 2776-08 ####[facility] LABORATORYCLIA [id number] [place] [address] THERAPY NTon 10-28-2020 THERAPY NT Normal [facility] Basic metabolic 2000 panelon 10-27-2020 Anion gap [Moles/Vol] 10 mmol/L Normal 9-18 [facility] Comment on above: Order Comment: Speci men Type: BLOOD SPECIMEN Performed By: #### 2 4321-2, , 2776-08 ####[facility]ORATORYCLIA [id number] [place] [address] Calcium [Mass/Vol] 8.7 mg/dL Normal 8.5-10.2 [facility] Comment on above: Order Comment: Speci men Type: BLOOD SPECIMEN Performed By: #### 2 4321-2, , 2776- ####[facility]ATORYCLIA [id number] [place] [address] Chloride [Moles/Vol] 102 mmol/L Normal 97-105 [facility] Comment on above: Order Comment: Speci men Type: BLOOD SPECIMEN Performed By: #### 2 4321-2, , 2776- ####[facility]ORYCLIA [id number] [place] [address] CO2 [Moles/Vol] 22 mmol/L Normal 22-30 [facility] Comment on above: Order Comment: Speci men Type: BLOOD SPECIMEN Performed By: #### 2 4321-2, , 2776-08 ####[facility]ATORYCLIA [id number] [place] [address] Creatinine [Mass/Vol] 1.12 mg/dL High 0.58-0.96 [facility] Comment on above: Order Comment: Speci men Type: BLOOD SPECIMEN Performed By: #### 2 4321-2, , 2776-08 ####[facility]ORATORYCLIA [id number] [place] [address] GFR/1.73 sq M.predicted MDRD (S/P/Bld) [Vol rate/Area] mL/min/{1.73_m2} Normal [facility] Comment on above: Order Comment: Speci men Type: BLOOD SPECIMEN Result Comment: 51eG FR (Estimated GFR) Units of measure: mL/min/1.73 meters squaredeGFR is derived from the reexpressed MDRD Study equation using the following parameters: serum creatinine, age, gender and race. The creatinine assay has been calibrated to be traceable to IDMS. An eGFR <60 mL/min/1.73m2 for >3 months is consistent with chronic kidney disease. Refer to KDOQI guidelines for clinical interpretation. In patients with unstable renal function, e.g. those with acute kidney injury, the eGFR may not accurately reflect actual GFR. Performed By: #### 2 4321-2, , 2776-08 ####[facility]ORATORYCLIA [id number] [place] [address] Glucose [Mass/Vol] 90 mg/dL Normal 74-99 [facility] Comment on above: Order Comment: [facility] Type: BLOOD SPECIMEN Result Comment: The [place] Diabetes [employer] (ADA) provides guidance for cutoff values for fasting glucose and random glucose. The ADA defines fasting as no caloric intake for at least 8 hours. Fasting plasma glucose results between 100 to 125 mg/dL indicate increased risk for diabetes (prediabetes).Fasting plasma glucose results greater than or equal to 126 mg/dL meet the criteria for diagnosis of diabetes. In the absence of unequivocal hyperglycemia, results should be confirmed by repeat testing. In a patient with classic symptoms of hyperglycemia or hyperglycemic crisis, random plasma glucose results greater than or equal to 200 mg/dL meet the criteria for diagnosis of diabetes.Reference: Standards of Medical Care in Diabetes 2016, [place] [employer]. Diabetes Care. 2016.39(Suppl 1). Performed By: #### 2 4321-2, , 2776-08 ####[facility]ORATORYCLIA [id number] [place] [address] Potassium [Moles/Vol] 4.7 mmol/L Normal 3.7-5.1 [facility] Comment on above: Order Comment: Speci men Type: BLOOD SPECIMEN Performed By: #### 2 1-2, , 2776-08 ####[facility]ORATORYCLIA [id number] [place] [address] Sodium [Moles/Vol] 134 mmol/L Low 136-144 [facility] Comment on above: Order Comment: Speci men Type: BLOOD SPECIMEN Performed By: #### 2 1-2, , 2776-08 ####[facility]ORATORYCLIA [id number] [place] [address] Urea nitrogen [Mass/Vol] 27 mg/dL High 7-21 [facility] Comment on above: Order Comment: Speci men Type: BLOOD SPECIMEN Performed By: #### 2 1-2, , 2776-08 ####[facility]ORATORYCLIA [id number] [place] [address] CASE MANAGEMon 10-27-2020 CASE MANAGEM Normal [facility] CBC W Auto Differential pane l (Bld)on 10-27-2020 Basophils (Bld) [#/Vol] 0.07 10*3/uL Normal <0.11 [facility] Comment on above: Order Comment: Speci men Type: BLOOD SPECIMEN Performed By: #### 5 7021-8 ####[facility]ATORYCLIA [id number] [place] [address] Basophils/100 WBC (Bld) 0.6 % Normal [facility] Comment on above: Order Comment: Speci men Type: BLOOD SPECIMEN Performed By: #### 5 7021-8 ####[facility]ATORYCLIA [id number] [place] [address] Differential cell count method Nom (Bld) Auto Normal [facility] Comment on above: Order Comment: Speci men Type: BLOOD SPECIMEN Performed By: #### 5 7021-8 ####[facility]ORYCLIA [id number] [place] [address] Eosinophils (Bld) [#/Vol] 0.14 10*3/uL Normal <0.46 [facility] Comment on above: Order Comment: Speci men Type: BLOOD SPECIMEN Performed By: #### 5 7021-8 ####[facility]ATORYCLIA [id number] [place] [address] Eosinophils/100 WBC (Bld) 1.1 % Normal [facility] Comment on above: Order Comment: Speci men Type: BLOOD SPECIMEN Performed By: #### 5 7021-8 ####[facility]ATORYCLIA [id number] [place] [address] Erythrocyte distribution width (RBC) [Ratio] 14.0 % Normal 11.5-15.0 [facility] Comment on above: Order Comment: Speci men Type: BLOOD SPECIMEN Performed By: #### 5 7021-8 ####[facility]ORYCLIA [id number] [place] [address] Hematocrit (Bld) [Volume fraction] 22.1 % Low 36.0-46.0 [facility] Comment on above: Order Comment: Speci men Type: BLOOD SPECIMEN Performed By: #### 5 7021-8 ####[facility]ORYCLIA [id number] [place] [address] Hemoglobin (Bld) [Mass/Vol] 7.5 g/dL Low 11.5-15.5 [facility] Comment on above: Order Comment: Speci men Type: BLOOD SPECIMEN Performed By: #### 5 7021-8 ####[facility]ATORYCLIA [id number] [place] [address] IMMATURE GRAN % 0.8 % Normal [facility] Comment on above: Order Comment: Speci men Type: BLOOD SPECIMEN Performed By: #### 5 7021-8 ####[facility]ATORYCLIA [id number] [place] [address] IMMATURE GRAN ABS 0.10 k/uL High <0.10 [facility] Comment on above: Order Comment: Speci men Type: BLOOD SPECIMEN Performed By: #### 5 7021-8 ####[facility]ATORYCLIA [id number] [place] [address] Lymphocytes (Bld) [#/Vol] 2.06 10*3/uL Normal 1.00-4.00 [facility] Comment on above: Order Comment: Speci men Type: BLOOD SPECIMEN Performed By: #### 5 7021-8 ####[facility]ATORYCLIA [id number] [place] [address] Lymphocytes/100 WBC (Bld) 16.7 % Normal [facility] Comment on above: Order Comment: Speci men Type: BLOOD SPECIMEN Performed By: #### 5 7021-8 ####[facility]ORYCLIA [id number] [place] [address] MCH (RBC) [Entitic mass] 33.8 pg Normal 26.0-34.0 [facility] Comment on above: Order Comment: Speci men Type: BLOOD SPECIMEN Performed By: #### 5 7021-8 ####[facility]ORYCLIA [id number] [place] [address] MCHC (RBC) [Mass/Vol] 33.9 g/dL Normal 30.5-36.0 [facility] Comment on above: Order Comment: Speci men Type: BLOOD SPECIMEN Performed By: #### 5 7021-8 ####[facility]ORYCLIA [id number] [place] [address] MCV (RBC) [Entitic vol] 99.5 fL Normal 80.0-100.0 [facility] Comment on above: Order Comment: Speci men Type: BLOOD SPECIMEN Performed By: #### 5 7021-8 ####[facility]ORYCLIA [id number] [place] [address] Monocytes (Bld) [#/Vol] 0.85 10*3/uL Normal <0.87 [facility] Comment on above: Order Comment: Speci men Type: BLOOD SPECIMEN Performed By: #### 5 7021-8 ####[facility]ORYCLIA [id number] [place] [address] Monocytes/100 WBC (Bld) 6.9 % Normal [facility] Comment on above: Order Comment: Speci men Type: BLOOD SPECIMEN Performed By: #### 5 7021-8 ####[facility]ORYCLIA [id number] [place] [address] Neutrophils (Bld) [#/Vol] 9.09 10*3/uL High 1.45-7.50 [facility] Comment on above: Order Comment: Speci men Type: BLOOD SPECIMEN Performed By: #### 5 7021-8 ####[facility]ORYCLIA [id number] [place] [address] Neutrophils/100 WBC (Bld) 73.9 % Normal [facility] Comment on above: Order Comment: Speci men Type: BLOOD SPECIMEN Performed By: #### 5 7021-8 ####[facility]ORYCLIA [id number] [place] [address] Nucleated RBC (Bld) [#/Vol] 10*3/uL Normal <0.01 [facility] Comment on above: Order Comment: Speci men Type: BLOOD SPECIMEN Performed By: #### 5 7021-8 ####[facility]ORYCLIA [id number] [place] [address] Nucleated RBC/100 WBC (Bld) [Ratio] 0.0 /100 WBC Normal 0.0 [facility] Comment on above: Order Comment: Speci men Type: BLOOD SPECIMEN Performed By: #### 5 7021-8 ####[facility]ATORYCLIA [id number] [place] [address] Platelet mean volume (Bld) [Entitic vol] 10.5 fL Normal 9.0-12.7 [facility] Comment on above: Order Comment: Speci men Type: BLOOD SPECIMEN Performed By: #### 5 7021-8 ####[facility]ATORYCLIA [id number] [place] [address] Platelets (Bld) [#/Vol] 263 10*3/uL Normal 150-400 [facility] Comment on above: Order Comment: Speci men Type: BLOOD SPECIMEN Performed By: #### 5 7021-8 ####[facility]ATORYCLIA [id number] [place] [address] RBC (Bld) [#/Vol] 2.22 10*6/uL Low 3.90-5.20 [facility] Comment on above: Order Comment: Speci men Type: BLOOD SPECIMEN Performed By: #### 5 7021-8 ####[facility]ORATORYCLIA [id number] [place] [address] WBC (Bld) [#/Vol] 12.31 10*3/uL High 3.70-11.00 [facility] Comment on above: Order Comment: Speci men Type: BLOOD SPECIMEN Performed By: #### 5 7021-8 ####[facility]ATORYCLIA [id number] [place] [address] CBC panel Auto (Bld)on 10-27 Erythrocyte distribution width (RBC) [Ratio] 14.1 % Normal 11.5-15.0 [facility] Comment on above: Order Comment: Speci men Type: BLOOD SPECIMEN Performed By: #### 5 8410-2 ####[facility]ATORYCLIA [id number] [place] [address] Hematocrit (Bld) [Volume fraction] 20.9 % Low 36.0-46.0 [facility] Comment on above: Order Comment: Speci men Type: BLOOD SPECIMEN Performed By: #### 5 8410-2 ####[facility]ATORYCLIA [id number] [place] [address] Hemoglobin (Bld) [Mass/Vol] 7.0 g/dL Low 11.5-15.5 [facility] Comment on above: Order Comment: Speci men Type: BLOOD SPECIMEN Performed By: #### 5 8410-2 ####[facility]ATORYCLIA [id number] [place] [address] MCH (RBC) [Entitic mass] 33.2 pg Normal 26.0-34.0 [facility] Comment on above: Order Comment: Speci men Type: BLOOD SPECIMEN Performed By: #### 5 8410-2 ####[facility]ATORYCLIA [id number] [place] [address] MCHC (RBC) [Mass/Vol] 33.5 g/dL Normal 30.5-36.0 [facility] Comment on above: Order Comment: Speci men Type: BLOOD SPECIMEN Performed By: #### 5 8410-2 ####[facility]ATORYCLIA [id number] [place] [address] MCV (RBC) [Entitic vol] 99.1 fL Normal 80.0-100.0 [facility] Comment on above: Order Comment: Speci men Type: BLOOD SPECIMEN Performed By: #### 5 8410-2 ####[facility]ORYCLIA [id number] [place] [address] Nucleated RBC (Bld) [#/Vol] 10*3/uL Normal <0.01 [facility] Comment on above: Order Comment: Speci men Type: BLOOD SPECIMEN Performed By: #### 5 8410-2 ####[facility]ATORYCLIA [id number] [place] [address] Platelet mean volume (Bld) [Entitic vol] 10.2 fL Normal 9.0-12.7 [facility] Comment on above: Order Comment: Speci men Type: BLOOD SPECIMEN Performed By: #### 5 8410-2 ####[facility]ATORYCLIA [id number] [place] [address] Platelets (Bld) [#/Vol] 240 10*3/uL Normal 150-400 [facility] Comment on above: Order Comment: Speci men Type: BLOOD SPECIMEN Performed By: #### 5 8410-2 ####[facility]ORYCLIA [id number] [place] [address] RBC (Bld) [#/Vol] 2.11 10*6/uL Low 3.90-5.20 [facility] Comment on above: Order Comment: Speci men Type: BLOOD SPECIMEN Performed By: #### 5 8410-2 ####[facility]ORYCLIA [id number] [place] [address] WBC (Bld) [#/Vol] 11.16 10*3/uL High 3.70-11.00 [facility] Comment on above: Order Comment: Speci men Type: BLOOD SPECIMEN Performed By: #### 5 8410-2 ####[facility]ATORYCLIA [id number] [place] [address] CONSULTon 10-27-2020 CONSULT Normal [facility] CONSULT Normal [facility] CONSULT PROGon 10-27-2020 CONSULT PROG Normal [facility] HEMATOCRIT (HCT)on 1 Hematocrit (Bld) [Volume fraction] 25.3 % Low 36.0-46.0 [facility] Comment on above: Order Comment: Speci men Type: BLOOD SPECIMEN Performed By: #### H CT, HGB ####[facility]ATORYCLIA [id number] [place] [address] Hematocrit (Bld) [Volume fraction] 21.4 % Low 36.0-46.0 [facility] Comment on above: Order Comment: Speci men Type: BLOOD SPECIMEN Performed By: #### H GB, HCT ####[facility]ATORYCLIA [id number] [place] [address] HEMOGLOBIN (HGB)on 1 Hemoglobin (Bld) [Mass/Vol] 8.4 g/dL Low 11.5-15.5 [facility] Comment on above: Order Comment: Speci men Type: BLOOD SPECIMEN Performed By: #### H CT, HGB ####[facility]ATORYCLIA [id number] [place] [address] Hemoglobin (Bld) [Mass/Vol] 7.3 g/dL Low 11.5-15.5 [facility] Comment on above: Order Comment: Speci men Type: BLOOD SPECIMEN Performed By: #### H GB, HCT ####[facility]ATORYCLIA [id number] [place] [address] Magnesium SerPl-mCncon 10-27 Magnesium [Mass/Vol] 1.8 mg/dL Normal 1.7-2.3 [facility] Comment on above: Order Comment: Speci men Type: BLOOD SPECIMEN Performed By: #### 2 4321-2, 57230-0, 2777-1 ####[facility]ATORYCLIA [id number] [place] [address] PT panel Coag (PPP)on 2020 INR Coag (PPP) [Relative time] 3.4 {INR} High 0.9-1.3 [facility] Comment on above: Order Comment: Speci men Type: BLOOD SPECIMEN Result Comment: Nicolasa min K Antagonist (VKA) Therapeutic Range: INR 2 to 3 (Target INR of 2.5)Note: For patients treated with VKA drugs, such as warfarin, the [place] [employer] 2012 Guideline recommends a therapeutic INR range of 2 to 3 (target INR of 2.5). This recommendation includes high-risk patients with antiphospholipid syndrome with previous arterial or venous thromboembolism, current-generation mechanical or bioprosthetic aortic heart valve replacement.Note: Patients with mechanical aortic valve replacement and additional risk factors for thromboembolic events (atrial fibrillation, previous thromboembolism, LV dysfunction, hypercoagulable conditions) or an older generation mechanical AVR (i.e., ball in-Cage) or any mechanical MVR should have a INR therapeutic range of 2.5 to 3.5 (target INR of 3).Teresa GH, et al. Chest 2012, 141:7S-47SNishlinda RA, et al. [facility] 2017, 70: 252-289 Performed By: #### 3 4528-0 ####[facility]ATORYCLIA [id number] [place] [address] PT Coag (PPP) [Time] 32.9 s High 9.7-13.0 [facility] Comment on above: Order Comment: Speci men Type: BLOOD SPECIMEN Performed By: #### 3 4528-0 ####[facility]ORYCLIA [id number] [place] [address] INR Coag (PPP) [Relative time] 3.2 {INR} High 0.9-1.3 [facility] Comment on above: Order Comment: Speci men Type: BLOOD SPECIMEN Result Comment: Nicolasa min K Antagonist (VKA) Therapeutic Range: INR 2 to 3 (Target INR of 2.5)Note: For patients treated with VKA drugs, such as warfarin, the [place] [employer] 2012 Guideline recommends a therapeutic INR range of 2 to 3 (target INR of 2.5). This recommendation includes high-risk patients with antiphospholipid syndrome with previous arterial or venous thromboembolism, current-generation mechanical or bioprosthetic aortic heart valve replacement.Note: Patients with mechanical aortic valve replacement and additional risk factors for thromboembolic events (atrial fibrillation, previous thromboembolism, LV dysfunction, hypercoagulable conditions) or an older generation mechanical AVR (i.e., ball in-Cage) or any mechanical MVR should have a INR therapeutic range of 2.5 to 3.5 (target INR of 3).Teresa GH, et al. Chest 2012, 141:7S-47SNishimura RA, et al. [facility] 2017, 70: 252-289 Performed By: #### 1 4979-9, 92623-5 ####[facility]ORYCLIA [id number] [place] [address] PT Coag (PPP) [Time] 31.3 s High 9.7-13.0 [facility] Comment on above: Order Comment: Speci men Type: BLOOD SPECIMEN Performed By: #### 1 4979-9, 13847-7 ####[facility]ORYCLIA [id number] [place] [address] Phosphate SerPl-mCncon 10-27 Phosphate [Mass/Vol] 4.3 mg/dL Normal 2.7-4.8 [facility] Comment on above: Order Comment: Speci men Type: BLOOD SPECIMEN Performed By: #### 2 4321-2, 53272-7, 2777-1 ####[facility]ORYCLIA [id number] [place] [address] TYPE AND SCREENon 10-27-2020 ABO AB Normal [facility] Comment on above: Order Comment: Speci men Type: BLOOD SPECIMEN Performed By: #### T SCR ####[facility]ANKCLIA [id number] HISTORICAL AB SCR STATUS Negative Normal [facility] Comment on above: Order Comment: Speci men Type: BLOOD SPECIMEN Performed By: #### T SCR ####[facility]ANKCLIA [id number] Rh Nom (Bld) Positive Normal [facility] Comment on above: Order Comment: Speci men Type: BLOOD SPECIMEN Performed By: #### T SCR ####[facility]ANKCLIA [id number] TYPE AND SCREEN EXPIRATION 10/30/2020 23:59 Normal [facility] Comment on above: Order Comment: Speci men Type: BLOOD SPECIMEN Performed By: #### T SCR ####[facility]ANKCLIA [id number] US DOPPLER LTDon 10-27-2020 US DOPPLER LTD Normal [facility] US PSEUDOANEURYSMon 10-28-19 US PSEUDOANEURYSM Final Report DATE OF EXAM: Oct 27 2020 1:19PM [facility] 1010 - US PSEUDOANEURYSM / PROCEDURE REASON: Soft tissue hematoma, palpable, spontaneous, abdomen xray nondiagnostic Physician Interpretation ULTRASOUND RIGHT GROIN CLINICAL INDICATION: Evaluate for pseudoaneurysm. Palpable right groin hematoma. COMPARISON: CT abdomen/pelvis 10/26/2020. FINDINGS/ IMPRESSION: Grayscale sonography with color and spectral Doppler interrogation. Corresponding to the site of bruising in the right groin there is a 3.8 x 2.8 x 3.5 cm heterogeneous hypoechoic collection compatible with hematoma. On the 10/26/2020 CT, this measured approximately 2.7 x 0.5 x 2.2 cm. No associated blood flow on color Doppler interrogation. There is no visible communication with the common femoral artery. There is no pseudoaneurysm. Baster Hand: PSCB Transcribe Date/Time: Oct 27 2020 1:56P Dictated by : TODD HARVEY MD This examination was interpreted and the report reviewed and electronically signed by: TODD HARVEY MD on Oct 27 2020 2:03PM EST Normal [facility] aPTT PPPon 10-27-2020 aPTT Coag (PPP) [Time] 44.4 s High 23.0-32.4 [facility] Comment on above: Order Comment: Speci men Type: BLOOD SPECIMEN Performed By: #### 1 4979-9, 22755-7 ####[facility]ATORYCLIA [id number] [place] [address] ALLIED HEALTHon 10-26-2020 ALLIED HEALTH Normal [facility] Basic metabolic 2000 panelon 10-26-2020 Anion gap [Moles/Vol] 11 mmol/L Normal 9-18 [facility] Comment on above: Order Comment: Speci men Type: BLOOD SPECIMEN Performed By: #### 2 4321-2, , 2776-08 ####[facility]ATORYCLIA [id number] [place] [address] Calcium [Mass/Vol] 9.6 mg/dL Normal 8.5-10.2 [facility] Comment on above: Order Comment: Speci men Type: BLOOD SPECIMEN Performed By: #### 2 4321-2, , 2776-08 ####[facility]ORYCLIA [id number] [place] [address] Chloride [Moles/Vol] 102 mmol/L Normal 97-105 [facility] Comment on above: Order Comment: Speci men Type: BLOOD SPECIMEN Performed By: #### 2 4321-2, , 2776-08 ####[facility]ORYCLIA [id number] [place] [address] CO2 [Moles/Vol] 22 mmol/L Normal 22-30 [facility] Comment on above: Order Comment: Speci men Type: BLOOD SPECIMEN Performed By: #### 2 4321-2, , 2776-08 ####[facility]ORYCLIA [id number] [place] [address] Creatinine [Mass/Vol] 1.27 mg/dL High 0.58-0.96 [facility] Comment on above: Order Comment: Speci men Type: BLOOD SPECIMEN Performed By: #### 2 4321-2, , 2776-08 ####[facility]ORYCLIA [id number] [place] [address] GFR/1.73 sq M.predicted MDRD (S/P/Bld) [Vol rate/Area] 53 mL/min/{1.73_m2} Normal [facility] Comment on above: Order Comment: Speci men Type: BLOOD SPECIMEN Result Comment: 44eG FR (Estimated GFR) Units of measure: mL/min/1.73 meters squaredeGFR is derived from the reexpressed MDRD Study equation using the following parameters: serum creatinine, age, gender and race. The creatinine assay has been calibrated to be traceable to IDMS. An eGFR <60 mL/min/1.73m2 for >3 months is consistent with chronic kidney disease. Refer to [place]DOQI guidelines for clinical interpretation. In patients with unstable renal function, e.g. those with acute kidney injury, the eGFR may not accurately reflect actual GFR. Performed By: #### 2 4321-2, , 2776-08 ####[facility]ORYCLIA [id number] [place] [address] Glucose [Mass/Vol] 111 mg/dL High 74-99 [facility] Comment on above: Order Comment: [facility] Type: BLOOD SPECIMEN Result Comment: The [place] Diabetes [employer] (ADA) provides guidance for cutoff values for fasting glucose and random glucose. The ADA defines fasting as no caloric intake for at least 8 hours. Fasting plasma glucose results between 100 to 125 mg/dL indicate increased risk for diabetes (prediabetes).Fasting plasma glucose results greater than or equal to 126 mg/dL meet the criteria for diagnosis of diabetes. In the absence of unequivocal hyperglycemia, results should be confirmed by repeat testing. In a patient with classic symptoms of hyperglycemia or hyperglycemic crisis, random plasma glucose results greater than or equal to 200 mg/dL meet the criteria for diagnosis of diabetes.Reference: Standards of Medical Care in Diabetes 2016, [place] [employer]. Diabetes Care. 2016.39(Suppl 1). Performed By: #### 2 4321-2, , 2776-08 ####[facility]ATORYCLIA [id number] [place] [address] Potassium [Moles/Vol] 5.6 mmol/L High 3.7-5.1 [facility] Comment on above: Order Comment: Speci men Type: BLOOD SPECIMEN Performed By: #### 2 4321-2, , 2776-08 ####[facility]ORATORYCLIA [id number] [place] [address] Sodium [Moles/Vol] 135 mmol/L Low 136-144 [facility] Comment on above: Order Comment: Speci men Type: BLOOD SPECIMEN Performed By: #### 2 4321-2, , 2776-08 ####[facility]ATORYCLIA [id number] [place] [address] Urea nitrogen [Mass/Vol] 22 mg/dL High 7-21 [facility] Comment on above: Order Comment: Speci men Type: BLOOD SPECIMEN Performed By: #### 2 4321-2, , 2776-08 ####[facility]ATORYCLIA [id number] [place] [address] CASE MGT INIT ASSESon 2020 CASE MGT INIT ASSES Normal [facility] CBC panel Auto (Bld)on 10-26 Erythrocyte distribution width (RBC) [Ratio] 13.7 % Normal 11.5-15.0 [facility] Comment on above: Order Comment: Speci men Type: BLOOD SPECIMEN Performed By: #### 5 8410-2 ####[facility]ATORYCLIA [id number] [place] [address] Hematocrit (Bld) [Volume fraction] 29.3 % Low 36.0-46.0 [facility] Comment on above: Order Comment: Speci men Type: BLOOD SPECIMEN Performed By: #### 5 8410-2 ####[facility]ATORYCLIA [id number] [place] [address] Hemoglobin (Bld) [Mass/Vol] 9.7 g/dL Low 11.5-15.5 [facility] Comment on above: Order Comment: Speci men Type: BLOOD SPECIMEN Performed By: #### 5 8410-2 ####[facility]ATORYCLIA [id number] [place] [address] MCH (RBC) [Entitic mass] 32.9 pg Normal 26.0-34.0 [facility] Comment on above: Order Comment: Speci men Type: BLOOD SPECIMEN Performed By: #### 5 8410-2 ####[facility]ATORYCLIA [id number] [place] [address] MCHC (RBC) [Mass/Vol] 33.1 g/dL Normal 30.5-36.0 [facility] Comment on above: Order Comment: Speci men Type: BLOOD SPECIMEN Performed By: #### 5 8410-2 ####[facility]ATORYCLIA [id number] [place] [address] MCV (RBC) [Entitic vol] 99.3 fL Normal 80.0-100.0 [facility] Comment on above: Order Comment: Speci men Type: BLOOD SPECIMEN Performed By: #### 5 8410-2 ####[facility]ATORYCLIA [id number] [place] [address] Nucleated RBC (Bld) [#/Vol] 10*3/uL Normal <0.01 [facility] Comment on above: Order Comment: Speci men Type: BLOOD SPECIMEN Performed By: #### 5 8410-2 ####[facility]ORYCLIA [id number] [place] [address] Platelet mean volume (Bld) [Entitic vol] 10.2 fL Normal 9.0-12.7 [facility] Comment on above: Order Comment: Speci men Type: BLOOD SPECIMEN Performed By: #### 5 8410-2 ####[facility]ATORYCLIA [id number] [place] [address] Platelets (Bld) [#/Vol] 318 10*3/uL Normal 150-400 [facility] Comment on above: Order Comment: Speci men Type: BLOOD SPECIMEN Performed By: #### 5 8410-2 ####[facility]ATORYCLIA [id number] [place] [address] RBC (Bld) [#/Vol] 2.95 10*6/uL Low 3.90-5.20 [facility] Comment on above: Order Comment: Speci men Type: BLOOD SPECIMEN Performed By: #### 5 8410-2 ####[facility]ORYCLIA [id number] [place] [address] WBC (Bld) [#/Vol] 13.01 10*3/uL High 3.70-11.00 [facility] Comment on above: Order Comment: Speci men Type: BLOOD SPECIMEN Performed By: #### 5 8410-2 ####[facility]ATORYCLIA [id number] [place] [address] CONSULT PROGon 10-26-2020 CONSULT PROG Normal [facility] CT ABD/PEL WO IVCONon 2020 CT ABD/PEL WO IVCON Final Report DATE OF EXAM: Oct 26 2020 8:08PM [facility] 0531 - CT ABD/PEL WO IVCON / PROCEDURE REASON: Abdominal pain, acute, nonlocalized Physician Interpretation EXAMINATION: CT ABDOMEN AND PELVIS WITHOUT IV CONTRAST CLINICAL HISTORY: Abdominal pain, nonlocalized TECHNIQUE: Non-IV contrast imaging of the abdomen and pelvis was performed using standard technique, scanning from just above the dome of the diaphragm to the symphysis pubis. Unenhanced imaging is limited for the evaluation of some intra-abdominal and pelvic pathology. MQ: CTAPWO_3 Contrast: IV: None Oral: 900 ml of READI-CAT 2 CT Radiation dose: Integrated Dose-length product (DLP) for this visit = [address] Dose Reduction Employed: Automated exposure control(AEC) and iterative recon COMPARISON: CT of the abdomen and pelvis 05/17/2021 and prior RESULT: Abdomen / Pelvis: Liver: Unremarkable. Biliary: Cholelithiasis without evidence of acute inflammation. Spleen: No splenomegaly. Pancreas: Unremarkable. Adrenals: No mass. Kidneys: No hydronephrosis or nephrolithiasis. The 1.3 cm cyst is present in the superior left renal pole and a smaller cyst in the interpolar region. GI Tract: No bowel dilation. No evidence of bowel obstruction. The left colonic anastomosis is grossly unremarkable. Appendix is normal. Lymph Nodes: No lymphadenopathy. Mesentery/peritoneum: No ascites. Retroperitoneum: No mass. Vasculature: Diffuse atherosclerotic calcifications. Pelvis: No mass or ascites. Uterus and adnexa are unremarkable. Bones/Soft Tissues: Developing asymmetric thickening of the right rectus abdominis muscle with a 5.7 x 5.9 x 14 cm hematoma with heterogeneous attenuation, and underlying associated stranding in the perivesical space and right lower quadrant. No acute osseous abnormalities. Lower thorax: Partially imaged pacer lead terminating in the right ventricular apex. Mild hypoattenuation of the blood pool in the left ventricle compared to the ventricular wisdom suggesting anemia. [employer] (topogram) images: No additional findings. IMPRESSION: 1. Interval development of a large intramuscular hematoma in the right rectus abdominis muscle. There is mild underlying mass effect and fat stranding predominantly in the right lower quadrant. 2. Cholelithiasis without evidence of acute inflammation. 3. Mild colonic diverticulosis. Intact anastomosis. URGENT RESULTS Acuity: Urgent Communication: Communicated with Dr Brar on 10/27/2020 at 10:40 AM via verbal communication. Baster Hand: WALLY Transcribe Date/Time: Oct 27 2020 8:26A Dictated by : ELLIOTT DILL MD This examination was interpreted and the report reviewed and electronically signed by: ELLIOTT DILL MD on Oct 27 2020 11:13AM EST Normal [facility] Magnesium SerPl-mCncon 10-26 Magnesium [Mass/Vol] 1.8 mg/dL Normal 1.7-2.3 [facility] Comment on above: Order Comment: Speci men Type: BLOOD SPECIMEN Performed By: #### 2 4321-2, 37547-6, 2777-1 ####[facility]ORATORYCLIA [id number] [place] [address] NURSING PROGon 10-26-2020 NURSING PROG Normal [facility] NURSING PROG Normal [facility] NURSING PROG Normal [facility] POTASSIUM BLDon 10-26-2020 Potassium [Moles/Vol] 4.9 mmol/L Normal 3.7-5.1 [facility] Comment on above: Order Comment: Speci men Type: BLOOD SPECIMEN Performed By: #### K 1 ####[facility]ATORYCLIA [id number] [place] [address] PT EDon 10-26-2020 PT ED Normal [facility] PT panel Coag (PPP)on 2020 INR Coag (PPP) [Relative time] 1.7 {INR} High 0.9-1.3 [facility] Comment on above: Order Comment: Speci men Type: BLOOD SPECIMEN Result Comment: Nicolasa min K Antagonist (VKA) Therapeutic Range: INR 2 to 3 (Target INR of 2.5)Note: For patients treated with VKA drugs, such as warfarin, the [place] [employer] 2012 Guideline recommends a therapeutic INR range of 2 to 3 (target INR of 2.5). This recommendation includes high-risk patients with antiphospholipid syndrome with previous arterial or venous thromboembolism, current-generation mechanical or bioprosthetic aortic heart valve replacement.Note: Patients with mechanical aortic valve replacement and additional risk factors for thromboembolic events (atrial fibrillation, previous thromboembolism, LV dysfunction, hypercoagulable conditions) or an older generation mechanical AVR (i.e., ball in-Cage) or any mechanical MVR should have a INR therapeutic range of 2.5 to 3.5 (target INR of 3).Teresa GH, et al. Chest 2012, 141:7S-47SNishimura RA, et al. [facility] 2017, 70: 252-289 Performed By: #### 1 4979-9, 87170-1 ####[facility]ATORYCLIA [id number] [place] [address] PT Coag (PPP) [Time] 16.8 s High 9.7-13.0 [facility] Comment on above: Order Comment: Speci men Type: BLOOD SPECIMEN Performed By: #### 1 4979-9, 36516-7 ####[facility]ORYCLIA [id number] [place] [address] Phosphate SerPl-mCncon 10-26 Phosphate [Mass/Vol] 6.5 mg/dL High 2.7-4.8 [facility] Comment on above: Order Comment: Speci men Type: BLOOD SPECIMEN Performed By: #### 2 4321-2, 97373-3, 2777-1 ####[facility]ORYCLIA [id number] [place] [address] THERAPY NTon 10-26-2020 THERAPY NT Normal [facility] aPTT PPPon 10-26-2020 aPTT Coag (PPP) [Time] 79.4 s High 23.0-32.4 [facility] Comment on above: Order Comment: Speci men Type: BLOOD SPECIMEN Performed By: #### 1 4979-9 ####[facility]ORYCLIA [id number] [place] [address] aPTT Coag (PPP) [Time] 38.7 s High 23.0-32.4 [facility] Comment on above: Order Comment: Speci men Type: BLOOD SPECIMEN Performed By: #### 1 4979-9 ####[facility]ORYCLIA [id number] [place] [address] aPTT Coag (PPP) [Time] 45.1 s High 23.0-32.4 [facility] Comment on above: Order Comment: Speci men Type: BLOOD SPECIMEN Performed By: #### 1 4979-9 ####[facility]ORYCLIA [id number] [place] [address] aPTT Coag (PPP) [Time] 97.7 s High 23.0-32.4 [facility] Comment on above: Order Comment: Speci men Type: BLOOD SPECIMEN Performed By: #### 1 4979-9 ####[facility]ORYCLIA [id number] [place] [address] aPTT Coag (PPP) [Time] 41.2 s High 23.0-32.4 [facility] Comment on above: Order Comment: Speci men Type: BLOOD SPECIMEN Performed By: #### 1 4979-9, 45601-1 ####[facility]ATORYCLIA [id number] [place] [address] ALLIED HEALTHon 10-25-2020 ALLIED HEALTH Normal [facility] Basic metabolic 2000 panelon 10-25-2020 Anion gap [Moles/Vol] 11 mmol/L Normal 9-18 [facility] Comment on above: Order Comment: Speci men Type: BLOOD SPECIMEN Performed By: #### 2 4321-2, , 2776-08 ####[facility]ATORYCLIA [id number] [place] [address] Calcium [Mass/Vol] 9.4 mg/dL Normal 8.5-10.2 [facility] Comment on above: Order Comment: Speci men Type: BLOOD SPECIMEN Performed By: #### 2 4321-2, , 2776-08 ####[facility]ORYCLIA [id number] [place] [address] Chloride [Moles/Vol] 103 mmol/L Normal 97-105 [facility] Comment on above: Order Comment: Speci men Type: BLOOD SPECIMEN Performed By: #### 2 4321-2, , 2776-08 ####[facility]ORYCLIA [id number] [place] [address] CO2 [Moles/Vol] 23 mmol/L Normal 22-30 [facility] Comment on above: Order Comment: Speci men Type: BLOOD SPECIMEN Performed By: #### 2 4321-2, , 2776-08 ####[facility]ORYCLIA [id number] [place] [address] Creatinine [Mass/Vol] 0.95 mg/dL Normal 0.58-0.96 [facility] Comment on above: Order Comment: Speci men Type: BLOOD SPECIMEN Performed By: #### 2 4321-2, , 2776-08 ####[facility]ATORYCLIA [id number] [place] [address] GFR/1.73 sq M.predicted MDRD (S/P/Bld) [Vol rate/Area] mL/min/{1.73_m2} Normal [facility] Comment on above: Order Comment: Speci men Type: BLOOD SPECIMEN Result Comment: >60e GFR (Estimated GFR) Units of measure: mL/min/1.73 meters squaredeGFR is derived from the reexpressed MDRD Study equation using the following parameters: serum creatinine, age, gender and race. The creatinine assay has been calibrated to be traceable to IDMS. An eGFR <60 mL/min/1.73m2 for >3 months is consistent with chronic kidney disease. Refer to KDOQI guidelines for clinical interpretation. In patients with unstable renal function, e.g. those with acute kidney injury, the eGFR may not accurately reflect actual GFR. Performed By: #### 2 4321-2, , 2776-08 ####[facility]ATORYCLIA [id number] [place] [address] Glucose [Mass/Vol] 87 mg/dL Normal 74-99 [facility] Comment on above: Order Comment: Speci men Type: BLOOD SPECIMEN Result Comment: The [place] Diabetes [employer] (ADA) provides guidance for cutoff values for fasting glucose and random glucose. The ADA defines fasting as no caloric intake for at least 8 hours. Fasting plasma glucose results between 100 to 125 mg/dL indicate increased risk for diabetes (prediabetes).Fasting plasma glucose results greater than or equal to 126 mg/dL meet the criteria for diagnosis of diabetes. In the absence of unequivocal hyperglycemia, results should be confirmed by repeat testing. In a patient with classic symptoms of hyperglycemia or hyperglycemic crisis, random plasma glucose results greater than or equal to 200 mg/dL meet the criteria for diagnosis of diabetes.Reference: Standards of Medical Care in Diabetes 2016, [place] [employer]. Diabetes Care. 2016.39(Suppl 1). Performed By: #### 2 4321-2, , 2776-08 ####[facility]ATORYCLIA [id number] [place] [address] Potassium [Moles/Vol] 4.5 mmol/L Normal 3.7-5.1 [facility] Comment on above: Order Comment: Speci men Type: BLOOD SPECIMEN Performed By: #### 2 4321-2, 55111-9, 2776-1 ####[facility]ORYCLIA [id number] [place] [address] Sodium [Moles/Vol] 137 mmol/L Normal 136-144 [facility] Comment on above: Order Comment: Speci men Type: BLOOD SPECIMEN Performed By: #### 2 4321-2, , 2776- ####[facility]ATORYCLIA [id number] [place] [address] Urea nitrogen [Mass/Vol] 15 mg/dL Normal -21 [facility] Comment on above: Order Comment: Speci men Type: BLOOD SPECIMEN Performed By: #### 2 4321-2, , 2776-08 ####[facility]ATORYCLIA [id number] [place] [address] CASE MANAGEMon 10-25-2020 CASE MANAGEM Normal [facility] CBC panel Auto (Bld)on 10-25 Erythrocyte distribution width (RBC) [Ratio] 13.7 % Normal 11.5-15.0 [facility] Comment on above: Order Comment: Speci men Type: BLOOD SPECIMEN Performed By: #### 5 8410-2 ####[facility]ORYCLIA [id number] [place] [address] Hematocrit (Bld) [Volume fraction] 33.8 % Low 36.0-46.0 [facility] Comment on above: Order Comment: Speci men Type: BLOOD SPECIMEN Performed By: #### 5 8410-2 ####[facility]ORYCLIA [id number] [place] [address] Hemoglobin (Bld) [Mass/Vol] 11.4 g/dL Low 11.5-15.5 [facility] Comment on above: Order Comment: Speci men Type: BLOOD SPECIMEN Performed By: #### 5 8410-2 ####[facility]ORYCLIA [id number] [place] [address] MCH (RBC) [Entitic mass] 33.1 pg Normal 26.0-34.0 [facility] Comment on above: Order Comment: Speci men Type: BLOOD SPECIMEN Performed By: #### 5 8410-2 ####[facility]ORYCLIA [id number] [place] [address] MCHC (RBC) [Mass/Vol] 33.7 g/dL Normal 30.5-36.0 [facility] Comment on above: Order Comment: Speci men Type: BLOOD SPECIMEN Performed By: #### 5 8410-2 ####[facility]ORYCLIA [id number] [place] [address] MCV (RBC) [Entitic vol] 98.3 fL Normal 80.0-100.0 [facility] Comment on above: Order Comment: Speci men Type: BLOOD SPECIMEN Performed By: #### 5 8410-2 ####[facility]ORYCLIA [id number] [place] [address] Nucleated RBC (Bld) [#/Vol] 10*3/uL Normal <0.01 [facility] Comment on above: Order Comment: Speci men Type: BLOOD SPECIMEN Performed By: #### 5 8410-2 ####[facility]ORYCLIA [id number] [place] [address] Platelet mean volume (Bld) [Entitic vol] 9.8 fL Normal 9.0-12.7 [facility] Comment on above: Order Comment: Speci men Type: BLOOD SPECIMEN Performed By: #### 5 8410-2 ####[facility]ORYCLIA [id number] [place] [address] Platelets (Bld) [#/Vol] 287 10*3/uL Normal 150-400 [facility] Comment on above: Order Comment: Speci men Type: BLOOD SPECIMEN Performed By: #### 5 8410-2 ####[facility]ORYCLIA [id number] [place] [address] RBC (Bld) [#/Vol] 3.44 10*6/uL Low 3.90-5.20 [facility] Comment on above: Order Comment: Speci men Type: BLOOD SPECIMEN Performed By: #### 5 8410-2 ####[facility]ORYCLIA [id number] [place] [address] WBC (Bld) [#/Vol] 7.94 10*3/uL Normal 3.70-11.00 [facility] Comment on above: Order Comment: Speci men Type: BLOOD SPECIMEN Performed By: #### 5 8410-2 ####[facility]ORYCLIA [id number] [place] [address] CONSULT PROGon 10-25-2020 CONSULT PROG Normal [facility] Magnesium SerPl-mCncon 10-25 Magnesium [Mass/Vol] 1.7 mg/dL Normal 1.7-2.3 [facility] Comment on above: Order Comment: Speci men Type: BLOOD SPECIMEN Performed By: #### 2 4321-2, 74799-2, 2777-1 ####[facility]ORYCLIA [id number] [place] [address] NURSING PROGon 10-25-2020 NURSING PROG Normal [facility] PT panel Coag (PPP)on 2020 INR Coag (PPP) [Relative time] 1.3 {INR} Normal 0.9-1.3 [facility] Comment on above: Order Comment: Speci men Type: BLOOD SPECIMEN Result Comment: Nicolasa min K Antagonist (VKA) Therapeutic Range: INR 2 to 3 (Target INR of 2.5)Note: For patients treated with VKA drugs, such as warfarin, the [place] [employer] 2012 Guideline recommends a therapeutic INR range of 2 to 3 (target INR of 2.5). This recommendation includes high-risk patients with antiphospholipid syndrome with previous arterial or venous thromboembolism, current-generation mechanical or bioprosthetic aortic heart valve replacement.Note: Patients with mechanical aortic valve replacement and additional risk factors for thromboembolic events (atrial fibrillation, previous thromboembolism, LV dysfunction, hypercoagulable conditions) or an older generation mechanical AVR (i.e., ball in-Cage) or any mechanical MVR should have a INR therapeutic range of 2.5 to 3.5 (target INR of 3).Teresa GH, et al. Chest 2012, 141:7S-47SNishimkarthik RA, et al. [facility] 2017, 70: 252-289 Performed By: #### 3 4528-0, 70194-3 ####[facility]ORYCLIA [id number] [place] [address] PT Coag (PPP) [Time] 13.1 s High 9.7-13.0 [facility] Comment on above: Order Comment: Speci men Type: BLOOD SPECIMEN Performed By: #### 3 4528-0, 10453-4 ####[facility]ORYCLIA [id number] [place] [address] Phosphate SerPl-mCncon 10-25 Phosphate [Mass/Vol] 4.8 mg/dL Normal 2.7-4.8 [facility] Comment on above: Order Comment: Speci men Type: BLOOD SPECIMEN Performed By: #### 2 4321-2, 28434-3, 2777-1 ####[facility]ORYCLIA [id number] [place] [address] THERAPY NTon 10-25-2020 THERAPY NT Normal [facility] XR ABDOMEN 1V SUPINEon 10-25 XR ABDOMEN 1V SUPINE Final Report DATE OF EXAM: Oct 25 2020 7:30PM AKX [id number] - XR ABDOMEN 1V SUPINE / PROCEDURE REASON: Abd pain, unspecified Physician Interpretation EXAMINATION: XR ABDOMEN 1V SUPINE HISTORY: abd pain Abd pain, unspecified. TECHNIQUE: XR ABDOMEN 1V SUPINE Laterality: NOT APPLICABLE Number of different views (projections): 1 M: XB_1 COMPARISON: CT abdomen 10/15/2020 RESULT: Nonspecific nonobstructive bowel gas pattern. No urinary calculi are seen. No other significant abnormality. IMPRESSION: No evidence of bowel obstruction. Further follow-up with CT as clinical symptoms warrant. Baster Hand: WALLY Transcribe Date/Time: Oct 26 2020 9:15A Dictated by : DENICE RUTHERFORD MD This examination was interpreted and the report reviewed and electronically signed by: DENICE RUTHERFORD MD on Oct 26 2020 9:17AM EST Normal [facility] aPTT PPPon 10-25-2020 aPTT Coag (PPP) [Time] 83.5 s High 23.0-32.4 [facility] Comment on above: Order Comment: Speci men Type: BLOOD SPECIMEN Performed By: #### 1 4979-9 ####[facility]ORYCLIA [id number] [place] [address] aPTT Coag (PPP) [Time] 38.2 s High 23.0-32.4 [facility] Comment on above: Order Comment: Speci men Type: BLOOD SPECIMEN Performed By: #### 1 4979-9 ####[facility]ORYCLIA [id number] [place] [address] aPTT Coag (PPP) [Time] s High 23.0-32.4 [facility] Comment on above: Order Comment: Speci men Type: BLOOD SPECIMEN Performed By: #### 3 4528-0, 38119-5 ####[facility]ORYCLIA [id number] [place] [address] Basic metabolic 2000 panelon 10-24-2020 Anion gap [Moles/Vol] 10 mmol/L Normal 9-18 [facility] Comment on above: Order Comment: Speci men Type: BLOOD SPECIMEN Performed By: #### 2 777-1, 27632-2, ####[facility]ORYCLIA [id number] [place] [address] Calcium [Mass/Vol] 9.5 mg/dL Normal 8.5-10.2 [facility] Comment on above: Order Comment: Speci men Type: BLOOD SPECIMEN Performed By: #### 2 777-1, 02650-6, ####[facility] [id number] [place] [address] Chloride [Moles/Vol] 103 mmol/L Normal 97-105 [facility] Comment on above: Order Comment: Speci men Type: BLOOD SPECIMEN Performed By: #### 2 777-1, 26397-9, ####[facility]ORYCLIA [id number] [place] [address] CO2 [Moles/Vol] 23 mmol/L Normal 22-30 [facility] Comment on above: Order Comment: Speci men Type: BLOOD SPECIMEN Performed By: #### 2 777-1, , ####[facility]ORYCLIA [id number] [place] [address] Creatinine [Mass/Vol] 0.93 mg/dL Normal 0.58-0.96 [facility] Comment on above: Order Comment: Speci men Type: BLOOD SPECIMEN Performed By: #### 2 777-1, 94795-4, ####[facility]ORYCLIA [id number] [place] [address] GFR/1.73 sq M.predicted MDRD (S/P/Bld) [Vol rate/Area] mL/min/{1.73_m2} Normal [facility] Comment on above: Order Comment: Speci men Type: BLOOD SPECIMEN Result Comment: >60e GFR (Estimated GFR) Units of measure: mL/min/1.73 meters squaredeGFR is derived from the reexpressed MDRD Study equation using the following parameters: serum creatinine, age, gender and race. The creatinine assay has been calibrated to be traceable to IDMS. An eGFR <60 mL/min/1.73m2 for >3 months is consistent with chronic kidney disease. Refer to KDOQI guidelines for clinical interpretation. In patients with unstable renal function, e.g. those with acute kidney injury, the eGFR may not accurately reflect actual GFR. Performed By: #### 2 777-1, 94828-3, ####[facility] LABORATORYCLIA [id number] [place] [address] Glucose [Mass/Vol] 95 mg/dL Normal 74-99 [facility] Comment on above: Order Comment: Speci men Type: BLOOD SPECIMEN Result Comment: The [place] Diabetes [employer] (ADA) provides guidance for cutoff values for fasting glucose and random glucose. The ADA defines fasting as no caloric intake for at least 8 hours. Fasting plasma glucose results between 100 to 125 mg/dL indicate increased risk for diabetes (prediabetes).Fasting plasma glucose results greater than or equal to 126 mg/dL meet the criteria for diagnosis of diabetes. In the absence of unequivocal hyperglycemia, results should be confirmed by repeat testing. In a patient with classic symptoms of hyperglycemia or hyperglycemic crisis, random plasma glucose results greater than or equal to 200 mg/dL meet the criteria for diagnosis of diabetes.Reference: Standards of Medical Care in Diabetes 2016, [place] [employer]. Diabetes Care. 2016.39(Suppl 1). Performed By: #### 2 777-1, 66570-3, ####[facility]ATORYCLIA [id number] [place] [address] Potassium [Moles/Vol] 4.4 mmol/L Normal 3.7-5.1 [facility] Comment on above: Order Comment: Speci men Type: BLOOD SPECIMEN Performed By: #### 2 777-1, , ####[facility]ORATORYCLIA [id number] [place] [address] Sodium [Moles/Vol] 136 mmol/L Normal 136-144 [facility] Comment on above: Order Comment: Speci men Type: BLOOD SPECIMEN Performed By: #### 2 777-1, 15993-2, ####[facility]ATORYCLIA [id number] [place] [address] Urea nitrogen [Mass/Vol] 14 mg/dL Normal 7-21 [facility] Comment on above: Order Comment: Speci men Type: BLOOD SPECIMEN Performed By: #### 2 777-1, 35730-1, ####[facility]ATORYCLIA [id number] [place] [address] CBC panel Auto (Bld)on 10-24 Erythrocyte distribution width (RBC) [Ratio] 13.8 % Normal 11.5-15.0 [facility] Comment on above: Order Comment: Speci men Type: BLOOD SPECIMEN Performed By: #### 5 8410-2 ####[facility]ATORYCLIA [id number] [place] [address] Hematocrit (Bld) [Volume fraction] 33.4 % Low 36.0-46.0 [facility] Comment on above: Order Comment: Speci men Type: BLOOD SPECIMEN Performed By: #### 5 8410-2 ####[facility]ATORYCLIA [id number] [place] [address] Hemoglobin (Bld) [Mass/Vol] 11.1 g/dL Low 11.5-15.5 [facility] Comment on above: Order Comment: Speci men Type: BLOOD SPECIMEN Performed By: #### 5 8410-2 ####[facility]ATORYCLIA [id number] [place] [address] MCH (RBC) [Entitic mass] 32.6 pg Normal 26.0-34.0 [facility] Comment on above: Order Comment: Speci men Type: BLOOD SPECIMEN Performed By: #### 5 8410-2 ####[facility]ATORYCLIA [id number] [place] [address] MCHC (RBC) [Mass/Vol] 33.2 g/dL Normal 30.5-36.0 [facility] Comment on above: Order Comment: Speci men Type: BLOOD SPECIMEN Performed By: #### 5 8410-2 ####[facility]ATORYCLIA [id number] [place] [address] MCV (RBC) [Entitic vol] 97.9 fL Normal 80.0-100.0 [facility] Comment on above: Order Comment: Speci men Type: BLOOD SPECIMEN Performed By: #### 5 8410-2 ####[facility]ATORYCLIA [id number] [place] [address] Nucleated RBC (Bld) [#/Vol] 10*3/uL Normal <0.01 [facility] Comment on above: Order Comment: Speci men Type: BLOOD SPECIMEN Performed By: #### 5 8410-2 ####[facility]ATORYCLIA [id number] [place] [address] Platelet mean volume (Bld) [Entitic vol] 10.2 fL Normal 9.0-12.7 [facility] Comment on above: Order Comment: Speci men Type: BLOOD SPECIMEN Performed By: #### 5 8410-2 ####[facility]ATORYCLIA [id number] [place] [address] Platelets (Bld) [#/Vol] 271 10*3/uL Normal 150-400 [facility] Comment on above: Order Comment: Speci men Type: BLOOD SPECIMEN Performed By: #### 5 8410-2 ####[facility]ATORYCLIA [id number] [place] [address] RBC (Bld) [#/Vol] 3.41 10*6/uL Low 3.90-5.20 [facility] Comment on above: Order Comment: Speci men Type: BLOOD SPECIMEN Performed By: #### 5 8410-2 ####[facility]ATORYCLIA [id number] [place] [address] WBC (Bld) [#/Vol] 7.61 10*3/uL Normal 3.70-11.00 [facility] Comment on above: Order Comment: Speci men Type: BLOOD SPECIMEN Performed By: #### 5 8410-2 ####[facility]ATORYCLIA [id number] [place] [address] CONSULT PROGon 10-24-2020 CONSULT PROG Normal [facility] Magnesium SerPl-mCncon 10-24 Magnesium [Mass/Vol] 1.8 mg/dL Normal 1.7-2.3 [facility] Comment on above: Order Comment: Speci men Type: BLOOD SPECIMEN Performed By: #### 2 777-1, 55433-6, 98309-4 ####[facility]ATORYCLIA [id number] [place] [address] PT panel Coag (PPP)on 2020 INR Coag (PPP) [Relative time] 1.1 {INR} Normal 0.9-1.3 [facility] Comment on above: Order Comment: Speci men Type: BLOOD SPECIMEN Result Comment: Nicolasa min K Antagonist (VKA) Therapeutic Range: INR 2 to 3 (Target INR of 2.5)Note: For patients treated with VKA drugs, such as warfarin, the [place] [employer] 2012 Guideline recommends a therapeutic INR range of 2 to 3 (target INR of 2.5). This recommendation includes high-risk patients with antiphospholipid syndrome with previous arterial or venous thromboembolism, current-generation mechanical or bioprosthetic aortic heart valve replacement.Note: Patients with mechanical aortic valve replacement and additional risk factors for thromboembolic events (atrial fibrillation, previous thromboembolism, LV dysfunction, hypercoagulable conditions) or an older generation mechanical AVR (i.e., ball in-Cage) or any mechanical MVR should have a INR therapeutic range of 2.5 to 3.5 (target INR of 3).Teresa FRYE, et al. Chest 2012, 141:7S-47SKunal RA, et al. [facility] 2017, 70: 252-289 Performed By: #### 3 4528-0 ####[facility]ATORYCLIA [id number] [place] [address] PT Coag (PPP) [Time] 11.4 s Normal 9.7-13.0 [facility] Comment on above: Order Comment: Speci men Type: BLOOD SPECIMEN Performed By: #### 3 4528-0 ####[facility]ATORYCLIA [id number] [place] [address] Phosphate SerPl-mCncon 10-24 Phosphate [Mass/Vol] 4.6 mg/dL Normal 2.7-4.8 [facility] Comment on above: Order Comment: Speci men Type: BLOOD SPECIMEN Performed By: #### 2 777-1, 36064-0, 51092-5 ####[facility]ATORYCLIA [id number] [place] [address] aPTT PPPon 10-24-2020 aPTT Coag (PPP) [Time] 66.3 s High 23.0-32.4 [facility] Comment on above: Order Comment: Speci men Type: BLOOD SPECIMEN Performed By: #### 1 4979-9 ####[facility]ATORYCLIA [id number] [place] [address] Basic metabolic 2000 panelon 10-23-2020 Anion gap [Moles/Vol] 12 mmol/L Normal 9-18 [facility] Comment on above: Order Comment: Speci men Type: BLOOD SPECIMEN Performed By: #### 2 4321-2, , 2776-08 ####[facility]ORYCLIA [id number] [place] [address] Calcium [Mass/Vol] 9.7 mg/dL Normal 8.5-10.2 [facility] Comment on above: Order Comment: Speci men Type: BLOOD SPECIMEN Performed By: #### 2 4321-2, , 2776-08 ####[facility]ORYCLIA [id number] [place] [address] Chloride [Moles/Vol] 103 mmol/L Normal 97-105 [facility] Comment on above: Order Comment: Speci men Type: BLOOD SPECIMEN Performed By: #### 2 4321-2, , 2776-08 ####[facility]ORYCLIA [id number] [place] [address] CO2 [Moles/Vol] 23 mmol/L Normal 22-30 [facility] Comment on above: Order Comment: Speci men Type: BLOOD SPECIMEN Performed By: #### 2 4321-2, , 2776-08 ####[facility]ORYCLIA [id number] [place] [address] Creatinine [Mass/Vol] 0.92 mg/dL Normal 0.58-0.96 [facility] Comment on above: Order Comment: Speci men Type: BLOOD SPECIMEN Performed By: #### 2 4321-2, , 2776-08 ####[facility]ORYCLIA [id number] [place] [address] GFR/1.73 sq M.predicted MDRD (S/P/Bld) [Vol rate/Area] mL/min/{1.73_m2} Normal [facility] Comment on above: Order Comment: Speci men Type: BLOOD SPECIMEN Result Comment: >60e GFR (Estimated GFR) Units of measure: mL/min/1.73 meters squaredeGFR is derived from the reexpressed MDRD Study equation using the following parameters: serum creatinine, age, gender and race. The creatinine assay has been calibrated to be traceable to IDMS. An eGFR <60 mL/min/1.73m2 for >3 months is consistent with chronic kidney disease. Refer to KDOQI guidelines for clinical interpretation. In patients with unstable renal function, e.g. those with acute kidney injury, the eGFR may not accurately reflect actual GFR. Performed By: #### 2 4321-2, , 2776-08 ####[facility]NECLIA [id number] [place] [address] Glucose [Mass/Vol] 96 mg/dL Normal 74-99 [facility] Comment on above: Order Comment: [facility] Type: BLOOD SPECIMEN Result Comment: The [place] Diabetes [employer] (ADA) provides guidance for cutoff values for fasting glucose and random glucose. The ADA defines fasting as no caloric intake for at least 8 hours. Fasting plasma glucose results between 100 to 125 mg/dL indicate increased risk for diabetes (prediabetes).Fasting plasma glucose results greater than or equal to 126 mg/dL meet the criteria for diagnosis of diabetes. In the absence of unequivocal hyperglycemia, results should be confirmed by repeat testing. In a patient with classic symptoms of hyperglycemia or hyperglycemic crisis, random plasma glucose results greater than or equal to 200 mg/dL meet the criteria for diagnosis of diabetes.Reference: Standards of Medical Care in Diabetes 2016, [place] [employer]. Diabetes Care. 2016.39(Suppl 1). Performed By: #### 2 4321-2, , 2776-08 ####[facility]ATORYCLIA [id number] [place] [address] Potassium [Moles/Vol] 4.4 mmol/L Normal 3.7-5.1 [facility] Comment on above: Order Comment: [facility] Type: BLOOD SPECIMEN Performed By: #### 2 4321-2, , 2776-08 ####[facility]ATORYCLIA [id number] [place] [address] Sodium [Moles/Vol] 138 mmol/L Normal 136-144 [facility] Comment on above: Order Comment: Speci men Type: BLOOD SPECIMEN Performed By: #### 2 4321-2, 85378-2, 2776- ####[facility]ATORYCLIA [id number] [place] [address] Urea nitrogen [Mass/Vol] 14 mg/dL Normal 7-21 [facility] Comment on above: Order Comment: Speci men Type: BLOOD SPECIMEN Performed By: #### 2 4321-2, , 2776-08 ####[facility]ATORYCLIA [id number] [place] [address] CASE MANAGEMon 10-23-2020 CASE MANAGEM Normal [facility] CASE MGT INIT ASSESon 2020 CASE MGT INIT ASSES Normal [facility] CBC panel Auto (Bld)on 10-23 Erythrocyte distribution width (RBC) [Ratio] 13.8 % Normal 11.5-15.0 [facility] Comment on above: Order Comment: Speci men Type: BLOOD SPECIMEN Performed By: #### 5 8410-2 ####[facility]ATORYCLIA [id number] [place] [address] Hematocrit (Bld) [Volume fraction] 34.1 % Low 36.0-46.0 [facility] Comment on above: Order Comment: Speci men Type: BLOOD SPECIMEN Performed By: #### 5 8410-2 ####[facility]ATORYCLIA [id number] [place] [address] Hemoglobin (Bld) [Mass/Vol] 11.4 g/dL Low 11.5-15.5 [facility] Comment on above: Order Comment: Speci men Type: BLOOD SPECIMEN Performed By: #### 5 8410-2 ####[facility]ATORYCLIA [id number] [place] [address] MCH (RBC) [Entitic mass] 32.7 pg Normal 26.0-34.0 [facility] Comment on above: Order Comment: Speci men Type: BLOOD SPECIMEN Performed By: #### 5 8410-2 ####[facility]ATORYCLIA [id number] [place] [address] MCHC (RBC) [Mass/Vol] 33.4 g/dL Normal 30.5-36.0 [facility] Comment on above: Order Comment: Speci men Type: BLOOD SPECIMEN Performed By: #### 5 8410-2 ####[facility]ATORYCLIA [id number] [place] [address] MCV (RBC) [Entitic vol] 97.7 fL Normal 80.0-100.0 [facility] Comment on above: Order Comment: Speci men Type: BLOOD SPECIMEN Performed By: #### 5 8410-2 ####[facility]ATORYCLIA [id number] [place] [address] Nucleated RBC (Bld) [#/Vol] 10*3/uL Normal <0.01 [facility] Comment on above: Order Comment: Speci men Type: BLOOD SPECIMEN Performed By: #### 5 8410-2 ####[facility]ATORYCLIA [id number] [place] [address] Platelet mean volume (Bld) [Entitic vol] 10.0 fL Normal 9.0-12.7 [facility] Comment on above: Order Comment: Speci men Type: BLOOD SPECIMEN Performed By: #### 5 8410-2 ####[facility]ORYCLIA [id number] [place] [address] Platelets (Bld) [#/Vol] 276 10*3/uL Normal 150-400 [facility] Comment on above: Order Comment: Speci men Type: BLOOD SPECIMEN Performed By: #### 5 8410-2 ####[facility]ORYCLIA [id number] [place] [address] RBC (Bld) [#/Vol] 3.49 10*6/uL Low 3.90-5.20 [facility] Comment on above: Order Comment: Speci men Type: BLOOD SPECIMEN Performed By: #### 5 8410-2 ####[facility]ORYCLIA [id number] [place] [address] WBC (Bld) [#/Vol] 8.39 10*3/uL Normal 3.70-11.00 [facility] Comment on above: Order Comment: Speci men Type: BLOOD SPECIMEN Performed By: #### 5 8410-2 ####[facility]ATORYCLIA [id number] [place] [address] CONSULT PROGon 10-23-2020 CONSULT PROG Normal [facility] Magnesium SerPl-mCncon 10-23 Magnesium [Mass/Vol] 1.9 mg/dL Normal 1.7-2.3 [facility] Comment on above: Order Comment: Speci men Type: BLOOD SPECIMEN Performed By: #### 2 4321-2, 16617-9, 2777-1 ####[facility]ATORYCLIA [id number] [place] [address] NURSING PROGon 10-23-2020 NURSING PROG Normal [facility] NUTRITIONon 10-23-2020 NUTRITION Normal [facility] PT panel Coag (PPP)on 2020 INR Coag (PPP) [Relative time] 1.1 {INR} Normal 0.9-1.3 [facility] Comment on above: Order Comment: Speci men Type: BLOOD SPECIMEN Result Comment: Nicolasa min K Antagonist (VKA) Therapeutic Range: INR 2 to 3 (Target INR of 2.5)Note: For patients treated with VKA drugs, such as warfarin, the [place] [employer] 2012 Guideline recommends a therapeutic INR range of 2 to 3 (target INR of 2.5). This recommendation includes high-risk patients with antiphospholipid syndrome with previous arterial or venous thromboembolism, current-generation mechanical or bioprosthetic aortic heart valve replacement.Note: Patients with mechanical aortic valve replacement and additional risk factors for thromboembolic events (atrial fibrillation, previous thromboembolism, LV dysfunction, hypercoagulable conditions) or an older generation mechanical AVR (i.e., ball in-Cage) or any mechanical MVR should have a INR therapeutic range of 2.5 to 3.5 (target INR of 3).Teresa FRYE, et al. Chest 2012, 141:7S-47SKunal RA, et al. [facility] 2017, 70: 252-289 Performed By: #### 3 4528-0, 97681-6 ####[facility]ORYCLIA [id number] [place] [address] PT Coag (PPP) [Time] 11.0 s Normal 9.7-13.0 [facility] Comment on above: Order Comment: Speci men Type: BLOOD SPECIMEN Performed By: #### 3 4528-0, 99988-6 ####[facility]ORYCLIA [id number] [place] [address] Phosphate SerPl-mCncon 10-23 Phosphate [Mass/Vol] 4.6 mg/dL Normal 2.7-4.8 [facility] Comment on above: Order Comment: Speci men Type: BLOOD SPECIMEN Performed By: #### 2 4321-2, 12936-5, 2777-1 ####[facility]ORYCLIA [id number] [place] [address] aPTT PPPon 10-23-2020 aPTT Coag (PPP) [Time] 57.5 s High 23.0-32.4 [facility] Comment on above: Order Comment: Speci men Type: BLOOD SPECIMEN Performed By: #### 1 4979-9 ####[facility]ORYCLIA [id number] [place] [address] aPTT Coag (PPP) [Time] 38.5 s High 23.0-32.4 [facility] Comment on above: Order Comment: Speci men Type: BLOOD SPECIMEN Performed By: #### 1 4979-9 ####[facility]ORYCLIA [id number] [place] [address] aPTT Coag (PPP) [Time] 71.3 s High 23.0-32.4 [facility] Comment on above: Order Comment: Speci men Type: BLOOD SPECIMEN Performed By: #### 1 4979-9 ####[facility]ATORYCLIA [id number] [place] [address] aPTT Coag (PPP) [Time] 82.0 s High 23.0-32.4 [facility] Comment on above: Order Comment: Speci men Type: BLOOD SPECIMEN Performed By: #### 3 4528-0, 37044-6 ####[facility]ORYCLIA [id number] [place] [address] Basic metabolic 2000 panelon 10-22-2020 Anion gap [Moles/Vol] 10 mmol/L Normal -18 [facility] Comment on above: Order Comment: Speci men Type: BLOOD SPECIMEN Performed By: #### 2 4321-2, , 2776-08 ####[facility]ORYCLIA [id number] [place] [address] Calcium [Mass/Vol] 9.5 mg/dL Normal 8.5-10.2 [facility] Comment on above: Order Comment: Speci men Type: BLOOD SPECIMEN Performed By: #### 2 4321-2, , 2776-08 ####[facility]ORYCLIA [id number] [place] [address] Chloride [Moles/Vol] 104 mmol/L Normal 97-105 [facility] Comment on above: Order Comment: Speci men Type: BLOOD SPECIMEN Performed By: #### 2 4321-2, , 2776-08 ####[facility]ORYCLIA [id number] [place] [address] CO2 [Moles/Vol] 24 mmol/L Normal 22-30 [facility] Comment on above: Order Comment: Speci men Type: BLOOD SPECIMEN Performed By: #### 2 4321-2, , 2776-08 ####[facility]ORYCLIA [id number] [place] [address] Creatinine [Mass/Vol] 0.86 mg/dL Normal 0.58-0.96 [facility] Comment on above: Order Comment: Speci men Type: BLOOD SPECIMEN Performed By: #### 2 4321-2, , 2776-08 ####[facility]ORYCLIA [id number] [place] [address] GFR/1.73 sq M.predicted MDRD (S/P/Bld) [Vol rate/Area] mL/min/{1.73_m2} Normal [facility] Comment on above: Order Comment: Speci men Type: BLOOD SPECIMEN Result Comment: >60e GFR (Estimated GFR) Units of measure: mL/min/1.73 meters squaredeGFR is derived from the reexpressed MDRD Study equation using the following parameters: serum creatinine, age, gender and race. The creatinine assay has been calibrated to be traceable to IDMS. An eGFR <60 mL/min/1.73m2 for >3 months is consistent with chronic kidney disease. Refer to KDOQI guidelines for clinical interpretation. In patients with unstable renal function, e.g. those with acute kidney injury, the eGFR may not accurately reflect actual GFR. Performed By: #### 2 4321-2, , 2776-08 ####[facility] [id number] [place] [address] Glucose [Mass/Vol] 94 mg/dL Normal 74-99 [facility] Comment on above: Order Comment: Speci men Type: BLOOD SPECIMEN Result Comment: The [place] [employer] (ADA) provides guidance for cutoff values for fasting glucose and random glucose. The ADA defines fasting as no caloric intake for at least 8 hours. Fasting plasma glucose results between 100 to 125 mg/dL indicate increased risk for diabetes (prediabetes).Fasting plasma glucose results greater than or equal to 126 mg/dL meet the criteria for diagnosis of diabetes. In the absence of unequivocal hyperglycemia, results should be confirmed by repeat testing. In a patient with classic symptoms of hyperglycemia or hyperglycemic crisis, random plasma glucose results greater than or equal to 200 mg/dL meet the criteria for diagnosis of diabetes.Reference: Standards of Medical Care in Diabetes 2016, [place] [employer]. Diabetes Care. 2016.39(Suppl 1). Performed By: #### 2 4321-2, , 2776-08 ####[facility]ORYCLIA [id number] [place] [address] Potassium [Moles/Vol] 4.6 mmol/L Normal 3.7-5.1 [facility] Comment on above: Order Comment: Speci men Type: BLOOD SPECIMEN Performed By: #### 2 4321-2, , 2776-08 ####[facility]ORYCLIA [id number] [place] [address] Sodium [Moles/Vol] 138 mmol/L Normal 136-144 [facility] Comment on above: Order Comment: Speci men Type: BLOOD SPECIMEN Performed By: #### 2 4321-2, , 2776-08 ####[facility]ORYCLIA [id number] [place] [address] Urea nitrogen [Mass/Vol] 14 mg/dL Normal 7-21 [facility] Comment on above: Order Comment: Speci men Type: BLOOD SPECIMEN Performed By: #### 2 4321-2, , 2776-08 ####[facility]ORYCLIA [id number] [place] [address] CBC panel Auto (Bld)on 10-22 Erythrocyte distribution width (RBC) [Ratio] 13.9 % Normal 11.5-15.0 [facility] Comment on above: Order Comment: Speci men Type: BLOOD SPECIMEN Performed By: #### 5 8410-2 ####[facility]ORYCLIA [id number] [place] [address] Hematocrit (Bld) [Volume fraction] 35.3 % Low 36.0-46.0 [facility] Comment on above: Order Comment: Speci men Type: BLOOD SPECIMEN Performed By: #### 5 8410-2 ####[facility]ORYCLIA [id number] [place] [address] Hemoglobin (Bld) [Mass/Vol] 11.7 g/dL Normal 11.5-15.5 [facility] Comment on above: Order Comment: Speci men Type: BLOOD SPECIMEN Performed By: #### 5 8410-2 ####[facility]ORYCLIA [id number] [place] [address] MCH (RBC) [Entitic mass] 33.1 pg Normal 26.0-34.0 [facility] Comment on above: Order Comment: Speci men Type: BLOOD SPECIMEN Performed By: #### 5 8410-2 ####[facility]ORYCLIA [id number] [place] [address] MCHC (RBC) [Mass/Vol] 33.1 g/dL Normal 30.5-36.0 [facility] Comment on above: Order Comment: Speci men Type: BLOOD SPECIMEN Performed By: #### 5 8410-2 ####[facility]ORYCLIA [id number] [place] [address] MCV (RBC) [Entitic vol] 100.0 fL Normal 80.0-100.0 [facility] Comment on above: Order Comment: Speci men Type: BLOOD SPECIMEN Performed By: #### 5 8410-2 ####[facility]ORYCLIA [id number] [place] [address] Nucleated RBC (Bld) [#/Vol] 10*3/uL Normal <0.01 [facility] Comment on above: Order Comment: Speci men Type: BLOOD SPECIMEN Performed By: #### 5 8410-2 ####[facility]ATORYCLIA [id number] [place] [address] Platelet mean volume (Bld) [Entitic vol] 10.3 fL Normal 9.0-12.7 [facility] Comment on above: Order Comment: Speci men Type: BLOOD SPECIMEN Performed By: #### 5 8410-2 ####[facility]ATORYCLIA [id number] [place] [address] Platelets (Bld) [#/Vol] 245 10*3/uL Normal 150-400 [facility] Comment on above: Order Comment: Speci men Type: BLOOD SPECIMEN Performed By: #### 5 8410-2 ####[facility]ATORYCLIA [id number] [place] [address] RBC (Bld) [#/Vol] 3.53 10*6/uL Low 3.90-5.20 [facility] Comment on above: Order Comment: Speci men Type: BLOOD SPECIMEN Performed By: #### 5 8410-2 ####[facility]ATORYCLIA [id number] [place] [address] WBC (Bld) [#/Vol] 9.49 10*3/uL Normal 3.70-11.00 [facility] Comment on above: Order Comment: Speci men Type: BLOOD SPECIMEN Performed By: #### 5 8410-2 ####[facility]ATORYCLIA [id number] [place] [address] CONSULTon 10-22-2020 CONSULT Normal [facility] CONSULT PROGon 10-22-2020 CONSULT PROG Normal [facility] Magnesium SerPl-mCncon 10-22 Magnesium [Mass/Vol] 2.1 mg/dL Normal 1.7-2.3 [facility] Comment on above: Order Comment: Speci men Type: BLOOD SPECIMEN Performed By: #### 2 4321-2, 46559-9, 2777-1 ####[facility]ATORYCLIA [id number] [place] [address] PT panel Coag (PPP)on 2020 INR Coag (PPP) [Relative time] 1.1 {INR} Normal 0.9-1.3 [facility] Comment on above: Order Comment: Speci men Type: BLOOD SPECIMEN Result Comment: Nicolasa min K Antagonist (VKA) Therapeutic Range: INR 2 to 3 (Target INR of 2.5)Note: For patients treated with VKA drugs, such as warfarin, the [place] [employer] 2012 Guideline recommends a therapeutic INR range of 2 to 3 (target INR of 2.5). This recommendation includes high-risk patients with antiphospholipid syndrome with previous arterial or venous thromboembolism, current-generation mechanical or bioprosthetic aortic heart valve replacement.Note: Patients with mechanical aortic valve replacement and additional risk factors for thromboembolic events (atrial fibrillation, previous thromboembolism, LV dysfunction, hypercoagulable conditions) or an older generation mechanical AVR (i.e., ball in-Cage) or any mechanical MVR should have a INR therapeutic range of 2.5 to 3.5 (target INR of 3).Teresa FRYE, et al. Chest 2012, 141:7S-47SNishimura RA, et al. [facility] 2017, 70: 252-289 Performed By: #### 3 4528-0, 54668-6 ####[facility]ORYCLIA [id number] [place] [address] PT Coag (PPP) [Time] 11.1 s Normal 9.7-13.0 [facility] Comment on above: Order Comment: Speci men Type: BLOOD SPECIMEN Performed By: #### 3 4528-0, 30763-0 ####[facility]ORYCLIA [id number] [place] [address] Phosphate SerPl-mCncon 10-22 Phosphate [Mass/Vol] 4.7 mg/dL Normal 2.7-4.8 [facility] Comment on above: Order Comment: Speci men Type: BLOOD SPECIMEN Performed By: #### 2 4321-2, 33488-4, 2777-1 ####[facility]ATORYCLIA [id number] [place] [address] THERAPY NTon 10-22-2020 THERAPY NT Normal [facility] THERAPY NT Normal [facility] THERAPY NT Normal [facility] aPTT PPPon 10-22-2020 aPTT Coag (PPP) [Time] 60.4 s High 23.0-32.4 [facility] Comment on above: Order Comment: Speci men Type: BLOOD SPECIMEN Performed By: #### 3 4528-0, 91019-1 ####[facility]ORYCLIA [id number] [place] [address] aPTT Coag (PPP) [Time] 60.4 s High 23.0-32.4 [facility] Comment on above: Order Comment: Speci men Type: BLOOD SPECIMEN Performed By: #### 1 4979-9 ####[facility]ORYCLIA [id number] [place] [address] aPTT Coag (PPP) [Time] 69.9 s High 23.0-32.4 [facility] Comment on above: Order Comment: Speci men Type: BLOOD SPECIMEN Performed By: #### 1 4979-9 ####[facility]ORYCLIA [id number] [place] [address] ALLIED HEALTHon 10-21-2020 ALLIED HEALTH Normal [facility] Basic metabolic 2000 panelon 10-21-2020 Anion gap [Moles/Vol] 9 mmol/L Normal 9-18 [facility] Comment on above: Order Comment: Speci men Type: BLOOD SPECIMEN Performed By: #### 2 4321-2, , 2776-08 ####[facility]ATORYCLIA [id number] [place] [address] Calcium [Mass/Vol] 8.8 mg/dL Normal 8.5-10.2 [facility] Comment on above: Order Comment: Speci men Type: BLOOD SPECIMEN Performed By: #### 2 4321-2, , 2776-08 ####[facility]ORYCLIA [id number] [place] [address] Chloride [Moles/Vol] 107 mmol/L High 97-105 [facility] Comment on above: Order Comment: Speci men Type: BLOOD SPECIMEN Performed By: #### 2 4321-2, , 2776-08 ####[facility]ORYCLIA [id number] [place] [address] CO2 [Moles/Vol] 21 mmol/L Low 22-30 [facility] Comment on above: Order Comment: Speci men Type: BLOOD SPECIMEN Performed By: #### 2 4321-2, , 2776-08 ####[facility]ORYCLIA [id number] [place] [address] Creatinine [Mass/Vol] 0.72 mg/dL Normal 0.58-0.96 [facility] Comment on above: Order Comment: Speci men Type: BLOOD SPECIMEN Performed By: #### 2 4321-2, , 2776-08 ####[facility]ORYCLIA [id number] [place] [address] GFR/1.73 sq M.predicted MDRD (S/P/Bld) [Vol rate/Area] mL/min/{1.73_m2} Normal [facility] Comment on above: Order Comment: Speci men Type: BLOOD SPECIMEN Result Comment: >60e GFR (Estimated GFR) Units of measure: mL/min/1.73 meters squaredeGFR is derived from the reexpressed MDRD Study equation using the following parameters: serum creatinine, age, gender and race. The creatinine assay has been calibrated to be traceable to IDMS. An eGFR <60 mL/min/1.73m2 for >3 months is consistent with chronic kidney disease. Refer to KDOQI guidelines for clinical interpretation. In patients with unstable renal function, e.g. those with acute kidney injury, the eGFR may not accurately reflect actual GFR. Performed By: #### 2 4321-2, 40694-1, 2776- ####[facility]ATORYCLIA [id number] [place] [address] Glucose [Mass/Vol] 83 mg/dL Normal 74-99 [facility] Comment on above: Order Comment: Speci men Type: BLOOD SPECIMEN Result Comment: The [place] [employer] (ADA) provides guidance for cutoff values for fasting glucose and random glucose. The ADA defines fasting as no caloric intake for at least 8 hours. Fasting plasma glucose results between 100 to 125 mg/dL indicate increased risk for diabetes (prediabetes).Fasting plasma glucose results greater than or equal to 126 mg/dL meet the criteria for diagnosis of diabetes. In the absence of unequivocal hyperglycemia, results should be confirmed by repeat testing. In a patient with classic symptoms of hyperglycemia or hyperglycemic crisis, random plasma glucose results greater than or equal to 200 mg/dL meet the criteria for diagnosis of diabetes.Reference: Standards of Medical Care in Diabetes 2016, [place] [employer]. Diabetes Care. 2016.39(Suppl 1). Performed By: #### 2 4321-2, 15893-5, 2776-08 ####[facility]ORATORYCLIA [id number] [place] [address] Potassium [Moles/Vol] 4.0 mmol/L Normal 3.7-5.1 [facility] Comment on above: Order Comment: Speci men Type: BLOOD SPECIMEN Performed By: #### 2 4321-2, 79307-0, 2776- ####[facility]ORYCLIA [id number] [place] [address] Sodium [Moles/Vol] 137 mmol/L Normal 136-144 [facility] Comment on above: Order Comment: Speci men Type: BLOOD SPECIMEN Performed By: #### 2 4321-2, 74210-9, 2776- ####[facility]ORYCLIA [id number] [place] [address] Urea nitrogen [Mass/Vol] 12 mg/dL Normal 7-21 [facility] Comment on above: Order Comment: Speci men Type: BLOOD SPECIMEN Performed By: #### 2 4321-2, , 2776-08 ####[facility]ATORYCLIA [id number] [place] [address] CASE MANAGEMon 10-21-2020 CASE MANAGEM Normal [facility] CBC panel Auto (Bld)on 10-21 Erythrocyte distribution width (RBC) [Ratio] 13.9 % Normal 11.5-15.0 [facility] Comment on above: Order Comment: Speci men Type: BLOOD SPECIMEN Performed By: #### 5 8410-2 ####[facility]ATORYCLIA [id number] [place] [address] Hematocrit (Bld) [Volume fraction] 35.0 % Low 36.0-46.0 [facility] Comment on above: Order Comment: Speci men Type: BLOOD SPECIMEN Performed By: #### 5 8410-2 ####[facility]ORYCLIA [id number] [place] [address] Hemoglobin (Bld) [Mass/Vol] 11.6 g/dL Normal 11.5-15.5 [facility] Comment on above: Order Comment: Speci men Type: BLOOD SPECIMEN Performed By: #### 5 8410-2 ####[facility]ORYCLIA [id number] [place] [address] MCH (RBC) [Entitic mass] 32.2 pg Normal 26.0-34.0 [facility] Comment on above: Order Comment: Speci men Type: BLOOD SPECIMEN Performed By: #### 5 8410-2 ####[facility]ATORYCLIA [id number] [place] [address] MCHC (RBC) [Mass/Vol] 33.1 g/dL Normal 30.5-36.0 [facility] Comment on above: Order Comment: Speci men Type: BLOOD SPECIMEN Performed By: #### 5 8410-2 ####[facility]ORYCLIA [id number] [place] [address] MCV (RBC) [Entitic vol] 97.2 fL Normal 80.0-100.0 [facility] Comment on above: Order Comment: Speci men Type: BLOOD SPECIMEN Performed By: #### 5 8410-2 ####[facility]ORYCLIA [id number] [place] [address] Nucleated RBC (Bld) [#/Vol] 10*3/uL Normal <0.01 [facility] Comment on above: Order Comment: Speci men Type: BLOOD SPECIMEN Performed By: #### 5 8410-2 ####[facility]ORYCLIA [id number] [place] [address] Platelet mean volume (Bld) [Entitic vol] 10.0 fL Normal 9.0-12.7 [facility] Comment on above: Order Comment: Speci men Type: BLOOD SPECIMEN Performed By: #### 5 8410-2 ####[facility]ORYCLIA [id number] [place] [address] Platelets (Bld) [#/Vol] 245 10*3/uL Normal 150-400 [facility] Comment on above: Order Comment: Speci men Type: BLOOD SPECIMEN Performed By: #### 5 8410-2 ####[facility]ORYCLIA [id number] [place] [address] RBC (Bld) [#/Vol] 3.60 10*6/uL Low 3.90-5.20 [facility] Comment on above: Order Comment: Speci men Type: BLOOD SPECIMEN Performed By: #### 5 8410-2 ####[facility]ORYCLIA [id number] [place] [address] WBC (Bld) [#/Vol] 9.05 10*3/uL Normal 3.70-11.00 [facility] Comment on above: Order Comment: Speci men Type: BLOOD SPECIMEN Performed By: #### 5 8410-2 ####[facility]ORYCLIA [id number] [place] [address] Erythrocyte distribution width (RBC) [Ratio] 13.9 % Normal 11.5-15.0 [facility] Comment on above: Order Comment: Speci men Type: BLOOD SPECIMEN Performed By: #### 5 8410-2 ####[facility]ORYCLIA [id number] [place] [address] Hematocrit (Bld) [Volume fraction] 32.8 % Low 36.0-46.0 [facility] Comment on above: Order Comment: Speci men Type: BLOOD SPECIMEN Performed By: #### 5 8410-2 ####[facility]ORYCLIA [id number] [place] [address] Hemoglobin (Bld) [Mass/Vol] 10.8 g/dL Low 11.5-15.5 [facility] Comment on above: Order Comment: Speci men Type: BLOOD SPECIMEN Performed By: #### 5 8410-2 ####[facility]ORYCLIA [id number] [place] [address] MCH (RBC) [Entitic mass] 32.8 pg Normal 26.0-34.0 [facility] Comment on above: Order Comment: Speci men Type: BLOOD SPECIMEN Performed By: #### 5 8410-2 ####[facility]ORYCLIA [id number] [place] [address] MCHC (RBC) [Mass/Vol] 32.9 g/dL Normal 30.5-36.0 [facility] Comment on above: Order Comment: Speci men Type: BLOOD SPECIMEN Performed By: #### 5 8410-2 ####[facility]ORYCLIA [id number] [place] [address] MCV (RBC) [Entitic vol] 99.7 fL Normal 80.0-100.0 [facility] Comment on above: Order Comment: Speci men Type: BLOOD SPECIMEN Performed By: #### 5 8410-2 ####[facility]ORYCLIA [id number] [place] [address] Nucleated RBC (Bld) [#/Vol] 10*3/uL Normal <0.01 [facility] Comment on above: Order Comment: Speci men Type: BLOOD SPECIMEN Performed By: #### 5 8410-2 ####[facility]ORYCLIA [id number] [place] [address] Platelet mean volume (Bld) [Entitic vol] 10.0 fL Normal 9.0-12.7 [facility] Comment on above: Order Comment: Speci men Type: BLOOD SPECIMEN Performed By: #### 5 8410-2 ####[facility]ORYCLIA [id number] [place] [address] Platelets (Bld) [#/Vol] 193 10*3/uL Normal 150-400 [facility] Comment on above: Order Comment: Speci men Type: BLOOD SPECIMEN Performed By: #### 5 8410-2 ####[facility]ORYCLIA [id number] [place] [address] RBC (Bld) [#/Vol] 3.29 10*6/uL Low 3.90-5.20 [facility] Comment on above: Order Comment: Speci men Type: BLOOD SPECIMEN Performed By: #### 5 8410-2 ####[facility]CL[facility] [id number] [place] [address] WBC (Bld) [#/Vol] 8.43 10*3/uL Normal 3.70-11.00 [facility] Comment on above: Order Comment: Speci men Type: BLOOD SPECIMEN Performed By: #### 5 8410-2 ####[facility]ORYCLIA [id number] [place] [address] CONSULT PROGon 10-21-2020 CONSULT PROG Normal [facility] CT BRAIN WO IVCONon 10-22-[address] BRAIN WO IVCON Final Report DATE OF EXAM: Oct 21 2020 5:51PM [facility] 0504 - CT BRAIN WO IVCON / PROCEDURE REASON: Dizziness Physician Interpretation EXAMINATION: CTA HEAD W IVCON, CTA NECK W IVCON, CT BRAIN WO IVCON CLINICAL HISTORY: Evaluate for aneurysm; dizziness; history of coiling TECHNIQUE: Routine CT of the brain without IV contrast. Next, high resolution axial images were obtained through the head, neck and superior mediastinum following bolus administration of intravenous contrast for CT angiography. 3D maximum intensity projection images were created, reviewed and archived . MQ: CTABNPlus_4 Contrast: 100 mL Omnipaque [address] Radiation dose: Integrated Dose-Length Product (DLP) for this visit = [address] Dose Reduction Employed: Automated exposure control(AEC) and iterative recon COMPARISON: CT brain done the prior day and recent catheter angiography RESULT: BRAIN: Acute change: No evidence of an acute infarct or other acute parenchymal process. ASPECT Score = 10 Hemorrhage: No evidence of acute intracranial hemorrhage. ECASS hemorrhagic transformation score: Not Applicable Mass Lesion / Mass Effect: There is no evidence of an intracranial mass or extraaxial fluid collection. No significant mass effect. 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 Parenchyma: There is no significant volume loss. The brain parenchyma is otherwise within normal limits for age. Ventricles: The ventricles are within normal limits of size and configuration for age. Other: The visualized paranasal sinuses are grossly clear. The skull and visualized extracranial soft tissues are grossly normal. NECK: Sorter Laundry Articles (topogram) images: Soft tissues: The soft tissue planes are maintained throughout. No evidence of a soft tissue mass in the neck or superior mediastinum. No significant lymphadenopathy is seen. Spine: Alignment is normal. Mild degenerative changes are present. Lung apices: The visualized lung apices are clear. CT ARTERIOGRAM: Extracranial Circulation: Aortic Arch: There is a normal branching pattern from the aortic arch.. There is no significant stenosis in the proximal brachiocephalic vessels. Carotid Stenosis: Right Common: No significant stenosis. Right Internal Carotid Plaque: No significant plaque formation. Right Internal Carotid Stenosis (% by NASCET Criteria): 0% Left Common: No significant stenosis. Left Internal Carotid Plaque: No significant plaque formation. Left Internal Carotid Stenosis (% by NASCET Criteria): 0% Cervical Vertebral Arteries: Patency: Bilateral Dominance: Codominant Intracranial Circulation: Spot Sign Presence: Not Applicable Spot Sign Number: Not Applicable Anterior Circulation: Distal right ICA and the right MCA are patent and unremarkable. Right A1 segment appears patent. There is a coil within the region of the anterior communicating artery which obscures this region. Radiographic marker is present within the right A2 segment which appears patent. Distal left ICA and the left MCA appear patent. Left A1 segment is not well visualized secondary to artifact. The left A2 segment and distally appears patent. There is a radiographic marker within the left A2 segment. The presumably occluded aneurysms are not well assessed secondary to artifact. Vertebrobasilar Circulation: Bilateral PICA origins appear patent. Distal vertebral arteries are patent and unremarkable. The basilar artery contains a stent. At the more distal aspect of the stent the radiographic marker partially obscures the vessel. Within the region of the stent the basilar artery appears patent. The tip of the basilar is completely obscured by streak artifact from the coil. The left [employer] is partially visualized at the origin but appears patent. A stent marker is present at the junction of the left P1 and P2 segment. The right [employer] origin is somewhat obscured, however appears to be patent.. IMPRESSION: Arterial blood flow was measured to detect acute large vessel occlusion by computer aided detection software: Not Performed CT BRAIN WITHOUT CONTRAST: 1. No acute intracranial abnormality is seen. No evidence of acute intracranial hemorrhage. Multifocal remote areas of encephalomalacia as detailed above. 2. There are aneurysm coils of the [place] of [place] which create moderate streak artifact. CT ANGIOGRAPHY [place] OF [place]: 1. Aneurysm coil and stent of the anterior cerebral arteries and of the basilar artery. To the extent that these are able to be evaluated by CT, these appear patent. The left A1 segment is poorly visualized and evaluated. It is uncertain if this is truly secondary to artifact or true lack of opacification within the left A1 segment and stent. See above for details. 2. No evidence of large vessel occlusion CT ANGIOGRAPHY OF THE NECK: 1. No flow-limiting stenosis of the carotids or vertebrals Baster Hand: PSCB Transcribe Date/Time: Oct 21 2020 5:51P Dictated by : DENICE RUTHERFORD MD This examination was interpreted and the report reviewed and electronically signed by: DENICE RUTHERFORD MD on Oct 21 2020 6:30PM EST Normal [facility] CTA HEAD W IVCONon 1 CTA HEAD W IVCON Final Report DATE OF EXAM: Oct 21 2020 5:51PM [facility] 0022 - CTA HEAD W IVCON / PROCEDURE REASON: Aneurysm, neck vessel(s) Physician Interpretation EXAMINATION: CTA HEAD W IVCON, CTA NECK W IVCON, CT BRAIN WO IVCON CLINICAL HISTORY: Evaluate for aneurysm; dizziness; history of coiling TECHNIQUE: Routine CT of the brain without IV contrast. Next, high resolution axial images were obtained through the head, neck and superior mediastinum following bolus administration of intravenous contrast for CT angiography. 3D maximum intensity projection images were created, reviewed and archived . MQ: CTABNPlus_4 Contrast: 100 mL Omnipaque [address] Radiation dose: Integrated Dose-Length Product (DLP) for this visit = [address] Dose Reduction Employed: Automated exposure control(AEC) and iterative recon COMPARISON: CT brain done the prior day and recent catheter angiography RESULT: BRAIN: Acute change: No evidence of an acute infarct or other acute parenchymal process. ASPECT Score = 10 Hemorrhage: No evidence of acute intracranial hemorrhage. ECASS hemorrhagic transformation score: Not Applicable Mass Lesion / Mass Effect: There is no evidence of an intracranial mass or extraaxial fluid collection. No significant mass effect. 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 Parenchyma: There is no significant volume loss. The brain parenchyma is otherwise within normal limits for age. Ventricles: The ventricles are within normal limits of size and configuration for age. Other: The visualized paranasal sinuses are grossly clear. The skull and visualized extracranial soft tissues are grossly normal. NECK: Sorter Laundry Articles (topogram) images: Soft tissues: The soft tissue planes are maintained throughout. No evidence of a soft tissue mass in the neck or superior mediastinum. No significant lymphadenopathy is seen. Spine: Alignment is normal. Mild degenerative changes are present. Lung apices: The visualized lung apices are clear. CT ARTERIOGRAM: Extracranial Circulation: Aortic Arch: There is a normal branching pattern from the aortic arch.. There is no significant stenosis in the proximal brachiocephalic vessels. Carotid Stenosis: Right Common: No significant stenosis. Right Internal Carotid Plaque: No significant plaque formation. Right Internal Carotid Stenosis (% by NASCET Criteria): 0% Left Common: No significant stenosis. Left Internal Carotid Plaque: No significant plaque formation. Left Internal Carotid Stenosis (% by NASCET Criteria): 0% Cervical Vertebral Arteries: Patency: Bilateral Dominance: Codominant Intracranial Circulation: Spot Sign Presence: Not Applicable Spot Sign Number: Not Applicable Anterior Circulation: Distal right ICA and the right MCA are patent and unremarkable. Right A1 segment appears patent. There is a coil within the region of the anterior communicating artery which obscures this region. Radiographic marker is present within the right A2 segment which appears patent. Distal left ICA and the left MCA appear patent. Left A1 segment is not well visualized secondary to artifact. The left A2 segment and distally appears patent. There is a radiographic marker within the left A2 segment. The presumably occluded aneurysms are not well assessed secondary to artifact. Vertebrobasilar Circulation: Bilateral PICA origins appear patent. Distal vertebral arteries are patent and unremarkable. The basilar artery contains a stent. At the more distal aspect of the stent the radiographic marker partially obscures the vessel. Within the region of the stent the basilar artery appears patent. The tip of the basilar is completely obscured by streak artifact from the coil. The left [employer] is partially visualized at the origin but appears patent. A stent marker is present at the junction of the left P1 and P2 segment. The right [employer] origin is somewhat obscured, however appears to be patent.. IMPRESSION: Arterial blood flow was measured to detect acute large vessel occlusion by computer aided detection software: Not Performed CT BRAIN WITHOUT CONTRAST: 1. No acute intracranial abnormality is seen. No evidence of acute intracranial hemorrhage. Multifocal remote areas of encephalomalacia as detailed above. 2. There are aneurysm coils of the ken[place]ze of [place] which create moderate streak artifact. CT ANGIOGRAPHY NEWHALEN OF [place]MER: 1. Aneurysm coil and stent of the anterior cerebral arteries and of the basilar artery. To the extent that these are able to be evaluated by CT, these appear patent. The left A1 segment is poorly visualized and evaluated. It is uncertain if this is truly secondary to artifact or true lack of opacification within the left A1 segment and stent. See above for details. 2. No evidence of large vessel occlusion CT ANGIOGRAPHY OF THE NECK: 1. No flow-limiting stenosis of the carotids or vertebrals Baster Hand: WALLY Transcribe Date/Time: Oct 21 2020 5:51P Dictated by : DENICE RUTHERFORD MD This examination was interpreted and the report reviewed and electronically signed by: DENICE RUTHERFORD MD on Oct 21 2020 6:30PM EST Normal [facility] CTA NECK W IVCONon CTA NECK W IVCON Final Report DATE OF EXAM: Oct 21 2020 5:51PM [facility] 0024 - CTA NECK W IVCON / PROCEDURE REASON: Aneurysm, neck vessel(s) Physician Interpretation EXAMINATION: CTA HEAD W IVCON, CTA NECK W IVCON, CT BRAIN WO IVCON CLINICAL HISTORY: Evaluate for aneurysm; dizziness; history of coiling TECHNIQUE: Routine CT of the brain without IV contrast. Next, high resolution axial images were obtained through the head, neck and superior mediastinum following bolus administration of intravenous contrast for CT angiography. 3D maximum intensity projection images were created, reviewed and archived . MQ: CTABNPlus_4 Contrast: 100 mL Omnipaque [address] Radiation dose: Integrated Dose-Length Product (DLP) for this visit = [address] Dose Reduction Employed: Automated exposure control(AEC) and iterative recon COMPARISON: CT brain done the prior day and recent catheter angiography RESULT: BRAIN: Acute change: No evidence of an acute infarct or other acute parenchymal process. ASPECT Score = 10 Hemorrhage: No evidence of acute intracranial hemorrhage. ECASS hemorrhagic transformation score: Not Applicable Mass Lesion / Mass Effect: There is no evidence of an intracranial mass or extraaxial fluid collection. No significant mass effect. 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 Parenchyma: There is no significant volume loss. The brain parenchyma is otherwise within normal limits for age. Ventricles: The ventricles are within normal limits of size and configuration for age. Other: The visualized paranasal sinuses are grossly clear. The skull and visualized extracranial soft tissues are grossly normal. NECK: Sorter Laundry Articles (topogram) images: Soft tissues: The soft tissue planes are maintained throughout. No evidence of a soft tissue mass in the neck or superior mediastinum. No significant lymphadenopathy is seen. Spine: Alignment is normal. Mild degenerative changes are present. Lung apices: The visualized lung apices are clear. CT ARTERIOGRAM: Extracranial Circulation: Aortic Arch: There is a normal branching pattern from the aortic arch.. There is no significant stenosis in the proximal brachiocephalic vessels. Carotid Stenosis: Right Common: No significant stenosis. Right Internal Carotid Plaque: No significant plaque formation. Right Internal Carotid Stenosis (% by NASCET Criteria): 0% Left Common: No significant stenosis. Left Internal Carotid Plaque: No significant plaque formation. Left Internal Carotid Stenosis (% by NASCET Criteria): 0% Cervical Vertebral Arteries: Patency: Bilateral Dominance: Codominant Intracranial Circulation: Spot Sign Presence: Not Applicable Spot Sign Number: Not Applicable Anterior Circulation: Distal right ICA and the right MCA are patent and unremarkable. Right A1 segment appears patent. There is a coil within the region of the anterior communicating artery which obscures this region. Radiographic marker is present within the right A2 segment which appears patent. Distal left ICA and the left MCA appear patent. Left A1 segment is not well visualized secondary to artifact. The left A2 segment and distally appears patent. There is a radiographic marker within the left A2 segment. The presumably occluded aneurysms are not well assessed secondary to artifact. Vertebrobasilar Circulation: Bilateral PICA origins appear patent. Distal vertebral arteries are patent and unremarkable. The basilar artery contains a stent. At the more distal aspect of the stent the radiographic marker partially obscures the vessel. Within the region of the stent the basilar artery appears patent. The tip of the basilar is completely obscured by streak artifact from the coil. The left [employer] is partially visualized at the origin but appears patent. A stent marker is present at the junction of the left P1 and P2 segment. The right [employer] origin is somewhat obscured, however appears to be patent.. IMPRESSION: Arterial blood flow was measured to detect acute large vessel occlusion by computer aided detection software: Not Performed CT BRAIN WITHOUT CONTRAST: 1. No acute intracranial abnormality is seen. No evidence of acute intracranial hemorrhage. Multifocal remote areas of encephalomalacia as detailed above. 2. There are aneurysm coils of the ken[place] of [place] which create moderate streak artifact. CT ANGIOGRAPHY NEWHALEN OF [place]: 1. Aneurysm coil and stent of the anterior cerebral arteries and of the basilar artery. To the extent that these are able to be evaluated by CT, these appear patent. The left A1 segment is poorly visualized and evaluated. It is uncertain if this is truly secondary to artifact or true lack of opacification within the left A1 segment and stent. See above for details. 2. No evidence of large vessel occlusion CT ANGIOGRAPHY OF THE NECK: 1. No flow-limiting stenosis of the carotids or vertebrals Baster Hand: [facility] Transcribe Date/Time: Oct 21 2020 5:51P Dictated by : DENICE RUTHERFORD MD This examination was interpreted and the report reviewed and electronically signed by: DENICE RUTHERFORD MD on Oct 21 2020 6:30PM EST Normal [facility] Comprehensive metabolic 2000 panelon 10-21-2020 Albumin [Mass/Vol] 4.4 g/dL Normal 3.9-4.9 [facility] Comment on above: Order Comment: Speci men Type: BLOOD SPECIMEN Performed By: #### 2 4323-03, ####[facility]ORYCLIA [id number] [place] [address] ALP [Catalytic activity/Vol] 70 U/L Normal 34-123 [facility] Comment on above: Order Comment: Speci men Type: BLOOD SPECIMEN Performed By: #### 2 4323-03, ####[facility]ORYCLIA [id number] [place] [address] ALT With P-5'-P [Catalytic activity/Vol] 26 U/L Normal 7-38 [facility] Comment on above: Order Comment: Speci men Type: BLOOD SPECIMEN Performed By: #### 2 4323-03, ####[facility]ORYCLIA [id number] [place] [address] Anion gap [Moles/Vol] 9 mmol/L Normal 9-18 [facility] Comment on above: Order Comment: Speci men Type: BLOOD SPECIMEN Performed By: #### 2 4323-8, ####[facility]ORY[facility]IA [id number] [place] [address] AST With P-5'-P [Catalytic activity/Vol] 29 U/L Normal 13-35 [facility] Comment on above: Order Comment: Speci men Type: BLOOD SPECIMEN Performed By: #### 2 4323-8, ####[facility]ORY[facility] [id number] [place] [address] Bilirubin [Mass/Vol] 0.7 mg/dL Normal 0.2-1.3 [facility] Comment on above: Order Comment: Speci men Type: BLOOD SPECIMEN Performed By: #### 2 4322-8, ####[facility] [id number] [place] [address] Calcium [Mass/Vol] 9.9 mg/dL Normal 8.5-10.2 [facility] Comment on above: Order Comment: Speci men Type: BLOOD SPECIMEN Performed By: #### 2 4322-8, ####[facility]ORY[facility] [id number] [place] [address] Chloride [Moles/Vol] 105 mmol/L Normal 97-105 [facility] Comment on above: Order Comment: Speci men Type: BLOOD SPECIMEN Performed By: #### 2 4322-8, ####[facility]ORY[facility] [id number] [place] [address] CO2 [Moles/Vol] 24 mmol/L Normal 22-30 [facility] Comment on above: Order Comment: Speci men Type: BLOOD SPECIMEN Performed By: #### 2 3-8, ####[facility] [id number] [place] [address] Creatinine [Mass/Vol] 0.86 mg/dL Normal 0.58-0.96 [facility] Comment on above: Order Comment: Speci men Type: BLOOD SPECIMEN Performed By: #### 2 432 ####[facility]ATORYCLIA [id number] [place] [address] GFR/1.73 sq M.predicted MDRD (S/P/Bld) [Vol rate/Area] mL/min/{1.73_m2} Normal [facility] Comment on above: Order Comment: Speci men Type: BLOOD SPECIMEN Result Comment: >60e GFR (Estimated GFR) Units of measure: mL/min/1.73 meters squaredeGFR is derived from the reexpressed MDRD Study equation using the following parameters: serum creatinine, age, gender and race. The creatinine assay has been calibrated to be traceable to IDMS. An eGFR <60 mL/min/1.73m2 for >3 months is consistent with chronic kidney disease. Refer to KDOQI guidelines for clinical interpretation. In patients with unstable renal function, e.g. those with acute kidney injury, the eGFR may not accurately reflect actual GFR. Performed By: #### 2 43210-12, ####[facility]CLIA [id number] [place] [address] Glucose [Mass/Vol] 91 mg/dL Normal 74-99 [facility] Comment on above: Order Comment: Speci men Type: BLOOD SPECIMEN Result Comment: The [place] Diabetes Association (ADA) provides guidance for cutoff values for fasting glucose and random glucose. The ADA defines fasting as no caloric intake for at least 8 hours. Fasting plasma glucose results between 100 to 125 mg/dL indicate increased risk for diabetes (prediabetes).Fasting plasma glucose results greater than or equal to 126 mg/dL meet the criteria for diagnosis of diabetes. In the absence of unequivocal hyperglycemia, results should be confirmed by repeat testing. In a patient with classic symptoms of hyperglycemia or hyperglycemic crisis, random plasma glucose results greater than or equal to 200 mg/dL meet the criteria for diagnosis of diabetes.Reference: Standards of Medical Care in Diabetes 2016, [place] Diabetes Association. Diabetes Care. 2016.39(Suppl 1). Performed By: #### 2 4323-8, ####[facility]ATORYCLIA [id number] [place] [address] Potassium [Moles/Vol] 4.5 mmol/L Normal 3.7-5.1 [facility] Comment on above: Order Comment: Speci men Type: BLOOD SPECIMEN Performed By: #### 2 4323-8, ####[facility]ORYCLIA [id number] [place] [address] Protein [Mass/Vol] 6.6 g/dL Normal 6.3-8.0 [facility] Comment on above: Order Comment: Speci men Type: BLOOD SPECIMEN Performed By: #### 2 432-8, ####[facility]ORYCLIA [id number] [place] [address] Sodium [Moles/Vol] 138 mmol/L Normal 136-144 [facility] Comment on above: Order Comment: Speci men Type: BLOOD SPECIMEN Performed By: #### 2 432-8, ####[facility]ORYCLIA [id number] [place] [address] Urea nitrogen [Mass/Vol] 15 mg/dL Normal 7-21 [facility] Comment on above: Order Comment: Speci men Type: BLOOD SPECIMEN Performed By: #### 2 432-8, ####[facility]ORY[facility]IA [id number] [place] [address] Lactate (Bld) [Moles/Vol]on 10-21-2020 Lactate [Moles/Vol] 1.0 mmol/L Normal 0.5-2.2 [facility] Comment on above: Order Comment: Speci men Type: BLOOD SPECIMEN Performed By: #### 3 2693-4 ####[facility]ORYCLIA [id number] [place] [address] Magnesium SerPl-mCncon 10-21 Magnesium [Mass/Vol] 1.7 mg/dL Normal 1.7-2.3 [facility] Comment on above: Order Comment: Speci men Type: BLOOD SPECIMEN Performed By: #### 2 4323-8, 78833-3 ####[facility]ORYCLIA [id number] [place] [address] Magnesium [Mass/Vol] 1.5 mg/dL Low 1.7-2.3 [facility] Comment on above: Order Comment: Speci men Type: BLOOD SPECIMEN Performed By: #### 2 4321-2, 48685-3, 2777-1 ####[facility]ATORYCLIA [id number] [place] [address] NURSING PROGon 10-21-2020 NURSING PROG Normal [facility] NURSING PROG Normal [facility] Phosphate SerPl-mCncon 10-21 Phosphate [Mass/Vol] 4.2 mg/dL Normal 2.7-4.8 [facility] Comment on above: Order Comment: Speci men Type: BLOOD SPECIMEN Performed By: #### 2 4321-2, 11963-3, 2777-1 ####[facility]ATORYCLIA [id number] [place] [address] THERAPY NTon 10-21-2020 THERAPY NT Normal [facility] aPTT PPPon 10-21-2020 aPTT Coag (PPP) [Time] 24.0 s Normal 23.0-32.4 [facility] Comment on above: Order Comment: Speci men Type: BLOOD SPECIMEN Performed By: #### 1 4979-9 ####[facility]ORYCLIA [id number] [place] [address] aPTT Coag (PPP) [Time] 25.3 s Normal 23.0-32.4 [facility] Comment on above: Order Comment: Speci men Type: BLOOD SPECIMEN Performed By: #### 1 4979-9 ####[facility]ORYCLIA [id number] [place] [address] aPTT Coag (PPP) [Time] 20.8 s Low 23.0-32.4 [facility] Comment on above: Order Comment: Speci men Type: BLOOD SPECIMEN Performed By: #### 1 4979-9 ####[facility]ORYCLIA [id number] [place] [address] ALLIED HEALTHon 10-20-2020 ALLIED HEALTH Normal [facility] Basic metabolic 2000 panelon 10-20-2020 Anion gap [Moles/Vol] 9 mmol/L Normal 9-18 [facility] Comment on above: Order Comment: Speci men Type: BLOOD SPECIMEN Performed By: #### 2 777-1, 29163-8, ####[facility]ORYCLIA [id number] [place] [address] Calcium [Mass/Vol] 9.6 mg/dL Normal 8.5-10.2 [facility] Comment on above: Order Comment: Speci men Type: BLOOD SPECIMEN Performed By: #### 2 777-1, 83524-8, ####[facility]ORYCLIA [id number] [place] [address] Chloride [Moles/Vol] 107 mmol/L High 97-105 [facility] Comment on above: Order Comment: Speci men Type: BLOOD SPECIMEN Performed By: #### 2 777-1, 89272-3, ####[facility]ORYCLIA [id number] [place] [address] CO2 [Moles/Vol] 23 mmol/L Normal 22-30 [facility] Comment on above: Order Comment: Speci men Type: BLOOD SPECIMEN Performed By: #### 2 777-1, 34365-1, ####[facility]ORYCLIA [id number] [place] [address] Creatinine [Mass/Vol] 0.85 mg/dL Normal 0.58-0.96 [facility] Comment on above: Order Comment: Speci men Type: BLOOD SPECIMEN Performed By: #### 2 777-1, 30714-4, ####[facility]ORYCLIA [id number] [place] [address] GFR/1.73 sq M.predicted MDRD (S/P/Bld) [Vol rate/Area] mL/min/{1.73_m2} Normal [facility] Comment on above: Order Comment: Speci men Type: BLOOD SPECIMEN Result Comment: >60e GFR (Estimated GFR) Units of measure: mL/min/1.73 meters squaredeGFR is derived from the reexpressed MDRD Study equation using the following parameters: serum creatinine, age, gender and race. The creatinine assay has been calibrated to be traceable to IDMS. An eGFR <60 mL/min/1.73m2 for >3 months is consistent with chronic kidney disease. Refer to KDOQI guidelines for clinical interpretation. In patients with unstable renal function, e.g. those with acute kidney injury, the eGFR may not accurately reflect actual GFR. Performed By: #### 2 777-1, 70577-6, ####[facility]ORYCLIA [id number] [place] [address] Glucose [Mass/Vol] 97 mg/dL Normal 74-99 [facility] Comment on above: Order Comment: Speci men Type: BLOOD SPECIMEN Result Comment: The [place] Diabetes Association (ADA) provides guidance for cutoff values for fasting glucose and random glucose. The ADA defines fasting as no caloric intake for at least 8 hours. Fasting plasma glucose results between 100 to 125 mg/dL indicate increased risk for diabetes (prediabetes).Fasting plasma glucose results greater than or equal to 126 mg/dL meet the criteria for diagnosis of diabetes. In the absence of unequivocal hyperglycemia, results should be confirmed by repeat testing. In a patient with classic symptoms of hyperglycemia or hyperglycemic crisis, random plasma glucose results greater than or equal to 200 mg/dL meet the criteria for diagnosis of diabetes.Reference: Standards of Medical Care in Diabetes 2016, [place] [employer]. Diabetes Care. 2016.39(Suppl 1). Performed By: #### 2 777-1, , ####[facility]ORYCLIA [id number] [place] [address] Potassium [Moles/Vol] 4.3 mmol/L Normal 3.7-5.1 [facility] Comment on above: Order Comment: Speci men Type: BLOOD SPECIMEN Performed By: #### 2 777-1, 03418-6, ####[facility]ORYCLIA [id number] [place] [address] Sodium [Moles/Vol] 139 mmol/L Normal 136-144 [facility] Comment on above: Order Comment: Speci men Type: BLOOD SPECIMEN Performed By: #### 2 777-1, 90568-6, ####[facility]ATORYCLIA [id number] [place] [address] Urea nitrogen [Mass/Vol] 11 mg/dL Normal 7-21 [facility] Comment on above: Order Comment: Speci men Type: BLOOD SPECIMEN Performed By: #### 2 777-1, 82540-1, ####[facility]ATORYCLIA [id number] [place] [address] CBC panel Auto (Bld)on 10-20 Erythrocyte distribution width (RBC) [Ratio] 13.7 % Normal 11.5-15.0 [facility] Comment on above: Order Comment: Speci men Type: BLOOD SPECIMEN Performed By: #### 5 8410-2 ####[facility]ORYCLIA [id number] [place] [address] Hematocrit (Bld) [Volume fraction] 34.1 % Low 36.0-46.0 [facility] Comment on above: Order Comment: Speci men Type: BLOOD SPECIMEN Performed By: #### 5 8410-2 ####[facility]ORYCLIA [id number] [place] [address] Hemoglobin (Bld) [Mass/Vol] 11.4 g/dL Low 11.5-15.5 [facility] Comment on above: Order Comment: Speci men Type: BLOOD SPECIMEN Performed By: #### 5 8410-2 ####[facility]ORYCLIA [id number] [place] [address] MCH (RBC) [Entitic mass] 32.9 pg Normal 26.0-34.0 [facility] Comment on above: Order Comment: Speci men Type: BLOOD SPECIMEN Performed By: #### 5 8410-2 ####[facility]ORYCLIA [id number] [place] [address] MCHC (RBC) [Mass/Vol] 33.4 g/dL Normal 30.5-36.0 [facility] Comment on above: Order Comment: Speci men Type: BLOOD SPECIMEN Performed By: #### 5 8410-2 ####[facility]ORYCLIA [id number] [place] [address] MCV (RBC) [Entitic vol] 98.6 fL Normal 80.0-100.0 [facility] Comment on above: Order Comment: Speci men Type: BLOOD SPECIMEN Performed By: #### 5 8410-2 ####[facility]ORYCLIA [id number] [place] [address] Nucleated RBC (Bld) [#/Vol] 10*3/uL Normal <0.01 [facility] Comment on above: Order Comment: Speci men Type: BLOOD SPECIMEN Performed By: #### 5 8410-2 ####[facility]ORYCLIA [id number] [place] [address] Platelet mean volume (Bld) [Entitic vol] 10.3 fL Normal 9.0-12.7 [facility] Comment on above: Order Comment: Speci men Type: BLOOD SPECIMEN Performed By: #### 5 8410-2 ####[facility]ORYCLIA [id number] [place] [address] Platelets (Bld) [#/Vol] 240 10*3/uL Normal 150-400 [facility] Comment on above: Order Comment: Speci men Type: BLOOD SPECIMEN Performed By: #### 5 8410-2 ####[facility]ORYCLIA [id number] [place] [address] RBC (Bld) [#/Vol] 3.46 10*6/uL Low 3.90-5.20 [facility] Comment on above: Order Comment: Speci men Type: BLOOD SPECIMEN Performed By: #### 5 8410-2 ####[facility]ORYCLIA [id number] [place] [address] WBC (Bld) [#/Vol] 7.52 10*3/uL Normal 3.70-11.00 [facility] Comment on above: Order Comment: Speci men Type: BLOOD SPECIMEN Performed By: #### 5 8410-2 ####[facility]ORYCLIA [id number] [place] [address] CONSULT PROGon 10-20-2020 CONSULT PROG Normal [facility] CONSULT PROG Normal [facility] CT BRAIN WO IVCONon 10-21-[address] BRAIN WO IVCON Final Report DATE OF EXAM: Oct 20 2020 9:27AM [facility] 0504 - CT BRAIN WO IVCON / PROCEDURE REASON: SAH suspected, initial exam Physician Interpretation EXAMINATION: CT BRAIN WO IVCON CLINICAL HISTORY: Subarachnoid hemorrhage, recent aneurysm embolization, subarachnoid hemorrhage suspected TECHNIQUE: Serial axial images without IV contrast were obtained from the vertex to the foramen magnum. 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 These cause a severe beam hardening artifact limiting evaluation through these areas. Acute change: No evidence of an acute infarct or other acute parenchymal process. Hemorrhage: No evidence of acute intracranial hemorrhage. ECASS hemorrhagic transformation score: Not Applicable Mass Lesion / Mass Effect: There is no evidence of an intracranial mass or extraaxial fluid collection. No significant mass effect. Chronic change: Chronic areas of encephalomalacia in the left parietal lobe right occipital parietal region and right temporal lobe likely from remote infarcts. Parenchyma: There is no significant volume loss. The brain parenchyma is otherwise within normal limits for age. Ventricles: There is vacuum dilatation of the posterior horn of the left lateral ventricle. Paranasal sinuses and skull base: The visualized paranasal sinuses are grossly clear. The skull base and imaged soft tissues are unremarkable. IMPRESSION: No evidence of acute intracranial hemorrhage. Postoperative changes of prior aneurysm coiling No change from head CT of 10/18/2020. Chronic infarcts as described above. Baster Hand: WALLY Transcribe Date/Time: Oct 20 2020 9:51A Dictated by : IDALIA MEHTA MD This examination was interpreted and the report reviewed and electronically signed by: IDALIA MEHTA MD on Oct 20 2020 9:57AM EST Normal [facility] Magnesium SerPl-mCncon 10-20 Magnesium [Mass/Vol] 1.6 mg/dL Low 1.7-2.3 [facility] Comment on above: Order Comment: Speci men Type: BLOOD SPECIMEN Performed By: #### 2 777-1, 26199-2, 77368-9 ####[facility]ATORYCLIA [id number] [place] [address] NM INFECTION WB WBCon 2020 WBC (Bld) [#/Vol] Final Report DATE OF EXAM: Oct 20 2020 12:44PM [facility] 0026 - NM INFECTION WB WBC / PROCEDURE REASON: Fever of unknown origin Physician Interpretation PROCEDURE: WBC SCAN HISTORY: 55-year-old female patient with fever of unknown origin, possible PPM and valve infection. TECHNIQUE: 0.471 mCi of technetium 99m Ceretec labeled wbc were administered intravenously. 4 hour Delayed images of the whole body was obtained COMPARISON: None. CORRELATION: None. RESULT: No focal abnormal WBC uptake, suggesting in the region of the heart. Nonspecific subtle area of uptake is identified in the soft tissues, in the lateral aspect of the left mid arm; partly visualized. Nonspecific subtle uptake is also identified in the distal portion of the right arm/elbow. Normal physiologic uptake is noted within the liver, spleen, bone marrow. - IMPRESSION: No scintigraphic evidence of focal abscess or infectious process in the region of the heart. Nonspecific subtle area of uptake is identified in the soft tissues in the lateral aspect of the left mid arm; partly visualized. The finding is likely related to mild infectious/inflammatory process in this region. Nonspecific subtle uptake is also identified in the distal portion of the right arm/elbow; may be secondary to presence of a mild infectious/inflammatory process, including an IV line. Baster Hand: [facility] Transcribe Date/Time: Oct 20 2020 1:03P Dictated by : KRISHNA LUBIN MD This examination was interpreted and the report reviewed and electronically signed by: KRISHNA LUBIN MD on Oct 20 2020 1:12PM EST Normal [facility] NURSING PROGon 10-20-2020 NURSING PROG Normal [facility] Phosphate SerPl-mCncon 10-20 Phosphate [Mass/Vol] 4.4 mg/dL Normal 2.7-4.8 [facility] Comment on above: Order Comment: Speci men Type: BLOOD SPECIMEN Performed By: #### 2 777-1, 14609-4, ####[facility] [id number] [place] [address] aPTT PPPon 10-20-2020 aPTT Coag (PPP) [Time] 123.0 s High 23.0-32.4 [facility] Comment on above: Order Comment: Speci men Type: BLOOD SPECIMEN Performed By: #### 1 4979-9 ####[facility]CL[facility] [id number] [place] [address] Basic metabolic 2000 panelon 10-19-2020 Anion gap [Moles/Vol] 8 mmol/L Low 9-18 [facility] Comment on above: Order Comment: Speci men Type: BLOOD SPECIMEN Performed By: #### 2 777-1, , ####[facility]ORYCLIA [id number] [place] [address] Calcium [Mass/Vol] 9.3 mg/dL Normal 8.5-10.2 [facility] Comment on above: Order Comment: Speci men Type: BLOOD SPECIMEN Performed By: #### 2 777-1, , ####[facility]CLIA [id number] [place] [address] Chloride [Moles/Vol] 105 mmol/L Normal 97-105 [facility] Comment on above: Order Comment: Speci men Type: BLOOD SPECIMEN Performed By: #### 2 777-1, 24421-1, ####[facility]ORYCLIA [id number] [place] [address] CO2 [Moles/Vol] 25 mmol/L Normal 22-30 [facility] Comment on above: Order Comment: Speci men Type: BLOOD SPECIMEN Performed By: #### 2 777-1, , ####[facility] [id number] [place] [address] Creatinine [Mass/Vol] 0.88 mg/dL Normal 0.58-0.96 [facility] Comment on above: Order Comment: Speci men Type: BLOOD SPECIMEN Performed By: #### 2 777-1, 31114-3, ####[facility]ATORYCLIA [id number] [place] [address] GFR/1.73 sq M.predicted MDRD (S/P/Bld) [Vol rate/Area] mL/min/{1.73_m2} Normal [facility] Comment on above: Order Comment: Speci men Type: BLOOD SPECIMEN Result Comment: >60e GFR (Estimated GFR) Units of measure: mL/min/1.73 meters squaredeGFR is derived from the reexpressed MDRD Study equation using the following parameters: serum creatinine, age, gender and race. The creatinine assay has been calibrated to be traceable to IDMS. An eGFR <60 mL/min/1.73m2 for >3 months is consistent with chronic kidney disease. Refer to KDOQI guidelines for clinical interpretation. In patients with unstable renal function, e.g. those with acute kidney injury, the eGFR may not accurately reflect actual GFR. Performed By: #### 2 777-1, 48536-2, ####[facility]ATORYCLIA [id number] [place] [address] Glucose [Mass/Vol] 103 mg/dL High 74-99 [facility] Comment on above: Order Comment: Speci men Type: BLOOD SPECIMEN Result Comment: The [place] Diabetes [employer] (ADA) provides guidance for cutoff values for fasting glucose and random glucose. The ADA defines fasting as no caloric intake for at least 8 hours. Fasting plasma glucose results between 100 to 125 mg/dL indicate increased risk for diabetes (prediabetes).Fasting plasma glucose results greater than or equal to 126 mg/dL meet the criteria for diagnosis of diabetes. In the absence of unequivocal hyperglycemia, results should be confirmed by repeat testing. In a patient with classic symptoms of hyperglycemia or hyperglycemic crisis, random plasma glucose results greater than or equal to 200 mg/dL meet the criteria for diagnosis of diabetes.Reference: Standards of Medical Care in Diabetes 2016, [place] [employer]. Diabetes Care. 2016.39(Suppl 1). Performed By: #### 2 777-1, 39150-2, 63840-7 ####[facility]ATORYCLIA [id number] [place] [address] Potassium [Moles/Vol] 4.0 mmol/L Normal 3.7-5.1 [facility] Comment on above: Order Comment: Speci men Type: BLOOD SPECIMEN Performed By: #### 2 777-1, 72633-9, ####[facility]ATORYCLIA [id number] [place] [address] Sodium [Moles/Vol] 138 mmol/L Normal 136-144 [facility] Comment on above: Order Comment: Speci men Type: BLOOD SPECIMEN Performed By: #### 2 777-1, 81391-2, ####[facility]ORYCLIA [id number] [place] [address] Urea nitrogen [Mass/Vol] 10 mg/dL Normal 7-21 [facility] Comment on above: Order Comment: Speci men Type: BLOOD SPECIMEN Performed By: #### 2 777-1, 35008-1, ####[facility]ORYCLIA [id number] [place] [address] CASE MANAGEMon 10-19-2020 CASE MANAGEM Normal [facility] CBC panel Auto (Bld)on 10-19 Erythrocyte distribution width (RBC) [Ratio] 13.9 % Normal 11.5-15.0 [facility] Comment on above: Order Comment: Speci men Type: BLOOD SPECIMEN Performed By: #### 5 8410-2 ####[facility]ORYCLIA [id number] [place] [address] Hematocrit (Bld) [Volume fraction] 34.0 % Low 36.0-46.0 [facility] Comment on above: Order Comment: Speci men Type: BLOOD SPECIMEN Performed By: #### 5 8410-2 ####[facility]CLIA [id number] [place] [address] Hemoglobin (Bld) [Mass/Vol] 11.3 g/dL Low 11.5-15.5 [facility] Comment on above: Order Comment: Speci men Type: BLOOD SPECIMEN Performed By: #### 5 8410-2 ####[facility]ORYCLIA [id number] [place] [address] MCH (RBC) [Entitic mass] 32.9 pg Normal 26.0-34.0 [facility] Comment on above: Order Comment: Speci men Type: BLOOD SPECIMEN Performed By: #### 5 8410-2 ####[facility]ORYCLIA [id number] [place] [address] MCHC (RBC) [Mass/Vol] 33.2 g/dL Normal 30.5-36.0 [facility] Comment on above: Order Comment: Speci men Type: BLOOD SPECIMEN Performed By: #### 5 8410-2 ####[facility]ORYCLIA [id number] [place] [address] MCV (RBC) [Entitic vol] 99.1 fL Normal 80.0-100.0 [facility] Comment on above: Order Comment: Speci men Type: BLOOD SPECIMEN Performed By: #### 5 8410-2 ####[facility]ORYCLIA [id number] [place] [address] Nucleated RBC (Bld) [#/Vol] 10*3/uL Normal <0.01 [facility] Comment on above: Order Comment: Speci men Type: BLOOD SPECIMEN Performed By: #### 5 8410-2 ####[facility]ORYCLIA [id number] [place] [address] Platelet mean volume (Bld) [Entitic vol] 10.2 fL Normal 9.0-12.7 [facility] Comment on above: Order Comment: Speci men Type: BLOOD SPECIMEN Performed By: #### 5 8410-2 ####[facility]ORYCLIA [id number] [place] [address] Platelets (Bld) [#/Vol] 196 10*3/uL Normal 150-400 [facility] Comment on above: Order Comment: Speci men Type: BLOOD SPECIMEN Performed By: #### 5 8410-2 ####[facility]ORYCLIA [id number] [place] [address] RBC (Bld) [#/Vol] 3.43 10*6/uL Low 3.90-5.20 [facility] Comment on above: Order Comment: Speci men Type: BLOOD SPECIMEN Performed By: #### 5 8410-2 ####[facility]ORYCLIA [id number] [place] [address] WBC (Bld) [#/Vol] 6.45 10*3/uL Normal 3.70-11.00 [facility] Comment on above: Order Comment: Speci men Type: BLOOD SPECIMEN Performed By: #### 5 8410-2 ####[facility]ORYCLIA [id number] [place] [address] CONSULT PROGon 10-19-2020 CONSULT PROG Normal [facility] CONSULT PROG Normal [facility] Magnesium SerPl-mCncon 10-19 Magnesium [Mass/Vol] 1.5 mg/dL Low 1.7-2.3 [facility] Comment on above: Order Comment: Speci men Type: BLOOD SPECIMEN Performed By: #### 2 777-1, 13159-0, ####[facility]ORYCLIA [id number] [place] [address] NUTRITIONon 10-19-2020 NUTRITION Normal [facility] Phosphate SerPl-mCncon 10-19 Phosphate [Mass/Vol] 3.8 mg/dL Normal 2.7-4.8 [facility] Comment on above: Order Comment: Speci men Type: BLOOD SPECIMEN Performed By: #### 2 777-1, 60789-3, ####[facility]CLIA [id number] [place] [address] THERAPY NTon 10-19-2020 THERAPY NT Normal [facility] THERAPY NT Normal [facility] Vancomycin random [Mass/Vol] on 10-19-2020 Vancomycin [Mass/Vol] 20.8 ug/mL High 10.0-20.0 [facility] Comment on above: Order Comment: Speci men Type: BLOOD SPECIMEN Result Comment: Refe rence ranges and high/low indicator flags are provided as general guidelines only. The treating physician must determine appropriate target levels/dosing based on the specific clinical situation. Performed By: #### 4 091-5 ####[facility]ORYCLIA [id number] [place] [address] aPTT PPPon 10-19-2020 aPTT Coag (PPP) [Time] 44.4 s High 23.0-32.4 [facility] Comment on above: Order Comment: Speci men Type: BLOOD SPECIMEN Performed By: #### 1 4979-9 ####[facility]ORYCLIA [id number] [place] [address] aPTT Coag (PPP) [Time] 47.8 s High 23.0-32.4 [facility] Comment on above: Order Comment: Speci men Type: BLOOD SPECIMEN Performed By: #### 1 4979-9 ####[facility]ORYCLIA [id number] [place] [address] aPTT Coag (PPP) [Time] 91.0 s High 23.0-32.4 [facility] Comment on above: Order Comment: Speci men Type: BLOOD SPECIMEN Performed By: #### 1 4979-9 ####[facility]ORYCLIA [id number] [place] [address] ALLIED HEALTHon 10-18-2020 ALLIED HEALTH Normal [facility] Basic metabolic 2000 panelon 10-18-2020 Anion gap [Moles/Vol] 8 mmol/L Low 9-18 [facility] Comment on above: Order Comment: Speci men Type: BLOOD SPECIMEN Performed By: #### 2 4321-2, 36943-5, 2777-1 ####[facility]ORYCLIA [id number] [place] [address] Calcium [Mass/Vol] 8.9 mg/dL Normal 8.5-10.2 [facility] Comment on above: Order Comment: Speci men Type: BLOOD SPECIMEN Performed By: #### 2 4321-2, , 2776-08 ####[facility]ORYCLIA [id number] [place] [address] Chloride [Moles/Vol] 107 mmol/L High 97-105 [facility] Comment on above: Order Comment: Speci men Type: BLOOD SPECIMEN Performed By: #### 2 4321-2, , 2776-08 ####[facility]ORYCLIA [id number] [place] [address] CO2 [Moles/Vol] 23 mmol/L Normal 22-30 [facility] Comment on above: Order Comment: Speci men Type: BLOOD SPECIMEN Performed By: #### 2 4321-2, , 2776-08 ####[facility]ORYCLIA [id number] [place] [address] Creatinine [Mass/Vol] 0.80 mg/dL Normal 0.58-0.96 [facility] Comment on above: Order Comment: Speci men Type: BLOOD SPECIMEN Performed By: #### 2 4321-2, , 2776-08 ####[facility]ORYCLIA [id number] [place] [address] GFR/1.73 sq M.predicted MDRD (S/P/Bld) [Vol rate/Area] mL/min/{1.73_m2} Normal [facility] Comment on above: Order Comment: Speci men Type: BLOOD SPECIMEN Result Comment: >60e GFR (Estimated GFR) Units of measure: mL/min/1.73 meters squaredeGFR is derived from the reexpressed MDRD Study equation using the following parameters: serum creatinine, age, gender and race. The creatinine assay has been calibrated to be traceable to IDMS. An eGFR <60 mL/min/1.73m2 for >3 months is consistent with chronic kidney disease. Refer to KDOQI guidelines for clinical interpretation. In patients with unstable renal function, e.g. those with acute kidney injury, the eGFR may not accurately reflect actual GFR. Performed By: #### 2 1-2, , 2776-08 ####[facility]ORYCLIA [id number] [place] [address] Glucose [Mass/Vol] 90 mg/dL Normal 74-99 [facility] Comment on above: Order Comment: Speci men Type: BLOOD SPECIMEN Result Comment: The [place] Diabetes [employer] (ADA) provides guidance for cutoff values for fasting glucose and random glucose. The ADA defines fasting as no caloric intake for at least 8 hours. Fasting plasma glucose results between 100 to 125 mg/dL indicate increased risk for diabetes (prediabetes).Fasting plasma glucose results greater than or equal to 126 mg/dL meet the criteria for diagnosis of diabetes. In the absence of unequivocal hyperglycemia, results should be confirmed by repeat testing. In a patient with classic symptoms of hyperglycemia or hyperglycemic crisis, random plasma glucose results greater than or equal to 200 mg/dL meet the criteria for diagnosis of diabetes.Reference: Standards of Medical Care in Diabetes 2016, [place] [employer]. Diabetes Care. 2016.39(Suppl 1). Performed By: #### 2 4320-2, , 2776-08 ####[facility]ORYCLIA [id number] [place] [address] Potassium [Moles/Vol] 4.3 mmol/L Normal 3.7-5.1 [facility] Comment on above: Order Comment: Speci men Type: BLOOD SPECIMEN Performed By: #### 2 4320-2, , 2776-08 ####[facility]ORYCLIA [id number] [place] [address] Sodium [Moles/Vol] 138 mmol/L Normal 136-144 [facility] Comment on above: Order Comment: Speci men Type: BLOOD SPECIMEN Performed By: #### 2 1-2, , 2776-08 ####[facility]ORYCLIA [id number] [place] [address] Urea nitrogen [Mass/Vol] 9 mg/dL Normal 7-21 [facility] Comment on above: Order Comment: Speci men Type: BLOOD SPECIMEN Performed By: #### 2 4321-2, 74179-7, 2777-1 ####[facility]ORYCLIA [id number] [place] [address] CBC panel Auto (Bld)on 10-18 Erythrocyte distribution width (RBC) [Ratio] 13.6 % Normal 11.5-15.0 [facility] Comment on above: Order Comment: Speci men Type: BLOOD SPECIMEN Performed By: #### 5 8410-2 ####[facility]ORYCLIA [id number] [place] [address] Hematocrit (Bld) [Volume fraction] 32.0 % Low 36.0-46.0 [facility] Comment on above: Order Comment: Speci men Type: BLOOD SPECIMEN Performed By: #### 5 8410-2 ####[facility]ORYCLIA [id number] [place] [address] Hemoglobin (Bld) [Mass/Vol] 10.7 g/dL Low 11.5-15.5 [facility] Comment on above: Order Comment: Speci men Type: BLOOD SPECIMEN Performed By: #### 5 8410-2 ####[facility]ORYCLIA [id number] [place] [address] MCH (RBC) [Entitic mass] 33.0 pg Normal 26.0-34.0 [facility] Comment on above: Order Comment: Speci men Type: BLOOD SPECIMEN Performed By: #### 5 8410-2 ####[facility]ORYCLIA [id number] [place] [address] MCHC (RBC) [Mass/Vol] 33.4 g/dL Normal 30.5-36.0 [facility] Comment on above: Order Comment: Speci men Type: BLOOD SPECIMEN Performed By: #### 5 8410-2 ####[facility]ORYCLIA [id number] [place] [address] MCV (RBC) [Entitic vol] 98.8 fL Normal 80.0-100.0 [facility] Comment on above: Order Comment: Speci men Type: BLOOD SPECIMEN Performed By: #### 5 8410-2 ####[facility]ORYCLIA [id number] [place] [address] Nucleated RBC (Bld) [#/Vol] 10*3/uL Normal <0.01 [facility] Comment on above: Order Comment: Speci men Type: BLOOD SPECIMEN Performed By: #### 5 8410-2 ####[facility]ORYCLIA [id number] [place] [address] Platelet mean volume (Bld) [Entitic vol] 10.5 fL Normal 9.0-12.7 [facility] Comment on above: Order Comment: Speci men Type: BLOOD SPECIMEN Performed By: #### 5 8410-2 ####[facility]ORYCLIA [id number] [place] [address] Platelets (Bld) [#/Vol] 193 10*3/uL Normal 150-400 [facility] Comment on above: Order Comment: Speci men Type: BLOOD SPECIMEN Performed By: #### 5 8410-2 ####[facility]ORYCLIA [id number] [place] [address] RBC (Bld) [#/Vol] 3.24 10*6/uL Low 3.90-5.20 [facility] Comment on above: Order Comment: Speci men Type: BLOOD SPECIMEN Performed By: #### 5 8410-2 ####[facility]ORYCLIA [id number] [place] [address] WBC (Bld) [#/Vol] 8.31 10*3/uL Normal 3.70-11.00 [facility] Comment on above: Order Comment: Speci men Type: BLOOD SPECIMEN Performed By: #### 5 8410-2 ####[facility]ORYCLIA [id number] [place] [address] CT BRAIN WO IVCONon 10-19-[address] BRAIN WO IVCON Final Report DATE OF EXAM: Oct 18 2020 9:03AM [facility] 0504 - CT BRAIN WO IVCON / PROCEDURE REASON: Post-operative craniotomy, bleed or epilepsy surg Physician Interpretation EXAMINATION: CT BRAIN WO IVCON CLINICAL HISTORY: Status post aneurysm coiling TECHNIQUE: Serial axial images without IV contrast were obtained from the vertex to the foramen magnum. MQ: CTBWO_3 CT Radiation dose: Integrated Dose-Length Product (DLP) for this visit = [address] Dose Reduction Employed: Iterative recon COMPARISON: None. RESULT: [employer] (topogram) images: Unremarkable. Post-operative change: Status post aneurysmal coiling. Acute change: No evidence of an acute infarct or other acute parenchymal process. Hemorrhage: No evidence of acute intracranial hemorrhage. ECASS hemorrhagic transformation score: Not Applicable Mass Lesion / Mass Effect: There is no evidence of an intracranial mass or extraaxial fluid collection. No significant mass effect. Chronic change: Bilateral regions of chronic infarct again noted. Parenchyma: There is mild generalized volume loss. The brain parenchyma is otherwise within normal limits for age. Ventricles: The ventricles are within normal limits of size and configuration for age. Paranasal sinuses and skull base: The visualized paranasal sinuses are grossly clear. The skull base and imaged soft tissues are unremarkable. IMPRESSION: Status post aneurysmal coiling. Otherwise, no significant change from the prior study of one week ago. Baster Hand: [facility] Transcribe Date/Time: Oct 18 2020 9:56A Dictated by : RICH MATA MD This examination was interpreted and the report reviewed and electronically signed by: RICH MATA MD on Oct 18 2020 9:57AM EST Normal [facility] Magnesium [facility] 10-18 Magnesium [Mass/Vol] 1.5 mg/dL Low 1.7-2.3 [facility] Comment on above: Order Comment: Speci men Type: BLOOD SPECIMEN Performed By: #### 2 4321-2, , 2776-08 ####[facility]ATORYCLIA [id number] [place] [address] Phosphate SerPl-ncon 10-18 Phosphate [Mass/Vol] 3.6 mg/dL Normal 2.7-4.8 [facility] Comment on above: Order Comment: Speci men Type: BLOOD SPECIMEN Performed By: #### 2 4321-2, , 2776-08 ####[facility]ATORYCLIA [id number] [place] [address] aPTT PPPon 10-18-2020 aPTT Coag (PPP) [Time] 42.5 s High 23.0-32.4 [facility] Comment on above: Order Comment: Speci men Type: BLOOD SPECIMEN Performed By: #### 1 4979-9 ####[facility]ATORYCLIA [id number] [place] [address] aPTT Coag (PPP) [Time] 80.0 s High 23.0-32.4 [facility] Comment on above: Order Comment: Speci men Type: BLOOD SPECIMEN Performed By: #### 1 4979-9 ####[facility]ORYCLIA [id number] [place] [address] aPTT Coag (PPP) [Time] 43.3 s High 23.0-32.4 [facility] Comment on above: Order Comment: Speci men Type: BLOOD SPECIMEN Performed By: #### 1 4979-9 ####[facility]ORYCLIA [id number] [place] [address] aPTT Coag (PPP) [Time] 49.8 s High 23.0-32.4 [facility] Comment on above: Order Comment: Speci men Type: BLOOD SPECIMEN Performed By: #### 1 4979-9 ####[facility]ATORYCLIA [id number] [place] [address] ANES POSTPROC EVALon 021 ANES POSTPROC EVAL Normal [facility] ANES PRE-OPon 10-17-2020 ANES PRE-OP Normal [facility] BRIEF OP NOTon 10-17-2020 BRIEF OP NOT Normal [facility] CBC panel Auto (Bld)on 10-17 Erythrocyte distribution width (RBC) [Ratio] 13.9 % Normal 11.5-15.0 [facility] Comment on above: Order Comment: Speci men Type: BLOOD SPECIMEN Performed By: #### 5 8410-2 ####[facility]ORYCLIA [id number] [place] [address] Hematocrit (Bld) [Volume fraction] 40.9 % Normal 36.0-46.0 [facility] Comment on above: Order Comment: Speci men Type: BLOOD SPECIMEN Performed By: #### 5 8410-2 ####[facility]ORYCLIA [id number] [place] [address] Hemoglobin (Bld) [Mass/Vol] 13.7 g/dL Normal 11.5-15.5 [facility] Comment on above: Order Comment: Speci men Type: BLOOD SPECIMEN Performed By: #### 5 8410-2 ####[facility]ORYCLIA [id number] [place] [address] MCH (RBC) [Entitic mass] 33.1 pg Normal 26.0-34.0 [facility] Comment on above: Order Comment: Speci men Type: BLOOD SPECIMEN Performed By: #### 5 8410-2 ####[facility]ORYCLIA [id number] [place] [address] MCHC (RBC) [Mass/Vol] 33.5 g/dL Normal 30.5-36.0 [facility] Comment on above: Order Comment: Speci men Type: BLOOD SPECIMEN Performed By: #### 5 8410-2 ####[facility]ORYCLIA [id number] [place] [address] MCV (RBC) [Entitic vol] 98.8 fL Normal 80.0-100.0 [facility] Comment on above: Order Comment: Speci men Type: BLOOD SPECIMEN Performed By: #### 5 8410-2 ####[facility]ORYCLIA [id number] [place] [address] Nucleated RBC (Bld) [#/Vol] 10*3/uL Normal <0.01 [facility] Comment on above: Order Comment: Speci men Type: BLOOD SPECIMEN Performed By: #### 5 8410-2 ####[facility]ORYCLIA [id number] [place] [address] Platelet mean volume (Bld) [Entitic vol] 10.5 fL Normal 9.0-12.7 [facility] Comment on above: Order Comment: Speci men Type: BLOOD SPECIMEN Performed By: #### 5 8410-2 ####[facility]ORYCLIA [id number] [place] [address] Platelets (Bld) [#/Vol] 227 10*3/uL Normal 150-400 [facility] [facility] Comment on above: Order Comment: Speci men Type: BLOOD SPECIMEN Performed By: #### 5 [id number] ####[facility]ORY[facility]IA [id number] [place] [address] RBC (Bld) [#/Vol] 4.14 10*6/uL Normal 3.90-5.20 [facility] Comment on above: Order Comment: Speci men Type: BLOOD SPECIMEN Performed By: #### 5 [id number] ####[facility]ORYCLIA [id number] [place] [address] WBC (Bld) [#/Vol] 6.08 10*3/uL Normal 3.70-11.00 [facility] Comment on above: Order Comment: Speci men Type: BLOOD SPECIMEN Performed By: #### 5 [id number] ####[facility]ATORYCLIA [id number] [place] [address] CONSULT PROGon 10-17-2020 CONSULT PROG Normal [facility] HISTORY PHYSICALon HISTORY PHYSICAL Normal [facility] NIL ANEURYSM COILING CNSon 0 10-17-2020 NIL ANEURYSM COILING MAINTENANCE ELECTRICIAN Final Report DATE OF EXAM: Oct 17 2020 11:37AM A6A 2386 - NIL ANEURYSM COILING MAINTENANCE ELECTRICIAN / PROCEDURE REASON: Embo Physician Interpretation Endovascular Surgical Neuroradiology Report PROCEDURE: 1. IADSA of the bilateral carotid arteries and left vertebral artery. 2. Y-Stent coiling of ALFREDA A1-A2 aneurysm 3. 3D Rotational angiogram of left internal carotid artery 4. 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 TIME OUT TIME: 858 PROCEDURE START TIME: 858 PROCEDURE END TIME: 1124 ATTENDING: Luz Armas MD SUPERVISOR METAL CANS (FELLOW): The procedure was performed by the attending without an administrative assistant office manager. The attending performed the following procedural activities: diagnostic angiogram and coil embolization APPROACH: Right common femoral artery using a modified Seldinger technique with a micropuncture needle. 8F sheath placed. Fluoroscopic Radiation Summary: Plane A, Air Kerma: 3539.0 mGy Plane B, Air Kerma: 2762.0 mGy Dose Area Product (DAP): 0.0 mGycm2 Fluoro time: 57:18 min:sec arterial: 264 ml of OMNIPAQUE 300 INFORMED CONSENT: The procedures risks, benefits, and alternatives were discussed with the patient and any available family. They agreed to proceed. All questions were answered. 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 After careful consideration of treatment options, the angiogram was performed with intent to treat by endovascular coil embolization. TECHNIQUE: After informed consent the patient was brought to the angiography suite and a formal timeout was performed identifying the patient by name, MRN, and date of . General endotracheal anesthesia was smoothly induced and all appropriate lines were placed by anesthesia. Both groin regions were prepped and draped in the usual sterile fashion. The right common femoral artery was entered using modified Seldinger technique. A 6F sheath was placed over a 0.035 PTFE floppy wire. A 5F diagnostic catheter in conjunction with a .035 angled Glidewire was used to selectively catheterize the following vessels: Brachiocephalic vascular family: Right common carotid artery, intracranial views. Standard AP, lateral and oblique views. Left carotid vascular family: Left internal carotid artery, intracranial views. Standard AP, lateral and oblique views. Left subclavian vascular family: Left vertebral artery, intracranial views. Standard AP, lateral and Angy's views. Right femoral artery After each vessel was selected multiple AP, lateral, oblique and magnified angiographic runs were performed with filming over the head and neck. FINDINGS: LEFT INTERNAL CAROTID ARTERY INJECTION (cranial): DSA images of the left anterior intracranial circulation demonstrate normal course and caliber of the petrous, cavernous and supraclinoid segments of the internal carotid artery. The ophthalmic artery origin, course and caliber are normal. There is no visualized posterior communicating artery. ? The anterior choroidal artery is normal. M1 and A1 segments are normal. MCA and ALFREDA distributions are normal. There is filling across the anterior communicating artery to the contralateral ALFREDA. ?There is a 6.8mmx 4.89mmx3.36mm with a 6.47mm neck left A1/A2 medially pointing aneurysm. ? Capillary and venous phases are normal. No aneurysm or arteriovenous malformation is identified. LEFT VERTEBRAL ARTERY INJECTION: DSA images of the posterior intracranial circulation demonstrate normal course and caliber of the distal left vertebral artery. The vertebrobasilar confluence is normal. There is reflux of contrast down the right vertebral artery. The basilar segment is normal. ?There is a 6.3mmx5.83mmx4.37mm with a 2.97mm neck. ?Bilateral PICAs are normal Bilateral AICAs are normal.. Bilateral SCAs are normal. 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 The capillary and venous phases are normal. BASED ON THE ABOVE FINDINGS, WE PROCEEDED WITH THE FOLLOWING INTERVENTION: PROCEDURE: The patient was fully heparinized. A post heparinization ACT of greater than twice baseline was achieved and maintained throughout the case. A working angle for coil embolization was determined from the rotational angiogram. Under high magnification fluoroscopic roadmap control, an exchange length glidewire was placed in the left petrous internal carotid artery. A 6F Benchmark guidesheath was then exchanged for the diagnostic catheter. An 0.016 Sheldahl SL-10 microcatheter was then manipulated into the aneurysm over a 0.014 Syncro-2 microwire. An SL-10 microcatheter advanced over the Synchro wire into the right A2 segment. A 3mm x21mm neuroform Trion stent was then deployed across the neck of the aneurysm from the right A2 to the left A1. Follow-up angiography performed. The stent delivery system was removed and follow-up angiography performed. An SL-10 microcatheter advanced over the Synchro wire into the left A2 segment. A 3mm x21mm neuroform Trion stent was then deployed across the neck of the aneurysm from the left A2 to the left A1. Follow-up angiography performed. The stent delivery system was removed and follow-up angiography performed. Coil embolization was then initiated. A total of 6 coils were detached in the aneurysm as follows: Target 360 Soft: [id number] Target 360 Soft [id number] Target 360 Soft [id number] Target 360 Soft [id number] Target 360 Ultra [id number] Target 360 Ultra [id number] Control angiography was performed intermittently during the embolization process. Follow-up angiography was performed. The pusher wire and microcatheter were then removed as a a unit Final follow-up angiography was performed catheter position in the left internal carotid artery. 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 A working angle for coil embolization was determined from the best oblique view. Under high magnification fluoroscopic roadmap control, an exchange length glidewire was placed in the left vertebral artery. A 6F Benchmark guidesheath was then exchanged for the diagnostic catheter. An 0.016 Sheldahl SL-10 microcatheter was then manipulated into the aneurysm over a 0.014 Syncro-2 microwire. Coil embolization was started however the coil mass would fall out of the aneurysm. An SL-10 microcatheter advanced over the Synchro wire into the left SERVICE CREW LEADER segment. A 3mm x24mm neuroform Trion stent was then deployed across the neck of the aneurysm from the left SERVICE CREW LEADER to the basilar artery. Follow-up angiography performed. The stent delivery system was removed and follow-up angiography performed. Follow-up angiography performed. The stent delivery system was removed and follow-up angiography performed. Coil embolization was then initiated. A total of 6 coils were detached in the aneurysm as follows: Target 360 Soft: [id number] Target 360 Soft [id number] Target 360 Ultra 7wor6fd Target 360 Ultra 2.2yhp6fg Target 360 Ultra 2.7lsu4bh Target 360 Ultra 7bnt0pu Control angiography was performed intermittently during the embolization process. Follow-up angiography was performed. The pusher wire and microcatheter were then removed as a a unit Final follow-up angiography was performed catheter position in the left internal carotid artery. Hemostasis at the right groin was obtained by Angioseal. The patient was transferred to the NSICU in stable condition without immediate complication. All the coils and stents used are MRI compatible. There were no complications during the procedure. POST-INTERVENTION FINDINGS: LEFT INTERNAL CAROTID (Post-stenting): Stents are in good position across the aneurysm neck and is widely patent, with no intraluminal filling defects. No intracranial branch occlusions. LEFT INTERNAL CAROTID (Post-coiling): There has been good occlusion of the aneurysm. No intracranial branch occlusions. LEFT VERTEBRAL ARTERY (Post-Stenting): Stent is in good position across the aneurysm neck and is widely patent, no intraluminal filling defects. No intracranial branch occlusions. LEFT VERTEBRAL ARTERY (Post-Coiling): There has been good occlusion of the aneurysm. No intracranial branch occlusions. There is retrograde filling of the left ALFREDA from SERVICE CREW LEADER collaterals. RIGHT COMMON CAROTID ARTERY INJECTION (cranial): DSA images of the right anterior intracranial circulation demonstrate normal course and caliber of the petrous, cavernous and supraclinoid segments of the internal carotid artery. The ophthalmic artery origin, course and caliber are normal. There is no visualized posterior communicating artery. The anterior choroidal artery is normal. M1 and A1 segments are normal. MCA and ALFREDA distributions are normal. There is filling across the anterior communicating artery to the contralateral ALFREDA and MCA. There is slow anterograde filling of the contralateral ALFREDA after basilar treatment. Capillary and venous phases are normal. LEFT INTERNAL CAROTID ARTERY (Post-basilar aneurysm treatment): There is slow anterograde filling of the ipsilateral ALFREDA but with microcatheter injection, there is patency of the intraluminal stent. RIGHT FEMORAL ARTERY: DSA images of the right common femoral artery demonstrate normal course and caliber of the vessel. The sheath is placed in the straight segment of the artery, above the bifurcation. There is no evidence of dissection or pseudoaneurysm. IMPRESSION: 1. 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 2. 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 3. There is slow anterograde filling of the left ALFREDA post stenting with retrograde left SERVICE CREW LEADER collateral filling. However, no intraluminal clot is seen in stent or vessel with microcatheter evaluation. Luz Armas MD Endovascular Neuroradiology Baster Hand: [facility] Transcribe Date/Time: Oct 17 2020 1:10P Dictated by : LUZ ARMAS MD This examination was interpreted and the report reviewed and electronically signed by: LUZ ARMAS MD on Oct 17 2020 1:32PM EST Normal [facility] NIL ANEURYSM COILING MAINTENANCE ELECTRICIAN Final Report DATE OF EXAM: Oct 17 2020 11:37AM A6A 2386 - NIL ANEURYSM COILING MAINTENANCE ELECTRICIAN / PROCEDURE REASON: Embo Physician Interpretation Endovascular Surgical Neuroradiology Report PROCEDURE: 1. IADSA of the bilateral carotid arteries and left vertebral artery. 2. Y-Stent coiling of ALFREDA A1-A2 aneurysm 3. 3D Rotational angiogram of left internal carotid artery 4. 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 TIME OUT TIME: 858 PROCEDURE START TIME: 858 PROCEDURE END TIME: 1124 ATTENDING: Luz Armas MD SUPERVISOR METAL CANS (FELLOW): The procedure was performed by the attending without an administrative assistant office manager. The attending performed the following procedural activities: diagnostic angiogram and coil embolization APPROACH: Right common femoral artery using a modified Seldinger technique with a micropuncture needle. 8F sheath placed. Fluoroscopic Radiation Summary: Plane A, Air Kerma: 3539.0 mGy Plane B, Air Kerma: 2762.0 mGy Dose Area Product (DAP): 0.0 mGycm2 Fluoro time: 57:18 min:sec arterial: 264 ml of OMNIPAQUE 300 INFORMED CONSENT: The procedures risks, benefits, and alternatives were discussed with the patient and any available family. They agreed to proceed. All questions were answered. 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 After careful consideration of treatment options, the angiogram was performed with intent to treat by endovascular coil embolization. TECHNIQUE: After informed consent the patient was brought to the angiography suite and a formal timeout was performed identifying the patient by name, MRN, and date of . General endotracheal anesthesia was smoothly induced and all appropriate lines were placed by anesthesia. Both groin regions were prepped and draped in the usual sterile fashion. The right common femoral artery was entered using modified Seldinger technique. A 6F sheath was placed over a 0.035 PTFE floppy wire. A 5F diagnostic catheter in conjunction with a .035 angled Glidewire was used to selectively catheterize the following vessels: Brachiocephalic vascular family: Right common carotid artery, intracranial views. Standard AP, lateral and oblique views. Left carotid vascular family: Left internal carotid artery, intracranial views. Standard AP, lateral and oblique views. Left subclavian vascular family: Left vertebral artery, intracranial views. Standard AP, lateral and Angy's views. Right femoral artery After each vessel was selected multiple AP, lateral, oblique and magnified angiographic runs were performed with filming over the head and neck. FINDINGS: LEFT INTERNAL CAROTID ARTERY INJECTION (cranial): DSA images of the left anterior intracranial circulation demonstrate normal course and caliber of the petrous, cavernous and supraclinoid segments of the internal carotid artery. The ophthalmic artery origin, course and caliber are normal. There is no visualized posterior communicating artery. ? The anterior choroidal artery is normal. M1 and A1 segments are normal. MCA and ALFREDA distributions are normal. There is filling across the anterior communicating artery to the contralateral ALFREDA. ?There is a 6.8mmx 4.89mmx3.36mm with a 6.47mm neck left A1/A2 medially pointing aneurysm. ? Capillary and venous phases are normal. No aneurysm or arteriovenous malformation is identified. LEFT VERTEBRAL ARTERY INJECTION: DSA images of the posterior intracranial circulation demonstrate normal course and caliber of the distal left vertebral artery. The vertebrobasilar confluence is normal. There is reflux of contrast down the right vertebral artery. The basilar segment is normal. ?There is a 6.3mmx5.83mmx4.37mm with a 2.97mm neck. ?Bilateral PICAs are normal Bilateral AICAs are normal.. Bilateral SCAs are normal. 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 The capillary and venous phases are normal. BASED ON THE ABOVE FINDINGS, WE PROCEEDED WITH THE FOLLOWING INTERVENTION: PROCEDURE: The patient was fully heparinized. A post heparinization ACT of greater than twice baseline was achieved and maintained throughout the case. A working angle for coil embolization was determined from the rotational angiogram. Under high magnification fluoroscopic roadmap control, an exchange length glidewire was placed in the left petrous internal carotid artery. A 6F Benchmark guidesheath was then exchanged for the diagnostic catheter. An 0.016 Sheldahl SL-10 microcatheter was then manipulated into the aneurysm over a 0.014 Syncro-2 microwire. An SL-10 microcatheter advanced over the Synchro wire into the right A2 segment. A 3mm x21mm neuroform Trion stent was then deployed across the neck of the aneurysm from the right A2 to the left A1. Follow-up angiography performed. The stent delivery system was removed and follow-up angiography performed. An SL-10 microcatheter advanced over the Synchro wire into the left A2 segment. A 3mm x21mm neuroform Trion stent was then deployed across the neck of the aneurysm from the left A2 to the left A1. Follow-up angiography performed. The stent delivery system was removed and follow-up angiography performed. Coil embolization was then initiated. A total of 6 coils were detached in the aneurysm as follows: Target 360 Soft: [id number] Target 360 Soft [id number] Target 360 Soft 9pyn52ry Target 360 Soft 2nie44br Target 360 Ultra 6whj38ee Target 360 Ultra 5kwu1by Control angiography was performed intermittently during the embolization process. Follow-up angiography was performed. The pusher wire and microcatheter were then removed as a a unit Final follow-up angiography was performed catheter position in the left internal carotid artery. 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 A working angle for coil embolization was determined from the best oblique view. Under high magnification fluoroscopic roadmap control, an exchange length glidewire was placed in the left vertebral artery. A 6F Benchmark guidesheath was then exchanged for the diagnostic catheter. An 0.016 Sheldahl SL-10 microcatheter was then manipulated into the aneurysm over a 0.014 Syncro-2 microwire. Coil embolization was started however the coil mass would fall out of the aneurysm. An SL-10 microcatheter advanced over the Synchro wire into the left SERVICE CREW LEADER segment. A 3mm x24mm neuroform Trion stent was then deployed across the neck of the aneurysm from the left SERVICE CREW LEADER to the basilar artery. Follow-up angiography performed. The stent delivery system was removed and follow-up angiography performed. Follow-up angiography performed. The stent delivery system was removed and follow-up angiography performed. Coil embolization was then initiated. A total of 6 coils were detached in the aneurysm as follows: Target 360 Soft: [id number] Target 360 Soft 2loj6jo Target 360 Ultra 7xlt1aq Target 360 Ultra 2.8vxz2xd Target 360 Ultra 2.3kxu5vg Target 360 Ultra 4qoc9bu Control angiography was performed intermittently during the embolization process. Follow-up angiography was performed. The pusher wire and microcatheter were then removed as a a unit Final follow-up angiography was performed catheter position in the left internal carotid artery. Hemostasis at the right groin was obtained by Angioseal. The patient was transferred to the NSICU in stable condition without immediate complication. All the coils and stents used are MRI compatible. There were no complications during the procedure. POST-INTERVENTION FINDINGS: LEFT INTERNAL CAROTID (Post-stenting): Stents are in good position across the aneurysm neck and is widely patent, with no intraluminal filling defects. No intracranial branch occlusions. LEFT INTERNAL CAROTID (Post-coiling): There has been good occlusion of the aneurysm. No intracranial branch occlusions. LEFT VERTEBRAL ARTERY (Post-Stenting): Stent is in good position across the aneurysm neck and is widely patent, no intraluminal filling defects. No intracranial branch occlusions. LEFT VERTEBRAL ARTERY (Post-Coiling): There has been good occlusion of the aneurysm. No intracranial branch occlusions. There is retrograde filling of the left ALFREDA from SERVICE CREW LEADER collaterals. RIGHT COMMON CAROTID ARTERY INJECTION (cranial): DSA images of the right anterior intracranial circulation demonstrate normal course and caliber of the petrous, cavernous and supraclinoid segments of the internal carotid artery. The ophthalmic artery origin, course and caliber are normal. There is no visualized posterior communicating artery. The anterior choroidal artery is normal. M1 and A1 segments are normal. MCA and ALFREDA distributions are normal. There is filling across the anterior communicating artery to the contralateral ALFREDA and MCA. There is slow anterograde filling of the contralateral ALFREDA after basilar treatment. Capillary and venous phases are normal. LEFT INTERNAL CAROTID ARTERY (Post-basilar aneurysm treatment): There is slow anterograde filling of the ipsilateral ALFREDA but with microcatheter injection, there is patency of the intraluminal stent. RIGHT FEMORAL ARTERY: DSA images of the right common femoral artery demonstrate normal course and caliber of the vessel. The sheath is placed in the straight segment of the artery, above the bifurcation. There is no evidence of dissection or pseudoaneurysm. IMPRESSION: 1. 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 2. 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 3. There is slow anterograde filling of the left ALFREDA post stenting with retrograde left SERVICE CREW LEADER collateral filling. However, no intraluminal clot is seen in stent or vessel with microcatheter evaluation. Luz Armas MD Endovascular Neuroradiology Baster Hand: [facility] Transcribe Date/Time: Oct 17 2020 1:10P Dictated by : LUZ ARMAS MD This examination was interpreted and the report reviewed and electronically signed by: LUZ ARMAS MD on Oct 17 2020 1:32PM EST Normal [facility] NIL CAROTID CEREBRAL UNILATE RALon 10-17-2020 NIL CAROTID CEREBRAL UNILATERAL Final Report DATE OF EXAM: Oct 17 2020 11:37AM A6A 9657 - NIL CAROTID CEREBRAL UNILATERAL - RIGHT / PROCEDURE REASON: ACOMM, Basilar Aneurysm Coiling Physician Interpretation Endovascular Surgical Neuroradiology Report PROCEDURE: 1. IADSA of the bilateral carotid arteries and left vertebral artery. 2. Y-Stent coiling of ALFREDA A1-A2 aneurysm 3. 3D Rotational angiogram of left internal carotid artery 4. 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 TIME OUT TIME: 858 PROCEDURE START TIME: 858 PROCEDURE END TIME: 1124 ATTENDING: Luz Armas MD SUPERVISOR METAL CANS (FELLOW): The procedure was performed by the attending without an administrative assistant office manager. The attending performed the following procedural activities: diagnostic angiogram and coil embolization APPROACH: Right common femoral artery using a modified Seldinger technique with a micropuncture needle. 8F sheath placed. Fluoroscopic Radiation Summary: Plane A, Air Kerma: 3539.0 mGy Plane B, Air Kerma: 2762.0 mGy Dose Area Product (DAP): 0.0 mGycm2 Fluoro time: 57:18 min:sec arterial: 264 ml of OMNIPAQUE 300 INFORMED CONSENT: The procedures risks, benefits, and alternatives were discussed with the patient and any available family. They agreed to proceed. All questions were answered. 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 After careful consideration of treatment options, the angiogram was performed with intent to treat by endovascular coil embolization. TECHNIQUE: After informed consent the patient was brought to the angiography suite and a formal timeout was performed identifying the patient by name, MRN, and date of . General endotracheal anesthesia was smoothly induced and all appropriate lines were placed by anesthesia. Both groin regions were prepped and draped in the usual sterile fashion. The right common femoral artery was entered using modified Seldinger technique. A 6F sheath was placed over a 0.035 PTFE floppy wire. A 5F diagnostic catheter in conjunction with a .035 angled Glidewire was used to selectively catheterize the following vessels: Brachiocephalic vascular family: Right common carotid artery, intracranial views. Standard AP, lateral and oblique views. Left carotid vascular family: Left internal carotid artery, intracranial views. Standard AP, lateral and oblique views. Left subclavian vascular family: Left vertebral artery, intracranial views. Standard AP, lateral and Angy's views. Right femoral artery After each vessel was selected multiple AP, lateral, oblique and magnified angiographic runs were performed with filming over the head and neck. FINDINGS: LEFT INTERNAL CAROTID ARTERY INJECTION (cranial): DSA images of the left anterior intracranial circulation demonstrate normal course and caliber of the petrous, cavernous and supraclinoid segments of the internal carotid artery. The ophthalmic artery origin, course and caliber are normal. There is no visualized posterior communicating artery. ? The anterior choroidal artery is normal. M1 and A1 segments are normal. MCA and ALFREDA distributions are normal. There is filling across the anterior communicating artery to the contralateral ALFREDA. ?There is a 6.8mmx 4.89mmx3.36mm with a 6.47mm neck left A1/A2 medially pointing aneurysm. ? Capillary and venous phases are normal. No aneurysm or arteriovenous malformation is identified. LEFT VERTEBRAL ARTERY INJECTION: DSA images of the posterior intracranial circulation demonstrate normal course and caliber of the distal left vertebral artery. The vertebrobasilar confluence is normal. There is reflux of contrast down the right vertebral artery. The basilar segment is normal. ?There is a 6.3mmx5.83mmx4.37mm with a 2.97mm neck. ?Bilateral PICAs are normal Bilateral AICAs are normal.. Bilateral SCAs are normal. 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 The capillary and venous phases are normal. BASED ON THE ABOVE FINDINGS, WE PROCEEDED WITH THE FOLLOWING INTERVENTION: PROCEDURE: The patient was fully heparinized. A post heparinization ACT of greater than twice baseline was achieved and maintained throughout the case. A working angle for coil embolization was determined from the rotational angiogram. Under high magnification fluoroscopic roadmap control, an exchange length glidewire was placed in the left petrous internal carotid artery. A 6F Benchmark guidesheath was then exchanged for the diagnostic catheter. An 0.016 Sheldahl SL-10 microcatheter was then manipulated into the aneurysm over a 0.014 Syncro-2 microwire. An SL-10 microcatheter advanced over the Synchro wire into the right A2 segment. A 3mm x21mm neuroform Trion stent was then deployed across the neck of the aneurysm from the right A2 to the left A1. Follow-up angiography performed. The stent delivery system was removed and follow-up angiography performed. An SL-10 microcatheter advanced over the Synchro wire into the left A2 segment. A 3mm x21mm neuroform Trion stent was then deployed across the neck of the aneurysm from the left A2 to the left A1. Follow-up angiography performed. The stent delivery system was removed and follow-up angiography performed. Coil embolization was then initiated. A total of 6 coils were detached in the aneurysm as follows: Target 360 Soft: [id number] Target 360 Soft [id number] Target 360 Soft [id number] Target 360 Soft [id number] Target 360 Ultra [id number] Target 360 Ultra [id number] Control angiography was performed intermittently during the embolization process. Follow-up angiography was performed. The pusher wire and microcatheter were then removed as a a unit Final follow-up angiography was performed catheter position in the left internal carotid artery. 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 A working angle for coil embolization was determined from the best oblique view. Under high magnification fluoroscopic roadmap control, an exchange length glidewire was placed in the left vertebral artery. A 6F Benchmark guidesheath was then exchanged for the diagnostic catheter. An 0.016 Sheldahl SL-10 microcatheter was then manipulated into the aneurysm over a 0.014 Syncro-2 microwire. Coil embolization was started however the coil mass would fall out of the aneurysm. An SL-10 microcatheter advanced over the Synchro wire into the left SERVICE CREW LEADER segment. A 3mm x24mm neuroform Trion stent was then deployed across the neck of the aneurysm from the left SERVICE CREW LEADER to the basilar artery. Follow-up angiography performed. The stent delivery system was removed and follow-up angiography performed. Follow-up angiography performed. The stent delivery system was removed and follow-up angiography performed. Coil embolization was then initiated. A total of 6 coils were detached in the aneurysm as follows: Target 360 Soft: [id number] Target 360 Soft [id number] Target 360 Ultra [id number] Target 360 Ultra 2.6sgf8ul Target 360 Ultra 2.9ddb8wv Target 360 Ultra [id number] Control angiography was performed intermittently during the embolization process. Follow-up angiography was performed. The pusher wire and microcatheter were then removed as a a unit Final follow-up angiography was performed catheter position in the left internal carotid artery. Hemostasis at the right groin was obtained by Angioseal. The patient was transferred to the NSICU in stable condition without immediate complication. All the coils and stents used are MRI compatible. There were no complications during the procedure. POST-INTERVENTION FINDINGS: LEFT INTERNAL CAROTID (Post-stenting): Stents are in good position across the aneurysm neck and is widely patent, with no intraluminal filling defects. No intracranial branch occlusions. LEFT INTERNAL CAROTID (Post-coiling): There has been good occlusion of the aneurysm. No intracranial branch occlusions. LEFT VERTEBRAL ARTERY (Post-Stenting): Stent is in good position across the aneurysm neck and is widely patent, no intraluminal filling defects. No intracranial branch occlusions. LEFT VERTEBRAL ARTERY (Post-Coiling): There has been good occlusion of the aneurysm. No intracranial branch occlusions. There is retrograde filling of the left ALFREDA from SERVICE CREW LEADER collaterals. RIGHT COMMON CAROTID ARTERY INJECTION (cranial): DSA images of the right anterior intracranial circulation demonstrate normal course and caliber of the petrous, cavernous and supraclinoid segments of the internal carotid artery. The ophthalmic artery origin, course and caliber are normal. There is no visualized posterior communicating artery. The anterior choroidal artery is normal. M1 and A1 segments are normal. MCA and ALFREDA distributions are normal. There is filling across the anterior communicating artery to the contralateral ALFREDA and MCA. There is slow anterograde filling of the contralateral ALFREDA after basilar treatment. Capillary and venous phases are normal. LEFT INTERNAL CAROTID ARTERY (Post-basilar aneurysm treatment): There is slow anterograde filling of the ipsilateral ALFREDA but with microcatheter injection, there is patency of the intraluminal stent. RIGHT FEMORAL ARTERY: DSA images of the right common femoral artery demonstrate normal course and caliber of the vessel. The sheath is placed in the straight segment of the artery, above the bifurcation. There is no evidence of dissection or pseudoaneurysm. IMPRESSION: 1. 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 2. 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 3. There is slow anterograde filling of the left ALFREDA post stenting with retrograde left SERVICE [employer] LEADER collateral filling. However, no intraluminal clot is seen in stent or vessel with microcatheter evaluation. Luz Armas MD Endovascular Neuroradiology Baster Hand: [facility] Transcribe Date/Time: Oct 17 2020 1:10P Dictated by : LUZ ARMAS MD This examination was interpreted and the report reviewed and electronically signed by: LUZ ARMAS MD on Oct 17 2020 1:32PM EST Normal [facility] NIL EXIST CATH ANGIO F/Uon 0 10-17-2020 NIL EXIST CATH ANGIO F/U Final Report DATE OF EXAM: Oct 17 2020 11:37AM A6A [id number] - NIL EXIST CATH ANGIO F/U / PROCEDURE REASON: ACOMM, Basilar Aneurysm Coiling Physician Interpretation Endovascular Surgical Neuroradiology Report PROCEDURE: 1. IADSA of the bilateral carotid arteries and left vertebral artery. 2. Y-Stent coiling of ALFREDA A1-A2 aneurysm 3. 3D Rotational angiogram of left internal carotid artery 4. 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 TIME OUT TIME: 858 PROCEDURE START TIME: 858 PROCEDURE END TIME: 1124 ATTENDING: Luz Armas MD SUPERVISOR METAL CANS (FELLOW): The procedure was performed by the attending without an administrative assistant office manager. The attending performed the following procedural activities: diagnostic angiogram and coil embolization APPROACH: Right common femoral artery using a modified Seldinger technique with a micropuncture needle. 8F sheath placed. Fluoroscopic Radiation Summary: Plane A, Air Kerma: 3539.0 mGy Plane B, Air Kerma: 2762.0 mGy Dose Area Product (DAP): 0.0 mGycm2 Fluoro time: 57:18 min:sec arterial: 264 ml of OMNIPAQUE 300 INFORMED CONSENT: The procedures risks, benefits, and alternatives were discussed with the patient and any available family. They agreed to proceed. All questions were answered. 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 After careful consideration of treatment options, the angiogram was performed with intent to treat by endovascular coil embolization. TECHNIQUE: After informed consent the patient was brought to the angiography suite and a formal timeout was performed identifying the patient by name, MRN, and date of . General endotracheal anesthesia was smoothly induced and all appropriate lines were placed by anesthesia. Both groin regions were prepped and draped in the usual sterile fashion. The right common femoral artery was entered using modified Seldinger technique. A 6F sheath was placed over a 0.035 PTFE floppy wire. A 5F diagnostic catheter in conjunction with a .035 angled Glidewire was used to selectively catheterize the following vessels: Brachiocephalic vascular family: Right common carotid artery, intracranial views. Standard AP, lateral and oblique views. Left carotid vascular family: Left internal carotid artery, intracranial views. Standard AP, lateral and oblique views. Left subclavian vascular family: Left vertebral artery, intracranial views. Standard AP, lateral and Angy's views. Right femoral artery After each vessel was selected multiple AP, lateral, oblique and magnified angiographic runs were performed with filming over the head and neck. FINDINGS: LEFT INTERNAL CAROTID ARTERY INJECTION (cranial): DSA images of the left anterior intracranial circulation demonstrate normal course and caliber of the petrous, cavernous and supraclinoid segments of the internal carotid artery. The ophthalmic artery origin, course and caliber are normal. There is no visualized posterior communicating artery. ? The anterior choroidal artery is normal. M1 and A1 segments are normal. MCA and ALFREDA distributions are normal. There is filling across the anterior communicating artery to the contralateral ALFREDA. ?There is a 6.8mmx 4.89mmx3.36mm with a 6.47mm neck left A1/A2 medially pointing aneurysm. ? Capillary and venous phases are normal. No aneurysm or arteriovenous malformation is identified. LEFT VERTEBRAL ARTERY INJECTION: DSA images of the posterior intracranial circulation demonstrate normal course and caliber of the distal left vertebral artery. The vertebrobasilar confluence is normal. There is reflux of contrast down the right vertebral artery. The basilar segment is normal. ?There is a 6.3mmx5.83mmx4.37mm with a 2.97mm neck. ?Bilateral PICAs are normal Bilateral AICAs are normal.. Bilateral SCAs are normal. 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 The capillary and venous phases are normal. BASED ON THE ABOVE FINDINGS, WE PROCEEDED WITH THE FOLLOWING INTERVENTION: PROCEDURE: The patient was fully heparinized. A post heparinization ACT of greater than twice baseline was achieved and maintained throughout the case. A working angle for coil embolization was determined from the rotational angiogram. Under high magnification fluoroscopic roadmap control, an exchange length glidewire was placed in the left petrous internal carotid artery. A 6F Benchmark guidesheath was then exchanged for the diagnostic catheter. An 0.016 Sheldahl SL-10 microcatheter was then manipulated into the aneurysm over a 0.014 Syncro-2 microwire. An SL-10 microcatheter advanced over the Synchro wire into the right A2 segment. A 3mm x21mm neuroform Trion stent was then deployed across the neck of the aneurysm from the right A2 to the left A1. Follow-up angiography performed. The stent delivery system was removed and follow-up angiography performed. An SL-10 microcatheter advanced over the Synchro wire into the left A2 segment. A 3mm x21mm neuroform Trion stent was then deployed across the neck of the aneurysm from the left A2 to the left A1. Follow-up angiography performed. The stent delivery system was removed and follow-up angiography performed. Coil embolization was then initiated. A total of 6 coils were detached in the aneurysm as follows: Target 360 Soft: [id number] Target 360 Soft [id number] Target 360 Soft [id number] Target 360 Soft [id number] Target 360 Ultra 4pok60uu Target 360 Ultra 7xdq8go Control angiography was performed intermittently during the embolization process. Follow-up angiography was performed. The pusher wire and microcatheter were then removed as a a unit Final follow-up angiography was performed catheter position in the left internal carotid artery. 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 A working angle for coil embolization was determined from the best oblique view. Under high magnification fluoroscopic roadmap control, an exchange length glidewire was placed in the left vertebral artery. A 6F Benchmark guidesheath was then exchanged for the diagnostic catheter. An 0.016 Sheldahl SL-10 microcatheter was then manipulated into the aneurysm over a 0.014 Syncro-2 microwire. Coil embolization was started however the coil mass would fall out of the aneurysm. An SL-10 microcatheter advanced over the Synchro wire into the left SERVICE CREW LEADER segment. A 3mm x24mm neuroform Trion stent was then deployed across the neck of the aneurysm from the left SERVICE CREW LEADER to the basilar artery. Follow-up angiography performed. The stent delivery system was removed and follow-up angiography performed. Follow-up angiography performed. The stent delivery system was removed and follow-up angiography performed. Coil embolization was then initiated. A total of 6 coils were detached in the aneurysm as follows: Target 360 Soft: [id number] Target 360 Soft [id number] Target 360 Ultra 4xbu7ko Target 360 Ultra 2.7hmv5lq Target 360 Ultra 2.9ehu4iu Target 360 Ultra 1niu2ul Control angiography was performed intermittently during the embolization process. Follow-up angiography was performed. The pusher wire and microcatheter were then removed as a a unit Final follow-up angiography was performed catheter position in the left internal carotid artery. Hemostasis at the right groin was obtained by Angioseal. The patient was transferred to the NSICU in stable condition without immediate complication. All the coils and stents used are MRI compatible. There were no complications during the procedure. POST-INTERVENTION FINDINGS: LEFT INTERNAL CAROTID (Post-stenting): Stents are in good position across the aneurysm neck and is widely patent, with no intraluminal filling defects. No intracranial branch occlusions. LEFT INTERNAL CAROTID (Post-coiling): There has been good occlusion of the aneurysm. No intracranial branch occlusions. LEFT VERTEBRAL ARTERY (Post-Stenting): Stent is in good position across the aneurysm neck and is widely patent, no intraluminal filling defects. No intracranial branch occlusions. LEFT VERTEBRAL ARTERY (Post-Coiling): There has been good occlusion of the aneurysm. No intracranial branch occlusions. There is retrograde filling of the left ALFREDA from SERVICE CREW LEADER collaterals. RIGHT COMMON CAROTID ARTERY INJECTION (cranial): DSA images of the right anterior intracranial circulation demonstrate normal course and caliber of the petrous, cavernous and supraclinoid segments of the internal carotid artery. The ophthalmic artery origin, course and caliber are normal. There is no visualized posterior communicating artery. The anterior choroidal artery is normal. M1 and A1 segments are normal. MCA and ALFREDA distributions are normal. There is filling across the anterior communicating artery to the contralateral ALFREDA and MCA. There is slow anterograde filling of the contralateral ALFREDA after basilar treatment. Capillary and venous phases are normal. LEFT INTERNAL CAROTID ARTERY (Post-basilar aneurysm treatment): There is slow anterograde filling of the ipsilateral ALFREDA but with microcatheter injection, there is patency of the intraluminal stent. RIGHT FEMORAL ARTERY: DSA images of the right common femoral artery demonstrate normal course and caliber of the vessel. The sheath is placed in the straight segment of the artery, above the bifurcation. There is no evidence of dissection or pseudoaneurysm. IMPRESSION: 1. 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 2. 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 3. There is slow anterograde filling of the left ALFREDA post stenting with retrograde left SERVICE [employer]W LEADER collateral filling. However, no intraluminal clot is seen in stent or vessel with microcatheter evaluation. Luz Armas MD Endovascular Neuroradiology Baster Hand: [facility] Transcribe Date/Time: Oct 17 2020 1:10P Dictated by : LUZ ARMAS MD This examination was interpreted and the report reviewed and electronically signed by: LUZ ARMAS MD on Oct 17 2020 1:32PM EST Normal [facility] NIL EXIST CATH ANGIO F/U Final Report DATE OF EXAM: Oct 17 2020 11:37AM A6A 7512 - NIL EXIST CATH ANGIO F/U / PROCEDURE REASON: Embo Physician Interpretation Endovascular Surgical Neuroradiology Report PROCEDURE: 1. IADSA of the bilateral carotid arteries and left vertebral artery. 2. Y-Stent coiling of ALFREDA A1-A2 aneurysm 3. 3D Rotational angiogram of left internal carotid artery 4. 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 TIME OUT TIME: 858 PROCEDURE START TIME: 858 PROCEDURE END TIME: 1124 ATTENDING: Luz Armas MD SUPERVISOR METAL CANS (FELLOW): The procedure was performed by the attending without an administrative assistant office manager. The attending performed the following procedural activities: diagnostic angiogram and coil embolization APPROACH: Right common femoral artery using a modified Seldinger technique with a micropuncture needle. 8F sheath placed. Fluoroscopic Radiation Summary: Plane A, Air Kerma: 3539.0 mGy Plane B, Air Kerma: 2762.0 mGy Dose Area Product (DAP): 0.0 mGycm2 Fluoro time: 57:18 min:sec arterial: 264 ml of OMNIPAQUE 300 INFORMED CONSENT: The procedures risks, benefits, and alternatives were discussed with the patient and any available family. They agreed to proceed. All questions were answered. 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 After careful consideration of treatment options, the angiogram was performed with intent to treat by endovascular coil embolization. TECHNIQUE: After informed consent the patient was brought to the angiography suite and a formal timeout was performed identifying the patient by name, MRN, and date of . General endotracheal anesthesia was smoothly induced and all appropriate lines were placed by anesthesia. Both groin regions were prepped and draped in the usual sterile fashion. The right common femoral artery was entered using modified Seldinger technique. A 6F sheath was placed over a 0.035 PTFE floppy wire. A 5F diagnostic catheter in conjunction with a .035 angled Glidewire was used to selectively catheterize the following vessels: Brachiocephalic vascular family: Right common carotid artery, intracranial views. Standard AP, lateral and oblique views. Left carotid vascular family: Left internal carotid artery, intracranial views. Standard AP, lateral and oblique views. Left subclavian vascular family: Left vertebral artery, intracranial views. Standard AP, lateral and Angy's views. Right femoral artery After each vessel was selected multiple AP, lateral, oblique and magnified angiographic runs were performed with filming over the head and neck. FINDINGS: LEFT INTERNAL CAROTID ARTERY INJECTION (cranial): DSA images of the left anterior intracranial circulation demonstrate normal course and caliber of the petrous, cavernous and supraclinoid segments of the internal carotid artery. The ophthalmic artery origin, course and caliber are normal. There is no visualized posterior communicating artery. ? The anterior choroidal artery is normal. M1 and A1 segments are normal. MCA and ALFREDA distributions are normal. There is filling across the anterior communicating artery to the contralateral ALFREDA. ?There is a 6.8mmx 4.89mmx3.36mm with a 6.47mm neck left A1/A2 medially pointing aneurysm. ? Capillary and venous phases are normal. No aneurysm or arteriovenous malformation is identified. LEFT VERTEBRAL ARTERY INJECTION: DSA images of the posterior intracranial circulation demonstrate normal course and caliber of the distal left vertebral artery. The vertebrobasilar confluence is normal. There is reflux of contrast down the right vertebral artery. The basilar segment is normal. ?There is a 6.3mmx5.83mmx4.37mm with a 2.97mm neck. ?Bilateral PICAs are normal Bilateral AICAs are normal.. Bilateral SCAs are normal. 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 The capillary and venous phases are normal. BASED ON THE ABOVE FINDINGS, WE PROCEEDED WITH THE FOLLOWING INTERVENTION: PROCEDURE: The patient was fully heparinized. A post heparinization ACT of greater than twice baseline was achieved and maintained throughout the case. A working angle for coil embolization was determined from the rotational angiogram. Under high magnification fluoroscopic roadmap control, an exchange length glidewire was placed in the left petrous internal carotid artery. A 6F Benchmark guidesheath was then exchanged for the diagnostic catheter. An 0.016 Sheldahl SL-10 microcatheter was then manipulated into the aneurysm over a 0.014 Syncro-2 microwire. An SL-10 microcatheter advanced over the Synchro wire into the right A2 segment. A 3mm x21mm neuroform Trion stent was then deployed across the neck of the aneurysm from the right A2 to the left A1. Follow-up angiography performed. The stent delivery system was removed and follow-up angiography performed. An SL-10 microcatheter advanced over the Synchro wire into the left A2 segment. A 3mm x21mm neuroform Trion stent was then deployed across the neck of the aneurysm from the left A2 to the left A1. Follow-up angiography performed. The stent delivery system was removed and follow-up angiography performed. Coil embolization was then initiated. A total of 6 coils were detached in the aneurysm as follows: Target 360 Soft: [id number] Target 360 Soft [id number] Target 360 Soft [id number] Target 360 Soft [id number] Target 360 Ultra [id number] Target 360 Ultra 3gen0ey Control angiography was performed intermittently during the embolization process. Follow-up angiography was performed. The pusher wire and microcatheter were then removed as a a unit Final follow-up angiography was performed catheter position in the left internal carotid artery. 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 A working angle for coil embolization was determined from the best oblique view. Under high magnification fluoroscopic roadmap control, an exchange length glidewire was placed in the left vertebral artery. A 6F Benchmark guidesheath was then exchanged for the diagnostic catheter. An 0.016 Sheldahl SL-10 microcatheter was then manipulated into the aneurysm over a 0.014 Syncro-2 microwire. Coil embolization was started however the coil mass would fall out of the aneurysm. An SL-10 microcatheter advanced over the Synchro wire into the left SERVICE CREW LEADER segment. A 3mm x24mm neuroform Trion stent was then deployed across the neck of the aneurysm from the left SERVICE CREW LEADER to the basilar artery. Follow-up angiography performed. The stent delivery system was removed and follow-up angiography performed. Follow-up angiography performed. The stent delivery system was removed and follow-up angiography performed. Coil embolization was then initiated. A total of 6 coils were detached in the aneurysm as follows: Target 360 Soft: [id number] Target 360 Soft 5swh0sn Target 360 Ultra 2wvk7pq Target 360 Ultra 2.2vqs0aw Target 360 Ultra 2.8lwu1oh Target 360 Ultra 1fzv9rp Control angiography was performed intermittently during the embolization process. Follow-up angiography was performed. The pusher wire and microcatheter were then removed as a a unit Final follow-up angiography was performed catheter position in the left internal carotid artery. Hemostasis at the right groin was obtained by Angioseal. The patient was transferred to the NSICU in stable condition without immediate complication. All the coils and stents used are MRI compatible. There were no complications during the procedure. POST-INTERVENTION FINDINGS: LEFT INTERNAL CAROTID (Post-stenting): Stents are in good position across the aneurysm neck and is widely patent, with no intraluminal filling defects. No intracranial branch occlusions. LEFT INTERNAL CAROTID (Post-coiling): There has been good occlusion of the aneurysm. No intracranial branch occlusions. LEFT VERTEBRAL ARTERY (Post-Stenting): Stent is in good position across the aneurysm neck and is widely patent, no intraluminal filling defects. No intracranial branch occlusions. LEFT VERTEBRAL ARTERY (Post-Coiling): There has been good occlusion of the aneurysm. No intracranial branch occlusions. There is retrograde filling of the left ALFREDA from SERVICE CREW LEADER collaterals. RIGHT COMMON CAROTID ARTERY INJECTION (cranial): DSA images of the right anterior intracranial circulation demonstrate normal course and caliber of the petrous, cavernous and supraclinoid segments of the internal carotid artery. The ophthalmic artery origin, course and caliber are normal. There is no visualized posterior communicating artery. The anterior choroidal artery is normal. M1 and A1 segments are normal. MCA and ALFREDA distributions are normal. There is filling across the anterior communicating artery to the contralateral ALFREDA and MCA. There is slow anterograde filling of the contralateral ALFREDA after basilar treatment. Capillary and venous phases are normal. LEFT INTERNAL CAROTID ARTERY (Post-basilar aneurysm treatment): There is slow anterograde filling of the ipsilateral ALFREDA but with microcatheter injection, there is patency of the intraluminal stent. RIGHT FEMORAL ARTERY: DSA images of the right common femoral artery demonstrate normal course and caliber of the vessel. The sheath is placed in the straight segment of the artery, above the bifurcation. There is no evidence of dissection or pseudoaneurysm. IMPRESSION: 1. 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 2. 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 3. There is slow anterograde filling of the left ALFREDA post stenting with retrograde left SERVICE [employer] LEADER collateral filling. However, no intraluminal clot is seen in stent or vessel with microcatheter evaluation. Luz Armas MD Endovascular Neuroradiology Baster Hand: [id number] Transcribe Date/Time: Oct 17 2020 1:10P Dictated by : LUZ ARMAS MD This examination was interpreted and the report reviewed and electronically signed by: LUZ ARMAS MD on Oct 17 2020 1:32PM EST Normal [facility] NIL EXIST CATH ANGIO F/U Final Report DATE OF EXAM: Oct 17 2020 11:37AM A6A [id number] - NIL EXIST CATH ANGIO F/U / PROCEDURE REASON: ACOMM, Basilar Aneurysm Coiling Physician Interpretation Endovascular Surgical Neuroradiology Report PROCEDURE: 1. IADSA of the bilateral carotid arteries and left vertebral artery. 2. Y-Stent coiling of ALFREDA A1-A2 aneurysm 3. 3D Rotational angiogram of left internal carotid artery 4. 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 TIME OUT TIME: 858 PROCEDURE START TIME: 858 PROCEDURE END TIME: 1124 ATTENDING: Luz Armas MD SUPERVISOR MET[employer] CANS (FELLOW): The procedure was performed by the attending without an administrative assistant office manager. The attending performed the following procedural activities: diagnostic angiogram and coil embolization APPROACH: Right common femoral artery using a modified Seldinger technique with a micropuncture needle. 8F sheath placed. Fluoroscopic Radiation Summary: Plane A, Air Kerma: 3539.0 mGy Plane B, Air Kerma: 2762.0 mGy Dose Area Product (DAP): 0.0 mGycm2 Fluoro time: 57:18 min:sec arterial: 264 ml of OMNIPAQUE 300 INFORMED CONSENT: The procedures risks, benefits, and alternatives were discussed with the patient and any available family. They agreed to proceed. All questions were answered. 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 After careful consideration of treatment options, the angiogram was performed with intent to treat by endovascular coil embolization. TECHNIQUE: After informed consent the patient was brought to the angiography suite and a formal timeout was performed identifying the patient by name, MRN, and date of . General endotracheal anesthesia was smoothly induced and all appropriate lines were placed by anesthesia. Both groin regions were prepped and draped in the usual sterile fashion. The right common femoral artery was entered using modified Seldinger technique. A 6F sheath was placed over a 0.035 PTFE floppy wire. A 5F diagnostic catheter in conjunction with a .035 angled Glidewire was used to selectively catheterize the following vessels: Brachiocephalic vascular family: Right common carotid artery, intracranial views. Standard AP, lateral and oblique views. Left carotid vascular family: Left internal carotid artery, intracranial views. Standard AP, lateral and oblique views. Left subclavian vascular family: Left vertebral artery, intracranial views. Standard AP, lateral and Angy's views. Right femoral artery After each vessel was selected multiple AP, lateral, oblique and magnified angiographic runs were performed with filming over the head and neck. FINDINGS: LEFT INTERNAL CAROTID ARTERY INJECTION (cranial): DSA images of the left anterior intracranial circulation demonstrate normal course and caliber of the petrous, cavernous and supraclinoid segments of the internal carotid artery. The ophthalmic artery origin, course and caliber are normal. There is no visualized posterior communicating artery. ? The anterior choroidal artery is normal. M1 and A1 segments are normal. MCA and ALFREDA distributions are normal. There is filling across the anterior communicating artery to the contralateral ALFREDA. ?There is a 6.8mmx 4.89mmx3.36mm with a 6.47mm neck left A1/A2 medially pointing aneurysm. ? Capillary and venous phases are normal. No aneurysm or arteriovenous malformation is identified. LEFT VERTEBRAL ARTERY INJECTION: DSA images of the posterior intracranial circulation demonstrate normal course and caliber of the distal left vertebral artery. The vertebrobasilar confluence is normal. There is reflux of contrast down the right vertebral artery. The basilar segment is normal. ?There is a 6.3mmx5.83mmx4.37mm with a 2.97mm neck. ?Bilateral PICAs are normal Bilateral AICAs are normal.. Bilateral SCAs are normal. 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 The capillary and venous phases are normal. BASED ON THE ABOVE FINDINGS, WE PROCEEDED WITH THE FOLLOWING INTERVENTION: PROCEDURE: The patient was fully heparinized. A post heparinization ACT of greater than twice baseline was achieved and maintained throughout the case. A working angle for coil embolization was determined from the rotational angiogram. Under high magnification fluoroscopic roadmap control, an exchange length glidewire was placed in the left petrous internal carotid artery. A 6F Benchmark guidesheath was then exchanged for the diagnostic catheter. An 0.016 Sheldahl SL-10 microcatheter was then manipulated into the aneurysm over a 0.014 Syncro-2 microwire. An SL-10 microcatheter advanced over the Synchro wire into the right A2 segment. A 3mm x21mm neuroform Trion stent was then deployed across the neck of the aneurysm from the right A2 to the left A1. Follow-up angiography performed. The stent delivery system was removed and follow-up angiography performed. An SL-10 microcatheter advanced over the Synchro wire into the left A2 segment. A 3mm x21mm neuroform Trion stent was then deployed across the neck of the aneurysm from the left A2 to the left A1. Follow-up angiography performed. The stent delivery system was removed and follow-up angiography performed. Coil embolization was then initiated. A total of 6 coils were detached in the aneurysm as follows: Target 360 Soft: [id number] Target 360 Soft 4xng31mp Target 360 Soft 7uwx22pt Target 360 Soft 8pfn80rf Target 360 Ultra 6hug00mb Target 360 Ultra 8lsy0ff Control angiography was performed intermittently during the embolization process. Follow-up angiography was performed. The pusher wire and microcatheter were then removed as a a unit Final follow-up angiography was performed catheter position in the left internal carotid artery. 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 A working angle for coil embolization was determined from the best oblique view. Under high magnification fluoroscopic roadmap control, an exchange length glidewire was placed in the left vertebral artery. A 6F Benchmark guidesheath was then exchanged for the diagnostic catheter. An 0.016 Sheldahl SL-10 microcatheter was then manipulated into the aneurysm over a 0.014 Syncro-2 microwire. Coil embolization was started however the coil mass would fall out of the aneurysm. An SL-10 microcatheter advanced over the Synchro wire into the left SERVICE CREW LEADER segment. A 3mm x24mm neuroform Trion stent was then deployed across the neck of the aneurysm from the left SERVICE CREW LEADER to the basilar artery. Follow-up angiography performed. The stent delivery system was removed and follow-up angiography performed. Follow-up angiography performed. The stent delivery system was removed and follow-up angiography performed. Coil embolization was then initiated. A total of 6 coils were detached in the aneurysm as follows: Target 360 Soft: [id number] Target 360 Soft 1tlc6he Target 360 Ultra 4hrf0kq Target 360 Ultra 2.9ptf7md Target 360 Ultra 2.9nks7fg Target 360 Ultra 6nqk6qj Control angiography was performed intermittently during the embolization process. Follow-up angiography was performed. The pusher wire and microcatheter were then removed as a a unit Final follow-up angiography was performed catheter position in the left internal carotid artery. Hemostasis at the right groin was obtained by Angioseal. The patient was transferred to the NSICU in stable condition without immediate complication. All the coils and stents used are MRI compatible. There were no complications during the procedure. POST-INTERVENTION FINDINGS: LEFT INTERNAL CAROTID (Post-stenting): Stents are in good position across the aneurysm neck and is widely patent, with no intraluminal filling defects. No intracranial branch occlusions. LEFT INTERNAL CAROTID (Post-coiling): There has been good occlusion of the aneurysm. No intracranial branch occlusions. LEFT VERTEBRAL ARTERY (Post-Stenting): Stent is in good position across the aneurysm neck and is widely patent, no intraluminal filling defects. No intracranial branch occlusions. LEFT VERTEBRAL ARTERY (Post-Coiling): There has been good occlusion of the aneurysm. No intracranial branch occlusions. There is retrograde filling of the left ALFREDA from SERVICE CREW LEADER collaterals. RIGHT COMMON CAROTID ARTERY INJECTION (cranial): DSA images of the right anterior intracranial circulation demonstrate normal course and caliber of the petrous, cavernous and supraclinoid segments of the internal carotid artery. The ophthalmic artery origin, course and caliber are normal. There is no visualized posterior communicating artery. The anterior choroidal artery is normal. M1 and A1 segments are normal. MCA and ALFREDA distributions are normal. There is filling across the anterior communicating artery to the contralateral ALFREDA and MCA. There is slow anterograde filling of the contralateral ALFREDA after basilar treatment. Capillary and venous phases are normal. LEFT INTERNAL CAROTID ARTERY (Post-basilar aneurysm treatment): There is slow anterograde filling of the ipsilateral ALFREDA but with microcatheter injection, there is patency of the intraluminal stent. RIGHT FEMORAL ARTERY: DSA images of the right common femoral artery demonstrate normal course and caliber of the vessel. The sheath is placed in the straight segment of the artery, above the bifurcation. There is no evidence of dissection or pseudoaneurysm. IMPRESSION: 1. 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 2. 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 3. There is slow anterograde filling of the left ALFREDA post stenting with retrograde left SERVICE [employer]W LEADER collateral filling. However, no intraluminal clot is seen in stent or vessel with microcatheter evaluation. Luz Armas MD Endovascular Neuroradiology Baster Hand: WALLY Transcribe Date/Time: Oct 17 2020 1:10P Dictated by : LUZ ARMAS MD This examination was interpreted and the report reviewed and electronically signed by: LUZ ARMAS MD on Oct 17 2020 1:32PM EST Normal [facility] NIL EXIST CATH ANGIO F/U Final Report DATE OF EXAM: Oct 17 2020 11:37AM A6A 7512 - NIL EXIST CATH ANGIO F/U / PROCEDURE REASON: ACOMM, Basilar Aneurysm Coiling Physician Interpretation Endovascular Surgical Neuroradiology Report PROCEDURE: 1. IADSA of the bilateral carotid arteries and left vertebral artery. 2. Y-Stent coiling of ALFREDA A1-A2 aneurysm 3. 3D Rotational angiogram of left internal carotid artery 4. 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 TIME OUT TIME: 858 PROCEDURE START TIME: 858 PROCEDURE END TIME: 1124 ATTENDING: Luz Armas MD SUPERVISOR MET[employer] CANS (FELLOW): The procedure was performed by the attending without an administrative assistant office manager. The attending performed the following procedural activities: diagnostic angiogram and coil embolization APPROACH: Right common femoral artery using a modified Seldinger technique with a micropuncture needle. 8F sheath placed. Fluoroscopic Radiation Summary: Plane A, Air Kerma: 3539.0 mGy Plane B, Air Kerma: 2762.0 mGy Dose Area Product (DAP): 0.0 mGycm2 Fluoro time: 57:18 min:sec arterial: 264 ml of OMNIPAQUE 300 INFORMED CONSENT: The procedures risks, benefits, and alternatives were discussed with the patient and any available family. They agreed to proceed. All questions were answered. 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 After careful consideration of treatment options, the angiogram was performed with intent to treat by endovascular coil embolization. TECHNIQUE: After informed consent the patient was brought to the angiography suite and a formal timeout was performed identifying the patient by name, MRN, and date of . General endotracheal anesthesia was smoothly induced and all appropriate lines were placed by anesthesia. Both groin regions were prepped and draped in the usual sterile fashion. The right common femoral artery was entered using modified Seldinger technique. A 6F sheath was placed over a 0.035 PTFE floppy wire. A 5F diagnostic catheter in conjunction with a .035 angled Glidewire was used to selectively catheterize the following vessels: Brachiocephalic vascular family: Right common carotid artery, intracranial views. Standard AP, lateral and oblique views. Left carotid vascular family: Left internal carotid artery, intracranial views. Standard AP, lateral and oblique views. Left subclavian vascular family: Left vertebral artery, intracranial views. Standard AP, lateral and Angy's views. Right femoral artery After each vessel was selected multiple AP, lateral, oblique and magnified angiographic runs were performed with filming over the head and neck. FINDINGS: LEFT INTERNAL CAROTID ARTERY INJECTION (cranial): DSA images of the left anterior intracranial circulation demonstrate normal course and caliber of the petrous, cavernous and supraclinoid segments of the internal carotid artery. The ophthalmic artery origin, course and caliber are normal. There is no visualized posterior communicating artery. ? The anterior choroidal artery is normal. M1 and A1 segments are normal. MCA and ALFREDA distributions are normal. There is filling across the anterior communicating artery to the contralateral ALFREDA. ?There is a 6.8mmx 4.89mmx3.36mm with a 6.47mm neck left A1/A2 medially pointing aneurysm. ? Capillary and venous phases are normal. No aneurysm or arteriovenous malformation is identified. LEFT VERTEBRAL ARTERY INJECTION: DSA images of the posterior intracranial circulation demonstrate normal course and caliber of the distal left vertebral artery. The vertebrobasilar confluence is normal. There is reflux of contrast down the right vertebral artery. The basilar segment is normal. ?There is a 6.3mmx5.83mmx4.37mm with a 2.97mm neck. ?Bilateral PICAs are normal Bilateral AICAs are normal.. Bilateral SCAs are normal. 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 The capillary and venous phases are normal. BASED ON THE ABOVE FINDINGS, WE PROCEEDED WITH THE FOLLOWING INTERVENTION: PROCEDURE: The patient was fully heparinized. A post heparinization ACT of greater than twice baseline was achieved and maintained throughout the case. A working angle for coil embolization was determined from the rotational angiogram. Under high magnification fluoroscopic roadmap control, an exchange length glidewire was placed in the left petrous internal carotid artery. A 6F Benchmark guidesheath was then exchanged for the diagnostic catheter. An 0.016 Sheldahl SL-10 microcatheter was then manipulated into the aneurysm over a 0.014 Syncro-2 microwire. An SL-10 microcatheter advanced over the Synchro wire into the right A2 segment. A 3mm x21mm neuroform Trion stent was then deployed across the neck of the aneurysm from the right A2 to the left A1. Follow-up angiography performed. The stent delivery system was removed and follow-up angiography performed. An SL-10 microcatheter advanced over the Synchro wire into the left A2 segment. A 3mm x21mm neuroform Trion stent was then deployed across the neck of the aneurysm from the left A2 to the left A1. Follow-up angiography performed. The stent delivery system was removed and follow-up angiography performed. Coil embolization was then initiated. A total of 6 coils were detached in the aneurysm as follows: Target 360 Soft: [id number] Target 360 Soft 2fqt32uh Target 360 Soft 7ocs69dl Target 360 Soft 8eet56lb Target 360 Ultra 7fsi60vl Target 360 Ultra 4gcx7vo Control angiography was performed intermittently during the embolization process. Follow-up angiography was performed. The pusher wire and microcatheter were then removed as a a unit Final follow-up angiography was performed catheter position in the left internal carotid artery. 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 A working angle for coil embolization was determined from the best oblique view. Under high magnification fluoroscopic roadmap control, an exchange length glidewire was placed in the left vertebral artery. A 6F Benchmark guidesheath was then exchanged for the diagnostic catheter. An 0.016 Sheldahl SL-10 microcatheter was then manipulated into the aneurysm over a 0.014 Syncro-2 microwire. Coil embolization was started however the coil mass would fall out of the aneurysm. An SL-10 microcatheter advanced over the Synchro wire into the left SERVICE CREW LEADER segment. A 3mm x24mm neuroform Trion stent was then deployed across the neck of the aneurysm from the left SERVICE CREW LEADER to the basilar artery. Follow-up angiography performed. The stent delivery system was removed and follow-up angiography performed. Follow-up angiography performed. The stent delivery system was removed and follow-up angiography performed. Coil embolization was then initiated. A total of 6 coils were detached in the aneurysm as follows: Target 360 Soft: [id number] Target 360 Soft 0wul0qb Target 360 Ultra 0kef3ic Target 360 Ultra 2.3anf4pq Target 360 Ultra 2.8euy5nn Target 360 Ultra 8pmv8zg Control angiography was performed intermittently during the embolization process. Follow-up angiography was performed. The pusher wire and microcatheter were then removed as a a unit Final follow-up angiography was performed catheter position in the left internal carotid artery. Hemostasis at the right groin was obtained by Angioseal. The patient was transferred to the NSICU in stable condition without immediate complication. All the coils and stents used are MRI compatible. There were no complications during the procedure. POST-INTERVENTION FINDINGS: LEFT INTERNAL CAROTID (Post-stenting): Stents are in good position across the aneurysm neck and is widely patent, with no intraluminal filling defects. No intracranial branch occlusions. LEFT INTERNAL CAROTID (Post-coiling): There has been good occlusion of the aneurysm. No intracranial branch occlusions. LEFT VERTEBRAL ARTERY (Post-Stenting): Stent is in good position across the aneurysm neck and is widely patent, no intraluminal filling defects. No intracranial branch occlusions. LEFT VERTEBRAL ARTERY (Post-Coiling): There has been good occlusion of the aneurysm. No intracranial branch occlusions. There is retrograde filling of the left ALFREDA from SERVICE CREW LEADER collaterals. RIGHT COMMON CAROTID ARTERY INJECTION (cranial): DSA images of the right anterior intracranial circulation demonstrate normal course and caliber of the petrous, cavernous and supraclinoid segments of the internal carotid artery. The ophthalmic artery origin, course and caliber are normal. There is no visualized posterior communicating artery. The anterior choroidal artery is normal. M1 and A1 segments are normal. MCA and ALFREDA distributions are normal. There is filling across the anterior communicating artery to the contralateral ALFREDA and MCA. There is slow anterograde filling of the contralateral ALFREDA after basilar treatment. Capillary and venous phases are normal. LEFT INTERNAL CAROTID ARTERY (Post-basilar aneurysm treatment): There is slow anterograde filling of the ipsilateral ALFREDA but with microcatheter injection, there is patency of the intraluminal stent. RIGHT FEMORAL ARTERY: DSA images of the right common femoral artery demonstrate normal course and caliber of the vessel. The sheath is placed in the straight segment of the artery, above the bifurcation. There is no evidence of dissection or pseudoaneurysm. IMPRESSION: 1. 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 2. 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 3. There is slow anterograde filling of the left ALFREDA post stenting with retrograde left SERVICE [employer]W LEADER collateral filling. However, no intraluminal clot is seen in stent or vessel with microcatheter evaluation. Luz Armas MD Endovascular Neuroradiology Baster Hand: [facility] Transcribe Date/Time: Oct 17 2020 1:10P Dictated by : LUZ ARMAS MD This examination was interpreted and the report reviewed and electronically signed by: LUZ ARMAS MD on Oct 17 2020 1:32PM EST Normal [facility] NIL EXIST CATH ANGIO F/U Final Report DATE OF EXAM: Oct 17 2020 11:37AM A6A 7512 - NIL EXIST CATH ANGIO F/U / PROCEDURE REASON: ACOMM, Basilar Aneurysm Coiling Physician Interpretation Endovascular Surgical Neuroradiology Report PROCEDURE: 1. IADSA of the bilateral carotid arteries and left vertebral artery. 2. Y-Stent coiling of ALFREDA A1-A2 aneurysm 3. 3D Rotational angiogram of left internal carotid artery 4. 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 TIME OUT TIME: 858 PROCEDURE START TIME: 858 PROCEDURE END TIME: 1124 ATTENDING: Luz Armas MD SUPERVISOR MET[employer] (FELLOW): The procedure was performed by the attending without an administrative assistant office manager. The attending performed the following procedural activities: diagnostic angiogram and coil embolization APPROACH: Right common femoral artery using a modified Seldinger technique with a micropuncture needle. 8F sheath placed. Fluoroscopic Radiation Summary: Plane A, Air Kerma: 3539.0 mGy Plane B, Air Kerma: 2762.0 mGy Dose Area Product (DAP): 0.0 mGycm2 Fluoro time: 57:18 min:sec arterial: 264 ml of OMNIPAQUE 300 INFORMED CONSENT: The procedures risks, benefits, and alternatives were discussed with the patient and any available family. They agreed to proceed. All questions were answered. 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 After careful consideration of treatment options, the angiogram was performed with intent to treat by endovascular coil embolization. TECHNIQUE: After informed consent the patient was brought to the angiography suite and a formal timeout was performed identifying the patient by name, MRN, and date of . General endotracheal anesthesia was smoothly induced and all appropriate lines were placed by anesthesia. Both groin regions were prepped and draped in the usual sterile fashion. The right common femoral artery was entered using modified Seldinger technique. A 6F sheath was placed over a 0.035 PTFE floppy wire. A 5F diagnostic catheter in conjunction with a .035 angled Glidewire was used to selectively catheterize the following vessels: Brachiocephalic vascular family: Right common carotid artery, intracranial views. Standard AP, lateral and oblique views. Left carotid vascular family: Left internal carotid artery, intracranial views. Standard AP, lateral and oblique views. Left subclavian vascular family: Left vertebral artery, intracranial views. Standard AP, lateral and Angy's views. Right femoral artery After each vessel was selected multiple AP, lateral, oblique and magnified angiographic runs were performed with filming over the head and neck. FINDINGS: LEFT INTERNAL CAROTID ARTERY INJECTION (cranial): DSA images of the left anterior intracranial circulation demonstrate normal course and caliber of the petrous, cavernous and supraclinoid segments of the internal carotid artery. The ophthalmic artery origin, course and caliber are normal. There is no visualized posterior communicating artery. ? The anterior choroidal artery is normal. M1 and A1 segments are normal. MCA and ALFREDA distributions are normal. There is filling across the anterior communicating artery to the contralateral ALFREDA. ?There is a 6.8mmx 4.89mmx3.36mm with a 6.47mm neck left A1/A2 medially pointing aneurysm. ? Capillary and venous phases are normal. No aneurysm or arteriovenous malformation is identified. LEFT VERTEBRAL ARTERY INJECTION: DSA images of the posterior intracranial circulation demonstrate normal course and caliber of the distal left vertebral artery. The vertebrobasilar confluence is normal. There is reflux of contrast down the right vertebral artery. The basilar segment is normal. ?There is a 6.3mmx5.83mmx4.37mm with a 2.97mm neck. ?Bilateral PICAs are normal Bilateral AICAs are normal.. Bilateral SCAs are normal. 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 The capillary and venous phases are normal. BASED ON THE ABOVE FINDINGS, WE PROCEEDED WITH THE FOLLOWING INTERVENTION: PROCEDURE: The patient was fully heparinized. A post heparinization ACT of greater than twice baseline was achieved and maintained throughout the case. A working angle for coil embolization was determined from the rotational angiogram. Under high magnification fluoroscopic roadmap control, an exchange length glidewire was placed in the left petrous internal carotid artery. A 6F Benchmark guidesheath was then exchanged for the diagnostic catheter. An 0.016 Sheldahl SL-10 microcatheter was then manipulated into the aneurysm over a 0.014 Syncro-2 microwire. An SL-10 microcatheter advanced over the Synchro wire into the right A2 segment. A 3mm x21mm neuroform Trion stent was then deployed across the neck of the aneurysm from the right A2 to the left A1. Follow-up angiography performed. The stent delivery system was removed and follow-up angiography performed. An SL-10 microcatheter advanced over the Synchro wire into the left A2 segment. A 3mm x21mm neuroform Trion stent was then deployed across the neck of the aneurysm from the left A2 to the left A1. Follow-up angiography performed. The stent delivery system was removed and follow-up angiography performed. Coil embolization was then initiated. A total of 6 coils were detached in the aneurysm as follows: Target 360 Soft: [id number] Target 360 Soft [id number] Target 360 Soft [id number] Target 360 Soft [id number] Target 360 Ultra [id number] Target 360 Ultra [id number] Control angiography was performed intermittently during the embolization process. Follow-up angiography was performed. The pusher wire and microcatheter were then removed as a a unit Final follow-up angiography was performed catheter position in the left internal carotid artery. 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 A working angle for coil embolization was determined from the best oblique view. Under high magnification fluoroscopic roadmap control, an exchange length glidewire was placed in the left vertebral artery. A 6F Benchmark guidesheath was then exchanged for the diagnostic catheter. An 0.016 Sheldahl SL-10 microcatheter was then manipulated into the aneurysm over a 0.014 Syncro-2 microwire. Coil embolization was started however the coil mass would fall out of the aneurysm. An SL-10 microcatheter advanced over the Synchro wire into the left SERVICE CREW LEADER segment. A 3mm x24mm neuroform Trion stent was then deployed across the neck of the aneurysm from the left SERVICE CREW LEADER to the basilar artery. Follow-up angiography performed. The stent delivery system was removed and follow-up angiography performed. Follow-up angiography performed. The stent delivery system was removed and follow-up angiography performed. Coil embolization was then initiated. A total of 6 coils were detached in the aneurysm as follows: Target 360 Soft: [id number] Target 360 Soft [id number] Target 360 Ultra 6kuu8on Target 360 Ultra 2.5xiz5to Target 360 Ultra 2.0kdy5if Target 360 Ultra 1cfw7cr Control angiography was performed intermittently during the embolization process. Follow-up angiography was performed. The pusher wire and microcatheter were then removed as a a unit Final follow-up angiography was performed catheter position in the left internal carotid artery. Hemostasis at the right groin was obtained by Angioseal. The patient was transferred to the NSICU in stable condition without immediate complication. All the coils and stents used are MRI compatible. There were no complications during the procedure. POST-INTERVENTION FINDINGS: LEFT INTERNAL CAROTID (Post-stenting): Stents are in good position across the aneurysm neck and is widely patent, with no intraluminal filling defects. No intracranial branch occlusions. LEFT INTERNAL CAROTID (Post-coiling): There has been good occlusion of the aneurysm. No intracranial branch occlusions. LEFT VERTEBRAL ARTERY (Post-Stenting): Stent is in good position across the aneurysm neck and is widely patent, no intraluminal filling defects. No intracranial branch occlusions. LEFT VERTEBRAL ARTERY (Post-Coiling): There has been good occlusion of the aneurysm. No intracranial branch occlusions. There is retrograde filling of the left ALFREDA from SERVICE CREW LEADER collaterals. RIGHT COMMON CAROTID ARTERY INJECTION (cranial): DSA images of the right anterior intracranial circulation demonstrate normal course and caliber of the petrous, cavernous and supraclinoid segments of the internal carotid artery. The ophthalmic artery origin, course and caliber are normal. There is no visualized posterior communicating artery. The anterior choroidal artery is normal. M1 and A1 segments are normal. MCA and ALFREDA distributions are normal. There is filling across the anterior communicating artery to the contralateral ALFREDA and MCA. There is slow anterograde filling of the contralateral ALFREDA after basilar treatment. Capillary and venous phases are normal. LEFT INTERNAL CAROTID ARTERY (Post-basilar aneurysm treatment): There is slow anterograde filling of the ipsilateral ALFREDA but with microcatheter injection, there is patency of the intraluminal stent. RIGHT FEMORAL ARTERY: DSA images of the right common femoral artery demonstrate normal course and caliber of the vessel. The sheath is placed in the straight segment of the artery, above the bifurcation. There is no evidence of dissection or pseudoaneurysm. IMPRESSION: 1. 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 2. 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 3. There is slow anterograde filling of the left ALFREDA post stenting with retrograde left SERV[employer] LEADER collateral filling. However, no intraluminal clot is seen in stent or vessel with microcatheter evaluation. Luz Armas MD Endovascular Neuroradiology Baster Hand: [facility] Transcribe Date/Time: Oct 17 2020 1:10P Dictated by : LUZ ARMAS MD This examination was interpreted and the report reviewed and electronically signed by: LUZ ARMAS MD on Oct 17 2020 1:32PM EST Normal [facility] NIL EXIST CATH ANGIO F/U Final Report DATE OF EXAM: Oct 17 2020 11:37AM A6A 7512 - NIL EXIST CATH ANGIO F/U / PROCEDURE REASON: ACOMM, Basilar Aneurysm Coiling Physician Interpretation Endovascular Surgical Neuroradiology Report PROCEDURE: 1. IADSA of the bilateral carotid arteries and left vertebral artery. 2. Y-Stent coiling of ALFREDA A1-A2 aneurysm 3. 3D Rotational angiogram of left internal carotid artery 4. 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 TIME OUT TIME: 858 PROCEDURE START TIME: 858 PROCEDURE END TIME: 1124 ATTENDING: Luz Armas MD SUPERVISOR MET[employer] (FELLOW): The procedure was performed by the attending without an administrative assistant office manager. The attending performed the following procedural activities: diagnostic angiogram and coil embolization APPROACH: Right common femoral artery using a modified Seldinger technique with a micropuncture needle. 8F sheath placed. Fluoroscopic Radiation Summary: Plane A, Air Kerma: 3539.0 mGy Plane B, Air Kerma: 2762.0 mGy Dose Area Product (DAP): 0.0 mGycm2 Fluoro time: 57:18 min:sec arterial: 264 ml of OMNIPAQUE 300 INFORMED CONSENT: The procedures risks, benefits, and alternatives were discussed with the patient and any available family. They agreed to proceed. All questions were answered. 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 After careful consideration of treatment options, the angiogram was performed with intent to treat by endovascular coil embolization. TECHNIQUE: After informed consent the patient was brought to the angiography suite and a formal timeout was performed identifying the patient by name, MRN, and date of . General endotracheal anesthesia was smoothly induced and all appropriate lines were placed by anesthesia. Both groin regions were prepped and draped in the usual sterile fashion. The right common femoral artery was entered using modified Seldinger technique. A 6F sheath was placed over a 0.035 PTFE floppy wire. A 5F diagnostic catheter in conjunction with a .035 angled Glidewire was used to selectively catheterize the following vessels: Brachiocephalic vascular family: Right common carotid artery, intracranial views. Standard AP, lateral and oblique views. Left carotid vascular family: Left internal carotid artery, intracranial views. Standard AP, lateral and oblique views. Left subclavian vascular family: Left vertebral artery, intracranial views. Standard AP, lateral and Angy's views. Right femoral artery After each vessel was selected multiple AP, lateral, oblique and magnified angiographic runs were performed with filming over the head and neck. FINDINGS: LEFT INTERNAL CAROTID ARTERY INJECTION (cranial): DSA images of the left anterior intracranial circulation demonstrate normal course and caliber of the petrous, cavernous and supraclinoid segments of the internal carotid artery. The ophthalmic artery origin, course and caliber are normal. There is no visualized posterior communicating artery. ? The anterior choroidal artery is normal. M1 and A1 segments are normal. MCA and ALFREDA distributions are normal. There is filling across the anterior communicating artery to the contralateral ALFREDA. ?There is a 6.8mmx 4.89mmx3.36mm with a 6.47mm neck left A1/A2 medially pointing aneurysm. ? Capillary and venous phases are normal. No aneurysm or arteriovenous malformation is identified. LEFT VERTEBRAL ARTERY INJECTION: DSA images of the posterior intracranial circulation demonstrate normal course and caliber of the distal left vertebral artery. The vertebrobasilar confluence is normal. There is reflux of contrast down the right vertebral artery. The basilar segment is normal. ?There is a 6.3mmx5.83mmx4.37mm with a 2.97mm neck. ?Bilateral PICAs are normal Bilateral AICAs are normal.. Bilateral SCAs are normal. 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 The capillary and venous phases are normal. BASED ON THE ABOVE FINDINGS, WE PROCEEDED WITH THE FOLLOWING INTERVENTION: PROCEDURE: The patient was fully heparinized. A post heparinization ACT of greater than twice baseline was achieved and maintained throughout the case. A working angle for coil embolization was determined from the rotational angiogram. Under high magnification fluoroscopic roadmap control, an exchange length glidewire was placed in the left petrous internal carotid artery. A 6F Benchmark guidesheath was then exchanged for the diagnostic catheter. An 0.016 Sheldahl SL-10 microcatheter was then manipulated into the aneurysm over a 0.014 Syncro-2 microwire. An SL-10 microcatheter advanced over the Synchro wire into the right A2 segment. A 3mm x21mm neuroform Trion stent was then deployed across the neck of the aneurysm from the right A2 to the left A1. Follow-up angiography performed. The stent delivery system was removed and follow-up angiography performed. An SL-10 microcatheter advanced over the Synchro wire into the left A2 segment. A 3mm x21mm neuroform Trion stent was then deployed across the neck of the aneurysm from the left A2 to the left A1. Follow-up angiography performed. The stent delivery system was removed and follow-up angiography performed. Coil embolization was then initiated. A total of 6 coils were detached in the aneurysm as follows: Target 360 Soft: [id number] Target 360 Soft [id number] Target 360 Soft [id number] Target 360 Soft [id number] Target 360 Ultra [id number] Target 360 Ultra 2inx3bk Control angiography was performed intermittently during the embolization process. Follow-up angiography was performed. The pusher wire and microcatheter were then removed as a a unit Final follow-up angiography was performed catheter position in the left internal carotid artery. 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 A working angle for coil embolization was determined from the best oblique view. Under high magnification fluoroscopic roadmap control, an exchange length glidewire was placed in the left vertebral artery. A 6F Benchmark guidesheath was then exchanged for the diagnostic catheter. An 0.016 Sheldahl SL-10 microcatheter was then manipulated into the aneurysm over a 0.014 Syncro-2 microwire. Coil embolization was started however the coil mass would fall out of the aneurysm. An SL-10 microcatheter advanced over the Synchro wire into the left SERVICE CREW LEADER segment. A 3mm x24mm neuroform Trion stent was then deployed across the neck of the aneurysm from the left SERVICE CREW LEADER to the basilar artery. Follow-up angiography performed. The stent delivery system was removed and follow-up angiography performed. Follow-up angiography performed. The stent delivery system was removed and follow-up angiography performed. Coil embolization was then initiated. A total of 6 coils were detached in the aneurysm as follows: Target 360 Soft: [id number] Target 360 Soft [id number] Target 360 Ultra 2voy6mo Target 360 Ultra 2.6unu9sf Target 360 Ultra 2.9inj8hl Target 360 Ultra 1eqg3uq Control angiography was performed intermittently during the embolization process. Follow-up angiography was performed. The pusher wire and microcatheter were then removed as a a unit Final follow-up angiography was performed catheter position in the left internal carotid artery. Hemostasis at the right groin was obtained by Angioseal. The patient was transferred to the NSICU in stable condition without immediate complication. All the coils and stents used are MRI compatible. There were no complications during the procedure. POST-INTERVENTION FINDINGS: LEFT INTERNAL CAROTID (Post-stenting): Stents are in good position across the aneurysm neck and is widely patent, with no intraluminal filling defects. No intracranial branch occlusions. LEFT INTERNAL CAROTID (Post-coiling): There has been good occlusion of the aneurysm. No intracranial branch occlusions. LEFT VERTEBRAL ARTERY (Post-Stenting): Stent is in good position across the aneurysm neck and is widely patent, no intraluminal filling defects. No intracranial branch occlusions. LEFT VERTEBRAL ARTERY (Post-Coiling): There has been good occlusion of the aneurysm. No intracranial branch occlusions. There is retrograde filling of the left ALFREDA from SERVICE CREW LEADER collaterals. RIGHT COMMON CAROTID ARTERY INJECTION (cranial): DSA images of the right anterior intracranial circulation demonstrate normal course and caliber of the petrous, cavernous and supraclinoid segments of the internal carotid artery. The ophthalmic artery origin, course and caliber are normal. There is no visualized posterior communicating artery. The anterior choroidal artery is normal. M1 and A1 segments are normal. MCA and ALFREDA distributions are normal. There is filling across the anterior communicating artery to the contralateral ALFREDA and MCA. There is slow anterograde filling of the contralateral ALFREDA after basilar treatment. Capillary and venous phases are normal. LEFT INTERNAL CAROTID ARTERY (Post-basilar aneurysm treatment): There is slow anterograde filling of the ipsilateral ALFREDA but with microcatheter injection, there is patency of the intraluminal stent. RIGHT FEMORAL ARTERY: DSA images of the right common femoral artery demonstrate normal course and caliber of the vessel. The sheath is placed in the straight segment of the artery, above the bifurcation. There is no evidence of dissection or pseudoaneurysm. IMPRESSION: 1. 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 2. 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 3. There is slow anterograde filling of the left ALFREDA post stenting with retrograde left SERVICE CREW LEADER collateral filling. However, no intraluminal clot is seen in stent or vessel with microcatheter evaluation. Luz Armas MD Endovascular Neuroradiology Baster Hand: [facility] Transcribe Date/Time: Oct 17 2020 1:10P Dictated by : LUZ ARMAS MD This examination was interpreted and the report reviewed and electronically signed by: LUZ ARMAS MD on Oct 17 2020 1:32PM EST Normal [facility] NIL EXIST CATH ANGIO F/U Final Report DATE OF EXAM: Oct 17 2020 11:37AM A6A 7512 - NIL EXIST CATH ANGIO F/U / PROCEDURE REASON: Embo Physician Interpretation Endovascular Surgical Neuroradiology Report PROCEDURE: 1. IADSA of the bilateral carotid arteries and left vertebral artery. 2. Y-Stent coiling of ALFREDA A1-A2 aneurysm 3. 3D Rotational angiogram of left internal carotid artery 4. 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 TIME OUT TIME: 858 PROCEDURE START TIME: 858 PROCEDURE END TIME: 1124 ATTENDING: Luz Armas MD SUPERVISOR METAL CANS (FELLOW): The procedure was performed by the attending without an administrative assistant office manager. The attending performed the following procedural activities: diagnostic angiogram and coil embolization APPROACH: Right common femoral artery using a modified Seldinger technique with a micropuncture needle. 8F sheath placed. Fluoroscopic Radiation Summary: Plane A, Air Kerma: 3539.0 mGy Plane B, Air Kerma: 2762.0 mGy Dose Area Product (DAP): 0.0 mGycm2 Fluoro time: 57:18 min:sec arterial: 264 ml of OMNIPAQUE 300 INFORMED CONSENT: The procedures risks, benefits, and alternatives were discussed with the patient and any available family. They agreed to proceed. All questions were answered. 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 After careful consideration of treatment options, the angiogram was performed with intent to treat by endovascular coil embolization. TECHNIQUE: After informed consent the patient was brought to the angiography suite and a formal timeout was performed identifying the patient by name, MRN, and date of . General endotracheal anesthesia was smoothly induced and all appropriate lines were placed by anesthesia. Both groin regions were prepped and draped in the usual sterile fashion. The right common femoral artery was entered using modified Seldinger technique. A 6F sheath was placed over a 0.035 PTFE floppy wire. A 5F diagnostic catheter in conjunction with a .035 angled Glidewire was used to selectively catheterize the following vessels: Brachiocephalic vascular family: Right common carotid artery, intracranial views. Standard AP, lateral and oblique views. Left carotid vascular family: Left internal carotid artery, intracranial views. Standard AP, lateral and oblique views. Left subclavian vascular family: Left vertebral artery, intracranial views. Standard AP, lateral and Angy's views. Right femoral artery After each vessel was selected multiple AP, lateral, oblique and magnified angiographic runs were performed with filming over the head and neck. FINDINGS: LEFT INTERNAL CAROTID ARTERY INJECTION (cranial): DSA images of the left anterior intracranial circulation demonstrate normal course and caliber of the petrous, cavernous and supraclinoid segments of the internal carotid artery. The ophthalmic artery origin, course and caliber are normal. There is no visualized posterior communicating artery. ? The anterior choroidal artery is normal. M1 and A1 segments are normal. MCA and ALFREDA distributions are normal. There is filling across the anterior communicating artery to the contralateral ALFREDA. ?There is a 6.8mmx 4.89mmx3.36mm with a 6.47mm neck left A1/A2 medially pointing aneurysm. ? Capillary and venous phases are normal. No aneurysm or arteriovenous malformation is identified. LEFT VERTEBRAL ARTERY INJECTION: DSA images of the posterior intracranial circulation demonstrate normal course and caliber of the distal left vertebral artery. The vertebrobasilar confluence is normal. There is reflux of contrast down the right vertebral artery. The basilar segment is normal. ?There is a 6.3mmx5.83mmx4.37mm with a 2.97mm neck. ?Bilateral PICAs are normal Bilateral AICAs are normal.. Bilateral SCAs are normal. 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 The capillary and venous phases are normal. BASED ON THE ABOVE FINDINGS, WE PROCEEDED WITH THE FOLLOWING INTERVENTION: PROCEDURE: The patient was fully heparinized. A post heparinization ACT of greater than twice baseline was achieved and maintained throughout the case. A working angle for coil embolization was determined from the rotational angiogram. Under high magnification fluoroscopic roadmap control, an exchange length glidewire was placed in the left petrous internal carotid artery. A 6F Benchmark guidesheath was then exchanged for the diagnostic catheter. An 0.016 Sheldahl SL-10 microcatheter was then manipulated into the aneurysm over a 0.014 Syncro-2 microwire. An SL-10 microcatheter advanced over the Synchro wire into the right A2 segment. A 3mm x21mm neuroform Trion stent was then deployed across the neck of the aneurysm from the right A2 to the left A1. Follow-up angiography performed. The stent delivery system was removed and follow-up angiography performed. An SL-10 microcatheter advanced over the Synchro wire into the left A2 segment. A 3mm x21mm neuroform Trion stent was then deployed across the neck of the aneurysm from the left A2 to the left A1. Follow-up angiography performed. The stent delivery system was removed and follow-up angiography performed. Coil embolization was then initiated. A total of 6 coils were detached in the aneurysm as follows: Target 360 Soft: [id number] Target 360 Soft [id number] Target 360 Soft [id number] Target 360 Soft [id number] Target 360 Ultra [id number] Target 360 Ultra [id number] Control angiography was performed intermittently during the embolization process. Follow-up angiography was performed. The pusher wire and microcatheter were then removed as a a unit Final follow-up angiography was performed catheter position in the left internal carotid artery. 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 A working angle for coil embolization was determined from the best oblique view. Under high magnification fluoroscopic roadmap control, an exchange length glidewire was placed in the left vertebral artery. A 6F Benchmark guidesheath was then exchanged for the diagnostic catheter. An 0.016 Sheldahl SL-10 microcatheter was then manipulated into the aneurysm over a 0.014 Syncro-2 microwire. Coil embolization was started however the coil mass would fall out of the aneurysm. An SL-10 microcatheter advanced over the Synchro wire into the left SERVICE CREW LEADER segment. A 3mm x24mm neuroform Trion stent was then deployed across the neck of the aneurysm from the left SERVICE CREW LEADER to the basilar artery. Follow-up angiography performed. The stent delivery system was removed and follow-up angiography performed. Follow-up angiography performed. The stent delivery system was removed and follow-up angiography performed. Coil embolization was then initiated. A total of 6 coils were detached in the aneurysm as follows: Target 360 Soft: [id number] Target 360 Soft [id number] Target 360 Ultra [id number] Target 360 Ultra 2.2rpn3xw Target 360 Ultra 2.1oya6tw Target 360 Ultra 6fvq3kf Control angiography was performed intermittently during the embolization process. Follow-up angiography was performed. The pusher wire and microcatheter were then removed as a a unit Final follow-up angiography was performed catheter position in the left internal carotid artery. Hemostasis at the right groin was obtained by Angioseal. The patient was transferred to the NSICU in stable condition without immediate complication. All the coils and stents used are MRI compatible. There were no complications during the procedure. POST-INTERVENTION FINDINGS: LEFT INTERNAL CAROTID (Post-stenting): Stents are in good position across the aneurysm neck and is widely patent, with no intraluminal filling defects. No intracranial branch occlusions. LEFT INTERNAL CAROTID (Post-coiling): There has been good occlusion of the aneurysm. No intracranial branch occlusions. LEFT VERTEBRAL ARTERY (Post-Stenting): Stent is in good position across the aneurysm neck and is widely patent, no intraluminal filling defects. No intracranial branch occlusions. LEFT VERTEBRAL ARTERY (Post-Coiling): There has been good occlusion of the aneurysm. No intracranial branch occlusions. There is retrograde filling of the left ALFREDA from SERVICE CREW LEADER collaterals. RIGHT COMMON CAROTID ARTERY INJECTION (cranial): DSA images of the right anterior intracranial circulation demonstrate normal course and caliber of the petrous, cavernous and supraclinoid segments of the internal carotid artery. The ophthalmic artery origin, course and caliber are normal. There is no visualized posterior communicating artery. The anterior choroidal artery is normal. M1 and A1 segments are normal. MCA and ALFREDA distributions are normal. There is filling across the anterior communicating artery to the contralateral ALFREDA and MCA. There is slow anterograde filling of the contralateral ALFREDA after basilar treatment. Capillary and venous phases are normal. LEFT INTERNAL CAROTID ARTERY (Post-basilar aneurysm treatment): There is slow anterograde filling of the ipsilateral ALFREDA but with microcatheter injection, there is patency of the intraluminal stent. RIGHT FEMORAL ARTERY: DSA images of the right common femoral artery demonstrate normal course and caliber of the vessel. The sheath is placed in the straight segment of the artery, above the bifurcation. There is no evidence of dissection or pseudoaneurysm. IMPRESSION: 1. 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 2. 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 3. There is slow anterograde filling of the left ALFREDA post stenting with retrograde left SERVICE [employer] LEADER collateral filling. However, no intraluminal clot is seen in stent or vessel with microcatheter evaluation. Luz Armas MD Endovascular Neuroradiology Baster Hand: [facility] Transcribe Date/Time: Oct 17 2020 1:10P Dictated by : LUZ ARMAS MD This examination was interpreted and the report reviewed and electronically signed by: LUZ ARMAS MD on Oct 17 2020 1:32PM EST Normal [facility] NIL INTERNAL/CEREBRAL UNIon 10-17-2020 NIL INTERNAL/CEREBRAL UNI Final Report DATE OF EXAM: Oct 17 2020 11:37AM A6A 5130 - NIL INTERNAL/CEREBRAL UNI - LEFT / PROCEDURE REASON: ACOMM, Basilar Aneurysm Coiling Physician Interpretation Endovascular Surgical Neuroradiology Report PROCEDURE: 1. IADSA of the bilateral carotid arteries and left vertebral artery. 2. Y-Stent coiling of ALFREDA A1-A2 aneurysm 3. 3D Rotational angiogram of left internal carotid artery 4. 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 TIME OUT TIME: 858 PROCEDURE START TIME: 858 PROCEDURE END TIME: 1124 ATTENDING: Luz Armas MD SUPERVISOR METAL CANS (FELLOW): The procedure was performed by the attending without an administrative assistant office manager. The attending performed the following procedural activities: diagnostic angiogram and coil embolization APPROACH: Right common femoral artery using a modified Seldinger technique with a micropuncture needle. 8F sheath placed. Fluoroscopic Radiation Summary: Plane A, Air Kerma: 3539.0 mGy Plane B, Air Kerma: 2762.0 mGy Dose Area Product (DAP): 0.0 mGycm2 Fluoro time: 57:18 min:sec arterial: 264 ml of OMNIPAQUE 300 INFORMED CONSENT: The procedures risks, benefits, and alternatives were discussed with the patient and any available family. They agreed to proceed. All questions were answered. 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 After careful consideration of treatment options, the angiogram was performed with intent to treat by endovascular coil embolization. TECHNIQUE: After informed consent the patient was brought to the angiography suite and a formal timeout was performed identifying the patient by name, MRN, and date of . General endotracheal anesthesia was smoothly induced and all appropriate lines were placed by anesthesia. Both groin regions were prepped and draped in the usual sterile fashion. The right common femoral artery was entered using modified Seldinger technique. A 6F sheath was placed over a 0.035 PTFE floppy wire. A 5F diagnostic catheter in conjunction with a .035 angled Glidewire was used to selectively catheterize the following vessels: Brachiocephalic vascular family: Right common carotid artery, intracranial views. Standard AP, lateral and oblique views. Left carotid vascular family: Left internal carotid artery, intracranial views. Standard AP, lateral and oblique views. Left subclavian vascular family: Left vertebral artery, intracranial views. Standard AP, lateral and Angy's views. Right femoral artery After each vessel was selected multiple AP, lateral, oblique and magnified angiographic runs were performed with filming over the head and neck. FINDINGS: LEFT INTERNAL CAROTID ARTERY INJECTION (cranial): DSA images of the left anterior intracranial circulation demonstrate normal course and caliber of the petrous, cavernous and supraclinoid segments of the internal carotid artery. The ophthalmic artery origin, course and caliber are normal. There is no visualized posterior communicating artery. ? The anterior choroidal artery is normal. M1 and A1 segments are normal. MCA and ALFREDA distributions are normal. There is filling across the anterior communicating artery to the contralateral ALFREDA. ?There is a 6.8mmx 4.89mmx3.36mm with a 6.47mm neck left A1/A2 medially pointing aneurysm. ? Capillary and venous phases are normal. No aneurysm or arteriovenous malformation is identified. LEFT VERTEBRAL ARTERY INJECTION: DSA images of the posterior intracranial circulation demonstrate normal course and caliber of the distal left vertebral artery. The vertebrobasilar confluence is normal. There is reflux of contrast down the right vertebral artery. The basilar segment is normal. ?There is a 6.3mmx5.83mmx4.37mm with a 2.97mm neck. ?Bilateral PICAs are normal Bilateral AICAs are normal.. Bilateral SCAs are normal. 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 The capillary and venous phases are normal. BASED ON THE ABOVE FINDINGS, WE PROCEEDED WITH THE FOLLOWING INTERVENTION: PROCEDURE: The patient was fully heparinized. A post heparinization ACT of greater than twice baseline was achieved and maintained throughout the case. A working angle for coil embolization was determined from the rotational angiogram. Under high magnification fluoroscopic roadmap control, an exchange length glidewire was placed in the left petrous internal carotid artery. A 6F Benchmark guidesheath was then exchanged for the diagnostic catheter. An 0.016 Sheldahl SL-10 microcatheter was then manipulated into the aneurysm over a 0.014 Syncro-2 microwire. An SL-10 microcatheter advanced over the Synchro wire into the right A2 segment. A 3mm x21mm neuroform Trion stent was then deployed across the neck of the aneurysm from the right A2 to the left A1. Follow-up angiography performed. The stent delivery system was removed and follow-up angiography performed. An SL-10 microcatheter advanced over the Synchro wire into the left A2 segment. A 3mm x21mm neuroform Trion stent was then deployed across the neck of the aneurysm from the left A2 to the left A1. Follow-up angiography performed. The stent delivery system was removed and follow-up angiography performed. Coil embolization was then initiated. A total of 6 coils were detached in the aneurysm as follows: Target 360 Soft: [id number] Target 360 Soft [id number] Target 360 Soft 8byj60wk Target 360 Soft 2qmq15ko Target 360 Ultra 5mmb40gv Target 360 Ultra 3cda0dy Control angiography was performed intermittently during the embolization process. Follow-up angiography was performed. The pusher wire and microcatheter were then removed as a a unit Final follow-up angiography was performed catheter position in the left internal carotid artery. 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 A working angle for coil embolization was determined from the best oblique view. Under high magnification fluoroscopic roadmap control, an exchange length glidewire was placed in the left vertebral artery. A 6F Benchmark guidesheath was then exchanged for the diagnostic catheter. An 0.016 Sheldahl SL-10 microcatheter was then manipulated into the aneurysm over a 0.014 Syncro-2 microwire. Coil embolization was started however the coil mass would fall out of the aneurysm. An SL-10 microcatheter advanced over the Synchro wire into the left SERVICE CREW LEADER segment. A 3mm x24mm neuroform Trion stent was then deployed across the neck of the aneurysm from the left SERVICE CREW LEADER to the basilar artery. Follow-up angiography performed. The stent delivery system was removed and follow-up angiography performed. Follow-up angiography performed. The stent delivery system was removed and follow-up angiography performed. Coil embolization was then initiated. A total of 6 coils were detached in the aneurysm as follows: Target 360 Soft: [id number] Target 360 Soft 2xmw6df Target 360 Ultra 7ezw5om Target 360 Ultra 2.0svj1sd Target 360 Ultra 2.6svl0lz Target 360 Ultra 9amz6ml Control angiography was performed intermittently during the embolization process. Follow-up angiography was performed. The pusher wire and microcatheter were then removed as a a unit Final follow-up angiography was performed catheter position in the left internal carotid artery. Hemostasis at the right groin was obtained by Angioseal. The patient was transferred to the NSICU in stable condition without immediate complication. All the coils and stents used are MRI compatible. There were no complications during the procedure. POST-INTERVENTION FINDINGS: LEFT INTERNAL CAROTID (Post-stenting): Stents are in good position across the aneurysm neck and is widely patent, with no intraluminal filling defects. No intracranial branch occlusions. LEFT INTERNAL CAROTID (Post-coiling): There has been good occlusion of the aneurysm. No intracranial branch occlusions. LEFT VERTEBRAL ARTERY (Post-Stenting): Stent is in good position across the aneurysm neck and is widely patent, no intraluminal filling defects. No intracranial branch occlusions. LEFT VERTEBRAL ARTERY (Post-Coiling): There has been good occlusion of the aneurysm. No intracranial branch occlusions. There is retrograde filling of the left ALFREDA from SERVICE CREW LEADER collaterals. RIGHT COMMON CAROTID ARTERY INJECTION (cranial): DSA images of the right anterior intracranial circulation demonstrate normal course and caliber of the petrous, cavernous and supraclinoid segments of the internal carotid artery. The ophthalmic artery origin, course and caliber are normal. There is no visualized posterior communicating artery. The anterior choroidal artery is normal. M1 and A1 segments are normal. MCA and ALFREDA distributions are normal. There is filling across the anterior communicating artery to the contralateral ALFREDA and MCA. There is slow anterograde filling of the contralateral ALFREDA after basilar treatment. Capillary and venous phases are normal. LEFT INTERNAL CAROTID ARTERY (Post-basilar aneurysm treatment): There is slow anterograde filling of the ipsilateral ALFREDA but with microcatheter injection, there is patency of the intraluminal stent. RIGHT FEMORAL ARTERY: DSA images of the right common femoral artery demonstrate normal course and caliber of the vessel. The sheath is placed in the straight segment of the artery, above the bifurcation. There is no evidence of dissection or pseudoaneurysm. IMPRESSION: 1. 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 2. 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 3. There is slow anterograde filling of the left ALFREDA post stenting with retrograde left SERVICE [employer]W LEADER collateral filling. However, no intraluminal clot is seen in stent or vessel with microcatheter evaluation. Luz Armas MD Endovascular Neuroradiology [facility] Transcribe Date/Time: Oct 17 2020 1:10P Dictated by : LUZ ARMAS MD This examination was interpreted and the report reviewed and electronically signed by: LUZ ARMAS MD on Oct 17 2020 1:32PM EST Normal [facility] NIL TRANS CATH TX EMBOLIZATI ONon 10-17-2020 NIL TRANS CATH TX EMBOLIZATION Final Report DATE OF EXAM: Oct 17 2020 11:37AM A6A 3022 - NIL TRANS CATH TX EMBOLIZATION / PROCEDURE REASON: Embo Physician Interpretation Endovascular Surgical Neuroradiology Report PROCEDURE: 1. IADSA of the bilateral carotid arteries and left vertebral artery. 2. Y-Stent coiling of ALFREDA A1-A2 aneurysm 3. 3D Rotational angiogram of left internal carotid artery 4. 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 TIME OUT TIME: 858 PROCEDURE START TIME: 858 PROCEDURE END TIME: 1124 ATTENDING: Luz Armas MD SUPERVISOR METAL CANS (FELLOW): The procedure was performed by the attending without an administrative assistant office manager. The attending performed the following procedural activities: diagnostic angiogram and coil embolization APPROACH: Right common femoral artery using a modified Seldinger technique with a micropuncture needle. 8F sheath placed. Fluoroscopic Radiation Summary: Plane A, Air Kerma: 3539.0 mGy Plane B, Air Kerma: 2762.0 mGy Dose Area Product (DAP): 0.0 mGycm2 Fluoro time: 57:18 min:sec arterial: 264 ml of OMNIPAQUE 300 INFORMED CONSENT: The procedures risks, benefits, and alternatives were discussed with the patient and any available family. They agreed to proceed. All questions were answered. 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 After careful consideration of treatment options, the angiogram was performed with intent to treat by endovascular coil embolization. TECHNIQUE: After informed consent the patient was brought to the angiography suite and a formal timeout was performed identifying the patient by name, MRN, and date of . General endotracheal anesthesia was smoothly induced and all appropriate lines were placed by anesthesia. Both groin regions were prepped and draped in the usual sterile fashion. The right common femoral artery was entered using modified Seldinger technique. A 6F sheath was placed over a 0.035 PTFE floppy wire. A 5F diagnostic catheter in conjunction with a .035 angled Glidewire was used to selectively catheterize the following vessels: Brachiocephalic vascular family: Right common carotid artery, intracranial views. Standard AP, lateral and oblique views. Left carotid vascular family: Left internal carotid artery, intracranial views. Standard AP, lateral and oblique views. Left subclavian vascular family: Left vertebral artery, intracranial views. Standard AP, lateral and Angy's views. Right femoral artery After each vessel was selected multiple AP, lateral, oblique and magnified angiographic runs were performed with filming over the head and neck. FINDINGS: LEFT INTERNAL CAROTID ARTERY INJECTION (cranial): DSA images of the left anterior intracranial circulation demonstrate normal course and caliber of the petrous, cavernous and supraclinoid segments of the internal carotid artery. The ophthalmic artery origin, course and caliber are normal. There is no visualized posterior communicating artery. ? The anterior choroidal artery is normal. M1 and A1 segments are normal. MCA and ALFREDA distributions are normal. There is filling across the anterior communicating artery to the contralateral ALFREDA. ?There is a 6.8mmx 4.89mmx3.36mm with a 6.47mm neck left A1/A2 medially pointing aneurysm. ? Capillary and venous phases are normal. No aneurysm or arteriovenous malformation is identified. LEFT VERTEBRAL ARTERY INJECTION: DSA images of the posterior intracranial circulation demonstrate normal course and caliber of the distal left vertebral artery. The vertebrobasilar confluence is normal. There is reflux of contrast down the right vertebral artery. The basilar segment is normal. ?There is a 6.3mmx5.83mmx4.37mm with a 2.97mm neck. ?Bilateral PICAs are normal Bilateral AICAs are normal.. Bilateral SCAs are normal. 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 The capillary and venous phases are normal. BASED ON THE ABOVE FINDINGS, WE PROCEEDED WITH THE FOLLOWING INTERVENTION: PROCEDURE: The patient was fully heparinized. A post heparinization ACT of greater than twice baseline was achieved and maintained throughout the case. A working angle for coil embolization was determined from the rotational angiogram. Under high magnification fluoroscopic roadmap control, an exchange length glidewire was placed in the left petrous internal carotid artery. A 6F Benchmark guidesheath was then exchanged for the diagnostic catheter. An 0.016 Sheldahl SL-10 microcatheter was then manipulated into the aneurysm over a 0.014 Syncro-2 microwire. An SL-10 microcatheter advanced over the Synchro wire into the right A2 segment. A 3mm x21mm neuroform Trion stent was then deployed across the neck of the aneurysm from the right A2 to the left A1. Follow-up angiography performed. The stent delivery system was removed and follow-up angiography performed. An SL-10 microcatheter advanced over the Synchro wire into the left A2 segment. A 3mm x21mm neuroform Trion stent was then deployed across the neck of the aneurysm from the left A2 to the left A1. Follow-up angiography performed. The stent delivery system was removed and follow-up angiography performed. Coil embolization was then initiated. A total of 6 coils were detached in the aneurysm as follows: Target 360 Soft: [id number] Target 360 Soft [id number] Target 360 Soft [id number] Target 360 Soft 2mnd40hv Target 360 Ultra 2jqk26nh Target 360 Ultra 0atq7ls Control angiography was performed intermittently during the embolization process. Follow-up angiography was performed. The pusher wire and microcatheter were then removed as a a unit Final follow-up angiography was performed catheter position in the left internal carotid artery. 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 A working angle for coil embolization was determined from the best oblique view. Under high magnification fluoroscopic roadmap control, an exchange length glidewire was placed in the left vertebral artery. A 6F Benchmark guidesheath was then exchanged for the diagnostic catheter. An 0.016 Sheldahl SL-10 microcatheter was then manipulated into the aneurysm over a 0.014 Syncro-2 microwire. Coil embolization was started however the coil mass would fall out of the aneurysm. An SL-10 microcatheter advanced over the Synchro wire into the left SERVICE CREW LEADER segment. A 3mm x24mm neuroform Trion stent was then deployed across the neck of the aneurysm from the left SERVICE CREW LEADER to the basilar artery. Follow-up angiography performed. The stent delivery system was removed and follow-up angiography performed. Follow-up angiography performed. The stent delivery system was removed and follow-up angiography performed. Coil embolization was then initiated. A total of 6 coils were detached in the aneurysm as follows: Target 360 Soft: [id number] Target 360 Soft 5pld3th Target 360 Ultra 9yha8zp Target 360 Ultra 2.3gnx4td Target 360 Ultra 2.8rch2bo Target 360 Ultra 8qbn9wr Control angiography was performed intermittently during the embolization process. Follow-up angiography was performed. The pusher wire and microcatheter were then removed as a a unit Final follow-up angiography was performed catheter position in the left internal carotid artery. Hemostasis at the right groin was obtained by Angioseal. The patient was transferred to the NSICU in stable condition without immediate complication. All the coils and stents used are MRI compatible. There were no complications during the procedure. POST-INTERVENTION FINDINGS: LEFT INTERNAL CAROTID (Post-stenting): Stents are in good position across the aneurysm neck and is widely patent, with no intraluminal filling defects. No intracranial branch occlusions. LEFT INTERNAL CAROTID (Post-coiling): There has been good occlusion of the aneurysm. No intracranial branch occlusions. LEFT VERTEBRAL ARTERY (Post-Stenting): Stent is in good position across the aneurysm neck and is widely patent, no intraluminal filling defects. No intracranial branch occlusions. LEFT VERTEBRAL ARTERY (Post-Coiling): There has been good occlusion of the aneurysm. No intracranial branch occlusions. There is retrograde filling of the left ALFREDA from SERVICE CREW LEADER collaterals. RIGHT COMMON CAROTID ARTERY INJECTION (cranial): DSA images of the right anterior intracranial circulation demonstrate normal course and caliber of the petrous, cavernous and supraclinoid segments of the internal carotid artery. The ophthalmic artery origin, course and caliber are normal. There is no visualized posterior communicating artery. The anterior choroidal artery is normal. M1 and A1 segments are normal. MCA and ALFREDA distributions are normal. There is filling across the anterior communicating artery to the contralateral ALFREDA and MCA. There is slow anterograde filling of the contralateral ALFREDA after basilar treatment. Capillary and venous phases are normal. LEFT INTERNAL CAROTID ARTERY (Post-basilar aneurysm treatment): There is slow anterograde filling of the ipsilateral ALFREDA but with microcatheter injection, there is patency of the intraluminal stent. RIGHT FEMORAL ARTERY: DSA images of the right common femoral artery demonstrate normal course and caliber of the vessel. The sheath is placed in the straight segment of the artery, above the bifurcation. There is no evidence of dissection or pseudoaneurysm. IMPRESSION: 1. 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 2. 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 3. There is slow anterograde filling of the left ALFREDA post stenting with retrograde left SERVICE [employer]W LEADER collateral filling. However, no intraluminal clot is seen in stent or vessel with microcatheter evaluation. Luz Armas MD Endovascular Neuroradiology Baster Hand: [facility] Transcribe Date/Time: Oct 17 2020 1:10P Dictated by : LUZ ARMAS MD This examination was interpreted and the report reviewed and electronically signed by: LUZ ARMAS MD on Oct 17 2020 1:32PM EST Normal [facility] NIL TRANS CATH TX EMBOLIZATION Final Report DATE OF EXAM: Oct 17 2020 11:37AM A6A 3022 - NIL TRANS CATH TX EMBOLIZATION / PROCEDURE REASON: ACOMM, Basilar Aneurysm Coiling Physician Interpretation Endovascular Surgical Neuroradiology Report PROCEDURE: 1. IADSA of the bilateral carotid arteries and left vertebral artery. 2. Y-Stent coiling of ALFREDA A1-A2 aneurysm 3. 3D Rotational angiogram of left internal carotid artery 4. 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 TIME OUT TIME: 858 PROCEDURE START TIME: 858 PROCEDURE END TIME: 1124 ATTENDING: Luz Armas MD SUPERVISOR METAL CANS (FELLOW): The procedure was performed by the attending without an administrative assistant office manager. The attending performed the following procedural activities: diagnostic angiogram and coil embolization APPROACH: Right common femoral artery using a modified Seldinger technique with a micropuncture needle. 8F sheath placed. Fluoroscopic Radiation Summary: Plane A, Air Kerma: 3539.0 mGy Plane B, Air Kerma: 2762.0 mGy Dose Area Product (DAP): 0.0 mGycm2 Fluoro time: 57:18 min:sec arterial: 264 ml of OMNIPAQUE 300 INFORMED CONSENT: The procedures risks, benefits, and alternatives were discussed with the patient and any available family. They agreed to proceed. All questions were answered. 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 After careful consideration of treatment options, the angiogram was performed with intent to treat by endovascular coil embolization. TECHNIQUE: After informed consent the patient was brought to the angiography suite and a formal timeout was performed identifying the patient by name, MRN, and date of . General endotracheal anesthesia was smoothly induced and all appropriate lines were placed by anesthesia. Both groin regions were prepped and draped in the usual sterile fashion. The right common femoral artery was entered using modified Seldinger technique. A 6F sheath was placed over a 0.035 PTFE floppy wire. A 5F diagnostic catheter in conjunction with a .035 angled Glidewire was used to selectively catheterize the following vessels: Brachiocephalic vascular family: Right common carotid artery, intracranial views. Standard AP, lateral and oblique views. Left carotid vascular family: Left internal carotid artery, intracranial views. Standard AP, lateral and oblique views. Left subclavian vascular family: Left vertebral artery, intracranial views. Standard AP, lateral and Angy's views. Right femoral artery After each vessel was selected multiple AP, lateral, oblique and magnified angiographic runs were performed with filming over the head and neck. FINDINGS: LEFT INTERNAL CAROTID ARTERY INJECTION (cranial): DSA images of the left anterior intracranial circulation demonstrate normal course and caliber of the petrous, cavernous and supraclinoid segments of the internal carotid artery. The ophthalmic artery origin, course and caliber are normal. There is no visualized posterior communicating artery. ? The anterior choroidal artery is normal. M1 and A1 segments are normal. MCA and ALFREDA distributions are normal. There is filling across the anterior communicating artery to the contralateral ALFREDA. ?There is a 6.8mmx 4.89mmx3.36mm with a 6.47mm neck left A1/A2 medially pointing aneurysm. ? Capillary and venous phases are normal. No aneurysm or arteriovenous malformation is identified. LEFT VERTEBRAL ARTERY INJECTION: DSA images of the posterior intracranial circulation demonstrate normal course and caliber of the distal left vertebral artery. The vertebrobasilar confluence is normal. There is reflux of contrast down the right vertebral artery. The basilar segment is normal. ?There is a 6.3mmx5.83mmx4.37mm with a 2.97mm neck. ?Bilateral PICAs are normal Bilateral AICAs are normal.. Bilateral SCAs are normal. 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 The capillary and venous phases are normal. BASED ON THE ABOVE FINDINGS, WE PROCEEDED WITH THE FOLLOWING INTERVENTION: PROCEDURE: The patient was fully heparinized. A post heparinization ACT of greater than twice baseline was achieved and maintained throughout the case. A working angle for coil embolization was determined from the rotational angiogram. Under high magnification fluoroscopic roadmap control, an exchange length glidewire was placed in the left petrous internal carotid artery. A 6F Benchmark guidesheath was then exchanged for the diagnostic catheter. An 0.016 Sheldahl SL-10 microcatheter was then manipulated into the aneurysm over a 0.014 Syncro-2 microwire. An SL-10 microcatheter advanced over the Synchro wire into the right A2 segment. A 3mm x21mm neuroform Trion stent was then deployed across the neck of the aneurysm from the right A2 to the left A1. Follow-up angiography performed. The stent delivery system was removed and follow-up angiography performed. An SL-10 microcatheter advanced over the Synchro wire into the left A2 segment. A 3mm x21mm neuroform Trion stent was then deployed across the neck of the aneurysm from the left A2 to the left A1. Follow-up angiography performed. The stent delivery system was removed and follow-up angiography performed. Coil embolization was then initiated. A total of 6 coils were detached in the aneurysm as follows: Target 360 Soft: [id number] Target 360 Soft [id number] Target 360 Soft 1aht15fh Target 360 Soft 7dhm93by Target 360 Ultra 3hoc49lo Target 360 Ultra 3kyk6tt Control angiography was performed intermittently during the embolization process. Follow-up angiography was performed. The pusher wire and microcatheter were then removed as a a unit Final follow-up angiography was performed catheter position in the left internal carotid artery. 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 A working angle for coil embolization was determined from the best oblique view. Under high magnification fluoroscopic roadmap control, an exchange length glidewire was placed in the left vertebral artery. A 6F Benchmark guidesheath was then exchanged for the diagnostic catheter. An 0.016 Sheldahl SL-10 microcatheter was then manipulated into the aneurysm over a 0.014 Syncro-2 microwire. Coil embolization was started however the coil mass would fall out of the aneurysm. An SL-10 microcatheter advanced over the Synchro wire into the left SERVICE CREW LEADER segment. A 3mm x24mm neuroform Trion stent was then deployed across the neck of the aneurysm from the left SERVICE CREW LEADER to the basilar artery. Follow-up angiography performed. The stent delivery system was removed and follow-up angiography performed. Follow-up angiography performed. The stent delivery system was removed and follow-up angiography performed. Coil embolization was then initiated. A total of 6 coils were detached in the aneurysm as follows: Target 360 Soft: [id number] Target 360 Soft 6evi8kb Target 360 Ultra 2kkl9nj Target 360 Ultra 2.8owk5nw Target 360 Ultra 2.5ghk2az Target 360 Ultra 6lqt3st Control angiography was performed intermittently during the embolization process. Follow-up angiography was performed. The pusher wire and microcatheter were then removed as a a unit Final follow-up angiography was performed catheter position in the left internal carotid artery. Hemostasis at the right groin was obtained by Angioseal. The patient was transferred to the NSICU in stable condition without immediate complication. All the coils and stents used are MRI compatible. There were no complications during the procedure. POST-INTERVENTION FINDINGS: LEFT INTERNAL CAROTID (Post-stenting): Stents are in good position across the aneurysm neck and is widely patent, with no intraluminal filling defects. No intracranial branch occlusions. LEFT INTERNAL CAROTID (Post-coiling): There has been good occlusion of the aneurysm. No intracranial branch occlusions. LEFT VERTEBRAL ARTERY (Post-Stenting): Stent is in good position across the aneurysm neck and is widely patent, no intraluminal filling defects. No intracranial branch occlusions. LEFT VERTEBRAL ARTERY (Post-Coiling): There has been good occlusion of the aneurysm. No intracranial branch occlusions. There is retrograde filling of the left ALFREDA from SERVICE CREW LEADER collaterals. RIGHT COMMON CAROTID ARTERY INJECTION (cranial): DSA images of the right anterior intracranial circulation demonstrate normal course and caliber of the petrous, cavernous and supraclinoid segments of the internal carotid artery. The ophthalmic artery origin, course and caliber are normal. There is no visualized posterior communicating artery. The anterior choroidal artery is normal. M1 and A1 segments are normal. MCA and ALFREDA distributions are normal. There is filling across the anterior communicating artery to the contralateral ALFREDA and MCA. There is slow anterograde filling of the contralateral ALFREDA after basilar treatment. Capillary and venous phases are normal. LEFT INTERNAL CAROTID ARTERY (Post-basilar aneurysm treatment): There is slow anterograde filling of the ipsilateral ALFREDA but with microcatheter injection, there is patency of the intraluminal stent. RIGHT FEMORAL ARTERY: DSA images of the right common femoral artery demonstrate normal course and caliber of the vessel. The sheath is placed in the straight segment of the artery, above the bifurcation. There is no evidence of dissection or pseudoaneurysm. IMPRESSION: 1. 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 2. 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 3. There is slow anterograde filling of the left ALFREDA post stenting with retrograde left SERVICE CREW LEADER collateral filling. However, no intraluminal clot is seen in stent or vessel with microcatheter evaluation. Luz Armas MD Endovascular Neuroradiology Baster Hand: [facility] Transcribe Date/Time: Oct 17 2020 1:10P Dictated by : LUZ ARMAS MD This examination was interpreted and the report reviewed and electronically signed by: LUZ ARMAS MD on Oct 17 2020 1:32PM EST Normal [facility] NIL VERT UNIon 10-17-2020 NIL VERT UNI Final Report DATE OF EXAM: Oct 17 2020 11:37AM A6A 1026 - [facility] - LEFT / PROCEDURE REASON: ACOMM, Basilar Aneurysm Coiling Physician Interpretation Endovascular Surgical Neuroradiology Report PROCEDURE: 1. IADSA of the bilateral carotid arteries and left vertebral artery. 2. Y-Stent coiling of ALFREDA A1-A2 aneurysm 3. 3D Rotational angiogram of left internal carotid artery 4. 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 TIME OUT TIME: 858 PROCEDURE START TIME: 858 PROCEDURE END TIME: 1124 ATTENDING: Luz Armas MD SUPERVISOR METAL CANS (FELLOW): The procedure was performed by the attending without an administrative assistant office manager. The attending performed the following procedural activities: diagnostic angiogram and coil embolization APPROACH: Right common femoral artery using a modified Seldinger technique with a micropuncture needle. 8F sheath placed. Fluoroscopic Radiation Summary: Plane A, Air Kerma: 3539.0 mGy Plane B, Air Kerma: 2762.0 mGy Dose Area Product (DAP): 0.0 mGycm2 Fluoro time: 57:18 min:sec arterial: 264 ml of OMNIPAQUE 300 INFORMED CONSENT: The procedures risks, benefits, and alternatives were discussed with the patient and any available family. They agreed to proceed. All questions were answered. 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 After careful consideration of treatment options, the angiogram was performed with intent to treat by endovascular coil embolization. TECHNIQUE: After informed consent the patient was brought to the angiography suite and a formal timeout was performed identifying the patient by name, MRN, and date of . General endotracheal anesthesia was smoothly induced and all appropriate lines were placed by anesthesia. Both groin regions were prepped and draped in the usual sterile fashion. The right common femoral artery was entered using modified Seldinger technique. A 6F sheath was placed over a 0.035 PTFE floppy wire. A 5F diagnostic catheter in conjunction with a .035 angled Glidewire was used to selectively catheterize the following vessels: Brachiocephalic vascular family: Right common carotid artery, intracranial views. Standard AP, lateral and oblique views. Left carotid vascular family: Left internal carotid artery, intracranial views. Standard AP, lateral and oblique views. Left subclavian vascular family: Left vertebral artery, intracranial views. Standard AP, lateral and Angy's views. Right femoral artery After each vessel was selected multiple AP, lateral, oblique and magnified angiographic runs were performed with filming over the head and neck. FINDINGS: LEFT INTERNAL CAROTID ARTERY INJECTION (cranial): DSA images of the left anterior intracranial circulation demonstrate normal course and caliber of the petrous, cavernous and supraclinoid segments of the internal carotid artery. The ophthalmic artery origin, course and caliber are normal. There is no visualized posterior communicating artery. ? The anterior choroidal artery is normal. M1 and A1 segments are normal. MCA and ALFREDA distributions are normal. There is filling across the anterior communicating artery to the contralateral ALFREDA. ?There is a 6.8mmx 4.89mmx3.36mm with a 6.47mm neck left A1/A2 medially pointing aneurysm. ? Capillary and venous phases are normal. No aneurysm or arteriovenous malformation is identified. LEFT VERTEBRAL ARTERY INJECTION: DSA images of the posterior intracranial circulation demonstrate normal course and caliber of the distal left vertebral artery. The vertebrobasilar confluence is normal. There is reflux of contrast down the right vertebral artery. The basilar segment is normal. ?There is a 6.3mmx5.83mmx4.37mm with a 2.97mm neck. ?Bilateral PICAs are normal Bilateral AICAs are normal.. Bilateral SCAs are normal. 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 The capillary and venous phases are normal. BASED ON THE ABOVE FINDINGS, WE PROCEEDED WITH THE FOLLOWING INTERVENTION: PROCEDURE: The patient was fully heparinized. A post heparinization ACT of greater than twice baseline was achieved and maintained throughout the case. A working angle for coil embolization was determined from the rotational angiogram. Under high magnification fluoroscopic roadmap control, an exchange length glidewire was placed in the left petrous internal carotid artery. A 6F Benchmark guidesheath was then exchanged for the diagnostic catheter. An 0.016 Sheldahl SL-10 microcatheter was then manipulated into the aneurysm over a 0.014 Syncro-2 microwire. An SL-10 microcatheter advanced over the Synchro wire into the right A2 segment. A 3mm x21mm neuroform Trion stent was then deployed across the neck of the aneurysm from the right A2 to the left A1. Follow-up angiography performed. The stent delivery system was removed and follow-up angiography performed. An SL-10 microcatheter advanced over the Synchro wire into the left A2 segment. A 3mm x21mm neuroform Trion stent was then deployed across the neck of the aneurysm from the left A2 to the left A1. Follow-up angiography performed. The stent delivery system was removed and follow-up angiography performed. Coil embolization was then initiated. A total of 6 coils were detached in the aneurysm as follows: Target 360 Soft: [id number] Target 360 Soft 4oyk20ev Target 360 Soft 1znk12ss Target 360 Soft 8hcz45yy Target 360 Ultra 7hgf62pv Target 360 Ultra 7adl5rx Control angiography was performed intermittently during the embolization process. Follow-up angiography was performed. The pusher wire and microcatheter were then removed as a a unit Final follow-up angiography was performed catheter position in the left internal carotid artery. 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 A working angle for coil embolization was determined from the best oblique view. Under high magnification fluoroscopic roadmap control, an exchange length glidewire was placed in the left vertebral artery. A 6F Benchmark guidesheath was then exchanged for the diagnostic catheter. An 0.016 Sheldahl SL-10 microcatheter was then manipulated into the aneurysm over a 0.014 Syncro-2 microwire. Coil embolization was started however the coil mass would fall out of the aneurysm. An SL-10 microcatheter advanced over the Synchro wire into the left SERVICE CREW LEADER segment. A 3mm x24mm neuroform Trion stent was then deployed across the neck of the aneurysm from the left SERVICE CREW LEADER to the basilar artery. Follow-up angiography performed. The stent delivery system was removed and follow-up angiography performed. Follow-up angiography performed. The stent delivery system was removed and follow-up angiography performed. Coil embolization was then initiated. A total of 6 coils were detached in the aneurysm as follows: Target 360 Soft: [id number] Target 360 Soft 5qks8qv Target 360 Ultra 3uec2oe Target 360 Ultra 2.9fhz8po Target 360 Ultra 2.4nuw0uv Target 360 Ultra 7sdu0ch Control angiography was performed intermittently during the embolization process. Follow-up angiography was performed. The pusher wire and microcatheter were then removed as a a unit Final follow-up angiography was performed catheter position in the left internal carotid artery. Hemostasis at the right groin was obtained by Angioseal. The patient was transferred to the NSICU in stable condition without immediate complication. All the coils and stents used are MRI compatible. There were no complications during the procedure. POST-INTERVENTION FINDINGS: LEFT INTERNAL CAROTID (Post-stenting): Stents are in good position across the aneurysm neck and is widely patent, with no intraluminal filling defects. No intracranial branch occlusions. LEFT INTERNAL CAROTID (Post-coiling): There has been good occlusion of the aneurysm. No intracranial branch occlusions. LEFT VERTEBRAL ARTERY (Post-Stenting): Stent is in good position across the aneurysm neck and is widely patent, no intraluminal filling defects. No intracranial branch occlusions. LEFT VERTEBRAL ARTERY (Post-Coiling): There has been good occlusion of the aneurysm. No intracranial branch occlusions. There is retrograde filling of the left ALFREDA from [employer] collaterals. RIGHT COMMON CAROTID ARTERY INJECTION (cranial): DSA images of the right anterior intracranial circulation demonstrate normal course and caliber of the petrous, cavernous and supraclinoid segments of the internal carotid artery. The ophthalmic artery origin, course and caliber are normal. There is no visualized posterior communicating artery. The anterior choroidal artery is normal. M1 and A1 segments are normal. MCA and ALFREDA distributions are normal. There is filling across the anterior communicating artery to the contralateral ALFREDA and MCA. There is slow anterograde filling of the contralateral ALFREDA after basilar treatment. Capillary and venous phases are normal. LEFT INTERNAL CAROTID ARTERY (Post-basilar aneurysm treatment): There is slow anterograde filling of the ipsilateral ALFREDA but with microcatheter injection, there is patency of the intraluminal stent. RIGHT FEMORAL ARTERY: DSA images of the right common femoral artery demonstrate normal course and caliber of the vessel. The sheath is placed in the straight segment of the artery, above the bifurcation. There is no evidence of dissection or pseudoaneurysm. IMPRESSION: 1. 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 2. 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 3. There is slow anterograde filling of the left ALFREDA post stenting with retrograde left [employer] collateral filling. However, no intraluminal clot is seen in stent or vessel with microcatheter evaluation. Luz Armas MD Endovascular Neuroradiology Baster Hand: [facility] Transcribe Date/Time: Oct 17 2020 1:10P Dictated by : LUZ ARMAS MD This examination was interpreted and the report reviewed and electronically signed by: LUZ ARMAS MD on Oct 17 2020 1:32PM EST Normal [facility] Renal function 2000 panelon 10-17-2020 Albumin [Mass/Vol] 4.2 g/dL Normal 3.9-4.9 [facility] Comment on above: Order Comment: Speci men Type: BLOOD SPECIMEN Performed By: #### 2 4362-6 ####[facility]IA [id number] [place] [address] Anion gap [Moles/Vol] 8 mmol/L Low 9-18 [facility] Comment on above: Order Comment: Speci men Type: BLOOD SPECIMEN Performed By: #### 2 4362-6 ####[facility]ORYCLIA [id number] [place] [address] Calcium [Mass/Vol] 9.6 mg/dL Normal 8.5-10.2 [facility] Comment on above: Order Comment: Speci men Type: BLOOD SPECIMEN Performed By: #### 2 4362-6 ####[facility]ORYCLIA [id number] [place] [address] Chloride [Moles/Vol] 104 mmol/L Normal 97-105 [facility] Comment on above: Order Comment: Speci men Type: BLOOD SPECIMEN Performed By: #### 2 4362-6 ####[facility]ORYCLIA [id number] [place] [address] CO2 [Moles/Vol] 23 mmol/L Normal 22-30 [facility] Comment on above: Order Comment: Speci men Type: BLOOD SPECIMEN Performed By: #### 2 4362-6 ####[facility]ORYCLIA [id number] [place] [address] Creatinine [Mass/Vol] 0.87 mg/dL Normal 0.58-0.96 [facility] Comment on above: Order Comment: Speci men Type: BLOOD SPECIMEN Performed By: #### 2 4362-6 ####[facility]CLIA [id number] [place] [address] GFR/1.73 sq M.predicted MDRD (S/P/Bld) [Vol rate/Area] mL/min/{1.73_m2} Normal [facility] Comment on above: Order Comment: Speci men Type: BLOOD SPECIMEN Result Comment: >60e GFR (Estimated GFR) Units of measure: mL/min/1.73 meters squaredeGFR is derived from the reexpressed MDRD Study equation using the following parameters: serum creatinine, age, gender and race. The creatinine assay has been calibrated to be traceable to IDMS. An eGFR <60 mL/min/1.73m2 for >3 months is consistent with chronic kidney disease. Refer to KDOQI guidelines for clinical interpretation. In patients with unstable renal function, e.g. those with acute kidney injury, the eGFR may not accurately reflect actual GFR. Performed By: #### 2 4362-6 ####[facility]ATORYCLIA [id number] [place] [address] Glucose [Mass/Vol] 94 mg/dL Normal 74-99 [facility] Comment on above: Order Comment: Speci men Type: BLOOD SPECIMEN Result Comment: The [place] Diabetes Association (ADA) provides guidance for cutoff values for fasting glucose and random glucose. The ADA defines fasting as no caloric intake for at least 8 hours. Fasting plasma glucose results between 100 to 125 mg/dL indicate increased risk for diabetes (prediabetes).Fasting plasma glucose results greater than or equal to 126 mg/dL meet the criteria for diagnosis of diabetes. In the absence of unequivocal hyperglycemia, results should be confirmed by repeat testing. In a patient with classic symptoms of hyperglycemia or hyperglycemic crisis, random plasma glucose results greater than or equal to 200 mg/dL meet the criteria for diagnosis of diabetes.Reference: Standards of Medical Care in Diabetes 2016, [place] [employer]. Diabetes Care. 2016.39(Suppl 1). Performed By: #### 2 4362-6 ####[facility]ORATORYCLIA [id number] [place] [address] Phosphate [Mass/Vol] 5.2 mg/dL High 2.7-4.8 [facility] Comment on above: Order Comment: Speci [facility] Type: BLOOD SPECIMEN Performed By: #### 2 4362-6 ####[facility]ORATORYCLIA [id number] [place] [address] Potassium [Moles/Vol] Normal [facility] Comment on above: Order Comment: Speci men Type: BLOOD SPECIMEN Result Comment: Unab le to assay. Specimen Hemolyzed. Performed By: #### 2 4362-6 ####[facility]ORATORYCLIA [id number] [place] [address] Sodium [Moles/Vol] 135 mmol/L Low 136-144 [facility] Comment on above: Order Comment: Speci men Type: BLOOD SPECIMEN Performed By: #### 2 4362-6 ####[facility]ORATORYCLIA [id number] [place] [address] Urea nitrogen [Mass/Vol] 14 mg/dL Normal 7-21 [facility] Comment on above: Order Comment: Speci men Type: BLOOD SPECIMEN Performed By: #### 2 4362-6 ####[facility]ORATORYCLIA [id number] [place] [address] THERAPY NTon 10-17-2020 THERAPY NT Normal [facility] aPTT PPPon 10-17-2020 aPTT Coag (PPP) [Time] 62.6 s High 23.0-32.4 [facility] Comment on above: Order Comment: Speci men Type: BLOOD SPECIMEN Performed By: #### 1 4979-9 ####[facility]ORATORYCLIA [id number] [place] [address] aPTT Coag (PPP) [Time] 38.4 s High 23.0-32.4 [facility] Comment on above: Order Comment: Speci men Type: BLOOD SPECIMEN Performed By: #### 1 4979-9 ####[facility]ORATORYCLIA [id number] [place] [address] CBC panel Auto (Bld)on 10-16 Erythrocyte distribution width (RBC) [Ratio] 13.5 % Normal 11.5-15.0 [facility] Comment on above: Order Comment: Speci men Type: BLOOD SPECIMEN Performed By: #### 5 8410-2 ####[facility]ORYCLIA [id number] [place] [address] Hematocrit (Bld) [Volume fraction] 38.8 % Normal 36.0-46.0 [facility] Comment on above: Order Comment: Speci men Type: BLOOD SPECIMEN Performed By: #### 5 8410-2 ####[facility]ORATORYCLIA [id number] [place] [address] Hemoglobin (Bld) [Mass/Vol] 12.9 g/dL Normal 11.5-15.5 [facility] Comment on above: Order Comment: Speci men Type: BLOOD SPECIMEN Performed By: #### 5 8410-2 ####[facility]ORATORYCLIA [id number] [place] [address] MCH (RBC) [Entitic mass] 32.7 pg Normal 26.0-34.0 [facility] Comment on above: Order Comment: Speci men Type: BLOOD SPECIMEN Performed By: #### 5 8410-2 ####[facility]ORATORYCLIA [id number] [place] [address] MCHC (RBC) [Mass/Vol] 33.2 g/dL Normal 30.5-36.0 [facility] Comment on above: Order Comment: Speci men Type: BLOOD SPECIMEN Performed By: #### 5 8410-2 ####[facility]ATORYCLIA [id number] [place] [address] MCV (RBC) [Entitic vol] 98.2 fL Normal 80.0-100.0 [facility] Comment on above: Order Comment: Speci men Type: BLOOD SPECIMEN Performed By: #### 5 8410-2 ####[facility]ATORYCLIA [id number] [place] [address] Nucleated RBC (Bld) [#/Vol] 10*3/uL Normal <0.01 [facility] Comment on above: Order Comment: Speci men Type: BLOOD SPECIMEN Performed By: #### 5 8410-2 ####[facility]ATORYCLIA [id number] [place] [address] Platelet mean volume (Bld) [Entitic vol] 10.4 fL Normal 9.0-12.7 [facility] Comment on above: Order Comment: Speci men Type: BLOOD SPECIMEN Performed By: #### 5 8410-2 ####[facility]ORATORYCLIA [id number] [place] [address] Platelets (Bld) [#/Vol] 207 10*3/uL Normal 150-400 [facility] Comment on above: Order Comment: Speci men Type: BLOOD SPECIMEN Performed By: #### 5 8410-2 ####[facility]ORATORYCLIA [id number] [place] [address] RBC (Bld) [#/Vol] 3.95 10*6/uL Normal 3.90-5.20 [facility] Comment on above: Order Comment: Speci men Type: BLOOD SPECIMEN Performed By: #### 5 8410-2 ####[facility]ORYCLIA [id number] [place] [address] WBC (Bld) [#/Vol] 5.10 10*3/uL Normal 3.70-11.00 [facility] Comment on above: Order Comment: Speci men Type: BLOOD SPECIMEN Performed By: #### 5 8410-2 ####[facility]ATORYCLIA [id number] [place] [address] CONSULT PROGon 10-16-2020 CONSULT PROG Normal [facility] NURSING PROGon 10-16-2020 NURSING PROG Normal [facility] Renal function 2000 panelon 10-16-2020 Albumin [Mass/Vol] 4.0 g/dL Normal 3.9-4.9 [facility] Comment on above: Order Comment: Speci men Type: BLOOD SPECIMEN Performed By: #### 2 4362-6 ####[facility]ORATORYCLIA [id number] [place] [address] Anion gap [Moles/Vol] 10 mmol/L Normal 9-18 [facility] Comment on above: Order Comment: Speci men Type: BLOOD SPECIMEN Performed By: #### 2 4362-6 ####[facility]CLIA [id number] [place] [address] Calcium [Mass/Vol] 9.6 mg/dL Normal 8.5-10.2 [facility] Comment on above: Order Comment: Speci men Type: BLOOD SPECIMEN Performed By: #### 2 4362-6 ####[facility]ORATORYCLIA [id number] [place] [address] Chloride [Moles/Vol] 105 mmol/L Normal 97-105 [facility] Comment on above: Order Comment: Speci men Type: BLOOD SPECIMEN Performed By: #### 2 4362-6 ####[facility]ORYCLIA [id number] [place] [address] CO2 [Moles/Vol] 23 mmol/L Normal 22-30 [facility] Comment on above: Order Comment: Speci men Type: BLOOD SPECIMEN Performed By: #### 2 4362-6 ####[facility]ORYCLIA [id number] [place] [address] Creatinine [Mass/Vol] 0.91 mg/dL Normal 0.58-0.96 [facility] Comment on above: Order Comment: Speci men Type: BLOOD SPECIMEN Performed By: #### 2 4362-6 ####[facility]ATORYCLIA [id number] [place] [address] GFR/1.73 sq M.predicted MDRD (S/P/Bld) [Vol rate/Area] mL/min/{1.73_m2} Normal [facility] Comment on above: Order Comment: Speci men Type: BLOOD SPECIMEN Result Comment: >60e GFR (Estimated GFR) Units of measure: mL/min/1.73 meters squaredeGFR is derived from the reexpressed MDRD Study equation using the following parameters: serum creatinine, age, gender and race. The creatinine assay has been calibrated to be traceable to IDMS. An eGFR <60 mL/min/1.73m2 for >3 months is consistent with chronic kidney disease. Refer to KDOQI guidelines for clinical interpretation. In patients with unstable renal function, e.g. those with acute kidney injury, the eGFR may not accurately reflect actual GFR. Performed By: #### 2 4362-6 ####[facility]ORATORYCLIA [id number] [place] [address] Glucose [Mass/Vol] 102 mg/dL High 74-99 [facility] Comment on above: Order Comment: Speci men Type: BLOOD SPECIMEN Result Comment: The [place] Diabetes Association (ADA) provides guidance for cutoff values for fasting glucose and random glucose. The ADA defines fasting as no caloric intake for at least 8 hours. Fasting plasma glucose results between 100 to 125 mg/dL indicate increased risk for diabetes (prediabetes).Fasting plasma glucose results greater than or equal to 126 mg/dL meet the criteria for diagnosis of diabetes. In the absence of unequivocal hyperglycemia, results should be confirmed by repeat testing. In a patient with classic symptoms of hyperglycemia or hyperglycemic crisis, random plasma glucose results greater than or equal to 200 mg/dL meet the criteria for diagnosis of diabetes.Reference: Standards of Medical Care in Diabetes 2016, [place] [employer]. Diabetes Care. 2016.39(Suppl 1). Performed By: #### 2 4362-6 ####[facility]ORATORYCLIA [id number] [place] [address] Phosphate [Mass/Vol] 4.6 mg/dL Normal 2.7-4.8 [facility] Comment on above: Order Comment: Speci men Type: BLOOD SPECIMEN Performed By: #### 2 4362-6 ####[facility]ATORYCLIA [id number] [place] [address] Potassium [Moles/Vol] 4.3 mmol/L Normal 3.7-5.1 [facility] Comment on above: Order Comment: Speci men Type: BLOOD SPECIMEN Performed By: #### 2 4362-6 ####[facility]ATORYCLIA [id number] [place] [address] Sodium [Moles/Vol] 138 mmol/L Normal 136-144 [facility] Comment on above: Order Comment: Speci men Type: BLOOD SPECIMEN Performed By: #### 2 4362-6 ####[facility]ORYCLIA [id number] [place] [address] Urea nitrogen [Mass/Vol] 12 mg/dL Normal 7-21 [facility] Comment on above: Order Comment: Speci men Type: BLOOD SPECIMEN Performed By: #### 2 4362-6 ####[facility]ATORYCLIA [id number] [place] [address] THERAPY NTon 10-16-2020 THERAPY NT Normal [facility] THERAPY NT Normal [facility] Vancomycin random [Mass/Vol] on 10-16-2020 Vancomycin [Mass/Vol] 18.7 ug/mL Normal 10.0-20.0 [facility] Comment on above: Order Comment: Speci men Type: BLOOD SPECIMEN Result Comment: Refe rence ranges and high/low indicator flags are provided as general guidelines only. The treating physician must determine appropriate target levels/dosing based on the specific clinical situation. Performed By: #### 4 091-5 ####[facility]ORATORYCLIA [id number] [place] [address] aPTT PPPon 10-16-2020 aPTT Coag (PPP) [Time] 61.2 s High 23.0-32.4 [facility] Comment on above: Order Comment: Speci men Type: BLOOD SPECIMEN Performed By: #### 1 4979-9 ####[facility]ATORYCLIA [id number] [place] [address] aPTT Coag (PPP) [Time] 75.3 s High 23.0-32.4 [facility] Comment on above: Order Comment: Speci men Type: BLOOD SPECIMEN Performed By: #### 1 4979-9 ####[facility]ATORYCLIA [id number] [place] [address] ALLIED HEALTHon 10-15-2020 ALLIED HEALTH Normal [facility] ASPIRIN/CLOPIDOGREL RESISTAN CEon 10-15-2020 INTERPRETATION(ASPIRI N/CLOPIDOGREL RESISTANCE) (NOTE) Normal [facility] Comment on above: Order Comment: Speci men Type: BLOOD SPECIMEN Result Comment: Perf orming Pathologist: Yanely Somers MDInterpretation:Abnormal - see comment below.The platelet aggregation study is abnormal and suggests combinedtherapy with aspirin and clopidogrel. If the patient is on aspirintherapy the degree of platelet inhibition indicates incompleteresponse to aspirin. This is because either the arachidonic acidaggregation is > or = 20 percent or the ADP aggregation is > or = 70percent. These parameters were developed at the [facility] utilizing the assay and reagents performed on thispatient's platelets. Silvia CLAUDIO. Jess CLAUDIO. Thien ROWLAND. A prospective, blinded determination of the natural historyof aspirin resistance among stable patients with cardiovasculardisease. Journal of the [place] [employer]. 41(6):961-5,2002. There is a decrease in ADP-induced platelet aggregation.Guidelines for optimal platelet inhibition during clopidogrel therapyhave not been well-established. However, if the patient iscurrently receiving clopidogrel therapy, the results suggestclopidogrel response.No prior aspirin/clopidogrel results are available for comparisonwith the current study. The medication record indicates therapy withaspirin at 325 mg/day plus clopidogrel at 75 mg/day. Please correlatethese laboratory results with clinical findings and medicationhistory. Performed By: #### A SPCLP ####[facility] LABCLIA [id number] [facility] [place] [facility] [place] [address] Platelet aggregation ADP induced High dose (PRP) [Rel units/Vol] 9 % Max Low 65-93 [facility] Comment on above: Order Comment: Speci men Type: BLOOD SPECIMEN Result Comment: Prel iminary results given to [facility] at 1135 on 10.16.20.SJ. Performed By: #### A SPCLP ####[facility] LABCLIA [id number] [facility] [address] Platelet aggregation arachidonate induced 500 ug/mL (PRP) [Rel units/Vol] 25 % Max Low 75-100 [facility] Comment on above: Order Comment: Speci men Type: BLOOD SPECIMEN Result Comment: Prel iminary results given to [facility] at 1135 on 10.16.20.SJ. Performed By: #### A SPCLP ####[facility] LABCLIA [id number] [place] [address] BLOOD TB SCREEN, INCUBATEDon 10-15-2020 M. tuberculosis tuberculin stim IFN-g Ql (Bld) Negative Normal NEGAT [facility] Comment on above: Order Comment: Speci men Type: BLOOD SPECIMEN Performed By: #### I NTPGP ####[facility] LABCLIA [id number] [place] [address] MITOGEN MINUS NIL >10.00 Normal [facility] Comment on above: Order Comment: Speci men Type: BLOOD SPECIMEN Performed By: #### I NTPGP ####[facility] LABCLIA [id number] [place] [address] TB INTERPRETATION No evidence of curre nt or previous infection with Mycobacterium tuberculosis. Normal [facility] Comment on above: Order Comment: Speci men Type: BLOOD SPECIMEN Performed By: #### I NTPGP ####[facility] LABCLIA [id number] [place] [address] TB NIL 0.02 IU/mL Normal [facility] Comment on above: Order Comment: Speci men Type: BLOOD SPECIMEN Performed By: #### I NTPGP ####[facility] LABCLIA [id number] [place] [address] TB1 AG MINUS NIL 0.01 IU/mL Normal <0.35 [facility] Comment on above: Order Comment: Speci men Type: BLOOD SPECIMEN Performed By: #### I NTPGP ####[facility] LABCLIA [id number] [place] [address] TB2 AG MINUS NIL 0.01 IU/mL Normal <0.35 [facility] Comment on above: Order Comment: Speci men Type: BLOOD SPECIMEN Performed By: #### I NTPGP ####[facility] LABCLIA [id number] [place] [address] CASE MANAGEMon 10-15-2020 CASE MANAGEM Normal [facility] CBC panel Auto (Bld)on 10-15 Erythrocyte distribution width (RBC) [Ratio] 13.5 % Normal 11.5-15.0 [facility] Comment on above: Order Comment: Speci men Type: BLOOD SPECIMEN Performed By: #### 5 8410-2 ####[facility]ORATORYCLIA [id number] [place] [address] Hematocrit (Bld) [Volume fraction] 39.1 % Normal 36.0-46.0 [facility] Comment on above: Order Comment: Speci men Type: BLOOD SPECIMEN Performed By: #### 5 8410-2 ####[facility]ORATORYCLIA [id number] [place] [address] Hemoglobin (Bld) [Mass/Vol] 13.1 g/dL Normal 11.5-15.5 [facility] Comment on above: Order Comment: Speci men Type: BLOOD SPECIMEN Performed By: #### 5 8410-2 ####[facility]ORATORYCLIA [id number] [place] [address] MCH (RBC) [Entitic mass] 32.9 pg Normal 26.0-34.0 [facility] Comment on above: Order Comment: Speci men Type: BLOOD SPECIMEN Performed By: #### 5 8410-2 ####[facility]ORATORYCLIA [id number] [place] [address] MCHC (RBC) [Mass/Vol] 33.5 g/dL Normal 30.5-36.0 [facility] Comment on above: Order Comment: Speci men Type: BLOOD SPECIMEN Performed By: #### 5 8410-2 ####[facility]ATORYCLIA [id number] [place] [address] MCV (RBC) [Entitic vol] 98.2 fL Normal 80.0-100.0 [facility] Comment on above: Order Comment: Speci men Type: BLOOD SPECIMEN Performed By: #### 5 8410-2 ####[facility]ATORYCLIA [id number] [place] [address] Nucleated RBC (Bld) [#/Vol] 10*3/uL Normal <0.01 [facility] Comment on above: Order Comment: Speci men Type: BLOOD SPECIMEN Performed By: #### 5 8410-2 ####[facility]ORATORYCLIA [id number] [place] [address] Platelet mean volume (Bld) [Entitic vol] 10.3 fL Normal 9.0-12.7 [facility] Comment on above: Order Comment: Speci men Type: BLOOD SPECIMEN Performed By: #### 5 8410-2 ####[facility]ORATORYCLIA [id number] [place] [address] Platelets (Bld) [#/Vol] 218 10*3/uL Normal 150-400 [facility] Comment on above: Order Comment: Speci men Type: BLOOD SPECIMEN Performed By: #### 5 8410-2 ####[facility]ATORYCLIA [id number] [place] [address] RBC (Bld) [#/Vol] 3.98 10*6/uL Normal 3.90-5.20 [facility] Comment on above: Order Comment: Speci men Type: BLOOD SPECIMEN Performed By: #### 5 8410-2 ####[facility]ATORYCLIA [id number] [place] [address] WBC (Bld) [#/Vol] 7.10 10*3/uL Normal 3.70-11.00 [facility] Comment on above: Order Comment: Speci men Type: BLOOD SPECIMEN Performed By: #### 5 8410-2 ####[facility]ORATORYCLIA [id number] [place] [address] CONSULT PROGon 10-15-2020 CONSULT PROG Normal [facility] CREATININE BLDon 10-15-2020 Creatinine [Mass/Vol] 0.97 mg/dL High 0.58-0.96 [facility] Comment on above: Order Comment: Speci men Type: BLOOD SPECIMEN Performed By: #### C RET1 ####[facility] LABORATORYCLIA [id number] [place] [address] GFR/1.73 sq M.predicted MDRD (S/P/Bld) [Vol rate/Area] mL/min/{1.73_m2} Normal [facility] Comment on above: Order Comment: Speci men Type: BLOOD SPECIMEN Result Comment: 60eG FR (Estimated GFR) Units of measure: mL/min/1.73 meters squaredeGFR is derived from the reexpressed MDRD Study equation using the following parameters: serum creatinine, age, gender and race. The creatinine assay has been calibrated to be traceable to IDMS. An eGFR <60 mL/min/1.73m2 for >3 months is consistent with chronic kidney disease. Refer to KDOQI guidelines for clinical interpretation. In patients with unstable renal function, e.g. those with acute kidney injury, the eGFR may not accurately reflect actual GFR. Performed By: #### C RET1 ####[facility] LABORATORYCLIA [id number] [place] [address] CT ABD/PEL W IVCONon 10-15-[address] ABD/PEL W IVCON Final Report DATE OF EXAM: Oct 15 2020 9:08AM [facility] 0530 - CT ABD/PEL W IVCON / PROCEDURE REASON: Infection, abdomen-pelvis Physician Interpretation EXAMINATION: CT CHEST WITH IV CONTRAST and CT ABDOMEN AND PELVIS WITH IV CONTRAST CLINICAL HISTORY: F/U ANEURYSM TECHNIQUE: CT of the chest from the thoracic inlet to the upper abdomen was performed following IV contrast. CT of the abdomen and pelvis was performed using standard technique, scanning from just above the dome of the diaphragm to the symphysis pubis. MQ: CTCW_6; CTAP_3 Contrast: IV: 150 ml of Omnipaque 300 : ml of CT Radiation dose: Integrated Dose-length product (DLP) for this visit = [address] Dose Reduction Employed: Automated exposure control(AEC) and iterative recon COMPARISON: Ultrasound of the kidneys 06/19/2018 and prior chest radiograph RESULT: Limitations: None. Chest: Lines, tubes, and devices: Left chest wall pacer with leads terminating in the right atrial appendage and right ventricular apex. Mitral annular repair. Intact, nondisplaced sternotomy wires. Lung parenchyma and airways: No consolidation. A 0.2 cm and nodularity is present in the superior lingula (3, 63). No suspicious pulmonary nodule. The central airways are patent. Pleural space: No pleural effusion. No pleural thickening. Lower neck, lymph nodes, and mediastinum: The imaged thyroid gland is normal. A few subcentimeter axillary and subpectoral lymph nodes are present. Small mediastinal lymph nodes. No hilar lymphadenopathy. Heart, pericardium, and thoracic vessels: Status post sternotomy for mitral annular repair. No dehiscence. The thoracic aorta and main pulmonary artery are normal in caliber. The cardiac chambers are normal in size. Moderate coronary artery calcifications are noted, although the study is not optimized for coronary assessment. No pericardial effusion or thickening. Abdomen / Pelvis: Liver: No mass. Biliary: No bile duct dilation. Gallbladder is unremarkable. Spleen: No mass. No splenomegaly. Pancreas: No mass or duct dilation. Adrenals: No mass. Kidneys: Symmetric nephrograms. Stable 1.0 cm cyst in the superior left renal pole and 0.6 cm cyst in the anterior interpolar region. GI tract: No dilation or wall thickening. Colorectal anastomosis without signs of obstruction. Appendix is normal. Minimal colonic diverticulosis without signs of acute inflammation. Lymph nodes: No abdominal or pelvic lymphadenopathy. A few small nonspecific lymph nodes in present in the retroperitoneum and periportal regions. Mesentery/Peritoneum: No ascites or mass. Retroperitoneum: No mass. Vasculature: The celiac axis and SMA are patent. The portal vein and branches, splenic vein, SMV, and hepatic veins are patent. Pelvis: No mass, ascites or fluid collection. Uterus is unremarkable. No adnexal mass. Indeterminate 0.7 cm lymph node in the right internal iliac chain. Mild fat stranding in the right inguinal region, likely recent catheterization. Musculoskeletal soft tissues: Bones:Mild degenerative changes of the thoracolumbar spine. Soft tissues: Unremarkable [employer] (topogram) images: No additional findings. IMPRESSION: No acute findings in the chest, abdomen and pelvis. Chest: 1. No consolidation or pleural effusion. 2. A 0.2 cm nodularity in the left upper lobe for which follow-up low-dose chest CT in 12 months is recommended if patient is at high risk for lung cancer 3. Postsurgical changes of mitral annular repair and other chronic findings, as above. Abdomen / Pelvis: 1. Postsurgical changes compatible with colorectal anastomosis. No suspicious nodularity or lymphadenopathy. 2. Mild fat stranding in the right inguinal region, likely postsurgical changes. No evidence of pseudoaneurysm or active contrast extravasation. Baster Hand: WALLY Transcribe Date/Time: Oct 15 2020 9:32A Dictated by : ELLIOTT DILL MD This examination was interpreted and the report reviewed and electronically signed by: ELLIOTT DILL MD on Oct 15 2020 9:47AM EST Normal [facility] CT CHEST W IVCONon 1 CT CHEST W IVCON Final Report DATE OF EXAM: Oct 15 2020 9:08AM [facility] 0539 - CT CHEST W IVCON / PROCEDURE REASON: Pneumonia, complicated Physician Interpretation EXAMINATION: CT CHEST WITH IV CONTRAST and CT ABDOMEN AND PELVIS WITH IV CONTRAST CLINICAL HISTORY: F/U ANEURYSM TECHNIQUE: CT of the chest from the thoracic inlet to the upper abdomen was performed following IV contrast. CT of the abdomen and pelvis was performed using standard technique, scanning from just above the dome of the diaphragm to the symphysis pubis. MQ: CTCW_6; CTAP_3 Contrast: IV: 150 ml of Omnipaque 300 : ml of CT Radiation dose: Integrated Dose-length product (DLP) for this visit = [address] Dose Reduction Employed: Automated exposure control(AEC) and iterative recon COMPARISON: Ultrasound of the kidneys 06/19/2018 and prior chest radiograph RESULT: Limitations: None. Chest: Lines, tubes, and devices: Left chest wall pacer with leads terminating in the right atrial appendage and right ventricular apex. Mitral annular repair. Intact, nondisplaced sternotomy wires. Lung parenchyma and airways: No consolidation. A 0.2 cm and nodularity is present in the superior lingula (3, 63). No suspicious pulmonary nodule. The central airways are patent. Pleural space: No pleural effusion. No pleural thickening. Lower neck, lymph nodes, and mediastinum: The imaged thyroid gland is normal. A few subcentimeter axillary and subpectoral lymph nodes are present. Small mediastinal lymph nodes. No hilar lymphadenopathy. Heart, pericardium, and thoracic vessels: Status post sternotomy for mitral annular repair. No dehiscence. The thoracic aorta and main pulmonary artery are normal in caliber. The cardiac chambers are normal in size. Moderate coronary artery calcifications are noted, although the study is not optimized for coronary assessment. No pericardial effusion or thickening. Abdomen / Pelvis: Liver: No mass. Biliary: No bile duct dilation. Gallbladder is unremarkable. Spleen: No mass. No splenomegaly. Pancreas: No mass or duct dilation. Adrenals: No mass. Kidneys: Symmetric nephrograms. Stable 1.0 cm cyst in the superior left renal pole and 0.6 cm cyst in the anterior interpolar region. GI tract: No dilation or wall thickening. Colorectal anastomosis without signs of obstruction. Appendix is normal. Minimal colonic diverticulosis without signs of acute inflammation. Lymph nodes: No abdominal or pelvic lymphadenopathy. A few small nonspecific lymph nodes in present in the retroperitoneum and periportal regions. Mesentery/Peritoneum: No ascites or mass. Retroperitoneum: No mass. Vasculature: The celiac axis and SMA are patent. The portal vein and branches, splenic vein, SMV, and hepatic veins are patent. Pelvis: No mass, ascites or fluid collection. Uterus is unremarkable. No adnexal mass. Indeterminate 0.7 cm lymph node in the right internal iliac chain. Mild fat stranding in the right inguinal region, likely recent catheterization. Musculoskeletal soft tissues: Bones:Mild degenerative changes of the thoracolumbar spine. Soft tissues: Unremarkable [employer] (topogram) images: No additional findings. IMPRESSION: No acute findings in the chest, abdomen and pelvis. Chest: 1. No consolidation or pleural effusion. 2. A 0.2 cm nodularity in the left upper lobe for which follow-up low-dose chest CT in 12 months is recommended if patient is at high risk for lung cancer 3. Postsurgical changes of mitral annular repair and other chronic findings, as above. Abdomen / Pelvis: 1. Postsurgical changes compatible with colorectal anastomosis. No suspicious nodularity or lymphadenopathy. 2. Mild fat stranding in the right inguinal region, likely postsurgical changes. No evidence of pseudoaneurysm or active contrast extravasation. Baster Hand: [facility] Transcribe Date/Time: Oct 15 2020 9:32A Dictated by : ELLIOTT DILL MD This examination was interpreted and the report reviewed and electronically signed by: ELLIOTT DILL MD on Oct 15 2020 9:47AM EST Normal [facility] FUNGITELL ASSAY FOR (1,3)-B- D-GLUCANon 10-15-2020 1,3 beta glucan (S) [Mass/Vol] Indeterminate Abnormal Negative [facility] Comment on above: Result Comment: (NOT E)INTERPRETIVE INFORMATION: (1,3)-jcpj-F-fpfvwh (Fungitell) Less than 31 pg/mL ................... Negative 31-59 pg/mL .......................... Negative 60-79 pg/mL .......................... Indeterminate Greater than or equal to 80 pg/mL .... PositiveThe Fungitell test is indicated for presumptive diagnosisof fungal infection and should be used in conjunction withother diagnostic procedures. This test does not detectcertain fungal species such as Cryptococcus, which producevery low levels of (1,3)-cnvj-W-odxuhf. This test will notdetect the zygomycetes, such as Absidia, Mucor, andRhizopus, which are not known to produce(1,3)-tnpq-Q-lefruv. In addition, the yeast phase ofBlastomyces dermatitidis produces little(1,3)-btzz-X-awbdpl and may not be detected by the assay.Performed By: [facility] [place] [id number] Director: Latosha Davila MD Performed By: #### B DGLUC ####[facility] REFERENCE LABCLIA [id number] [place] [address] FUNGITELL COMMENTS 78 pg/mL Normal [facility] Comment on above: Performed By: #### B DGLUC ####[facility]FER[facility] LABCLIA [id number] [place] [address] HISTOPLASMA AG URINEon 10-15 H. capsulatum Ag (U) [Mass/Vol] Detected Normal ND [facility] Comment on above: Order Comment: Speci men Type: URINE SPECIMEN Result Comment: (NOT E)Reference interval: None DetectedResults reported as ng/mL in 0.4 - 19.0 ng/mL range.Results above the limit of detection but below 0.4 ng/mL are reportedas 'Positive, Below the Limit of Quantification'.Results above 19.0 ng/mL are reported as 'Positive, Above the Limitof Quantification'.This test was developed and its performance characteristicsdetermined by [employer]. It has not been cleared orapproved by the FDA; however, FDA clearance or approval is notcurrently required for clinical use. The results are not intended dianna used as the sole means for clinical diagnosis or patientmanagement decisions.Test performed by [employer], [address] [place] [address], [place] [address] Performed By: #### U HISTO ####[facility] REFERENCE LABCLIA [id number] [place] [id number] NURSING PROGon 10-15-2020 NURSING PROG Normal [facility] NURSING PROG Normal [facility] NURSING PROG Normal [facility] NURSING PROG Normal [facility] NURSING PROG Normal [facility] NURSING PROG Normal [facility] THERAPY NTon 10-15-2020 THERAPY NT Normal [facility] THERAPY NT Normal [facility] THERAPY NT Normal [facility] aPTT PPPon 10-15-2020 aPTT Coag (PPP) [Time] 62.9 s High 23.0-32.4 [facility] Comment on above: Order Comment: Speci men Type: BLOOD SPECIMEN Performed By: #### 1 4979-9 ####[facility] LABORATORYIA [id number] [place] [address] aPTT Coag (PPP) [Time] 55.3 s High 23.0-32.4 [facility] Comment on above: Order Comment: Speci men Type: BLOOD SPECIMEN Performed By: #### 1 4979-9 ####[facility] LABORATORYCLIA [id number] [place] [address] ASPERGILLUS GALACTOMANNAN SE RUMon 10-14-2020 Galactomannan Ag IA Ql Negative Normal NEGAT [facility] Comment on above: Order Comment: Speci men Type: BLOOD SPECIMEN Result Comment: Aspe rgillus galactomannan antigen not detected in this sample. A negative result may indicate that the patient's result is below the detectable level of the assay. Negative results do not rule out the diagnosis of Invasive Aspergillosis. Repeat testing is recommended if the result is negative,but the disease is suspected. Performed By: #### A SGALS ####[facility] REFERENCE LABCLIA [id number] [place] [address] Galactomannan Ag IA Qn <0.50 Normal [facility] Comment on above: Order Comment: Speci men Type: BLOOD SPECIMEN Result Comment: Inde x Values are Interpreted as Follows:Negative specimens <0.50Positive specimens >=0.50 Performed By: #### A SGALS ####[facility] REFERENCE LABCLIA [id number] [place] [address] BLASTOMYCES AB CFon 10-15-19 21 B. dermatitidis Ab CF (S) [Titer] See Comment Abnormal DLT8 [facility] Comment on above: Order Comment: Speci men Type: BLOOD SPECIMEN Result Comment: The Blastomyces Antibody by EIA, SER result is 0.2 IV INTERPRETIVE INFORMATION: BLASTOMYCES ANTIBODY by EIA, SER The reference interval of [facility] is less than or equal to 0.9 IV 0.9 IV or less is Negative 1.0 to 1.4 IV is Equivocal 1.5 IV or greater is Postive Disregard [facility] reference range. Interpret the result using the reference range provided by the performing laboratory. Test performed by: [facility], [place], [place]. Performed By: #### B LSCF, HISTCF ####[facility] REFERENCE LABCLIA [id number] [place] [address] CBC panel Auto (Bld)on 10-14 Erythrocyte distribution width (RBC) [Ratio] 13.8 % Normal 11.5-15.0 [facility] Comment on above: Order Comment: Speci men Type: BLOOD SPECIMEN Performed By: #### 5 8410-2 ####[facility] LABORATORYCLIA [id number] [place] [address] Hematocrit (Bld) [Volume fraction] 37.9 % Normal 36.0-46.0 [facility] Comment on above: Order Comment: Speci men Type: BLOOD SPECIMEN Performed By: #### 5 8410-2 ####[facility]ORATORYCLIA [id number] [place] [address] Hemoglobin (Bld) [Mass/Vol] 12.8 g/dL Normal 11.5-15.5 [facility] Comment on above: Order Comment: Speci men Type: BLOOD SPECIMEN Performed By: #### 5 8410-2 ####[facility] LABORATORYCLIA [id number] [place] [address] MCH (RBC) [Entitic mass] 32.7 pg Normal 26.0-34.0 [facility] Comment on above: Order Comment: Speci men Type: BLOOD SPECIMEN Performed By: #### 5 8410-2 ####[facility] LABORATORYCLIA [id number] [place] [address] MCHC (RBC) [Mass/Vol] 33.8 g/dL Normal 30.5-36.0 [facility] Comment on above: Order Comment: Speci men Type: BLOOD SPECIMEN Performed By: #### 5 8410-2 ####[facility]ORATORYCLIA [id number] [place] [address] MCV (RBC) [Entitic vol] 96.9 fL Normal 80.0-100.0 [facility] Comment on above: Order Comment: Speci men Type: BLOOD SPECIMEN Performed By: #### 5 8410-2 ####[facility]ORATORYCLIA [id number] [place] [address] Nucleated RBC (Bld) [#/Vol] 10*3/uL Normal <0.01 [facility] Comment on above: Order Comment: Speci men Type: BLOOD SPECIMEN Performed By: #### 5 8410-2 ####[facility]ORATORYCLIA [id number] [place] [address] Platelet mean volume (Bld) [Entitic vol] 9.7 fL Normal 9.0-12.7 [facility] Comment on above: Order Comment: Speci men Type: BLOOD SPECIMEN Performed By: #### 5 8410-2 ####[facility]ORATORYCLIA [id number] [place] [address] Platelets (Bld) [#/Vol] 197 10*3/uL Normal 150-400 [facility] Comment on above: Order Comment: Speci men Type: BLOOD SPECIMEN Performed By: #### 5 8410-2 ####[facility]ORATORYCLIA [id number] [place] [address] RBC (Bld) [#/Vol] 3.91 10*6/uL Normal 3.90-5.20 [facility] Comment on above: Order Comment: Speci men Type: BLOOD SPECIMEN Performed By: #### 5 8410-2 ####[facility]ORATORYCLIA [id number] [place] [address] WBC (Bld) [#/Vol] 7.36 10*3/uL Normal 3.70-11.00 [facility] Comment on above: Order Comment: Speci men Type: BLOOD SPECIMEN Performed By: #### 5 8410-2 ####[facility]ORATORYCLIA [id number] [place] [address] CONSULT PROGon 10-14-2020 CONSULT PROG Normal [facility] CONSULT PROG Normal [facility] CONSULT PROG Normal [facility] CRP SerPl-mCncon 10-14-2020 CRP [Mass/Vol] 0.6 mg/dL Normal <0.9 [facility] Comment on above: Order Comment: Speci men Type: BLOOD SPECIMEN Performed By: #### 1 988-5 ####[facility]ORATORYCLIA [id number] [place] [address] ESR Westergren method (Bld) [Velocity]on 10-14-2020 ESR (Bld) [Velocity] 9 mm/h Normal 0-20 [facility] Comment on above: Order Comment: Speci men Type: BLOOD SPECIMEN Performed By: #### 4 537-7 ####[facility] LABORATORYCLIA [id number] [place] [address] FUNGAL BATTERY IDon 10-15-19 21 Aspergillus sp Ab Immune diff Ql (S) Negative Normal NEGAT [facility] Comment on above: Order Comment: Speci men Type: BLOOD SPECIMEN Performed By: #### F UNID ####[facility] REFER[facility] LABCLIA [id number] [place] [address] B. dermatitidis Ab Immune diff Ql (S) Negative Normal [facility] Comment on above: Order Comment: Speci men Type: BLOOD SPECIMEN Performed By: #### F UNID ####[facility] REFER[facility] LABCLIA [id number] [place] [address] Coccidioides sp Ab Immune diff Ql (S) Negative Normal [facility] Comment on above: Order Comment: Speci men Type: BLOOD SPECIMEN Performed By: #### F UNID ####[facility] REFER[facility] LABCLIA [id number] [place] [address] H. capsulatum Ab Immune diff Ql (S) Negative Normal [facility] Comment on above: Order Comment: Speci men Type: BLOOD SPECIMEN Performed By: #### F UNID ####[facility] REFER[facility] LABCLIA [id number] [place] [address] FUNGAL HISTO BL CULTon 10-14 FUNGAL HISTO BL CULT CULTURE, FUNGAL: No Fungus isolated after 28 days Normal [facility] Comment on above: Performed By: #### H ISTCL ####[facility] LABORATORYCLIA [id number] [place] [address] HISTOPLASMA AB CFon 10-15-19 21 H. capsulatum mycelial phase Ab CF (S) [Titer] See Comment Abnormal DLT8 [facility] Comment on above: Order Comment: Speci men Type: BLOOD SPECIMEN Result Comment: The Histoplasma Mycelia, CF result is <1:8. The reference interval of [facility] is less than 1 to 8. Disregard [facility] reference range. Interpret the result using the reference range provided by the performing laboratory. Test performed by: [facility], [place], [place]. Performed By: #### B LSCF, HISTCF ####[facility] REFERENCE LABCLIA [id number] [place] [address] H. capsulatum yeast phase Ab CF (S) [Titer] See Comment Abnormal DLT8 [facility] Comment on above: Order Comment: Speci men Type: BLOOD SPECIMEN Result Comment: The Histoplasma Yeast, CF result is <1:8 The reference interval of [facility] is less than 1 to 8. Interpretive Information Histoplasma Antibodies by Complement Fixation CF An antibody titer greater than or equal to 1 to 8 is generally considered presumptive evidence of histoplasmosis. Greater than 1 to 32 or rising titers indicate strong presumptive evidence of histoplasmosis. The yeast phase is regarded as more sensitive. Approximate 90 to 95 percent of cases have positive titers to one or both antigens. Titers to mycelial antigen are higher in chronic infections. Cross reactions, usually at lower titers, may occur with other fungal disease. Rising titers suggest progression of infection. Skin tests in individuals previously exposed may cause titer elevation in 17 to 20 percent of cases. Disregard [facility] reference range. Interpret the result using the reference range provided by the performing laboratory. Test performed by: [facility], [place], [place]. Performed By: #### B LSCF, HISTCF ####[facility] REFERENCE LABCLIA [id number] [place] [address] HIV 1+2 Ab IA Qlon 1 HIV 1 and 2 Ab IA.rapid Nom Normal [facility] Comment on above: Order Comment: Speci men Type: BLOOD SPECIMEN Result Comment: Test not indicated. Performed By: #### 3 1201-7 ####[facility] LABORATORYCLIA [id number] [place] [address] HIV 1+2 Ab+HIV1 p24 Ag IA Ql Non-Reactive Normal Nonreactive [facility] Comment on above: Order Comment: Speci men Type: BLOOD SPECIMEN Result Comment: [place] Rev. Code 3701.243(E): This information has been disclosed to you from confidential records protected from disclosure by state law. ???You shall make no further disclosure of this information without the specific, written, and informed release of the individual to whom it pertains or as otherwise permitted by state law. A general authorization for the release of medical or other information is not sufficient for the purpose of the release of HIV test results or diagnoses. Performed By: #### 3 1201-7 ####[facility] LABORATORYCLIA [id number] [place] [address] HIVINT Normal [facility] Comment on above: Order Comment: Speci men Type: BLOOD SPECIMEN Result Comment: No e vidence of HIV-1 or HIV-2 infection. Should recent infection be suspected, repeat testing may be considered 2-3 weeks after this draw. Performed By: #### 3 1201-7 ####[facility] LABORATORYCLIA [id number] [place] [address] MYCOPLASMA PNEUM IGGon 10-14 M PNEUMONIAE IGG, QUAL Positive Abnormal NEGAT [facility] Comment on above: Order Comment: Speci men Type: BLOOD SPECIMEN Result Comment: IgG antibodies specific to M. pneumoniae were detected. A reactive test result indicates a past/present infection. Performed By: #### W HIPWElia, NOAHOG ####[facility] REFERENCE LABCLIA [id number] [place] [address] M. pneumoniae IgG IA Qn (S) 1.21 OD Normal [facility] Comment on above: Order Comment: Speci men Type: BLOOD SPECIMEN Result Comment: Inde x Values/OD Ratios are interpreted as follows:Negative: < or = 0.90Equivocal: 0.91 to 1.09Positive: > or = 1.10 Performed By: #### W HIPWElia, MYCOG ####[facility] REFER[facility] LABCLIA [id number] [place] [address] THERAPY NTon 10-14-2020 THERAPY NT Normal [facility] WHIPPLE'S PCR WBon Specimen source Nom (Unsp spec) EDTA PLASMA Normal [facility] Comment on above: Order Comment: Speci men Type: BLOOD SPECIMEN Performed By: #### W HIPWB, MYCOG ####[facility] REFERENCE LABCLIA [id number] [place] [address] T. whippelii DNA ANGELINE+probe Ql (Bld) Not detected Normal [facility] Comment on above: Order Comment: Speci men Type: BLOOD SPECIMEN Result Comment: (NOT E)NOT DETECTED - A negative result does not rule out thepresence of PCR inhibitors in the patient specimen or assayspecific nucleic acid in concentrations below the level ofdetection by the assay.INTERPRETIVE INFORMATION: Tropheryma whipplei PCRThis test was developed and its performance characteristicsdetermined by [facility]. It has not been cleared orapproved by the [place] Food and Drug Administration. This test wasperformed in a CLIA certified laboratory and is intended forclinical purposes.Performed by [facility],[address] [place] [address] qyp.[employer], Latosha Davila MD, Lab. Director Performed By: #### W STELLA BLACKMON ####[facility] REFERENCE LABCLIA [id number] [place] [address] aPTT PPPon 10-14-2020 aPTT Coag (PPP) [Time] 62.4 s High 23.0-32.4 [facility] Comment on above: Order Comment: Speci men Type: BLOOD SPECIMEN Performed By: #### 1 4979-9 ####[facility] LABORATORYCLIA [id number] [place] [address] aPTT Coag (PPP) [Time] 42.1 s High 23.0-32.4 [facility] Comment on above: Order Comment: Speci men Type: BLOOD SPECIMEN Performed By: #### 1 4979-9 ####[facility] LABORATORYCLIA [id number] [place] [address] aPTT Coag (PPP) [Time] 51.4 s High 23.0-32.4 [facility] Comment on above: Order Comment: Speci men Type: BLOOD SPECIMEN Performed By: #### 1 4979-9 ####[facility]ORATORYCLIA [id number] [place] [address] BRIEF OP NOTon 10-13-2020 BRIEF OP NOT Normal [facility] Bacteria Bld Culton 10-14-19 21 Bacteria identified Cx Nom (Bld) CULTURE, BLOOD: No growth 5 days Normal [facility] Comment on above: Performed By: #### 6 00-7 ####[facility]ATORYCLIA [id number] [place] [address] Bacteria identified Cx Nom (Bld) CULTURE, BLOOD: No growth 5 days Normal [facility] Comment on above: Performed By: #### 6 00-7 ####[facility]ATORYCLIA [id number] [place] [address] CASE MANAGEMon 10-13-2020 CASE MANAGEM Normal [facility] CASE MGT INIT ASSESon 2020 CASE MGT INIT ASSES Normal [facility] CBC panel Auto (Bld)on 10-13 Erythrocyte distribution width (RBC) [Ratio] 13.8 % Normal 11.5-15.0 [facility] Comment on above: Order Comment: Speci men Type: BLOOD SPECIMEN Performed By: #### 5 8410-2 ####[facility]ORATORYCLIA [id number] [place] [address] Hematocrit (Bld) [Volume fraction] 39.1 % Normal 36.0-46.0 [facility] Comment on above: Order Comment: Speci men Type: BLOOD SPECIMEN Performed By: #### 5 8410-2 ####[facility]ATORYCLIA [id number] [place] [address] Hemoglobin (Bld) [Mass/Vol] 13.1 g/dL Normal 11.5-15.5 [facility] Comment on above: Order Comment: Speci men Type: BLOOD SPECIMEN Performed By: #### 5 8410-2 ####[facility]ORATORYCLIA [id number] [place] [address] MCH (RBC) [Entitic mass] 33.2 pg Normal 26.0-34.0 [facility] Comment on above: Order Comment: Speci men Type: BLOOD SPECIMEN Performed By: #### 5 8410-2 ####[facility]ORATORYCLIA [id number] [place] [address] MCHC (RBC) [Mass/Vol] 33.5 g/dL Normal 30.5-36.0 [facility] Comment on above: Order Comment: Speci men Type: BLOOD SPECIMEN Performed By: #### 5 8410-2 ####[facility]ORATORYCLIA [id number] [place] [address] MCV (RBC) [Entitic vol] 99.0 fL Normal 80.0-100.0 [facility] Comment on above: Order Comment: Speci men Type: BLOOD SPECIMEN Performed By: #### 5 8410-2 ####[facility]ATORYCLIA [id number] [place] [address] Nucleated RBC (Bld) [#/Vol] 10*3/uL Normal <0.01 [facility] Comment on above: Order Comment: Speci men Type: BLOOD SPECIMEN Performed By: #### 5 8410-2 ####[facility]ORATORYCLIA [id number] [place] [address] Platelet mean volume (Bld) [Entitic vol] 10.3 fL Normal 9.0-12.7 [facility] Comment on above: Order Comment: Speci men Type: BLOOD SPECIMEN Performed By: #### 5 8410-2 ####[facility]ORATORYCLIA [id number] [place] [address] Platelets (Bld) [#/Vol] 220 10*3/uL Normal 150-400 [facility] Comment on above: Order Comment: Speci men Type: BLOOD SPECIMEN Performed By: #### 5 8410-2 ####[facility]ATORYCLIA [id number] [place] [address] RBC (Bld) [#/Vol] 3.95 10*6/uL Normal 3.90-5.20 [facility] Comment on above: Order Comment: Speci men Type: BLOOD SPECIMEN Performed By: #### 5 8410-2 ####[facility]ORATORYCLIA [id number] [place] [address] WBC (Bld) [#/Vol] 6.13 10*3/uL Normal 3.70-11.00 [facility] Comment on above: Order Comment: Speci men Type: BLOOD SPECIMEN Performed By: #### 5 8410-2 ####[facility] LABORATORYCLIA [id number] [place] [address] CONSULTon 10-13-2020 CONSULT Normal [facility] CONSULT Normal [facility] CONSULT PROGon 10-13-2020 CONSULT PROG Normal [facility] CONSULT PROG Normal [facility] NIL INTERNAL/CEREBRAL BILon 10-13-2020 NIL INTERNAL/CEREBRAL JASON Final Report DATE OF EXAM: Oct 13 2020 10:30AM A6A 5131 - NIL INTERNAL/CEREBRAL JASON / PROCEDURE REASON: eval for aneurysm Physician Interpretation Diagnostic Cerebral Angiogram Report CLINICAL HISTORY: This patient is a 55 years -old Female who presents with new onset headaches and two areas concerning for cerebral aneurysms on her noninvasive imaging. A diagnostic cerebral angiogram was requested to evaluate the cerebral vasculature. PROCEDURE: Diagnostic cerebral angiogram. TIME OUT TIME: 9:42AM PROCEDURE START TIME: 9:42AM PROCEDURE END TIME: 10:20AM ATTENDING: Luz Armas MD, SUPERVISOR [employer] (FELLOW): The procedure was performed by the attending without an administrative assistant office manager. The attending performed the following procedural activities: Diagnostic cerebral angiogram. ANGIOGRAPHY MATERIALS: Diagnostic catheter: 5 Guyanese Vert Catheter , 5 Guyanese pigtail catheter Guidewire: 0.035 inch angled tapered Glidewire. Fluoroscopic Radiation Summary: Plane A, Air Kerma: 1991.0 mGy Plane B, Air Kerma: 413.0 mGy Dose Area Product (DAP): 0.0 mGycm2 Fluoro time: 7:12 min:sec arterial: 162 ml of OMNIPAQUE 300 ANESTHESIA: Conscious sedation with 50 mcg fentanyl and 1 mg Versed were administered by IV with continuous monitoring by a dedicated nurse. Pulsed oximetry, cardiopulmonary monitoring and electrocardiography was performed throughout the procedure. My intra-service time was 60 minutes. TECHNIQUE: After lucy discussion of the risks and benefits of diagnostic cerebral angiography, informed consent was obtained. The patient was brought to the angiography suite and placed in supine position. After hemodynamic monitoring was established, conscious sedation was administered by our nursing staff. The right groin was prepped and draped in the usual standard fashion, 1% lidocaine was used for local anesthetic. After fluoroscopic localization of the right femoral head, vascular access was obtained in the right common femoral artery utilizing a 4 Guyanese micropuncture set. A 5 Guyanese sheath was inserted and connected to heparinized saline flush. A 5F pigtail catheter was advanced over a PTFE wire to the ascending aorta and the wire removed. Using a power injection and views over the chest, angiographic imaging of the aortic arch was performed. A standard diagnostic catheter and wire were then fluoroscopically advanced for selective catheterization of the following vessels: Brachiocephalic vascular family: Right common carotid artery, cervical views. Right internal carotid artery, intracranial views. Standard AP, lateral and oblique views. Right external carotid artery, cranial views. Left carotid vascular family: Left common carotid artery, cervical views. Left internal carotid artery, intracranial views. Standard AP, lateral and oblique views. Left subclavian vascular family: Left vertebral artery, intracranial views. Standard AP, lateral and Angy's views. Right femoral artery Angiographic imaging was performed at each selected vessel with views as described above.3D rotational angiography was obtained with the catheter placed in the [left ICA, right ICA and left vertebral arteries]. Images were reconstructed on a separate work station. After no further views and images were determined to be necessary, the procedure was terminated. All catheters and wires were removed from the patient. Hemostasis at the right groin was obtained by [employer]. The patient was transferred to recovery in stable condition without immediate complication. FINDINGS: AORTIC ARCH: DSA images of the aortic arch demonstrate a normal configuration of the arch and great vessels. The arch is class I. There is no significantatheroscleros is. There is no significant stenosis of the great vessels. RIGHT COMMON CAROTID ARTERY INJECTION (cervical): DSA images of the right anterior cervical circulation demonstrate normal course and caliber of the distal common carotid artery. The bifurcation is at C4. There is no significant atherosclerosis at the bifurcation by NASCET criteria.The cervical ICA has normal course and caliber. The proximal ECA and its branches demonstrate a normal course and caliber. There is no evidence of dissection or dural AV fistula. RIGHT INTERNAL CAROTID ARTERY INJECTION (cranial): DSA images of the right anterior intracranial circulation demonstrate normal course and caliber of the petrous, cavernous and supraclinoid segments of the internal carotid artery. The ophthalmic artery origin, course and caliber are normal. There is a small PCOMM artery without significant contribution to the posterior circulation. The anterior choroidal artery is normal. M1 and A1 segments are normal. MCA and ALFREDA distributions are normal. There is filling across the anterior communicating artery to the contralateral ALFREDA. There is a 6.8mmx 4.89mmx3.36mm with a 6.47mm neck left A1/A2 medially pointing aneurysm better seen on the left ICA injection. Capillary and venous phases are normal. RIGHT EXTERNAL CAROTID ARTERY (cranial): The external carotid artery course, caliber and terminal branches are normal. The superficial temporal artery has frontal and temporal branches larger than 1mm in size. No arteriovenous malformation or arteriovenous fistula is identified. LEFT COMMON CAROTID ARTERY INJECTION (cervical): DSA images of the left anterior cervical circulation demonstrate normal course and caliber of the distal common carotid artery. The bifurcation is at C4. There is no significant atherosclerosis at the bifurcation by NASCET criteria.The cervical ICA has normal course and caliber. The proximal ECA and its branches demonstrate a normal course and caliber. There is no evidence of dissection or dural AV fistula. LEFT COMMON CAROTID ARTERY INJECTION (cranial): DSA images of the left anterior intracranial circulation demonstrate normal course and caliber of the petrous, cavernous and supraclinoid segments of the internal carotid artery. The ophthalmic artery origin, course and caliber are normal. There is no visualized posterior communicating artery. The anterior choroidal artery is normal. M1 and A1 segments are normal. MCA and ALFREDA distributions are normal. There is filling across the anterior communicating artery to the contralateral ALFREDA. There is a 6.8mmx 4.89mmx3.36mm with a 6.47mm neck left A1/A2 medially pointing aneurysm. Capillary and venous phases are normal. No aneurysm or arteriovenous malformation is identified. The external carotid has normal course and caliber. LEFT VERTEBRAL ARTERY INJECTION: DSA images of the posterior intracranial circulation demonstrate normal course and caliber of the distal left vertebral artery. The vertebrobasilar confluence is normal. There is reflux of contrast down the right vertebral artery. The basilar segment is normal. There is a 6.3mmx5.83mmx4.37mm with a 2.97mm neck. Bilateral PICAs are normal Bilateral AICAs are normal.. Bilateral SCAs are normal. 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 The capillary and venous phases are normal. RIGHT FEMORAL ARTERY: DSA images of the right common femoral artery demonstrate normal course and caliber of the vessel. The sheath is placed in the straight segment of the artery, above the bifurcation. There is no evidence of dissection or pseudoaneurysm. (3D rotational angiography) Configuration of the [right ICA, left ICA and left vertebral artery were confirmed on the 3D image. IMPRESSION: 1. 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 2. 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 3. No signs of significant atherosclerotic disease or intracranial stenosis. Luz Armas MD, Endovascular Surgical Neuroradiology Baster Hand: [facility] Transcribe Date/Time: Oct 13 2020 4:51P Dictated by : LUZ ARMAS MD This examination was interpreted and the report reviewed and electronically signed by: LUZ ARMAS MD on Oct 13 2020 5:14PM EST Normal [facility] NIL NON SELECT NEURO W/WO AR Allen 10-13-2020 NIL NON SELECT NEURO W/WO ARCH Final Report DATE OF EXAM: Oct 13 2020 10:30AM A6A 9656 - NIL NON SELECT NEURO W/WO ARCH / PROCEDURE REASON: eval for aneurysm Physician Interpretation Diagnostic Cerebral Angiogram Report CLINICAL HISTORY: This patient is a 55 years -old Female who presents with new onset headaches and two areas concerning for cerebral aneurysms on her noninvasive imaging. A diagnostic cerebral angiogram was requested to evaluate the cerebral vasculature. PROCEDURE: Diagnostic cerebral angiogram. TIME OUT TIME: 9:42AM PROCEDURE START TIME: 9:42AM PROCEDURE END TIME: 10:20AM ATTENDING: Luz Armas MD, SUPERVISOR [employer] (FELLOW): The procedure was performed by the attending without an administrative assistant office manager. The attending performed the following procedural activities: Diagnostic cerebral angiogram. ANGIOGRAPHY MATERIALS: Diagnostic catheter: 5 Guyanese Vert Catheter , 5 Guyanese pigtail catheter Guidewire: 0.035 inch angled tapered Glidewire. Fluoroscopic Radiation Summary: Plane A, Air Kerma: 1991.0 mGy Plane B, Air Kerma: 413.0 mGy Dose Area Product (DAP): 0.0 mGycm2 Fluoro time: 7:12 min:sec arterial: 162 ml of OMNIPAQUE 300 ANESTHESIA: Conscious sedation with 50 mcg fentanyl and 1 mg Versed were administered by IV with continuous monitoring by a dedicated nurse. Pulsed oximetry, cardiopulmonary monitoring and electrocardiography was performed throughout the procedure. My intra-service time was 60 minutes. TECHNIQUE: After lucy discussion of the risks and benefits of diagnostic cerebral angiography, informed consent was obtained. The patient was brought to the angiography suite and placed in supine position. After hemodynamic monitoring was established, conscious sedation was administered by our nursing staff. The right groin was prepped and draped in the usual standard fashion, 1% lidocaine was used for local anesthetic. After fluoroscopic localization of the right femoral head, vascular access was obtained in the right common femoral artery utilizing a 4 Guyanese micropuncture set. A 5 Guyanese sheath was inserted and connected to heparinized saline flush. A 5F pigtail catheter was advanced over a PTFE wire to the ascending aorta and the wire removed. Using a power injection and views over the chest, angiographic imaging of the aortic arch was performed. A standard diagnostic catheter and wire were then fluoroscopically advanced for selective catheterization of the following vessels: Brachiocephalic vascular family: Right common carotid artery, cervical views. Right internal carotid artery, intracranial views. Standard AP, lateral and oblique views. Right external carotid artery, cranial views. Left carotid vascular family: Left common carotid artery, cervical views. Left internal carotid artery, intracranial views. Standard AP, lateral and oblique views. Left subclavian vascular family: Left vertebral artery, intracranial views. Standard AP, lateral and Angy's views. Right femoral artery Angiographic imaging was performed at each selected vessel with views as described above.3D rotational angiography was obtained with the catheter placed in the [left ICA, right ICA and left vertebral arteries]. Images were reconstructed on a separate work station. After no further views and images were determined to be necessary, the procedure was terminated. All catheters and wires were removed from the patient. Hemostasis at the right groin was obtained by [employer]. The patient was transferred to recovery in stable condition without immediate complication. FINDINGS: AORTIC ARCH: DSA images of the aortic arch demonstrate a normal configuration of the arch and great vessels. The arch is class I. There is no significantatheroscleros is. There is no significant stenosis of the great vessels. RIGHT COMMON CAROTID ARTERY INJECTION (cervical): DSA images of the right anterior cervical circulation demonstrate normal course and caliber of the distal common carotid artery. The bifurcation is at C4. There is no significant atherosclerosis at the bifurcation by NASCET criteria.The cervical ICA has normal course and caliber. The proximal ECA and its branches demonstrate a normal course and caliber. There is no evidence of dissection or dural AV fistula. RIGHT INTERNAL CAROTID ARTERY INJECTION (cranial): DSA images of the right anterior intracranial circulation demonstrate normal course and caliber of the petrous, cavernous and supraclinoid segments of the internal carotid artery. The ophthalmic artery origin, course and caliber are normal. There is a small PCOMM artery without significant contribution to the posterior circulation. The anterior choroidal artery is normal. M1 and A1 segments are normal. MCA and ALFREDA distributions are normal. There is filling across the anterior communicating artery to the contralateral ALFREDA. There is a 6.8mmx 4.89mmx3.36mm with a 6.47mm neck left A1/A2 medially pointing aneurysm better seen on the left ICA injection. Capillary and venous phases are normal. RIGHT EXTERNAL CAROTID ARTERY (cranial): The external carotid artery course, caliber and terminal branches are normal. The superficial temporal artery has frontal and temporal branches larger than 1mm in size. No arteriovenous malformation or arteriovenous fistula is identified. LEFT COMMON CAROTID ARTERY INJECTION (cervical): DSA images of the left anterior cervical circulation demonstrate normal course and caliber of the distal common carotid artery. The bifurcation is at C4. There is no significant atherosclerosis at the bifurcation by NASCET criteria.The cervical ICA has normal course and caliber. The proximal ECA and its branches demonstrate a normal course and caliber. There is no evidence of dissection or dural AV fistula. LEFT COMMON CAROTID ARTERY INJECTION (cranial): DSA images of the left anterior intracranial circulation demonstrate normal course and caliber of the petrous, cavernous and supraclinoid segments of the internal carotid artery. The ophthalmic artery origin, course and caliber are normal. There is no visualized posterior communicating artery. The anterior choroidal artery is normal. M1 and A1 segments are normal. MCA and ALFREDA distributions are normal. There is filling across the anterior communicating artery to the contralateral ALFREDA. There is a 6.8mmx 4.89mmx3.36mm with a 6.47mm neck left A1/A2 medially pointing aneurysm. Capillary and venous phases are normal. No aneurysm or arteriovenous malformation is identified. The external carotid has normal course and caliber. LEFT VERTEBRAL ARTERY INJECTION: DSA images of the posterior intracranial circulation demonstrate normal course and caliber of the distal left vertebral artery. The vertebrobasilar confluence is normal. There is reflux of contrast down the right vertebral artery. The basilar segment is normal. There is a 6.3mmx5.83mmx4.37mm with a 2.97mm neck. Bilateral PICAs are normal Bilateral AICAs are normal.. Bilateral SCAs are normal. 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 The capillary and venous phases are normal. RIGHT FEMORAL ARTERY: DSA images of the right common femoral artery demonstrate normal course and caliber of the vessel. The sheath is placed in the straight segment of the artery, above the bifurcation. There is no evidence of dissection or pseudoaneurysm. (3D rotational angiography) Configuration of the [right ICA, left ICA and left vertebral artery were confirmed on the 3D image. IMPRESSION: 1. 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 2. 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 3. No signs of significant atherosclerotic disease or intracranial stenosis. Luz Armas MD, Endovascular Surgical Neuroradiology Baster Hand: [facility] Transcribe Date/Time: Oct 13 2020 4:51P Dictated by : LUZ ARMAS MD This examination was interpreted and the report reviewed and electronically signed by: LUZ ARMAS MD on Oct 13 2020 5:14PM EST Normal [facility] NIL KJ BILAT EXT CAROTID H/ Non 10-13-2020 NIL KJ BILAT EXT CAROTID H/N Final Report DATE OF EXAM: Oct 13 2020 10:30AM A6A 0974 - NIL KJ BILAT EXT CAROTID H/N / PROCEDURE REASON: eval for aneurysm Physician Interpretation Diagnostic Cerebral Angiogram Report CLINICAL HISTORY: This patient is a 55 years -old Female who presents with new onset headaches and two areas concerning for cerebral aneurysms on her noninvasive imaging. A diagnostic cerebral angiogram was requested to evaluate the cerebral vasculature. PROCEDURE: Diagnostic cerebral angiogram. TIME OUT TIME: 9:42AM PROCEDURE START TIME: 9:42AM PROCEDURE END TIME: 10:20AM ATTENDING: Luz Armas MD, SUPERVISOR [employer] (FELLOW): The procedure was performed by the attending without an administrative assistant office manager. The attending performed the following procedural activities: Diagnostic cerebral angiogram. ANGIOGRAPHY MATERIALS: Diagnostic catheter: 5 Guyanese Vert Catheter , 5 Guyanese pigtail catheter Guidewire: 0.035 inch angled tapered Glidewire. Fluoroscopic Radiation Summary: Plane A, Air Kerma: 1991.0 mGy Plane B, Air Kerma: 413.0 mGy Dose Area Product (DAP): 0.0 mGycm2 Fluoro time: 7:12 min:sec arterial: 162 ml of OMNIPAQUE 300 ANESTHESIA: Conscious sedation with 50 mcg fentanyl and 1 mg Versed were administered by IV with continuous monitoring by a dedicated nurse. Pulsed oximetry, cardiopulmonary monitoring and electrocardiography was performed throughout the procedure. My intra-service time was 60 minutes. TECHNIQUE: After lucy discussion of the risks and benefits of diagnostic cerebral angiography, informed consent was obtained. The patient was brought to the angiography suite and placed in supine position. After hemodynamic monitoring was established, conscious sedation was administered by our nursing staff. The right groin was prepped and draped in the usual standard fashion, 1% lidocaine was used for local anesthetic. After fluoroscopic localization of the right femoral head, vascular access was obtained in the right common femoral artery utilizing a 4 Guyanese micropuncture set. A 5 Guyanese sheath was inserted and connected to heparinized saline flush. A 5F pigtail catheter was advanced over a PTFE wire to the ascending aorta and the wire removed. Using a power injection and views over the chest, angiographic imaging of the aortic arch was performed. A standard diagnostic catheter and wire were then fluoroscopically advanced for selective catheterization of the following vessels: Brachiocephalic vascular family: Right common carotid artery, cervical views. Right internal carotid artery, intracranial views. Standard AP, lateral and oblique views. Right external carotid artery, cranial views. Left carotid vascular family: Left common carotid artery, cervical views. Left internal carotid artery, intracranial views. Standard AP, lateral and oblique views. Left subclavian vascular family: Left vertebral artery, intracranial views. Standard AP, lateral and Angy's views. Right femoral artery Angiographic imaging was performed at each selected vessel with views as described above.3D rotational angiography was obtained with the catheter placed in the [left ICA, right ICA and left vertebral arteries]. Images were reconstructed on a separate work station. After no further views and images were determined to be necessary, the procedure was terminated. All catheters and wires were removed from the patient. Hemostasis at the right groin was obtained by Starclose. The patient was transferred to recovery in stable condition without immediate complication. FINDINGS: AORTIC ARCH: DSA images of the aortic arch demonstrate a normal configuration of the arch and great vessels. The arch is class I. There is no significantatheroscleros is. There is no significant stenosis of the great vessels. RIGHT COMMON CAROTID ARTERY INJECTION (cervical): DSA images of the right anterior cervical circulation demonstrate normal course and caliber of the distal common carotid artery. The bifurcation is at C4. There is no significant atherosclerosis at the bifurcation by NASCET criteria.The cervical ICA has normal course and caliber. The proximal ECA and its branches demonstrate a normal course and caliber. There is no evidence of dissection or dural AV fistula. RIGHT INTERNAL CAROTID ARTERY INJECTION (cranial): DSA images of the right anterior intracranial circulation demonstrate normal course and caliber of the petrous, cavernous and supraclinoid segments of the internal carotid artery. The ophthalmic artery origin, course and caliber are normal. There is a small PCOMM artery without significant contribution to the posterior circulation. The anterior choroidal artery is normal. M1 and A1 segments are normal. MCA and ALFREDA distributions are normal. There is filling across the anterior communicating artery to the contralateral ALFREDA. There is a 6.8mmx 4.89mmx3.36mm with a 6.47mm neck left A1/A2 medially pointing aneurysm better seen on the left ICA injection. Capillary and venous phases are normal. RIGHT EXTERNAL CAROTID ARTERY (cranial): The external carotid artery course, caliber and terminal branches are normal. The superficial temporal artery has frontal and temporal branches larger than 1mm in size. No arteriovenous malformation or arteriovenous fistula is identified. LEFT COMMON CAROTID ARTERY INJECTION (cervical): DSA images of the left anterior cervical circulation demonstrate normal course and caliber of the distal common carotid artery. The bifurcation is at C4. There is no significant atherosclerosis at the bifurcation by NASCET criteria.The cervical ICA has normal course and caliber. The proximal ECA and its branches demonstrate a normal course and caliber. There is no evidence of dissection or dural AV fistula. LEFT COMMON CAROTID ARTERY INJECTION (cranial): DSA images of the left anterior intracranial circulation demonstrate normal course and caliber of the petrous, cavernous and supraclinoid segments of the internal carotid artery. The ophthalmic artery origin, course and caliber are normal. There is no visualized posterior communicating artery. The anterior choroidal artery is normal. M1 and A1 segments are normal. MCA and ALFREDA distributions are normal. There is filling across the anterior communicating artery to the contralateral ALFREDA. There is a 6.8mmx 4.89mmx3.36mm with a 6.47mm neck left A1/A2 medially pointing aneurysm. Capillary and venous phases are normal. No aneurysm or arteriovenous malformation is identified. The external carotid has normal course and caliber. LEFT VERTEBRAL ARTERY INJECTION: DSA images of the posterior intracranial circulation demonstrate normal course and caliber of the distal left vertebral artery. The vertebrobasilar confluence is normal. There is reflux of contrast down the right vertebral artery. The basilar segment is normal. There is a 6.3mmx5.83mmx4.37mm with a 2.97mm neck. Bilateral PICAs are normal Bilateral AICAs are normal.. Bilateral SCAs are normal. 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 The capillary and venous phases are normal. RIGHT FEMORAL ARTERY: DSA images of the right common femoral artery demonstrate normal course and caliber of the vessel. The sheath is placed in the straight segment of the artery, above the bifurcation. There is no evidence of dissection or pseudoaneurysm. (3D rotational angiography) Configuration of the [right ICA, left ICA and left vertebral artery were confirmed on the 3D image. IMPRESSION: 1. 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 2. 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 3. No signs of significant atherosclerotic disease or intracranial stenosis. Luz Armas MD, Endovascular Surgical Neuroradiology Baster Hand: [facility] Transcribe Date/Time: Oct 13 2020 4:51P Dictated by : LUZ ARMAS MD This examination was interpreted and the report reviewed and electronically signed by: LUZ ARMAS MD on Oct 13 2020 5:14PM EST Normal [facility] NIL VERT BILon 10-13-2020 Bilirubin [Mass/Vol] Final Report DATE OF EXAM: Oct 13 2020 10:30AM A6A [id number] - NIL VERT JASON / PROCEDURE REASON: eval for aneurysm Physician Interpretation Diagnostic Cerebral Angiogram Report CLINICAL HISTORY: This patient is a 55 years -old Female who presents with new onset headaches and two areas concerning for cerebral aneurysms on her noninvasive imaging. A diagnostic cerebral angiogram was requested to evaluate the cerebral vasculature. PROCEDURE: Diagnostic cerebral angiogram. TIME OUT TIME: 9:42AM PROCEDURE START TIME: 9:42AM PROCEDURE END TIME: 10:20AM ATTENDING: Luz Armas MD, SUPERVISOR [employer] (FELLOW): The procedure was performed by the attending without an administrative assistant office manager. The attending performed the following procedural activities: Diagnostic cerebral angiogram. ANGIOGRAPHY MATERIALS: Diagnostic catheter: 5 Guyanese Vert Catheter , 5 Guyanese pigtail catheter Guidewire: 0.035 inch angled tapered Glidewire. Fluoroscopic Radiation Summary: Plane A, Air Kerma: 1991.0 mGy Plane B, Air Kerma: 413.0 mGy Dose Area Product (DAP): 0.0 mGycm2 Fluoro time: 7:12 min:sec arterial: 162 ml of OMNIPAQUE 300 ANESTHESIA: Conscious sedation with 50 mcg fentanyl and 1 mg Versed were administered by IV with continuous monitoring by a dedicated nurse. Pulsed oximetry, cardiopulmonary monitoring and electrocardiography was performed throughout the procedure. My intra-service time was 60 minutes. TECHNIQUE: After lucy discussion of the risks and benefits of diagnostic cerebral angiography, informed consent was obtained. The patient was brought to the angiography suite and placed in supine position. After hemodynamic monitoring was established, conscious sedation was administered by our nursing staff. The right groin was prepped and draped in the usual standard fashion, 1% lidocaine was used for local anesthetic. After fluoroscopic localization of the right femoral head, vascular access was obtained in the right common femoral artery utilizing a 4 Guyanese micropuncture set. A 5 Guyanese sheath was inserted and connected to heparinized saline flush. A 5F pigtail catheter was advanced over a PTFE wire to the ascending aorta and the wire removed. Using a power injection and views over the chest, angiographic imaging of the aortic arch was performed. A standard diagnostic catheter and wire were then fluoroscopically advanced for selective catheterization of the following vessels: Brachiocephalic vascular family: Right common carotid artery, cervical views. Right internal carotid artery, intracranial views. Standard AP, lateral and oblique views. Right external carotid artery, cranial views. Left carotid vascular family: Left common carotid artery, cervical views. Left internal carotid artery, intracranial views. Standard AP, lateral and oblique views. Left subclavian vascular family: Left vertebral artery, intracranial views. Standard AP, lateral and Angy's views. Right femoral artery Angiographic imaging was performed at each selected vessel with views as described above.3D rotational angiography was obtained with the catheter placed in the [left ICA, right ICA and left vertebral arteries]. Images were reconstructed on a separate work station. After no further views and images were determined to be necessary, the procedure was terminated. All catheters and wires were removed from the patient. Hemostasis at the right groin was obtained by Starclose. The patient was transferred to recovery in stable condition without immediate complication. FINDINGS: AORTIC ARCH: DSA images of the aortic arch demonstrate a normal configuration of the arch and great vessels. The arch is class I. There is no significantatheroscleros is. There is no significant stenosis of the great vessels. RIGHT COMMON CAROTID ARTERY INJECTION (cervical): DSA images of the right anterior cervical circulation demonstrate normal course and caliber of the distal common carotid artery. The bifurcation is at C4. There is no significant atherosclerosis at the bifurcation by NASCET criteria.The cervical ICA has normal course and caliber. The proximal ECA and its branches demonstrate a normal course and caliber. There is no evidence of dissection or dural AV fistula. RIGHT INTERNAL CAROTID ARTERY INJECTION (cranial): DSA images of the right anterior intracranial circulation demonstrate normal course and caliber of the petrous, cavernous and supraclinoid segments of the internal carotid artery. The ophthalmic artery origin, course and caliber are normal. There is a small PCOMM artery without significant contribution to the posterior circulation. The anterior choroidal artery is normal. M1 and A1 segments are normal. MCA and ALFREDA distributions are normal. There is filling across the anterior communicating artery to the contralateral ALFREDA. There is a 6.8mmx 4.89mmx3.36mm with a 6.47mm neck left A1/A2 medially pointing aneurysm better seen on the left ICA injection. Capillary and venous phases are normal. RIGHT EXTERNAL CAROTID ARTERY (cranial): The external carotid artery course, caliber and terminal branches are normal. The superficial temporal artery has frontal and temporal branches larger than 1mm in size. No arteriovenous malformation or arteriovenous fistula is identified. LEFT COMMON CAROTID ARTERY INJECTION (cervical): DSA images of the left anterior cervical circulation demonstrate normal course and caliber of the distal common carotid artery. The bifurcation is at C4. There is no significant atherosclerosis at the bifurcation by NASCET criteria.The cervical ICA has normal course and caliber. The proximal ECA and its branches demonstrate a normal course and caliber. There is no evidence of dissection or dural AV fistula. LEFT COMMON CAROTID ARTERY INJECTION (cranial): DSA images of the left anterior intracranial circulation demonstrate normal course and caliber of the petrous, cavernous and supraclinoid segments of the internal carotid artery. The ophthalmic artery origin, course and caliber are normal. There is no visualized posterior communicating artery. The anterior choroidal artery is normal. M1 and A1 segments are normal. MCA and ALFREDA distributions are normal. There is filling across the anterior communicating artery to the contralateral ALFREDA. There is a 6.8mmx 4.89mmx3.36mm with a 6.47mm neck left A1/A2 medially pointing aneurysm. Capillary and venous phases are normal. No aneurysm or arteriovenous malformation is identified. The external carotid has normal course and caliber. LEFT VERTEBRAL ARTERY INJECTION: DSA images of the posterior intracranial circulation demonstrate normal course and caliber of the distal left vertebral artery. The vertebrobasilar confluence is normal. There is reflux of contrast down the right vertebral artery. The basilar segment is normal. There is a 6.3mmx5.83mmx4.37mm with a 2.97mm neck. Bilateral PICAs are normal Bilateral AICAs are normal.. Bilateral SCAs are normal. 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 The capillary and venous phases are normal. RIGHT FEMORAL ARTERY: DSA images of the right common femoral artery demonstrate normal course and caliber of the vessel. The sheath is placed in the straight segment of the artery, above the bifurcation. There is no evidence of dissection or pseudoaneurysm. (3D rotational angiography) Configuration of the [right ICA, left ICA and left vertebral artery were confirmed on the 3D image. IMPRESSION: 1. 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 2. 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 3. No signs of significant atherosclerotic disease or intracranial stenosis. Luz Armas MD, Endovascular Surgical Neuroradiology Baster Hand: [facility] Transcribe Date/Time: Oct 13 2020 4:51P Dictated by : LUZ ARMAS MD This examination was interpreted and the report reviewed and electronically signed by: LUZ ARMAS MD on Oct 13 2020 5:14PM EST Normal [facility] THERAPY NTon 10-13-2020 THERAPY NT Normal [facility] THERAPY NT Normal [facility] aPTT PPPon 10-13-2020 aPTT Coag (PPP) [Time] 76.9 s High 23.0-32.4 [facility] Comment on above: Order Comment: Speci men Type: BLOOD SPECIMEN Performed By: #### 1 4979-9 ####[facility] [id number] [place] [address] aPTT Coag (PPP) [Time] 37.8 s High 23.0-32.4 [facility] Comment on above: Order Comment: Speci men Type: BLOOD SPECIMEN Performed By: #### 1 4979-9 ####[facility]CL[facility] [id number] [place] [address] aPTT Coag (PPP) [Time] 84.2 s High 23.0-32.4 [facility] Comment on above: Order Comment: Speci men Type: BLOOD SPECIMEN Performed By: #### 1 4979-9 ####[facility]ORYCLIA [id number] [place] [address] CBC panel Auto (Bld)on 10-12 Erythrocyte distribution width (RBC) [Ratio] 14.1 % Normal 11.5-15.0 [facility] Comment on above: Order Comment: Speci men Type: BLOOD SPECIMEN Performed By: #### 5 8410-2 ####[facility] [id number] [place] [address] Hematocrit (Bld) [Volume fraction] 41.9 % Normal 36.0-46.0 [facility] Comment on above: Order Comment: Speci men Type: BLOOD SPECIMEN Performed By: #### 5 8410-2 ####[facility]ORYCL[facility] [id number] [place] [address] Hemoglobin (Bld) [Mass/Vol] 14.1 g/dL Normal 11.5-15.5 [facility] Comment on above: Order Comment: Speci men Type: BLOOD SPECIMEN Performed By: #### 5 8410-2 ####[facility]ORYCLIA [id number] [place] [address] MCH (RBC) [Entitic mass] 33.3 pg Normal 26.0-34.0 [facility] Comment on above: Order Comment: Speci men Type: BLOOD SPECIMEN Performed By: #### 5 8410-2 ####[facility]ORYCLIA [id number] [place] [address] MCHC (RBC) [Mass/Vol] 33.7 g/dL Normal 30.5-36.0 [facility] Comment on above: Order Comment: Speci men Type: BLOOD SPECIMEN Performed By: #### 5 8410-2 ####[facility]ORYCLIA [id number] [place] [address] MCV (RBC) [Entitic vol] 99.1 fL Normal 80.0-100.0 [facility] Comment on above: Order Comment: Speci men Type: BLOOD SPECIMEN Performed By: #### 5 8410-2 ####[facility]ORYCLIA [id number] [place] [address] Nucleated RBC (Bld) [#/Vol] 10*3/uL Normal <0.01 [facility] Comment on above: Order Comment: Speci men Type: BLOOD SPECIMEN Performed By: #### 5 8410-2 ####[facility]ORYCLIA [id number] [place] [address] Platelet mean volume (Bld) [Entitic vol] 10.4 fL Normal 9.0-12.7 [facility] Comment on above: Order Comment: Speci men Type: BLOOD SPECIMEN Performed By: #### 5 8410-2 ####[facility]ORYCLIA [id number] [place] [address] Platelets (Bld) [#/Vol] 234 10*3/uL Normal 150-400 [facility] Comment on above: Order Comment: Speci men Type: BLOOD SPECIMEN Performed By: #### 5 8410-2 ####[facility]ORYCLIA [id number] [place] [address] RBC (Bld) [#/Vol] 4.23 10*6/uL Normal 3.90-5.20 [facility] Comment on above: Order Comment: Speci men Type: BLOOD SPECIMEN Performed By: #### 5 8410-2 ####[facility]ORYCLIA [id number] [place] [address] WBC (Bld) [#/Vol] 6.82 10*3/uL Normal 3.70-11.00 [facility] Comment on above: Order Comment: Speci men Type: BLOOD SPECIMEN Performed By: #### 5 8410-2 ####[facility]ORYCLIA [id number] [place] [address] CONSULT PROGon 10-12-2020 CONSULT PROG Normal [facility] NURSING PROGon 10-12-2020 NURSING PROG Normal [facility] PT panel Coag (PPP)on 2020 INR Coag (PPP) [Relative time] 1.3 {INR} Normal 0.9-1.3 [facility] Comment on above: Order Comment: Speci men Type: BLOOD SPECIMEN Result Comment: Nicolasa min K Antagonist (VKA) Therapeutic Range: INR 2 to 3 (Target INR of 2.5)Note: For patients treated with VKA drugs, such as warfarin, the [place] [employer] 2012 Guideline recommends a therapeutic INR range of 2 to 3 (target INR of 2.5). This recommendation includes high-risk patients with antiphospholipid syndrome with previous arterial or venous thromboembolism, current-generation mechanical or bioprosthetic aortic heart valve replacement.Note: Patients with mechanical aortic valve replacement and additional risk factors for thromboembolic events (atrial fibrillation, previous thromboembolism, LV dysfunction, hypercoagulable conditions) or an older generation mechanical AVR (i.e., ball in-Cage) or any mechanical MVR should have a INR therapeutic range of 2.5 to 3.5 (target INR of 3).Teresa FRYE, et al. Chest 2012, 141:7S-47SKunal RA, et al. [facility] 2017, 70: 252-289 Performed By: #### 3 4528-0 ####[facility]ATORYCLIA [id number] [place] [address] PT Coag (PPP) [Time] 13.1 s High 9.7-13.0 [facility] Comment on above: Order Comment: Speci men Type: BLOOD SPECIMEN Performed By: #### 3 4528-0 ####[facility]ORYCLIA [id number] [place] [address] THERAPY NTon 10-12-2020 THERAPY NT Normal [facility] THERAPY NT Normal [facility] THERAPY NT Normal [facility] aPTT PPPon 10-12-2020 aPTT Coag (PPP) [Time] 40.2 s High 23.0-32.4 [facility] Comment on above: Order Comment: Speci men Type: BLOOD SPECIMEN Performed By: #### 1 4979-9 ####[facility]ORYCLIA [id number] [place] [address] aPTT Coag (PPP) [Time] 71.7 s High 23.0-32.4 [facility] Comment on above: Order Comment: Speci men Type: BLOOD SPECIMEN Performed By: #### 1 4979-9 ####[facility]ORYCLIA [id number] [place] [address] aPTT Coag (PPP) [Time] 48.6 s High 23.0-32.4 [facility] Comment on above: Order Comment: Speci men Type: BLOOD SPECIMEN Performed By: #### 1 4979-9 ####[facility]ORYCLIA [id number] [place] [address] aPTT Coag (PPP) [Time] 77.7 s High 23.0-32.4 [facility] Comment on above: Order Comment: Speci men Type: BLOOD SPECIMEN Performed By: #### 1 4979-9 ####[facility]ATORYCLIA [id number] [place] [address] .Auto Diffon 10-11-2020 Ammonia (P) [Mass/Vol] 0.70 10 3/mcL Normal 0.15-1.00 [facility] ([place]) Comment on above: Performed By: #### C BC, ADIFF, ANEU, TROPHS, BMP #### [address] [address] #### GFR #### [address] [address] Basophils (Bld) [#/Vol] 0.10 10 3/mcL Normal 0.00-0.19 [facility] ([place]) Comment on above: Performed By: #### C BC, ADIFF, ANEU, TROPHS, BMP #### [address] [address] #### GFR #### [address] [address] Basophils/100 WBC (Bld) 1.0 % Normal 0.0-2.5 [facility] ([place]) Comment on above: Performed By: #### C BC, ADIFF, ANEU, TROPHS, BMP #### [place] [address] #### GFR #### [address] [address] Eosinophils (Bld) [#/Vol] 0.30 10 3/mcL Normal 0.00-0.40 [facility] ([place]) Comment on above: Performed By: #### C BC, ADIFF, ANEU, TROPHS, BMP #### [place] [address] #### GFR #### [address] [address] Eosinophils/100 WBC (Bld) 4.7 % Normal 0.0-7.0 [facility] ([place]) Comment on above: Performed By: #### C BC, ADIFF, ANEU, TROPHS, BMP #### [place] [address] #### GFR #### [address] [address] Lymphocytes (Bld) [#/Vol] 1.60 10 3/mcL Normal 0.77-3.85 [facility] ([place]) Comment on above: Performed By: #### C BC, ADIFF, ANEU, TROPHS, BMP #### [place] [address] #### GFR #### [address] [address] Lymphocytes/100 WBC (Bld) 23.9 % Normal 10.0-50.0 [facility] ([place]) Comment on above: Performed By: #### C BC, ADIFF, ANEU, TROPHS, BMP #### [address] [address] #### GFR #### [address] [address] Monocytes/100 WBC (Bld) 10.5 % Normal 1.7-13.0 [facility] ([place]) Comment on above: Performed By: #### C BC, ADIFF, ANEU, TROPHS, BMP #### [address] [address] #### GFR #### [address] [address] Neutrophils/100 WBC (Bld) 59.9 % Normal 37.0-80.0 [facility] ([place]) Comment on above: Performed By: #### C BC, ADIFF, ANEU, TROPHS, BMP #### [place] [address] #### GFR #### [address] [address] .GFRon 10-11-2020 GFR 75 ml/min/1.73sqm Normal [facility] ([place]) Comment on above: Result Comment: GFR Population mean for , Non- Americans Ages 20-29 = 116 mL/min/1.73 sq.m. Ages 30-39 = 107 mL/min/1.73 sq.m. Ages 40-49 = 99 mL/min/1.73 sq.m. Ages 50-59 = 93 mL/min/1.73 sq.m. Ages 60-69 = 85 mL/min/1.73 sq.m. Ages 70+ = 75 mL/min/1.73 sq.m. Chronic Kidney Disease: Less than 60 mL/min/1.73 square meters End Stage Renal Disease: Less than 15 mL/min/1.73 square meters Performed By: #### C BC, ADIFF, ANEU, TROPHS, BMP #### [place] [address] #### GFR #### [address] [address] GFR Non- 62 ml/min/1.73sqm Normal [facility] ([place]) Comment on above: Result Comment: GFR Population mean for , Non- Americans Ages 20-29 = 116 mL/min/1.73 sq.m. Ages 30-39 = 107 mL/min/1.73 sq.m. Ages 40-49 = 99 mL/min/1.73 sq.m. Ages 50-59 = 93 mL/min/1.73 sq.m. Ages 60-69 = 85 mL/min/1.73 sq.m. Ages 70+ = 75 mL/min/1.73 sq.m. Chronic Kidney Disease: Less than 60 mL/min/1.73 square meters End Stage Renal Disease: Less than 15 mL/min/1.73 square meters Performed By: #### C BCMILEY, ANEU, TROPHS, BMP #### [place] [address] #### GFR #### [place] [address] .NEUABSon 10-11-2020 Neutrophils (Bld) [#/Vol] 4.10 10 3/mcL Normal 2.85-6.16 [facility] ([place]) Comment on above: Performed By: #### C BC ADVIDHYA, ANEU, TROPHS, BMP #### [place] [address] #### GFR #### [place] [address] 2019 CORONAVIRUSon SARS-CoV-2 (COVID-19) RNA ANGELINE+probe Ql (Unsp spec) Normal [facility] Comment on above: Performed By: #### C OVID ####[facility] LABCLIA [id number] [place] [address] ALLIED HEALTHon 10-11-2020 ALLIED HEALTH HNO ID: [id number] Author: Amanda PelletierRt) Candido El Service: Radiology Author Type: Nutritional Health Coach Type: Allied Health Filed: 10/11/2020 9:53 AM Note Text: Patient is 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 RN notified. Normal [facility] HNO ID: [id number] Author: Candido Jama (Rt) Service: Radiology Author Type: Nutritional Health Coach Type: Allied Health Filed: 10/11/2020 7:59 AM Note Text: Called for MRI Safety screening form Normal [facility] BMPon 10-11-2020 Calcium [Mass/Vol] 8.6 mg/dL Normal 8.4-10.2 [facility] ([place]) Comment on above: Performed By: #### C BC, ADIFF, ANEU, TROPHS, BMP #### [address] [address] #### GFR #### [address] [address] Chloride [Moles/Vol] 105 mmol/L Normal 98-107 [facility] ([place]) Comment on above: Performed By: #### C BC, ADIFF, ANEU, TROPHS, BMP #### [address] [address] #### GFR #### [address] [address] CO2 [Moles/Vol] 24 mmol/L Normal 22-29 [facility] ([place]) Comment on above: Performed By: #### C BC, ADIFF, ANEU, TROPHS, BMP #### [place] [address] #### GFR #### [address] [address] Creatinine [Mass/Vol] 0.95 mg/dL Normal 0.55-1.02 [facility] ([place]) Comment on above: Performed By: #### C BC, ADIFF, ANEU, TROPHS, BMP #### [address] [address] #### GFR #### [address] [address] Electrolyte Balance 12.0 mEq/L Normal [facility] ([place]) Comment on above: Performed By: #### C BC, ADIFF, ANEU, TROPHS, BMP #### [address] [address] #### GFR #### [address] [address] Glucose [Mass/Vol] 91 mg/dL Normal 70-105 [facility] ([place]) Comment on above: Performed By: #### C BC, ADIFF, ANEU, TROPHS, BMP #### [address] [address] #### GFR #### [address] [address] Potassium [Moles/Vol] 4.2 mmol/L Normal 3.5-5.1 [facility] ([place]) Comment on above: Performed By: #### C BC, ADIFF, ANEU, TROPHS, BMP #### [address] [address] #### GFR #### [address] [address] Sodium [Moles/Vol] 141 mmol/L Normal 136-145 [facility] ([place]) Comment on above: Performed By: #### C BC, ADIFF, ANEU, TROPHS, BMP #### [address] [address] #### GFR #### [address] [address] Urea nitrogen [Mass/Vol] 16 mg/dL Normal 7-18 [facility] ([place]) Comment on above: Performed By: #### C BC, ADIFF, ANEU, TROPHS, BMP #### [address] [address] #### GFR #### [address] [address] Urea nitrogen/Creatinine [Mass ratio] 17 ratio Normal 7-27 [facility] ([place]) Comment on above: Performed By: #### C BC, ADIFF, ANEU, TROPHS, BMP #### [place] [address] #### GFR #### [address] [address] CBCon 10-11-2020 Erythrocyte distribution width (RBC) [Ratio] 15.1 % High 11.5-14.5 [facility] ([place]) Comment on above: Performed By: #### C BC, ADIFF, ANEU, TROPHS, BMP #### [place] [address] #### GFR #### [place] [address] Hematocrit (Bld) [Volume fraction] 41.8 % Normal 37.0-47.0 [facility] ([place]) Comment on above: Performed By: #### C BC, ADIFF, ANEU, TROPHS, BMP #### [place] [address] #### GFR #### [place] [address] Hemoglobin (Bld) [Mass/Vol] 13.9 G/dL Normal 12.0-16.0 [facility] ([place]) Comment on above: Performed By: #### C BC, ADIFF, ANEU, TROPHS, BMP #### [place] [address] #### GFR #### [place] [address] MCH (RBC) [Entitic mass] 32.9 pg High 27.0-31.2 [facility] ([place]) Comment on above: Performed By: #### C BC, ADIFF, ANEU, TROPHS, BMP #### [place] [address] #### GFR #### [place] [address] MCHC (RBC) [Mass/Vol] 33.2 G/dL Normal 33.0-37.0 [facility] ([place]) Comment on above: Performed By: #### C BC, ADIFF, ANEU, TROPHS, BMP #### [place] [address] #### GFR #### [address] [address] MCV (RBC) [Entitic vol] 99.1 fL High 80.0-94.0 [facility] ([place]) Comment on above: Performed By: #### C BC, ADIFF, ANEU, TROPHS, BMP #### [place] [address] #### GFR #### [place] [address] Platelet mean volume (Bld) [Entitic vol] 7.7 fL Normal 7.4-10.4 [facility] ([place]) Comment on above: Performed By: #### C BC, ADIFF, ANEU, TROPHS, BMP #### [place] [address] #### GFR #### [place] [address] Platelets (Bld) [#/Vol] 206 10 3/mcL Normal 130-400 [facility] ([place]) Comment on above: Performed By: #### C BC, ADIFF, ANEU, TROPHS, BMP #### [place] [address] #### GFR #### [place] [address] RBC (Bld) [#/Vol] 4.21 10 6/mcL Normal 4.20-5.40 [facility] ([place]) Comment on above: Performed By: #### C BC, ADIFF, ANEU, TROPHS, BMP #### [place] [address] #### GFR #### [address] [address] WBC (Bld) [#/Vol] 6.80 10 3/mcL Normal 4.60-10.80 [facility] ([place]) Comment on above: Performed By: #### C BC, ADIFF, ANEU, TROPHS, BMP #### [place] [address] #### GFR #### [address] [address] CBC panel Auto (Bld)on 10-11 Erythrocyte distribution width (RBC) [Ratio] 14.3 % Normal 11.5-15.0 [facility] Comment on above: Order Comment: Speci men Type: BLOOD SPECIMEN Performed By: #### 5 8410-2 ####[facility]IA [id number] [place] [address] Hematocrit (Bld) [Volume fraction] 41.0 % Normal 36.0-46.0 [facility] Comment on above: Order Comment: Speci men Type: BLOOD SPECIMEN Performed By: #### 5 8410-2 ####[facility]ORYCLIA [id number] [place] [address] Hemoglobin (Bld) [Mass/Vol] 13.7 g/dL Normal 11.5-15.5 [facility] Comment on above: Order Comment: Speci men Type: BLOOD SPECIMEN Performed By: #### 5 8410-2 ####[facility]ORYCLIA [id number] [place] [address] MCH (RBC) [Entitic mass] 32.7 pg Normal 26.0-34.0 [facility] Comment on above: Order Comment: Speci men Type: BLOOD SPECIMEN Performed By: #### 5 8410-2 ####[facility]ORYCLIA [id number] [place] [address] MCHC (RBC) [Mass/Vol] 33.4 g/dL Normal 30.5-36.0 [facility] Comment on above: Order Comment: Speci men Type: BLOOD SPECIMEN Performed By: #### 5 8410-2 ####[facility]ORYCLIA [id number] [place] [address] MCV (RBC) [Entitic vol] 97.9 fL Normal 80.0-100.0 [facility] Comment on above: Order Comment: Speci men Type: BLOOD SPECIMEN Performed By: #### 5 8410-2 ####[facility]ORYCLIA [id number] [place] [address] Nucleated RBC (Bld) [#/Vol] 10*3/uL Normal <0.01 [facility] Comment on above: Order Comment: Speci men Type: BLOOD SPECIMEN Performed By: #### 5 8410-2 ####[facility]ORYCLIA [id number] [place] [address] Platelet mean volume (Bld) [Entitic vol] 9.7 fL Normal 9.0-12.7 [facility] Comment on above: Order Comment: Speci men Type: BLOOD SPECIMEN Performed By: #### 5 8410-2 ####[facility]ORYCLIA [id number] [place] [address] Platelets (Bld) [#/Vol] 217 10*3/uL Normal 150-400 [facility] Comment on above: Order Comment: Speci men Type: BLOOD SPECIMEN Performed By: #### 5 8410-2 ####[facility]ORYCLIA [id number] [place] [address] RBC (Bld) [#/Vol] 4.19 10*6/uL Normal 3.90-5.20 [facility] Comment on above: Order Comment: Speci men Type: BLOOD SPECIMEN Performed By: #### 5 8410-2 ####[facility]ORYCLIA [id number] [place] [address] WBC (Bld) [#/Vol] 6.88 10*3/uL Normal 3.70-11.00 [facility] Comment on above: Order Comment: Speci men Type: BLOOD SPECIMEN Performed By: #### 5 8410-2 ####[facility]ATORYCLIA [id number] [place] [address] CONSULTon 10-11-2020 CONSULT HNO ID: [id number] Author: Burak Espino Service: [facility] Author Type: Physician Type: Consults Filed: 10/11/2020 7:26 PM Note Text: Consult dictated. Normal [facility] CONSULT Normal [facility] CR-XR CHEST 1 VIEW IMPORTon 10-11-2020 CR-XR CHEST 1 VIEW IMPORT Images were obtained outside of [facility] Normal [facility] CT HEAD OR BRAIN W/O CONTRAS Ton 10-11-2020 CT HEAD OR BRAIN W/O CONTRAST ORIGINAL CT HEAD OR BRAIN W/O CONTRAST This exam was performed according to our departmental dose optimization program, and includes the following measures where applicable: automated exposure control, adjustment of the mAs and/or kVp according to patient size and/or exam, and an iterative reconstruction algorithm. CLINICAL STATEMENT: headache, htn. COMPARISON: None FINDINGS: There is no acute intracranial hemorrhage. There are multiple bilateral areas of encephalomalacia involving cerebral hemispheres and the RIGHT cerebellum. Mild generalized brain atrophy is present with prominence of ventricles and cortical sulci. No intracranial mass is detected. No mass effect. There is a 6 mm in diameter rounded density of slightly greater attenuation in the brain between the frontal lobes in the area of the anterior communicating artery. This causes no mass effect. There is no abnormal extra-axial fluid collection. Calvarium is intact. The paranasal sinuses and mastoid air cells are well aerated. IMPRESSION: No acute intracranial abnormality. Multiple bilateral areas of cerebral encephalomalacia and RIGHT cerebellar encephalomalacia consistent with remote infarcts. Mild brain atrophy. 6 mm rounded density in the region of the anterior communicating artery. This is suspicious for an aneurysm. Correlation with prior imaging if available, or follow-up with CT angiography of the head should be considered. Interpreted By: Logan Garcia MD Preliminary Report By: Logan Garcia MD Electronically Signed By: Logan Garcia MD Dictated Date: 10/11/2020 3:46:52 AM Prelim Date: 10/11/2020 3:46:52 AM Sign Date: 10/11/2020 3:54:15 AM Ordering Provider:Pepe Alvarez [facility] ([place]) CT-CT HEAD OR BRAIN W/O CONT RAST IMPORTon 10-11-2020 CT-CT HEAD OR BRAIN W/O CONTRAST IMPORT Images were obtained outside of [facility] Normal [facility] Comprehensive metabolic 2000 panelon 10-11-2020 Albumin [Mass/Vol] 4.1 g/dL Normal 3.9-4.9 [facility] Comment on above: Order Comment: Speci men Type: BLOOD SPECIMEN Performed By: #### 1 23-9, 16244-5, 2776- ####[facility]ORYCLIA [id number] [place] [address] ALP [Catalytic activity/Vol] 56 U/L Normal 34-123 [facility] Comment on above: Order Comment: Speci men Type: BLOOD SPECIMEN Performed By: #### 1 9122-9, , 2776-08 ####[facility]ORYCLIA [id number] [place] [address] ALT With P-5'-P [Catalytic activity/Vol] 15 U/L Normal 7-38 [facility] Comment on above: Order Comment: Speci men Type: BLOOD SPECIMEN Performed By: #### 1 9122-9, , 2776-08 ####[facility]ORYCLIA [id number] [place] [address] Anion gap [Moles/Vol] 10 mmol/L Normal 9-18 [facility] Comment on above: Order Comment: Speci men Type: BLOOD SPECIMEN Performed By: #### 1 9122-9, , 2776-08 ####[facility]ORYCLIA [id number] [place] [address] AST With P-5'-P [Catalytic activity/Vol] 21 U/L Normal 13-35 [facility] Comment on above: Order Comment: Speci men Type: BLOOD SPECIMEN Performed By: #### 1 9122-9, , 2776-08 ####[facility]ORYCLIA [id number] [place] [address] Bilirubin [Mass/Vol] 0.9 mg/dL Normal 0.2-1.3 [facility] Comment on above: Order Comment: Speci men Type: BLOOD SPECIMEN Performed By: #### 1 9122-9, 32360-0, 2776- ####[facility]ORYCLIA [id number] [place] [address] Calcium [Mass/Vol] 9.3 mg/dL Normal 8.5-10.2 [facility] Comment on above: Order Comment: Speci men Type: BLOOD SPECIMEN Performed By: #### 1 9123-9, 71674-7, 2776- ####[facility]ORYCLIA [id number] [place] [address] Chloride [Moles/Vol] 107 mmol/L High 97-105 [facility] Comment on above: Order Comment: Speci men Type: BLOOD SPECIMEN Performed By: #### 1 9123-9, 31984-2, 2776- ####[facility]ORYCLIA [id number] [place] [address] CO2 [Moles/Vol] 23 mmol/L Normal 22-30 [facility] Comment on above: Order Comment: Speci men Type: BLOOD SPECIMEN Performed By: #### 1 9123-9, 53379-7, 2776- ####[facility]ORYCLIA [id number] [place] [address] Creatinine [Mass/Vol] 0.81 mg/dL Normal 0.58-0.96 [facility] Comment on above: Order Comment: Speci men Type: BLOOD SPECIMEN Performed By: #### 1 9123-9, 33811-7, 2776-08 ####[facility]ORYCLIA [id number] [place] [address] GFR/1.73 sq M.predicted MDRD (S/P/Bld) [Vol rate/Area] mL/min/{1.73_m2} Normal [facility] Comment on above: Order Comment: Speci men Type: BLOOD SPECIMEN Result Comment: >60e GFR (Estimated GFR) Units of measure: mL/min/1.73 meters squaredeGFR is derived from the reexpressed MDRD Study equation using the following parameters: serum creatinine, age, gender and race. The creatinine assay has been calibrated to be traceable to IDMS. An eGFR <60 mL/min/1.73m2 for >3 months is consistent with chronic kidney disease. Refer to KDOQI guidelines for clinical interpretation. In patients with unstable renal function, e.g. those with acute kidney injury, the eGFR may not accurately reflect actual GFR. Performed By: #### 1 9123-9, 32063-8, 2776-08 ####[facility]ATORYCLIA [id number] [place] [address] Glucose [Mass/Vol] 92 mg/dL Normal 74-99 [facility] Comment on above: Order Comment: Speci men Type: BLOOD SPECIMEN Result Comment: The [place] Diabetes [employer] (ADA) provides guidance for cutoff values for fasting glucose and random glucose. The ADA defines fasting as no caloric intake for at least 8 hours. Fasting plasma glucose results between 100 to 125 mg/dL indicate increased risk for diabetes (prediabetes).Fasting plasma glucose results greater than or equal to 126 mg/dL meet the criteria for diagnosis of diabetes. In the absence of unequivocal hyperglycemia, results should be confirmed by repeat testing. In a patient with classic symptoms of hyperglycemia or hyperglycemic crisis, random plasma glucose results greater than or equal to 200 mg/dL meet the criteria for diagnosis of diabetes.Reference: Standards of Medical Care in Diabetes 2016, [place] [employer]. Diabetes Care. 2016.39(Suppl 1). Performed By: #### 1 9123-9, , 2776-08 ####[facility]ATORYCLIA [id number] [place] [address] Potassium [Moles/Vol] 4.1 mmol/L Normal 3.7-5.1 [facility] Comment on above: Order Comment: Speci men Type: BLOOD SPECIMEN Performed By: #### 1 9123-9, , 2776-08 ####[facility]ORYCLIA [id number] [place] [address] Protein [Mass/Vol] 6.2 g/dL Low 6.3-8.0 [facility] Comment on above: Order Comment: Speci men Type: BLOOD SPECIMEN Performed By: #### 1 9123-9, , 2776-08 ####[facility]ATORYCLIA [id number] [place] [address] Sodium [Moles/Vol] 140 mmol/L Normal 136-144 [facility] Comment on above: Order Comment: Speci men Type: BLOOD SPECIMEN Performed By: #### 1 9, 32010-0, 2777-1 ####[facility]ATORYCLIA [id number] [place] [address] Urea nitrogen [Mass/Vol] 12 mg/dL Normal - [facility] Comment on above: Order Comment: Speci men Type: BLOOD SPECIMEN Performed By: #### 1 9123-9, 27227-1, 2777-1 ####[facility]ORYCLIA [id number] [place] [address] ED NOTEon 10-11-2020 ED NOTE HNO ID: [id number] Author: Maylin PelletierRn) PRAVIN Monroy Service: Emergency Medicine Author Type: Registered Nurse Type: ED Notes Filed: 10/11/2020 8:57 AM Note Text: Dr. Acosta notified pt is unable to have MRA Normal [facility] ED NOTE Normal [facility] ED NOTE HNO ID: [id number] Author: Maylin PelletierRn) PRAVIN Monroy Service: Emergency Medicine Author Type: Registered Nurse Type: ED Notes Filed: 10/11/2020 8:40 AM Note Text: Report called to PRAVIN Whitten. Bed ready. Normal [facility] ED NOTE HNO ID: [id number] Author: Maylin PelletierRn) PRAVIN Monroy Service: Emergency Medicine Author Type: Registered Nurse Type: ED Notes Filed: 10/11/2020 8:36 AM Note Text: Pt assisted on and off bedpan. Pericare provided Normal [facility] ED NOTE Normal [facility] ED NOTE HNO ID: [id number] Author: Malik PelletierRn) PRAVIN Christine Service: ? Author Type: Registered Nurse Type: ED Notes Filed: 10/11/2020 6:07 AM Note Text: Bed: 34-ED Expected date: Expected time: Means of arrival: Comments: [place] headache Normal [facility] ED PROV NOTEon 10-11-2020 ED PROV NOTE Normal [facility] HISTORY PHYSICALon HISTORY PHYSICAL Normal [facility] HOSPon 10-11-2020 HOSP Normal [facility] Magnesium SerPl-mCncon 10-11 Magnesium [Mass/Vol] 1.8 mg/dL Normal 1.7-2.3 [facility] Comment on above: Order Comment: Speci men Type: BLOOD SPECIMEN Performed By: #### 1 9123-9, 23510-1, 2777-1 ####[facility]ATORYCLIA [id number] [place] [address] PT panel Coag (PPP)on 2020 INR Coag (PPP) [Relative time] 1.6 {INR} High 0.9-1.3 [facility] Comment on above: Order Comment: Speci men Type: BLOOD SPECIMEN Result Comment: Nicolasa min K Antagonist (VKA) Therapeutic Range: INR 2 to 3 (Target INR of 2.5)Note: For patients treated with VKA drugs, such as warfarin, the [place] [employer] 2012 Guideline recommends a therapeutic INR range of 2 to 3 (target INR of 2.5). This recommendation includes high-risk patients with antiphospholipid syndrome with previous arterial or venous thromboembolism, current-generation mechanical or bioprosthetic aortic heart valve replacement.Note: Patients with mechanical aortic valve replacement and additional risk factors for thromboembolic events (atrial fibrillation, previous thromboembolism, LV dysfunction, hypercoagulable conditions) or an older generation mechanical AVR (i.e., ball in-Cage) or any mechanical MVR should have a INR therapeutic range of 2.5 to 3.5 (target INR of 3).Teresa GH, et al. Chest 2012, 141:7S-47SNishlinda RA, et al. [facility] 2017, 70: 252-289 Performed By: #### 1 4979-9, 39752-2 ####[facility]ATORYCLIA [id number] [place] [address] PT Coag (PPP) [Time] 15.9 s High 9.7-13.0 [facility] Comment on above: Order Comment: Speci men Type: BLOOD SPECIMEN Performed By: #### 1 4979-9, 84699-6 ####[facility]ORYCLIA [id number] [place] [address] Phosphate SerPl-mCncon 03-07 -2021 Phosphate [Mass/Vol] 3.1 mg/dL Normal 2.7-4.8 [facility] Comment on above: Order Comment: Speci men Type: BLOOD SPECIMEN Performed By: #### 1 9123-9, 26046-7, 2777-1 ####[facility]ORYCLIA [id number] [place] [address] TROPHSon 10-11-2020 Troponin I High Sensitivity 14.8 ng/L Normal 0.0-51.4 [facility] ([place]) Comment on above: Performed By: #### C BC, ADIFF, ANEU, TROPHS, BMP #### [address] [address] #### GFR #### [address] [address] XR CHEST 1 VIEWon 10-11-2020 XR CHEST 1 VIEW ORIGINAL XR CHEST 1 VIEW CLINICAL STATEMENT: chest pain. COMPARISON: None FINDINGS: Patient has had sternotomy. LEFT subclavian pacemaker is in place. The heart size is normal. There is no lung infiltrate or pulmonary edema. No pleural fluid or pneumothorax is present. The skeletal structures are unremarkable. IMPRESSION: No acute radiographic abnormality of the chest. Pacemaker in place. Interpreted By: Logan Garcia MD Preliminary Report By: Logan Garcia MD Electronically Signed By: Logan Garcia MD Dictated Date: 10/11/2020 3:29:56 AM Prelim Date: 10/11/2020 3:29:56 AM Sign Date: 10/11/2020 3:31:06 AM Ordering Provider:Pepe Jarvis [facility] ([place]) aPTT PPPon 10-11-2020 aPTT Coag (PPP) [Time] 80.9 s High 23.0-32.4 [facility] Comment on above: Order Comment: Speci men Type: BLOOD SPECIMEN Performed By: #### 1 4979-9 ####[facility]ORYCLIA [id number] [place] [address] aPTT Coag (PPP) [Time] 31.1 s Normal 23.0-32.4 [facility] Comment on above: Order Comment: Speci men Type: BLOOD SPECIMEN Performed By: #### 1 4979-9, 74719-1 ####[facility]ORYCLIA [id number] [place] [address] Office Visiton 02-23-2017 Documentation of current medications (procedure) Done Invalid Interpretation Code [facility] Work Phone: Tobacco use [facility] Current every day smoker Invali d Interpretation Code [facility] Work Phone: Culture, urine Bacteria identified Cx Nom (U) Escherichia coli [facility] Work Phone: Bacteria identified Cx Nom (U) Proteus mirabilis [facility] Work Phone: Laboratory - Microbiology an d Antimicrobial susceptibility Bacteria identified Cx Nom (Bld) No growth in 5 days. [facility] Work Phone: Lower GI hemoglobin IA Ql (S tl) Stool Occult Blood (SAKINA) Positive [facility] Work Phone: No Panel Information Influenza Types A,B Direct FA (SAKINA) [facility] Work Phone: Vital Signs Date Time Vital Sign Value Performing Clinician Le kennedy 03-24-2025 12:39-0400 Body mass index (BMI) [Ratio] 31.9 kg/m2 Louis Dobbs MD Work Phone: [facility] 03-24-2025 12:39-0400 Body weight 84.3 kg Louis Dobbs MD Work Phone: [facility] 03-24-2025 12:39-0400 Diastolic blood pressure 70 mm[Hg] Louis Dobbs MD Work Phone: [facility] 03-24-2025 12:39-0400 Heart rate 80 /min Louis Dobbs MD Work Phone: [facility] 03-24-2025 12:39-0400 Respiratory rate 16 /min Louis Dobbs MD Work Phone: [facility] 03-24-2025 12:39-0400 Systolic blood pressure 110 mm[Hg] Louis Dobbs MD Work Phone: [facility] 02-27-2025 16:12-0400 Body height 160.[address] Louis Dobbs MD Work Phone: [facility] 02-27-2025 16:12-0400 Body weight 85.[address] Louis Dobbs MD Work Phone: [facility] 02-04-2025 12:42-0400 Body mass index (BMI) [Ratio] 32.51 kg/m2 Judy Haywood HYBRID TESTER.CONTRACT GRAPHIC DESIGNER Work Phone: [facility] 02-04-2025 12:42-0400 Body weight 85.9 kg Judy Haywood HYBRID TESTER.CONTRACT GRAPHIC DESIGNER Work Phone: [facility] 02-04-2025 12:42-0400 Diastolic blood pressure 68 mm[Hg] Judy Haywood HYBRID TESTER.CONTRACT GRAPHIC DESIGNER Work Phone: [facility] 02-04-2025 12:42-0400 Heart rate 92 /min Judy Haywood HYBRID TESTER.CONTRACT GRAPHIC DESIGNER Work Phone: [facility] 02-04-2025 12:42-0400 Respiratory rate 14 /min Judy Haywood HYBRID TESTER.CONTRACT GRAPHIC DESIGNER Work Phone: [facility] 02-04-2025 12:42-0400 SaO2% (BldA) [Mass fraction] 98 % Judy Haywood HYBRID TESTER.CONTRACT GRAPHIC DESIGNER Work Phone: [facility] 02-04-2025 12:42-0400 Systolic blood pressure 110 mm[Hg] Judy Haywood HYBRID TESTER.CONTRACT GRAPHIC DESIGNER Work Phone: [facility] 01-13-2025 17:02-0400 Diastolic blood pressure 81 mm[Hg] Dr. Louis Dobbs MD Work Phone: [facility] 01-13-2025 17:02-0400 Systolic blood pressure 140 mm[Hg] Dr. Louis Dobbs MD Work Phone: 8(629)777-337380 [place] [address] 01-13-2025 17:01-0400 Body temperature 97.6 [degF] Dr. Louis Dobbs MD Work Phone: 1(943)493-660741 [place] [address] 01-13-2025 17:01-0400 Heart rate 58 /min Dr. Louis Dobbs MD Work Phone: 7(812)212-282941 [place] [address] 01-13-2025 17:01-0400 Respiratory rate 18 /min Dr. Louis Dobbs MD Work Phone: 6(239)315-077641 [place] [address] 01-13-2025 17:01-0400 SaO2% (BldA) [Mass fraction] 97 % Dr. Louis Dobbs MD Work Phone: 8(503)392-361441 [place] [address] 01-13-2025 13:42-0400 Body height 157.[address] Louis Dobbs MD Work Phone: 1(809)160-957141 [place] [address] 01-13-2025 13:42-0400 Body mass index (BMI) [Ratio] 35.6 kg/m2 Dr. Louis Dobbs MD Work Phone: 9(916)732-629141 [place] [address] 01-13-2025 13:42-0400 Body weight 88.[address] Louis Dobbs MD Work Phone: 2(607)971-975041 [place] [address] 12-16-2024 12:46-0400 Body mass index (BMI) [Ratio] 34.4 kg/m2 Angel Pickett HYBRID TESTER.MAINTENANCE ELECTRICIAN Work Phone: [facility] 12-16-2024 12:46-0400 Body weight 90.9 kg Angel Pickett HYBRID TESTER.MAINTENANCE ELECTRICIAN Work Phone: [phone])[phone] [place] [address] 12-16-2024 12:46-0400 Diastolic blood pressure 72 mm[Hg] Angel Pickett HYBRID TESTER.MAINTENANCE ELECTRICIAN Work Phone: [facility] 12-16-2024 12:46-0400 Heart rate 74 /min Angel Pickett HYBRID TESTER.MAINTENANCE ELECTRICIAN Work Phone: [facility] 12-16-2024 12:46-0400 Respiratory rate 16 /min Angel Pickett HYBRID TESTER.MAINTENANCE ELECTRICIAN Work Phone: [facility] 12-16-2024 12:46-0400 Systolic blood pressure 106 mm[Hg] Angel Pickett HYBRID TESTER.MAINTENANCE ELECTRICIAN Work Phone: [facility] 12-09-2024 14:30-0400 Body mass index (BMI) [Ratio] 35 kg/m2 Judy Joe HYBRID TESTER.CONTRACT GRAPHIC DESIGNER Work Phone: [facility] 12-09-2024 14:30-0400 Body weight 92.5 kg Judy Joe HYBRID TESTER.CONTRACT GRAPHIC DESIGNER Work Phone: [facility] 12-09-2024 14:30-0400 Diastolic blood pressure 86 mm[Hg] Judy Joe HYBRID TESTER.CONTRACT GRAPHIC DESIGNER Work Phone: [facility] 12-09-2024 14:30-0400 Heart rate 90 /min Judy Joe HYBRID TESTER.CONTRACT GRAPHIC DESIGNER Work Phone: [facility] 12-09-2024 14:30-0400 Respiratory rate 14 /min Judy Joe HYBRID TESTER.CONTRACT GRAPHIC DESIGNER Work Phone: [facility] 12-09-2024 14:30-0400 Systolic blood pressure 124 mm[Hg] Judy Joe HYBRID TESTER.CONTRACT GRAPHIC DESIGNER Work Phone: [facility] 10-11-2024 07:41-0500 Body height 157.[address] Louis Dobbs MD Work Phone: [facility] 10-11-2024 07:41-0500 Body mass index (BMI) [Ratio] 38.2 kg/m2 Dr. Louis Dobbs MD Work Phone: [facility] 10-11-2024 07:41-0500 Body weight 94.[address] Louis Dobbs MD Work Phone: [facility] 10-11-2024 07:41-0500 Diastolic blood pressure 84 mm[Hg] Dr. Louis Dobbs MD Work Phone: [facility] 10-11-2024 07:41-0500 Heart rate 97 /min Dr. Louis Dobbs MD Work Phone: [facility] 10-11-2024 07:41-0500 Respiratory rate 22 /min Dr. Louis Dobbs MD Work Phone: [facility] 10-11-2024 07:41-0500 SaO2% (BldA) [Mass fraction] 95 % Dr. Louis Dobbs MD Work Phone: [facility] 10-11-2024 07:41-0500 Systolic blood pressure 127 mm[Hg] Dr. Louis Dobbs MD Work Phone: [facility] 09-26-2024 12:00-0500 Diastolic blood pressure 78 mm[Hg] Shavon Valentin MD Work Phone: [facility] 09-26-2024 12:00-0500 Heart rate 64 /min Shavon Valentin MD Work Phone: [facility] 09-26-2024 12:00-0500 Systolic blood pressure 135 mm[Hg] Shavon Valentin MD Work Phone: [facility] 09-26-2024 11:51-0500 Body height 160 cm Shavon Valentin MD Work Phone: [facility] 06-17-2024 09:22-0500 Body height 162.6 cm Judy Haywood APRN.CONTRACT GRAPHIC DESIGNER Work Phone: [facility] 06-17-2024 09:22-0500 Body mass index (BMI) [Ratio] 35.76 kg/m2 Judy Haywood HYBRID TESTER.CONTRACT GRAPHIC DESIGNER Work Phone: [facility] 06-17-2024 09:22-0500 Body weight 94.5 kg Judy Haywood APRN.CONTRACT GRAPHIC DESIGNER Work Phone: [facility] 06-17-2024 09:22-0500 Diastolic blood pressure 68 mm[Hg] Judy Haywood APRN.CONTRACT GRAPHIC DESIGNER Work Phone: [facility] 06-17-2024 09:22-0500 Heart rate 83 /min Judy Joe HYBRID TESTER.CONTRACT GRAPHIC DESIGNER Work Phone: [facility] 06-17-2024 09:22-0500 Respiratory rate 18 /min Judy Joe HYBRID TESTER.CONTRACT GRAPHIC DESIGNER Work Phone: [facility] 06-17-2024 09:22-0500 SaO2% (BldA) [Mass fraction] 93 % Judy Joe HYBRID TESTER.CONTRACT GRAPHIC DESIGNER Work Phone: [facility] 06-17-2024 09:22-0500 Systolic blood pressure 110 mm[Hg] Judy Joe HYBRID TESTER.CONTRACT GRAPHIC DESIGNER Work Phone: [facility] 07-25-2023 14:00-0500 Body temperature 98 [degF] Dr. Louis Dobbs Work Phone: [facility] 07-25-2023 14:00-0500 Diastolic blood pressure 57 mm[Hg] Dr. Louis Dobbs Work Phone: 6(228)631-384980 [place] [address] 07-25-2023 14:00-0500 Heart rate 91 /min Dr. Louis Dobbs Work Phone: [facility] 07-25-2023 14:00-0500 Respiratory rate 19 /min Dr. Louis Dobbs Work Phone: [facility] 07-25-2023 14:00-0500 SaO2% (BldA) [Mass fraction] 96 % Dr. Louis Dobbs Work Phone: [facility] 07-25-2023 14:00-0500 Systolic blood pressure 131 mm[Hg] Dr. Louis Dobbs Work Phone: 7(272)678-619580 [place] [address] 07-24-2023 15:33-0500 Body height 157.[address] Louis Dobbs Work Phone: 0(469)431-527980 [place] [address] 07-24-2023 15:33-0500 Body mass index (BMI) [Ratio] 33 kg/m2 Dr. Louis Dobbs Work Phone: 6(099)720-768980 [place] [address] 07-24-2023 15:33-0500 Body weight 82.[address] Louis Dobbs Work Phone: 0(823)153-596441 [place] [address] 07-24-2023 14:22-0500 Diastolic blood pressure 80 mm[Hg] Dr. Louis Dobbs Work Phone: 5(669)577-905841 [place] [address] 07-24-2023 14:22-0500 Heart rate 84 /min Dr. Louis Dobbs Work Phone: 1(300)039-895141 [place] [address] 07-24-2023 14:22-0500 Respiratory rate 22 /min Dr. Louis Dobbs Work Phone: 9(774)956-400941 [place] [address] 07-24-2023 14:22-0500 SaO2% (BldA) [Mass fraction] 97 % Dr. Louis Dobbs Work Phone: 6(648)828-565341 [place] [address] 07-24-2023 14:22-0500 Systolic blood pressure 136 mm[Hg] Dr. Louis Dobbs Work Phone: 7(693)232-885041 [place] [address] 07-24-2023 12:12-0500 Body height 157.[address] Louis Dobbs Work Phone: 3(557)087-081441 [place] [address] 07-24-2023 12:12-0500 Body mass index (BMI) [Ratio] 34.7 kg/m2 Dr. Louis Dobbs Work Phone: 9(718)225-390341 [place] [address] 07-24-2023 12:12-0500 Body temperature 98.3 [degF] Dr. Louis Dobbs Work Phone: 7(517)753-320941 [place] [address] 07-24-2023 12:12-0500 Body weight 86.[address] Louis Dobbs Work Phone: 5(813)395-225341 [place] [address] 06-25-2023 05:17-0500 Body height 157.48 cm [facility] 06-25-2023 05:17-0500 Body mass index (BMI) [Ratio] 32.9 kg/m2 [facility] 06-25-2023 05:17-0500 Body temperature 97.8 [degF] [facility] 06-25-2023 05:17-0500 Body weight 81.64 kg [facility] 06-25-2023 05:17-0500 Diastolic blood pressure 98 mm[Hg] [facility] 06-25-2023 05:17-0500 Heart rate 94 /min [facility] 06-25-2023 05:17-0500 Respiratory rate 16 /min [facility] 06-25-2023 05:17-0500 SaO2% (BldA) [Mass fraction] 98 % [facility] 06-25-2023 05:17-0500 Systolic blood pressure 159 mm[Hg] [facility] 12-08-2022 13:19-0400 Body height 162.6 cm Silvia Yates APRN.CONTRACT GRAPHIC DESIGNER Work Phone: [facility] 12-08-2022 13:19-0400 Body weight 81.65 kg Silvia Yates APRN.CONTRACT GRAPHIC DESIGNER Work Phone: [facility] 12-08-2022 13:19-0400 Diastolic blood pressure 82 mm[Hg] Silvia Yates APRN.CONTRACT GRAPHIC DESIGNER Work Phone: [facility] 12-08-2022 13:19-0400 Systolic blood pressure 124 mm[Hg] Silvia Yates APRN.CONTRACT GRAPHIC DESIGNER Work Phone: [facility] 10-14-2022 09:53-0500 Body height 160.[address] Louis Dobbs Work Phone: [facility] 10-14-2022 09:53-0500 Body mass index (BMI) [Ratio] 32.9 kg/m2 Dr. Louis Dobbs Work Phone: [facility] 10-14-2022 09:53-0500 Body weight 84.[address] Louis Dobbs Work Phone: [facility] 10-14-2022 09:53-0500 Diastolic blood pressure 71 mm[Hg] Dr. Louis Dobbs Work Phone: [facility] 10-14-2022 09:53-0500 Heart rate 67 /min Dr. Louis Dobbs Work Phone: [facility] 10-14-2022 09:53-0500 Respiratory rate 18 /min Dr. Louis Dobbs Work Phone: [facility] 10-14-2022 09:53-0500 SaO2% (BldA) [Mass fraction] 99 % Dr. Louis Dobbs Work Phone: [facility] 10-14-2022 09:53-0500 Systolic blood pressure 129 mm[Hg] Dr. Louis Dobbs Work Phone: [facility] 06-11-2022 07:45-0400 Diastolic blood pressure 76 mm[Hg] Dr. Louis Dobbs Work Phone: [facility] Work Phone: 06-11-2022 07:45-0400 Heart rate 69 /min Dr. Louis Dobbs Work Phone: [facility] Work Phone: 06-11-2022 07:45-0400 Respiratory rate 12 /min Dr. Louis Dobbs Work Phone: [facility] Work Phone: 06-11-2022 07:45-0400 SaO2% (BldA) [Mass fraction] 97 % Dr. Louis Dobbs Work Phone: [facility] Work Phone: 06-11-2022 07:45-0400 Systolic blood pressure 129 mm[Hg] Dr. Louis Dobbs Work Phone: [facility] Work Phone: 06-10-2022 15:54-0400 Body height 160.[address] Louis Dobbs Work Phone: [facility] Work Phone: 11-04-2022 15:54-0400 Body mass index (BMI) [Ratio] 28.7 kg/m2 Dr. Louis Dobbs Work Phone: [facility] Work Phone: 06-10-2022 15:54-0400 Body temperature 98.1 [degF] Dr. Louis Dobbs Work Phone: [facility] Work Phone: 06-10-2022 15:54-0400 Body weight 73.[address] Louis Dobbs Work Phone: [facility] Work Phone: 06-08-2022 21:14-0400 Diastolic blood pressure 66 mm[Hg] Dr. Louis Dobbs Work Phone: [facility] Work Phone: 06-08-2022 21:14-0400 Systolic blood pressure 146 mm[Hg] Dr. Louis Dobbs Work Phone: [facility] Work Phone: 06-08-2022 20:00-0400 Respiratory rate 20 /min Dr. Louis Dobbs Work Phone: [facility] Work Phone: 06-08-2022 16:05-0400 Body height 160.[address] Louis Dobbs Work Phone: [facility] Work Phone: 06-08-2022 16:05-0400 Body mass index (BMI) [Ratio] 28.3 kg/m2 Dr. Louis Dobbs Work Phone: [facility] Work Phone: 06-08-2022 16:05-0400 Body temperature 98.2 [degF] Dr. Louis Dobbs Work Phone: [facility] Work Phone: 06-08-2022 16:05-0400 Body weight 72.[address] Louis Dobbs Work Phone: [facility] Work Phone: 06-08-2022 16:05-0400 Heart rate 102 /min Dr. Louis Dobbs Work Phone: [facility] Work Phone: 06-08-2022 16:05-0400 SaO2% (BldA) [Mass fraction] 97 % Dr. Louis Dobbs Work Phone: [facility] Work Phone: 05-30-2022 13:14-0400 Heart rate 107 /min Dr. Louis Dobbs Work Phone: [facility] Work Phone: 05-30-2022 13:14-0400 Respiratory rate 26 /min Dr. Louis Dobbs Work Phone: [facility] Work Phone: 05-30-2022 13:14-0400 SaO2% (BldA) [Mass fraction] 100 % Dr. Louis Dobbs Work Phone: [facility] Work Phone: 05-30-2022 11:24-0400 Body height 157.[address] Louis Dobbs Work Phone: [facility] Work Phone: 05-30-2022 11:24-0400 Body mass index (BMI) [Ratio] 29.9 kg/m2 Dr. Louis Dobbs Work Phone: [facility] Work Phone: 05-30-2022 11:24-0400 Body temperature 97.7 [degF] Dr. Louis Dobbs Work Phone: [facility] Work Phone: 05-30-2022 11:24-0400 Body weight 74.[address] Louis Dobbs Work Phone: [facility] Work Phone: 05-30-2022 11:24-0400 Diastolic blood pressure 101 mm[Hg] Dr. Louis Dobbs Work Phone: [facility] Work Phone: 05-30-2022 11:24-0400 Systolic blood pressure 114 mm[Hg] Dr. Louis Dobbs Work Phone: [facility] Work Phone: 03-17-2022 08:42-0400 Body mass index (BMI) [Ratio] 30.5 kg/m2 Dr. Louis Dobbs Work Phone: [facility] Work Phone: 03-17-2022 08:42-0400 Diastolic blood pressure 80 mm[Hg] Dr. Louis Dobbs Work Phone: [facility] Work Phone: 03-17-2022 08:42-0400 Systolic blood pressure 114 mm[Hg] Dr. Louis Dobbs Work Phone: [facility] Work Phone: 03-17-2022 08:04-0400 Body temperature 97.8 [degF] Dr. Louis Dobbs Work Phone: [facility] Work Phone: 03-17-2022 08:04-0400 Body weight 75.[address] Louis Dobbs Work Phone: [facility] Work Phone: 03-17-2022 08:04-0400 Heart rate 76 /min Dr. Louis Dobbs Work Phone: [facility] Work Phone: 03-17-2022 08:04-0400 Respiratory rate 16 /min Dr. Louis Dobbs Work Phone: [facility] Work Phone: 03-17-2022 08:04-0400 SaO2% (BldA) [Mass fraction] 96 % Dr. Louis Dobbs Work Phone: [facility] Work Phone: 02-23-2022 14:04-0400 Body temperature 98.1 [degF] Dr. Louis Dobbs Work Phone: [facility] Work Phone: 02-23-2022 14:04-0400 Diastolic blood pressure 65 mm[Hg] Dr. Louis Dobbs Work Phone: [facility] Work Phone: 02-23-2022 14:04-0400 Heart rate 77 /min Dr. Louis Dobbs Work Phone: [facility] Work Phone: 02-23-2022 14:04-0400 Respiratory rate 18 /min Dr. Louis Dobbs Work Phone: [facility] Work Phone: 02-23-2022 14:04-0400 SaO2% (BldA) [Mass fraction] 98 % Dr. Louis Dobbs Work Phone: [facility] Work Phone: 02-23-2022 14:04-0400 Systolic blood pressure 137 mm[Hg] Dr. Louis Dobbs Work Phone: [facility] Work Phone: 02-23-2022 06:27-0400 Body weight 81.[address] Louis Dobbs Work Phone: [facility] Work Phone: 02-22-2022 08:19-0400 Body height [address] Louis Dobbs Work Phone: [facility] Work Phone: 02-22-2022 08:19-0400 Body mass index (BMI) [Ratio] 33.2 kg/m2 Dr. Louis Dobbs Work Phone: [facility] Work Phone: 02-19-2022 14:00-0400 Inhaled oxygen flow rate 2 L/min Dr. Louis Dobbs Work Phone: [facility] Work Phone: 02-16-2022 15:02-0400 Body temperature 95 [degF] Dr. Louis Dobbs Work Phone: [facility] Work Phone: 02-16-2022 15:02-0400 Diastolic blood pressure 60 mm[Hg] Dr. Louis Dobbs Work Phone: [facility] Work Phone: 02-16-2022 15:02-0400 Heart rate 63 /min Dr. Louis Dobbs Work Phone: [facility] Work Phone: 02-16-2022 15:02-0400 Respiratory rate 20 /min Dr. Louis Dobbs Work Phone: [facility] Work Phone: 02-16-2022 15:02-0400 SaO2% (BldA) [Mass fraction] 99 % Dr. Louis Dobbs Work Phone: [facility] Work Phone: 02-16-2022 15:02-0400 Systolic blood pressure 100 mm[Hg] Dr. Louis Dobbs Work Phone: [facility] Work Phone: 02-16-2022 14:47-0400 Inhaled oxygen flow rate 2 L/min Dr. Louis Dobbs Work Phone: [facility] Work Phone: 02-16-2022 12:48-0400 Body height 157.[address] Louis Dobbs Work Phone: [facility] Work Phone: 02-16-2022 12:48-0400 Body mass index (BMI) [Ratio] 33 kg/m2 Dr. Louis Dobbs Work Phone: [facility] Work Phone: 02-16-2022 12:48-0400 Body weight 81.[address] Louis Dobbs Work Phone: [facility] Work Phone: 12-20-2021 20:48-0400 Body temperature 97.4 [degF] Dr. Louis Dobbs Work Phone: [facility] Work Phone: 12-20-2021 20:48-0400 Diastolic blood pressure 77 mm[Hg] Dr. Louis Dobbs Work Phone: [facility] Work Phone: 12-20-2021 20:48-0400 Heart rate 81 /min Dr. Louis Dobbs Work Phone: [facility] Work Phone: 12-20-2021 20:48-0400 Respiratory rate 20 /min Dr. Louis Dobbs Work Phone: [facility] Work Phone: 12-20-2021 20:48-0400 SaO2% (BldA) [Mass fraction] 100 % Dr. Louis Dobbs Work Phone: [facility] Work Phone: 12-20-2021 20:48-0400 Systolic blood pressure 106 mm[Hg] Dr. Louis Dobbs Work Phone: [facility] Work Phone: 12-20-2021 06:00-0400 Body weight 78.[address] Louis Dobbs Work Phone: [facility] Work Phone: 12-17-2021 12:22-0400 Body height 157.[address] Louis Dobbs Work Phone: [facility] Work Phone: 12-15-2021 09:57-0400 Body temperature 98 [degF] Dr. Louis Dobbs Work Phone: [facility] Work Phone: 12-15-2021 09:57-0400 Diastolic blood pressure 68 mm[Hg] Dr. Louis Dobbs Work Phone: [facility] Work Phone: 12-15-2021 09:57-0400 Heart rate 76 /min Dr. Louis Dobbs Work Phone: [facility] Work Phone: 12-15-2021 09:57-0400 Respiratory rate 18 /min Dr. Louis Dobbs Work Phone: [facility] Work Phone: 12-15-2021 09:57-0400 SaO2% (BldA) [Mass fraction] 97 % Dr. Louis Dobbs Work Phone: [facility] Work Phone: 12-15-2021 09:57-0400 Systolic blood pressure 113 mm[Hg] Dr. Louis Dobbs Work Phone: [facility] Work Phone: 12-14-2021 17:13-0400 Body height 157.[address] Louis Dobbs Work Phone: [facility] Work Phone: 12-14-2021 17:13-0400 Body weight 67.[address] Louis Dobbs Work Phone: [facility] Work Phone: 12-14-2021 13:48-0400 Body mass index (BMI) [Ratio] 27.2 kg/m2 Dr. Louis Dobbs Work Phone: [facility] Work Phone: 12-14-2021 13:07-0400 Body temperature 98.1 [degF] Dr. Louis Dobbs Work Phone: [facility] Work Phone: 12-14-2021 13:07-0400 Diastolic blood pressure 57 mm[Hg] Dr. Louis Dobbs Work Phone: [facility] Work Phone: 12-14-2021 13:07-0400 Heart rate 83 /min Dr. Louis Dobbs Work Phone: [facility] Work Phone: 12-14-2021 13:07-0400 Respiratory rate 18 /min Dr. Louis Dobbs Work Phone: [facility] Work Phone: 12-14-2021 13:07-0400 SaO2% (BldA) [Mass fraction] 95 % Dr. Louis Dobbs Work Phone: [facility] Work Phone: 12-14-2021 13:07-0400 Systolic blood pressure 107 mm[Hg] Dr. Louis Dobbs Work Phone: [facility] Work Phone: 12-14-2021 10:13-0400 Body height 157.[address] Louis Dobbs Work Phone: [facility] Work Phone: 12-14-2021 10:13-0400 Body mass index (BMI) [Ratio] 31.6 kg/m2 Dr. Louis Dobbs Work Phone: [facility] Work Phone: 12-14-2021 10:13-0400 Body weight 78.[address] Louis Dobbs Work Phone: [facility] Work Phone: 12-06-2021 11:44-0400 Diastolic blood pressure 64 mm[Hg] Dr. Louis Dobbs Work Phone: [facility] Work Phone: 12-06-2021 11:44-0400 Heart rate 91 /min Dr. Louis Dobbs Work Phone: [facility] Work Phone: 12-06-2021 11:44-0400 Respiratory rate 16 /min Dr. Louis Dobbs Work Phone: [facility] Work Phone: 12-06-2021 11:44-0400 SaO2% (BldA) [Mass fraction] 98 % Dr. Louis Dobbs Work Phone: [facility] Work Phone: 12-06-2021 11:44-0400 Systolic blood pressure 91 mm[Hg] Dr. Louis Dobbs Work Phone: [facility] Work Phone: 12-06-2021 09:50-0400 Body height 157.[address] Louis Dobbs Work Phone: [facility] Work Phone: 12-06-2021 09:50-0400 Body mass index (BMI) [Ratio] 33.8 kg/m2 Dr. Louis Dobbs Work Phone: [facility] Work Phone: 12-06-2021 09:50-0400 Body temperature 97 [degF] Dr. Louis Dobbs Work Phone: [facility] Work Phone: 12-06-2021 09:50-0400 Body weight 83.[address] Louis Dobbs Work Phone: [facility] Work Phone: 11-10-2021 11:59-0400 Respiratory rate 22 /min Dr. Louis Dobbs Work Phone: [facility] Work Phone: 11-10-2021 10:40-0400 Body height 157.[address] Louis Dobbs Work Phone: [facility] Work Phone: 11-10-2021 10:40-0400 Body mass index (BMI) [Ratio] 33 kg/m2 Dr. Louis Dobbs Work Phone: [facility] Work Phone: 11-10-2021 10:40-0400 Body temperature 97.9 [degF] Dr. Louis Dobbs Work Phone: [facility] Work Phone: 11-10-2021 10:40-0400 Body weight [address] Louis Dobbs Work Phone: [facility] Work Phone: 11-10-2021 10:40-0400 Diastolic blood pressure 77 mm[Hg] Dr. Louis Dobbs Work Phone: [facility] Work Phone: 11-10-2021 10:40-0400 Heart rate 96 /min Dr. Louis Dobbs Work Phone: [facility] Work Phone: 11-10-2021 10:40-0400 SaO2% (BldA) [Mass fraction] 98 % Dr. Louis Dobbs Work Phone: [facility] Work Phone: 11-10-2021 10:40-0400 Systolic blood pressure 120 mm[Hg] Dr. Louis Dobbs Work Phone: [facility] Work Phone: 11-02-2021 12:57-0400 Body mass index (BMI) [Ratio] 33.8 kg/m2 Dr. Louis Dobbs Work Phone: [facility] Work Phone: 11-02-2021 12:57-0400 Body weight 83.[address] Louis Dobbs Work Phone: [facility] Work Phone: 11-02-2021 12:57-0400 Diastolic blood pressure 42 mm[Hg] Dr. Louis Dobbs Work Phone: [facility] Work Phone: 11-02-2021 12:57-0400 Heart rate 81 /min Dr. Louis Dobbs Work Phone: [facility] Work Phone: 11-02-2021 12:57-0400 Respiratory rate 18 /min Dr. Louis Dobbs Work Phone: [facility] Work Phone: 11-02-2021 12:57-0400 Systolic blood pressure 100 mm[Hg] Dr. Louis Dobbs Work Phone: [facility] Work Phone: 11-02-2021 12:57-0400 Body height 157.[address] Louis Dobbs Work Phone: [facility] Work Phone: 11-02-2021 12:57-0400 Body mass index (BMI) [Ratio] 33.8 kg/m2 Dr. Louis Dobbs Work Phone: [facility] Work Phone: 11-02-2021 12:57-0400 Body weight 83.[address] Louis Dobbs Work Phone: [facility] Work Phone: 11-02-2021 12:57-0400 Diastolic blood pressure 42 mm[Hg] Dr. Louis Dobbs Work Phone: [facility] Work Phone: 11-02-2021 12:57-0400 Heart rate 81 /min Dr. Louis Dobbs Work Phone: [facility] Work Phone: 11-02-2021 12:57-0400 Respiratory rate 18 /min Dr. Louis Dobbs Work Phone: [facility] Work Phone: 11-02-2021 12:57-0400 Systolic blood pressure 100 mm[Hg] Dr. Louis Dobbs Work Phone: [facility] Work Phone: 10-12-2021 13:19-0500 Body mass index (BMI) [Ratio] 33.5 kg/m2 Dr. Louis Dobbs Work Phone: [facility] Work Phone: 10-12-2021 13:19-0500 Body temperature 97.2 [degF] Dr. Louis Dobbs Work Phone: [facility] Work Phone: 10-12-2021 13:19-0500 Body weight [address] Louis Dobbs Work Phone: [facility] Work Phone: 10-12-2021 13:19-0500 Diastolic blood pressure 87 mm[Hg] Dr. Louis Dobbs Work Phone: [facility] Work Phone: 10-12-2021 13:19-0500 Heart rate 86 /min Dr. Louis Dobbs Work Phone: [facility] Work Phone: 10-12-2021 13:19-0500 Respiratory rate 15 /min Dr. Louis Dobbs Work Phone: [facility] Work Phone: 10-12-2021 13:19-0500 SaO2% (BldA) [Mass fraction] 96 % Dr. Louis Dobbs Work Phone: [facility] Work Phone: 10-12-2021 13:19-0500 Systolic blood pressure 166 mm[Hg] Dr. Louis Dobbs Work Phone: [facility] Work Phone: 07-22-2021 12:29-0500 Body weight 88.[address] Louis Dobbs Work Phone: [facility] Work Phone: 07-22-2021 12:29-0500 Diastolic blood pressure 60 mm[Hg] Dr. Louis Dobbs Work Phone: [facility] Work Phone: 07-22-2021 12:29-0500 Heart rate 76 /min Dr. Louis Dobbs Work Phone: [facility] Work Phone: 07-22-2021 12:29-0500 Respiratory rate 28 /min Dr. Louis Dobbs Work Phone: [facility] Work Phone: 07-22-2021 12:29-0500 SaO2% (BldA) [Mass fraction] 96 % Dr. Louis Dobbs Work Phone: [facility] Work Phone: 07-22-2021 12:29-0500 Systolic blood pressure 96 mm[Hg] Dr. Louis Dobbs Work Phone: [facility] Work Phone: 02-23-2017 14:23-0400 BMI (Body Mass Index) 33.65 kg/m2 [facility] Work Phone: 02-23-2017 14:23-0400 Height 160.02 cm [facility] Work Phone: 02-23-2017 14:23-0400 Weight 86.18 kg [facility] Work Phone: Encounters Encounter Date Encounter Type Care Provider Facility Start: 04-06-2025 End: 04-06-2025 Follow-up encounter Louis Dobbs MD Work Phone: [facility] Start: 04-03-2025 ambulatory LOUIS DOBBS Fac lity:[facility] Start: 04-03-2025 End: 04-03-2025 Subsequent hospital visit by physician Screen Mammo [facility] Comment on above: Encounter for screen ing mammogram for malignant neoplasm of breast [Z12.31] Start: 03-24-2025 End: 03-24-2025 Office outpatient visit 25 minutes Louis Dobbs MD Work Phone: [facility] Comment on above: Primary hypertension (Primary Dx); Gastroesophageal reflux disease without esophagitis; Hyperlipidemia, unspecified hyperlipidemia type; Hemiparesis due to old cerebrovascular accident (HCC); Unsteady gait; Dementia with anxiety, unspecified dementia severity, unspecified dementia type (HCC); Asthma with chronic obstructive pulmonary disease (COPD) (HCC); Paroxysmal atrial fibrillation (HCC); Hypertensive kidney disease with stage 3a chronic kidney disease (HCC); Encounter for screening mammogram for malignant neoplasm of breast; History of anemia; Candidal intertrigo; Bilateral lower extremity pain; 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ident (CVA); Brain aneurysm (HCC) Start: 03-24-2025 End: 03-24-2025 ambulatory LOUIS DOBBS Facility:[facility] Start: 02-27-2025 End: 02-27-[address] Louis Dobbs MD -Occupational Therapy Work Phone: Start: 02-27-2025 End: 02-27-[address] Louis Dobbs MD Work Phone: -Occupational Therapy Start: 02-13-2025 End: 02-13-[address] Louis Dobbs MD Work Phone: -[facility] Start: 02-13-2025 End: 02-13-2025 Patient encounter procedure Bernie Wallace -[facility] Work Phone: Start: 02-12-2025 End: 02-13-[address] Louis Dobbs MD Work Phone: -[facility] Start: 02-12-2025 End: 02-12-[address] Jonnathan Gama MD -[facility] Work Phone: Start: 02-11-2025 End: 02-11-2025 Telephone encounter Judy Haywood APRN.CONTRACT GRAPHIC DESIGNER Work Phone: [facility] Comment on above: Functional Capacity Eval (hoverround stated that she needs a functional capacity test) Start: 02-04-2025 End: 02-04-2025 Telephone encounter Judy Haywood HYBRID TESTER.CONTRACT GRAPHIC DESIGNER Work Phone: [facility] [place] Comment on above: Orders Start: 02-04-2025 End: 02-04-2025 Office outpatient visit 25 minutes Judy Haywood APRN.CONTRACT GRAPHIC DESIGNER Work Phone: [facility] Comment on above: Abnormality of gait as late effect of stroke (Primary Dx); Hemiparesis due to old cerebrovascular accident (HCC); Brain aneurysm (HCC); Urge incontinence; Impaired mobility and ADLs; Frequent falls; Neuropathy Start: 02-04-2025 End: 02-04-2025 ambulatory JUDY HAYWOOD Facility:[facility] Start: 01-13-2025 End: 01-13-2025 Emergency department patient visit Dr. 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 Work Phone: [facility] [place] Comment on above: Bilateral lower extr emity pain (Primary Dx); Pedal edema Start: 12-16-2024 End: 12-16-2024 ambulatory LOUIS DOBBS Facility:[facility] Start: 12-09-2024 End: 12-09-2024 ambulatory JUDY HAYWOOD Facility:[facility] Start: 12-09-2024 End: 12-09-2024 Subsequent hospital visit by physician [facility] Work Phone: Radiology Comment on above: Bilateral lower extr emity pain [M79.604, M79.605] Start: 12-09-2024 End: 12-09-2024 Office outpatient visit 25 minutes Judy Haywood HYBRID TESTER.CONTRACT GRAPHIC DESIGNER Work Phone: [facility] [place] Comment on above: Bilateral lower extr emity pain (Primary Dx); Pedal edema Start: 12-09-2024 End: 12-09-2024 ambulatory JUDY HAYWOOD Facility:[facility] Start: 12-09-2024 End: 12-10-2024 Follow-up encounter Judy Haywood APRN.CONTRACT GRAPHIC DESIGNER Work Phone: Internal Medicine [place] Comment on above: Results Start: 12-09-2024 End: 12-09-2024 Telephone encounter Judy Haywood HYBRID TESTER.CONTRACT GRAPHIC DESIGNER Work Phone: Internal [facility] [place] Comment on above: Patient Update; Appo intment Start: 11-13-2024 End: 11-13-2024 ambulatory Louis Dobbs Facility:[facility] Start: 11-13-2024 End: 11-13-[address] Jonnathan Gama MD -[facility] Work Phone: Start: 10-30-2024 End: 10-30-2024 Refill Louis Dobbs MD Work Phone: [facility] [place] Comment on above: Refill Request Start: 10-11-2024 End: 10-11-2024 Patient encounter procedure Lucio CLAUDIO -[facility] Work Phone: Start: 10-11-2024 End: 10-11-[address] Louis Dobbs MD Work Phone: [facility] Work Phone: Start: 10-11-2024 End: 10-11-2024 ambulatory Louis Dobbs Facility:[facility] Start: 09-26-[address] [facility] Facility:[facility] Start: 09-26-2024 End: 09-26-2024 Subsequent hospital visit by physician Shavon Valentin MD Work Phone: Cardiovascular Imaging [facility] Comment on above: Arrived Start: 09-17-2024 End: 10-03-2024 Telephone encounter Louis Dobbs MD Work Phone: [facility] Comment on above: Patient Update Start: 09-05-[address] [facility] Facility:[facility] Start: 09-02-2024 End: 09-03-2024 Refill Louis Dobbs MD Work Phone: Family Medicine [facility] Comment on above: Refill Request Start: 08-14-2024 End: 08-14-[address] Shavon Valentin MD -Laboratory Work Phone: Start: 08-14-2024 End: 08-14-2024 ambulatory Jonnathan Gama Facility:[facility] Start: 08-14-2024 End: 08-14-[address] Jonnathan Gama MD -[facility] Work Phone: Start: 08-14-2024 End: 08-14-2024 ambulatory [facility] Facility:[facility] Start: 07-26-2024 ambulatory Kyleigh Carrascoi ty:[facility] Start: 06-28-2024 End: 06-28-2024 Patient encounter procedure Contreras AN -Laboratory Work Phone: Start: 06-28-2024 End: 06-28-2024 ambulatory Contreras Maxwell NP Facility:[facility] Start: 06-25-2024 Non-patient / Non-visit Kyleigh aldana GRAPHICS MANAGER-C -[facility] Work Phone: Start: 06-25-2024 ambulatory Kyleigh Sam NP Facili ty:[facility] Start: 06-20-2024 ambulatory Shavon Homero Facility:[facility] Start: 06-19-2024 End: 06-19-2024 Refill Louis Dobbs MD Work Phone: [facility] Comment on above: Refill Request Start: 06-18-2024 ambulatory Shavon Homero Facility:[facility] Start: 06-17-2024 End: 06-18-2024 ambulatory JUDY HAYWOOD Facility:[facility] Start: 06-17-2024 End: 06-17-2024 Patient encounter procedure Judy Haywood HYBRID TESTER.CONTRACT GRAPHIC DESIGNER Work Phone: [facility] Comment on above: Medicare annual well ness visit, subsequent (Primary Dx); Shortness of breath; Asthma with chronic obstructive pulmonary disease (COPD) (HCC); Hypertensive kidney disease with stage 3a chronic kidney disease (HCC); Paroxysmal atrial fibrillation (HCC); Hemiparesis due to old cerebrovascular accident (HCC); Dementia, unspecified dementia severity, unspecified dementia type, unspecified whether behavioral, psychotic, or mood disturbance or anxiety (HCC); Anemia, unspecified type; Encounter for immunization; Gastroesophageal reflux disease without esophagitis; Depressive disorder; Anxiety; Hyperlipidemia, unspecified hyperlipidemia type Start: 06-12-2024 End: 06-12-2024 ambulatory Shavon Homero Facility:[facility] Start: 06-05-2024 End: 06-05-2024 ambulatory Louis Dobbs Facility:[facility] Start: 05-30-2024 End: 05-30-2024 ambulatory [facility] Start: 05-30-2024 End: 05-30-2024 Patient encounter procedure Frances Kidd MA [facility] [place] Start: 05-15-2024 End: 05-15-2024 ambulatory Jonnathan Gama Facility:[facility] Start: 05-08-2024 End: 05-08-2024 Refill Louis Dobbs MD Work Phone: [facility] Comment on above: Refill Request Start: 05-06-2024 End: 05-06-2024 ambulatory Jonnathan Gama Facility:[facility] Start: 03-20-2024 Telephone encounter Louis akins MD Work Phone: [facility] Comment on above: Patient Outreach Start: 03-19-2024 Refill Louis palacios MD Work Phone: [facility] [place] Comment on above: Refill Request Start: 03-05-2024 ambulatory Lily Camarena ALBERTA [facility] [place] Start: 03-05-2024 Patient encounter procedure Lily Camarena ALBERTA [facility] Comment on above: Appointment Start: 01-30-2024 ambulatory Silvia Cates [facility] [place] Start: 01-30-2024 Patient encounter procedure Silvia Cates MA [facility] [place] Comment on above: Population Health Na vigation Outreach ([place] AWV/HCC and care gaps ) Start: 01-17-2024 ambulatory Louis palacios MD Work Phone: Internal Medicine [place] [id number] Start: 12-26-2023 Refill Louis palacios MD Work Phone: [facility] [place] Comment on above: Refill Request Start: 11-28-2023 ambulatory Silvia Cates [facility] [place] Start: 11-28-2023 Patient encounter procedure Silvia Cates MA [facility] [place] Comment on above: Population Health Na vigation Outreach ([place] AWV/HCC and care gaps ) Refill Request Start: 10-03-2023 Refill Louis palacios MD Work Phone: [facility] Comment on above: Refill Request Start: 09-29-2023 Refill Louis palacios MD Work Phone: [facility] [place] Comment on above: Refill Request Start: 07-25-2023 Non-patient / Non-visit Dr. Tonya Dobbs Work Phone: [facility] Work Phone: Start: 07-24-2023 End: 07-25-2023 Evaluation and management of inpatient Dr. Louis Dobbs Work Phone: [facility]Medical Surgical 3 Work Phone: Start: 07-24-2023 End: 07-25-[address] Louis Dobbs Work Phone: [facility] Work Phone: Start: 07-24-2023 Non-patient / Non-visit Dr. Tonya Dobbs Work Phone: [facility] Work Phone: Start: 06-25-2023 End: 06-25-2023 Emergency department patient visit [facility] Work Phone: Start: 06-08-2023 Telephone encounter Louis akins MD Work Phone: [facility] Comment on above: Patient Question (in haler) Start: 05-24-2023 Telephone encounter Judy Quiros APRN.CNP Work Phone: [facility] Comment on above: Home Health Start: 05-16-2023 End: 05-16-[address] Louis Dobbs Work Phone: [facility] Work Phone: Start: 05-12-2023 Refill Louis palacios MD Work Phone: [facility] Comment on above: Refill Request Start: 04-17-2023 Refill Louis palacios MD Work Phone: Family [facility] Comment on above: Refill Request; Refi ll Request Start: 02-17-2023 Refill Louis palacios MD Work Phone: [facility] Comment on above: Refill Request; Refi ll Request Start: 02-16-2023 End: 02-16-[address] Louis Dobbs Work Phone: [facility] Work Phone: Start: 02-16-2023 End: 02-16-[address] Louis Dobbs Work Phone: [facility]-Laboratory Work Phone: Start: 01-23-2023 Refill Louis palacios MD Work Phone: [facility] Comment on above: Refill Request Start: 01-11-2023 Telephone encounter Silvia monterroso APRN.CONTRACT GRAPHIC DESIGNER Work Phone: OB/Gynecology Comment on above: Results Start: 01-11-2023 End: 01-11-2023 Subsequent hospital visit by physician [facility] Work Phone: Radiology Comment on above: Mastalgia [N64.4] Start: 01-10-2023 Non-patient / Non-visit Dr. Tonya Dobbs Work Phone: [facility] Start: 01-10-2023 End: 01-10-[address] Louis Dobbs Work Phone: [facility]Cardi[facility] Services Work Phone: Start: 12-09-2022 Documentation procedure Mammog mayco Coordinator [facility] Start: 12-09-2022 Letter encounter Mammography Coordinator [facility] Department Start: 12-08-2022 End: 12-08-2022 Patient encounter procedure Silvia Yates APRN.CONTRACT GRAPHIC DESIGNER Work Phone: OB/Gynecology Comment on above: Encounter for gyneco logical examination with abnormal finding (Primary Dx); Mastalgia; Encounter for screening for human papillomavirus (HPV); Pap smear for cervical cancer screening; Encounter for screening mammogram for breast cancer; Family history of breast cancer in first degree relative; Family history of breast cancer in male; Mixed incontinence Start: 12-08-2022 End: 12-08-2022 Patient encounter status Silvia Yates APRN.CONTRACT GRAPHIC DESIGNER Work Phone: OB/Gynecology Start: 11-14-2022 Telephone encounter Louis akins MD Work Phone: Internal [facility] Comment on above: Patient Update (fall) Start: 11-11-2022 Non-patient / Non-visit Dr. Tonya Dobbs Work Phone: [facility] Work Phone: Start: 11-03-2022 End: 11-03-[address] Louis Dobbs Work Phone: [facility] Work Phone: Start: 11-03-2022 End: 11-03-[address] Louis Dobbs Work Phone: [facility]Laboratory Start: 11-02-2022 Refill Louis palacios MD Work Phone: Internal [facility] Comment on above: Refill Request Start: 11-01-2022 End: 11-01-[address] Louis Dobbs Work Phone: [facility] Work Phone: Start: 11-01-2022 End: 11-01-[address] Louis Dobbs Work Phone: [facility]Labor[facility] Start: 10-26-2022 End: 10-26-[address] Louis Dobbs Work Phone: [facility] Start: 10-18-2022 End: 10-18-[address] Louis Dobbs Work Phone: [facility] Work Phone: Start: 10-18-2022 Telephone encounter Louis akins MD Work Phone: Internal [facility] Comment on above: Medication Request Clinical Update ( INR) Transition Of Care Start: 10-18-2022 End: 10-18-[address] Louis Dobbs Work Phone: [facility]Laboratory Start: 10-14-2022 End: 10-14-[address] Louis Dobbs Work Phone: [facility] Start: 10-12-2022 Telephone encounter Louis akins MD Work Phone: [facility] Comment on above: [place] /inquir ing about INRs Start: 10-03-2022 Telephone encounter Louis akins MD Work Phone: [facility] [place] Comment on above: [facility] HH/verbal order needed Start: 07-22-2022 End: 07-22-[address] Louis Dobbs Work Phone: [facility] Start: 07-14-2022 Telephone encounter Louis akins MD Work Phone: [facility] Comment on above: Patient Update Start: 07-06-2022 Telephone encounter Louis akins MD Work Phone: [facility] Comment on above: Patient Question; Pa tient Update; Orders Start: 06-20-2022 Telephone encounter Louis akins MD Work Phone: [facility] Comment on above: Patient Update Start: 06-13-2022 End: 06-17-2022 [facility] Start: 06-10-2022 End: 06-11-2022 Emergency department patient visit Dr. Louis Dobbs Work Phone: [facility]Emergency [facility] Start: 06-08-2022 End: 06-08-2022 Emergency department patient visit Dr. Louis Dobbs Work Phone: [facility] Start: 06-06-2022 Telephone encounter Louis akins MD Work Phone: [facility] Comment on above: [facility] HH POC and patie nt update Start: 06-06-2022 Non-patient / Non-visit Dr. Tonya Dobbs Work Phone: [facility] Start: 06-02-2022 Telephone encounter Louis akins MD Work Phone: [facility] Comment on above: Refill Request Start: 06-01-2022 Non-patient / Non-visit Dr. Tonya Dobbs Work Phone: [facility] Start: 05-30-2022 Telephone encounter Louis akins MD Work Phone: [facility] Comment on above: INR and Coumadin dos ing Start: 05-30-2022 End: 05-30-2022 Emergency department patient visit Dr. Louis Dobbs Work Phone: [facility]Emergency Department Start: 05-24-2022 Telephone encounter Louis akins MD Work Phone: [facility] Comment on above: Patient Update Start: 05-23-2022 Telephone encounter Louis akins MD Work Phone: [facility] Comment on above: Patient Update Start: 05-18-2022 Telephone encounter Louis akins MD Work Phone: [facility] Comment on above: report of patient fa ll Start: 05-16-2022 Telephone encounter Louis akins MD Work Phone: Family [facility] Comment on above: Home Health Point of Care Results Start: 05-11-2022 Telephone encounter Louis akins MD Work Phone: [facility] Comment on above: [facility] PT POC; Order s Start: 05-10-2022 Telephone encounter Louis akins MD Work Phone: Family [facility] Comment on above: HH Orders Start: 04-22-2022 End: 04-22-[address] Louis Dobbs Work Phone: [facility] Start: 03-17-2022 End: 03-17-[address] Louis Dobbs Work Phone: [facility] Neurology Start: 02-24-2022 Telephone encounter Louis akins MD Work Phone: [facility] Comment on above: Clinical Update Start: 02-23-2022 Non-patient / Non-visit Dr. Tonya Dobbs Work Phone: [facility] Inpatient Physicians Start: 02-22-2022 Non-patient / Non-visit Dr. Tonya Dobbs Work Phone: [facility] Start: 02-22-2022 Non-patient / Non-visit Dr. Tonya Dobbs Work Phone: [facility] In[facility] Phys[facility] Start: 02-21-2022 Non-patient / Non-visit Dr. Tonya Dobbs Work Phone: [facility] Start: 02-21-2022 Non-patient / Non-visit Dr. Tonya Dobbs Work Phone: [facility] In[facility] Phys[facility] Start: 02-20-2022 Non-patient / Non-visit Dr. Tonya Dobbs Work Phone: [facility] In[facility] Phys[facility] Start: 02-19-2022 Non-patient / Non-visit Dr. Tonya Dobbs Work Phone: [facility] In[facility] Phys[facility] Start: 02-18-2022 Non-patient / Non-visit Dr. Tonya Dobbs Work Phone: [facility] Start: 02-17-2022 Non-patient / Non-visit Dr. Tonya Dobbs Work Phone: [facility] In[facility] Phys[facility] Start: 02-17-2022 Non-patient / Non-visit Dr. Tonya Dobbs Work Phone: [facility] Start: 02-16-2022 Non-patient / Non-visit Dr. Tonya Dobbs Work Phone: [facility] Inpatient Phys[facility] Start: 02-16-2022 End: 02-23-2022 Evaluation and management of inpatient Dr. oLuis Dobbs Work Phone: [facility]-Intensive [facility] Unit Start: 02-02-2022 ambulatory Louis palacios MD Work Phone: Internal [facility] Start: 12-20-2021 Non-patient / Non-visit Dr. Tonya Dobbs Work Phone: [facility] Inpatient Physicians Start: 12-19-2021 Non-patient / Non-visit Dr. Tonya Dobbs Work Phone: [facility] In[facility] Phys[facility] Start: 12-18-2021 Non-patient / Non-visit Dr. Tonya Dobbs Work Phone: [facility] In[facility] Phys[facility] Start: 12-17-2021 Non-patient / Non-visit Dr. Tonya Dobbs Work Phone: [facility] Inpatient Phys[facility] Start: 12-16-2021 Non-patient / Non-visit Dr. Tonya Dobbs Work Phone: [facility] Inpatient Physicians Start: 12-15-2021 Non-patient / Non-visit Dr. Tonya Dobbs Work Phone: [facility] Inpatient Physicians Start: 12-14-2021 ambulatory Louis palacios MD Work Phone: Internal [facility] Comment on above: Epistaxis Start: 12-14-2021 Telephone encounter Louis akins MD Work Phone: Internal [facility] Comment on above: Release Of Medical R ecords Start: 12-14-2021 Non-patient / Non-visit Dr. Tonya Dobbs Work Phone: [facility] Inpatient Physicians Start: 12-14-2021 End: 12-20-2021 Evaluation and management of inpatient [facility] Start: 12-13-2021 Telephone encounter Louis akins MD Work Phone: [facility] Comment on above: [facility] Start: 12-13-2021 End: 12-13-[address] [facility] Start: 12-10-2021 Telephone encounter Judy Older HYBRID TESTER.CONTRACT GRAPHIC DESIGNER Work Phone: Internal [facility] Comment on above: asking for verbal or david Start: 12-10-2021 End: 12-10-[address] [facility] Start: 12-06-2021 Refill Judy Older HYBRID TESTER .CONTRACT GRAPHIC DESIGNER Work Phone: [facility] Comment on above: Refill Request Start: 12-06-2021 End: 12-06-2021 Emergency department patient [facility] Start: 11-30-2021 ambulatory Louis palacios MD Work Phone: Internal Medicine [facility] Start: 11-23-2021 End: 11-23-[address] Louis Dobbs Work Phone: [facility] Start: 11-10-2021 End: 11-10-2021 Emergency department patient [facility] Start: 11-08-2021 End: 11-08-[address] Louis Dobbs Work Phone: [facility] Start: 11-02-2021 Telephone encounter Louis akins MD Work Phone: [facility] [place] Comment on above: verbal orders Start: 11-02-2021 End: 11-02-[address] Louis Dobbs Work Phone: [facility] Start: 10-29-2021 End: 10-29-[address] [facility] Start: 10-20-2021 End: 10-20-[address] Louis Dobbs Work Phone: [facility] Start: 10-12-2021 End: 10-12-2021 Emergency department patient visit Dr. Louis Dobbs Work Phone: [facility]Emergency [facility] Start: 10-01-2021 End: 10-01-[address] Louis Dobbs Work Phone: [facility] Start: 09-30-2021 Telephone encounter Louis akins MD Work Phone: [facility] [place] Comment on above: Medication Request Start: 09-13-2021 End: 09-13-[address] Louis Dobbs Work Phone: [facility] Start: 08-23-2021 End: 08-23-[address] Louis Dobbs Work Phone: [facility] Start: 08-09-2021 End: 08-09-[address] Louis Dobbs Work Phone: [facility] Start: 07-22-2021 End: 07-22-[address] Louis Dobbs Work Phone: [facility] Start: 07-16-[address] Louis Dobbs Work Phone: [facility] Start: 07-14-2021 End: 07-14-[address] Louis Dobbs Work Phone: [facility] Start: 07-07-[address] Louis Dobbs Work Phone: [facility] Procedures Date Procedure Procedure Detail Performing Clinician Start: 01-13-2025 CT cervical spine without contrast Dr. Louis Dobbs MD Work Phone: Start: 01-13-2025 CT of head without contrast Dr. Louis Dobbs MD Work Phone: Start: 12-09-2024 Dup-scan xtr veins complete bilateral study Judy Haywood HYBRID TESTER.CONTRACT GRAPHIC DESIGNER Work Phone: Start: 09-26-2024 Cta hrt cornry art/bypass grfts contrst 3d post Shavon Valentin MD Work Phone: Start: 09-26-2024 Creatinine blood Shavon Valentin MD Work Phone: Start: 06-17-2024 [employer] COVID-19 VACCINE AGE 12+ YR (COMIRNATY) Judy Haywood HYBRID TESTER.CONTRACT GRAPHIC DESIGNER Work Phone: Start: 06-17-2024 Lipid 1996 panel - Serum or Plasma Louis Dobbs MD Work Phone: Start: 07-24-2023 SARS-CoV-2 & FLU Antigen (Rapid) Dr. Sam Dobbs Work Phone: Start: 07-24-2023 Plain chest X-ray Dr. Louis Dobbs Work Phone: Start: 06-25-2023 CT of head without contrast Start: 01-11-2023 Us breast uni real time with image limited Silvia Yates HYBRID TESTER.CONTRACT GRAPHIC DESIGNER Work Phone: Start: 12-08-2022 Mammography Mammography Coordinator Start: 06-16-2022 Prothrombin time ERICK MIRZA Start: 06-16-2022 DISCHARGE PATIENT ERICK MIRZA Start: 06-16-2022 Prothrombin time ERICK MIRZA Start: 06-15-2022 NURSING COMMUNICATION ERICK MIRZA Start: 06-15-2022 DISCHARGE PATIENT ERICK MIRZA Start: 06-15-2022 Comprehensive metabolic panel ERICK MYERS ИРИНА Start: 06-15-2022 Ct head/brain w/o contrast material ERICK MIRZA Start: 06-15-2022 Prothrombin time ERICK MIRZA Start: 06-14-2022 ADULT DIET ERICK MIRZA Start: 06-14-2022 IP CONSULT TO PHARMACY ERICK MIRZA Start: 06-14-2022 Assay of thyroid stimulating hormone tsh ERICK MIRZA Start: 06-14-2022 Lipid panel ERICK MIRZA Start: 06-14-2022 Lipid 1996 panel - Serum or Plasma Louis Dobbs MD Work Phone: Start: 06-13-2022 ELEVATE HEELS OFF OF BED ERICK YUKI Start: 06-13-2022 HEAD OF BED 60 DEGREES OR LESS ERICK BHAKTA Start: 06-13-2022 NURSING COMMUNICATION ERICK YUKI Start: 06-13-2022 TURN PATIENT ERICK MIRZA Start: 06-13-2022 Hemoglobin glycosylated a1c ERICK LYONS Start: 06-13-2022 Drug tst prsmv instrmnt chem analyzers pr date ERICK MIRZA Start: 06-13-2022 Blood count complete automated ERICK Norma YONY Start: 06-13-2022 FULL CODE ERICK MIRZA Start: 06-13-2022 IP CONSULT TO NEUROLOGY ERICK YUKI Start: 06-13-2022 NURSING COMMUNICATION ERICK MIRZA Start: 06-13-2022 ADVANCE DIET TOLERATED (NURSING COMMUNICATION) ERICK MIRZA Start: 06-13-2022 NIHSS ERICK MIRZA Start: 06-13-2022 NURSING SWALLOW ASSESSMENT ERICK SHAVER IS Start: 06-13-2022 OT EVAL AND TREAT ERICK MIRZA Start: 06-13-2022 PROVIDE PATIENT EDUCATION MATERIALS ERICK MIRZA Start: 06-13-2022 PT EVAL AND TREAT ERICK MIRZA Start: 06-13-2022 PLASTIC MANAGER EVAL AND TREAT ERICK YUKI Start: 06-13-2022 TOBACCO CESSATION EDUCATION ERICK LYONS Start: 06-13-2022 VITAL SIGNS ERICK MIRZA Start: 06-13-2022 VITAL SIGNS ERICK MIRZA Start: 06-13-2022 TELEMETRY MONITORING ERICK MIRZA Start: 06-13-2022 PLACE IN OBSERVATION SERVICE ERICK REED Start: 06-13-2022 IP CONSULT TO INTERNAL MEDICINE ERICK MIRZA Start: 06-13-[address] w/blood flow&volume ERICK MIRZA Start: 06-13-2022 Ct angiography neck w/contrast/noncontrast ERICK MIRZA Start: 06-13-2022 Ct head/brain w/o contrast material ERICK MIRZA Start: 06-13-2022 Ecg routine ecg w/least 12 lds w/i&r ERICK MIRZA Start: 06-13-2022 SALINE LOCK IV ERICK MIRZA Start: 06-13-2022 Gluc bld gluc mntr dev cleared fda spec home use ERICK MIRZA Start: 06-08-2022 Plain chest X-ray Dr. Louis Dobbs Work Phone: Start: 02-22-[address] Louis Dobbs Work Phone: Start: 02-16-2022 Plain chest X-ray Dr. Louis Dobbs Work Phone: Start: 02-16-2022 CT of head without contrast Dr. Louis Dobbs Work Phone: Start: 12-20-2021 End: 12-20-[address] Louis Dobbs Work Phone: Start: 12-14-[address] Louis Dobbs Work Phone: Start: 12-14-2021 CT of head without contrast Dr. Louis Dobbs Work Phone: Start: 07-22-2021 Plain chest X-ray Dr. Louis Dobbs Work Phone: Start: 06-12-2021 Lipid 1996 panel - Serum or Plasma Louis Dobbs MD Work Phone: Start: 10-27-2020 Antibody screen Comment on above: Order Comment: Specimen Type: BLOOD SPEC IMEN Performed By: #### T SCR ####[facility] BLOOD BANKCLIA [id number] Start: 10-07-2019 Mammography Louis Dobbs MD Work Phone: Start: 07-12-2016 Colonoscopy Louis Dobbs MD Work Phone: Start: 07-23-2009 H/O: artificial heart valve History of mitral valve replacement with bioprosthetic valve Lucio CLAUDIO Comment on above: 27 mm [employer] Velasco bioprosthesis Bacteria identified in Blood by Culture Dr. Louis Dobbs Work Phone: Clostridium difficile detection Dr. Louis Dobbs Work Phone: H/O: artificial heart valve Pres ence of xenogenic heart valve Shavon Valentin MD Work Phone: H/O: artificial heart valve Pres ence of xenogenic heart valve Shavon Valentin MD Work Phone: Influenza Types A,B Direct FA (SAKINA) Dr. Louis Dobbs Work Phone: Measurement of occul t blood in stool specimen using immunoassay Dr. Louis Dobbs Work Phone: Respiratory syncytia l virus antigen assay Dr. Louis Dobbs Work Phone: Urine culture Dr. Louis Dobbs Work Phone: Viral antigen assay Dr. Sushma Dobbs Work Phone: Plan of Treatment Date Care Activity Detail Author Start: 06-17-2029 Lipid panel Lipid Screening [facility] Start: 12-10-2027 Diabetes Screening Diabetes Screening [facility] Start: 12-09-2027 HPV TESTING HPV TESTING [facility] Start: 12-09-2027 PAP TESTING PAP TESTING [facility] Start: 12-09-2027 Screening for malignant neoplasm of cervix [facility] Start: 06-17-2027 Diabetes Screening Diabetes Screening [facility] Start: 06-14-2027 Lipid panel Lipid Screening [facility] Start: 07-12-2026 Colonoscopy COLONOSCOPY [facility] Start: 07-12-2026 COLORECTAL CANCER SCREENING COLORECTAL CANCER SCREENING [facility] Start: 07-12-2026 Screening for malignant neoplasm of colon [facility] Start: 06-12-2026 Lipid 1996 panel - Serum or Plasma Lipid Screening [facility] Start: 06-12-2026 LIPID SCREEN LIPID SCREEN [facility] Start: 04-03-2026 Screening for malignant neoplasm of breast Mammogram Screening [facility] Start: 03-24-2026 Annual PCP Team Chronic Disease Visit Annual PCP Team Chronic Disease Visit [facility] Start: 02-04-2026 Annual PCP Team Chronic Disease Visit Annual PCP Team Chronic Disease Visit [facility] Start: 12-16-2025 BP Controlled (<130/80) BP Controlled (<130/80) [facility] Start: 12-16-2025 zzBP Controlled (<130/80) (Retired) zzBP Controlled (<130/80) (Retired) [facility] Start: 12-09-2025 Annual PCP Team Chronic Disease Visit Annual PCP Team Chronic Disease Visit [facility] Start: 12-09-2025 Creatinine measurement Serum Creatinine [facility] Start: 06-17-2025 Annual PCP Team Chronic Disease Visit Annual PCP Team Chronic Disease Visit [facility] Start: 06-17-2025 BP Controlled (<130/80) BP Controlled (<130/80) [facility] Start: 06-17-2025 Complete blood count Hemoglobin/Hematocrit [facility] Start: 06-17-2025 Hepatitis B Vaccine (1 of 3 - 19+ 3-dose series) Hepatitis B Vaccine (1 of 3 - 19+ 3-dose series) [facility] Comment on above: Postponed from 1986 (Declined at t his time) Start: 06-17-2025 Shingrix Vaccine (1 of 2) Shingrix Vaccine (1 of 2) [facility] Comment on above: Postponed from 2017 (Declined at t his time) Start: 06-17-2025 Urine microalbumin profile DTaP,Tdap,Td Vaccine (2 - Td or Tdap) [facility] Comment on above: Postponed from 05/07/2022 (Declined at t his time) Start: 06-17-2025 End: 06-17-2025 Patient encounter procedure 06/17/2025 10:20 AM EST Office Visit [facility] [address] [place] [address] Louis Dobbs MD [address] [place] [address] Annual Medicare Wellness w/3 month follow-up [facility] Comment on above: Annual Medicare Wellness w/3 month follo w-up Start: 06-16-2025 Diabetes Screening Diabetes Screening [facility] Start: 06-13-2025 DIABETES SCREEN DIABETES SCREEN [facility] Start: 06-13-2025 Diabetes Screening Diabetes Screening [facility] Start: 06-12-2025 Creatinine measurement Serum Creatinine [facility] Start: 04-07-2025 Influenza vaccination Influenza Vaccine (#[facility] Start: 04-03-2025 End: 04-03-2025 Patient encounter procedure 04/03/2025 12:30 PM EDT Appointment Mammogram [address] [place] [address] : Encounter for screening mammogram for malignant neoplasm of breast [Z12.31] Mammogram Comment on above: : Encounter for screening mammogram for malignant neoplasm of breast [Z12.31] Start: 03-24-2025 End: 03-24-2025 Patient encounter procedure 03/24/2025 12:40 PM EDT Office Visit [facility] [address] [place] [address] Louis Dobbs MD [address] [place] [address] 3 month f/u [facility] Comment on above: 3 month f/u Start: 01-13-2025 [facility] Start: 01-08-2025 End: 01-08-2025 Patient encounter procedure 01/08/2025 3:30 PM EDT Office Visit Vascular Surgery [address] [address] [facility] Comment on above: [facility] Start: 12-16-2024 End: 12-16-2024 Patient encounter procedure 12/16/2024 1:00 PM EDT Office Visit [facility] [address] [place] [address] Judy Haywood, HYBRID TESTER.CONTRACT GRAPHIC DESIGNER [address] [place] [address] 6 month routine follow up [facility] Comment on above: 6 month routine follow up Start: 08-07-2024 Medicare [facility] Annual Wellness Visit Medicare Advantage Annual Wellness Visit [facility] Start: 06-17-2024 End: 09-16-2024 Cobalamin (Vitamin B12) [Mass/volume] in Serum or Plasma [facility] Comment on above: Expected: 06/17/2024, Expires: Start: 06-17-2024 End: 09-16-2024 Ferritin [Mass/volume] in Serum or Plasma [facility] Comment on above: Expected: 06/17/2024, Expires: Start: 06-17-2024 End: 09-16-2024 Hemoglobin A1c in Blood [facility] Work Phone: Comment on above: Expected: 06/17/2024, Expires: Start: 06-17-2024 End: 09-16-2024 Iron and Iron binding capacity panel - Serum or Plasma [facility] Comment on above: Expected: 06/17/2024, Expires: Start: 06-17-2024 End: 09-16-2024 Lipid 1996 panel - Serum or Plasma [facility] Comment on above: Expected: 06/17/2024, Expires: Start: 06-17-2024 End: 06-17-2024 Patient encounter procedure 06/17/2024 9:20 AM EST Office Visit Internal Medicine [facility] [address] [place] [address] Judy Haywood, HYBRID TESTER.CONTRACT GRAPHIC DESIGNER [address] [place] [address] physical [facility] Comment on above: physical Start: 05-23-2024 Annual PCP Team Chronic Disease Visit Annual PCP Team Chronic Disease Visit [facility] Start: 05-23-2024 BP Controlled (<130/80) BP Controlled (<130/80) [facility] Start: 05-23-2024 Covid-19 Vaccine (5 - 2023-24 season) Covid-19 Vaccine ( season) [facility] Comment on above: Postponed from 04/07/2023 (Declined at t his time) Start: 05-23-2024 Hepatitis B Vaccine (1 of 3 - 19+ 3-dose series) Hepatitis B Vaccine (1 of 3 - 19+ 3-dose series) [facility] Comment on above: Postponed from 1986 (Declined at t his time) Start: 05-23-2024 Hepatitis B Vaccine (1 of 3 - 3-dose series) Hepatitis B Vaccine (1 of 3 - 3-dose series) [facility] Comment on above: Postponed from 1967 (Declined at t his time) Start: 05-23-2024 Shingrix Vaccine (1 of 2) Shingrix Vaccine (1 of 2) [facility] Comment on above: Postponed from 2017 (Declined at t his time) Start: 05-23-2024 Urine microalbumin profile DTaP,Tdap,Td Vaccine (2 - Td or Tdap) [facility] Comment on above: Postponed from 05/07/2022 (Declined at t his time) Start: 04-07-2024 Covid-19 Vaccine ( season) Covid-19 Vaccine ( season) [facility] Start: 04-07-2024 Influenza vaccination Influenza Vaccine (#[facility]) [facility] Start: 02-17-2024 Creatinine measurement Serum Creatinine [facility] Start: 02-17-2024 Serum Creatinine Serum Creatinine [facility] Start: 01-08-2024 DIABETES SCREEN DIABETES SCREEN [facility] Start: 12-12-2023 End: 12-12-2023 Patient encounter procedure 12/12/2023 2:30 PM EDT Office Visit OB/Gynecology [address] [place] [address] Silvia Yates APRN.CONTRACT GRAPHIC DESIGNER [address] [place] [address] annual OB/Gynecology Comment on above: annual Start: 12-09-2023 Mammography [facility] Start: 12-09-2023 Screening for malignant neoplasm of breast [facility] Start: 10-25-2023 ANNUAL PCP TEAM CHRONIC DISEASE VISIT ANNUAL PCP TEAM CHRONIC DISEASE VISIT [facility] Start: 10-25-2023 BP CONTROLLED (<130/80) BP CONTROLLED (<130/80) [facility] Start: 07-25-2023 Patient discharge [facility] Start: 07-24-2023 Respiratory secretion precautions [facility] Start: 07-24-2023 Following clinical pathway protocol [facility] Start: 07-24-2023 Ambulation without limitation [facility] Start: 07-24-2023 Assessment of risk of venous thromboembolism [facility] Start: 07-24-2023 Catheterization of vein [facility] Start: 07-24-2023 Incentive spirometry [facility] Start: 07-24-2023 Insertion of catheter into peripheral vein [facility] Start: 07-24-2023 Oxygen therapy [facility] Start: 07-24-2023 Physiotherapy of chest [facility] Start: 07-24-2023 Providing care according to standard [facility] Start: 07-24-2023 Referral to occupational therapist [facility] Start: 07-24-2023 Referral to service [facility] Start: 07-24-2023 [facility] Start: 07-24-2023 Verification routine [facility] Start: 07-24-2023 Admission procedure [facility] Start: 07-24-2023 Hospital admission, emergency, from emergency room, medical nature [facility] Start: 07-24-2023 Consultation [facility] Start: 06-25-2023 [facility] Start: 06-16-2023 Complete blood count Hemoglobin/Hematocrit [facility] Start: 06-13-2023 HEMOGLOBIN/HEMATOCRIT HEMOGLOBIN/HEMATOCRIT [facility] Start: 06-07-2023 ANNUAL PCP TEAM CHRONIC DISEASE VISIT ANNUAL PCP TEAM CHRONIC DISEASE VISIT [facility] Start: 06-07-2023 BP CONTROLLED (<130/80) BP CONTROLLED (<130/80) [facility] Start: 05-23-2023 HPV TESTING HPV TESTING [facility] Start: 05-23-2023 PAP TESTING PAP TESTING [facility] Start: 04-07-2023 Covid-19 Vaccine () Covid-19 Vaccine () [facility] Start: 04-07-2023 Influenza vaccination [facility] Start: 10-19-2022 ANNUAL PCP TEAM CHRONIC DISEASE VISIT ANNUAL PCP TEAM CHRONIC DISEASE VISIT [facility] Start: 10-19-2022 BP CONTROLLED (<130/80) BP CONTROLLED (<130/80) [facility] Start: 06-10-2022 Suicide precautions [facility] Work Phone: Start: 06-08-2022 Suicide precautions [facility] Work Phone: Start: 05-07-2022 Tetanus vaccination TETANUS [facility] Start: 05-07-2022 Urine microalbumin profile [facility] Start: 04-07-2022 Influenza vaccination INFLUENZA (#1) [facility] Start: 04-06-2022 COVID-19 VACCINE (4 - Booster for Pfizer series) COVID-19 VACCINE (4 - Booster for Pfizer series) [facility] Start: 02-23-2022 Patient discharge [facility] Work Phone: Start: 02-23-2022 [facility] Work Phone: Start: 02-21-2022 Catheterization of vein [facility] Work Phone: Start: 02-21-2022 [facility] Work Phone: Start: 02-20-2022 Blood chemistry [facility] Work Phone: Start: 02-20-2022 Prothrombin time [facility] Work Phone: Start: 02-19-2022 Referral to gastroenterology service [facility] Work Phone: Start: 02-19-2022 Blood chemistry [facility] Work Phone: Start: 02-19-2022 Prothrombin time [facility] Work Phone: Start: 02-19-2022 [facility] Work Phone: Start: 02-18-2022 Care planning and problem solving actions [facility] Work Phone: Start: 02-18-2022 Blood chemistry [facility] Work Phone: Start: 02-18-2022 Prothrombin time [facility] Work Phone: Start: 02-17-2022 Enteric precautions [facility] Work Phone: Start: 02-17-2022 Blood chemistry [facility] Work Phone: Start: 02-17-2022 Prothrombin time [facility] Work Phone: Start: 02-17-2022 Thyroid stimulating hormone measurement [facility] Work Phone: Start: 02-17-2022 [facility] Work Phone: Start: 02-16-2022 Following clinical pathway protocol [facility] Work Phone: Start: 02-16-2022 Ambulation without limitation [facility] Work Phone: Start: 02-16-2022 Assessment of risk of venous thromboembolism [facility] Work Phone: Start: 02-16-2022 Catheterization of vein [facility] Work Phone: Start: 02-16-2022 Consultation [facility] Work Phone: Start: 02-16-2022 Continuous pulse oximetry [facility] Work Phone: Start: 02-16-2022 Inhalation therapy procedure [facility] Work Phone: Start: 02-16-2022 Insertion of catheter into peripheral vein [facility] Work Phone: Start: 02-16-2022 Measuring intake and output [facility] Work Phone: Start: 02-16-2022 Notification of physician [facility] Work Phone: Start: 02-16-2022 Oxygen therapy [facility] Work Phone: Start: 02-16-2022 Patient referral to dietitian [facility] Work Phone: Start: 02-16-2022 Providing care according to standard [facility] Work Phone: Start: 02-16-2022 Referral to occupational therapist [facility] Work Phone: Start: 02-16-2022 Referral to service [facility] Work Phone: Start: 02-16-2022 Respiratory therapy [facility] Work Phone: Start: 02-16-2022 Vital signs measurements [facility] Work Phone: Start: 02-16-2022 [facility] Work Phone: Start: 02-16-2022 Bacterial nucleic acid assay [facility] Work Phone: Start: 02-16-2022 Bacteria identified in Sputum by Culture [facility] Work Phone: Start: 02-16-2022 Influenza virus A and B and Respiratory syncytial virus RNA panel - Upper respiratory specimen by ANGELINE with probe detection [facility] Work Phone: Start: 02-16-2022 Verification routine [facility] Work Phone: Start: 02-16-2022 Admission procedure [facility] Work Phone: Start: 02-16-2022 Streptococcus pneumoniae antigen assay [facility] Work Phone: Start: 02-16-2022 [facility] Work Phone: Start: 02-16-2022 End: 02-16-2022 Blood culture [facility] Work Phone: Start: 02-16-2022 End: 02-16-2022 [facility] Work Phone: Start: 01-07-2022 HEMOGLOBIN/HEMATOCRIT HEMOGLOBIN/HEMATOCRIT [facility] Start: 01-07-2022 SERUM CREATININE SERUM CREATININE [facility] Start: 12-20-2021 Patient discharge [facility] Work Phone: Start: 12-19-2021 [facility] Work Phone: Start: 12-19-2021 Care planning and problem solving actions [facility] Work Phone: Start: 12-18-2021 End: 12-19-2021 [facility] Work Phone: Start: 12-14-2021 Following clinical pathway protocol [facility] Work Phone: Start: 12-14-2021 Bacteria identified in Urine by Culture Urine Culture [facility] Work Phone: Start: 12-14-2021 Urine culture Urine Culture [facility] Work Phone: Start: 12-14-2021 Assessment of risk of venous thromboembolism [facility] Work Phone: Start: 12-14-2021 Catheterization of vein [facility] Work Phone: Start: 12-14-2021 Incentive spirometry [facility] Work Phone: Start: 12-14-2021 Insertion of catheter into peripheral vein [facility] Work Phone: Start: 12-14-2021 Measuring intake and output [facility] Work Phone: Start: 12-14-2021 Patient referral to dietitian [facility] Work Phone: Start: 12-14-2021 Providing care according to standard [facility] Work Phone: Start: 12-14-2021 Provision of activity privileges [facility] Work Phone: Start: 12-14-2021 Referral to occupational therapist [facility] Work Phone: Start: 12-14-2021 End: 12-14-2021 Referral to service [facility] Work Phone: Start: 12-14-2021 Admission procedure [facility] Work Phone: Start: 12-14-2021 Patient referral to dietitian [facility] Work Phone: Start: 11-30-2021 End: 01-30-2022 CBC panel - Blood by Automated count CBC Lab Routine Hypertensive kidney disease with stage 3 chronic kidney disease (HCC) Expected: 11/30/2021, Expires: 01/30/2022 [facility] Work Phone: Comment on above: Expected: 11/30/2021, Expires: 2 Start: 11-30-2021 End: 01-30-2022 Renal function 2000 panel - Serum or Plasma RENAL FUNCTION PANEL Lab Routine Hypertensive kidney disease with stage 3 chronic kidney disease (HCC) Expected: 11/30/2021, Expires: 01/30/2022 [facility] Work Phone: Comment on above: Expected: 11/30/2021, Expires: 2 Start: 11-30-2021 End: 01-30-2022 SCHEDULE LAB TESTING SCHEDULE LAB TESTING Lab Routine Expected: 11/30/2021, Expires: 01/30/2022 [facility] Work Phone: Comment on above: Expected: 11/30/2021, Expires: 2 Start: 07-25-2021 COVID-19 VACCINE (3 - Booster for Pfizer series) COVID-19 VACCINE (3 - Booster for Pfizer series) [facility] Start: 04-19-2021 COVID-19 VACCINE (3 - Booster for Pfizer series) COVID-19 VACCINE (3 - Booster for Pfizer series) [facility] Start: 10-06-2020 Mammography MAMMOGRAM [facility] Start: 2017 SHINGRIX VACCINE (1 of 2) SHINGRIX VACCINE (1 of 2) [facility] Start: 2017 Zoster vaccine hzv live for subcutaneous use ZOSTER (SHINGLES) VACCINE (1 of 2) [facility] Start: 07-12-2017 Screening for malignant neoplasm of colon COLORECTAL CANCER SCREENING DISCUSSION [facility] Start: 06-18-2017 PNEUMOCOCCAL (2 - PCV) PNEUMOCOCCAL (2 - PCV) [facility] Start: 06-18-2017 Pneumococcal vaccination Pneumococcal Vaccine (2 - PCV) [facility] Start: 05-09-2017 End: 05-09-2017 Appointment [facility] Work Phone: Start: 03-01-2017 End: 03-01-2017 Physical Therapy General Physical Therapy [facility], [address] [place] [address], [id number] [facility] Work Phone: Start: 11-28-2015 FECAL OCCULT BLOOD FECAL OCCULT BLOOD [facility] Start: 11-28-2015 Screening for malignant neoplasm of colon Fecal Occult Blood [facility] Start: 2012 COLOGUARD (FIT-DNA) COLOGUARD (FIT-DNA) [facility] Start: [address] COLONOGRAPHY [facility] Start: 2012 Screening for malignant neoplasm of colon [facility] Start: 2012 SIGMOIDOSCOPY SIGMOIDOSCOPY [facility] Start: 2007 Lipid panel LIPID SCREENING [facility] Start: 1997 Zoledronic acid therapy ALPHA-1 ANTITRYPSIN DEFICIENCY SCREENING [facility] Start: 1988 Screening for malignant neoplasm of cervix CERVICAL CANCER SCREENING DISCUSSION [facility] Start: 1986 Hepatitis B vaccination HEP B VACCINE (1 of 3 - 19+ 3-dose series) [facility] Start: 1986 Hepatitis B Vaccine (1 of 3 - 19+ 3-dose series) Hepatitis B Vaccine (1 of 3 - 19+ 3-dose series) [facility] Start: 1985 BP CONTROLLED (<130/80) BP CONTROLLED (<130/80) [facility] Start: 1982 HIV screening HIV SCREENING DISCUSSION [facility] Start: 1967 HEPATITIS B (1 of 3 - 3-dose series) HEPATITIS B (1 of 3 - 3-dose series) [facility] Start: 1967 Hepatitis B Vaccine (1 of 3 - 3-dose series) Hepatitis B Vaccine (1 of 3 - 3-dose series) [facility] Start: 1967 Hepatitis C screening HEPATITIS C VIRUS SCREENING [facility] Alanine aminotransfe rase [Enzymatic activity/volume] in Serum or Plasma [facility] Work Phone: Albumin [Mass/volume ] in Serum or Plasma [facility] Work Phone: Alkaline phosphatase [Enzymatic activity/volume] in Serum or Plasma [facility] Work Phone: Anion gap measurement [facility] Work Phone: Aspartate aminotransferase [Enzymatic activity/volume] in Serum or Plasma [facility] Work Phone: Bacteria identified in Blood by Culture Blood Culture [facility] Work Phone: Bacterial nucleic ac id assay [facility] Work Phone: Bilirubin, total measurement [facility] Work Phone: Bilirubin.direct [Mass/volume] in Serum or Plasma [facility] Work Phone: Blood ammonia measurement [facility] Work Phone: Blood culture [facility] Work Phone: BUN/Creatinine ratio [facility] Work Phone: Calcium [Mass/volume ] in Serum or Plasma [facility] Work Phone: Carbon dioxide, tota l [Moles/volume] in Serum or Plasma [facility] Work Phone: Chloride [Moles/volu me] in Serum or Plasma [facility] Work Phone: Creatinine [Moles/vo lume] in Serum or Plasma [facility] Work Phone: End: 02-15-2025 DBT Breast - bilateral screening KATHERINE SCREENING W ABHISHEK Radiology Routine Encounter for screening mammogram for breast cancer 1 Occurrences starting 01/17/2024 until 02/15/2025 [facility] Work Phone: Comment on above: 1 Occurrences starting 01/17/2024 until 02/15/2025 End: 01-16-2026 DBT Breast - bilateral screening KATHERINE SCREENING W ABHISHEK Radiology Routine Encounter for screening mammogram for breast cancer 1 Occurrences starting 12/17/2024 until 01/16/2026 [facility] Work Phone: Comment on above: 1 Occurrences starting 12/17/2024 until 01/16/2026 End: 04-23-2026 DBT Breast - bilateral screening KATHERINE SCREENING W ABHISHEK Radiology Routine Encounter for screening mammogram for malignant neoplasm of breast 1 Occurrences starting 03/24/2025 until 04/23/2026 [facility] Work Phone: Comment on above: 1 Occurrences starting 03/24/2025 until 04/23/2026 DBT Breast - bilater al screening KATHERINE SCREENING W ABHISHEK Radiology Routine Encounter for screening mammogram for malignant neoplasm of breast 04/03/2025 2:45 PM EDT [facility] Work Phone: Folate [Mass/volume] in Serum or Plasma [facility] Work Phone: Glucose [Mass/volume ] in Serum or Plasma [facility] Work Phone: Hematocrit [Volume Fraction] of Blood [facility] Work Phone: Hemoglobin [Mass/vol ume] in Blood [facility] Work Phone: INR in Blood by Coagulation assay [facility] Work Phone: Legionella Antigen Legionella Antigen [facility] Work Phone: Legionella pneumophi la Ag [Presence] in Urine [facility] Work Phone: Leukocytes [#/volume ] in Blood [facility] Work Phone: Lipid 1996 panel - S lovely or Plasma [facility] Work Phone: Magnesium [Mass/volu me] in Serum or Plasma [facility] Work Phone: End: 01-07-2024 KATHERINE DIAGNOSTIC BILATERAL KATHERINE DIAGNOSTIC BILATERAL Radiology Routine Mastalgia Family history of breast cancer in first degree relative Family history of breast cancer in male 1 Occurrences starting 12/08/2022 until 01/07/2024 [facility] Work Phone: Comment on above: 1 Occurrences starting 12/08/2022 until 01/07/2024 Mean corpuscular hemoglobin concentration determination [facility] Work Phone: Mean corpuscular hemoglobin determination [facility] Work Phone: Measurement of renal function [facility] Work Phone: Measurement of substance [facility] Work Phone: Neutrophil count [facility] Work Phone: Neutrophil percent differential count [facility] Work Phone: PAP TEST PAP TEST Lab Howie hahn Encounter for gynecological examination with abnormal finding Encounter for screening for human papillomavirus (HPV) Pap smear for cervical cancer screening 12/08/2022 2:02 PM EDT [facility] Work Phone: Patient Education [facility] Work Phone: Patient referral [facility] Work Phone: Platelets [#/volume] in Blood [facility] Work Phone: Potassium [Moles/vol ume] in Serum or Plasma [facility] Work Phone: Prothrombin time [facility] Work Phone: Red blood cell count [facility] Work Phone: Red cell distributio n width determination [facility] Work Phone: Respiratory pathogen s DNA and RNA panel - Respiratory specimen by ANGELINE with probe detection [facility] End: 03-04-2023 Screening mammography bi 2-view breast inc cad KATHERINE SCREENING Radiology Routine Encounter for screening mammogram for breast cancer 1 Occurrences starting 02/02/2022 until 03/04/2023 [facility] Work Phone: Comment on above: 1 Occurrences starting 02/02/2022 until 03/04/2023 Sodium [Moles/volume ] in Serum or Plasma [facility] Work Phone: Streptococcus pneumo niae Antigen (M Streptococcus pneumoniae Antigen (M [facility] Work Phone: Streptococcus pneumo niae antigen assay [facility] Work Phone: Thiamine measurement [facility] Work Phone: Thyroid stimulating hormone measurement [facility] Work Phone: Total protein measurement [facility] Work Phone: Urea nitrogen [Mass/volume] in Serum or Plasma [facility] Work Phone: End: 01-07-2024 US BREAST LTD RIGHT [facility] Work Phone: Comment on above: 1 Occurrences starting 12/08/2022 until 01/07/2024 US Heart [facility] End: 12-09-2025 US Lower extremity artery - bilateral PVR LEG [facility] Routine Bilateral lower extremity pain 1 Occurrences starting 12/09/2024 until 12/09/2025 [facility] Work Phone: Comment on above: 1 Occurrences starting 12/09/2024 until 12/09/2025 End: 12-09-2025 Lower extremity veins - bilateral US LEG VEIN DVT [facility] STAT Bilateral lower extremity pain Pedal edema 1 Occurrences starting 12/09/2024 until 12/09/2025 [facility] Comment on above: 1 Occurrences starting 12/09/2024 until 12/09/2025 Vitamin B12 measurement [facility] Work Phone: [facility] Immunizations Immunization Date Immunization Notes Care Provider Elias denise 06-17-2024 COVID-19 vaccine, ag e 12+ yr ([employer] COM[employer]NAT) Judykarina Haywood HYBRID TESTER.CONTRACT GRAPHIC DESIGNER Work Phone: [facility] 06-17-2024 influenza, seasonal, injectable Judy Joe HYBRID TESTER.CONTRACT GRAPHIC DESIGNER Work Phone: [facility] 06-17-2024 influenza virus vaccine, unspecified formulation Judy Joe HYBRID TESTER.CONTRACT GRAPHIC DESIGNER Work Phone: [facility] 05-23-2023 influenza, injectabl e, quadrivalent, contains preservative Judy Older HYBRID TESTER.CONTRACT GRAPHIC DESIGNER Work Phone: [facility] 05-23-2023 pneumococcal (PCV20) vaccine, 20 valent (PREVNAR 20) Judy Older HYBRID TESTER.CONTRACT GRAPHIC DESIGNER Work Phone: [facility] 05-23-2023 influenza virus vaccine, unspecified formulation Lily Camarena ALBERTA [facility] 07-26-2022 COVID-19 vaccine, ag e 12+ yr, bivalent (MODERNA) Judy Older HYBRID TESTER.CONTRACT GRAPHIC DESIGNER Work Phone: [facility] 06-07-2022 influenza, injectabl e, quadrivalent, contains preservative Louis Dobbs MD Work Phone: [facility] Work Phone: 06-07-2022 influenza virus vaccine, unspecified formulation Louis Dobbs MD Work Phone: [facility] 02-09-2022 COVID-19 original vaccine, full dose, monovalent (MODERNA) Louis Dobbs MD Work Phone: [facility] Work Phone: 06-14-2021 influenza, injectabl e, quadrivalent, contains preservative Louis Dobbs MD Work Phone: [facility] Work Phone: 06-14-2021 influenza, injectabl e, quadrivalent, preservative free [facility] 06-14-2021 influenza, seasonal, injectable Dr. Louis Dobbs Work Phone: [facility] 02-22-2021 COVID-19 vaccine, ag e 12+ yr (PFIZER-BIONTECH [facility]) Louis Dobbs MD Work Phone: [facility] 01-07-2021 COVID-19 vaccine, ag e 12+ yr (PFIZER-[employer]IONTECH - PURPLE TOP) Louis Dobbs MD Work Phone: [facility] 10-08-2020 influenza, injectabl e, quadrivalent, preservative free [facility] 10-08-2020 influenza, seasonal, injectable Dr. Louis Dobbs Work Phone: [facility] 10-08-2020 influenza, seasonal, injectable, preservative free Louis Dobbs MD Work Phone: [facility] Work Phone: 05-19-2019 Influenza, injectabl e, Madin [place] Canine Kidney, preservative free, quadrivalent Louis Dobbs MD Work Phone: [facility] Work Phone: 05-14-2018 influenza, injectabl e, quadrivalent, contains preservative Louis Dobbs MD Work Phone: [facility] Work Phone: 04-15-2017 influenza, seasonal, injectable Louis Dobbs MD Work Phone: [facility] 06-18-2016 pneumococcal polysaccharide vaccine, 23 valent Louis Dobbs MD Work Phone: [facility] Work Phone: 04-17-[address] Louis Dobbs Work Phone: [facility] 04-17-2016 influenza, seasonal, injectable, preservative free Louis Dobbs MD Work Phone: [facility] Work Phone: 04-16-2016 influenza, injectabl e, quadrivalent, contains preservative Louis Dobbs MD Work Phone: [facility] 08-18-2015 pneumococcal polysaccharide vaccine, 23 valent Louis Dobbs MD Work Phone: [facility] 06-10-2015 influenza, seasonal, injectable Louis Dobbs MD Work Phone: [facility] 07-24-2013 influenza virus vaccine, unspecified formulation Louis Dobbs MD Work Phone: [facility] Work Phone: 05-07-2012 tetanus toxoid, redu ronna diphtheria toxoid, and acellular pertussis vaccine, adsorbed Louis Dobbs MD Work Phone: [facility] Work Phone: 11-05-2001 tetanus and diphther ia toxoids, not adsorbed, for adult use Louis Dobbs MD Work Phone: [facility] Work Phone: Payers Date Payer Category Payer Medicaid (Managed Care) [facility] [id number] 2024 Self-pay [id number] 2024 Unknown [id number] 2022 Medicare (Managed Care) 1.2. [id number] 2022 Unknown [id number]. [id number] 2022 Medicare [id number] 2016 Medicaid [id number] 2016 Medicare [id number] 2016 Medicare [facility] MEDICARE MYC ARE [facility] MEDICARE [id number] 2016-Present [phone] [address] [place] [address] Medicare [id number] 2016 Unknown [id number] 1967 Unknown [id number] 2.16.840.1.754592.3.579.2. 204 1967 Unknown [id number] 2.16.840.1.272686.3.579.2. 594 1967 Unknown [id number] 2.16.840.1.910665.3.579.2. 594 Medicare MEDICARE PART A B [id number] Unknown [id number] 2.16.840.1.361879.3.579.2. 462 Unknown [id number] 2.16.840.1.809321.3.579.2. 462 Unknown [id number] 2.16.840.1.205554.3.579.2. 462 Unknown [id number] 2.16.840.1.030097.3.579.2. 462 Unknown [id number] 2.16.840.1.873763.3.579.2. 462 Unknown [id number] 2.16.840.1.831891.3.579.2. 462 Unknown [id number] 2.16.840.1.239643.3.579.2. 462 Unknown [id number] 2.16.840.1.289061.3.579.2. 462 Unknown [id number] 2.16.840.1.566772.3.579.2. 462 Unknown [id number] 2.16.840.1.247604.3.579.2. 462 Unknown [id number] 2.16.840.1.049397.3.579.2. 462 Unknown [id number] 2.16.840.1.612191.3.579.2. 462 Unknown [id number] 2.16.840.1.834855.3.579.2. 462 Unknown [id number] 2.16.840.1.918854.3.579.2. 462 Unknown [id number] 2.16.840.1.004787.3.579.2. 462 Unknown [id number] 2.16.840.1.677348.3.579.2. 462 Unknown [id number] 2.16.840.1.294551.3.579.2. 462 Unknown [id number] 2.16.840.1.272892.3.579.2. 462 Unknown [id number] 2.16.840.1.902379.3.579.2. 462 Unknown [id number] 2.16.840.1.301732.3.579.2. 462 Unknown [id number] 2.16.840.1.748976.3.579.2. 462 Unknown [id number] 2.16.840.1.191480.3.579.2. 462 Social History Date Type Detail Facility Start: 02-22-2021 End: 03-24-2025 Tobacco smoking status NHIS Ex-smoker [facility] Work Phone: Start: 1990 History of tobacco use Cigarette Smo ker [facility] Work Phone: Start: 02-22-2021 End: 04-03-2025 Cigarettes smoked current (pack per day) - Reported 0.5 [facility] Work Phone: Start: 02-22-2021 End: 03-24-2025 Tobacco use and exposure Smokeless tobacco non-user [facility] Work Phone: Start: 02-22-2021 End: 03-24-2025 Alcohol intake Current non-drinker of alcohol (finding) [facility] Start: 02-22-2021 Tobacco Comment quit 2020 [facility] Start: 1965 Sex Assigned At Not on file [facility] Start: 10-09-2021 End: 06-07-2022 Exposure to SARS-CoV-2 (event) Not sure [facility] Work Phone: Start: 11-02-2021 End: 07-25-2023 Tobacco smoking status NHIS Unknown if ever smoked [facility] Start: 07-24-2019 None [facility] Start: 07-24-2019 Spouse/ Signif icant Other [facility] Start: 10-09-2020 Cigarettes [facility] Start: 1965 Sex Assigned At Female W [facility] Start: 1990 History of tobacco use Current smoke r [facility] Work Phone: Start: 05-02-2022 End: 05-12-2022 Exposure to SARS-CoV-2 (event) Unable to assess [facility] Work Phone: Start: 06-07-2022 End: 01-13-2025 Tobacco smoking status NHIS Smokes tobacco daily [facility] Work Phone: Start: 12-08-2022 End: 04-03-2025 Tobacco use panel [facility] Work Phone: Start: 07-08-2012 Adult Depression Screening Assessment 0 [facility] Work Phone: How often to you hav e a drink containing alcohol? Never [facility] Start: 08-14-2024 End: 10-23-2024 Sex Female (finding) [facility] Medical Equipment Procedure Code Equipment Code Equipment Origin al Text Equipment Identifier Dates Coil Target 2.5m m 360d 4cm Embolization Detachable Ultra - [id number] Start: 10-17-2020 Coil Target 3mm 360d 4cm Embolization Detachable Ultra - [id number] Start: 10-17-2020 Coil Target 2mm 360d 3cm Embolization Detachable Ultra - [id number] Start: 10-17-2020 Coil Target 2.5m m 360d 4cm Embolization Detachable Ultra - [id number] Start: 10-17-2020 Coil Target 5mm 360d 10cm Embolization Detachable Soft - [id number] Start: 10-17-2020 Device Angio-Sea l Vip Bondek-Plus 8fr .038in Polyglyd 70cm Closure - [id number] Start: 10-17-2020 Coil Target 2mm 360d 4cm Embolization Detachable Ultra - [id number] Start: 10-17-2020 Coil Target 4mm 360d 8cm Embolization Detachable Soft - [id number] Start: 10-17-2020 Coil Target 3mm 360d 10cm Embolization Detachable Ultra - [id number] Start: 10-17-2020 Coil Target 4mm 360d 15cm Embolization Detachable Ultra - [id number] Start: 10-17-2020 Coil Target 4mm 360d 15cm Embolization Detachable Soft - [id number] Start: 10-17-2020 Coil Target 5mm 360d 15cm Embolization Detachable Soft - [id number] Start: 10-17-2020 Coil Target 5mm 360d 15cm Embolization Detachable Soft - [id number] Start: 10-17-2020 Lead-07/28/2009 [id number] Start: 07-28-2009 Comment on above: Description: PACERMA KER LEAD Lead-07/04/[id number] Start: 07-04-2011 Comment on above: Description: PACEMAK ER LEAD Pacemaker-07/04/[id number] Sta rt: 07-04-2011 Stent Nf Trion 3.0x21mm No Tip - [id number] Start: 10-17-2020 Stent Nf Trion 3.0x21mm No Tip - [id number] Start: 10-17-2020 Stent Nf Trion 3.0x24mm No Tip - [id number] Start: 10-17-2020 Valve-07/23/[id number] Start: 07-23-2009 [facility] FDA Start: 07-28-2009 [facility] FDA Start: 07-28-2009 [facility] ASSURIY PACEMAKER FDA Start: 09-21-2020 [facility] FDA Start: 07-28-2009 [facility] FDA Start: 07-28-2009 [facility] [employer] PACEMAKER FDA Start: 09-21-2020 [facility] FDA Start: 07-28-2009 [facility] FDA Start: 07-28-2009 [facility] ASS[employer]Y PACEMAKER FDA Start: 09-21-2020 [facility] FDA Start: 07-28-2009 [facility] FDA Start: 07-28-2009 [facility] ASS[employer] PACEMAKER FDA Start: 09-21-2020 [facility] FDA Start: 07-28-2009 [facility] FDA Start: 07-28-2009 [facility] ASS[employer]Y PACEMAKER FDA Start: 09-21-2020 [facility] FDA Start: 07-28-2009 [facility] FDA Start: 07-28-2009 [facility] ASSURIY PACEMAKER FDA Start: 09-21-2020 [facility] FDA Start: 07-28-2009 [facility] FDA Start: 07-28-2009 [facility] ASSURIY PACEMAKER FDA Start: 09-21-2020 [facility] FDA Start: 07-28-2009 [facility] FDA Start: 07-28-2009 [facility] ASSURIY PACEMAKER FDA Start: 09-21-2020 [facility] FDA Start: 07-28-2009 [facility] FDA Start: 07-28-2009 [facility] ASSURIY PACEMAKER FDA Start: 09-21-2020 [facility] FDA Start: 07-28-2009 [facility] FDA Start: 07-28-2009 [facility] ASSURIY PACEMAKER FDA Start: 09-21-2020 [facility] FDA Start: 07-28-2009 [facility] FDA Start: 07-28-2009 [facility] ASSURIY PACEMAKER FDA Start: 09-21-2020 [facility] FDA Start: 07-28-2009 [facility] FDA Start: 07-28-2009 [facility] ASSURIY PACEMAKER FDA Start: 09-21-2020 [facility] FDA Start: 07-28-2009 [facility] FDA Start: 07-28-2009 [facility] ASSURIY PACEMAKER FDA Start: 09-21-2020 [facility] FDA Start: 07-28-2009 [facility] FDA Start: 07-28-2009 [facility] ASSURIY PACEMAKER FDA Start: 09-21-2020 [facility] FDA Start: 07-28-2009 [facility] FDA Start: 07-28-2009 [facility] ASSURIY PACEMAKER FDA Start: 09-21-2020 [facility] FDA Start: 07-28-2009 [facility] FDA Start: 07-28-2009 [facility] ASSURIY PACEMAKER FDA Start: 09-21-2020 [facility] FDA Start: 07-28-2009 [facility] FDA Start: 07-28-2009 [facility] ASSURIY PACEMAKER FDA Start: 09-21-2020 [facility] FDA Start: 07-28-2009 [facility] FDA Start: 07-28-2009 [facility] ASS[employer]Y PACEMAKER FDA Start: 09-21-2020 [facility] FDA Start: 07-28-2009 [facility] FDA Start: 07-28-2009 [facility] ASS[employer]Y PACEMAKER FDA Start: 09-21-2020 [facility] FDA Start: 07-28-2009 [facility] FDA Start: 07-28-2009 [facility] ASS[employer]Y PACEMAKER FDA Start: 09-21-2020 [facility] FDA Start: 07-28-2009 [facility] FDA Start: 07-28-2009 [facility] ASSURIY PACEMAKER FDA Start: 09-21-2020 [id number] [employer] [id number] Start: 07-04-2011 [facility] FDA Start: 07-28-2009 [facility] FDA Start: 07-28-2009 [facility] ASS[employer]Y PACEMAKER FDA Start: 09-21-2020 [facility] FDA Start: 07-28-2009 [facility] FDA Start: 07-28-2009 [facility] [employer]Y PACEM[employer]ER FDA Start: 09-21-2020 [facility] FDA Start: 07-28-2009 [facility] FDA Start: 07-28-2009 [facility] ASS[employer]Y PACEMAKER FDA Start: 09-21-2020 [facility] FDA Start: 07-28-2009 [facility] FDA Start: 07-28-2009 [facility] ASS[employer]Y PACEMAKER FDA Start: 09-21-2020 [facility] FDA Start: 07-28-2009 [facility] FDA Start: 07-28-2009 [facility] ASS[employer]Y PACEMAKER FDA Start: 09-21-2020 [facility] FDA Start: 07-28-2009 [facility] FDA Start: 07-28-2009 [facility] [employer]Y PACEM[employer]ER FDA Start: 09-21-2020 [facility] FDA Start: 07-28-2009 [facility] FDA Start: 07-28-2009 [facility] [employer]Y PACEMAKER FDA Start: 09-21-2020 Goals Date Patient Goal Desired Activity /State Functional Status Date Assessment Result Facility 07-25-2023 Functional status Ambulates [facility] Work Phone: 02-23-2022 Functional status Up ad sintia [facility] Work Phone: 02-22-2022 Functional status Tolerates Activity Well [facility] Work Phone: 12-20-2021 Functional status Ambulates [facility] Work Phone: 12-15-2021 Functional status Activity Abili ty With Assist of 1 [facility] Work Phone: 12-14-2021 Functional status Ambulates;Bath room Privilege [facility] Work Phone: 11-06-2020 Are you deaf, or do you have serious difficulty hearing No 11/06/2020 7:08 PM Mulu Brock RN No [facility] 11-06-2020 Are you blind, or do you have serious difficulty seeing, even when wearing glasses No 11/06/2020 7:08 PM Mulu Brock, PRAVIN No [facility] 11-06-2020 Do you have serious difficulty walking or climbing stairs Yes 11/06/2020 7:08 PM Mulu Brock, RN Yes [facility] 11-06-2020 Do you have difficul ty dressing or bathing Yes 11/06/2020 7:08 PM Mulu Brock, RN Yes [facility] 11-06-2020 Because of a physica l, mental, or emotional condition, do you have difficulty doing errands alone such as visiting a physician's office or shopping Yes 11/06/2020 7:08 PM Mulu Brokc, PRAVIN Yes [facility] Mental Status Date Assessment Result Facility 07-25-2023 Cognitive function Voice/Name [facility] Work Phone: 06-25-2023 Cognitive function Level Of Cons ciousness Awake;Alert;Appropriate [facility] Work Phone: 05-30-2022 Cognitive function Level Of Cons ciousness Awake;Alert;Appropriate;Fol lows Commands [facility] Work Phone: 02-22-2022 Cognitive function Voice/Name [facility] Work Phone: 02-16-2022 Cognitive function Level Of Cons ciousness Drowsy;Responds to painful stimuli [facility] Work Phone: 12-20-2021 Cognitive function Voice/Name [facility] Work Phone: 12-15-2021 Cognitive function Voice/Name [facility] Work Phone: 11-06-2020 Because of a physica l, mental, or emotional condition, do you have serious difficulty concentrating, remembering, or making decisions Yes 11/06/2020 7:08 PM EDT Mulu Nielsen RN Yes [facility] Clinical Notes 07-23-2009 to 04-03-2025 Enio Ridley Mammo Tech - 04/03/2025 12:30 PM EDTLouis Dobbs MD - 03/24/2025 12:53 PM EDTTelephone Encounter - Karen Durham LPN - 02/11/2025 11:04 AM EDTPatient Instructions Note Date & Type Note Facility 04-03-2025 History of Present illness Narrative Radiology Service Progress Note PATIENT NAME: rFoilan García DATE OF SERVICE: April 03, 2025 TIME: 2:24 PM PATIENT IDENTITY VERIFICATION COMPLETED USING TWO (2) IDENTIFIERS: Name and Date of confirmed by patient verbally. FALL SCREENING: Has the patient had 2 falls in the last year or 1 fall with injury or currently using an Ambulatory Assistive Device (Walker, Cane, Wheelchair, Crutches, etc.)? Yes, Patient High Risk for Falls What interventions were put in place to prevent falls during this visit? Offered Assistance with Transfers/Clothing, Instructed Patient to Remain Seated (Not on Exam Table) Until Exam, and Increased Observations by Caregivers PATIENT GENDER DATA: Assigned female at . status: : No status: NO. PATIENT RELEVANT IMPLANT DATA REVIEWED: Not Applicable PATIENT PRESENTS WITH AN IMPLANTABLE OR ATTACHED SBA BUSINESS DEVELOPMENT OFFICER: No RADIOLOGY DEPARTMENT: Mammography PERIPHERAL IV DATA: Not applicable SIGNED BY: Jonathan Jewell April 03, 2025 2:24 PM documented in this encounter [facility] 04-03-2025 Note HNO ID: [id number] Author: ENIO RIDLEY Mammo Tech Service: ? Author Type: Technologist Type: Progress Notes Filed: 04/03/2025 14:24 Note Text: Radiology Service Progress Note PATIENT NAME: Froilan García DATE OF SERVICE: April 03, 2025 TIME: 2:24 PM PATIENT IDENTITY VERIFICATION COMPLETED USING TWO (2) IDENTIFIERS: Name and Date of confirmed by patient verbally. FALL SCREENING: Has the patient had 2 falls in the last year or 1 fall with injury or currently using an Ambulatory Assistive Device (Walker, Cane, Wheelchair, Crutches, etc.)? Yes, Patient High Risk for Falls What interventions were put in place to prevent falls during this visit? Offered Assistance with Transfers/Clothing, Instructed Patient to Remain Seated (Not on Exam Table) Until Exam, and Increased Observations by Caregivers PATIENT GENDER DATA: Assigned female at . status: : No status: NO. PATIENT RELEVANT IMPLANT DATA REVIEWED: Not Applicable PATIENT PRESENTS WITH AN IMPLANTABLE OR ATTACHED SBA BUSINESS DEVELOPMENT OFFICER: No RADIOLOGY DEPARTMENT: Mammography PERIPHERAL IV DATA: Not applicable SIGNED BY: Jonathan Jewell April 03, 2025 2:24 PM [facility] 03-24-2025 Note HNO ID: [id number] Author: LOUIS DOBBS MD Service: ? Author Type: Physician Type: Progress Notes Filed: 03/24/2025 13:59 Note Text: Subjective Froilan García is a 59 year old female. Patient presents with: F/U 3 Month Patient was seen by our GRAPHICS MANAGER 02/04/25 for gait abnormality. She was trying to get a powered wheelchair. She had no recent falls. She had a functional evaluation 03/06/25. She now needs a PT evaluation for the powered mobility device, and order was sent this month. She had chronic sequelae of cerebral vascular accident but was unable to travel [place] to see neurology. She complained of chronic pains in both her plantar feet, and her lateral thighs on both sides, like pins and needles. She was prescribed gabapentin, and amitriptyline which made her too sedate, so she stopped these and was not interested in trying more medications at this time. 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) Ckd (Chronic Kidney Disease) Stage 3, Gfr 30-59 Ml/Min ([facility]) Obesity, Class I, Bmi 30-34.9 Urge Incontinence Brain Aneurysm ([facility]) Hemiparesis Due to Old Cerebrovascular Accident ([facility]) Unsteady Gait Hypertensive Kidney Disease With Stage 3 Chronic Kidney Disease ([facility]) Anxiety Gastroesophageal Reflux Disease Without Esophagitis Hyperlipidemia Dementia ([facility]) Bilateral Lower Extremity Pain Social History Tobacco Use Smoking status: Former Current packs/day: 1.00 Average packs/day: 1 pack/day for 34.5 years (34.5 ttl pk-yrs) Types: Cigarettes Start date: 1990 Smokeless tobacco: Never Substance Use Topics Alcohol use: No Drug use: No Current Outpatient Medications Medication Sig furosemide (LASIX) 40 mg tablet Take 40 mg by mouth once daily. POTASSIUM-99 ORAL Take 99 mg by mouth once daily. ELIQUIS 5 mg tab(s) Take 5 mg by mouth. acetaminophen (TYLENOL) 500 mg tablet Take 1 tablet by mouth three times daily as needed for pain. amLODIPine (NORVASC) 10 mg tablet Take 1 tablet by mouth once daily. Cholecalciferol, Vitamin D3, 125 mcg (5,000 unit) cap Take 1 capsule by mouth once daily. pantoprazole DR (PROTONIX) 20 mg tablet Take 1 tablet by mouth daily before breakfast. Take on empty stomach, 1/2 hr before meal. rosuvastatin (CRESTOR) 5 mg tablet Take 1 tablet by mouth once daily. nystatin (MYCOSTATIN) powder Apply 1 application to affected area four times a day as needed. No current facility-administered medications for this visit. Review of Systems Constitutional: Negative for fatigue and fever. Respiratory: Negative for shortness of breath. Cardiovascular: Negative for chest pain, palpitations and leg swelling. Musculoskeletal: Positive for gait problem. Neurological: Positive for weakness. Psychiatric/Behavioral: Positive for confusion. Objective BP 110/70 (BP Site: Left Arm, BP Position: Sitting, BP Cuff Size: Large Adult) Pulse 80 Resp 16 Wt 84.3 kg (185 lb 13.6 oz) LMP (LMP Unknown) BMI 31.90 kg/m? Physical Exam Constitutional: General: She is not in acute distress. Appearance: She is obese. HENT: Head: Normocephalic. Eyes: Extraocular Movements: Extraocular movements intact. Conjunctiva/sclera: Conjunctivae normal. Cardiovascular: Rate and Rhythm: Normal rate and regular rhythm. Pulses: Normal pulses. Heart sounds: No murmur heard. No gallop. Pulmonary: Breath sounds: Normal breath sounds. Abdominal: Palpations: Abdomen is soft. Tenderness: There is no abdominal tenderness. Neurological: General: No focal deficit present. Mental Status: She is alert. Cranial Nerves: Dysarthria present. Motor: Weakness present. Gait: Gait abnormal. Comments: 1) Right hemiparesis. 2) Paraparesis of both legs 3/5. 3) Bilateral foot drop. 4) Unsteady gait with cane. ASSESSMENT/PLAN: 1. Primary hypertension - ICD9: 401.9, ICD10: I10 (primary diagnosis) - Controlled - Continue current medications - Recommend home blood pressure monitoring, to bring results to next visit - Encouraged sodium restriction, DASH or Mediterranean diet - Recommend regular aerobic exercise - AMLODIPINE 10 MG TABLET 2. Gastroesophageal reflux disease without esophagitis - ICD9: 530.81, ICD10: K21.9 - Controlled. - PANTOPRAZOLE 20 MG TABLET,DELAYED RELEASE 3. Hyperlipidemia, unspecified hyperlipidemia type - ICD9: 272.4, ICD10: E78.5 - Controlled - Continue current medications - ROSUVASTATIN 5 MG TABLET 4. Hemiparesis due to old cerebrovascular accident (HCC) - ICD9: 438.20, ICD10: I69.359 - Chronic. - CONSULT TO NEUROLOGY (Dr. Mikayla Adkins). 5. Unsteady gait - ICD9: 781.2, ICD10: R26.81 - Wait for PT evaluation needed (more content not included)... [facility] 03-24-2025 History of Present illness Narrative Subjective Froilan García is a 59 year old female. Patient presents with: F/U 3 Month Patient was seen by our GRAPHICS MANAGER 02/04/25 for gait abnormality. She was trying to get a powered wheelchair. She had no recent falls. She had a functional evaluation 03/06/25. She now needs a PT evaluation for the powered mobility device, and order was sent this month. She had chronic sequelae of cerebral vascular accident but was unable to travel [place] to see neurology. She complained of chronic pains in both her plantar feet, and her lateral thighs on both sides, like pins and needles. She was prescribed gabapentin, and amitriptyline which made her too sedate, so she stopped these and was not interested in trying more medications at this time. 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) Ckd (Chronic Kidney Disease) Stage 3, Gfr 30-59 Ml/Min ([facility]) Obesity, Class I, Bmi 30-34.9 Urge Incontinence Brain Aneurysm ([facility]) Hemiparesis Due to Old Cerebrovascular Accident ([facility]) Unsteady Gait Hypertensive Kidney Disease With Stage 3 Chronic Kidney Disease (Hcc) Anxiety Gastroesophageal Reflux Disease Without Esophagitis Hyperlipidemia Dementia (Hcc) Bilateral Lower Extremity Pain Social History Tobacco Use Smoking status: Former Current packs/day: 1.00 Average packs/day: 1 pack/day for 34.5 years (34.5 ttl pk-yrs) Types: Cigarettes Start date: 1990 Smokeless tobacco: Never Substance Use Topics Alcohol use: No Drug use: No Current Outpatient Medications Medication Sig furosemide (LASIX) 40 mg tablet Take 40 mg by mouth once daily. POTASSIUM-99 ORAL Take 99 mg by mouth once daily. ELIQUIS 5 mg tab(s) Take 5 mg by mouth. acetaminophen (TYLENOL) 500 mg tablet Take 1 tablet by mouth three times daily as needed for pain. amLODIPine (NORVASC) 10 mg tablet Take 1 tablet by mouth once daily. Cholecalciferol, Vitamin D3, 125 mcg (5,000 unit) cap Take 1 capsule by mouth once daily. pantoprazole DR (PROTONIX) 20 mg tablet Take 1 tablet by mouth daily before breakfast. Take on empty stomach, 1/2 hr before meal. rosuvastatin (CRESTOR) 5 mg tablet Take 1 tablet by mouth once daily. nystatin (MYCOSTATIN) powder Apply 1 application to affected area four times a day as needed. No current facility-administered medications for this visit. Review of Systems Constitutional: Negative for fatigue and fever. Respiratory: Negative for shortness of breath. Cardiovascular: Negative for chest pain, palpitations and leg swelling. Musculoskeletal: Positive for gait problem. Neurological: Positive for weakness. Psychiatric/Behavioral: Positive for confusion. Objective BP 110/70 (BP Site: Left Arm, BP Position: Sitting, BP Cuff Size: Large Adult) Pulse 80 Resp 16 Wt 84.3 kg (185 lb 13.6 oz) LMP (LMP Unknown) BMI 31.90 kg/m Physical Exam Constitutional: General: She is not in acute distress. Appearance: She is obese. HENT: Head: Normocephalic. Eyes: Extraocular Movements: Extraocular movements intact. Conjunctiva/sclera: Conjunctivae normal. Cardiovascular: Rate and Rhythm: Normal rate and regular rhythm. Pulses: Normal pulses. Heart sounds: No murmur heard. No gallop. Pulmonary: Breath sounds: Normal breath sounds. Abdominal: Palpations: Abdomen is soft. Tenderness: There is no abdominal tenderness. Neurological: General: No focal deficit present. Mental Status: She is alert. Cranial Nerves: Dysarthria present. Motor: Weakness present. Gait: Gait abnormal. Comments: 1) Right hemiparesis. 2) Paraparesis of both legs 3/5. 3) Bilateral foot drop. 4) Unsteady gait with cane. ASSESSMENT/PLAN: 1. Primary hypertension - ICD9: 401.9, ICD10: I10 (primary diagnosis) - Controlled - Continue current medications - Recommend home blood pressure monitoring, to bring results to next visit - Encouraged sodium restriction, DASH or Mediterranean diet - Recommend regular aerobic exercise - AMLODIPINE 10 MG TABLET 2. Gastroesophageal reflux disease without esophagitis - ICD9: 530.81, ICD10: K21.9 - Controlled. - PANTOPRAZOLE 20 MG TABLET,DELAYED RELEASE 3. Hyperlipidemia, unspecified hyperlipidemia type - ICD9: 272.4, ICD10: E78.5 - Controlled - Continue current medications - ROSUVASTATIN 5 MG TABLET 4. Hemiparesis due to old cerebrovascular accident (HCC) - ICD9: 438.20, ICD10: I69.359 - Chronic. - CONSULT TO NEUROLOGY (Dr. Mikayla Adkins). 5. Unsteady gait - ICD9: 781.2, ICD10: R26.81 - Wait for PT evaluation needed for powered mobility device. 6. Dementia with anxiety, unspecified dementia severity, unspecified dementia type (HCC) - ICD9: 294.21, ICD10: F03.94 - CONSULT TO NEUROLOGY 7. Asthma with chronic obstructive pulmonary disease (COPD) (HCC) - ICD9: 493.20, ICD10: J44.89 - Mild intermittent asthma stable - Continue current medications - Avoidance of triggers recommended - Symptoms controlled 8. Paroxysmal atrial fibrillation (HCC) - ICD9: 427.31, ICD10: I48.0 - Anticoagulated. 9. Hypertensive kidney disease with stage 3a chronic kidney disease (HCC) - ICD9: 403.90, 585.3, ICD10: I12.9, N18.31 - Controlled - Continue current medications - eGFR: 70 Stable - Counseled on avoiding NSAIDs, adequate hydration 10. Encounter for screening mammogram for malignant neoplasm of breast - ICD9: V76.12, ICD10: Z12.31 - KATHERINE SCREENING W ABHISHEK 11. History of anemia - ICD9: V12.3, ICD10: Z86.2 Discontinue iron tablet and vitamin C. 12. Candidal intertrigo - ICD9: 112.3, ICD10: B37.2 - NYSTATIN 100,000 UNIT/GRAM TOPICAL POWDER 13. Bilateral lower extremity pain - ICD9: 729.5, ICD10: M79.604, M79.605 - Neuropathic. - She HPI. See neurology. 14. 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ident (CVA) - ICD9: 438.12, ICD10: I69.321 - CONSULT TO NEUROLOGY 15. Brain aneurysm (HCC) - ICD9: 437.3, ICD10: I67.1 - CONSULT TO NEUROLOGY Louis Dobbs MD documented in this encounter [facility] 02-28-2025 Note HNO ID: [id number] Author: JUDY HAYWOOD APRN.CONTRACT GRAPHIC DESIGNER Service: ? Author Type: Nurse Practitioner Type: Progress Notes Filed: 02/28/2025 09:14 Note Text: Functional capacity evaluation completed by Occupational Health. Results reviewed and consistent with requirements for power mobility device Judy Haywood APRN.CNP [facility] 02-13-2025 Procedure note [facility] 02-11-2025 Telephone encounter Note Order has been placed and filed and faxed to [facility] to schedule locally for functional capacity testing. [facility] to call patient with appt. Karen Durham LPN [facility] 02-11-2025 Miscellaneous Notes Order has been placed and filed and faxed to [facility] to schedule locally for functional capacity testing. [facility] to call patient with appt. Karen Durham LPN PATIENT needs an other for a functional capacity test and needs scheduled as soon as we can. Please call patient when scheduled Karen Durham LPN documented in this encounter [facility] 02-11-2025 Telephone encounter Note PATIENT needs an other for a functional capacity test and needs scheduled as soon as we can. Please call patient when scheduled Karen Durham LPN [facility] 02-11-2025 Telephone encounter Note Patient scheduled with me today at 1 pm for mobility exam for scooter. I just saw her for this last week, the forms can be completed from that encounter. Judy Haywood APRN.DANNY [facility] 02-11-2025 Miscellaneous Notes Patient scheduled with me today at 1 pm for mobility exam for scooter. I just saw her for this last week, the forms can be completed from that encounter. Judy Haywood APRN.DANNY documented in this encounter [facility] 02-04-2025 Telephone encounter Note Patient calls to let provider know that her orders for power operated vehicle needs to be sent to [facility]. She has checked with insurance and the chair would be covered through them. Patient requests orders be faxed with a note saying their billing needs to go through [facility] Medicaid. Faxed with request to [phone]. Confirmation that fax when through received. PH: [phone]. Nothing further needed at this time. Closing TE. Kristy Blanco RN [facility] 02-04-2025 Miscellaneous Notes Patient calls to let provider know that her orders for power operated vehicle needs to be sent to [facility]. She has checked with insurance and the chair would be covered through them. Patient requests orders be faxed with a note saying their billing needs to go through [facility] Medicaid. Faxed with request to [phone]. Confirmation that fax when through received. PH: [phone]. Nothing further needed at this time. Closing TE. Kristy Blanco RN documented in this encounter [facility] 02-04-2025 Instructions Judy Haywood APRN.DANNY - 02/04/2025 1:19 PM EDT We discussed your mobility concerns and the need for a scooter: - A scooter may be covered by insurance if it is required for mobility within your home, such as moving between your bed, bathroom, and kitchen. It will not be covered for use outside the home, such as for grocery shopping or other activities. We discussed your current physical limitations and care needs: - You reported ongoing right-sided weakness from your stroke, difficulty maintaining balance, and challenges with tasks such as cooking and showering. You currently require assistance from your nurse for daily activities, including bathing. - You are using lidocaine cream on your feet nightly to manage pain, which you noted has been helpful. Continue this as needed. We discussed your leg and ankle pain: - You described stabbing, achy pain in your ankles and legs, which is sometimes severe. Your nurse has been assisting with massage to alleviate discomfort. Please continue this practice and let us know if the pain worsens or becomes unmanageable. - Consider scheduling an appointment with a neurologist for further evaluation of your symptoms. Let us know if you would like assistance with this referral. documented in this encounter [facility] 02-04-2025 Note HNO ID: [id number] Author: JUDY HAYWOOD APRN.DANNY Service: ? Author Type: Nurse Practitioner Type: Progress Notes Filed: 02/11/2025 10:55 Note Text: CC: Patient presents with: Neuropathy: Bilateral foot pain, and strokes discuss getting scooter HPI Recording using [employer] software for draft documentation of the visit was discussed with the patient/authorized customer retention representative; all questions welcomed and answered. Patient/authorized customer retention representative agreed to proceed Froilan García is a 59-year-old female with a history of CVA, neuropathy, and tardive dyskinesia, presenting for mobility exam in consideration for a scooter. Froilan reports significant mobility challenges within her home, attributing her difficulties to a history of CVA, neuropathy, and residual effects from brain aneurysm clips. She experiences right-sided weakness and paralysis secondary to the CVA, which affects her ability to move around her home safely. Froilan also has a history of tardive dyskinesia, affecting her hand movements. She is currently utilizing a cane for ambulation however finds it difficult secondary to tardive dyskinesia and right sided residual weakness. She notes that her mobility issues have progressively worsened leading to multiple falls while trying to navigate her house even when using the cane. Froilan requires assistance with activities of daily living (ADLs) such as cooking and bathing. She is unable to cook due to instability at the stove and cannot shower independently, requiring the presence of a nurse for safety. She denies any pressure ulcers on her bottom and is able to shift her weight independently when sitting. She is also able to safely transfer herself to and from equipment. Froilan experiences leg pain, describing it as achy, stabbing needles in her ankles. She has been using lidocaine on the bottom of her feet at night, which she finds helpful. She is not currently seeing a neurologist and mentions that she would have to leave her current location to do so, which is a barrier for her. Pain is also affecting her mobility. Review of Systems See HPI PAST MEDICAL HISTORY Diagnosis Date Acute kidney failure 2004 LISINOPRIL related. Acute, but ill-defined, cerebrovascular disease 11/07/2008 Right hemiparesis, embolic Agoraphobia with panic disorder 12/19/2006 Counselor from [facility] Anemia 2013 Asthma with COPD with exacerbation (HCC) Bipolar disorder ([facility]) 2000 Cerebral aneurysm (HCC) 10/11/2020 Chronic diarrhea 07/12/2016 Chronic rheumatic endocarditis 11/07/2008 Treated for Infective endocarditis Congestive heart failure (HCC) COVID-19 02/2022 CVA (cerebral vascular accident) (HCC) 10/11/2020 Depressive disorder, not elsewhere classified 12/19/2006 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ident (CVA) 05/11/2017 Essential hypertension 11/23/2008 Gastroesophageal reflux disease without esophagitis Generalized anxiety disorder Anxiety, Generalized Heart valve replaced 2008 Velasco II Porcine Heart Valve Hemiparesis due to old cerebrovascular accident (HCC) Hyperlipidemia 10/24/2022 Hyperlipidemia, unspecified hyperlipidemia type Intracerebral aneurysm (HCC) 10/11/2020 stented, coiled x 2 retirement (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 anticoagulants 11/23/2008 Menorrhagia 2012 Mitral regurgitation 11/27/2008 Rheumatic valvular heart disease. Presumed nfective endocarditis, treated with IV antibiotics, complicated by a stroke. Underwent MVR (#27 Medtronic Velasco bioprosthesis) with Dr Stephan Morales at [facility] on 07/23/2009. Moderate dysplasia of cervix Other and unspecified mitral valve diseases 11/27/2008 Rheumatic valvular heart disease. Pacemaker malfunction 07/01/2011 Paroxysmal atrial fibrillation (HCC) 10/31/2013 Primary hypertension Psychosis (HCC) 10/01/2014 Dr. Jonathon Kulk[facility] Trilafon at . Sick sinus syndrome (HCC) 2008 PPM Sigmoid diverticulitis 08/11/2016 colon narrowing, resected Tardive dyskinesia 08/18/2015 Tobacco use disorder 12/19/2006 Unspecified asthma(493.90) 12/19/2006 Unspecified essential hypertension 11/23/2008 Unspecified urinary incontinence PAST SURGICAL HISTORY Procedure Laterality Date DELIVERY ONLY 11/2008 , low cervical COLECTOMY PRTL W/COLOPROCTOSTOMY 08/11/2016 COLONOSCOPY FLX DX W/COLLJ SPEC WHEN PFRMD 12/22/2014 Repeat 2024 COLONOSCOPY FLX DX W/COLLJ SPEC WHEN PFRMD 07/12/2016 repeat colonoscopy in one year CONIZATION CERVIX W/WO DANDC RPR ELTRD EXC 1997 [address]RETHROS[address] Freire EGD 02/22/2022 erosive esophagitis, gastritis, multiple duodenal ulcers no bleeding ENDOMETRIAL BX W/WO ENDOCERVIX BX W/O DILAT SPX 08/14/2013 IR EMBOLIZATION ARTERIAL / MAPPING ([place]) 10/29/2020 right inferior mesenteric artery IR VASCULAR ACCESS TEAM PICC INSERTION RADIO 10/26/2020 NIL ANEURYSM COILING MAINTENANCE ELECTRICIAN Left 10/17/2020 le (more content not included)... [facility] 02-04-2025 History of Presen t illness Narrative CC: Patient presents with: Neuropathy: Bilateral foot pain, and strokes discuss getting scooter HPI Recording using [employer] software for draft documentation of the visit was discussed with the patient/authorized customer retention representative; all questions welcomed and answered. Patient/authorized customer retention representative agreed to proceed Froilan García is a 59-year-old female with a history of CVA, neuropathy, and tardive dyskinesia, presenting for evaluation of mobility issues and consideration for a scooter. Froilan reports significant mobility challenges within her home, attributing her difficulties to a history of CVA, neuropathy, and residual effects from aneurysm clips. She notes that her mobility issues worsened after the placement of the aneurysm clips, stating, I wasn't this off until those happened. She experiences right-sided weakness and paralysis secondary to the CVA, which affects her ability to move around her home safely. She has had multiple falls while trying to navigate her house. Froilan also has a history of tardive dyskinesia, affecting her hand movements. She is able to use her hands to some extent but finds it difficult to use a cane. Froilan requires assistance with activities of daily living (ADLs) such as cooking and bathing. She is unable to cook due to instability at the stove and cannot shower independently, requiring the presence of a nurse for safety. She denies any pressure ulcers on her bottom and is able to shift her weight independently when sitting. Froilan experiences leg pain, describing it as achy, stabbing needles in her ankles. She has been using lidocaine on the bottom of her feet at night, which she finds helpful. She is not currently seeing a neurologist and mentions that she would have to leave her current location to do so, which is a barrier for her. Pain is also affecting her mobility. Review of Systems See HPI PAST MEDICAL HISTORY Diagnosis Date Acute kidney failure 2004 LISINOPRIL related. Acute, but ill-defined, cerebrovascular disease 11/07/2008 Right hemiparesis, embolic Agoraphobia with panic disorder 12/19/2006 Counselor from counseling center Anemia 2013 Asthma with COPD with exacerbation ([facility]) Bipolar disorder ([facility]) 2000 Cerebral aneurysm (HCC) 10/11/2020 Chronic diarrhea 07/12/2016 Chronic rheumatic endocarditis 11/07/2008 Treated for Infective endocarditis Congestive heart failure (HCC) COVID-19 02/2022 CVA (cerebral vascular accident) (HCC) 10/11/2020 Depressive disorder, not elsewhere classified 12/19/2006 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ident (CVA) 05/11/2017 Essential hypertension 11/23/2008 Gastroesophageal reflux disease without esophagitis Generalized anxiety disorder Anxiety, Generalized Heart valve replaced 2008 Velasco II Porcine Heart Valve Hemiparesis due to old cerebrovascular accident (HCC) Hyperlipidemia 10/24/2022 Hyperlipidemia, unspecified hyperlipidemia type Intracerebral aneurysm (HCC) 10/11/2020 stented, coiled x 2 retirement (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 anticoagulants 11/23/2008 Menorrhagia 2012 Mitral regurgitation 11/27/2008 Rheumatic valvular heart disease. Presumed nfective endocarditis, treated with IV antibiotics, complicated by a stroke. Underwent MVR (#27 Medtronic Velasco bioprosthesis) with Dr Stephan Morales at [facility] on 07/23/2009. Moderate dysplasia of cervix Other and unspecified mitral valve diseases 11/27/2008 Rheumatic valvular heart disease. Pacemaker malfunction 07/01/2011 Paroxysmal atrial fibrillation (HCC) 10/31/2013 Primary hypertension Psychosis (HCC) 10/01/2014 Dr. Jonathon Kulkarni, the [facility]. Trilafon at . Sick sinus syndrome (HCC) 2008 PPM Sigmoid diverticulitis 08/11/2016 colon narrowing, resected Tardive dyskinesia 08/18/2015 Tobacco use disorder 12/19/2006 Unspecified asthma(493.90) 12/19/2006 Unspecified essential hypertension 11/23/2008 Unspecified urinary incontinence PAST SURGICAL HISTORY Procedure Laterality Date DELIVERY ONLY 11/2008 , low cervical COLECTOMY PRTL W/COLOPROCTOSTOMY 08/11/2016 COLONOSCOPY FLX DX W/COLLJ SPEC WHEN PFRMD 12/22/2014 Repeat 2024 COLONOSCOPY FLX DX W/COLLJ SPEC WHEN PFRMD 07/12/2016 repeat colonoscopy in one year CONIZATION CERVIX W/WO D&C RPR ELTRD EXC 1996 CYSTOURETHROSCOPY [address] Freire EGD 02/22/2022 erosive esophagitis, gastritis, multiple duodenal ulcers no bleeding ENDOMETRIAL BX W/WO ENDOCERVIX BX W/O DILAT SPX 08/14/2013 IR EMBOLIZATION ARTERIAL / MAPPING (AK) 10/29/2020 right inferior mesenteric artery IR VASCULAR ACCESS TEAM PICC INSERTION RADIO 10/26/2020 NIL ANEURYSM COILING MAINTENANCE ELECTRICIAN Left 10/17/2020 left ant. cerebral art; basilar artery PACEMAKER (PM) 07/28/2009 dual chamber REPLACEMENT MITRAL VALVE W/CARDIOPULMONARY BYP 07/23/2009 Velasco II Porcine Heart Valve TUBAL LIGATION, 2008 ALLERGIES Lisinopril, Amoxicillin, Cipro [Ciprofloxacin], Gabapentin, Latex, Penicillins, and Venom-Honey Bee MEDICATIONS amLODIPine (NORVASC) 10 mg tablet Take 1 tablet by mouth once daily. Cholecalciferol, Vitamin D3, 125 mcg (5,000 unit) cap Take 1 capsule by mouth once daily. ferrous sulfate 325 mg (65 mg iron) tablet Take 1 tablet by mouth two times a day with meals. pantoprazole DR (PROTONIX) 20 mg tablet Take 1 tablet by mouth daily before breakfast. Take on empty stomach, 1/2 hr before meal. rosuvastatin (CRESTOR) 5 mg tablet Take 1 tablet by mouth once daily. ascorbic acid, vitamin C, (VITAMIN C) 500 mg tablet Take 1 tablet by mouth two times a day. nystatin (MYCOSTATIN) powder Apply 1 application to affected area four times a day as needed. furosemide (LASIX) 40 mg tablet Take 40 mg by mouth once daily. POTASSIUM-99 ORAL Take 99 mg by mouth once daily. ELIQUIS 5 mg tab(s) Take 5 mg by mouth. acetaminophen (TYLENOL) 500 mg tablet Take 1 tablet by mouth three times daily as needed for pain. FAMILY HISTORY Problem Relation Age of Onset Arthritis Mother Hypertension Mother Breast Cancer Mother mets to lung Heart Father Hypertension Father Psychiatry Father DEPRESSION Thyroid Father Hypertension Sister Colon Cancer Brother early 40's Breast Cancer Brother 30's Asthma Son Diabetes Maternal Aunt Diabetes Paternal Aunt Diabetes Paternal Uncle Social History Tobacco Use Smoking status: Former Average packs/day: 0.5 packs/day for 27.0 years (13.5 ttl pk-yrs) Types: Cigarettes Start date: 07/30/2023 Smokeless tobacco: Never Substance Use Topics Alcohol use: No Drug use: No BP 110/68 Pulse 92 Resp 14 Wt 85.9 kg (189 lb 6 oz) LMP (LMP Unknown) SpO2 98% BMI 32.51 kg/m Physical Exam Vitals reviewed. Constitutional: Appearance: Normal appearance. Cardiovascular: Rate and Rhythm: Normal rate and regular rhythm. Heart sounds: Normal heart sounds. Pulmonary: Effort: Pulmonary effort is normal. Breath sounds: Normal breath sounds. No wheezing, rhonchi or rales. Musculoskeletal: Right lower leg: Tenderness present. No swelling. Left lower leg: Tenderness present. No swelling. Skin: General: Skin is warm and dry. Findings: No wound. Neurological: Mental Status: She is alert and oriented to person, place, and time. Motor: Weakness (3+/5 LUE and LLE; 4/5 RUE and RLE) present. Coordination: Coordination is intact. Gait: Gait abnormal (ataxic on the right, unsteady; difficulty ambulating even with cane). Deep Tendon Reflexes: Reflexes are normal and symmetric. Psychiatric: Mood and Affect: Mood and affect normal. Behavior: Behavior normal. Cognition and Memory: Cognition normal. Judgment: Judgment normal. Assessment/Plan 1. Abnormality of gait as late effect of stroke (I69.398) Hemiparesis due to old cerebrovascular accident (HCC) (I69.359) Residual right-sided hemiparesis and gait abnormalities secondary to previous cerebrovascular accident. Patient demonstrates ability to shift weight in a chair and has some control over hand movements, though limited by neuropathy and tardive dyskinesia. Unable to use a manual wheelchair or scooter but can safely use a power wheelchair or scooter - Discussed potential benefits of a mobility scooter for in-home use to assist with ADLs. 2. Brain aneurysm (HCC) (I67.1) History of brain aneurysm with surgical clipping. Patient reports increased mobility issues post-procedure. 3. Urge incontinence (N39.41) Experiencing episodes of incontinence, particularly at night, leading to skin irritation. - Recommended use of protective barriers to prevent skin irritation. 4. Impaired mobility and ADLs (Z74.09) Frequent falls (R29.6) Significant impairment in mobility and ADLs due to multiple factors including stroke and neuropathy. Requires assistance for basic tasks such as cooking and showering. Reports frequent falls, particularly when attempting to move slowly. - Discussed the need for a mobility scooter to assist with in-home mobility and reduce fall risk. 5. Neuropathy (G62.9) Neuropathy affecting motor function and contributing to mobility issues. Reports severe pain in ankles and feet, described as achy, stabbing needles. - Continue use of topical lidocaine for pain management. I spent a total of 30 minutes on the date of the service which included preparing to see the patient, [id number] patient care, completing clinical documentation, performing a medically appropriate examination, counseling and educating the patient/family/caregiver, ordering medications, tests, or procedures, and care coordination (not separately reported). Prescription instructions reviewed with patient as applicable. Potential red flag symptoms discussed with the patient. Reviewed appropriate action plan to take if red flag symptoms occur. Patient agreeable to treatment plan. Judy Haywood APRN.CONTRACT GRAPHIC DESIGNER documented in this encounter [facility] 01-13-2025 Radiology Diagnostic study note [facility] Imaging Services [address] [place], [place] [id number] Spine Cervical without Contras MR#: [id number] Acct: [id number] Name: FROILAN GARCÍA Rep #: [id number] : 1965 F 59 From: Valentina Baker MD PCP: Dr. Louis Dobbs MD Status: P RE ER Study:Spine Cervical without Contras Date of Exam: 01/13/25 Exam# [id number] Ordering Dr: Peter Blue DO PROCEDURE: SPINE CERVICAL WITHOUT CONTRAS 01/13/2025 REASON FOR EXAM: HEAD INJURY TECHNIQUE: Cervical spine CT without contrast. Coronal and Sagittal reconstruction series were provided. One or more dose reduction techniques were used (e.g., Automated exposure control, adjustment of the mA and/or kV according to patient size, use of iterative reconstruction technique RADIATION DOSE SUMMARY: CTDlvol: 18 mGy DLP: 370 mGycm COMPARISON: Same-day CT head, CTA head and neck 10/08/2020. FINDINGS: Alignment: Mild straightening of the normal cervical lordosis. No traumatic listhesis. Vertebrae: No acute fracture. Mild multilevel vertebral body height loss. Moderate multilevel degenerative disc disease with posterior disc osteophyte complexes and uncovertebral and facet hypertrophy resulting in mild multilevel central and moderate multilevel neural foraminal stenosis. Soft Tissues: No prevertebral or subcutaneous hematoma. Partially visualized left chest wall pacemaker device. Partially visualized coil embolization of the basilar tip. CT/Spine Cervical without Contras IMPRESSION: NO ACUTE CERVICAL FRACTURE. DEGENERATIVE CHANGES. Reading Location: [facility] CC: Dr. Hermila Blue DO; Dr. Louis Dobbs MD ~ Baster Hand: Signed [facility] 01-13-2025 Radiology Diagnostic study note [facility] Imaging Services [address] [place], [place] [id number] Brain/Head without Contrast MR#: [id number] Acct: [id number] Name: FROILAN GARCÍA Rep #: [id number] : 1965 F 59 From: Saad Lau MD PCP: Dr. Louis Dobbs MD Status: P RE ER Study:Brain/Head without Contrast Date of Exa m: 01/13/25 Exam# [id number] Ordering Dr: Peter Blue DO PROCEDURE: BRAIN/HEAD WITHOUT CONTRAST 01/13/2025 REASON FOR EXAM: HEAD INJURY TECHNIQUE: Head CT without intravenous contrast. Coronal and Sagittal reconstruction serieswere provided. One or more dose reduction techniques were used (e.g., Automated exposure control, adjustment of the mA and/or kV according to patient size, use of iterative reconstruction technique. RADIATION DOSE SUMMARY: CTDlvol: 47.06 mGy DLP: 890.33 mGycm COMPARISON: None FINDINGS: Brain: Low density in the periventricular white matter suggests mild chronic small vessel ischemic changes. Evidence of prior aneurysmal clipping in the region of the ztrxmc-wr-Bgmgir as well as the basilartip. This causes beam hardening artifact. Old bilateral cortical infarcts. CSF Spaces: Moderate generalized cerebral atrophy Sinuses/Mastoids: Unremarkable Bones: Unremarkable CT/Brain/Head without Contrast IMPRESSION: CHRONIC CHANGES. NO ACUTE FINDINGS. Prior aneurysmal clipping in the region of the lifkns-he-Klkcxl as well as the basilar tip. Reading Location: [facility] CC: Dr. Hermila Blue DO; Dr. Louis Dobbs MD ~ Baster Hand: Signed [facility] 01-10-2025 Telephone encounter Note Mailed letter to patient Frances Peterson MA [facility] 01-10-2025 Miscellaneous Notes Mailed letter to patient Frances Peterson MA Letter printed. Patient calls and states that she is now in a new apartment. Patient states that she is needing a letter that states that she can have a dog and a cat due to them being a emotional support animal. Patient asking if letter can be mailed out to her? Please review and advise, Melanie Vences RN documented in this encounter [facility] 01-10-2025 Telephone encounter Note Letter printed. [facility] 01-09-2025 Telephone encounter Note Patient calls and states that she is now in a new apartment. Patient states that she is needing a letter that states that she can have a dog and a cat due to them being a emotional support animal. Patient asking if letter can be mailed out to her? Please review and advise, Melanie Vences RN [facility] 01-07-2025 Telephone encounter Note Patient was notified Frances Peterson MA [facility] 01-07-2025 Miscellaneous Notes Patient was notified Frances Peterson MA I am going to start her on the lowest dose at 10 mg to minimize the chance of side effects, take at bedtime. This medication may not work as quickly as Gabapentin but the dose can be increased every 1-2 weeks. Call in two weeks if medication is not effective Judy Haywood APRN.DANNY Patient was notified and willing to try amitriptyline. Said gabapentin took nerve pain away but made dizzy Frances Peterson MA Noted. Does she want to try something else for the nerve pain? We had discussed a medication called Elavil (amitriptyline) previously. Judy Haywood APRN.CNP Patient calls and wanted provider to know that she is no longer taking the Gabapentin. Patient reports that she does not like how it made her feel. Melanie Vences RN documented in this encounter [facility] 01-07-2025 Telephone encounter Note I am going to start her on the lowest dose at 10 mg to minimize the chance of side effects, take at bedtime. This medication may not work as quickly as Gabapentin but the dose can be increased every 1-2 weeks. Call in two weeks if medication is not effective Judy Haywood APRN.CNP [facility] 01-07-2025 Telephone encounter Note Patient was notified and willing to try amitriptyline. Said gabapentin took nerve pain away but made dizzy Frances Peterson MA [facility] 01-07-2025 Telephone encounter Note Noted. Does she want to try something else for the nerve pain? We had discussed a medication called Elavil (amitriptyline) previously. Judy Haywood APRN.CONTRACT GRAPHIC DESIGNER [facility] 01-07-2025 Telephone encounter Note Patient calls and wanted provider to know that she is no longer taking the Gabapentin. Patient reports that she does not like how it made her feel. Melanie Vences RN [facility] 12-17-2024 Note Patient Outreach (IN TMWS) FROILAN GARCÍA ([id number]) 1965 F Date Time Provider Department 12/17/24 LOUIS DOBBS During your visit today, we recorded the following information about you: Allergies As of Date: 12/17/2024 Noted Allergy Reaction LISINOPRIL 12/19/2006 Comments: blood in urine,renal failure AMOXICILLIN 10/23/2018 4 - Hives CIPRO (CIPROFLOXACIN) 12/19/2006 2 - Rash 9 - Itching LATEX 04/10/2008 2 - Rash 7 - Swelling PENICILLINS 07/19/2016 4 - Hives VENOM-HONEY BEE 10/23/2018 7 - Swelling Date Reviewed: 12/16/2024 Reviewed by: Angel Pickett APRN.MAINTENANCE ELECTRICIAN - Fully Assessed Visit Diagnosis:Encounter for screening mammogram for breast cancer [Z12.31] Order(s):KATHERINE WEISS [[id number]] Order #: [id number] FUTURE Prescriptions as of 01/17/2025 - amitriptyline (ELAVIL) 10 mg tablet Take 1 tablet by mouth daily at bedtime. - amLODIPine (NORVASC) 10 mg tablet Take 1 tablet by mouth once daily. - Cholecalciferol, Vitamin D3, 125 mcg (5,000 unit) cap Take 1 capsule by mouth once daily. - ferrous sulfate 325 mg (65 mg iron) tablet Take 1 tablet by mouth two times a day with meals. - pantoprazole DR (PROTONIX) 20 mg tablet Take 1 tablet by mouth daily before breakfast. Take on empty stomach, 1/2 hr before meal. - rosuvastatin (CRESTOR) 5 mg tablet Take 1 tablet by mouth once daily. - ascorbic acid, vitamin C, (VITAMIN C) 500 mg tablet Take 1 tablet by mouth two times a day. - nystatin (MYCOSTATIN) powder Apply 1 application to affected area four times a day as needed. - furosemide (LASIX) 40 mg tablet Take 40 mg by mouth once daily. - POTASSIUM-99 ORAL Take 99 mg by mouth once daily. - ELIQUIS 5 mg tab(s) Take 5 mg by mouth. - acetaminophen (TYLENOL) 500 mg tablet Take 1 tablet by mouth three times daily as needed for pain. Problem List As Of Date 12/17/2024 Noted Resolved Unspecified asthma(493.90) [J45.909] 12/19/2006 08/18/2015 Depressive disorder [F32.A] 12/19/2006 Agoraphobia with panic disorder [F40.01] 12/19/2006 05/11/2017 Tobacco use disorder [F17.200] 12/19/2006 06/17/2024 BENIGN HYPERTENSION [I10] 12/27/2006 11/23/2008 SUPRV HIGH-RISK PREG NOS [O09.90] 04/10/2008 09/09/2008 AMA MULTIGRAVID-ANTEPARTUM [O09.529] 09/09/2008 11/27/2008 SUPRF HIGH RISK NEC [O09.899] 09/09/2008 11/27/2008 Unspecified Backache [M54.9] 10/21/2008 06/29/2009 POOR GRTH-ANTEPART [O36.5990] 10/31/2008 11/27/2008 Acute, but ill-defined, cerebrovascular disease*11/07/2008 05/11/2017 Hypertension [I10] 11/23/2008 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 current use of anticoagulant therapy *11/23/2008 Mitral regurgitation [I34.0] 11/27/2008 Unspecified Anemia [D64.9] 12/01/2008 06/29/2009 Open Wound(s) (Multiple) of Unspecified Site(s)*12/01/2008 06/29/2009 Sick sinus syndrome (HCC) [I49.5] 08/27/2009 05/30/2016 Heart valve replaced by transplant [Z95.2] 10/22/2009 10/07/2010 SUMMARY [V999.95] 07/01/2011 05/08/2012 Pacemaker malfunction [T82.111A] 07/01/2011 07/25/2013 Heart valve replaced [Z95.2] 08/14/2013 Menorrhagia [N92.0] 08/14/2013 08/18/2015 Anemia [D64.9] 08/14/2013 05/11/2017 Paroxysmal atrial fibrillation (HCC) [I48.0] 10/31/2013 Psychosis (HCC) [F29] 10/01/2014 05/30/2016 Tardive dyskinesia [G24.01] 08/18/2015 Mass of sigmoid colon on CT scan [K63.89] 06/16/2016 12/08/2016 Asthma with chronic obstructive pulmonary disea*06/23/2016 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*05/11/2017 CKD (chronic kidney disease) stage 3, GFR 30-59*06/18/2018 Obesity, Class I, BMI 30-34.9 [E66.811] 11/12/2018 Urge incontinence [N39.41] 10/03/2019 Brain aneurysm [I67.1] 10/11/2020 Hemiparesis due to old cerebrovascular accident*10/17/2020 Malnutrition of mild degree (HCC) [E44.1] 10/19/2020 06/10/2021 Epistaxis [R04.0] 11/06/2020 06/14/2021 Unsteady gait [R26.81] 01/07/2021 Hypertensive kidney disease with stage 3 chroni*06/10/2021 Anxiety [F41.9] 10/24/2022 Gastroesophageal reflux disease without esophag*10/24/2022 Hyperlipidemia [E78.5] 10/24/2022 Dementia (HCC) [F03.90] 06/17/2024 Encounter Status:Closed by EPIC, PRODUSER on 01/17/25 [facility] 12-16-2024 Instructions Angel Pickett APRN.CNS - 12/16/2024 1:35 PM EDT Take gabapentin at bedtime so you are not feeling drowsy during the day. Let us know in a couple of weeks how you are doing. documented in this encounter [facility] 12-16-2024 Note HNO ID: [id number] Author: ANGEL PICKETT APRN.CNS Service: ? Author Type: Nurse Specialist Type: Progress Notes Filed: 12/16/2024 14:03 Note Text: Subjective Patient ID: Froilan is a 59 year old female who presents for F/U 6 Month. HPI She notes that elevating her feet when seated has help with leg swelling. Current treatments have helped with leg pain. She started taking gabapentin today, first dose this morning, made her too groggy ROS +foot pain Objective BP 106/72 Pulse 74 Resp 16 Wt 90.9 kg (200 lb 6.4 oz) LMP (LMP Unknown) BMI 34.40 kg/m? Physical Exam Vitals and nursing note reviewed. Constitutional: Appearance: Normal appearance. HENT: Head: Normocephalic and atraumatic. Eyes: Conjunctiva/sclera: Conjunctivae normal. Cardiovascular: Rate and Rhythm: Normal rate and regular rhythm. Pulses: Carotid pulses are 2+ on the right side and 2+ on the left side. Radial pulses are 2+ on the right side and 2+ on the left side. Heart sounds: Normal heart sounds. Pulmonary: Effort: Pulmonary effort is normal. Abdominal: General: Bowel sounds are normal. Palpations: Abdomen is soft. Musculoskeletal: Right lower leg: No edema. Left lower leg: No edema. Feet: Comments: bilateral foot pain Skin: General: Skin is warm and dry. Neurological: General: No focal deficit present. Mental Status: She is alert. Latest Ref Rng 12/09/2024 Protein, Total 6.3 - 8.0 g/dL 7.2 Albumin 3.9 - 4.9 g/dL 4.3 Calcium 8.5 - 10.2 mg/dL 9.3 Bilirubin, Total 0.2 - 1.3 mg/dL 0.9 Alkaline Phosphatase 34 - 123 U/L 79 AST 13 - 35 U/L 23 ALT 7 - 38 U/L 10 Glucose 74 - 99 mg/dL 79 BUN 7 - 21 mg/dL 19 Creatinine 0.58 - 0.96 mg/dL 0.95 Sodium 136 - 144 mmol/L 141 Potassium 3.7 - 5.1 mmol/L 3.5 (L) Chloride 98 - 107 mmol/L 103 CO2 22 - 30 mmol/L 23 Anion Gap 8 - 15 mmol/L 15 eGFR >=60 mL/min/1.73m? 70 WBC 3.70 - 11.00 k/uL 7.72 RBC 3.90 - 5.20 m/uL 4.59 Hemoglobin 11.5 - 15.5 g/dL 14.0 Hematocrit 36.0 - 46.0 % 43.2 MCV 80.0 - 100.0 fL 94.1 MCH 26.0 - 34.0 pg 30.5 MCHC 30.5 - 36.0 g/dL 32.4 RDW-CV 11.5 - 15.0 % 13.3 Platelet Count 150 - 400 k/uL 187 MPV 9.0 - 12.7 fL 10.3 Absolute nRBC <0.01 k/uL <0.01 12/09/2024 4:21 PM - Radiology, Oru In Impression IMPRESSION: Negative study for proximal DVT in the left and right lower extremities. No gross calf DVT in the left and right lower extremities in their limited visualized segments. Negative study for superficial thrombophlebitis in the imaged segments of the left and right lower extremities. ASSESSMENT/PLAN: 1. Bilateral lower extremity pain - ICD9: 729.5, ICD10: M79.604, M79.605 (primary diagnosis) resolved 2. Pedal edema - ICD9: 782.3, ICD10: R60.0 Currently without leg swelling, endorse elevating feet when seated. Mzvm-hsv-acreuwm compression socks may be considered if swelling returns. Wear when sitting or standing for prolonged periods. Angel Pickett, BEATRICE.MAINTENANCE ELECTRICIAN Medical Decision Making: Problems: Low: Stable chronic illness Data: Unique test result(s) reviewed: 2 Risk: Moderate: Drug management Medical Decision Making Level: 3 - Low [facility] 12-16-2024 History of Presen t illness Narrative Subjective Patient ID: Froilan is a 59 year old female who presents for F/U 6 Month. HPI She notes that elevating her feet when seated has help with leg swelling. Current treatments have helped with leg pain. She started taking gabapentin today, first dose this morning, made her too groggy ROS +foot pain Objective BP 106/72 Pulse 74 Resp 16 Wt 90.9 kg (200 lb 6.4 oz) LMP (LMP Unknown) BMI 34.40 kg/m Physical Exam Vitals and nursing note reviewed. Constitutional: Appearance: Normal appearance. HENT: Head: Normocephalic and atraumatic. Eyes: Conjunctiva/sclera: Conjunctivae normal. Cardiovascular: Rate and Rhythm: Normal rate and regular rhythm. Pulses: Carotid pulses are 2+ on the right side and 2+ on the left side. Radial pulses are 2+ on the right side and 2+ on the left side. Heart sounds: Normal heart sounds. Pulmonary: Effort: Pulmonary effort is normal. Abdominal: General: Bowel sounds are normal. Palpations: Abdomen is soft. Musculoskeletal: Right lower leg: No edema. Left lower leg: No edema. Feet: Comments: bilateral foot pain Skin: General: Skin is warm and dry. Neurological: General: No focal deficit present. Mental Status: She is alert. Latest Ref Rng 12/09/2024 Protein, Total 6.3 - 8.0 g/dL 7.2 Albumin 3.9 - 4.9 g/dL 4.3 Calcium 8.5 - 10.2 mg/dL 9.3 Bilirubin, Total 0.2 - 1.3 mg/dL 0.9 Alkaline Phosphatase 34 - 123 U/L 79 AST 13 - 35 U/L 23 ALT 7 - 38 U/L 10 Glucose 74 - 99 mg/dL 79 BUN 7 - 21 mg/dL 19 Creatinine 0.58 - 0.96 mg/dL 0.95 Sodium 136 - 144 mmol/L 141 Potassium 3.7 - 5.1 mmol/L 3.5 (L) Chloride 98 - 107 mmol/L 103 CO2 22 - 30 mmol/L 23 Anion Gap 8 - 15 mmol/L 15 eGFR >=60 mL/min/1.73m 70 WBC 3.70 - 11.00 k/uL 7.72 RBC 3.90 - 5.20 m/uL 4.59 Hemoglobin 11.5 - 15.5 g/dL 14.0 Hematocrit 36.0 - 46.0 % 43.2 MCV 80.0 - 100.0 fL 94.1 MCH 26.0 - 34.0 pg 30.5 MCHC 30.5 - 36.0 g/dL 32.4 RDW-CV 11.5 - 15.0 % 13.3 Platelet Count 150 - 400 k/uL 187 MPV 9.0 - 12.7 fL 10.3 Absolute nRBC <0.01 k/uL <0.01 12/09/2024 4:21 PM - Radiology, Oru In Impression IMPRESSION: Negative study for proximal DVT in the left and right lower extremities. No gross calf DVT in the left and right lower extremities in their limited visualized segments. Negative study for superficial thrombophlebitis in the imaged segments of the left and right lower extremities. ASSESSMENT/PLAN: 1. Bilateral lower extremity pain - ICD9: 729.5, ICD10: M79.604, M79.605 (primary diagnosis) resolved 2. Pedal edema - ICD9: 782.3, ICD10: R60.0 Currently without leg swelling, endorse elevating feet when seated. Qulf-wky-upikktk compression socks may be considered if swelling returns. Wear when sitting or standing for prolonged periods. Angel Pickett APRN.CNS Medical Decision Making: Problems: Low: Stable chronic illness Data: Unique test result(s) reviewed: 2 Risk: Moderate: Drug management Medical Decision Making Level: 3 - Low documented in this encounter [facility] 12-10-2024 Telephone encounter Note Labs were okay, potassium slightly low but not low enough to cause significant symptoms. Pain is possibly due to neuropathy as discussed yesterday. Wear compression socks, stay active but avoid prolonged walking or standing. We could consider starting her on a medication for nerve pain called Gabapentin if she would like Judy Haywood APRN.CONTRACT GRAPHIC DESIGNER [facility] 12-10-2024 Miscellaneous Notes Labs were okay, potassium slightly low but not low enough to cause significant symptoms. Pain is possibly due to neuropathy as discussed yesterday. Wear compression socks, stay active but avoid prolonged walking or standing. We could consider starting her on a medication for nerve pain called Gabapentin if she would like Judy Haywood APRN.CONTRACT GRAPHIC DESIGNER Pt called back and was given negative results for US of leg. Pt is asking for results of blood work. Please advise Phoned patient and caregiver Destini and has no voicemail set up, could not leave message, try again later. ----- Message from Judy Haywood APRN.CONTRACT GRAPHIC DESIGNER sent at 12/09/2024 4:22 PM EDT ----- Please let the patient know the ultrasound of her legs was negative for blood clots Judy Haywood APRN.CONTRACT GRAPHIC DESIGNER documented in this encounter [facility] 12-10-2024 Telephone encounter Note Pt called back and was given negative results for US of leg. Pt is asking for results of blood work. Please advise [facility] 12-10-2024 Telephone encounter Note Phoned patient and caregiver Destini and has no voicemail set up, could not leave message, try again later. [facility] 12-10-2024 Telephone encounter Note ----- Message from Judy Haywood APRN.CONTRACT GRAPHIC DESIGNER sent at 12/09/2024 4:22 PM EDT ----- Please let the patient know the ultrasound of her legs was negative for blood clots Judy Haywood APRN.CONTRACT GRAPHIC DESIGNER [facility] 12-09-2024 Note HNO ID: [id number] Author: JUDY HAYWOOD APRN.DANNY Service: ? Author Type: Nurse Practitioner Type: Progress Notes Filed: 12/09/2024 15:05 Note Text: CC: Patient presents with: Edema: Bilateral feet/ tingling/pricking sensation x 3 days HPI Recording using [employer] software for draft documentation of the visit was discussed with the patient/authorized customer retention representative; all questions welcomed and answered. Patient/authorized customer retention representative agreed to proceed Froilan is a 59-year-old female with a history of CVA, aneurysms, and A-fib on [facility], presenting with acute onset of bilateral foot and ankle pain and swelling. Froilan reports the onset of sharp, stabbing pain and swelling in both feet and upper ankles beginning on Monday, following increased physical activity. She has been walking approximately 1 mile daily around her apartment complex since Monday and walked extensively at [facility] on Monday. The pain became severe during the last 30 minutes at [facility], causing her to cry and requiring assistance from her brother and son to leave the store. The pain is worse in the right foot and ankle than the left and is exacerbated by standing and walking, described as feeling like walking on cactuses. The pain improves with rest and is significantly alleviated by immersing her feet in ice water. She denies any improvement in swelling by morning and notes that elevating her feet has not provided relief. Froilan has a history of similar, but less severe, foot pain associated with walking. She also reports episodes of numbness in her feet, particularly after prolonged standing, and denies back pain. She has tried Tylenol for pain relief without significant benefit. She denies fever, chills, or known diabetes. Review of Systems Constitutional: Negative for chills, diaphoresis, fatigue and fever. Respiratory: Negative for shortness of breath. Cardiovascular: Negative for chest pain and palpitations. Skin: Negative for color change and rash. PAST MEDICAL HISTORY Diagnosis Date Acute kidney failure 2004 LISINOPRIL related. Acute, but ill-defined, cerebrovascular disease 11/07/2008 Right hemiparesis, embolic Agoraphobia with panic disorder 12/19/2006 Counselor from counseling center Anemia 2013 Asthma with COPD with exacerbation ([facility]) Bipolar disorder ([facility]) 2000 Cerebral aneurysm ([facility]) 10/11/2020 Chronic diarrhea 07/12/2016 Chronic rheumatic endocarditis 11/07/2008 Treated for Infective endocarditis Congestive heart failure ([facility]) COVID-19 02/2022 CVA (cerebral vascular accident) ([facility]) 10/11/2020 Depressive disorder, not elsewhere classified 12/19/2006 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ident (CVA) 05/11/2017 Essential hypertension 11/23/2008 Gastroesophageal reflux disease without esophagitis Generalized anxiety disorder Anxiety, Generalized 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 Presumed nfective endocarditis, treated with IV antibiotics, complicated by a stroke. Underwent MVR (#27 Medtronic Velasco bioprosthesis) with Dr Stephan Morales at [facility] on 07/23/2009. Moderate dysplasia of cervix Other and unspecified mitral valve diseases 11/27/2008 Rheumatic valvular heart disease. Pacemaker malfunction 07/01/2011 Paroxysmal atrial fibrillation ([facility]) 10/31/2013 Primary hypertension Psychosis ([facility]) 10/01/2014 Dr[facility] Jon[facility] Trilafon at . Sick sinus syndrome ([facility]) 2008 PPM Sigmoid diverticulitis 08/11/2016 colon narrowing, resected Tardive dyskinesia 08/18/2015 Tobacco use disorder 12/19/2006 Unspecified asthma(493.90) 12/19/2006 Unspecified essential hypertension 11/23/2008 Unspecified urinary incontinence PAST SURGICAL HISTORY Procedure Laterality Date DELIVERY ONLY 11/2008 , low cervical COLECTOMY PRTL W/COLOPROCTOSTOMY 08/11/2016 COLONOSCOPY FLX DX W/COLLJ SPEC WHEN PFRMD 12/22/2014 Repeat 2024 COLONOSCOPY FLX DX W/COLLJ SPEC WHEN PFRMD 07/12/2016 repeat colonoscopy in one year CONIZATION CERVIX W/WO DANDC RPR ELTRD EXC [address] Freire EGD 02/22/2022 erosive esophagitis, gastritis, multiple duodenal ulcers no bleeding ENDOMETRIAL BX W/WO ENDOCERVIX BX W/O DILAT SPX 08/14/2013 IR EMBOLIZATION ARTERIAL / MAPPING (AK) 10/29/2020 right inferior mesenteric artery IR VASCULAR ACCESS TEAM PICC INSERTION RADIO 10/26/2020 NIL ANEURYSM COILING MAINTENANCE ELECTRICIAN Left 10/17/2020 left ant. cerebral art; basilar artery PACEMAKER (PM) 07/28/2009 dual chamber REPLACEMENT MITRAL VALVE W/CARDIOPULMONARY (more content not included)... [facility] 12-09-2024 History of Presen t illness Narrative CC: Patient presents with: Edema: Bilateral feet/ tingling/pricking sensation x 3 days HPI Recording using [employer] software for draft documentation of the visit was discussed with the patient/authorized customer retention representative; all questions welcomed and answered. Patient/authorized customer retention representative agreed to proceed Froilan is a 59-year-old female with a history of CVA, aneurysms, and A-fib on Eliquis, presenting with acute onset of bilateral foot and ankle pain and swelling. Froilan reports the onset of sharp, stabbing pain and swelling in both feet and upper ankles beginning on Monday, following increased physical activity. She has been walking approximately 1 mile daily around her apartment complex since Monday and walked extensively at [facility] on Monday. The pain became severe during the last 30 minutes at [facility], causing her to cry and requiring assistance from her brother and son to leave the store. The pain is worse in the right foot and ankle than the left and is exacerbated by standing and walking, described as feeling like walking on cactuses. The pain improves with rest and is significantly alleviated by immersing her feet in ice water. She denies any improvement in swelling by morning and notes that elevating her feet has not provided relief. Froilan has a history of similar, but less severe, foot pain associated with walking. She also reports episodes of numbness in her feet, particularly after prolonged standing, and denies back pain. She has tried Tylenol for pain relief without significant benefit. She denies fever, chills, or known diabetes. Review of Systems Constitutional: Negative for chills, diaphoresis, fatigue and fever. Respiratory: Negative for shortness of breath. Cardiovascular: Negative for chest pain and palpitations. Skin: Negative for color change and rash. PAST MEDICAL HISTORY Diagnosis Date Acute kidney failure 2004 LISINOPRIL related. Acute, but ill-defined, cerebrovascular disease 11/07/2008 Right hemiparesis, embolic Agoraphobia with panic disorder 12/19/2006 Counselor from [facility] Anemia 2013 Asthma with COPD with exacerbation ([facility]) Bipolar disorder ([facility]) 2000 Cerebral aneurysm ([facility]) 10/11/2020 Chronic diarrhea 07/12/2016 Chronic rheumatic endocarditis 11/07/2008 Treated for Infective endocarditis Congestive heart failure ([facility]) COVID-19 02/2022 CVA (cerebral vascular accident) ([facility]) 10/11/2020 Depressive disorder, not elsewhere classified 12/19/2006 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ident (CVA) 05/11/2017 Essential hypertension 11/23/2008 Gastroesophageal reflux disease without esophagitis Generalized anxiety disorder Anxiety, Generalized 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 Presumed nfective endocarditis, treated with IV antibiotics, complicated by a stroke. Underwent MVR (#27 Medtronic Velasco bioprosthesis) with Dr Stephan Morales at [facility] on 07/23/2009. Moderate dysplasia of cervix Other and unspecified mitral valve diseases 11/27/2008 Rheumatic valvular heart disease. Pacemaker malfunction 07/01/2011 Paroxysmal atrial fibrillation ([facility]) 10/31/2013 Primary hypertension Psychosis ([facility]) 10/01/2014 Dr[facility] Jonathon Kulkarni[facility]. Trilafon at . Sick sinus syndrome ([facility]) 2008 PPM Sigmoid diverticulitis 08/11/2016 colon narrowing, resected Tardive dyskinesia 08/18/2015 Tobacco use disorder 12/19/2006 Unspecified asthma(493.90) 12/19/2006 Unspecified essential hypertension 11/23/2008 Unspecified urinary incontinence PAST SURGICAL HISTORY Procedure Laterality Date DELIVERY ONLY 11/2008 , low cervical COLECTOMY PRTL W/COLOPROCTOSTOMY 08/11/2016 COLONOSCOPY FLX DX W/COLLJ SPEC WHEN PFRMD 12/22/2014 Repeat 2024 COLONOSCOPY FLX DX W/COLLJ SPEC WHEN PFRMD 07/12/2016 repeat colonoscopy in one year CONIZATION CERVIX W/WO D&C RPR ELTRD EXC 1996 CYSTOURETHROSCOPY [address] Freire EGD 02/22/2022 erosive esophagitis, gastritis, multiple duodenal ulcers no bleeding ENDOMETRIAL BX W/WO ENDOCERVIX BX W/O DILAT SPX 08/14/2013 IR EMBOLIZATION ARTERIAL / MAPPING (AK) 10/29/2020 right inferior mesenteric artery IR VASCULAR ACCESS TEAM PICC INSERTION RADIO 10/26/2020 NIL ANEURYSM COILING MAINTENANCE ELECTRICIAN Left 10/17/2020 left ant. cerebral art; basilar artery PACEMAKER (PM) 07/28/2009 dual chamber REPLACEMENT MITRAL VALVE W/CARDIOPULMONARY BYP 07/23/2009 Velasco II Porcine Heart Valve TUBAL LIGATION, 2008 ALLERGIES Lisinopril, Amoxicillin, Cipro [Ciprofloxacin], Latex, Penicillins, and Venom-Honey Bee MEDICATIONS amLODIPine (NORVASC) 10 mg tablet Take 1 tablet by mouth once daily. Cholecalciferol, Vitamin D3, 125 mcg (5,000 unit) cap Take 1 capsule by mouth once daily. ferrous sulfate 325 mg (65 mg iron) tablet Take 1 tablet by mouth two times a day with meals. pantoprazole DR (PROTONIX) 20 mg tablet Take 1 tablet by mouth daily before breakfast. Take on empty stomach, 1/2 hr before meal. rosuvastatin (CRESTOR) 5 mg tablet Take 1 tablet by mouth once daily. ascorbic acid, vitamin C, (VITAMIN C) 500 mg tablet Take 1 tablet by mouth two times a day. furosemide (LASIX) 40 mg tablet Take 40 mg by mouth once daily. POTASSIUM-99 ORAL Take 99 mg by mouth once daily. ELIQUIS 5 mg tab(s) Take 5 mg by mouth. acetaminophen (TYLENOL) 500 mg tablet Take 1 tablet by mouth three times daily as needed for pain. HYDROcodone-acetaminophen (NORCO) 5-325 mg per tablet Take 1 tablet by mouth every 8 hours as needed for pain for up to 5 days. nystatin (MYCOSTATIN) powder Apply 1 application to affected area four times a day as needed. FAMILY HISTORY Problem Relation Age of Onset Arthritis Mother Hypertension Mother Breast Cancer Mother mets to lung Heart Father Hypertension Father Psychiatry Father DEPRESSION Thyroid Father Hypertension Sister Colon Cancer Brother early 40's Breast Cancer Brother 30's Asthma Son Diabetes Maternal Aunt Diabetes Paternal Aunt Diabetes Paternal Uncle Social History Tobacco Use Smoking status: Former Average packs/day: 0.5 packs/day for 27.0 years (13.5 ttl pk-yrs) Types: Cigarettes Start date: 07/30/2023 Smokeless tobacco: Never Substance Use Topics Alcohol use: No Drug use: No BP 124/86 Pulse 90 Resp 14 Wt 92.5 kg (203 lb 14.8 oz) LMP (LMP Unknown) BMI 35.00 kg/m Physical Exam Vitals reviewed. Constitutional: Appearance: Normal appearance. Musculoskeletal: Right lower leg: Tenderness present. No swelling or deformity. Left lower leg: Tenderness present. No swelling or deformity. Right ankle: No swelling or deformity. Tenderness present. Left ankle: No swelling or deformity. Tenderness present. Right foot: Normal capillary refill. Tenderness present. No swelling or deformity. Normal pulse. Left foot: Normal capillary refill. Tenderness present. No swelling or deformity. Normal pulse. Comments: Bilateral lower legs: significant tenderness with even light palpation including ankles and feet. Normal skin temperature and color. Neurological: Mental Status: She is alert. DATA REVIEWED: Most recent labs Assessment/Plan 1. Bilateral lower extremity pain (M79.604) Pedal edema (R60.0) Onset of bilateral lower extremity pain and pedal edema began on Monday after increased physical activity. Pain is described as sharp and stabbing, primarily in the feet and upper ankles, with the right side being worse than the left. Pain is exacerbated by standing and walking, and is accompanied by numbness and tingling. No significant edema observed on physical examination. Patient has a history of nerve pain following a stroke and aneurysms, and is currently on Eliquis for atrial fibrillation. - Ordered bilateral lower extremity ultrasound to rule out deep vein thrombosis. - Ordered blood work, including potassium levels, due to history of hypokalemia and associated muscle cramps. - Prescribed hydrocodone with acetaminophen, to be taken every 8 hours as needed for pain. Advised patient not to take additional Tylenol and to avoid activities requiring alertness due to potential drowsiness. - Advised patient to reduce physical activity temporarily to prevent exacerbation of symptoms. - Discussed potential for neuropathic pain; will consider neuropathic pain medication if ultrasound and blood work are normal. Prescription instructions reviewed with patient as applicable. Potential red flag symptoms discussed with the patient. Reviewed appropriate action plan to take if red flag symptoms occur. Patient agreeable to treatment plan. Judy Haywood APRN.CONTRACT GRAPHIC DESIGNER documented in this encounter [facility] 12-09-2024 Instructions Judy Hawyood APRN.CONTRACT GRAPHIC DESIGNER - 12/09/2024 2:57 PM EDT We discussed your foot and ankle pain: - You reported sharp, stabbing pain in your feet and upper ankles that began on Monday, worsens with walking or standing, and improves with rest and ice water. You also noted numbness and tingling in your feet, particularly after prolonged standing, and occasional cramping in your lower legs. - On examination, I did not observe significant swelling in your legs or feet. - I suspect the pain may be related to nerve issues, possibly exacerbated by increased physical activity. However, we will perform further testing to rule out other causes. We discussed your care plan: - I have ordered an ultrasound of your legs to check for blood clots. The scheduling team will contact you to arrange this test. - We will also perform blood work today to evaluate your potassium levels and other potential contributors to your symptoms. - In the meantime, please take it easy and avoid overexerting yourself while your legs are in pain. We discussed pain management: - I prescribed Hydrocodone with Tylenol for pain relief. Take one tablet every 8 hours as needed for pain. Do not take additional Tylenol while using this medication. - This medication may cause drowsiness, so avoid activities requiring alertness, such as driving. Since you do not drive, this should not be a concern. Next steps: - If the ultrasound and blood work are normal and your symptoms persist, we can consider medications specifically for nerve pain. - Please monitor your symptoms and let us know if they worsen or if you experience new symptoms such as fever, chills, or increased swelling. Your prescriptions have been sent to [facility]. If you have any questions or concerns, please contact our office. documented in this encounter [facility] 12-09-2024 Telephone encounter Note Pt called in and reports she has had swelling in her feet x5 days. Pt reports the swelling is greater in the L foot than the R foot, states L foot is pitting. She reports the swelling goes down over night. She reports the swelling is starting to go up her calves slightly. Pt reports putting her feet in ice water helps with the swelling. She states she has a pins and needles feeling in both feel. Pt reports pain from N/T 5-6/10 when she is sitting, but when up moving 10/10. Pt reports she can walk but it is painful. Pt is on 40 mg of Lasix. Pt scheduled with Judy Haywood NP today at 240 pm. [facility] 12-09-2024 Miscellaneous Notes Pt called in and reports she has had swelling in her feet x5 days. Pt reports the swelling is greater in the L foot than the R foot, states L foot is pitting. She reports the swelling goes down over night. She reports the swelling is starting to go up her calves slightly. Pt reports putting her feet in ice water helps with the swelling. She states she has a pins and needles feeling in both feel. Pt reports pain from N/T 5-6/10 when she is sitting, but when up moving 10/10. Pt reports she can walk but it is painful. Pt is on 40 mg of Lasix. Pt scheduled with Judy Haywood NP today at 240 pm. documented in this encounter [facility] 10-30-2024 Telephone encounter Note The patient has been identified by name and date of : Yes, pharmacy Caregiver verified no other encounters exist for this prescription request: Yes Caregiver confirmed with patient/requestor that no other refills are due, in the near future, with this provider at this time: Yes The last office visit in the department: 06/17/2024 Does the patient have a future office visit with this provider/department: Yes 12/16/2024 Requested Prescriptions Pending Prescriptions Disp Refills amLODIPine (NORVASC) 10 mg tablet 30 tablet 5 Sig: Take 1 tablet by mouth once daily. Cholecalciferol, Vitamin D3, 125 mcg (5,000 unit) cap 30 capsule 5 Sig: Take 1 capsule by mouth once daily. ferrous sulfate 325 mg (65 mg iron) tablet 60 tablet 5 Sig: Take 1 tablet by mouth two times a day with meals. pantoprazole DR (PROTONIX) 20 mg tablet 30 tablet 5 Sig: Take 1 tablet by mouth daily before breakfast. Take on empty stomach, 1/2 hr before meal. rosuvastatin (CRESTOR) 5 mg tablet 30 tablet 5 Sig: Take 1 tablet by mouth once daily. Fela Erickson LPN October 30, 2024 9:05 AM [facility] 10-30-2024 Miscellaneous Notes The patient has been identified by name and date of : Yes, pharmacy Caregiver verified no other encounters exist for this prescription request: Yes Caregiver confirmed with patient/requestor that no other refills are due, in the near future, with this provider at this time: Yes The last office visit in the department: 06/17/2024 Does the patient have a future office visit with this provider/department: Yes 12/16/2024 Requested Prescriptions Pending Prescriptions Disp Refills amLODIPine (NORVASC) 10 mg tablet 30 tablet 5 Sig: Take 1 tablet by mouth once daily. Cholecalciferol, Vitamin D3, 125 mcg (5,000 unit) cap 30 capsule 5 Sig: Take 1 capsule by mouth once daily. ferrous sulfate 325 mg (65 mg iron) tablet 60 tablet 5 Sig: Take 1 tablet by mouth two times a day with meals. pantoprazole DR (PROTONIX) 20 mg tablet 30 tablet 5 Sig: Take 1 tablet by mouth daily before breakfast. Take on empty stomach, 1/2 hr before meal. rosuvastatin (CRESTOR) 5 mg tablet 30 tablet 5 Sig: Take 1 tablet by mouth once daily. Fela Erickson LPN October 30, 2024 9:05 AM documented in this encounter [facility] 10-11-2024 Evaluation note Diagnosis Onset Date Resolution Hypokalemia acute October 11 9:17am Tricuspid insufficiency acute October 11, 2024 9:17am History of mitral valve replacement with bioprosthetic valve July 23, 2009 chronic October 11, 2024 9:17am Hyperlipidemia chronic October 11, 2024 9:17am Non-ischemic cardiomyopathy chronic October 11, 2024 9:17am Paroxysmal atrial fibrillation chronic October 11, 2024 9:17am Presence of cardiac pacemaker September 21, 2020 chronic October 11, 2024 9:17am [facility] Work Phone: [phone]) 319-227002-13-2025 Telephone encounter Note* Telephone Encounter - Yvette Gray LPN - 09/19/2024 10:11 AM EST Left message to call & speak to nurse. Yvette Gray LPN [facility]02-13-2025 Miscellaneous Notes* Telephone Encounter - Yvette Gray LPN - 09/19/2024 10:11 AM EST Left message to call & speak to nurse. Yvette Gray LPN * Telephone Encounter - Yvette Gray LPN - 09/18/2024 8:20 AM EST Froilan has follow-up appt with [facility], 2024. Yvette Gray LPN * Telephone Encounter - Louis Dobbs MD - 09/18/2024 12:41 AM EST Not sure what her issue is. Schedule appointment to evaluate concerns. * Telephone Encounter - Melanie Vences RN - 09/17/2024 8:25 AM EST Patient calls and states that she has been having issues with [facility] and not getting answers. Patient states that her heart keeps getting weaker and weaker. 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 Patient states that she knows the valve is bad, and they are doing anything about it. Patient asking if provider would recommend patient going back to [facility] for Cardiology? Please review and advise, Melanie Vences RN [facility] Telephone encounter Note * Telephone Encounter - Yvette Gray LPN - 09/18/2024 8:20 AM EST Froilan has follow-up appt with [facility], 2024. Yvette Gray LPN [facility]02-12-2025 Telephone encounter Note* Telephone Encounter - Louis Dobbs MD - 09/18/2024 12:41 AM EST Not sure what her issue is. Schedule appointment to evaluate concerns. [facility]02-11-2025 Telephone encounter Note* Telephone Encounter - Melanie Vences RN - 09/17/2024 8:25 AM EST Patient calls and states that she has been having issues with [facility] and not getting answers. Patient states that her heart keeps getting weaker and weaker. 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 Patient states that she knows the valve is bad, and they are doing anything about it. Patient asking if provider would recommend patient going back to [facility] for Cardiology? Please review and advise, Melanie Vences RN [facility]01-27-2025 Telephone encounter Note* Telephone Encounter - Elaine Dumas LPN - 09/02/2024 10:39 AM EST Prescription Refill Information The patient has been identified by name and date of : Yes Caregiver verified no other encounters exist for this prescription request: Yes Caregiver confirmed with patient/requestor that no other refills are due, in the near future, with this provider at this time: Yes The last office visit in the department: 06/17/24 Does the patient have a future office visit with this provider/department: Yes 12/16/24 Requested Prescriptions Pending Prescriptions Disp Refills ascorbic acid, vitamin C, (VITAMIN C) 500 mg tablet 60 tablet 11 Sig: Take 1 tablet by mouth two times a day. Elaine Dumas LPN September 02, 2024 10:40 AM [facility]01-27-2025 Miscellaneous Notes* Telephone Encounter - Elaine Dumas LPN - 09/02/2024 10:39 AM EST Prescription Refill Information The patient has been identified by name and date of : Yes Caregiver verified no other encounters exist for this prescription request: Yes Caregiver confirmed with patient/requestor that no other refills are due, in the near future, with this provider at this time: Yes The last office visit in the department: 06/17/24 Does the patient have a future office visit with this provider/department: Yes 12/16/24 Requested Prescriptions Pending Prescriptions Disp Refills ascorbic acid, vitamin C, (VITAMIN C) 500 mg tablet 60 tablet 11 Sig: Take 1 tablet by mouth two times a day. Elaine Dumas LPN September 02, 2024 10:40 AM [facility] Telephone encounter Note * Telephone Encounter - Marian Tabares LPN - 06/19/2024 12:03 PM EST Prescription Refill Information The patient has been identified by name and date of : Yes Caregiver verified no other encounters exist for this prescription request: Yes Caregiver confirmed with patient/requestor that no other refills are due, in the near future, with this provider at this time: Yes The last office visit in the department: 06/17/24 Does the patient have a future office visit with this provider/department: Yes Requested Prescriptions Pending Prescriptions Disp Refills nystatin (MYCOSTATIN) powder 60 g 2 Sig: Apply 1 application to affected area four times a day as needed. Marian Tabares LPN June 19, 2024 12:04 PM [facility]11-13-2024 Miscellaneous Notes* Telephone Encounter - Marian Tabares LPN - 06/19/2024 12:03 PM EST Prescription Refill Information The patient has been identified by name and date of : Yes Caregiver verified no other encounters exist for this prescription request: Yes Caregiver confirmed with patient/requestor that no other refills are due, in the near future, with this provider at this time: Yes The last office visit in the department: 06/17/24 Does the patient have a future office visit with this provider/department: Yes Requested Prescriptions Pending Prescriptions Disp Refills nystatin (MYCOSTATIN) powder 60 g 2 Sig: Apply 1 application to affected area four times a day as needed. Marian Tabares LPN June 19, 2024 12:04 PM documented in this encounterA[facility]11-11-[facility]24 Instructions* Patient Instructions* Judy Haywood, BEATRICE.CONTRACT GRAPHIC DESIGNER - 06/17/2024 9:36 AM EST Screening schedule The following prevention plan is recommended: Hepatitis B Vaccine(1 of 3 - 19+ 3-dose series) Never done Shingrix Vaccine(1 of 2) Never done DTaP,Tdap,Td Vaccine(2 - Td or Tdap) due on 05/07/2022 Mammogram Screening due on 12/09/2023-CALL TO SCHEDULE WHAT YOU CAN DO TO PREVENT FALLS Many falls can be prevented. By making some changes, you can lower your chances of falling. Four things YOU can do to prevent falls for you* and your caregiver 1. Begin a regular exercise program Exercise is one of the most important ways to lower your chances of falling. It makes you stronger and helps you feel better. Exercises that improve balance and coordination (like Parth Chi) are the most helpful. Lack of exercise leads to weakness and increases your chances of falling. Ask your doctor or health care provider about the best type of exercise program for you. 2. Have your health care provider review your medicines Have your doctor or pharmacist review all the medicines you take, even cyjp-lqa-zcvuoyc medicines. As you get older, the way medicines work in your body can change. Some medicines, or combinations of medicines, can make you sleepy or dizzy andcan cause you to fall. 3. Have your vision checked Have your eyes checked by an eye doctor at least once a year. You may be wearing the wrong glasses or have a condition like glaucoma or cataracts that limits your vision. Poor vision can increase your chances of falling. 4. Make your home safer About half of all falls happen at home. To make your home safer: Remove things you can trip over (like papers, books, clothes, and shoes) from stairs and places where you walk. Remove small throw rugs or use double-sided tape to keep the rugs from slipping. Keep items you use often in cabinets you can reach easily without using a step stool. Have grab bars put in next to your toilet and in the tub or shower. Use non-slip mats in the bathtub and on shower floors. Improve the lighting in your home. As you get older, you need brighter lights to see well. Hang light-weight curtains or shades to reduce glare. Have handrails and lights put in on all staircases. Wear shoes both inside and outside the house. Avoid going barefoot or wearing slippers. For more information, contact: Centers for Disease Control and Prevention www.cdc.gov/injury * This information may not apply if you have certain medical conditions. documented in this encounterA[facility]11-11-2024 History of Present illness Narrative* Judy Haywood APRN.CNP - 06/17/2024 9:20 AM EST Images from the original note were not included. Froilan García is a 58 year old female here for a Medicare wellness visit. Medicare Health Risk Assessment General Health Fair Exercise: Minutes/Day 0 min Exercise: Days/Week 0 days Alcohol: Daily Use Never Alcohol: Drinks/Day Patient does not drink Alcohol: 6 or more drinks Never Feel off balance Yes Concerns: Teeth/Dentures No Concerns: Sexual function No Troubled by feelings Frequency: Eating healthy diet More than half the days ADLs requiring help Housework; Cooking; Grocery shopping; Taking medications; Handling finances; Driving Safety precautions in home/vehicle Yes Smoke, vape, chews tobacco No Difficulty hearing No Difficulty seeing No Current Providers Specialists: I have reviewed specialist-related care of the patient in the medical record. Current care team: Patient Care Team: Louis Dobbs MD as PCP - General Outside specialists seen: [facility], [facility] Medical/Family history review Reviewed and updated problem list, medical/surgical/family/social history, medications, and allergies. Opioid use review Opioid Medications (last 90 days) No data to display Anxiety/Depression screening Patient already diagnosed with anxiety and depression. Recommendation: no further intervention at this time Cognitive screening Mini Cog Score: 2 Cognitive screening reviewed and Patient has known cognitive impairment. Functional Observation Was the patient's Timed Up & Go test unsteady or >= 12 seconds? Yes Advance Care Planning Patient did not wish or was not able to name a surrogate decision maker or provide an advance care plan Measurements BP 110/68 Pulse 83 Resp 18 Ht 162.6 cm (5' 4) Wt 94.5 kg (208 lb 5.4 oz) LMP (LMP Unknown) SpO2 93% BMI 35.76 kg/m Vision Screening: Follows with optometry/ophthalmology Assessment/Plan Medicare annual wellness visit, subsequent (Z00.00) - Counseled on healthy diet and regular exercise - Fall avoidance information provided - Personalized prevention plan provided - Discussed need for and benefit of weight loss. BMI 35.76 kg/(m^2) Additional Concerns The following concerns were also discussed with the patient: Referred to cardiology for SOB, initial appointment on 06/05. Echocardiogram and Lexiscan stress test ordered. She was started on Lasix. Patient reports no improvement in SOB, also gets fatigued easily. She has COPD, denies cough or wheezing. Has not used albuterol inhaler in a couple years. She quit smoking about one year ago. HTN-Medication changes:No Taking all medications as prescribed: Yes Side effects: No Home BP's: No Denies: headache, chest pain, palpitations, dyspnea, and peripheral edema. Last 3 Encounter BP Readings: Date: BP: 06/17/2024 110/68 05/23/2023 118/84 12/08/2022 124/82 GERD: Symptoms controlled with Protonix. Denies heartburn/reflux, dysphagia, bloating, abdominal pain, black/bloody stools, vomiting, decreased appetite Anxiety/depression: Patient was under the care of psychiatry however she stopped going to appointments and all of her psych medications on her own due to issues with brain fog and difficulty walking.She reports since stopping medications these symptoms have dramatically improved. She admits to feeling anxious a lot but does not interfere with sleep or daily activities. She denies feeling down, depressed, hopeless, anhedonia, SI or HI. Afib- Anticoagulation: Yes; Rate control: Yes; rhythm control: No She is compliant with medication(s) and is tolerating med(s) without any side effects. 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 She denies any recent falls. Some days she does need to get around with a wheelchair. She has a home health aide that assists with a majority of her ADL's. PHYSICAL EXAM BP 110/68 Pulse 83 Resp 18 Ht 162.6 cm (5' 4) Wt 94.5 kg (208 lb 5.4 oz) LMP (LMP Unknown) SpO2 93% BMI 35.76 kg/m GENERAL: well appearing, alert, in no acute distress CARDIOVASCULAR: regular rate and rhythm. No murmur, rubs or gallops. PULMONARY: clear to auscultation, no wheezing, rhonchi, or crackles EXTREMITY: no lower extremity edema. No skin discoloration. ASSESSMENT/PLAN: 1. Medicare annual wellness visit, subsequent - ICD9: V70.0, ICD10: Z00.00 (primary diagnosis) See medicare wellness plan 2. Shortness of breath - ICD9: 786.05, ICD10: R06.02 Echocardiogram ordered by cardiology, scheduled for this week. If unable to find a cardiac cause ofsymptoms consider PFT's. 3. Asthma with chronic obstructive pulmonary disease (COPD) (HCC) - ICD9: 493.20, ICD10: J44.89 Stable overall. See plan above 4. Hypertensive kidney disease with stage 3a chronic kidney disease (HCC) - ICD9: 403.90, 585.3, ICD10: I12.9, N18.31 - Controlled - Continue current medications - Recommend home blood pressure monitoring, to bring results to next visit - Encouraged sodium restriction, DASH or Mediterranean diet - eGFR: Stable - Counseled on avoiding NSAIDs, adequate hydration - Counseled on low sodium diet - COMPLETE BLOOD COUNT - HEMOGLOBIN A1C - IRON AND TIBC - FERRITIN - LIPID PANEL BASIC 5. Paroxysmal atrial fibrillation (HCC) - ICD9: 427.31, ICD10: I48.0 Stable 6. Hemiparesis due to old cerebrovascular accident (HCC) - ICD9: 438.20, ICD10: I69.359 Stable 7. Dementia, unspecified dementia severity, unspecified dementia type, unspecified whether behavioral, psychotic, or mood disturbance or anxiety (HCC) - ICD9: 294.20, ICD10: F03.90 Stable 8. Anemia, unspecified type - ICD9: 285.9, ICD10: D64.9 Check labs - VITAMIN B12 9. Encounter for immunization - ICD9: V03.89, ICD10: Z23 - INFLUENZA VACCINE, AGE 6MO-64YR, TRIVALENT (AFLURIA, FLULAVAL, FLUVIRIN, FLUZONE) - [employer] COVID-19 VACCINE AGE 12+ YR (COMIRNATY) 10. Gastroesophageal reflux disease without esophagitis - ICD9: 530.81, ICD10: K21.9 Stable 11. Depressive disorder - ICD9: 311, ICD10: F32.A Stable without treatment at this time. 12. Anxiety - ICD9: 300.00, ICD10: F41.9 As above 13. Hyperlipidemia, unspecified hyperlipidemia type - ICD9: 272.4, ICD10: E78.5 - Control undetermined, due for labs - continue current medications for now Judy Haywood APRN.CONTRACT GRAPHIC DESIGNER documented in this encounterAult[facility]11-11-2024 NoteHNO ID: [id number] Author: JUDY HAYWOOD APRN.CONTRACT GRAPHIC DESIGNER Service: ? Author Type: Nurse Practitioner Type: Progress Notes Filed: 06/17/2024 10:11 Note Text: Froilan García is a 58 year old female here for a Medicare wellness visit. Medicare Health Risk Assessment General Health Fair Exercise: Minutes/Day 0 min Exercise: Days/Week 0 days Alcohol: Daily Use Never Alcohol: Drinks/Day Patient does not drink Alcohol: 6 or more drinks Never Feel off balance Yes Concerns: Teeth/Dentures No Concerns: Sexual function No Troubled by feelings Frequency: Eating healthy diet More than half the days ADLs requiring help Housework; Cooking; Grocery shopping; Taking medications; Handling finances; Driving Safety precautions in home/vehicle Yes Smoke, vape, chews tobacco No Difficulty hearing No Difficulty seeing No Current Providers Specialists: I have reviewed specialist-related care of the patient in the medical record. Current care team: Patient Care Team: Louis Dobbs MD as PCP - General Outside specialists seen: [facility], [facility] Medical/Family history review Reviewed and updated problem list, medical/surgical/family/social history, medications, and allergies. Opioid use review Opioid Medications (last 90 days) No data to display Anxiety/Depression screening Patient already diagnosed with anxiety and depression. Recommendation: no further intervention at this time Cognitive screening Mini Cog Score: 2 Cognitive screening reviewed and Patient has known cognitive impairment. Functional Observation Was the patient's Timed Up AND Go test unsteady or >= 12 seconds? Yes Advance Care Planning Patient did not wish or was not able to name a surrogate decision maker or provide an advance care plan Measurements BP 110/68 Pulse 83 Resp 18 Ht 162.6 cm (5' 4) Wt 94.5 kg (208 lb 5.4 oz) LMP (LMP Unknown) SpO2 93% BMI 35.76 kg/m? Vision Screening: Follows with optometry/ophthalmology Assessment/Plan Medicare annual wellness visit, subsequent (Z00.00) - Counseled on healthy diet and regular exercise - Fall avoidance information provided - Personalized prevention plan provided - Discussed need for and benefit of weight loss. BMI 35.76 kg/(m2) Additional Concerns The following concerns were also discussed with the patient: Referred to cardiology for SOB, initial appointment on 06/05. Echocardiogram and Lexiscan stress test ordered. She was started on Lasix. Patient reports no improvement in SOB, also gets fatigued easily. She has COPD, denies cough or wheezing. Has not used albuterol inhaler in a couple years. She quit smoking about one year ago. HTN-Medication changes:No Taking all medications as prescribed: Yes Side effects: No Home BP's: No Denies: headache, chest pain, palpitations, dyspnea, and peripheral edema. Last 3 Encounter BP Readings: Date: BP: 06/17/2024 110/68 05/23/2023 118/84 12/08/2022 124/82 GERD: Symptoms controlled with Protonix. Denies heartburn/reflux, dysphagia, bloating, abdominal pain, black/bloody stools, vomiting, decreased appetite Anxiety/depression: Patient was under the care of psychiatry however she stopped going to appointments and all of her psych medications on her own due to issues with brain fog and difficulty walking. She reports since stopping medications these symptoms have dramatically improved. She admits to feeling anxious a lot but does not interfere with sleep or daily activities. She denies feeling down, depressed, hopeless, anhedonia, SI or HI. Afib- Anticoagulation: Yes; Rate control: Yes; rhythm control: No She is compliant with medication(s) and is tolerating med(s) without any side effects. 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 She denies any recent falls. Some days she does need to get around with a wheelchair. She has a home health aide that assists with a majority of her ADL's. PHYSICAL EXAM BP 110/68 Pulse 83 Resp 18 Ht 162.6 cm (5' 4) Wt 94.5 kg (208 lb 5.4 oz) LMP (LMP Unknown) SpO2 93% BMI 35.76 kg/m? GENERAL: well appearing, alert, in no acute distress CARDIOVASCULAR: regular rate and rhythm. No murmur, rubs or gallops. PULMONARY: clear to auscultation, no wheezing, rhonchi, or crackles EXTREMITY: no lower extremity edema. No skin discoloration. ASSESSMENT/PLAN: 1. Medicare annual wellness visit, subsequent - ICD9: V70.0, ICD10: Z00.00 (primary diagnosis) See medicare wellness plan 2. Shortness of breath - ICD9: 786.05, ICD10: R06.02 Echocardiogram ordered by cardiology, scheduled for this week. If unable to find a cardiac cause of symptoms consider PFT's. 3. Asthma with chronic obstructive pulmonary disease (COPD) (HCC) - ICD9: 493.20, ICD10: J44.89 Stable overall. See plan above 4. Hypertensive kidney disease with stage 3a chronic kidney disease (more content not included)...[facility]10-24-[facility]24 NoteHNO ID: [id number] Author: FRANCES KIDD MA Service: ? Author Type: Screen Tacker Type: Progress Notes Filed: 05/30/2024 15:30 Note Text: POPULATION HEALTH NAVIGATION OUTREACH Action/FYI May 30, 2024 3:24 PM Radha Matthews PCSA ~ROSANNA with PCP/team was May 23, 2023 with Judy Older, CONTRACT GRAPHIC DESIGNER follow up Health Maintenance Due: Annual Medicare Wellness - scheduled on June 17, 2024 Mammogram Screening due on 12/09/2023 Influenza Vaccine(1) due on 04/07/2024 BP Controlled (<130/80) due on 05/23/2024 HCC related My CHART NOT ACTIVATED Outcome: Unable to reach patient , no answer voicemail is full. Patient has had three letters mailed to home address from PCP office this year. Reason for Outreach Care Gap/HCC or Scheduling Wellness Visits Care Gaps due: Medicare Annual Wellness Visit Breast Cancer Screening Controlling Blood Pressure Flu Vaccine Patient Contacted: Unable or unnecessary to reach patient: Unable to leave message HCC related Navigation Signature: Frances Kidd MA May 30, 2024 3:24 [facility]10-24-2024 History of Present illness Narrative* Frances Kidd MA - 05/30/2024 3:23 PM EDT POPULATION HEALTH NAVIGATION OUTREACH Action/FYI May 30, 2024 3:24 PM Radha Matthews PCSA ~ROSANNA with PCP/team was May 23, 2023 with Judy Quiros, CONTRACT GRAPHIC DESIGNER follow up Health Maintenance Due: Annual Medicare Wellness - scheduled on June 17, 2024 Mammogram Screening due on 12/09/2023 Influenza Vaccine(1) due on 04/07/2024 BP Controlled (<130/80) due on 05/23/2024 HCC related My CHART NOT ACTIVATED Outcome: Unable to reach patient , no answer voicemail is full. Patient has had three letters mailed to home address from PCP office this year. Reason for Outreach Care Gap/HCC or Scheduling Wellness Visits Care Gaps due: Medicare Annual Wellness Visit Breast Cancer Screening Controlling Blood Pressure Flu Vaccine Patient Contacted: Unable or unnecessary to reach patient: Unable to leave message HCC related Navigation Signature: Frances Kidd MA May 30, 2024 3:24 PM documented in this encounterAultman [facility]10-24-2024 NotePatient Outreach (NETNAV) FROILAN GARCÍA ([id number]) 1965 F Date Time Provider Department 05/30/24 FRANCES KIDD During your visit today, we recorded the following information about you: Frances Kidd MA 05/30/2024 3:30 PM Signed POPULATION HEALTH NAVIGATION OUTREACH Action/FYI May 30, 2024 3:24 PM Radha Glezlinalogan Matthews PCSA ~ROSANNA with PCP/team was May 23, 2023 with Judy Quiros CNP follow up Health Maintenance Due: Annual Medicare Wellness - scheduled on June 17, 2024 Mammogram Screening due on 12/09/2023 Influenza Vaccine(1) due on 04/07/2024 BP Controlled (<130/80) due on 05/23/2024 HCC related My CHART NOT ACTIVATED Outcome: Unable to reach patient , no answer voicemail is full. Patient has had three letters mailed to home address from PCP office this year. Reason for Outreach Care Gap/HCC or Scheduling Wellness Visits Care Gaps due: Medicare Annual Wellness Visit Breast Cancer Screening Controlling Blood Pressure Flu Vaccine Patient Contacted: Unable or unnecessary to reach patient: Unable to leave message HCC related Navigation Signature: Frances Kidd MA May 30, 2024 3:24 PM Allergies As of Date: 05/30/2024 Noted Allergy Reaction LISINOPRIL 12/19/2006 Comments: blood in urine,renal failure AMOXICILLIN 10/23/2018 4 - Hives CIPRO (CIPROFLOXACIN) 12/19/2006 2 - Rash 9 - Itching LATEX 04/10/2008 2 - Rash 7 - Swelling PENICILLINS 07/19/2016 4 - Hives VENOM-HONEY BEE 10/23/2018 7 - Swelling Date Reviewed: 05/23/2023 Reviewed by: Judy Quiros APRN.DANNY - Fully Assessed Prescriptions as of 05/30/2024 - rosuvastatin (CRESTOR) 5 mg tablet Take 1 tablet by mouth once daily. - amLODIPine (NORVASC) 10 mg tablet Take 1 tablet by mouth once daily. - Cholecalciferol, Vitamin D3, 125 mcg (5,000 unit) cap Take 1 capsule by mouth once daily. - pantoprazole DR (PROTONIX) 20 mg tablet Take 1 tablet by mouth daily before breakfast. Take on empty stomach, 1/2 hr before meal. - ferrous sulfate 325 mg (65 mg iron) tablet Take 1 tablet by mouth two times a day with meals. - cyanocobalamin (VITAMIN B-12) 500 mcg tablet Take 1 tablet by mouth once daily. - ascorbic acid, vitamin C, (VITAMIN C) 500 mg tablet Take 1 tablet by mouth two times a day. - albuterol HFA (PROVENTIL HFA, VENTOLIN HFA) 90 mcg/actuation inhaler Inhale 2 Puffs as instructed every 6 hours as needed (cough, wheezing). - nystatin (MYCOSTATIN) powder Apply 1 application to affected area four times a day as needed. - ELIQUIS 5 mg tab(s) Take 5 mg by mouth. - ARIPiprazole (ABILIFY) 2 mg tablet Take 1 tablet by mouth once daily. [facility] - divalproex sprinkle (DEPAKOTE SPRINKLES) 125 mg capsule Take 1 capsule by mouth twice daily. [facility]. - Mirtazapine (REMERON) 7.5 mg tablet Take 1 tablet by mouth daily at bedtime. [facility]. - valbenazine (INGREZZA) 40 mg capsule Take 1 capsule by mouth once daily. [facility]. - acetaminophen (TYLENOL) 500 mg tablet Take 1 tablet by mouth three times daily as needed for pain. - OXcarbazepine (TRILEPTAL) 300 mg tablet Take 1 tablet by mouth twice daily. Problem List As Of Date 05/30/2024 Noted Resolved Unspecified asthma(493.90) [J45.909] 12/19/2006 08/18/2015 Depressive disorder [F32.A] 12/19/2006 Agoraphobia with panic disorder [F40.01] 12/19/2006 05/11/2017 Tobacco use disorder [F17.200] 12/19/2006 BENIGN HYPERTENSION [I10] 12/27/2006 11/23/2008 SUPRV HIGH-RISK PREG NOS [O09.90] 04/10/2008 09/09/2008 AMA MULTIGRAVID-ANTEPARTUM [O09.529] 09/09/2008 11/27/2008 SUPRF HIGH RISK NEC [O09.899] 09/09/2008 11/27/2008 Unspecified Backache [M54.9] 10/21/2008 06/29/2009 POOR GRTH-ANTEPART [O36.5990] 10/31/2008 11/27/2008 Acute, but ill-defined, cerebrovascular disease*11/07/2008 05/11/2017 Hypertension [I10] 11/23/2008 retirement current use of anticoagulant therapy *11/23/2008 Mitral regurgitation [I34.0] 11/27/2008 Unspecified Anemia [D64.9] 12/01/2008 06/29/2009 Open Wound(s) (Multiple) of Unspecified Site(s)*12/01/2008 06/29/2009 Sick sinus syndrome (HCC) [I49.5] 08/27/2009 05/30/2016 Heart valve replaced by transplant [Z95.2] 10/22/2009 10/07/2010 SUMMARY [V999.95] 07/01/2011 05/08/2012 Pacemaker malfunction [T82.111A] 07/01/2011 07/25/2013 Heart valve replaced [Z95.2] 08/14/2013 Menorrhagia [N92.0] 08/14/2013 08/18/2015 Anemia [D64.9] 08/14/2013 05/11/2017 Paroxysmal atrial fibrillation (HCC) [I48.0] 10/31/2013 Psychosis (HCC) [F29] 10/01/2014 05/30/2016 Tardive dyskinesia [G24.01] 08/18/2015 Mass of sigmoid colon on CT scan [K63.89] 06/16/2016 12/08/2016 Asthma with chronic obstructive pulmonary disea*06/23/2016 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*05/11/2017 CKD (chronic kidney disease) stage 3, GFR 30-59*06/18 (more content not included)...[facility]10-02-2024 Telephone encounter Note* Telephone Encounter - Phylicia Welch LPN - 05/08/2024 10:20 AM EDT Prescription Refill Information The patient has been identified by name and date of : Yes Caregiver verified no other encounters exist for this prescription request: Yes Caregiver confirmed with patient/requestor that no other refills are due, in the near future, with this provider at this time: Yes The last office visit in the department: 05/23/23 Does the patient have a future office visit with this provider/department: Yes Requested Prescriptions Pending Prescriptions Disp Refills rosuvastatin (CRESTOR) 5 mg tablet 30 tablet 5 Sig: Take 1 tablet by mouth once daily. amLODIPine (NORVASC) 10 mg tablet 30 tablet 5 Sig: Take 1 tablet by mouth once daily. Cholecalciferol, Vitamin D3, 125 mcg (5,000 unit) cap 30 capsule 5 Sig: Take 1 capsule by mouth once daily. pantoprazole DR (PROTONIX) 20 mg tablet 30 tablet 5 Sig: Take 1 tablet by mouth daily before breakfast. Take on empty stomach, 1/2 hr before meal. ferrous sulfate 325 mg (65 mg iron) tablet 60 tablet 5 Sig: Take 1 tablet by mouth two times a day with meals. Phylicia Welch LPN May 08, 2024 10:25 AM [facility]10-02-2024 Miscellaneous Notes* Telephone Encounter - Phylicia Welch LPN - 05/08/2024 10:20 AM EDT Prescription Refill Information The patient has been identified by name and date of : Yes Caregiver verified no other encounters exist for this prescription request: Yes Caregiver confirmed with patient/requestor that no other refills are due, in the near future, with this provider at this time: Yes The last office visit in the department: 05/23/23 Does the patient have a future office visit with this provider/department: Yes Requested Prescriptions Pending Prescriptions Disp Refills rosuvastatin (CRESTOR) 5 mg tablet 30 tablet 5 Sig: Take 1 tablet by mouth once daily. amLODIPine (NORVASC) 10 mg tablet 30 tablet 5 Sig: Take 1 tablet by mouth once daily. Cholecalciferol, Vitamin D3, 125 mcg (5,000 unit) cap 30 capsule 5 Sig: Take 1 capsule by mouth once daily. pantoprazole DR (PROTONIX) 20 mg tablet 30 tablet 5 Sig: Take 1 tablet by mouth daily before breakfast. Take on empty stomach, 1/2 hr before meal. ferrous sulfate 325 mg (65 mg iron) tablet 60 tablet 5 Sig: Take 1 tablet by mouth two times a day with meals. Phylicia Welch LPN May 08, 2024 10:25 AM documented in this encounterA[facility] Telephone encounter Note * Telephone Encounter - Lily Camarena MA - 03/21/2024 11:19 AM EDT Unable to reach letter mailed to patient. [facility]08-15-2024 Miscellaneous Notes* Telephone Encounter - Lily Camarena MA - 03/21/2024 11:19 AM EDT Unable to reach letter mailed to patient. * Telephone Encounter - Louis Dobbs MD - 03/19/2024 11:29 AM EDT Patient's request for medication has been refused. See reason and notify patient. Requested Prescriptions Refused Prescriptions Disp Refills cyanocobalamin (VITAMIN B-12) 500 mcg tablet 30 tablet 2 Sig: Take 1 tablet by mouth once daily. Refused By: LOUIS DOBBS Reason for Refusal: Patient needs appointment * Telephone Encounter - Kiley Bonilla LPN - 03/19/2024 10:14 AM EDT The patient has been identified by name and date of : Yes Pharmacyi verified no other encounters exist for this prescription request: Yes Caregiver confirmed with patient/requestor that no other refills are due, in the near future, with this provider at this time: Yes The last office visit in the department: 05/23/2023 Does the patient have a future office visit with this provider/department: No Visit date not found Attempted to reach pt to schedule appt, called pt's # & her EC Destini, both mailboxes are full & unable to leave a message. Requested Prescriptions Pending Prescriptions Disp Refills cyanocobalamin (VITAMIN B-12) 500 mcg tablet 30 tablet 2 Sig: Take 1 tablet by mouth once daily. Kiley Bonilla LPN March 19, 2024 10:17 AM documented in this encounterA[facility]08-[facility] Telephone encounter Note * Telephone Encounter - Yvette Gray LPN - 03/20/2024 4:54 PM EDT POPULATION HEALTH NAVIGATION OUTREACH Action/FYI Reason for Outreach Care Gap/HCC or Scheduling Wellness Visits Care Gaps due: Physical Annual Wellness Visit Patient Contacted: Unable or unnecessary to reach patient: Unable to leave message Navigation Signature: Yvette Gray LPN March 20, 2024 4:55 PM [facility]08-14-2024 Miscellaneous Notes* Telephone Encounter - Yvette Gray LPN - 03/20/2024 4:54 PM EDT POPULATION HEALTH NAVIGATION OUTREACH Action/FYI Reason for Outreach Care Gap/HCC or Scheduling Wellness Visits Care Gaps due: Physical Annual Wellness Visit Patient Contacted: Unable or unnecessary to reach patient: Unable to leave message Navigation Signature: Yvette Gray LPN March 20, 2024 4:55 PM documented in this encounterAult[facility]08-13-2024 Telephone encounter Note * Telephone Encounter - Louis Dobbs MD - 03/19/2024 11:29 AM EDT Patient's request for medication has been refused. See reason and notify patient. Requested Prescriptions Refused Prescriptions Disp Refills cyanocobalamin (VITAMIN B-12) 500 mcg tablet 30 tablet 2 Sig: Take 1 tablet by mouth once daily. Refused By: LOUIS DOBBS Reason for Refusal: Patient needs appointment [facility]08-13-2024 Telephone encounter Note* Telephone Encounter - Kiley Bonilla LPN - 03/19/2024 10:14 AM EDT The patient has been identified by name and date of : Yes Pharmacyi verified no other encounters exist for this prescription request: Yes Caregiver confirmed with patient/requestor that no other refills are due, in the near future, with this provider at this time: Yes The last office visit in the department: 05/23/2023 Does the patient have a future office visit with this provider/department: No Visit date not found Attempted to reach pt to schedule appt, called pt's # & her EC Destini, both mailboxes are full & unable to leave a message. Requested Prescriptions Pending Prescriptions Disp Refills cyanocobalamin (VITAMIN B-12) 500 mcg tablet 30 tablet 2 Sig: Take 1 tablet by mouth once daily. Kiley Bonilla LPN March 19, 2024 10:17 AM [facility]07-30-2024 History of Present illness Narrative* Lily Camarena MA - 03/05/2024 9:52 AM EDT POPULATION HEALTH NAVIGATION OUTREACH Action/FYI Medicare Wellness Reason for Outreach Care Gap/HCC or Scheduling Wellness Visits Care Gaps due: Medicare Annual Wellness Visit Patient Contacted: Unable or unnecessary to reach patient: Unable to leave message Navigation Signature: Lily Camarena MA March 05, 2024 9:53 AM documented in this encounterA[facility]06-[facility] History of Present illness Narrative* Silvia Cates MA - 01/30/2024 2:49 PM EDT POPULATION HEALTH NAVIGATION OUTREACH Action/FYI Contacted patient to schedule [place] Annual Wellness Visit, care gaps and HCCs due. 1st attempt: Unable to leave message voicemail full 2nd attempt: Unable to leave message voicemail full Reason for Outreach Care Gap/HCC or Scheduling Wellness Visits Care Gaps due: Medicare Annual Wellness Visit Breast Cancer Screening Patient Contacted: Unable or unnecessary to reach patient: Unable to leave message HCC related Navigation Signature: Silvia Cates MA January 30, 2024 2:49 PM documented in this encounterA[facility]man [facility]05-21-2024 Telephone encounter Note * Telephone Encounter - Elaine Dumas LPN - 12/26/2023 10:15 AM EDT Patient has been identified by name and date of : Yes, Provider Dobbs Pharmacy phones for refill(s): Requested Prescriptions Pending Prescriptions Disp Refills cyanocobalamin (VITAMIN B-12) 500 mcg tablet 30 tablet 2 Sig: Take 1 tablet by mouth once daily. Date of last office visit in primary care: 05/23/23 Date of next office visit in primary care: Visit date not found Please advise. Thank you. Elaine Dumas LPN. [facility]05-21-2024 Miscellaneous Notes* Telephone Encounter - Elaine Dumas LPN - 12/26/2023 10:15 AM EDT Patient has been identified by name and date of : Yes, Provider Dobbs Pharmacy phones for refill(s): Requested Prescriptions Pending Prescriptions Disp Refills cyanocobalamin (VITAMIN B-12) 500 mcg tablet 30 tablet 2 Sig: Take 1 tablet by mouth once daily. Date of last office visit in primary care: 05/23/23 Date of next office visit in primary care: Visit date not found Please advise. Thank you. Elaine Dumas LPN. documented in this encounterA[facility]04-24-2024 Telephone encounter Note * Telephone Encounter - Rosa Guerrero LPN - 11/29/2023 4:43 PM EDT Contacted Destini Rodriguez and left a message to have the pt call our office. Letter also being sent. .Rosa Guerrero LPN [facility]04-24-2024 Miscellaneous Notes* Telephone Encounter - Rosa Guerrero LPN - 11/29/2023 4:43 PM EDT Contacted Destini Rodriguez and left a message to have the pt call our office. Letter also being sent. .Rosa Guerrero LPN * Telephone Encounter - Krupa Ying - 11/28/2023 6:06 PM EDT Called Pt phone is disconnected called emergency contact and they Provided me the sane number we had on file Krupa Ying * Telephone Encounter - Melanie Vences RN - 11/28/2023 3:44 PM EDT Please help patient schedule follow up appointment. Melanie Vences RN * Telephone Encounter - Judy Haywood APRN.CNP - 11/28/2023 3:18 PM EDT Patient is overdue for follow-up Judy Haywood APRN.CONTRACT GRAPHIC DESIGNER * Telephone Encounter - Melanie Vences RN - 11/28/2023 1:37 PM EDT Patient has been identified by name and date of : Pharmacy phones for refill(s): Requested Prescriptions Pending Prescriptions Disp Refills ferrous sulfate 325 mg (65 mg iron) tablet 60 tablet 5 Sig: Take 1 tablet by mouth two times a day with meals. pantoprazole DR (PROTONIX) 20 mg tablet 30 tablet 5 Sig: Take 1 tablet by mouth daily before breakfast. Take on empty stomach, 1/2 hr before meal. Cholecalciferol, Vitamin D3, 125 mcg (5,000 unit) cap 30 capsule 5 Sig: Take 1 capsule by mouth once daily. amLODIPine (NORVASC) 10 mg tablet 30 tablet 5 Sig: Take 1 tablet by mouth once daily. rosuvastatin (CRESTOR) 5 mg tablet 30 tablet 5 Sig: Take 1 tablet by mouth once daily. Date of last office visit in primary care: 05/23/2023 Date of next office visit in primary care: none Please advise. Thank you. Melanie Vences RN. documented in this encounterAultman [facility]04-23-2024 Telephone encounter Note * Telephone Encounter - Krupa Ying - 11/28/2023 6:06 PM EDT Called Pt phone is disconnected called emergency contact and they Provided me the sane number we had on file Krupa Ying [facility]04-23-2024 Telephone encounter Note* Telephone Encounter - Melanie Vences RN - 11/28/2023 3:44 PM EDT Please help patient schedule follow up appointment. Melanie Vences RN [facility]04-23-2024 Telephone encounter Note* Telephone Encounter - Judy Haywood APRN.CNP - 11/28/2023 3:18 PM EDT Patient is overdue for follow-up Judy Haywood APRN.CNP [facility]04-23-2024 Telephone encounter Note* Telephone Encounter - Melanie Vences RN - 11/28/2023 1:37 PM EDT Patient has been identified by name and date of : Pharmacy phones for refill(s): Requested Prescriptions Pending Prescriptions Disp Refills ferrous sulfate 325 mg (65 mg iron) tablet 60 tablet 5 Sig: Take 1 tablet by mouth two times a day with meals. pantoprazole DR (PROTONIX) 20 mg tablet 30 tablet 5 Sig: Take 1 tablet by mouth daily before breakfast. Take on empty stomach, 1/2 hr before meal. Cholecalciferol, Vitamin D3, 125 mcg (5,000 unit) cap 30 capsule 5 Sig: Take 1 capsule by mouth once daily. amLODIPine (NORVASC) 10 mg tablet 30 tablet 5 Sig: Take 1 tablet by mouth once daily. rosuvastatin (CRESTOR) 5 mg tablet 30 tablet 5 Sig: Take 1 tablet by mouth once daily. Date of last office visit in primary care: 05/23/2023 Date of next office visit in primary care: none Please advise. Thank you. Melanie Vences RN. [facility]04-23-2024 History of Present illness Narrative* Silvia Cates MA - 11/28/2023 10:44 AM EDT POPULATION HEALTH NAVIGATION OUTREACH Action/I Contacted patient to schedule [place] Annual Wellness Visit, care gaps and HCCs due. 1st attempt: Unable to leave message; voicemail full Reason for Outreach Care Gap/HCC or Scheduling Wellness Visits Care Gaps due: Medicare Annual Wellness Visit Patient Contacted: Unable or unnecessary to reach patient: Unable to leave message HCC related Navigation Signature: Silvia Cates MA November 28, 2023 10:44 AM documented in this encounterA[facility]03-04-2024 Miscellaneous Notes* Telephone Encounter - Elaine Dumas LPN - 10/09/2023 4:55 PM EST Pt had appt 05/23/23. Elaine Dumas LPN * Telephone Encounter - Aileen Everett - 04/27/2023 11:00 AM EDT 3rd attempt LVM * Telephone Encounter - Perla Harden - 04/26/2023 9:18 AM EDT Called patient and left a voice mail letting them know to call in and reschedule missed appointments. * Telephone Encounter - Terra Ott LPN - 04/17/2023 4:07 PM EDT No answer. Left message for patient to call office and ask to speak to a nurse regarding rescheduling missed appointment. * Telephone Encounter - Judy Quiros APRN.CNP - 04/17/2023 9:11 AM EDT Patient needs to reschedule missed appointments Judy Quiros APRN.CNP * Telephone Encounter - Elaine Dumas LPN - 04/17/2023 8:55 AM EDT Last appt: 10/24/22 - No future appts scheduled. Patient has been identified by name and date of : Yes Requested Prescriptions Pending Prescriptions Disp Refills Cholecalciferol, Vitamin D3, 125 mcg (5,000 unit) cap 90 capsule 1 Sig: Take 1 capsule by mouth once daily. RX INSTRUCTIONS: Pharmacy initiated this request. No need to notify patient. Elaine Dumas LPN documented in this encounterAultman [facility]02-27-2024 Miscellaneous Notes* Telephone Encounter - Fela Erickson LPN - 10/03/2023 2:02 PM EST Patient has been identified by name and date of : Pharmacy phones for refill(s): Requested Prescriptions Pending Prescriptions Disp Refills ascorbic acid, vitamin C, (VITAMIN C) 500 mg tablet 60 tablet 11 Sig: Take 1 tablet by mouth two times a day. Date of last office visit in primary care: 05/23/2023 Date of next office visit in primary care: no future appt scheduled Please advise. Thank you. Fela Erickson LPN. documented in this encounterAultman [facility]02-23-2024 Miscellaneous Notes* Telephone Encounter - Melanie Vences RN - 09/29/2023 11:51 AM EST Patient has been identified by name and date of : Pharmacy phones for refill(s): Requested Prescriptions Pending Prescriptions Disp Refills cyanocobalamin (VITAMIN B-12) 500 mcg tablet 30 tablet 11 Sig: Take 1 tablet by mouth once daily. Date of last office visit in primary care: 05/23/2023 Date of next office visit in primary care: none Please advise. Thank you. Melanei Vences RN. documented in this encounterAultman [facility]12-19-2023 Progress note Author Stephan Chery [facility] July 25, 2023 1:35pm Note Date/Time July 25, 2023 7:37am [facility] Medical Records Department [address] [place] [id number] Progress Note - Hospitalist 07/25/23 0729 MR#: [id number] Acct: [id number] Name: FROILAN GARCÍA Rep #:[id number] : 1965 57 From: Stephan Chery DO PCP: Dr. Louis Dobbs MD Status:A DM VARSHA [address]: [address] Reason for Visit Reason for Visit: Diagnoses Other forms of dyspnea (07/24/23) Hypoxemia (07/24/23) Subjective Subjective Feeling better. Objective Data Objective Data Vital Signs: Vital Signs Temp Pulse Resp BP Pulse Ox O2 Del Method 36.6 C 83 18 115/61 94 Room Air 07/25/23 02:36 07/25/23 07:10 07/25/23 07:10 07/25/23 02:36 07/25/23 07:10 07/25/23 07:10 Oxygen Delivery Method Room Air Weight: 82.1 kg Body Mass Index (BMI) 33.0 Intake & Output: Intake and Output for Last 24 Hours 07/23/23 07/24/23 07/25/23 23:59 23:59 23:59 Intake Total 240 / 240 Balance 240 / 240 Lab / Micro Data 07/25/23 06:07 07/25/23 06:07 Labs: Laboratory Results - last 24 hr 07/24/23 12:45: WBC 8.2, RBC 4.74, Hgb 15.3 H, Hct 47.3 H, MCV 99.8 H, MCH 32.3 H, MCHC 32.3, RDW Std Deviation 48.0 H, RDW Coeff of Jonathon 13.0, Plt Count 173, MPV 9.5, Immature Gran % (Auto) 0.200, Neut % (Auto) 67.7, Lymph % (Auto) 19.9, [place] % (Auto) 7.9, Eos % (Auto) 3.3, Baso % (Auto) 1.0, Absolute Neuts (auto) 5.6, Absolute Lymphs (auto) 1.63, Nucleated RBC % 0, Sodium 141, Potassium 4.4, Chloride 110 H, Carbon Dioxide 26.0, Anion Gap 5, BUN 11, Creatinine 0.94, EstimCreat Clear Calc 53.48, Est GFR (MDRD) Af Amer 79, Est GFR (MDRD) Non-Af 65, BUN/Creatinine Ratio 11.7, Glucose 91, Calcium 9.3, Troponin I High Sens 5, B-Natriuretic Peptide 34.1 07/25/23 06:07: WBC 7.8, RBC 4.69, Hgb 14.7, Hct 44.8, MCV 95.5, MCH 31.3, MCHC 32.8, RDW Std Deviation 45.8 H, RDW Coeff of Jonathon 13.0, Plt Count 174, MPV 10.1, Immature Gran % (Auto) 0.400, Neut % (Auto) 78.2 H, Lymph % (Auto) 15.6 L, [place] % (Auto) 5.3, Eos % (Auto) 0.0, Baso % (Auto) 0.5, Absolute Neuts (auto) 6.1, Absolute Lymphs (auto) 1.21, Nucleated RBC % 0, Sodium 140, Potassium 4.6, Chloride 108 H, Carbon Dioxide 24.0, Anion Gap 8, BUN 16, Creatinine 0.89, EstimCreat Clear Calc 56.49, Est GFR (MDRD) Af Amer 85, Est GFR (MDRD) Non-Af 70, BUN/Creatinine Ratio 18.0, Glucose 116 H, Calcium 9.2, TSH 0.51 Micro: Microbiology 07/24/23 14:14 Nasal Secretion SARS-CoV-2 & FLU Antigen (Rapid) - Final Influenzae A Radiography Diagnostic Testing: Radiology Impression Chest X-Ray 07/24/23 12:58 IMPRESSION: Hyperinflation. No acute abnormality is seen. Electronically Signed: Miguel Lau MD at 13:12 EST , Physical Exam Const alert and no apparent distress Resp normal respiratory effort, no retractions, no use of accessory muscles and clearto auscultation bilaterally Cardio regular rate, regular rhythm, S1 normal heart sound and S2 normal heart sound GI normal to inspection, nondistended, normoactive bowel sounds, soft to palpation,non-tender and non-distended Neuro Sensorium / Orientation: awake and alert Assessment & Plan Assessment/Plan (1) Dyspnea on exertion: (2) Hypoxia: PLAN: Plan Dyspnea and hypoxia with exertion * Oxygen saturations are stable at rest on room air with sat being between 93 and 97%. Oxygen saturations dropped to mid to upper 70s on room air with exertion * Positive influenza A. BNP is unremarkable and troponin is normal/EKG shows no change. COVID 19 negative. Check respiratory viral panel. * Scheduled and as needed nebulizers. I-S. Acapella * Oral prednisone taper * Ambulatory pulse ox today showed that patient was 90% with ambulation on room air. Therefore not require oxygen upon discharge. * Follow up with pulmonary as outpt. Erythrocytosis * Mild. Likely related with chronic undiagnsed respiratory disorder. Tobacco abuse. No additional work up at this time. 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-#27 mm bioprosthetic Medtronic Velasco mitral valve replacement--> 2008- Echocardiogram done in January and was stable when compared to previous showing an EF of 55%-Follows at [facility] for this * PAF/sick sinus syndrome/third-degree heart hruxf-Zkqq-dhzmdur pacemaker placed in 2008-Last generator change was 09/21/2020-Continue Eliquis-Patient is not on any rate controlling medication * Schizophrenia/bipolar disease-Follows with outpatient psychiatry-Recommend ongoing outpatient follow-up * Severe tardive dyskinesia-Follows with psychiatry-Patient's been on multiple medications to help with this and she states nothing has helped.-Indicates currently not taking anything * Chronic left-sided weakness due to previous stroke-PT/OT evaluation while hosp italized * Obesity-BMI 34.8-Recommend weight loss-Complicates treatment, prognosis, outcomes * Tobacco abuse-Smoking about 1 pack a day-Recommend cessation-Nicotine patch made available DVT prophylaxis: Not indicated as patient is on apixaban CODE STATUS -Full code 07/25/23 1335 <Electronically signed by Stephan Chery DO> Cosigner Signature (if applicable): CC: ~ Signed [facility] Work Phone: 1(888) 736-523012-18-2023 History and physical note Author Merna Scherer [facility] July 24, 2023 2:42pm Note Date/Time July 24, 2023 1:55pm [facility] Medical Records Department [address] [place] [id number] H&P Exam - Hospitalist 07/24/23 1353 MR#: [id number] Acct: [id number] Name: FROILAN GARCÍA Elmer Rep #:[id number] : 1965 57 From: Merna Scherer DO PCP: Dr. Louis Dobbs MD Status:A DM VARSHA Location: [facility] [place] TS369-1 HPI - General General Date of Admission: 07/24/23 Date of Service: 07/24/23 Chief Complaint: Dyspnea with exertion HPI Narrative FROILAN CHESTER, is a 57 F who presented to the emergency department at [facility] on 07/24/2023 with dyspnea on exertion. It apparently has been problematic for couple months but has been worsening as of recently so she came to the emergency department for reevaluation. She does not follow with pulmonary medicine but does follow with cardiology it appears her last appointment there was in October. She had an echocardiogram done 01/10/2023 but showed an EF of 50% with a stable appearing bioprosthetic mitral valve and a mean gradient across her valve with 6.5 mmHg which was stable compared to previous study. She is still smoking a pack of cigarettes a day and does not follow with pulmonary medicine. She states she gets chills every evening but denies any cough, fever, rhinorrhea, nasal congestion, headache, myalgias or dyspnea at rest. She has severe tardive dyskinesia which makes it difficult to obtain a history due to her speech problems related to her tardive dyskinesia. She has had no sick contacts and lives at home with her 14-year-old son. Vital signs on presentation were overall unremarkable other than blood pressure elevation. Her temperature was 98.3, heart rate was 96, blood pressure was 162/113, respiratory rate was anywhere from 16-26 and oxygen saturations were 96% on room air. Her CBC shows normal white count with no left shift and erythrocytosis with a hemoglobin of 15.3. I suspect this is related to chronic hypoxia. Her chemistry panel was unremarkable. Her troponin was 5. Her BNP was 34.1. EKG is a atrial sensed and V paced rhythm without any ST-T wave changes. Her chest x-ray was unremarkable. On exam she had some scattered wheezing most prominent at bilateral bases. The original plan was to discharge the patient and an ambulatory pulse ox was obtained. During ambulation she dropped to 78% on room air therefore admission was required. I am not totally convinced that she is not chronically hypoxic with exertion and this has been worsening over time making her more symptomatic. My plan is to admit her as an observation and treat her for COPD exacerbation and obtain home oxygen for her discharge that she can utilize with exertion and obtain follow-up with pulmonary medicine after discharge. She does need to havePFTs done. We discussed extensively her tobacco abuse and need for cessation. [facility] Medical History (Updated 07/24/23 @ 14:[address] 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 retirement current use of anticoagulant Mitral regurgitation Non-ischemic cardiomyopathy Schizophrenia Sick sinus syndrome Stroke/cerebrovascular accident Tardive dyskinesia Unsteady gait Home Medications mirtazapine 30 mg tablet (Remeron) 30 mg PO QHS Check with primary doctor 03/03/21 [History Last Taken 02/15/22] oxcarbazepine 300 mg tablet (Trileptal) 300 mg PO BID SEIZURES 03/03/21 [History Last Taken 02/16/22] cholecalciferol (vitamin D3) 125 mcg (5,000 unit) capsule 125 mcg PO DAILY supplement 12/14/21 [History Last Taken 02/16/22] docusate sodium 100 mg capsule 100 mg PO BID CONSTPATION 12/14/21 [History Last Taken 02/16/22] rosuvastatin 5 mg tablet 5 mg PO QHS CHOLESTEROL 12/14/21 [History Last Taken 02/10/22] acetaminophen 500 mg tablet 500 mg PO Q6H PRN pain/fever 02/16/22 [History Last Taken Unknown] albuterol sulfate 90 mcg/actuation aerosol inhaler See Rx Instructions .Route .COMPLEX PRN coughing and wheezing 02/16/22 [History Last Taken Unknown] amlodipine 10 mg tablet 10 mg PO DAILY HTN 02/16/22 [History Last Taken 02/16/22] ondansetron 4 mg disintegrating tablet 4 mg PO Q6H PRN Nausea 02/16/22 [History Last Taken 02/16/22] valbenazine 80 mg capsule (Ingrezza) 80 mg PO DAILY TARDIVS DYSKINESIA 02/16/22 [History Last Taken 02/16/22] pantoprazole 40 mg tablet,delayed release 40 mg PO BID 8 weeks #112 tabs 02/23/22 [Rx Last Taken Unknown] clonazepam 0.25 mg disintegrating tablet 0.25 mg PO DAILY 10/14/22 [History Last Taken Unknown] divalproex 125 mg tablet,delayed release (Depakote) 125 mg PO BID 10/14/22 [History Last Taken Unknown] ferrous sulfate 325 mg (65 mg iron) tablet 325 mg PO BID 10/14/22 [History Last Taken Unknown] mecobalamin (vitamin B12) 500 mcg chewable tablet mcg PO DAILY 10/14/22 [History Last Taken Unknown] apixaban 5 mg tablet (Eliquis) 5 mg PO BID #60 tabs 11/14/22 [Rx Last Taken Unknown] Allergy/AdvReac Type Severity Reaction Status Date / Time amoxicillin [Amoxicillin] Allergy Hives Verified 07/24/23 12:22 latex Allergy Rash Verified 07/24/23 12:22 lisinopril Allergy Unknown Verified 07/24/23 12:22 Penicillins Allergy Hives Verified 07/24/23 12:22 venom-honey bee Allergy Swelling Verified 07/24/23 12:22 [bee venom (honey bee)] ciprofloxacin [From Cipro] AdvReac Nausea/Vom/ Verified 07/24/23 12:22 Diarrhea Surgical History History of History of mitral valve replacement with bioprosthetic valve (07/23/09) History of partial colectomy Presence of cardiac pacemaker (09/21/20) Social History household members: children housing: apartment current occupational status: unemployed Smoking Status: Current every day smoker tobacco type: cigarettes second hand exposure: Yes alcohol intake: current alcohol intake frequency: holidays/special occasions only details: RARELY substance use type: does not use caffeine: Yes Type: carbonated beverages Number of servings: 1 what type of physical activity do you participate in: none seatbelt use: always ROS Constitutional Constitutional: Reports chills; Denies anorexia, change in weight, fatigue, fever(s), malaise, night sweats, weakness or other Eyes Eyes: Denies blurry vision, change in eye color, change in vision, discharge from eye(s), double vision, erythema, eye pain, loss of vision or other ENT HEENT: Denies abnormal hearing, dysphagia, ear pain, epistaxis, headache(s), hearing loss, nasal congestion, nasal discharge, post nasal drip, sinus pressure, sore throat or other Cardiovascular Cardiovascular: Denies chest pain, claudication, dyspnea on exertion, edema, lightheadedness, orthopnea, palpitations, paroxysmal nocturnal dyspnea, rapid heart rate, syncope or other Respiratory/Chest Respiratory/Chest: Reports shortness of breath with exertion; Denies cough, dyspnea, excessive phlegm production, hemoptysis, productive cough, shortness ofbreath at rest, wheezing or other Gastrointestinal Gastrointestinal: Denies abdominal pain, coffee ground emesis, constipation, diarrhea, dyspepsia, hematemesis, hematochezia, loose stools, melena, nausea, vomiting or other Genitourinary Genitourinary: Denies burning urination, difficulty urinating, dysuria, hematuria, nocturia, urinary frequency, urinary hesitancy, urinary incontinence,urinary urgency or other Musculoskeletal Musculoskeletal: Denies arthralgias, back pain, joint pain, joint stiffness, joint swelling, myalgias, neck pain or other Neurologic Neurologic: Reports other Details: Chronic tardive dyskinesia ; Denies abnormal gait, abnormal speech, confusion, disequilibrium, dizziness, focal weakness, headache(s), numbness, paresthesias, seizure-like activity, seizures, syncope, tingling or tremor(s) Psychiatric Psychiatric: Reports other Details: Schizophrenia ; Denies anxiety, depression, homicidal ideation or suicidal ideation Endocrine Endocrinology: Denies change in body appearance, cold intolerance, excessive sweating, heat intolerance, polydipsia, polyuria or other Hematologic/Lymphatic Hematologic/Lymphatic: Denies anemia, easy bleeding, easy bruising, lymphadenopathy or other Allergic/Immunologic Allergic/Immunologic: Denies rhinitis, hives, eczemia, asthma or other Vital Signs Vital Signs Vital Signs: 07/24/23 12:12 07/24/23 12:24 07/24/23 12:49 Temperature 98.3 F Temperature Source Oral Pulse Rate 96 Respiratory Rate 26 H Respiratory Effort Short of Breath Respiratory Pattern Tachypnea Blood Pressure 162/113 H Blood Pressure Mean 129 Pulse Ox 96 96 Oxygen Delivery Method Room Air Room Air Room Air Weight Weight: 86.3 kg Body Mass Index (BMI) 34.7 Physical Exam Const alert, oriented x3, no apparent distress and well nourished; Negative for average body habitus or healthy appearing Constitutional Narrative: Middle-aged, white female, sitting up in bed, severe tardive dyskinesia however appears comfortable, nursing at bedside, on room air with no conversational dyspnea and sats are 96% on room air with conversation, patient appears much older than stated age General Appearance: cooperative HEENT normocephalic, head/scalp atraumatic, hearing grossly normal bilaterally and moist oral mucous membranes HEENT Narrative: Edentulous, Mallampati 2, no thrush Eyes PERRL, EOMs intact bilaterally and conjunctivae normal Eyes Narrative: No scleral icterus Neck no lymphadenopathy and supple Neck Narrative: Trachea midline, no thyroid enlargement Resp no retractions and no use of accessory muscles Resp Narrative: Diffusely diminished with few scattered end expiratory wheezes at bilateral bases, oxygen saturations at rest are stable on room air Cardio regular rate, regular rhythm, S1 normal heart sound, S2 normal heart sound, no murmurs, no rub, no gallops and no clicks Cardio Narrative: Heart rhythm is paced GI normal to inspection, nondistended, normoactive bowel sounds, soft to palpation and non-tender Extremity normal to inspection and full ROM Extremity Narrative: Pedal pulses are 2+, patient has clubbing of her nailbeds on her hands, no cyanosis or edema Skin no rashes or lesions noted, no wounds, skin turgor normal, no jaundice and no petechiae Neuro oriented x3, CN's II-XII intact bilaterally, moves all extremities and no focal motor deficits Neuro Narrative: Severe tardive dyskinesia, speech is pressured at times and difficult to understand due to her tardive dyskinesia Speech: Negative for speech normal Psych Psych Narrative: Affect is normal and patient interacts appropriately with good eye contact, moodseems stable Results Lab / Micro Data 07/24/23 12:45 07/24/23 12:45 Labs: Laboratory Results - last 24 hr 07/24/23 12:45: WBC 8.2, RBC 4.74, Hgb 15.3 H, Hct 47.3 H, MCV 99.8 H, MCH 32.3 H, MCHC 32.3, RDW Std Deviation 48.0 H, RDW Coeff of Jonathon 13.0, Plt Count 173, MPV 9.5, Immature Gran % (Auto) 0.200, Neut % (Auto) 67.7, Lymph % (Auto) 19.9, [place] % (Auto) 7.9, Eos % (Auto) 3.3, Baso % (Auto) 1.0, Absolute Neuts (auto) 5.6, Absolute Lymphs (auto) 1.63, Nucleated RBC % 0, Sodium 141, Potassium 4.4, Chloride 110 H, Carbon Dioxide 26.0, Anion Gap 5, BUN 11, Creatinine 0.94, EstimCreat Clear Calc 53.48, Est GFR (MDRD) Af Amer 79, Est GFR (MDRD) Non-Af 65, BUN/Creatinine Ratio 11.7, Glucose 91, Calcium 9.3, Troponin I High Sens 5 Imagaing Radiology Impression Chest X-Ray 07/24/23 12:58 IMPRESSION: Hyperinflation. No acute abnormality is seen. Electronically Signed: Miguel aLu MD at 13:12 EST , Assessment & Plan Assessment/Plan (1) Dyspnea on exertion: (2) Hypoxia: PLAN: Plan Dyspnea and hypoxia with exertion -Oxygen saturations are stable at rest on room air with sat being between 93 and97% -Oxygen saturations dropped to mid to upper 70s on room air with exertion -I am not clear if this is her chronic state or if she has a mild COPD exacerbation causing exertional hypoxia and dyspnea -BNP is unremarkable and troponin is normal/EKG shows no change -Patient with stable recent echocardiogram -Check COVID and flu -Check respiratory viral panel Scheduled and as needed nebulizers -I-S -Acapella -Oral prednisone taper -Will check ambulatory pulse ox in the a.m. and arrange for home oxygen at discharge if still required as I highly suspect she has been having ongoing exertional hypoxia -Extensive conversation with the patient with regards to her ongoing tobacco abuse and strongly recommend cessation -Recommend outpatient pulmonary medicine follow-up after discharge -Would set up appointment prior to discharge as patient needs transportation that way we can help with van transportation for this appointment -Needs outpatient 6-minute walk test and PFTs -High suspicion that patient has COPD at baseline but is undiagnosed Erythrocytosis -Suspect related to ongoing hypoxia with exertion -We will trend -Recommend oxygen supplementation CAD/HTN/HPL -Continue statin -Continue amlodipine -Continue ongoing cardiology follow-up as scheduled History of erosive esophagitis/gastritis/duodenal ulcer disease -Continue home PPI 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 -#27 mm bioprosthetic [employer] Velasco mitral valve replacement--> 2008 -Echocardiogram done in January and was stable when compared to previous showing anEF of 55% -Follows at [facility] for this PAF/sick sinus syndrome/third-degree heart block -Dual-chamber pacemaker placed in 2008 -Last generator change was 09/21/2020 -Continue Eliquis -Patient is not on any rate controlling medication Schizophrenia/bipolar disease -Follows with outpatient psychiatry -Recommend ongoing outpatient follow-up Severe tardive dyskinesia -Follows with psychiatry -Patient's been on multiple medications to help with this and she states nothinghas helped. -Indicates currently not taking anything Chronic left-sided weakness due to previous stroke -PT/OT evaluation while hospitalized Obesity -BMI 34.8 -Recommend weight loss -Complicates treatment, prognosis, outcomes Tobacco abuse -Smoking about 1 pack a day -Recommend cessation -Nicotine patch made available DVT prophylaxis -Continue full dose Eliquis CODE STATUS -Full code Charges/Coding Visit Charges Inpatient E&M: 76056 Init Hosp L2 07/24/23 1442 <Electronically signed by Merna Scherer DO> Cosigner Signature (if applicable): CC: Dr. Merna Scherer DO; Dr. Louis Dobbs MD~ Signed [facility] Work Phone: [phone] Discharge summary Author Lynn Conti [facility] July 24, 2023 2:22pm Note Date/Time July 24, 2023 12:21pm [facility] Medical Records Department [address] [place] [id number] Emergency Department Summary 07/24/23 MR#: [id number] Acct: [id number] Name: FROILAN GARCÍA Rep #:[id number] : 1965 57 From: Arie Thomas MD PCP: Dr. Louis Dobbs MD Status:R EG ER Location: ED <Statement entered by Arie Thomas MD - 07/24/23 14:04> Pt seen & evaluated w/EITAN. I personally interviewed & exam the pt. I was involved in all aspects of pt's orders, interpretation of results & treatment Dr. Thomas: I have personally performed a face to face assessment of the patient and have reviewed the EITAN Note. I performed a substantive portion of the visit including all aspects of the following. My thomas findings include: History is shortness of breath with ambulation times months. Smoker. Does not wear oxygen at home. Takes Eliquis daily. Exam is afebrile. Vital signs noted. Regular rate and rhythm. Lungs clear to auscultation bilaterally, moving a good amount of air. No wheezing. Medical Decision Making: Concern is for COPD exacerbation versus pneumonia versus pneumothorax. I have low suspicion for pulmonary embolism as she has been compliant with her Eliquis. Check chest x-ray. Check labs. No significant anemia. Chest x- ray in 1 view interpreted by myself independently shows no evidence of pneumonia or pneumothorax. Patient has oxygen saturation of 96% on room air at rest. With ambulation she is significantly hypoxic at 78%on room air. I do feel that this is most likely a COPD exacerbation. She will be given a DuoNeb aerosolized treatment. Smoking cessation was discussed. Patient discussed with the hospitalist, Dr. Twyla Scherer, for admission. She would like a BNP added prior to admission. Patient is in stable condition. Other additions or changes: [None] HPI History of Present Illness Chief Complaint: Shortness of Breath Narrative Narrative: 57-year-old female with PMH of HTN, HLD, mitral valve replacement on Eliquis, A- fib, bipolar, tardive dyskinesia presents with worsening dyspnea on exertion. She states has been present for months but worsened over the last couple days. She feels fine at rest. She denies cough or orthopnea. No chest pain, palpitations, or syncope. She smokes 1 PPD and uses an inhaler. 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 Mitral regurgitation Non-ischemic cardiomyopathy Schizophrenia Sick sinus syndrome Stroke/cerebrovascular accident Unsteady gait Home Medications mirtazapine 30 mg tablet (Remeron) 30 mg PO QHS Check with primary doctor 03/03/21 [History Last Taken 02/15/22] oxcarbazepine 300 mg tablet (Trileptal) 300 mg PO BID SEIZURES 03/03/21 [History Last Taken 02/16/22] cholecalciferol (vitamin D3) 125 mcg (5,000 unit) capsule 125 mcg PO DAILY supplement 12/14/21 [History Last Taken 02/16/22] docusate sodium 100 mg capsule 100 mg PO BID CONSTPATION 12/14/21 [History Last Taken 02/16/22] rosuvastatin 5 mg tablet 5 mg PO QHS CHOLESTEROL 12/14/21 [History Last Taken 02/10/22] acetaminophen 500 mg tablet 500 mg PO Q6H PRN pain/fever 02/16/22 [History Last Taken Unknown] albuterol sulfate 90 mcg/actuation aerosol inhaler See Rx Instructions .Route .COMPLEX PRN coughing and wheezing 02/16/22 [History Last Taken Unknown] amlodipine 10 mg tablet 10 mg PO DAILY HTN 02/16/22 [History Last Taken 02/16/22] ondansetron 4 mg disintegrating tablet 4 mg PO Q6H PRN Nausea 02/16/22 [History Last Taken 02/16/22] valbenazine 80 mg capsule (Ingrezza) 80 mg PO DAILY TARDIVS DYSKINESIA 02/16/22 [History Last Taken 02/16/22] pantoprazole 40 mg tablet,delayed release 40 mg PO BID 8 weeks #112 tabs 02/23/22 [Rx Last Taken Unknown] clonazepam 0.25 mg disintegrating tablet 0.25 mg PO DAILY 10/14/22 [History Last Taken Unknown] divalproex 125 mg tablet,delayed release (Depakote) 125 mg PO BID 10/14/22 [History Last Taken Unknown] ferrous sulfate 325 mg (65 mg iron) tablet 325 mg PO BID 10/14/22 [History Last Taken Unknown] mecobalamin (vitamin B12) 500 mcg chewable tablet mcg PO DAILY 10/14/22 [History Last Taken Unknown] apixaban 5 mg tablet (Eliquis) 5 mg PO BID #60 tabs 11/14/22 [Rx Last Taken Unknown] Allergy/AdvReac Type Severity Reaction Status Date / Time amoxicillin [Amoxicillin] Allergy Hives Verified 07/24/23 12:22 latex Allergy Rash Verified 07/24/23 12:22 lisinopril Allergy Unknown Verified 07/24/23 12:22 Penicillins Allergy Hives Verified 07/24/23 12:22 venom-honey bee Allergy Swelling Verified 07/24/23 12:22 [bee venom (honey bee)] ciprofloxacin [From Cipro] AdvReac Nausea/Vom/ Verified 07/24/23 12:22 Diarrhea Surgical History History of History of mitral valve replacement with bioprosthetic valve (07/23/09) History of partial colectomy Presence of cardiac pacemaker (09/21/20) Social History (Updated 07/24/23 @ 12:25 by Gabby Thorpe) household members: children housing: apartment current occupational status: unemployed Smoking Status: Current every day smoker tobacco type: cigarettes second hand exposure: Yes alcohol intake: current alcohol intake frequency: holidays/special occasions only details: RARELY substance use type: does not use caffeine: Yes Type: carbonated beverages Number of servings: 1 what type of physical activity do you participate in: none seatbelt use: always ROS ROS ED ROS Narrative Constitutional: Negative for fever, chills, malaise. CVS: Negative for palpitations, chest pain, syncope. Respiratory: Positive for shortness of breath. Negative for cough, orthopnea. GI: Negative for abdominal pain, nausea, vomiting. EXAM Physical Exam Narrative Exam Narrative: CONST: Patient sitting in no acute distress. EYES: Normal inspection. NECK: Normal inspection. RESP: No respiratory distress, CTAB. CVS: Regular rate and rhythm, no murmur, no gallop. SKIN: Color normal, no rash, warm, dry, intact. EXTREMITIES: Normal appearance, 2+ radial and PT pulses, no pedal edema, no calftenderness. NEURO: Oriented x4. PSYCH: Normal affect. Const Vital Signs: 07/24/23 12:12 07/24/23 12:24 07/24/23 12:49 Temperature 98.3 F Temperature Source Oral Pulse Rate 96 Respiratory Rate 26 H Respiratory Effort Short of Breath Respiratory Pattern Tachypnea Blood Pressure 162/113 H Blood Pressure Mean 129 Pulse Ox 96 96 Oxygen Delivery Method Room Air Room Air Room Air 07/24/23 13:58 07/24/23 14:01 Temperature Temperature Source Pulse Rate 89 91 Respiratory Rate 25 H 16 Respiratory Effort Respiratory Pattern Normal Blood Pressure Blood Pressure Mean Pulse Ox 98 Oxygen Delivery Method MDM MDM MDM Narrative Medical decision making narrative: Patient reports worsening dyspnea on exertion for months. She smokes and has underlying lung disease. She appears well and nontoxic. Vital signs stable. In triage she was listed as tachypneic but she is not during my exam. She speaking full sentences in no distress and lungs are clear. No signs of edema present. Differential includes COPD, pneumonia, ACS. CBC and BMP are unremarkable. EKG is a paced rhythm with no ischemic changes and troponin is 5. CXR shows no acute process. She is compliant with Eliquis for history of A-fib/valve replacement so I do not suspect PE or think a D-dimer is needed. Patient's pulse ox at rest is 94% or above but with ambulation dropped to 78%. I do not have a way to discharge her home with oxygen and she will need admitted. I suspect is from underlying COPD. Case was discussed with the hospitalist for admission. Lab Data Attestation: I reviewed the patient's lab results. Labs: Laboratory Results - last 24 hr 07/24/23 12:45 WBC 8.2 RBC 4.74 Hgb 15.3 H Hct 47.3 H MCV 99.8 H MCH 32.3 H MCHC 32.3 RDW Std Deviation 48.0 H RDW Coeff of Jonathon 13.0 Plt Count 173 MPV 9.5 Immature Gran % (Auto) 0.200 Neut % (Auto) 67.7 Lymph % (Auto) 19.9 [place] % (Auto) 7.9 Eos % (Auto) 3.3 Baso % (Auto) 1.0 Absolute Neuts (auto) 5.6 Absolute Lymphs (auto) 1.63 Nucleated RBC % 0 Sodium 141 Potassium 4.4 Chloride 110 H Carbon Dioxide 26.0 Anion Gap 5 BUN 11 Creatinine 0.94 Estim Creat Clear Calc 53.48 Est GFR (MDRD) Af Amer 79 Est GFR (MDRD) Non-Af 65 BUN/Creatinine Ratio 11.7 Glucose 91 Calcium 9.3 Troponin I High Sens 5 B-Natriuretic Peptide 34.1 Radiography Diagnostic Testing: Clinical Impression(s) from Imaging Studies Chest X-Ray 07/24/23 12:58 IMPRESSION: Hyperinflation. No acute abnormality is seen. Electronically Signed: Miguel Lau MD at 13:12 EST , ED attending interpretation of 2-view chest x-ray shows normal heart size, no acute infiltrate, edema, or effusion. EKG Initial EKG: Attestation: I personally reviewed and interpreted this EKG as follows: Comments: Atrial sensed ventricular paced rhythm at 85 bpm No STEMI Discharge Plan Triage Chief Complaint: Shortness of Breath ED Midlevel Provider: Lynn Conti ED Provider: Arie Thomas Dx/Rx/DC Orders Clinical Impression: Dyspnea on exertion, Tobacco use Instructions: ED Dyspnea Prescriptions: No Action ferrous sulfate 325 mg (65 mg iron) tablet 325 mg PO BID divalproex [Depakote] 125 mg tablet,delayed release (DR/EC) 125 mg PO BID clonazepam 0.25 mg tablet,disintegrating 0.25 mg PO DAILY mecobalamin (vitamin B12) 500 mcg tablet,chewable PO DAILY docusate sodium 100 mg Capsule 100 mg PO BID cholecalciferol (vitamin D3) 125 mcg (5,000 unit) Capsule 125 mcg PO DAILY rosuvastatin 5 mg tablet 5 mg PO QHS acetaminophen 500 mg Tablet 500 mg PO Q6H PRN (Reason: pain/fever) ondansetron 4 mg Tablet,Disintegrating 4 mg PO Q6H PRN (Reason: Nausea) amlodipine 10 mg Tablet 10 mg PO DAILY Ingrezza 80 mg Capsule 80 mg PO DAILY albuterol sulfate 90 mcg/actuation Hfa Aerosol Inhaler See Rx Instructions .ROUTE .COMPLEX PRN (Reason: coughing and wheezing) Rx Instructions: 2 puffs pantoprazole 40 mg tablet,delayed release (DR/EC) 40 mg PO BID 56 Days Qty: 112 0RF oxcarbazepine [Trileptal] 300 mg tablet 300 mg PO BID mirtazapine [Remeron] 30 mg tablet 30 mg PO QHS Eliquis 5 mg tablet 5 mg PO BID Qty: 60 11RF Primary Care Provider: Louis Dobbs Referrals: Louis Dobbs MD [Primary Care Provider] - Disposition Disposition: Home, Self Care What to do if you have Problems For any increased pain, shortness of breath, bleeding, nausea or vomiting, chestpain, or any unexpected problems, contact your Primary Care Provider. Call [facility] ([phone]) or report to the closest Emergency Room. Call 911 if necessary. 07/24/23 1404 <Electronically signed by Arie Thomas MD> Cosigner Signature (if applicable): 07/24/23 1422 <Electronically signed by Lynn CLAUDIO> CC: Dr. Louis Dobbs MD ~ Signed [facility] Work Phone: [phone] 625-966312-18-2023 Discharge summary Author Lynn [facility] July 24, 2023 2:22pm Note Date/Time July 24, 2023 12:21pm [facility] Medical Records Department [address] [place] [address] Emergency Department Summary 07/24/23 MR#: [id number] Acct: [id number] Name: FROILAN GARCÍA Rep #:[id number] : 1965 57 From: Arie Thomas MD PCP: Dr. Louis Dobbs MD Status:R EG ER Location: ED <Statement entered by Arie Thomas MD - 07/24/23 14:04> Pt seen & evaluated w/EITAN. I personally interviewed & exam the pt. I was involved in all aspects of pt's orders, interpretation of results & treatment Dr. Thomas: I have personally performed a face to face assessment of the patient and have reviewed the EITAN Note. I performed a substantive portion of the visit including all aspects of the following. My thomas findings include: History is shortness of breath with ambulation times months. Smoker. Does not wear oxygen at home. Takes Eliquis daily. Exam is afebrile. Vital signs noted. Regular rate and rhythm. Lungs clear to auscultation bilaterally, moving a good amount of air. No wheezing. Medical Decision Making: Concern is for COPD exacerbation versus pneumonia versus pneumothorax. I have low suspicion for pulmonary embolism as she has been compliant with her Eliquis. Check chest x-ray. Check labs. No significant anemia. Chest x- ray in 1 view interpreted by myself independently shows no evidence of pneumonia or pneumothorax. Patient has oxygen saturation of 96% on room air at rest. With ambulation she is significantly hypoxic at 78%on room air. I do feel that this is most likely a COPD exacerbation. She will be given a DuoNeb aerosolized treatment. Smoking cessation was discussed. Patient discussed with the hospitalist, Dr. Twyla Scherer, for admission. She would like a BNP added prior to admission. Patient is in stable condition. Other additions or changes: [None] HPI History of Present Illness Chief Complaint: Shortness of Breath Narrative Narrative: 57-year-old female with PMH of HTN, HLD, mitral valve replacement on Eliquis, A- fib, bipolar, tardive dyskinesia presents with worsening dyspnea on exertion. She states has been present for months but worsened over the last couple days. She feels fine at rest. She denies cough or orthopnea. No chest pain, palpitations, or syncope. She smokes 1 PPD and uses an inhaler. 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 Mitral regurgitation Non-ischemic cardiomyopathy Schizophrenia Sick sinus syndrome Stroke/cerebrovascular accident Unsteady gait Home Medications mirtazapine 30 mg tablet (Remeron) 30 mg PO QHS Check with primary doctor 03/03/21 [History Last Taken 02/15/22] oxcarbazepine 300 mg tablet (Trileptal) 300 mg PO BID SEIZURES 03/03/21 [History Last Taken 02/16/22] cholecalciferol (vitamin D3) 125 mcg (5,000 unit) capsule 125 mcg PO DAILY supplement 12/14/21 [History Last Taken 02/16/22] docusate sodium 100 mg capsule 100 mg PO BID CONSTPATION 12/14/21 [History Last Taken 02/16/22] rosuvastatin 5 mg tablet 5 mg PO QHS CHOLESTEROL 12/14/21 [History Last Taken 02/10/22] acetaminophen 500 mg tablet 500 mg PO Q6H PRN pain/fever 02/16/22 [History Last Taken Unknown] albuterol sulfate 90 mcg/actuation aerosol inhaler See Rx Instructions .Route .COMPLEX PRN coughing and wheezing 02/16/22 [History Last Taken Unknown] amlodipine 10 mg tablet 10 mg PO DAILY HTN 02/16/22 [History Last Taken 02/16/22] ondansetron 4 mg disintegrating tablet 4 mg PO Q6H PRN Nausea 02/16/22 [History Last Taken 02/16/22] valbenazine 80 mg capsule (Ingrezza) 80 mg PO DAILY TARDIVS DYSKINESIA 02/16/22 [History Last Taken 02/16/22] pantoprazole 40 mg tablet,delayed release 40 mg PO BID 8 weeks #112 tabs 02/23/22 [Rx Last Taken Unknown] clonazepam 0.25 mg disintegrating tablet 0.25 mg PO DAILY 10/14/22 [History Last Taken Unknown] divalproex 125 mg tablet,delayed release (Depakote) 125 mg PO BID 10/14/22 [History Last Taken Unknown] ferrous sulfate 325 mg (65 mg iron) tablet 325 mg PO BID 10/14/22 [History Last Taken Unknown] mecobalamin (vitamin B12) 500 mcg chewable tablet mcg PO DAILY 10/14/22 [History Last Taken Unknown] apixaban 5 mg tablet (Eliquis) 5 mg PO BID #60 tabs 11/14/22 [Rx Last Taken Unknown] Allergy/AdvReac Type Severity Reaction Status Date / Time amoxicillin [Amoxicillin] Allergy Hives Verified 07/24/23 12:22 latex Allergy Rash Verified 07/24/23 12:22 lisinopril Allergy Unknown Verified 07/24/23 12:22 Penicillins Allergy Hives Verified 07/24/23 12:22 venom-honey bee Allergy Swelling Verified 07/24/23 12:22 [bee venom (honey bee)] ciprofloxacin [From Cipro] AdvReac Nausea/Vom/ Verified 07/24/23 12:22 Diarrhea Surgical History History of History of mitral valve replacement with bioprosthetic valve (07/23/09) History of partial colectomy Presence of cardiac pacemaker (09/21/20) Social History (Updated 07/24/23 @ 12:25 by Gabby Thorpe) household members: children housing: apartment current occupational status: unemployed Smoking Status: Current every day smoker tobacco type: cigarettes second hand exposure: Yes alcohol intake: current alcohol intake frequency: holidays/special occasions only details: RARELY substance use type: does not use caffeine: Yes Type: carbonated beverages Number of servings: 1 what type of physical activity do you participate in: none seatbelt use: always ROS ROS ED ROS Narrative Constitutional: Negative for fever, chills, malaise. CVS: Negative for palpitations, chest pain, syncope. Respiratory: Positive for shortness of breath. Negative for cough, orthopnea. GI: Negative for abdominal pain, nausea, vomiting. EXAM Physical Exam Narrative Exam Narrative: CONST: Patient sitting in no acute distress. EYES: Normal inspection. NECK: Normal inspection. RESP: No respiratory distress, CTAB. CVS: Regular rate and rhythm, no murmur, no gallop. SKIN: Color normal, no rash, warm, dry, intact. EXTREMITIES: Normal appearance, 2+ radial and PT pulses, no pedal edema, no calftenderness. NEURO: Oriented x4. PSYCH: Normal affect. Const Vital Signs: 07/24/23 12:12 07/24/23 12:24 07/24/23 12:49 Temperature 98.3 F Temperature Source Oral Pulse Rate 96 Respiratory Rate 26 H Respiratory Effort Short of Breath Respiratory Pattern Tachypnea Blood Pressure 162/113 H Blood Pressure Mean 129 Pulse Ox 96 96 Oxygen Delivery Method Room Air Room Air Room Air 07/24/23 13:58 07/24/23 14:01 Temperature Temperature Source Pulse Rate 89 91 Respiratory Rate 25 H 16 Respiratory Effort Respiratory Pattern Normal Blood Pressure Blood Pressure Mean Pulse Ox 98 Oxygen Delivery Method MDM MDM MDM Narrative Medical decision making narrative: Patient reports worsening dyspnea on exertion for months. She smokes and has underlying lung disease. She appears well and nontoxic. Vital signs stable. In triage she was listed as tachypneic but she is not during my exam. She speaking full sentences in no distress and lungs are clear. No signs of edema present. Differential includes COPD, pneumonia, ACS. CBC and BMP are unremarkable. EKG is a paced rhythm with no ischemic changes and troponin is 5. CXR shows no acute process. She is compliant with Eliquis for history of A-fib/valve replacement so I do not suspect PE or think a D-dimer is needed. Patient's pulse ox at rest is 94% or above but with ambulation dropped to 78%. I do not have a way to discharge her home with oxygen and she will need admitted. I suspect is from underlying COPD. Case was discussed with the hospitalist for admission. Lab Data Attestation: I reviewed the patient's lab results. Labs: Laboratory Results - last 24 hr 07/24/23 12:45 WBC 8.2 RBC 4.74 Hgb 15.3 H Hct 47.3 H MCV 99.8 H MCH 32.3 H MCHC 32.3 RDW Std Deviation 48.0 H RDW Coeff of Jonathon 13.0 Plt Count 173 MPV 9.5 Immature Gran % (Auto) 0.200 Neut % (Auto) 67.7 Lymph % (Auto) 19.9 [place] % (Auto) 7.9 Eos % (Auto) 3.3 Baso % (Auto) 1.0 Absolute Neuts (auto) 5.6 Absolute Lymphs (auto) 1.63 Nucleated RBC % 0 Sodium 141 Potassium 4.4 Chloride 110 H Carbon Dioxide 26.0 Anion Gap 5 BUN 11 Creatinine 0.94 Estim Creat Clear Calc 53.48 Est GFR (MDRD) Af Amer 79 Est GFR (MDRD) Non-Af 65 BUN/Creatinine Ratio 11.7 Glucose 91 Calcium 9.3 Troponin I High Sens 5 B-Natriuretic Peptide 34.1 Radiography Diagnostic Testing: Clinical Impression(s) from Imaging Studies Chest X-Ray 07/24/23 12:58 IMPRESSION: Hyperinflation. No acute abnormality is seen. Electronically Signed: Miguel Lau MD at 13:12 EST , ED attending interpretation of 2-view chest x-ray shows normal heart size, no acute infiltrate, edema, or effusion. EKG Initial EKG: Attestation: I personally reviewed and interpreted this EKG as follows: Comments: Atrial sensed ventricular paced rhythm at 85 bpm No STEMI Discharge Plan Triage Chief Complaint: Shortness of Breath ED Midlevel Provider: Lynn Conti ED Provider: Arie Thomas Dx/Rx/DC Orders Clinical Impression: Dyspnea on exertion, Tobacco use Instructions: ED Dyspnea Prescriptions: No Action ferrous sulfate 325 mg (65 mg iron) tablet 325 mg PO BID divalproex [Depakote] 125 mg tablet,delayed release (DR/EC) 125 mg PO BID clonazepam 0.25 mg tablet,disintegrating 0.25 mg PO DAILY mecobalamin (vitamin B12) 500 mcg tablet,chewable PO DAILY docusate sodium 100 mg Capsule 100 mg PO BID cholecalciferol (vitamin D3) 125 mcg (5,000 unit) Capsule 125 mcg PO DAILY rosuvastatin 5 mg tablet 5 mg PO QHS acetaminophen 500 mg Tablet 500 mg PO Q6H PRN (Reason: pain/fever) ondansetron 4 mg Tablet,Disintegrating 4 mg PO Q6H PRN (Reason: Nausea) amlodipine 10 mg Tablet 10 mg PO DAILY Ingrezza 80 mg Capsule 80 mg PO DAILY albuterol sulfate 90 mcg/actuation Hfa Aerosol Inhaler See Rx Instructions .ROUTE .COMPLEX PRN (Reason: coughing and wheezing) Rx Instructions: 2 puffs pantoprazole 40 mg tablet,delayed release (DR/EC) 40 mg PO BID 56 Days Qty: 112 0RF oxcarbazepine [Trileptal] 300 mg tablet 300 mg PO BID mirtazapine [Remeron] 30 mg tablet 30 mg PO QHS Eliquis 5 mg tablet 5 mg PO BID Qty: 60 11RF Primary Care Provider: Louis Dobbs Referrals: Louis Dobbs MD [Primary Care Provider] - Disposition Disposition: Home, Self Care What to do if you have Problems For any increased pain, shortness of breath, bleeding, nausea or vomiting, chestpain, or any unexpected problems, contact your Primary Care Provider. Call [facility] ([phone]) or report to the closest Emergency Room. Call 911 if necessary. 07/24/23 1404 <Electronically signed by Arie Thomas MD> Cosigner Signature (if applicable): 07/24/23 1422 <Electronically signed by Lynn CLAUDIO> CC: Dr. Louis Dobbs MD ~ Signed [facility] Work Phone: 1(292) 336-128011-19-2023 Discharge summary Author Bryson Hua [facility] June 25, 2023 6:54am Note Date/Time June 25, 2023 5:29am [facility] Medical Records Department [address] [place] [address] Emergency Department Summary 06/25/23 MR#: [id number] Acct: [id number] Name: FROILAN GARCÍA Rep #:[id number] : 1965 57 From: Bryson Hua MD PCP: Dr. Louis Dobbs MD Status:R EG ER Location: ED HPI History of Present Illness Chief Complaint: Cold Sx Informant: patient Narrative Narrative: Chinedu with left ear pain. Patient states for the last few days her left ear is hurting. She states that she has a headache but it is all at the left ear. She states it hurts almost into the jaw on the left but not down to the front. It is really more near the TMJ area. She denies fevers or chills. Denies coughing or chest pain. No neurologic symptoms. No balance issues. She thinks the hearing is slightly decreased on the left versus the right. No nausea or vomiting. No visual change. [facility] Medical History (Updated 06/25/23 @ 05:[address] 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 Mitral regurgitation Non-ischemic cardiomyopathy Schizophrenia Sick sinus syndrome Stroke/cerebrovascular accident Unsteady gait Home Medications mirtazapine 30 mg tablet (Remeron) 30 mg PO QHS Check with primary doctor 03/03/21 [History Last Taken 02/15/22] oxcarbazepine 300 mg tablet (Trileptal) 300 mg PO BID SEIZURES 03/03/21 [History Last Taken 02/16/22] cholecalciferol (vitamin D3) 125 mcg (5,000 unit) capsule 125 mcg PO DAILY supplement 12/14/21 [History Last Taken 02/16/22] docusate sodium 100 mg capsule 100 mg PO BID CONSTPATION 12/14/21 [History Last Taken 02/16/22] rosuvastatin 5 mg tablet 5 mg PO QHS CHOLESTEROL 12/14/21 [History Last Taken 02/10/22] acetaminophen 500 mg tablet 500 mg PO Q6H PRN pain/fever 02/16/22 [History Last Taken Unknown] albuterol sulfate 90 mcg/actuation aerosol inhaler See Rx Instructions .Route .COMPLEX PRN coughing and wheezing 02/16/22 [History Last Taken Unknown] amlodipine 10 mg tablet 10 mg PO DAILY HTN 02/16/22 [History Last Taken 02/16/22] ondansetron 4 mg disintegrating tablet 4 mg PO Q6H PRN Nausea 02/16/22 [History Last Taken 02/16/22] valbenazine 80 mg capsule (Ingrezza) 80 mg PO DAILY TARDIVS DYSKINESIA 02/16/22 [History Last Taken 02/16/22] pantoprazole 40 mg tablet,delayed release 40 mg PO BID 8 weeks #112 tabs 02/23/22 [Rx Last Taken Unknown] clonazepam 0.25 mg disintegrating tablet 0.25 mg PO DAILY 10/14/22 [History Last Taken Unknown] divalproex 125 mg tablet,delayed release (Depakote) 125 mg PO BID 10/14/22 [History Last Taken Unknown] ferrous sulfate 325 mg (65 mg iron) tablet 325 mg PO BID 10/14/22 [History Last Taken Unknown] mecobalamin (vitamin B12) 500 mcg chewable tablet mcg PO DAILY 10/14/22 [History Last Taken Unknown] apixaban 5 mg tablet (Eliquis) 5 mg PO BID #60 tabs 11/14/22 [Rx Last Taken Unknown] azithromycin 250 mg tablet 250 mg PO DAILY #4 TABLETS 06/25/23 [Rx Last Taken Unknown] Allergy/AdvReac Type Severity Reaction Status Date / Time amoxicillin [Amoxicillin] Allergy Hives Verified 06/25/23 05:20 latex Allergy Rash Verified 06/25/23 05:20 lisinopril Allergy Unknown Verified 06/25/23 05:20 Penicillins Allergy Hives Verified 06/25/23 05:20 venom-honey bee Allergy Swelling Verified 06/25/23 05:20 [bee venom (honey bee)] ciprofloxacin [From Cipro] AdvReac Nausea/Vom/ Verified 06/25/23 05:20 Diarrhea Surgical History History of History of mitral valve replacement with bioprosthetic valve (07/23/09) History of partial colectomy Presence of cardiac pacemaker (09/21/20) Social History current occupational status: unemployed Smoking Status: Current every day smoker tobacco type: cigarettes second hand exposure: Yes alcohol intake: current alcohol intake frequency: holidays/special occasions only details: RARELY substance use type: does not use caffeine: Yes Type: carbonated beverages Number of servings: 1 what type of physical activity do you participate in: none seatbelt use: always ROS ROS ED Constitutional Constitutional ED: Denies chills or fever(s) Eyes Eyes: Denies blurry vision, change in vision or diplopia ENT ENT ED: Reports ear pain; Denies rhinorrhea or sore throat Cardiovascular Cardiovascular: Denies chest pain or palpitations Respiratory/Chest Respiratory/Chest: Denies cough Gastrointestinal Gastrointestinal: Denies nausea or vomiting Musculoskeletal Musculoskeletal: Denies back pain or neck pain Integumentary Denies rash Neurologic Neurologic: Reports other Details: States headache but all her pain is around the left ear. ; Denies paresthesias or weakness Psychiatric Psychiatric: Reports anxiety Endocrine Endocrinology: Denies polydipsia or polyuria Hematologic/Lymphatic Hematologic/Lymphatic: Reports easy bleeding and easy bruising Allergic/Immunologic Allergic/Immunologic ED: Denies urticaria EXAM Physical Exam Narrative Exam Narrative: Neuro: Patient awake alert no acute distress. HEENT: No facial swelling or tenderness. No rash. No vesicles. Negative Mcfarlane sign. She is edentulous. She does have tenderness right at the TMJ and pain with motion. But she states is more inside. The left eardrum is a bitred. There is some fluid. There is no drainage even though she states she feels like it is draining. No swelling of the auricle. Neck is supple free range of motion and no pain. Heart is regular. Lungs are clear bilaterally. Saturations are normal at 98% on room air showing no hypoxia. Abdomen is soft completely nontender. Extremities show no abnormal bruising. Free range of motion. Neurologic: Patient awake alert appropriate consistent informant. Const Vital Signs: 06/25/23 05:17 06/25/23 05:20 Temperature 97.8 F Temperature Source Temporal Pulse Rate 94 Respiratory Rate 16 Respiratory Pattern Normal Blood Pressure 159/98 H Blood Pressure Mean 118 Pulse Ox 98 MDM MDM MDM Narrative Medical decision making narrative: Patient has mixed features. The tympanic membrane the left is a red and irritated. She has some features of TMJ but most of the pain is more internal. But she is not the best informant for details. With her having complaints of headache and being on Eliquis I will scan her head to make sure were not missingan internal issue. My independent interpretation of the patient's CT of the head shows chronic encephalomalacia. I did compare this to prior film of 02/16/2022. I do not see any acute process. Final reading is pending. Reading shows prior changes from her coiling but no acute process. I discussed this with the patient. Radiography Diagnostic Testing: Clinical Impression(s) from Imaging Studies Brain CT 06/25/23 05:29 IMPRESSION: No CT evidence of acute intracranial hemorrhage or injury. Sequela of prior aneurysm coiling infarcts as above. Moderate senescent changes. Electronically Signed: Ko Barnes MD at 6:35 EST , Discharge Plan Triage Chief Complaint: Cold Sx ED Provider: Bryson Hua Dx/Rx/DC Orders Clinical Impression: Acute otitis media, left, Medication induced coagulopathy Instructions: ED Otitis Media Antibiotic ... Prescriptions: New azithromycin [azithromycin] 250 mg tablet 250 mg PO DAILY Qty: 4 0RF No Action ferrous sulfate 325 mg (65 mg iron) tablet 325 mg PO BID divalproex [Depakote] 125 mg tablet,delayed release (DR/EC) 125 mg PO BID clonazepam 0.25 mg tablet,disintegrating 0.25 mg PO DAILY mecobalamin (vitamin B12) 500 mcg tablet,chewable PO DAILY docusate sodium 100 mg Capsule 100 mg PO BID cholecalciferol (vitamin D3) 125 mcg (5,000 unit) Capsule 125 mcg PO DAILY rosuvastatin 5 mg tablet 5 mg PO QHS acetaminophen 500 mg Tablet 500 mg PO Q6H PRN (Reason: pain/fever) ondansetron 4 mg Tablet,Disintegrating 4 mg PO Q6H PRN (Reason: Nausea) amlodipine 10 mg Tablet 10 mg PO DAILY Ingrezza 80 mg Capsule 80 mg PO DAILY albuterol sulfate 90 mcg/actuation Hfa Aerosol Inhaler See Rx Instructions .ROUTE .COMPLEX PRN (Reason: coughing and wheezing) Rx Instructions: 2 puffs pantoprazole 40 mg tablet,delayed release (DR/EC) 40 mg PO BID 56 Days Qty: 112 0RF oxcarbazepine [Trileptal] 300 mg tablet 300 mg PO BID mirtazapine [Remeron] 30 mg tablet 30 mg PO QHS Eliquis 5 mg tablet 5 mg PO BID Qty: 60 11RF Primary Care Provider: Louis Dobbs Referrals: Louis Dobbs MD [Primary Care Provider] - 3-5 Days if not improving Disposition Disposition: Home, Self Care What to do if you have Problems For any increased pain, shortness of breath, bleeding, nausea or vomiting, chestpain, or any unexpected problems, contact your Primary Care Provider. Call [facility] ([phone]) or report to the closest Emergency Room. Call 911 if necessary. 06/25/23 0654 <Electronically signed by Bryson Hua MD> Cosigner Signature (if applicable): CC: Dr. Louis Dobbs MD ~ Signed [facility] Work Phone: 1(877) 824-637811-03-2023 Miscellaneous Notes* Telephone Encounter - Leigh Dotson RN - 06/09/2023 10:14 AM EDT Patient notified. Leigh Dotson RN * Telephone Encounter - Kiley Arias - 06/08/2023 12:30 PM EDT Patient called requesting inhaler but does not remember what the name of the medication is or who and when they prescribed it Please advise [facility] Miscellaneous Notes* Telephone Encounter - Lily Camarena Ma - 05/24/2023 4:23 PM EDT TC to patients insurance. They provided information for [facility] in [place] which is in network.. Referral faxed to [phone] * Telephone Encounter - Melanie Vences RN - 05/24/2023 11:52 AM EDT Melanie from [facility] calls and reports that they received referral for home health but are unable to accept patient at this time due to staffing. Melanie Vences RN documented in this encounterA[facility]10-10-2023 Miscellaneous Notes* Telephone Encounter - Peggy Klein RN - 05/16/2023 12:50 PM EDT Called and spoke with pt. Updated phone #. Appt made for pt for MondayMay 23 at 120 pm. Reiterated with pt several times the date and time of appt and that she needs to come in to continue toget refills on her medications. Pt uses a taxi service and states her egg caser Yasmany helps her with transportation so pt states it is okay to give Yasmany appt confirmation and may schedule appts due to transportation assistance. * Telephone Encounter - Rosa Guerrero LPN - 05/15/2023 9:42 AM EDT Left a message for pt to call the office and ask to speak to a nurse. Rosa Guerrero LPN * Telephone Encounter - Peggy Klein RN - 05/12/2023 10:57 AM EDT Pt needs an appt scheduled as last visit was 10/24/22. She has cancelled two and no showed for two. LM for pt to return call. Also [facility] notified that pt needs to set up an appt to be seen. Symone at [facility] states she will attempt to notify pt as well. Patient has been identified by name and date of : Yes, Provider Dr. Dobbs Date 05/12/23 Time 1100 Pharmacy phones for refill(s): Requested Prescriptions Pending Prescriptions Disp Refills ferrous sulfate 325 mg (65 mg iron) tablet 60 tablet 2 Sig: Take 1 tablet by mouth two times a day with meals. pantoprazole DR (PROTONIX) 20 mg tablet 30 tablet 2 Sig: Take 1 tablet by mouth daily before breakfast. Take on empty stomach, 1/2 hr before meal. Cholecalciferol, Vitamin D3, 125 mcg (5,000 unit) cap 30 capsule 0 Sig: Take 1 capsule by mouth once daily. amLODIPine (NORVASC) 10 mg tablet 30 tablet 2 Sig: Take 1 tablet by mouth once daily. rosuvastatin (CRESTOR) 5 mg tablet 30 tablet 2 Sig: Take 1 tablet by mouth once daily. Date of last office visit in primary care: 10/24/22 No follow up OV scheduled. LM for pt to return call to schedule. see note above. Last 2 Encounter Wt Readings: Date: Wt: 12/08/2022 81.6 kg (180 lb) 10/24/2022 83 kg (183 lb) Previous labs/tests for medication: Cholesterol: HDL Cholesterol (mg/dL) Date Value 06/12/2021 58 LDL Cholesterol (mg/dL) Date Value 06/12/2021 72 ALT (U/L) Date Value 01/07/2021 11 Non HDL Cholesterol (mg/dL) Date Value 06/12/2021 90 Blood Pressure: BUN (mg/dL) Date Value 01/07/2021 18 Sodium (mmol/L) Date Value 01/07/2021 142 Last 1 Encounter BP Readings: Date: BP: 12/08/2022 124/82 Liver Function: ALT (U/L) Date Value 01/07/2021 11 AST (U/L) Date Value 01/07/2021 21 Please advise. Thank you. Peggy Klein, RN documented in this encounterA[facility]07-14-2023 Miscellaneous Notes* Telephone Encounter - Judy Quiros APRN.CNP - 02/17/2023 2:26 PM EDT Patient needs to reschedule missed appointment 01/25 Judy Quiros APRN.CNP * Telephone Encounter - Fela Erickson ANIL - 02/17/2023 2:19 PM EDT Patient has been identified by name and date of : pharmacy phones for refill(s): Requested Prescriptions Pending Prescriptions Disp Refills rosuvastatin (CRESTOR) 5 mg tablet 30 tablet 0 Sig: Take 1 tablet by mouth once daily. amLODIPine (NORVASC) 10 mg tablet 30 tablet 3 Sig: Take 1 tablet by mouth once daily. ferrous sulfate 325 mg (65 mg iron) tablet 60 tablet 3 Sig: Take 1 tablet by mouth twice daily with meals. pantoprazole DR (PROTONIX) 20 mg tablet 30 tablet 3 Sig: Take 1 tablet by mouth daily before breakfast. Take on empty stomach, 1/2 hr before meal. Date of last office visit in primary care: 10/24/2022, no future appt scheduled, pharmacy will let patient know to call to schedule future appt Last 2 Encounter Wt Readings: Date: Wt: 12/08/2022 81.6 kg (180 lb) 10/24/2022 83 kg (183 lb) Previous labs/tests for medication: Cholesterol: HDL Cholesterol (mg/dL) Date Value 06/12/2021 58 LDL Cholesterol (mg/dL) Date Value 06/12/2021 72 ALT (U/L) Date Value 01/07/2021 11 Non HDL Cholesterol (mg/dL) Date Value 06/12/2021 90 Blood Pressure: BUN (mg/dL) Date Value 01/07/2021 18 Sodium (mmol/L) Date Value 01/07/2021 142 Last 1 Encounter BP Readings: Date: BP: 12/08/2022 124/82 Please advise. Thank you. Fela Erickson LPN documented in this encounterA[facility]06-19-2023 Miscellaneous Notes* Telephone Encounter - Elaine Dumas LPN - 01/23/2023 10:15 AM EDT Last OV: 10/24/22 Next scheduled appt: 01/26/23 Patient has been identified by name and date of : Yes Requested Prescriptions Pending Prescriptions Disp Refills rosuvastatin (CRESTOR) 5 mg tablet 30 tablet 3 Sig: Take 1 tablet by mouth once daily. RX INSTRUCTIONS: Pharmacy initiated this request. No need to notify patient. Elaine Dumas LPN documented in this encounterA[facility]06-07-2023 Miscellaneous Notes* Telephone Encounter - Olivia Velasquez RN - 01/11/2023 4:58 PM EDT letter sent * Telephone Encounter - Silvia Yates APRN.CNP - 01/11/2023 4:35 PM EDT Yes, letter may be sent. Silvia Yates APRN.CNP * Telephone Encounter - Olivia Velasquez RN - 01/11/2023 3:47 PM EDT Unable to contact patient by phone. [employer] message sent. Not active on [employer]. Do you want to sendletter ?----- Message from Silvia Yates APRN.CNP sent at 01/11/2023 1:48 PM EDT ----- There is no mammographic or sonographic evidence of malignancy. Return to annual mammogram screening schedule is recommended. If pain continues, she can see general surgery if she desires. Silvia Yates APRN.CONTRACT GRAPHIC DESIGNER documented in this encounterAultman Alliance [facility]06-07-2023 History of Present illness Narrative* Marley Hawkins RDMS - 01/11/2023 1:30 PM EDT Radiology Service Progress Note PATIENT NAME: Froilan García DATE OF SERVICE: January 11, 2023 TIME: 2:49 PM PATIENT IDENTITY VERIFICATION COMPLETED USING TWO (2) IDENTIFIERS: Name and Date of confirmedby patient verbally. FALL SCREENING: Has the patient had 2 falls in the last year or 1 fall with injury or currently using an Ambulatory Assistive Device (Walker, Cane, Wheelchair, Crutches, etc.)? Yes, Patient High Riskfor Falls What interventions were put in place to prevent falls during this visit? Instructed Patient to Callfor Help if Needed, Offered Assistance with Transfers/Clothing, Instructed Patient to Remain Seated(Not on Exam Table) Until Exam, and Increased Observations by Caregivers PATIENT GENDER DATA: Female. status: : No status: NO. PATIENT RELEVANT IMPLANT DATA REVIEWED: Not Applicable RADIOLOGY DEPARTMENT: Ultrasound PERIPHERAL IV DATA: Not applicable SIGNED BY: Marley Hawkins RDMS RVT January 11, 2023 2:49 PM documented in this encounterAultman Alliance [facility] Hospital05-05-2023 Miscellaneous Notes* Letter - Mammography Coordinator - 12/09/2022 2:33 PM EDT December 12, 2022 PID: [id number] Froilan Nicole [address] [place] [address] Dear Ms. García, We are pleased to inform you that the results of your recent breast imaging exam on 12/08/2022 are normal. Early detection of cancer is very important. We also understand recommendations regarding breast cancer screening are controversial. Please discuss with your primary care provider which strategy is best for you and whether a mammogram is right for you. Your imaging studies and report will be kept on file at [facility] as part of your permanent medical record and are available for your continuing care. Thank you for allowing us to help in meeting your health care needs. Sincerely, Dr. Ramey Interpreting Radiologist [facility] (Normal over 40) documented in this encounterAultman Alliance Community Hospital05-04-2023 History of Present illness Narrative* Silvia Yates APRN.CONTRACT GRAPHIC DESIGNER - 12/08/2022 1:12 PM EDT Meteorology Instructor offered: Patient declines. Froilan is a 57 year old who presents for an annual gynecologic exam with complaints, rightbreast pain x 1 year . Pain described a lot of pressure like someone is pushing on it. Unable to wear a bra and is unable to lay on right side. No pain if breast is not touched or if laying on back. Unsure if she feels a lump. No redness. No nipple discharge. Mother recently diagnosed with breast cancer mets to lung so she made appointment to have breast evaluated. Brother had breast cancer in his early 30's. Postmenopausal: Yes since 2013 HRT use: No. Last Pap: 05/31/2018 normal HPV: 05/25/2018 negative History of abnormal pap: Yes 2016 ASCUS HPV negative Last mammogram: 2019 normal History of abnormal mammogram: Yes but normal after diagnostic imaging Sexually active: No Hot flashes: Yes Night sweats: Yes OB History T2 L3 SAB0 IAB0 Ectopic0 Multiple0 Live Births3 Inspector Insulation History LMP: LMP Unknown, Postmenopausal Age at Menarche: Age at First : Age at Menopause: Inspector Insulation History Comments: Sexual Activity: Never; No partner data on record Contraception: No contraception data on record PAST MEDICAL HISTORY Diagnosis Date Acute kidney failure 2005 LISINOPRIL related. 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 Treated for Infective endocarditis Congestive heart failure (HCC) COVID-19 02/2022 CVA (cerebral vascular accident) (HCC) 10/11/2020 Depressive disorder, not elsewhere classified 12/19/2006 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ident (CVA) 05/11/2017 Essential hypertension 11/23/2008 Generalized anxiety disorder Anxiety, Generalized 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 Presumed nfective endocarditis, treated with IV antibiotics, complicated by a stroke. Underwent MVR (#27 Medtronic Velasco bioprosthesis) with Dr Stephan Morales at [facility] on 07/23/2009. Moderate dysplasia of cervix Other and unspecified mitral valve diseases 11/27/2008 Rheumatic valvular heart disease. Pacemaker malfunction 07/01/2011 Paroxysmal atrial fibrillation (HCC) 10/31/2013 Psychosis (HCC) 10/01/2014 Dr. Jonathon Kulkarni[facility] Trilafon at . Sick sinus syndrome (HCC) 2008 PPM Sigmoid diverticulitis 08/11/2016 colon narrowing, resected Tardive dyskinesia 08/18/2015 Tobacco use disorder 12/19/2006 Unspecified asthma(493.90) 12/19/2006 Unspecified essential hypertension 11/23/2008 Unspecified urinary incontinence PAST SURGICAL HISTORY Procedure Laterality Date DELIVERY ONLY 11/2008 , low cervical COLECTOMY PRTL W/COLOPROCTOSTOMY 08/11/2016 COLONOSCOPY FLX DX W/COLLJ SPEC WHEN PFRMD 12/22/2014 Repeat 2024 COLONOSCOPY FLX DX W/COLLJ SPEC WHEN PFRMD 07/12/2016 repeat colonoscopy in one year CONIZATION CERVIX W/WO D&C RPR ELTRD EXC 1996 CYSTOURETHROSCOPY [address] Freire EGD 02/22/2022 erosive esophagitis, gastritis, multiple duodenal ulcers no bleeding ENDOMETRIAL BX W/WO ENDOCERVIX BX W/O DILAT SPX 08/14/2013 IR EMBOLIZATION ARTERIAL / MAPPING (AK) 10/29/2020 right inferior mesenteric artery IR VASCULAR ACCESS TEAM PICC INSERTION RADIO 10/26/2020 NIL ANEURYSM COILING MAINTENANCE ELECTRICIAN Left 10/17/2020 left ant. cerebral art; basilar artery PACEMAKER (PM) 07/28/2009 dual chamber REPLACEMENT MITRAL VALVE W/CARDIOPULMONARY BYP 07/23/2009 Velasco II Porcine Heart Valve TUBAL LIGATION, 2008 FAMILY HISTORY Problem Relation Age of Onset Arthritis Mother Hypertension Mother Heart Father Hypertension Father Psychiatry Father DEPRESSION Thyroid Father Hypertension Sister Hypertension Brother Asthma Son Diabetes Maternal Aunt Diabetes Paternal Aunt Diabetes Paternal Uncle Thyroid Brother SOCIAL HISTORY Social History Tobacco Use Smoking status: Every Day Packs/day: 0.50 Years: 27.00 Pack years: 13.50 Types: Cigarettes Smokeless tobacco: Never Substance Use Topics Alcohol use: No Drug use: No REVIEW OF SYSTEMS Abdomen: No abdominal pain, nausea, vomiting, diarrhea, or constipation. No bloating, early satiety, indigestion, or increased flatulence. Bladder: No dysuria, gross hematuria, urinary frequency, urinary urgency and stress incontinence - has been evaluated by urology Breast: see HPI Allergies and current medication updated:Yes EXAM: BP 124/82 Ht 5' 4 (1.63m) Wt 180 lb (81.6kg) BMI 30.88 kg/(m^2). GENERAL: pleasant, female in no apparent distress HEENT: Normocephalic, atraumatic, mucus membranes moist, and no lesions NECK: Supple, full range of motion, no adenopathy, and thyroid normal DERMATOLOGY: Normal, without lesions, non-icteric, and non-hirsute BREAST: Bilaterally soft, symmetric, no dominant mass, normal nipple-areolar complex, no lymphadenopathy, and no nipple discharge. Right breast with significant tenderness with palpation from 2-7 o'clock. CHEST: Normal inspiratory effort ABDOMEN: soft, non-tender, and no masses PELVIC: external genitalia normal, normal Bartholin's glands, urethra, Fontanelle's glands, no vulvar lesions, no cervical lesions, physiologic discharge present, normal appearing perineal body and perianal region BIMANUAL: uterus normal size, shape and consistency, no adnexal masses, and non-tender RECTOVAGINAL: deferred. NEURO: alert and oriented x3,exam grossly non-focal EXTREMITIES: normal ASSESSMENT/PLAN: 1) Health maintenance: Pap done with HPV. Nutrition, exercise and routine health maintenance exams reviewed. Calcium/Vitamin D supplementation information provided. Colon cancer screening: up to date with screening Mixed incontinence - sees urology 2. Mastalgia - ICD9: 611.71, ICD10: N64.4 - right breast x 1 year - BREAST LTD RIGHT - [facility] BILATERAL 3. Family history of breast cancer in first degree relative - ICD9: V16.3, ICD10: Z80.3 - US BREAST LTD RIGHT - [facility] BILATERAL 4. Family history of breast cancer in male - ICD9: V16.8, ICD10: Z80.3 - US BREAST LTD RIGHT - [facility] BILATERAL 5) Follow up one year or sooner as needed Silvia Yates APRN.CONTRACT GRAPHIC DESIGNER documented in this encounterAultman Alliance [facility] Hospital04-11-2023 Miscellaneous Notes* Telephone Encounter - Sabine Smyth LPN - 11/15/2022 10:30 AM EDT Message left to [facility] with info. * Telephone Encounter - Louis Dobbs MD - 11/15/2022 9:16 AM EDT Noted. INR and Coumadin per [facility]. Appointment if needed for new/worsening pain. * Telephone Encounter - Maylin Poon RN - 11/14/2022 4:10 PM EDT Gaye with [facility] called in to reports Pt had a fall on Monday. She was outside trying to open a chair and fell on her butt on the sidewalk. He son was able to help her up. The Pt did not hit her head. Pt does not have any wounds or bruising. She checked Pts INR today and it was 1.2,sh called it in to [facility]. Pt has chronic leg pain and she reports it's more sore. She told Gaye at first it was an 8/10 and she told her she should go in and get an x-ray done and the Pt then saidthe pain was a 6/10. The Pt reports it's just more sore, nothing is broken. Gaye states Pt is not going to go to the ER. documented in this encounterAultman Alliance [facility] Hospital03-29-2023 Miscellaneous Notes* Telephone Encounter - Kristy Blanco RN - 11/02/2022 9:13 AM EDT Patient has been identified by name and date of : Yes, Kristy Blanco RN Date 11/02/2022 Time 9:20 am Pharmacy phones for refill(s): Requested Prescriptions Pending Prescriptions Disp Refills Cholecalciferol, Vitamin D3, 125 mcg (5,000 unit) cap 90 capsule 1 Sig: Take 1 capsule by mouth once daily. Symone with [facility] calls to request refills for warfarin, vitamin D 3, vitamin C, and vitamin B-12. Call placed to patient to verify vitamin doses and to notify patient warfarin is managed by Dr. Smith. Patient to contact Dr. Smith for warfarin 1 mg and 2 mg orders. Date of last office visit with pcp: 10/24/2022 Future appt: 01/26/2023 Last 2 Encounter Wt Readings: Date: Wt: 10/24/2022 83 kg (183 lb) 06/07/2022 72.6 kg (160 lb) Previous labs/tests for medication: Blood Pressure: BUN (mg/dL) Date Value 01/07/2021 18 Sodium (mmol/L) Date Value 01/07/2021 142 Last 1 Encounter BP Readings: Date: BP: 10/24/2022 120/72 Liver Function: ALT (U/L) Date Value 01/07/2021 11 AST (U/L) Date Value 01/07/2021 21 Please advise. Thank you. Kristy Blanco RN documented in this encounterAultman Alliance [facility] Hospital03-14-2023 History of Present illness Narrative* Sabine Smyth LPN - 10/18/2022 3:34 PM EDT TRANSITION CARE MANAGEMENT (TCM) INITIAL CONTACT Screen Tacker Outreach Provider Action/FYI: TCM Initial contact with patient post discharge, spoke to patient. Patient identified by name and . TRANSITION CARE MANAGEMENT INITIAL OUTREACH DOCUMENTATION: Date of Outreach: 10/18/2022 Outreach Attempt 1: Contact Made Date of Discharge 10/17/2022 Some recent data might be hidden SUMMARY: -Pt discharged from [facility] on 10/17/22. -Admitted for: CVA since 06/17/22 Do you have a hospital follow up appointment with your PCP? Appointment on 10/24/22 with pcp. Pt will have taxi transport Yes. Remind patient of appointment date, time, and location. If not within 14 calendar days of discharge - please reschedule accordingly. MEDICATIONS: Many patients have questions or concerns about their medications once they are home. Were you prescribed any new medications? If yes, what are those medications? Amlodipine besylate 10 mg daily Aripiprazole 2 mg daily Aspercreme lidocaine 4% topically daily. Clonazepam 0.25mg one twice daily Depakote sprindes 125 mcg one twice daily Ferrous sulfate 325 mg one twice daily Ingrezza cap 40 mg once daily Mirazapine 7.5mg daily at bedtime Oxcarbazepine 300mg 2 tablets daily Vitamin B12 500mcg one tablet by mouth daily Vitamin C 500mg one twice daily Vitamin D3 125 one by mouth daily Were you told to hold any medications? No Were any of your medications discontinued? If yes, what are those medications? Amlodipine 5 mg Ingrezza 80 mg Do you have any questions about getting or taking your medications? No Your discharge instructions/After visit Summary (AVS) are important in guiding you through the recovery process. Is there anything I might help you understand? No Do you have all the necessary equipment and supplies at home? Yes Per discharge info from [facility] pt needs 1/2 side rail to a Zmags. Medical records from recent hospitalization: Placed for provider to review documented in this encounterAultman Alliance Community Hospital03-14-2023 Miscellaneous Notes* Telephone Encounter - Sabine Smyth LPN - 10/18/2022 3:03 PM EDT INR IS MANAGED BY CARDIOLOGY. DR SMITH. THEY NEED TO GET THIS RESULT. MESSAGE LEFT TO [facility] WITH THIS INFO. * Telephone Encounter - Conchis Cesar Pss - 10/18/2022 2:28 PM EDT Calling to let us know that patient had INR done this morning. But she also took her warfarin this morning as well so that might affect the results. Just an FYI when INR results come in. Conchis Guerrero Pss documented in this encounterAultman Alliance Community Hospital03-14-2023 Miscellaneous Notes* Addendum Note - Judy Quiros APRN.CNP - 10/18/2022 2:53 PM EDTAddended by: JUDY QUIROS on: 10/18/2022 02:53 PM Modules accepted: Orders * Addendum Note - Lily Camarena Ma - 10/18/2022 2:46 PM EDTAddended by: LILY CAMARENA MA on: 10/18/2022 02:46 PM Modules accepted: Orders * Telephone Encounter - Conchis Jose - 10/18/2022 2:23 PM EDT States while in nursing facility this was prescribed to patient and they are asking for this to be sent to [facility]. acetaminophen 500 mg 3 times daily Conchis Jose documented in this encounterAultman Alliance Community Hospital03-09-2023 Miscellaneous Notes* Telephone Encounter - Sabine Libra MA - 10/13/2022 3:48 PM EST Order called back to Tracy at [facility]. Pt will be using care tenders as she has done in the past for [facility]. She is working on getting her an aide for home care. At this time it looks like it will be with [employer]. Pt previously used outreach lab from [facility] and Dr. Smith is following the INR and coumadin. Pt is seeing Dr. Smith's GRAPHICS MANAGER 10/14/22. It appears he will be following this back. Verified pts appt with pcp 10/24/22. Will call pt to review all again when she is home. * Telephone Encounter - Louis Dobbs MD - 10/13/2022 1:01 PM EST Okay refer to [facility] Home Health for SN, INR, etc. * Telephone Encounter - Rosa Guerrero LPN - 10/12/2022 9:39 AM EST Tracy, community mental health social worker with [facility] calling to let you know pt to d/c from them on 10-17-22. Tracy is trying to get set up who will be doing her INR weekly at home starting next week. Pt was not sure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 11/06/2020 06/14/2021 Malnutrition of mild degree 10/19/202011/2020 Mass of sigmoid colon on CT scan 06/16/2016 12/08/2016 Tardive dyskinesia 08/18/2015 12/08/2016 Psychosis 10/01/2014 05/30/2016 Overview: [facility] Trilafon at . 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 Directly admitted from home after pacemaker check on 06/29 showed noise in V lead. Patient is pacemaker dependent and presents for lead extraction/reimplant. She had the Vlead extracted and replaced, with a generator change out on 07/04/11. CXR post procedure showed no pneumothorax and good lead position. She was discharged home. Pacemaker malfunction 07/01/2011 07/25/2013 Overview: Dual chamber pacemaker implanted 07/28/2009 post MVR (CHB?). Pacemaker check: 06/29/11 noise noted on V lead. Oversensing noted when decreased to 0.5 mV, no oversensing noted with 1.0 mV. PPM dependent. Stable lead impedence and threshold. Reprogramming done in [place] (Dr Ridley), Dr Fraga subsequently contacted and arranged admission for extraction/reimplant which was performed Monday07/04/2011. Heart valve replaced by transplant 10/22/2009 10/07/2010 Sick sinus syndrome 08/27/2009 05/30/2016 Anemia, unspecified 12/01/2008 06/29/2009 Open wound(s) (multiple) of unspecified site(s), complicated 12/01/2008 06/29/2009 Acute, but ill-defined, cerebrovascular disease 11/07/2008 05/11/2017 Overview: On chronic anticoagulation given cardioembolic stroke. Poor growth, affecting management of mother, antepartum condition or complication 10/31/2008 11/27/2008 Backache, unspecified 10/21/2008 06/29/2009 Elderly multigravida with an tepartum condition or complication 09/09/2008 11/27/2008 Supervision of other high-risk (V23.89) 09/09/2008 11/27/2008 Unspecified high-risk 04/10/2008 09/09/2008 Essential hypertension, benign 12/27/2006 0 11/23/2008 Unspecified asthma(493.90) 12/19/200608/18 Agoraphobia with panic disorder 12/19/2006 05/11/2017 documented as of this encounter (statuses as of 12/10/2021) [facility] of Past illness Narrative* Problem Noted Date Resolved Date Epistaxis 11/06/2020 06/14/2021 Malnutrition of mild degree 10/19/2020 11/0 11/2020 Mass of sigmoid colon on CT scan 06/16/2016 12/08/2016 Tardive dyskinesia 08/18/2015 12/08/2016 Psychosis 10/01/2014 05/30/2016 Overview: [facility] Jon[facility]ulk[facility]. Trilafon at . 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 Directly admitted from home after pacemaker check on 06/29 showed noise in V lead. Patient is pacemaker dependent and presents for lead extraction/reimplant. She had the Vlead extracted and replaced, with a generator change out on 07/04/11. CXR post procedure showed no pneumothorax and good lead position. She was discharged home. Pacemaker malfunction 07/01/2011 07/25/2013 Overview: Dual chamber pacemaker implanted 07/28/2009 post MVR (CHB?). Pacemaker check: 06/29/11 noise noted on V lead. Oversensing noted when decreased to 0.5 mV, no oversensing noted with 1.0 mV. PPM dependent. Stable lead impedence and threshold. Reprogramming done in [place] (Dr Rdiley), Dr Fraga subsequently contacted and arranged admission for extraction/reimplant which was performed Monday07/04/2011. Heart valve replaced by transplant 10/22/2009 10/07/2010 Sick sinus syndrome 08/27/2009 05/30/2016 Anemia, unspecified 12/01/2008 06/29/2009 Open wound(s) (multiple) of unspecified site(s), complicated 12/01/2008 06/29/2009 Acute, but ill-defined, cerebrovascular disease 11/07/2008 05/11/2017 Overview: On chronic anticoagulation given cardioembolic stroke. Poor growth, affecting management of mother, antepartum condition or complication 10/31/2008 11/27/2008 Backache, unspecified 10/21/2008 06/29/2009 Elderly multigravida with an tepartum condition or complication 09/09/2008 11/27/2008 Supervision of other high-risk (V23.89) 09/09/2008 11/27/2008 Unspecified high-risk 04/10/2008 09/09/2008 Essential hypertension, benign 12/27/2006 0 11/23/2008 Unspecified asthma(493.90) 12/19/200608/18 Agoraphobia with panic disorder 12/19/2006 05/11/2017 documented as of this encounter (statuses as of 12/14/2021) [facility] of Past illness Narrative* Problem Noted Date Resolved Date Epistaxis 11/06/2020 06/14/2021 Malnutrition of mild degree 10/19/202011/2020 Mass of sigmoid colon on CT scan 06/16/2016 12/08/2016 Tardive dyskinesia 08/18/2015 12/08/2016 Psychosis 10/01/2014 05/30/2016 Overview: [facility]ulk[facility]. Trilafon at . 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 Directly admitted from home after pacemaker check on 06/29 showed noise in V lead. Patient is pacemaker dependent and presents for lead extraction/reimplant. She had the Vlead extracted and replaced, with a generator change out on 07/04/11. CXR post procedure showed no pneumothorax and good lead position. She was discharged home. Pacemaker malfunction 07/01/2011 07/25/2013 Overview: Dual chamber pacemaker implanted 07/28/2009 post MVR (CHB?). Pacemaker check: 06/29/11 noise noted on V lead. Oversensing noted when decreased to 0.5 mV, no oversensing noted with 1.0 mV. PPM dependent. Stable lead impedence and threshold. Reprogramming done in [place] (Dr Ridley), Dr Fraga subsequently contacted and arranged admission for extraction/reimplant which was performed Monday07/04/2011. Heart valve replaced by transplant 10/22/2009 10/07/2010 Sick sinus syndrome 08/27/2009 05/30/2016 Anemia, unspecified 12/01/2008 06/29/2009 Open wound(s) (multiple) of unspecified site(s), complicated 12/01/2008 06/29/2009 Acute, but ill-defined, cerebrovascular disease 11/07/2008 05/11/2017 Overview: On chronic anticoagulation given cardioembolic stroke. Poor growth, affecting management of mother, antepartum condition or complication 10/31/2008 11/27/2008 Backache, unspecified 10/21/2008 06/29/2009 Elderly multigravida with an tepartum condition or complication 09/09/2008 11/27/2008 Supervision of other high-risk (V23.89) 09/09/2008 11/27/2008 Unspecified high-risk 04/10/2008 09/09/2008 Essential hypertension, benign 12/27/2006 0 11/23/2008 Unspecified asthma(493.90) 12/19/200608/18 Agoraphobia with panic disorder 12/19/2006 05/11/2017 documented as of this encounter (statuses as of 12/15/2021) [facility]04[facility] History of Past illness Narrative* Problem Noted Date Resolved Date Epistaxis 11/06/2020 06/14/2021 Malnutrition of mild degree 10/19/2020 11/0 11/2020 Mass of sigmoid colon on CT scan 06/16/2016 12/08/2016 Tardive dyskinesia 08/18/2015 12/08/2016 Psychosis 10/01/2014 05/30/2016 Overview: [facility] Jonathon Kulk[facility] . 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 Directly admitted from home after pacemaker check on 06/29 showed noise in V lead. Patient is pacemaker dependent and presents for lead extraction/reimplant. She had the Vlead extracted and replaced, with a generator change out on 07/04/11. CXR post procedure showed no pneumothorax and good lead position. She was discharged home. Pacemaker malfunction 07/01/2011 07/25/2013 Overview: Dual chamber pacemaker implanted 07/28/2009 post MVR ([facility]?). Pacemaker check: 06/29/11 noise noted on V lead. Oversensing noted when decreased to 0.5 mV, no oversensing noted with 1.0 mV. PPM dependent. Stable lead impedence and threshold. Reprogramming done in [place] (Dr Ridley), Dr Fraga subsequently contacted and arranged admission for extraction/reimplant which was performed Monday07/04/2011. Heart valve replaced by transplant 10/22/2009 10/07/2010 Sick sinus syndrome 08/27/2009 05/30/2016 Anemia, unspecified 12/01/2008 06/29/2009 Open wound(s) (multiple) of unspecified site(s), complicated 12/01/2008 06/29/2009 Acute, but ill-defined, cerebrovascular disease 11/07/2008 05/11/2017 Overview: On chronic anticoagulation given cardioembolic stroke. Poor growth, affecting management of mother, antepartum condition or complication 10/31/2008 11/27/2008 Backache, unspecified 10/21/2008 06/29/2009 Elderly multigravida with an tepartum condition or complication 09/09/2008 11/27/2008 Supervision of other high-risk (V23.89) 09/09/2008 11/27/2008 Unspecified high-risk 04/10/2008 09/09/2008 Essential hypertension, benign 12/27/2006 0 11/23/2008 Unspecified asthma(493.90) 12/19/200608/18 Agoraphobia with panic disorder 12/19/2006 05/11/2017 documented as of this encounter (statuses as of 02/07/2022) [facility]04-02-2021 History of Past illness Narrative* Problem Noted Date Resolved Date Epistaxis 11/06/2020 06/14/2021 Malnutrition of mild degree 10/19/2020 11/0 11/2020 Mass of sigmoid colon on CT scan 06/16/2016 12/08/2016 Tardive dyskinesia 08/18/2015 12/08/2016 Psychosis 10/01/2014 05/30/2016 Overview: Dr[facility] Jonathon Kulkarn[facility]. [facility] at . 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 Directly admitted from home after pacemaker check on 06/29 showed noise in V lead. Patient is pacemaker dependent and presents for lead extraction/reimplant. She had the Vlead extracted and replaced, with a generator change out on 07/04/11. CXR post procedure showed no pneumothorax and good lead position. She was discharged home. Pacemaker malfunction 07/01/2011 07/25/2013 Overview: Dual chamber pacemaker implanted 07/28/2009 post MVR ([facility]?). Pacemaker check: 06/29/11 noise noted on V lead. Oversensing noted when decreased to 0.5 mV, no oversensing noted with 1.0 mV. PPM dependent. Stable lead impedence and threshold. Reprogramming done in [place] (Dr Ridley), Dr Fraga subsequently contacted and arranged admission for extraction/reimplant which was performed Monday07/04/2011. Heart valve replaced by transplant 10/22/2009 10/07/2010 Sick sinus syndrome 08/27/2009 05/30/2016 Anemia, unspecified 12/01/2008 06/29/2009 Open wound(s) (multiple) of unspecified site(s), complicated 12/01/2008 06/29/2009 Acute, but ill-defined, cerebrovascular disease 11/07/2008 05/11/2017 Overview: On chronic anticoagulation given cardioembolic stroke. Poor growth, affecting management of mother, antepartum condition or complication 10/31/2008 11/27/2008 Backache, unspecified 10/21/2008 06/29/2009 Elderly multigravida with an tepartum condition or complication 09/09/2008 11/27/2008 Supervision of other high-risk (V23.89) 09/09/2008 11/27/2008 Unspecified high-risk 04/10/2008 09/09/2008 Essential hypertension, benign 12/27/2006 0 11/23/2008 Unspecified asthma(493.90) 12/19/200608/18 Agoraphobia with panic disorder 12/19/2006 05/11/2017 documented as of this encounter (statuses as of 02/24/2022) [facility]04-02-2021 History of Past illness Narrative* Problem Noted Date Resolved Date Epistaxis 11/06/2020 06/14/2021 Malnutrition of mild degree 10/19/202011/2020 Mass of sigmoid colon on CT scan 06/16/2016 12/08/2016 Tardive dyskinesia 08/18/2015 12/08/2016 Psychosis 10/01/2014 05/30/2016 Overview: [facility] Jonathon Kulkarn[facility]. [facility] at . 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 Directly admitted from home after pacemaker check on 06/29 showed noise in V lead. Patient is pacemaker dependent and presents for lead extraction/reimplant. She had the Vlead extracted and replaced, with a generator change out on 07/04/11. CXR post procedure showed no pneumothorax and good lead position. She was discharged home. Pacemaker malfunction 07/01/2011 07/25/2013 Overview: Dual chamber pacemaker implanted 07/28/2009 post MVR ([facility]?). Pacemaker check: 06/29/11 noise noted on V lead. Oversensing noted when decreased to 0.5 mV, no oversensing noted with 1.0 mV. PPM dependent. Stable lead impedence and threshold. Reprogramming done in [place] (Dr Ridley), Dr Fraga subsequently contacted and arranged admission for extraction/reimplant which was performed Monday07/04/2011. Heart valve replaced by transplant 10/22/2009 10/07/2010 Sick sinus syndrome 08/27/2009 05/30/2016 Anemia, unspecified 12/01/2008 06/29/2009 Open wound(s) (multiple) of unspecified site(s), complicated 12/01/2008 06/29/2009 Acute, but ill-defined, cerebrovascular disease 11/07/2008 05/11/2017 Overview: On chronic anticoagulation given cardioembolic stroke. Poor growth, affecting management of mother, antepartum condition or complication 10/31/2008 11/27/2008 Backache, unspecified 10/21/2008 06/29/2009 Elderly multigravida with an tepartum condition or complication 09/09/2008 11/27/2008 Supervision of other high-risk (V23.89) 09/09/2008 11/27/2008 Unspecified high-risk 04/10/2008 09/09/2008 Essential hypertension, benign 12/27/2006 0 11/23/2008 Unspecified asthma(493.90) 12/19/200608/18 Agoraphobia with panic disorder 12/19/2006 05/11/2017 documented as of this encounter (statuses as of 05/10/2022) [facility]04-02-2021 History of Past illness Narrative* Problem Noted Date Resolved Date Epistaxis 11/06/2020 06/14/2021 Malnutrition of mild degree 10/19/20200 11/2020 Mass of sigmoid colon on CT scan 06/16/2016 12/08/2016 Tardive dyskinesia 08/18/2015 12/08/2016 Psychosis 10/01/2014 05/30/2016 Overview: Dr. Jonathon Kulkarni, [facility]. [facility] at . 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 Directly admitted from home after pacemaker check on 06/29 showed noise in V lead. Patient is pacemaker dependent and presents for lead extraction/reimplant. She had the Vlead extracted and replaced, with a generator change out on 07/04/11. CXR post procedure showed no pneumothorax and good lead position. She was discharged home. Pacemaker malfunction 07/01/2011 07/25/2013 Overview: Dual chamber pacemaker implanted 07/28/2009 post MVR ([facility]?). Pacemaker check: 06/29/11 noise noted on V lead. Oversensing noted when decreased to 0.5 mV, no oversensing noted with 1.0 mV. PPM dependent. Stable lead impedence and threshold. Reprogramming done in [place] (Dr Ridley), Dr Fraga subsequently contacted and arranged admission for extraction/reimplant which was performed Monday07/04/2011. Heart valve replaced by transplant 10/22/2009 10/07/2010 Sick sinus syndrome 08/27/2009 05/30/2016 Anemia, unspecified 12/01/2008 06/29/2009 Open wound(s) (multiple) of unspecified site(s), complicated 12/01/2008 06/29/2009 Acute, but ill-defined, cerebrovascular disease 11/07/2008 05/11/2017 Overview: On chronic anticoagulation given cardioembolic stroke. Poor growth, affecting management of mother, antepartum condition or complication 10/31/2008 11/27/2008 Backache, unspecified 10/21/2008 06/29/2009 Elderly multigravida with an tepartum condition or complication 09/09/2008 11/27/2008 Supervision of other high-risk (V23.89) 09/09/2008 11/27/2008 Unspecified high-risk 04/10/2008 09/09/2008 Essential hypertension, benign 12/27/2006 0 11/23/2008 Unspecified asthma(493.90) 12/19/200608/18 Agoraphobia with panic disorder 12/19/2006 05/11/2017 documented as of this encounter (statuses as of 05/11/2022) [facility]04-02-2021 History of Past illness Narrative* Problem Noted Date Resolved Date Epistaxis 11/06/2020 06/14/2021 Malnutrition of mild degree 10/19/202011/2020 Mass of sigmoid colon on CT scan 06/16/2016 12/08/2016 Tardive dyskinesia 08/18/2015 12/08/2016 Psychosis 10/01/2014 05/30/2016 Overview: [facility] Jonathon Kulkarn[facility]. [facility] at . 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 Directly admitted from home after pacemaker check on 06/29 showed noise in V lead. Patient is pacemaker dependent and presents for lead extraction/reimplant. She had the Vlead extracted and replaced, with a generator change out on 07/04/11. CXR post procedure showed no pneumothorax and good lead position. She was discharged home. Pacemaker malfunction 07/01/2011 07/25/2013 Overview: Dual chamber pacemaker implanted 07/28/2009 post MVR ([facility]?). Pacemaker check: 06/29/11 noise noted on V lead. Oversensing noted when decreased to 0.5 mV, no oversensing noted with 1.0 mV. PPM dependent. Stable lead impedence and threshold. Reprogramming done in [place] (Dr Ridley), Dr Fraga subsequently contacted and arranged admission for extraction/reimplant which was performed Monday07/04/2011. Heart valve replaced by transplant 10/22/2009 10/07/2010 Sick sinus syndrome 08/27/2009 05/30/2016 Anemia, unspecified 12/01/2008 06/29/2009 Open wound(s) (multiple) of unspecified site(s), complicated 12/01/2008 06/29/2009 Acute, but ill-defined, cerebrovascular disease 11/07/2008 05/11/2017 Overview: On chronic anticoagulation given cardioembolic stroke. Poor growth, affecting management of mother, antepartum condition or complication 10/31/2008 11/27/2008 Backache, unspecified 10/21/2008 06/29/2009 Elderly multigravida with an tepartum condition or complication 09/09/2008 11/27/2008 Supervision of other high-risk (V23.89) 09/09/2008 11/27/2008 Unspecified high-risk 04/10/2008 09/09/2008 Essential hypertension, benign 12/27/2006 0 11/23/2008 Unspecified asthma(493.90) 12/19/200608/18 Agoraphobia with panic disorder 12/19/2006 05/11/2017 documented as of this encounter (statuses as of 05/17/2022) [facility]04-02-2021 History of Past illness Narrative* Problem Noted Date Resolved Date Epistaxis 11/06/2020 06/14/2021 Malnutrition of mild degree 10/19/20200 11/2020 Mass of sigmoid colon on CT scan 06/16/2016 12/08/2016 Tardive dyskinesia 08/18/2015 12/08/2016 Psychosis 10/01/2014 05/30/2016 Overview: [facility] Jonathon Kulk[facility]. [facility] at . 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 Directly admitted from home after pacemaker check on 06/29 showed noise in V lead. Patient is pacemaker dependent and presents for lead extraction/reimplant. She had the Vlead extracted and replaced, with a generator change out on 07/04/11. CXR post procedure showed no pneumothorax and good lead position. She was discharged home. Pacemaker malfunction 07/01/2011 07/25/2013 Overview: Dual chamber pacemaker implanted 07/28/2009 post MVR ([facility]?). Pacemaker check: 06/29/11 noise noted on V lead. Oversensing noted when decreased to 0.5 mV, no oversensing noted with 1.0 mV. PPM dependent. Stable lead impedence and threshold. Reprogramming done in [place] (Dr Ridley), Dr Fraga subsequently contacted and arranged admission for extraction/reimplant which was performed Monday07/04/2011. Heart valve replaced by transplant 10/22/2009 10/07/2010 Sick sinus syndrome 08/27/2009 05/30/2016 Anemia, unspecified 12/01/2008 06/29/2009 Open wound(s) (multiple) of unspecified site(s), complicated 12/01/2008 06/29/2009 Acute, but ill-defined, cerebrovascular disease 11/07/2008 05/11/2017 Overview: On chronic anticoagulation given cardioembolic stroke. Poor growth, affecting management of mother, antepartum condition or complication 10/31/2008 11/27/2008 Backache, unspecified 10/21/2008 06/29/2009 Elderly multigravida with an tepartum condition or complication 09/09/2008 11/27/2008 Supervision of other high-risk (V23.89) 09/09/2008 11/27/2008 Unspecified high-risk 04/10/2008 09/09/2008 Essential hypertension, benign 12/27/2006 0 11/23/2008 Unspecified asthma(493.90) 12/19/200608/18 Agoraphobia with panic disorder 12/19/2006 05/11/2017 documented as of this encounter (statuses as of 05/18/2022) [facility]04-02-2021 History of Past illness Narrative* Problem Noted Date Resolved Date Epistaxis 11/06/2020 06/14/2021 Malnutrition of mild degree 10/19/2020 110 11/2020 Mass of sigmoid colon on CT scan 06/16/2016 12/08/2016 Tardive dyskinesia 08/18/2015 12/08/2016 Psychosis 10/01/2014 05/30/2016 Overview: Dr[facility] Jonathon Kulkarni[facility]. [facility] at . 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 Directly admitted from home after pacemaker check on 06/29 showed noise in V lead. Patient is pacemaker dependent and presents for lead extraction/reimplant. She had the Vlead extracted and replaced, with a generator change out on 07/04/11. CXR post procedure showed no pneumothorax and good lead position. She was discharged home. Pacemaker malfunction 07/01/2011 07/25/2013 Overview: Dual chamber pacemaker implanted 07/28/2009 post MVR ([facility]?). Pacemaker check: 06/29/11 noise noted on V lead. Oversensing noted when decreased to 0.5 mV, no oversensing noted with 1.0 mV. PPM dependent. Stable lead impedence and threshold. Reprogramming done in [place] (Dr Ridley), Dr Fraga subsequently contacted and arranged admission for extraction/reimplant which was performed Monday07/04/2011. Heart valve replaced by transplant 10/22/2009 10/07/2010 Sick sinus syndrome 08/27/2009 05/30/2016 Anemia, unspecified 12/01/2008 06/29/2009 Open wound(s) (multiple) of unspecified site(s), complicated 12/01/2008 06/29/2009 Acute, but ill-defined, cerebrovascular disease 11/07/2008 05/11/2017 Overview: On chronic anticoagulation given cardioembolic stroke. Poor growth, affecting management of mother, antepartum condition or complication 10/31/2008 11/27/2008 Backache, unspecified 10/21/2008 06/29/2009 Elderly multigravida with an tepartum condition or complication 09/09/2008 11/27/2008 Supervision of other high-risk (V23.89) 09/09/2008 11/27/2008 Unspecified high-risk 04/10/2008 09/09/2008 Essential hypertension, benign 12/27/2006 0 11/23/2008 Unspecified asthma(493.90) 12/19/200608/18 Agoraphobia with panic disorder 12/19/2006 05/11/2017 documented as of this encounter (statuses as of 05/23/2022) [facility]04-02-2021 History of Past illness Narrative* Problem Noted Date Resolved Date Epistaxis 11/06/2020 06/14/2021 Malnutrition of mild degree 10/19/2020 11/0 11/2020 Mass of sigmoid colon on CT scan 06/16/2016 12/08/2016 Tardive dyskinesia 08/18/2015 12/08/2016 Psychosis 10/01/2014 05/30/2016 Overview: [facility] Jonathon Kulkarni[facility]. [facility] at . 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 Directly admitted from home after pacemaker check on 06/29 showed noise in V lead. Patient is pacemaker dependent and presents for lead extraction/reimplant. She had the Vlead extracted and replaced, with a generator change out on 07/04/11. CXR post procedure showed no pneumothorax and good lead position. She was discharged home. Pacemaker malfunction 07/01/2011 07/25/2013 Overview: Dual chamber pacemaker implanted 07/28/2009 post MVR ([facility]?). Pacemaker check: 06/29/11 noise noted on V lead. Oversensing noted when decreased to 0.5 mV, no oversensing noted with 1.0 mV. PPM dependent. Stable lead impedence and threshold. Reprogramming done in [place] (Dr Ridley), Dr Fraga subsequently contacted and arranged admission for extraction/reimplant which was performed Monday07/04/2011. Heart valve replaced by transplant 10/22/2009 10/07/2010 Sick sinus syndrome 08/27/2009 05/30/2016 Anemia, unspecified 12/01/2008 06/29/2009 Open wound(s) (multiple) of unspecified site(s), complicated 12/01/2008 06/29/2009 Acute, but ill-defined, cerebrovascular disease 11/07/2008 05/11/2017 Overview: On chronic anticoagulation given cardioembolic stroke. Poor growth, affecting management of mother, antepartum condition or complication 10/31/2008 11/27/2008 Backache, unspecified 10/21/2008 06/29/2009 Elderly multigravida with an tepartum condition or complication 09/09/2008 11/27/2008 Supervision of other high-risk (V23.89) 09/09/2008 11/27/2008 Unspecified high-risk 04/10/2008 09/09/2008 Essential hypertension, benign 12/27/2006 0 11/23/2008 Unspecified asthma(493.90) 12/19/200608/18 Agoraphobia with panic disorder 12/19/2006 05/11/2017 documented as of this encounter (statuses as of 05/30/2022) [facility]04-[facility]21 History of Past illness Narrative* Problem Noted Date Resolved Date Epistaxis 11/06/2020 06/14/2021 Malnutrition of mild degree 10/19/2020 11/0 11/2020 Mass of sigmoid colon on CT scan 06/16/2016 12/08/2016 Tardive dyskinesia 08/18/2015 12/08/2016 Psychosis 10/01/2014 05/30/2016 Overview: [facility] Jonathon Kulkarni[facility]. [facility] at . 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 Directly admitted from home after pacemaker check on 06/29 showed noise in V lead. Patient is pacemaker dependent and presents for lead extraction/reimplant. She had the Vlead extracted and replaced, with a generator change out on 07/04/11. CXR post procedure showed no pneumothorax and good lead position. She was discharged home. Pacemaker malfunction 07/01/2011 07/25/2013 Overview: Dual chamber pacemaker implanted 07/28/2009 post MVR ([facility]?). Pacemaker check: 06/29/11 noise noted on V lead. Oversensing noted when decreased to 0.5 mV, no oversensing noted with 1.0 mV. PPM dependent. Stable lead impedence and threshold. Reprogramming done in [place] (Dr Ridley), Dr Fraga subsequently contacted and arranged admission for extraction/reimplant which was performed Monday07/04/2011. Heart valve replaced by transplant 10/22/2009 10/07/2010 Sick sinus syndrome 08/27/2009 05/30/2016 Anemia, unspecified 12/01/2008 06/29/2009 Open wound(s) (multiple) of unspecified site(s), complicated 12/01/2008 06/29/2009 Acute, but ill-defined, cerebrovascular disease 11/07/2008 05/11/2017 Overview: On chronic anticoagulation given cardioembolic stroke. Poor growth, affecting management of mother, antepartum condition or complication 10/31/2008 11/27/2008 Backache, unspecified 10/21/2008 06/29/2009 Elderly multigravida with an tepartum condition or complication 09/09/2008 11/27/2008 Supervision of other high-risk (V23.89) 09/09/2008 11/27/2008 Unspecified high-risk 04/10/2008 09/09/2008 Essential hypertension, benign 12/27/2006 0 11/23/2008 Unspecified asthma(493.90) 12/19/200608/18 Agoraphobia with panic disorder 12/19/2006 05/11/2017 documented as of this encounter (statuses as of 06/01/2022) [facility]21 History of Past illness Narrative* Problem Noted Date Resolved Date Epistaxis 11/06/2020 06/14/2021 Malnutrition of mild degree 10/19/202011/2020 Mass of sigmoid colon on CT scan 06/16/2016 12/08/2016 Tardive dyskinesia 08/18/2015 12/08/2016 Psychosis 10/01/2014 05/30/2016 Overview: [facility] Jonathon Kulkarni[facility]. [facility] at . 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 Directly admitted from home after pacemaker check on 06/29 showed noise in V lead. Patient is pacemaker dependent and presents for lead extraction/reimplant. She had the Vlead extracted and replaced, with a generator change out on 07/04/11. CXR post procedure showed no pneumothorax and good lead position. She was discharged home. Pacemaker malfunction 07/01/2011 07/25/2013 Overview: Dual chamber pacemaker implanted 07/28/2009 post MVR ([facility]?). Pacemaker check: 06/29/11 noise noted on V lead. Oversensing noted when decreased to 0.5 mV, no oversensing noted with 1.0 mV. PPM dependent. Stable lead impedence and threshold. Reprogramming done in [place] (Dr Ridley), Dr Fraga subsequently contacted and arranged admission for extraction/reimplant which was performed Monday07/04/2011. Heart valve replaced by transplant 10/22/2009 10/07/2010 Sick sinus syndrome 08/27/2009 05/30/2016 Anemia, unspecified 12/01/2008 06/29/2009 Open wound(s) (multiple) of unspecified site(s), complicated 12/01/2008 06/29/2009 Acute, but ill-defined, cerebrovascular disease 11/07/2008 05/11/2017 Overview: On chronic anticoagulation given cardioembolic stroke. Poor growth, affecting management of mother, antepartum condition or complication 10/31/2008 11/27/2008 Backache, unspecified 10/21/2008 06/29/2009 Elderly multigravida with an tepartum condition or complication 09/09/2008 11/27/2008 Supervision of other high-risk (V23.89) 09/09/2008 11/27/2008 Unspecified high-risk 04/10/2008 09/09/2008 Essential hypertension, benign 12/27/2006 0 11/23/2008 Unspecified asthma(493.90) 12/19/200608/18 Agoraphobia with panic disorder 12/19/2006 05/11/2017 documented as of this encounter (statuses as of 06/02/2022) [facility]21 History of Past illness Narrative* Problem Noted Date Resolved Date Epistaxis 11/06/2020 06/14/2021 Malnutrition of mild degree 10/19/202011/2020 Mass of sigmoid colon on CT scan 06/16/2016 12/08/2016 Tardive dyskinesia 08/18/2015 12/08/2016 Psychosis 10/01/2014 05/30/2016 Overview: [facility] Jonathon Kulkarni[facility]. [facility] at . 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 Directly admitted from home after pacemaker check on 06/29 showed noise in V lead. Patient is pacemaker dependent and presents for lead extraction/reimplant. She had the Vlead extracted and replaced, with a generator change out on 07/04/11. CXR post procedure showed no pneumothorax and good lead position. She was discharged home. Pacemaker malfunction 07/01/2011 07/25/2013 Overview: Dual chamber pacemaker implanted 07/28/2009 post MVR ([facility]?). Pacemaker check: 06/29/11 noise noted on V lead. Oversensing noted when decreased to 0.5 mV, no oversensing noted with 1.0 mV. PPM dependent. Stable lead impedence and threshold. Reprogramming done in [place] (Dr Ridley), Dr Fraga subsequently contacted and arranged admission for extraction/reimplant which was performed Monday07/04/2011. Heart valve replaced by transplant 10/22/2009 10/07/2010 Sick sinus syndrome 08/27/2009 05/30/2016 Anemia, unspecified 12/01/2008 06/29/2009 Open wound(s) (multiple) of unspecified site(s), complicated 12/01/2008 06/29/2009 Acute, but ill-defined, cerebrovascular disease 11/07/2008 05/11/2017 Overview: On chronic anticoagulation given cardioembolic stroke. Poor growth, affecting management of mother, antepartum condition or complication 10/31/2008 11/27/2008 Backache, unspecified 10/21/2008 06/29/2009 Elderly multigravida with an tepartum condition or complication 09/09/2008 11/27/2008 Supervision of other high-risk (V23.89) 09/09/2008 11/27/2008 Unspecified high-risk 04/10/2008 09/09/2008 Essential hypertension, benign 12/27/2006 0 11/23/2008 Unspecified asthma(493.90) 12/19/200608/18 Agoraphobia with panic disorder 12/19/2006 05/11/2017 documented as of this encounter (statuses as of 06/06/2022) [facility]04-02-2021 History of Past illness Narrative* Problem Noted Date Resolved Date Epistaxis 11/06/2020 06/14/2021 Malnutrition of mild degree 10/19/2020 11/0 11/2020 Mass of sigmoid colon on CT scan 06/16/2016 12/08/2016 Psychosis 10/01/2014 05/30/2016 Overview: [facility] Jon[facility] at . 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 Directly admitted from home after pacemaker check on 06/29 showed noise in V lead. Patient is pacemaker dependent and presents for lead extraction/reimplant. She had the Vlead extracted and replaced, with a generator change out on 07/04/11. CXR post procedure showed no pneumothorax and good lead position. She was discharged home. Pacemaker malfunction 07/01/2011 07/25/2013 Overview: Dual chamber pacemaker implanted 07/28/2009 post MVR ([facility]?). Pacemaker check: 06/29/11 noise noted on V lead. Oversensing noted when decreased to 0.5 mV, no oversensing noted with 1.0 mV. PPM dependent. Stable lead impedence and threshold. Reprogramming done in [place] (Dr Ridley), Dr Fraga subsequently contacted and arranged admission for extraction/reimplant which was performed Monday07/04/2011. Heart valve replaced by transplant 10/22/2009 10/07/2010 Sick sinus syndrome 08/27/2009 05/30/2016 Anemia, unspecified 12/01/2008 06/29/2009 Open wound(s) (multiple) of unspecified site(s), complicated 12/01/2008 06/29/2009 Acute, but ill-defined, cerebrovascular disease 11/07/2008 05/11/2017 Overview: On chronic anticoagulation given cardioembolic stroke. Poor growth, affecting management of mother, antepartum condition or complication 10/31/2008 11/27/2008 Backache, unspecified 10/21/2008 06/29/2009 Elderly multigravida with an tepartum condition or complication 09/09/2008 11/27/2008 Supervision of other high-risk (V23.89) 09/09/2008 11/27/2008 Unspecified high-risk 04/10/2008 09/09/2008 Essential hypertension, benign 12/27/2006 0 11/23/2008 Unspecified asthma(493.90) 12/19/200608/18 Agoraphobia with panic disorder 12/19/2006 05/11/2017 documented as of this encounter (statuses as of 06/20/2022) [facility]04-02-2021 History of Past illness Narrative* Problem Noted Date Resolved Date Epistaxis 11/06/2020 06/14/2021 Malnutrition of mild degree 10/19/2020 110 11/2020 Mass of sigmoid colon on CT scan 06/16/2016 12/08/2016 Psychosis 10/01/2014 05/30/2016 Overview: [facility] Jonathon Kulkarn[facility]. [facility] at . 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 Directly admitted from home after pacemaker check on 06/29 showed noise in V lead. Patient is pacemaker dependent and presents for lead extraction/reimplant. She had the Vlead extracted and replaced, with a generator change out on 07/04/11. CXR post procedure showed no pneumothorax and good lead position. She was discharged home. Pacemaker malfunction 07/01/2011 07/25/2013 Overview: Dual chamber pacemaker implanted 07/28/2009 post MVR ([facility]?). Pacemaker check: 06/29/11 noise noted on V lead. Oversensing noted when decreased to 0.5 mV, no oversensing noted with 1.0 mV. PPM dependent. Stable lead impedence and threshold. Reprogramming done in [place] (Dr Ridley), Dr Fraga subsequently contacted and arranged admission for extraction/reimplant which was performed Monday07/04/2011. Heart valve replaced by transplant 10/22/2009 10/07/2010 Sick sinus syndrome 08/27/2009 05/30/2016 Anemia, unspecified 12/01/2008 06/29/2009 Open wound(s) (multiple) of unspecified site(s), complicated 12/01/2008 06/29/2009 Acute, but ill-defined, cerebrovascular disease 11/07/2008 05/11/2017 Overview: On chronic anticoagulation given cardioembolic stroke. Poor growth, affecting management of mother, antepartum condition or complication 10/31/2008 11/27/2008 Backache, unspecified 10/21/2008 06/29/2009 Elderly multigravida with an tepartum condition or complication 09/09/2008 11/27/2008 Supervision of other high-risk (V23.89) 09/09/2008 11/27/2008 Unspecified high-risk 04/10/2008 09/09/2008 Essential hypertension, benign 12/27/2006 0 11/23/2008 Unspecified asthma(493.90) 12/19/200608/18 Agoraphobia with panic disorder 12/19/2006 05/11/2017 documented as of this encounter (statuses as of 07/08/2022) [facility]04-02-2021 History of Past illness Narrative* Problem Noted Date Resolved Date Epistaxis 11/06/2020 06/14/2021 Malnutrition of mild degree 10/19/2020 11/0 11/2020 Mass of sigmoid colon on CT scan 06/16/2016 12/08/2016 Psychosis 10/01/2014 05/30/2016 Overview: [facility] Jonathon Kulkarn[facility]. [facility] at . 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 Directly admitted from home after pacemaker check on 06/29 showed noise in V lead. Patient is pacemaker dependent and presents for lead extraction/reimplant. She had the Vlead extracted and replaced, with a generator change out on 07/04/11. CXR post procedure showed no pneumothorax and good lead position. She was discharged home. Pacemaker malfunction 07/01/2011 07/25/2013 Overview: Dual chamber pacemaker implanted 07/28/2009 post MVR ([facility]?). Pacemaker check: 06/29/11 noise noted on V lead. Oversensing noted when decreased to 0.5 mV, no oversensing noted with 1.0 mV. PPM dependent. Stable lead impedence and threshold. Reprogramming done in [place] (Dr Ridley), Dr Fraga subsequently contacted and arranged admission for extraction/reimplant which was performed Monday07/04/2011. Heart valve replaced by transplant 10/22/2009 10/07/2010 Sick sinus syndrome 08/27/2009 05/30/2016 Anemia, unspecified 12/01/2008 06/29/2009 Open wound(s) (multiple) of unspecified site(s), complicated 12/01/2008 06/29/2009 Acute, but ill-defined, cerebrovascular disease 11/07/2008 05/11/2017 Overview: On chronic anticoagulation given cardioembolic stroke. Poor growth, affecting management of mother, antepartum condition or complication 10/31/2008 11/27/2008 Backache, unspecified 10/21/2008 06/29/2009 Elderly multigravida with an tepartum condition or complication 09/09/2008 11/27/2008 Supervision of other high-risk (V23.89) 09/09/2008 11/27/2008 Unspecified high-risk 04/10/2008 09/09/2008 Essential hypertension, benign 12/27/2006 0 11/23/2008 Unspecified asthma(493.90) 12/19/200608/18 Agoraphobia with panic disorder 12/19/2006 05/11/2017 documented as of this encounter (statuses as of 07/14/2022) [facility]04-02-2021 History of Past illness Narrative* Problem Noted Date Resolved Date Epistaxis 11/06/2020 06/14/2021 Malnutrition of mild degree 10/19/202011/2020 Mass of sigmoid colon on CT scan 06/16/2016 12/08/2016 Psychosis 10/01/2014 05/30/2016 Overview: [facility] Jonathon Kulkarn[facility]. [facility] at . 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 Directly admitted from home after pacemaker check on 06/29 showed noise in V lead. Patient is pacemaker dependent and presents for lead extraction/reimplant. She had the Vlead extracted and replaced, with a generator change out on 07/04/11. CXR post procedure showed no pneumothorax and good lead position. She was discharged home. Pacemaker malfunction 07/01/2011 07/25/2013 Overview: Dual chamber pacemaker implanted 07/28/2009 post MVR ([facility]?). Pacemaker check: 06/29/11 noise noted on V lead. Oversensing noted when decreased to 0.5 mV, no oversensing noted with 1.0 mV. PPM dependent. Stable lead impedence and threshold. Reprogramming done in [place] (Dr Ridley), Dr Fraga subsequently contacted and arranged admission for extraction/reimplant which was performed Monday07/04/2011. Heart valve replaced by transplant 10/22/2009 10/07/2010 Sick sinus syndrome 08/27/2009 05/30/2016 Anemia, unspecified 12/01/2008 06/29/2009 Open wound(s) (multiple) of unspecified site(s), complicated 12/01/2008 06/29/2009 Acute, but ill-defined, cerebrovascular disease 11/07/2008 05/11/2017 Overview: On chronic anticoagulation given cardioembolic stroke. Poor growth, affecting management of mother, antepartum condition or complication 10/31/2008 11/27/2008 Backache, unspecified 10/21/2008 06/29/2009 Elderly multigravida with an tepartum condition or complication 09/09/2008 11/27/2008 Supervision of other high-risk (V23.89) 09/09/2008 11/27/2008 Unspecified high-risk 04/10/2008 09/09/2008 Essential hypertension, benign 12/27/2006 0 11/23/2008 Unspecified asthma(493.90) 12/19/200608/18 Agoraphobia with panic disorder 12/19/2006 05/11/2017 documented as of this encounter (statuses as of 10/13/2022) [facility]04-02-2021 History of Past illness Narrative* Problem Noted Date Resolved Date Epistaxis 11/06/2020 06/14/2021 Malnutrition of mild degree 10/19/2020 11/0 11/2020 Mass of sigmoid colon on CT scan 06/16/2016 12/08/2016 Psychosis 10/01/2014 05/30/2016 Overview: [facility] Jonathon Kulk[facility]. [facility] at . 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 Directly admitted from home after pacemaker check on 06/29 showed noise in V lead. Patient is pacemaker dependent and presents for lead extraction/reimplant. She had the Vlead extracted and replaced, with a generator change out on 07/04/11. CXR post procedure showed no pneumothorax and good lead position. She was discharged home. Pacemaker malfunction 07/01/2011 07/25/2013 Overview: Dual chamber pacemaker implanted 07/28/2009 post MVR ([facility]?). Pacemaker check: 06/29/11 noise noted on V lead. Oversensing noted when decreased to 0.5 mV, no oversensing noted with 1.0 mV. PPM dependent. Stable lead impedence and threshold. Reprogramming done in [place] (Dr Ridley), Dr Fraga subsequently contacted and arranged admission for extraction/reimplant which was performed Monday07/04/2011. Heart valve replaced by transplant 10/22/2009 10/07/2010 Sick sinus syndrome 08/27/2009 05/30/2016 Anemia, unspecified 12/01/2008 06/29/2009 Open wound(s) (multiple) of unspecified site(s), complicated 12/01/2008 06/29/2009 Acute, but ill-defined, cerebrovascular disease 11/07/2008 05/11/2017 Overview: On chronic anticoagulation given cardioembolic stroke. Poor growth, affecting management of mother, antepartum condition or complication 10/31/2008 11/27/2008 Backache, unspecified 10/21/2008 06/29/2009 Elderly multigravida with an tepartum condition or complication 09/09/2008 11/27/2008 Supervision of other high-risk (V23.89) 09/09/2008 11/27/2008 Unspecified high-risk 04/10/2008 09/09/2008 Essential hypertension, benign 12/27/2006 0 11/23/2008 Unspecified asthma(493.90) 12/19/200608/18 Agoraphobia with panic disorder 12/19/2006 05/11/2017 documented as of this encounter (statuses as of 10/18/2022) [facility]04-02-2021 History of Past illness Narrative* Problem Noted Date Resolved Date Epistaxis 11/06/2020 06/14/2021 Malnutrition of mild degree 10/19/2020 11/0 11/2020 Mass of sigmoid colon on CT scan 06/16/2016 12/08/2016 Psychosis 10/01/2014 05/30/2016 Overview: Dr. Jonathon Kulkarni, [facility]. [facility] at . 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 Directly admitted from home after pacemaker check on 06/29 showed noise in V lead. Patient is pacemaker dependent and presents for lead extraction/reimplant. She had the Vlead extracted and replaced, with a generator change out on 07/04/11. CXR post procedure showed no pneumothorax and good lead position. She was discharged home. Pacemaker malfunction 07/01/2011 07/25/2013 Overview: Dual chamber pacemaker implanted 07/28/2009 post MVR ([facility]?). Pacemaker check: 06/29/11 noise noted on V lead. Oversensing noted when decreased to 0.5 mV, no oversensing noted with 1.0 mV. PPM dependent. Stable lead impedence and threshold. Reprogramming done in [place] (Dr Ridley), Dr Fraga subsequently contacted and arranged admission for extraction/reimplant which was performed Monday07/04/2011. Heart valve replaced by transplant 10/22/2009 10/07/2010 Sick sinus syndrome 08/27/2009 05/30/2016 Anemia, unspecified 12/01/2008 06/29/2009 Open wound(s) (multiple) of unspecified site(s), complicated 12/01/2008 06/29/2009 Acute, but ill-defined, cerebrovascular disease 11/07/2008 05/11/2017 Overview: On chronic anticoagulation given cardioembolic stroke. Poor growth, affecting management of mother, antepartum condition or complication 10/31/2008 11/27/2008 Backache, unspecified 10/21/2008 06/29/2009 Elderly multigravida with an tepartum condition or complication 09/09/2008 11/27/2008 Supervision of other high-risk (V23.89) 09/09/2008 11/27/2008 Unspecified high-risk 04/10/2008 09/09/2008 Essential hypertension, benign 12/27/2006 0 11/23/2008 Unspecified asthma(493.90) 12/19/200608/18 Agoraphobia with panic disorder 12/19/2006 05/11/2017 documented as of this encounter (statuses as of 10/18/2022) [facility]04-02-2021 History of Past illness Narrative* Problem Noted Date Resolved Date Epistaxis 11/06/2020 06/14/2021 Malnutrition of mild degree 10/19/2020 110 11/2020 Mass of sigmoid colon on CT scan 06/16/2016 12/08/2016 Psychosis 10/01/2014 05/30/2016 Overview: [facility] Jonathon Kulkarni[facility]. [facility] at . 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 Directly admitted from home after pacemaker check on 06/29 showed noise in V lead. Patient is pacemaker dependent and presents for lead extraction/reimplant. She had the Vlead extracted and replaced, with a generator change out on 07/04/11. CXR post procedure showed no pneumothorax and good lead position. She was discharged home. Pacemaker malfunction 07/01/2011 07/25/2013 Overview: Dual chamber pacemaker implanted 07/28/2009 post MVR ([facility]?). Pacemaker check: 06/29/11 noise noted on V lead. Oversensing noted when decreased to 0.5 mV, no oversensing noted with 1.0 mV. PPM dependent. Stable lead impedence and threshold. Reprogramming done in [place] (Dr Ridley), Dr Fraga subsequently contacted and arranged admission for extraction/reimplant which was performed Monday07/04/2011. Heart valve replaced by transplant 10/22/2009 10/07/2010 Sick sinus syndrome 08/27/2009 05/30/2016 Anemia, unspecified 12/01/2008 06/29/2009 Open wound(s) (multiple) of unspecified site(s), complicated 12/01/2008 06/29/2009 Acute, but ill-defined, cerebrovascular disease 11/07/2008 05/11/2017 Overview: On chronic anticoagulation given cardioembolic stroke. Poor growth, affecting management of mother, antepartum condition or complication 10/31/2008 11/27/2008 Backache, unspecified 10/21/2008 06/29/2009 Elderly multigravida with an tepartum condition or complication 09/09/2008 11/27/2008 Supervision of other high-risk (V23.89) 09/09/2008 11/27/2008 Unspecified high-risk 04/10/2008 09/09/2008 Essential hypertension, benign 12/27/2006 0 11/23/2008 Unspecified asthma(493.90) 12/19/200608/18 Agoraphobia with panic disorder 12/19/2006 05/11/2017 documented as of this encounter (statuses as of 10/21/2022) [facility]04-[facility]-2021 History of Past illness Narrative* Problem Noted Date Resolved Date Epistaxis 11/06/2020 06/14/2021 Malnutrition of mild degree 10/19/2020 11/0 11/2020 Mass of sigmoid colon on CT scan 06/16/2016 12/08/2016 Psychosis 10/01/2014 05/30/2016 Overview: [facility] Jonathon Kulkarni[facility]. [facility] at . 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 Directly admitted from home after pacemaker check on 06/29 showed noise in V lead. Patient is pacemaker dependent and presents for lead extraction/reimplant. She had the Vlead extracted and replaced, with a generator change out on 07/04/11. CXR post procedure showed no pneumothorax and good lead position. She was discharged home. Pacemaker malfunction 07/01/2011 07/25/2013 Overview: Dual chamber pacemaker implanted 07/28/2009 post MVR ([facility]?). Pacemaker check: 06/29/11 noise noted on V lead. Oversensing noted when decreased to 0.5 mV, no oversensing noted with 1.0 mV. PPM dependent. Stable lead impedence and threshold. Reprogramming done in [place] (Dr Ridley), Dr Fraga subsequently contacted and arranged admission for extraction/reimplant which was performed Monday07/04/2011. Heart valve replaced by transplant 10/22/2009 10/07/2010 Sick sinus syndrome 08/27/2009 05/30/2016 Anemia, unspecified 12/01/2008 06/29/2009 Open wound(s) (multiple) of unspecified site(s), complicated 12/01/2008 06/29/2009 Acute, but ill-defined, cerebrovascular disease 11/07/2008 05/11/2017 Overview: On chronic anticoagulation given cardioembolic stroke. Poor growth, affecting management of mother, antepartum condition or complication 10/31/2008 11/27/2008 Backache, unspecified 10/21/2008 06/29/2009 Elderly multigravida with an tepartum condition or complication 09/09/2008 11/27/2008 Supervision of other high-risk (V23.89) 09/09/2008 11/27/2008 Unspecified high-risk 04/10/2008 09/09/2008 Essential hypertension, benign 12/27/2006 0 11/23/2008 Unspecified asthma(493.90) 12/19/200608/18 Agoraphobia with panic disorder 12/19/2006 05/11/2017 documented as of this encounter (statuses as of 11/02/2022) [facility]04[facility]21 History of Past illness Narrative* Problem Noted Date Resolved Date Epistaxis 11/06/2020 06/14/2021 Malnutrition of mild degree 10/19/202011/2020 Mass of sigmoid colon on CT scan 06/16/2016 12/08/2016 Psychosis 10/01/2014 05/30/2016 Overview: [facility] Jonathon Kulkarni[facility]. [facility] at . 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 Directly admitted from home after pacemaker check on 06/29 showed noise in V lead. Patient is pacemaker dependent and presents for lead extraction/reimplant. She had the Vlead extracted and replaced, with a generator change out on 07/04/11. CXR post procedure showed no pneumothorax and good lead position. She was discharged home. Pacemaker malfunction 07/01/2011 07/25/2013 Overview: Dual chamber pacemaker implanted 07/28/2009 post MVR ([facility]?). Pacemaker check: 06/29/11 noise noted on V lead. Oversensing noted when decreased to 0.5 mV, no oversensing noted with 1.0 mV. PPM dependent. Stable lead impedence and threshold. Reprogramming done in [place] (Dr Ridley), Dr Fraga subsequently contacted and arranged admission for extraction/reimplant which was performed Monday07/04/2011. Heart valve replaced by transplant 10/22/2009 10/07/2010 Sick sinus syndrome 08/27/2009 05/30/2016 Anemia, unspecified 12/01/2008 06/29/2009 Open wound(s) (multiple) of unspecified site(s), complicated 12/01/2008 06/29/2009 Acute, but ill-defined, cerebrovascular disease 11/07/2008 05/11/2017 Overview: On chronic anticoagulation given cardioembolic stroke. Poor growth, affecting management of mother, antepartum condition or complication 10/31/2008 11/27/2008 Backache, unspecified 10/21/2008 06/29/2009 Elderly multigravida with an tepartum condition or complication 09/09/2008 11/27/2008 Supervision of other high-risk (V23.89) 09/09/2008 11/27/2008 Unspecified high-risk 04/10/2008 09/09/2008 Essential hypertension, benign 12/27/2006 0 11/23/2008 Unspecified asthma(493.90) 12/19/200608/18 Agoraphobia with panic disorder 12/19/2006 05/11/2017 documented as of this encounter (statuses as of 11/15/2022) [facility]21 History of Past illness Narrative* Problem Noted Date Resolved Date Epistaxis 11/06/2020 06/14/2021 Malnutrition of mild degree 10/19/2020 11/0 11/2020 Mass of sigmoid colon on CT scan 06/16/2016 12/08/2016 Psychosis 10/01/2014 05/30/2016 Overview: [facility] Jonathon Kulkarni[facility]. [facility] at . 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 Directly admitted from home after pacemaker check on 06/29 showed noise in V lead. Patient is pacemaker dependent and presents for lead extraction/reimplant. She had the Vlead extracted and replaced, with a generator change out on 07/04/11. CXR post procedure showed no pneumothorax and good lead position. She was discharged home. Pacemaker malfunction 07/01/2011 07/25/2013 Overview: Dual chamber pacemaker implanted 07/28/2009 post MVR ([facility]?). Pacemaker check: 06/29/11 noise noted on V lead. Oversensing noted when decreased to 0.5 mV, no oversensing noted with 1.0 mV. PPM dependent. Stable lead impedence and threshold. Reprogramming done in [place] (Dr Ridley), Dr Fraga subsequently contacted and arranged admission for extraction/reimplant which was performed Monday07/04/2011. Heart valve replaced by transplant 10/22/2009 10/07/2010 Sick sinus syndrome 08/27/2009 05/30/2016 Anemia, unspecified 12/01/2008 06/29/2009 Open wound(s) (multiple) of unspecified site(s), complicated 12/01/2008 06/29/2009 Acute, but ill-defined, cerebrovascular disease 11/07/2008 05/11/2017 Overview: On chronic anticoagulation given cardioembolic stroke. Poor growth, affecting management of mother, antepartum condition or complication 10/31/2008 11/27/2008 Backache, unspecified 10/21/2008 06/29/2009 Elderly multigravida with an tepartum condition or complication 09/09/2008 11/27/2008 Supervision of other high-risk (V23.89) 09/09/2008 11/27/2008 Unspecified high-risk 04/10/2008 09/09/2008 Essential hypertension, benign 12/27/2006 0 11/23/2008 Unspecified asthma(493.90) 12/19/200608/18 Agoraphobia with panic disorder 12/19/2006 05/11/2017 documented as of this encounter (statuses as of 12/08/2022) [facility]04-02-2021 History of Past illness Narrative* Problem Noted Date Resolved Date Epistaxis 11/06/2020 06/14/2021 Malnutrition of mild degree 10/19/2020 11/0 11/2020 Mass of sigmoid colon on CT scan 06/16/2016 12/08/2016 Psychosis 10/01/2014 05/30/2016 Overview: Dr. Jonathon Kulkarni, the [facility]. [facility] at . 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 Directly admitted from home after pacemaker check on 06/29 showed noise in V lead. Patient is pacemaker dependent and presents for lead extraction/reimplant. She had the Vlead extracted and replaced, with a generator change out on 07/04/11. CXR post procedure showed no pneumothorax and good lead position. She was discharged home. Pacemaker malfunction 07/01/2011 07/25/2013 Overview: Dual chamber pacemaker implanted 07/28/2009 post MVR ([facility]?). Pacemaker check: 06/29/11 noise noted on V lead. Oversensing noted when decreased to 0.5 mV, no oversensing noted with 1.0 mV. PPM dependent. Stable lead impedence and threshold. Reprogramming done in [place] (Dr Ridley), Dr Fraag subsequently contacted and arranged admission for extraction/reimplant which was performed Monday07/04/2011. Heart valve replaced by transplant 10/22/2009 10/07/2010 Sick sinus syndrome 08/27/2009 05/30/2016 Anemia, unspecified 12/01/2008 06/29/2009 Open wound(s) (multiple) of unspecified site(s), complicated 12/01/2008 06/29/2009 Acute, but ill-defined, cerebrovascular disease 11/07/2008 05/11/2017 Overview: On chronic anticoagulation given cardioembolic stroke. Poor growth, affecting management of mother, antepartum condition or complication 10/31/2008 11/27/2008 Backache, unspecified 10/21/2008 06/29/2009 Elderly multigravida with an tepartum condition or complication 09/09/2008 11/27/2008 Supervision of other high-risk (V23.89) 09/09/2008 11/27/2008 Unspecified high-risk 04/10/2008 09/09/2008 Essential hypertension, benign 12/27/2006 0 11/23/2008 Unspecified asthma(493.90) 12/19/200608/18 Agoraphobia with panic disorder 12/19/2006 05/11/2017 documented as of this encounter (statuses as of 12/13/2022) [facility]04-02-2021 History of Past illness Narrative* Problem Noted Date Resolved Date Epistaxis 11/06/2020 06/14/2021 Malnutrition of mild degree 10/19/202011/2020 Mass of sigmoid colon on CT scan 06/16/2016 12/08/2016 Psychosis 10/01/2014 05/30/2016 Overview: [facility] Kulk[facility] at . 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 Directly admitted from home after pacemaker check on 06/29 showed noise in V lead. Patient is pacemaker dependent and presents for lead extraction/reimplant. She had the Vlead extracted and replaced, with a generator change out on 07/04/11. CXR post procedure showed no pneumothorax and good lead position. She was discharged home. Pacemaker malfunction 07/01/2011 07/25/2013 Overview: Dual chamber pacemaker implanted 07/28/2009 post MVR ([facility]?). Pacemaker check: 06/29/11 noise noted on V lead. Oversensing noted when decreased to 0.5 mV, no oversensing noted with 1.0 mV. PPM dependent. Stable lead impedence and threshold. Reprogramming done in [place] (Dr Ridley), Dr Fraga subsequently contacted and arranged admission for extraction/reimplant which was performed Monday07/04/2011. Heart valve replaced by transplant 10/22/2009 10/07/2010 Sick sinus syndrome 08/27/2009 05/30/2016 Anemia, unspecified 12/01/2008 06/29/2009 Open wound(s) (multiple) of unspecified site(s), complicated 12/01/2008 06/29/2009 Acute, but ill-defined, cerebrovascular disease 11/07/2008 05/11/2017 Overview: On chronic anticoagulation given cardioembolic stroke. Poor growth, affecting management of mother, antepartum condition or complication 10/31/2008 11/27/2008 Backache, unspecified 10/21/2008 06/29/2009 Elderly multigravida with an tepartum condition or complication 09/09/2008 11/27/2008 Supervision of other high-risk (V23.89) 09/09/2008 11/27/2008 Unspecified high-risk 04/10/2008 09/09/2008 Essential hypertension, benign 12/27/2006 0 11/23/2008 Unspecified asthma(493.90) 12/19/200608/18 Agoraphobia with panic disorder 12/19/2006 05/11/2017 documented as of this encounter (statuses as of 01/12/2023) [facility]04-02-2021 History of Past illness Narrative* Problem Noted Date Resolved Date Epistaxis 11/06/2020 06/14/2021 Malnutrition of mild degree 10/19/2020 11/0 11/2020 Mass of sigmoid colon on CT scan 06/16/2016 12/08/2016 Psychosis 10/01/2014 05/30/2016 Overview: [facility] Jonathon Kulk[facility] at . 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 Directly admitted from home after pacemaker check on 06/29 showed noise in V lead. Patient is pacemaker dependent and presents for lead extraction/reimplant. She had the Vlead extracted and replaced, with a generator change out on 07/04/11. CXR post procedure showed no pneumothorax and good lead position. She was discharged home. Pacemaker malfunction 07/01/2011 07/25/2013 Overview: Dual chamber pacemaker implanted 07/28/2009 post MVR ([facility]?). Pacemaker check: 06/29/11 noise noted on V lead. Oversensing noted when decreased to 0.5 mV, no oversensing noted with 1.0 mV. PPM dependent. Stable lead impedence and threshold. Reprogramming done in [place] (Dr Ridley), Dr Fraga subsequently contacted and arranged admission for extraction/reimplant which was performed Monday07/04/2011. Heart valve replaced by transplant 10/22/2009 10/07/2010 Sick sinus syndrome 08/27/2009 05/30/2016 Anemia, unspecified 12/01/2008 06/29/2009 Open wound(s) (multiple) of unspecified site(s), complicated 12/01/2008 06/29/2009 Acute, but ill-defined, cerebrovascular disease 11/07/2008 05/11/2017 Overview: On chronic anticoagulation given cardioembolic stroke. Poor growth, affecting management of mother, antepartum condition or complication 10/31/2008 11/27/2008 Backache, unspecified 10/21/2008 06/29/2009 Elderly multigravida with an tepartum condition or complication 09/09/2008 11/27/2008 Supervision of other high-risk (V23.89) 09/09/2008 11/27/2008 Unspecified high-risk 04/10/2008 09/09/2008 Essential hypertension, benign 12/27/2006 0 11/23/2008 Unspecified asthma(493.90) 12/19/200608/18 Agoraphobia with panic disorder 12/19/2006 05/11/2017 documented as of this encounter (statuses as of 01/23/2023) [facility]04-02-2021 History of Past illness Narrative* Problem Noted Date Diagnosed Date Resolved Date Epistaxis 11/06/2020 06/14/2021 Malnutrition of mild degree 10/19/2020 06/10/2021 Mass of sigmoid colon on CT scan 06/16/2016 12/08/2016 Psychosis 10/01/2014 05/30/2016 Overview: Dr. Jonathon Kulkarni, the [facility]. [facility] at . 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 Directly admitted from home after pacemaker check on 06/29 showed noise in V lead. Patient is pacemaker dependent and presents for lead extraction/reimplant. She had the Vlead extracted and replaced, with a generator change out on 07/04/11. CXR post procedure showed no pneumothorax and good lead position. She was discharged home. Pacemaker malfunction 07/01/20112012 Overview: Dual chamber pacemaker implanted 07/28/2009 post MVR ([facility]?). Pacemaker check: 06/29/11 noise noted on V lead. Oversensing noted when decreased to 0.5 mV, no oversensing noted with 1.0 mV. PPM dependent. Stable lead impedence and threshold. Reprogramming done in [place] (Dr Ridley), Dr Fraga subsequently contacted and arranged admission for extraction/reimplant which was performed Monday07/04/2011. Heart valve replaced by transplant 10/22/2009 10/07/2010 Sick sinus syndrome 08/27/2009 05/30/20 16 Anemia, unspecified 12/01/2008 06/29/20 09 Open wound(s) (multiple) of unspecified site(s), complicated 12/01/2008 06/29/2009 Acute, but ill-defined, cere brovascular disease 11/07/2008 05/11/2017 Overview: On chronic anticoagulation given cardioembolic stroke. Poor growth, affecting management of mother, antepartum condition or complication 10/31/2008 11/27/2008 Backache, unspecified 10/21/20082008 Elderly multigravida with an tepartum condition or complication 09/09/2008 11/27/2008 Supervision of other high-ri sk (V23.89) 09/09/2008 11/27/2008 Unspecified high-risk 04/10/2008 09/09/2008 Essential hypertension, benign 12/27/2006 11/23/2008 Unspecified asthma(493.90) 12/19/2006 0 08/18/2015 Agoraphobia with panic disorder 12/19/2006 05/11/2017 documented as of this encounter (statuses as of 03/21/2023) [facility]04-02-2021 History of Past illness Narrative* Problem Noted Date Diagnosed Date Resolved Date Epistaxis 11/06/2020 06/14/2021 Malnutrition of mild degree 10/19/2020 06/10/2021 Mass of sigmoid colon on CT scan 06/16/2016 12/08/2016 Psychosis 10/01/2014 05/30/2016 Overview: [facility] Jonathon Kulkarni[facility]. [facility] at . 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 Directly admitted from home after pacemaker check on 06/29 showed noise in V lead. Patient is pacemaker dependent and presents for lead extraction/reimplant. She had the Vlead extracted and replaced, with a generator change out on 07/04/11. CXR post procedure showed no pneumothorax and good lead position. She was discharged home. Pacemaker malfunction 07/01/20112012 Overview: Dual chamber pacemaker implanted 07/28/2009 post MVR ([facility]?). Pacemaker check: 06/29/11 noise noted on V lead. Oversensing noted when decreased to 0.5 mV, no oversensing noted with 1.0 mV. PPM dependent. Stable lead impedence and threshold. Reprogramming done in [place] (Dr Ridley), Dr Fraga subsequently contacted and arranged admission for extraction/reimplant which was performed Monday07/04/2011. Heart valve replaced by transplant 10/22/2009 10/07/2010 Sick sinus syndrome 08/27/2009 05/30/20 16 Anemia, unspecified 12/01/2008 06/29/20 09 Open wound(s) (multiple) of unspecified site(s), complicated 12/01/2008 06/29/2009 Acute, but ill-defined, cere brovascular disease 11/07/2008 05/11/2017 Overview: On chronic anticoagulation given cardioembolic stroke. Poor growth, affecting management of mother, antepartum condition or complication 10/31/2008 11/27/2008 Backache, unspecified 10/21/20082008 Elderly multigravida with an tepartum condition or complication 09/09/2008 11/27/2008 Supervision of other high-ri sk (V23.89) 09/09/2008 11/27/2008 Unspecified high-risk 04/10/2008 09/09/2008 Essential hypertension, benign 12/27/2006 11/23/2008 Unspecified asthma(493.90) 12/19/2006 0 08/18/2015 Agoraphobia with panic disorder 12/19/2006 05/11/2017 documented as of this encounter (statuses as of 05/17/2023) [facility]04-02-2021 History of Past illness Narrative* Problem Noted Date Diagnosed Date Resolved Date Epistaxis 11/06/2020 06/14/2021 Malnutrition of mild degree 10/19/2020 06/10/2021 Mass of sigmoid colon on CT scan 06/16/2016 12/08/2016 Psychosis 10/01/2014 05/30/2016 Overview: [facility] Jonathon Kulkarni[facility]. [facility] at . 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 Directly admitted from home after pacemaker check on 06/29 showed noise in V lead. Patient is pacemaker dependent and presents for lead extraction/reimplant. She had the Vlead extracted and replaced, with a generator change out on 07/04/11. CXR post procedure showed no pneumothorax and good lead position. She was discharged home. Pacemaker malfunction 07/01/20112012 Overview: Dual chamber pacemaker implanted 07/28/2009 post MVR ([facility]?). Pacemaker check: 06/29/11 noise noted on V lead. Oversensing noted when decreased to 0.5 mV, no oversensing noted with 1.0 mV. PPM dependent. Stable lead impedence and threshold. Reprogramming done in [place] (Dr Ridley), Dr Fraga subsequently contacted and arranged admission for extraction/reimplant which was performed Monday07/04/2011. Heart valve replaced by transplant 10/22/2009 10/07/2010 Sick sinus syndrome 08/27/2009 05/30/20 16 Anemia, unspecified 12/01/2008 06/29/20 09 Open wound(s) (multiple) of unspecified site(s), complicated 12/01/2008 06/29/2009 Acute, but ill-defined, cere brovascular disease 11/07/2008 05/11/2017 Overview: On chronic anticoagulation given cardioembolic stroke. Poor growth, affecting management of mother, antepartum condition or complication 10/31/2008 11/27/2008 Backache, unspecified 10/21/20082008 Elderly multigravida with an tepartum condition or complication 09/09/2008 11/27/2008 Supervision of other high-ri sk (V23.89) 09/09/2008 11/27/2008 Unspecified high-risk 04/10/2008 09/09/2008 Essential hypertension, benign 12/27/2006 11/23/2008 Unspecified asthma(493.90) 12/19/2006 0 08/18/2015 Agoraphobia with panic disorder 12/19/2006 05/11/2017 documented as of this encounter (statuses as of 05/26/2023) [facility]04-02-2021 History of Past illness Narrative* Problem Noted Date Diagnosed Date Resolved Date Epistaxis 11/06/2020 06/14/2021 Malnutrition of mild degree 10/19/2020 06/10/2021 Mass of sigmoid colon on CT scan 06/16/2016 12/08/2016 Psychosis 10/01/2014 05/30/2016 Overview: [facility] Jonathon Kulkarn[facility]. [facility] at . 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 Directly admitted from home after pacemaker check on 06/29 showed noise in V lead. Patient is pacemaker dependent and presents for lead extraction/reimplant. She had the Vlead extracted and replaced, with a generator change out on 07/04/11. CXR post procedure showed no pneumothorax and good lead position. She was discharged home. Pacemaker malfunction 07/01/20112012 Overview: Dual chamber pacemaker implanted 07/28/2009 post MVR ([facility]?). Pacemaker check: 06/29/11 noise noted on V lead. Oversensing noted when decreased to 0.5 mV, no oversensing noted with 1.0 mV. PPM dependent. Stable lead impedence and threshold. Reprogramming done in [place] (Dr Ridley), Dr Fraga subsequently contacted and arranged admission for extraction/reimplant which was performed Monday07/04/2011. Heart valve replaced by transplant 10/22/2009 10/07/2010 Sick sinus syndrome 08/27/2009 05/30/20 16 Anemia, unspecified 12/01/2008 06/29/20 09 Open wound(s) (multiple) of unspecified site(s), complicated 12/01/2008 06/29/2009 Acute, but ill-defined, cere brovascular disease 11/07/2008 05/11/2017 Overview: On chronic anticoagulation given cardioembolic stroke. Poor growth, affecting management of mother, antepartum condition or complication 10/31/2008 11/27/2008 Backache, unspecified 10/21/20082008 Elderly multigravida with an tepartum condition or complication 09/09/2008 11/27/2008 Supervision of other high-ri sk (V23.89) 09/09/2008 11/27/2008 Unspecified high-risk 04/10/2008 09/09/2008 Essential hypertension, benign 12/27/2006 11/23/2008 Unspecified asthma(493.90) 12/19/2006 0 08/18/2015 Agoraphobia with panic disorder 12/19/2006 05/11/2017 documented as of this encounter (statuses as of 06/09/2023) [facility]04-02-2021 History of Past illness Narrative* Problem Noted Date Diagnosed Date Resolved Date Epistaxis 11/06/2020 06/14/2021 Malnutrition of mild degree 10/19/2020 06/10/2021 Mass of sigmoid colon on CT scan 06/16/2016 12/08/2016 Psychosis 10/01/2014 05/30/2016 Overview: [facility] Jonathon Kulkarni[facility]. [facility] at . 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 Directly admitted from home after pacemaker check on 06/29 showed noise in V lead. Patient is pacemaker dependent and presents for lead extraction/reimplant. She had the Vlead extracted and replaced, with a generator change out on 07/04/11. CXR post procedure showed no pneumothorax and good lead position. She was discharged home. Pacemaker malfunction 07/01/20112012 Overview: Dual chamber pacemaker implanted 07/28/2009 post MVR ([facility]?). Pacemaker check: 06/29/11 noise noted on V lead. Oversensing noted when decreased to 0.5 mV, no oversensing noted with 1.0 mV. PPM dependent. Stable lead impedence and threshold. Reprogramming done in [place] (Dr Ridley), Dr Fraga subsequently contacted and arranged admission for extraction/reimplant which was performed Monday07/04/2011. Heart valve replaced by transplant 10/22/2009 10/07/2010 Sick sinus syndrome 08/27/2009 05/30/20 16 Anemia, unspecified 12/01/2008 06/29/20 09 Open wound(s) (multiple) of unspecified site(s), complicated 12/01/2008 06/29/2009 Acute, but ill-defined, cere brovascular disease 11/07/2008 05/11/2017 Overview: On chronic anticoagulation given cardioembolic stroke. Poor growth, affecting management of mother, antepartum condition or complication 10/31/2008 11/27/2008 Backache, unspecified 10/21/20082008 Elderly multigravida with an tepartum condition or complication 09/09/2008 11/27/2008 Supervision of other high-ri sk (V23.89) 09/09/2008 11/27/2008 Unspecified high-risk 04/10/2008 09/09/2008 Essential hypertension, benign 12/27/2006 11/23/2008 Unspecified asthma(493.90) 12/19/2006 0 08/18/2015 Agoraphobia with panic disorder 12/19/2006 05/11/2017 documented as of this encounter (statuses as of 06/11/2023) [facility]04-[facility]21 History of Past illness Narrative* Problem Noted Date Diagnosed Date Resolved Date Epistaxis 11/06/2020 06/14/2021 Malnutrition of mild degree 10/19/2020 06/10/2021 Mass of sigmoid colon on CT scan 06/16/2016 12/08/2016 Psychosis 10/01/2014 05/30/2016 Overview: Dr. Jonathon Kulkarni, the [facility]. [facility] at . 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 Directly admitted from home after pacemaker check on 06/29 showed noise in V lead. Patient is pacemaker dependent and presents for lead extraction/reimplant. She had the Vlead extracted and replaced, with a generator change out on 07/04/11. CXR post procedure showed no pneumothorax and good lead position. She was discharged home. Pacemaker malfunction 07/01/20112012 Overview: Dual chamber pacemaker implanted 07/28/2009 post MVR ([facility]?). Pacemaker check: 06/29/11 noise noted on V lead. Oversensing noted when decreased to 0.5 mV, no oversensing noted with 1.0 mV. PPM dependent. Stable lead impedence and threshold. Reprogramming done in [place] (Dr Ridley), Dr Fraga subsequently contacted and arranged admission for extraction/reimplant which was performed Monday07/04/2011. Heart valve replaced by transplant 10/22/2009 10/07/2010 Sick sinus syndrome 08/27/2009 05/30/20 16 Anemia, unspecified 12/01/2008 06/29/20 09 Open wound(s) (multiple) of unspecified site(s), complicated 12/01/2008 06/29/2009 Acute, but ill-defined, cere brovascular disease 11/07/2008 05/11/2017 Overview: On chronic anticoagulation given cardioembolic stroke. Poor growth, affecting management of mother, antepartum condition or complication 10/31/2008 11/27/2008 Backache, unspecified 10/21/20082008 Elderly multigravida with an tepartum condition or complication 09/09/2008 11/27/2008 Supervision of other high-ri sk (V23.89) 09/09/2008 11/27/2008 Unspecified high-risk 04/10/2008 09/09/2008 Essential hypertension, benign 12/27/2006 11/23/2008 Unspecified asthma(493.90) 12/19/2006 0 08/18/2015 Agoraphobia with panic disorder 12/19/2006 05/11/2017 documented as of this encounter (statuses as of 09/29/2023) [facility]21 History of Past illness Narrative* Problem Noted Date Diagnosed Date Resolved Date Epistaxis 11/06/2020 06/14/2021 Malnutrition of mild degree 10/19/2020 06/10/2021 Mass of sigmoid colon on CT scan 06/16/2016 12/08/2016 Psychosis 10/01/2014 05/30/2016 Overview: [facility] Jonathon Kulkarni[facility]. [facility] at . 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 Directly admitted from home after pacemaker check on 06/29 showed noise in V lead. Patient is pacemaker dependent and presents for lead extraction/reimplant. She had the Vlead extracted and replaced, with a generator change out on 07/04/11. CXR post procedure showed no pneumothorax and good lead position. She was discharged home. Pacemaker malfunction 07/01/20112012 Overview: Dual chamber pacemaker implanted 07/28/2009 post MVR ([facility]?). Pacemaker check: 06/29/11 noise noted on V lead. Oversensing noted when decreased to 0.5 mV, no oversensing noted with 1.0 mV. PPM dependent. Stable lead impedence and threshold. Reprogramming done in [place] (Dr Ridley), Dr Fraga subsequently contacted and arranged admission for extraction/reimplant which was performed Monday07/04/2011. Heart valve replaced by transplant 10/22/2009 10/07/2010 Sick sinus syndrome 08/27/2009 05/30/20 16 Anemia, unspecified 12/01/2008 06/29/20 09 Open wound(s) (multiple) of unspecified site(s), complicated 12/01/2008 06/29/2009 Acute, but ill-defined, cere brovascular disease 11/07/2008 05/11/2017 Overview: On chronic anticoagulation given cardioembolic stroke. Poor growth, affecting management of mother, antepartum condition or complication 10/31/2008 11/27/2008 Backache, unspecified 10/21/20082008 Elderly multigravida with an tepartum condition or complication 09/09/2008 11/27/2008 Supervision of other high-ri sk (V23.89) 09/09/2008 11/27/2008 Unspecified high-risk 04/10/2008 09/09/2008 Essential hypertension, benign 12/27/2006 11/23/2008 Unspecified asthma(493.90) 12/19/2006 0 08/18/2015 Agoraphobia with panic disorder 12/19/2006 05/11/2017 documented as of this encounter (statuses as of 10/05/2023) [facility]04-02-2021 History of Past illness Narrative* Problem Noted Date Diagnosed Date Resolved Date Epistaxis 11/06/2020 06/14/2021 Malnutrition of mild degree 10/19/2020 06/10/2021 Mass of sigmoid colon on CT scan 06/16/2016 12/08/2016 Psychosis 10/01/2014 05/30/2016 Overview: Dr[facility] Jonathon Kulkarni[facility] Trilafon at . 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 Directly admitted from home after pacemaker check on 06/29 showed noise in V lead. Patient is pacemaker dependent and presents for lead extraction/reimplant. She had the Vlead extracted and replaced, with a generator change out on 07/04/11. CXR post procedure showed no pneumothorax and good lead position. She was discharged home. Pacemaker malfunction 07/01/20112012 Overview: Dual chamber pacemaker implanted 07/28/2009 post MVR ([facility]?). Pacemaker check: 06/29/11 noise noted on V lead. Oversensing noted when decreased to 0.5 mV, no oversensing noted with 1.0 mV. PPM dependent. Stable lead impedence and threshold. Reprogramming done in [place] (Dr Ridley), Dr Fraga subsequently contacted and arranged admission for extraction/reimplant which was performed Monday07/04/2011. Heart valve replaced by transplant 10/22/2009 10/07/2010 Sick sinus syndrome 08/27/2009 05/30/20 16 Anemia, unspecified 12/01/2008 06/29/20 09 Open wound(s) (multiple) of unspecified site(s), complicated 12/01/2008 06/29/2009 Acute, but ill-defined, cere brovascular disease 11/07/2008 05/11/2017 Overview: On chronic anticoagulation given cardioembolic stroke. Poor growth, affecting management of mother, antepartum condition or complication 10/31/2008 11/27/2008 Backache, unspecified 10/21/20082008 Elderly multigravida with an tepartum condition or complication 09/09/2008 11/27/2008 Supervision of other high-ri sk (V23.89) 09/09/2008 11/27/2008 Unspecified high-risk 04/10/2008 09/09/2008 Essential hypertension, benign 12/27/2006 11/23/2008 Unspecified asthma(493.90) 12/19/2006 0 08/18/2015 Agoraphobia with panic disorder 12/19/2006 05/11/2017 documented as of this encounter (statuses as of 10/10/2023) [facility]04-01-2021 [facility] 11-03-2020 [facility]28[facility]21 [facility]-28[facility]21 [facility]-27-2021 Note [facility]03-27-2021 [facility] 10-30-2020 [facility]-26-2021 [facility]26[facility]2021 [facility]25[facility]24[facility]2021 Note [facility]03-24-2021 [facility] 10-28-2020 [facility]21 [facility]03-21-2021 [facility] 10-24-2020 [facility]2021 NoteHNO ID: [id number] Author: Interface Note Service: ? Author Type: ? Type: Progress Notes Filed: 10/24/2020 3:06 AM Note Text: Epic Scheduled Downtime: 10/24/2020 1:00:00 AM to 10/24/2020 2:48:00 [facility]03-19-2021 [facility]19-2021 Note [facility]03-19-2021 [facility] 10-22-2020 [facility]18-2021 [facility]18[facility]21 [facility]17[facility]2021 [facility]17[facility]16[facility]2021 NoteHNO ID: [id number] Author: Carlyle Dean Service: Infectious Disease Author Type: Physician Type: Plan of Care Filed: 10/20/2020 4:41 PM Note Text: Off the floor for nuclear scan when I came to see her Will follow read Wilma abx going Carlyle Dean [facility]03-16-2021 [facility]16[facility]14-2021 Note [facility]03-14-2021 [facility] 10-18-2020 [facility]13-2021 [facility]13[facility]2021 [facility]13[facility]2021 Note [facility]03-12-2021 [facility] 10-15-2020 [facility]11[facility]11[facility]21 [facility]11[facility]10[facility]21 [facility]-10[facility]09[facility]08-2021 Note [facility]03-08-2021 [facility] 09-21-2020 Evaluation note* Diagnosis Onset Date Resolution Status Complete heart block chronic Non-ischemic cardiomyopathy chronic Paroxysmal atrial fibrillation chronic Presence of cardiac pacemaker September 21, 2020 chronic Sick sinus syndrome chronic Shortness of breath acute Weight gain acute Wheezing acute History of mitral valve repl acement with bioprosthetic valve July 23, 2009 chronic Hyperlipidemia chronic Hypertension chronic Non-ischemic cardiomyopathy chronic Paroxysmal atrial fibrillation chronic Presence of cardiac pacemaker September 21, 2020 chronic Complete heart block chronic Non-ischemic cardiomyopathy chronic Presence of cardiac pacemaker September 21, 2020 chronic Sick sinus syndrome chronic Hypotension acute History of mitral valve repl acement with bioprosthetic valve July 23, 2009 chronic Hyperlipidemia chronic Non-ischemic cardiomyopathy chronic Paroxysmal atrial fibrillation chronic Presence of cardiac pacemaker September 21, 2020 [facility] Work Phone: 1(274) 358-425002-15-2021 Evaluation note* Diagnosis Onset Date Resolution Status Complete heart block chronic Non-ischemic cardiomyopathy chronic Presence of cardiac pacemaker September 21, 2020 chronic Sick sinus syndrome chronic Hypotension acute History of mitral valve repl acement with bioprosthetic valve July 23, 2009 chronic Hyperlipidemia chronic Non-ischemic cardiomyopathy chronic Paroxysmal atrial fibrillation chronic Presence of cardiac pacemaker September 21, 2020 [facility] Work Phone: 1(705) 287-572902-15-2021 Evaluation note* Diagnosis Onset Date Resolution Status Complete heart block chronic Non-ischemic cardiomyopathy chronic Presence of cardiac pacemaker September 21, 2020 chronic Sick sinus syndrome chronic Hypotension acute History of mitral valve repl acement with bioprosthetic valve July 23, 2009 chronic Hyperlipidemia chronic Non-ischemic cardiomyopathy chronic Paroxysmal atrial fibrillation chronic Presence of cardiac pacemaker September 21, 2020 chronic Encephalopathy acute Left-sided epistaxis acute Puncture wound acute Supratherapeutic INR acute UTI (urinary tract infection) acute Weakness acute Paroxysmal atrial fibrillation [facility] Work Phone: 1(772) 656-442602-15-2021 Evaluation note* Diagnosis Onset Date Resolution Status Complete heart block chronic Non-ischemic cardiomyopathy chronic Presence of cardiac pacemaker September 21, 2020 chronic Sick sinus syndrome chronic Hypotension acute History of mitral valve repl acement with bioprosthetic valve July 23, 2009 chronic Hyperlipidemia chronic Non-ischemic cardiomyopathy chronic Paroxysmal atrial fibrillation chronic Presence of cardiac pacemaker September 21, 2020 chronic Acute metabolic encephalopathy acute Encephalopathy acute Left-sided epistaxis acute Puncture wound acute Supratherapeutic INR acute UTI (urinary tract infection) acute Weakness acute Hypertension chronic Nicotine dependence chronic Paroxysmal atrial fibrillation chronic Rheumatic mitral stenosis with insufficiency chronic [facility] Work Phone: 1([phone]) 717-527202-15-2021 Evaluation note* Diagnosis Onset Date Resolution Status Complete heart block chronic Non-ischemic cardiomyopathy chronic Presence of cardiac pacemaker September 21, 2020 chronic Sick sinus syndrome chronic Hypotension acute History of mitral valve repl acement with bioprosthetic valve July 23, 2009 chronic Hyperlipidemia chronic Non-ischemic cardiomyopathy chronic Paroxysmal atrial fibrillation chronic Presence of cardiac pacemaker September 21, 2020 chronic Encephalopathy acute UTI (urinary tract infection) acute Weakness acute Hypertension chronic Nicotine dependence chronic Paroxysmal atrial fibrillation chronic Rheumatic mitral stenosis with insufficiency chronic Acute metabolic encephalopathy resolved Left-sided epistaxis resolve d Puncture wound resolved Supratherapeutic INR resolve d [facility] Work Phone: 1([phone]) 643-319102-15-2021 Evaluation note* Diagnosis Onset Date Resolution Status Complete heart block chronic Non-ischemic cardiomyopathy chronic Presence of cardiac pacemaker September 21, 2020 chronic Sick sinus syndrome chronic Hypotension acute History of mitral valve repl acement with bioprosthetic valve July 23, 2009 chronic Hyperlipidemia chronic Non-ischemic cardiomyopathy chronic Paroxysmal atrial fibrillation chronic Presence of cardiac pacemaker September 21, 2020 chronic Weakness acute Hypertension chronic Nicotine dependence chronic Paroxysmal atrial fibrillation chronic Rheumatic mitral stenosis with insufficiency chronic Acute metabolic encephalopathy resolved Encephalopathy resolved Left-sided epistaxis resolve d Puncture wound resolved Supratherapeutic INR resolve d UTI (urinary tract infection) resolved Acidosis, lactic acute Acute kidney injury acute Sepsis acute [facility] Work Phone: 1(316) 837-737302-15-2021 Evaluation note* Diagnosis Onset Date Resolution Status Complete heart block chronic Non-ischemic cardiomyopathy chronic Paroxysmal atrial fibrillation chronic Presence of cardiac pacemaker September 21, 2020 chronic Sick sinus syndrome chronic History of mitral valve repl acement with bioprosthetic valve July 23, 2009 chronic Hyperlipidemia chronic Non-ischemic cardiomyopathy chronic Paroxysmal atrial fibrillation chronic Presence of cardiac pacemaker September 21, 2020 [facility] Work Phone: 1(764) 343-439202-15-2021 Evaluation note* Diagnosis Onset Date Resolution Status Complete heart block chronic Non-ischemic cardiomyopathy chronic Paroxysmal atrial fibrillation chronic Presence of cardiac pacemaker September 21, 2020 chronic Sick sinus syndrome chronic History of mitral valve repl acement with bioprosthetic valve July 23, 2009 chronic Hyperlipidemia chronic Non-ischemic cardiomyopathy chronic Paroxysmal atrial fibrillation chronic Presence of cardiac pacemaker September 21, 2020 chronic Non-ischemic cardiomyopathy chronic Sick sinus syndrome [facility] Work Phone: 1(122) 148-327902-15-2021 Evaluation note* Diagnosis Onset Date Resolution Status Admit Date Presence of cardiac pacemaker September 21, 2020 chronic February 13, 12:57pm Sick sinus syndrome chronic February 13, 2025 12:57pm [facility] Work Phone: 1(331) 155-365712-17-2009 Evaluation note* Diagnosis Onset Date Resolution Status Shortness of breath acute Weight gain acute Wheezing acute History of mitral valve repl acement with bioprosthetic valve July 23, 2009 chronic Hyperlipidemia chronic Hypertension chronic Non-ischemic cardiomyopathy chronic Paroxysmal atrial fibrillation chronic Presence of cardiac pacemaker September 21, 2020 chronic Complete heart block chronic Non-ischemic cardiomyopathy chronic Presence of cardiac pacemaker September 21, 2020 chronic Sick sinus syndrome chronic Hypotension acute History of mitral valve repl acement with bioprosthetic valve July 23, 2009 chronic Hyperlipidemia chronic Non-ischemic cardiomyopathy chronic Paroxysmal atrial fibrillation chronic Presence of cardiac pacemaker September 21, 2020 [facility] Work Phone: 1(793) 442-150612-17-2009 Evaluation note* Diagnosis Onset Date Resolution Status Hypotension acute History of mitral valve repl acement with bioprosthetic valve July 23, 2009 chronic Hyperlipidemia chronic Non-ischemic cardiomyopathy chronic Paroxysmal atrial fibrillation chronic Presence of cardiac pacemaker September 21, 2020 chronic Weakness acute Hypertension chronic Nicotine dependence chronic Paroxysmal atrial fibrillation chronic Rheumatic mitral stenosis with insufficiency chronic Acute metabolic encephalopathy resolved Encephalopathy resolved Left-sided epistaxis resolve d Puncture wound resolved Supratherapeutic INR resolve d UTI (urinary tract infection) resolved Acidosis, lactic acute Acute kidney injury acute Anemia acute Sepsis acute [facility] Work Phone: Discharge summary Author [facility] July 25, 2023 1:40pm Note Date/Time July 25, 2023 1:36pm [facility] Medical Records Department [address] [place] [address] Discharge Summary 07/25/23 1335 MR#: [id number] Acct: [id number] Name: FROILAN GARCÍA Rep #:[id number] : 1965 [id number] From: Stephan Chery DO PCP: Dr. Louis Dobbs MD Status:A DM VARSHA Location: [place] [id number] Providers Date of Admission: 07/24/23 Primary Care Physician: Dr. Louis Dobbs MD Reason For Visit: AMBULATORY HYPOXIA Diagnosis Discharge Diagnosis (1) Dyspnea on exertion: Status: Acute Code(s): R06.09 - Other forms of dyspnea (2) Hypoxia: Status: Acute Code(s): R09.02 - Hypoxemia Plan Dyspnea and hypoxia with exertion * Oxygen saturations are stable at rest on room air with sat being between 93 and 97%. Oxygen saturations dropped to mid to upper 70s on room air with exertion * Positive influenza A. BNP is unremarkable and troponin is normal/EKG shows no change. COVID 19 negative. Check respiratory viral panel. * Scheduled and as needed nebulizers. I-S. Acapella * Oral prednisone taper * Ambulatory pulse ox today showed that patient was 90% with ambulation on room air. Therefore not require oxygen upon discharge. * Follow up with pulmonary as outpt. Erythrocytosis * Mild. Likely related with chronic undiagnsed respiratory disorder. Tobacco abuse. No additional work up at this time. 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-#27 mm bioprosthetic Medtronic Velasco mitral valve replacement--> 2008- Echocardiogram done in January and was stable when compared to previous showing an EF of 55%-Follows at [facility] for this * PAF/sick sinus syndrome/third-degree heart wjurl-Tsok-selpezv pacemaker placed in 2008-Last generator change was 09/21/2020-Continue Eliquis-Patient is not on any rate controlling medication * Schizophrenia/bipolar disease-Follows with outpatient psychiatry-Recommend o ngoing outpatient follow-up * Severe tardive dyskinesia-Follows with psychiatry-Patient's been on multiple medications to help with this and she states nothing has helped.-Indicates currently not taking anything * Chronic left-sided weakness due to previous stroke-PT/OT evaluation while hospitalized * Obesity-BMI 34.8-Recommend weight loss-Complicates treatment, prognosis, outcomes * Tobacco abuse-Smoking about 1 pack a day-Recommend cessation-Nicotine patch made available DVT prophylaxis: Not indicated as patient is on apixaban CODE STATUS -Full code Medications at Discharge Home Medications mirtazapine 30 mg tablet (Remeron) 30 mg PO QHS Check with primary doctor 03/03/21 oxcarbazepine 300 mg tablet (Trileptal) 300 mg PO BID SEIZURES 03/03/21 cholecalciferol (vitamin D3) 125 mcg (5,000 unit) capsule 125 mcg PO DAILY supplement 12/14/21 docusate sodium 100 mg capsule 100 mg PO BID CONSTPATION 12/14/21 rosuvastatin 5 mg tablet 5 mg PO QHS CHOLESTEROL 12/14/21 acetaminophen 500 mg tablet 500 mg PO Q6H PRN pain/fever 02/16/22 albuterol sulfate 90 mcg/actuation aerosol inhaler See Rx Instructions .Route .COMPLEX PRN coughing and wheezing 02/16/22 amlodipine 10 mg tablet 10 mg PO DAILY HTN 02/16/22 ondansetron 4 mg disintegrating tablet 4 mg PO Q6H PRN Nausea 02/16/22 valbenazine 80 mg capsule (Ingrezza) 80 mg PO DAILY TARDIVS DYSKINESIA 02/16/22 pantoprazole 40 mg tablet,delayed release 40 mg PO BID 8 weeks #112 tabs 02/23/22 clonazepam 0.25 mg disintegrating tablet 0.25 mg PO DAILY 10/14/22 divalproex 125 mg tablet,delayed release (Depakote) 125 mg PO BID 10/14/22 ferrous sulfate 325 mg (65 mg iron) tablet 325 mg PO BID 10/14/22 mecobalamin (vitamin B12) 500 mcg chewable tablet mcg PO DAILY 10/14/22 apixaban 5 mg tablet (Eliquis) 5 mg PO BID #60 tabs 11/14/22 prednisone 20 mg tablet 40 mg (2 x 20 mg) PO DAILY@0800 4 days #8 tabs 07/25/23 Hospital Course Operations None Procedures None Summary of Care Provided Minutes Spent on Discharge: 32 Hospital Course: Patient presents with hypoxia and shortness of breath. Patient was positive forinfluenza A. Was hypoxic when she arrived room air with ambulation. Patient was brought and started on steroids. Concerned the patient may have some underlying COPD given her extensive tobacco history but has never been formally diagnosed. But overnight patient did well with steroids and ambulated today anddropped down to 98% on room air. Patient be discharged to complete a course of prednisone. Patient advised also follow-up pulmonology to have PFTs to evaluateif she does have underlying COPD or asthma. Weight / BMI Weight Weight: 82.1 kg Body Mass Index (BMI) 33.0 ABG / Lab / Microbiology Data 07/25/23 06:07 07/25/23 06:07 Laboratory: Laboratory Results - last 24 hr 07/24/23 12:45: B-Natriuretic Peptide 34.1 07/25/23 06:07: WBC 7.8, RBC 4.69, Hgb 14.7, Hct 44.8, MCV 95.5, MCH 31.3, MCHC 32.8, RDW Std Deviation 45.8 H, RDW Coeff of Jonathon 13.0, Plt Count 174, MPV 10.1, Immature Gran % (Auto) 0.400, Neut % (Auto) 78.2 H, Lymph % (Auto) 15.6 L, [place] % (Auto) 5.3, Eos % (Auto) 0.0, Baso % (Auto) 0.5, Absolute Neuts (auto) 6.1, Absolute Lymphs (auto) 1.21, Nucleated RBC % 0, Sodium 140, Potassium 4.6, Chloride 108 H, Carbon Dioxide 24.0, Anion Gap 8, BUN 16, Creatinine 0.89, EstimCreat Clear Calc 56.49, Est GFR (MDRD) Af Amer 85, Est GFR (MDRD) Non-Af 70, BUN/Creatinine Ratio 18.0, Glucose 116 H, Calcium 9.2, TSH 0.51 Microbiology: Microbiology 07/24/23 14:14 Nasal Secretion SARS-CoV-2 & FLU Antigen (Rapid) - Final Influenzae A D/C Instructions Discharge Diet: Low fat / Low cholesterol Call your doctor if you observe: Shortness of breath Meaningful Use Info Meaningful Use Diagnoses (Choose all that apply): None applicable Discharge Plan Admission Admit Date/Time: 07/24/23 14:42 Primary Reason for Your Visit: Influenza. Hypoxia. Attending Provider: Stephan Chery Primary Care Provider: Louis Dobbs Consulting Providers: Merna Scherer Instructions Patient Instructions: ED Dyspnea Additional Instructions / Restrictions: You became hypoxic, low oxygen, after ursula influenza. You responded well. We do have you on steroids which will continue for the next several days. Is concerned that he may have underlying lung disease such as emphysema or asthma. I do recommend that he follow-up with pulmonology in the next month or so to be evaluated to see if you have underlying lung disease. Discharge Orders/Prescriptions Prescriptions: New prednisone 20 mg Tablet 40 mg PO DAILY@0800 4 Days Qty: 8 0RF Continued ferrous sulfate 325 mg (65 mg iron) tablet 325 mg PO BID divalproex [Depakote] 125 mg tablet,delayed release (DR/EC) 125 mg PO BID clonazepam 0.25 mg tablet,disintegrating 0.25 mg PO DAILY mecobalamin (vitamin B12) 500 mcg tablet,chewable PO DAILY docusate sodium 100 mg Capsule 100 mg PO BID cholecalciferol (vitamin D3) 125 mcg (5,000 unit) Capsule 125 mcg PO DAILY rosuvastatin 5 mg tablet 5 mg PO QHS acetaminophen 500 mg Tablet 500 mg PO Q6H PRN (Reason: pain/fever) ondansetron 4 mg Tablet,Disintegrating 4 mg PO Q6H PRN (Reason: Nausea) amlodipine 10 mg Tablet 10 mg PO DAILY Ingrezza 80 mg Capsule 80 mg PO DAILY albuterol sulfate 90 mcg/actuation Hfa Aerosol Inhaler See Rx Instructions .ROUTE .COMPLEX PRN (Reason: coughing and wheezing) Rx Instructions: 2 puffs pantoprazole 40 mg tablet,delayed release (DR/EC) 40 mg PO BID 56 Days Qty: 112 0RF oxcarbazepine [Trileptal] 300 mg tablet 300 mg PO BID mirtazapine [Remeron] 30 mg tablet 30 mg PO QHS Eliquis 5 mg tablet 5 mg PO BID Qty: 60 11RF Referrals / Follow Up: [facility] [place] [Provider Group] - Within 1 Month Louis Dobbs MD [Primary Care Provider] - Within 2 Weeks Disposition Disposition (needs filled in before D/C Order can be placed): Home, Self Care Charges/Coding Visit Charges Inpatient E&M: 98997 Disch Hosp >30min 07/25/23 1340 <Electronically signed by Stephan Chery DO> Cosigner Signature (if applicable): CC: Dr. Stephan Chery DO; Dr. Louis Dobbs MD~ Signed [facility] Work Phone: evaluation note* Diagnosis Hypertensive kidney disease with stage 3 chronic kidney disease (HCC) documented in this encounter [facility] note* Diagnosis Asthma with COPD with exacerbation (HCC) Chronic obstructive asthma with exacerbation 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ident (CVA) documented in this encounter [facility] note* Diagnosis Urge incontinence- Primary documented in this encounter [facility] note* Diagnosis Encounter for screening mammogram for breast cancer documented in this encounter [facility] note* Diagnosis Onset Date Resolution Status Acidosis, lactic resolved Acute kidney injury resolved Sepsis resolved Abnormality of gait and mobility chronic Anxiety chronic Dementia chronic Depression chronic History of stroke chronic Tardive dyskinesia chronic Complete heart block chronic Paroxysmal atrial fibrillation chronic Presence of cardiac pacemaker September 21, 2020 chronic [facility] Work Phone: evaluation note* Diagnosis Encounter for gynecological examination with abnormal finding- Primary Routine gynecological examination Mastalgia Mastodynia Encounter for screening for human papillomavirus (HPV) Special screening examination for human papillomavirus (HPV) Pap smear for cervical cancer screening Screening for malignant neoplasm of the cervix Encounter for screening mammogram for breast cancer Family history of breast cancer in first degree relative Family history of malignant neoplasm of breast Family history of breast cancer in male Family history of other specified malignant neoplasm Mixed incontinence Mixed incontinence urge and stress (male)(female) documented in this encounter [facility] note* Diagnosis Hyperlipidemia, unspecified hyperlipidemia type documented in this encounter [facility] noteNo assessment information availableW[facility] Work Phone: Evaluation note* Diagnosis Hyperlipidemia, unspecified hyperlipidemia type Primary hypertension Unspecified essential hypertension Gastroesophageal reflux disease without esophagitis Esophageal reflux documented in this encounter [facility] note* Diagnosis Gastroesophageal reflux disease without esophagitis Esophageal reflux Primary hypertension Unspecified essential hypertension Hyperlipidemia, unspecified hyperlipidemia type [facility]* Diagnosis Asthma with COPD with exacerbation (HCC) Chronic obstructive asthma with exacerbation documented in this encounter [facility] note* Diagnosis Mastalgia Mastodynia Family history of breast cancer in first degree relative Family history of malignant neoplasm of breast Family history of breast cancer in male Family history of other specified malignant neoplasm documented in this encounter [facility] note* Diagnosis Onset Date Resolution Status Dyspnea on exertion acute Hypoxia acute Tobacco use acute [facility] Work Phone: Evaluation note* Diagnosis Gastroesophageal reflux disease without esophagitis Esophageal reflux Primary hypertension Unspecified essential hypertension Hyperlipidemia, unspecified hyperlipidemia type documented in this encounter [facility] note* Diagnosis Encounter for screening mammogram for breast cancer documented in this encounter [facility] note* Diagnosis Aneurysm of anterior communicating artery- Primary Cerebral aneurysm, nonruptured Malnutrition of mild degree (HCC) Malnutrition of mild degree 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 Brain aneurysm Cerebral aneurysm, nonruptured Tobacco use disorder Depressive disorder Depressive disorder, not elsewhere classified Heart valve replaced Heart valve replaced by other means 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ident (CVA) CKD (chronic kidney disease) stage 3, GFR 30-59 ml/min (HCC) Chronic kidney disease, Stage III (moderate) Obesity, Class I, BMI 30-34.9 Obesity, unspecified Hemiparesis due to old cerebrovascular accident (HCC) Hemiplegia affecting unspecified side, late effect of cerebrovascular disease Hyperlipidemia, unspecified hyperlipidemia type Primary hypertension Unspecified essential hypertension Gastroesophageal reflux disease without esophagitis Esophageal reflux [facility]* Diagnosis Aneurysm of anterior communicating artery- Primary Cerebral aneurysm, nonruptured Malnutrition of mild degree (HCC) Malnutrition of mild degree retirement (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 antibiotics Brain aneurysm Cerebral aneurysm, nonruptured Depressive disorder Depressive disorder, not elsewhere classified Heart valve replaced Heart valve replaced by other means 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ident (CVA) CKD (chronic kidney disease) stage 3, GFR 30-59 ml/min (HCC) Chronic kidney disease, Stage III (moderate) Obesity, Class I, BMI 30-34.9 Obesity, unspecified Hemiparesis due to old cerebrovascular accident (HCC) Hemiplegia affecting unspecified side, late effect of cerebrovascular disease Medicare annual wellness visit, subsequent- Primary Routine general medical examination at a health care facility Shortness of breath Asthma with chronic obstructive pulmonary disease (COPD) (HCC) Chronic obstructive asthma, unspecified Hypertensive kidney disease with stage 3a chronic kidney disease (HCC) Paroxysmal atrial fibrillation (HCC) Atrial fibrillation Hemiparesis due to old cerebrovascular accident (HCC) Hemiplegia affecting unspecified side, late effect of cerebrovascular disease Dementia, unspecified dementia severity, unspecified dementia type, unspecified whether behavioral, psychotic, or mood disturbance or anxiety (HCC) Anemia, unspecified type Encounter for immunization Need for other specified prophylactic vaccination against single bacterial disease Gastroesophageal reflux disease without esophagitis Esophageal reflux Depressive disorder Depressive disorder, not elsewhere classified Anxiety Anxiety state, unspecified Hyperlipidemia, unspecified hyperlipidemia type [facility] Diagnosis Chest pain, unspecified type Other forms of dyspnea Paroxysmal atrial fibrillation Atrial fibrillation Personal history of transient ischemic attack (TIA), and cerebral infarction without residual deficits Other cardiomyopathies retirement (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 anticoagulants Long-term (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 anticoagulants Nicotine dependence, cigarettes, uncomplicated Rheumatic mitral stenosis with insufficiency Mitral stenosis with insufficiency Essential (primary) hypertension Unspecified essential hypertension Hyperlipidemia, unspecified hyperlipidemia type Presence of xenogenic heart valve Heart valve replaced by transplant Presence of cardiac pacemaker Cardiac pacemaker in situ [facility] Diagnosis Aneurysm of anterior communicating artery- Primary Cerebral aneurysm, nonruptured Malnutrition of mild degree (HCC) Malnutrition of mild degree 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 Brain aneurysm Cerebral aneurysm, nonruptured Depressive disorder Depressive disorder, not elsewhere classified Heart valve replaced Heart valve replaced by other means 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ident (CVA) CKD (chronic kidney disease) stage 3, GFR 30-59 ml/min (HCC) Chronic kidney disease, Stage III (moderate) Obesity, Class I, BMI 30-34.9 Obesity, unspecified Hemiparesis due to old cerebrovascular accident (HCC) Hemiplegia affecting unspecified side, late effect of cerebrovascular disease Primary hypertension Unspecified essential hypertension Gastroesophageal reflux disease without esophagitis Esophageal reflux Hyperlipidemia, unspecified hyperlipidemia type [facility]* Diagnosis Aneurysm of anterior communicating artery (HCC)- Primary Cerebral aneurysm, nonruptured Malnutrition of mild degree (HCC) Malnutrition of mild degree 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 Brain aneurysm (HCC) Cerebral aneurysm, nonruptured Depressive disorder Depressive disorder, not elsewhere classified Heart valve replaced Heart valve replaced by other means 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ident (CVA) CKD (chronic kidney disease) stage 3, GFR 30-59 ml/min (HCC) Chronic kidney disease, Stage III (moderate) Obesity, Class I, BMI 30-34.9 Obesity, unspecified Hemiparesis due to old cerebrovascular accident (HCC) Hemiplegia affecting unspecified side, late effect of cerebrovascular disease Bilateral lower extremity pain- Primary Pain in limb Pedal edema Edema Bilateral lower extremity pain Pain in limb Pedal edema Edema [facility]* Diagnosis Aneurysm of anterior communicating artery (HCC)- Primary Cerebral aneurysm, nonruptured Malnutrition of mild degree (HCC) Malnutrition of mild degree retirement (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 antibiotics Brain aneurysm (HCC) Cerebral aneurysm, nonruptured Depressive disorder Depressive disorder, not elsewhere classified Heart valve replaced Heart valve replaced by other means 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ident (CVA) CKD (chronic kidney disease) stage 3, GFR 30-59 ml/min (HCC) Chronic kidney disease, Stage III (moderate) Obesity, Class I, BMI 30-34.9 Obesity, unspecified Hemiparesis due to old cerebrovascular accident (HCC) Hemiplegia affecting unspecified side, late effect of cerebrovascular disease Bilateral lower extremity pain Pain in limb Pedal edema Edema documented in this encounter [facility] note* Diagnosis Aneurysm of anterior communicating artery (HCC)- Primary Cerebral aneurysm, nonruptured Malnutrition of mild degree (HCC) Malnutrition of mild degree retirement (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 antibiotics Brain aneurysm (HCC) Cerebral aneurysm, nonruptured Depressive disorder Depressive disorder, not elsewhere classified Heart valve replaced Heart valve replaced by other means 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ident (CVA) CKD (chronic kidney disease) stage 3, GFR 30-59 ml/min (HCC) Chronic kidney disease, Stage III (moderate) Obesity, Class I, BMI 30-34.9 Obesity, unspecified Hemiparesis due to old cerebrovascular accident (HCC) Hemiplegia affecting unspecified side, late effect of cerebrovascular disease Bilateral lower extremity pain- Primary Pain in limb Pedal edema Edema [facility]* Diagnosis Aneurysm of anterior communicating artery (HCC)- Primary Cerebral aneurysm, nonruptured Malnutrition of mild degree (HCC) Malnutrition of mild degree retirement (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 antibiotics Brain aneurysm (HCC) Cerebral aneurysm, nonruptured Depressive disorder Depressive disorder, not elsewhere classified Heart valve replaced Heart valve replaced by other means 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ident (CVA) CKD (chronic kidney disease) stage 3, GFR 30-59 ml/min (HCC) Chronic kidney disease, Stage III (moderate) Obesity, Class I, BMI 30-34.9 Obesity, unspecified Hemiparesis due to old cerebrovascular accident (HCC) Hemiplegia affecting unspecified side, late effect of cerebrovascular disease Encounter for screening mammogram for breast cancer documented in this encounter [facility] note* Diagnosis Aneurysm of anterior communicating artery (HCC)- Primary Cerebral aneurysm, nonruptured Malnutrition of mild degree (HCC) Malnutrition of mild degree retirement (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 antibiotics Brain aneurysm (HCC) Cerebral aneurysm, nonruptured Depressive disorder Depressive disorder, not elsewhere classified Heart valve replaced Heart valve replaced by other means 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ident (CVA) CKD (chronic kidney disease) stage 3, GFR 30-59 ml/min (HCC) Chronic kidney disease, Stage III (moderate) Obesity, Class I, BMI 30-34.9 Obesity, unspecified Hemiparesis due to old cerebrovascular accident (HCC) Hemiplegia affecting unspecified side, late effect of cerebrovascular disease Abnormality of gait as late effect of stroke- Primary Hemiparesis due to old cerebrovascular accident (HCC) Hemiplegia affecting unspecified side, late effect of cerebrovascular disease Brain aneurysm (HCC) Cerebral aneurysm, nonruptured Urge incontinence Impaired mobility and ADLs Other ill-defined conditions Frequent falls Personal history of fall Neuropathy Mononeuritis of unspecified site documented in this encounter [facility] note* Diagnosis Aneurysm of anterior communicating artery (HCC)- Primary Cerebral aneurysm, nonruptured Malnutrition of mild degree (HCC) Malnutrition of mild degree 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 Brain aneurysm (HCC) Cerebral aneurysm, nonruptured Depressive disorder Depressive disorder, not elsewhere classified Heart valve replaced Heart valve replaced by other means 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ident (CVA) CKD (chronic kidney disease) stage 3, GFR 30-59 ml/min (HCC) Chronic kidney disease, Stage III (moderate) Obesity, Class I, BMI 30-34.9 Obesity, unspecified Hemiparesis due to old cerebrovascular accident (HCC) Hemiplegia affecting unspecified side, late effect of cerebrovascular disease Abnormality of gait as late effect of stroke- Primary Hemiparesis due to old cerebrovascular accident (HCC) Hemiplegia affecting unspecified side, late effect of cerebrovascular disease Brain aneurysm (HCC) Cerebral aneurysm, nonruptured Impaired mobility and ADLs Other ill-defined conditions Frequent falls Personal history of fall Encounter for risk and functional assessment Screening for unspecified condition documented in this encounter [facility] note* Diagnosis Aneurysm of anterior communicating artery (HCC)- Primary Cerebral aneurysm, nonruptured Malnutrition of mild degree (HCC) Malnutrition of mild degree retirement (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 antibiotics Brain aneurysm (HCC) Cerebral aneurysm, nonruptured Depressive disorder Depressive disorder, not elsewhere classified Heart valve replaced Heart valve replaced by other means 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ident (CVA) CKD (chronic kidney disease) stage 3, GFR 30-59 ml/min ([facility]) Chronic kidney disease, Stage III (moderate) Obesity, Class I, BMI 30-34.9 Obesity, unspecified Hemiparesis due to old cerebrovascular accident (HCC) Hemiplegia affecting unspecified side, late effect of cerebrovascular disease Primary hypertension- Primary Unspecified essential hypertension Gastroesophageal reflux disease without esophagitis Esophageal reflux Hyperlipidemia, unspecified hyperlipidemia type Hemiparesis due to old cerebrovascular accident (HCC) Hemiplegia affecting unspecified side, late effect of cerebrovascular disease Unsteady gait Abnormality of gait Dementia with anxiety, unspecified dementia severity, unspecified dementia type (HCC) Asthma with chronic obstructive pulmonary disease (COPD) (HCC) Chronic obstructive asthma, unspecified Paroxysmal atrial fibrillation (HCC) Atrial fibrillation Hypertensive kidney disease with stage 3a chronic kidney disease ([facility]) Encounter for screening mammogram for malignant neoplasm of breast Other screening mammogram History of anemia Personal history of diseases of blood and blood-forming organs Candidal intertrigo Candidiasis of skin and nails Bilateral lower extremity pain Pain in limb 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ident (CVA) Brain aneurysm (HCC) Cerebral aneurysm, nonruptured [facility]* Diagnosis Aneurysm of anterior communicating artery (HCC)- Primary Cerebral aneurysm, nonruptured Malnutrition of mild degree (HCC) Malnutrition of mild degree retirement (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 antibiotics Brain aneurysm (HCC) Cerebral aneurysm, nonruptured Depressive disorder Depressive disorder, not elsewhere classified Heart valve replaced Heart valve replaced by other means 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ident (CVA) CKD (chronic kidney disease) stage 3, GFR 30-59 ml/min ([facility]) Chronic kidney disease, Stage III (moderate) Obesity, Class I, BMI 30-34.9 Obesity, unspecified Hemiparesis due to old cerebrovascular accident (HCC) Hemiplegia affecting unspecified side, late effect of cerebrovascular disease Encounter for screening mammogram for malignant neoplasm of breast Other screening mammogram documented [facility] Author Merna Scherer [facility] July 24, 2023 2:42pm Note Date/Time July 24, 2023 1:55pm [facility] Medical Records Department [address] [place] [address] H&P Exam - Hospitalist 07/24/23 1353 MR#: [id number] Acct: [id number] Name: FROILAN GARCÍA Rep #:[id number] : 1965 57 From: Merna Scherer DO PCP: Dr. Louis Dobbs MD Status:A DM [facility] Location: [place] [id number] HPI - General General Date of Admission: 07/24/23 Date of Service: 07/24/23 Chief Complaint: Dyspnea with exertion HPI Narrative FROILAN GARCÍA, is a 57 F who presented to the emergency department at [facility] on 07/24/2023 with dyspnea on exertion. It apparently has been problematic for couple months but has been worsening as of recently so she came to the emergency department for reevaluation. She does not follow with pulmonary medicine but does follow with cardiology it appears her last appointment there was in October. She had an echocardiogram done 01/10/2023 but showed an EF of 50% with a stable appearing bioprosthetic mitral valve and a mean gradient across her valve with 6.5 mmHg which was stable compared to previous study. She is still smoking a pack of cigarettes a day and does not follow with pulmonary medicine. She states she gets chills every evening but denies any cough, fever, rhinorrhea, nasal congestion, headache, myalgias or dyspnea at rest. She has severe tardive dyskinesia which makes it difficult to obtain a history due to her speech problems related to her tardive dyskinesia. She has had no sick contacts and lives at home with her 14-year-old son. Vital signs on presentation were overall unremarkable other than blood pressure elevation. Her temperature was 98.3, heart rate was 96, blood pressure was 162/113, respiratory rate was anywhere from 16-26 and oxygen saturations were 96% on room air. Her CBC shows normal white count with no left shift and erythrocytosis with a hemoglobin of 15.3. I suspect this is related to chronic hypoxia. Her chemistry panel was unremarkable. Her troponin was 5. Her BNP was 34.1. EKG is a atrial sensed and V paced rhythm without any ST-T wave changes. Her chest x-ray was unremarkable. On exam she had some scattered wheezing most prominent at bilateral bases. The original plan was to discharge the patient and an ambulatory pulse ox was obtained. During ambulation she dropped to 78% on room air therefore admission was required. I am not totally convinced that she is not chronically hypoxic with exertion and this has been worsening over time making her more symptomatic. My plan is to admit her as an observation and treat her for COPD exacerbation and obtain home oxygen for her discharge that she can utilize with exertion and obtain follow-up with pulmonary medicine after discharge. She does need to havePFTs done. We discussed extensively her tobacco abuse and need for cessation. [facility] Medical History (Updated 07/24/23 @ 14:[address] 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 retirement current use of anticoagulant Mitral regurgitation Non-ischemic cardiomyopathy Schizophrenia Sick sinus syndrome Stroke/cerebrovascular accident Tardive dyskinesia Unsteady gait Home Medications mirtazapine 30 mg tablet (Remeron) 30 mg PO QHS Check with primary doctor 03/03/21 [History Last Taken 02/15/22] oxcarbazepine 300 mg tablet (Trileptal) 300 mg PO BID SEIZURES 03/03/21 [History Last Taken 02/16/22] cholecalciferol (vitamin D3) 125 mcg (5,000 unit) capsule 125 mcg PO DAILY supplement 12/14/21 [History Last Taken 02/16/22] docusate sodium 100 mg capsule 100 mg PO BID CONSTPATION 12/14/21 [History Last Taken 02/16/22] rosuvastatin 5 mg tablet 5 mg PO QHS CHOLESTEROL 12/14/21 [History Last Taken 02/10/22] acetaminophen 500 mg tablet 500 mg PO Q6H PRN pain/fever 02/16/22 [History Last Taken Unknown] albuterol sulfate 90 mcg/actuation aerosol inhaler See Rx Instructions .Route .COMPLEX PRN coughing and wheezing 02/16/22 [History Last Taken Unknown] amlodipine 10 mg tablet 10 mg PO DAILY HTN 02/16/22 [History Last Taken 02/16/22] ondansetron 4 mg disintegrating tablet 4 mg PO Q6H PRN Nausea 02/16/22 [History Last Taken 02/16/22] valbenazine 80 mg capsule (Ingrezza) 80 mg PO DAILY TARDIVS DYSKINESIA 02/16/22 [History Last Taken 02/16/22] pantoprazole 40 mg tablet,delayed release 40 mg PO BID 8 weeks #112 tabs 02/23/22 [Rx Last Taken Unknown] clonazepam 0.25 mg disintegrating tablet 0.25 mg PO DAILY 10/14/22 [History Last Taken Unknown] divalproex 125 mg tablet,delayed release (Depakote) 125 mg PO BID 10/14/22 [History Last Taken Unknown] ferrous sulfate 325 mg (65 mg iron) tablet 325 mg PO BID 10/14/22 [History Last Taken Unknown] mecobalamin (vitamin B12) 500 mcg chewable tablet mcg PO DAILY 10/14/22 [History Last Taken Unknown] apixaban 5 mg tablet (Eliquis) 5 mg PO BID #60 tabs 11/14/22 [Rx Last Taken Unknown] Allergy/AdvReac Type Severity Reaction Status Date / Time amoxicillin [Amoxicillin] Allergy Hives Verified 07/24/23 12:22 latex Allergy Rash Verified 07/24/23 12:22 lisinopril Allergy Unknown Verified 07/24/23 12:22 Penicillins Allergy Hives Verified 07/24/23 12:22 venom-honey bee Allergy Swelling Verified 07/24/23 12:22 [bee venom (honey bee)] ciprofloxacin [From Cipro] AdvReac Nausea/Vom/ Verified 07/24/23 12:22 Diarrhea Surgical History History of History of mitral valve replacement with bioprosthetic valve (07/23/09) History of partial colectomy Presence of cardiac pacemaker (09/21/20) Social History household members: children housing: apartment current occupational status: unemployed Smoking Status: Current every day smoker tobacco type: cigarettes second hand exposure: Yes alcohol intake: current alcohol intake frequency: holidays/special occasions only details: RARELY substance use type: does not use caffeine: Yes Type: carbonated beverages Number of servings: 1 what type of physical activity do you participate in: none seatbelt use: always ROS Constitutional Constitutional: Reports chills; Denies anorexia, change in weight, fatigue, fever(s), malaise, night sweats, weakness or other Eyes Eyes: Denies blurry vision, change in eye color, change in vision, discharge from eye(s), double vision, erythema, eye pain, loss of vision or other ENT HEENT: Denies abnormal hearing, dysphagia, ear pain, epistaxis, headache(s), hearing loss, nasal congestion, nasal discharge, post nasal drip, sinus pressure, sore throat or other Cardiovascular Cardiovascular: Denies chest pain, claudication, dyspnea on exertion, edema, lightheadedness, orthopnea, palpitations, paroxysmal nocturnal dyspnea, rapid heart rate, syncope or other Respiratory/Chest Respiratory/Chest: Reports shortness of breath with exertion; Denies cough, dyspnea, excessive phlegm production, hemoptysis, productive cough, shortness ofbreath at rest, wheezing or other Gastrointestinal Gastrointestinal: Denies abdominal pain, coffee ground emesis, constipation, diarrhea, dyspepsia, hematemesis, hematochezia, loose stools, melena, nausea, vomiting or other Genitourinary Genitourinary: Denies burning urination, difficulty urinating, dysuria, hematuria, nocturia, urinary frequency, urinary hesitancy, urinary incontinence,urinary urgency or other Musculoskeletal Musculoskeletal: Denies arthralgias, back pain, joint pain, joint stiffness, joint swelling, myalgias, neck pain or other Neurologic Neurologic: Reports other Details: Chronic tardive dyskinesia ; Denies abnormal gait, abnormal speech, confusion, disequilibrium, dizziness, focal weakness, headache(s), numbness, paresthesias, seizure-like activity, seizures, syncope, tingling or tremor(s) Psychiatric Psychiatric: Reports other Details: Schizophrenia ; Denies anxiety, depression, homicidal ideation or suicidal ideation Endocrine Endocrinology: Denies change in body appearance, cold intolerance, excessive sweating, heat intolerance, polydipsia, polyuria or other Hematologic/Lymphatic Hematologic/Lymphatic: Denies anemia, easy bleeding, easy bruising, lymphadenopathy or other Allergic/Immunologic Allergic/Immunologic: Denies rhinitis, hives, eczemia, asthma or other Vital Signs Vital Signs Vital Signs: 07/24/23 12:12 07/24/23 12:24 07/24/23 12:49 Temperature 98.3 F Temperature Source Oral Pulse Rate 96 Respiratory Rate 26 H Respiratory Effort Short of Breath Respiratory Pattern Tachypnea Blood Pressure 162/113 H Blood Pressure Mean 129 Pulse Ox 96 96 Oxygen Delivery Method Room Air Room Air Room Air Weight Weight: 86.3 kg Body Mass Index (BMI) 34.7 Physical Exam Const alert, oriented x3, no apparent distress and well nourished; Negative for average body habitus or healthy appearing Constitutional Narrative: Middle-aged, white female, sitting up in bed, severe tardive dyskinesia however appears comfortable, nursing at bedside, on room air with no conversational dyspnea and sats are 96% on room air with conversation, patient appears much older than stated age General Appearance: cooperative HEENT normocephalic, head/scalp atraumatic, hearing grossly normal bilaterally and moist oral mucous membranes HEENT Narrative: Edentulous, Mallampati 2, no thrush Eyes PERRL, EOMs intact bilaterally and conjunctivae normal Eyes Narrative: No scleral icterus Neck no lymphadenopathy and supple Neck Narrative: Trachea midline, no thyroid enlargement Resp no retractions and no use of accessory muscles Resp Narrative: Diffusely diminished with few scattered end expiratory wheezes at bilateral bases, oxygen saturations at rest are stable on room air Cardio regular rate, regular rhythm, S1 normal heart sound, S2 normal heart sound, no murmurs, no rub, no gallops and no clicks Cardio Narrative: Heart rhythm is paced GI normal to inspection, nondistended, normoactive bowel sounds, soft to palpation and non-tender Extremity normal to inspection and full ROM Extremity Narrative: Pedal pulses are 2+, patient has clubbing of her nailbeds on her hands, no cyanosis or edema Skin no rashes or lesions noted, no wounds, skin turgor normal, no jaundice and no petechiae Neuro oriented x3, CN's II-XII intact bilaterally, moves all extremities and no focal motor deficits Neuro Narrative: Severe tardive dyskinesia, speech is pressured at times and difficult to understand due to her tardive dyskinesia Speech: Negative for speech normal Psych Psych Narrative: Affect is normal and patient interacts appropriately with good eye contact, moodseems stable Results Lab / Micro Data 07/24/23 12:45 07/24/23 12:45 Labs: Laboratory Results - last 24 hr 07/24/23 12:45: WBC 8.2, RBC 4.74, Hgb 15.3 H, Hct 47.3 H, MCV 99.8 H, MCH 32.3 H, MCHC 32.3, RDW Std Deviation 48.0 H, RDW Coeff of Jonathon 13.0, Plt Count 173, MPV 9.5, Immature Gran % (Auto) 0.200, Neut % (Auto) 67.7, Lymph % (Auto) 19.9, [place] % (Auto) 7.9, Eos % (Auto) 3.3, Baso % (Auto) 1.0, Absolute Neuts (auto) 5.6, Absolute Lymphs (auto) 1.63, Nucleated RBC % 0, Sodium 141, Potassium 4.4, Chloride 110 H, Carbon Dioxide 26.0, Anion Gap 5, BUN 11, Creatinine 0.94, EstimCreat Clear Calc 53.48, Est GFR (MDRD) Af Amer 79, Est GFR (MDRD) Non-Af 65, BUN/Creatinine Ratio 11.7, Glucose 91, Calcium 9.3, Troponin I High Sens 5 Imagaing Radiology Impression Chest X-Ray 07/24/23 12:58 IMPRESSION: Hyperinflation. No acute abnormality is seen. Electronically Signed: Miguel Lau MD at 13:12 EST , Assessment & Plan Assessment/Plan (1) Dyspnea on exertion: (2) Hypoxia: PLAN: Plan Dyspnea and hypoxia with exertion -Oxygen saturations are stable at rest on room air with sat being between 93 and97% -Oxygen saturations dropped to mid to upper 70s on room air with exertion -I am not clear if this is her chronic state or if she has a mild COPD exacerbation causing exertional hypoxia and dyspnea -BNP is unremarkable and troponin is normal/EKG shows no change -Patient with stable recent echocardiogram -Check COVID and flu -Check respiratory viral panel Scheduled and as needed nebulizers -I-S -Acapella -Oral prednisone taper -Will check ambulatory pulse ox in the a.m. and arrange for home oxygen at discharge if still required as I highly suspect she has been having ongoing exertional hypoxia -Extensive conversation with the patient with regards to her ongoing tobacco abuse and strongly recommend cessation -Recommend outpatient pulmonary medicine follow-up after discharge -Would set up appointment prior to discharge as patient needs transportation that way we can help with van transportation for this appointment -Needs outpatient 6-minute walk test and PFTs -High suspicion that patient has COPD at baseline but is undiagnosed Erythrocytosis -Suspect related to ongoing hypoxia with exertion -We will trend -Recommend oxygen supplementation CAD/HTN/HPL -Continue statin -Continue amlodipine -Continue ongoing cardiology follow-up as scheduled History of erosive esophagitis/gastritis/duodenal ulcer disease -Continue home PPI 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 -#27 mm bioprosthetic [employer] Velasco mitral valve replacement--> 2008 -Echocardiogram done in January and was stable when compared to previous showing anEF of 55% -Follows at [facility] Main campus for this PAF/sick sinus syndrome/third-degree heart block -Dual-chamber pacemaker placed in 2008 -Last generator change was 09/21/2020 -Continue Eliquis -Patient is not on any rate controlling medication Schizophrenia/bipolar disease -Follows with outpatient psychiatry -Recommend ongoing outpatient follow-up Severe tardive dyskinesia -Follows with psychiatry -Patient's been on multiple medications to help with this and she states nothinghas helped. -Indicates currently not taking anything Chronic left-sided weakness due to previous stroke -PT/OT evaluation while hospitalized Obesity -BMI 34.8 -Recommend weight loss -Complicates treatment, prognosis, outcomes Tobacco abuse -Smoking about 1 pack a day -Recommend cessation -Nicotine patch made available DVT prophylaxis -Continue full dose Eliquis CODE STATUS -Full code Charges/Coding Visit Charges Inpatient E&M: 70553 Init Hosp L2 07/24/23 1442 <Electronically signed by Merna Scherer DO> Cosigner Signature (if applicable): CC: Dr. Merna Scherer DO; Dr. Louis Dobbs MD~ Signed [facility] Work Phone: Hospital Discharge instructions Additional Instructions Please follow-up with your psychiatrist.[facility] Work Phone: Hospital Discharge instructions Additional Instructions Thankfully your CT of the brain and cervical spine did not show any acute traumatic injury or bleeding associate with your fall today. The cause of your fall and your worsening balance is not highly clear. We did offer further workup including EKG, chest x-ray lab work and urinalysis today but at this time you decided that you would rather follow-up with your family doctor. If it anytime you feel acute worsening or would like further workup please return to the emergency room.[facility] Work Phone: Reason for referral (narrative)* Diagnostic Procedure Only (Routine) - Pending Review Specialty Diagnoses / Procedures Referred By Rita mehta Referred To Contact [facility] Diagnoses Encounter for screening mammogram for breast cancer Procedures KATHERINE SCREENING SCREENING MAMMOGRAPHY BI 2-VIEW BREAST INC CAD Louis Dobbs MD [address] [place] [address] [facility] [address] [place] [address] Referral ID Status Reason Start Date Expiration Date Visits Requested Visits Authorized [id number] Pending Review Auto-Generat ed Referral 02/02/2022 03/04/2023 1 1 [facility] for referral (narrative)* Diagnostic Procedure Only (Routine) - Authorized Specialty Diagnoses / Procedures Referred By Rita mehta Referred To Contact [facility] Diagnoses Mastalgia Family history of breast cancer in first degree relative Family history of breast cancer in male Procedures KATHERINE DIAGNOSTIC BILATERAL DIAGNOSTIC MAMMOGRAPHY COMPUTER-AIDED DETCJ BI Silvia Yates APRN.CONTRACT GRAPHIC DESIGNER [address] [place] [address] [facility] [address] [place] [address] Referral ID Status Reason Start Date Expiration Date Visits Requested Visits Authorized [id number] Authorized Auto-Generat ed Referral 12/08/2022 01/07/2024 1 1 * Diagnostic Procedure Only (Routine) - Authorized Specialty Diagnoses / Procedures Referred By Rita t Referred To Contact [facility] Diagnoses Family history of breast cancer in first degree relative Family history of breast cancer in male Procedures US BREAST LTD RIGHT US BREAST UNI REAL TIME WITH IMAGE LIMITED Silvia Yates APRN.CNP [address] [place] [address] [facility] [address] [place] [address] Referral ID Status Reason Start Date Expiration Date Visits Requested Visits Authorized [id number] Authorized Auto-Generat ed Referral 12/08/2022 01/07/2024 1 1 * Diagnostic Procedure Only (Routine) - Authorized Specialty Diagnoses / Procedures Referred By Rita t Referred To Contact [facility] Diagnoses Mastalgia Procedures US BREAST LTD RIGHT US BREAST UNI REAL TIME WITH IMAGE LIMITED Silvia Yates APRN.CONTRACT GRAPHIC DESIGNER [address] [place] [address] [facility] [address] [place] [address] Referral ID Status Reason Start Date Expiration Date Visits Requested Visits Authorized [id number] Authorized Auto-Generat ed Referral 12/08/2022 01/07/2024 1 1 [facility] for referral (narrative)* Diagnostic Procedure Only (Routine) - Closed Specialty Diagnoses / Procedures Referred By Rita t Referred To Contact [facility] Diagnoses Mastalgia Procedures US BREAST LTD RIGHT US BREAST UNI REAL TIME WITH IMAGE LIMITED Silvia Yates APRN.CONTRACT GRAPHIC DESIGNER [address] [place] [address] [facility] [address] [place] [address] Referral ID Status Reason Start Date Expiration Date V isits Requested Visits Authorized [id number] Closed Auto-Generate d Referral 12/08/2022 01/07/2024 1 1 [facility] for referral (narrative)* Diagnostic Procedure Only (Routine) - Pending Review Specialty Diagnoses / Procedures Referred By Rita mehta Referred To Contact [facility] Diagnoses Encounter for screening mammogram for breast cancer Procedures KATHERINE SCREENING W ABHISHEK SCREENING DIGITAL BREAST TOMOSYNTHESIS BI SCREENING MAMMOGRAPHY BI 2-VIEW BREAST INC CAD Louis Dobbs MD [address] [place] [address] [facility] [address] [place] [address] Referral ID Status Reason Start Date Expiration Date Visits Requested Visits Authorized [id number] Pending Review Auto-Generat ed Referral 01/17/2024 02/15/2025 1 1 [facility] for referral (narrative)No reason for referral information [facility] Work Phone: Reason for visit Narrative* MRI/CAT Scan (Routine) - Closed Specialty Diagnoses / Procedures Referred By Rita mehta Referred To Contact Diagnoses Chest pain, unspecified type Other forms of dyspnea Paroxysmal atrial fibrillation Personal history of transient ischemic attack (TIA), and cerebral infarction without residual deficits Other cardiomyopathies retirement (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 anticoagulants Nicotine dependence, cigarettes, uncomplicated Rheumatic mitral stenosis with insufficiency Essential (primary) hypertension Hyperlipidemia, unspecified hyperlipidemia type Presence of xenogenic heart valve Presence of cardiac pacemaker Procedures CT ANGIO CARDIAC WITH CORONARY ARTERIES CHG CTA HRT CORNRY ART/BYPASS GRFTS CONTRST 3D POST HomeroShvaon MD [address] [place] [address] Phone: tel: fax: [facility] [address] [place] [address] Referral ID Status Reason Start Date Expiration Date Visits Re quested Visits Authorized [id number] Closed 08/14/2024 09/08/2025 1 1 [facility] for visit Narrative* Diagnostic Procedure Only (Urgent) - Closed Specialty Diagnoses / Procedures Referred By Rita mehta Referred To Contact [facility] Diagnoses Bilateral lower extremity pain Pedal edema Procedures US DVT LOWER BILATERAL DUP-SCAN XTR VEINS COMPLETE BILATERAL STUDY Judy Haywood, HYBRID TESTER.CONTRACT GRAPHIC DESIGNER [address] [place] [address] Phone: tel: fax: [place] [address] Referral ID Status Reason Start Date Expiration Date V isits Requested Visits Authorized [id number] Closed Auto-Generate d Referral 12/09/2024 01/08/2026 1 1 [facility] for visit Narrative* Diagnostic Procedure Only (Routine) - Closed Specialty Diagnoses / Procedures Referred By Rita mehta Referred To Contact [facility] Diagnoses Encounter for screening mammogram for malignant neoplasm of breast Procedures KATHERINE SCREENING W ABHISHEK SCREENING DIGITAL BREAST TOMOSYNTHESIS BI SCREENING MAMMOGRAPHY BI 2-VIEW BREAST INC CAD Louis Dobbs MD [address] [place] [address] Phone: tel: fax: [facility] [address] [place] [address] Referral ID Status Reason Start Date Expiration Date V isits Requested Visits Authorized [id number] Closed Auto-Generate d Referral 03/24/2025 04/23/2026 1 1 [facility] Summary Purpose Family History No Family History Records Found Relationship Condition Age at Onset Recorded Date/T rafal Unknown Family History?- Unknown June 182015 3:21pm Family History?- Unknown October 23, 2018 10:42am Relationship Condition Age at Onset Recorded Date/T rafal Unknown Family History?- Unknown June 182015 2:21pm Family History?- Unknown October 23, 2018 9:42am Advance Directives No Advanced Directives Records FoundDocuments on File Type Date Recorded 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 Advance Directive(s) Advance Directive(s) 10/11/2020 6:25 AM Advance Directive(s) 07/12/2016 7:20 AM Advance Directive(s) 06/23/2016 1:49 PM Advance Directive Response Recorded Date/ Time Advance Directives No September 12:24pm Living Will No October 12, 2021 4:59pm Power of Engineering And Operations Director No October 12 4:59pm Advance Directive Response Recorded Date/ Time Advance Directives No September 12:24pm Living Will No November 10, 2021 10:47am Power of Engineering And Operations Director No November 10 10:47am Advance Directive Response Recorded Date/ Time Advance Directives No September 12:24pm Living Will No December 06, 2021 10 :09am Power of Engineering And Operations Director No December 06, 2021 10:09am Advance Directive Response Recorded Date/ Time Advance Directives No September 12:24pm Living Will No December 14, 2021 1 0:16am Power of Engineering And Operations Director No December 14, 2021 10:16am Advance Directive Response Recorded Date/ Time Advance Directives No September 12:24pm Living Will No December 14, 2021 1 :48pm Power of Engineering And Operations Director No December 14, 2021 1:48pm Documents on File Type Date Recorded 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 Advance Directive(s) Advance Directive(s) 10/11/2020 6:25 AM Advance Directive(s) 07/12/2016 7:20 AM Advance Directive(s) 06/23/2016 1:49 PM Advance Directive Response Recorded Date/ Time Name of Medical Power of Engineering And Operations Director millicent carrillo February 16, 2022 12:55pm Advance Directives No September 12:24pm Living Will Yes February 16, 2022 12:55pm Power of Engineering And Operations Director Yes February 16 12:55pm Advance Directive Response Recorded Date/ Time Name of Medical Power of Engineering And Operations Director millicent carrillo February 16, 2022 12:55pm Advance Directives No September 12:24pm Living Will No February 16, 2022 5:37pm Power of Engineering And Operations Director No February 16 5:37pm Advance Directive Response Recorded Date/ Time Name of Medical Power of Engineering And Operations Director millicent carrillo February 16, 2022 12:55pm Advance Directives No September 12:24pm Living Will No May 30 11:29am Power of Engineering And Operations Director No May 30, 2022 11:29am Advance Directive Response Recorded Date/ Time Name of Medical Power of Engineering And Operations Director millicent carrillo February 16, 2022 12:55pm Advance Directives No September 12:24pm Living Will No June 08 4:22pm Power of Engineering And Operations Director No June 08, 2022 4:22pm Advance Directive Response Recorded Date/ Time Name of Medical Power of Engineering And Operations Director millicent carrillo February 16, 2022 12:55pm Advance Directives No September 12:24pm Living Will No June 10 3:58pm Power of Engineering And Operations Director No June 10, 2022 3:58pm Advance Directive Response Recorded Date/ Time Advance Directives No September 12:24pm Living Will No June 10 3:58pm Power of Engineering And Operations Director No June 10, 2022 3:58pm Advance Directive Response Recorded Date/ Time Advance Directives No September 11:24am Living Will No June 25, 2 023 5:20am Power of Engineering And Operations Director No June 25, 2023 5:20am Advance Directive Response Recorded Date/ Time Advance Directives No September 11:24am Living Will No July 24, 2 023 12:21pm Power of Engineering And Operations Director No July 24, 2023 12:21pm Advance Directive Response Recorded Date/ Time Advance Directives No September 11:24am Living Will No July 24, 2 023 3:33pm Power of Engineering And Operations Director No July 24, 2023 3:33pm Advance Directive Response Recorded Date/ Time Advance Directives No September 12:24pm Advance Directive Response Recorded Date/ Time Do you have a Healthcare Power of Engineering And Operations Director? No January 13, 2025 4:30pm Advance Directives No September 12:24pm Chief Complaint and Reason for Visit Chief Complaint FINGERSTICK 3 mos remote PPM f/u HOME DRAW LAB WORK INT LABS Audible wheezing, bruising per hh nurse LBeckyL HOMEDRAW LABWORK HOMEDRAW LABWORK HOME DRAW LAB WORK HOMEDRAW LABWORK ANXIETY 3 mos remote PPM f/u HOMEDRAW LABWORK 10 m fu Reason for Visit Complete heart block Non-ischemic cardiomyopathy Paroxysmal atrial fibrillation Presence of cardiac pacemaker Sick sinus syndrome Shortness of breath Weight gain Wheezing History of mitral valve replacement with bioprosthetic valve Hyperlipidemia Hypertension Non-ischemic cardiomyopathy Paroxysmal atrial fibrillation Presence of cardiac pacemaker Complete heart block Non-ischemic cardiomyopathy Presence of cardiac pacemaker Sick sinus syndrome Hypotension History of mitral valve replacement with bioprosthetic valve Hyperlipidemia Non-ischemic cardiomyopathy Paroxysmal atrial fibrillation Presence of cardiac pacemaker Chief Complaint 3 mos remote PPM f/u HOME DRAW LAB WORK INT LABS Audible wheezing, bruising per nurse LBeckyL HOMEDRAW LABWORK HOMEDRAW LABWORK HOME DRAW LAB WORK HOMEDRAW LABWORK ANXIETY 3 mos remote PPM f/u HOMEDRAW LABWORK 10 m fu [facility] LABWORK anxiety Reason for Visit Complete heart block Non-ischemic cardiomyopathy Paroxysmal atrial fibrillation Presence of cardiac pacemaker Sick sinus syndrome Shortness of breath Weight gain Wheezing History of mitral valve replacement with bioprosthetic valve Hyperlipidemia Hypertension Non-ischemic cardiomyopathy Paroxysmal atrial fibrillation Presence of cardiac pacemaker Complete heart block Non-ischemic cardiomyopathy Presence of cardiac pacemaker Sick sinus syndrome Hypotension History of mitral valve replacement with bioprosthetic valve Hyperlipidemia Non-ischemic cardiomyopathy Paroxysmal atrial fibrillation Presence of cardiac pacemaker Chief Complaint HOME DRAW LAB WORK INT LABS Audible wheezing, bruising per nurse LBeckyL HOMEDRAW LABWORK HOMEDRAW LABWORK HOME DRAW LAB WORK HOMEDRAW LABWORK ANXIETY 3 mos remote PPM f/u HOM[facility]RAW LABWORK 10 m fu [facility] LABWORK anxiety Reason for Visit Shortness of breath Weight gain Wheezing History of mitral valve replacement with bioprosthetic valve Hyperlipidemia Hypertension Non-ischemic cardiomyopathy Paroxysmal atrial fibrillation Presence of cardiac pacemaker Complete heart block Non-ischemic cardiomyopathy Presence of cardiac pacemaker Sick sinus syndrome Hypotension History of mitral valve replacement with bioprosthetic valve Hyperlipidemia Non-ischemic cardiomyopathy Paroxysmal atrial fibrillation Presence of cardiac pacemaker Chief Complaint HOMEDRAW LABWORK HOMEDRAW LABWORK HOME DRAW LAB WORK HOMEDRAW LABWORK ANXIETY 3 mos remote PPM f/u HOM[facility]RAW LABWORK 10 m fu [facility] LABWORK anxiety HOMEDRAW LABWORK Reason for Visit Complete heart block Non-ischemic cardiomyopathy Presence of cardiac pacemaker Sick sinus syndrome Hypotension History of mitral valve replacement with bioprosthetic valve Hyperlipidemia Non-ischemic cardiomyopathy Paroxysmal atrial fibrillation Presence of cardiac pacemaker Chief Complaint HOMEDRAW LABWORK HOMEDRAW LABWORK HOME DRAW LAB WORK HOMEDRAW LABWORK ANXIETY 3 mos remote PPM f/u [facility]RAW LABWORK 10 m fu [facility] LABWORK anxiety HOMEDRAW LABWORK NOSE BLEED Reason for Visit Complete heart block Non-ischemic cardiomyopathy Presence of cardiac pacemaker Sick sinus syndrome Hypotension History of mitral valve replacement with bioprosthetic valve Hyperlipidemia Non-ischemic cardiomyopathy Paroxysmal atrial fibrillation Presence of cardiac pacemaker Chief Complaint HOMEDRAW LABWORK HOME DRAW LAB WORK HOMEDRAW LABWORK ANXIETY 3 mos remote PPM f/u [facility]OM[facility]RAW LABWORK 10 m fu [facility] LABWORK anxiety HOMEDRAW LABWORK NOSE BLEED HOMEDRAW LABWORK HOME DRAW LAB WORK Reason for Visit Complete heart block Non-ischemic cardiomyopathy Presence of cardiac pacemaker Sick sinus syndrome Hypotension History of mitral valve replacement with bioprosthetic valve Hyperlipidemia Non-ischemic cardiomyopathy Paroxysmal atrial fibrillation Presence of cardiac pacemaker Chief Complaint HOMEDRAW LABWORK HOME DRAW LAB WORK HOMEDRAW LABWORK ANXIETY 3 mos remote PPM f/u [facility]OM[facility]RAW LABWORK 10 m fu [facility] LABWORK anxiety HOMEDRAW LABWORK NOSE BLEED HOMEDRAW LABWORK HOME DRAW LAB WORK AMS Reason for Visit Complete heart block Non-ischemic cardiomyopathy Presence of cardiac pacemaker Sick sinus syndrome Hypotension History of mitral valve replacement with bioprosthetic valve Hyperlipidemia Non-ischemic cardiomyopathy Paroxysmal atrial fibrillation Presence of cardiac pacemaker Encephalopathy Left-sided epistaxis Puncture wound Supratherapeutic INR UTI (urinary tract infection) Weakness Paroxysmal atrial fibrillation Chief Complaint HOMEDRAW LABWORK HOME DRAW LAB WORK HOMEDRAW LABWORK ANXIETY 3 mos remote PPM f/u HOM[facility]RAW LABWORK 10 m fu [facility] LABWORK anxiety HOMEDRAW LABWORK NOSE BLEED HOMEDRAW LABWORK HOME DRAW LAB WORK AMS AMS AMS Reason for Visit Complete heart block Non-ischemic cardiomyopathy Presence of cardiac pacemaker Sick sinus syndrome Hypotension History of mitral valve replacement with bioprosthetic valve Hyperlipidemia Non-ischemic cardiomyopathy Paroxysmal atrial fibrillation Presence of cardiac pacemaker Acute metabolic encephalopathy Encephalopathy Left-sided epistaxis Puncture wound Supratherapeutic INR UTI (urinary tract infection) Weakness Hypertension Nicotine dependence Paroxysmal atrial fibrillation Rheumatic mitral stenosis with insufficiency Chief Complaint HOMEDRAW LABWORK HOME DRAW LAB WORK HOMEDRAW LABWORK ANXIETY 3 mos remote PPM f/u HOMEDRAW LABWORK 10 m fu [facility] LABWORK anxiety HOMEDRAW LABWORK NOSE BLEED HOMEDRAW LABWORK HOME DRAW LAB WORK AMS AMS AMS AMS AMS AMS AMS AMS Reason for Visit Complete heart block Non-ischemic cardiomyopathy Presence of cardiac pacemaker Sick sinus syndrome Hypotension History of mitral valve replacement with bioprosthetic valve Hyperlipidemia Non-ischemic cardiomyopathy Paroxysmal atrial fibrillation Presence of cardiac pacemaker Encephalopathy UTI (urinary tract infection) Weakness Hypertension Nicotine dependence Paroxysmal atrial fibrillation Rheumatic mitral stenosis with insufficiency Acute metabolic encephalopathy Left-sided epistaxis Puncture wound Supratherapeutic INR Chief Complaint 3 mos remote PPM f/u HOM[facility]RAW LABWORK 10 m fu [facility] LABWORK anxiety HOMEDRAW LABWORK NOSE BLEED HOMEDRAW LABWORK HOME DRAW LAB WORK AMS AMS AMS AMS AMS AMS AMS AMS SEPSIS SEPSIS Reason for Visit Complete heart block Non-ischemic cardiomyopathy Presence of cardiac pacemaker Sick sinus syndrome Hypotension History of mitral valve replacement with bioprosthetic valve Hyperlipidemia Non-ischemic cardiomyopathy Paroxysmal atrial fibrillation Presence of cardiac pacemaker Weakness Hypertension Nicotine dependence Paroxysmal atrial fibrillation Rheumatic mitral stenosis with insufficiency Acute metabolic encephalopathy Encephalopathy Left-sided epistaxis Puncture wound Supratherapeutic INR UTI (urinary tract infection) Acidosis, lactic Acute kidney injury Sepsis Chief Complaint [facility] 10 m fu [facility] anxiety [facility] NOSE BLEED [facility] HOME DRAW LAB WORK AMS AMS AMS AMS AMS AMS AMS AMS SEPSIS SEPSIS SEPSIS SEPSIS SEPSIS SEPSIS SEPSIS SEPSIS SEPSIS SEPSIS SEPSIS SEPSIS Reason for Visit Hypotension History of mitral valve replacement with bioprosthetic valve Hyperlipidemia Non-ischemic cardiomyopathy Paroxysmal atrial fibrillation Presence of cardiac pacemaker Weakness Hypertension Nicotine dependence Paroxysmal atrial fibrillation Rheumatic mitral stenosis with insufficiency Acute metabolic encephalopathy Encephalopathy Left-sided epistaxis Puncture wound Supratherapeutic INR UTI (urinary tract infection) Acidosis, lactic Acute kidney injury Anemia Sepsis Chief Complaint SEPSIS SEPSIS SEPSIS SEPSIS SEPSIS SEPSIS SEPSIS SEPSIS SEPSIS SEPSIS SEPSIS SEPSIS UNSTEADY GAIT remote PPM f/u anxiety Reason for Visit Acidosis, lactic Acute kidney injury Sepsis Abnormality of gait and mobility Anxiety Dementia Depression History of stroke Tardive dyskinesia Complete heart block Paroxysmal atrial fibrillation Presence of cardiac pacemaker Chief Complaint SEPSIS SEPSIS SEPSIS SEPSIS SEPSIS SEPSIS SEPSIS SEPSIS SEPSIS SEPSIS SEPSIS SEPSIS UNSTEADY GAIT remote PPM f/u anxiety ANXIETY Reason for Visit Acidosis, lactic Acute kidney injury Sepsis Abnormality of gait and mobility Anxiety Dementia Depression History of stroke Tardive dyskinesia Complete heart block Paroxysmal atrial fibrillation Presence of cardiac pacemaker Chief Complaint SEPSIS SEPSIS SEPSIS SEPSIS SEPSIS SEPSIS SEPSIS SEPSIS SEPSIS SEPSIS SEPSIS SEPSIS UNSTEADY GAIT remote PPM f/u anxiety ANXIETY anxiety Reason for Visit Acidosis, lactic Acute kidney injury Sepsis Abnormality of gait and mobility Anxiety Dementia Depression History of stroke Tardive dyskinesia Complete heart block Paroxysmal atrial fibrillation Presence of cardiac pacemaker Chief Complaint REMOTE CHECK 9 M FU [facility] Reason for Visit Complete heart block Non-ischemic cardiomyopathy Paroxysmal atrial fibrillation Presence of cardiac pacemaker Sick sinus syndrome History of mitral valve replacement with bioprosthetic valve Hyperlipidemia Non-ischemic cardiomyopathy Paroxysmal atrial fibrillation Presence of cardiac pacemaker Chief Complaint REMOTE CHECK 9 M FU [facility] 3 mos remote PPM f/u HOME DRAW HOME DRAW LAB WORK Reason for Visit Complete heart block Non-ischemic cardiomyopathy Paroxysmal atrial fibrillation Presence of cardiac pacemaker Sick sinus syndrome History of mitral valve replacement with bioprosthetic valve Hyperlipidemia Non-ischemic cardiomyopathy Paroxysmal atrial fibrillation Presence of cardiac pacemaker Non-ischemic cardiomyopathy Sick sinus syndrome Chief Complaint REMOTE CHECK 9 M FU [facility] HOME DRAW HOME DRAW LAB WORK Reason for Visit Complete heart block Non-ischemic cardiomyopathy Paroxysmal atrial fibrillation Presence of cardiac pacemaker Sick sinus syndrome History of mitral valve replacement with bioprosthetic valve Hyperlipidemia Non-ischemic cardiomyopathy Paroxysmal atrial fibrillation Presence of cardiac pacemaker Chief Complaint HOME DRAW HOME DRAW LAB WORK Rheumatic mitral stenosis with insufficiency Chief Complaint cold Chief Complaint Pacer Check Remote cold AMBULATORY HYPOXIA AMBULATORY HYPOXIA Reason for Visit Dyspnea on exertion Hypoxia Tobacco use Chief Complaint Pacer Check Remote cold AMBULATORY HYPOXIA AMBULATORY HYPOXIA AMBULATORY HYPOXIA Reason for Visit Dyspnea on exertion Hypoxia Tobacco use Chief Complaint Admit Date Amb Documentation June 25, 2024 2:53pm EORDER June 28, 2024 1:48pm Pacer Check Remote August 14, 2024 3: 06am SEE CLINICAL NOTE October 11, 2024 9:17 am eorders October 11, 2024 9:53 am Reason for Visit Admit Date Hypokalemia October 11, 2024 9:17 am Tricuspid insufficiency October 11, 2024 9:17am History of mitral valve replacement with bioprosthetic valve October 11, 2024 9:17am Hyperlipidemia October 11, 2024 9:17 am Non-ischemic cardiomyopathy October 11, 025 9:17am Paroxysmal atrial fibrillation October 9:17am Presence of cardiac pacemaker October 11, 2024 9:17am Chief Complaint Admit Date SEE CLINICAL NOTE October 11, 2024 9:17 am eorders October 11, 2024 9:53 am Pacer Check Remote November 13, 2024 2:00 am FALL January 13, 2025 1:40p m Chief Complaint Admit Date Pacer Check Remote November 13, 2024 2:00 am FALL January 13, 2025 1:40p m Annual in-clinic check February 13, 2025 1 2:57pm Reason for Visit Admit Date Presence of cardiac pacemaker February 13, 2025 12:57pm Sick sinus syndrome February 13, 2025 12:5 7pm Chief Complaint Admit Date Pacer Check Remote November 13, 2024 2:00 am FALL January 13, 2025 1:40p m Pacer Check Remote February 12, 2025 2:00a m Pacer Check Remote February 13, 2025 9:00 am Annual in-clinic check February 13, 2025 1 2:57pm Chief Complaint Admit Date Pacer Check Remote November 13, 2024 2:00 am FALL January 13, 2025 1:40p m Pacer Check Remote February 12, 2025 2:00a m Pacer Check Remote February 13, 2025 9:00 am Annual in-clinic check February 13, 2025 1 2:57pm FCE/RX HERE February 27, 2025 12:5 1pm Additional Source Comments INFORMATION SOURCE (unrecogn ized section and content) DATE CREATED AUTHOR 10/12/2020 [facility] ([place]) DATE CREATED AUTHOR AUTHOR'S ORGANIZ ATION 11/19/2020 [facility] DATE CREATED AUTHOR AUTHOR'S ORGANIZ ATION 11/25/2020 [facility] DATE CREATED AUTHOR AUTHOR'S ORGANIZ ATION 02/04/2021 [facility] DATE CREATED AUTHOR AUTHOR'S ORGANIZ ATION 06/17/2022 [facility] DATE CREATED AUTHOR AUTHOR'S ORGANIZ ATION 09/28/2024 [facility] DATE CREATED AUTHOR AUTHOR'S ORGANIZ ATION 04/05/2025 [facility] DATE CREATED AUTHOR AUTHOR'S ORGANIZ ATION 04/11/2025 [facility] Source Comments (unrecognize d section and content) In the event this informatio n is protected by the Federal Confidentiality of Alcohol and Drug Abuse Patient Records regulations: The Federal rules restrict any use of the information to criminally investigate or prosecute any alcohol or drug abuse patient.[facility] the event this information is protected by the Federal Confidentiality of Alcohol and Drug Abuse Patient Records regulations: The Federal rules restrict any use of the information to criminally investigate or prosecute any alcohol or drug abuse patient.[facility]In the event this information is protected by the Federal Confidentiality of Alcohol and Drug Abuse Patient Records regulations: The Federal rules restrict any use of the information to criminally investigate or prosecute any alcohol or drug abuse patient.[facility]In the event this information is protected by the Federal Confidentiality of Alcohol and Drug Abuse Patient Records regulations: The Federal rules restrict any use of the information to criminally investigate or prosecute any alcohol or drug abuse patient.[facility]In the event this information is protected by the Federal Confidentiality of Alcohol and Drug Abuse Patient Records regulations: The Federal rules restrict any use of the information to criminally investigate or prosecute any alcohol or drug abuse patient.[facility] HospitalIn the event this information is protected by the Federal Confidentiality of Alcohol and Drug Abuse Patient Records regulations: The Federal rules restrict any use of the information to criminally investigate or prosecute any alcohol or drug abuse patient.[facility] HospitalIn the event this information is protected by the Federal Confidentiality of Alcohol and Drug Abuse Patient Records regulations: The Federal rules restrict any use of the information to criminally investigate or prosecute any alcohol or drug abuse patient.[facility] HospitalIn the event this information is protected by the Federal Confidentiality of Alcohol and Drug Abuse Patient Records regulations: The Federal rules restrict any use of the information to criminally investigate or prosecute any alcohol or drug abuse patient.[facility] HospitalIn the event this information is protected by the Federal Confidentiality of Alcohol and Drug Abuse Patient Records regulations: The Federal rules restrict any use of the information to criminally investigate or prosecute any alcohol or drug abuse patient.[facility] HospitalIn the event this information is protected by the Federal Confidentiality of Alcohol and Drug Abuse Patient Records regulations: The Federal rules restrict any use of the information to criminally investigate or prosecute any alcohol or drug abuse patient.[facility] HospitalIn the event this information is protected by the Federal Confidentiality of Alcohol and Drug Abuse Patient Records regulations: The Federal rules restrict any use of the information to criminally investigate or prosecute any alcohol or drug abuse patient.[facility] HospitalIn the event this information is protected by the Federal Confidentiality of Alcohol and Drug Abuse Patient Records regulations: The Federal rules restrict any use of the information to criminally investigate or prosecute any alcohol or drug abuse patient.[facility] HospitalIn the event this information is protected by the Federal Confidentiality of Alcohol and Drug Abuse Patient Records regulations: The Federal rules restrict any use of the information to criminally investigate or prosecute any alcohol or drug abuse patient.[facility] HospitalIn the event this information is protected by the Federal Confidentiality of Alcohol and Drug Abuse Patient Records regulations: The Federal rules restrict any use of the information to criminally investigate or prosecute any alcohol or drug abuse patient.[facility] HospitalIn the event this information is protected by the Federal Confidentiality of Alcohol and Drug Abuse Patient Records regulations: The Federal rules restrict any use of the information to criminally investigate or prosecute any alcohol or drug abuse patient.[facility] HospitalIn the event this information is protected by the Federal Confidentiality of Alcohol and Drug Abuse Patient Records regulations: The Federal rules restrict any use of the information to criminally investigate or prosecute any alcohol or drug abuse patient.[facility] HospitalIn the event this information is protected by the Federal Confidentiality of Alcohol and Drug Abuse Patient Records regulations: The Federal rules restrict any use of the information to criminally investigate or prosecute any alcohol or drug abuse patient.[facility] HospitalIn the event this information is protected by the Federal Confidentiality of Alcohol and Drug Abuse Patient Records regulations: The Federal rules restrict any use of the information to criminally investigate or prosecute any alcohol or drug abuse patient.[facility] HospitalIn the event this information is protected by the Federal Confidentiality of Alcohol and Drug Abuse Patient Records regulations: The Federal rules restrict any use of the information to criminally investigate or prosecute any alcohol or drug abuse patient.[facility] HospitalIn the event this information is protected by the Federal Confidentiality of Alcohol and Drug Abuse Patient Records regulations: The Federal rules restrict any use of the information to criminally investigate or prosecute any alcohol or drug abuse patient.[facility] HospitalIn the event this information is protected by the Federal Confidentiality of Alcohol and Drug Abuse Patient Records regulations: The Federal rules restrict any use of the information to criminally investigate or prosecute any alcohol or drug abuse patient.[facility] HospitalIn the event this information is protected by the Federal Confidentiality of Alcohol and Drug Abuse Patient Records regulations: The Federal rules restrict any use of the information to criminally investigate or prosecute any alcohol or drug abuse patient.[facility] HospitalIn the event this information is protected by the Federal Confidentiality of Alcohol and Drug Abuse Patient Records regulations: The Federal rules restrict any use of the information to criminally investigate or prosecute any alcohol or drug abuse patient.[facility] HospitalIn the event this information is protected by the Federal Confidentiality of Alcohol and Drug Abuse Patient Records regulations: The Federal rules restrict any use of the information to criminally investigate or prosecute any alcohol or drug abuse patient.[facility] HospitalIn the event this information is protected by the Federal Confidentiality of Alcohol and Drug Abuse Patient Records regulations: The Federal rules restrict any use of the information to criminally investigate or prosecute any alcohol or drug abuse patient.[facility] HospitalIn the event this information is protected by the Federal Confidentiality of Alcohol and Drug Abuse Patient Records regulations: The Federal rules restrict any use of the information to criminally investigate or prosecute any alcohol or drug abuse patient.[facility] HospitalIn the event this information is protected by the Federal Confidentiality of Alcohol and Drug Abuse Patient Records regulations: The Federal rules restrict any use of the information to criminally investigate or prosecute any alcohol or drug abuse patient.[facility] HospitalIn the event this information is protected by the Federal Confidentiality of Alcohol and Drug Abuse Patient Records regulations: The Federal rules restrict any use of the information to criminally investigate or prosecute any alcohol or drug abuse patient.[facility] HospitalIn the event this information is protected by the Federal Confidentiality of Alcohol and Drug Abuse Patient Records regulations: The Federal rules restrict any use of the information to criminally investigate or prosecute any alcohol or drug abuse patient.[facility] HospitalIn the event this information is protected by the Federal Confidentiality of Alcohol and Drug Abuse Patient Records regulations: The Federal rules restrict any use of the information to criminally investigate or prosecute any alcohol or drug abuse patient.[facility] HospitalIn the event this information is protected by the Federal Confidentiality of Alcohol and Drug Abuse Patient Records regulations: The Federal rules restrict any use of the information to criminally investigate or prosecute any alcohol or drug abuse patient.[facility] HospitalIn the event this information is protected by the Federal Confidentiality of Alcohol and Drug Abuse Patient Records regulations: The Federal rules restrict any use of the information to criminally investigate or prosecute any alcohol or drug abuse patient.[facility]In the event this information is protected by the Federal Confidentiality of Alcohol and Drug Abuse Patient Records regulations: The Federal rules restrict any use of the information to criminally investigate or prosecute any alcohol or drug abuse patient.[facility] HospitalIn the event this information is protected by the Federal Confidentiality of Alcohol and Drug Abuse Patient Records regulations: The Federal rules restrict any use of the information to criminally investigate or prosecute any alcohol or drug abuse patient.[facility] HospitalIn the event this information is protected by the Federal Confidentiality of Alcohol and Drug Abuse Patient Records regulations: The Federal rules restrict any use of the information to criminally investigate or prosecute any alcohol or drug abuse patient.[facility] HospitalIn the event this information is protected by the Federal Confidentiality of Alcohol and Drug Abuse Patient Records regulations: The Federal rules restrict any use of the information to criminally investigate or prosecute any alcohol or drug abuse patient.[facility] HospitalIn the event this information is protected by the Federal Confidentiality of Alcohol and Drug Abuse Patient Records regulations: The Federal rules restrict any use of the information to criminally investigate or prosecute any alcohol or drug abuse patient.[facility] HospitalIn the event this information is protected by the Federal Confidentiality of Alcohol and Drug Abuse Patient Records regulations: The Federal rules restrict any use of the information to criminally investigate or prosecute any alcohol or drug abuse patient.[facility] HospitalIn the event this information is protected by the Federal Confidentiality of Alcohol and Drug Abuse Patient Records regulations: The Federal rules restrict any use of the information to criminally investigate or prosecute any alcohol or drug abuse patient.[facility] HospitalIn the event this information is protected by the Federal Confidentiality of Alcohol and Drug Abuse Patient Records regulations: The Federal rules restrict any use of the information to criminally investigate or prosecute any alcohol or drug abuse patient.[facility] HospitalIn the event this information is protected by the Federal Confidentiality of Alcohol and Drug Abuse Patient Records regulations: The Federal rules restrict any use of the information to criminally investigate or prosecute any alcohol or drug abuse patient.[facility] HospitalIn the event this information is protected by the Federal Confidentiality of Alcohol and Drug Abuse Patient Records regulations: The Federal rules restrict any use of the information to criminally investigate or prosecute any alcohol or drug abuse patient.[facility] HospitalIn the event this information is protected by the Federal Confidentiality of Alcohol and Drug Abuse Patient Records regulations: The Federal rules restrict any use of the information to criminally investigate or prosecute any alcohol or drug abuse patient.[facility] HospitalIn the event this information is protected by the Federal Confidentiality of Alcohol and Drug Abuse Patient Records regulations: The Federal rules restrict any use of the information to criminally investigate or prosecute any alcohol or drug abuse patient.[facility] HospitalIn the event this information is protected by the Federal Confidentiality of Alcohol and Drug Abuse Patient Records regulations: The Federal rules restrict any use of the information to criminally investigate or prosecute any alcohol or drug abuse patient.[facility] HospitalIn the event this information is protected by the Federal Confidentiality of Alcohol and Drug Abuse Patient Records regulations: The Federal rules restrict any use of the information to criminally investigate or prosecute any alcohol or drug abuse patient.[facility] HospitalIn the event this information is protected by the Federal Confidentiality of Alcohol and Drug Abuse Patient Records regulations: The Federal rules restrict any use of the information to criminally investigate or prosecute any alcohol or drug abuse patient.[facility] HospitalIn the event this information is protected by the Federal Confidentiality of Alcohol and Drug Abuse Patient Records regulations: The Federal rules restrict any use of the information to criminally investigate or prosecute any alcohol or drug abuse patient.[facility] HospitalIn the event this information is protected by the Federal Confidentiality of Alcohol and Drug Abuse Patient Records regulations: The Federal rules restrict any use of the information to criminally investigate or prosecute any alcohol or drug abuse patient.[facility] HospitalIn the event this information is protected by the Federal Confidentiality of Alcohol and Drug Abuse Patient Records regulations: The Federal rules restrict any use of the information to criminally investigate or prosecute any alcohol or drug abuse patient.[facility] HospitalIn the event this information is protected by the Federal Confidentiality of Alcohol and Drug Abuse Patient Records regulations: The Federal rules restrict any use of the information to criminally investigate or prosecute any alcohol or drug abuse patient.[facility] HospitalIn the event this information is protected by the Federal Confidentiality of Alcohol and Drug Abuse Patient Records regulations: The Federal rules restrict any use of the information to criminally investigate or prosecute any alcohol or drug abuse patient.[facility] HospitalIn the event this information is protected by the Federal Confidentiality of Alcohol and Drug Abuse Patient Records regulations: The Federal rules restrict any use of the information to criminally investigate or prosecute any alcohol or drug abuse patient.[facility] HospitalIn the event this information is protected by the Federal Confidentiality of Alcohol and Drug Abuse Patient Records regulations: The Federal rules restrict any use of the information to criminally investigate or prosecute any alcohol or drug abuse patient.[facility] HospitalIn the event this information is protected by the Federal Confidentiality of Alcohol and Drug Abuse Patient Records regulations: The Federal rules restrict any use of the information to criminally investigate or prosecute any alcohol or drug abuse patient.[facility] HospitalIn the event this information is protected by the Federal Confidentiality of Alcohol and Drug Abuse Patient Records regulations: The Federal rules restrict any use of the information to criminally investigate or prosecute any alcohol or drug abuse patient.[facility] HospitalIn the event this information is protected by the Federal Confidentiality of Alcohol and Drug Abuse Patient Records regulations: The Federal rules restrict any use of the information to criminally investigate or prosecute any alcohol or drug abuse patient.[facility] HospitalIn the event this information is protected by the Federal Confidentiality of Alcohol and Drug Abuse Patient Records regulations: The Federal rules restrict any use of the information to criminally investigate or prosecute any alcohol or drug abuse patient.[facility] HospitalIn the event this information is protected by the Federal Confidentiality of Alcohol and Drug Abuse Patient Records regulations: The Federal rules restrict any use of the information to criminally investigate or prosecute any alcohol or drug abuse patient.[facility] HospitalIn the event this information is protected by the Federal Confidentiality of Alcohol and Drug Abuse Patient Records regulations: The Federal rules restrict any use of the information to criminally investigate or prosecute any alcohol or drug abuse patient.[facility] HospitalIn the event this information is protected by the Federal Confidentiality of Alcohol and Drug Abuse Patient Records regulations: The Federal rules restrict any use of the information to criminally investigate or prosecute any alcohol or drug abuse patient.[facility] Hospital[facility] the event this information is protected by the Federal Confidentiality of Alcohol and Drug Abuse Patient Records regulations: The Federal rules restrict any use of the information to criminally investigate or prosecute any alcohol or drug abuse patient.[facility] HospitalIn the event this information is protected by the Federal Confidentiality of Alcohol and Drug Abuse Patient Records regulations: The Federal rules restrict any use of the information to criminally investigate or prosecute any alcohol or drug abuse patient.[facility] Hospital[facility] the event this information is protected by the Federal Confidentiality of Alcohol and Drug Abuse Patient Records regulations: The Federal rules restrict any use of the information to criminally investigate or prosecute any alcohol or drug abuse patient.[facility] HospitalIn the event this information is protected by the Federal Confidentiality of Alcohol and Drug Abuse Patient Records regulations: The Federal rules restrict any use of the information to criminally investigate or prosecute any alcohol or drug abuse patient.[facility] Hospital[facility] the event this information is protected by the Federal Confidentiality of Alcohol and Drug Abuse Patient Records regulations: The Federal rules restrict any use of the information to criminally investigate or prosecute any alcohol or drug abuse patient.[facility] HospitalIn the event this information is protected by the Federal Confidentiality of Alcohol and Drug Abuse Patient Records regulations: The Federal rules restrict any use of the information to criminally investigate or prosecute any alcohol or drug abuse patient.[facility] HospitalIn the event this information is protected by the Federal Confidentiality of Alcohol and Drug Abuse Patient Records regulations: The Federal rules restrict any use of the information to criminally investigate or prosecute any alcohol or drug abuse patient.[facility] HospitalIn the event this information is protected by the Federal Confidentiality of Alcohol and Drug Abuse Patient Records regulations: The Federal rules restrict any use of the information to criminally investigate or prosecute any alcohol or drug abuse patient.[facility] HospitalIn the event this information is protected by the Federal Confidentiality of Alcohol and Drug Abuse Patient Records regulations: The Federal rules restrict any use of the information to criminally investigate or prosecute any alcohol or drug abuse patient.[facility] HospitalIn the event this information is protected by the Federal Confidentiality of Alcohol and Drug Abuse Patient Records regulations: The Federal rules restrict any use of the information to criminally investigate or prosecute any alcohol or drug abuse patient.[facility] Reason for Visit (unrecogniz ed section and content) Reason Comments verbal orders Reason Comments Medication Request Reason Onset Date Comments Refill Request 12/06/2021 Reason Comments asking for verbal order Reason Comments Epistaxis Reason Comments Release Of Medical Records Reason Comments [facility]HAide services Reason Comments Clinical Update Reason Comments HH Orders Reason Comments [facility] PT POC Orders Reason Comments Home Health Point of Care Results Reason Comments report of patient fall Reason Comments Patient Update Reason Comments INR and Coumadin dosing Reason Comments Refill Request Reason Comments [facility] POC and patient update Reason Comments Patient Question Patient Update Orders Reason Comments [facility] Tenders HH/verbal order n eeded Reason Comments [place] /inquiring about INRs Reason Comments Clinical Update INR Reason Onset Date Comments Transition Of Care 10/18/2022 Reason Onset Date Comments Refill Request 11/02/2022 Reason Comments Patient Update Fall on Monday Reason Onset Date Comments Radiology Mammogram 12/08/[address] [facility] Reason Comments Results Reason Onset Date Comments Refill Request 01/23/2023 Reason Onset Date Comments Refill Request 02/17/2023 Refill Request 03/20/2023 Reason Onset Date Comments Refill Request 05/12/2023 Reason Comments Home Health Reason Comments Patient Question inhaler Reason Comments Radiology US Specialty Diagnoses / Procedures Referred By Rita t Referred To Contact [facility] Diagnoses Family history of breast cancer in first degree relative Family history of breast cancer in male Procedures US BREAST LTD RIGHT US BREAST UNI REAL TIME WITH IMAGE LIMITED Silvia Yates APRN.[email or web address] GRAPHIC DESIGNER [address] [place] [address] [facility] [address] [place] [address] Referral ID Status Reason Start Date Expiration Date V isits Requested Visits Authorized [id number] Closed Auto-Generate d Referral 12/08/2022 01/07/2024 1 1 Reason Onset Date Comments Refill Request 09/29/2023 Reason Onset Date Comments Refill Request 10/03/2023 Reason Onset Date Comments Refill Request 04/17/2023 Refill Request 10/09/2023 Reason Onset Date Comments Population Health Navigation Outreach 11/28/2023 [place] AWV/HCC and care gaps Reason Onset Date Comments Refill Request 11/28/2023 Reason Onset Date Comments Refill Request 12/26/2023 Reason Onset Date Comments Population Health Navigation Outreach 01/30/2024 [place] AWV/HCC and care gaps Reason Onset Date Comments Appointment 03/05/2024 Reason Comments Patient Outreach Reason Onset Date Comments Refill Request 03/19/2024 Reason Onset Date Comments Refill Request 05/08/2024 Reason Comments Medicare Wellness Exam Reason Onset Date Comments Refill Request 06/19/2024 Reason Onset Date Comments Refill Request 09/02/2024 Reason Onset Date Comments Refill Request 10/30/2024 Reason Comments Patient Update Appointment Reason Comments Edema Bilateral feet/ ting ling/pricking sensation x 3 days Reason Onset Date Comments Results 12/09/2024 Reason Comments F/U 6 Month Reason Comments Letter Reason Comments Neuropathy Bilateral foot pain, and strokes discuss getting scooter Reason Comments Orders Reason Comments Functional Capacity Eval [facility] ed that she needs a functional capacity test Reason Comments F/U 3 Month Care Teams (unrecognized sec tion and content) Licensed Aircraft Maintenance Engineer Relationship Specialty Start Date End Date Louis Dobbs MD [address] [place], [place] [id number] PCP - General 12/27/06 Lee Carrizales P [address] [place], [place] [address] Specialty Analytics Intern EDITING CLERK 08/19/13 Malik Reis (Hist) [address] [place], [place] [address] Consulting Cardiology 10/22/13 Licensed Aircraft Maintenance Engineer Relationship Specialty Start Date End Date Louis Dobbs MD [address] [place], [place] [id number] PCP - General 12/27/06 Lee Carrizales P [address] [place] [address] Specialty Analytics Intern EDITING CLERK 08/19/13 Malik Reis (Hist) [address] [place] [address] Consulting Cardiology 10/22/13 Licensed Aircraft Maintenance Engineer Relationship Specialty Start Date End Date Louis Dobbs MD [address] [place] [address] PCP - General 12/27/06 Lee Carrizales P [address] [place] [address] Specialty Analytics Intern EDITING CLERK 08/19/13 Malik Reis (Hist) [address] [place] [address] Consulting Cardiology 10/22/13 Licensed Aircraft Maintenance Engineer Relationship Specialty Start Date End Date Louis Dobbs MD [address] [place] [address] PCP - General 12/27/06 Lee Carrizales P [address] [place] [address] Specialty Analytics Intern EDITING CLERK 08/19/13 Malik Reis (Hist) [address] [place] [address] Consulting Cardiology 10/22/13 Licensed Aircraft Maintenance Engineer Relationship Specialty Start Date End Date Louis Dobbs MD [address] [place] [address] PCP - General 12/27/06 Lee Carrizales P [address] [place] [address] Specialty Analytics Intern EDITING CLERK 08/19/13 Malik Reis (Hist) [address] [place] [address] Consulting Cardiology 10/22/13 Licensed Aircraft Maintenance Engineer Relationship Specialty Start Date End Date Louis Dobbs MD [address] [place] [address] PCP - General 12/27/06 Lee Carrizales P [address] [place] [address] Specialty Analytics Intern EDITING CLERK 08/19/13 Malik Reis (Hist) [address] [place] [address] Consulting Cardiology 10/22/13 Licensed Aircraft Maintenance Engineer Relationship Specialty Start Date End Date Louis Dobbs MD [address] [place] [address] PCP - General 12/27/06 Lee Carrizales P [address] [place] [address] Specialty Analytics Intern EDITING CLERK 08/19/13 Malik Reis (Hist) [address] [place] [address] Consulting Cardiology 10/22/13 Licensed Aircraft Maintenance Engineer Relationship Specialty Start Date End Date Louis Dobbs MD [address] [place] [address] PCP - General 12/27/06 Lee Carrizales P [address] [place] [address] Specialty Analytics Intern EDITING CLERK 08/19/13 Malik Reis (Hist) [address] [place] [address] Consulting Cardiology 10/22/13 Licensed Aircraft Maintenance Engineer Relationship Specialty Start Date End Date Louis Dobbs MD [address] [place] [address] PCP - General 12/27/06 Lee Carrizales P [address] [place] [address] Specialty Analytics Intern EDITING CLERK 08/19/13 Malik Reis (Hist) [address] [place] [address] Consulting Cardiology 10/22/13 Licensed Aircraft Maintenance Engineer Relationship Specialty Start Date End Date Louis Dobbs MD [address] [place] [address] PCP - General 12/27/06 Lee Carrizales P [address] [place] [address] Specialty Analytics Intern EDITING CLERK 08/19/13 Malik Reis (Hist) [address] [place] [address] Consulting Cardiology 10/22/13 Licensed Aircraft Maintenance Engineer Relationship Specialty Start Date End Date Louis Dobbs MD [address] [place] [address] PCP - General 12/27/06 Lee Carrizales P [address] [place] [address] Specialty Analytics Intern EDITING CLERK 08/19/13 Malik Reis (Hist) [address] [place] [address] Consulting Cardiology 10/22/13 Licensed Aircraft Maintenance Engineer Relationship Specialty Start Date End Date Louis Dobbs MD [address] [place] [address] PCP - General 12/27/06 Lee Carrizales P [address] [place] [address] Specialty Analytics Intern EDITING CLERK 08/19/13 Malik Reis (Hist) [address] [place] [address] Consulting Cardiology 10/22/13 Licensed Aircraft Maintenance Engineer Relationship Specialty Start Date End Date Louis Dobbs MD [address] [place] [address] PCP - General 12/27/06 Lee Carrizales P [address] [place] [address] Specialty Analytics Intern EDITING CLERK 08/19/13 Malik Reis [address] [place] [address] Consulting Cardiology 10/22/13 Licensed Aircraft Maintenance Engineer Relationship Specialty Start Date End Date Louis Dobbs MD [address] [place] [address] PCP - General 12/27/06 Lee Carrizales P [address] [place] [address] Specialty Analytics Intern EDITING CLERK 08/19/13 Malik Reis [address] [place] [address] Consulting Cardiology 10/22/13 Licensed Aircraft Maintenance Engineer Relationship Specialty Start Date End Date Louis Dobbs MD [address] [place] [address] PCP - General 12/27/06 Lee Carrizales P [address] [place] [address] Specialty Analytics Intern EDITING CLERK 08/19/13 Malik Reis E [address] [address] Consulting Cardiology 10/22/13 Team Status: Active Member Role Status Dates Dr. Louis Dobbs MD Family Provider Active Dr. Louis Dobbs MD Primary Care Provider Active Team Status: Inactive Member Role Status Dates Dr. Louis Dobbs MD Primary Care Provider, Refer ring Provider Active Lucio CLAUDIO, PA Attending Provider Active Team Status: Inactive Member Role Status Dates Dr. Louis Dobbs MD Primary Care Provider, Refer ring Provider Active Bernie Wallace Active Dr. Javed Smith MD Attending Provider Active Team Status: Inactive Member Role Status Dates Dr. Louis Dobbs MD Primary Care Provider Active Lucio CLAUDIO, PA Attending Provider Active Licensed Aircraft Maintenance Engineer Relationship Specialty Start Date End Date Louis Dobbs MD [address] [facility] [place] [address] PCP - General 12/27/06 Lee Carrizales P [address] [place] [address] Specialty Analytics Intern EDITING CLERK 08/19/13 Malik Reis E [address] [place] [address] Consulting Cardiology 10/22/13 Team Status: Inactive Member Role Status Dates Dr. Louis Dobbs MD Primary Care Provider, Refer ring Provider Active Bernie Wallace Attending Provider Active Team Status: Active Member Role Status Dates Dr. Louis Dobbs MD Primary Care Provider Active Lucio Basurto PA, PA Attending Provider, Referr ing Provider Active Team Status: Inactive Member Role Status Dates Dr. Louis Dobbs MD Primary Care Provider Active Lucio CLAUDIO, PA Attending Provider, Referr ing Provider Active Licensed Aircraft Maintenance Engineer Relationship Specialty Start Date End Date Louis Dobbs MD [address] [place] [address] PCP - General 12/27/06 Lee Carrizales P [address] [place] [address] Specialty Analytics Intern EDITING CLERK 08/19/13 Malik Reis [address] [place] [address] Consulting Cardiology 10/22/13 Licensed Aircraft Maintenance Engineer Relationship Specialty Start Date End Date Louis Dobbs MD [address] [place] [address] PCP - General 12/27/06 Lee Carrizales P [address] [place] [address] Specialty Analytics Intern EDITING CLERK 08/19/13 Malik Reis [address] [place] [address] Consulting Cardiology 10/22/13 Licensed Aircraft Maintenance Engineer Relationship Specialty Start Date End Date Louis Dobbs MD [address] [place] [address] PCP - General 12/27/06 Lee Carrizales P [address] [place] [address] Specialty Analytics Intern EDITING CLERK 08/19/13 Malik Reis [address] [place] [address] Consulting Cardiology 10/22/13 Licensed Aircraft Maintenance Engineer Relationship Specialty Start Date End Date Louis Dobbs MD [address] [place] [address] PCP - General 12/27/06 Lee Carrizales [address] [place] [address] Specialty Analytics Intern EDITING CLERK 08/19/13 Malik Reis [address] [place] [address] Consulting Cardiology 10/22/13 Team Status: Active Member Role Status Dates Dr. Louis Dobbs MD Primary Care Provider, Atten ding Provider Active Team Status: Active Member Role Status Dates Dr. Louis Dobbs MD Primary Care Provider Active Dr. Jonnathan Gama MD Attending Provider Active Team Status: Inactive Member Role Status Dates Dr. Louis Dobbs MD Primary Care Provider Active Myra Reese GRAPHICS MANAGER, GRAPHICS MANAGER-C Attending Provider, Referring Provider Active Licensed Aircraft Maintenance Engineer Relationship Specialty Start Date End Date Louis Dobbs MD [address] [place] [place] [address] PCP - General 12/27/06 Lee Carrizales [address] [place] [address] Specialty Analytics Intern EDITING CLERK 08/19/13 Malik Reis [address] [place], [place] [address] Consulting Cardiology 10/22/13 Licensed Aircraft Maintenance Engineer Relationship Specialty Start Date End Date Louis Dobbs MD [address] [place] [address] PCP - General 12/27/06 Lee Carrizales [address] [place] [address] Specialty Analytics Intern EDITING CLERK 08/19/13 Malik Reis [address] [place] [address] Consulting Cardiology 10/22/13 Licensed Aircraft Maintenance Engineer Relationship Specialty Start Date End Date Louis Dobbs MD [address] [place] [address] PCP - General 12/27/06 Lee Carrizales [address] [place] [address] Specialty Analytics Intern EDITING CLERK 08/19/13 Malik Reis [address] [place] [address] Consulting Cardiology 10/22/13 Licensed Aircraft Maintenance Engineer Relationship Specialty Start Date End Date Louis Dobbs MD [address] [place] [address] PCP - General 12/27/06 Lee Carrizales [address] [place] [address] Specialty Analytics Intern EDITING CLERK 08/19/13 Malik Reis [address] [place] [address] Consulting Cardiology 10/22/13 Licensed Aircraft Maintenance Engineer Relationship Specialty Start Date End Date Louis Dobbs MD [address] [place] [address] PCP - General 12/27/06 Lee Carrizales [address] [place] [address] Specialty Analytics Intern EDITING CLERK 08/19/13 Malik Reis [address] [place] [address] Consulting Cardiology 10/22/13 Team Status: Inactive Member Role Status Dates Dr. Louis Dobbs MD Primary Care Provider Active Dr. Bryson Hua MD Emergency Provider Active Team Status: Active Member Role Status Dates Dr. Louis Dobbs MD Primary Care Provider Active Arie Thomas MD Emergency Provider Active Dr. Merna Scherer DO Admit Provider, Att ending Provider, Other Provider Active Team Status: Inactive Member Role Status Dates Dr. Louis Dobbs MD Primary Care Provider Active Dr. Bryson Hua MD Attending Provider, Emergency Provider Active Team Status: Active Member Role Status Dates Dr. Louis Dobbs MD Primary Care Provider Active Arie Thomas MD Emergency Provider Active Dr. Merna Scherer DO Admit Provider, Attending Provide r Active Team Status: Inactive Member Role Status Dates Dr. Louis Dobbs MD Primary Care Provider Active Dr. Jonnathan Gama MD Attending Provider Active Team Status: Active Member Role Status Dates Dr. Louis Dobbs MD Primary Care Provider Active Arie Thomas MD Emergency Provider Active Dr. Merna Scherer DO Admit Provider, Other Provider Ac tive Dr. Stephan Chery DO Attending Provider, Other Provid er Active Team Status: Inactive Member Role Status Dates Dr. Louis Dobbs MD Primary Care Provider Active Arie Thomas MD Emergency Provider Active Dr. Merna Scherer DO Admit Provider, Other Provider Ac tive Dr. Stephan Chery DO Attending Provider Active Licensed Aircraft Maintenance Engineer Relationship Specialty Start Date End Date Louis Dobbs MD [address] [facility] [place] [place] [address] PCP - General 12/27/06 Lee Carrizales MD [address] [place] [address] Specialty Analytics Intern Teaching Supervisor 08/19/13 Malik Reis [address] [place] [address] (Fax) Consulting Cardiology 10/22/13 Licensed Aircraft Maintenance Engineer Relationship Specialty Start Date End Date Louis Dobbs MD [address] [place] [address] PCP - General 12/27/06 Lee Carrizales MD [address] [place] [address] Specialty Analytics Intern Teaching Supervisor 08/19/13 Malik Reis [address] [place] [address] (Fax) Consulting Cardiology 10/22/13 Licensed Aircraft Maintenance Engineer Relationship Specialty Start Date End Date Louis Dobbs MD [address] [place] [address] PCP - General 12/27/06 Lee Carrizales MD [address] [place] [address] Specialty Analytics Intern Teaching Supervisor 08/19/13 Malik Reis [address] [place] [address] Consulting Cardiology 10/22/13 Licensed Aircraft Maintenance Engineer Relationship Specialty Start Date End Date Louis Dobbs MD [address] [place] [address] PCP - General 12/27/06 Lee Carrizales MD [address] [place] [address] Specialty Analytics Intern Teaching Supervisor 08/19/13 Malik Reis [address] [place] [address] Consulting Cardiology 10/22/13 Licensed Aircraft Maintenance Engineer Relationship Specialty Start Date End Date Louis Dobbs MD [address] [place] [address] PCP - General 12/27/06 Lee Carrizales MD [address] [place] [address] Specialty Analytics Intern Teaching Supervisor 08/19/13 Malik Reis [address] [place] [address] Consulting Cardiology 10/22/13 Licensed Aircraft Maintenance Engineer Relationship Specialty Start Date End Date Louis Dobbs MD [address] [place] [address] PCP - General 12/27/06 Lee Carrizales MD [address] [place] [address] Specialty Analytics Intern Teaching Supervisor 08/19/13 Malik Reis [address] [place] [address] Consulting Cardiology 10/22/13 Licensed Aircraft Maintenance Engineer Relationship Specialty Start Date End Date Louis Dobbs MD [address] [place] [address] PCP - General 12/27/06 Lee Carrizales MD [address] [place] [address] Specialty Analytics Intern Teaching Supervisor 08/19/13 Malik Reis [address] [place] [address] (Fax) Consulting Cardiology 10/22/13 Licensed Aircraft Maintenance Engineer Relationship Specialty Start Date End Date Louis Dobbs MD [address] [place] [address] PCP - General 12/27/06 Lee Carrizales MD [address] [place] [address] Specialty Analytics Intern Teaching Supervisor 08/19/13 Malik Reis [address] [place] [address] (Fax) Consulting Cardiology 10/22/13 Licensed Aircraft Maintenance Engineer Relationship Specialty Start Date End Date Louis Dobsb MD [address] [place] [address] PCP - General 12/27/06 Lee Carrizales MD [address] [place] [address] Specialty Analytics Intern Teaching Supervisor 08/19/13 Malik Reis MD [address] [place] [address] Consulting Cardiology 10/22/13 Judy Haywood, HYBRID [email or web address] GRAPHIC DESIGNER [address] [place] [address] Art Department Head Internal Medicine 07/15/24 Licensed Aircraft Maintenance Engineer Relationship Specialty Start Date End Date Louis Dobbs MD [address] [place] [address] PCP - General 12/27/06 Lee Carrizales MD [address] [place] [address] Specialty Analytics Intern Teaching Supervisor 08/19/13 Malik Reis MD [address] [place] [address] Consulting Cardiology 10/22/13 Judy Haywood, HYBRID [email or web address] GRAPHIC DESIGNER [address] [place] [address] Art Department Head Internal Medicine 07/15/24 Licensed Aircraft Maintenance Engineer Relationship Specialty Start Date End Date Louis Dobbs MD [address] [place] [address] PCP - General 12/27/06 Lee Carrizales MD [address] [place] [address] Specialty Analytics Intern Teaching Supervisor 08/19/13 Malik Reis MD [address] [place] [address] Consulting Cardiology 10/22/13 Judy Haywood [email or web address] GRAPHIC DESIGNER [address] [facility] [place] [address] Art Department Head Internal Medicine 07/15/24 Team Status: Active Member Role Status Dates Dr. Louis Dobbs MD Primary Care Provider Active Start: June 25, 2024 Kyleigh Sam GRAPHICS MANAGER, GRAPHICS MANAGER-C Attending Provider Active Start: June 25, 2024 Team Status: Inactive Member Role Status Dates Dr. Louis Dobbs MD Primary Care Provider Active Start: June 28, 2024 End: June 28, 2024 Contreras Maxwell GRAPHICS MANAGER, GRAPHICS MANAGER-C Attending Provider Active S tart: June 28, 2024 End: June 28, 2024 Contreras Maxwell GRAPHICS MANAGER, GRAPHICS MANAGER-C Referring Provider Active S tart: June 28, 2024 End: June 28, 2024 Team Status: Inactive Member Role Status Dates Dr. Louis Dobbs MD Primary Care Provider Active Start: August 14, 2024 End: August 14, 2024 Dr. Jonnathan Gama MD Attending Provider Active S tart: August 14, 2024 End: August 14, 2024 Team Status: Inactive Member Role Status Dates Dr. Louis Dobbs MD Primary Care Provider Active Start: August 14, 2024 End: August 14, 2024 Dr. Shavon Valentin MD Attending Provider Active Start: August 14, 2024 End: August 14, 2024 Dr. Shavon Valentin MD Referring Provider Active Start: August 14, 2024 End: August 14, 2024 Team Status: Inactive Member Role Status Dates Dr. Louis Dobbs MD Primary Care Provider Active Start: October 11, 2024 End: October 11, 2024 Dr. Louis Dobbs MD Referring Provider Active Start: October 11, 2024 End: October 11, 2024 Lucio Basurto PA, PA Attending Provider Active Start: October 11, 2024 End: October 11, 2024 Team Status: Inactive Member Role Status Dates Dr. Louis Dobbs MD Primary Care Provider Active Start: October 11, 2024 End: October 11, 2024 GONZÁLEZ Rojas Attending Provider Active Start: October 11, 2024 End: October 11, 2024 GONZÁLEZ Rojas Referring Provider Active Start: October 11, 2024 End: October 11, 2024 Licensed Aircraft Maintenance Engineer Relationship Specialty Start Date End Date Louis Dobbs MD [address] [facility] [place] [address] PCP - General 12/27/06 Lee Carrizales MD [address] [place] [address] Specialty Analytics Intern Teaching Supervisor 08/19/13 Malik Reis MD [address] [place] [address] Consulting Cardiology 10/22/13 Judy Haywood, HYBRID TESTER.CONTRACT GRAPHIC DESIGNER [address] [place] [address] Art Department Head Internal Medicine 07/15/24 Licensed Aircraft Maintenance Engineer Relationship Specialty Start Date End Date Louis Dobbs MD [address] [place] [address] PCP - General 12/27/06 Lee Carrizales MD [address] [place] [address] Specialty Analytics Intern Teaching Supervisor 08/19/13 Malik Reis MD [address] [place] [address] Consulting Cardiology 10/22/13 Judy Haywood, HYBRID TESTER.CONTRACT GRAPHIC DESIGNER [address] [place] [address] Art Department Head Internal Medicine 07/15/24 Licensed Aircraft Maintenance Engineer Relationship Specialty Start Date End Date Louis Dobbs MD [address] [place] [address] PCP - General 12/27/06 Lee Carrizales MD [address] [place] [address] Specialty Analytics Intern Teaching Supervisor 08/19/13 Malik Reis MD [address] [place] [address] Consulting Cardiology 10/22/13 Judy Haywood, HYBRID TESTER.CONTRACT GRAPHIC DESIGNER [address] [place] [address] Art Department Head Internal Medicine 07/15/24 Licensed Aircraft Maintenance Engineer Relationship Specialty Start Date End Date Louis Dobbs MD [address] [place] [address] PCP - General 12/27/06 Lee Carrizales MD [address] [place] [address] Specialty Analytics Intern Teaching Supervisor 08/19/13 Malik Reis MD [address] [place] [address] Consulting Cardiology 10/22/13 Judy Haywood, HYBRID TESTER.CONTRACT GRAPHIC DESIGNER [address] [place] [address] Art Department Head Internal Medicine 07/15/24 Licensed Aircraft Maintenance Engineer Relationship Specialty Start Date End Date Louis Dobbs MD [address] [place] [id number] PCP - General 12/27/06 Lee Carrizales MD [address] [place] [address] Specialty Analytics Intern Teaching Supervisor 08/19/13 Malik Reis MD [address] [place] [address] Consulting Cardiology 10/22/13 Judy Haywood, HYBRID TESTER.[facility] [address] [place] [address] [facility] Internal Medicine 07/15/24 Team Status: Active Member Role Status Dates Dr. Louis Dobbs MD Primary Care Provider Active Team Status: Inactive Member Role Status Dates Dr. Louis Dobbs MD Primary Care Provider Active Start: November 13, 2024 End: November 13, 2024 Dr. Jonnathan Gama MD Attending Provider Active S tart: November 13, 2024 End: November 13, 2024 Team Status: Inactive Member Role Status Dates Dr. Louis Dobbs MD Primary Care Provider Active Start: January 13, 2025 End: January 13, 2025 Dr. Hermila Blue DO Emergency Provider Active Start: January 13, 2025 End: January 13, 2025 Licensed Aircraft Maintenance Engineer Relationship Specialty Start Date End Date Louis Dobbs MD [address] [place], [place] [address] PCP - General 12/27/06 Lee Carrizales MD [address] [place] [address] Specialty Analytics Intern Teaching Supervisor 08/19/13 Malik Reis MD [address] [place] [address] Consulting Cardiology 10/22/13 Judy Haywood, HYBRID TESTER.CONTRACT GRAPHIC DESIGNER [address] [place] [address] Art Department Head Internal Medicine 07/15/24 Licensed Aircraft Maintenance Engineer Relationship Specialty Start Date End Date Louis Dobbs MD [address] [place] [address] PCP - General 12/27/06 Lee Carrizales MD [address] [place] [address] Specialty Analytics Intern Teaching Supervisor 08/19/13 Malik Reis MD [address] [place] [address] Consulting Cardiology 10/22/13 Judy Haywood, HYBRID TESTER.CONTRACT GRAPHIC DESIGNER [address] [place] [address] Art Department Head Internal Medicine 07/15/24 Licensed Aircraft Maintenance Engineer Relationship Specialty Start Date End Date Louis Dobbs MD [address] [place] [address] PCP - General 12/27/06 Lee Carrizales MD [address] [place] [address] Specialty Analytics Intern Teaching Supervisor 08/19/13 Malik Reis MD [address] [place] [address] Consulting Cardiology 10/22/13 Judy Haywood, HYBRID TESTER.CONTRACT GRAPHIC DESIGNER [address] [place] [address] Art Department Head Internal Medicine 07/15/24 Licensed Aircraft Maintenance Engineer Relationship Specialty Start Date End Date Louis Dobbs MD [address] [place] [address] PCP - General 12/27/06 Lee Carrizales MD [address] [place] [address] Specialty Analytics Intern Teaching Supervisor 08/19/13 Malik Reis MD [address] [place] [address] Consulting Cardiology 10/22/13 Judy Haywood, HYBRID TESTER.CONTRACT GRAPHIC DESIGNER [address] [place] [address] Art Department Head Internal Medicine 07/15/24 Licensed Aircraft Maintenance Engineer Relationship Specialty Start Date End Date Louis Dobbs MD [address] [place] [address] PCP - General 12/27/06 Lee Carrizales MD [address] [place] [address] Specialty Analytics Intern Teaching Supervisor 08/19/13 Malik Reis MD [address] [place], [place] [address] Consulting Cardiology 10/22/13 Judy Haywood, HYBRID TESTER.CONTRACT GRAPHIC DESIGNER [address] [facility] [place], [place] [address] Art Department Head Internal Medicine 07/15/24 Licensed Aircraft Maintenance Engineer Relationship Specialty Start Date End Date Louis Dobbs MD [address] [facility] [place] [address] PCP - General 12/27/06 Lee Carrizales MD [address] [place] [address] Specialty Analytics Intern Teaching Supervisor 08/19/13 Malik Reis MD [address] [place], [place] [address] Consulting Cardiology 10/22/13 Judy Haywood, HYBRID TESTER.CONTRACT GRAPHIC DESIGNER [address] [place] [address] [facility] Internal Medicine 07/15/24 Team Status: Active Member Role/Relationship Status Dates Dr. Louis Dobbs MD Primary Care Provider Active Team Status: Inactive Member Role/Relationship Status Dates Dr. Louis Dobbs MD Primary Care Provider Active Start: November 13, 2024 End: November 13, 2024 Dr. Jonnathan Gama MD Attending Provider Active S tart: November 13, 2024 End: November 13, 2024 Team Status: Inactive Member Role/Relationship Status Dates Dr. Louis Dobbs MD Primary Care Provider Active Start: January 13, 2025 End: January 13, 2025 Dr. Hermila Blue DO Attending Provider Active Start: January 13, 2025 End: January 13, 2025 Dr. Hermila Blue DO Emergency Provider Active Start: January 13, 2025 End: January 13, 2025 Team Status: Inactive Member Role/Relationship Status Dates Dr. Louis Dobbs MD Primary Care Provider Active Start: February 13, 2025 End: February 13, 2025 Dr. Louis Dobbs MD Referring Provider Active Start: February 13, 2025 End: February 13, 2025 Bernie Wallace Attending Provider Active Start: 2024 End: February 13, 2025 Team Status: Active Member Role/Relationship Status Dates Dr. Louis Dobbs MD Primary Care Provider Active Start: February 13, 2025 Lucio Basurto PA, PA Attending Provider Active Start: February 13, 2025 Lucio Basurto PA, PA Referring Provider Active Start: February 13, 2025 Team Status: Inactive Member Role/Relationship Status Dates Dr. Louis Dobbs MD Primary Care Provider Active Start: February 12, 2025 End: February 12, 2025 Dr. Jonnathan Gama MD Attending Provider Active S tart: February 12, 2025 End: February 12, 2025 Team Status: Inactive Member Role/Relationship Status Dates Dr. Louis Dobbs MD Primary Care Provider Active Start: February 13, 2025 End: February 13, 2025 Dr. Jonnathan Gama MD Attending Provider Active S tart: February 13, 2025 End: February 13, 2025 Team Status: Inactive Member Role/Relationship Status Dates Dr. Louis Dobbs MD Primary Care Provider Active Start: February 13, 2025 End: February 13, 2025 Dr. Louis Dobbs MD Referring Provider Active Start: February 13, 2025 End: February 13, 2025 Bernie Wallace Attending Provider Active Start: 2024 End: February 13, 2025 Team Status: Active Member Role/Relationship Status Dates Dr. Louis Dobbs MD Primary Care Provider Active Start: February 13, 2025 Lucio Basurto PA, PA Attending Provider Active Start: February 13, 2025 Lucio Basurto PA, PA Referring Provider Active Start: February 13, 2025 Team Status: Inactive Member Role/Relationship Status Dates Dr. Louis Dobbs MD Primary Care Provider Active Start: February 13, 2025 End: February 13, 2025 GONZÁLEZ Rojas Attending Provider Active Start: February 13, 2025 End: February 13, 2025 GONZÁLEZ Rojas Referring Provider Active Start: February 13, 2025 End: February 13, 2025 Team Status: Inactive Member Role/Relationship Status Dates Dr. Louis Dobbs MD Primary Care Provider Active Start: February 13, 2025 End: February 13, 2025 Dr. Louis Dobbs MD Referring Provider Active Start: February 13, 2025 End: February 13, 2025 Dr. Jonnathan Gama MD Attending Provider Active S tart: February 13, 2025 End: February 13, 2025 Team Status: Inactive Member Role/Relationship Status Dates Dr. Louis Dobbs MD Primary Care Provider Active Start: February 27, 2025 End: February 27, 2025 Dr. Louis Dobbs MD Attending Provider Active Start: February 27, 2025 End: February 27, 2025 Dr. Louis Dobbs MD Referring Provider Active Start: February 27, 2025 End: February 27, 2025 Licensed Aircraft Maintenance Engineer Relationship Specialty Start Date End Date Louis Dobbs MD [address] [place] [address] PCP - General 12/27/06 Lee Carrizales MD [address] [place] [address] Specialty Analytics Intern Teaching Supervisor 08/19/13 Malik Reis MD [address] [place] [address] Consulting Cardiology 10/22/13 Judy Haywood, HYBRID TESTER.CONTRACT GRAPHIC DESIGNER [address] [place], [place] [address] [facility] Internal Medicine 07/15/24 Licensed Aircraft Maintenance Engineer Relationship Specialty Start Date End Date Louis Dobbs MD [address] [place] [address] PCP - General 12/27/06 Lee Carrizales MD [address] [place] [address] Specialty Analytics Intern Teaching Supervisor 08/19/13 Malik Reis MD [address] [place] [address] Consulting Cardiology 10/22/13 Judy Haywood, HYBRID TESTER.CONTRACT GRAPHIC DESIGNER [address] [place] [address] [facility] Internal Medicine 07/15/24 Licensed Aircraft Maintenance Engineer Relationship Specialty Start Date End Date Louis Dobbs MD [address] [place] [address] PCP - General 12/27/06 Lee Carrizales MD [address] [place] [address] Specialty Analytics Intern Teaching Supervisor 08/19/13 Malik Reis MD [address] [place] [address] Consulting Cardiology 10/22/13 Judy Haywood, HYBRID TESTER.CONTRACT GRAPHIC DESIGNER [address] [place] [address] Art Department Head Internal Medicine 07/15/24 Goals (unrecognized section and content) Goals may be documented in a n alternate sectionGoals may be documented in an alternate sectionGoals may be documented in an alternate sectionGoals may be documented in an alternate sectionGoals may be documented in an alternate sectionGoals may be documented in an alternate sectionGoals may be documented in an alternate sectionGoals may be documented in an alternate sectionGoals may be documented in an alternate sectionGoals may be documented in an alternate sectionGoals may be documented in an alternate sectionGoals may be documented in an alternate sectionGoals may be documented in an alternate sectionGoals may be documented in an alternate sectionGoals may be documented in an alternate sectionGoals may be documented in an alternate sectionGoals may be documented in an alternate sectionGoals may be documented in an alternate sectionGoals may be documented in an alternate sectionGoals may be documented in an alternate sectionGoals may be documented in an alternate sectionGoals may be documented in an alternate section FOR RECORDS PERTAINING TO PATIENTS WHO ARE OR HAVE BEEN ENROLLED IN A CHEMICAL DEPENDENCY/SUBSTANCEABUSE PROGRAM, SOME INFORMATION MAY BE OMITTED. This clinical summary was aggregated from multiple sources. Caution should be exercised in using it in the provision of clinical care. This summary normalizes information from multiple sources, and as a consequence, information in this document may materially change the coding, format and clinical context of patient data. In addition, data may be omitted in some cases. CLINICAL DECISIONS SHOULD BE BASED ON THE PRIMARY CLINICAL RECORDS. [facility] [employer] [facility]. provides no warranty or guarantee of the accuracy or completeness of information in this document.
== END 2025-04-12 05:46 | disposition home or self-care (01) ==
LOC: ED 05:38
PROVIDERS: Emergency Provider Emergency Medicine; PCP Internal Medicine; Visit Provider Emergency Medicine
DX: J01.90 Acute sinusitis, unspecified (principal); I69.359 Hemiplegia and hemiparesis following cerebral infarction affecting unspecified side; J44.9 Chronic obstructive pulmonary disease, unspecified; R05.9 Cough, unspecified; I12.9 Hypertensive chronic kidney disease with stage 1 through stage 4 chronic kidney disease, or unspecified chronic kidney disease; B96.89 Other specified bacterial agents as the cause of diseases classified elsewhere; N18.9 Chronic kidney disease, unspecified; Z79.899 Other long term (current) drug therapy; Z79.01 Long term (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 anticoagulants; Z90.49 Acquired absence of other specified parts of digestive tract; Z95.0 Presence of cardiac pacemaker; Z95.3 Presence of xenogenic heart valve; F17.290 Nicotine dependence, other tobacco product, uncomplicated
CPT/HCPCS: 99284

== ENCOUNTER 2025-04-13 12:10 | Emergency (ER) | payer MEDICARE, MEDICAID, SELFPAY ==
[2025-04-13 12:18] VITALS: BP 142/113; PULSE 105; RESP 44; TEMP 36.6; O2SAT 92; BMI 32.8
[2025-04-13 12:26] VITALS: O2SAT 92
[2025-04-13 12:29] VITALS: O2SAT 93
--- NOTE | 2025-04-13 12:29 | EKG12_ITS ---
Test Reason : SOB Blood Pressure : */* mmHG Vent. Rate : 96 BPM Atrial Rate : 96 BPM P-R Int : 182 ms QRS Dur : 164 ms QT Int : 430 ms P-R-T Axes : 1 -81 89 degrees QTcB Int : 543 ms Atrial-sensed ventricular-paced rhythm Abnormal ECG Confirmed by Gee Raman ([id number]), editor city MAYLIN ARGUELLO ([id number]) on 04/14/2025 9:48:46 AM Referred By: Confirmed By: Gee Raman
--- OUTSIDE RECORDS SUMMARY | 2025-04-13 12:29 | XMS RPT_ITS | CCD ---
Author Organization [facility] CliniSyvt Care Team Providers Care Health Technical Writer Name Role Phone Katey Lobo Unavailable Marley Hackett N Unavailable Marley Hackett N Unavailable Louis Dobbs MD Primary Care Provider Lee Carrizales Unavailable Malik Reis (Hist) Unavailable Dr. Louis Dobbs Primary Care Provider Dr. Javed Smith Attending Provider Dr. Javed Smith Referring Provider Dr. Louis Dobbs Referring Provider Sb CLAUDIO, PA Lucio Darling Attending Provider Bernie Wallace Attending Provider Unavailable Dr. Louis Dobbs Primary Care Provider Dr. Louis Dobbs Primary Care Provider Dr. Javed Smith Attending Provider Dr. Javed Smith Referring Provider Dr. Louis Dobbs Referring Provider Sb CLAUDIO PA Lucio Darling Attending Provider Dr. Sonu Richard Emergency Provider [...] Provider Dr. Vu Gross Other Provider Mable PHLEBOTOMIST MEDICAL LAB ASSISTANT, PHLEBOTOMIST MEDICAL LAB ASSISTANT-C Michelle Other Provider Karin, Dr. Gloria Carreno Attending Provider Karin, Dr. Gloria Carreno Other Provider Barbara, Dr. Melvin Attending Provider [phone] Friend, Dr. Melvin Other Provider Louis Dobbs MD Primary Care Provider Lee Carrizales P Unavailable Malik Reis (Hist) Unavailable Dr. Louis Dobbs Primary Care Provider Danny, Dr. Martinez Attending Provider Unavailable Danny, Dr. Martinez Other Provider Unavailable Karin, Dr. Gloria Carreno [...] Care Provider Malik Reis MD Unavailable Joe IRONER SOCK.VP CLINICAL, Judy M Unavailable Unavailable Primary Care Provider Unavailcassidy e HOMERO, SHAVON Referring Unavailable HOMERO, SHAVON Attending Unavailable HOMERO, SHAVON Referring Unavailable HOMERO, SHAVON Attending Unavailable Dr. Louis Dobbs MD Primary Care Provider Flaco FRANCIS-CKyleigh Attending Provider Contreras Gray Attending Provider Contreras Gray Referring Provider Natan BAZAN, Dr. De Santiago Attending Provider Homero BAZAN, Dr. Sansd Attending Provider Homero BAZAN, Dr. Sands Referring [...] Attending Provider Unavailable Lucio Quintero Attending Provider Lucio Quintero Referring Provider Alan BAZAN, Dr. Myers Attending Provider ALAN, JOVI Primary Care Unavailable ANGEL PICKETT Attending Unavailable SELF Referring Unavailable JUDY HAYWOOD Attending Unavailable ALAN, JOVI Primary Care Unavailable DOBBS, JOVI Primary Care Unavailable ANGEL PICKETT Referring Unavailable DOBBS, JOVI Attending Unavailable DOBBS, JOVI Referring Unavailable DOBBS, JOVI Primary Care Unavailable JOEJUDY QUINTANA Attending Unavailable ALAN, JOVI Primary Care Unavailable JOEJUDY Referring Unavailable DOBBS, JOVI Primary Care Unavailable JOEJUDY Attending Unavailable DOBBS, JOVI Primary Care Unavailable JOEJUDY QUINTANA Referring Unavailable DOBBS, JOVI Primary Care Unavailable JUDY HAYWOOD Referring Unavailable DOBBS, JOVI Primary Care Unavailable Shavon Valentin Referring Unavailable Dobbs, Louis Primary Care Unavailable Homero, Shavon Attending Unavailable Hermila Blue Attending Unavailable Dobbs, Louis Primary Care Unavailable Dobbs, Louis Referring Unavailable Natan, [place] Attending Unavailable Dobbs, Louis Primary Care Unavailable Homero, Shavon Attending Unavailable Homero, Shavon Referring Unavailable Dobbs, Louis Primary Care Unavailable Dobbs, Louis Primary Care Unavailable Sb CLAUDIO, Lucio Darling Referring Unavail able Sb CLAUDIO, Lucio Darling Attending Unavail able Homero, Shavon Referring Unavailable Dobbs, Louis Primary Care Unavailable Homero, Shavon Attending Unavailable Dobbs, Louis Referring Unavailable Dobbs, Louis Attending Unavailable Dobbs, Louis Primary Care Unavailable Dobbs, Louis Primary Care Unavailable Lucio Quintero Referring Unavail able Sb CLAUDIO, Lucio Darling Attending Unavail able Natan, [place] Attending Unavailable Dobbs, Louis Primary Care Unavailable Natan, [place] Attending Unavailable Dobbs, Louis Primary Care Unavailable Flaco PHLEBOTOMIST MEDICAL LAB ASSISTANT, Kyleigh Referring Unavailable Flaco FRANCIS, Kyleigh Attending Unavailable Dobbs, Louis Primary Care Unavailable Alissa PHLEBOTOMIST MEDICAL LAB ASSISTANT, Contreras Ibrahim Attending Unavailable Dobbs, Louis Primary Care Unavailable Alissa PHLEBOTOMIST MEDICAL LAB ASSISTANT, Contreras H Referring Unavailable Dobbs, Louis Referring Unavailable Homero, Shavon Attending Unavailable Dobbs, Louis Primary Care Unavailable Natan, [place] Attending Unavailable Dobbs, Louis Primary Care Unavailable Dobbs, Louis Primary Care Unavailable Natan, Jonnathan Attending Unavailable Homero, Shavon Attending Unavailable Dobbs, Louis Primary Care Unavailable Flaco FRANCIS, Kyleigh Attending Unavailable Dobbs, Louis Primary Care Unavailable Homero, Shavon Attending Unavailable Homero, Shavon Consulting Unavailable Homero, Shavon Referring Unavailable Dobbs, Louis Primary Care Unavailable Natan, Jonnathan Attending Unavailable Dobbs, Louis Primary Care Unavailable Natan, [place] Attending Unavailable Dobbs, Louis Primary Care Unavailable Dobbs, Louis Primary Care Unavailable Dobbs, Louis Referring Unavailable Lucio Quintero Attending Unavail able Alan BAZAN, Dr. Myers Primary Care Provider Dr. Jonnathan Gama MD Attending Provider Dr. Dane Joseph DO Emergency Provider [phone] Allergies Allergy Classification Reported Allergen(s) Allergy Type Date of Onset Reaction(s) Facility Angiotensin Converting Enzyme (LUIZA) Inhibitors (1 source) Lisinopril Drug Allergy 12-20-19 07 [facility] Latex (1 source) Latex Substance Allergy 04-10-20 08 Rash, Swelling [facility] Penicillins (antibiotic) (2 sources) Amoxicillin Drug Allergy 07-19-20 16 [facility] Quinolones (antibiotic) (1 source) Ciprofloxacin Drug Allergy 12-20-19 07 Rash, Itching [facility] (2 sources) Latex rubber gloves drug allergy [facility] Work Phone: (2 sources) penicillin v drug allergy [facility] Work Phone: (20 sources) Amoxicillin; Translations: [AMOXICILLIN] Drug Allergy 10-24-19 19 [facility] (20 sources) Ciprofloxacin; Translations: [CIPROFLOXACIN] Drug Allergy 12-20-19 07 Rash, Itching [facility] Work Phone: (20 sources) Latex; Translations: [LATEX] Propensity to adverse reactions 04-10-20 08 Rash, Swelling [facility] Work Phone: (20 sources) Lisinopril; Translations: [LISINOPRIL] Drug Allergy 12-20-19 07 Unknown [facility] Work Phone: (20 sources) Penicillins; Translations: [PENICILLINS] Drug Allergy 07-19-20 16 [facility] Work Phone: (20 sources) Venom-Honey Bee; Translations: [VENOM-HONEY BEE] Drug Allergy 10-24-19 19 Swelling [facility] (20 sources) Penicillins Drug Allergy 07-19-20 16 [facility] Work Phone: (18 sources) Penicillins Allergy to substance 05-30-20 [facility] (1 source) Latex Propensity to adverse reactions to drug 04-10-20 08 Rash, Swelling [facility] (1 source) Lisinopril Propensity to adverse reactions to drug 12-20-19 07 [facility] (1 source) Penicillins Propensity to adverse reactions to drug 07-19-20 16 Hives [facility] (15 sources) Penicillins Drug Allergy 07-19-20 16 Hives [facility] Work Phone: (11 sources) gabapentin; Translations: [GABAPENTIN] Drug Allergy 01-08-20 Other: See Comments [facility] Work Phone: (1 source) Amoxicillin Drug Allergy 01-14-20 [facility] (1 source) Ciprofloxacin Drug Allergy 01-14-20 [facility] (1 source) Latex Drug allergy (disorder) 01-14-20 [facility] (1 source) Lisinopril Drug Allergy 01-14-20 [facility] (1 source) Penicillins Drug allergy (disorder) 01-14-20 [facility] (1 source) venom-honey bee Drug allergy (disorder) 01-14-20 [facility] Medications Current Medications Medication Drug Class(es) Dates Sig (Normalized) Sig (Original) acetaminophen 500 mg oral tablet (20 sources) Start: 02-16-2022 take 1 tablet by mouth every six hours as needed for pain Acetaminophen 500 mg Tablet Active 500 mg PO EVERY 6 HOURS as needed for pain/fever February 16, 2022 12:00am Start: 02-16-2022 End: 10-18-2022 take 1 tablet by mouth every eight hours as needed acetaminophen (TYLENOL) 500 mg tablet Take 1 tablet by mouth three times daily as needed for pain. 60 tablet 10/18/2022 Active Comment on above: Take 1 tablet by [facility] three times daily as needed for pain. [...] HOURS NEEDED as needed for Pain 20 February 19, 2017 12:00am December 18, 2017 [...] by mouth once daily Amlodipine 10 mg Tablet Active 10 mg PO DAILY February 16, 2022 12:00am HTN Start: 12-14-2021 take 10 mg by mouth [...] 1 tablet by malathi th once daily. 3.2 ml ARIPiprazole lauroxil 276 mg/ml prefilled syringe (20 sources) Start: 03-03-2021 Aripiprazole Lauroxil (Aristada) 882 mg/3.2 mL suspension,extended rel syring Active 882 MG IM EVERY MONTH March 03, 2021 4:24pm Start: 02-19-2021 ARIPiprazole l auroxil (ARISTADA) 882 mg/3.2 mL injection Inject 3.2 mL intramuscularly every 4 weeks. 0 02/19/2021 Active Comment on above: Inject 3.2 mL intram uscularly every 4 weeks. benzonatate 100 mg oral capsule (1 source) Non-narcotic Antitussive Start: 025 take 1 capsule by mouth twice daily as needed for cough Benzonatate 100 mg capsule Active 100 mg PO TWICE A DAY as needed for cough 14 7 0 April 12, 2025 12:00am calcium ascorbate 500 mg oral tablet (8 sources) Start: 024 take 1 tablet by mouth once daily Ascorbate Calcium (Vitamin C) 500 mg tablet Active 500 mg PO daily June 05, 2024 12:00am cholecalciferol 0.125 mg oral capsule (20 sources) Vitamin D Start: 023 End: 025 take 1 capsule by mouth once daily Cholecalciferol, Vitamin D3, 125 mcg (5,000 unit) cap Take 1 capsule by mouth once daily. 30 capsule 5 03/24/2025 Active Start: 12-14-2021 [facility] Cholecalciferol (Vitamin D3) 125 mcg (5,000 unit) Capsule Active 125 ug PO DAILY December 14, 2021 12:00am supplement Start: 07-27-2021 End: 05-12-2023 take 1 capsule by mouth once daily Cholecalciferol, Vitamin D3, 125 mcg (5,000 unit) cap Take 1 capsule by mouth once daily. 30 capsule 0 04/17/2023 05/12/2023 Discontinued Comment on above: [facility]. doxycycline hyclate 100 mg oral capsule (20 sources) Tetracycline-clas s Drug Start: 04-12-2025 take 1 capsule by mouth twice daily Doxycycline Hyclate 100 mg capsule Active 100 mg PO TWICE A DAY 14 7 0 April 12, 2025 12:00am Start: 10-23-2018 End: 02-14-2019 take 1 capsule by mouth twice daily Doxycycline Monohydrate 100 MG capsule Discontinued 100 mg PO TWICE A DAY 14 October 23, 2018 12:00am February 14, 2019 11:12am furosemide 40 mg oral tablet (20 sources) Loop Diuretic Start: 06-05-2024 take 1 tablet by mouth once daily Furosemide (Lasix) 40 mg tablet Active 40 mg PO daily 90 June 05, 2024 12:00am hydrOXYzine pamoate 50 mg oral capsule (20 sources) Antihistamine Start: 05-30-2022 take 1 capsule by mouth twice daily [...] take 1 tablet by mouth once daily Pantoprazole 20 mg tablet,delayed release (DR/EC) Active 20 mg PO daily June 05, 2024 12:00am Start: 10-24-2022 End: 05-12-2023 take 1 tablet [...] chloride 20 meq extended release oral tablet (16 sources) Start: 06-14-2024 take 1 tablet by [...] 99 mg by mouth once daily. Active Completed/Discontinued Medications Medication Drug Class(es) Dates Sig [...] 14, 2016 12:00am August 14, 2016 9:30am [id number] 200 actuat albuterol 0.09 mg/actuat metered dose [...] sources) Tricyclic Antidepressant Start: 01-08-20 End: 02-05-20 take 1 tablet by mouth once daily at bedtime amitriptyline (ELAVIL) 10 mg tablet Take 1 tablet by mouth daily at bedtime. 30 tablet 1 01/07/2025 02/04/2025 Discontinued (Side Effects) apixaban 5 mg oral tablet (20 sources) Factor Xa Inhibitor Start: 11-15-19 End: 08-29-19 take 1 tablet by mouth twice daily Apixaban (Eliquis) 5 mg tablet Discontinued 5 mg PO TWICE A DAY 60 September 28, 2023 2:18pm August 29, 2024 12:37pm Comment on above: Take 5 mg by mouth. ARIPiprazole 2 mg oral tablet (20 sources) Atypical Antipsychotic Start: 10-25-19 End: 06-17-20 take 1 tablet by mouth once ARIPiprazole [...] 02-23-2017 ABILIFY 5 MG T ABS ARIPIPRAZOLE [id number] Katey Lobo Start: 06-18-2016 End: 12-18-2017 take 5 [...] mouth two times a day. 60 tablet 09/03/2024 03/24/2025 Discontinued (Clinical Decision) Comment on [...] Take 1 tablet by malathi once daily. azithromycin 250 mg oral tablet (11 sources) Macrolide Antimicrobial Start: 06-25-20 End: 07-24-20 take 1 tablet by mouth once daily Azithromycin 250 mg tablet Discontinued 250 mg PO DAILY 4 June 25, 2023 1:00am July 24, 2023 2:46pm benztropine mesylate 0.5 mg oral tablet (20 sources) Anticholinergic, Antihistamine Start: 04-06-20 End: 10-15-19 take 1 tablet by mouth once daily Benztropine 0.5 mg tablet Discontinued 0.5 mg PO DAILY 30 April 06, 2022 12:00am October 14, 2022 [...] tablet (20 sources) [id number] Platelet Inhibitor Start: End: take 1 tablet by mouth once daily Clopidogrel (Plavix) 75 mg tablet Discontinued 75 mg PO DAILY November 27, 2020 12:00am February 23, 2022 2:11pm BLOOD THINNER Comment on above: Take 1 tablet by malathi once daily. clotrimazole 10 mg/ml topical cream (20 sources) Azole Antifungal Start: 9 End: 9 Clotrimazole 12 GM cream Discontinued 24 g TP THREE TIMES A DAY 1 October 23, 2018 12:00am February 14, 2019 11:12am Start: 10-23-2018 End: 02-14-2019 Clotrimazole Discontinued 24 GM TP THREE TIMES A DAY 1 October 22, 2018 11:00pm February 14, 2019 10:12am docusate sodium 100 mg oral capsule (20 sources) Start: 10-02-2021 End: 06-05-2024 take 1 capsule by mouth twice daily Docusate Sodium 100 mg Capsule Discontinued 100 mg PO TWICE A DAY December 14, 2021 12:00am June 05, 2024 9:00am CONSTPATION Comment on above: Take 1 capsule by mo [facility] twice daily. For constipation. estrogens, conjugated (shelter) 0.625 mg/ml vaginal cream (20 sources) Estrogen [...] Start: 10-14-2022 take 1 tablet by malathi twice daily Ferrous Sulfate 325 mg (65 mg iron) tablet Active 325 mg PO TWICE A DAY October 14, 2022 1:00am Comment on above: Take 1 tablet by malathi twice daily with meals. Take 1 tablet by malathi two times a day with meals. gabapentin [...] Comment on above: Take 1 tablet by [facility] twice daily as needed (anxiety) for up to 90 days. mecobalamin (15 sources) Start: 10-14-2022 End: 06-05-2024 Mecobalamin (Vitamin [...] 1:00am metoprolol tartrate 50 mg oral tablet (8 sources) beta-Adrenergic Lokesh Start: 06-25-2024 End: 10-11-2024 [...] Cholinergic Nicotinic Agonist Start: 10-10-19 End: 11-09-19 apply 21 mg transdermal route once daily Nicotine 21 MG patch Discontinued 21 mg TD DAILY October 09, 2020 1:00am November 07, 2020 12:00am November 08, 2020 12:03am Nirmatrelvir-Ritona vir (18 sources) Start: 02-17-20 End: 10-15-19 23 Nirmatrelvir-Ritonav [...] October 14, 2022 10:04am Start: 02-16-2022 End: 10-14-2022 take 3 tablets [...] Start: 02-16-2022 take 3 tablets by mo uth twice daily Nirmatrelvir-Ritonavir (Paxlovid (Eua)) 150-100 mg [...] 0.4 mg, Sublingual, ONCE, 1 dose, On [facility] 09/26/24 at 1200, Maximum of three consecutive [...] Comment on above: Take 1 tablet by [facility] twice daily. potassium gluconate 2.35 meq oral tablet (16 sources) Start: 06-06-2024 End: 06-14-2024 take 1 [...] 2024 10:03am predniSONE 20 mg oral tablet (9 sources) Start: 07-25-2023 End: 06-05-2024 take 2 tablets by mouth once daily Prednisone 20 mg Tablet Discontinued 40 mg PO DAILY@0800 8 4 0 July 25, 2023 1:00am June 05, 2024 9:01am Start: 07-25-2023 take 40 mg by mouth once daily Prednisone Active 40 MG PO DAILY@0800 8 4 July 25, 2023 12:00am rosuvastatin calcium 5 mg oral tablet (20 sources) HMG-CoA Reductase Inhibitor Start: 02-19-2019 End: 03-24-2025 take 1 tablet by mouth once daily Rosuvastatin 5 mg tablet Discontinued 5 mg PO DAILY 90 3 February 28, 2020 3:59pm December 14, 2021 4:48pm Comment on above: Take 1 tablet by [facility] once daily. 20 ml sodium chloride 9 mg/ml injection [...] Start: 08-29-2019 take 1 capsule by mo [facility] once daily Valbenazine (Ingrezza) 40 mg capsule Active 40 MG PO DAILY August 29, 2019 2:20pm Comment on above: Take 1 capsule by mo [facility] once daily. Take 1 capsule by mo [facility] once daily. [facility] divalproex sodium [...] on above: Take 1 capsule by mo [facility] twice daily. [facility] vancomycin 250 mg oral capsule (19 sources) Glycopeptide Antibacterial Start: 02-24-20 End: 10-15-19 take 2 capsules by mouth every six hours Vancomycin 250 mg Capsule Discontinued 500 mg PO EVERY 6 HOURS 16 February 23, 2022 12:00am October 14, 2022 [...] Comment on above: Take 1 tablet by [facility] once daily. warfarin sodium 5 mg oral [...] tablet Disco ntinued 2.5 mg PO .COMPLEX 30 October 19, 2021 12:00am December 14, 2021 4:48pm 2.5 mg PO Monday, , and (take a 5 mg tablet all other days of the week; or as directed); Please contact the information source for Protocol details. Start: 02-22-2021 End: 12-08-2022 Warfarin 5 mg tablet Discont inued 5 mg PO SUMOTUTHSA 90 3 November 02, 2022 2:56pm November 14, 2022 3:54pm Please contact the information source for Protocol details. Start: 09-14-2020 End: 10-19-2021 Warfarin 5 mg tablet Discont inued 0 mg PO .COMPLEX 06 07September 29, 2021 2:01pm October 19, 2021 3:05pm blood thinner [...] SODIU M 5 MG TABS WARFARIN SODIUM [id number] Katey Reyestupita Start: 02-19-2017 End: 08-29-2019 Warfarin 5 MG [...] as directed Take 1 tablet by malathi daily as directed. Monday, , Monday, zinc [...] (HCC)] Onset: 06-10-2021 Coagulation and hemorrhagic disorders (11 sources) Acquired coagulation disorder; Translations: [Coagulation defect, unspecified] 06-25-2023 Chronic Conduction disorders (20 sources) Complete atrioventricular block; Translations: [Atrioventricular block, complete] Onset: 09-21-2020 Chronic Comment on above: Implanted 07/28/2009 then RV lead extraction and Generator Change on 07/04/2011, 09/21/2020 Deficiency and other anemia (20 sources) Anemia; Translations: [Anemia, unspecified] Onset: 12-01-2008 Resolved: 05-11-2017 03-03-2022 Episodic Delirium, dementia, and amnestic and other cognitive disorders (20 sources) Dementia; Translations: [Unspecified dementia without behavioral disturbance] Onset: 06-17-2024 Chronic Disorders of lipid metabolism (20 sources) Hyperlipidemia; Translations: [Hyperlipidemia, unspecified] Onset: 10-24-2022 Chronic E Codes: Fall (7 sources) Fall; Translations: [Unspecified fall, initial encounter] [...] unspecified] Onset: 09-26-2024 09-26-2024 Episodic Other aftercare (20 sources) Long-term current use of anticoagulant; Translations: [group home (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 anticoagulants] Onset: 11-23-2008 03-05-2021 Episodic Other aftercare (2 sources) group home (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 anticoagulants; Translations: [group home (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 anticoagulants] Onset: 09-26-2024 Episodic [...] subacute dyskinesia] Onset: 08-18-2015 06-07-2022 Episodic Other hereditary and degenerative nervous system [...] injuries and conditions due to external causes (7 sources) Closed injury of head; Translations: [Unspecified [...] Translations: [Wheezing] Episodic Other lower respiratory disease (10 sources) Dyspnea on exertion; Translations: [Other forms of dyspnea] 07-24-2023 Episodic Other lower respiratory disease (10 sources) Hypoxia; Translations: [Hypoxemia] 07-24-2023 Episodic Other [...] Onset: 02-04-2025 Chronic Other nervous system disorders (20 sources) Abnormal gait; Translations: [Unsteadiness on feet] Onset: 01-07-2021 01-07-2021 Episodic Other nervous system disorders (5 sources) Unspecified [...] Episodic Other nutritional; endocrine; and metabolic disorders (8 sources) Weight increased; Translations: [Abnormal weight gain] 07-22-2021 Episodic Other screening for suspected conditions (not mental disorders or infectious disease) (20 sources) INR raised; Translations: [Abnormal coagulation profile] Onset: 06-13-2022 Episodic Other upper respiratory disease (20 sources) Bleeding from nose; Translations: [Epistaxis] Onset: 11-06-2020 Resolved: 06-14-2021 12-18-2021 Episodic Other upper respiratory disease (5 sources) Epistaxis; Translations: [Epistaxis] Episodic Other upper respiratory infections (1 source) Acute bacterial sinusitis; Translations: [Acute sinusitis, unspecified] 04-12-2025 Episodic Otitis media and related conditions (11 sources) Acute left otitis media; Translations: [Otitis [...] neoplasm of breast] Episodic Residual codes; unclassified (10 sources) Tobacco use and exposure - finding; Translations: [Tobacco use] 07-24-2023 Episodic Residual codes; unclassified (2 sources) Tobacco use; Translations: [Tobacco use disorder] 07-24-2023 Episodic Residual codes; unclassified (6 sources) Edema of foot; Translations: [Localized edema] 12-09-2024 Episodic Residual codes; unclassified (2 sources) Other specified health status; Translations: [Impaired mobility and ADLs] Onset: 02-04-2025 Episodic Schizophrenia and other psychotic disorders (20 sources) Schizophrenia; Translations: [Schizophrenia, unspecified] Onset: 10-01-2014 Resolved: 05-30-2016 06-19-2022 Chronic Screening and history of mental health and substance abuse codes (20 sources) H/O: manic depressive disorder; Translations: [Personal history of other mental and behavioral disorders] 11-18-2021 Episodic Septicemia (except in labor) (20 sources) Sepsis; Translations: [Sepsis, unspecified organism] Episodic Skin and subcutaneous tissue infections (20 sources) Cellulitis of foot; Translations: [Cellulitis of right lower limb] 10-24-2018 Episodic Substance-related disorders (20 sources) Tobacco user; Translations: [Nicotine dependence, unspecified, uncomplicated] Onset: 12-19-2006 Resolved: 06-17-2024 11-06-2020 Chronic Superficial injury; contusion (20 sources) Contusion; Translations: [...] 07-25-2013 08-02-2021 Episodic Deficiency and other anemia (2 sources) Anemia, unspecified; Translations: [Anemia, unspecified] Onset: 06-17-2024 Episodic Menstrual disorders (20 sources) Menorrhagia; Translations: [Excessive and frequent menstruation with regular cycle] Onset: 08-14-2013 Resolved: 08-18-2015 08-18-2015 Chronic Nutritional deficiencies (20 sources) Undernutrition; Translations: [Mild protein-calorie malnutrition] Onset: 10-19-2020 Resolved: 06-10-2021 06-10-2021 Chronic Other and ill-defined cerebrovascular disease (20 sources) [...] Onset: 06-16-2016 Resolved: 12-08-2016 12-08-2016 Episodic Other injuries and conditions due to [...] 07-08-2024 07-24-2023 Episodic Other nervous system disorders (1 source) Unsteadiness on feet; Translations: [Unsteady gait] Onset: 01-07-2021 Episodic Other non-traumatic joint disorders (2 sources) Knee pain; Translations: [Pain in right knee] Onset: 02-23-2017 02-23-2017 Episodic Residual codes; unclassified (1 source) Localized edema; Translations: [Pedal edema] Onset: 12-16-2024 Episodic Spondylosis; intervertebral disc disorders; other back problems (20 sources) Backache; Translations: [Dorsalgia, unspecified] Onset: 10-21-2008 Resolved: 06-29-2009 06-29-2009 Episodic Sprains and strains (2 sources) Sprain of unspecified site of right knee, initial encounter; Translations: [Sprain of unspecified site of right knee, initial encounter] Onset: 02-23-2017 02-23-2017 Episodic Unclassified (20 sources) SUMMARY Onset: 07-01-2011 Resolved: 05-08-2012 08-02-2021 Results Test Name Value Interpretation Reference Range Facility KATHERINE SCREENING W [facility] 04-03 KATHERINE SCREENING W [facility]HISHEK * * *Final Report* * * DATE OF EXAM: Apr 03 2025 2:45PM W 0582 - KATHERINE SCREENING W ABHISHEK / PROCEDURE REASON: Encounter for screening mammogram for malignant neoplasm of breast * * * * Physician Interpretation * * * * RESULT: [place] [address] #[id number] - [facility] SCREENING W ABHISHEK HISTORY: 59 year-old patient [...] Jamal Miller M.D. Electronically signed on: 04/04/2025 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: KAILA Transcribe Date/Time: Apr 03 2025 11:56A Dictated by: JAMAL MILLER MD This examination was interpreted and the report reviewed and electronically signed by: AZUCENA NGUYEN MD on Apr 04 2025 1:32PM EST [id number] [facility] CNOVon 03-24-2025 CNOV Office Visit (INTMWS ) -------- WILBERT GARCÍAELE Elmer ([id number]) 1965 F Date Time Provider Department 03/24/25 12:40 PM LOUIS DOBBS INTMWS During your visit today, we recorded the following information about you: Pulse Respiration Blood pressure Weight 80/minute 16/minute 110/70 84.3 kg Louis Dobbs MD 03/24/2025 1:59 PM Signed Subjective Froilan García is a 59 year old female. Patient presents with: F/U 3 Month Patient was seen by our PHLEBOTOMIST MEDICAL LAB ASSISTANT 02/04/25 for gait abnormality. She was trying [...] time. ACTIVE PROBLEM LIST Depressive Disorder Hypertension Intermediate Current Use of Anticoagulant Therapy Mitral Regurgitation Heart Valve Replaced Paroxysmal Atrial Fibrillation ([facility]) Tardive Dyskinesia Asthma With Chronic Obstructive Pulmonary Disease (Copd) ([facility]) Dysphasia As Late Effect of Cerebrovascular Accident (Cva) Ckd (Chronic Kidney Disease) Stage 3, Gfr 30-59 Ml/Min ([facility]) Obesity, Class I, Bmi 30-34.9 Urge Incontinence Brain Aneurysm ([facility]) Hemiparesis Due to Old Cerebrovascular Accident ([facility]) Unsteady Gait Hypertensive Kidney Disease With Stage 3 Chronic Kidney Disease ([facility]) Anxiety Gastroesophageal Reflux Disease Without Esophagitis Hyperlipidemia Dementia ([facility]) Bilateral Lower Extremity Pain Social History [...] - Continue (more content not included)... [facility] OT Functional Capacity Jairo arenas 02-27-2025 OT Functional Capacity chelle [facility] Occupational Therapy [facility] [address] [place] [address] / REHABILITATION SERVICES INITIAL EVALUATION MR#: [id number] Acct: [id number] Name: FROILAN GARCÍA Rep #: [id number] : 1965 59 From: Nena Arellano Referring Dr.: Dr. 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 Normal [facility] Anion gap in Serum or Plasma Ordered By: Contreras Maxwell on 02-13-2025 Anion gap [Moles/Vol] 11 mmol/L 12-19 [facility] BUN/creatinine ratioOrdered By: Contreras Maxwell on 02-13-2025 Urea nitrogen/Creatinine [Mass ratio] 12.3 mg/mg 05-26 [facility] Basic Metabolic Profile (BMP )on 02-13-2025 BUN/CRE 12.3 RATIO Normal 05-26 [facility] Comment on above: Performed By: #### L 500.2500 #### [facility] Laboratory [address] [place], [address] Calcium [Mass/Vol] 9.8 mg/dL Normal 7.6-11.0 [facility] Comment on above: Performed By: #### L 500.2500 #### [facility] Laboratory [address] [place] [place], [address] Chloride [Moles/Vol] 101 mmol/L Normal 98-108 [facility] Comment on above: Performed By: #### L 500.2500 #### [facility] Laboratory [address] [place], [address] CO2 [Moles/Vol] 26.8 mmol/L Normal 21.0-32.0 [facility] Comment on above: Performed By: #### L 500.2500 #### [facility] Laboratory [address] [place], [address] Creatinine [Mass/Vol] 1.12 mg/dL Normal 0.70-1.20 [facility] Comment on above: Performed By: #### L 500.2500 #### [facility] Laboratory [address] [place], [address] GAP 11 Normal 5-15 [facility] Comment on above: Performed By: #### L 500.2500 #### [facility] [address] [place], [address] GFR/1.73 sq M.predicted among non-blacks MDRD (S/P/Bld) [Vol rate/Area] 57 mL/min/{1.73_m2} Low >60 [facility] Comment on above: Result Comment: mL/m in/1.73m2 CKD-EPI Creatinine Equation (2020) Performed By: #### L 500.2500 #### [facility] [address] [place], [address] Glucose [Mass/Vol] 93 mg/dL Normal 70-99 [facility] Comment on above: Performed By: #### L 500.2500 #### [facility] [address] [place], [address] Potassium [Moles/Vol] 4.3 mmol/L Normal 3.3-5.1 [facility] Comment on above: Performed By: #### L 500.2500 #### [facility] [address] [place], [address] Sodium [Moles/Vol] 139 mmol/L Normal 133-145 [facility] Comment on above: Performed By: #### L 500.2500 #### [facility] [address] [place], [address] Urea nitrogen [Mass/Vol] 14 mg/dL Normal 4-19 [facility] Comment on above: Performed By: #### L 500.2500 #### [facility] Laboratory [address] [place], [address] Carbon dioxide, total [Moles /volume] in Central venous bloodOrdered By: Contreras Maxwell on 02-13-2025 CO2 [Moles/Vol] 26.8 mmol/L 21.0-32.0 [facility] Chloride assayOrdered By: Trice Maxwell on 02-13-2025 Chloride [Moles/Vol] 101 mmol/L 98-108 [facility] Glomerular filtration rate ( GFR) estimation/1.73 sq m using serum, plasma, or whole bOrdered By: Contreras Maxwell on 02-13-2025 GFR/1.73 sq M.predicted among non-blacks MDRD (S/P/Bld) [Vol rate/Area] 57 mL/min/{1.73_m2} Low >60 [facility] Comment on above: mL/min/1.73m2 CKD-EP I Creatinine Equation (2020) Pacemaker Checkon 02-13-2025 Pacemaker Check [facility] [address] [place] [address] Pacemaker Check Date of Service: 02/13/25 1353 MR#: [id number] Acct: [id number] Name: FROILAN GARCÍA Rep #: [id number] : 1965 From: Bernie Wallace Age/Sex: 59/F Location: [facility] Status: Signed Billing Codes PM Device Codes: 09840 PM Dev Prog Eval, Dual Assessment and Plan Assessment and Plan (1) Sick sinus syndrome: Status: Chronic (2) Presence of cardiac pacemaker: Status: Chronic Comment: Implanted 07/28/2009 then RV lead extraction and Generator Change on 07/04/2011, 09/21/2020 02/13/25 1356 Date Bernie Dobbs Signature: Date (if applicable) CC: Normal [facility] Potassium measurement (mass/ volume)Ordered By: Contreras Maxwell on 02-13-2025 Potassium (Unsp spec) [Mass/Vol] 4.3 mmol/L 3.3-5.1 [facility] Serum creatinine measurement (mass/volume)Ordered By: Contreras Maxwell on 02-13-2025 Creatinine [Mass/Vol] 1.12 mg/dL 0.70-1.20 [facility] Serum glucose measurement (m ass/volume)Ordered By: Contreras Maxwell on 02-13-2025 Glucose [Mass/Vol] 93 mg/dL 70-99 [facility] Serum or plasma calcium juli urement (mass/volume)Ordered By: Contreras Maxwell on 02-13-2025 Calcium [Mass/Vol] 9.8 mg/dL 7.6-11.0 [facility] Serum or plasma urea nitroge n measurement (mass/volume)Ordered By: Contrersa Maxwell on 02-13-2025 Urea nitrogen [Mass/Vol] 14 mg/dL 4-19 [facility] Sodium levelOrdered By: Contreras Maxwell on 02-13-2025 Sodium [Moles/Vol] 139 mmol/L 133-145 [facility] CNPNon 02-11-2025 SHAILESH Telephone (INTMWS) -------- FROILAN GARCÍA ([id number]) 1965 F Date Time Provider Department 02/11/25 JUDY HAYWOOD During your visit today, we recorded the following information about you: Judy Haywood APRN.CNP 02/11/2025 8:13 AM Signed Patient scheduled with me today at 1 pm for mobility exam for scooter. I just saw her for this last week, the forms can be completed from that encounter. 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 Please call patient when scheduled ANIL Babin Kim E, LPN 02/11/2025 11:05 AM Signed Order has been placed and filed and faxed to [facility] to schedule locally for functional capacity testing. [facility] to call patient with appt. ANIL Babin Kandi 03/10/2025 8:51 AM Signed Per patient she did the FCE, functional capacity at [facility] in [place] and we were to have had this [...] AM Signed Pt given update that her [facility] paperwork has been completed by provider. Please fax to [facility] at FAX #: [phone]. PRAVIN Lopez Elizabeth, MA 03/10/2025 11:00 AM [...] Date Reviewed: 02/04/2025 Reviewed by: Judy Haywood, IRONER SOCK.VP CLINICAL - Fully Assessed Reason for Visit: Functional Capacity Eval [3549] Cmt: hoverround stated that she needs a functional capacity test Primary Visit Diagnosis:Abnormality of gait as late effect of stroke [I69.398, R26.9] Other Visit Diagnoses:Hemiparesis due to old cerebrovascular accident (HCC) [I69.359] Brain aneurysm (HCC) [I67.1] Impaired mobility and ADLs [Z74.09, Z78.9] Frequent falls [R29.6] Encounter for risk and functional assessment [Z13.9] Order(s):CONSULT TO PHYSICAL THERAPY [5286] Order #: [id number]: 1 FUTURE Prescriptions as of 03/10/2025 - [...] ill-defined, cerebrovascular disease*11/07/2008 05/11/2017 Hypertension [I10] 11/23/2008 group home current use of anticoagulant therapy *11/23/2008 Mitral [...] [K63.89] 06/07 (more content not included)... [facility] CNOVon 02-04-2025 CNOV Office Visit (INTMWS ) -------- FROILAN GARCÍA ([id number]) 1965 F Date Time Provider Department 02/04/25 1:00 PM JUDY HAYWOOD INTMWS During your visit today, we recorded the following information about you: Pulse Respiration Blood pressure Weight 92/minute 14/minute 110/68 85.9 kg Height 1.626 m Judy Haywood, IRONER SOCK.[facility] 02/11/2025 10:55 AM Addendum CC: Patient presents with: Neuropathy: Bilateral foot pain, and strokes discuss getting scooter HPI Recording using oLyfe software for draft documentation of the visit was discussed with the patient/authorized sales development representative; all questions welcomed and answered. Patient/authorized sales development representative agreed to proceed Froilan Elmer García is a 59-year-old female with a [...] Anemia 2013 Asthma with COPD with exacerbation ([facility]) Bipolar disorder ([facility]) 2000 Cerebral aneurysm (HCC) 10/11/2020 Chronic diarrhea 07/12/2016 Chronic rheumatic endocarditis 11/07/2008 Treated for Infective endocarditis Congestive heart failure (HCC) COVID-19 02/2022 CVA (cerebral vascular accident) ([facility]) 10/11/2020 Depressive disorder, not elsewhere classified 12/19/2006 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ident (CVA) 05/11/2017 Essential hypertension 11/23/2008 Gastroesophageal reflux disease without esophagitis Generalized anxiety disorder Anxiety, Generalized Heart valve 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 Presumed nfective endocarditis, treated with IV antibiotics, complicated by a stroke. Underwent MVR (#27 [employer] Velasco bioprosthesis) with Dr Stephan Morales at [facility] on 07/23/2009. Moderate dysplasia of cervix Other and unspecified mitral valve diseases 11/27/2008 Rheumatic valvular heart disease. Pacemaker malfunction 07/01/2011 Paroxysmal atrial fibrillation ([facility]) 10/31/2013 Primary hypertension Psychosis ([facility]) 10/01/2014 Dr. Jonathon Kulkarni, the [facility]. Trilafon at . Sick sinus syndrome ([facility]) 2008 PPM Sigmoid diverticulitis 08/11/2016 colon narrowing, [...] gastritis, mu (more content not included)... [facility] CNPNon 02-04-2025 CNPN Telephone (INTMWS) -------- FROILAN GARCÍA ([id number]) 1965 F Date Time Provider Department 02/04/25 JUDY HAYWOOD INTMWS During your visit today, we recorded the following information about you: Kristy Blanco RN 02/04/2025 3:19 PM Signed Patient calls to let provider know that her orders for power operated vehicle needs to be sent to [facility]. She has checked with insurance and the chair would be covered through them. Patient requests orders be faxed with a note saying their billing needs to go through [facility] Medicaid. Faxed with request to [phone]. Confirmation that fax when through received. PH: [phone]. Nothing further needed at this time. 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 Louis Dobbs MD Status: PRE ER Study: Brain/Head without Contrast Date of Exam: 05/01 Exam# [id number] Ordering Dr: Hermila Blue DO PROCEDURE: BRAIN/HEAD [...] aneurysmal clipping in the region of the kojipu-nu-Giljnx as well as the basilar tip. This causes beam hardening artifact. Old bilateral cortical infarcts. CSF Spaces: Moderate generalized cerebral atrophy Sinuses/Mastoids: Unremarkable Bones: Unremarkable CT/Brain/Head without Contrast IMPRESSION: CHRONIC CHANGES. NO ACUTE FINDINGS. Prior aneurysmal clipping in the region of the swqqoz-io-Bhnblk as well as the basilar tip. Reading Location: [place] [address] CC: Dr. Hermila Blue DO; Dr. 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 [facility] Medical History Tricuspid insufficiency Tobacco use group home current use of anticoagulant Tardive dyskinesia Brain aneurysm CKD (chronic kidney disease) Mitral regurgitation Depressive disorder Unsteady gait Hemiparesis due to old cerebrovascular accident Acute UTI Anemia Bipolar disorder COPD (chronic obstructive pulmonary disease) AAA (abdominal aortic aneurysm) group home (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 anticoagulants Schizophrenia Anxiety Former [...] other Det (more content not included)... Normal [facility] Spine Cervical without Contr ason 01-13-2025 Spine Cervical without Contras [facility] Imaging Services [address] [place] [address] Spine Cervical without Contras MR#: [id number] Acct: [id number] Name: FROILAN GARCÍA Rep #: [id number] : 1965 F 59 From: Cinda Lilly nd, MD PCP: Dr. Louis Dobbs MD Status: PRE ER Study: Spine Cervical without Contras Date of Exam: 0 01/13/25 Exam# [id number] Ordering Dr: Hermila Blue DO PROCEDURE: SPINE [...] ACUTE CERVICAL FRACTURE. DEGENERATIVE CHANGES. Reading Location: [facility] CC: Dr. Hermila Blue DO; Dr. 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 Patient reports that she does not like how it made her feel. PRAVIN Russell Naz M, APRN.DANNY 01/07/2025 10:00 AM Signed Noted. Does she want to try something else for the nerve pain? We had discussed a medication called Pierrel (amitriptyline) previously. Judy Haywood APRN.Frances Tenorio MA 01/07/2025 10:26 AM Signed Patient was notified and willing to try amitriptyline. 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 [facility] CNOVon 12-16-2024 CNOV Office Visit (INTMWS ) -------- FROILAN GARCÍA ([id number]) 1965 F Date Time Provider Department 12/16/24 1:00 PM ANGEL PICKETT During your visit today, we recorded the following information about you: Pulse Respiration Blood pressure Weight 74/minute 16/minute 106/72 90.9 kg Angel Pickett APRN.FOOD SERVICE LEAD 12/16/2024 2:03 PM Signed Subjective Patient ID: [...] leg swelling, endorse elevating feet when seated. Cvpm-bbf-jsmpxny compression socks may be considered if swelling returns. Wear when sitting or standing for prolonged periods. Angel Pickett APRN.FOOD SERVICE LEAD Medical Decision Making: Problems: Low: Stable chronic illness Data: Unique test result(s) reviewed: 2 Risk: Moderate: Drug management Medical Decision Making Level: 3 - Low Angel Pickett APRN.FOOD SERVICE LEAD 12/16/2024 1:35 PM Signed Take gabapentin at [...] Date Reviewed: 12/16/2024 Reviewed by: Angel Pickett APRN.FOOD SERVICE LEAD - Fully Assessed Reason for Visit: F/U [...] powder A (more content not included)... [facility] CBC panel Auto (Bld)on 12-09 Erythrocyte distribution width (RBC) [Ratio] 13.3 % 11.5 - 15.0 % [facility] Hematocrit (Bld) [Volume fraction] 43.2 % 36.0 - 46.0 % [facility] Hemoglobin (Bld) [Mass/Vol] 14 g/dL 11.5 - 15.5 g/dL [facility] Interpretation and review of laboratory results Normal [facility] MCH (RBC) [Entitic mass] 30.5 pg 26.0 - 34.0 pg [facility] MCHC (RBC) [Mass/Vol] 32.4 g/dL 30.5 - 36.0 g/dL [facility] MCV (RBC) [Entitic vol] 94.1 fL 80.0 - 100.0 fL [facility] Nucleated RBC (Bld) [#/Vol] NINF [facility] Platelet mean volume (Bld) [Entitic vol] 10.3 fL 9.0 - 12.7 fL [facility] Platelets (Bld) [#/Vol] 187 10*3/uL [facility] RBC (Bld) [#/Vol] 4.59 10*6/uL 3.90 - 5.2 0 m/uL [facility] WBC (Bld) [#/Vol] 7.72 10*3/uL [facility] Erythrocyte distribution width (RBC) [Ratio] 13.3 % Normal 11.5-15.0 [facility] Comment on above: Order Comment: Speci men Type: BLOOD SPECIMENOrdering Facility: [facility] Address: [address] [place] [address] Performed By: #### 5 8410-2 ####[facility] LABIA [id number] [address] [place] Hematocrit (Bld) [Volume fraction] 43.2 % Normal 36.0-46.0 [facility] Comment on above: Order Comment: Speci men Type: BLOOD SPECIMENOrdering Facility: [facility] Address: [address] [place] [address] Performed By: #### 5 8410-2 ####[facility] LABIA [id number] [place] [address] [place] Hemoglobin (Bld) [Mass/Vol] 14.0 g/dL Normal 11.5-15.5 [facility] Comment on above: Order Comment: Speci men Type: BLOOD SPECIMENOrdering Facility: [facility] Address: [address] [place] [address] Performed By: #### 5 8410-2 ####[facility] LABIA [id number] [place] [address] [place] MCH (RBC) [Entitic mass] 30.5 pg Normal 26.0-34.0 [facility] Comment on above: Order Comment: Speci men Type: BLOOD SPECIMENOrdering Facility: [facility] Address: [address] [place] [address] Performed By: #### 5 8410-2 ####[facility] LABIA [id number] [place] [address] [place] MCHC (RBC) [Mass/Vol] 32.4 g/dL Normal 30.5-36.[address] [facility] Comment on above: Order Comment: Speci men Type: BLOOD SPECIMENOrdering Facility: [facility] Address: [address] [place] [address] Performed By: #### 5 8410-2 ####[facility] LABIA [id number] [place] [address] [place] MCV (RBC) [Entitic vol] 94.1 fL Normal 80.0-100.0 [facility] Comment on above: Order Comment: Speci men Type: BLOOD SPECIMENOrdering Facility: [facility] Address: [address] [place] [address] Performed By: #### 5 8410-2 ####[facility] LABIA [id number] [place] [address] [place] Nucleated RBC (Bld) [#/Vol] 10*3/uL Normal <0.01 [facility] Comment on above: Order Comment: Speci men Type: BLOOD SPECIMENOrdering Facility: [facility] Address: [address] [place] [address] Performed By: #### 5 8410-2 ####[facility] LABIA [id number] [place] [address] [place] Platelet mean volume (Bld) [Entitic vol] 10.3 fL Normal 9.0-12.7 [facility] Comment on above: Order Comment: Speci men Type: BLOOD SPECIMENOrdering Facility: [facility] Address: [address] [place] [address] Performed By: #### 5 8410-2 ####[facility] LABIA [id number] [place] [address] [place] Platelets (Bld) [#/Vol] 187 10*3/uL Normal 150-400 [facility] Comment on above: Order Comment: Speci men Type: BLOOD SPECIMENOrdering Facility: [facility] Address: [address] [place] [address] Performed By: #### 5 8410-2 ####[facility] [id number] [place] [address] [place] RBC (Bld) [#/Vol] 4.59 10*6/uL Normal 3.90-5.20 [facility] Comment on above: Order Comment: Speci men Type: BLOOD SPECIMENOrdering Facility: [facility] Address: [address] [place] [address] Performed By: #### 5 8410-2 ####[facility] [id number] [place] [address] [place] WBC (Bld) [#/Vol] 7.72 10*3/uL Normal 3.70-11.00 [facility] Comment on above: Order Comment: Speci men Type: BLOOD SPECIMENOrdering Facility: [facility] Address: [address] [place] [address] Performed By: #### 5 8410-2 ####[facility] [id number] [place] [id number] [place] CNOVon 12-09-2024 CNOV Office Visit (INTMWS ) -------- FROILAN GARCÍA ([id number]) 1965 F Date Time Provider Department 12/09/24 2:40 PM JUDY HAYWOOD INTMWS During your visit today, we recorded the following information about you: Pulse Respiration Blood pressure Weight 90/minute 14/minute 124/86 92.5 kg Judy Haywood APRN.VP CLINICAL 12/09/2024 2:57 PM Signed We discussed your [...] swelling. Your prescriptions have been sent to [facility]. If you have any questions or concerns, please contact our office. Judy Haywood APRN.CNP 12/09/2024 3:05 PM Signed CC: Patient presents with: Edema: Bilateral feet/ tingling/pricking sensation x 3 days HPI Recording using oLyfe software for draft documentation of the visit was discussed with the patient/authorized sales development representative; all questions welcomed and answered. Patient/authorized sales development representative agreed to proceed Froilan is a 59-year-old female with a history of CVA, aneurysms, [facility], presenting with acute onset of bilateral foot and ankle pain and swelling. Froilan reports the onset of sharp, stabbing pain and swelling in both feet and upper ankles beginning on Monday, following increased physical activity. She has been walking approximately 1 mile daily around her apartment complex since Monday and walked extensively at [facility] on Monday. The pain became severe during the last 30 minutes at [facility], causing her to cry and requiring assistance [...] Anemia 2013 Asthma with COPD with exacerbation ([facility]) Bipolar disorder ([facility]) 2000 Cerebral aneurysm (HCC) 10/11/2020 Chronic diarrhea 07/12/2016 Chronic rheumatic endocarditis 11/07/2008 Treated for Infective endocarditis Congestive heart failure (HCC) COVID-19 02/2022 CVA (cerebral vascular accident) (HCC) 10/11/2020 Depressive disorder, not elsewhere classified 12/19/2006 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ident (CVA) 05/11/2017 Essential hypertension 11/23/2008 Gastroesophageal reflux disease without esophagitis Generalized anxiety disorder (more content not included)... [facility] CNPN Telephone (INTMWS) -------- RAQUELFROILAN KATZ ([id number]) 1965 F Date Time Provider Department 12/09/24 JUDY HAYWOOD INTMWS During your visit today, we recorded the following information about you: Maylin Poon, RN 12/09/2024 10:13 AM Signed Pt called in [...] of Lasix. Pt scheduled with Judy Haywood PHLEBOTOMIST MEDICAL LAB ASSISTANT today at 240 pm. Allergies As of Date: 12/09/2024 Noted Allergy Reaction LISINOPRIL 12/19/2006 Comments: blood in urine,renal failure AMOXICILLIN 10/23/2018 4 - Hives CIPRO (CIPROFLOXACIN) 12/19/2006 2 - Rash 9 - Itching LATEX 04/10/2008 2 - Rash 7 - Swelling PENICILLINS 07/19/2016 4 - Hives VENOM-HONEY BEE 10/23/2018 7 - Swelling Date Reviewed: 06/17/2024 Reviewed by: Jduy Haywood, IRONER SOCK.VP CLINICAL - Fully Assessed Reason for Visit: Patient [...] ill-defined, cerebrovascular disease*11/07/2008 05/11/2017 Hypertension [I10] 11/23/2008 group home current use of anticoagulant therapy *11/23/2008 Mitral [...] Status:Closed by MAYLIN POON on 12/09/24 Normal [facility] metabolic 2000 panelon 12-09-2024 Albumin [Mass/Vol] 4.3 g/dL 3.9 - 4.9 g/dL [facility] ALP [Catalytic activity/Vol] 79 U/L 34 - 123 U/L [facility] ALT [Catalytic activity/Vol] 10 U/L 7 - 38 U/L [facility] Anion gap [Moles/Vol] 15 mmol/L 8 - 15 mmol/L [facility] AST [Catalytic activity/Vol] 23 U/L 13 - 35 U/L [facility] Bilirubin [Mass/Vol] 0.9 mg/dL 0.2 - 1 .3 mg/dL [facility] Calcium [Mass/Vol] 9.3 mg/dL 8.5 - 10. 2 mg/dL [facility] Chloride [Moles/Vol] 103 mmol/L 98 - 10 7 mmol/L [facility] CO2 [Moles/Vol] 23 mmol/L 22 - 30 mmol/L [facility] Creatinine [Mass/Vol] 0.95 mg/dL 0.58 - 0.96 mg/dL [facility] GFR/1.73 sq M.predicted among non-blacks MDRD (S/P/Bld) [Vol rate/Area] 70 mL/min/{1.73_m2} - PINF [facility] Comment on above: Estimated Glomerular Filtration Rate [...] [Mass/Vol] 79 mg/dL 74 - 99 mg/dL [facility] Comment on above: The [place] Diabete s Association (ADA) provides guidance for [...] Standards of Medical Care in Diabetes 2016, [place] Diabetes Association. Diabetes Care. 2016.39(Suppl 1). Interpretation and review of laboratory results Abnormal [facility] Potassium [Moles/Vol] 3.5 mmol/L Low 3.7 - 5.1 mmol/L [facility] Protein [Mass/Vol] 7.2 g/dL 6.3 - 8.0 g/dL [facility] Sodium [Moles/Vol] 141 mmol/L 136 - 144 mmol/L [facility] Urea nitrogen [Mass/Vol] 19 mg/dL 7 - 21 mg/dL [facility] Albumin [Mass/Vol] 4.3 g/dL Normal 3.9-4.9 [facility] Comment on above: Order Comment: Yadira quigley Type: BLOOD SPECIMENOrdering Facility: [facility] Address: [address] [place] [address] Performed By: #### 2 4323-8 ####[facility] LABIA [id number] [place] [address] [place] ALP [Catalytic activity/Vol] 79 U/L Normal 34-123 [facility] Comment on above: Order Comment: Yadira quigley Type: BLOOD SPECIMENOrdering Facility: [facility] Address: [address] [place] [address] Performed By: #### 2 4323-8 ####[facility] LABCLIA [id number] [place] [address] [place] ALT [Catalytic activity/Vol] 10 U/L Normal 7-38 [facility] Comment on above: Order Comment: Yadira quigley Type: BLOOD SPECIMENOrdering Facility: [facility] Address: [address] [place] [address] Performed By: #### 2 4323-8 ####[facility] LABIA [id number] [place] [address] [place] Anion gap [Moles/Vol] 15 mmol/L Normal 8-[address] [facility] Comment on above: Order Comment: Speci men Type: BLOOD SPECIMENOrdering Facility: [facility] Address: [address] [place], [place] [address] Performed By: #### 2 4323-8 ####[facility] LABCLIA [id number] [address] [address] [place] AST [Catalytic activity/Vol] 23 U/L Normal 13-35 [facility] Comment on above: Order Comment: Speci men Type: BLOOD SPECIMENOrdering Facility: [facility] Address: [address] [place] [address] Performed By: #### 2 4323-8 ####[facility] LABCLIA [id number] [place] [id number] [place] Bilirubin [Mass/Vol] 0.9 mg/dL Normal 0.2-1.3 [facility] Comment on above: Order Comment: Speci men Type: BLOOD SPECIMENOrdering Facility: [facility] Address: [address] [place] [address] Performed By: #### 2 4323-8 ####[facility] LABIA [id number] [place] [address] [place] Calcium [Mass/Vol] 9.3 mg/dL Normal 8.5-10.2 [facility] Comment on above: Order Comment: Speci men Type: BLOOD SPECIMENOrdering Facility: [facility] Address: [address] [place], [place] [address] Performed By: #### 2 4323-8 ####[facility] LABCLIA [id number] [place] [address] [place] Chloride [Moles/Vol] 103 mmol/L Normal 98-107 [facility] Comment on above: Order Comment: Speci men Type: BLOOD SPECIMENOrdering Facility: [facility] Address: [address] [place], [place] [address] Performed By: #### 2 4323-8 ####[facility] LABCLIA [id number] [address] [address] [place] CO2 [Moles/Vol] 23 mmol/L Normal 22-30 [facility] Comment on above: Order Comment: Speci men Type: BLOOD SPECIMENOrdering Facility: [facility] Address: [address] [place] [address] Performed By: #### 2 4323-8 ####[facility] LABIA [id number] [place] [address] [place] Creatinine [Mass/Vol] 0.95 mg/dL Normal 0.58-0.[address] [facility] Comment on above: Order Comment: Speci men Type: BLOOD SPECIMENOrdering Facility: [facility] Address: [address] [place] [address] Performed By: #### 2 4323-8 ####[facility] [id number] [place] [address] [place] Creatinine and Glomerular filtration rate.predicted panel (S/P/Bld) 70 mL/min/1.73m??? Normal >=60 [facility] Comment on above: Order Comment: Speci men Type: BLOOD SPECIMENOrdering Facility: [facility] Address: [address] [place] [address] Result Comment: Neelam mated Glomerular Filtration Rate [...] actual GFR. Performed By: #### 2 4323-8 ####[facility] LABCLIA [id number] [address] [address] [place] Glucose [Mass/Vol] 79 mg/dL Normal 74-99 [facility] Comment on above: Order Comment: Speci men Type: BLOOD SPECIMENOrdering Facility: [facility] Address: [address] [place] [address] Result Comment: The [place] Diabetes Association (ADA) provides guidance for cutoff [...] Standards of Medical Care in Diabetes 2016, [place] Diabetes Association. Diabetes Care. 2016.39(Suppl 1). Performed By: #### 2 4323-8 ####[facility] LABCLIA [id number] [place] [address] [place] Potassium [Moles/Vol] 3.5 mmol/L Low 3.7-5.[address] [facility] Comment on above: Order Comment: Speci men Type: BLOOD SPECIMENOrdering Facility: [facility] Address: [address] [place] [address] Performed By: #### 2 4323-8 ####[facility] LABCLIA [id number] [address] [address] [place] Protein [Mass/Vol] 7.2 g/dL Normal 6.3-8.0 [facility] Comment on above: Order Comment: Speci men Type: BLOOD SPECIMENOrdering Facility: [facility] Address: [address] [place] [address] Performed By: #### 2 4323-8 ####[facility] LABCLIA [id number] [address] [address] [place] Sodium [Moles/Vol] 141 mmol/L Normal 136-144 [facility] Comment on above: Order Comment: Speci men Type: BLOOD SPECIMENOrdering Facility: [facility] Address: [address] [place] [id number] Performed By: #### 2 4323-8 ####[facility] LABCLIA [id number] [place] [address] [place] Urea nitrogen [Mass/Vol] 19 mg/dL Normal 7-21 [facility] Comment on above: Order Comment: Speci men Type: BLOOD SPECIMENOrdering Facility: [facility] Address: [address] [place] [address] Performed By: #### 2 4323-8 ####[facility] LABCLIA [id number] [place] [address] [place] US DVT LOWER BILon US DVT LOWER JASON * * *Final Report* * * DATE OF EXAM: Dec 09 2024 4:11PM WRU 1005 - US DVT LOWER JASON / [...] of the left and right lower extremities. 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 Transcribe Date/Time: Dec 09 2024 4:14P Dictated by : GRETCHEN MCINTOSH MD This examination was interpreted and the report reviewed and electronically signed by: GRETCHEN MCINTOSH MD on Dec 09 2024 4:18PM EST [id number] Normal [facility] US Lower extremity vein - bi lateralon 12-09-2024 IMPRESSION: Negative study for proximal DVT in the left and right lower extremities. No gross calf DVT in the left and right lower extremities in their limited visualized segments. Negative study for superficial thrombophlebitis in the imaged segments of the left and right lower extremities. 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 Transcribe Date/Time: Dec 09 2024 4:14P Dictated by : GRETCHEN MCINTOSH MD This examination was interpreted and the report reviewed and electronically signed by: GRETCHEN MCINTOSH MD on Dec 09 2024 4:18PM EST DIVISION OF RADIOLOGY * * *Final Report* * * DATE OF EXAM: Dec 09 2024 4:11PM U 1005 - US DVT LOWER JASON / [...] not otherwise assessed. DIVISION OF RADIOLOGY Provider, [facility] - 12/09/2024 * * *Final Report* * * DATE OF EXAM: Dec 09 2024 4:11PM WRU 1005 - US DVT LOWER JASON / [...] of the left and right lower extremities. 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 Transcribe Date/Time: Dec 09 2024 4:14P Dictated by : GRETCHEN MCINTOSH MD This examination was interpreted and the report reviewed and electronically signed by: GRETCHEN MCINTOSH MD on Dec 09 2024 4:18PM EST [facility] Radiology Study observation (narrative) [facility] US Lower extremity vein - bi lateralOrdered By: Ccf Provider on 12-09-2024 [facility] Anion gap in Serum or Plasma Ordered By: Lucio Basurto on 10-11-2024 Anion gap [Moles/Vol] 15 mmol/L 5- [facility] BUN/creatinine ratioOrdered By: Lucio Basurto on 10-11-2024 Urea nitrogen/Creatinine [Mass ratio] 18.3 mg/mg - [facility] Basic Metabolic Profile (BMP )on 10-11-2024 BUN/CRE 18.3 RATIO Normal - [facility] Comment on above: Performed By: #### L 500.2500 #### [facility] [address] [place], [place], [id number] GAP 15 Normal -15 [facility] Comment on above: Performed By: #### L 500.2500 #### [facility] [address] [place], [place], [id number] Carbon dioxide, total [Moles /volume] in Central venous bloodOrdered By: Lucio Basurto on 10-11-2024 CO2 [Moles/Vol] 22.5 mmol/L Normal 21.0-32.0 [facility] Comment on above: Performed By: #### L 500.2500 #### [facility] [address] [place], [place], [address] Cardiology Visit Reporton Cardiology Visit Report [facility] [address] [place], [place] [address] OFFICE VISIT Date of Service: 10/11/24 MR#: [id number] Acct: [id number] Name: FROILAN GARCÍA Rep #: [id number] : 1965 Provider: GONZÁLEZ Forde Age/Sex: 59/F Location: [facility] Status: Signed HPI HPI History of Present [...] stroke at 36 weeks requiring emergent transferred [facility]. She underwent a at that time [...] and has been following up at the [facility]. She has been on Coumadin ever since [...] extraction and generator change out at the [facility] on 07/01/2011. She underwent generator change on [...] lives with her son. She does have StemCells. Intake Vital Signs 06/05/24 07:43 10/11/24 07:41 Height 5 ft 2 in 5 ft 2 in Weight: 209 lb BMI 38.2 BP 127/84 H Blood Pressure Location Lt brachial Position Sitting Respiration 22 H Pulse 97 Pulse Source Monitor Pulse Oximetry (%) 95 Intake Visit Reasons: SEE CLINICAL NOTE Manager Flight Operations Required: No Is patient in pain?: No [...] History (Updated 10/11/24 @ 09:56 by Lucio M Basurto PA, PA) Tricuspid insufficiency Tobacco use group home current use of anticoagulant Tardive dyskinesia Brain aneurysm CKD (chronic kidney disease) Mitral regurgitation Depressive disorder Unsteady gait Hemiparesis due (more content not included)... Normal [facility] Chloride assayOrdered By: Christina Basurto on 10-11-2024 Chloride [Moles/Vol] 103 mmol/L Normal 98-108 [facility] Comment on above: Performed By: #### L 500.2500 #### [facility] [address] [facility] [address] [place], [place], [address] GFR/1.73 sq M.predicted betsy g non-blacks MDRD (S/P/Bld) [Vol rate/Area]Ordered By: Lucio Basurto on 10-11-2024 Estimated GFR (MDRD) Non-Af Amer 57 Low >60 [facility] Comment on above: mL/min/1.73m2 CKD-EP I Creatinine Equation (2020) Glomerular filtration rate ( GFR) estimation/1.73 sq m using serum, plasma, or whole bOrdered By: Lucio Basurto on 10-11-2024 GFR/1.73 sq M.predicted among non-blacks MDRD (S/P/Bld) [Vol rate/Area] 57 mL/min/{1.73_m2} Low >60 [facility] Comment on above: mL/min/1.73m2 CKD-EP I Creatinine Equation (2020) Result Comment: mL/m in/1.73m2 CKD-EPI Creatinine Equation (2020) Performed By: #### L 500.2500 #### [facility] [address] [place], [place], [address] Potassium measurement (mass/ volume)Ordered By: Lucio Basurto on 10-11-2024 Potassium [Moles/Vol] 4.8 mmol/L Normal 3.3-5.1 [facility] Comment on above: Hemolysis present, R esults could be affected. Result Comment: Hemo lysis present, Results??could be affected. ?? Performed By: #### L 500.2500 #### [facility] [address] [place], [address] Potassium (Unsp spec) [Mass/Vol] 4.8 mmol/L 3.3-5.1 [facility] Comment on above: Hemolysis present, R esults could be affected. Serum creatinine measurement (mass/volume)Ordered By: Lucio Basurto on 10-11-2024 Creatinine [Mass/Vol] 1.12 mg/dL Normal 0.70-1.20 [facility] Comment on above: Performed By: #### L 500.2500 #### [facility] [address] [place], [address] Serum glucose measurement (m ass/volume)Ordered By: Lucio Basurto on 10-11-2024 Glucose [Mass/Vol] 91 mg/dL Normal 70-99 [facility] Comment on above: Performed By: #### L 500.2500 #### [facility] [address] [place], [address] Serum or plasma calcium juli urement (mass/volume)Ordered By: Lucio Basurto on 10-11-2024 Calcium [Mass/Vol] 10.0 mg/dL Normal 7.6-11.0 [facility] Comment on above: Performed By: #### L 500.2500 #### [facility] [address] [place], [address] Serum or plasma urea nitroge n measurement (mass/volume)Ordered By: Lucio Basurto on 10-11-2024 Urea nitrogen [Mass/Vol] 21 mg/dL High 4-19 [facility] Comment on above: Performed By: #### L 500.2500 #### [facility] [address] [place], [address] Sodium levelOrdered By: Wilbert Basurto on 10-11-2024 Sodium [Moles/Vol] 141 mmol/L Normal 133-145 [facility] Comment on above: Performed By: #### L 500.2500 #### [facility] [address] [place], [address] CREAT/GFRon 09-27-2024 Creatinine [Mass/Vol] 0.92 mg/dL 0.50 - 1.20 mg/dL [facility] GFR/1.73 sq M.predicted CKD-EPI (S/P/Bld) [Vol rate/Area] 73 - PINF [facility] Comment on above: Reported eGFR is bas ed on the CKD-EPI 2020 equation using creatinine, age, and sex. Interpretation and review of laboratory results Normal [facility] Test performed at address of the patient encounter. [facility] CT ANGIO CARDIAC WITH RAM RY ARTERIESon 09-26-2024 CT ANGIO CARDIAC WITH CORONARY ARTERIES [facility] CT Report Name: LUCIO GARCÍA : 1965 [...] INFO == (more content not included)... Normal [facility] CT Report Name: LUCIO GARCÍA : [...] SCORING: Total coronary artery calcium score 1755. AMGANA percentile based on age, gender, and race [...] included)... CARDIOLOGY Anahy Greene MD - 09/26/2024 [facility] CT Report Name: LUCIO GARCÍA : 1965 [...] SCORING: Total coronary artery calcium score 1755. [place] percentile based on age, gender, and race [...] Ramus '-------+ ----+ (more content not included)... [facility] Radiology Study observation (narrative) [facility] CT ANGIO CARDIAC WITH RAM RY ARTERIESOrdered By: Anahy Greene on 09-26-2024 [facility] Work Phone: Evan 09-17-2024 CNPN Telephone (INTMWS) -------- FROILAN GARCÍA ([id number]) 1965 F Date Time Provider Department 09/17/24 LOUIS DOBBS INTMWS During your visit today, we recorded the following information about you: Melanie Vences, RN 09/17/2024 8:28 AM Signed Patient calls and states that she has been having issues with [facility] and not getting answers. Patient states that her heart keeps getting weaker and weaker. 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 Patient states that she knows the valve is bad, and they are doing anything about it. Patient asking if provider would recommend patient going back to [facility] for Cardiology? Please review and advise, PRAVIN Russell Victor H, MD 09/18/2024 12:42 AM Signed Not sure what her issue is. Schedule appointment to evaluate concerns. Yvette Gray LPN 10/03/2024 1:19 PM Addendum Froilan has follow-up appt with [facility], 2024. Yvette Ochoa LPN, LPN [...] Date Reviewed: 06/17/2024 Reviewed by: Judy Haywood, IRONER SOCK.VP CLINICAL - Fully Assessed Reason for Visit: Patient [...] ill-defined, cerebrovascular disease*11/07/2008 05/11/2017 Hypertension [I10] 11/23/2008 group home current use of anticoagulant therapy *11/23/2008 Mitral [...] Encounter Status (more content not included)... Normal [facility] Absolute neutrophil countOrd ered By: Shavon Valentin on 08-14-2024 Neutrophils (Bld) [#/Vol] 5.3 10*3/uL 2.0-7.7 [facility] BNP (brain natriuretic pepti de measurement)Ordered By: Shavon Valentin on 08-14-2024 Natriuretic peptide B (Bld) [Mass/Vol] 24.7 pg/mL 0-100 [facility] BNP,B-Type NATRIURETIC PEPTI Jose 08-14-2024 Natriuretic peptide B (Bld) [Mass/Vol] 24.7 pg/mL Normal 0-100 [facility] Comment on above: Performed By: #### L 503.6620, L500.2500, L100.0100 #### [facility] [address] [place], [address] Basic Metabolic Profile (BMP )on 08-14-2024 BUN/CRE 20.2 RATIO High 10-20 [facility] Comment on above: Performed By: #### L 503.6620, L500.2500, L100.0100 #### [facility] [address] [place], [address] CA,Total 9.5 mg/dL Normal 8.5-10.1 [facility] Comment on above: Performed By: #### L 503.6620, L500.2500, L100.0100 #### [facility] [address] [place], [address] Chloride [Moles/Vol] 102 mmol/L Normal 98-107 [facility] Comment on above: Performed By: #### L 503.6620, L500.2500, L100.0100 #### [facility] [address] [place], [address] CO2 [Moles/Vol] 25.0 mmol/L Normal 21.0-32.0 [facility] Comment on above: Performed By: #### L 503.6620, L500.2500, L100.0100 #### [facility] [address] [place], [address] Creatinine [Mass/Vol] 1.09 mg/dL High 0.55-1.02 [facility] Comment on above: Result Comment: The validity of the calculated GFR GFRAA in patients over 70 years has not been determined. Clinical correlation is essential. Performed By: #### L 503.6620, L500.2500, L100.0100 #### [facility] [address] [place], [address] EST GFR - AA 67 mL/min Normal >60 [facility] Comment on above: Result Comment: Afri can Bulgarian GFR Calc Performed By: #### L 503.6620, L500.2500, L100.0100 #### [facility] [address] [place], [address] GAP 9 Normal 5-15 [facility] Comment on above: Performed By: #### L 503.6620, L500.2500, L100.0100 #### [facility] [address] [place], [address] GFR/1.73 sq M.predicted among non-blacks MDRD (S/P/Bld) [Vol rate/Area] 55 mL/min/{1.73_m2} Low >60 [facility] Comment on above: Result Comment: Non- GFR Calc Performed By: #### L 503.6620, L500.2500, L100.0100 #### [facility] [address] [place], [address] Glucose [Mass/Vol] 97 mg/dL Normal 74-106 [facility] Comment on above: Performed By: #### L 503.6620, L500.2500, L100.0100 #### [facility] [address] [place], [address] Potassium [Moles/Vol] 3.3 mmol/L Low 3.5-5.1 [facility] Comment on above: Performed By: #### L 503.6620, L500.2500, L100.0100 #### [facility] [address] [place], [address] Sodium [Moles/Vol] 136 mmol/L Normal 136-145 [facility] Comment on above: Performed By: #### L 503.6620, L500.2500, L100.0100 #### [facility] [address] [place], [address] Urea nitrogen [Mass/Vol] 22 mg/dL High 7-18 [facility] Comment on above: Performed By: #### L 503.6620, L500.2500, L100.0100 #### [facility] [address] [place], [address] Basophil percentageOrdered B y: Shavon Valentin on 08-14-2024 Basophils/100 WBC (Bld) 0.9 % 0-1 [facility] Blood urea nitrogen (BUN)/cr eatinine ratioOrdered By: Shavon Valentin on 08-14-2024 Urea nitrogen/Creatinine [Mass ratio] 20.2 mg/mg High 10-20 [facility] CBC W/Diff, Automatedon Absolute Lymph 1.26 X10 3/uL Normal 0.83-4.51 [facility] Comment on above: Performed By: #### L 503.6620, L500.2500, L100.0100 #### [facility] [address] [place], [address] Absolute Neut 5.3 X10 3/uL Normal 2.0-7.7 [facility] Comment on above: Performed By: #### L 503.6620, L500.2500, L100.0100 #### [facility] [address] [place], [address] Basophils/100 WBC (Bld) 0.9 % Normal 0-1 [facility] Comment on above: Performed By: #### L 503.6620, L500.2500, L100.0100 #### [facility] [address] [place], [address] Eosinophils/100 WBC (Bld) 3.1 % Normal 0-5 [facility] Comment on above: Performed By: #### L 503.6620, L500.2500, L100.0100 #### [facility] [address] [place], [address] Erythrocyte distribution width (RBC) [Ratio] 13.4 % Normal 11.6-14.6 [facility] Comment on above: Performed By: #### L 503.6620, L500.2500, L100.0100 #### [facility] [address] [place], [address] Hematocrit (Bld) [Volume fraction] 41.5 % Normal 37-47 [facility] Comment on above: Performed By: #### L 503.6620, L500.2500, L100.0100 #### [facility] [address] [place], [address] Hemoglobin (Bld) [Mass/Vol] 13.4 g/dL Normal 12.0-15.0 [facility] Comment on above: Performed By: #### L 503.6620, L500.2500, L100.0100 #### [facility] [address] [place], [address] IG% 0.300 Normal 0.0-0.9 [facility] Comment on above: Result Comment: IG% - Immature Granulocytes (promyelocytes, myelocytes and metamyelocytes) > 1% indicates that a LEFT SHIFT is Present. Performed By: #### L 503.6620, L500.2500, L100.0100 #### [facility] [address] [place], [address] Lymphocytes/100 WBC (Bld) 16.8 % Low 19-41 [facility] Comment on above: Performed By: #### L 503.6620, L500.2500, L100.0100 #### [facility] [address] [place], [address] MCH (RBC) [Entitic mass] 30.0 pg Normal 27.0-32.0 [facility] Comment on above: Performed By: #### L 503.6620, L500.2500, L100.0100 #### [facility] [address] [place], [address] MCHC (RBC) [Mass/Vol] 32.3 g/dL Normal 32-36 [facility] Comment on above: Performed By: #### L 503.6620, L500.2500, L100.0100 #### [facility] [address] [place], [address] MCV (RBC) [Entitic vol] 92.8 fL Normal 81-99 [facility] Comment on above: Performed By: #### L 503.6620, L500.2500, L100.0100 #### [facility] [address] [place], [address] Monocytes/100 WBC (Bld) 7.9 % Normal 0-10 [facility] Comment on above: Performed By: #### L 503.6620, L500.2500, L100.0100 #### [facility] [address] [place], [address] Neutrophils/100 WBC (Bld) 71.0 % High 47-70 [facility] Comment on above: Performed By: #### L 503.6620, L500.2500, L100.0100 #### [facility] [address] [place], [address] Nucleated RBC (Bld) [#/Vol] 0 10*3/uL Normal 0-5 [facility] Comment on above: Performed By: #### L 503.6620, L500.2500, L100.0100 #### [facility] [address] [place], [address] Platelet mean volume (Bld) [Entitic vol] 10.2 fL Normal 6.2-12.0 [facility] Comment on above: Performed By: #### L 503.6620, L500.2500, L100.0100 #### [facility] [address] [place], [address] Platelets (Bld) [#/Vol] 225 10*3/uL Normal 150-450 [facility] Comment on above: Performed By: #### L 503.6620, L500.2500, L100.0100 #### [facility] [address] [place], [address] RBC (Bld) [#/Vol] 4.47 10*6/uL Normal 4.2-5.4 [facility] Comment on above: Performed By: #### L 503.6620, L500.2500, L100.0100 #### [facility] [address] [place], [address] RDW SD 45.2 fl High 35.1-43.9 [facility] Comment on above: Performed By: #### L 503.6620, L500.2500, L100.0100 #### [facility] [address] [place], [address] WBC (Bld) [#/Vol] 7.5 10*3/uL Normal 4.4-11.0 [facility] Comment on above: Performed By: #### L 503.6620, L500.2500, L100.0100 #### [facility] [address] [place], [address] Carbon dioxide measurementOr dered By: Shavon Valentin on 08-14-2024 CO2 [Moles/Vol] 25.0 mmol/L 21.0-32.0 [facility] Chloride measurementOrdered By: Shavon Valentin on 08-14-2024 Chloride [Moles/Vol] 102 mmol/L 98-107 [facility] Eosinophil percentageOrdered By: Shavon Valentin on 08-14-2024 Eosinophils/100 WBC (Bld) 3.1 % 0-5 [facility] Erythrocyte distribution wid th ratioOrdered By: Shavon Valentin on 08-14-2024 Erythrocyte distribution width (RBC) [Ratio] 13.4 % 11.6-14.6 [facility] Erythrocyte distribution wid th standard deviationOrdered By: Shavon Valentin on 08-14-2024 Erythrocyte distribution width (RBC) [Entitic vol] 45.2 fL High 35.1-43.9 [facility] Estimated glomerular filtrat ion rate (GFR) AmericanOrdered By: Shavon Valentin on 08-14-2024 Estimated GFR (MDRD) Amer 67 mL/min >60 [facility] Comment on above: GFR Calc Glomerular filtration rate ( GFR) estimationOrdered By: Shavon Valentin on 08-14-2024 Estimated GFR (MDRD) Non-Af Amer 55 mL/min Low >60 [facility] Comment on above: Non- GFR Calc Glucose measurementOrdered B y: Shavon Valentin on 08-14-2024 Glucose [Mass/Vol] 97 mg/dL 74-106 [facility] Hematocrit Auto (Bld) [Volum e fraction]Ordered By: Shavon Valentin on 08-14-2024 Hematocrit (Bld) [Volume fraction] 41.5 % 37-47 [facility] Hemoglobin measurementOrdere d By: Shavon Valentin on 08-14-2024 Hemoglobin (Bld) [Mass/Vol] 13.4 g/dL 12.0-15.0 [facility] Immature granulocytes/100 WB C Auto (Bld)Ordered By: Shavon Valentin on 08-14-2024 Immature granulocytes/100 WBC (Bld) 0.300 % 0.0-0.9 [facility] Comment on above: IG% - Immature Granu locytes (promyelocytes, myelocytes and metamyelocytes) > 1% indicates that a LEFT SHIFT is Present. Lymphocytes Auto (Unsp spec) [#/Vol]Ordered By: Shavon Valentin on 08-14-2024 Lymphocytes (Bld) [#/Vol] 1.26 10*3/uL 0.83-4.51 [facility] Lymphocytes/100 WBC Auto (Un sp spec)Ordered By: Shavon Valentin on 08-14-2024 Lymphocytes/100 WBC (Bld) 16.8 % Low 19-41 [facility] MCV (mean corpuscular volume ) determinationOrdered By: Shavon Valentin on 08-14-2024 MCV (RBC) [Entitic vol] 92.8 fL 81-99 [facility] Mean corpuscular hemoglobin (MCH) determinationOrdered By: Shavon Valentin on 08-14-2024 MCH (RBC) [Entitic mass] 30.0 pg 27.0-32.0 [facility] Mean corpuscular hemoglobin concentration (MCHC) determinationOrdered By: Shavon Valentin on 08-14-2024 MCHC (RBC) [Mass/Vol] 32.3 g/dL 32-36 [facility] Mean platelet volume determi nationOrdered By: Shavon Valentin on 08-14-2024 Platelet mean volume (Bld) [Entitic vol] 10.2 fL 6.2-12.0 [facility] Monocyte percentageOrdered B y: Shavon Valentin on 08-14-2024 Monocytes/100 WBC (Bld) 7.9 % 0-10 [facility] Neutrophil percentageOrdered By: Shavon Valentin on 08-14-2024 Neutrophils/100 WBC (Bld) 71.0 % High 47-70 [facility] Nucleated red blood cell per centageOrdered By: Shavon Valentin on 08-14-2024 Nucleated RBC/100 WBC (Bld) [Ratio] 0 % 0-5 [facility] Platelet countOrdered By: Jake Valentin on 08-14-2024 Platelets (Bld) [#/Vol] 225 10*3/uL 150-450 [facility] Potassium measurementOrdered By: Shavon Valentin on 08-14-2024 Potassium [Moles/Vol] 3.3 mmol/L Low 3.5-5.1 [facility] RBC Auto (Bld) [#/Vol]Ordere d By: Shavon Valentin on 08-14-2024 RBC (Bld) [#/Vol] 4.47 10*6/uL 4.2-5.4 [facility] Serum anion gap measurementO rdered By: Shavon Valentin on 08-14-2024 Anion gap [Moles/Vol] 9 mmol/L 5-15 [facility] Serum or plasma calcium juli urement (mass/volume)Ordered By: Shavon Valentin on 08-14-2024 Calcium [Mass/Vol] 9.5 mg/dL 8.5-10.1 [facility] Serum or plasma creatinine m easurement (mass/volume)Ordered By: Shavon Valentin on 08-14-2024 Creatinine [Mass/Vol] 1.09 mg/dL High 0.55-1.02 [facility] Comment on above: The validity of the calculated GFR & GFRAA in patients over 70 years has not been determined. Clinical correlation is essential. Serum or plasma urea nitroge n measurement (mass/volume)Ordered By: Shavon Valentin on 08-14-2024 Urea nitrogen [Mass/Vol] 22 mg/dL High 7-18 [facility] Sodium levelOrdered By: Coy Valentin on 08-14-2024 Sodium [Moles/Vol] 136 mmol/L 136-145 [facility] White blood cell (WBC) count Ordered By: Shavon Valentin on 08-14-2024 WBC (Bld) [#/Vol] 7.5 10*3/uL 4.4-11.0 [facility] Basic Metabolic Profile (BMP )on 06-28-2024 BUN/CRE 19.1 RATIO Normal 10-20 [facility] Comment on above: Performed By: #### L 500.2500 #### [facility] [address] [place], [address] CA,Total 9.4 mg/dL Normal 8.5-10.1 [facility] Comment on above: Performed By: #### L 500.2500 #### [facility] [address] [place], [address] Chloride [Moles/Vol] 104 mmol/L Normal 98-107 [facility] Comment on above: Performed By: #### L 500.2500 #### [facility] [address] [place], [address] CO2 [Moles/Vol] 24.0 mmol/L Normal 21.0-32.0 [facility] Comment on above: Performed By: #### L 500.2500 #### [facility] [address] [place], [address] Creatinine [Mass/Vol] 1.10 mg/dL High 0.55-1.02 [facility] Comment on above: Result Comment: The validity of the calculated GFR GFRAA in patients over 70 years has not been determined. Clinical correlation is essential. Performed By: #### L 500.2500 #### [facility] [address] [place], [address] EST GFR - AA 66 mL/min Normal >60 [facility] Comment on above: Result Comment: Afri can Bulgarian GFR Calc Performed By: #### L 500.2500 #### [facility] [address] [place], [address] GAP 8 Normal 5-15 [facility] Comment on above: Performed By: #### L 500.2500 #### [facility] [address] [place], [address] GFR/1.73 sq M.predicted among non-blacks MDRD (S/P/Bld) [Vol rate/Area] 55 mL/min/{1.73_m2} Low >60 [facility] Comment on above: Result Comment: Non- GFR Calc Performed By: #### L 500.2500 #### [facility] [address] [place], [address] Glucose [Mass/Vol] 94 mg/dL Normal 74-106 [facility] Comment on above: Performed By: #### L 500.2500 #### [facility] [address] [place], [address] Potassium [Moles/Vol] 4.0 mmol/L Normal 3.5-5.1 [facility] Comment on above: Performed By: #### L 500.2500 #### [facility] [address] [place], [address] Sodium [Moles/Vol] 137 mmol/L Normal 136-145 [facility] Comment on above: Performed By: #### L 500.2500 #### [facility] [address] [place], [address] Urea nitrogen [Mass/Vol] 21 mg/dL High 7-18 [facility] Comment on above: Performed By: #### L 500.3747 #### [facility] [address] [place], [address] Blood urea nitrogen (BUN)/cr eatinine ratioOrdered By: Contreras Maxwell on 06-28-2024 Urea nitrogen/Creatinine [Mass ratio] 19.1 mg/mg 10-20 [facility] Carbon dioxide measurementOr dered By: Contreras Maxwell on 06-28-2024 CO2 [Moles/Vol] 24.0 mmol/L 21.0-32.0 [facility] Chloride measurementOrdered By: Contreras Maxwell on 06-28-2024 Chloride [Moles/Vol] 104 mmol/L 98-107 [facility] Estimated glomerular filtrat ion rate (GFR) AmericanOrdered By: Contreras Maxwell on 06-28-2024 Estimated GFR (MDRD) Amer 66 mL/min >60 [facility] Comment on above: GFR Calc Glomerular filtration rate ( GFR) estimationOrdered By: Contreras Maxwell on 06-28-2024 Estimated GFR (MDRD) Non-Af Amer 55 mL/min Low >60 [facility] Comment on above: Non- GFR Calc Glucose measurementOrdered B y: Contreras Maxwell on 06-28-2024 Glucose [Mass/Vol] 94 mg/dL 74-106 [facility] Potassium measurementOrdered By: Contreras Maxwell on 06-28-2024 Potassium [Moles/Vol] 4.0 mmol/L 3.5-5.1 [facility] Serum anion gap measurementO rdered By: Contreras Maxwell on 06-28-2024 Anion gap [Moles/Vol] 8 mmol/L 5-15 [facility] Serum or plasma calcium juli urement (mass/volume)Ordered By: Contreras Maxwell on 06-28-2024 Calcium [Mass/Vol] 9.4 mg/dL 8.5-10.1 [facility] Serum or plasma creatinine m easurement (mass/volume)Ordered By: Contreras Maxwell on 06-28-2024 Creatinine [Mass/Vol] 1.10 mg/dL High 0.55-1.02 [facility] Comment on above: The validity of the calculated GFR & GFRAA in patients over 70 years has not been determined. Clinical correlation is essential. Serum or plasma urea nitroge n measurement (mass/volume)Ordered By: Contreras Maxwell on 06-28-2024 Urea nitrogen [Mass/Vol] 21 mg/dL High 7-18 [facility] Sodium levelOrdered By: Contreras Maxwell on 06-28-2024 Sodium [Moles/Vol] 137 mmol/L 136-145 [facility] Stress Reporton 06-20-2024 Stress Report [facility] [address] [place] [address] MR#: [id number] Acct: [id number] Name: FROILAN GARCÍA Rep #: [id number] : 1965 58 From: Shavon Valentin MD [...] of 61%. This note was generated with [employer] software. It may contain incorrect words, spelling, and punctuation that were not noted in checking the note before signing. 06/20/24 1241 Date Shavon Valentin MD CC: Dr. Shavon Valentin MD; Dr. Louis Dobbs MD Date Dictated: 06/20/24 1239 Date Transcribed: 06/20/24 1239 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: JAKE Signed Normal [facility] Echo Complete W/ Contraston 06-18-2024 Echo Complete W/ Contrast [facility] [address] [place] [address] Echo Complete W/ Contrast 06/18/24 0807 MR#: [id number] Acct: [id number] Name: FROILAN GARCÍA Rep #: [id number] : 1965 58 From: Shavon Valentin MD Attending Dr: Dr. Shavon Valentin MD Status: REG CLI Ordering Dr: Shavon Valentin MD Date: 06/18/24 Location: [facility] Sex: F C Admitted: Reason For Study: [...] MD; Dr. Louis Dobbs MD Date Dictated: 06/18/24806 Date Transcribed: 06/20/241050 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: Signed Normal [facility] CBC panel Auto (Bld)on 06-17 Erythrocyte distribution width (RBC) [Ratio] 13.2 % 11.5 - 15.0 % [facility] Hematocrit (Bld) [Volume fraction] 45.9 % 36.0 - 46.0 % [facility] Hemoglobin (Bld) [Mass/Vol] 14.9 g/dL 11.5 - 15.5 g/dL [facility] Interpretation and review of laboratory results Normal [facility] MCH (RBC) [Entitic mass] 30.4 pg 26.0 - 34.0 pg [facility] MCHC (RBC) [Mass/Vol] 32.5 g/dL 30.5 - 36.0 g/dL [facility] MCV (RBC) [Entitic vol] 93.7 fL 80.0 - 100.0 fL [facility] Nucleated RBC (Bld) [#/Vol] NINF [facility] Platelet mean volume (Bld) [Entitic vol] 10.3 fL 9.0 - 12.7 fL [facility] Platelets (Bld) [#/Vol] 221 10*3/uL [facility] RBC (Bld) [#/Vol] 4.90 10*6/uL 3.90 - 5.2 0 m/uL [facility] WBC (Bld) [#/Vol] 9.28 10*3/uL [facility] Erythrocyte distribution width (RBC) [Ratio] 13.2 % Normal 11.5-15.0 [facility] Comment on above: Order Comment: Speci men Type: BLOOD SPECIMENOrdering Facility: [facility] Address: [address] [place] [address] Performed By: #### 5 8410-2 ####[facility] LABCLIA [id number] [place] [id number] [place] Hematocrit (Bld) [Volume fraction] 45.9 % Normal 36.0-46.0 [facility] Comment on above: Order Comment: Speci men Type: BLOOD SPECIMENOrdering Facility: [facility] Address: [address] [place] [address] Performed By: #### 5 8410-2 ####[facility] LABCLIA [id number] [place] [address] [place] Hemoglobin (Bld) [Mass/Vol] 14.9 g/dL Normal 11.5-15.5 [facility] Comment on above: Order Comment: Speci men Type: BLOOD SPECIMENOrdering Facility: [facility] Address: [address] [place] [address] Performed By: #### 5 8410-2 ####[facility] LABCLIA [id number] [place] [address] [place] MCH (RBC) [Entitic mass] 30.4 pg Normal 26.0-34.0 [facility] Comment on above: Order Comment: Speci men Type: BLOOD SPECIMENOrdering Facility: [facility] Address: [address] [place] [address] Performed By: #### 5 8410-2 ####[facility] LABIA [id number] [place] [address] [place] MCHC (RBC) [Mass/Vol] 32.5 g/dL Normal 30.5-36.[address] [facility] Comment on above: Order Comment: Speci men Type: BLOOD SPECIMENOrdering Facility: [facility] Address: [address] [place] [address] Performed By: #### 5 8410-2 ####[facility] LABCLIA [id number] [place] [address] [place] MCV (RBC) [Entitic vol] 93.7 fL Normal 80.0-100.0 [facility] Comment on above: Order Comment: Speci men Type: BLOOD SPECIMENOrdering Facility: [facility] Address: [address] [place] [address] Performed By: #### 5 8410-2 ####[facility] LABIA [id number] [place] [address] [place] Nucleated RBC (Bld) [#/Vol] 10*3/uL Normal <0.01 [facility] Comment on above: Order Comment: Speci men Type: BLOOD SPECIMENOrdering Facility: [facility] Address: [address] [place] [address] Performed By: #### 5 8410-2 ####[facility] LABIA [id number] [place] [address] [place] Platelet mean volume (Bld) [Entitic vol] 10.3 fL Normal 9.0-12.7 [facility] Comment on above: Order Comment: Speci men Type: BLOOD SPECIMENOrdering Facility: [facility] Address: [address] [place] [address] Performed By: #### 5 8410-2 ####[facility] LABIA [id number] [place] [address] [place] Platelets (Bld) [#/Vol] 221 10*3/uL Normal 150-400 [facility] Comment on above: Order Comment: Speci men Type: BLOOD SPECIMENOrdering Facility: [facility] Address: [address] [place] [address] Performed By: #### 5 8410-2 ####[facility] LABIA [id number] [place] [address] [place] RBC (Bld) [#/Vol] 4.90 10*6/uL Normal 3.90-5.20 [facility] Comment on above: Order Comment: Speci men Type: BLOOD SPECIMENOrdering Facility: [facility] Address: [address] [place] [address] Performed By: #### 5 8410-2 ####[facility] LABCLIA [id number] [place] [id number] [place] WBC (Bld) [#/Vol] 9.28 10*3/uL Normal 3.70-11.00 [facility] Comment on above: Order Comment: Speci men Type: BLOOD SPECIMENOrdering Facility: [facility] Address: [address] [place] [address] Performed By: #### 5 8410-2 ####[facility] LABCLIA [id number] [place] [id number] [place] CNOVon 06-17-2024 CNOV Office Visit (INTMWS ) -------- FROILAN GARCÍA ([id number]) 1965 F Date Time Provider Department 06/17/24 9:20 AM JUDY HAYWOOD INTMWS During your visit today, we recorded the following information about you: Pulse Respiration Blood pressure Weight 83/minute 18/minute 110/68 94.5 kg Height 1.626 m Judy Haywood, [facility] 06/17/2024 10:11 AM Signed Froilan García is [...] as PCP - General Outside specialists seen: [facility], [facility] Medical/Family history review Reviewed and updated problem [...] cardiology, s (more content not included)... Normal [facility] Ferrit[facility] [Mass/Vol] 364.0 ng/mL High 14.7-205.1 [facility] Comment on above: Order Comment: Speci men Type: BLOOD SPECIMENOrdering Facility: [facility] Address: [address] [place] [address] Performed By: #### 2 4331-1, 2132-9, 2276-4, 20634-8 ####[facility] LABCLIA [id number] [facility] [id number] [address] [place] HbA1c (Bld)on 06-17-2024 Average glucose Estimated from glycated hemoglobin (Bld) [Mass/Vol] 108 mg/dL Normal [facility] Comment on above: Order Comment: Yadira men Type: BLOOD SPECIMENOrdering Facility: [facility] Address: [address] [place] [address] Result Comment: eAG: (Estimated average glucose) is a calculated value from HgbA1c and is sales development representative of the average blood glucose level in the last 2-3 month period. Performed By: #### 5 5454-3 ####[facility] LABCLIA [id number] [place] [address] [place] HbA1c (Bld) [Mass fraction] 5.4 % Normal 4.3-5.6 [facility] Comment on above: Order Comment: Yadira men Type: BLOOD SPECIMENOrdering Facility: [facility] Address: [address] [place] [address] Result Comment: Amer ican Diabetes Association guidelines indicate that patients with HgbA1c in the range 5.7-6.4% are at increased risk for development of diabetes, and intervention by lifestyle modification may be beneficial. HgbA1c greater or equal to 6.5% is considered diagnostic of diabetes. Performed By: #### 5 5454-3 ####[facility] LABCLIA [id number] [place] [address] [place] Iron and Iron binding capaci ty panelon 06-17-2024 Iron [Mass/Vol] 76 ug/dL Normal 41-186 [facility] Comment on above: Order Comment: Yadira men Type: BLOOD SPECIMENOrdering Facility: [facility] Address: [address] [place] [address] Performed By: #### 2 4331-1, 2132-9, 2276-4, 54094-8 ####[facility] LABCLIA [id number] [place] [address] [place] Iron binding capacity [Mass/Vol] 262 ug/dL Normal 232-386 [facility] Comment on above: Order Comment: Yadira men Type: BLOOD SPECIMENOrdering Facility: [facility] Address: [address] [place] [address] Performed By: #### 2 4331-1, 2132-04, 2275-11, 21265-2 ####[facility] LABCLIA [id number] [address] [address] [place] Iron/TIBC [Molar ratio] 29.0 % Normal 15.0-57.0 [facility] Comment on above: Order Comment: Speci men Type: BLOOD SPECIMENOrdering Facility: [facility] Address: [address] [place] [address] Performed By: #### 2 4331-1, 2132-04, 2275-11, 44967-0 ####[facility] LABCLIA [id number] [address] [address] [place] Lipid 1996 panelon 4 Cholesterol [Mass/Vol] 152 mg/dL Normal <200 [facility] Comment on above: Order Comment: Speci men Type: BLOOD SPECIMENOrdering Facility: [facility] Address: [address] [place] [address] Result Comment: <200 mg/dL, Desirable 200-239 mg/dL, Borderline high >239 mg/dL, High Performed By: #### 2 4331-1, 2132-04, 2275-11, 33687-7 ####[facility] LABCLIA [id number] [address] [address] [place] Cholesterol in HDL [Mass/Vol] 53 mg/dL Normal >39 [facility] Comment on above: Order Comment: Speci men Type: BLOOD SPECIMENOrdering Facility: [facility] Address: [address] [place] [address] Result Comment: 40-5 9 mg/dL, Acceptable >59 mg/dL, High: Negative risk factor for coronary heart disease <40 mg/dL, Low: Positive risk factor for coronary heart disease Performed By: #### 2 4331-1, 2132-04, 2275-11, 04147-3 ####[facility] LABCLIA [id number] [address] [address] [place] Cholesterol in LDL [Mass/Vol] 79 mg/dL Normal <100 [facility] Comment on above: Order Comment: Speci men Type: BLOOD SPECIMENOrdering Facility: [facility] Address: [address] [place] [address] Result Comment: <100 mg/dL, Optimal 100-129 mg/dL, Near optimal/above optimal 130-159 mg/dL, Borderline high 160-189 mg/dL, High >189 mg/dL, Very high Secondary prevention optimal LDL Cholesterol levels are recommended to be < 70 mg/dL Performed By: #### 2 4331-1, 9, 4, 19480-3 ####[facility] LABCLIA [id number] [place] [address] [place] Cholesterol in LDL/Cholesterol in HDL [Mass ratio] 1.49 {ratio} Normal <2.54 [facility] Comment on above: Order Comment: Speci men Type: BLOOD SPECIMENOrdering Facility: [facility] Address: [address] [place] [address] Result Comment: Jitendra parr: 1. National Cholesterol Education Program ATP III Guideline At-A-Glance Quick Desk Reference: National Heart, Lung, and Blood [place]. National Institutes of Health. 2001: NIH Publication No. 01-3305. 2. An International Atherosclerosis Society position paper: global recommendations for the management of dyslipidemia: executive summary, Atherosclerosis. 2014: 232(2):410-413. Performed By: #### 2 4331-1, 9, 4, 34989-8 ####[facility] LABCLIA [id number] [place] [id number] [place] Cholesterol in VLDL [Mass/Vol] 20 mg/dL Normal <30 [facility] Comment on above: Order Comment: Speci men Type: BLOOD SPECIMENOrdering Facility: [facility] Address: [address] [place] [address] Performed By: #### 2 4331-1, 2132-04, 2275-11, 43242-2 ####[facility] LABCLIA [id number] [address] [address] [place] Cholesterol non HDL [Mass/Vol] 99 mg/dL Normal <130 [facility] Comment on above: Order Comment: Speci men Type: BLOOD SPECIMENOrdering Facility: [facility] Address: [address] [place] [address] Result Comment: <130 mg/dL, Optimal 130-159 mg/dL, Near optimal/above optimal 160-189 mg/dL, Borderline high 190-219 mg/dL, High >219 mg/dL, Very high Secondary prevention optimal non HDL Cholesterol levels are recommended to be <100 mg/dL Performed By: #### 2 4331-1, 2132-04, 2275-11, 21522-6 ####[facility] LABCLIA [id number] [address] [address] [place] Cholesterol.total/Cho lesterol in HDL [Mass ratio] 2.87 {ratio} Normal <5.10 [facility] Comment on above: Order Comment: Speci men Type: BLOOD SPECIMENOrdering Facility: [facility] Address: [address] [place] [address] Performed By: #### 2 4331-1, 2132-04, 2275-11, 90569-2 ####[facility] LABCLIA [id number] [place] [id number] [place] FASTING TIME 12 hrs Normal [facility] Comment on above: Order Comment: Speci men Type: BLOOD SPECIMENOrdering Facility: [facility] Address: [address] [place], [place] [address] Performed By: #### 2 4331-1, 2132-04, 2275-11, 96047-7 ####[facility] LABCLIA [id number] [address] [address] [place] Triglyceride [Mass/Vol] 98 mg/dL Normal <150 [facility] Comment on above: Order Comment: Speci men Type: BLOOD SPECIMENOrdering Facility: [facility] Address: [address] [place] [id number] Result Comment: <150 mg/dL, Normal 150-199 mg/dL, Borderline high 200-499 mg/dL, High >499 mg/dL, Very high Performed By: #### 2 4331-1, 2-9, 6-4, 98366-2 ####[facility] LABCLIA [id number] [place] [id number] [place] Vit B12 [facility] 11-11-2 024 Cobalamin (Vitamin B12) [Mass/Vol] 704 pg/mL Normal 232-1245 [facility] Comment on above: Order Comment: Speci men Type: BLOOD SPECIMENOrdering Facility: [facility] Address: [address] [place] [address] Performed By: #### 2 4331-1, 2131-9, 2275-4, 81549-2 ####[facility] LABCLIA [id number] [place] [id number] [place] Basic Metabolic Profile (BMP )on 06-12-2024 BUN/CRE 16.9 RATIO Normal 10-20 [facility] Comment on above: Performed By: #### L 500.2500 #### [facility] [address] [place], [address] CA,Total 8.8 mg/dL Normal 8.5-10.1 [facility] Comment on above: Performed By: #### L 500.2500 #### [facility] [address] [place], [address] Chloride [Moles/Vol] 104 mmol/L Normal 98-107 [facility] Comment on above: Performed By: #### L 500.2500 #### [facility] [address] [place], [address] CO2 [Moles/Vol] 26.0 mmol/L Normal 21.0-32.0 [facility] Comment on above: Performed By: #### L 500.2500 #### [facility] [address] [place], [address] Creatinine [Mass/Vol] 1.18 mg/dL High 0.55-1.02 [facility] Comment on above: Result Comment: The validity of the calculated GFR GFRAA in patients over 70 years has not been determined. Clinical correlation is essential. Performed By: #### L 500.2500 #### [facility] [address] [place], [address] EST GFR - AA 61 mL/min Normal >60 [facility] Comment on above: Result Comment: Afri can Bulgarian GFR Calc Performed By: #### L 500.2500 #### [facility] [address] [place], [address] GAP 9 Normal 5-15 [facility] Comment on above: Performed By: #### L 500.2500 #### [facility] [address] [place], [address] GFR/1.73 sq M.predicted among non-blacks MDRD (S/P/Bld) [Vol rate/Area] 50 mL/min/{1.73_m2} Low >60 [facility] Comment on above: Result Comment: Non- GFR Calc Performed By: #### L 500.2500 #### [facility] [address] [place], [address] Glucose [Mass/Vol] 130 mg/dL High 74-106 [facility] Comment on above: Result Comment: Fast ing Glucose result greater than or equal to 126 mg/dL suggests DIABETES MELLITUS per A.D.A. criteria. Performed By: #### L 500.2500 #### [facility] [address] [place], [address] Potassium [Moles/Vol] 3.1 mmol/L Low 3.5-5.1 [facility] Comment on above: Performed By: #### L 500.2500 #### [facility] [address] [place], [place], [address] Sodium [Moles/Vol] 139 mmol/L Normal 136-145 [facility] Comment on above: Performed By: #### L 500.2500 #### [facility] [address] [place], [place], [address] Urea nitrogen [Mass/Vol] 20 mg/dL High 7-18 [facility] Comment on above: Performed By: #### L 500.2500 #### [facility] [address] [place], [place], [address] Cardiology Visit Reporton Cardiology Visit Report [facility] [address] [place], [place] [address] OFFICE VISIT Date of Service: 06/05/24 MR#: [id number] Acct: [id number] Name: FROILAN GARCÍA Rep #: [id number] : 1965 Provider: Dr. 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 Accompanied by: Self Is patient [...] falls; loss of balance; no major injury) [facility] Medical History AAA (abdominal aortic aneurysm) Acute UTI Anemia Anxiety Asthma Bipolar disorder Brain aneurysm CKD (chronic kidney disease) COPD (chronic obstructive pulmonary disease) CVA (cerebral vascular accident) Depressive disorder Dysphagia as late effect of cerebrovascular accident (CVA) 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 Normal [facility] Absolute lymphocyte countOrd ered By: Merna Scherer on 07-25-2023 Lymphocytes Auto (Unsp spec) [#/Vol] 1.21 10*3/uL 0.83-4.51 [facility] Basophil percentageOrdered B y: Merna Scherer on 07-25-2023 Basophils/100 WBC (Bld) 0.5 % 0-1 [facility] Chloride [Moles/Vol] 108 mmol/L 98-107 [facility] Eosinophils/100 WBC (Bld) 0.0 % 0-5 [facility] Glucose [Mass/Vol] 116 mg/dL 74-106 [facility] Comment on above: Fasting Glucose resu lt from 100 to 125 mg/dL suggests IMPAIRED HOMEOSTASIS per A.D.A. criteria. Neutrophils (Bld) [#/Vol] 6.1 10*3/uL 2.0-7.7 [facility] Neutrophils/100 WBC (Bld) 78.2 % 47-70 [facility] Potassium [Moles/Vol] 4.6 mmol/L 3.5-5.1 [facility] Comment on above: Slight Hemolysis, Re sult may be falsely increased. Sodium [Moles/Vol] 140 mmol/L 136-145 [facility] WBC (Bld) [#/Vol] 7.8 10*3/uL 4.4-11.0 [facility] Blood erythrocytes count (nu mber/volume)Ordered By: Merna Scherer on 07-25-2023 RBC (Bld) [#/Vol] 4.69 10*6/uL 4.2-5.4 [facility] Blood hemoglobin measurement (mass/volume)Ordered By: Merna Scherer on 07-25-2023 Hemoglobin (Bld) [Mass/Vol] 14.7 g/dL 12.0-15.0 [facility] Blood lymphocytes/100 leukoc ytesOrdered By: Merna Scherer on 07-25-2023 Lymphocytes/100 WBC (Bld) 15.6 % 19-41 [facility] Blood monocytes/100 leukocyt esOrdered By: Merna Scherer on 07-25-2023 Monocytes/100 WBC (Bld) 5.3 % 0-10 [facility] Blood platelet mean volumeOr dered By: Merna Scherer on 07-25-2023 Platelet mean volume (Bld) [Entitic vol] 10.1 fL 6.2-12.0 [facility] Determination of erythrocyte mean corpuscular volume (MCV)Ordered By: Merna Scherer on 07-25-2023 MCV (RBC) [Entitic vol] 95.5 fL 81-99 [facility] Hematocrit Auto (Bld) [Volum e fraction]Ordered By: Merna Scherer on 07-25-2023 Hematocrit (Bld) [Volume fraction] 44.8 % 37-47 [facility] - Chemistry and C hemistry - challengeOrdered By: Merna Scherer on 07-25-2023 CO2 [Moles/Vol] 24.0 mmol/L 21.0-32.0 [facility] Urea nitrogen/Creatinine [Mass ratio] 18.0 mg/mg 10-20 [facility] - Hematology and Cell countsOrdered By: Merna Scherer on 07-25-2023 Erythrocyte distribution width (RBC) [Entitic vol] 45.8 fL 35.1-43.9 [facility] Erythrocyte distribution width (RBC) [Ratio] 13.0 % 11.6-14.6 [facility] Immature granulocytes/100 WBC (Bld) 0.400 % 0.0-0.9 [facility] Comment on above: IG% - Immature Granu locytes (promyelocytes, myelocytes and metamyelocytes) > 1% indicates that a LEFT SHIFT is Present. MCH (RBC) [Entitic mass] 31.3 pg 27.0-32.0 [facility] Nucleated RBC/100 WBC (Bld) [Ratio] 0 % 0-5 [facility] MCHC Auto (RBC) [Mass/Vol]Or dered By: Merna Scherer on 07-25-2023 MCHC (RBC) [Mass/Vol] 32.8 g/dL 32-36 [facility] No Panel InformationOrdered By: Merna Scherer on 07-25-2023 Estimated Creatinine Clearance Calc 56.49 ml/min [facility] Estimated GFR (MDRD) Amer 85 mL/min >60 [facility] Comment on above: GFR Calc Estimated GFR (MDRD) Non-Af Amer 70 mL/min >60 [facility] Comment on above: Non- GFR Calc Thyroid Stimulating Hormone (TSH) 0.51 uIU/mL 0.358-3.74 [facility] Platelets bldOrdered By: Silvana Scherer on 07-25-2023 Platelets (Bld) [#/Vol] 174 10*3/uL 150-450 [facility] Serum or plasma calcium juli urement (mass/volume)Ordered By: Merna Scherer on 07-25-2023 Calcium [Mass/Vol] 9.2 mg/dL 8.5-10.1 [facility] Serum or plasma creatinine m easurement (mass/volume)Ordered By: Merna Scherer on 07-25-2023 Creatinine [Mass/Vol] 0.89 mg/dL 0.55-1.02 [facility] Comment on above: The validity of the calculated GFR & GFRAA in patients over 70 years has not been determined. Clinical correlation is essential. Serum or plasma urea nitroge n measurement (mass/volume)Ordered By: Merna Scherer on 07-25-2023 Urea nitrogen [Mass/Vol] 16 mg/dL 7-18 [facility] Thin prep Papanicolaou smear with manual screeningOrdered By: Merna Scherer on 07-25-2023 Thin prep Papanicolaou smear with manual screening 8 5-15 [facility] Absolute lymphocyte countOrd ered By: Lynn Conti on 07-24-2023 Lymphocytes Auto (Unsp spec) [#/Vol] 1.63 10*3/uL 0.83-4.51 [facility] Basophil percentageOrdered B y: Lynn Conti on 07-24-2023 Basophils/100 WBC (Bld) 1.0 % 0-1 [facility] Chloride [Moles/Vol] 110 mmol/L 98-107 [facility] Eosinophils/100 WBC (Bld) 3.3 % 0-5 [facility] Glucose [Mass/Vol] 91 mg/dL 74-106 [facility] Neutrophils (Bld) [#/Vol] 5.6 10*3/uL 2.0-7.7 [facility] Neutrophils/100 WBC (Bld) 67.7 % 47-70 [facility] Potassium [Moles/Vol] 4.4 mmol/L 3.5-5.1 [facility] Comment on above: Slight Hemolysis, Re sult may be falsely increased. Sodium [Moles/Vol] 141 mmol/L 136-145 [facility] WBC (Bld) [#/Vol] 8.2 10*3/uL 4.4-11.0 [facility] Blood erythrocytes count (nu mber/volume)Ordered By: Lynn Conti on 07-24-2023 RBC (Bld) [#/Vol] 4.74 10*6/uL 4.2-5.4 [facility] Blood hemoglobin measurement (mass/volume)Ordered By: Lynn Conti on 07-24-2023 Hemoglobin (Bld) [Mass/Vol] 15.3 g/dL 12.0-15.0 [facility] Blood lymphocytes/100 leukoc ytesOrdered By: Lynn Conti on 07-24-2023 Lymphocytes/100 WBC (Bld) 19.9 % 19-41 [facility] Blood monocytes/100 leukocyt esOrdered By: Lynn Conti on 07-24-2023 Monocytes/100 WBC (Bld) 7.9 % 0-10 [facility] Blood platelet mean volumeOr dered By: Lynn Conti on 07-24-2023 Platelet mean volume (Bld) [Entitic vol] 9.5 fL 6.2-12.0 [facility] Determination of erythrocyte mean corpuscular volume (MCV)Ordered By: Lynn Conti on 07-24-2023 MCV (RBC) [Entitic vol] 99.8 fL 81-99 [facility] Hematocrit Auto (Bld) [Volum e fraction]Ordered By: Lynn Conti on 07-24-2023 Hematocrit (Bld) [Volume fraction] 47.3 % 37-47 [facility] Influenza virus A and B and SARS-CoV-2 (COVID-19) Ag panel - Upper respiratory specimOrdered By: Lynn Conti on 07-24-2023 SARS-CoV-2 & FLU Antigen (Rapid) Influenzae A [facility] SARS-CoV-2 (COVID-19) RNA ANGELINE+probe Ql (Resp) [facility] - Chemistry and C hemistry - challengeOrdered By: Lynn Conti on 07-24-2023 CO2 [Moles/Vol] 26.0 mmol/L 21.0-32.0 [facility] Natriuretic peptide B (Bld) [Mass/Vol] 34.1 pg/mL 0-100 [facility] Urea nitrogen/Creatinine [Mass ratio] 11.7 mg/mg 10-20 [facility] - Hematology and Cell countsOrdered By: Lynn Conti on 07-24-2023 Erythrocyte distribution width (RBC) [Entitic vol] 48.0 fL 35.1-43.9 [facility] [facility] Erythrocyte distribution width (RBC) [Ratio] 13.0 % 11.6-14.6 [facility] Immature granulocytes/100 WBC (Bld) 0.200 % 0.0-0.9 [facility] Comment on above: IG% - Immature Granu locytes (promyelocytes, myelocytes and metamyelocytes) > 1% indicates that a LEFT SHIFT is Present. MCH (RBC) [Entitic mass] 32.3 pg 27.0-32.0 [facility] Nucleated RBC/100 WBC (Bld) [Ratio] 0 % 0-5 [facility] MCHC Auto (RBC) [Mass/Vol]Or dered By: Lynn Conti on 07-24-2023 MCHC (RBC) [Mass/Vol] 32.3 g/dL 32-36 [facility] No Panel InformationOrdered By: Lynn Conti on 07-24-2023 Estimated Creatinine Clearance Calc 53.48 ml/min [facility] Estimated GFR (MDRD) Amer 79 mL/min >60 [facility] Comment on above: GFR Calc Estimated GFR (MDRD) Non-Af Amer 65 mL/min >60 [facility] Comment on above: Non- GFR Calc Troponin I High Sensitivity 5 pg/mL 3.0-54.0 [facility] Comment on above: Please Note: New Lary t Units and Gender Specific Reference Ranges. For more information see Policy Stat Procedure [place] High Sensitivity Troponin (TNIH) and attachments. Platelets bldOrdered By: Lucina Conti on 07-24-2023 Platelets (Bld) [#/Vol] 173 10*3/uL 150-450 [facility] Serum or plasma calcium juli urement (mass/volume)Ordered By: Lynn Conti on 07-24-2023 Calcium [Mass/Vol] 9.3 mg/dL 8.5-10.1 [facility] Serum or plasma creatinine m easurement (mass/volume)Ordered By: Lynn Conti on 07-24-2023 Creatinine [Mass/Vol] 0.94 mg/dL 0.55-1.02 [facility] Comment on above: The validity of the calculated GFR & GFRAA in patients over 70 years has not been determined. Clinical correlation is essential. Serum or plasma urea nitroge n measurement (mass/volume)Ordered By: Lynn Conti on 07-24-2023 Urea nitrogen [Mass/Vol] 11 mg/dL 7-18 [facility] Thin prep Papanicolaou smear with manual screeningOrdered By: Lynn Conti on 07-24-2023 Thin prep Papanicolaou smear with manual screening 5 5-15 [facility] Absolute lymphocyte countOrd ered By: Myra Reese on 02-16-2023 Lymphocytes Auto (Unsp spec) [#/Vol] 1.80 10*3/uL 0.83-4.51 [facility] Basophil percentageOrdered B y: Myra Reese on 02-16-2023 Ammonia (P) [Moles/Vol] 16.0 umol/L 11-32 [facility] Basophils/100 WBC (Bld) 1.0 % 0-1 [facility] Bilirubin [Mass/Vol] 0.40 mg/dL 0.20-1.00 [facility] Comment on above: For patients on eltr ombopag therapy, use of Dimension [place] TBIL is not recommended. Chloride [Moles/Vol] 104 mmol/L 98-107 [facility] Eosinophils/100 WBC (Bld) 3.9 % 0-5 [facility] Glucose [Mass/Vol] 91 mg/dL 74-106 [facility] Neutrophils (Bld) [#/Vol] 4.9 10*3/uL 2.0-7.7 [facility] Neutrophils/100 WBC (Bld) 64.0 % 47-70 [facility] Potassium [Moles/Vol] 4.4 mmol/L 3.5-5.1 [facility] Protein [Mass/Vol] 7.1 g/dL 6.4-8.2 [facility] Sodium [Moles/Vol] 137 mmol/L 136-145 [facility] WBC (Bld) [#/Vol] 7.6 10*3/uL 4.4-11.0 [facility] Blood erythrocytes count (nu mber/volume)Ordered By: Myra Reese on 02-16-2023 RBC (Bld) [#/Vol] 4.71 10*6/uL 4.2-5.4 [facility] Blood hemoglobin measurement (mass/volume)Ordered By: Myra Reese on 02-16-2023 Hemoglobin (Bld) [Mass/Vol] 14.7 g/dL 12.0-15.0 [facility] Blood lymphocytes/100 leukoc ytesOrdered By: Myra Reese on 02-16-2023 Lymphocytes/100 WBC (Bld) 23.6 % 19-41 [facility] Blood monocytes/100 leukocyt esOrdered By: Myra Reese on 02-16-2023 Monocytes/100 WBC (Bld) 7.2 % 0-10 [facility] Blood platelet mean volumeOr dered By: Myra Reese on 02-16-2023 Platelet mean volume (Bld) [Entitic vol] 9.5 fL 6.2-12.0 [facility] Determination of erythrocyte mean corpuscular volume (MCV)Ordered By: Myra Reese on 02-16-2023 MCV (RBC) [Entitic vol] 93.6 fL 81-99 [facility] Hematocrit Auto (Bld) [Volum e fraction]Ordered By: Myra Reese on 02-16-2023 Hematocrit (Bld) [Volume fraction] 44.1 % 37-47 [facility] Laboratory - Chemistry and C hemistry - challengeOrdered By: Myra Reese on 02-16-2023 ALP [Catalytic activity/Vol] 87 U/L 45-117 [facility] ALT [Catalytic activity/Vol] 12 U/L 13-56 [facility] CO2 [Moles/Vol] 27.0 mmol/L 21.0-32.0 [facility] Globulin (S) [Mass/Vol] 3.4 g/dL 2.2-4.2 [facility] Urea nitrogen/Creatinine [Mass ratio] 11.0 mg/mg 10-20 [facility] Laboratory - Hematology and Cell countsOrdered By: Myra Reese on 02-16-2023 Erythrocyte distribution width (RBC) [Entitic vol] 44.9 fL 35.1-43.9 [facility] Erythrocyte distribution width (RBC) [Ratio] 13.1 % 11.6-14.6 [facility] Immature granulocytes/100 WBC (Bld) 0.300 % 0.0-0.9 [facility] Comment on above: IG% - Immature Granu locytes (promyelocytes, myelocytes and metamyelocytes) > 1% indicates that a LEFT SHIFT is Present. MCH (RBC) [Entitic mass] 31.2 pg 27.0-32.0 [facility] Nucleated RBC/100 WBC (Bld) [Ratio] 0 % 0-5 [facility] MCHC Auto (RBC) [Mass/Vol]Or dered By: Myra Reese on 02-16-2023 MCHC (RBC) [Mass/Vol] 33.3 g/dL 32-36 [facility] No Panel InformationOrdered By: Myra Reese on 02-16-2023 Estimated GFR (MDRD) Amer 83 mL/min >60 [facility] Comment on above: GFR Calc Estimated GFR (MDRD) Non-Af Amer 68 mL/min >60 [facility] Comment on above: Non- GFR Calc Valproic Acid (Depakene) Level 27 ug/mL 50-100 [facility] Platelets bldOrdered By: Silvana Reese on 02-16-2023 Platelets (Bld) [#/Vol] 169 10*3/uL 150-450 [facility] Serum or plasma albumin juli urement (mass/volume)Ordered By: Myra Reese on 02-16-2023 Albumin [Mass/Vol] 3.7 g/dL 3.2-5.0 [facility] Serum or plasma albumin/glob ulin mass ratioOrdered By: Myra Reese on 02-16-2023 Albumin/Globulin [Mass ratio] 1.1 {ratio} 0.9-2.4 [facility] Serum or plasma calcium juli urement (mass/volume)Ordered By: Myra Reese on 02-16-2023 Calcium [Mass/Vol] 9.1 mg/dL 8.5-10.1 [facility] Serum or plasma creatinine m easurement (mass/volume)Ordered By: Myra Reese on 02-16-2023 Creatinine [Mass/Vol] 0.91 mg/dL 0.55-1.02 [facility] Comment on above: The validity of the calculated GFR & GFRAA in patients over 70 years has not been determined. Clinical correlation is essential. Serum or plasma oxcarbazepin e measurement (mass/volume)Ordered By: Myra Reese on 02-16-2023 OXcarbazepine [Mass/Vol] 12 ug/mL 10-35 [facility] Comment on above: This test was develo ped and its performance characteristicsdetermined by [employer] It has not been cleared orapproved by the Food and Drug Administration. Detection Limit = 1Performed at: [address] [id number] Director: Arlene Roman MD, Phone: [phone] Serum or plasma urea nitroge n measurement (mass/volume)Ordered By: Myra Reese on 02-16-2023 Urea nitrogen [Mass/Vol] 10 mg/dL 7-18 [facility] Thin prep Papanicolaou smear with manual screeningOrdered By: Myra Reese on 02-16-2023 Thin prep Papanicolaou smear with manual screening 14 U/L 15-37 [facility] Thin prep Papanicolaou smear with manual screening 6 5-15 [facility] US BREAST LTD RIGHTon 2022 [facility] No Panel Informationon 11-11 INR International Normalized Ratio 8.0 [facility] Laboratory - CoagulationOrde red By: Lucio Basurto on 11-03-2022 INR Coag (Bld) [Relative time] 1.8 {INR} [facility] Comment on above: Critical Value > 4.0 Whole blood prothrombin time Ordered By: Lucio Basutro on 11-03-2022 PT Coag (Bld) [Time] 20.4 s 11.7-14.9 [facility] INR in Blood by Coagulation assayOrdered By: Lucio Basurto on 11-01-2022 INR Coag (Bld) [Relative time] 4.1 {INR} [facility] Laboratory - CoagulationOrde red By: Lucio Basurto on 11-01-2022 PT Coag (PPP) [Time] 39.4 s 11.7-14.9 [facility] Comment on above: RESULTS CALLED TO ARIES LE RN 11/01/22 Sara5 Lora Miller.REPORT READ BACK BY SAME. Whole blood prothrombin time Ordered By: Lucio Basurto on 11-01-2022 PT Coag (Bld) [Time] 49.2 s 11.7-14.9 [facility] Laboratory - CoagulationOrde red By: Lucio Basurto on 10-18-2022 INR Coag (Bld) [Relative time] 2.8 {INR} [facility] Comment on above: Critical Value > 4.0 Whole blood prothrombin time Ordered By: Lucio Basurto on 10-18-2022 PT Coag (Bld) [Time] 31.9 s 11.7-14.9 [facility] Basic Metabolic Panel Reflex Mgon 06-16-2022 Anion gap [Moles/Vol] 10 mmol/L Normal 7-16 [facility] Calcium [Mass/Vol] 9.2 mg/dL Normal 8.6-10.2 [facility] Chloride [Moles/Vol] 104 mmol/L Normal 98-107 [facility] CO2 [Moles/Vol] 21 mmol/L Low 22-29 [facility] Creatinine [Mass/Vol] 0.9 mg/dL Normal 0.5-1.0 [facility] GFR Calculated >60 Normal >=60 [facility] Comment on above: Result Comment: Armaan atric [...] secretion. Glucose [Mass/Vol] 85 mg/dL Normal 74-99 [facility] Magnesium [Moles/Vol] 4.2 mmol/L Normal 3.5-5.0 [facility] Sodium [Moles/Vol] 135 mmol/L Normal 132-146 [facility] Urea nitrogen [Mass/Vol] 13 mg/dL Normal 6-20 [facility] CBC With Platelet and Differ entialon 06-16-2022 Abs Imm Granulocytes 0.03 E9/L Normal [facility] Absolute Basophils 0.05 E9/L Normal 0.00-0.20 [facility] Absolute Eosinophils 0.19 E9/L Normal 0.05-0.50 [facility] Absolute Lymphocytes 1.58 E9/L Normal 1.50-4.00 [facility] Absolute Monocytes 0.52 E9/L Normal 0.10-0.95 [facility] Absolute Neutrophils 3.96 E9/L Normal 1.80-7.30 [facility] Basophils/100 WBC (Bld) 0.8 % Normal 0.0-2.0 [facility] Eosinophils/100 WBC (Bld) 3.0 % Normal 0.0-6.0 [facility] Hematocrit (Bld) [Volume fraction] 37.5 % Normal 34.0-48.0 [facility] Hemoglobin (Bld) [Mass/Vol] 11.7 g/dL Normal 11.5-15.5 [facility] Imm Granulocytes 0.5 % Normal 0.0-5.0 [facility] Lymphocytes/100 WBC (Bld) 25.0 % Normal 20.0-42.0 [facility] MCH (RBC) [Entitic mass] 24.9 pg Low 26.0-35.0 [facility] MCHC 31.2 % Low 32.0-34.5 [facility] MCV (RBC) [Entitic vol] 79.8 fL Low 80.0-99.9 [facility] Monocytes/100 WBC (Bld) 8.2 % Normal 2.0-12.0 [facility] Neutrophils/100 WBC (Bld) 62.5 % Normal 43.0-80.0 [facility] Platelet Count 240 E9/L Normal 130-450 [facility] Platelet mean volume (Bld) [Entitic vol] 10.6 fL Normal 7.0-12.0 [facility] RBC 4.70 E12/L Normal 3.50-5.50 [facility] RDW 18.5 fL High 11.5-15.0 [facility] WBC 6.3 E9/L Normal 4.5-11.5 [facility] Prothrombin Timeon INR Coag (PPP) [Relative time] 1.8 {INR} Normal [facility] PT Coag (PPP) [Time] 19.5 s High 9.3-12.4 [facility] Basic Metabolic Panel Reflex Mgon 06-15-2022 Anion gap [Moles/Vol] 12 mmol/L Normal 7-16 [facility] Comment on above: Order Comment: Mariaa jason has been rescheduled by [facility] at 06/15/2022 07:40 Reason: Done Calcium [Mass/Vol] 9.4 mg/dL Normal 8.6-10.2 [facility] Comment on above: Order Comment: Mariaa jason has been rescheduled by [facility] at 06/15/2022 07:40 Reason: Done Chloride [Moles/Vol] 103 mmol/L Normal 98-107 [facility] Comment on above: Order Comment: Mariaa jason has been rescheduled by [facility] at 06/15/2022 07:40 Reason: Done CO2 [Moles/Vol] 22 mmol/L Normal 22-29 [facility] Comment on above: Order Comment: Mariaa jason has been rescheduled by [facility] at 06/15/2022 07:40 Reason: Done Creatinine [Mass/Vol] 0.9 mg/dL Normal 0.5-1.0 [facility] Comment on above: Order Comment: Mariaa jason has been rescheduled by [facility] at 06/15/2022 07:40 Reason: Done GFR Calculated >60 Normal >=60 [facility] Comment on above: Order Comment: Mariaa jason has been rescheduled by [facility] at 06/15/2022 07:40 Reason: Done Result Comment: [...] secretion. Glucose [Mass/Vol] 83 mg/dL Normal 74-99 [facility] Comment on above: Order Comment: Mariaa jason has been rescheduled by [facility] at 06/15/2022 07:40 Reason: Done Magnesium [Moles/Vol] 4.0 mmol/L Normal 3.5-5.0 [facility] Comment on above: Order Comment: Mariaa jason has been rescheduled by [facility] at 06/15/2022 07:40 Reason: Done Sodium [Moles/Vol] 137 mmol/L Normal 132-146 [facility] Comment on above: Order Comment: Mariaa jason has been rescheduled by [facility] at 06/15/2022 07:40 Reason: Done Urea nitrogen [Mass/Vol] 14 mg/dL Normal 6-20 [facility] Comment on above: Order Comment: Mariaa jason has been rescheduled by [facility] at 06/15/2022 07:40 Reason: Done CBC With Platelet and Differ entialon 06-15-2022 Abs Imm Granulocytes 0.01 E9/L Normal [facility] Comment on above: Order Comment: Mariaa jason has been rescheduled by [facility] at 06/15/2022 07:40 Reason:Done Absolute Basophils 0.06 E9/L Normal 0.00-0.20 [facility] Comment on above: Order Comment: Mariaa jason has been rescheduled by [facility] at 06/15/2022 07:40 Reason:Done Absolute Eosinophils 0.25 E9/L Normal 0.05-0.50 [facility] Comment on above: Order Comment: Mariaa jason has been rescheduled by [facility] at 06/15/2022 07:40 Reason:Done Absolute Lymphocytes 1.73 E9/L Normal 1.50-4.00 [facility] Comment on above: Order Comment: [facility] 07:40 Reason:Done Absolute Monocytes 0.45 E9/L Normal 0.10-0.95 [facility] Comment on above: Order Comment: Mariaa jason has been [facility] at 06/15/2022 07:40 Reason:Done Absolute Neutrophils 3.14 E9/L Normal 1.80-7.30 [facility] Comment on above: Order Comment: Mariaa jason has been [facility] by [facility] at 06/15/2022 07:40 Reason:Done Basophils/100 WBC (Bld) 1.1 % Normal 0.0-2.0 [facility] Comment on above: Order Comment: Mariaa jason has been [facility]ched[facility] by [facility] at 06/15/2022 07:40 Reason:Done Eosinophils/100 WBC (Bld) 4.4 % Normal 0.0-6.0 [facility] Comment on above: Order Comment: Mariaa jason has been rescheduled by [facility] at 06/15/2022 07:40 Reason:Done Hematocrit (Bld) [Volume fraction] 37.9 % Normal 34.0-48.0 [facility] Comment on above: Order Comment: Mariaa jason has been rescheduled by [facility] at 06/15/2022 07:40 Reason:Done Hemoglobin (Bld) [Mass/Vol] 12.0 g/dL Normal 11.5-15.5 [facility] Comment on above: Order Comment: Mariaa jason has been rescheduled by [facility] at 06/15/2022 07:40 Reason:Done Imm Granulocytes 0.2 % Normal 0.0-5.0 [facility] Comment on above: Order Comment: Mariaa jason has been [facility]ched[facility] by [facility] at 06/15/2022 07:40 Reason:Done Lymphocytes/100 WBC (Bld) 30.7 % Normal 20.0-42.0 [facility] Comment on above: Order Comment: Mariaa jason has been resched[facility] by [facility] at 06/15/2022 07:40 Reason:Done MCH (RBC) [Entitic mass] 25.2 pg Low 26.0-35.0 [facility] Comment on above: Order Comment: Mariaa jason has been rescheduled by [facility] at 06/15/2022 07:40 Reason:Done MCHC 31.7 % Low 32.0-34.5 [facility] Comment on above: Order Comment: Mariaa jason has been resched[facility] by [facility] at 06/15/2022 07:40 Reason:Done MCV (RBC) [Entitic vol] 79.6 fL Low 80.0-99.9 [facility] Comment on above: Order Comment: Mariaa jason has been rescheduled by [facility] at 06/15/2022 07:40 Reason:Done Monocytes/100 WBC (Bld) 8.0 % Normal 2.0-12.0 [facility] Comment on above: Order Comment: Mariaa jason has been rescheduled by [facility] at 06/15/2022 07:40 Reason:Done Neutrophils/100 WBC (Bld) 55.6 % Normal 43.0-80.0 [facility] Comment on above: Order Comment: Mariaa jason has been rescheduled by [facility] at 06/15/2022 07:40 Reason:Done Platelet Count 248 E9/L Normal 130-450 [facility] Comment on above: Order Comment: Mariaa jason has been rescheduled by [facility] at 06/15/2022 07:40 Reason:Done Platelet mean volume (Bld) [Entitic vol] 10.7 fL Normal 7.0-12.0 [facility] Comment on above: Order Comment: Mariaa jason has been rescheduled by [facility] at 06/15/2022 07:40 Reason:Done RBC 4.76 E12/L Normal 3.50-5.50 [facility] Comment on above: Order Comment: Mariaa jason has been rescheduled by [facility] at 06/15/2022 07:40 Reason:Done RDW 18.6 fL High 11.5-15.0 [facility] Comment on above: Order Comment: Mariaa ction has been rescheduled by [facility] at 06/15/2022 07:40 Reason:Done WBC 5.6 E9/L Normal 4.5-11.5 [facility] Comment on above: Order Comment: Mariaa ction has been [facility] by [facility] at 06/15/2022 07:40 Reason:Done CT HEAD WO [...] Contreras Lee MD 06/15/22 Final result Normal [facility] Comment on above: Order Comment: TOMOR ROW please, not todayReason for exam:->cvaHas a code stroke or stroke alert been called?->NoWhat reading provider will be dictating this exam?->CRC Prothrombin Timeon 2 INR Coag (PPP) [Relative time] 1.7 {INR} Normal [facility] PT Coag (PPP) [Time] 18.3 s High 9.3-12.4 [facility] Lipid Panelon 06-14-2022 Cholesterol [Mass/Vol] 141 mg/dL Normal 0-199 [facility] Cholesterol in HDL [Mass/Vol] 50 mg/dL Normal >40 [facility] Cholesterol in LDL [Mass/Vol] 70 mg/dL Normal 0-99 [facility] Triglyceride [Mass/Vol] 105 mg/dL Normal 0-149 [facility] VLDL Cholesterol (Calculated) 21 mg/dL Normal [facility] Prothrombin Timeon 2 INR Coag (PPP) [Relative time] 1.4 {INR} Normal [facility] PT Coag (PPP) [Time] 14.9 s High 9.3-12.4 [facility] TSH w/out Reflexon 2 TSH w/out Reflex 0.326 uIU/mL Normal 0.270-4.200 [facility] Basic Metabolic Panelon 11 Anion gap [Moles/Vol] 10 mmol/L Normal 7-16 [facility] Calcium [Mass/Vol] 10.0 mg/dL Normal 8.6-10.2 [facility] Chloride [Moles/Vol] 105 mmol/L Normal 98-107 [facility] CO2 [Moles/Vol] 24 mmol/L Normal 22-29 [facility] Creatinine [Mass/Vol] 0.9 mg/dL Normal 0.5-1.0 [facility] GFR Calculated >60 Normal >=60 [facility] Comment on above: Result Comment: Armaan atric [...] secretion. Glucose [Mass/Vol] 104 mg/dL High 74-99 [facility] Potassium [Moles/Vol] 4.2 mmol/L Normal 3.5-5.0 [facility] Sodium [Moles/Vol] 139 mmol/L Normal 132-146 [facility] Urea nitrogen [Mass/Vol] 16 mg/dL Normal 6-20 [facility] CBC With Platelet No Differe bruce 06-13-2022 Hematocrit (Bld) [Volume fraction] 40.7 % Normal 34.0-48.0 [facility] Hemoglobin (Bld) [Mass/Vol] 12.9 g/dL Normal 11.5-15.5 [facility] MCH (RBC) [Entitic mass] 25.5 pg Low 26.0-35.0 [facility] MCHC 31.7 % Low 32.0-34.5 [facility] MCV (RBC) [Entitic vol] 80.6 fL Normal 80.0-99.9 [facility] Platelet Count 279 E9/L Normal 130-450 [facility] Platelet mean volume (Bld) [Entitic vol] 10.5 fL Normal 7.0-12.0 [facility] RBC 5.05 E12/L Normal 3.50-5.50 [facility] RDW 19.9 fL High 11.5-15.0 [facility] WBC 6.5 E9/L Normal 4.5-11.5 [facility] CBC With Platelet and Differ entialon 06-13-2022 Abs Imm Granulocytes 0.02 E9/L Normal [facility] Absolute Basophils 0.07 E9/L Normal 0.00-0.20 [facility] Absolute Eosinophils 0.17 E9/L Normal 0.05-0.50 [facility] Absolute Lymphocytes 1.79 E9/L Normal 1.50-4.00 [facility] Absolute Monocytes 0.66 E9/L Normal 0.10-0.95 [facility] Absolute Neutrophils 4.66 E9/L Normal 1.80-7.30 [facility] Basophils/100 WBC (Bld) 0.9 % Normal 0.0-2.0 [facility] Eosinophils/100 WBC (Bld) 2.3 % Normal 0.0-6.0 [facility] Hematocrit (Bld) [Volume fraction] 38.8 % Normal 34.0-48.0 [facility] Hemoglobin (Bld) [Mass/Vol] 12.5 g/dL Normal 11.5-15.5 [facility] Imm Granulocytes 0.3 % Normal 0.0-5.0 [facility] Lymphocytes/100 WBC (Bld) 24.3 % Normal 20.0-42.0 [facility] MCH (RBC) [Entitic mass] 25.6 pg Low 26.0-35.0 [facility] MCHC 32.2 % Normal 32.0-34.5 [facility] MCV (RBC) [Entitic vol] 79.5 fL Low 80.0-99.9 [facility] Monocytes/100 WBC (Bld) 9.0 % Normal 2.0-12.0 [facility] Neutrophils/100 WBC (Bld) 63.2 % Normal 43.0-80.0 [facility] Platelet Count 264 E9/L Normal 130-450 [facility] Platelet mean volume (Bld) [Entitic vol] 9.8 fL Normal 7.0-12.0 [facility] RBC 4.88 E12/L Normal 3.50-5.50 [facility] RDW 18.8 fL High 11.5-15.0 [facility] WBC 7.4 E9/L Normal 4.5-11.[address] [facility] [address] BRAIN PERFUSIONon 022 CT BRAIN PERFUSION [...] identified This study was analyzed by the [employer] algorithm. Interpreted by: Nitish Kraus II, MD Signed by: Nitish Kraus II, MD 06/12/22 Final result Normal [facility] Comment on above: Order Comment: Reaso n for exam:->stroke Has a code stroke or stroke alert been called?->Yes Decision Support Exception - unselect if not a suspected or confirmed emergency medical condition->Emergency Medical Condition ([place]) What reading provider will be dictating this exam?->[facility] HEAD WO CONTRASTon 2021 CT HEAD [...] Kraus II, MD 06/12/22 Final result Normal [facility] Comment on above: Order Comment: Reaso n for exam:->strokeHas a code stroke or stroke alert been called?->YesDecision Support Exception - unselect if not a suspected or confirmed emergency medical condition->Emergency Medical Condition (MA)What reading provider will be dictating this exam?->[facility]A HEAD W CONTRASTon 2021 CTA HEAD [...] Dwyer This study was analyzed by the [employer] algorithm. Interpreted by: Nitish Kraus II, MD Signed by: Nitish Kraus II, MD 06/12/22 Final result Normal [facility] Comment on above: Order Comment: Reaso n for exam:->strokeHas a code stroke or stroke alert been called?->YesDecision Support Exception - unselect if not a suspected or confirmed emergency medical condition->Emergency Medical Condition (MA)What reading provider will be dictating this exam?->[facility] CTA NECK W CONTRASTon 2021 CTA NECK [...] Dwyer This study was analyzed by the V[employer] algorithm. Interpreted by: Nitish Kraus II, MD Signed by: Nitish Kraus II, MD 06/12/22 Final result Normal [facility] Comment on above: Order Comment: Reaso n for exam:->stroke Has a code stroke or stroke alert been called?->Yes Decision Support Exception - unselect if not a suspected or confirmed emergency medical condition->Emergency Medical Condition (MA) What reading provider will be dictating this exam?->[facility] Hgb A1Con 06-13-2022 HbA1c (Bld) [Mass fraction] 5.3 % Normal 4.0-5.6 [facility] High Sensitivity Troponin To n 06-13-2022 High Sensitivity Troponin T 17 ng/L High 0-9 [facility] Comment on above: Result Comment: High Sensitivity Troponin values cannot be compared with other Troponin methodologies. Patients with high levels of Biotin oral intake (i.e. >5 mg/day) may have falsely decreased Troponin levels. Samples collected within 8 hours of biotin intake may require additional information for diagnosis. Homocysteineon 06-13-2022 Homocysteine 12.7 umol/L Normal 0.0-15.0 [facility] METER GLUCOSEon 06-13-2022 Glucose [Mass/Vol] 98 mg/dL Normal 74-99 [facility] Prothrombin Timeon INR Coag (PPP) [Relative time] 1.3 {INR} Normal [facility] PT Coag (PPP) [Time] 14.6 s High 9.3-12.4 [employer] Rejection Notificationon Reason see below Normal [facility] Comment on above: Result Comment: Unab le to perform testing; specimen grossly hemolyzed. To perform testing the specimen will need to be recollected. Hemolyz Rejected Test CMPX Normal [facility] T3 Freeon 06-13-2022 Free T3 [Mass/Vol] 2.5 pg/mL Normal 2.0-4.4 [facility] Thyroxine Freeon 06-13-2022 Thyroxine Free 1.09 ng/dL Normal 0.93-1.70 [facility] Absolute lymphocyte counton 06-10-2022 Lymphocytes Auto (Unsp spec) [#/Vol] 1.89 10*3/uL 0.83-4.51 [facility] Work Phone: Basophil percentageon 2021 Basophils/100 WBC (Bld) 0.8 % 0-1 [facility] Work Phone: [phone] Bilirubin [Mass/Vol] 0.30 mg/dL 0.20-1.00 [facility] Work Phone: [phone] Comment on above: For patients on eltr ombopag therapy, use of Dimension [place] TBIL is not recommended. Chloride [Moles/Vol] 108 mmol/L 98-107 [facility] Work Phone: [phone] Eosinophils/100 WBC (Bld) 3.3 % 0-5 [facility] Work Phone: [phone] Glucose [Mass/Vol] 89 mg/dL 74-106 [facility] Work Phone: [phone] Neutrophils (Bld) [#/Vol] 3.6 10*3/uL 2.0-7.7 [facility] Work Phone: Neutrophils/100 WBC (Bld) 56.3 % 47-70 [facility] Work Phone: Potassium [Moles/Vol] 4.0 mmol/L 3.5-5.1 [facility] Work Phone: Protein [Mass/Vol] 7.0 g/dL 6.4-8.2 [facility] Work Phone: [phone] Sodium [Moles/Vol] 141 mmol/L 136-145 [facility] Work Phone: [phone] WBC (Bld) [#/Vol] 6.3 10*3/uL 4.4-11.0 [facility] Work Phone: Beta hCG serum qualon 2021 Beta HCG ( test) Ql Negative [facility] Work Phone: Blood erythrocytes count (nu mber/volume)on 06-10-2022 RBC (Bld) [#/Vol] 4.51 10*6/uL 4.2-5.4 [facility]: Blood hemoglobin measurement (mass/volume)on 06-10-2022 Hemoglobin (Bld) [Mass/Vol] 11.2 g/dL 12.0-15.0 [facility] Work Phone: Blood lymphocytes/100 leukoc yteson 06-10-2022 Lymphocytes/100 WBC (Bld) 29.9 % 19-41 [facility] Work Phone: Blood monocytes/100 leukocyt eson 06-10-2022 Monocytes/100 WBC (Bld) 9.5 % 0-10 [facility] Work Phone: Blood platelet mean volumeon 06-10-2022 Platelet mean volume (Bld) [Entitic vol] 10.0 fL 6.2-12.0 [facility] Work Phone: Determination of erythrocyte mean corpuscular volume (MCV)on 06-10-2022 MCV (RBC) [Entitic vol] 80.0 fL 81-99 [facility] Work Phone: Hematocrit Auto (Bld) [Volum e fraction]on 06-10-2022 Hematocrit (Bld) [Volume fraction] 36.1 % 37-47 [facility] Work Phone: INR in Blood by Coagulation assayon 06-10-2022 INR Coag (Bld) [Relative time] 1.1 {INR} [facility] Work Phone: Laboratory - Chemistry and C hemistry - challengeon 06-10-2022 ALP [Catalytic activity/Vol] 85 U/L 45-117 [facility] Work Phone: ALT [Catalytic activity/Vol] 21 U/L 13-56 [facility] Work Phone: CO2 [Moles/Vol] 24.0 mmol/L 21.0-32.0 [facility] Work Phone: Globulin (S) [Mass/Vol] 3.4 g/dL 2.2-4.2 [facility] Work Phone: Urea nitrogen/Creatinine [Mass ratio] 10.0 mg/mg 10-20 [facility] Work Phone: Laboratory - Coagulationon 1 08-10-2021 PT Coag (PPP) [Time] 14.1 s 11.7-14.9 [facility] Work Phone: Laboratory - Drug toxicology on 06-10-2022 Amphetamines Ql (U) Negative <1000 ng/mL [facility] Work Phone: [phone] Benzodiazepines Ql (U) Negative < 200 ng/mL [facility] Work Phone: Cannabinoids Screen Ql (U) Negative < 50 ng/mL [facility] Work Phone: Cocaine Ql (U) Negative < 300 ng/mL [facility] Work Phone: Opiates Ql (U) Negative < 300 ng/mL [facility] Work Phone: Laboratory - Hematology and Cell countson 06-10-2022 Erythrocyte distribution width (RBC) [Entitic vol] 53.4 fL 35.1-43.9 [facility] Work Phone: Erythrocyte distribution width (RBC) [Ratio] 18.7 % 11.6-14.6 [facility] Work Phone: Immature granulocytes/100 WBC (Bld) 0.200 % 0.0-0.9 [facility] Work Phone: Comment on above: IG% - Immature Granu locytes (promyelocytes, myelocytes and metamyelocytes) > 1% indicates that a LEFT SHIFT is Present. MCH (RBC) [Entitic mass] 24.8 pg 27.0-32.0 [facility] Work Phone: Nucleated RBC/100 WBC (Bld) [Ratio] 0 % 0-5 [facility] Work Phone: MCHC Auto (RBC) [Mass/Vol]on 06-10-2022 MCHC (RBC) [Mass/Vol] 31.0 g/dL 32-36 [facility] Work Phone: No Panel Informationon 06-10 MDMA (Ecstasy) Screen Negative < 500 ng/mL [facility] Work Phone: Urine Barbiturates Screen Negative < 200 ng/mL [facility] Work Phone: Urine Drug Screen Comment [facility] Work Phone: Comment on above: CONFIRMATORY [...] Urine Methadone Screen Negative < 300 ng/mL [facility] Work Phone: Estimated Creatinine Clearance Calc 59.11 ml/min [facility] Work Phone: Estimated GFR (MDRD) Amer 84 mL/min >60 [facility] Work Phone: Comment on above: GFR Calc Estimated GFR (MDRD) Non-Af Amer 69 mL/min >60 [facility] Work Phone: Comment on above: Non- GFR Calc Ethyl Alcohol Level 6.0 mg/dL [facility] Work Phone: Comment on above: The serum:whole bloo d ethanol ratio is approximately 1.14and varies slightly with hematocrit. Medical Alcohol reference interval and critical value innon-tolerant individuals; 50 - 100 Impairment 100 Intoxication 100 - 250 Severe Poisoning 250 - 400 Deep/possible fatal coma Platelets bldon 06-10-2022 Platelets (Bld) [#/Vol] 244 10*3/uL 150-450 [facility] Work Phone: Serum or plasma albumin juli urement (mass/volume)on 06-10-2022 Albumin [Mass/Vol] 3.6 g/dL 3.2-5.0 [facility] Work Phone: Serum or plasma albumin/glob ulin mass ratioon 06-10-2022 Albumin/Globulin [Mass ratio] 1.1 {ratio} 0.9-2.4 [facility] Work Phone: Serum or plasma calcium juli urement (mass/volume)on 06-10-2022 Calcium [Mass/Vol] 9.5 mg/dL 8.5-10.1 [facility] Work Phone: Serum or plasma creatinine m easurement (mass/volume)on 06-10-2022 Creatinine [Mass/Vol] 0.90 mg/dL 0.55-1.02 [facility] Work Phone: Comment on above: The validity of the calculated GFR & GFRAA in patients over 70 years has not been determined. Clinical correlation is essential. Serum or plasma urea nitroge n measurement (mass/volume)on 06-10-2022 Urea nitrogen [Mass/Vol] 9 mg/dL 7-18 [facility] Work Phone: Thin prep Papanicolaou smear with manual screeningon 06-10-2022 Thin prep Papanicolaou smear with manual screening 21 U/L 15-37 [facility] Work Phone: [phone] Thin prep Papanicolaou smear with manual screening 9 5-15 [facility] Work Phone: Urine phencyclidine (PCP) de tectionon 06-10-2022 Phencyclidine Ql (U) Negative < 25 ng/mL [facility] Work Phone: Absolute lymphocyte counton 06-08-2022 Lymphocytes Auto (Unsp spec) [#/Vol] 1.15 10*3/uL 0.83-4.51 [facility] Work Phone: Basophil percentageon 2021 Basophils/100 WBC (Bld) 0.6 % 0-1 [facility] Work Phone: Chloride [Moles/Vol] 109 mmol/L 98-107 [facility] Work Phone: Eosinophils/100 WBC (Bld) 1.3 % 0-5 [facility] Work Phone: Glucose [Mass/Vol] 110 mg/dL 74-106 [facility] Work Phone: Comment on above: Fasting Glucose resu lt from 100 to 125 mg/dL suggests IMPAIRED HOMEOSTASIS per A.D.A. criteria. Neutrophils (Bld) [#/Vol] 4.5 10*3/uL 2.0-7.7 [facility] Work Phone: [phone] Neutrophils/100 WBC (Bld) 70.7 % 47-70 [facility] Work Phone: Potassium [Moles/Vol] 4.2 mmol/L 3.5-5.1 [facility] Work Phone: Sodium [Moles/Vol] 139 mmol/L 136-145 [facility] Work Phone: WBC (Bld) [#/Vol] 6.4 10*3/uL 4.4-11.0 [facility] Work Phone: Beta hCG serum qualon 2021 Beta HCG ( test) Ql Negative [facility] Work Phone: Blood erythrocytes count (nu mber/volume)on 06-08-2022 RBC (Bld) [#/Vol] 4.40 10*6/uL 4.2-5.4 [facility] Work Phone: Blood hemoglobin measurement (mass/volume)on 06-08-2022 Hemoglobin (Bld) [Mass/Vol] 11.0 g/dL 12.0-15.0 [facility] Work Phone: Blood lymphocytes/100 leukoc yteson 06-08-2022 Lymphocytes/100 WBC (Bld) 18.1 % 19-41 [facility] Work Phone: Blood monocytes/100 leukocyt eson 06-08-2022 Monocytes/100 WBC (Bld) 9.0 % 0-10 [facility] Work Phone: Blood platelet mean volumeon 06-08-2022 Platelet mean volume (Bld) [Entitic vol] 10.1 fL 6.2-12.0 [facility] Work Phone: Determination of erythrocyte mean corpuscular volume (MCV)on 06-08-2022 MCV (RBC) [Entitic vol] 78.6 fL 81-99 [facility] Work Phone: Hematocrit Auto (Bld) [Volum e fraction]on 06-08-2022 Hematocrit (Bld) [Volume fraction] 34.6 % 37-47 [facility] Work Phone: INR in Blood by Coagulation assayon 06-08-2022 INR Coag (Bld) [Relative time] 1.2 {INR} [facility] Work Phone: Laboratory - Chemistry and C hemistry - challengeon 06-08-2022 CO2 [Moles/Vol] 25.0 mmol/L 21.0-32.0 [facility] Work Phone: Urea nitrogen/Creatinine [Mass ratio] 12.5 mg/mg 10-20 [facility] Work Phone: Laboratory - Coagulationon 1 08-08-2021 PT Coag (PPP) [Time] 15.0 s 11.7-14.9 [facility] Work Phone: Laboratory - Drug toxicology on 06-08-2022 Amphetamines Ql (U) Negative <1000 ng/mL [facility] Work Phone: Benzodiazepines Ql (U) Negative < 200 ng/mL [facility] Work Phone: Cannabinoids Screen Ql (U) Negative < 50 ng/mL [facility] Work Phone: Cocaine Ql (U) Negative < 300 ng/mL [facility] Work Phone: Opiates Ql (U) Negative < 300 ng/mL [facility] Work Phone: Laboratory - Hematology and Cell countson 06-08-2022 Erythrocyte distribution width (RBC) [Entitic vol] 52.0 fL 35.1-43.9 [facility] Work Phone: Erythrocyte distribution width (RBC) [Ratio] 18.3 % 11.6-14.6 [facility] Work Phone: Immature granulocytes/100 WBC (Bld) 0.300 % 0.0-0.9 [facility] Work Phone: Comment on above: IG% - Immature Granu locytes (promyelocytes, myelocytes and metamyelocytes) > 1% indicates that a LEFT SHIFT is Present. MCH (RBC) [Entitic mass] 25.0 pg 27.0-32.0 [facility] Work Phone: Nucleated RBC/100 WBC (Bld) [Ratio] 0 % 0-5 [facility] Work Phone: MCHC Auto (RBC) [Mass/Vol]on 06-08-2022 MCHC (RBC) [Mass/Vol] 31.8 g/dL 32-36 [facility] Work Phone: No Panel Informationon 06-08 MDMA (Ecstasy) Screen Negative < 500 ng/mL [facility] Work Phone: Urine Barbiturates Screen Negative < 200 ng/mL [facility] Work Phone: Urine Drug Screen Comment [facility] Work Phone: Comment on above: CONFIRMATORY [...] Urine Methadone Screen Negative < 300 ng/mL [facility] Work Phone: Estimated Creatinine Clearance Calc 60.46 ml/min [facility] Work Phone: Estimated GFR (MDRD) Amer 86 mL/min >60 [facility] Work Phone: Comment on above: GFR Calc Estimated GFR (MDRD) Non-Af Amer 71 mL/min >60 [facility] Work Phone: Comment on above: Non- GFR Calc Ethyl Alcohol Level < 3.0 mg/dL [facility] Work Phone: Comment on above: The serum:whole bloo d ethanol ratio is approximately 1.14and varies slightly with hematocrit. Medical Alcohol reference interval and critical value innon-tolerant individuals; 50 - 100 Impairment 100 Intoxication 100 - 250 Severe Poisoning 250 - 400 Deep/possible fatal coma Troponin I High Sensitivity 12 pg/mL 3.0-54.0 [facility] Work Phone: Comment on above: Please Note: New Lary t Units and Gender Specific Reference Ranges. For more information see Policy Stat Procedure [place] High Sensitivity Troponin (TNIH) and attachments. Platelets bldon 06-08-2022 Platelets (Bld) [#/Vol] 262 10*3/uL 150-450 [facility] Work Phone: Serum or plasma calcium juli urement (mass/volume)on 06-08-2022 Calcium [Mass/Vol] 9.3 mg/dL 8.5-10.1 [facility] Work Phone: Serum or plasma creatinine m easurement (mass/volume)on 06-08-2022 Creatinine [Mass/Vol] 0.88 mg/dL 0.55-1.02 [facility] Work Phone: Comment on above: The validity of the calculated GFR & GFRAA in patients over 70 years has not been determined. Clinical correlation is essential. Serum or plasma urea nitroge n measurement (mass/volume)on 06-08-2022 Urea nitrogen [Mass/Vol] 11 mg/dL 7-18 [facility] Work Phone: Thin prep Papanicolaou smear with manual screeningon 06-08-2022 Thin prep Papanicolaou smear with manual screening 5 5-15 [facility] Work Phone: Urine phencyclidine (PCP) de tectionon 06-08-2022 Phencyclidine Ql (U) Negative < 25 ng/mL [facility] Work Phone: No Panel Informationon 06-06 INR International Normalized Ratio 2.0 [facility] Work Phone: No Panel Informationon 06-01 INR International Normalized Ratio 4.6 [facility] Work Phone: Absolute lymphocyte counton 02-23-2022 Lymphocytes Auto (Unsp spec) [#/Vol] 1.58 10*3/uL 0.83-4.51 [facility] Work Phone: Basophil percentageon 2021 Basophils/100 WBC (Bld) 0.6 % 0-1 [facility] Work Phone: Chloride [Moles/Vol] 110 mmol/L 98-107 [facility] Work Phone: [phone] Eosinophils/100 WBC (Bld) 4.0 % 0-5 [facility] Work Phone: Glucose [Mass/Vol] 98 mg/dL 74-106 [facility] Work Phone: [phone] Neutrophils (Bld) [#/Vol] 3.6 10*3/uL 2.0-7.7 [facility] Work Phone: [phone] Neutrophils/100 WBC (Bld) 57.6 % 47-70 [facility] Work Phone: [phone] Potassium [Moles/Vol] 3.8 mmol/L 3.5-5.1 [facility] Work Phone: [phone] Sodium [Moles/Vol] 143 mmol/L 136-145 [facility] Work Phone: [phone] WBC (Bld) [#/Vol] 6.2 10*3/uL 4.4-11.0 [facility] Work Phone: [phone] Blood erythrocytes count (nu mber/volume)on 02-23-2022 RBC (Bld) [#/Vol] 2.49 10*6/uL 4.2-5.4 [facility] Work Phone: Blood hemoglobin measurement (mass/volume)on 02-23-2022 Hemoglobin (Bld) [Mass/Vol] 7.7 g/dL 12.0-15.0 [facility] Work Phone: [phone] Blood lymphocytes/100 leukoc yteson 02-23-2022 Lymphocytes/100 WBC (Bld) 25.3 % 19-41 [facility] Work Phone: [phone] Blood manual differential co mment interpretation (narrative result)on 02-23-2022 Manual differential comment Jose M (Bld) [Interp] SCANNED [facility] Work Phone: Blood monocytes/100 leukocyt eson 02-23-2022 Monocytes/100 WBC (Bld) 10.7 % 0-10 [facility] Work Phone: Blood platelet mean volumeon 02-23-2022 Platelet mean volume (Bld) [Entitic vol] 8.8 fL 6.2-12.0 [facility] Work Phone: Blood polychromasia detectio n by light microscopyon 02-23-2022 Polychromasia LM Ql (Bld) RARE [facility] Work Phone: Determination of erythrocyte mean corpuscular volume (MCV)on 02-23-2022 MCV (RBC) [Entitic vol] 93.6 fL 81-99 [facility] Work Phone: Hematocrit Auto (Bld) [Volum e fraction]on 02-23-2022 Hematocrit (Bld) [Volume fraction] 23.3 % 37-47 [facility] Work Phone: Hypochromatic red blood cell detectionon 02-23-2022 Hypochromia Ql (Bld) 1+ [facility] Work Phone: Laboratory - Chemistry and C hemistry - challengeon 02-23-2022 CO2 [Moles/Vol] 29.0 mmol/L 21.0-32.0 [facility] Work Phone: Urea nitrogen/Creatinine [Mass ratio] 18.7 mg/mg - [facility] Work Phone: Laboratory - Hematology and Cell countson 02-23-2022 Erythrocyte distribution width (RBC) [Entitic vol] 47.9 fL 35.1-43.9 [facility] Work Phone: Erythrocyte distribution width (RBC) [Ratio] 14.3 % 11.6-14.6 [facility] Work Phone: Immature granulocytes/100 WBC (Bld) 1.800 % 0.0-0.9 [facility] Work Phone: Comment on above: IG% - Immature Granu locytes (promyelocytes, myelocytes and metamyelocytes) > 1% indicates that a LEFT SHIFT is Present. MCH (RBC) [Entitic mass] 30.9 pg 27.0-32.0 [facility] Work Phone: Nucleated RBC/100 WBC (Bld) [Ratio] 0.3 % 0-5 [facility] Work Phone: MCHC Auto (RBC) [Mass/Vol]on 02-23-2022 MCHC (RBC) [Mass/Vol] 33.0 g/dL 32-36 [facility] Work Phone: No Panel Informationon 02-23 Atypical Lymphocytes RARE % [facility] Work Phone: Estimated Creatinine Clearance Calc 64.71 ml/min [facility] Work Phone: Estimated GFR (MDRD) Amer 104 mL/min >60 [facility] Work Phone: Comment on above: GFR Calc Estimated GFR (MDRD) Non-Af Amer 86 mL/min >60 [facility] Work Phone: Comment on above: Non- GFR Calc Platelets bldon 02-23-2022 Platelets (Bld) [#/Vol] 304 10*3/uL 150-450 [facility] Work Phone: Serum or plasma calcium juli urement (mass/volume)on 02-23-2022 Calcium [Mass/Vol] 8.4 mg/dL 8.5-10.1 [facility] Work Phone: Serum or plasma creatinine m easurement (mass/volume)on 02-23-2022 Creatinine [Mass/Vol] 0.75 mg/dL 0.55-1.02 [facility] Work Phone: Comment on above: The validity of the calculated GFR & GFRAA in patients over 70 years has not been determined. Clinical correlation is essential. Serum or plasma urea nitroge n measurement (mass/volume)on 02-23-2022 Urea nitrogen [Mass/Vol] 14 mg/dL 7-18 [facility] Work Phone: Thin prep Papanicolaou smear with manual screeningon 02-23-2022 Thin prep Papanicolaou smear with manual screening 4 5-15 [facility] Work Phone: INR in Blood by Coagulation assayon 02-20-2022 INR Coag (Bld) [Relative time] 2.3 {INR} [facility] Work Phone: Laboratory - Coagulationon 0 02-20-2022 PT Coag (PPP) [Time] 24.8 s 11.7-14.9 [facility] Work Phone: Vancomycin troughon 02-19-20 Vancomycin trough [Mass/Vol] 6.0 ug/mL 5.0-15.0 [facility] Work Phone: Comment on above: VANCOMYCIN STANDARED DRUG THERAPY TROUGH LEVEL: 5.0 - 15.0 mg/L VANCOMYCIN HIGH INTENSITY THERAPY TROUGH LEVEL: 15.0 - 20.0 mg/L High Intensity therapy recommended for serious lifethreatening infections include:- Pcgclgfsfs-Tirjalqvyonc-Vhrabuypb (Ventilator/Healtcare Associated)-Sepsis PLEASE CONTACT PHARMACY SERVICES (#[id number]) FOR INTERPRETATIONOF RESULTS. Basophil percentageon 2021 Basophil percentage 3.5 mg/dL 2.5-4.9 [facility] Work Phone: Bilirubin [Mass/Vol] 0.30 mg/dL 0.20-1.00 [facility] Work Phone: Comment on above: For patients on eltr ombopag therapy, use of Dimension [place] TBIL is not recommended. Protein [Mass/Vol] 5.3 g/dL 6.4-8.2 [facility] Work Phone: Direct bilirubinon 2 Bilirubin.direct [Mass/Vol] 0.14 mg/dL 0.00-0.30 [facility] Work Phone: Laboratory - Chemistry and C hemistry - challengeon 02-17-2022 ALP [Catalytic activity/Vol] 117 U/L 45-117 [facility] Work Phone: ALT [Catalytic activity/Vol] 46 U/L 13-56 [facility] Work Phone: Free T4 [Mass/Vol] 0.87 ng/dL 0.76-1.46 [facility] Work Phone: Globulin (S) [Mass/Vol] 2.6 g/dL 2.2-4.2 [facility] Work Phone: Magnesium [Mass/Vol] 1.9 mg/dL 1.6-2.6 [facility] Work Phone: No Panel Informationon 02-17 Thyroid Stimulating Hormone (TSH) 0.15 uIU/mL 0.358-3.74 [facility] Work Phone: Serum or plasma albumin juli urement (mass/volume)on 02-17-2022 Albumin [Mass/Vol] 2.7 g/dL 3.2-5.0 [facility] Work Phone: Thin prep Papanicolaou smear with manual screeningon 02-17-2022 Thin prep Papanicolaou smear with manual screening 145 U/L 15-37 [facility] Work Phone: Absolute lymphocyte counton 02-16-2022 Lymphocytes Auto (Unsp spec) [#/Vol] 0.57 10*3/uL 0.83-4.51 [facility] Work Phone: Assessment of wrist artery p atency prior to arterial punctureon 02-16-2022 Arterial patency Wrist artery --pre arterial puncture Positive [facility] Work Phone: Base excesson 02-16-2022 Base excess Calc (BldV) [Moles/Vol] -10 mmol/L -2-2 [facility] Work Phone: Basophil percentageon 2021 Lactate [Moles/Vol] 1.7 mmol/L 0.4-2.0 [facility]: Basophil percentage 15.4 mmol/L 22-26 [facility]: Basophils/100 WBC (Bld) 95 % 95-99 [facility] Work Phone: Basophil percentage 0-5 SEEN /hpf 0-[address] [facility] Work Phone: Bilirubin [Mass/Vol] 0.50 mg/dL 0.20-1.00 [facility] Work Phone: Comment on above: For patients on eltr ombopag therapy, use of Dimension [place] TBIL is not recommended. Chloride [Moles/Vol] 106 mmol/L 98-107 [facility] Work Phone: Glucose [Mass/Vol] 99 mg/dL 74-106 [facility] Work Phone: Potassium [Moles/Vol] 4.9 mmol/L 3.5-5.1 [facility] Work Phone: Protein [Mass/Vol] 6.8 g/dL 6.4-8.2 [facility] Work Phone: Sodium [Moles/Vol] 135 mmol/L 136-145 [facility] Work Phone: Basophils/100 WBC (Bld) 0.2 % 0-1 [facility] Work Phone: [phone] Eosinophils/100 WBC (Bld) 0.0 % 0-5 [facility] Work Phone: Lactate [Moles/Vol] 3.1 mmol/L 0.4-2.0 [facility] Work Phone: Comment on above: Critical Result(s) C alled at: 13:54:29 02/16/2022 by: Amber Aparicio. Results read back by same. Neutrophils (Bld) [#/Vol] 11.7 10*3/uL 2.0-7.7 [facility] Work Phone: Neutrophils/100 WBC (Bld) 89.8 % 47-70 [facility] Work Phone: WBC (Bld) [#/Vol] 13.0 10*3/uL 4.4-11.0 [facility] Work Phone: Bilirubin Test strip Ql (U)o n 02-16-2022 Bilirubin Ql (U) 3 mg/dL Negative [facility] Work Phone: Comment on above: COLOR OF URINE MAY A FFECT DIPSTICK RESULTS. Blood erythrocytes count (nu mber/volume)on 02-16-2022 RBC (Bld) [#/Vol] 4.12 10*6/uL 4.2-5.4 [facility] Work Phone: Blood hemoglobin measurement (mass/volume)on 02-16-2022 Hemoglobin (Bld) [Mass/Vol] 12.5 g/dL 12.0-15.0 [facility] Work Phone: Blood lymphocytes/100 leukoc yteson 02-16-2022 Lymphocytes/100 WBC (Bld) 4.4 % 19-41 [facility] Work Phone: Blood monocytes/100 leukocyt eson 02-16-2022 Monocytes/100 WBC (Bld) 4.8 % 0-10 [facility] Work Phone: Blood platelet mean volumeon 02-16-2022 Platelet mean volume (Bld) [Entitic vol] 8.9 fL 6.2-12.0 [facility] Work Phone: CO2 (BldA) [Partial pressure ]on 02-16-2022 CO2 (Bld) [Partial pressure] 27.2 mm[Hg] 35-45 [facility] Work Phone: Determination of erythrocyte mean corpuscular volume (MCV)on 02-16-2022 MCV (RBC) [Entitic vol] 92.2 fL 81-99 [facility] Work Phone: Direct bilirubinon 2 Bilirubin.direct [Mass/Vol] 0.16 mg/dL 0.00-0.30 [facility] Work Phone: Hematocrit Auto (Bld) [Volum e fraction]on 02-16-2022 Hematocrit (Bld) [Volume fraction] 38.0 % 37-47 [facility] Work Phone: [phone] INR in Blood by Coagulation assayon 02-16-2022 INR Coag (Bld) [Relative time] 3.4 {INR} [facility] Work Phone: Ketones Test strip Ql (U)on 02-16-2022 Ketones Ql (U) 5 mg/dl Negative [facility] Work Phone: Laboratory - Chemistry and C hemistry - challengeon 02-16-2022 ALP [Catalytic activity/Vol] 90 U/L 45-117 [facility] Work Phone: ALT [Catalytic activity/Vol] 32 U/L 13-56 [facility] Work Phone: CO2 [Moles/Vol] 23.0 mmol/L 21.0-32.0 [facility] Work Phone: Globulin (S) [Mass/Vol] 3.0 g/dL 2.2-4.2 [facility] Work Phone: Urea nitrogen/Creatinine [Mass ratio] 13.6 mg/mg 10-20 [facility] Work Phone: Laboratory - Coagulationon 0 02-16-2022 PT Coag (PPP) [Time] 34.0 s 11.7-14.9 [facility] Work Phone: Laboratory - Hematology and Cell countson 02-16-2022 Erythrocyte distribution width (RBC) [Entitic vol] 46.2 fL 35.1-43.9 [facility] Work Phone: Erythrocyte distribution width (RBC) [Ratio] 13.6 % 11.6-14.6 [facility] Work Phone: Immature granulocytes/100 WBC (Bld) 0.800 % 0.0-0.9 [facility] Work Phone: Comment on above: IG% - Immature Granu locytes (promyelocytes, myelocytes and metamyelocytes) > 1% indicates that a LEFT SHIFT is Present. MCH (RBC) [Entitic mass] 30.3 pg 27.0-32.0 [facility] Work Phone: Nucleated RBC/100 WBC (Bld) [Ratio] 0 % 0-5 [facility] Work Phone: MCHC Auto (RBC) [Mass/Vol]on 02-16-2022 MCHC (RBC) [Mass/Vol] 32.9 g/dL 32-36 [facility] Work Phone: Mucus LM Ql (Urine sed)on Mucus Ql (Urine sed) 0 SEEN /hpf [facility] Work Phone: Nitrite Test strip Ql (U)on 02-16-2022 Nitrite Ql (U) Positive Negative [facility] Work Phone: No Panel Informationon 02-16 Blood Gas Liter Flow 2.0 /min [facility] Work Phone: Blood Gas Sample Site R Radial [facility] Work Phone: Blood Gas Specimen Type ART [facility] Work Phone: Blood Gas Total CO2 16 mmol/L [facility] Work Phone: Methicillin-Resist S.aureus DNA PCR Negative Negative [facility] Work Phone: Estimated Creatinine Clearance Calc 28.74 ml/min [facility] Work Phone: Estimated GFR (MDRD) Amer 38 mL/min >60 [facility] Work Phone: Comment on above: GFR Calc Estimated GFR (MDRD) Non-Af Amer 32 mL/min >60 [facility] Work Phone: Comment on above: Non- GFR Calc Troponin I High Sensitivity 14 pg/mL 3.0-54.0 [facility] Work Phone: Comment on above: Please Note: New Lary t Units and Gender Specific Reference Ranges. For more information see Policy Stat Procedure Wentworth High Sensitivity Troponin (TNIH) and attachments. Oxygen (BldA) [Partial press ure]on 02-16-2022 Oxygen (Bld) [Partial pressure] 76 mmHG 75-100 [facility] Work Phone: Platelets bldon 02-16-2022 Platelets (Bld) [#/Vol] 335 10*3/uL 150-450 [facility] Work Phone: Protein Test strip Ql (U)on 02-16-2022 Protein Ql (U) 100 mg/dl Negative [facility] Work Phone: Serum or plasma albumin juli urement (mass/volume)on 02-16-2022 Albumin [Mass/Vol] 3.8 g/dL 3.2-5.0 [facility] Work Phone: Serum or plasma calcium juli urement (mass/volume)on 02-16-2022 Calcium [Mass/Vol] 8.9 mg/dL 8.5-10.1 [facility] Work Phone: Serum or plasma creatinine m easurement (mass/volume)on 02-16-2022 Creatinine [Mass/Vol] 1.77 mg/dL 0.55-1.02 [facility] Work Phone: Comment on above: The validity of the calculated GFR & GFRAA in patients over 70 years has not been determined. Clinical correlation is essential. Serum or plasma urea nitroge n measurement (mass/volume)on 02-16-2022 Urea nitrogen [Mass/Vol] 24 mg/dL 7-18 [facility] Work Phone: Squamous epithelial cells de tection in urine sediment by light microscopyon 02-16-2022 Epithelial cells.squamous LM Ql (Urine sed) 0-5 SEEN /hpf 5-10 [facility] Work Phone: Thin prep Papanicolaou smear with manual screeningon 02-16-2022 Thin prep Papanicolaou smear with manual screening 63 U/L 15-37 [facility] Work Phone: Thin prep Papanicolaou smear with manual screening 6 5-15 [facility] Work Phone: Urine blood detectionon 02-04 RBC Ql (U) 250 /ul Negative [facility] Work Phone: RBC Ql (U) 0 SEEN /hpf 0-5 [facility] Work Phone: Urine clarityon 02-16-2022 Clarity (U) Sl. Cloudy Clear [facility] Work Phone: Urine color determinationon 02-16-2022 Color (U) Yellow Yellow [facility] Work Phone: Urine glucose detectionon Glucose Ql (U) Normal mg/dl Normal [facility] Work Phone: Urine leukocyte esterase det ection by dipstickon 02-16-2022 Leukocyte esterase Test strip Ql (U) 100 /ul Negative [facility] Work Phone: Urine pHon 02-16-2022 pH (U) 6.0 [pH] 5.0 - 8.0 [facility] Work Phone: Urine sediment bacteria coun t by microscopy (number/high power field)on 02-16-2022 Bacteria LM.HPF (Urine sed) [#/Area] 0 /[HPF] None Seen [facility] Work Phone: Urine specific gravity measu rementon 02-16-2022 Specific gravity (U) [Rel density] 1.010 1.002-1.030 [facility] Work Phone: Urobilinogen Auto test strip Ql (U)on 02-16-2022 Urobilinogen Ql (U) 4 mg/dl Normal [facility] Work Phone: [phone] pH measurementon 02-16-2022 pH (Unsp spec) 7.36 [pH] 7.35-7.45 [facility] Work Phone: [phone] Absolute lymphocyte counton 12-20-2021 Lymphocytes Auto (Unsp spec) [#/Vol] 1.67 10*3/uL 0.83-4.51 [facility] Work Phone: Basophil percentageon 2021 Basophils/100 WBC (Bld) 1.0 % 0-1 [facility] Work Phone: [phone] Bilirubin [Mass/Vol] 0.40 mg/dL 0.20-1.00 [facility] Work Phone: [phone] Comment on above: For patients on eltr ombopag therapy, use of Dimension [place] TBIL is not recommended. Chloride [Moles/Vol] 110 mmol/L 98-107 [facility] Work Phone: [phone] Eosinophils/100 WBC (Bld) 5.1 % 0-5 [facility] Work Phone: [phone] Glucose [Mass/Vol] 91 mg/dL 74-106 [facility] Work Phone: [phone] Neutrophils (Bld) [#/Vol] 2.7 10*3/uL 2.0-7.7 [facility] Work Phone: [phone] Neutrophils/100 WBC (Bld) 52.6 % 47-70 [facility] Work Phone: [phone] Potassium [Moles/Vol] 4.5 mmol/L 3.5-5.1 [facility] Work Phone: [phone] Protein [Mass/Vol] 5.8 g/dL 6.4-8.2 [facility] Work Phone: [phone] Sodium [Moles/Vol] 139 mmol/L 136-145 [facility] Work Phone: [phone] WBC (Bld) [#/Vol] 5.1 10*3/uL 4.4-11.0 [facility] Work Phone: Blood erythrocytes count (nu mber/volume)on 12-20-2021 RBC (Bld) [#/Vol] 3.43 10*6/uL 4.2-5.4 [facility] Work Phone: Blood hemoglobin measurement (mass/volume)on 12-20-2021 Hemoglobin (Bld) [Mass/Vol] 10.7 g/dL 12.0-15.0 [facility] Work Phone: Blood lymphocytes/100 leukoc yteson 12-20-2021 Lymphocytes/100 WBC (Bld) 32.5 % 19-41 [facility] Work Phone: Blood monocytes/100 leukocyt eson 12-20-2021 Monocytes/100 WBC (Bld) 8.6 % 0-10 [facility] Work Phone: Blood platelet mean volumeon 12-20-2021 Platelet mean volume (Bld) [Entitic vol] 10.3 fL 6.2-12.0 [facility] Work Phone: Determination of erythrocyte mean corpuscular volume (MCV)on 12-20-2021 MCV (RBC) [Entitic vol] 97.4 fL 81-99 [facility] Work Phone: Hematocrit Auto (Bld) [Volum e fraction]on 12-20-2021 Hematocrit (Bld) [Volume fraction] 33.4 % 37-47 [facility] Work Phone: INR in Blood by Coagulation assayon 12-20-2021 INR Coag (Bld) [Relative time] 1.1 {INR} [facility] Work Phone: Laboratory - Chemistry and C hemistry - challengeon 12-20-2021 ALP [Catalytic activity/Vol] 60 U/L 45-117 [facility] Work Phone: ALT [Catalytic activity/Vol] 40 U/L 13-56 [facility] Work Phone: CO2 [Moles/Vol] 25.0 mmol/L 21.0-32.0 [facility] Work Phone: Globulin (S) [Mass/Vol] 2.9 g/dL 2.2-4.2 [facility] Work Phone: Urea nitrogen/Creatinine [Mass ratio] 32.5 mg/mg 10-20 [facility] Work Phone: Laboratory - Coagulationon 0 12-20-2021 PT Coag (PPP) [Time] 14.0 s 11.7-14.9 [facility] Work Phone: Laboratory - Hematology and Cell countson 12-20-2021 Erythrocyte distribution width (RBC) [Entitic vol] 55.8 fL 35.1-43.9 [facility] Work Phone: Erythrocyte distribution width (RBC) [Ratio] 15.5 % 11.6-14.6 [facility] Work Phone: Immature granulocytes/100 WBC (Bld) 0.200 % 0.0-0.9 [facility] Work Phone: Comment on above: IG% - Immature Granu locytes (promyelocytes, myelocytes and metamyelocytes) > 1% indicates that a LEFT SHIFT is Present. MCH (RBC) [Entitic mass] 31.2 pg 27.0-32.0 [facility] Work Phone: Nucleated RBC/100 WBC (Bld) [Ratio] 0 % 0-5 [facility] Work Phone: MCHC Auto (RBC) [Mass/Vol]on 12-20-2021 MCHC (RBC) [Mass/Vol] 32.0 g/dL 32-36 [facility] Work Phone: No Panel Informationon 12-20 Estimated Creatinine Clearance Calc 61.28 ml/min [facility] Work Phone: Estimated GFR (MDRD) Amer 92 mL/min >60 [facility] Work Phone: Comment on above: GFR Calc Estimated GFR (MDRD) Non-Af Amer 76 mL/min >60 [facility] Work Phone: Comment on above: Non- GFR Calc Platelets bldon 12-20-2021 Platelets (Bld) [#/Vol] 242 10*3/uL 150-450 [facility] Work Phone: Serum or plasma albumin juli urement (mass/volume)on 12-20-2021 Albumin [Mass/Vol] 2.9 g/dL 3.2-5.0 [facility] Work Phone: Serum or plasma albumin/glob ulin mass ratioon 12-20-2021 Albumin/Globulin [Mass ratio] 1.0 {ratio} 0.9-2.4 [facility] Work Phone: Serum or plasma calcium juli urement (mass/volume)on 12-20-2021 Calcium [Mass/Vol] 8.6 mg/dL 8.5-10.1 [facility] Work Phone: Serum or plasma creatinine m easurement (mass/volume)on 12-20-2021 Creatinine [Mass/Vol] 0.83 mg/dL 0.55-1.02 [facility] Work Phone: Comment on above: The validity of the calculated GFR & GFRAA in patients over 70 years has not been determined. Clinical correlation is essential. Serum or plasma urea nitroge n measurement (mass/volume)on 12-20-2021 Urea nitrogen [Mass/Vol] 27 mg/dL 7-18 [facility] Work Phone: Thin prep Papanicolaou smear with manual screeningon 12-20-2021 Thin prep Papanicolaou smear with manual screening 25 U/L 15-37 [facility] Work Phone: Thin prep Papanicolaou smear with manual screening 4 5-15 [facility] Work Phone: Basophil percentageon 2021 Bilirubin [Mass/Vol] 0.50 mg/dL 0.20-1.00 [facility] Work Phone: [phone] Comment on above: For patients on eltr ombopag therapy, use of Dimension [place] TBIL is not recommended. Chloride [Moles/Vol] 110 mmol/L 98-107 [facility] Work Phone: [phone] Glucose [Mass/Vol] 86 mg/dL 74-106 [facility] Work Phone: [phone] Potassium [Moles/Vol] 4.1 mmol/L 3.5-5.1 [facility] Work Phone: [phone] Comment on above: Slight Hemolysis, Re sult may be falsely increased. Protein [Mass/Vol] 6.0 g/dL 6.4-8.2 [facility] Work Phone: [phone] Sodium [Moles/Vol] 139 mmol/L 136-145 [facility] Work Phone: [phone] INR in Blood by Coagulation assayon 12-15-2021 INR Coag (Bld) [Relative time] 3.3 {INR} [facility] Work Phone: [phone] Laboratory - Chemistry and C hemistry - challengeon 12-15-2021 ALP [Catalytic activity/Vol] 78 U/L 45-117 [facility] Work Phone: [phone] ALT [Catalytic activity/Vol] 35 U/L 13-56 [facility] Work Phone: [phone] CO2 [Moles/Vol] 22.0 mmol/L 21.0-32.0 [facility] Work Phone: Globulin (S) [Mass/Vol] 3.0 g/dL 2.2-4.2 [facility] Work Phone: [phone] Urea nitrogen/Creatinine [Mass ratio] 27.8 mg/mg 10-20 [facility] Work Phone: Laboratory - Coagulationon 0 12-15-2021 PT Coag (PPP) [Time] 32.9 s 11.7-14.9 [facility] Work Phone: No Panel Informationon 12-15 Estimated Creatinine Clearance Calc 56.52 ml/min [facility] Work Phone: Estimated GFR (MDRD) Amer 84 mL/min >60 [facility] Work Phone: Comment on above: GFR Calc Estimated GFR (MDRD) Non-Af Amer 69 mL/min >60 [facility] Work Phone: Comment on above: Non- GFR Calc Serum or plasma albumin juli urement (mass/volume)on 12-15-2021 Albumin [Mass/Vol] 3.0 g/dL 3.2-5.0 [facility] Work Phone: Serum or plasma albumin/glob ulin mass ratioon 12-15-2021 Albumin/Globulin [Mass ratio] 1.0 {ratio} 0.9-2.4 [facility] Work Phone: Serum or plasma calcium juli urement (mass/volume)on 12-15-2021 Calcium [Mass/Vol] 8.7 mg/dL 8.5-10.1 [facility] Work Phone: Serum or plasma creatinine m easurement (mass/volume)on 12-15-2021 Creatinine [Mass/Vol] 0.90 mg/dL 0.55-1.02 [facility] Work Phone: Comment on above: The validity of the calculated GFR & GFRAA in patients over 70 years has not been determined. Clinical correlation is essential. Serum or plasma urea nitroge n measurement (mass/volume)on 12-15-2021 Urea nitrogen [Mass/Vol] 25 mg/dL 7-18 [facility] Work Phone: Thin prep Papanicolaou smear with manual screeningon 12-15-2021 Thin prep Papanicolaou smear with manual screening 51 U/L 15-37 [facility] Work Phone: Comment on above: Slight Hemolysis, Re sult may be falsely increased. Thin prep Papanicolaou smear with manual screening 7 5-15 [facility] Work Phone: Absolute lymphocyte counton 12-14-2021 Lymphocytes Auto (Unsp spec) [#/Vol] 1.21 10*3/uL 0.83-4.51 [facility] Work Phone: Basophil percentageon 2021 Basophil percentage 10-25 SEEN /hpf 0-5 [facility] Work Phone: Basophils/100 WBC (Bld) 0.6 % 0-1 [facility] Work Phone: Chloride [Moles/Vol] 108 mmol/L 98-107 [facility] Work Phone: Eosinophils/100 WBC (Bld) 1.1 % 0-5 [facility] Work Phone: Glucose [Mass/Vol] 120 mg/dL 74-106 [facility] Work Phone: Comment on above: Fasting Glucose resu lt from 100 to 125 mg/dL suggests IMPAIRED HOMEOSTASIS per A.D.A. criteria. Neutrophils (Bld) [#/Vol] 7.0 10*3/uL 2.0-7.7 [facility] Work Phone: Neutrophils/100 WBC (Bld) 78.0 % 47-70 [facility] Work Phone: Potassium [Moles/Vol] 4.4 mmol/L 3.5-5.1 [facility] Work Phone: Comment on above: Moderate Hemolysis, Result may be falsely increased. Sodium [Moles/Vol] 139 mmol/L 136-145 [facility] Work Phone: [phone] WBC (Bld) [#/Vol] 8.9 10*3/uL 4.4-11.0 [facility] Work Phone: Bilirubin Test strip Ql (U)o n 12-14-2021 Bilirubin Ql (U) 1 mg/dL Negative [facility] Work Phone: Comment on above: COLOR OF URINE MAY A FFECT DIPSTICK RESULTS. Blood erythrocytes count (nu mber/volume)on 12-14-2021 RBC (Bld) [#/Vol] 4.39 10*6/uL 4.2-5.4 [facility] Work Phone: Blood hemoglobin measurement (mass/volume)on 12-14-2021 Hemoglobin (Bld) [Mass/Vol] 13.7 g/dL 12.0-15.0 [facility] Work Phone: Blood lymphocytes/100 leukoc yteson 12-14-2021 Lymphocytes/100 WBC (Bld) 13.5 % 19-41 [facility] Work Phone: Blood monocytes/100 leukocyt eson 12-14-2021 Monocytes/100 WBC (Bld) 6.5 % 0-10 [facility] Work Phone: Blood platelet mean volumeon 12-14-2021 Platelet mean volume (Bld) [Entitic vol] 10.0 fL 6.2-12.0 [facility] Work Phone: Calcium oxalate crystals det ection in urine sediment by light microscopyon 12-14-2021 Calcium oxalate crystals LM Ql (Urine sed) RARE /hpf [facility] Work Phone: Culture, urineon 12-14-2021 Bacteria identified Cx Nom (U) Escherichia coli [facility] Work Phone: Determination of erythrocyte mean corpuscular volume (MCV)on 12-14-2021 MCV (RBC) [Entitic vol] 93.6 fL 81-99 [facility] Work Phone: Hematocrit Auto (Bld) [Volum e fraction]on 12-14-2021 Hematocrit (Bld) [Volume fraction] 41.1 % 37-47 [facility] Work Phone: INR in Blood by Coagulation assayon 12-14-2021 INR Coag (Bld) [Relative time] 5.2 {INR} [facility] Work Phone: Comment on above: CRITICAL VALUE VERIF IED. CALLED TO ARIK COSTELLO ()12/14/21 [address].RESULTS READ BACK BY SAME. Ketones Test strip Ql (U)on 12-14-2021 Ketones Ql (U) 15 mg/dl Negative [facility] Work Phone: Laboratory - Chemistry and C hemistry - challengeon 12-14-2021 CO2 [Moles/Vol] 24.0 mmol/L 21.0-32.0 [facility] Work Phone: Urea nitrogen/Creatinine [Mass ratio] 20.5 mg/mg 10- [facility] Work Phone: Laboratory - Coagulationon 0 12-14-2021 PT Coag (PPP) [Time] 47.4 s 11.7-14.9 [facility] Work Phone: Laboratory - Hematology and Cell countson 12-14-2021 Erythrocyte distribution width (RBC) [Entitic vol] 52.3 fL 35.1-43.9 [facility] Work Phone: Erythrocyte distribution width (RBC) [Ratio] 15.1 % 11.6-14.6 [facility] Work Phone: Immature granulocytes/100 WBC (Bld) 0.300 % 0.0-0.9 [facility] Work Phone: Comment on above: IG% - Immature Granu locytes (promyelocytes, myelocytes and metamyelocytes) > 1% indicates that a LEFT SHIFT is Present. MCH (RBC) [Entitic mass] 31.2 pg 27.0-32.0 [facility] Work Phone: Nucleated RBC/100 WBC (Bld) [Ratio] 0 % 0-5 [facility] Work Phone: MCHC Auto (RBC) [Mass/Vol]on 12-14-2021 MCHC (RBC) [Mass/Vol] 33.3 g/dL 32-36 [facility] Work Phone: Mucus LM Ql (Urine sed)on Mucus Ql (Urine sed) 0 SEEN /hpf [facility] Work Phone: Nitrite Test strip Ql (U)on 12-14-2021 Nitrite Ql (U) Positive Negative [facility] Work Phone: No Panel Informationon 12-14 Estimated Creatinine Clearance Calc 41.69 ml/min [facility] Work Phone: Estimated GFR (MDRD) Amer 59 mL/min >60 [facility] Work Phone: Comment on above: GFR Calc Estimated GFR (MDRD) Non-Af Amer 49 mL/min >60 [facility] Work Phone: Comment on above: Non- GFR Calc Platelets bldon 12-14-2021 Platelets (Bld) [#/Vol] 299 10*3/uL 150-450 [facility] Work Phone: Protein Test strip Ql (U)on 12-14-2021 Protein Ql (U) 30 mg/dl Negative [facility] Work Phone: Serum or plasma calcium juli urement (mass/volume)on 12-14-2021 Calcium [Mass/Vol] 9.4 mg/dL 8.5-10.1 [facility] Work Phone: Serum or plasma creatinine m easurement (mass/volume)on 12-14-2021 Creatinine [Mass/Vol] 1.22 mg/dL 0.55-1.02 [facility] Work Phone: Comment on above: The validity of the calculated GFR & GFRAA in patients over 70 years has not been determined. Clinical correlation is essential. Serum or plasma urea nitroge n measurement (mass/volume)on 12-14-2021 Urea nitrogen [Mass/Vol] 25 mg/dL 7-18 [facility] Work Phone: Squamous epithelial cells de tection in urine sediment by light microscopyon 12-14-2021 Epithelial cells.squamous LM Ql (Urine sed) 0-5 SEEN /hpf 5-10 [facility] Work Phone: Thin prep Papanicolaou smear with manual screeningon 12-14-2021 Thin prep Papanicolaou smear with manual screening 7 5-15 [facility] Work Phone: Urine blood detectionon 12-05 RBC Ql (U) 10 /ul Negative [facility] Work Phone: RBC Ql (U) 0-5 SEEN /hpf 0-5 [facility] Work Phone: Urine clarityon 12-14-2021 Clarity (U) Sl. Cloudy Clear [facility] Work Phone: Urine color determinationon 12-14-2021 Color (U) Yellow Yellow [facility] Work Phone: Urine glucose detectionon Glucose Ql (U) Normal mg/dl Normal [facility] Work Phone: Urine leukocyte esterase det ection by dipstickon 12-14-2021 Leukocyte esterase Test strip Ql (U) 100 /ul Negative [facility] Work Phone: Urine pHon 12-14-2021 pH (U) 5.0 [pH] 5.0 - 8.0 [facility] Work Phone: Urine sediment bacteria coun t by microscopy (number/high power field)on 12-14-2021 Bacteria LM.HPF (Urine sed) [#/Area] 1 /[HPF] None Seen [facility] Work Phone: Urine specific gravity measu rementon 12-14-2021 Specific gravity (U) [Rel density] 1.025 1.002-1.030 [facility] Work Phone: Urobilinogen Auto test strip Ql (U)on 12-14-2021 Urobilinogen Ql (U) 4 mg/dl Normal [facility] Work Phone: INR in Blood by Coagulation assayon 12-13-2021 INR Coag (Bld) [Relative time] 4.2 {INR} [facility] Work Phone: Laboratory - Coagulationon 0 12-13-2021 PT Coag (PPP) [Time] 40.0 s 11.7-14.9 [facility] Work Phone: Whole blood prothrombin time on 12-13-2021 PT Coag (Bld) [Time] 62.0 s 11.7-14.9 [facility] Work Phone: Laboratory - Coagulationon 0 12-10-2021 INR Coag (Bld) [Relative time] 1.6 {INR} [facility] Work Phone: Comment on above: Critical Value > 4.0 Whole blood prothrombin time on 12-10-2021 PT Coag (Bld) [Time] 19.6 s 11.7-14.9 [facility] Work Phone: Absolute lymphocyte counton 12-06-2021 Lymphocytes Auto (Unsp spec) [#/Vol] 1.25 10*3/uL 0.83-4.51 [facility] Work Phone: [phone] Basophil percentageon 2021 Basophils/100 WBC (Bld) 0.6 % 0-1 [facility] Work Phone: Chloride [Moles/Vol] 112 mmol/L 98-107 [facility] Work Phone: Eosinophils/100 WBC (Bld) 1.1 % 0-5 [facility] Work Phone: Glucose [Mass/Vol] 103 mg/dL 74-106 [facility] Work Phone: Comment on above: Fasting Glucose resu lt from 100 to 125 mg/dL suggests IMPAIRED HOMEOSTASIS per A.D.A. criteria. Neutrophils (Bld) [#/Vol] 6.2 10*3/uL 2.0-7.7 [facility] Work Phone: Neutrophils/100 WBC (Bld) 76.8 % 47-70 [facility] Work Phone: Potassium [Moles/Vol] 4.2 mmol/L 3.5-5.1 [facility] Work Phone: Sodium [Moles/Vol] 141 mmol/L 136-145 [facility] Work Phone: WBC (Bld) [#/Vol] 8.1 10*3/uL 4.4-11.0 [facility] Work Phone: Blood erythrocytes count (nu mber/volume)on 12-06-2021 RBC (Bld) [#/Vol] 4.07 10*6/uL 4.2-5.4 [facility]: Blood hemoglobin measurement (mass/volume)on 12-06-2021 Hemoglobin (Bld) [Mass/Vol] 12.6 g/dL 12.0-15.0 [facility] Work Phone: Blood lymphocytes/100 leukoc yteson 12-06-2021 Lymphocytes/100 WBC (Bld) 15.5 % 19-41 [facility] Work Phone: Blood monocytes/100 leukocyt eson 12-06-2021 Monocytes/100 WBC (Bld) 5.8 % 0-10 [facility] Work Phone: Blood platelet mean volumeon 12-06-2021 Platelet mean volume (Bld) [Entitic vol] 9.8 fL 6.2-12.0 [facility] Work Phone: Determination of erythrocyte mean corpuscular volume (MCV)on 12-06-2021 MCV (RBC) [Entitic vol] 94.8 fL 81-99 [facility] Work Phone: Hematocrit Auto (Bld) [Volum e fraction]on 12-06-2021 Hematocrit (Bld) [Volume fraction] 38.6 % 37-47 [facility] Work Phone: INR in Blood by Coagulation assayon 12-06-2021 INR Coag (Bld) [Relative time] 4.3 {INR} [facility] Work Phone: Comment on above: CRITICAL VALUE VERIF IED. CALLED TO YASMANY BLUNT12/06/21 [id number] Jessica Garcia.RESULTS READ BACK BY SAME . Laboratory - Chemistry and C hemistry - challengeon 12-06-2021 CO2 [Moles/Vol] 25.0 mmol/L 21.0-32.0 [facility] Work Phone: Urea nitrogen/Creatinine [Mass ratio] 19.0 mg/mg 10-20 [facility] Work Phone: Laboratory - Coagulationon 0 12-06-2021 PT Coag (PPP) [Time] 40.9 s 11.7-14.9 [facility] Work Phone: Laboratory - Hematology and Cell countson 12-06-2021 Erythrocyte distribution width (RBC) [Entitic vol] 51.8 fL 35.1-43.9 [facility] Work Phone: Erythrocyte distribution width (RBC) [Ratio] 14.9 % 11.6-14.6 [facility] Work Phone: Immature granulocytes/100 WBC (Bld) 0.200 % 0.0-0.9 [facility] Work Phone: Comment on above: IG% - Immature Granu locytes (promyelocytes, myelocytes and metamyelocytes) > 1% indicates that a LEFT SHIFT is Present. MCH (RBC) [Entitic mass] 31.0 pg 27.0-32.0 [facility] Work Phone: Nucleated RBC/100 WBC (Bld) [Ratio] 0 % 0-5 [facility] Work Phone: MCHC Auto (RBC) [Mass/Vol]on 12-06-2021 MCHC (RBC) [Mass/Vol] 32.6 g/dL 32-36 [facility] Work Phone: No Panel Informationon 12-06 Estimated Creatinine Clearance Calc 43.85 ml/min [facility] Work Phone: Estimated GFR (MDRD) Amer 63 mL/min >60 [facility] Work Phone: Comment on above: GFR Calc Estimated GFR (MDRD) Non-Af Amer 52 mL/min >60 [facility] Work Phone: Comment on above: Non- GFR Calc Platelets bldon 12-06-2021 Platelets (Bld) [#/Vol] 279 10*3/uL 150-450 [facility] Work Phone: Serum or plasma calcium juli urement (mass/volume)on 12-06-2021 Calcium [Mass/Vol] 8.7 mg/dL 8.5-10.1 [facility] Work Phone: Serum or plasma creatinine m easurement (mass/volume)on 12-06-2021 Creatinine [Mass/Vol] 1.16 mg/dL 0.55-1.02 [facility] Work Phone: Comment on above: The validity of the calculated GFR & GFRAA in patients over 70 years has not been determined. Clinical correlation is essential. Serum or plasma urea nitroge n measurement (mass/volume)on 12-06-2021 Urea nitrogen [Mass/Vol] 22 mg/dL 7-18 [facility] Work Phone: Thin prep Papanicolaou smear with manual screeningon 12-06-2021 Thin prep Papanicolaou smear with manual screening 4 5-15 [facility] Work Phone: INR in Blood by Coagulation assayon 11-23-2021 INR Coag (Bld) [Relative time] 3.9 {INR} [facility] Work Phone: Laboratory - Coagulationon 0 11-23-2021 PT Coag (PPP) [Time] 38.0 s 11.7-14.9 [facility] Work Phone: Whole blood prothrombin time on 11-23-2021 PT Coag (Bld) [Time] 49.0 s 11.7-14.9 [facility] Work Phone: Laboratory - Coagulationon 0 11-08-2021 INR Coag (Bld) [Relative time] 2.7 {INR} [facility] Work Phone: Comment on above: Critical Value > 4.0 Whole blood prothrombin time on 11-08-2021 PT Coag (Bld) [Time] 31.4 s 11.7-14.9 [facility] Work Phone: INR in Blood by Coagulation assayon 10-29-2021 INR Coag (Bld) [Relative time] 3.7 {INR} [facility] Work Phone: Laboratory - Coagulationon 0 10-29-2021 PT Coag (PPP) [Time] 35.8 s 11.7-14.9 [facility] Work Phone: Whole blood prothrombin time on 10-29-2021 PT Coag (Bld) [Time] 47.5 s 11.7-14.9 [facility] Work Phone: Laboratory - Coagulationon 0 10-01-2021 INR Coag (Bld) [Relative time] 2.3 {INR} [facility] Work Phone: Comment on above: Critical Value > 4.0 Whole blood prothrombin time on 10-01-2021 PT Coag (Bld) [Time] 27.2 s 11.9-14.4 [facility] Work Phone: Laboratory - Coagulationon 0 09-13-2021 INR Coag (Bld) [Relative time] 2.4 {INR} [facility] Work Phone: Comment on above: Critical Value > 4.0 Whole blood prothrombin time on 09-13-2021 PT Coag (Bld) [Time] 27.8 s 11.9-14.4 [facility] Work Phone: Laboratory - Coagulationon 0 08-23-2021 INR Coag (Bld) [Relative time] 2.8 {INR} [facility] Work Phone: Comment on above: Critical Value > 4.0 Whole blood prothrombin time on 08-23-2021 PT Coag (Bld) [Time] 32.2 s 11.9-14.4 [facility] Work Phone: Laboratory - Coagulationon 0 08-09-2021 INR Coag (Bld) [Relative time] 2.3 {INR} [facility] Work Phone: Comment on above: Critical Value > 4.0 Whole blood prothrombin time on 08-09-2021 PT Coag (Bld) [Time] 25.7 s 11.9-14.4 [facility] Work Phone: Basophil percentageon 2020 Chloride [Moles/Vol] 108 mmol/L 98-107 [facility] Work Phone: Glucose [Mass/Vol] 104 mg/dL 74-106 [facility] Work Phone: Comment on above: Fasting Glucose resu lt from 100 to 125 mg/dL suggests IMPAIRED HOMEOSTASIS per A.D.A. criteria.Please note revised GLUCOSE reference range effective 2017. Potassium [Moles/Vol] 4.3 mmol/L 3.5-5.1 [facility] Work Phone: Sodium [Moles/Vol] 139 mmol/L 136-145 [facility] Work Phone: WBC (Bld) [#/Vol] 7.6 10*3/uL 4.4-11.0 [facility] Work Phone: Blood erythrocytes count (nu mber/volume)on 07-22-2021 RBC (Bld) [#/Vol] 4.31 10*6/uL 4.2-5.4 [facility] Work Phone: Blood hemoglobin measurement (mass/volume)on 07-22-2021 Hemoglobin (Bld) [Mass/Vol] 12.7 g/dL 12.0-15.0 [facility] Work Phone: Blood platelet mean volumeon 07-22-2021 Platelet mean volume (Bld) [Entitic vol] 9.4 fL 6.2-12.0 [facility] Work Phone: Determination of erythrocyte mean corpuscular volume (MCV)on 07-22-2021 MCV (RBC) [Entitic vol] 91.4 fL 81-99 [facility] Work Phone: Hematocrit Auto (Bld) [Volum e fraction]on 07-22-2021 Hematocrit (Bld) [Volume fraction] 39.4 % 37-47 [facility] Work Phone: INR in Blood by Coagulation assayon 07-22-2021 INR Coag (Bld) [Relative time] 1.6 {INR} [facility] Work Phone: Laboratory - Chemistry and C hemistry - challengeon 07-22-2021 CO2 [Moles/Vol] 23.0 mmol/L 21.0-32.0 [facility] Work Phone: Magnesium [Mass/Vol] 2.0 mg/dL 1.6-2.6 [facility] Work Phone: Natriuretic peptide B (Bld) [Mass/Vol] 43.8 pg/mL 0-100 [facility] Work Phone: Urea nitrogen/Creatinine [Mass ratio] 11.5 mg/mg 10-20 [facility] Work Phone: Laboratory - Coagulationon 1 09-22-2020 PT Coag (PPP) [Time] 18.6 s 11.7-14.9 [facility] Work Phone: Laboratory - Hematology and Cell countson 07-22-2021 Erythrocyte distribution width (RBC) [Entitic vol] 56.0 fL 35.1-43.9 [facility] Work Phone: Erythrocyte distribution width (RBC) [Ratio] 16.7 % 11.6-14.6 [facility] Work Phone: MCH (RBC) [Entitic mass] 29.5 pg 27.0-32.0 [facility] Work Phone: MCHC Auto (RBC) [Mass/Vol]on 07-22-2021 MCHC (RBC) [Mass/Vol] 32.2 g/dL 32-36 [facility] Work Phone: No Panel Informationon 07-22 Estimated GFR (MDRD) Amer 71 mL/min >60 [facility] Work Phone: Comment on above: GFR Calc Estimated GFR (MDRD) Non-Af Amer 59 mL/min >60 [facility] Work Phone: Comment on above: Non- GFR Calc Thyroid Stimulating Hormone (TSH) 1.00 uIU/mL 0.358-3.74 [facility] Work Phone: Platelets bldon 07-22-2021 Platelets (Bld) [#/Vol] 256 10*3/uL 150-450 [facility] Work Phone: Serum or plasma calcium juli urement (mass/volume)on 07-22-2021 Calcium [Mass/Vol] 8.9 mg/dL 8.5-10.1 [facility] Work Phone: Serum or plasma creatinine m easurement (mass/volume)on 07-22-2021 Creatinine [Mass/Vol] 1.04 mg/dL 0.55-1.02 [facility] Work Phone: Comment on above: The validity of the calculated GFR & GFRAA in patients over 70 years has not been determined. Clinical correlation is essential. Serum or plasma urea nitroge n measurement (mass/volume)on 07-22-2021 Urea nitrogen [Mass/Vol] 12 mg/dL 7-18 [facility] Work Phone: Thin prep Papanicolaou smear with manual screeningon 07-22-2021 Thin prep Papanicolaou smear with manual screening 8 5-15 [facility] Work Phone: Laboratory - Coagulationon 1 09-16-2020 INR Coag (Bld) [Relative time] 3.9 {INR} [facility] Work Phone: Comment on above: Critical Value > 4.0 Whole blood prothrombin time on 07-16-2021 PT Coag (Bld) [Time] 42.4 s 11.9-14.4 [facility] Work Phone: Laboratory - Coagulationon 1 09-07-2020 INR Coag (Bld) [Relative time] 3.0 {INR} [facility] Work Phone: Comment on above: Critical Value > 4.0 Whole blood prothrombin time on 07-07-2021 PT Coag (Bld) [Time] 32.9 s 11.9-14.4 [facility] Work Phone: Prothrombin Timeon 1 INR Coag (PPP) [Relative time] 1.7 {INR} Normal [facility] Comment on above: Performed By: #### P T #### [facility] [address] [place] [address] PT Coag (PPP) [Time] 19.3 s Critically high 12.3-14.9 [facility] Comment on above: Performed By: #### P T #### [facility] [address] [place] [address] Prothrombin Timeon 1 INR Coag (PPP) [Relative time] 1.3 {INR} Normal [facility] Comment on above: Performed By: #### P T #### [facility] [address] [place] [address] PT Coag (PPP) [Time] 16.3 s Critically high 12.3-14.9 [facility] Comment on above: Performed By: #### P T #### [facility] [address] [place] [address] Prothrombin Timeon 1 INR Coag (PPP) [Relative time] 1.6 {INR} Normal [facility] Comment on above: Performed By: #### P T #### [facility] [address] [place] [address] PT Coag (PPP) [Time] 19.0 s Critically high 12.3-14.9 [facility] Comment on above: Performed By: #### P T #### [facility] [address] [place] [address] Liver Panelon 01-30-2021 Albumin [Mass/Vol] 3.9 g/dL Normal 3.5-4.6 [facility] Comment on above: Performed By: #### L IVER #### [facility] [address] [place] [address] ALP [Catalytic activity/Vol] 90 U/L Normal 40-130 [facility] Comment on above: Performed By: #### L IVER #### [facility] [address] [place] [address] ALT [Catalytic activity/Vol] 18 U/L Normal 0-33 [facility] Comment on above: Performed By: #### L IVER #### [facility] [address] [place] [address] AST [Catalytic activity/Vol] 28 U/L Normal 0-35 [facility] Comment on above: Performed By: #### L IVER #### [facility] [address] [place] [address] Bilirubin [Mass/Vol] 2.2 mg/dL Critically high 0.2-0.7 [facility] Comment on above: Performed By: #### L IVER #### [facility] [address] [place] [address] Bilirubin Indirect 1.9 mg/dL Critically high 0.0-0.6 [facility] Comment on above: Performed By: #### L IVER #### [facility] [address] [place] [address] Bilirubin.indirect [Mass/Vol] 0.3 mg/dL Normal 0.0-0.4 [facility] Comment on above: Performed By: #### L IVER #### [facility] [address] [place] [address] Protein [Mass/Vol] 6.5 g/dL Normal 6.3-8.0 [facility] Comment on above: Performed By: #### L IVER #### [facility] [address] [place] [address] Prothrombin Timeon 1 INR Coag (PPP) [Relative time] 2.4 {INR} Normal [facility] Comment on above: Performed By: #### P T #### [facility] [address] [place] [address] PT Coag (PPP) [Time] 25.6 s Critically high 12.3-14.9 [facility] Comment on above: Performed By: #### P T #### [facility] [address] [place] [address] Vitamin B12 and Folateon Cobalamin (Vitamin B12) [Mass/Vol] 1341 pg/mL Critically high 232-1245 [facility] Comment on above: Performed By: #### B 12FO #### [facility] [address] [place] [address] Folate 14.7 ng/mL Normal 7.3-26.1 [facility] Comment on above: Result Comment: As o f 16, the methodology has changed. Results from this methodology should not be compared with results from previous methodology. Performed By: #### B 12FO #### [facility] [address] [place] [address] Vitamin Don 01-30-2021 Vitamin D 20.8 ng/mL Low 30.0-100.0 [facility] Comment on above: Result Comment: (20- 30 ng/mL) Insufficiency This assay accurately quantifies the sum of vitamin D3, 25-Hydroxy and vitamin D2, 25-Hyroxy. Performed By: #### V ITD #### [facility] [address] [place] [address] Basic metabolic 2000 panelon 11-06-2020 Anion gap [Moles/Vol] 12 mmol/L Normal 9-18 [facility] Comment on above: Order Comment: Speci men Type: BLOOD SPECIMEN Performed By: #### 2 4321-2 ####[facility] [id number] [place] [address] Calcium [Mass/Vol] 9.8 mg/dL Normal 8.5-10.2 [facility] Comment on above: Order Comment: Speci men Type: BLOOD SPECIMEN Performed By: #### 2 4321-2 ####[facility] [id number] [place] [address] Chloride [Moles/Vol] 103 mmol/L Normal 97-105 [facility] Comment on above: Order Comment: Speci men Type: BLOOD SPECIMEN Performed By: #### 2 4321-2 ####[facility] [id number] [place] [address] CO2 [Moles/Vol] 22 mmol/L Normal 22-30 [facility] Comment on above: Order Comment: Speci men Type: BLOOD SPECIMEN Performed By: #### 2 4321-2 ####[facility]ORY[facility] [id number] [place] [address] Creatinine [Mass/Vol] 0.96 mg/dL Normal 0.58-0.96 [facility] Comment on above: Order Comment: Speci men Type: BLOOD SPECIMEN Performed By: #### 2 4321-2 ####[facility] [id number] [place] [address] GFR/1.73 sq M.predicted MDRD (S/P/Bld) [Vol rate/Area] mL/min/{1.73_m2} Normal [facility] Comment on above: Order Comment: Speci [...] actual GFR. Performed By: #### 2 4321-2 ####[facility] [id number] [place] [address] Glucose [Mass/Vol] 94 mg/dL Normal 74-99 [facility] Comment on above: Order Comment: Speci men Type: BLOOD SPECIMEN Result Comment: The [place] [employer] (ADA) provides guidance for cutoff [...] Standards of Medical Care in Diabetes 2016, [place] [employer]. Diabetes Care. 2016.39(Suppl 1). Performed By: #### 2 4321-2 ####[facility]ORY[facility]IA [id number] [place] [address] Potassium [Moles/Vol] 4.4 mmol/L Normal 3.7-5.1 [facility] Comment on above: Order Comment: Speci men Type: BLOOD SPECIMEN Performed By: #### 2 4321-2 ####[facility]ORY[facility] [id number] [place] [address] Sodium [Moles/Vol] 137 mmol/L Normal 136-144 [facility] Comment on above: Order Comment: Speci men Type: BLOOD SPECIMEN Performed By: #### 2 4321-2 ####[facility]ORY[facility]IA [id number] [place] [address] Urea nitrogen [Mass/Vol] 19 mg/dL Normal 7-21 [facility] Comment on above: Order Comment: Speci men Type: BLOOD SPECIMEN Performed By: #### 2 4321-2 ####[facility]ORYCLIA [id number] [place] [address] CASE MANAGEMon 11-06-2020 CASE MANAGEM Normal [facility] CASE MGT INIT ASSESon 2020 CASE MGT INIT ASSES Normal [facility] CBC panel Auto (Bld)on 11-06 Erythrocyte distribution width (RBC) [Ratio] 15.1 % High 11.5-15.0 [facility] Comment on above: Order Comment: Speci men Type: BLOOD SPECIMEN Performed By: #### 5 8410-2 ####[facility]ORYCLIA [id number] [place] [address] Hematocrit (Bld) [Volume fraction] 26.8 % Low 36.0-46.0 [facility] Comment on above: Order Comment: Speci men Type: BLOOD SPECIMEN Performed By: #### 5 8410-2 ####[facility]ORYCLIA [id number] [place] [address] Hemoglobin (Bld) [Mass/Vol] 8.9 g/dL Low 11.5-15.5 [facility] Comment on above: Order Comment: Speci men Type: BLOOD SPECIMEN Performed By: #### 5 8410-2 ####[facility]ORYCLIA [id number] [place] [address] MCH (RBC) [Entitic mass] 32.6 pg Normal 26.0-34.0 [facility] Comment on above: Order Comment: Speci men Type: BLOOD SPECIMEN Performed By: #### 5 8410-2 ####[facility]ORYCLIA [id number] [place] [address] MCHC (RBC) [Mass/Vol] 33.2 g/dL Normal 30.5-36.0 [facility] Comment on above: Order Comment: Speci men Type: BLOOD SPECIMEN Performed By: #### 5 8410-2 ####[facility]ORYCLIA [id number] [place] [address] MCV (RBC) [Entitic vol] 98.2 fL Normal 80.0-100.0 [facility] Comment on above: Order Comment: Speci men Type: BLOOD SPECIMEN Performed By: #### 5 8410-2 ####[facility]ORYCLIA [id number] [place] [address] Nucleated RBC (Bld) [#/Vol] 10*3/uL Normal <0.01 [facility] Comment on above: Order Comment: Speci men Type: BLOOD SPECIMEN Performed By: #### 5 8410-2 ####[facility]ORYCLIA [id number] [place] [address] Platelet mean volume (Bld) [Entitic vol] 9.5 fL Normal 9.0-12.7 [facility] Comment on above: Order Comment: Speci men Type: BLOOD SPECIMEN Performed By: #### 5 8410-2 ####[facility] LABORATORYCLIA [id number] [place] [address] Platelets (Bld) [#/Vol] 352 10*3/uL Normal 150-400 [facility] Comment on above: Order Comment: Speci men Type: BLOOD SPECIMEN Performed By: #### 5 8410-2 ####[facility] LABORATORYCLIA [id number] [place] [address] RBC (Bld) [#/Vol] 2.73 10*6/uL Low 3.90-5.20 [facility] Comment on above: Order Comment: Speci men Type: BLOOD SPECIMEN Performed By: #### 5 8410-2 ####[facility] LABORATORYCLIA [id number] [place] [address] WBC (Bld) [#/Vol] 7.51 10*3/uL Normal 3.70-11.00 [facility] Comment on above: Order Comment: Speci men Type: BLOOD SPECIMEN Performed By: #### 5 8410-2 ####[facility] LABORATORYCLIA [id number] [place] [address] CNDSon 11-06-2020 CNDS Normal [facility] CONSULT PROGon 11-06-2020 CONSULT PROG Normal [facility] NURSING PROGon 11-06-2020 NURSING PROG Normal [facility] NUTRITIONon 11-06-2020 NUTRITION Normal [facility] PT panel Coag (PPP)on 2020 INR Coag (PPP) [Relative time] 2.6 {INR} High 0.9-1.3 [facility] Comment on above: Order Comment: Speci men Type: BLOOD SPECIMEN Result Comment: Nicolasa min K Antagonist (VKA) Therapeutic Range: INR 2 to 3 (Target INR of 2.5)Note: For patients treated with VKA drugs, such as warfarin, the [employer] 2012 Guideline recommends [...] al. Chest 2012, 141:7S-47SKunal RA, et al. [facility] 2017, 70: 252-289 Performed By: #### 3 4528-0, 19016-5 ####[facility] LABORATORYCLIA [id number] [place] [address] PT Coag (PPP) [Time] 25.7 s High 9.7-13.0 [facility] Comment on above: Order Comment: Speci men Type: BLOOD SPECIMEN Performed By: #### 3 4528-0, 97072-8 ####[facility] LABORATORYCLIA [id number] [place] [address] aPTT PPPon 11-06-2020 aPTT Coag (PPP) [Time] 36.2 s High 23.0-32.4 [facility] Comment on above: Order Comment: Speci men Type: BLOOD SPECIMEN Performed By: #### 3 4528-0, 13961-0 ####[facility] LABORATORYCLIA [id number] [place] [address] 2019 CORONAVIRUSon SARS-CoV-2 (COVID-19) RNA ANGELINE+probe Ql (Unsp spec) Normal [facility] Comment on above: Performed By: #### C OVID ####[facility] REFERENCE LABCLIA [id number] [place] [address] CBC panel Auto (Bld)on 11-05 Erythrocyte distribution width (RBC) [Ratio] 15.2 % High 11.5-15.0 [facility] Comment on above: Order Comment: Speci men Type: BLOOD SPECIMEN Performed By: #### 5 8410-2 ####[facility] LABORATORYCLIA [id number] [place] [address] Hematocrit (Bld) [Volume fraction] 27.2 % Low 36.0-46.0 [facility] Comment on above: Order Comment: Speci men Type: BLOOD SPECIMEN Performed By: #### 5 8410-2 ####[facility] LABORATORYCLIA [id number] [place] [address] Hemoglobin (Bld) [Mass/Vol] 8.8 g/dL Low 11.5-15.5 [facility] Comment on above: Order Comment: Speci men Type: BLOOD SPECIMEN Performed By: #### 5 8410-2 ####[facility] LABORATORYCLIA [id number] [place] [address] MCH (RBC) [Entitic mass] 32.2 pg Normal 26.0-34.0 [facility] Comment on above: Order Comment: Speci men Type: BLOOD SPECIMEN Performed By: #### 5 8410-2 ####[facility] LABORATORYCLIA [id number] [place] [address] MCHC (RBC) [Mass/Vol] 32.4 g/dL Normal 30.5-36.0 [facility] Comment on above: Order Comment: Speci men Type: BLOOD SPECIMEN Performed By: #### 5 8410-2 ####[facility] LABORATORYCLIA [id number] [place] [address] MCV (RBC) [Entitic vol] 99.6 fL Normal 80.0-100.0 [facility] Comment on above: Order Comment: Speci men Type: BLOOD SPECIMEN Performed By: #### 5 8410-2 ####[facility] LABORATORYCLIA [id number] [place] [address] Nucleated RBC (Bld) [#/Vol] 10*3/uL Normal <0.01 [facility] Comment on above: Order Comment: Speci men Type: BLOOD SPECIMEN Performed By: #### 5 8410-2 ####[facility] LABORATORYCLIA [id number] [place] [address] Platelet mean volume (Bld) [Entitic vol] 9.5 fL Normal 9.0-12.7 [facility] Comment on above: Order Comment: Speci men Type: BLOOD SPECIMEN Performed By: #### 5 8410-2 ####[facility] LABORATORYCLIA [id number] [place] [address] Platelets (Bld) [#/Vol] 355 10*3/uL Normal 150-400 [facility] Comment on above: Order Comment: Speci men Type: BLOOD SPECIMEN Performed By: #### 5 8410-2 ####[facility] LABORATORYCLIA [id number] [place] [address] RBC (Bld) [#/Vol] 2.73 10*6/uL Low 3.90-5.20 [facility] Comment on above: Order Comment: Speci men Type: BLOOD SPECIMEN Performed By: #### 5 8410-2 ####[facility] LABORATORYCLIA [id number] [place] [address] WBC (Bld) [#/Vol] 8.79 10*3/uL Normal 3.70-11.00 [facility] Comment on above: Order Comment: Speci men Type: BLOOD SPECIMEN Performed By: #### 5 8410-2 ####[facility] LABORATORYCLIA [id number] [place] [address] CONSULT PROGon 11-05-2020 CONSULT PROG Normal [facility] NURSING PROGon 11-05-2020 NURSING PROG Normal [facility] PT panel Coag (PPP)on 2020 INR Coag (PPP) [Relative time] 2.0 {INR} High 0.9-1.3 [facility] Comment on above: Order Comment: Speci men Type: BLOOD SPECIMEN Result Comment: Nicolasa min K Antagonist (VKA) Therapeutic Range: INR 2 to 3 (Target INR of 2.5)Note: For patients treated with VKA drugs, such as warfarin, the [employer] 2012 Guideline recommends [...] al. Chest 2012, 141:7S-47SKunal RA, et al. [facility] 2017, 70: 252-289 Performed By: #### 3 4528-0, 05548-2 ####[facility] LABORATORYCLIA [id number] [place] [address] PT Coag (PPP) [Time] 20.1 s High 9.7-13.0 [facility] Comment on above: Order Comment: Speci men Type: BLOOD SPECIMEN Performed By: #### 3 4528-0, 18437-1 ####[facility] LABORATORYCLIA [id number] [place] [address] THERAPY NTon 11-05-2020 THERAPY NT Normal [facility] aPTT PPPon 11-05-2020 aPTT Coag (PPP) [Time] 58.7 s High 23.0-32.4 [facility] Comment on above: Order Comment: Speci men Type: BLOOD SPECIMEN Performed By: #### 3 4528-0, 49727-2 ####[facility] LABORATORYCLIA [id number] [place] [address] BLASTOMYCES ANTIGENon 2020 BLASTOMYCES AG Not detected Normal [facility] Comment on above: Order Comment: Speci men Type: BLOOD SPECIMEN Performed By: #### B LAS ####[facility] LABCLIA [id number] [place] BLASTOMYCES AG INTERP Negative Normal [facility] Comment on above: Order Comment: Speci men Type: BLOOD SPECIMEN Result Comment: See detailed report in Epic Performed By: #### B LAS ####[facility] LABCLIA [id number] [place] Specimen type Nom (Spec) Urine Normal [facility] Comment on above: Order Comment: Speci men Type: BLOOD SPECIMEN Performed By: #### B LAS ####[facility] LABCLIA [id number] [place], [place] Basic metabolic 2000 panelon 11-04-2020 Anion gap [Moles/Vol] 9 mmol/L Normal 9-18 [facility] Comment on above: Order Comment: Speci men Type: BLOOD SPECIMEN Performed By: #### 2 4321-2, ####[facility]ORATORYCLIA [id number] [place] [address] Calcium [Mass/Vol] 9.3 mg/dL Normal 8.5-10.2 [facility] Comment on above: Order Comment: Speci men Type: BLOOD SPECIMEN Performed By: #### 2 4321-2, ####[facility]ORATORYCLIA [id number] [place] [address] Chloride [Moles/Vol] 104 mmol/L Normal 97-105 [facility] Comment on above: Order Comment: Speci men Type: BLOOD SPECIMEN Performed By: #### 2 4320-2, ####[facility] LABORATORYCLIA [id number] [place] [address] CO2 [Moles/Vol] 25 mmol/L Normal 22-30 [facility] Comment on above: Order Comment: Speci men Type: BLOOD SPECIMEN Performed By: #### 2 4320-2, ####[facility] LABORATORYCLIA [id number] [place] [address] Creatinine [Mass/Vol] 0.85 mg/dL Normal 0.58-0.96 [facility] Comment on above: Order Comment: Speci men Type: BLOOD SPECIMEN Performed By: #### 2 4320-2, ####[facility] LABORATORYCLIA [id number] [place] [address] GFR/1.73 sq M.predicted MDRD (S/P/Bld) [Vol rate/Area] mL/min/{1.73_m2} Normal [facility] Comment on above: Order Comment: Speci [...] reflect actual GFR. Performed By: #### 2 4320-2, ####[facility] LABORATORYCLIA [id number] [place] [address] Glucose [Mass/Vol] 95 mg/dL Normal 74-99 [facility] Comment on above: Order Comment: Speci men Type: BLOOD SPECIMEN Result Comment: The [place] (ADA) provides guidance for cutoff [...] Standards of Medical Care in Diabetes 2016, [place] [employer]. Diabetes Care. 2016.39(Suppl 1). Performed By: #### 2 1-2, ####[facility] LABORATORYCLIA [id number] [place] [address] Potassium [Moles/Vol] 4.8 mmol/L Normal 3.7-5.1 [facility] Comment on above: Order Comment: Speci men Type: BLOOD SPECIMEN Performed By: #### 2 4320-09, ####[facility] LABORATORYCLIA [id number] [place] [address] Sodium [Moles/Vol] 138 mmol/L Normal 136-144 [facility] Comment on above: Order Comment: Speci men Type: BLOOD SPECIMEN Performed By: #### 2 4320-2, ####[facility] LABORATORYCLIA [id number] [place] [address] Urea nitrogen [Mass/Vol] 12 mg/dL Normal 7-21 [facility] Comment on above: Order Comment: Speci men Type: BLOOD SPECIMEN Performed By: #### 2 2, ####[facility] LABORATORYCLIA [id number] [place] [address] CASE MANAGEMon 11-04-2020 CASE MANAGEM Normal [facility] CBC W Auto Differential pane l (Bld)on 11-04-2020 Basophils (Bld) [#/Vol] 0.05 10*3/uL Normal <0.11 [facility] Comment on above: Order Comment: Speci men Type: BLOOD SPECIMEN Performed By: #### 5 7021-8 ####[facility] LABORATORYCLIA [id number] [place] [address] Basophils/100 WBC (Bld) 0.6 % Normal [facility] Comment on above: Order Comment: Speci men Type: BLOOD SPECIMEN Performed By: #### 5 7021-8 ####[facility]ORYCLIA [id number] [place] [address] Differential cell count method Nom (Bld) Auto Normal [facility] Comment on above: Order Comment: Speci men Type: BLOOD SPECIMEN Performed By: #### 5 7021-8 ####[facility]ORATORYCLIA [id number] [place] [address] Eosinophils (Bld) [#/Vol] 0.40 10*3/uL Normal <0.46 [facility] Comment on above: Order Comment: Speci men Type: BLOOD SPECIMEN Performed By: #### 5 7021-8 ####[facility] LABORATORYCLIA [id number] [place] [address] Eosinophils/100 WBC (Bld) 5.0 % Normal [facility] Comment on above: Order Comment: Speci men Type: BLOOD SPECIMEN Performed By: #### 5 7021-8 ####[facility] LABORATORYCLIA [id number] [place] [address] Erythrocyte distribution width (RBC) [Ratio] 14.6 % Normal 11.5-15.0 [facility] Comment on above: Order Comment: Speci men Type: BLOOD SPECIMEN Performed By: #### 5 7021-8 ####[facility]ORATORYCLIA [id number] [place] [address] Hematocrit (Bld) [Volume fraction] 25.6 % Low 36.0-46.0 [facility] Comment on above: Order Comment: Speci men Type: BLOOD SPECIMEN Performed By: #### 5 7021-8 ####[facility]ORATORYCLIA [id number] [place] [address] Hemoglobin (Bld) [Mass/Vol] 8.4 g/dL Low 11.5-15.5 [facility] Comment on above: Order Comment: Speci men Type: BLOOD SPECIMEN Performed By: #### 5 7021-8 ####[facility]ORATORYCLIA [id number] [place] [address] IMMATURE GRAN % 1.0 % Normal [facility] Comment on above: Order Comment: Speci men Type: BLOOD SPECIMEN Performed By: #### 5 7021-8 ####[facility]ORATORYCLIA [id number] [place] [address] IMMATURE GRAN ABS 0.08 k/uL Normal <0.10 [facility] Comment on above: Order Comment: Speci men Type: BLOOD SPECIMEN Performed By: #### 5 7021-8 ####[facility]ORATORYCLIA [id number] [place] [address] Lymphocytes (Bld) [#/Vol] 1.87 10*3/uL Normal 1.00-4.00 [facility] Comment on above: Order Comment: Speci men Type: BLOOD SPECIMEN Performed By: #### 5 7021-8 ####[facility] LABORATORYCLIA [id number] [place] [address] Lymphocytes/100 WBC (Bld) 23.2 % Normal [facility] Comment on above: Order Comment: Speci men Type: BLOOD SPECIMEN Performed By: #### 5 7021-8 ####[facility]ORATORYCLIA [id number] [place] [address] MCH (RBC) [Entitic mass] 32.3 pg Normal 26.0-34.0 [facility] Comment on above: Order Comment: Speci men Type: BLOOD SPECIMEN Performed By: #### 5 7021-8 ####[facility]ORATORYCLIA [id number] [place] [address] MCHC (RBC) [Mass/Vol] 32.8 g/dL Normal 30.5-36.0 [facility] Comment on above: Order Comment: Speci men Type: BLOOD SPECIMEN Performed By: #### 5 7021-8 ####[facility]ORATORYCLIA [id number] [place] [address] MCV (RBC) [Entitic vol] 98.5 fL Normal 80.0-100.0 [facility] Comment on above: Order Comment: Speci men Type: BLOOD SPECIMEN Performed By: #### 5 7021-8 ####[facility]ORATORYCLIA [id number] [place] [address] Monocytes (Bld) [#/Vol] 0.54 10*3/uL Normal <0.87 [facility] Comment on above: Order Comment: Speci men Type: BLOOD SPECIMEN Performed By: #### 5 7021-8 ####[facility]ORATORYCLIA [id number] [place] [address] Monocytes/100 WBC (Bld) 6.7 % Normal [facility] Comment on above: Order Comment: Speci men Type: BLOOD SPECIMEN Performed By: #### 5 7021-8 ####[facility]ORATORYCLIA [id number] [place] [address] Neutrophils (Bld) [#/Vol] 5.11 10*3/uL Normal 1.45-7.50 [facility] Comment on above: Order Comment: Speci men Type: BLOOD SPECIMEN Performed By: #### 5 7021-8 ####[facility]ORATORYCLIA [id number] [place] [address] Neutrophils/100 WBC (Bld) 63.5 % Normal [facility] Comment on above: Order Comment: Speci men Type: BLOOD SPECIMEN Performed By: #### 5 7021-8 ####[facility]ORATORYCLIA [id number] [place] [address] Nucleated RBC (Bld) [#/Vol] 10*3/uL Normal <0.01 [facility] Comment on above: Order Comment: Speci men Type: BLOOD SPECIMEN Performed By: #### 5 7021-8 ####[facility]ORATORYCLIA [id number] [place] [address] Nucleated RBC/100 WBC (Bld) [Ratio] 0.0 /100 WBC Normal 0.0 [facility] Comment on above: Order Comment: Speci men Type: BLOOD SPECIMEN Performed By: #### 5 7021-8 ####[facility] LABORATORYCLIA [id number] [place] [address] Platelet mean volume (Bld) [Entitic vol] 9.3 fL Normal 9.0-12.7 [facility] Comment on above: Order Comment: Speci men Type: BLOOD SPECIMEN Performed By: #### 5 7021-8 ####[facility] LABORATORYCLIA [id number] [place] [address] Platelets (Bld) [#/Vol] 343 10*3/uL Normal 150-400 [facility] Comment on above: Order Comment: Speci men Type: BLOOD SPECIMEN Performed By: #### 5 7021-8 ####[facility] LABORATORYCLIA [id number] [place] [address] RBC (Bld) [#/Vol] 2.60 10*6/uL Low 3.90-5.20 [facility] Comment on above: Order Comment: Speci men Type: BLOOD SPECIMEN Performed By: #### 5 7021-8 ####[facility] LABORATORYCLIA [id number] [place] [address] WBC (Bld) [#/Vol] 8.05 10*3/uL Normal 3.70-11.00 [facility] Comment on above: Order Comment: Speci men Type: BLOOD SPECIMEN Performed By: #### 5 7021-8 ####[facility] LABORATORYCLIA [id number] [place] [address] HEMATOCRIT (HCT)on 1 Hematocrit (Bld) [Volume fraction] 27.0 % Low 36.0-46.0 [facility] Comment on above: Order Comment: Speci men Type: BLOOD SPECIMEN Performed By: #### H CT, HGB ####[facility] LABORATORYCLIA [id number] [place] [address] HEMOGLOBIN (HGB)on 1 Hemoglobin (Bld) [Mass/Vol] 8.8 g/dL Low 11.5-15.5 [facility] Comment on above: Order Comment: Speci men Type: BLOOD SPECIMEN Performed By: #### H CT, HGB ####[facility] LABORATORYCLIA [id number] [place] [address] Magnesium SerPl-mCncon 11-04 Magnesium [Mass/Vol] 1.7 mg/dL Normal 1.7-2.3 [facility] Comment on above: Order Comment: Speci men Type: BLOOD SPECIMEN Performed By: #### 2 4321-2, 42173-0 ####[facility] LABORATORYCLIA [id number] [place] [address] PT panel Coag (PPP)on 2020 INR Coag (PPP) [Relative time] 1.6 {INR} High 0.9-1.3 [facility] Comment on above: Order Comment: Speci men Type: BLOOD SPECIMEN Result Comment: Nicolasa min K Antagonist (VKA) Therapeutic Range: INR 2 to 3 (Target INR of 2.5)Note: For patients treated with VKA drugs, such as warfarin, the [place] [employer] 2012 Guideline recommends [...] al. Chest 2012, 141:7S-47SKunal RA, et al. [facility] 2017, 70: 252-289 Performed By: #### 3 4528-0, 31460-9 ####[facility] LABORATORYCLIA [id number] [place] [address] PT Coag (PPP) [Time] 16.6 s High 9.7-13.0 [facility] Comment on above: Order Comment: Speci men Type: BLOOD SPECIMEN Performed By: #### 3 4528-0, 83037-3 ####[facility]ORATORYCLIA [id number] [place] [address] THERAPY NTon 11-04-2020 THERAPY NT Normal [facility] aPTT PPPon 11-04-2020 aPTT Coag (PPP) [Time] 55.3 s High 23.0-32.4 [facility] Comment on above: Order Comment: Speci men Type: BLOOD SPECIMEN Performed By: #### 3 4528-0, 56604-9 ####[facility]ORATORYCLIA [id number] [place] [address] aPTT Coag (PPP) [Time] 52.4 s High 23.0-32.4 [facility] Comment on above: Order Comment: Speci men Type: BLOOD SPECIMEN Performed By: #### 1 4979-9 ####[facility] LABORATORYCLIA [id number] [place] [address] ALLIED HEALTHon 11-03-2020 ALLIED HEALTH Normal [facility] Basic metabolic 2000 panelon 11-03-2020 Anion gap [Moles/Vol] 11 mmol/L Normal 9-18 [facility] Comment on above: Order Comment: Speci men Type: BLOOD SPECIMEN Performed By: #### 2 4321-2, ####[facility] LABORATORYCLIA [id number] [place] [address] Calcium [Mass/Vol] 9.3 mg/dL Normal 8.5-10.2 [facility] Comment on above: Order Comment: Speci men Type: BLOOD SPECIMEN Performed By: #### 2 4321-2, ####[facility]ORATORYCLIA [id number] [place] [address] Chloride [Moles/Vol] 102 mmol/L Normal 97-105 [facility] Comment on above: Order Comment: Speci men Type: BLOOD SPECIMEN Performed By: #### 2 4321-2, ####[facility]ORATORYCLIA [id number] [place] [address] CO2 [Moles/Vol] 23 mmol/L Normal 22-30 [facility] Comment on above: Order Comment: Speci men Type: BLOOD SPECIMEN Performed By: #### 2 4321-2, ####[facility] LABORATORYCLIA [id number] [place] [address] Creatinine [Mass/Vol] 0.82 mg/dL Normal 0.58-0.96 [facility] Comment on above: Order Comment: Speci men Type: BLOOD SPECIMEN Performed By: #### 2 4321-2, ####[facility] LABORATORYCLIA [id number] [place] [address] GFR/1.73 sq M.predicted MDRD (S/P/Bld) [Vol rate/Area] mL/min/{1.73_m2} Normal [facility] Comment on above: Order Comment: Speci [...] actual GFR. Performed By: #### 2 4321-2, ####[facility] LABORATORYCLIA [id number] [place] [address] Glucose [Mass/Vol] 101 mg/dL High 74-99 [facility] Comment on above: Order Comment: Speci [facility] Type: BLOOD SPECIMEN Result Comment: The [place] [employer] (ADA) provides guidance for cutoff [...] Standards of Medical Care in Diabetes 2016, [place] [employer]. Diabetes Care. 2016.39(Suppl 1). Performed By: #### 2 4321-2, 55094-4 ####[facility] LABORATORYCLIA [id number] [place] [address] Potassium [Moles/Vol] 4.4 mmol/L Normal 3.7-5.1 [facility] Comment on above: Order Comment: Speci men Type: BLOOD SPECIMEN Performed By: #### 2 1-2, ####[facility] LABORATORYCLIA [id number] [place] [address] Sodium [Moles/Vol] 136 mmol/L Normal 136-144 [facility] Comment on above: Order Comment: Speci men Type: BLOOD SPECIMEN Performed By: #### 2 4320-2, ####[facility] LABORATORYCLIA [id number] [place] [address] Urea nitrogen [Mass/Vol] 9 mg/dL Normal 7-21 [facility] Comment on above: Order Comment: Speci men Type: BLOOD SPECIMEN Performed By: #### 2 4320-2, ####[facility] LABORATORYCLIA [id number] [place] [address] CBC W Auto Differential pane l (Bld)on 11-03-2020 Basophils (Bld) [#/Vol] 0.08 10*3/uL Normal <0.11 [facility] Comment on above: Order Comment: Speci men Type: BLOOD SPECIMEN Performed By: #### 5 7021-8 ####[facility] LABORATORYCLIA [id number] [place] [address] Basophils/100 WBC (Bld) 0.9 % Normal [facility] Comment on above: Order Comment: Speci men Type: BLOOD SPECIMEN Performed By: #### 5 7021-8 ####[facility] LABORATORYCLIA [id number] [place] [address] Differential cell count method Nom (Bld) Auto Normal [facility] Comment on above: Order Comment: Speci men Type: BLOOD SPECIMEN Performed By: #### 5 7021-8 ####[facility] LABORATORYCLIA [id number] [place] [address] Eosinophils (Bld) [#/Vol] 0.50 10*3/uL High <0.46 [facility] Comment on above: Order Comment: Speci men Type: BLOOD SPECIMEN Performed By: #### 5 7021-8 ####[facility] LABORATORYCLIA [id number] [place] [address] Eosinophils/100 WBC (Bld) 5.4 % Normal [facility] Comment on above: Order Comment: Speci men Type: BLOOD SPECIMEN Performed By: #### 5 7021-8 ####[facility]ORATORYCLIA [id number] [place] [address] Erythrocyte distribution width (RBC) [Ratio] 14.4 % Normal 11.5-15.0 [facility] Comment on above: Order Comment: Speci men Type: BLOOD SPECIMEN Performed By: #### 5 7021-8 ####[facility] LABORATORYCLIA [id number] [place] [address] Hematocrit (Bld) [Volume fraction] 28.1 % Low 36.0-46.0 [facility] Comment on above: Order Comment: Speci men Type: BLOOD SPECIMEN Performed By: #### 5 7021-8 ####[facility] LABORATORYCLIA [id number] [place] [address] Hemoglobin (Bld) [Mass/Vol] 8.9 g/dL Low 11.5-15.5 [facility] Comment on above: Order Comment: Speci men Type: BLOOD SPECIMEN Performed By: #### 5 7021-8 ####[facility]ORATORYCLIA [id number] [place] [address] IMMATURE GRAN % 0.8 % Normal [facility] Comment on above: Order Comment: Speci men Type: BLOOD SPECIMEN Performed By: #### 5 7021-8 ####[facility]ORATORYCLIA [id number] [place] [address] IMMATURE GRAN ABS 0.07 k/uL Normal <0.10 [facility] Comment on above: Order Comment: Speci men Type: BLOOD SPECIMEN Performed By: #### 5 7021-8 ####[facility] LABORATORYCLIA [id number] [place] [address] Lymphocytes (Bld) [#/Vol] 2.35 10*3/uL Normal 1.00-4.00 [facility] Comment on above: Order Comment: Speci men Type: BLOOD SPECIMEN Performed By: #### 5 7021-8 ####[facility] LABORATORYCLIA [id number] [place] [address] Lymphocytes/100 WBC (Bld) 25.3 % Normal [facility] Comment on above: Order Comment: Speci men Type: BLOOD SPECIMEN Performed By: #### 5 7021-8 ####[facility] LABORATORYCLIA [id number] [place] [address] MCH (RBC) [Entitic mass] 32.0 pg Normal 26.0-34.0 [facility] Comment on above: Order Comment: Speci men Type: BLOOD SPECIMEN Performed By: #### 5 7021-8 ####[facility] LABORATORYCLIA [id number] [place] [address] MCHC (RBC) [Mass/Vol] 31.7 g/dL Normal 30.5-36.0 [facility] Comment on above: Order Comment: Speci men Type: BLOOD SPECIMEN Performed By: #### 5 7021-8 ####[facility] LABORATORYCLIA [id number] [place] [address] MCV (RBC) [Entitic vol] 101.1 fL High 80.0-100.0 [facility] Comment on above: Order Comment: Speci men Type: BLOOD SPECIMEN Performed By: #### 5 7021-8 ####[facility] LABORATORYCLIA [id number] [place] [address] Monocytes (Bld) [#/Vol] 0.58 10*3/uL Normal <0.87 [facility] Comment on above: Order Comment: Speci men Type: BLOOD SPECIMEN Performed By: #### 5 7021-8 ####[facility]ORATORYCLIA [id number] [place] [address] Monocytes/100 WBC (Bld) 6.3 % Normal [facility] Comment on above: Order Comment: Speci men Type: BLOOD SPECIMEN Performed By: #### 5 7021-8 ####[facility]ATORYCLIA [id number] [place] [address] Neutrophils (Bld) [#/Vol] 5.70 10*3/uL Normal 1.45-7.50 [facility] Comment on above: Order Comment: Speci men Type: BLOOD SPECIMEN Performed By: #### 5 7021-8 ####[facility]ORYCLIA [id number] [place] [address] Neutrophils/100 WBC (Bld) 61.3 % Normal [facility] Comment on above: Order Comment: Speci men Type: BLOOD SPECIMEN Performed By: #### 5 7021-8 ####[facility]ORYCLIA [id number] [place] [address] Nucleated RBC (Bld) [#/Vol] 10*3/uL Normal <0.01 [facility] Comment on above: Order Comment: Speci men Type: BLOOD SPECIMEN Performed By: #### 5 7021-8 ####[facility]ORYCLIA [id number] [place] [address] Nucleated RBC/100 WBC (Bld) [Ratio] 0.0 /100 WBC Normal 0.0 [facility] Comment on above: Order Comment: Speci men Type: BLOOD SPECIMEN Performed By: #### 5 7021-8 ####[facility]ATORYCLIA [id number] [place] [address] Platelet mean volume (Bld) [Entitic vol] 9.5 fL Normal 9.0-12.7 [facility] Comment on above: Order Comment: Speci men Type: BLOOD SPECIMEN Performed By: #### 5 7021-8 ####[facility]ATORYCLIA [id number] [place] [address] Platelets (Bld) [#/Vol] 345 10*3/uL Normal 150-400 [facility] Comment on above: Order Comment: Speci men Type: BLOOD SPECIMEN Performed By: #### 5 7021-8 ####[facility]ATORYCLIA [id number] [place] [address] RBC (Bld) [#/Vol] 2.78 10*6/uL Low 3.90-5.20 [facility] Comment on above: Order Comment: Speci men Type: BLOOD SPECIMEN Performed By: #### 5 7021-8 ####[facility]ATORYCLIA [id number] [place] [address] WBC (Bld) [#/Vol] 9.28 10*3/uL Normal 3.70-11.00 [facility] Comment on above: Order Comment: Speci men Type: BLOOD SPECIMEN Performed By: #### 5 7021-8 ####[facility]ATORYCLIA [id number] [place] [address] Magnesium SerPl-mCncon 11-03 Magnesium [Mass/Vol] 1.7 mg/dL Normal 1.7-2.3 [facility] Comment on above: Order Comment: Speci men Type: BLOOD SPECIMEN Performed By: #### 2 4321-2, 34918-8 ####[facility]ATORYCLIA [id number] [place] [address] PT panel Coag (PPP)on 2020 INR Coag (PPP) [Relative time] 1.3 {INR} Normal 0.9-1.3 [facility] Comment on above: Order Comment: Speci men Type: BLOOD SPECIMEN Result Comment: Nicolasa min K Antagonist (VKA) Therapeutic Range: INR 2 to 3 (Target INR of 2.5)Note: For patients treated with VKA drugs, such as warfarin, the [employer] 2012 Guideline recommends [...] al. Chest 2012, 141:7S-47SNishimura RA, et al. [facility] 2017, 70: 252-289 Performed By: #### 3 4528-0 ####[facility] LABORATORYCLIA [id number] [place] [address] PT Coag (PPP) [Time] 13.2 s High 9.7-13.0 [facility] Comment on above: Order Comment: Speci men Type: BLOOD SPECIMEN Performed By: #### 3 4528-0 ####[facility]ATORYCLIA [id number] [place] [address] THERAPY NTon 11-03-2020 THERAPY NT Normal [facility] aPTT PPPon 11-03-2020 aPTT Coag (PPP) [Time] 65.7 s High 23.0-32.4 [facility] Comment on above: Order Comment: Speci men Type: BLOOD SPECIMEN Performed By: #### 1 4979-9 ####[facility]ATORYCLIA [id number] [place] [address] aPTT Coag (PPP) [Time] 34.9 s High 23.0-32.4 [facility] Comment on above: Order Comment: Speci men Type: BLOOD SPECIMEN Performed By: #### 1 4979-9 ####[facility]ORATORYCLIA [id number] [place] [address] aPTT Coag (PPP) [Time] 94.8 s High 23.0-32.4 [facility] Comment on above: Order Comment: Speci men Type: BLOOD SPECIMEN Performed By: #### 1 4979-9 ####[facility]ORATORYCLIA [id number] [place] [address] CASE MANAGEMon 11-02-2020 CASE MANAGEM Normal [facility] CBC W Auto Differential pane l (Bld)on 11-02-2020 Basophils (Bld) [#/Vol] 0.06 10*3/uL Normal <0.11 [facility] Comment on above: Order Comment: Speci men Type: BLOOD SPECIMEN Performed By: #### 5 7021-8 ####[facility]ATORYCLIA [id number] [place] [address] Basophils/100 WBC (Bld) 0.7 % Normal [facility] Comment on above: Order Comment: Speci men Type: BLOOD SPECIMEN Performed By: #### 5 7021-8 ####[facility]ATORYCLIA [id number] [place] [address] Differential cell count method Nom (Bld) Auto Normal [facility] Comment on above: Order Comment: Speci men Type: BLOOD SPECIMEN Performed By: #### 5 7021-8 ####[facility]ATORYCLIA [id number] [place] [address] Eosinophils (Bld) [#/Vol] 0.55 10*3/uL High <0.46 [facility] Comment on above: Order Comment: Speci men Type: BLOOD SPECIMEN Performed By: #### 5 7021-8 ####[facility]ORYCLIA [id number] [place] [address] Eosinophils/100 WBC (Bld) 6.4 % Normal [facility] Comment on above: Order Comment: Speci men Type: BLOOD SPECIMEN Performed By: #### 5 7021-8 ####[facility]ATORYCLIA [id number] [place] [address] Erythrocyte distribution width (RBC) [Ratio] 14.5 % Normal 11.5-15.0 [facility] Comment on above: Order Comment: Speci men Type: BLOOD SPECIMEN Performed By: #### 5 7021-8 ####[facility]ATORYCLIA [id number] [place] [address] Hematocrit (Bld) [Volume fraction] 25.6 % Low 36.0-46.0 [facility] Comment on above: Order Comment: Speci men Type: BLOOD SPECIMEN Performed By: #### 5 7021-8 ####[facility]ORATORYCLIA [id number] [place] [address] Hemoglobin (Bld) [Mass/Vol] 8.2 g/dL Low 11.5-15.5 [facility] Comment on above: Order Comment: Speci men Type: BLOOD SPECIMEN Performed By: #### 5 7021-8 ####[facility]ORATORYCLIA [id number] [place] [address] IMMATURE GRAN % 0.8 % Normal [facility] Comment on above: Order Comment: Speci men Type: BLOOD SPECIMEN Performed By: #### 5 7021-8 ####[facility]ORATORYCLIA [id number] [place] [address] IMMATURE GRAN ABS 0.07 k/uL Normal <0.10 [facility] Comment on above: Order Comment: Speci men Type: BLOOD SPECIMEN Performed By: #### 5 7021-8 ####[facility]ATORYCLIA [id number] [place] [address] Lymphocytes (Bld) [#/Vol] 2.55 10*3/uL Normal 1.00-4.00 [facility] Comment on above: Order Comment: Speci men Type: BLOOD SPECIMEN Performed By: #### 5 7021-8 ####[facility]ATORYCLIA [id number] [place] [address] Lymphocytes/100 WBC (Bld) 29.5 % Normal [facility] Comment on above: Order Comment: Speci men Type: BLOOD SPECIMEN Performed By: #### 5 7021-8 ####[facility]ATORYCLIA [id number] [place] [address] MCH (RBC) [Entitic mass] 32.2 pg Normal 26.0-34.0 [facility] Comment on above: Order Comment: Speci men Type: BLOOD SPECIMEN Performed By: #### 5 7021-8 ####[facility]ATORYCLIA [id number] [place] [address] MCHC (RBC) [Mass/Vol] 32.0 g/dL Normal 30.5-36.0 [facility] Comment on above: Order Comment: Speci men Type: BLOOD SPECIMEN Performed By: #### 5 7021-8 ####[facility]ORYCLIA [id number] [place] [address] MCV (RBC) [Entitic vol] 100.4 fL High 80.0-100.0 [facility] Comment on above: Order Comment: Speci men Type: BLOOD SPECIMEN Performed By: #### 5 7021-8 ####[facility]ORATORYCLIA [id number] [place] [address] Monocytes (Bld) [#/Vol] 0.62 10*3/uL Normal <0.87 [facility] Comment on above: Order Comment: Speci men Type: BLOOD SPECIMEN Performed By: #### 5 7021-8 ####[facility]ATORYCLIA [id number] [place] [address] Monocytes/100 WBC (Bld) 7.2 % Normal [facility] Comment on above: Order Comment: Speci men Type: BLOOD SPECIMEN Performed By: #### 5 7021-8 ####[facility]ORYCLIA [id number] [place] [address] Neutrophils (Bld) [#/Vol] 4.78 10*3/uL Normal 1.45-7.50 [facility] Comment on above: Order Comment: Speci men Type: BLOOD SPECIMEN Performed By: #### 5 7021-8 ####[facility]ATORYCLIA [id number] [place] [address] Neutrophils/100 WBC (Bld) 55.4 % Normal [facility] Comment on above: Order Comment: Speci men Type: BLOOD SPECIMEN Performed By: #### 5 7021-8 ####[facility]ATORYCLIA [id number] [place] [address] Nucleated RBC (Bld) [#/Vol] 10*3/uL Normal <0.01 [facility] Comment on above: Order Comment: Speci men Type: BLOOD SPECIMEN Performed By: #### 5 7021-8 ####[facility]ATORYCLIA [id number] [place] [address] Nucleated RBC/100 WBC (Bld) [Ratio] 0.0 /100 WBC Normal 0.0 [facility] Comment on above: Order Comment: Speci men Type: BLOOD SPECIMEN Performed By: #### 5 7021-8 ####[facility]ORATORYCLIA [id number] [place] [address] Platelet mean volume (Bld) [Entitic vol] 9.7 fL Normal 9.0-12.7 [facility] Comment on above: Order Comment: Speci men Type: BLOOD SPECIMEN Performed By: #### 5 7021-8 ####[facility]ATORYCLIA [id number] [place] [address] Platelets (Bld) [#/Vol] 325 10*3/uL Normal 150-400 [facility] Comment on above: Order Comment: Speci men Type: BLOOD SPECIMEN Performed By: #### 5 7021-8 ####[facility]ATORYCLIA [id number] [place] [address] RBC (Bld) [#/Vol] 2.55 10*6/uL Low 3.90-5.20 [facility] Comment on above: Order Comment: Speci men Type: BLOOD SPECIMEN Performed By: #### 5 7021-8 ####[facility]ORYCLIA [id number] [place] [address] WBC (Bld) [#/Vol] 8.63 10*3/uL Normal 3.70-11.00 [facility] Comment on above: Order Comment: Speci men Type: BLOOD SPECIMEN Performed By: #### 5 7021-8 ####[facility]ATORYCLIA [id number] [place] [address] CONSULT PROGon 11-02-2020 CONSULT PROG Normal [facility] Comprehensive metabolic 2000 panelon 11-02-2020 Albumin [Mass/Vol] 3.5 g/dL Low 3.9-4.9 [facility] Comment on above: Order Comment: Speci men Type: BLOOD SPECIMEN Performed By: #### 1 9123-9, 04553-2 ####[facility]ORYCLIA [id number] [place] [address] ALP [Catalytic activity/Vol] 72 U/L Normal 34-123 [facility] Comment on above: Order Comment: Speci men Type: BLOOD SPECIMEN Performed By: #### 1 9123-9, ####[facility]ATORYCLIA [id number] [place] [address] ALT With P-5'-P [Catalytic activity/Vol] 26 U/L Normal 7-38 [facility] Comment on above: Order Comment: Speci men Type: BLOOD SPECIMEN Performed By: #### 1 9123-9, 84538-4 ####[facility]ATORYCLIA [id number] [place] [address] Anion gap [Moles/Vol] 8 mmol/L Low 9-18 [facility] Comment on above: Order Comment: Speci men Type: BLOOD SPECIMEN Performed By: #### 1 23-9, ####[facility]ATORYCLIA [id number] [place] [address] AST With P-5'-P [Catalytic activity/Vol] 35 U/L Normal 13-35 [facility] Comment on above: Order Comment: Speci men Type: BLOOD SPECIMEN Performed By: #### 1 9123-9, ####[facility]ATORYCLIA [id number] [place] [address] Bilirubin [Mass/Vol] 0.9 mg/dL Normal 0.2-1.3 [facility] Comment on above: Order Comment: Speci men Type: BLOOD SPECIMEN Performed By: #### 1 9123-9, ####[facility] LABORATORYCLIA [id number] [place] [address] Calcium [Mass/Vol] 9.1 mg/dL Normal 8.5-10.2 [facility] Comment on above: Order Comment: Speci men Type: BLOOD SPECIMEN Performed By: #### 1 9123-9, 54747-0 ####[facility]ORATORYCLIA [id number] [place] [address] Chloride [Moles/Vol] 105 mmol/L Normal 97-105 [facility] Comment on above: Order Comment: Speci men Type: BLOOD SPECIMEN Performed By: #### 1 9123-9, ####[facility]ORATORYCLIA [id number] [place] [address] CO2 [Moles/Vol] 24 mmol/L Normal 22-30 [facility] Comment on above: Order Comment: Speci men Type: BLOOD SPECIMEN Performed By: #### 1 9123-9, ####[facility]ORATORYCLIA [id number] [place] [address] Creatinine [Mass/Vol] 0.91 mg/dL Normal 0.58-0.96 [facility] Comment on above: Order Comment: Speci men Type: BLOOD SPECIMEN Performed By: #### 1 9123-9, 95905-0 ####[facility]ORATORYCLIA [id number] [place] [address] GFR/1.73 sq M.predicted MDRD (S/P/Bld) [Vol rate/Area] mL/min/{1.73_m2} Normal [facility] Comment on above: Order Comment: Speci [...] actual GFR. Performed By: #### 1 9123-9, ####[facility]ORATORYCLIA [id number] [place] [address] Glucose [Mass/Vol] 92 mg/dL Normal 74-99 [facility] Comment on above: Order Comment: Speci men Type: BLOOD SPECIMEN Result Comment: The [place] [employer] Association (ADA) provides guidance for cutoff [...] Standards of Medical Care in Diabetes 2016, [place] [employer]. Diabetes Care. 2016.39(Suppl 1). Performed By: #### 1 239, ####[facility]ORATORYCLIA [id number] [place] [address] Potassium [Moles/Vol] 4.4 mmol/L Normal 3.7-5.1 [facility] Comment on above: Order Comment: Speci men Type: BLOOD SPECIMEN Performed By: #### 1 9, ####[facility]ORATORYCLIA [id number] [place] [address] Protein [Mass/Vol] 6.0 g/dL Low 6.3-8.0 [facility] Comment on above: Order Comment: Speci men Type: BLOOD SPECIMEN Performed By: #### 1 9123-9, ####[facility]ORATORYCLIA [id number] [place] [address] Sodium [Moles/Vol] 137 mmol/L Normal 136-144 [facility] Comment on above: Order Comment: Speci men Type: BLOOD SPECIMEN Performed By: #### 1 239, ####[facility]ATORYCLIA [id number] [place] [address] Urea nitrogen [Mass/Vol] 10 mg/dL Normal 7-21 [facility] Comment on above: Order Comment: Speci men Type: BLOOD SPECIMEN Performed By: #### 1 9123-9, 98820-4 ####[facility]ORATORYCLIA [id number] [place] [address] Magnesium SerPl-mCncon 11-02 Magnesium [Mass/Vol] 1.7 mg/dL Normal 1.7-2.3 [facility] Comment on above: Order Comment: Speci men Type: BLOOD SPECIMEN Performed By: #### 1 9123-9, 24663-2 ####[facility]ORATORYCLIA [id number] [place] [address] NUTRITIONon 11-02-2020 NUTRITION Normal [facility] PT panel Coag (PPP)on 2020 INR Coag (PPP) [Relative time] 1.1 {INR} Normal 0.9-1.3 [facility] Comment on above: Order Comment: Speci men Type: BLOOD SPECIMEN Result Comment: Nicolasa min K Antagonist (VKA) Therapeutic Range: INR 2 to 3 (Target INR of 2.5)Note: For patients treated with VKA drugs, such as warfarin, the [place] [employer] 2012 Guideline recommends [...] al. Chest 2012, 141:7S-47SKunal RA, et al. [facility] 2017, 70: 252-289 Performed By: #### 3 4528-0 ####[facility]ORATORYCLIA [id number] [place] [address] PT Coag (PPP) [Time] 11.8 s Normal 9.7-13.0 [facility] Comment on above: Order Comment: Speci men Type: BLOOD SPECIMEN Performed By: #### 3 4528-0 ####[facility]ATORYCLIA [id number] [place] [address] THERAPY NTon 11-02-2020 THERAPY NT Normal [facility] THERAPY NT Normal [facility] aPTT PPPon 11-02-2020 aPTT Coag (PPP) [Time] 36.7 s High 23.0-32.4 [facility] Comment on above: Order Comment: Speci men Type: BLOOD SPECIMEN Performed By: #### 1 4979-9 ####[facility]ATORYCLIA [id number] [place] [address] aPTT Coag (PPP) [Time] 119.3 s High 23.0-32.4 [facility] Comment on above: Order Comment: Speci men Type: BLOOD SPECIMEN Performed By: #### 1 4979-9 ####[facility]ATORYCLIA [id number] [place] [address] aPTT Coag (PPP) [Time] 45.6 s High 23.0-32.4 [facility] Comment on above: Order Comment: Speci men Type: BLOOD SPECIMEN Performed By: #### 1 4979-9 ####[facility]ORYCLIA [id number] [place] [address] Basic metabolic 2000 panelon 11-01-2020 Anion gap [Moles/Vol] 6 mmol/L Low 9-18 [facility] Comment on above: Order Comment: Speci men Type: BLOOD SPECIMEN Performed By: #### 2 4321-2 ####[facility]ORYCLIA [id number] [place] [address] Calcium [Mass/Vol] 8.6 mg/dL Normal 8.5-10.2 [facility] Comment on above: Order Comment: Speci men Type: BLOOD SPECIMEN Performed By: #### 2 4321-2 ####[facility]ATORYCLIA [id number] [place] [address] Chloride [Moles/Vol] 107 mmol/L High 97-105 [facility] Comment on above: Order Comment: Speci men Type: BLOOD SPECIMEN Performed By: #### 2 4321-2 ####[facility]ATORYCLIA [id number] [place] [address] CO2 [Moles/Vol] 25 mmol/L Normal 22-30 [facility] Comment on above: Order Comment: Speci men Type: BLOOD SPECIMEN Performed By: #### 2 4321-2 ####[facility]ORATORYCLIA [id number] [place] [address] Creatinine [Mass/Vol] 0.83 mg/dL Normal 0.58-0.96 [facility] Comment on above: Order Comment: Speci men Type: BLOOD SPECIMEN Performed By: #### 2 4321-2 ####[facility]ORATORYCLIA [id number] [place] [address] GFR/1.73 sq M.predicted MDRD (S/P/Bld) [Vol rate/Area] mL/min/{1.73_m2} Normal [facility] Comment on above: Order Comment: Speci men Type: BLOOD SPECIMEN Result Comment: >60e GFR (Estimated GFR) Units of measure: mL/min/1.73 meters squaredeGFR is derived from the reexpressed MDRD Study equation using the following parameters: serum creatinine, age, gender and race. The creatinine assay has been calibrated to be traceable to IDVT. An eGFR <60 mL/min/1.73m2 for >3 months is consistent with chronic kidney disease. Refer to KDOQI guidelines for clinical interpretation. In patients with unstable renal function, e.g. those with acute kidney injury, the eGFR may not accurately reflect actual GFR. Performed By: #### 2 4321-2 ####[facility]ORATORYCLIA [id number] [place] [address] Glucose [Mass/Vol] 93 mg/dL Normal 74-99 [facility] Comment on above: Order Comment: Speci men Type: BLOOD SPECIMEN Result Comment: The [place] Diabetes [employer] (ADA) provides guidance for cutoff [...] Standards of Medical Care in Diabetes 2016, [place] [employer]. Diabetes Care. 2016.39(Suppl 1). Performed By: #### 2 4321-2 ####[facility]ORATORYCLIA [id number] [place] [address] Potassium [Moles/Vol] 4.3 mmol/L Normal 3.7-5.1 [facility] Comment on above: Order Comment: Speci men Type: BLOOD SPECIMEN Performed By: #### 2 4321-2 ####[facility]ORATORYCLIA [id number] [place] [address] Sodium [Moles/Vol] 138 mmol/L Normal 136-144 [facility] Comment on above: Order Comment: Speci men Type: BLOOD SPECIMEN Performed By: #### 2 4321-2 ####[facility]ORATORYCLIA [id number] [place] [address] Urea nitrogen [Mass/Vol] 11 mg/dL Normal 7-21 [facility] Comment on above: Order Comment: Speci men Type: BLOOD SPECIMEN Performed By: #### 2 4321-2 ####[facility]ORATORYCLIA [id number] [place] [address] CBC W Auto Differential pane l (Bld)on 11-01-2020 Basophils (Bld) [#/Vol] 0.06 10*3/uL Normal <0.11 [facility] Comment on above: Order Comment: Speci men Type: BLOOD SPECIMEN Performed By: #### 5 7021-8 ####[facility]ORATORYCLIA [id number] [place] [address] Basophils/100 WBC (Bld) 0.8 % Normal [facility] Comment on above: Order Comment: Speci men Type: BLOOD SPECIMEN Performed By: #### 5 7021-8 ####[facility]ATORYCLIA [id number] [place] [address] Differential cell count method Nom (Bld) Auto Normal [facility] Comment on above: Order Comment: Speci men Type: BLOOD SPECIMEN Performed By: #### 5 7021-8 ####[facility]ORYCLIA [id number] [place] [address] Eosinophils (Bld) [#/Vol] 0.44 10*3/uL Normal <0.46 [facility] Comment on above: Order Comment: Speci men Type: BLOOD SPECIMEN Performed By: #### 5 7021-8 ####[facility] LABORATORYCLIA [id number] [place] [address] Eosinophils/100 WBC (Bld) 6.0 % Normal [facility] Comment on above: Order Comment: Speci men Type: BLOOD SPECIMEN Performed By: #### 5 7021-8 ####[facility]ATORYCLIA [id number] [place] [address] Erythrocyte distribution width (RBC) [Ratio] 14.4 % Normal 11.5-15.0 [facility] Comment on above: Order Comment: Speci men Type: BLOOD SPECIMEN Performed By: #### 5 7021-8 ####[facility]ATORYCLIA [id number] [place] [address] Hematocrit (Bld) [Volume fraction] 24.5 % Low 36.0-46.0 [facility] Comment on above: Order Comment: Speci men Type: BLOOD SPECIMEN Performed By: #### 5 7021-8 ####[facility]ATORYCLIA [id number] [place] [address] Hemoglobin (Bld) [Mass/Vol] 8.0 g/dL Low 11.5-15.5 [facility] Comment on above: Order Comment: Speci men Type: BLOOD SPECIMEN Performed By: #### 5 7021-8 ####[facility]ORYCLIA [id number] [place] [address] IMMATURE GRAN % 0.8 % Normal [facility] Comment on above: Order Comment: Speci men Type: BLOOD SPECIMEN Performed By: #### 5 7021-8 ####[facility]ORYCLIA [id number] [place] [address] IMMATURE GRAN ABS 0.06 k/uL Normal <0.10 [facility] Comment on above: Order Comment: Speci men Type: BLOOD SPECIMEN Performed By: #### 5 7021-8 ####[facility]ORATORYCLIA [id number] [place] [address] Lymphocytes (Bld) [#/Vol] 1.81 10*3/uL Normal 1.00-4.00 [facility] Comment on above: Order Comment: Speci men Type: BLOOD SPECIMEN Performed By: #### 5 7021-8 ####[facility]ORYCLIA [id number] [place] [address] Lymphocytes/100 WBC (Bld) 24.6 % Normal [facility] Comment on above: Order Comment: Speci men Type: BLOOD SPECIMEN Performed By: #### 5 7021-8 ####[facility]ORYCLIA [id number] [place] [address] MCH (RBC) [Entitic mass] 32.5 pg Normal 26.0-34.0 [facility] Comment on above: Order Comment: Speci men Type: BLOOD SPECIMEN Performed By: #### 5 7021-8 ####[facility]ORYCLIA [id number] [place] [address] MCHC (RBC) [Mass/Vol] 32.7 g/dL Normal 30.5-36.0 [facility] Comment on above: Order Comment: Speci men Type: BLOOD SPECIMEN Performed By: #### 5 7021-8 ####[facility]ORATORYCLIA [id number] [place] [address] MCV (RBC) [Entitic vol] 99.6 fL Normal 80.0-100.0 [facility] Comment on above: Order Comment: Speci men Type: BLOOD SPECIMEN Performed By: #### 5 7021-8 ####[facility]ORATORYCLIA [id number] [place] [address] Monocytes (Bld) [#/Vol] 0.48 10*3/uL Normal <0.87 [facility] Comment on above: Order Comment: Speci men Type: BLOOD SPECIMEN Performed By: #### 5 7021-8 ####[facility] LABORATORYCLIA [id number] [place] [address] Monocytes/100 WBC (Bld) 6.5 % Normal [facility] Comment on above: Order Comment: Speci men Type: BLOOD SPECIMEN Performed By: #### 5 7021-8 ####[facility] LABORATORYCLIA [id number] [place] [address] Neutrophils (Bld) [#/Vol] 4.51 10*3/uL Normal 1.45-7.50 [facility] Comment on above: Order Comment: Speci men Type: BLOOD SPECIMEN Performed By: #### 5 7021-8 ####[facility] LABORATORYCLIA [id number] [place] [address] Neutrophils/100 WBC (Bld) 61.3 % Normal [facility] Comment on above: Order Comment: Speci men Type: BLOOD SPECIMEN Performed By: #### 5 7021-8 ####[facility] LABORATORYCLIA [id number] [place] [address] Nucleated RBC (Bld) [#/Vol] 10*3/uL Normal <0.01 [facility] Comment on above: Order Comment: Speci men Type: BLOOD SPECIMEN Performed By: #### 5 7021-8 ####[facility] LABORATORYCLIA [id number] [place] [address] Nucleated RBC/100 WBC (Bld) [Ratio] 0.0 /100 WBC Normal 0.0 [facility] Comment on above: Order Comment: Speci men Type: BLOOD SPECIMEN Performed By: #### 5 7021-8 ####[facility] LABORATORYCLIA [id number] [place] [address] Platelet mean volume (Bld) [Entitic vol] 9.7 fL Normal 9.0-12.7 [facility] Comment on above: Order Comment: Speci men Type: BLOOD SPECIMEN Performed By: #### 5 7021-8 ####[facility] LABORATORYCLIA [id number] [place] [address] Platelets (Bld) [#/Vol] 271 10*3/uL Normal 150-400 [facility] Comment on above: Order Comment: Speci men Type: BLOOD SPECIMEN Performed By: #### 5 7021-8 ####[facility] LABORATORYCLIA [id number] [place] [address] RBC (Bld) [#/Vol] 2.46 10*6/uL Low 3.90-5.20 [facility] Comment on above: Order Comment: Speci men Type: BLOOD SPECIMEN Performed By: #### 5 7021-8 ####[facility] LABORATORYCLIA [id number] [place] [address] WBC (Bld) [#/Vol] 7.36 10*3/uL Normal 3.70-11.00 [facility] Comment on above: Order Comment: Speci men Type: BLOOD SPECIMEN Performed By: #### 5 7021-8 ####[facility] LABORATORYCLIA [id number] [place] [address] CONSULT PROGon 11-01-2020 CONSULT PROG Normal [facility] PT panel Coag (PPP)on 2020 INR Coag (PPP) [Relative time] 1.2 {INR} Normal 0.9-1.3 [facility] Comment on above: Order Comment: Speci men Type: BLOOD SPECIMEN Result Comment: Nicolasa min K Antagonist (VKA) Therapeutic Range: INR 2 to 3 (Target INR of 2.5)Note: For patients treated with VKA drugs, such as warfarin, the [employer] 2012 Guideline recommends [...] al. Chest 2012, 141:7S-47SNishimura RA, et al. [facility] 2017, 70: 252-289 Performed By: #### 1 4979-9, 35227-5 ####[facility] LABORATORYCLIA [id number] [place] [address] PT Coag (PPP) [Time] 12.2 s Normal 9.7-13.0 [facility] Comment on above: Order Comment: Speci men Type: BLOOD SPECIMEN Performed By: #### 1 4979-9, 15493-0 ####[facility] LABORATORYCLIA [id number] [place] [address] aPTT PPPon 11-01-2020 aPTT Coag (PPP) [Time] 58.1 s High 23.0-32.4 [facility] Comment on above: Order Comment: Speci men Type: BLOOD SPECIMEN Performed By: #### 1 4979-9, 72642-6 ####[facility] LABORATORYCLIA [id number] [place] [address] CBC W Auto Differential pane l (Bld)on 10-31-2020 Basophils (Bld) [#/Vol] 0.07 10*3/uL Normal <0.11 [facility] Comment on above: Order Comment: Speci men Type: BLOOD SPECIMEN Performed By: #### 5 7021-8 ####[facility] LABORATORYCLIA [id number] [place] [address] Basophils/100 WBC (Bld) 0.8 % Normal [facility] Comment on above: Order Comment: Speci men Type: BLOOD SPECIMEN Performed By: #### 5 7021-8 ####[facility] LABORATORYCLIA [id number] [place] [address] Differential cell count method Nom (Bld) Auto Normal [facility] Comment on above: Order Comment: Speci men Type: BLOOD SPECIMEN Performed By: #### 5 7021-8 ####[facility] LABORATORYCLIA [id number] [place] [address] Eosinophils (Bld) [#/Vol] 0.41 10*3/uL Normal <0.46 [facility] Comment on above: Order Comment: Speci men Type: BLOOD SPECIMEN Performed By: #### 5 7021-8 ####[facility]ORATORYCLIA [id number] [place] [address] Eosinophils/100 WBC (Bld) 4.7 % Normal [facility] Comment on above: Order Comment: Speci men Type: BLOOD SPECIMEN Performed By: #### 5 7021-8 ####[facility] LABORATORYCLIA [id number] [place] [address] Erythrocyte distribution width (RBC) [Ratio] 14.6 % Normal 11.5-15.0 [facility] Comment on above: Order Comment: Speci men Type: BLOOD SPECIMEN Performed By: #### 5 7021-8 ####[facility] LABORATORYCLIA [id number] [place] [address] Hematocrit (Bld) [Volume fraction] 24.6 % Low 36.0-46.0 [facility] Comment on above: Order Comment: Speci men Type: BLOOD SPECIMEN Performed By: #### 5 7021-8 ####[facility] LABORATORYCLIA [id number] [place] [address] Hemoglobin (Bld) [Mass/Vol] 8.2 g/dL Low 11.5-15.5 [facility] Comment on above: Order Comment: Speci men Type: BLOOD SPECIMEN Performed By: #### 5 7021-8 ####[facility] LABORATORYCLIA [id number] [place] [address] IMMATURE GRAN % 0.8 % Normal [facility] Comment on above: Order Comment: Speci men Type: BLOOD SPECIMEN Performed By: #### 5 7021-8 ####[facility] LABORATORYCLIA [id number] [place] [address] IMMATURE GRAN ABS 0.07 k/uL Normal <0.10 [facility] Comment on above: Order Comment: Speci men Type: BLOOD SPECIMEN Performed By: #### 5 7021-8 ####[facility] LABORATORYCLIA [id number] [place] [address] Lymphocytes (Bld) [#/Vol] 1.77 10*3/uL Normal 1.00-4.00 [facility] Comment on above: Order Comment: Speci men Type: BLOOD SPECIMEN Performed By: #### 5 7021-8 ####[facility] LABORATORYCLIA [id number] [place] [address] Lymphocytes/100 WBC (Bld) 20.1 % Normal [facility] Comment on above: Order Comment: Speci men Type: BLOOD SPECIMEN Performed By: #### 5 7021-8 ####[facility] LABORATORYCLIA [id number] [place] [address] MCH (RBC) [Entitic mass] 32.9 pg Normal 26.0-34.0 [facility] Comment on above: Order Comment: Speci men Type: BLOOD SPECIMEN Performed By: #### 5 7021-8 ####[facility] LABORATORYCLIA [id number] [place] [address] MCHC (RBC) [Mass/Vol] 33.3 g/dL Normal 30.5-36.0 [facility] Comment on above: Order Comment: Speci men Type: BLOOD SPECIMEN Performed By: #### 5 7021-8 ####[facility] LABORATORYCLIA [id number] [place] [address] MCV (RBC) [Entitic vol] 98.8 fL Normal 80.0-100.0 [facility] Comment on above: Order Comment: Speci men Type: BLOOD SPECIMEN Performed By: #### 5 7021-8 ####[facility] LABORATORYCLIA [id number] [place] [address] Monocytes (Bld) [#/Vol] 0.52 10*3/uL Normal <0.87 [facility] Comment on above: Order Comment: Speci men Type: BLOOD SPECIMEN Performed By: #### 5 7021-8 ####[facility] LABORATORYCLIA [id number] [place] [address] Monocytes/100 WBC (Bld) 5.9 % Normal [facility] Comment on above: Order Comment: Speci men Type: BLOOD SPECIMEN Performed By: #### 5 7021-8 ####[facility] LABORATORYCLIA [id number] [place] [address] Neutrophils (Bld) [#/Vol] 5.97 10*3/uL Normal 1.45-7.50 [facility] Comment on above: Order Comment: Speci men Type: BLOOD SPECIMEN Performed By: #### 5 7021-8 ####[facility] LABORATORYCLIA [id number] [place] [address] Neutrophils/100 WBC (Bld) 67.7 % Normal [facility] Comment on above: Order Comment: Speci men Type: BLOOD SPECIMEN Performed By: #### 5 7021-8 ####[facility] LABORATORYCLIA [id number] [place] [address] Nucleated RBC (Bld) [#/Vol] 10*3/uL Normal <0.01 [facility] Comment on above: Order Comment: Speci men Type: BLOOD SPECIMEN Performed By: #### 5 7021-8 ####[facility] LABORATORYCLIA [id number] [place] [address] Nucleated RBC/100 WBC (Bld) [Ratio] 0.0 /100 WBC Normal 0.0 [facility] Comment on above: Order Comment: Speci men Type: BLOOD SPECIMEN Performed By: #### 5 7021-8 ####[facility] LABORATORYCLIA [id number] [place] [address] Platelet mean volume (Bld) [Entitic vol] 9.5 fL Normal 9.0-12.7 [facility] Comment on above: Order Comment: Speci men Type: BLOOD SPECIMEN Performed By: #### 5 7021-8 ####[facility] LABORATORYCLIA [id number] [place] [address] Platelets (Bld) [#/Vol] 267 10*3/uL Normal 150-400 [facility] Comment on above: Order Comment: Speci men Type: BLOOD SPECIMEN Performed By: #### 5 7021-8 ####[facility] LABORATORYCLIA [id number] [place] [address] RBC (Bld) [#/Vol] 2.49 10*6/uL Low 3.90-5.20 [facility] Comment on above: Order Comment: Speci men Type: BLOOD SPECIMEN Performed By: #### 5 7021-8 ####[facility] LABORATORYCLIA [id number] [place] [address] WBC (Bld) [#/Vol] 8.81 10*3/uL Normal 3.70-11.00 [facility] Comment on above: Order Comment: Speci men Type: BLOOD SPECIMEN Performed By: #### 5 7021-8 ####[facility] LABORATORYCLIA [id number] [place] [address] Comprehensive metabolic 2000 panelon 10-31-2020 Albumin [Mass/Vol] 3.4 g/dL Low 3.9-4.9 [facility] Comment on above: Order Comment: Speci men Type: BLOOD SPECIMEN Performed By: #### 2 4323-8, 39900-2 ####[facility] LABORATORYCLIA [id number] [place] [address] ALP [Catalytic activity/Vol] 63 U/L Normal 34-123 [facility] Comment on above: Order Comment: Speci men Type: BLOOD SPECIMEN Performed By: #### 2 4323-8, 38974-1 ####[facility] LABORATORYCLIA [id number] [place] [address] ALT With P-5'-P [Catalytic activity/Vol] 28 U/L Normal 7-38 [facility] Comment on above: Order Comment: Speci men Type: BLOOD SPECIMEN Performed By: #### 2 4323-8, ####[facility] LABORATORYCLIA [id number] [place] [address] Anion gap [Moles/Vol] 8 mmol/L Low 9-18 [facility] Comment on above: Order Comment: Speci men Type: BLOOD SPECIMEN Performed By: #### 2 4322-8, ####[facility] LABORATORYCLIA [id number] [place] [address] AST With P-5'-P [Catalytic activity/Vol] 54 U/L High 13-35 [facility] Comment on above: Order Comment: Speci men Type: BLOOD SPECIMEN Performed By: #### 2 4322-8, ####[facility] LABORATORYCLIA [id number] [place] [address] Bilirubin [Mass/Vol] 0.8 mg/dL Normal 0.2-1.3 [facility] Comment on above: Order Comment: Speci men Type: BLOOD SPECIMEN Performed By: #### 2 8, ####[facility] LABORATORYCLIA [id number] [place] [address] Calcium [Mass/Vol] 8.5 mg/dL Normal 8.5-10.2 [facility] Comment on above: Order Comment: Speci men Type: BLOOD SPECIMEN Performed By: #### 2 8, ####[facility] LABORATORYCLIA [id number] [place] [address] Chloride [Moles/Vol] 106 mmol/L High 97-105 [facility] Comment on above: Order Comment: Speci men Type: BLOOD SPECIMEN Performed By: #### 2 4322-8, ####[facility] LABORATORYCLIA [id number] [place] [address] CO2 [Moles/Vol] 24 mmol/L Normal 22-30 [facility] Comment on above: Order Comment: Speci men Type: BLOOD SPECIMEN Performed By: #### 2 4322-8, ####[facility] LABORATORYCLIA [id number] [place] [address] Creatinine [Mass/Vol] 0.85 mg/dL Normal 0.58-0.96 [facility] Comment on above: Order Comment: Speci men Type: BLOOD SPECIMEN Performed By: #### 2 4323-8, ####[facility] LABORATORYCLIA [id number] [place] [address] GFR/1.73 sq M.predicted MDRD (S/P/Bld) [Vol rate/Area] mL/min/{1.73_m2} Normal [facility] Comment on above: Order Comment: Speci [...] reflect actual GFR. Performed By: #### 2 4323-03, ####[facility] LABORATORYCLIA [id number] [place] [address] Glucose [Mass/Vol] 94 mg/dL Normal 74-99 [facility] Comment on above: Order Comment: Speci [facility] Type: BLOOD SPECIMEN Result Comment: The [place] [employer] (ADA) provides guidance for cutoff [...] Standards of Medical Care in Diabetes 2016, [place] [employer]. Diabetes Care. 2016.39(Suppl 1). Performed By: #### 2 4323-8, ####[facility] LABORATORYCLIA [id number] [place] [address] Potassium [Moles/Vol] 4.5 mmol/L Normal 3.7-5.1 [facility] Comment on above: Order Comment: Speci men Type: BLOOD SPECIMEN Performed By: #### 2 432-8, ####[facility] LABORATORYCLIA [id number] [place] [address] Protein [Mass/Vol] 5.4 g/dL Low 6.3-8.0 [facility] Comment on above: Order Comment: Speci men Type: BLOOD SPECIMEN Performed By: #### 2 432-8, ####[facility] LABORATORYCLIA [id number] [place] [address] Sodium [Moles/Vol] 138 mmol/L Normal 136-144 [facility] Comment on above: Order Comment: Speci men Type: BLOOD SPECIMEN Performed By: #### 2 432-8, ####[facility] LABORATORYCLIA [id number] [place] [address] Urea nitrogen [Mass/Vol] 9 mg/dL Normal 7-21 [facility] Comment on above: Order Comment: Speci men Type: BLOOD SPECIMEN Performed By: #### 2 432-8, 17781-4 ####[facility] LABORATORYCLIA [id number] [place] [address] Magnesium SerPl-mCncon 10-31 Magnesium [Mass/Vol] 1.8 mg/dL Normal 1.7-2.3 [facility] Comment on above: Order Comment: Speci men Type: BLOOD SPECIMEN Performed By: #### 2 4323-8, 25199-1 ####[facility] LABORATORYCLIA [id number] [place] [address] PT panel Coag (PPP)on 2020 INR Coag (PPP) [Relative time] 1.4 {INR} High 0.9-1.3 [facility] Comment on above: Order Comment: Speci men Type: BLOOD SPECIMEN Result Comment: Nicolasa min K Antagonist (VKA) Therapeutic Range: INR 2 to 3 (Target INR of 2.5)Note: For patients treated with VKA drugs, such as warfarin, the [employer] 2012 Guideline recommends [...] al. Chest 2012, 141:7S-47SNishlinda RA, et al. [facility] 2017, 70: 252-289 Performed By: #### 1 4979-9, 10411-4 ####[facility] LABORATORYCLIA [id number] [place] [address] PT Coag (PPP) [Time] 14.5 s High 9.7-13.0 [facility] Comment on above: Order Comment: Speci men Type: BLOOD SPECIMEN Performed By: #### 1 4979-9, 93080-2 ####[facility] LABORATORYCLIA [id number] [place] [address] aPTT PPPon 10-31-2020 aPTT Coag (PPP) [Time] 64.1 s High 23.0-32.4 [facility] Comment on above: Order Comment: Speci men Type: BLOOD SPECIMEN Performed By: #### 1 4979-9 ####[facility] LABORATORYCLIA [id number] [place] [address] aPTT Coag (PPP) [Time] 36.0 s High 23.0-32.4 [facility] Comment on above: Order Comment: Speci men Type: BLOOD SPECIMEN Performed By: #### 1 4979-9 ####[facility] LABORATORYCLIA [id number] [place] [address] aPTT Coag (PPP) [Time] 98.6 s High 23.0-32.4 [facility] Comment on above: Order Comment: Speci men Type: BLOOD SPECIMEN Performed By: #### 1 4979-9, 25793-1 ####[facility] LABORATORYCLIA [id number] [place] [address] CASE MANAGEMon 10-30-2020 CASE MANAGEM Normal [facility] CBC W Auto Differential pane l (Bld)on 10-30-2020 Basophils (Bld) [#/Vol] 0.07 10*3/uL Normal <0.11 [facility] Comment on above: Order Comment: Speci men Type: BLOOD SPECIMEN Performed By: #### 5 7021-8 ####[facility] LABORATORYCLIA [id number] [place] [address] Basophils/100 WBC (Bld) 0.8 % Normal [facility] Comment on above: Order Comment: Speci men Type: BLOOD SPECIMEN Performed By: #### 5 7021-8 ####[facility] LABORATORYCLIA [id number] [place] [address] Differential cell count method Nom (Bld) Auto Normal [facility] Comment on above: Order Comment: Speci men Type: BLOOD SPECIMEN Performed By: #### 5 7021-8 ####[facility] LABORATORYCLIA [id number] [place] [address] Eosinophils (Bld) [#/Vol] 0.34 10*3/uL Normal <0.46 [facility] Comment on above: Order Comment: Speci men Type: BLOOD SPECIMEN Performed By: #### 5 7021-8 ####[facility]ORATORYCLIA [id number] [place] [address] Eosinophils/100 WBC (Bld) 3.8 % Normal [facility] Comment on above: Order Comment: Speci men Type: BLOOD SPECIMEN Performed By: #### 5 7021-8 ####[facility] LABORATORYCLIA [id number] [place] [address] Erythrocyte distribution width (RBC) [Ratio] 14.5 % Normal 11.5-15.0 [facility] Comment on above: Order Comment: Speci men Type: BLOOD SPECIMEN Performed By: #### 5 7021-8 ####[facility]ORATORYCLIA [id number] [place] [address] Hematocrit (Bld) [Volume fraction] 25.8 % Low 36.0-46.0 [facility] Comment on above: Order Comment: Speci men Type: BLOOD SPECIMEN Performed By: #### 5 7021-8 ####[facility] LABORATORYCLIA [id number] [place] [address] Hemoglobin (Bld) [Mass/Vol] 8.5 g/dL Low 11.5-15.5 [facility] Comment on above: Order Comment: Speci men Type: BLOOD SPECIMEN Performed By: #### 5 7021-8 ####[facility]ORATORYCLIA [id number] [place] [address] IMMATURE GRAN % 0.8 % Normal [facility] Comment on above: Order Comment: Speci men Type: BLOOD SPECIMEN Performed By: #### 5 7021-8 ####[facility] LABORATORYCLIA [id number] [place] [address] IMMATURE GRAN ABS 0.07 k/uL Normal <0.10 [facility] Comment on above: Order Comment: Speci men Type: BLOOD SPECIMEN Performed By: #### 5 7021-8 ####[facility]ORATORYCLIA [id number] [place] [address] Lymphocytes (Bld) [#/Vol] 1.51 10*3/uL Normal 1.00-4.00 [facility] Comment on above: Order Comment: Speci men Type: BLOOD SPECIMEN Performed By: #### 5 7021-8 ####[facility]ORATORYCLIA [id number] [place] [address] Lymphocytes/100 WBC (Bld) 16.9 % Normal [facility] Comment on above: Order Comment: Speci men Type: BLOOD SPECIMEN Performed By: #### 5 7021-8 ####[facility] LABORATORYCLIA [id number] [place] [address] MCH (RBC) [Entitic mass] 32.3 pg Normal 26.0-34.0 [facility] Comment on above: Order Comment: Speci men Type: BLOOD SPECIMEN Performed By: #### 5 7021-8 ####[facility] LABORATORYCLIA [id number] [place] [address] MCHC (RBC) [Mass/Vol] 32.9 g/dL Normal 30.5-36.0 [facility] Comment on above: Order Comment: Speci men Type: BLOOD SPECIMEN Performed By: #### 5 7021-8 ####[facility] LABORATORYCLIA [id number] [place] [address] MCV (RBC) [Entitic vol] 98.1 fL Normal 80.0-100.0 [facility] Comment on above: Order Comment: Speci men Type: BLOOD SPECIMEN Performed By: #### 5 7021-8 ####[facility] LABORATORYCLIA [id number] [place] [address] Monocytes (Bld) [#/Vol] 0.52 10*3/uL Normal <0.87 [facility] Comment on above: Order Comment: Speci men Type: BLOOD SPECIMEN Performed By: #### 5 7021-8 ####[facility] LABORATORYCLIA [id number] [place] [address] Monocytes/100 WBC (Bld) 5.8 % Normal [facility] Comment on above: Order Comment: Speci men Type: BLOOD SPECIMEN Performed By: #### 5 7021-8 ####[facility] LABORATORYCLIA [id number] [place] [address] Neutrophils (Bld) [#/Vol] 6.44 10*3/uL Normal 1.45-7.50 [facility] Comment on above: Order Comment: Speci men Type: BLOOD SPECIMEN Performed By: #### 5 7021-8 ####[facility]ORATORYCLIA [id number] [place] [address] Neutrophils/100 WBC (Bld) 71.9 % Normal [facility] Comment on above: Order Comment: Speci men Type: BLOOD SPECIMEN Performed By: #### 5 7021-8 ####[facility] LABORATORYCLIA [id number] [place] [address] Nucleated RBC (Bld) [#/Vol] 10*3/uL Normal <0.01 [facility] Comment on above: Order Comment: Speci men Type: BLOOD SPECIMEN Performed By: #### 5 7021-8 ####[facility] LABORATORYCLIA [id number] [place] [address] Nucleated RBC/100 WBC (Bld) [Ratio] 0.0 /100 WBC Normal 0.0 [facility] Comment on above: Order Comment: Speci men Type: BLOOD SPECIMEN Performed By: #### 5 7021-8 ####[facility] LABORATORYCLIA [id number] [place] [address] Platelet mean volume (Bld) [Entitic vol] 9.6 fL Normal 9.0-12.7 [facility] Comment on above: Order Comment: Speci men Type: BLOOD SPECIMEN Performed By: #### 5 7021-8 ####[facility] LABORATORYCLIA [id number] [place] [address] Platelets (Bld) [#/Vol] 259 10*3/uL Normal 150-400 [facility] Comment on above: Order Comment: Speci men Type: BLOOD SPECIMEN Performed By: #### 5 7021-8 ####[facility] LABORATORYCLIA [id number] [place] [address] RBC (Bld) [#/Vol] 2.63 10*6/uL Low 3.90-5.20 [facility] Comment on above: Order Comment: Speci men Type: BLOOD SPECIMEN Performed By: #### 5 7021-8 ####[facility] LABORATORYCLIA [id number] [place] [address] WBC (Bld) [#/Vol] 8.95 10*3/uL Normal 3.70-11.00 [facility] Comment on above: Order Comment: Speci men Type: BLOOD SPECIMEN Performed By: #### 5 7021-8 ####[facility] LABORATORYCLIA [id number] [place] [address] Comprehensive metabolic 2000 panelon 10-30-2020 Albumin [Mass/Vol] 3.5 g/dL Low 3.9-4.9 [facility] Comment on above: Order Comment: Speci men Type: BLOOD SPECIMEN Performed By: #### 1 9123-9, 31233-5 ####[facility] LABORATORYCLIA [id number] [place] [address] ALP [Catalytic activity/Vol] 66 U/L Normal 34-123 [facility] Comment on above: Order Comment: Speci men Type: BLOOD SPECIMEN Performed By: #### 1 9123-9, 92468-0 ####[facility] LABORATORYCLIA [id number] [place] [address] ALT With P-5'-P [Catalytic activity/Vol] 26 U/L Normal 7-38 [facility] Comment on above: Order Comment: Speci men Type: BLOOD SPECIMEN Performed By: #### 1 23-9, 31065-1 ####[facility] LABORATORYCLIA [id number] [place] [address] Anion gap [Moles/Vol] 8 mmol/L Low 9-18 [facility] Comment on above: Order Comment: Speci men Type: BLOOD SPECIMEN Performed By: #### 1 9123-9, 21482-7 ####[facility] LABORATORYCLIA [id number] [place] [address] AST With P-5'-P [Catalytic activity/Vol] 48 U/L High 13-35 [facility] Comment on above: Order Comment: Speci men Type: BLOOD SPECIMEN Performed By: #### 1 9123-9, 04967-0 ####[facility]ORATORYCLIA [id number] [place] [address] Bilirubin [Mass/Vol] 0.9 mg/dL Normal 0.2-1.3 [facility] Comment on above: Order Comment: Speci men Type: BLOOD SPECIMEN Performed By: #### 1 9123-9, ####[facility] LABORATORYCLIA [id number] [place] [address] Calcium [Mass/Vol] 8.8 mg/dL Normal 8.5-10.2 [facility] Comment on above: Order Comment: Speci men Type: BLOOD SPECIMEN Performed By: #### 1 9123-9, ####[facility] LABORATORYCLIA [id number] [place] [address] Chloride [Moles/Vol] 106 mmol/L High 97-105 [facility] Comment on above: Order Comment: Speci men Type: BLOOD SPECIMEN Performed By: #### 1 9123-9, ####[facility] LABORATORYCLIA [id number] [place] [address] CO2 [Moles/Vol] 23 mmol/L Normal 22-30 [facility] Comment on above: Order Comment: Speci men Type: BLOOD SPECIMEN Performed By: #### 1 9123-9, ####[facility] LABORATORYCLIA [id number] [place] [address] Creatinine [Mass/Vol] 0.83 mg/dL Normal 0.58-0.96 [facility] Comment on above: Order Comment: Speci men Type: BLOOD SPECIMEN Performed By: #### 1 9123-9, ####[facility] LABORATORYCLIA [id number] [place] [address] GFR/1.73 sq M.predicted MDRD (S/P/Bld) [Vol rate/Area] mL/min/{1.73_m2} Normal [facility] Comment on above: Order Comment: Speci men Type: BLOOD SPECIMEN Result Comment: >60e GFR (Estimated GFR) Units of measure: mL/min/1.73 meters squaredeGFR is derived from the reexpressed MDRD Study equation using the following parameters: serum creatinine, age, gender and race. The creatinine assay has been calibrated to be traceable to IDVT. An eGFR <60 mL/min/1.73m2 for >3 months is consistent with chronic kidney disease. Refer to KDOQI guidelines for clinical interpretation. In patients with unstable renal function, e.g. those with acute kidney injury, the eGFR may not accurately reflect actual GFR. Performed By: #### 1 91239, 59434-7 ####[facility] LABORATORYCLIA [id number] [place] [address] Glucose [Mass/Vol] 93 mg/dL Normal 74-99 [facility] Comment on above: Order Comment: Speci men Type: BLOOD SPECIMEN Result Comment: The [place] Diabetes Association (ADA) provides guidance for cutoff [...] Standards of Medical Care in Diabetes 2016, [place] [employer]. Diabetes Care. 2016.39(Suppl 1). Performed By: #### 1 9123, ####[facility] LABORATORYCLIA [id number] [place] [address] Potassium [Moles/Vol] 4.4 mmol/L Normal 3.7-5.1 [facility] Comment on above: Order Comment: Speci men Type: BLOOD SPECIMEN Performed By: #### 1 91239, ####[facility]ATORYCLIA [id number] [place] [address] Protein [Mass/Vol] 5.5 g/dL Low 6.3-8.0 [facility] Comment on above: Order Comment: Speci men Type: BLOOD SPECIMEN Performed By: #### 1 9, ####[facility]ATORYCLIA [id number] [place] [address] Sodium [Moles/Vol] 137 mmol/L Normal 136-144 [facility] Comment on above: Order Comment: Speci men Type: BLOOD SPECIMEN Performed By: #### 1 9123-9, 31912-4 ####[facility]ORATORYCLIA [id number] [place] [address] Urea nitrogen [Mass/Vol] 9 mg/dL Normal 7-21 [facility] Comment on above: Order Comment: Speci men Type: BLOOD SPECIMEN Performed By: #### 1 9123-9, 74229-2 ####[facility]ATORYCLIA [id number] [place] [address] HEMATOCRIT (HCT)on 1 Hematocrit (Bld) [Volume fraction] 27.1 % Low 36.0-46.0 [facility] Comment on above: Order Comment: Speci men Type: BLOOD SPECIMEN Performed By: #### H CT, HGB ####[facility]ORATORYCLIA [id number] [place] [address] Hematocrit (Bld) [Volume fraction] 23.5 % Low 36.0-46.0 [facility] Comment on above: Order Comment: Speci men Type: BLOOD SPECIMEN Performed By: #### H GB, HCT ####[facility]ATORYCLIA [id number] [place] [address] HEMOGLOBIN (HGB)on 1 Hemoglobin (Bld) [Mass/Vol] 9.0 g/dL Low 11.5-15.5 [facility] Comment on above: Order Comment: Speci men Type: BLOOD SPECIMEN Performed By: #### H CT, HGB ####[facility]ATORYCLIA [id number] [place] [address] Hemoglobin (Bld) [Mass/Vol] 8.0 g/dL Low 11.5-15.5 [facility] Comment on above: Order Comment: Speci men Type: BLOOD SPECIMEN Performed By: #### H GB, HCT ####[facility]ATORYCLIA [id number] [place] [address] Magnesium SerPl-mCncon 10-30 Magnesium [Mass/Vol] 1.8 mg/dL Normal 1.7-2.3 [facility] Comment on above: Order Comment: Speci men Type: BLOOD SPECIMEN Performed By: #### 1 9123-9, 82344-1 ####[facility]ORATORYCLIA [id number] [place] [address] PT panel Coag (PPP)on 2020 INR Coag (PPP) [Relative time] 1.6 {INR} High 0.9-1.3 [facility] Comment on above: Order Comment: Speci men Type: BLOOD SPECIMEN Result Comment: Nicolasa min K Antagonist (VKA) Therapeutic Range: INR 2 to 3 (Target INR of 2.5)Note: For patients treated with VKA drugs, such as warfarin, the [place] [employer] 2012 Guideline recommends [...] al. Chest 2012, 141:7S-47SNishimura RA, et al. [facility] 2017, 70: 252-289 Performed By: #### 3 4528-0 ####[facility]ATORYCLIA [id number] [place] [address] PT Coag (PPP) [Time] 16.6 s High 9.7-13.0 [facility] Comment on above: Order Comment: Speci men Type: BLOOD SPECIMEN Performed By: #### 3 4528-0 ####[facility]ATORYCLIA [id number] [place] [address] aPTT PPPon 10-30-2020 aPTT Coag (PPP) [Time] EXTREMELY ABNORMAL RESULT. No clot detected at 320 seconds. Refer to Heparin Nomogram for further actions. Critically abnormal (none) [facility] Comment on above: Order Comment: Speci men Type: BLOOD SPECIMEN Performed By: #### 1 4979-9 ####[facility]ATORYCLIA [id number] [place] [address] aPTT Coag (PPP) [Time] 32.5 s High 23.0-32.4 [facility] Comment on above: Order Comment: Speci men Type: BLOOD SPECIMEN Performed By: #### 1 4979-9 ####[facility]ATORYCLIA [id number] [place] [address] ALLIED HEALTHon 10-29-2020 ALLIED HEALTH Normal [facility] ALLIED HEALTH Normal [facility] BRIEF OP NOTon 10-29-2020 BRIEF OP NOT Normal [facility] CBC W Auto Differential pane l (Bld)on 10-29-2020 Basophils (Bld) [#/Vol] 0.06 10*3/uL Normal <0.11 [facility] Comment on above: Order Comment: Speci men Type: BLOOD SPECIMEN Performed By: #### 5 7021-8 ####[facility]ATORYCLIA [id number] [place] [address] Basophils/100 WBC (Bld) 0.7 % Normal [facility] Comment on above: Order Comment: Speci men Type: BLOOD SPECIMEN Performed By: #### 5 7021-8 ####[facility]ATORYCLIA [id number] [place] [address] Differential cell count method Nom (Bld) Auto Normal [facility] Comment on above: Order Comment: Speci men Type: BLOOD SPECIMEN Performed By: #### 5 7021-8 ####[facility]ATORYCLIA [id number] [place] [address] Eosinophils (Bld) [#/Vol] 0.35 10*3/uL Normal <0.46 [facility] Comment on above: Order Comment: Speci men Type: BLOOD SPECIMEN Performed By: #### 5 7021-8 ####[facility]ORYCLIA [id number] [place] [address] Eosinophils/100 WBC (Bld) 3.8 % Normal [facility] Comment on above: Order Comment: Speci men Type: BLOOD SPECIMEN Performed By: #### 5 7021-8 ####[facility]ORYCLIA [id number] [place] [address] Erythrocyte distribution width (RBC) [Ratio] 13.9 % Normal 11.5-15.0 [facility] Comment on above: Order Comment: Speci men Type: BLOOD SPECIMEN Performed By: #### 5 7021-8 ####[facility]ATORYCLIA [id number] [place] [address] Hematocrit (Bld) [Volume fraction] 21.9 % Low 36.0-46.0 [facility] Comment on above: Order Comment: Speci men Type: BLOOD SPECIMEN Performed By: #### 5 7021-8 ####[facility]ATORYCLIA [id number] [place] [address] Hemoglobin (Bld) [Mass/Vol] 7.0 g/dL Low 11.5-15.5 [facility] Comment on above: Order Comment: Speci men Type: BLOOD SPECIMEN Performed By: #### 5 7021-8 ####[facility]ATORYCLIA [id number] [place] [address] IMMATURE GRAN % 1.0 % Normal [facility] Comment on above: Order Comment: Speci men Type: BLOOD SPECIMEN Performed By: #### 5 7021-8 ####[facility]ATORYCLIA [id number] [place] [address] IMMATURE GRAN ABS 0.09 k/uL Normal <0.10 [facility] Comment on above: Order Comment: Speci men Type: BLOOD SPECIMEN Performed By: #### 5 7021-8 ####[facility]ATORYCLIA [id number] [place] [address] Lymphocytes (Bld) [#/Vol] 1.44 10*3/uL Normal 1.00-4.00 [facility] Comment on above: Order Comment: Speci men Type: BLOOD SPECIMEN Performed By: #### 5 7021-8 ####[facility]ATORYCLIA [id number] [place] [address] Lymphocytes/100 WBC (Bld) 15.8 % Normal [facility] Comment on above: Order Comment: Speci men Type: BLOOD SPECIMEN Performed By: #### 5 7021-8 ####[facility]ORATORYCLIA [id number] [place] [address] MCH (RBC) [Entitic mass] 32.6 pg Normal 26.0-34.0 [facility] Comment on above: Order Comment: Speci men Type: BLOOD SPECIMEN Performed By: #### 5 7021-8 ####[facility]ATORYCLIA [id number] [place] [address] MCHC (RBC) [Mass/Vol] 32.0 g/dL Normal 30.5-36.0 [facility] Comment on above: Order Comment: Speci men Type: BLOOD SPECIMEN Performed By: #### 5 7021-8 ####[facility]ATORYCLIA [id number] [place] [address] MCV (RBC) [Entitic vol] 101.9 fL High 80.0-100.0 [facility] Comment on above: Order Comment: Speci men Type: BLOOD SPECIMEN Performed By: #### 5 7021-8 ####[facility]ORATORYCLIA [id number] [place] [address] Monocytes (Bld) [#/Vol] 0.52 10*3/uL Normal <0.87 [facility] Comment on above: Order Comment: Speci men Type: BLOOD SPECIMEN Performed By: #### 5 7021-8 ####[facility]ATORYCLIA [id number] [place] [address] Monocytes/100 WBC (Bld) 5.7 % Normal [facility] Comment on above: Order Comment: Speci men Type: BLOOD SPECIMEN Performed By: #### 5 7021-8 ####[facility]ATORYCLIA [id number] [place] [address] Neutrophils (Bld) [#/Vol] 6.66 10*3/uL Normal 1.45-7.50 [facility] Comment on above: Order Comment: Speci men Type: BLOOD SPECIMEN Performed By: #### 5 7021-8 ####[facility]ATORYCLIA [id number] [place] [address] Neutrophils/100 WBC (Bld) 73.0 % Normal [facility] Comment on above: Order Comment: Speci men Type: BLOOD SPECIMEN Performed By: #### 5 7021-8 ####[facility]ATORYCLIA [id number] [place] [address] Nucleated RBC (Bld) [#/Vol] 0.02 10*3/uL High <0.01 [facility] Comment on above: Order Comment: Speci men Type: BLOOD SPECIMEN Performed By: #### 5 7021-8 ####[facility]ATORYCLIA [id number] [place] [address] Nucleated RBC/100 WBC (Bld) [Ratio] 0.2 /100 WBC High 0.0 [facility] Comment on above: Order Comment: Speci men Type: BLOOD SPECIMEN Performed By: #### 5 7021-8 ####[facility]ORYCLIA [id number] [place] [address] Platelet mean volume (Bld) [Entitic vol] 10.2 fL Normal 9.0-12.7 [facility] Comment on above: Order Comment: Speci men Type: BLOOD SPECIMEN Performed By: #### 5 7021-8 ####[facility]ATORYCLIA [id number] [place] [address] Platelets (Bld) [#/Vol] 238 10*3/uL Normal 150-400 [facility] Comment on above: Order Comment: Speci men Type: BLOOD SPECIMEN Performed By: #### 5 7021-8 ####[facility]ORYCLIA [id number] [place] [address] RBC (Bld) [#/Vol] 2.15 10*6/uL Low 3.90-5.20 [facility] Comment on above: Order Comment: Speci men Type: BLOOD SPECIMEN Performed By: #### 5 7021-8 ####[facility]ATORYCLIA [id number] [place] [address] WBC (Bld) [#/Vol] 9.12 10*3/uL Normal 3.70-11.00 [facility] Comment on above: Order Comment: Speci men Type: BLOOD SPECIMEN Performed By: #### 5 7021-8 ####[facility]ATORYCLIA [id number] [place] [address] CONSULT PROGon 10-29-2020 CONSULT PROG Normal [facility] CTA ABD/PEL/LOWER EXT W IVCO Non 10-29-2020 CTA ABD/PEL/LOWER EXT W IVCON Final Report DATE OF EXAM: Oct 29 2020 11:10AM [facility] 0122 - CTA ABD/PEL/LOWER EXT [...] to the lower extremities. Cholelithiasis. Colonic diverticulosis. 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 Transcribe Date/Time: Oct 29 2020 3:45P Dictated by : RIKY HUERTAS MD This examination was interpreted and the report reviewed and electronically signed by: RIKY HUERTAS MD on Oct 29 2020 4:36PM EST Normal [facility] Comprehensive metabolic 2000 panelon 10-29-2020 Albumin [Mass/Vol] 3.3 g/dL Low 3.9-4.9 [facility] Comment on above: Order Comment: Speci men Type: BLOOD SPECIMEN Performed By: #### 2 3-8, ####[facility]ATORYCLIA [id number] [place] [address] ALP [Catalytic activity/Vol] 56 U/L Normal 34-123 [facility] Comment on above: Order Comment: Speci men Type: BLOOD SPECIMEN Performed By: #### 2 8, ####[facility]ATORYCLIA [id number] [place] [address] ALT With P-5'-P [Catalytic activity/Vol] 22 U/L Normal 7-38 [facility] Comment on above: Order Comment: Speci men Type: BLOOD SPECIMEN Performed By: #### 2 8, ####[facility]ATORYCLIA [id number] [place] [address] Anion gap [Moles/Vol] 10 mmol/L Normal 9-18 [facility] Comment on above: Order Comment: Speci men Type: BLOOD SPECIMEN Performed By: #### 2 8, ####[facility]ATORYCLIA [id number] [place] [address] AST With P-5'-P [Catalytic activity/Vol] 45 U/L High 13-35 [facility] Comment on above: Order Comment: Speci men Type: BLOOD SPECIMEN Performed By: #### 2 4323-8, ####[facility]ATORYCLIA [id number] [place] [address] Bilirubin [Mass/Vol] 0.7 mg/dL Normal 0.2-1.3 [facility] Comment on above: Order Comment: Speci men Type: BLOOD SPECIMEN Performed By: #### 2 4323-8, ####[facility]ATORYCLIA [id number] [place] [address] Calcium [Mass/Vol] 8.5 mg/dL Normal 8.5-10.2 [facility] Comment on above: Order Comment: Speci men Type: BLOOD SPECIMEN Performed By: #### 2 8, ####[facility]ATORYCLIA [id number] [place] [address] Chloride [Moles/Vol] 104 mmol/L Normal 97-105 [facility] Comment on above: Order Comment: Speci men Type: BLOOD SPECIMEN Performed By: #### 2 8, ####[facility]ATORYCLIA [id number] [place] [address] CO2 [Moles/Vol] 22 mmol/L Normal 22-30 [facility] Comment on above: Order Comment: Speci men Type: BLOOD SPECIMEN Performed By: #### 2 432-8, ####[facility]ORYCLIA [id number] [place] [address] Creatinine [Mass/Vol] 0.82 mg/dL Normal 0.58-0.96 [facility] Comment on above: Order Comment: Speci men Type: BLOOD SPECIMEN Performed By: #### 2 432-8, ####[facility]ORYCLIA [id number] [place] [address] GFR/1.73 sq M.predicted MDRD (S/P/Bld) [Vol rate/Area] mL/min/{1.73_m2} Normal [facility] Comment on above: Order Comment: Speci [...] actual GFR. Performed By: #### 2 43210-12, ####[facility]ATORYCLIA [id number] [place] [address] Glucose [Mass/Vol] 78 mg/dL Normal 74-99 [facility] Comment on above: Order Comment: Speci [facility] Type: BLOOD SPECIMEN Result Comment: The [place] Diabetes Association (ADA) provides guidance for cutoff [...] Standards of Medical Care in Diabetes 2016, [place] [employer]. Diabetes Care. 2016.39(Suppl 1). Performed By: #### 2 4323-03, ####[facility]ATORYCLIA [id number] [place] [address] Potassium [Moles/Vol] 4.3 mmol/L Normal 3.7-5.1 [facility] Comment on above: Order Comment: [facility] Type: BLOOD SPECIMEN Performed By: #### 2 43210-12, ####[facility]ATORYCLIA [id number] [place] [address] Protein [Mass/Vol] 5.2 g/dL Low 6.3-8.0 [facility] Comment on above: Order Comment: Speci men Type: BLOOD SPECIMEN Performed By: #### 2 4323-8, 56225-2 ####[facility]ATORYCLIA [id number] [place] [address] Sodium [Moles/Vol] 136 mmol/L Normal 136-144 [facility] Comment on above: Order Comment: Speci men Type: BLOOD SPECIMEN Performed By: #### 2 4323-8, 60717-4 ####[facility]ATORYCLIA [id number] [place] [address] Urea nitrogen [Mass/Vol] 11 mg/dL Normal 7-21 [facility] Comment on above: Order Comment: Speci men Type: BLOOD SPECIMEN Performed By: #### 2 4323-8, 72736-1 ####[facility]ATORYCLIA [id number] [place] [address] HEMATOCRIT (HCT)on 1 Hematocrit (Bld) [Volume fraction] 25.9 % Low 36.0-46.0 [facility] Comment on above: Order Comment: Speci men Type: BLOOD SPECIMEN Performed By: #### H GB, HCT ####[facility]ATORYCLIA [id number] [place] [address] HEMOGLOBIN (HGB)on 1 Hemoglobin (Bld) [Mass/Vol] 8.7 g/dL Low 11.5-15.5 [facility] Comment on above: Order Comment: Speci men Type: BLOOD SPECIMEN Performed By: #### H GB, HCT ####[facility]ATORYCLIA [id number] [place] [address] HISTORY PHYSICALon 1 HISTORY PHYSICAL Normal [facility] IR EMBO ARTERIAL/MAPPINGon 0 10-29-2020 IR EMBO ARTERIAL/MAPPING Final Report DATE OF EXAM: Oct 29 2020 4:22PM [place] [address] [facility] EMBO ARTERIAL/MAPPING / PROCEDURE REASON: Hematoma Physician [...] The micropuncture needle was withdrawn. A 4 Japanese dilator was then inserted over the guidewire. The introducer and guidewire were removed. A [place] guidewire is introduced and advanced into the distal abdominal aorta. The 4 Japanese dilator was withdrawn. A 5 Japanese sheath was then inserted over the guidewire. The introducer was removed. A 5 Japanese Sos Omni select catheter was then inserted [...] select catheter was then removed. A 4 Japanese angled glide catheter was then inserted over [...] point the procedure was terminated. The 4 Japanese glide catheter was withdrawn. The left common [...] with administration of agent, ends when continuous [id number] time ends): 35 minutes Patient monitoring: I [...] additional antibiotics were administered for this procedure. 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 Transcribe Date/Time: Oct 29 2020 7:53P Dictated by : CAESAR FINCH MD This examination was interpreted and the report reviewed and electronically signed by: CAESAR FINCH MD on Oct 29 2020 8:04PM EST Normal [facility] Magnesium SerPl-ncon 10-29 Magnesium [Mass/Vol] 1.7 mg/dL Normal 1.7-2.3 [facility] Comment on above: Order Comment: Speci men Type: BLOOD SPECIMEN Performed By: #### 2 4323-8, 65610-8 ####[facility]ORATORYCLIA [id number] [place] [address] PT panel Coag (PPP)on 2020 INR Coag (PPP) [Relative time] 1.9 {INR} High 0.9-1.3 [facility] Comment on above: Order Comment: Speci men Type: BLOOD SPECIMEN Result Comment: Nicolasa min K Antagonist (VKA) Therapeutic Range: INR 2 to 3 (Target INR of 2.5)Note: For patients treated with VKA drugs, such as warfarin, the [place] [employer]icians 2012 Guideline recommends [...] al. Chest 2012, 141:7S-47SKunal RA, et al. [facility] 2017, 70: 252-289 Performed By: #### 3 4528-0 ####[facility]ORATORYCLIA [id number] [place] [address] PT Coag (PPP) [Time] 18.7 s High 9.7-13.0 [facility] Comment on above: Order Comment: Speci men Type: BLOOD SPECIMEN Performed By: #### 3 4528-0 ####[facility]ATORYCLIA [id number] [place] [address] THERAPY NTon 10-29-2020 THERAPY NT Normal [facility] Basic metabolic 2000 panelon 10-28-2020 Anion gap [Moles/Vol] 10 mmol/L Normal 9-18 [facility] Comment on above: Order Comment: Speci men Type: BLOOD SPECIMEN Performed By: #### 2 4321-2, , 2776-08 ####[facility]ATORYCLIA [id number] [place] [address] Calcium [Mass/Vol] 8.7 mg/dL Normal 8.5-10.2 [facility] Comment on above: Order Comment: Speci men Type: BLOOD SPECIMEN Performed By: #### 2 4321-2, , 2776-08 ####[facility]ATORYCLIA [id number] [place] [address] Chloride [Moles/Vol] 106 mmol/L High 97-105 [facility] Comment on above: Order Comment: Speci men Type: BLOOD SPECIMEN Performed By: #### 2 4321-2, , 2776-08 ####[facility]ATORYCLIA [id number] [place] [address] CO2 [Moles/Vol] 21 mmol/L Low 22-30 [facility] Comment on above: Order Comment: Speci men Type: BLOOD SPECIMEN Performed By: #### 2 4321-2, , 2776-08 ####[facility]ORYCLIA [id number] [place] [address] Creatinine [Mass/Vol] 0.88 mg/dL Normal 0.58-0.96 [facility] Comment on above: Order Comment: Speci men Type: BLOOD SPECIMEN Performed By: #### 2 4321-2, , 2776-08 ####[facility]ATORYCLIA [id number] [place] [address] GFR/1.73 sq M.predicted MDRD (S/P/Bld) [Vol rate/Area] mL/min/{1.73_m2} Normal [facility] Comment on above: Order Comment: Speci [...] reflect actual GFR. Performed By: #### 2 4320-2, , 2776-08 ####[facility]ATORYCLIA [id number] [place] [address] Glucose [Mass/Vol] 78 mg/dL Normal 74-99 [facility] Comment on above: Order Comment: Speci men Type: BLOOD SPECIMEN Result Comment: The [place] Diabetes Association (ADA) provides guidance for cutoff [...] Standards of Medical Care in Diabetes 2016, [place] [employer]. Diabetes Care. 2016.39(Suppl 1). Performed By: #### 2 4320-, , 2776-08 ####[facility]ATORYCLIA [id number] [place] [address] Potassium [Moles/Vol] 4.2 mmol/L Normal 3.7-5.1 [facility] Comment on above: Order Comment: Speci men Type: BLOOD SPECIMEN Performed By: #### 2 4320-2, , 2776-08 ####[facility]ATORYCLIA [id number] [place] [address] Sodium [Moles/Vol] 137 mmol/L Normal 136-144 [facility] Comment on above: Order Comment: Speci men Type: BLOOD SPECIMEN Performed By: #### 2 4321-2, 54626-4, 2776- ####[facility]ORYCLIA [id number] [place] [address] Urea nitrogen [Mass/Vol] 15 mg/dL Normal 7- [facility] Comment on above: Order Comment: Speci men Type: BLOOD SPECIMEN Performed By: #### 2 4321-2, 93750-4, 2776- ####[facility]ORYCLIA [id number] [place] [address] CONSULT PROGon 10-28-2020 CONSULT PROG Normal [facility] CONSULT PROG Normal [facility] HEMATOCRIT (HCT)on 1 Hematocrit (Bld) [Volume fraction] 21.5 % Low 36.0-46.0 [facility] Comment on above: Order Comment: Speci men Type: BLOOD SPECIMEN Performed By: #### H GB, HCT ####[facility]ATORYCLIA [id number] [place] [address] Hematocrit (Bld) [Volume fraction] 22.8 % Low 36.0-46.0 [facility] Comment on above: Order Comment: Speci men Type: BLOOD SPECIMEN Performed By: #### H GB, HCT ####[facility]ORYCLIA [id number] [place] [address] Hematocrit (Bld) [Volume fraction] 24.4 % Low 36.0-46.0 [facility] Comment on above: Order Comment: Speci men Type: BLOOD SPECIMEN Performed By: #### H CT, HGB ####[facility]ORYCLIA [id number] [place] [address] Hematocrit (Bld) [Volume fraction] 24.2 % Low 36.0-46.0 [facility] Comment on above: Order Comment: Speci men Type: BLOOD SPECIMEN Performed By: #### H CT, HGB ####[facility]ORYCLIA [id number] [place] [address] HEMOGLOBIN (HGB)on 1 Hemoglobin (Bld) [Mass/Vol] 7.1 g/dL Low 11.5-15.5 [facility] Comment on above: Order Comment: Speci men Type: BLOOD SPECIMEN Performed By: #### H GB, HCT ####[facility]ATORYCLIA [id number] [place] [address] Hemoglobin (Bld) [Mass/Vol] 7.6 g/dL Low 11.5-15.5 [facility] Comment on above: Order Comment: Speci men Type: BLOOD SPECIMEN Performed By: #### H GB, HCT ####[facility]ATORYCLIA [id number] [place] [address] Hemoglobin (Bld) [Mass/Vol] 8.0 g/dL Low 11.5-15.5 [facility] Comment on above: Order Comment: Speci men Type: BLOOD SPECIMEN Performed By: #### H CT, HGB ####[facility]ATORYCLIA [id number] [place] [address] Hemoglobin (Bld) [Mass/Vol] 8.0 g/dL Low 11.5-15.5 [facility] Comment on above: Order Comment: Speci men Type: BLOOD SPECIMEN Performed By: #### H CT, HGB ####[facility]ORATORYCLIA [id number] [place] [address] Magnesium SerPl-mCncon 10-28 Magnesium [Mass/Vol] 1.8 mg/dL Normal 1.7-2.3 [facility] Comment on above: Order Comment: Speci men Type: BLOOD SPECIMEN Performed By: #### 2 4321-2, 67161-7, 2777-1 ####[facility]ORATORYCLIA [id number] [place] [address] NUTRITIONon 10-28-2020 NUTRITION Normal [facility] PT panel Coag (PPP)on 2020 INR Coag (PPP) [Relative time] 3.3 {INR} High 0.9-1.3 [facility] Comment on above: Order Comment: Speci men Type: BLOOD SPECIMEN Result Comment: Nicolasa min K Antagonist (VKA) Therapeutic Range: INR 2 to 3 (Target INR of 2.5)Note: For patients treated with VKA drugs, such as warfarin, the [employer] 2012 Guideline recommends [...] al. Chest 2012, 141:7S-47SNishimura RA, et al. [facility] 2017, 70: 252-289 Performed By: #### 3 4528-0 ####[facility] LABORATORYCLIA [id number] [place] [address] PT Coag (PPP) [Time] 32.4 s High 9.7-13.0 [facility] Comment on above: Order Comment: Speci men Type: BLOOD SPECIMEN Performed By: #### 3 4528-0 ####[facility] LABORATORYCLIA [id number] [place] [address] Phosphate SerPl-mCncon 10-28 Phosphate [Mass/Vol] 3.1 mg/dL Normal 2.7-4.8 [facility] Comment on above: Order Comment: Speci men Type: BLOOD SPECIMEN Performed By: #### 2 4321-2, , 2776-08 ####[facility] LABORATORYCLIA [id number] [place] [address] THERAPY NTon 10-28-2020 THERAPY NT Normal [facility] Basic metabolic 2000 panelon 10-27-2020 Anion gap [Moles/Vol] 10 mmol/L Normal 9-18 [facility] Comment on above: Order Comment: Speci men Type: BLOOD SPECIMEN Performed By: #### 2 4321-2, , 2776- ####[facility] LABORATORYCLIA [id number] [place] [address] Calcium [Mass/Vol] 8.7 mg/dL Normal 8.5-10.2 [facility] Comment on above: Order Comment: Speci men Type: BLOOD SPECIMEN Performed By: #### 2 4321-2, , 2776-08 ####[facility] LABORATORYCLIA [id number] [place] [address] Chloride [Moles/Vol] 102 mmol/L Normal 97-105 [facility] Comment on above: Order Comment: Speci men Type: BLOOD SPECIMEN Performed By: #### 2 4321-2, , 2776-08 ####[facility] LABORATORYCLIA [id number] [place] [address] CO2 [Moles/Vol] 22 mmol/L Normal 22-30 [facility] Comment on above: Order Comment: Speci men Type: BLOOD SPECIMEN Performed By: #### 2 4321-2, , 2776-08 ####[facility] LABORATORYCLIA [id number] [place] [address] Creatinine [Mass/Vol] 1.12 mg/dL High 0.58-0.96 [facility] Comment on above: Order Comment: Speci men Type: BLOOD SPECIMEN Performed By: #### 2 4321-2, , 2776-08 ####[facility] LABORATORYCLIA [id number] [place] [address] GFR/1.73 sq M.predicted MDRD (S/P/Bld) [Vol rate/Area] mL/min/{1.73_m2} Normal [facility] Comment on above: Order Comment: Speci [...] reflect actual GFR. Performed By: #### 2 4320-, , 2776-08 ####[facility] LABORATORYCLIA [id number] [place] [address] Glucose [Mass/Vol] 90 mg/dL Normal 74-99 [facility] Comment on above: Order Comment: Speci men Type: BLOOD SPECIMEN Result Comment: The [place] [employer] (ADA) provides guidance for cutoff [...] Standards of Medical Care in Diabetes 2016, [place] [employer]. Diabetes Care. 2016.39(Suppl 1). Performed By: #### 2 2, , 2776-08 ####[facility] LABORATORYCLIA [id number] [place] [address] Potassium [Moles/Vol] 4.7 mmol/L Normal 3.7-5.1 [facility] Comment on above: Order Comment: Speci men Type: BLOOD SPECIMEN Performed By: #### 2 4320-2, , 2776-08 ####[facility] LABORATORYCLIA [id number] [place] [address] Sodium [Moles/Vol] 134 mmol/L Low 136-144 [facility] Comment on above: Order Comment: Speci men Type: BLOOD SPECIMEN Performed By: #### 2 4320-2, , 2776-08 ####[facility] LABORATORYCLIA [id number] [place] [address] Urea nitrogen [Mass/Vol] 27 mg/dL High 7-21 [facility] Comment on above: Order Comment: Speci men Type: BLOOD SPECIMEN Performed By: #### 2 4321-2, 09440-9, 2777-1 ####[facility]ORATORYCLIA [id number] [place] [address] CASE MANAGEMon 10-27-2020 CASE MANAGEM Normal [facility] CBC W Auto Differential pane l (Bld)on 10-27-2020 Basophils (Bld) [#/Vol] 0.07 10*3/uL Normal <0.11 [facility] Comment on above: Order Comment: Speci men Type: BLOOD SPECIMEN Performed By: #### 5 7021-8 ####[facility]ATORYCLIA [id number] [place] [address] Basophils/100 WBC (Bld) 0.6 % Normal [facility] Comment on above: Order Comment: Speci men Type: BLOOD SPECIMEN Performed By: #### 5 7021-8 ####[facility]ORATORYCLIA [id number] [place] [address] Differential cell count method Nom (Bld) Auto Normal [facility] Comment on above: Order Comment: Speci men Type: BLOOD SPECIMEN Performed By: #### 5 7021-8 ####[facility]ATORYCLIA [id number] [place] [address] Eosinophils (Bld) [#/Vol] 0.14 10*3/uL Normal <0.46 [facility] Comment on above: Order Comment: Speci men Type: BLOOD SPECIMEN Performed By: #### 5 7021-8 ####[facility]ATORYCLIA [id number] [place] [address] Eosinophils/100 WBC (Bld) 1.1 % Normal [facility] Comment on above: Order Comment: Speci men Type: BLOOD SPECIMEN Performed By: #### 5 7021-8 ####[facility]ATORYCLIA [id number] [place] [address] Erythrocyte distribution width (RBC) [Ratio] 14.0 % Normal 11.5-15.0 [facility] Comment on above: Order Comment: Speci men Type: BLOOD SPECIMEN Performed By: #### 5 7021-8 ####[facility]ORATORYCLIA [id number] [place] [address] Hematocrit (Bld) [Volume fraction] 22.1 % Low 36.0-46.0 [facility] Comment on above: Order Comment: Speci men Type: BLOOD SPECIMEN Performed By: #### 5 7021-8 ####[facility]ATORYCLIA [id number] [place] [address] Hemoglobin (Bld) [Mass/Vol] 7.5 g/dL Low 11.5-15.5 [facility] Comment on above: Order Comment: Speci men Type: BLOOD SPECIMEN Performed By: #### 5 7021-8 ####[facility]ATORYCLIA [id number] [place] [address] IMMATURE GRAN % 0.8 % Normal [facility] Comment on above: Order Comment: Speci men Type: BLOOD SPECIMEN Performed By: #### 5 7021-8 ####[facility]ORATORYCLIA [id number] [place] [address] IMMATURE GRAN ABS 0.10 k/uL High <0.10 [facility] Comment on above: Order Comment: Speci men Type: BLOOD SPECIMEN Performed By: #### 5 7021-8 ####[facility]ORATORYCLIA [id number] [place] [address] Lymphocytes (Bld) [#/Vol] 2.06 10*3/uL Normal 1.00-4.00 [facility] Comment on above: Order Comment: Speci men Type: BLOOD SPECIMEN Performed By: #### 5 7021-8 ####[facility]ORATORYCLIA [id number] [place] [address] Lymphocytes/100 WBC (Bld) 16.7 % Normal [facility] Comment on above: Order Comment: Speci men Type: BLOOD SPECIMEN Performed By: #### 5 7021-8 ####[facility]ORATORYCLIA [id number] [place] [address] MCH (RBC) [Entitic mass] 33.8 pg Normal 26.0-34.0 [facility] Comment on above: Order Comment: Speci men Type: BLOOD SPECIMEN Performed By: #### 5 7021-8 ####[facility] LABORATORYCLIA [id number] [place] [address] MCHC (RBC) [Mass/Vol] 33.9 g/dL Normal 30.5-36.0 [facility] Comment on above: Order Comment: Speci men Type: BLOOD SPECIMEN Performed By: #### 5 7021-8 ####[facility] LABORATORYCLIA [id number] [place] [address] MCV (RBC) [Entitic vol] 99.5 fL Normal 80.0-100.0 [facility] Comment on above: Order Comment: Speci men Type: BLOOD SPECIMEN Performed By: #### 5 7021-8 ####[facility] LABORATORYCLIA [id number] [place] [address] Monocytes (Bld) [#/Vol] 0.85 10*3/uL Normal <0.87 [facility] Comment on above: Order Comment: Speci men Type: BLOOD SPECIMEN Performed By: #### 5 7021-8 ####[facility] LABORATORYCLIA [id number] [place] [address] Monocytes/100 WBC (Bld) 6.9 % Normal [facility] Comment on above: Order Comment: Speci men Type: BLOOD SPECIMEN Performed By: #### 5 7021-8 ####[facility] LABORATORYCLIA [id number] [place] [address] Neutrophils (Bld) [#/Vol] 9.09 10*3/uL High 1.45-7.50 [facility] Comment on above: Order Comment: Speci men Type: BLOOD SPECIMEN Performed By: #### 5 7021-8 ####[facility] LABORATORYCLIA [id number] [place] [address] Neutrophils/100 WBC (Bld) 73.9 % Normal [facility] Comment on above: Order Comment: Speci men Type: BLOOD SPECIMEN Performed By: #### 5 7021-8 ####[facility] LABORATORYCLIA [id number] [place] [address] Nucleated RBC (Bld) [#/Vol] 10*3/uL Normal <0.01 [facility] Comment on above: Order Comment: Speci men Type: BLOOD SPECIMEN Performed By: #### 5 7021-8 ####[facility] LABORATORYCLIA [id number] [place] [address] Nucleated RBC/100 WBC (Bld) [Ratio] 0.0 /100 WBC Normal 0.0 [facility] Comment on above: Order Comment: Speci men Type: BLOOD SPECIMEN Performed By: #### 5 7021-8 ####[facility] LABORATORYCLIA [id number] [place] [address] Platelet mean volume (Bld) [Entitic vol] 10.5 fL Normal 9.0-12.7 [facility] Comment on above: Order Comment: Speci men Type: BLOOD SPECIMEN Performed By: #### 5 7021-8 ####[facility] LABORATORYCLIA [id number] [place] [address] Platelets (Bld) [#/Vol] 263 10*3/uL Normal 150-400 [facility] Comment on above: Order Comment: Speci men Type: BLOOD SPECIMEN Performed By: #### 5 7021-8 ####[facility]ORATORYCLIA [id number] [place] [address] RBC (Bld) [#/Vol] 2.22 10*6/uL Low 3.90-5.20 [facility] Comment on above: Order Comment: Speci men Type: BLOOD SPECIMEN Performed By: #### 5 7021-8 ####[facility] LABORATORYCLIA [id number] [place] [address] WBC (Bld) [#/Vol] 12.31 10*3/uL High 3.70-11.00 [facility] Comment on above: Order Comment: Speci men Type: BLOOD SPECIMEN Performed By: #### 5 7021-8 ####[facility] LABORATORYCLIA [id number] [place] [address] CBC panel Auto (Bld)on 10-27 Erythrocyte distribution width (RBC) [Ratio] 14.1 % Normal 11.5-15.0 [facility] Comment on above: Order Comment: Speci men Type: BLOOD SPECIMEN Performed By: #### 5 8410-2 ####[facility] LABORATORYCLIA [id number] [place] [address] Hematocrit (Bld) [Volume fraction] 20.9 % Low 36.0-46.0 [facility] Comment on above: Order Comment: Speci men Type: BLOOD SPECIMEN Performed By: #### 5 8410-2 ####[facility] LABORATORYCLIA [id number] [place] [address] Hemoglobin (Bld) [Mass/Vol] 7.0 g/dL Low 11.5-15.5 [facility] Comment on above: Order Comment: Speci men Type: BLOOD SPECIMEN Performed By: #### 5 8410-2 ####[facility] LABORATORYCLIA [id number] [place] [address] MCH (RBC) [Entitic mass] 33.2 pg Normal 26.0-34.0 [facility] Comment on above: Order Comment: Speci men Type: BLOOD SPECIMEN Performed By: #### 5 8410-2 ####[facility] LABORATORYCLIA [id number] [place] [address] MCHC (RBC) [Mass/Vol] 33.5 g/dL Normal 30.5-36.0 [facility] Comment on above: Order Comment: Speci men Type: BLOOD SPECIMEN Performed By: #### 5 8410-2 ####[facility] LABORATORYCLIA [id number] [place] [address] MCV (RBC) [Entitic vol] 99.1 fL Normal 80.0-100.0 [facility] Comment on above: Order Comment: Speci men Type: BLOOD SPECIMEN Performed By: #### 5 8410-2 ####[facility]ORATORYCLIA [id number] [place] [address] Nucleated RBC (Bld) [#/Vol] 10*3/uL Normal <0.01 [facility] Comment on above: Order Comment: Speci men Type: BLOOD SPECIMEN Performed By: #### 5 8410-2 ####[facility]ORATORYCLIA [id number] [place] [address] Platelet mean volume (Bld) [Entitic vol] 10.2 fL Normal 9.0-12.7 [facility] Comment on above: Order Comment: Speci men Type: BLOOD SPECIMEN Performed By: #### 5 8410-2 ####[facility]ORATORYCLIA [id number] [place] [address] Platelets (Bld) [#/Vol] 240 10*3/uL Normal 150-400 [facility] Comment on above: Order Comment: Speci men Type: BLOOD SPECIMEN Performed By: #### 5 8410-2 ####[facility]ORATORYCLIA [id number] [place] [address] RBC (Bld) [#/Vol] 2.11 10*6/uL Low 3.90-5.20 [facility] Comment on above: Order Comment: Speci men Type: BLOOD SPECIMEN Performed By: #### 5 8410-2 ####[facility]ORATORYCLIA [id number] [place] [address] WBC (Bld) [#/Vol] 11.16 10*3/uL High 3.70-11.00 [facility] Comment on above: Order Comment: Speci men Type: BLOOD SPECIMEN Performed By: #### 5 8410-2 ####[facility] LABORATORYCLIA [id number] [place] [address] CONSULTon 10-27-2020 CONSULT Normal [facility] CONSULT Normal [facility] CONSULT PROGon 10-27-2020 CONSULT PROG Normal [facility] HEMATOCRIT (HCT)on Hematocrit (Bld) [Volume fraction] 25.3 % Low 36.0-46.0 [facility] Comment on above: Order Comment: Speci men Type: BLOOD SPECIMEN Performed By: #### H CT, HGB ####[facility] LABORATORYCLIA [id number] [place] [address] Hematocrit (Bld) [Volume fraction] 21.4 % Low 36.0-46.0 [facility] Comment on above: Order Comment: Speci men Type: BLOOD SPECIMEN Performed By: #### H GB, HCT ####[facility]ORATORYCLIA [id number] [place] [address] HEMOGLOBIN (HGB)on Hemoglobin (Bld) [Mass/Vol] 8.4 g/dL Low 11.5-15.5 [facility] Comment on above: Order Comment: Speci men Type: BLOOD SPECIMEN Performed By: #### H CT, HGB ####[facility] LABORATORYCLIA [id number] [place] [address] Hemoglobin (Bld) [Mass/Vol] 7.3 g/dL Low 11.5-15.5 [facility] Comment on above: Order Comment: Speci men Type: BLOOD SPECIMEN Performed By: #### H GB, HCT ####[facility]ORATORYCLIA [id number] [place] [address] Magnesium SerPl-mCncon 10-27 Magnesium [Mass/Vol] 1.8 mg/dL Normal 1.7-2.3 [facility] Comment on above: Order Comment: Speci men Type: BLOOD SPECIMEN Performed By: #### 2 4321-2, 25449-1, 2777-1 ####[facility] LABORATORYCLIA [id number] [place] [address] PT panel Coag (PPP)on 2020 INR Coag (PPP) [Relative time] 3.4 {INR} High 0.9-1.3 [facility] Comment on above: Order Comment: Speci men Type: BLOOD SPECIMEN Result Comment: Nicolasa min K Antagonist (VKA) Therapeutic Range: INR 2 to 3 (Target INR of 2.5)Note: For patients treated with VKA drugs, such as warfarin, the [place] [employer] 2012 Guideline recommends [...] al. Chest 2012, 141:7S-47SNishlinda RA, et al. [facility] 2017, 70: 252-289 Performed By: #### 3 4528-0 ####[facility]ORATORYCLIA [id number] [place] [address] PT Coag (PPP) [Time] 32.9 s High 9.7-13.0 [facility] Comment on above: Order Comment: Speci men Type: BLOOD SPECIMEN Performed By: #### 3 4528-0 ####[facility]ORATORYCLIA [id number] [place] [address] INR Coag (PPP) [Relative time] 3.2 {INR} High 0.9-1.3 [facility] Comment on above: Order Comment: Speci men Type: BLOOD SPECIMEN Result Comment: Nicolasa min K Antagonist (VKA) Therapeutic Range: INR 2 to 3 (Target INR of 2.5)Note: For patients treated with VKA drugs, such as warfarin, the [place] [employer] 2012 Guideline recommends [...] [facility] 2017, 70: 252-289 Performed By: #### 1 4979-9, 05261-6 ####[facility]ORATORYCLIA [id number] [place] [address] PT Coag (PPP) [Time] 31.3 s High 9.7-13.0 [facility] Comment on above: Order Comment: Speci men Type: BLOOD SPECIMEN Performed By: #### 1 4979-9, 67507-5 ####[facility]ORATORYCLIA [id number] [place] [address] Phosphate SerPl-mCncon 10-27 Phosphate [Mass/Vol] 4.3 mg/dL Normal 2.7-4.8 [facility] Comment on above: Order Comment: Speci men Type: BLOOD SPECIMEN Performed By: #### 2 4321-2, 69726-9, 2777-1 ####[facility]ORATORYCLIA [id number] [place] [address] TYPE AND SCREENon 10-27-2020 ABO AB Normal [facility] Comment on above: Order Comment: Speci men Type: BLOOD SPECIMEN Performed By: #### T SCR ####[facility] BLO[facility] BANKCLIA [id number] HISTORICAL AB SCR STATUS Negative [facility] Comment on above: Order Comment: Speci men Type: BLOOD SPECIMEN Performed By: #### T SCR ####[facility] BLO[facility] BANKCLIA [id number] Rh Nom (Bld) Positive Normal [facility] Comment on above: Order Comment: Speci men Type: BLOOD SPECIMEN Performed By: #### T SCR ####[facility] BLOOD BANKCLIA [id number] TYPE AND SCREEN EXPIRATION 10/30/2020 23:59 Normal [facility] Comment on above: Order Comment: Speci men Type: BLOOD SPECIMEN Performed By: #### T SCR ####[facility] BLOOD BANKCLIA [id number] US DOPPLER LTDon 10-27-2020 US DOPPLER LTD Normal [facility] US PSEUDOANEURYSMon 10-28-19 US PSEUDOANEURYSM Final Report DATE OF EXAM: Oct 27 2020 1:19PM [facility] US PSEUDOANEURYSM / PROCEDURE REASON: [...] common femoral artery. There is no pseudoaneurysm. 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 Transcribe Date/Time: Oct 27 2020 1:56P Dictated by : TODD HARVEY MD This examination was interpreted and the report reviewed and electronically signed by: TODD HARVEY MD on Oct 27 2020 2:03PM EST Normal [facility] aPTT PPPon 10-27-2020 aPTT Coag (PPP) [Time] 44.4 s High 23.0-32.4 [facility] Comment on above: Order Comment: Speci men Type: BLOOD SPECIMEN Performed By: #### 1 4979-9, 84538-0 ####[facility] LABORATORYCLIA [id number] [place] [address] ALLIED HEALTHon 10-26-2020 ALLIED HEALTH Normal [facility] Basic metabolic 2000 panelon 10-26-2020 Anion gap [Moles/Vol] 11 mmol/L Normal 9-18 [facility] Comment on above: Order Comment: Speci men Type: BLOOD SPECIMEN Performed By: #### 2 4321-2, 11133-6, 2777-1 ####[facility] LABORATORYCLIA [id number] [place] [address] Calcium [Mass/Vol] 9.6 mg/dL Normal 8.5-10.2 [facility] Comment on above: Order Comment: Speci men Type: BLOOD SPECIMEN Performed By: #### 2 4321-2, , 2776-08 ####[facility] LABORATORYCLIA [id number] [place] [address] Chloride [Moles/Vol] 102 mmol/L Normal 97-105 [facility] Comment on above: Order Comment: Speci men Type: BLOOD SPECIMEN Performed By: #### 2 4321-2, , 2776-08 ####[facility] LABORATORYCLIA [id number] [place] [address] CO2 [Moles/Vol] 22 mmol/L Normal 22-30 [facility] Comment on above: Order Comment: Speci men Type: BLOOD SPECIMEN Performed By: #### 2 4321-2, , 2776-08 ####[facility] LABORATORYCLIA [id number] [place] [address] Creatinine [Mass/Vol] 1.27 mg/dL High 0.58-0.96 [facility] Comment on above: Order Comment: Speci men Type: BLOOD SPECIMEN Performed By: #### 2 4321-2, , 2776-08 ####[facility] LABORATORYCLIA [id number] [place] [address] GFR/1.73 sq M.predicted MDRD (S/P/Bld) [Vol rate/Area] 53 mL/min/{1.73_m2} Normal [facility] Comment on above: Order Comment: Speci [...] reflect actual GFR. Performed By: #### 2 4320-2, , 2776-08 ####[facility] LABORATORYCLIA [id number] [place] [address] Glucose [Mass/Vol] 111 mg/dL High 74-99 [facility] Comment on above: Order Comment: Speci men Type: BLOOD SPECIMEN Result Comment: The [place] [employer] (ADA) provides guidance for cutoff [...] Standards of Medical Care in Diabetes 2016, [place] [employer]. Diabetes Care. 2016.39(Suppl 1). Performed By: #### 2 4320-2, , 2776-08 ####[facility] LABORATORYCLIA [id number] [place] [address] Potassium [Moles/Vol] 5.6 mmol/L High 3.7-5.1 [facility] Comment on above: Order Comment: Speci men Type: BLOOD SPECIMEN Performed By: #### 2 4320-2, , 2776-08 ####[facility] LABORATORYCLIA [id number] [place] [address] Sodium [Moles/Vol] 135 mmol/L Low 136-144 [facility] Comment on above: Order Comment: Speci men Type: BLOOD SPECIMEN Performed By: #### 2 1-2, , 2776-08 ####[facility] LABORATORYCLIA [id number] [place] [address] Urea nitrogen [Mass/Vol] 22 mg/dL High 7-21 [facility] Comment on above: Order Comment: Speci men Type: BLOOD SPECIMEN Performed By: #### 2 4321-2, 97896-8, 2777-1 ####[facility] LABORATORYCLIA [id number] [place] [address] CASE MGT INIT ASSESon 2020 CASE MGT INIT ASSES Normal [facility] CBC panel Auto (Bld)on 10-26 Erythrocyte distribution width (RBC) [Ratio] 13.7 % Normal 11.5-15.0 [facility] Comment on above: Order Comment: Speci men Type: BLOOD SPECIMEN Performed By: #### 5 8410-2 ####[facility] LABORATORYCLIA [id number] [place] [address] Hematocrit (Bld) [Volume fraction] 29.3 % Low 36.0-46.0 [facility] Comment on above: Order Comment: Speci men Type: BLOOD SPECIMEN Performed By: #### 5 8410-2 ####[facility] LABORATORYCLIA [id number] [place] [address] Hemoglobin (Bld) [Mass/Vol] 9.7 g/dL Low 11.5-15.5 [facility] Comment on above: Order Comment: Speci men Type: BLOOD SPECIMEN Performed By: #### 5 8410-2 ####[facility] LABORATORYCLIA [id number] [place] [address] MCH (RBC) [Entitic mass] 32.9 pg Normal 26.0-34.0 [facility] Comment on above: Order Comment: Speci men Type: BLOOD SPECIMEN Performed By: #### 5 8410-2 ####[facility] LABORATORYCLIA [id number] [place] [address] MCHC (RBC) [Mass/Vol] 33.1 g/dL Normal 30.5-36.0 [facility] Comment on above: Order Comment: Speci men Type: BLOOD SPECIMEN Performed By: #### 5 8410-2 ####[facility] LABORATORYCLIA [id number] [place] [address] MCV (RBC) [Entitic vol] 99.3 fL Normal 80.0-100.0 [facility] Comment on above: Order Comment: Speci men Type: BLOOD SPECIMEN Performed By: #### 5 8410-2 ####[facility] LABORATORYCLIA [id number] [place] [address] Nucleated RBC (Bld) [#/Vol] 10*3/uL Normal <0.01 [facility] Comment on above: Order Comment: Speci men Type: BLOOD SPECIMEN Performed By: #### 5 8410-2 ####[facility] LABORATORYCLIA [id number] [place] [address] Platelet mean volume (Bld) [Entitic vol] 10.2 fL Normal 9.0-12.7 [facility] Comment on above: Order Comment: Speci men Type: BLOOD SPECIMEN Performed By: #### 5 8410-2 ####[facility] LABORATORYCLIA [id number] [place] [address] Platelets (Bld) [#/Vol] 318 10*3/uL Normal 150-400 [facility] Comment on above: Order Comment: Speci men Type: BLOOD SPECIMEN Performed By: #### 5 8410-2 ####[facility] LABORATORYCLIA [id number] [place] [address] RBC (Bld) [#/Vol] 2.95 10*6/uL Low 3.90-5.20 [facility] Comment on above: Order Comment: Speci men Type: BLOOD SPECIMEN Performed By: #### 5 8410-2 ####[facility] LABORATORYCLIA [id number] [place] [address] WBC (Bld) [#/Vol] 13.01 10*3/uL High 3.70-11.00 [facility] Comment on above: Order Comment: Speci men Type: BLOOD SPECIMEN Performed By: #### 5 8410-2 ####[facility] LABORATORYCLIA [id number] [place] [address] CONSULT PROGon 10-26-2020 CONSULT PROG Normal [facility] CT ABD/PEL WO IVCONon 2020 CT ABD/PEL WO IVCON Final Report DATE OF EXAM: Oct 26 2020 8:08PM [facility] 0531 - CT ABD/PEL WO [...] compared to the ventricular wisdom suggesting anemia. Shingle Bolt Cutter (topogram) images: No additional findings. IMPRESSION: 1. [...] 10/27/2020 at 10:40 AM via verbal communication. 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 Transcribe Date/Time: Oct 27 2020 8:26A Dictated by : ELLIOTT DILL MD This examination was interpreted and the report reviewed and electronically signed by: ELLIOTT DILL MD on Oct 27 2020 11:13AM EST Normal [facility] Magnesium SerPl-mCncon 10-26 Magnesium [Mass/Vol] 1.8 mg/dL Normal 1.7-2.3 [facility] Comment on above: Order Comment: Speci men Type: BLOOD SPECIMEN Performed By: #### 2 4321-2, 40069-7, 2777-1 ####[facility] LABORATORYCLIA [id number] [place] [address] NURSING PROGon 10-26-2020 NURSING PROG Normal [facility] NURSING PROG Normal [facility] NURSING PROG Normal [facility] POTASSIUM BLDon 10-26-2020 Potassium [Moles/Vol] 4.9 mmol/L Normal 3.7-5.1 [facility] Comment on above: Order Comment: Speci men Type: BLOOD SPECIMEN Performed By: #### K 1 ####[facility]ATORYCLIA [id number] [place] [address] PT EDon 10-26-2020 PT ED Normal [facility] PT panel Coag (PPP)on 2020 INR Coag (PPP) [Relative time] 1.7 {INR} High 0.9-1.3 [facility] Comment on above: Order Comment: Speci men Type: BLOOD SPECIMEN Result Comment: Nicolasa min K Antagonist (VKA) Therapeutic Range: INR 2 to 3 (Target INR of 2.5)Note: For patients treated with VKA drugs, such as warfarin, the [employer] 2012 Guideline recommends [...] al. Chest 2012, 141:7S-47SNishlinda RA, et al. [facility] 2017, 70: 252-289 Performed By: #### 1 4979-9, 86308-5 ####[facility]ORATORYCLIA [id number] [place] [address] PT Coag (PPP) [Time] 16.8 s High 9.7-13.0 [facility] Comment on above: Order Comment: Speci men Type: BLOOD SPECIMEN Performed By: #### 1 4979-9, 97429-3 ####[facility]ATORYCLIA [id number] [place] [address] Phosphate SerPl-mCncon 10-26 Phosphate [Mass/Vol] 6.5 mg/dL High 2.7-4.8 [facility] Comment on above: Order Comment: Speci men Type: BLOOD SPECIMEN Performed By: #### 2 4321-2, 87712-5, 2777-1 ####[facility]ORYCLIA [id number] [place] [address] THERAPY NTon 10-26-2020 THERAPY NT Normal [facility] aPTT PPPon 10-26-2020 aPTT Coag (PPP) [Time] 79.4 s High 23.0-32.4 [facility] Comment on above: Order Comment: Speci men Type: BLOOD SPECIMEN Performed By: #### 1 4979-9 ####[facility]ORYCLIA [id number] [place] [address] aPTT Coag (PPP) [Time] 38.7 s High 23.0-32.4 [facility] Comment on above: Order Comment: Speci men Type: BLOOD SPECIMEN Performed By: #### 1 4979-9 ####[facility]ORYCLIA [id number] [place] [address] aPTT Coag (PPP) [Time] 45.1 s High 23.0-32.4 [facility] Comment on above: Order Comment: Speci men Type: BLOOD SPECIMEN Performed By: #### 1 4979-9 ####[facility]ATORYCLIA [id number] [place] [address] aPTT Coag (PPP) [Time] 97.7 s High 23.0-32.4 [facility] Comment on above: Order Comment: Speci men Type: BLOOD SPECIMEN Performed By: #### 1 4979-9 ####[facility]ORYCLIA [id number] [place] [address] aPTT Coag (PPP) [Time] 41.2 s High 23.0-32.4 [facility] Comment on above: Order Comment: Speci men Type: BLOOD SPECIMEN Performed By: #### 1 4979-9, 75111-5 ####[facility]ATORYCLIA [id number] [place] [address] ALLIED HEALTHon 10-25-2020 ALLIED HEALTH Normal [facility] Basic metabolic 2000 panelon 10-25-2020 Anion gap [Moles/Vol] 11 mmol/L Normal 9-18 [facility] Comment on above: Order Comment: Speci men Type: BLOOD SPECIMEN Performed By: #### 2 4321-2, , 2776-08 ####[facility]ATORYCLIA [id number] [place] [address] Calcium [Mass/Vol] 9.4 mg/dL Normal 8.5-10.2 [facility] Comment on above: Order Comment: Speci men Type: BLOOD SPECIMEN Performed By: #### 2 4321-2, , 2776-08 ####[facility]ORYCLIA [id number] [place] [address] Chloride [Moles/Vol] 103 mmol/L Normal 97-105 [facility] Comment on above: Order Comment: Speci men Type: BLOOD SPECIMEN Performed By: #### 2 4321-2, , 2776-08 ####[facility]ORATORYCLIA [id number] [place] [address] CO2 [Moles/Vol] 23 mmol/L Normal 22-30 [facility] Comment on above: Order Comment: Speci men Type: BLOOD SPECIMEN Performed By: #### 2 4321-2, , 2776-08 ####[facility]ATORYCLIA [id number] [place] [address] Creatinine [Mass/Vol] 0.95 mg/dL Normal 0.58-0.96 [facility] Comment on above: Order Comment: Speci men Type: BLOOD SPECIMEN Performed By: #### 2 4321-2, , 2776-08 ####[facility]ATORYCLIA [id number] [place] [address] GFR/1.73 sq M.predicted MDRD (S/P/Bld) [Vol rate/Area] mL/min/{1.73_m2} Normal [facility] Comment on above: Order Comment: Speci [...] Performed By: #### 2 4321-2, , 2776-08 ####[facility]ATORYCLIA [id number] [place] [address] Glucose [Mass/Vol] 87 mg/dL Normal 74-99 [facility] Comment on above: Order Comment: Speci men Type: BLOOD SPECIMEN Result Comment: The [place] [employer] (ADA) provides guidance for cutoff [...] Standards of Medical Care in Diabetes 2016, [place] [employer]. Diabetes Care. 2016.39(Suppl 1). Performed By: #### 2 4321-2, , 2776-08 ####[facility]ATORYCLIA [id number] [place] [address] Potassium [Moles/Vol] 4.5 mmol/L Normal 3.7-5.1 [facility] Comment on above: Order Comment: Speci men Type: BLOOD SPECIMEN Performed By: #### 2 4321-2, , 2776-08 ####[facility]ATORYCLIA [id number] [place] [address] Sodium [Moles/Vol] 137 mmol/L Normal 136-144 [facility] Comment on above: Order Comment: Speci men Type: BLOOD SPECIMEN Performed By: #### 2 4321-2, , 2776-08 ####[facility]ATORYCLIA [id number] [place] [address] Urea nitrogen [Mass/Vol] 15 mg/dL Normal 7- [facility] Comment on above: Order Comment: Speci men Type: BLOOD SPECIMEN Performed By: #### 2 4321-2, , 2776-08 ####[facility]ATORYCLIA [id number] [place] [address] CASE MANAGEMon 10-25-2020 CASE MANAGEM Normal [facility] CBC panel Auto (Bld)on 10-25 Erythrocyte distribution width (RBC) [Ratio] 13.7 % Normal 11.5-15.0 [facility] Comment on above: Order Comment: Speci men Type: BLOOD SPECIMEN Performed By: #### 5 8410-2 ####[facility]ATORYCLIA [id number] [place] [address] Hematocrit (Bld) [Volume fraction] 33.8 % Low 36.0-46.0 [facility] Comment on above: Order Comment: Speci men Type: BLOOD SPECIMEN Performed By: #### 5 8410-2 ####[facility]ORATORYCLIA [id number] [place] [address] Hemoglobin (Bld) [Mass/Vol] 11.4 g/dL Low 11.5-15.5 [facility] Comment on above: Order Comment: Speci men Type: BLOOD SPECIMEN Performed By: #### 5 8410-2 ####[facility]ATORYCLIA [id number] [place] [address] MCH (RBC) [Entitic mass] 33.1 pg Normal 26.0-34.0 [facility] Comment on above: Order Comment: Speci men Type: BLOOD SPECIMEN Performed By: #### 5 8410-2 ####[facility]ATORYCLIA [id number] [place] [address] MCHC (RBC) [Mass/Vol] 33.7 g/dL Normal 30.5-36.0 [facility] Comment on above: Order Comment: Speci men Type: BLOOD SPECIMEN Performed By: #### 5 8410-2 ####[facility]ORATORYCLIA [id number] [place] [address] MCV (RBC) [Entitic vol] 98.3 fL Normal 80.0-100.0 [facility] Comment on above: Order Comment: Speci men Type: BLOOD SPECIMEN Performed By: #### 5 8410-2 ####[facility]ATORYCLIA [id number] [place] [address] Nucleated RBC (Bld) [#/Vol] 10*3/uL Normal <0.01 [facility] Comment on above: Order Comment: Speci men Type: BLOOD SPECIMEN Performed By: #### 5 8410-2 ####[facility]ATORYCLIA [id number] [place] [address] Platelet mean volume (Bld) [Entitic vol] 9.8 fL Normal 9.0-12.7 [facility] Comment on above: Order Comment: Speci men Type: BLOOD SPECIMEN Performed By: #### 5 8410-2 ####[facility]ATORYCLIA [id number] [place] [address] Platelets (Bld) [#/Vol] 287 10*3/uL Normal 150-400 [facility] Comment on above: Order Comment: Speci men Type: BLOOD SPECIMEN Performed By: #### 5 8410-2 ####[facility]ATORYCLIA [id number] [place] [address] RBC (Bld) [#/Vol] 3.44 10*6/uL Low 3.90-5.20 [facility] Comment on above: Order Comment: Speci men Type: BLOOD SPECIMEN Performed By: #### 5 8410-2 ####[facility]ATORYCLIA [id number] [place] [address] WBC (Bld) [#/Vol] 7.94 10*3/uL Normal 3.70-11.00 [facility] Comment on above: Order Comment: Speci men Type: BLOOD SPECIMEN Performed By: #### 5 8410-2 ####[facility]ATORYCLIA [id number] [place] [address] CONSULT PROGon 10-25-2020 CONSULT PROG Normal [facility] Magnesium SerPl-mCncon 10-25 Magnesium [Mass/Vol] 1.7 mg/dL Normal 1.7-2.3 [facility] Comment on above: Order Comment: Speci men Type: BLOOD SPECIMEN Performed By: #### 2 4321-2, 66600-7, 2777-1 ####[facility]ATORYCLIA [id number] [place] [address] NURSING PROGon 10-25-2020 NURSING PROG Normal [facility] PT panel Coag (PPP)on 2020 INR Coag (PPP) [Relative time] 1.3 {INR} Normal 0.9-1.3 [facility] Comment on above: Order Comment: Speci men Type: BLOOD SPECIMEN Result Comment: Nicolasa min K Antagonist (VKA) Therapeutic Range: INR 2 to 3 (Target INR of 2.5)Note: For patients treated with VKA drugs, such as warfarin, the [employer] 2012 Guideline recommends [...] al. Chest 2012, 141:7S-47SNishimkarthik RA, et al. [facility] 2017, 70: 252-289 Performed By: #### 3 4528-0, 08597-5 ####[facility]ORATORYCLIA [id number] [place] [address] PT Coag (PPP) [Time] 13.1 s High 9.7-13.0 [facility] Comment on above: Order Comment: Speci men Type: BLOOD SPECIMEN Performed By: #### 3 4528-0, 96815-6 ####[facility]ATORYCLIA [id number] [place] [address] Phosphate SerPl-mCncon 10-25 Phosphate [Mass/Vol] 4.8 mg/dL Normal 2.7-4.8 [facility] Comment on above: Order Comment: Speci men Type: BLOOD SPECIMEN Performed By: #### 2 4321-2, 86297-1, 2777-1 ####[facility]ATORYCLIA [id number] [place] [address] THERAPY NTon 10-25-2020 THERAPY NT Normal [facility] XR ABDOMEN 1V SUPINEon 10-25 XR [...] follow-up with CT as clinical symptoms warrant. 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 Transcribe Date/Time: Oct 26 2020 9:15A Dictated by : DENICE RUTHERFORD MD This examination was interpreted and the report reviewed and electronically signed by: DENICE RUTHERFORD MD on Oct 26 2020 9:17AM EST Normal [facility] aPTT PPPon 10-25-2020 aPTT Coag (PPP) [Time] 83.5 s High 23.0-32.4 [facility] Comment on above: Order Comment: Speci men Type: BLOOD SPECIMEN Performed By: #### 1 4979-9 ####[facility]ATORYCLIA [id number] [place] [address] aPTT Coag (PPP) [Time] 38.2 s High 23.0-32.4 [facility] Comment on above: Order Comment: Speci men Type: BLOOD SPECIMEN Performed By: #### 1 4979-9 ####[facility]ATORYCLIA [id number] [place] [address] aPTT Coag (PPP) [Time] s High 23.0-32.4 [facility] Comment on above: Order Comment: Speci men Type: BLOOD SPECIMEN Performed By: #### 3 4528-0, 07568-8 ####[facility]ATORYCLIA [id number] [place] [address] Basic metabolic 2000 panelon 10-24-2020 Anion gap [Moles/Vol] 10 mmol/L Normal 9-18 [facility] Comment on above: Order Comment: Speci men Type: BLOOD SPECIMEN Performed By: #### 2 777-1, 34283-8, ####[facility]ATORYCLIA [id number] [place] [address] Calcium [Mass/Vol] 9.5 mg/dL Normal 8.5-10.2 [facility] Comment on above: Order Comment: Speci men Type: BLOOD SPECIMEN Performed By: #### 2 777-1, 79857-0, ####[facility]ATORYCLIA [id number] [place] [address] Chloride [Moles/Vol] 103 mmol/L Normal 97-105 [facility] Comment on above: Order Comment: Speci men Type: BLOOD SPECIMEN Performed By: #### 2 777-1, , ####[facility]ATORYCLIA [id number] [place] [address] CO2 [Moles/Vol] 23 mmol/L Normal 22-30 [facility] Comment on above: Order Comment: Speci men Type: BLOOD SPECIMEN Performed By: #### 2 777-1, , ####[facility]ATORYCLIA [id number] [place] [address] Creatinine [Mass/Vol] 0.93 mg/dL Normal 0.58-0.96 [facility] Comment on above: Order Comment: Speci men Type: BLOOD SPECIMEN Performed By: #### 2 777-1, , ####[facility]ATORYCLIA [id number] [place] [address] GFR/1.73 sq M.predicted MDRD (S/P/Bld) [Vol rate/Area] mL/min/{1.73_m2} Normal [facility] Comment on above: Order Comment: Speci [...] actual GFR. Performed By: #### 2 777-1, 62917-9, ####[facility]ATORYCLIA [id number] [place] [address] Glucose [Mass/Vol] 95 mg/dL Normal 74-99 [facility] Comment on above: Order Comment: Speci men Type: BLOOD SPECIMEN Result Comment: The [place] [employer] (ADA) provides guidance for cutoff [...] Standards of Medical Care in Diabetes 2016, [place] [employer]. Diabetes Care. 2016.39(Suppl 1). Performed By: #### 2 777-1, , ####[facility]ATORYCLIA [id number] [place] [address] Potassium [Moles/Vol] 4.4 mmol/L Normal 3.7-5.1 [facility] Comment on above: Order Comment: Speci men Type: BLOOD SPECIMEN Performed By: #### 2 777-1, , ####[facility]ATORYCLIA [id number] [place] [address] Sodium [Moles/Vol] 136 mmol/L Normal 136-144 [facility] Comment on above: Order Comment: Speci men Type: BLOOD SPECIMEN Performed By: #### 2 777-1, , ####[facility]ATORYCLIA [id number] [place] [address] Urea nitrogen [Mass/Vol] 14 mg/dL Normal 7-21 [facility] Comment on above: Order Comment: Speci men Type: BLOOD SPECIMEN Performed By: #### 2 777-1, 78508-6, ####[facility]ATORYCLIA [id number] [place] [address] CBC panel Auto (Bld)on 10-24 Erythrocyte distribution width (RBC) [Ratio] 13.8 % Normal 11.5-15.0 [facility] Comment on above: Order Comment: Speci men Type: BLOOD SPECIMEN Performed By: #### 5 8410-2 ####[facility]ATORYCLIA [id number] [place] [address] Hematocrit (Bld) [Volume fraction] 33.4 % Low 36.0-46.0 [facility] Comment on above: Order Comment: Speci men Type: BLOOD SPECIMEN Performed By: #### 5 8410-2 ####[facility]ATORYCLIA [id number] [place] [address] Hemoglobin (Bld) [Mass/Vol] 11.1 g/dL Low 11.5-15.5 [facility] Comment on above: Order Comment: Speci men Type: BLOOD SPECIMEN Performed By: #### 5 8410-2 ####[facility]ATORYCLIA [id number] [place] [address] MCH (RBC) [Entitic mass] 32.6 pg Normal 26.0-34.0 [facility] Comment on above: Order Comment: Speci men Type: BLOOD SPECIMEN Performed By: #### 5 8410-2 ####[facility]ATORYCLIA [id number] [place] [address] MCHC (RBC) [Mass/Vol] 33.2 g/dL Normal 30.5-36.0 [facility] Comment on above: Order Comment: Speci men Type: BLOOD SPECIMEN Performed By: #### 5 8410-2 ####[facility]ATORYCLIA [id number] [place] [address] MCV (RBC) [Entitic vol] 97.9 fL Normal 80.0-100.0 [facility] Comment on above: Order Comment: Speci men Type: BLOOD SPECIMEN Performed By: #### 5 8410-2 ####[facility]ATORYCLIA [id number] [place] [address] Nucleated RBC (Bld) [#/Vol] 10*3/uL Normal <0.01 [facility] Comment on above: Order Comment: Speci men Type: BLOOD SPECIMEN Performed By: #### 5 8410-2 ####[facility]ATORYCLIA [id number] [place] [address] Platelet mean volume (Bld) [Entitic vol] 10.2 fL Normal 9.0-12.7 [facility] Comment on above: Order Comment: Speci men Type: BLOOD SPECIMEN Performed By: #### 5 8410-2 ####[facility]ATORYCLIA [id number] [place] [address] Platelets (Bld) [#/Vol] 271 10*3/uL Normal 150-400 [facility] Comment on above: Order Comment: Speci men Type: BLOOD SPECIMEN Performed By: #### 5 8410-2 ####[facility]ATORYCLIA [id number] [place] [address] RBC (Bld) [#/Vol] 3.41 10*6/uL Low 3.90-5.20 [facility] Comment on above: Order Comment: Speci men Type: BLOOD SPECIMEN Performed By: #### 5 8410-2 ####[facility]ATORYCLIA [id number] [place] [address] WBC (Bld) [#/Vol] 7.61 10*3/uL Normal 3.70-11.00 [facility] Comment on above: Order Comment: Speci men Type: BLOOD SPECIMEN Performed By: #### 5 8410-2 ####[facility]ATORYCLIA [id number] [place] [address] CONSULT PROGon 10-24-2020 CONSULT PROG Normal [facility] Magnesium SerPl-mCncon 10-24 Magnesium [Mass/Vol] 1.8 mg/dL Normal 1.7-2.3 [facility] Comment on above: Order Comment: Speci men Type: BLOOD SPECIMEN Performed By: #### 2 777-1, 65517-3, 26090-3 ####[facility]ATORYCLIA [id number] [place] [address] PT panel Coag (PPP)on 2020 INR Coag (PPP) [Relative time] 1.1 {INR} Normal 0.9-1.3 [facility] Comment on above: Order Comment: Speci men Type: BLOOD SPECIMEN Result Comment: Nicolasa min K Antagonist (VKA) Therapeutic Range: INR 2 to 3 (Target INR of 2.5)Note: For patients treated with VKA drugs, such as warfarin, the [place] [employer] 2012 Guideline recommends [...] al. Chest 2012, 141:7S-47SNishimkarthik RA, et al. [facility] 2017, 70: 252-289 Performed By: #### 3 4528-0 ####[facility]ATORYCLIA [id number] [place] [address] PT Coag (PPP) [Time] 11.4 s Normal 9.7-13.0 [facility] Comment on above: Order Comment: Speci men Type: BLOOD SPECIMEN Performed By: #### 3 4528-0 ####[facility]ATORYCLIA [id number] [place] [address] Phosphate SerPl-mCncon 10-24 Phosphate [Mass/Vol] 4.6 mg/dL Normal 2.7-4.8 [facility] Comment on above: Order Comment: Speci men Type: BLOOD SPECIMEN Performed By: #### 2 777-1, 79084-0, ####[facility]ATORYCLIA [id number] [place] [address] aPTT PPPon 10-24-2020 aPTT Coag (PPP) [Time] 66.3 s High 23.0-32.4 [facility] Comment on above: Order Comment: Speci men Type: BLOOD SPECIMEN Performed By: #### 1 4979-9 ####[facility]ATORYCLIA [id number] [place] [address] Basic metabolic 2000 panelon 10-23-2020 Anion gap [Moles/Vol] 12 mmol/L Normal 9-18 [facility] Comment on above: Order Comment: Speci men Type: BLOOD SPECIMEN Performed By: #### 2 4321-2, , 2776-08 ####[facility]ATORYCLIA [id number] [place] [address] Calcium [Mass/Vol] 9.7 mg/dL Normal 8.5-10.2 [facility] Comment on above: Order Comment: Speci men Type: BLOOD SPECIMEN Performed By: #### 2 4321-2, , 2776-08 ####[facility]ORYCLIA [id number] [place] [address] Chloride [Moles/Vol] 103 mmol/L Normal 97-105 [facility] Comment on above: Order Comment: Speci men Type: BLOOD SPECIMEN Performed By: #### 2 4321-2, , 2776-08 ####[facility]ORYCLIA [id number] [place] [address] CO2 [Moles/Vol] 23 mmol/L Normal 22-30 [facility] Comment on above: Order Comment: Speci men Type: BLOOD SPECIMEN Performed By: #### 2 4321-2, , 2776-08 ####[facility]ORATORYCLIA [id number] [place] [address] Creatinine [Mass/Vol] 0.92 mg/dL Normal 0.58-0.96 [facility] Comment on above: Order Comment: Speci men Type: BLOOD SPECIMEN Performed By: #### 2 4321-2, , 2776-08 ####[facility]ATORYCLIA [id number] [place] [address] GFR/1.73 sq M.predicted MDRD (S/P/Bld) [Vol rate/Area] mL/min/{1.73_m2} Normal [facility] Comment on above: Order Comment: Speci [...] Performed By: #### 2 4321-2, , 2776-08 ####[facility]ATORYCLIA [id number] [place] [address] Glucose [Mass/Vol] 96 mg/dL Normal 74-99 [facility] Comment on above: Order Comment: Speci men Type: BLOOD SPECIMEN Result Comment: The [place] [employer] (ADA) provides guidance for cutoff [...] Standards of Medical Care in Diabetes 2016, [place] [employer]. Diabetes Care. 2016.39(Suppl 1). Performed By: #### 2 4321-2, , 2776-08 ####[facility]ATORYCLIA [id number] [place] [address] Potassium [Moles/Vol] 4.4 mmol/L Normal 3.7-5.1 [facility] Comment on above: Order Comment: Speci men Type: BLOOD SPECIMEN Performed By: #### 2 4321-2, , 2776-08 ####[facility]ORATORYCLIA [id number] [place] [address] Sodium [Moles/Vol] 138 mmol/L Normal 136-144 [facility] Comment on above: Order Comment: Speci men Type: BLOOD SPECIMEN Performed By: #### 2 4321-2, , 2776-08 ####[facility]ORATORYCLIA [id number] [place] [address] Urea nitrogen [Mass/Vol] 14 mg/dL Normal 7-21 [facility] Comment on above: Order Comment: Speci men Type: BLOOD SPECIMEN Performed By: #### 2 4321-2, , 2776-08 ####[facility]ORATORYCLIA [id number] [place] [address] CASE MANAGEMon 10-23-2020 CASE MANAGEM Normal [facility] CASE MGT INIT ASSESon 2020 CASE MGT INIT ASSES Normal [facility] CBC panel Auto (Bld)on 10-23 Erythrocyte distribution width (RBC) [Ratio] 13.8 % Normal 11.5-15.0 [facility] Comment on above: Order Comment: Speci men Type: BLOOD SPECIMEN Performed By: #### 5 8410-2 ####[facility]ATORYCLIA [id number] [place] [address] Hematocrit (Bld) [Volume fraction] 34.1 % Low 36.0-46.0 [facility] Comment on above: Order Comment: Speci men Type: BLOOD SPECIMEN Performed By: #### 5 8410-2 ####[facility]ATORYCLIA [id number] [place] [address] Hemoglobin (Bld) [Mass/Vol] 11.4 g/dL Low 11.5-15.5 [facility] Comment on above: Order Comment: Speci men Type: BLOOD SPECIMEN Performed By: #### 5 8410-2 ####[facility]ORATORYCLIA [id number] [place] [address] MCH (RBC) [Entitic mass] 32.7 pg Normal 26.0-34.0 [facility] Comment on above: Order Comment: Speci men Type: BLOOD SPECIMEN Performed By: #### 5 8410-2 ####[facility]ATORYCLIA [id number] [place] [address] MCHC (RBC) [Mass/Vol] 33.4 g/dL Normal 30.5-36.0 [facility] Comment on above: Order Comment: Speci men Type: BLOOD SPECIMEN Performed By: #### 5 8410-2 ####[facility]ATORYCLIA [id number] [place] [address] MCV (RBC) [Entitic vol] 97.7 fL Normal 80.0-100.0 [facility] Comment on above: Order Comment: Speci men Type: BLOOD SPECIMEN Performed By: #### 5 8410-2 ####[facility]ATORYCLIA [id number] [place] [address] Nucleated RBC (Bld) [#/Vol] 10*3/uL Normal <0.01 [facility] Comment on above: Order Comment: Speci men Type: BLOOD SPECIMEN Performed By: #### 5 8410-2 ####[facility]ATORYCLIA [id number] [place] [address] Platelet mean volume (Bld) [Entitic vol] 10.0 fL Normal 9.0-12.7 [facility] Comment on above: Order Comment: Speci men Type: BLOOD SPECIMEN Performed By: #### 5 8410-2 ####[facility] LABORATORYCLIA [id number] [place] [address] Platelets (Bld) [#/Vol] 276 10*3/uL Normal 150-400 [facility] Comment on above: Order Comment: Speci men Type: BLOOD SPECIMEN Performed By: #### 5 8410-2 ####[facility] LABORATORYCLIA [id number] [place] [address] RBC (Bld) [#/Vol] 3.49 10*6/uL Low 3.90-5.20 [facility] Comment on above: Order Comment: Speci men Type: BLOOD SPECIMEN Performed By: #### 5 8410-2 ####[facility] LABORATORYCLIA [id number] [place] [address] WBC (Bld) [#/Vol] 8.39 10*3/uL Normal 3.70-11.00 [facility] Comment on above: Order Comment: Speci men Type: BLOOD SPECIMEN Performed By: #### 5 8410-2 ####[facility] LABORATORYCLIA [id number] [place] [address] CONSULT PROGon 10-23-2020 CONSULT PROG Normal [facility] Magnesium SerPl-mCncon 10-23 Magnesium [Mass/Vol] 1.9 mg/dL Normal 1.7-2.3 [facility] Comment on above: Order Comment: Speci men Type: BLOOD SPECIMEN Performed By: #### 2 4321-2, 50221-5, 2777-1 ####[facility] LABORATORYCLIA [id number] [place] [address] NURSING PROGon 10-23-2020 NURSING PROG Normal [facility] NUTRITIONon 10-23-2020 NUTRITION Normal [facility] PT panel Coag (PPP)on 2020 INR Coag (PPP) [Relative time] 1.1 {INR} Normal 0.9-1.3 [facility] Comment on above: Order Comment: Speci men Type: BLOOD SPECIMEN Result Comment: Nicolasa min K Antagonist (VKA) Therapeutic Range: INR 2 to 3 (Target INR of 2.5)Note: For patients treated with VKA drugs, such as warfarin, the [employer] 2012 Guideline recommends [...] 3).Teresa GH, et al. Chest 2012, 141:7S-47SKunal GROSS, et al. [facility] 2017, 70: 252-289 Performed By: #### 3 4528-0, 96693-7 ####[facility] LABORATORYCLIA [id number] [place] [address] PT Coag (PPP) [Time] 11.0 s Normal 9.7-13.0 [facility] Comment on above: Order Comment: Speci men Type: BLOOD SPECIMEN Performed By: #### 3 4528-0, 15749-9 ####[facility] LABORATORYCLIA [id number] [place] [address] Phosphate SerPl-mCncon 10-23 Phosphate [Mass/Vol] 4.6 mg/dL Normal 2.7-4.8 [facility] Comment on above: Order Comment: Speci men Type: BLOOD SPECIMEN Performed By: #### 2 4321-2, 45403-3, 2777-1 ####[facility]ORATORYCLIA [id number] [place] [address] aPTT PPPon 10-23-2020 aPTT Coag (PPP) [Time] 57.5 s High 23.0-32.4 [facility] Comment on above: Order Comment: Speci men Type: BLOOD SPECIMEN Performed By: #### 1 4979-9 ####[facility]ORYCLIA [id number] [place] [address] aPTT Coag (PPP) [Time] 38.5 s High 23.0-32.4 [facility] Comment on above: Order Comment: Speci men Type: BLOOD SPECIMEN Performed By: #### 1 4979-9 ####[facility]ATORYCLIA [id number] [place] [address] aPTT Coag (PPP) [Time] 71.3 s High 23.0-32.4 [facility] Comment on above: Order Comment: Speci men Type: BLOOD SPECIMEN Performed By: #### 1 4979-9 ####[facility]ORYCLIA [id number] [place] [address] aPTT Coag (PPP) [Time] 82.0 s High 23.0-32.4 [facility] Comment on above: Order Comment: Speci men Type: BLOOD SPECIMEN Performed By: #### 3 4528-0, 49191-5 ####[facility]ATORYCLIA [id number] [place] [address] Basic metabolic 2000 panelon 10-22-2020 Anion gap [Moles/Vol] 10 mmol/L Normal - [facility] Comment on above: Order Comment: Speci men Type: BLOOD SPECIMEN Performed By: #### 2 4321-2, , 2776-08 ####[facility]ATORYCLIA [id number] [place] [address] Calcium [Mass/Vol] 9.5 mg/dL Normal 8.5-10.2 [facility] Comment on above: Order Comment: Speci men Type: BLOOD SPECIMEN Performed By: #### 2 4321-2, , 2776-08 ####[facility]ATORYCLIA [id number] [place] [address] Chloride [Moles/Vol] 104 mmol/L Normal 97-105 [facility] Comment on above: Order Comment: Speci men Type: BLOOD SPECIMEN Performed By: #### 2 4321-2, , 2776-08 ####[facility]ORATORYCLIA [id number] [place] [address] CO2 [Moles/Vol] 24 mmol/L Normal 22-30 [facility] Comment on above: Order Comment: Speci men Type: BLOOD SPECIMEN Performed By: #### 2 1-2, , 2776-08 ####[facility]ORATORYCLIA [id number] [place] [address] Creatinine [Mass/Vol] 0.86 mg/dL Normal 0.58-0.96 [facility] Comment on above: Order Comment: Speci men Type: BLOOD SPECIMEN Performed By: #### 2 1-2, , 2776-08 ####[facility]ORATORYCLIA [id number] [place] [address] GFR/1.73 sq M.predicted MDRD (S/P/Bld) [Vol rate/Area] mL/min/{1.73_m2} Normal [facility] Comment on above: Order Comment: Speci [...] Performed By: #### 2 1-2, , 2776-08 ####[facility]ORATORYCLIA [id number] [place] [address] Glucose [Mass/Vol] 94 mg/dL Normal 74-99 [facility] Comment on above: Order Comment: Speci men Type: BLOOD SPECIMEN Result Comment: The [place] Diabetes Association (ADA) provides guidance for cutoff [...] Standards of Medical Care in Diabetes 2016, [place] [employer]. Diabetes Care. 2016.39(Suppl 1). Performed By: #### 2 4321-2, , 2776-08 ####[facility]ORATORYCLIA [id number] [place] [address] Potassium [Moles/Vol] 4.6 mmol/L Normal 3.7-5.1 [facility] Comment on above: Order Comment: Speci men Type: BLOOD SPECIMEN Performed By: #### 2 1-2, , 2776-08 ####[facility]ORATORYCLIA [id number] [place] [address] Sodium [Moles/Vol] 138 mmol/L Normal 136-144 [facility] Comment on above: Order Comment: Speci men Type: BLOOD SPECIMEN Performed By: #### 2 1-2, , 2776-08 ####[facility]ORATORYCLIA [id number] [place] [address] Urea nitrogen [Mass/Vol] 14 mg/dL Normal 7-21 [facility] Comment on above: Order Comment: Speci men Type: BLOOD SPECIMEN Performed By: #### 2 4321-2, , 2776-08 ####[facility]ORATORYCLIA [id number] [place] [address] CBC panel Auto (Bld)on 10-22 Erythrocyte distribution width (RBC) [Ratio] 13.9 % Normal 11.5-15.0 [facility] Comment on above: Order Comment: Speci men Type: BLOOD SPECIMEN Performed By: #### 5 8410-2 ####[facility]ORATORYCLIA [id number] [place] [address] Hematocrit (Bld) [Volume fraction] 35.3 % Low 36.0-46.0 [facility] Comment on above: Order Comment: Speci men Type: BLOOD SPECIMEN Performed By: #### 5 8410-2 ####[facility] LABORATORYCLIA [id number] [place] [address] Hemoglobin (Bld) [Mass/Vol] 11.7 g/dL Normal 11.5-15.5 [facility] Comment on above: Order Comment: Speci men Type: BLOOD SPECIMEN Performed By: #### 5 8410-2 ####[facility]ORATORYCLIA [id number] [place] [address] MCH (RBC) [Entitic mass] 33.1 pg Normal 26.0-34.0 [facility] Comment on above: Order Comment: Speci men Type: BLOOD SPECIMEN Performed By: #### 5 8410-2 ####[facility] LABORATORYCLIA [id number] [place] [address] MCHC (RBC) [Mass/Vol] 33.1 g/dL Normal 30.5-36.0 [facility] Comment on above: Order Comment: Speci men Type: BLOOD SPECIMEN Performed By: #### 5 8410-2 ####[facility] LABORATORYCLIA [id number] [place] [address] MCV (RBC) [Entitic vol] 100.0 fL Normal 80.0-100.0 [facility] Comment on above: Order Comment: Speci men Type: BLOOD SPECIMEN Performed By: #### 5 8410-2 ####[facility]ORATORYCLIA [id number] [place] [address] Nucleated RBC (Bld) [#/Vol] 10*3/uL Normal <0.01 [facility] Comment on above: Order Comment: Speci men Type: BLOOD SPECIMEN Performed By: #### 5 8410-2 ####[facility]ORATORYCLIA [id number] [place] [address] Platelet mean volume (Bld) [Entitic vol] 10.3 fL Normal 9.0-12.7 [facility] Comment on above: Order Comment: Speci men Type: BLOOD SPECIMEN Performed By: #### 5 8410-2 ####[facility]ORATORYCLIA [id number] [place] [address] Platelets (Bld) [#/Vol] 245 10*3/uL Normal 150-400 [facility] Comment on above: Order Comment: Speci men Type: BLOOD SPECIMEN Performed By: #### 5 8410-2 ####[facility]ORATORYCLIA [id number] [place] [address] RBC (Bld) [#/Vol] 3.53 10*6/uL Low 3.90-5.20 [facility] Comment on above: Order Comment: Speci men Type: BLOOD SPECIMEN Performed By: #### 5 8410-2 ####[facility]ORATORYCLIA [id number] [place] [address] WBC (Bld) [#/Vol] 9.49 10*3/uL Normal 3.70-11.00 [facility] Comment on above: Order Comment: Speci men Type: BLOOD SPECIMEN Performed By: #### 5 8410-2 ####[facility]ORATORYCLIA [id number] [place] [address] CONSULTon 10-22-2020 CONSULT Normal [facility] CONSULT PROGon 10-22-2020 CONSULT PROG Normal [facility] Magnesium SerPl-mCncon 10-22 Magnesium [Mass/Vol] 2.1 mg/dL Normal 1.7-2.3 [facility] Comment on above: Order Comment: Speci men Type: BLOOD SPECIMEN Performed By: #### 2 4321-2, 15632-2, 2777-1 ####[facility]ORATORYCLIA [id number] [place] [address] PT panel Coag (PPP)on 2020 INR Coag (PPP) [Relative time] 1.1 {INR} Normal 0.9-1.3 [facility] Comment on above: Order Comment: Speci men Type: BLOOD SPECIMEN Result Comment: Nicolasa min K Antagonist (VKA) Therapeutic Range: INR 2 to 3 (Target INR of 2.5)Note: For patients treated with VKA drugs, such as warfarin, the [place] [employer] 2012 Guideline recommends [...] al. Chest 2012, 141:7S-47SKunal RA, et al. [facility] 2017, 70: 252-289 Performed By: #### 3 4528-0, 89920-6 ####[facility]ORATORYCLIA [id number] [place] [address] PT Coag (PPP) [Time] 11.1 s Normal 9.7-13.0 [facility] Comment on above: Order Comment: Speci men Type: BLOOD SPECIMEN Performed By: #### 3 4528-0, 24790-5 ####[facility]ORATORYCLIA [id number] [place] [address] Phosphate SerPl-mCncon 10-22 Phosphate [Mass/Vol] 4.7 mg/dL Normal 2.7-4.8 [facility] Comment on above: Order Comment: Speci men Type: BLOOD SPECIMEN Performed By: #### 2 4321-2, 52220-9, 2777-1 ####[facility]ORATORYCLIA [id number] [place] [address] THERAPY NTon 10-22-2020 THERAPY NT Normal [facility] THERAPY NT Normal [facility] THERAPY NT Normal [facility] aPTT PPPon 10-22-2020 aPTT Coag (PPP) [Time] 60.4 s High 23.0-32.4 [facility] Comment on above: Order Comment: Speci men Type: BLOOD SPECIMEN Performed By: #### 3 4528-0, 07886-9 ####[facility]ATORYCLIA [id number] [place] [address] aPTT Coag (PPP) [Time] 60.4 s High 23.0-32.4 [facility] Comment on above: Order Comment: Speci men Type: BLOOD SPECIMEN Performed By: #### 1 4979-9 ####[facility]ORATORYCLIA [id number] [place] [address] aPTT Coag (PPP) [Time] 69.9 s High 23.0-32.4 [facility] Comment on above: Order Comment: Speci men Type: BLOOD SPECIMEN Performed By: #### 1 4979-9 ####[facility]ORATORYCLIA [id number] [place] [address] ALLIED HEALTHon 10-21-2020 ALLIED HEALTH Normal [facility] Basic metabolic 2000 panelon 10-21-2020 Anion gap [Moles/Vol] 9 mmol/L Normal 9-18 [facility] Comment on above: Order Comment: Speci men Type: BLOOD SPECIMEN Performed By: #### 2 4321-2, , 2776-08 ####[facility]ATORYCLIA [id number] [place] [address] Calcium [Mass/Vol] 8.8 mg/dL Normal 8.5-10.2 [facility] Comment on above: Order Comment: Speci men Type: BLOOD SPECIMEN Performed By: #### 2 4321-2, , 2776-08 ####[facility]ATORYCLIA [id number] [place] [address] Chloride [Moles/Vol] 107 mmol/L High 97-105 [facility] Comment on above: Order Comment: Speci men Type: BLOOD SPECIMEN Performed By: #### 2 4321-2, , 2776-08 ####[facility]ATORYCLIA [id number] [place] [address] CO2 [Moles/Vol] 21 mmol/L Low 22-30 [facility] Comment on above: Order Comment: Speci men Type: BLOOD SPECIMEN Performed By: #### 2 4321-2, , 2776-08 ####[facility]ORATORYCLIA [id number] [place] [address] Creatinine [Mass/Vol] 0.72 mg/dL Normal 0.58-0.96 [facility] Comment on above: Order Comment: Speci men Type: BLOOD SPECIMEN Performed By: #### 2 4321-2, , 2776-08 ####[facility]ORATORYCLIA [id number] [place] [address] GFR/1.73 sq M.predicted MDRD (S/P/Bld) [Vol rate/Area] mL/min/{1.73_m2} Normal [facility] Comment on above: Order Comment: Speci [...] Performed By: #### 2 4321-2, , 2776-08 ####[facility]ORATORYCLIA [id number] [place] [address] Glucose [Mass/Vol] 83 mg/dL Normal 74-99 [facility] Comment on above: Order Comment: [facility] Type: BLOOD SPECIMEN Result Comment: The [place] Diabetes Association (ADA) provides guidance for cutoff [...] Standards of Medical Care in Diabetes 2016, [place] [employer]. Diabetes Care. 2016.39(Suppl 1). Performed By: #### 2 4321-2, , 2776-08 ####[facility]ORATORYCLIA [id number] [place] [address] Potassium [Moles/Vol] 4.0 mmol/L Normal 3.7-5.1 [facility] Comment on above: Order Comment: Speci men Type: BLOOD SPECIMEN Performed By: #### 2 4321-2, , 2776-08 ####[facility]ORATORYCLIA [id number] [place] [address] Sodium [Moles/Vol] 137 mmol/L Normal 136-144 [facility] Comment on above: Order Comment: Speci men Type: BLOOD SPECIMEN Performed By: #### 2 4321-2, , 2776-08 ####[facility]ORATORYCLIA [id number] [place] [address] Urea nitrogen [Mass/Vol] 12 mg/dL Normal 7-21 [facility] Comment on above: Order Comment: Speci men Type: BLOOD SPECIMEN Performed By: #### 2 4321-2, , 2776-08 ####[facility]ORATORYCLIA [id number] [place] [address] CASE MANAGEMon 10-21-2020 CASE MANAGEM Normal [facility] CBC panel Auto (Bld)on 10-21 Erythrocyte distribution width (RBC) [Ratio] 13.9 % Normal 11.5-15.0 [facility] Comment on above: Order Comment: Speci men Type: BLOOD SPECIMEN Performed By: #### 5 8410-2 ####[facility]ORATORYCLIA [id number] [place] [address] Hematocrit (Bld) [Volume fraction] 35.0 % Low 36.0-46.0 [facility] Comment on above: Order Comment: Speci men Type: BLOOD SPECIMEN Performed By: #### 5 8410-2 ####[facility]ORATORYCLIA [id number] [place] [address] Hemoglobin (Bld) [Mass/Vol] 11.6 g/dL Normal 11.5-15.5 [facility] Comment on above: Order Comment: Speci men Type: BLOOD SPECIMEN Performed By: #### 5 8410-2 ####[facility]ORATORYCLIA [id number] [place] [address] MCH (RBC) [Entitic mass] 32.2 pg Normal 26.0-34.0 [facility] Comment on above: Order Comment: Speci men Type: BLOOD SPECIMEN Performed By: #### 5 8410-2 ####[facility]ORATORYCLIA [id number] [place] [address] MCHC (RBC) [Mass/Vol] 33.1 g/dL Normal 30.5-36.0 [facility] Comment on above: Order Comment: Speci men Type: BLOOD SPECIMEN Performed By: #### 5 8410-2 ####[facility]ORATORYCLIA [id number] [place] [address] MCV (RBC) [Entitic vol] 97.2 fL Normal 80.0-100.0 [facility] Comment on above: Order Comment: Speci men Type: BLOOD SPECIMEN Performed By: #### 5 8410-2 ####[facility]ORATORYCLIA [id number] [place] [address] Nucleated RBC (Bld) [#/Vol] 10*3/uL Normal <0.01 [facility] Comment on above: Order Comment: Speci men Type: BLOOD SPECIMEN Performed By: #### 5 8410-2 ####[facility]ORATORYCLIA [id number] [place] [address] Platelet mean volume (Bld) [Entitic vol] 10.0 fL Normal 9.0-12.7 [facility] Comment on above: Order Comment: Speci men Type: BLOOD SPECIMEN Performed By: #### 5 8410-2 ####[facility] LABORATORYCLIA [id number] [place] [address] Platelets (Bld) [#/Vol] 245 10*3/uL Normal 150-400 [facility] Comment on above: Order Comment: Speci men Type: BLOOD SPECIMEN Performed By: #### 5 8410-2 ####[facility] LABORATORYCLIA [id number] [place] [address] RBC (Bld) [#/Vol] 3.60 10*6/uL Low 3.90-5.20 [facility] Comment on above: Order Comment: Speci men Type: BLOOD SPECIMEN Performed By: #### 5 8410-2 ####[facility]ATORYCLIA [id number] [place] [address] WBC (Bld) [#/Vol] 9.05 10*3/uL Normal 3.70-11.00 [facility] Comment on above: Order Comment: Speci men Type: BLOOD SPECIMEN Performed By: #### 5 8410-2 ####[facility]ATORYCLIA [id number] [place] [address] Erythrocyte distribution width (RBC) [Ratio] 13.9 % Normal 11.5-15.0 [facility] Comment on above: Order Comment: Speci men Type: BLOOD SPECIMEN Performed By: #### 5 8410-2 ####[facility]ORATORYCLIA [id number] [place] [address] Hematocrit (Bld) [Volume fraction] 32.8 % Low 36.0-46.0 [facility] Comment on above: Order Comment: Speci men Type: BLOOD SPECIMEN Performed By: #### 5 8410-2 ####[facility]ORATORYCLIA [id number] [place] [address] Hemoglobin (Bld) [Mass/Vol] 10.8 g/dL Low 11.5-15.5 [facility] Comment on above: Order Comment: Speci men Type: BLOOD SPECIMEN Performed By: #### 5 8410-2 ####[facility]ORATORYCLIA [id number] [place] [address] MCH (RBC) [Entitic mass] 32.8 pg Normal 26.0-34.0 [facility] Comment on above: Order Comment: Speci men Type: BLOOD SPECIMEN Performed By: #### 5 8410-2 ####[facility]ORATORYCLIA [id number] [place] [address] MCHC (RBC) [Mass/Vol] 32.9 g/dL Normal 30.5-36.0 [facility] Comment on above: Order Comment: Speci men Type: BLOOD SPECIMEN Performed By: #### 5 8410-2 ####[facility]ORATORYCLIA [id number] [place] [address] MCV (RBC) [Entitic vol] 99.7 fL Normal 80.0-100.0 [facility] Comment on above: Order Comment: Speci men Type: BLOOD SPECIMEN Performed By: #### 5 8410-2 ####[facility]ATORYCLIA [id number] [place] [address] Nucleated RBC (Bld) [#/Vol] 10*3/uL Normal <0.01 [facility] Comment on above: Order Comment: Speci men Type: BLOOD SPECIMEN Performed By: #### 5 8410-2 ####[facility]ORATORYCLIA [id number] [place] [address] Platelet mean volume (Bld) [Entitic vol] 10.0 fL Normal 9.0-12.7 [facility] Comment on above: Order Comment: Speci men Type: BLOOD SPECIMEN Performed By: #### 5 8410-2 ####[facility]ORATORYCLIA [id number] [place] [address] Platelets (Bld) [#/Vol] 193 10*3/uL Normal 150-400 [facility] Comment on above: Order Comment: Speci men Type: BLOOD SPECIMEN Performed By: #### 5 8410-2 ####[facility]ORATORYCLIA [id number] [place] [address] RBC (Bld) [#/Vol] 3.29 10*6/uL Low 3.90-5.20 [facility] Comment on above: Order Comment: Speci men Type: BLOOD SPECIMEN Performed By: #### 5 8410-2 ####[facility] LABORATORYCLIA [id number] [place] [address] WBC (Bld) [#/Vol] 8.43 10*3/uL Normal 3.70-11.00 [facility] Comment on above: Order Comment: Speci men Type: BLOOD SPECIMEN Performed By: #### 5 8410-2 ####[facility] LABORATORYCLIA [id number] [place] [address] CONSULT PROGon 10-21-2020 CONSULT PROG Normal [facility] CT BRAIN WO IVCONon 10-22-19 CT BRAIN WO IVCON Final Report DATE OF EXAM: Oct 21 2020 5:51PM [facility] 0504 - CT BRAIN WO [...] extracranial soft tissues are grossly normal. NECK: Shingle Bolt Cutter (topogram) images: Soft tissues: The soft tissue [...] streak artifact from the coil. The left CLINICAL INFORMATICS MANAGER is partially visualized at the origin but appears patent. A stent marker is present at the junction of the left P1 and P2 segment. The right CLINICAL INFORMATICS MANAGER origin is somewhat obscured, however appears to be patent.. IMPRESSION: Arterial blood flow was measured to detect acute large vessel occlusion by computer aided detection software: Not Performed CT BRAIN WITHOUT CONTRAST: 1. No acute intracranial abnormality is seen. No evidence of acute intracranial hemorrhage. Multifocal remote areas of encephalomalacia as detailed above. 2. There are aneurysm coils of the [place] of [place] which create moderate streak artifact. CT ANGIOGRAPHY [place]: 1. Aneurysm coil and stent [...] flow-limiting stenosis of the carotids or vertebrals 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 Transcribe Date/Time: Oct 21 2020 5:51P Dictated by : DENICE RUTHERFORD MD This examination was interpreted and the report reviewed and electronically signed by: DENICE RUTHERFORD MD on Oct 21 2020 6:30PM EST Normal [facility] CTA HEAD W IVCONon 1 CTA HEAD W IVCON Final Report DATE OF EXAM: Oct 21 2020 5:51PM [facility] 0022 - CTA HEAD W [...] extracranial soft tissues are grossly normal. NECK: Shingle Bolt Cutter (topogram) images: Soft tissues: The soft tissue [...] streak artifact from the coil. The left CLINICAL INFORMATICS MANAGER is partially visualized at the origin but appears patent. A stent marker is present at the junction of the left P1 and P2 segment. The right CLINICAL INFORMATICS MANAGER origin is somewhat obscured, however appears to be patent.. IMPRESSION: Arterial blood flow was measured to detect acute large vessel occlusion by computer aided detection software: Not Performed CT BRAIN WITHOUT CONTRAST: 1. No acute intracranial abnormality is seen. No evidence of acute intracranial hemorrhage. Multifocal remote areas of encephalomalacia as detailed above. 2. There are aneurysm coils of the [place] which create moderate streak artifact. CT ANGIOGRAPHY [place]: 1. Aneurysm coil and stent [...] flow-limiting stenosis of the carotids or vertebrals 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 Transcribe Date/Time: Oct 21 2020 5:51P Dictated by : DENICE RUTHERFORD MD This examination was interpreted and the report reviewed and electronically signed by: DENICE RUTHERFORD MD on Oct 21 2020 6:30PM EST Normal [facility] CTA NECK W IVCONon 1 CTA NECK W IVCON Final Report DATE OF EXAM: Oct 21 2020 5:51PM [facility] 0024 - CTA NECK W [...] extracranial soft tissues are grossly normal. NECK: Shingle Bolt Cutter (topogram) images: Soft tissues: The soft tissue [...] streak artifact from the coil. The left CLINICAL INFORMATICS MANAGER is partially visualized at the origin but appears patent. A stent marker is present at the junction of the left P1 and P2 segment. The right CLINICAL INFORMATICS MANAGER origin is somewhat obscured, however appears to be patent.. IMPRESSION: Arterial blood flow was measured to detect acute large vessel occlusion by computer aided detection software: Not Performed CT BRAIN WITHOUT CONTRAST: 1. No acute intracranial abnormality is seen. No evidence of acute intracranial hemorrhage. Multifocal remote areas of encephalomalacia as detailed above. 2. There are aneurysm coils of the [place] which create moderate streak artifact. CT ANGIOGRAPHY [place]: 1. Aneurysm coil and stent [...] flow-limiting stenosis of the carotids or vertebrals 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 Transcribe Date/Time: Oct 21 2020 5:51P Dictated by : DENICE RUTHERFORD MD This examination was interpreted and the report reviewed and electronically signed by: DENICE RUTHERFORD MD on Oct 21 2020 6:30PM EST Normal [facility] Comprehensive metabolic 2000 panelon 10-21-2020 Albumin [Mass/Vol] 4.4 g/dL Normal 3.9-4.9 [facility] Comment on above: Order Comment: Speci men Type: BLOOD SPECIMEN Performed By: #### 2 4323-8, 01517-1 ####[facility] LABORATORYCLIA [id number] [place] [address] ALP [Catalytic activity/Vol] 70 U/L Normal 34-123 [facility] Comment on above: Order Comment: Speci men Type: BLOOD SPECIMEN Performed By: #### 2 4323-8, ####[facility]ORATORYCLIA [id number] [place] [address] ALT With P-5'-P [Catalytic activity/Vol] 26 U/L Normal 7-38 [facility] Comment on above: Order Comment: Speci men Type: BLOOD SPECIMEN Performed By: #### 2 4323-8, ####[facility]ORATORYCLIA [id number] [place] [address] Anion gap [Moles/Vol] 9 mmol/L Normal 9-18 [facility] Comment on above: Order Comment: Speci men Type: BLOOD SPECIMEN Performed By: #### 2 432-8, ####[facility]ORATORYCLIA [id number] [place] [address] AST With P-5'-P [Catalytic activity/Vol] 29 U/L Normal 13-35 [facility] [facility] Comment on above: Order Comment: Speci men Type: BLOOD SPECIMEN Performed By: #### 2 4322-8, ####[facility]ORATORYCLIA [id number] [place] [address] Bilirubin [Mass/Vol] 0.7 mg/dL Normal 0.2-1.3 [facility] Comment on above: Order Comment: Speci men Type: BLOOD SPECIMEN Performed By: #### 2 432-8, ####[facility]ATORYCLIA [id number] [place] [address] Calcium [Mass/Vol] 9.9 mg/dL Normal 8.5-10.2 [facility] Comment on above: Order Comment: Speci men Type: BLOOD SPECIMEN Performed By: #### 2 4323-8, ####[facility]ORATORYCLIA [id number] [place] [address] Chloride [Moles/Vol] 105 mmol/L Normal 97-105 [facility] Comment on above: Order Comment: Speci men Type: BLOOD SPECIMEN Performed By: #### 2 4323-8, ####[facility] LABORATORYCLIA [id number] [place] [address] CO2 [Moles/Vol] 24 mmol/L Normal 22-30 [facility] Comment on above: Order Comment: Speci men Type: BLOOD SPECIMEN Performed By: #### 2 4328, ####[facility]ORATORYCLIA [id number] [place] [address] Creatinine [Mass/Vol] 0.86 mg/dL Normal 0.58-0.96 [facility] Comment on above: Order Comment: Speci men Type: BLOOD SPECIMEN Performed By: #### 2 432-8, ####[facility]ORATORYCLIA [id number] [place] [address] GFR/1.73 sq M.predicted MDRD (S/P/Bld) [Vol rate/Area] mL/min/{1.73_m2} Normal [facility] Comment on above: Order Comment: Speci [...] actual GFR. Performed By: #### 2 4323-8, ####[facility] LABORATORYCLIA [id number] [place] [address] Glucose [Mass/Vol] 91 mg/dL Normal 74-99 [facility] Comment on above: Order Comment: Speci men Type: BLOOD SPECIMEN Result Comment: The [place] Diabetes Association (ADA) provides guidance for cutoff [...] Standards of Medical Care in Diabetes 2016, [place] [employer]. Diabetes Care. 2016.39(Suppl 1). Performed By: #### 2 4328, ####[facility] LABORATORYCLIA [id number] [place] [address] Potassium [Moles/Vol] 4.5 mmol/L Normal 3.7-5.1 [facility] Comment on above: Order Comment: Speci men Type: BLOOD SPECIMEN Performed By: #### 2 4323-03, ####[facility]ORATORYCLIA [id number] [place] [address] Protein [Mass/Vol] 6.6 g/dL Normal 6.3-8.0 [facility] Comment on above: Order Comment: Speci men Type: BLOOD SPECIMEN Performed By: #### 2 4323-03, ####[facility]ORATORYCLIA [id number] [place] [address] Sodium [Moles/Vol] 138 mmol/L Normal 136-144 [facility] Comment on above: Order Comment: Speci men Type: BLOOD SPECIMEN Performed By: #### 2 8, ####[facility]ORATORYCLIA [id number] [place] [address] Urea nitrogen [Mass/Vol] 15 mg/dL Normal 7-21 [facility] Comment on above: Order Comment: Speci men Type: BLOOD SPECIMEN Performed By: #### 2 4323-03, ####[facility]ORATORYCLIA [id number] [place] [address] Lactate (Bld) [Moles/Vol]on 10-21-2020 Lactate [Moles/Vol] 1.0 mmol/L Normal 0.5-2.2 [facility] Comment on above: Order Comment: Speci men Type: BLOOD SPECIMEN Performed By: #### 3 2693-4 ####[facility]ORATORYCLIA [id number] [place] [address] Magnesium SerPl-mCncon 10-21 Magnesium [Mass/Vol] 1.7 mg/dL Normal 1.7-2.3 [facility] Comment on above: Order Comment: Speci men Type: BLOOD SPECIMEN Performed By: #### 2 4323-8, ####[facility]ORATORYCLIA [id number] [place] [address] Magnesium [Mass/Vol] 1.5 mg/dL Low 1.7-2.3 [facility] Comment on above: Order Comment: Speci men Type: BLOOD SPECIMEN Performed By: #### 2 4321-2, , 27702-04 ####[facility]ORATORYCLIA [id number] [place] [address] NURSING PROGon 10-21-2020 NURSING PROG Normal [facility] NURSING PROG Normal [facility] Phosphate SerPl-ncon 10-21 Phosphate [Mass/Vol] 4.2 mg/dL Normal 2.7-4.8 [facility] Comment on above: Order Comment: Speci men Type: BLOOD SPECIMEN Performed By: #### 2 4321-2, , 2777- ####[facility]ORATORYCLIA [id number] [place] [address] THERAPY NTon 10-21-2020 THERAPY NT Normal [facility] aPTT PPPon 10-21-2020 aPTT Coag (PPP) [Time] 24.0 s Normal 23.0-32.4 [facility] Comment on above: Order Comment: Speci men Type: BLOOD SPECIMEN Performed By: #### 1 4979-9 ####[facility]ORATORYCLIA [id number] [place] [address] aPTT Coag (PPP) [Time] 25.3 s Normal 23.0-32.4 [facility] Comment on above: Order Comment: Speci men Type: BLOOD SPECIMEN Performed By: #### 1 4979-9 ####[facility]ATORYCLIA [id number] [place] [address] aPTT Coag (PPP) [Time] 20.8 s Low 23.0-32.4 [facility] Comment on above: Order Comment: Speci men Type: BLOOD SPECIMEN Performed By: #### 1 4979-9 ####[facility]ATORYCLIA [id number] [place] [address] ALLIED HEALTHon 10-20-2020 ALLIED HEALTH Normal [facility] Basic metabolic 2000 panelon 10-20-2020 Anion gap [Moles/Vol] 9 mmol/L Normal 9-18 [facility] Comment on above: Order Comment: Speci men Type: BLOOD SPECIMEN Performed By: #### 2 777-1, , ####[facility]ORATORYCLIA [id number] [place] [address] Calcium [Mass/Vol] 9.6 mg/dL Normal 8.5-10.2 [facility] Comment on above: Order Comment: Speci men Type: BLOOD SPECIMEN Performed By: #### 2 777-1, , ####[facility]ORATORYCLIA [id number] [place] [address] Chloride [Moles/Vol] 107 mmol/L High 97-105 [facility] Comment on above: Order Comment: Speci men Type: BLOOD SPECIMEN Performed By: #### 2 777-1, 55047-8, ####[facility]ORYCLIA [id number] [place] [address] CO2 [Moles/Vol] 23 mmol/L Normal 22-30 [facility] Comment on above: Order Comment: Speci men Type: BLOOD SPECIMEN Performed By: #### 2 777-1, 30124-0, ####[facility]ORYCLIA [id number] [place] [address] Creatinine [Mass/Vol] 0.85 mg/dL Normal 0.58-0.96 [facility] Comment on above: Order Comment: Speci men Type: BLOOD SPECIMEN Performed By: #### 2 777-1, 34385-9, ####[facility]ORATORYCLIA [id number] [place] [address] GFR/1.73 sq M.predicted MDRD (S/P/Bld) [Vol rate/Area] mL/min/{1.73_m2} Normal [facility] Comment on above: Order Comment: Speci [...] actual GFR. Performed By: #### 2 777-1, 34618-2, ####[facility]ORATORYCLIA [id number] [place] [address] Glucose [Mass/Vol] 97 mg/dL Normal 74-99 [facility] Comment on above: Order Comment: Speci men Type: BLOOD SPECIMEN Result Comment: The [place] Diabetes Association (ADA) provides guidance for cutoff [...] Standards of Medical Care in Diabetes 2016, [place] [employer]. Diabetes Care. 2016.39(Suppl 1). Performed By: #### 2 777-1, 49563-5, ####[facility]ORATORYCLIA [id number] [place] [address] Potassium [Moles/Vol] 4.3 mmol/L Normal 3.7-5.1 [facility] Comment on above: Order Comment: Speci men Type: BLOOD SPECIMEN Performed By: #### 2 777-1, 73146-3, ####[facility]ORATORYCLIA [id number] [place] [address] Sodium [Moles/Vol] 139 mmol/L Normal 136-144 [facility] Comment on above: Order Comment: Speci men Type: BLOOD SPECIMEN Performed By: #### 2 777-1, , ####[facility]ORATORYCLIA [id number] [place] [address] Urea nitrogen [Mass/Vol] 11 mg/dL Normal 7-21 [facility] Comment on above: Order Comment: Speci men Type: BLOOD SPECIMEN Performed By: #### 2 777-1, , ####[facility]ORATORYCLIA [id number] [place] [address] CBC panel Auto (Bld)on 10-20 Erythrocyte distribution width (RBC) [Ratio] 13.7 % Normal 11.5-15.0 [facility] Comment on above: Order Comment: Speci men Type: BLOOD SPECIMEN Performed By: #### 5 8410-2 ####[facility]ORATORYCLIA [id number] [place] [address] Hematocrit (Bld) [Volume fraction] 34.1 % Low 36.0-46.0 [facility] Comment on above: Order Comment: Speci men Type: BLOOD SPECIMEN Performed By: #### 5 8410-2 ####[facility]ORATORYCLIA [id number] [place] [address] Hemoglobin (Bld) [Mass/Vol] 11.4 g/dL Low 11.5-15.5 [facility] Comment on above: Order Comment: Speci men Type: BLOOD SPECIMEN Performed By: #### 5 8410-2 ####[facility]ORATORYCLIA [id number] [place] [address] MCH (RBC) [Entitic mass] 32.9 pg Normal 26.0-34.0 [facility] Comment on above: Order Comment: Speci men Type: BLOOD SPECIMEN Performed By: #### 5 8410-2 ####[facility]ORATORYCLIA [id number] [place] [address] MCHC (RBC) [Mass/Vol] 33.4 g/dL Normal 30.5-36.0 [facility] Comment on above: Order Comment: Speci men Type: BLOOD SPECIMEN Performed By: #### 5 8410-2 ####[facility]ORATORYCLIA [id number] [place] [address] MCV (RBC) [Entitic vol] 98.6 fL Normal 80.0-100.0 [facility] Comment on above: Order Comment: Speci men Type: BLOOD SPECIMEN Performed By: #### 5 8410-2 ####[facility]ORATORYCLIA [id number] [place] [address] Nucleated RBC (Bld) [#/Vol] 10*3/uL Normal <0.01 [facility] Comment on above: Order Comment: Speci men Type: BLOOD SPECIMEN Performed By: #### 5 8410-2 ####[facility]ORATORYCLIA [id number] [place] [address] Platelet mean volume (Bld) [Entitic vol] 10.3 fL Normal 9.0-12.7 [facility] Comment on above: Order Comment: Speci men Type: BLOOD SPECIMEN Performed By: #### 5 8410-2 ####[facility]ORATORYCLIA [id number] [place] [address] Platelets (Bld) [#/Vol] 240 10*3/uL Normal 150-400 [facility] Comment on above: Order Comment: Speci men Type: BLOOD SPECIMEN Performed By: #### 5 8410-2 ####[facility]ATORYCLIA [id number] [place] [address] RBC (Bld) [#/Vol] 3.46 10*6/uL Low 3.90-5.20 [facility] Comment on above: Order Comment: Speci men Type: BLOOD SPECIMEN Performed By: #### 5 8410-2 ####[facility]ORATORYCLIA [id number] [place] [address] WBC (Bld) [#/Vol] 7.52 10*3/uL Normal 3.70-11.00 [facility] Comment on above: Order Comment: Speci men Type: BLOOD SPECIMEN Performed By: #### 5 8410-2 ####[facility]ORATORYCLIA [id number] [place] [address] CONSULT PROGon 10-20-2020 CONSULT PROG Normal [facility] CONSULT PROG Normal [facility] CT BRAIN WO IVCONon 10-21-[address] BRAIN WO IVCON Final Report DATE OF EXAM: Oct 20 2020 9:27AM [facility] 0504 - CT BRAIN WO [...] Iterative recon COMPARISON: Head CT 10/18/2020 RESULT: Shingle Bolt Cutter (topogram) images: Post-operative change: Aneurysm coil in [...] of 10/18/2020. Chronic infarcts as described above. 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 Transcribe Date/Time: Oct 20 2020 9:51A Dictated by : IDALIA MEHTA MD This examination was interpreted and the report reviewed and electronically signed by: IDALIA MEHTA MD on Oct 20 2020 9:57AM EST Normal [facility] Magnesium SerPl-mCncon 10-20 Magnesium [Mass/Vol] 1.6 mg/dL Low 1.7-2.3 [facility] Comment on above: Order Comment: Speci men Type: BLOOD SPECIMEN Performed By: #### 2 777-1, 96313-6, 10457-4 ####[facility]ORATORYCLIA [id number] [place] [address] NM INFECTION WB WBCon 2020 WBC (Bld) [#/Vol] Final Report DATE OF EXAM: Oct 20 2020 12:44PM [facility] 0026 - [place] INFECTION WB WBC [...] mild infectious/inflammatory process, including an IV line. 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 Transcribe Date/Time: Oct 20 2020 1:03P Dictated by : KRISHNA LUBIN MD This examination was interpreted and the report reviewed and electronically signed by: KRISHNA LUBIN MD on Oct 20 2020 1:12PM EST Normal [facility] NURSING PROGon 10-20-2020 NURSING PROG Normal [facility] Phosphate SerPl-mCncon 10-20 Phosphate [Mass/Vol] 4.4 mg/dL Normal 2.7-4.8 [facility] Comment on above: Order Comment: Speci men Type: BLOOD SPECIMEN Performed By: #### 2 777-1, 74823-6, ####[facility]ORATORYCLIA [id number] [place] [address] aPTT PPPon 10-20-2020 aPTT Coag (PPP) [Time] 123.0 s High 23.0-32.4 [facility] Comment on above: Order Comment: Speci men Type: BLOOD SPECIMEN Performed By: #### 1 4979-9 ####[facility]ORATORYCLIA [id number] [place] [address] Basic metabolic 2000 panelon 10-19-2020 Anion gap [Moles/Vol] 8 mmol/L Low 9-18 [facility] Comment on above: Order Comment: Speci men Type: BLOOD SPECIMEN Performed By: #### 2 777-1, 02567-7, 81655-6 ####[facility]ORATORYCLIA [id number] [place] [address] Calcium [Mass/Vol] 9.3 mg/dL Normal 8.5-10.2 [facility] Comment on above: Order Comment: Speci men Type: BLOOD SPECIMEN Performed By: #### 2 777-1, 60477-1, 39182-6 ####[facility]ATORYCLIA [id number] [place] [address] Chloride [Moles/Vol] 105 mmol/L Normal 97-105 [facility] Comment on above: Order Comment: Speci men Type: BLOOD SPECIMEN Performed By: #### 2 777-1, 59859-7, ####[facility]ORATORYCLIA [id number] [place] [address] CO2 [Moles/Vol] 25 mmol/L Normal 22-30 [facility] Comment on above: Order Comment: Speci men Type: BLOOD SPECIMEN Performed By: #### 2 777-1, 90405-5, ####[facility] [id number] [place] [address] Creatinine [Mass/Vol] 0.88 mg/dL Normal 0.58-0.96 [facility] Comment on above: Order Comment: Speci men Type: BLOOD SPECIMEN Performed By: #### 2 777-1, , ####[facility]ATORYCLIA [id number] [place] [address] GFR/1.73 sq M.predicted MDRD (S/P/Bld) [Vol rate/Area] mL/min/{1.73_m2} Normal [facility] Comment on above: Order Comment: Speci [...] actual GFR. Performed By: #### 2 777-1, 00536-0, ####[facility]ATORYCLIA [id number] [place] [address] Glucose [Mass/Vol] 103 mg/dL High 74-99 [facility] Comment on above: Order Comment: Speci men Type: BLOOD SPECIMEN Result Comment: The [place] Diabetes Association (ADA) provides guidance for cutoff [...] Standards of Medical Care in Diabetes 2016, [place] [employer]. Diabetes Care. 2016.39(Suppl 1). Performed By: #### 2 777-1, 81863-9, ####[facility]ORATORYCLIA [id number] [place] [address] Potassium [Moles/Vol] 4.0 mmol/L Normal 3.7-5.1 [facility] Comment on above: Order Comment: Speci men Type: BLOOD SPECIMEN Performed By: #### 2 777-1, , ####[facility]ORATORYCLIA [id number] [place] [address] Sodium [Moles/Vol] 138 mmol/L Normal 136-144 [facility] Comment on above: Order Comment: Speci men Type: BLOOD SPECIMEN Performed By: #### 2 777-1, , ####[facility]ATORYCLIA [id number] [place] [address] Urea nitrogen [Mass/Vol] 10 mg/dL Normal 7-21 [facility] Comment on above: Order Comment: Speci men Type: BLOOD SPECIMEN Performed By: #### 2 777-1, 21911-2, ####[facility]ORATORYCLIA [id number] [place] [address] CASE MANAGEMon 10-19-2020 CASE MANAGEM Normal [facility] CBC panel Auto (Bld)on 10-19 Erythrocyte distribution width (RBC) [Ratio] 13.9 % Normal 11.5-15.0 [facility] Comment on above: Order Comment: Speci men Type: BLOOD SPECIMEN Performed By: #### 5 8410-2 ####[facility]ORATORYCLIA [id number] [place] [address] Hematocrit (Bld) [Volume fraction] 34.0 % Low 36.0-46.0 [facility] Comment on above: Order Comment: Speci men Type: BLOOD SPECIMEN Performed By: #### 5 8410-2 ####[facility]ATORYCLIA [id number] [place] [address] Hemoglobin (Bld) [Mass/Vol] 11.3 g/dL Low 11.5-15.5 [facility] Comment on above: Order Comment: Speci men Type: BLOOD SPECIMEN Performed By: #### 5 8410-2 ####[facility]ATORYCLIA [id number] [place] [address] MCH (RBC) [Entitic mass] 32.9 pg Normal 26.0-34.0 [facility] Comment on above: Order Comment: Speci men Type: BLOOD SPECIMEN Performed By: #### 5 8410-2 ####[facility]ATORYCLIA [id number] [place] [address] MCHC (RBC) [Mass/Vol] 33.2 g/dL Normal 30.5-36.0 [facility] Comment on above: Order Comment: Speci men Type: BLOOD SPECIMEN Performed By: #### 5 8410-2 ####[facility]ATORYCLIA [id number] [place] [address] MCV (RBC) [Entitic vol] 99.1 fL Normal 80.0-100.0 [facility] Comment on above: Order Comment: Speci men Type: BLOOD SPECIMEN Performed By: #### 5 8410-2 ####[facility]ORATORYCLIA [id number] [place] [address] Nucleated RBC (Bld) [#/Vol] 10*3/uL Normal <0.01 [facility] Comment on above: Order Comment: Speci men Type: BLOOD SPECIMEN Performed By: #### 5 8410-2 ####[facility]ATORYCLIA [id number] [place] [address] Platelet mean volume (Bld) [Entitic vol] 10.2 fL Normal 9.0-12.7 [facility] Comment on above: Order Comment: Speci men Type: BLOOD SPECIMEN Performed By: #### 5 8410-2 ####[facility]ATORYCLIA [id number] [place] [address] Platelets (Bld) [#/Vol] 196 10*3/uL Normal 150-400 [facility] Comment on above: Order Comment: Speci men Type: BLOOD SPECIMEN Performed By: #### 5 8410-2 ####[facility]ATORYCLIA [id number] [place] [address] RBC (Bld) [#/Vol] 3.43 10*6/uL Low 3.90-5.20 [facility] Comment on above: Order Comment: Speci men Type: BLOOD SPECIMEN Performed By: #### 5 8410-2 ####[facility]ATORYCLIA [id number] [place] [address] WBC (Bld) [#/Vol] 6.45 10*3/uL Normal 3.70-11.00 [facility] Comment on above: Order Comment: Speci men Type: BLOOD SPECIMEN Performed By: #### 5 8410-2 ####[facility]ATORYCLIA [id number] [place] [address] CONSULT PROGon 10-19-2020 CONSULT PROG Normal [facility] CONSULT PROG Normal [facility] Magnesium SerPl-mCncon 10-19 Magnesium [Mass/Vol] 1.5 mg/dL Low 1.7-2.3 [facility] Comment on above: Order Comment: Speci men Type: BLOOD SPECIMEN Performed By: #### 2 777-1, 67172-9, ####[facility]ORATORYCLIA [id number] [place] [address] NUTRITIONon 10-19-2020 NUTRITION Normal [facility] Phosphate SerPl-mCncon 10-19 Phosphate [Mass/Vol] 3.8 mg/dL Normal 2.7-4.8 [facility] Comment on above: Order Comment: Speci men Type: BLOOD SPECIMEN Performed By: #### 2 777-1, 66860-3, ####[facility]ORATORYCLIA [id number] [place] [address] THERAPY NTon 10-19-2020 THERAPY NT Normal [facility] THERAPY NT Normal [facility] Vancomycin random [Mass/Vol] on 10-19-2020 Vancomycin [Mass/Vol] 20.8 ug/mL High 10.0-20.0 [facility] Comment on above: Order Comment: Speci men Type: BLOOD SPECIMEN Result Comment: Refe rence ranges and high/low indicator flags are provided as general guidelines only. The treating physician must determine appropriate target levels/dosing based on the specific clinical situation. Performed By: #### 4 091-5 ####[facility]ORATORYCLIA [id number] [place] [address] aPTT PPPon 10-19-2020 aPTT Coag (PPP) [Time] 44.4 s High 23.0-32.4 [facility] Comment on above: Order Comment: Speci men Type: BLOOD SPECIMEN Performed By: #### 1 4979-9 ####[facility]ORATORYCLIA [id number] [place] [address] aPTT Coag (PPP) [Time] 47.8 s High 23.0-32.4 [facility] Comment on above: Order Comment: Speci men Type: BLOOD SPECIMEN Performed By: #### 1 4979-9 ####[facility]ATORYCLIA [id number] [place] [address] aPTT Coag (PPP) [Time] 91.0 s High 23.0-32.4 [facility] Comment on above: Order Comment: Speci men Type: BLOOD SPECIMEN Performed By: #### 1 4979-9 ####[facility]ORYCLIA [id number] [place] [address] ALLIED HEALTHon 10-18-2020 ALLIED HEALTH Normal [facility] Basic metabolic 2000 panelon 10-18-2020 Anion gap [Moles/Vol] 8 mmol/L Low 9-18 [facility] Comment on above: Order Comment: Speci men Type: BLOOD SPECIMEN Performed By: #### 2 4321-2, , 2776-08 ####[facility]ORYCLIA [id number] [place] [address] Calcium [Mass/Vol] 8.9 mg/dL Normal 8.5-10.2 [facility] Comment on above: Order Comment: Speci men Type: BLOOD SPECIMEN Performed By: #### 2 4321-2, , 2776-08 ####[facility]ORYCLIA [id number] [place] [address] Chloride [Moles/Vol] 107 mmol/L High 97-105 [facility] Comment on above: Order Comment: Speci men Type: BLOOD SPECIMEN Performed By: #### 2 4321-2, , 2776-08 ####[facility]ORYCLIA [id number] [place] [address] CO2 [Moles/Vol] 23 mmol/L Normal 22-30 [facility] Comment on above: Order Comment: Speci men Type: BLOOD SPECIMEN Performed By: #### 2 4321-2, , 2776-08 ####[facility]ORYCLIA [id number] [place] [address] Creatinine [Mass/Vol] 0.80 mg/dL Normal 0.58-0.96 [facility] Comment on above: Order Comment: Speci men Type: BLOOD SPECIMEN Performed By: #### 2 4321-2, , 2776-08 ####[facility]ORYCLIA [id number] [place] [address] GFR/1.73 sq M.predicted MDRD (S/P/Bld) [Vol rate/Area] mL/min/{1.73_m2} Normal [facility] Comment on above: Order Comment: Speci [...] Performed By: #### 2 4321-2, , 2776-08 ####[facility]ORATORYCLIA [id number] [place] [address] Glucose [Mass/Vol] 90 mg/dL Normal 74-99 [facility] Comment on above: Order Comment: Speci men Type: BLOOD SPECIMEN Result Comment: The [place] [employer] Association (ADA) provides guidance for cutoff [...] Standards of Medical Care in Diabetes 2016, [place] [employer]. Diabetes Care. 2016.39(Suppl 1). Performed By: #### 2 4321-2, , 2776-08 ####[facility]ORATORYCLIA [id number] [place] [address] Potassium [Moles/Vol] 4.3 mmol/L Normal 3.7-5.1 [facility] Comment on above: Order Comment: Speci men Type: BLOOD SPECIMEN Performed By: #### 2 4321-2, , 2776-08 ####[facility]ORYCLIA [id number] [place] [address] Sodium [Moles/Vol] 138 mmol/L Normal 136-144 [facility] Comment on above: Order Comment: Speci men Type: BLOOD SPECIMEN Performed By: #### 2 4321-2, , 2776- ####[facility]ORYCLIA [id number] [place] [address] Urea nitrogen [Mass/Vol] 9 mg/dL Normal 7-21 [facility] Comment on above: Order Comment: Speci men Type: BLOOD SPECIMEN Performed By: #### 2 4321-2, , 2776-08 ####[facility]ORATORYCLIA [id number] [place] [address] CBC panel Auto (Bld)on 10-18 Erythrocyte distribution width (RBC) [Ratio] 13.6 % Normal 11.5-15.0 [facility] Comment on above: Order Comment: Speci men Type: BLOOD SPECIMEN Performed By: #### 5 8410-2 ####[facility]ORATORYCLIA [id number] [place] [address] Hematocrit (Bld) [Volume fraction] 32.0 % Low 36.0-46.0 [facility] Comment on above: Order Comment: Speci men Type: BLOOD SPECIMEN Performed By: #### 5 8410-2 ####[facility]ORYCLIA [id number] [place] [address] Hemoglobin (Bld) [Mass/Vol] 10.7 g/dL Low 11.5-15.5 [facility] Comment on above: Order Comment: Speci men Type: BLOOD SPECIMEN Performed By: #### 5 8410-2 ####[facility]ORATORYCLIA [id number] [place] [address] MCH (RBC) [Entitic mass] 33.0 pg Normal 26.0-34.0 [facility] Comment on above: Order Comment: Speci men Type: BLOOD SPECIMEN Performed By: #### 5 8410-2 ####[facility] LABORATORYCLIA [id number] [place] [address] MCHC (RBC) [Mass/Vol] 33.4 g/dL Normal 30.5-36.0 [facility] Comment on above: Order Comment: Speci men Type: BLOOD SPECIMEN Performed By: #### 5 8410-2 ####[facility] LABORATORYCLIA [id number] [place] [address] MCV (RBC) [Entitic vol] 98.8 fL Normal 80.0-100.0 [facility] Comment on above: Order Comment: Speci men Type: BLOOD SPECIMEN Performed By: #### 5 8410-2 ####[facility] LABORATORYCLIA [id number] [place] [address] Nucleated RBC (Bld) [#/Vol] 10*3/uL Normal <0.01 [facility] Comment on above: Order Comment: Speci men Type: BLOOD SPECIMEN Performed By: #### 5 8410-2 ####[facility] LABORATORYCLIA [id number] [place] [address] Platelet mean volume (Bld) [Entitic vol] 10.5 fL Normal 9.0-12.7 [facility] Comment on above: Order Comment: Speci men Type: BLOOD SPECIMEN Performed By: #### 5 8410-2 ####[facility] LABORATORYCLIA [id number] [place] [address] Platelets (Bld) [#/Vol] 193 10*3/uL Normal 150-400 [facility] Comment on above: Order Comment: Speci men Type: BLOOD SPECIMEN Performed By: #### 5 8410-2 ####[facility] LABORATORYCLIA [id number] [place] [address] RBC (Bld) [#/Vol] 3.24 10*6/uL Low 3.90-5.20 [facility] Comment on above: Order Comment: Speci men Type: BLOOD SPECIMEN Performed By: #### 5 8410-2 ####[facility] LABORATORYCLIA [id number] [place] [address] WBC (Bld) [#/Vol] 8.31 10*3/uL Normal 3.70-11.00 [facility] Comment on above: Order Comment: Speci men Type: BLOOD SPECIMEN Performed By: #### 5 8410-2 ####[facility] LABORATORYCLIA [id number] [place] [address] CT BRAIN WO IVCONon 10-19-[address] BRAIN WO IVCON Final Report DATE OF EXAM: Oct 18 2020 9:03AM [facility] 0504 - CT BRAIN WO [...] Reduction Employed: Iterative recon COMPARISON: None. RESULT: Shingle Bolt Cutter (topogram) images: Unremarkable. Post-operative change: Status post [...] the prior study of one week ago. 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 Transcribe Date/Time: Oct 18 2020 9:56A Dictated by : RICH MATA MD This examination was interpreted and the report reviewed and electronically signed by: RICH MATA MD on Oct 18 2020 9:57AM EST Normal [facility] Magnesium SerPl-mCncon 10-18 Magnesium [Mass/Vol] 1.5 mg/dL Low 1.7-2.3 [facility] Comment on above: Order Comment: Speci men Type: BLOOD SPECIMEN Performed By: #### 2 4321-2, , 2776-08 ####[facility] LABORATORYCLIA [id number] [place] [address] Phosphate SerPl-ncon 10-18 Phosphate [Mass/Vol] 3.6 mg/dL Normal 2.7-4.8 [facility] Comment on above: Order Comment: Speci men Type: BLOOD SPECIMEN Performed By: #### 2 4321-2, , 2776-08 ####[facility] LABORATORYCLIA [id number] [place] [address] aPTT PPPon 10-18-2020 aPTT Coag (PPP) [Time] 42.5 s High 23.0-32.4 [facility] Comment on above: Order Comment: Speci men Type: BLOOD SPECIMEN Performed By: #### 1 4979-9 ####[facility] LABORATORYCLIA [id number] [place] [address] aPTT Coag (PPP) [Time] 80.0 s High 23.0-32.4 [facility] Comment on above: Order Comment: Speci men Type: BLOOD SPECIMEN Performed By: #### 1 4979-9 ####[facility] LABORATORYCLIA [id number] [place] [address] aPTT Coag (PPP) [Time] 43.3 s High 23.0-32.4 [facility] Comment on above: Order Comment: Speci men Type: BLOOD SPECIMEN Performed By: #### 1 4979-9 ####[facility] LABORATORYCLIA [id number] [place] [address] aPTT Coag (PPP) [Time] 49.8 s High 23.0-32.4 [facility] Comment on above: Order Comment: Speci men Type: BLOOD SPECIMEN Performed By: #### 1 4979-9 ####[facility] LABORATORYCLIA [id number] [place] [address] ANES POSTPROC EVALon 021 ANES POSTPROC EVAL Normal [facility] ANES PRE-OPon 10-17-2020 ANES PRE-OP Normal [facility] BRIEF OP NOTon 10-17-2020 BRIEF OP NOT Normal [facility] CBC panel Auto (Bld)on 10-17 Erythrocyte distribution width (RBC) [Ratio] 13.9 % Normal 11.5-15.0 [facility] Comment on above: Order Comment: Speci men Type: BLOOD SPECIMEN Performed By: #### 5 8410-2 ####[facility] LABORATORYCLIA [id number] [place] [address] Hematocrit (Bld) [Volume fraction] 40.9 % Normal 36.0-46.0 [facility] Comment on above: Order Comment: Speci men Type: BLOOD SPECIMEN Performed By: #### 5 8410-2 ####[facility] LABORATORYCLIA [id number] [place] [address] Hemoglobin (Bld) [Mass/Vol] 13.7 g/dL Normal 11.5-15.5 [facility] Comment on above: Order Comment: Speci men Type: BLOOD SPECIMEN Performed By: #### 5 8410-2 ####[facility] LABORATORYCLIA [id number] [place] [address] MCH (RBC) [Entitic mass] 33.1 pg Normal 26.0-34.0 [facility] Comment on above: Order Comment: Speci men Type: BLOOD SPECIMEN Performed By: #### 5 8410-2 ####[facility] LABORATORYCLIA [id number] [place] [address] MCHC (RBC) [Mass/Vol] 33.5 g/dL Normal 30.5-36.0 [facility] Comment on above: Order Comment: Speci men Type: BLOOD SPECIMEN Performed By: #### 5 8410-2 ####[facility] LABORATORYCLIA [id number] [place] [address] MCV (RBC) [Entitic vol] 98.8 fL Normal 80.0-100.0 [facility] Comment on above: Order Comment: Speci men Type: BLOOD SPECIMEN Performed By: #### 5 8410-2 ####[facility] LABORATORYCLIA [id number] [place] [address] Nucleated RBC (Bld) [#/Vol] 10*3/uL Normal <0.01 [facility] Comment on above: Order Comment: Speci men Type: BLOOD SPECIMEN Performed By: #### 5 8410-2 ####[facility] LABORATORYCLIA [id number] [place] [address] Platelet mean volume (Bld) [Entitic vol] 10.5 fL Normal 9.0-12.7 [facility] Comment on above: Order Comment: Speci men Type: BLOOD SPECIMEN Performed By: #### 5 8410-2 ####[facility] LABORATORYCLIA [id number] [place] [address] Platelets (Bld) [#/Vol] 227 10*3/uL Normal 150-400 [facility] Comment on above: Order Comment: Speci men Type: BLOOD SPECIMEN Performed By: #### 5 8410-2 ####[facility] LABORATORYCLIA [id number] [place] [address] RBC (Bld) [#/Vol] 4.14 10*6/uL Normal 3.90-5.20 [facility] Comment on above: Order Comment: Speci men Type: BLOOD SPECIMEN Performed By: #### 5 8410-2 ####[facility] LABORATORYCLIA [id number] [place] [address] WBC (Bld) [#/Vol] 6.08 10*3/uL Normal 3.70-11.00 [facility] Comment on above: Order Comment: Speci men Type: BLOOD SPECIMEN Performed By: #### 5 8410-2 ####[facility] LABORATORYCLIA [id number] [place] [address] CONSULT PROGon 10-17-2020 CONSULT PROG Normal [facility] HISTORY PHYSICALon 1 HISTORY PHYSICAL Normal [facility] NIL ANEURYSM COILING CNSon 0 10-17-2020 NIL ANEURYSM COILING FOOD SERVICE LEAD Final Report DATE OF EXAM: Oct 17 2020 11:37AM A6A 2386 - NIL ANEURYSM COILING FOOD SERVICE LEAD / PROCEDURE REASON: Embo Physician Interpretation Endovascular [...] 858 PROCEDURE END TIME: 1124 ATTENDING: Luz Armsa MD GERIATRIC NURSE ASSISTANT (FELLOW): The procedure was performed by the attending without an assistant dean. The attending performed the following procedural activities: [...] are normal.. Bilateral SCAs are normal. Bilateral ocean rescue lieutenant are normal. The capillary and venous phases [...] exchanged for the diagnostic catheter. An 0.016 [place] SL-10 microcatheter was then manipulated into the aneurysm over a 0.014 Syncro-2 microwire. An SL-10 microcatheter advanced over the Synchro wire into the right A2 segment. A 3mm x21mm neuroform [place] stent was then deployed across the neck of the aneurysm from the right A2 to the left A1. Follow-up angiography performed. The stent delivery system was removed and follow-up angiography performed. An SL-10 microcatheter advanced over the Synchro wire into the left A2 segment. A 3mm x21mm neuroform [place] stent was then deployed across the neck of the aneurysm from the left A2 to the left A1. Follow-up angiography performed. The stent delivery system was removed and follow-up angiography performed. Coil embolization was then initiated. A total of 6 coils were detached in the aneurysm as follows: Target 360 Soft: 9mbm62oj Target 360 Soft 4rhj97cj Target 360 Soft 6wvv48gn Target 360 Soft 8vjq61pn Target 360 Ultra 3zlq97gb Target 360 Ultra 5xvf5rv Control angiography was performed intermittently during the [...] exchanged for the diagnostic catheter. An 0.016 [place] SL-10 microcatheter was then manipulated into the aneurysm over a 0.014 Syncro-2 microwire. Coil embolization was started however the coil mass would fall out of the aneurysm. An SL-10 microcatheter advanced over the Synchro wire into the left CLINICAL INFORMATICS MANAGER segment. A 3mm x24mm neuroform [place] stent was then deployed across the neck of the aneurysm from the left CLINICAL INFORMATICS MANAGER to the basilar artery. Follow-up angiography performed. The stent delivery system was removed and follow-up angiography performed. Follow-up angiography performed. The stent delivery system was removed and follow-up angiography performed. Coil embolization was then initiated. A total of 6 coils were detached in the aneurysm as follows: Target 360 Soft: 3yjg06ee Target 360 Soft 3yrz6dl Target 360 Ultra 2kby7lu Target 360 Ultra 2.1xmk9du Target 360 Ultra 2.1ntc1cy Target 360 Ultra 8axb2vk Control angiography was performed intermittently during the [...] retrograde filling of the left ALFREDA from CLINICAL INFORMATICS MANAGER collaterals. RIGHT COMMON CAROTID ARTERY INJECTION (cranial): [...] of dissection or pseudoaneurysm. IMPRESSION: 1. 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 2. 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 3. There is slow anterograde filling of the left ALFREDA post stenting with retrograde left CLINICAL INFORMATICS MANAGER collateral filling. However, no intraluminal clot is seen in stent or vessel with microcatheter evaluation. Luz Armas MD Endovascular Neuroradiology 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 Transcribe Date/Time: Oct 17 2020 1:10P Dictated by : LUZ ARMAS MD This examination was interpreted and the report reviewed and electronically signed by: LUZ ARMAS MD on Oct 17 2020 1:32PM EST Normal [facility] NIL ANEURYSM COILING FOOD SERVICE LEAD Final Report DATE OF EXAM: Oct 17 2020 11:37AM A6A 2386 - NIL ANEURYSM COILING FOOD SERVICE LEAD / PROCEDURE REASON: Embo Physician Interpretation Endovascular [...] END TIME: 1124 ATTENDING: Luz Armas MD GERIATRIC NURSE ASSISTANT (FELLOW): The procedure was performed by the attending without an assistant dean. The attending performed the following procedural activities: [...] are normal.. Bilateral SCAs are normal. Bilateral ocean rescue lieutenant are normal. The capillary and venous phases [...] exchanged for the diagnostic catheter. An 0.016 [place] SL-10 microcatheter was then manipulated into the aneurysm over a 0.014 Syncro-2 microwire. An SL-10 microcatheter advanced over the Synchro wire into the right A2 segment. A 3mm x21mm neuroform [place] stent was then deployed across the neck of the aneurysm from the right A2 to the left A1. Follow-up angiography performed. The stent delivery system was removed and follow-up angiography performed. An SL-10 microcatheter advanced over the Synchro wire into the left A2 segment. A 3mm x21mm neuroform [place] stent was then deployed across the neck of the aneurysm from the left A2 to the left A1. Follow-up angiography performed. The stent delivery system was removed and follow-up angiography performed. Coil embolization was then initiated. A total of 6 coils were detached in the aneurysm as follows: Target 360 Soft: 2kll77ov Target 360 Soft 9iwa87hh Target 360 Soft 1qfj74nl Target 360 Soft 9juz96rr Target 360 Ultra 0nkw99pj Target 360 Ultra 5luh8lf Control angiography was performed intermittently during the [...] exchanged for the diagnostic catheter. An 0.016 [place] SL-10 microcatheter was then manipulated into the aneurysm over a 0.014 Syncro-2 microwire. Coil embolization was started however the coil mass would fall out of the aneurysm. An SL-10 microcatheter advanced over the Synchro wire into the left CLINICAL INFORMATICS MANAGER segment. A 3mm x24mm neuroform [place] stent was then deployed across the neck of the aneurysm from the left CLINICAL INFORMATICS MANAGER to the basilar artery. Follow-up angiography performed. The stent delivery system was removed and follow-up angiography performed. Follow-up angiography performed. The stent delivery system was removed and follow-up angiography performed. Coil embolization was then initiated. A total of 6 coils were detached in the aneurysm as follows: Target 360 Soft: 6wqf37qa Target 360 Soft 1bmu3mo Target 360 Ultra 3pyb8qz Target 360 Ultra 2.6vmv5ru Target 360 Ultra 2.5yvn4ok Target 360 Ultra 9vgd5bi Control angiography was performed intermittently during the [...] retrograde filling of the left ALFREDA from CLINICAL INFORMATICS MANAGER collaterals. RIGHT COMMON CAROTID ARTERY INJECTION (cranial): [...] of dissection or pseudoaneurysm. IMPRESSION: 1. 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 2. 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 3. There is slow anterograde filling of the left ALFREDA post stenting with retrograde left CLINICAL INFORMATICS MANAGER collateral filling. However, no intraluminal clot is seen in stent or vessel with microcatheter evaluation. Luz Armas MD Endovascular Neuroradiology 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: [facility] Transcribe Date/Time: Oct 17 2020 1:10P Dictated by : LUZ ARMAS MD This examination was interpreted and the report reviewed and electronically signed by: LUZ ARMAS MD on Oct 17 2020 1:32PM EST Normal [facility] NIL CAROTID CEREBRAL UNILATE RALon 10-17-2020 NIL [...] END TIME: 1124 ATTENDING: Luz Armas MD GERIATRIC NURSE ASSISTANT (FELLOW): The procedure was performed by the attending without an assistant dean. The attending performed the following procedural activities: [...] are normal.. Bilateral SCAs are normal. Bilateral ocean rescue lieutenant are normal. The capillary and venous phases [...] exchanged for the diagnostic catheter. An 0.016 [place] SL-10 microcatheter was then manipulated into the aneurysm over a 0.014 Syncro-2 microwire. An SL-10 microcatheter advanced over the Synchro wire into the right A2 segment. A 3mm x21mm neuroform [place] stent was then deployed across the neck of the aneurysm from the right A2 to the left A1. Follow-up angiography performed. The stent delivery system was removed and follow-up angiography performed. An SL-10 microcatheter advanced over the Synchro wire into the left A2 segment. A 3mm x21mm neuroform [place] stent was then deployed across the neck of the aneurysm from the left A2 to the left A1. Follow-up angiography performed. The stent delivery system was removed and follow-up angiography performed. Coil embolization was then initiated. A total of 6 coils were detached in the aneurysm as follows: Target 360 Soft: 7smi00lq Target 360 Soft 0hsd30nv Target 360 Soft 7ifu95bq Target 360 Soft 1eic26rk Target 360 Ultra 8sho07au Target 360 Ultra 2vac4dt Control angiography was performed intermittently during the [...] exchanged for the diagnostic catheter. An 0.016 [place] SL-10 microcatheter was then manipulated into the aneurysm over a 0.014 Syncro-2 microwire. Coil embolization was started however the coil mass would fall out of the aneurysm. An SL-10 microcatheter advanced over the Synchro wire into the left CLINICAL INFORMATICS MANAGER segment. A 3mm x24mm neuroform [place] stent was then deployed across the neck of the aneurysm from the left CLINICAL INFORMATICS MANAGER to the basilar artery. Follow-up angiography performed. The stent delivery system was removed and follow-up angiography performed. Follow-up angiography performed. The stent delivery system was removed and follow-up angiography performed. Coil embolization was then initiated. A total of 6 coils were detached in the aneurysm as follows: Target 360 Soft: 0sna00rl Target 360 Soft 6vds6vq Target 360 Ultra 3tiq1as Target 360 Ultra 2.8fqm3py Target 360 Ultra 2.8gxp0jh Target 360 Ultra 7xje3id Control angiography was performed intermittently during the [...] retrograde filling of the left ALFREDA from CLINICAL INFORMATICS MANAGER collaterals. RIGHT COMMON CAROTID ARTERY INJECTION (cranial): [...] of dissection or pseudoaneurysm. IMPRESSION: 1. 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 2. 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 3. There is slow anterograde filling of the left ALFREDA post stenting with retrograde left CLINICAL INFORMATICS MANAGER collateral filling. However, no intraluminal clot is seen in stent or vessel with microcatheter evaluation. Luz Armas MD Endovascular Neuroradiology 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: [facility] Transcribe Date/Time: Oct 17 2020 1:10P Dictated by : LUZ ARMAS MD This examination was interpreted and the report reviewed and electronically signed by: LUZ ARMAS MD on Oct 17 2020 1:32PM EST Normal [facility] NIL EXIST CATH ANGIO F/Uon 0 10-17-2020 [...] END TIME: 1124 ATTENDING: Luz Armas MD GERIATRIC NURSE ASSISTANT (FELLOW): The procedure was performed by the attending without an assistant dean. The attending performed the following procedural activities: [...] are normal.. Bilateral SCAs are normal. Bilateral ocean rescue lieutenant are normal. The capillary and venous phases [...] exchanged for the diagnostic catheter. An 0.016 [place] SL-10 microcatheter was then manipulated into the aneurysm over a 0.014 Syncro-2 microwire. An SL-10 microcatheter advanced over the Synchro wire into the right A2 segment. A 3mm x21mm neuroform [place] stent was then deployed across the neck of the aneurysm from the right A2 to the left A1. Follow-up angiography performed. The stent delivery system was removed and follow-up angiography performed. An SL-10 microcatheter advanced over the Synchro wire into the left A2 segment. A 3mm x21mm neuroform [place] stent was then deployed across the neck of the aneurysm from the left A2 to the left A1. Follow-up angiography performed. The stent delivery system was removed and follow-up angiography performed. Coil embolization was then initiated. A total of 6 coils were detached in the aneurysm as follows: Target 360 Soft: 6mfr92uk Target 360 Soft 1hza26av Target 360 Soft 9lwu95pn Target 360 Soft 3qua94yk Target 360 Ultra 1kcj62rs Target 360 Ultra 1jqr4ff Control angiography was performed intermittently during the [...] exchanged for the diagnostic catheter. An 0.016 [place] SL-10 microcatheter was then manipulated into the aneurysm over a 0.014 Syncro-2 microwire. Coil embolization was started however the coil mass would fall out of the aneurysm. An SL-10 microcatheter advanced over the Synchro wire into the left CLINICAL INFORMATICS MANAGER segment. A 3mm x24mm neuroform [place] stent was then deployed across the neck of the aneurysm from the left CLINICAL INFORMATICS MANAGER to the basilar artery. Follow-up angiography performed. The stent delivery system was removed and follow-up angiography performed. Follow-up angiography performed. The stent delivery system was removed and follow-up angiography performed. Coil embolization was then initiated. A total of 6 coils were detached in the aneurysm as follows: Target 360 Soft: 2zgg01xl Target 360 Soft 7wnv6gt Target 360 Ultra 6urd8lw Target 360 Ultra 2.7rbw8um Target 360 Ultra 2.3iqk9gt Target 360 Ultra 6ctr2wz Control angiography was performed intermittently during the [...] retrograde filling of the left ALFREDA from CLINICAL INFORMATICS MANAGER collaterals. RIGHT COMMON CAROTID ARTERY INJECTION (cranial): [...] of dissection or pseudoaneurysm. IMPRESSION: 1. 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 2. 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 3. There is slow anterograde filling of the left ALFREDA post stenting with retrograde left CLINICAL INFORMATICS MANAGER collateral filling. However, no intraluminal clot is seen in stent or vessel with microcatheter evaluation. Luz Armas MD Endovascular Neuroradiology 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: [facility] Transcribe Date/Time: Oct 17 2020 1:10P Dictated by : LUZ ARMAS MD This examination was interpreted and the report reviewed and electronically signed by: LUZ ARMAS MD on Oct 17 2020 1:32PM EST Normal [facility] NIL EXIST CATH ANGIO F/U Final Report [...] END TIME: 1124 ATTENDING: Luz Armas MD GERIATRIC NURSE ASSISTANT (FELLOW): The procedure was performed by the attending without an assistant dean. The attending performed the following procedural activities: [...] are normal.. Bilateral SCAs are normal. Bilateral ocean rescue lieutenant are normal. The capillary and venous phases [...] exchanged for the diagnostic catheter. An 0.016 [place] SL-10 microcatheter was then manipulated into the aneurysm over a 0.014 Syncro-2 microwire. An SL-10 microcatheter advanced over the Synchro wire into the right A2 segment. A 3mm x21mm neuroform [place] stent was then deployed across the neck of the aneurysm from the right A2 to the left A1. Follow-up angiography performed. The stent delivery system was removed and follow-up angiography performed. An SL-10 microcatheter advanced over the Synchro wire into the left A2 segment. A 3mm x21mm neuroform [place] stent was then deployed across the neck of the aneurysm from the left A2 to the left A1. Follow-up angiography performed. The stent delivery system was removed and follow-up angiography performed. Coil embolization was then initiated. A total of 6 coils were detached in the aneurysm as follows: Target 360 Soft: 5nnm93qo Target 360 Soft 0jnt88vm Target 360 Soft 3rsh28as Target 360 Soft 0duv54rd Target 360 Ultra 0lkd41rp Target 360 Ultra 9uak2ku Control angiography was performed intermittently during the [...] exchanged for the diagnostic catheter. An 0.016 [place] SL-10 microcatheter was then manipulated into the aneurysm over a 0.014 Syncro-2 microwire. Coil embolization was started however the coil mass would fall out of the aneurysm. An SL-10 microcatheter advanced over the Synchro wire into the left CLINICAL INFORMATICS MANAGER segment. A 3mm x24mm neuroform [place] stent was then deployed across the neck of the aneurysm from the left CLINICAL INFORMATICS MANAGER to the basilar artery. Follow-up angiography performed. The stent delivery system was removed and follow-up angiography performed. Follow-up angiography performed. The stent delivery system was removed and follow-up angiography performed. Coil embolization was then initiated. A total of 6 coils were detached in the aneurysm as follows: Target 360 Soft: 9nuy50sc Target 360 Soft 0tug1yi Target 360 Ultra 8kau7aa Target 360 Ultra 2.5fwk8wq Target 360 Ultra 2.1dif8sg Target 360 Ultra 2fod0gz Control angiography was performed intermittently during the [...] retrograde filling of the left ALFREDA from CLINICAL INFORMATICS MANAGER collaterals. RIGHT COMMON CAROTID ARTERY INJECTION (cranial): [...] of dissection or pseudoaneurysm. IMPRESSION: 1. 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 2. 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 3. There is slow anterograde filling of the left ALFREDA post stenting with retrograde left CLINICAL INFORMATICS MANAGER collateral filling. However, no intraluminal clot is seen in stent or vessel with microcatheter evaluation. Luz Armas MD Endovascular Neuroradiology 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: [facility] Transcribe Date/Time: Oct 17 2020 1:10P Dictated by : LUZ ARMAS MD This examination was interpreted and the report reviewed and electronically signed by: LUZ ARMAS MD on Oct 17 2020 1:32PM EST Normal [facility] NIL EXIST CATH ANGIO F/U Final Report [...] END TIME: 1124 ATTENDING: Luz Armas MD GERIATRIC NURSE ASSISTANT (FELLOW): The procedure was performed by the attending without an assistant dean. The attending performed the following procedural activities: [...] are normal.. Bilateral SCAs are normal. Bilateral ocean rescue lieutenant are normal. The capillary and venous phases [...] exchanged for the diagnostic catheter. An 0.016 [place] SL-10 microcatheter was then manipulated into the aneurysm over a 0.014 Syncro-2 microwire. An SL-10 microcatheter advanced over the Synchro wire into the right A2 segment. A 3mm x21mm neuroform [place] stent was then deployed across the neck of the aneurysm from the right A2 to the left A1. Follow-up angiography performed. The stent delivery system was removed and follow-up angiography performed. An SL-10 microcatheter advanced over the Synchro wire into the left A2 segment. A 3mm x21mm neuroform [place] stent was then deployed across the neck of the aneurysm from the left A2 to the left A1. Follow-up angiography performed. The stent delivery system was removed and follow-up angiography performed. Coil embolization was then initiated. A total of 6 coils were detached in the aneurysm as follows: Target 360 Soft: [id number] Target 360 Soft 0hjm76db Target 360 Soft 9xau84fp Target 360 Soft 7lbt94ru Target 360 Ultra 5qtl60kb Target 360 Ultra 0oum4ic Control angiography was performed intermittently during the [...] exchanged for the diagnostic catheter. An 0.016 [place] SL-10 microcatheter was then manipulated into the aneurysm over a 0.014 Syncro-2 microwire. Coil embolization was started however the coil mass would fall out of the aneurysm. An SL-10 microcatheter advanced over the Synchro wire into the left CLINICAL INFORMATICS MANAGER segment. A 3mm x24mm neuroform [place] stent was then deployed across the neck of the aneurysm from the left CLINICAL INFORMATICS MANAGER to the basilar artery. Follow-up angiography performed. The stent delivery system was removed and follow-up angiography performed. Follow-up angiography performed. The stent delivery system was removed and follow-up angiography performed. Coil embolization was then initiated. A total of 6 coils were detached in the aneurysm as follows: Target 360 Soft: 3stk17bz Target 360 Soft 3pwu7qs Target 360 Ultra 8uqv2by Target 360 Ultra 2.0drs9kg Target 360 Ultra 2.1srn2va Target 360 Ultra 0zmy6ow Control angiography was performed intermittently during the [...] retrograde filling of the left ALFREDA from CLINICAL INFORMATICS MANAGER collaterals. RIGHT COMMON CAROTID ARTERY INJECTION (cranial): [...] of dissection or pseudoaneurysm. IMPRESSION: 1. 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 2. 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 3. There is slow anterograde filling of the left ALFREDA post stenting with retrograde left CLINICAL INFORMATICS MANAGER collateral filling. However, no intraluminal clot is seen in stent or vessel with microcatheter evaluation. Luz Armas MD Endovascular Neuroradiology 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: [facility] Transcribe Date/Time: Oct 17 2020 1:10P Dictated by : LUZ ARMAS MD This examination was interpreted and the report reviewed and electronically signed by: LUZ ARMAS MD on Oct 17 2020 1:32PM EST Normal [facility] NIL EXIST CATH ANGIO F/U Final Report [...] END TIME: 1124 ATTENDING: Luz Armas MD GERIATRIC NURSE ASSISTANT (FELLOW): The procedure was performed by the attending without an assistant dean. The attending performed the following procedural activities: [...] are normal.. Bilateral SCAs are normal. Bilateral ocean rescue lieutenant are normal. The capillary and venous phases [...] exchanged for the diagnostic catheter. An 0.016 [place] SL-10 microcatheter was then manipulated into the aneurysm over a 0.014 Syncro-2 microwire. An SL-10 microcatheter advanced over the Synchro wire into the right A2 segment. A 3mm x21mm neuroform [place] stent was then deployed across the neck of the aneurysm from the right A2 to the left A1. Follow-up angiography performed. The stent delivery system was removed and follow-up angiography performed. An SL-10 microcatheter advanced over the Synchro wire into the left A2 segment. A 3mm x21mm neuroform [place] stent was then deployed across the neck of the aneurysm from the left A2 to the left A1. Follow-up angiography performed. The stent delivery system was removed and follow-up angiography performed. Coil embolization was then initiated. A total of 6 coils were detached in the aneurysm as follows: Target 360 Soft: 7oxr90dc Target 360 Soft 4yet71vh Target 360 Soft 3iyk83uk Target 360 Soft 9ipg82zr Target 360 Ultra 5cln33pt Target 360 Ultra 4ujf0fo Control angiography was performed intermittently during the [...] exchanged for the diagnostic catheter. An 0.016 [place] SL-10 microcatheter was then manipulated into the aneurysm over a 0.014 Syncro-2 microwire. Coil embolization was started however the coil mass would fall out of the aneurysm. An SL-10 microcatheter advanced over the Synchro wire into the left CLINICAL INFORMATICS MANAGER segment. A 3mm x24mm neuroform [place] stent was then deployed across the neck of the aneurysm from the left CLINICAL INFORMATICS MANAGER to the basilar artery. Follow-up angiography performed. The stent delivery system was removed and follow-up angiography performed. Follow-up angiography performed. The stent delivery system was removed and follow-up angiography performed. Coil embolization was then initiated. A total of 6 coils were detached in the aneurysm as follows: Target 360 Soft: 4iqu20yj Target 360 Soft 3bam1ro Target 360 Ultra 8cgk3ej Target 360 Ultra 2.3xcv3hg Target 360 Ultra 2.9ejv6lr Target 360 Ultra 7gdz2kv Control angiography was performed intermittently during the [...] retrograde filling of the left ALFREDA from CLINICAL INFORMATICS MANAGER collaterals. RIGHT COMMON CAROTID ARTERY INJECTION (cranial): [...] of dissection or pseudoaneurysm. IMPRESSION: 1. 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 2. 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 3. There is slow anterograde filling of the left ALFREDA post stenting with retrograde left CLINICAL INFORMATICS MANAGER collateral filling. However, no intraluminal clot is seen in stent or vessel with microcatheter evaluation. Luz Armas MD Endovascular Neuroradiology 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: [facility] Transcribe Date/Time: Oct 17 2020 1:10P Dictated by : LUZ ARMAS MD This examination was interpreted and the report reviewed and electronically signed by: LUZ ARMAS MD on Oct 17 2020 1:32PM EST Normal [facility] NIL EXIST CATH ANGIO F/U Final Report [...] PROCEDURE START TIME: 858 PROCEDURE END TIME: 1125 ATTENDING: Luz Armas MD GERIATRIC NURSE ASSISTANT (FELLOW): The procedure was performed by the attending without an assistant dean. The attending performed the following procedural activities: [...] are normal.. Bilateral SCAs are normal. Bilateral ocean rescue lieutenant are normal. The capillary and venous phases [...] exchanged for the diagnostic catheter. An 0.016 [place] SL-10 microcatheter was then manipulated into the aneurysm over a 0.014 Syncro-2 microwire. An SL-10 microcatheter advanced over the Synchro wire into the right A2 segment. A 3mm x21mm neuroform [place] stent was then deployed across the neck of the aneurysm from the right A2 to the left A1. Follow-up angiography performed. The stent delivery system was removed and follow-up angiography performed. An SL-10 microcatheter advanced over the Synchro wire into the left A2 segment. A 3mm x21mm neuroform [place] stent was then deployed across the neck of the aneurysm from the left A2 to the left A1. Follow-up angiography performed. The stent delivery system was removed and follow-up angiography performed. Coil embolization was then initiated. A total of 6 coils were detached in the aneurysm as follows: Target 360 Soft: 5xnt13vx Target 360 Soft 9jsq54gt Target 360 Soft 0vpu86qn Target 360 Soft 2syq68px Target 360 Ultra 1ryu81ud Target 360 Ultra 3ale0lc Control angiography was performed intermittently during the [...] exchanged for the diagnostic catheter. An 0.016 [place] SL-10 microcatheter was then manipulated into the aneurysm over a 0.014 Syncro-2 microwire. Coil embolization was started however the coil mass would fall out of the aneurysm. An SL-10 microcatheter advanced over the Synchro wire into the left CLINICAL INFORMATICS MANAGER segment. A 3mm x24mm neuroform [place] stent was then deployed across the neck of the aneurysm from the left CLINICAL INFORMATICS MANAGER to the basilar artery. Follow-up angiography performed. The stent delivery system was removed and follow-up angiography performed. Follow-up angiography performed. The stent delivery system was removed and follow-up angiography performed. Coil embolization was then initiated. A total of 6 coils were detached in the aneurysm as follows: Target 360 Soft: 2eek54sa Target 360 Soft 3ucg9ks Target 360 Ultra 7ebw3xz Target 360 Ultra 2.1awu7cj Target 360 Ultra 2.2epu1jf Target 360 Ultra 0itq1xh Control angiography was performed intermittently during the [...] retrograde filling of the left ALFREDA from CLINICAL INFORMATICS MANAGER collaterals. RIGHT COMMON CAROTID ARTERY INJECTION (cranial): [...] of dissection or pseudoaneurysm. IMPRESSION: 1. 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 2. 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 3. There is slow anterograde filling of the left ALFREDA post stenting with retrograde left CLINICAL INFORMATICS MANAGER collateral filling. However, no intraluminal clot is seen in stent or vessel with microcatheter evaluation. Luz Armas MD Endovascular Neuroradiology 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: [facility] Transcribe Date/Time: Oct 17 2020 1:10P Dictated by : LUZ ARMAS MD This examination was interpreted and the report reviewed and electronically signed by: LUZ ARMAS MD on Oct 17 2020 1:32PM EST Normal [facility] NIL EXIST CATH ANGIO F/U Final Report [...] END TIME: 1124 ATTENDING: Luz Armas MD GERIATRIC NURSE ASSISTANT (FELLOW): The procedure was performed by the attending without an assistant dean. The attending performed the following procedural activities: [...] are normal.. Bilateral SCAs are normal. Bilateral ocean rescue lieutenant are normal. The capillary and venous phases [...] exchanged for the diagnostic catheter. An 0.016 [place] SL-10 microcatheter was then manipulated into the aneurysm over a 0.014 Syncro-2 microwire. An SL-10 microcatheter advanced over the Synchro wire into the right A2 segment. A 3mm x21mm neuroform [place] stent was then deployed across the neck of the aneurysm from the right A2 to the left A1. Follow-up angiography performed. The stent delivery system was removed and follow-up angiography performed. An SL-10 microcatheter advanced over the Synchro wire into the left A2 segment. A 3mm x21mm neuroform [place] stent was then deployed across the neck of the aneurysm from the left A2 to the left A1. Follow-up angiography performed. The stent delivery system was removed and follow-up angiography performed. Coil embolization was then initiated. A total of 6 coils were detached in the aneurysm as follows: Target 360 Soft: 8lvb35er Target 360 Soft 6jde36hs Target 360 Soft 1ltg69th Target 360 Soft 4anl03ua Target 360 Ultra 9khf06dm Target 360 Ultra 6jdu6jr Control angiography was performed intermittently during the [...] exchanged for the diagnostic catheter. An 0.016 [place] SL-10 microcatheter was then manipulated into the aneurysm over a 0.014 Syncro-2 microwire. Coil embolization was started however the coil mass would fall out of the aneurysm. An SL-10 microcatheter advanced over the Synchro wire into the left CLINICAL INFORMATICS MANAGER segment. A 3mm x24mm neuroform [place] stent was then deployed across the neck of the aneurysm from the left CLINICAL INFORMATICS MANAGER to the basilar artery. Follow-up angiography performed. The stent delivery system was removed and follow-up angiography performed. Follow-up angiography performed. The stent delivery system was removed and follow-up angiography performed. Coil embolization was then initiated. A total of 6 coils were detached in the aneurysm as follows: Target 360 Soft: 0jbr81gd Target 360 Soft 0pft9iu Target 360 Ultra 2rjf7mg Target 360 Ultra 2.7juq5uf Target 360 Ultra 2.1eco9zk Target 360 Ultra 1tcm6pp Control angiography was performed intermittently during the [...] retrograde filling of the left ALFREDA from CLINICAL INFORMATICS MANAGER collaterals. RIGHT COMMON CAROTID ARTERY INJECTION (cranial): [...] of dissection or pseudoaneurysm. IMPRESSION: 1. 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 2. 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 3. There is slow anterograde filling of the left ALFREDA post stenting with retrograde left CLINICAL INFORMATICS MANAGER collateral filling. However, no intraluminal clot is seen in stent or vessel with microcatheter evaluation. Luz Armas MD Endovascular Neuroradiology 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: [facility] Transcribe Date/Time: Oct 17 2020 1:10P Dictated by : LUZ ARMAS MD This examination was interpreted and the report reviewed and electronically signed by: LUZ ARMAS MD on Oct 17 2020 1:32PM EST Normal [facility] NIL EXIST CATH ANGIO F/U Final Report [...] END TIME: 1124 ATTENDING: Luz Armas MD GERIATRIC NURSE ASSISTANT (FELLOW): The procedure was performed by the attending without an assistant dean. The attending performed the following procedural activities: [...] are normal.. Bilateral SCAs are normal. Bilateral ocean rescue lieutenant are normal. The capillary and venous phases [...] exchanged for the diagnostic catheter. An 0.016 [place] SL-10 microcatheter was then manipulated into the aneurysm over a 0.014 Syncro-2 microwire. An SL-10 microcatheter advanced over the Synchro wire into the right A2 segment. A 3mm x21mm neuroform [place] stent was then deployed across the neck of the aneurysm from the right A2 to the left A1. Follow-up angiography performed. The stent delivery system was removed and follow-up angiography performed. An SL-10 microcatheter advanced over the Synchro wire into the left A2 segment. A 3mm x21mm neuroform [place] stent was then deployed across the neck of the aneurysm from the left A2 to the left A1. Follow-up angiography performed. The stent delivery system was removed and follow-up angiography performed. Coil embolization was then initiated. A total of 6 coils were detached in the aneurysm as follows: Target 360 Soft: 6fwh01rk Target 360 Soft 7imf35yq Target 360 Soft 3wie98qe Target 360 Soft 4zfh86ge Target 360 Ultra 5opb46np Target 360 Ultra 0lwu7cz Control angiography was performed intermittently during the [...] exchanged for the diagnostic catheter. An 0.016 [place] SL-10 microcatheter was then manipulated into the aneurysm over a 0.014 Syncro-2 microwire. Coil embolization was started however the coil mass would fall out of the aneurysm. An SL-10 microcatheter advanced over the Synchro wire into the left CLINICAL INFORMATICS MANAGER segment. A 3mm x24mm neuroform [place] stent was then deployed across the neck of the aneurysm from the left CLINICAL INFORMATICS MANAGER to the basilar artery. Follow-up angiography performed. The stent delivery system was removed and follow-up angiography performed. Follow-up angiography performed. The stent delivery system was removed and follow-up angiography performed. Coil embolization was then initiated. A total of 6 coils were detached in the aneurysm as follows: Target 360 Soft: 1xvb57fc Target 360 Soft 2lur5en Target 360 Ultra 7vby7jw Target 360 Ultra 2.7bql9xz Target 360 Ultra 2.0rzc7dw Target 360 Ultra 5rkb5dn Control angiography was performed intermittently during the [...] retrograde filling of the left ALFREDA from CLINICAL INFORMATICS MANAGER collaterals. RIGHT COMMON CAROTID ARTERY INJECTION (cranial): [...] of dissection or pseudoaneurysm. IMPRESSION: 1. 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 2. 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 3. There is slow anterograde filling of the left ALFREDA post stenting with retrograde left CLINICAL INFORMATICS MANAGER collateral filling. However, no intraluminal clot is seen in stent or vessel with microcatheter evaluation. Luz Armas MD Endovascular Neuroradiology 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: [facility] Transcribe Date/Time: Oct 17 2020 1:10P Dictated by : LUZ ARMAS MD This examination was interpreted and the report reviewed and electronically signed by: LUZ ARMAS MD on Oct 17 2020 1:32PM EST Normal [facility] NIL INTERNAL/CEREBRAL UNIon 10-17-2020 NIL INTERNAL/CEREBRAL UNI [...] END TIME: 1124 ATTENDING: Luz Armas MD GERIATRIC NURSE ASSISTANT (FELLOW): The procedure was performed by the attending without an assistant dean. The attending performed the following procedural activities: [...] are normal.. Bilateral SCAs are normal. Bilateral ocean rescue lieutenant are normal. The capillary and venous phases [...] exchanged for the diagnostic catheter. An 0.016 [place] SL-10 microcatheter was then manipulated into the aneurysm over a 0.014 Syncro-2 microwire. An SL-10 microcatheter advanced over the Synchro wire into the right A2 segment. A 3mm x21mm neuroform [place] stent was then deployed across the neck of the aneurysm from the right A2 to the left A1. Follow-up angiography performed. The stent delivery system was removed and follow-up angiography performed. An SL-10 microcatheter advanced over the Synchro wire into the left A2 segment. A 3mm x21mm neuroform [place] stent was then deployed across the neck of the aneurysm from the left A2 to the left A1. Follow-up angiography performed. The stent delivery system was removed and follow-up angiography performed. Coil embolization was then initiated. A total of 6 coils were detached in the aneurysm as follows: Target 360 Soft: 9qbo66vf Target 360 Soft 1rwf94mn Target 360 Soft 6ahe01si Target 360 Soft 6fqy95ju Target 360 Ultra 9ieg08zl Target 360 Ultra 3zsw0rv Control angiography was performed intermittently during the [...] exchanged for the diagnostic catheter. An 0.016 [place] SL-10 microcatheter was then manipulated into the aneurysm over a 0.014 Syncro-2 microwire. Coil embolization was started however the coil mass would fall out of the aneurysm. An SL-10 microcatheter advanced over the Synchro wire into the left CLINICAL INFORMATICS MANAGER segment. A 3mm x24mm neuroform [place] stent was then deployed across the neck of the aneurysm from the left CLINICAL INFORMATICS MANAGER to the basilar artery. Follow-up angiography performed. The stent delivery system was removed and follow-up angiography performed. Follow-up angiography performed. The stent delivery system was removed and follow-up angiography performed. Coil embolization was then initiated. A total of 6 coils were detached in the aneurysm as follows: Target 360 Soft: 5xyh94ba Target 360 Soft 7ioq7lw Target 360 Ultra 4qsr1bt Target 360 Ultra 2.3vtx5cu Target 360 Ultra 2.7otx3kd Target 360 Ultra 9fji3se Control angiography was performed intermittently during the [...] retrograde filling of the left ALFREDA from CLINICAL INFORMATICS MANAGER collaterals. RIGHT COMMON CAROTID ARTERY INJECTION (cranial): [...] of dissection or pseudoaneurysm. IMPRESSION: 1. 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 2. 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 3. There is slow anterograde filling of the left ALFREDA post stenting with retrograde left CLINICAL INFORMATICS MANAGER collateral filling. However, no intraluminal clot is seen in stent or vessel with microcatheter evaluation. Luz Armas MD Endovascular Neuroradiology 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: [facility] Transcribe Date/Time: Oct 17 2020 1:10P Dictated by : LUZ ARMAS MD This examination was interpreted and the report reviewed and electronically signed by: LUZ ARMAS MD on Oct 17 2020 1:32PM EST Normal [facility] NIL TRANS CATH [place] EMBOLIZATI ONon 10-17-2020 [...] END TIME: 1124 ATTENDING: Luz Armas MD GERIATRIC NURSE ASSISTANT (FELLOW): The procedure was performed by the attending without an assistant dean. The attending performed the following procedural activities: [...] are normal.. Bilateral SCAs are normal. Bilateral ocean rescue lieutenant are normal. The capillary and venous phases [...] exchanged for the diagnostic catheter. An 0.016 [place] SL-10 microcatheter was then manipulated into the aneurysm over a 0.014 Syncro-2 microwire. An SL-10 microcatheter advanced over the Synchro wire into the right A2 segment. A 3mm x21mm neuroform [place] stent was then deployed across the neck of the aneurysm from the right A2 to the left A1. Follow-up angiography performed. The stent delivery system was removed and follow-up angiography performed. An SL-10 microcatheter advanced over the Synchro wire into the left A2 segment. A 3mm x21mm neuroform [place] stent was then deployed across the neck of the aneurysm from the left A2 to the left A1. Follow-up angiography performed. The stent delivery system was removed and follow-up angiography performed. Coil embolization was then initiated. A total of 6 coils were detached in the aneurysm as follows: Target 360 Soft: 8mjk53dk Target 360 Soft 6rfk07zh Target 360 Soft 2bzf72qw Target 360 Soft 8ute46bw Target 360 Ultra 6cul08ll Target 360 Ultra 0thr8uh Control angiography was performed intermittently during the [...] exchanged for the diagnostic catheter. An 0.016 [place] SL-10 microcatheter was then manipulated into the aneurysm over a 0.014 Syncro-2 microwire. Coil embolization was started however the coil mass would fall out of the aneurysm. An SL-10 microcatheter advanced over the Synchro wire into the left CLINICAL INFORMATICS MANAGER segment. A 3mm x24mm neuroform [place] stent was then deployed across the neck of the aneurysm from the left CLINICAL INFORMATICS MANAGER to the basilar artery. Follow-up angiography performed. The stent delivery system was removed and follow-up angiography performed. Follow-up angiography performed. The stent delivery system was removed and follow-up angiography performed. Coil embolization was then initiated. A total of 6 coils were detached in the aneurysm as follows: Target 360 Soft: 8wvt18mu Target 360 Soft 0yem1un Target 360 Ultra 2tfc7yw Target 360 Ultra 2.7ttm6aw Target 360 Ultra 2.8ewf9fs Target 360 Ultra 6ydg0jx Control angiography was performed intermittently during the [...] retrograde filling of the left ALFREDA from CLINICAL INFORMATICS MANAGER collaterals. RIGHT COMMON CAROTID ARTERY INJECTION (cranial): [...] of dissection or pseudoaneurysm. IMPRESSION: 1. 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 2. 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 3. There is slow anterograde filling of the left ALFREDA post stenting with retrograde left CLINICAL INFORMATICS MANAGER collateral filling. However, no intraluminal clot is seen in stent or vessel with microcatheter evaluation. Luz Armas MD Endovascular Neuroradiology 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 Transcribe Date/Time: Oct 17 2020 1:10P Dictated by : LUZ ARMAS MD This examination was interpreted and the report reviewed and electronically signed by: LUZ ARMAS MD on Oct 17 2020 1:32PM EST Normal [facility] NIL TRANS CATH [place] EMBOLIZATION Final Report [...] END TIME: 1124 ATTENDING: Luz Armas MD GERIATRIC NURSE ASSISTANT (FELLOW): The procedure was performed by the attending without an assistant dean. The attending performed the following procedural activities: [...] are normal.. Bilateral SCAs are normal. Bilateral ocean rescue lieutenant are normal. The capillary and venous phases [...] exchanged for the diagnostic catheter. An 0.016 [place] SL-10 microcatheter was then manipulated into the aneurysm over a 0.014 Syncro-2 microwire. An SL-10 microcatheter advanced over the Synchro wire into the right A2 segment. A 3mm x21mm neuroform [place] stent was then deployed across the neck of the aneurysm from the right A2 to the left A1. Follow-up angiography performed. The stent delivery system was removed and follow-up angiography performed. An SL-10 microcatheter advanced over the Synchro wire into the left A2 segment. A 3mm x21mm neuroform [place] stent was then deployed across the neck of the aneurysm from the left A2 to the left A1. Follow-up angiography performed. The stent delivery system was removed and follow-up angiography performed. Coil embolization was then initiated. A total of 6 coils were detached in the aneurysm as follows: Target 360 Soft: [id number] Target 360 Soft 0vhe20dk Target 360 Soft 1fza57il Target 360 Soft 2nzo62hi Target 360 Ultra 7fda58qh Target 360 Ultra 4yld9ba Control angiography was performed intermittently during the [...] exchanged for the diagnostic catheter. An 0.016 [place] SL-10 microcatheter was then manipulated into the aneurysm over a 0.014 Syncro-2 microwire. Coil embolization was started however the coil mass would fall out of the aneurysm. An SL-10 microcatheter advanced over the Synchro wire into the left CLINICAL INFORMATICS MANAGER segment. A 3mm x24mm neuroform [place] stent was then deployed across the neck of the aneurysm from the left CLINICAL INFORMATICS MANAGER to the basilar artery. Follow-up angiography performed. The stent delivery system was removed and follow-up angiography performed. Follow-up angiography performed. The stent delivery system was removed and follow-up angiography performed. Coil embolization was then initiated. A total of 6 coils were detached in the aneurysm as follows: Target 360 Soft: 3xde50qf Target 360 Soft 0zba6hi Target 360 Ultra 2mca7fb Target 360 Ultra 2.2yjt3ra Target 360 Ultra 2.0xqq6cj Target 360 Ultra 1plf7dk Control angiography was performed intermittently during the [...] There is retrograde filling of the left LAFREDA from CLINICAL INFORMATICS MANAGER collaterals. RIGHT COMMON CAROTID ARTERY INJECTION (cranial): [...] of dissection or pseudoaneurysm. IMPRESSION: 1. 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 2. 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 3. There is slow anterograde filling of the left ALFREDA post stenting with retrograde left CLINICAL INFORMATICS MANAGER collateral filling. However, no intraluminal clot is seen in stent or vessel with microcatheter evaluation. Luz Armas MD Endovascular Neuroradiology 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: [facility] Transcribe Date/Time: Oct 17 2020 1:10P Dictated by : LUZ ARMAS MD This examination was interpreted and the report reviewed and electronically signed by: LUZ ARMAS MD on Oct 17 2020 1:32PM EST Normal [facility] NIL VERT UNIon 10-17-2020 NIL VERT UNI Final Report DATE OF EXAM: Oct 17 2020 11:37AM A6A 1026 - NIL VERT UNI - LEFT / PROCEDURE REASON: [employer]COMM, [...] END TIME: 1124 ATTENDING: Luz Armas MD GERIATRIC NURSE ASSISTANT (FELLOW): The procedure was performed by the attending without an assistant dean. The attending performed the following procedural activities: [...] are normal.. Bilateral SCAs are normal. Bilateral ocean rescue lieutenant are normal. The capillary and venous phases [...] exchanged for the diagnostic catheter. An 0.016 [place] SL-10 microcatheter was then manipulated into the aneurysm over a 0.014 Syncro-2 microwire. An SL-10 microcatheter advanced over the Synchro wire into the right A2 segment. A 3mm x21mm neuroform [place] stent was then deployed across the neck of the aneurysm from the right A2 to the left A1. Follow-up angiography performed. The stent delivery system was removed and follow-up angiography performed. An SL-10 microcatheter advanced over the Synchro wire into the left A2 segment. A 3mm x21mm neuroform [place] stent was then deployed across the neck of the aneurysm from the left A2 to the left A1. Follow-up angiography performed. The stent delivery system was removed and follow-up angiography performed. Coil embolization was then initiated. A total of 6 coils were detached in the aneurysm as follows: Target 360 Soft: 9dmm46yy Target 360 Soft 7pfm40cb Target 360 Soft 6uyt45ix Target 360 Soft 6tlj41mi Target 360 Ultra 2gzr54hg Target 360 Ultra 9fdt9ao Control angiography was performed intermittently during the [...] exchanged for the diagnostic catheter. An 0.016 [place] SL-10 microcatheter was then manipulated into the aneurysm over a 0.014 Syncro-2 microwire. Coil embolization was started however the coil mass would fall out of the aneurysm. An SL-10 microcatheter advanced over the Synchro wire into the left CLINICAL INFORMATICS MANAGER segment. A 3mm x24mm neuroform [place] stent was then deployed across the neck of the aneurysm from the left CLINICAL INFORMATICS MANAGER to the basilar artery. Follow-up angiography performed. The stent delivery system was removed and follow-up angiography performed. Follow-up angiography performed. The stent delivery system was removed and follow-up angiography performed. Coil embolization was then initiated. A total of 6 coils were detached in the aneurysm as follows: Target 360 Soft: [id number] Target 360 Soft 6wxe5ut Target 360 Ultra 6pge0zv Target 360 Ultra 2.1kfx1mo Target 360 Ultra 2.4vmd1mb Target 360 Ultra 6crt3kp Control angiography was performed intermittently during the [...] retrograde filling of the left ALFREDA from CLINICAL INFORMATICS MANAGER collaterals. RIGHT COMMON CAROTID ARTERY INJECTION (cranial): [...] of dissection or pseudoaneurysm. IMPRESSION: 1. 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 2. 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 3. There is slow anterograde filling of the left ALFREDA post stenting with retrograde left CLINICAL INFORMATICS MANAGER collateral filling. However, no intraluminal clot is seen in stent or vessel with microcatheter evaluation. Luz Armas MD Endovascular Neuroradiology 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: [facility] Transcribe Date/Time: Oct 17 2020 1:10P Dictated by : LUZ ARMAS MD This examination was interpreted and the report reviewed and electronically signed by: LUZ ARMAS MD on Oct 17 2020 1:32PM EST Normal [facility] Renal function 2000 panelon 10-17-2020 Albumin [Mass/Vol] 4.2 g/dL Normal 3.9-4.9 [facility] Comment on above: Order Comment: Speci men Type: BLOOD SPECIMEN Performed By: #### 2 4362-6 ####[facility] LABORATORYCLIA [id number] [place] [address] Anion gap [Moles/Vol] 8 mmol/L Low 9-18 [facility] Comment on above: Order Comment: Speci men Type: BLOOD SPECIMEN Performed By: #### 2 4362-6 ####[facility] LABORATORYCLIA [id number] [place] [address] Calcium [Mass/Vol] 9.6 mg/dL Normal 8.5-10.2 [facility] Comment on above: Order Comment: Speci men Type: BLOOD SPECIMEN Performed By: #### 2 4362-6 ####[facility] LABORATORYCLIA [id number] [place] [address] Chloride [Moles/Vol] 104 mmol/L Normal 97-105 [facility] Comment on above: Order Comment: Speci men Type: BLOOD SPECIMEN Performed By: #### 2 4362-6 ####[facility] LABORATORYCLIA [id number] [place] [address] CO2 [Moles/Vol] 23 mmol/L Normal 22-30 [facility] Comment on above: Order Comment: Speci men Type: BLOOD SPECIMEN Performed By: #### 2 4362-6 ####[facility] LABORATORYCLIA [id number] [place] [address] Creatinine [Mass/Vol] 0.87 mg/dL Normal 0.58-0.96 [facility] Comment on above: Order Comment: Speci men Type: BLOOD SPECIMEN Performed By: #### 2 4362-6 ####[facility] LABORATORYCLIA [id number] [place] [address] GFR/1.73 sq M.predicted MDRD (S/P/Bld) [Vol rate/Area] mL/min/{1.73_m2} Normal [facility] Comment on above: Order Comment: Speci [...] actual GFR. Performed By: #### 2 4362-6 ####[facility] LABORATORYCLIA [id number] [place] [address] Glucose [Mass/Vol] 94 mg/dL Normal 74-99 [facility] Comment on above: Order Comment: Speci men Type: BLOOD SPECIMEN Result Comment: The [place] Diabetes Association (ADA) provides guidance for cutoff [...] Standards of Medical Care in Diabetes 2016, [place] Diabetes Association. Diabetes Care. 2016.39(Suppl 1). Performed By: #### 2 4362-6 ####[facility] LABORATORYCLIA [id number] [place] [address] Phosphate [Mass/Vol] 5.2 mg/dL High 2.7-4.8 [facility] Comment on above: Order Comment: Speci men Type: BLOOD SPECIMEN Performed By: #### 2 4362-6 ####[facility] LABORATORYCLIA [id number] [place] [address] Potassium [Moles/Vol] Normal [facility] Comment on above: Order Comment: Speci men Type: BLOOD SPECIMEN Result Comment: Unab le to assay. Specimen Hemolyzed. Performed By: #### 2 4362-6 ####[facility]ORATORYCLIA [id number] [place] [address] Sodium [Moles/Vol] 135 mmol/L Low 136-144 [facility] Comment on above: Order Comment: Speci men Type: BLOOD SPECIMEN Performed By: #### 2 4362-6 ####[facility] LABORATORYCLIA [id number] [place] [address] Urea nitrogen [Mass/Vol] 14 mg/dL Normal 7-21 [facility] Comment on above: Order Comment: Speci men Type: BLOOD SPECIMEN Performed By: #### 2 4362-6 ####[facility] LABORATORYCLIA [id number] [place] [address] THERAPY NTon 10-17-2020 THERAPY NT Normal [facility] aPTT PPPon 10-17-2020 aPTT Coag (PPP) [Time] 62.6 s High 23.0-32.4 [facility] Comment on above: Order Comment: Speci men Type: BLOOD SPECIMEN Performed By: #### 1 4979-9 ####[facility] LABORATORYCLIA [id number] [place] [address] aPTT Coag (PPP) [Time] 38.4 s High 23.0-32.4 [facility] Comment on above: Order Comment: Speci men Type: BLOOD SPECIMEN Performed By: #### 1 4979-9 ####[facility]ORATORYCLIA [id number] [place] [address] CBC panel Auto (Bld)on 10-16 Erythrocyte distribution width (RBC) [Ratio] 13.5 % Normal 11.5-15.0 [facility] Comment on above: Order Comment: Speci men Type: BLOOD SPECIMEN Performed By: #### 5 8410-2 ####[facility] LABORATORYCLIA [id number] [place] [address] Hematocrit (Bld) [Volume fraction] 38.8 % Normal 36.0-46.0 [facility] Comment on above: Order Comment: Speci men Type: BLOOD SPECIMEN Performed By: #### 5 8410-2 ####[facility] LABORATORYCLIA [id number] [place] [address] Hemoglobin (Bld) [Mass/Vol] 12.9 g/dL Normal 11.5-15.5 [facility] Comment on above: Order Comment: Speci men Type: BLOOD SPECIMEN Performed By: #### 5 8410-2 ####[facility] LABORATORYCLIA [id number] [place] [address] MCH (RBC) [Entitic mass] 32.7 pg Normal 26.0-34.0 [facility] Comment on above: Order Comment: Speci men Type: BLOOD SPECIMEN Performed By: #### 5 8410-2 ####[facility] LABORATORYCLIA [id number] [place] [address] MCHC (RBC) [Mass/Vol] 33.2 g/dL Normal 30.5-36.0 [facility] Comment on above: Order Comment: Speci men Type: BLOOD SPECIMEN Performed By: #### 5 8410-2 ####[facility] LABORATORYCLIA [id number] [place] [address] MCV (RBC) [Entitic vol] 98.2 fL Normal 80.0-100.0 [facility] Comment on above: Order Comment: Speci men Type: BLOOD SPECIMEN Performed By: #### 5 8410-2 ####[facility] LABORATORYCLIA [id number] [place] [address] Nucleated RBC (Bld) [#/Vol] 10*3/uL Normal <0.01 [facility] Comment on above: Order Comment: Speci men Type: BLOOD SPECIMEN Performed By: #### 5 8410-2 ####[facility] LABORATORYCLIA [id number] [place] [address] Platelet mean volume (Bld) [Entitic vol] 10.4 fL Normal 9.0-12.7 [facility] Comment on above: Order Comment: Speci men Type: BLOOD SPECIMEN Performed By: #### 5 8410-2 ####[facility] LABORATORYCLIA [id number] [place] [address] Platelets (Bld) [#/Vol] 207 10*3/uL Normal 150-400 [facility] Comment on above: Order Comment: Speci men Type: BLOOD SPECIMEN Performed By: #### 5 8410-2 ####[facility] LABORATORYCLIA [id number] [place] [address] RBC (Bld) [#/Vol] 3.95 10*6/uL Normal 3.90-5.20 [facility] Comment on above: Order Comment: Speci men Type: BLOOD SPECIMEN Performed By: #### 5 8410-2 ####[facility] LABORATORYCLIA [id number] [place] [address] WBC (Bld) [#/Vol] 5.10 10*3/uL Normal 3.70-11.00 [facility] Comment on above: Order Comment: Speci men Type: BLOOD SPECIMEN Performed By: #### 5 8410-2 ####[facility] LABORATORYCLIA [id number] [place] [address] CONSULT PROGon 10-16-2020 CONSULT PROG Normal [facility] NURSING PROGon 10-16-2020 NURSING PROG Normal [facility] Renal function 2000 panelon 10-16-2020 Albumin [Mass/Vol] 4.0 g/dL Normal 3.9-4.9 [facility] Comment on above: Order Comment: Speci men Type: BLOOD SPECIMEN Performed By: #### 2 4362-6 ####[facility]ORATORYCLIA [id number] [place] [address] Anion gap [Moles/Vol] 10 mmol/L Normal 9-18 [facility] Comment on above: Order Comment: Speci men Type: BLOOD SPECIMEN Performed By: #### 2 4362-6 ####[facility]ORATORYCLIA [id number] [place] [address] Calcium [Mass/Vol] 9.6 mg/dL Normal 8.5-10.2 [facility] Comment on above: Order Comment: Speci men Type: BLOOD SPECIMEN Performed By: #### 2 4362-6 ####[facility]ORATORYCLIA [id number] [place] [address] Chloride [Moles/Vol] 105 mmol/L Normal 97-105 [facility] Comment on above: Order Comment: Speci men Type: BLOOD SPECIMEN Performed By: #### 2 4362-6 ####[facility]ORATORYCLIA [id number] [place] [address] CO2 [Moles/Vol] 23 mmol/L Normal 22-30 [facility] Comment on above: Order Comment: Speci men Type: BLOOD SPECIMEN Performed By: #### 2 4362-6 ####[facility]ORATORYCLIA [id number] [place] [address] Creatinine [Mass/Vol] 0.91 mg/dL Normal 0.58-0.96 [facility] Comment on above: Order Comment: Speci men Type: BLOOD SPECIMEN Performed By: #### 2 4362-6 ####[facility]ORATORYCLIA [id number] [place] [address] GFR/1.73 sq M.predicted MDRD (S/P/Bld) [Vol rate/Area] mL/min/{1.73_m2} Normal [facility] Comment on above: Order Comment: Speci [...] actual GFR. Performed By: #### 2 4362-6 ####[facility] LABORATORYCLIA [id number] [place] [address] Glucose [Mass/Vol] 102 mg/dL High 74-99 [facility] Comment on above: Order Comment: Speci [facility] Type: BLOOD SPECIMEN Result Comment: The [place] Diabetes Association (ADA) provides guidance for cutoff [...] Standards of Medical Care in Diabetes 2016, [place] [employer]. Diabetes Care. 2016.39(Suppl 1). Performed By: #### 2 4362-6 ####[facility] LABORATORYCLIA [id number] [place] [address] Phosphate [Mass/Vol] 4.6 mg/dL Normal 2.7-4.8 [facility] Comment on above: Order Comment: [facility] Type: BLOOD SPECIMEN Performed By: #### 2 4362-6 ####[facility] LABORATORYCLIA [id number] [place] [address] Potassium [Moles/Vol] 4.3 mmol/L Normal 3.7-5.1 [facility] Comment on above: Order Comment: Speci men Type: BLOOD SPECIMEN Performed By: #### 2 4362-6 ####[facility] LABORATORYCLIA [id number] [place] [address] Sodium [Moles/Vol] 138 mmol/L Normal 136-144 [facility] Comment on above: Order Comment: Speci men Type: BLOOD SPECIMEN Performed By: #### 2 4362-6 ####[facility] LABORATORYCLIA [id number] [place] [address] Urea nitrogen [Mass/Vol] 12 mg/dL Normal 7-21 [facility] Comment on above: Order Comment: Speci men Type: BLOOD SPECIMEN Performed By: #### 2 4362-6 ####[facility] LABORATORYCLIA [id number] [place] [address] THERAPY NTon 10-16-2020 THERAPY NT Normal [facility] THERAPY NT Normal [facility] Vancomycin random [Mass/Vol] on 10-16-2020 Vancomycin [Mass/Vol] 18.7 ug/mL Normal 10.0-20.0 [facility] Comment on above: Order Comment: Speci men Type: BLOOD SPECIMEN Result Comment: Refe rence ranges and high/low indicator flags are provided as general guidelines only. The treating physician must determine appropriate target levels/dosing based on the specific clinical situation. Performed By: #### 4 091-5 ####[facility] LABORATORYCLIA [id number] [place] [address] aPTT PPPon 10-16-2020 aPTT Coag (PPP) [Time] 61.2 s High 23.0-32.4 [facility] Comment on above: Order Comment: Speci men Type: BLOOD SPECIMEN Performed By: #### 1 4979-9 ####[facility]ORATORYCLIA [id number] [place] [address] aPTT Coag (PPP) [Time] 75.3 s High 23.0-32.4 [facility] Comment on above: Order Comment: Speci [facility] Type: BLOOD SPECIMEN Performed By: #### 1 4979-9 ####[facility] LABORATORYCLIA [id number] [place] [address] ALLIED HEALTHon 10-15-2020 ALLIED HEALTH Normal [facility] ASPIRIN/CLOPIDOGREL RESISTAN CEon 10-15-2020 INTERPRETATION(ASPIRI N/CLOPIDOGREL RESISTANCE) (NOTE) Normal [facility] Comment on above: Order Comment: [facility] Type: BLOOD SPECIMEN Result Comment: Perf orming [...] 70percent. These parameters were developed at the [facility] utilizing the assay and reagents performed on thispatient's platelets. Silvia CLAUDIO. Jess CLAUDIO. Thien ROWLAND. A prospective, blinded determination of the natural historyof aspirin resistance among stable patients with cardiovasculardisease. Journal of the [place] [employer]. 41(6):961-5,2003. There is a decrease in ADP-induced platelet [...] and medicationhistory. Performed By: #### A SPCLP ####[facility] LAB REFERENCE LABCLIA [id number] [place] [address] Platelet aggregation ADP induced High dose (PRP) [Rel units/Vol] 9 % Max Low 65-93 [facility] Comment on above: Order Comment: Speci [facility] Type: BLOOD SPECIMEN Result Comment: Prel iminary results given to [facility] at 1135 on 10.16.20.SJ. Performed By: #### A SPCLP ####[facility] LAB REFERENCE LABCLIA [id number] [place] [address] Platelet aggregation arachidonate induced 500 ug/mL (PRP) [Rel units/Vol] 25 % Max Low 75-100 [facility] Comment on above: Order Comment: Speci men Type: BLOOD SPECIMEN Result Comment: Prel iminary results given to [facility] at 1135 on 10.16.20.SJ. Performed By: #### A SPCLP ####[facility] LAB REFERENCE LABCLIA [id number] [place] [address] BLOOD TB SCREEN, INCUBATEDon 10-15-2020 M. tuberculosis tuberculin stim IFN-g Ql (Bld) Negative Normal NEGAT [facility] Comment on above: Order Comment: Speci men Type: BLOOD SPECIMEN Performed By: #### I NTPGP ####[facility] LAB REFERENCE LABCLIA [id number] [place] [address] MITOGEN MINUS NIL >10.00 Normal [facility] Comment on above: Order Comment: Speci men Type: BLOOD SPECIMEN Performed By: #### I NTPGP ####[facility] LAB REFERENCE LABCLIA [id number] [place] [address] TB INTERPRETATION No evidence of curre nt or previous infection with Mycobacterium tuberculosis. Normal [facility] Comment on above: Order Comment: Speci men Type: BLOOD SPECIMEN Performed By: #### I NTPGP ####[facility] LAB REFERENCE LABCLIA [id number] [place] [address] TB NIL 0.02 IU/mL Normal [facility] Comment on above: Order Comment: Speci men Type: BLOOD SPECIMEN Performed By: #### I NTPGP ####[facility] LAB REFERENCE LABCLIA [id number] [place] [address] TB1 AG MINUS NIL 0.01 IU/mL Normal <0.35 [facility] Comment on above: Order Comment: Speci men Type: BLOOD SPECIMEN Performed By: #### I NTPGP ####[facility] LAB REFERENCE LABCLIA [id number] [place] [address] TB2 AG MINUS NIL 0.01 IU/mL Normal <0.35 [facility] Comment on above: Order Comment: Speci men Type: BLOOD SPECIMEN Performed By: #### I NTPGP ####[facility] LAB REFERENCE LABCLIA [id number] [place] [address] CASE MANAGEMon 10-15-2020 CASE MANAGEM Normal [facility] CBC panel Auto (Bld)on 10-15 Erythrocyte distribution width (RBC) [Ratio] 13.5 % Normal 11.5-15.0 [facility] Comment on above: Order Comment: Speci men Type: BLOOD SPECIMEN Performed By: #### 5 8410-2 ####[facility] LABORATORYCLIA [id number] [place] [address] Hematocrit (Bld) [Volume fraction] 39.1 % Normal 36.0-46.0 [facility] Comment on above: Order Comment: Speci men Type: BLOOD SPECIMEN Performed By: #### 5 8410-2 ####[facility] LABORATORYCLIA [id number] [place] [address] Hemoglobin (Bld) [Mass/Vol] 13.1 g/dL Normal 11.5-15.5 [facility] Comment on above: Order Comment: Speci men Type: BLOOD SPECIMEN Performed By: #### 5 8410-2 ####[facility] LABORATORYCLIA [id number] [place] [address] MCH (RBC) [Entitic mass] 32.9 pg Normal 26.0-34.0 [facility] Comment on above: Order Comment: Speci men Type: BLOOD SPECIMEN Performed By: #### 5 8410-2 ####[facility] LABORATORYCLIA [id number] [place] [address] MCHC (RBC) [Mass/Vol] 33.5 g/dL Normal 30.5-36.0 [facility] Comment on above: Order Comment: Speci men Type: BLOOD SPECIMEN Performed By: #### 5 8410-2 ####[facility] LABORATORYCLIA [id number] [place] [address] MCV (RBC) [Entitic vol] 98.2 fL Normal 80.0-100.0 [facility] Comment on above: Order Comment: Speci men Type: BLOOD SPECIMEN Performed By: #### 5 8410-2 ####[facility] LABORATORYCLIA [id number] [place] [address] Nucleated RBC (Bld) [#/Vol] 10*3/uL Normal <0.01 [facility] Comment on above: Order Comment: Speci men Type: BLOOD SPECIMEN Performed By: #### 5 8410-2 ####[facility] LABORATORYCLIA [id number] [place] [address] Platelet mean volume (Bld) [Entitic vol] 10.3 fL Normal 9.0-12.7 [facility] Comment on above: Order Comment: Speci men Type: BLOOD SPECIMEN Performed By: #### 5 8410-2 ####[facility] LABORATORYCLIA [id number] [place] [address] Platelets (Bld) [#/Vol] 218 10*3/uL Normal 150-400 [facility] Comment on above: Order Comment: Speci men Type: BLOOD SPECIMEN Performed By: #### 5 8410-2 ####[facility] LABORATORYCLIA [id number] [place] [address] RBC (Bld) [#/Vol] 3.98 10*6/uL Normal 3.90-5.20 [facility] Comment on above: Order Comment: Speci men Type: BLOOD SPECIMEN Performed By: #### 5 8410-2 ####[facility] LABORATORYCLIA [id number] [place] [address] WBC (Bld) [#/Vol] 7.10 10*3/uL Normal 3.70-11.00 [facility] Comment on above: Order Comment: Speci men Type: BLOOD SPECIMEN Performed By: #### 5 8410-2 ####[facility] LABORATORYCLIA [id number] [place] [address] CONSULT PROGon 10-15-2020 CONSULT PROG Normal [facility] CREATININE BLDon 10-15-2020 Creatinine [Mass/Vol] 0.97 mg/dL High 0.58-0.96 [facility] Comment on above: Order Comment: Speci men Type: BLOOD SPECIMEN Performed By: #### C RET1 ####[facility] [id number] [place] [address] GFR/1.73 sq M.predicted MDRD (S/P/Bld) [Vol rate/Area] mL/min/{1.73_m2} Normal [facility] Comment on above: Order Comment: Speci [...] actual GFR. Performed By: #### C RET1 ####[facility] LABORATORYIA [id number] [place] [address] CT ABD/PEL W IVCONon 021 CT ABD/PEL W IVCON Final Report DATE OF EXAM: Oct 15 2020 9:08AM [facility] 0530 - CT ABD/PEL W [...] of the thoracolumbar spine. Soft tissues: Unremarkable Shingle Bolt Cutter (topogram) images: No additional findings. IMPRESSION: No [...] evidence of pseudoaneurysm or active contrast extravasation. 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 Soft tissues: Unremarkable Shingle Bolt Cutter (topogram) images: No additional findings. IMPRESSION: No [...] evidence of pseudoaneurysm or active contrast extravasation. 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 Negative 31-59 pg/mL .......................... Negative 60-79 pg/mL .......................... Indeterminate Greater than or equal to 80 pg/mL .... PositiveThe Fungitell test is indicated for presumptive diagnosisof fungal infection and should be used in conjunction withother diagnostic procedures. This test does not detectcertain fungal species such as Cryptococcus, which producevery low levels of (1,3)-swqh-T-kqeqfd. This test will notdetect the zygomycetes, such as Absidia, Mucor, andRhizopus, which are not known to produce(1,3)-iati-M-trgjsq. In addition, the yeast phase ofBlastomyces dermatitidis produces little(1,3)-ktix-E-vyvqxr and may not be detected by the assay.Performed By: [facility] [place] [id number] Director: Latosha Davila MD Performed By: #### B DGLUC ####[facility] LAB REFERENCE LABCLIA [id number] [place] [address] FUNGITELL COMMENTS 78 pg/mL Normal [facility] Comment on above: Performed By: #### B DGLUC ####[facility] LAB REFERENCE LABCLIA [id number] [place] [address] HISTOPLASMA AG URINEon 10-15 H. capsulatum Ag (U) [Mass/Vol] Detected Normal [place] [facility] Comment on above: Order Comment: Speci men Type: URINE SPECIMEN Result Comment: (NOT E)Reference interval: None DetectedResults reported as ng/mL in 0.4 - 19.0 ng/mL range.Results above the limit of detection but below 0.4 ng/mL are reportedas 'Positive, Below the Limit of Quantification'.Results above 19.0 ng/mL are reported as 'Positive, Above the Limitof Quantification'.This test was developed and its performance characteristicsdetermined by [facility]. It has not been cleared orapproved by the FDA; however, FDA clearance or approval is notcurrently required for clinical use. The results are not intended dianna used as the sole means for clinical diagnosis or patientmanagement decisions.Test performed by [facility], [address] [place] [address] [place] [facility] Performed By: #### U HISTO ####[facility] LAB REFERENCE LABCLIA [id number] [place] [address] NURSING PROGon 10-15-2020 NURSING PROG Normal [facility] NURSING PROG Normal [facility] NURSING PROG Normal [facility] NURSING PROG Normal [facility] NURSING PROG Normal [facility] NURSING PROG Normal [facility] THERAPY NTon 10-15-2020 THERAPY NT Normal [facility] THERAPY NT Normal [facility] THERAPY NT Normal [facility] aPTT PPPon 10-15-2020 aPTT Coag (PPP) [Time] 62.9 s High 23.0-32.4 [facility] Comment on above: Order Comment: Speci men Type: BLOOD SPECIMEN Performed By: #### 1 4979-9 ####[facility] LABORATORYCLIA [id number] [place] [address] aPTT Coag (PPP) [Time] 55.3 s High 23.0-32.4 [facility] Comment on above: Order Comment: Speci men Type: BLOOD SPECIMEN Performed By: #### 1 4979-9 ####[facility]ORATORYCLIA [id number] [place] [address] ASPERGILLUS GALACTOMANNAN SE RUMon 10-14-2020 Galactomannan Ag IA Ql Negative Normal NEGAT [facility] Comment on above: Order Comment: Speci [...] is suspected. Performed By: #### A SGALS ####[facility] LAB REFERENCE LABCLIA [id number] [place] [address] Galactomannan Ag IA Qn <0.50 Normal [facility] Comment on above: Order Comment: Speci men Type: BLOOD SPECIMEN Result Comment: Inde x Values are Interpreted as Follows:Negative specimens <0.50Positive specimens >=0.50 Performed By: #### A SGALS ####[facility] LAB REFERENCE LABCLIA [id number] [place] [address] BLASTOMYCES AB CFon 10-15-19 21 B. dermatitidis Ab CF (S) [Titer] See Comment Abnormal DLT8 [facility] Comment on above: Order Comment: Speci men Type: BLOOD SPECIMEN Result Comment: The Blastomyces Antibody by EIA, SER result is 0.2 IV INTERPRETIVE INFORMATION: BLASTOMYCES ANTIBODY by EIA, SER The reference interval of [facility] is less than or equal to 0.9 IV 0.9 IV or less is Negative 1.0 to 1.4 IV is Equivocal 1.5 IV or greater is Postive Disregard [facility] reference range. Interpret the result using the reference range provided by the performing laboratory. Test performed by: [facility], [place], [place]. Performed By: #### B LSCF, HISTCF ####[facility] LAB REFERENCE LABCLIA [id number] [place] [address] CBC panel Auto (Bld)on 10-14 Erythrocyte distribution width (RBC) [Ratio] 13.8 % Normal 11.5-15.0 [facility] Comment on above: Order Comment: Speci men Type: BLOOD SPECIMEN Performed By: #### 5 8410-2 ####[facility] LABORATORYCLIA [id number] [place] [address] Hematocrit (Bld) [Volume fraction] 37.9 % Normal 36.0-46.0 [facility] Comment on above: Order Comment: Speci men Type: BLOOD SPECIMEN Performed By: #### 5 8410-2 ####[facility] LABORATORYCLIA [id number] [place] [address] Hemoglobin (Bld) [Mass/Vol] 12.8 g/dL Normal 11.5-15.5 [facility] Comment on above: Order Comment: Speci men Type: BLOOD SPECIMEN Performed By: #### 5 8410-2 ####[facility] LABORATORYCLIA [id number] [place] [address] MCH (RBC) [Entitic mass] 32.7 pg Normal 26.0-34.0 [facility] Comment on above: Order Comment: Speci men Type: BLOOD SPECIMEN Performed By: #### 5 8410-2 ####[facility] LABORATORYCLIA [id number] [place] [address] MCHC (RBC) [Mass/Vol] 33.8 g/dL Normal 30.5-36.0 [facility] Comment on above: Order Comment: Speci men Type: BLOOD SPECIMEN Performed By: #### 5 8410-2 ####[facility] LABORATORYCLIA [id number] [place] [address] MCV (RBC) [Entitic vol] 96.9 fL Normal 80.0-100.0 [facility] Comment on above: Order Comment: Speci men Type: BLOOD SPECIMEN Performed By: #### 5 8410-2 ####[facility] LABORATORYCLIA [id number] [place] [address] Nucleated RBC (Bld) [#/Vol] 10*3/uL Normal <0.01 [facility] Comment on above: Order Comment: Speci men Type: BLOOD SPECIMEN Performed By: #### 5 8410-2 ####[facility]ORATORYCLIA [id number] [place] [address] Platelet mean volume (Bld) [Entitic vol] 9.7 fL Normal 9.0-12.7 [facility] Comment on above: Order Comment: Speci men Type: BLOOD SPECIMEN Performed By: #### 5 8410-2 ####[facility] LABORATORYCLIA [id number] [place] [address] Platelets (Bld) [#/Vol] 197 10*3/uL Normal 150-400 [facility] Comment on above: Order Comment: Speci men Type: BLOOD SPECIMEN Performed By: #### 5 8410-2 ####[facility]ORATORYCLIA [id number] [place] [address] RBC (Bld) [#/Vol] 3.91 10*6/uL Normal 3.90-5.20 [facility] Comment on above: Order Comment: Speci men Type: BLOOD SPECIMEN Performed By: #### 5 8410-2 ####[facility]ORATORYCLIA [id number] [place] [address] WBC (Bld) [#/Vol] 7.36 10*3/uL Normal 3.70-11.00 [facility] Comment on above: Order Comment: Speci men Type: BLOOD SPECIMEN Performed By: #### 5 8410-2 ####[facility] LABORATORYCLIA [id number] [place] [address] CONSULT PROGon 10-14-2020 CONSULT PROG Normal [facility] CONSULT PROG Normal [facility] CONSULT PROG Normal [facility] CRP SerPl-mCncon 10-14-2020 CRP [Mass/Vol] 0.6 mg/dL Normal <0.9 [facility] Comment on above: Order Comment: Speci men Type: BLOOD SPECIMEN Performed By: #### 1 988-5 ####[facility] LABORATORYCLIA [id number] [place] [address] ESR Westergren method (Bld) [Velocity]on 10-14-2020 ESR (Bld) [Velocity] 9 mm/h Normal 0-20 [facility] Comment on above: Order Comment: Speci men Type: BLOOD SPECIMEN Performed By: #### 4 537-7 ####[facility]ORATORYCLIA [id number] [place] [address] FUNGAL BATTERY IDon 10-15-19 21 Aspergillus sp Ab Immune diff Ql (S) Negative Normal [facility] Comment on above: Order Comment: Speci men Type: BLOOD SPECIMEN Performed By: #### F UNID ####[facility] LAB REFERENCE LABCLIA [id number] [place] [address] B. dermatitidis Ab Immune diff Ql (S) Negative Normal [facility] Comment on above: Order Comment: Speci men Type: BLOOD SPECIMEN Performed By: #### F UNID ####[facility] LAB REFERENCE LABCLIA [id number] [place] [address] Coccidioides sp Ab Immune diff Ql (S) Negative Normal [facility] Comment on above: Order Comment: Speci men Type: BLOOD SPECIMEN Performed By: #### F UNID ####[facility] LAB REFERENCE LABCLIA [id number] [place] [address] H. capsulatum Ab Immune diff Ql (S) Negative Normal [facility] Comment on above: Order Comment: Speci men Type: BLOOD SPECIMEN Performed By: #### F UNID ####[facility] LAB REFERENCE LABCLIA [id number] [place] [address] FUNGAL HISTO BL CULTon 10-14 FUNGAL HISTO BL CULT CULTURE, FUNGAL: No Fungus isolated after 28 days [facility] Comment on above: Performed By: #### H ISTCL ####[facility] LABORATORYCLIA [id number] [place] [address] HISTOPLASMA AB CFon 10-15-19 21 H. capsulatum mycelial phase Ab CF (S) [Titer] See Comment Abnormal DLT8 [facility] Comment on above: Order Comment: Speci men Type: BLOOD SPECIMEN Result Comment: The Histoplasma Mycelia, CF result is <1:8. The reference interval of [facility] is less than 1 to 8. Disregard [facility] reference range. Interpret the result using the reference range provided by the performing laboratory. Test performed by: [facility], [place], [place]. Performed By: #### B LSCF, HISTCF ####[facility] LAB REFERENCE LABCLIA [id number] [place] [address] H. capsulatum yeast phase Ab CF (S) [Titer] See Comment Abnormal [address] Comment on above: Order Comment: Speci men Type: BLOOD SPECIMEN Result Comment: The Histoplasma Yeast, CF result is <1:8 The reference interval of [facility] is less than 1 to 8. Interpretive [...] 17 to 20 percent of cases. Disregard [facility] reference range. Interpret the result using the reference range provided by the performing laboratory. Test performed by: [facility], [place], [place]. Performed By: #### B LSCF, HISTCF ####[facility] LAB REFERENCE LABCLIA [id number] [place] [address] HIV 1+2 Ab IA Qlon 1 HIV 1 and 2 Ab IA.rapid Nom Normal [facility] Comment on above: Order Comment: Speci men Type: BLOOD SPECIMEN Result Comment: Test not indicated. Performed By: #### 3 1201-7 ####[facility] LABORATORYCLIA [id number] [place] [address] HIV 1+2 Ab+HIV1 p24 Ag IA Ql Non-Reactive Normal Nonreactive [facility] Comment on above: Order Comment: Speci men Type: BLOOD SPECIMEN Result Comment: [place] Rev. Code 3701.243(E): This information has been [...] or diagnoses. Performed By: #### 3 1201-7 ####[facility] LABORATORYCLIA [id number] [place] [address] HIVINT Normal [facility] Comment on above: Order Comment: Speci men Type: BLOOD SPECIMEN Result Comment: No e vidence of HIV-1 or HIV-2 infection. Should recent infection be suspected, repeat testing may be considered 2-3 weeks after this draw. Performed By: #### 3 1201-7 ####[facility] LABORATORYCLIA [id number] [place] [address] MYCOPLASMA PNEUM IGGon 10-14 M PNEUMONIAE IGG, QUAL Positive Abnormal NEGAT [facility] Comment on above: Order Comment: Speci men Type: BLOOD SPECIMEN Result Comment: IgG antibodies specific to M. pneumoniae were detected. A reactive test result indicates a past/present infection. Performed By: #### W HIPWB, MYCOG ####[facility] LAB REFERENCE LABCLIA [id number] [place] [address] M. pneumoniae IgG IA Qn (S) 1.21 OD Normal [facility] Comment on above: Order Comment: Speci men Type: BLOOD SPECIMEN Result Comment: Inde x Values/OD Ratios are interpreted as follows:Negative: < or = 0.90Equivocal: 0.91 to 1.09Positive: > or = 1.10 Performed By: #### W HIPWB, MYCOG ####[facility] LAB REFERENCE LABCLIA [id number] [facility] [place] [address] THERAPY NTon 10-14-2020 THERAPY NT Normal [facility] WHIPPLE'S PCR WBon Specimen source Nom (Unsp spec) EDTA PLASMA Normal [facility] Comment on above: Order Comment: Speci men Type: BLOOD SPECIMEN Performed By: #### W HIPWB, MYCOG ####[facility] LAB REFERENCE LABCLIA [id number] [facility] [address] T. whippelii DNA ANGELINE+probe Ql (Bld) Not detected Normal [facility] Comment on above: Order Comment: Speci men Type: BLOOD SPECIMEN Result Comment: (NOT E)NOT DETECTED - A negative result does not rule out thepresence of PCR inhibitors in the patient specimen or assayspecific nucleic acid in concentrations below the level ofdetection by the assay.INTERPRETIVE INFORMATION: Tropheryma whipplei PCRThis test was developed and its performance characteristicsdetermined by [facility]. It has not been cleared orapproved by the [place] Food and Drug Administration. This test wasperformed in a CLIA certified laboratory and is intended forclinical purposes.Performed by [facility],[address] [place] [id number] bjl.[employer], Latosha Davila MD, Lab. Director Performed By: #### W HIPWElia, MYCOG ####[facility] LAB REFERENCE LABCLIA [id number] [facility] [place] [address] aPTT PPPon 10-14-2020 aPTT Coag (PPP) [Time] 62.4 s High 23.0-32.4 [facility] Comment on above: Order Comment: Speci men Type: BLOOD SPECIMEN Performed By: #### 1 4979-9 ####[facility] LABORATORYCLIA [id number] [place] [address] aPTT Coag (PPP) [Time] 42.1 s High 23.0-32.4 [facility] Comment on above: Order Comment: Speci men Type: BLOOD SPECIMEN Performed By: #### 1 4979-9 ####[facility] LABORATORYCLIA [id number] [place] [address] aPTT Coag (PPP) [Time] 51.4 s High 23.0-32.4 [facility] Comment on above: Order Comment: Speci men Type: BLOOD SPECIMEN Performed By: #### 1 4979-9 ####[facility] LABORATORYCLIA [id number] [place] [address] BRIEF OP NOTon 10-13-2020 BRIEF OP NOT Normal [facility] Bacteria Bld Culton 10-14-19 Bacteria identified Cx Nom (Bld) CULTURE, BLOOD: No growth 5 days Normal [facility] Comment on above: Performed By: #### 6 00-7 ####[facility] LABORATORYCLIA [id number] [place] [address] Bacteria identified Cx Nom (Bld) CULTURE, BLOOD: No growth 5 days Normal [facility] Comment on above: Performed By: #### 6 00-7 ####[facility] LABORATORYCLIA [id number] [place] [address] CASE MANAGEMon 10-13-2020 CASE MANAGEM Normal [facility] CASE MGT INIT ASSESon 2020 CASE MGT INIT ASSES Normal [facility] CBC panel Auto (Bld)on 10-13 Erythrocyte distribution width (RBC) [Ratio] 13.8 % Normal 11.5-15.0 [facility] Comment on above: Order Comment: Speci men Type: BLOOD SPECIMEN Performed By: #### 5 8410-2 ####[facility] LABORATORYCLIA [id number] [place] [address] Hematocrit (Bld) [Volume fraction] 39.1 % Normal 36.0-46.0 [facility] Comment on above: Order Comment: Speci men Type: BLOOD SPECIMEN Performed By: #### 5 8410-2 ####[facility] LABORATORYCLIA [id number] [place] [address] Hemoglobin (Bld) [Mass/Vol] 13.1 g/dL Normal 11.5-15.5 [facility] Comment on above: Order Comment: Speci men Type: BLOOD SPECIMEN Performed By: #### 5 8410-2 ####[facility] LABORATORYCLIA [id number] [place] [address] MCH (RBC) [Entitic mass] 33.2 pg Normal 26.0-34.0 [facility] Comment on above: Order Comment: Speci men Type: BLOOD SPECIMEN Performed By: #### 5 8410-2 ####[facility] LABORATORYCLIA [id number] [place] [address] MCHC (RBC) [Mass/Vol] 33.5 g/dL Normal 30.5-36.0 [facility] Comment on above: Order Comment: Speci men Type: BLOOD SPECIMEN Performed By: #### 5 8410-2 ####[facility] LABORATORYCLIA [id number] [place] [address] MCV (RBC) [Entitic vol] 99.0 fL Normal 80.0-100.0 [facility] Comment on above: Order Comment: Speci men Type: BLOOD SPECIMEN Performed By: #### 5 8410-2 ####[facility] LABORATORYCLIA [id number] [place] [address] Nucleated RBC (Bld) [#/Vol] 10*3/uL Normal <0.01 [facility] Comment on above: Order Comment: Speci men Type: BLOOD SPECIMEN Performed By: #### 5 8410-2 ####[facility] LABORATORYCLIA [id number] [place] [address] Platelet mean volume (Bld) [Entitic vol] 10.3 fL Normal 9.0-12.7 [facility] Comment on above: Order Comment: Speci men Type: BLOOD SPECIMEN Performed By: #### 5 8410-2 ####[facility] LABORATORYCLIA [id number] [place] [address] Platelets (Bld) [#/Vol] 220 10*3/uL Normal 150-400 [facility] Comment on above: Order Comment: Speci men Type: BLOOD SPECIMEN Performed By: #### 5 8410-2 ####[facility] LAB[facility]ATORYCLIA [id number] [place] [address] RBC (Bld) [#/Vol] 3.95 10*6/uL Normal 3.90-5.20 [facility] Comment on above: Order Comment: Speci men Type: BLOOD SPECIMEN Performed By: #### 5 8410-2 ####[facility] LABORATORYCLIA [id number] [place] [address] WBC (Bld) [#/Vol] 6.13 10*3/uL Normal 3.70-11.00 [facility] Comment on above: Order Comment: Speci men Type: BLOOD SPECIMEN Performed By: #### 5 8410-2 ####[facility] LABORATORYCLIA [id number] [place] [address] CONSULTon 10-13-2020 CONSULT Normal [facility] CONSULT Normal [facility] CONSULT PROGon 10-13-2020 CONSULT PROG Normal [facility] CONSULT PROG Normal [facility] NIL INTERNAL/CEREBRAL BILon 10-13-2020 NIL INTERNAL/CEREBRAL JASON Final Report DATE OF EXAM: Oct 13 2020 10:30AM A6A [id number] - NIL INTERNAL/CEREBRAL JAOSN / PROCEDURE REASON: eval for aneurysm Physician [...] END TIME: 10:20AM ATTENDING: Luz Armas MD, GERIATRIC NURSE ASSISTANT (FELLOW): The procedure was performed by the attending without an assistant dean. The attending performed the following procedural activities: Diagnostic cerebral angiogram. ANGIOGRAPHY MATERIALS: Diagnostic catheter: 5 Japanese Vert Catheter , 5 Japanese pigtail catheter Guidewire: 0.035 inch angled tapered [...] right common femoral artery utilizing a 4 Japanese micropuncture set. A 5 Japanese sheath was inserted and connected to heparinized [...] are normal.. Bilateral SCAs are normal. Bilateral ocean rescue lieutenant are normal. The capillary and venous phases [...] stenosis. Luz Armas MD, Endovascular Surgical Neuroradiology 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: [facility] Transcribe Date/Time: Oct 13 2020 4:51P Dictated by : LUZ ARMAS MD This examination was interpreted and the report reviewed and electronically signed by: LUZ ARMAS MD on Oct 13 2020 5:14PM EST Normal [facility] NIL NON SELECT NEURO W/WO AR Allen [...] END TIME: 10:20AM ATTENDING: Luz Armas MD, GERIATRIC NURSE ASSISTANT (FELLOW): The procedure was performed by the attending without an assistant dean. The attending performed the following procedural activities: Diagnostic cerebral angiogram. ANGIOGRAPHY MATERIALS: Diagnostic catheter: 5 Japanese Vert Catheter , 5 Japanese pigtail catheter Guidewire: 0.035 inch angled tapered [...] right common femoral artery utilizing a 4 Japanese micropuncture set. A 5 Japanese sheath was inserted and connected to heparinized [...] are normal.. Bilateral SCAs are normal. Bilateral ocean rescue lieutenant are normal. The capillary and venous phases [...] stenosis. Luz Armas MD, Endovascular Surgical Neuroradiology 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 Transcribe Date/Time: Oct 13 2020 4:51P Dictated by : LUZ ARMAS MD This examination was interpreted and the report reviewed and electronically signed by: LUZ ARMAS MD on Oct 13 2020 5:14PM EST Normal [facility] NIL KJ BILAT EXT CAROTID H/ Non [...] END TIME: 10:20AM ATTENDING: Luz Armas MD, GERIATRIC NURSE ASSISTANT (FELLOW): The procedure was performed by the attending without an assistant dean. The attending performed the following procedural activities: Diagnostic cerebral angiogram. ANGIOGRAPHY MATERIALS: Diagnostic catheter: 5 Japanese Vert Catheter , 5 Japanese pigtail catheter Guidewire: 0.035 inch angled tapered [...] right common femoral artery utilizing a 4 Japanese micropuncture set. A 5 Japanese sheath was inserted and connected to heparinized [...] are normal.. Bilateral SCAs are normal. Bilateral ocean rescue lieutenant are normal. The capillary and venous phases [...] stenosis. Luz Armas MD, Endovascular Surgical Neuroradiology 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: [facility] Transcribe Date/Time: Oct 13 2020 4:51P Dictated by : LUZ ARMAS MD This examination was interpreted and the report reviewed and electronically signed by: LUZ ARMAS MD on Oct 13 2020 5:14PM EST Normal [facility] LAVERN Ray 10-13-2020 Bilirubin [Mass/Vol] Final Report DATE OF EXAM: Oct 13 2020 10:30AM Aby Osman74 - LAVERN MIXON JASON / PROCEDURE REASON: eval for aneurysm [...] END TIME: 10:20AM ATTENDING: Luz Armas MD, GERIATRIC NURSE ASSISTANT (FELLOW): The procedure was performed by the attending without an assistant dean. The attending performed the following procedural activities: Diagnostic cerebral angiogram. ANGIOGRAPHY MATERIALS: Diagnostic catheter: 5 Japanese Vert Catheter , 5 Japanese pigtail catheter Guidewire: 0.035 inch angled tapered [...] right common femoral artery utilizing a 4 Japanese micropuncture set. A 5 Japanese sheath was inserted and connected to heparinized [...] are normal.. Bilateral SCAs are normal. Bilateral ocean rescue lieutenant are normal. The capillary and venous phases [...] stenosis. Luz Armas MD, Endovascular Surgical Neuroradiology 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: [facility] Transcribe Date/Time: Oct 13 2020 4:51P Dictated by : LUZ ARMAS MD This examination was interpreted and the report reviewed and electronically signed by: LUZ ARMAS MD on Oct 13 2020 5:14PM EST Normal [facility] THERAPY NTon 10-13-2020 THERAPY NT Normal [facility] THERAPY NT Normal [facility] aPTT PPPon 10-13-2020 aPTT Coag (PPP) [Time] 76.9 s High 23.0-32.4 [facility] Comment on above: Order Comment: Speci men Type: BLOOD SPECIMEN Performed By: #### 1 4979-9 ####[facility] LABORATORYCLIA [id number] [place] [address] aPTT Coag (PPP) [Time] 37.8 s High 23.0-32.4 [facility] Comment on above: Order Comment: Speci men Type: BLOOD SPECIMEN Performed By: #### 1 4979-9 ####[facility] LABORATORYCLIA [id number] [place] [address] aPTT Coag (PPP) [Time] 84.2 s High 23.0-32.4 [facility] Comment on above: Order Comment: Speci men Type: BLOOD SPECIMEN Performed By: #### 1 4979-9 ####[facility] LABORATORYCLIA [id number] [place] [address] CBC panel Auto (Bld)on 10-12 Erythrocyte distribution width (RBC) [Ratio] 14.1 % Normal 11.5-15.0 [facility] Comment on above: Order Comment: Speci men Type: BLOOD SPECIMEN Performed By: #### 5 8410-2 ####[facility] LABORATORYCLIA [id number] [place] [address] Hematocrit (Bld) [Volume fraction] 41.9 % Normal 36.0-46.0 [facility] Comment on above: Order Comment: Speci men Type: BLOOD SPECIMEN Performed By: #### 5 8410-2 ####[facility] LABORATORYCLIA [id number] [place] [address] Hemoglobin (Bld) [Mass/Vol] 14.1 g/dL Normal 11.5-15.5 [facility] Comment on above: Order Comment: Speci men Type: BLOOD SPECIMEN Performed By: #### 5 8410-2 ####[facility] LABORATORYCLIA [id number] [place] [address] MCH (RBC) [Entitic mass] 33.3 pg Normal 26.0-34.0 [facility] Comment on above: Order Comment: Speci men Type: BLOOD SPECIMEN Performed By: #### 5 8410-2 ####[facility] LABORATORYCLIA [id number] [place] [address] MCHC (RBC) [Mass/Vol] 33.7 g/dL Normal 30.5-36.0 [facility] Comment on above: Order Comment: Speci men Type: BLOOD SPECIMEN Performed By: #### 5 8410-2 ####[facility] LABORATORYCLIA [id number] [place] [address] MCV (RBC) [Entitic vol] 99.1 fL Normal 80.0-100.0 [facility] Comment on above: Order Comment: Speci men Type: BLOOD SPECIMEN Performed By: #### 5 8410-2 ####[facility] LABORATORYCLIA [id number] [place] [address] Nucleated RBC (Bld) [#/Vol] 10*3/uL Normal <0.01 [facility] Comment on above: Order Comment: Speci men Type: BLOOD SPECIMEN Performed By: #### 5 8410-2 ####[facility]ORATORYCLIA [id number] [place] [address] Platelet mean volume (Bld) [Entitic vol] 10.4 fL Normal 9.0-12.7 [facility] Comment on above: Order Comment: Speci men Type: BLOOD SPECIMEN Performed By: #### 5 8410-2 ####[facility] LABORATORYCLIA [id number] [place] [address] Platelets (Bld) [#/Vol] 234 10*3/uL Normal 150-400 [facility] Comment on above: Order Comment: Speci men Type: BLOOD SPECIMEN Performed By: #### 5 8410-2 ####[facility]ORATORYCLIA [id number] [place] [address] RBC (Bld) [#/Vol] 4.23 10*6/uL Normal 3.90-5.20 [facility] Comment on above: Order Comment: Speci men Type: BLOOD SPECIMEN Performed By: #### 5 8410-2 ####[facility]ORATORYCLIA [id number] [place] [address] WBC (Bld) [#/Vol] 6.82 10*3/uL Normal 3.70-11.00 [facility] Comment on above: Order Comment: Speci men Type: BLOOD SPECIMEN Performed By: #### 5 8410-2 ####[facility]ORATORYCLIA [id number] [place] [address] CONSULT PROGon 10-12-2020 CONSULT PROG Normal [facility] NURSING PROGon 10-12-2020 NURSING PROG Normal [facility] PT panel Coag (PPP)on 2020 INR Coag (PPP) [Relative time] 1.3 {INR} Normal 0.9-1.3 [facility] Comment on above: Order Comment: Speci men Type: BLOOD SPECIMEN Result Comment: Nicolasa min K Antagonist (VKA) Therapeutic Range: INR 2 to 3 (Target INR of 2.5)Note: For patients treated with VKA drugs, such as warfarin, the [place] [employer] 2012 Guideline recommends [...] al. Chest 2012, 141:7S-47SNishimkarthik RA, et al. [facility] 2017, 70: 252-289 Performed By: #### 3 4528-0 ####[facility]ORATORYCLIA [id number] [place] [address] PT Coag (PPP) [Time] 13.1 s High 9.7-13.0 [facility] Comment on above: Order Comment: Speci men Type: BLOOD SPECIMEN Performed By: #### 3 4528-0 ####[facility]ORATORYCLIA [id number] [place] [address] THERAPY NTon 10-12-2020 THERAPY NT Normal [facility] THERAPY NT Normal [facility] THERAPY NT Normal [facility] aPTT PPPon 10-12-2020 aPTT Coag (PPP) [Time] 40.2 s High 23.0-32.4 [facility] Comment on above: Order Comment: Speci men Type: BLOOD SPECIMEN Performed By: #### 1 4979-9 ####[facility]ATORYCLIA [id number] [place] [address] aPTT Coag (PPP) [Time] 71.7 s High 23.0-32.4 [facility] Comment on above: Order Comment: Speci men Type: BLOOD SPECIMEN Performed By: #### 1 4979-9 ####[facility]ORATORYCLIA [id number] [place] [address] aPTT Coag (PPP) [Time] 48.6 s High 23.0-32.4 [facility] Comment on above: Order Comment: Speci men Type: BLOOD SPECIMEN Performed By: #### 1 4979-9 ####[facility]ORATORYCLIA [id number] [place] [address] aPTT Coag (PPP) [Time] 77.7 s High 23.0-32.4 [facility] Comment on above: Order Comment: Speci men Type: BLOOD SPECIMEN Performed By: #### 1 4979-9 ####[facility]ORATORYCLIA [id number] [place] [address] .Auto Diffon 10-11-2020 Ammonia (P) [Mass/Vol] 0.70 10 3/mcL Normal 0.15-1.00 [facility] ([place]) Comment on above: Performed By: #### C BC, ADIFF, ANEU, TROPHS, BMP #### [place] [address] #### GFR #### [address] [address] Basophils (Bld) [#/Vol] 0.10 10 3/mcL Normal 0.00-0.19 [facility] ([place]) Comment on above: Performed By: #### C BC, ADIFF, ANEU, TROPHS, BMP #### [place] [address] #### GFR #### [address] [address] Basophils/100 WBC (Bld) 1.0 % Normal 0.0-2.5 [facility] ([place] Comment on above: Performed By: #### C BC, ADIFF, ANEU, TROPHS, BMP #### [place] [address] #### GFR #### [address] [address] Eosinophils (Bld) [#/Vol] 0.30 10 3/mcL Normal 0.00-0.40 [facility] ([place] Comment on above: Performed By: #### C BC, ADIFF, ANEU, TROPHS, BMP #### [place] [address] #### GFR #### [address] [address] Eosinophils/100 WBC (Bld) 4.7 % Normal 0.0-7.0 [facility] ([place] Comment on above: Performed By: #### C BC, ADIFF, ANEU, TROPHS, BMP #### [address] [address] #### GFR #### [address] [address] Lymphocytes (Bld) [#/Vol] 1.60 10 3/mcL Normal 0.77-3.85 [facility] ([place]) Comment on above: Performed By: #### C BC, ADIFF, ANEU, TROPHS, BMP #### [address] [address] #### GFR #### [address] [address] Lymphocytes/100 WBC (Bld) 23.9 % Normal 10.0-50.0 [facility] ([place]) Comment on above: Performed By: #### C BC, ADIFF, ANEU, TROPHS, BMP #### [place] [address] #### GFR #### [address] [address] Monocytes/100 WBC (Bld) 10.5 % Normal 1.7-13.0 [facility] ([place]) Comment on above: Performed By: #### C BC, ADIFF, ANEU, TROPHS, BMP #### [address] [address] #### GFR #### [address] [address] Neutrophils/100 WBC (Bld) 59.9 % Normal 37.0-80.0 [facility] ([place]) Comment on above: Performed By: #### C BC, ADIFF, ANEU, TROPHS, BMP #### [address] [address] #### GFR #### [address] [address] .GFRon 10-11-2020 GFR 75 ml/min/1.73sqm Normal [facility] ([place]) Comment on above: Result Comment: GFR Population [...] C BC, ADIFF, ANEU, TROPHS, BMP #### [address] [address] #### GFR #### [address] [address] GFR Non- 62 ml/min/1.73sqm Normal [facility] ([place] Comment on above: Result Comment: GFR Population [...] C BC, ADIFF, ANEU, TROPHS, BMP #### [address] [address] #### GFR #### [address] [address] .NEUABSon 10-11-2020 Neutrophils (Bld) [#/Vol] 4.10 10 3/mcL Normal 2.85-6.16 [facility] ([place] Comment on above: Performed By: #### C BC, ADIFF, ANEU, TROPHS, BMP #### [address] [address] #### GFR #### [address] [address] 2019 CORONAVIRUSon SARS-CoV-2 (COVID-19) RNA ANGELINE+probe Ql (Unsp spec) [facility] Comment on above: Performed By: #### C OVID ####[facility] LAB REFERENCE LABCLIA [id number] [place] [address] ALLIED HEALTHon 10-11-2020 ALLIED HEALTH HNO ID: [id number] Author: Candido Jama (Rt) Service: Radiology Author Type: Supervisor Tubing Type: Allied Health Filed: 10/11/2020 9:53 AM Note Text: Patient is 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 RN notified. Normal [facility] HNO ID: [id number] Author: Candido Jama (Rt) Service: Radiology Author Type: Supervisor Tubing Type: Allied Health Filed: 10/11/2020 7:59 AM Note Text: Called for MRI Safety screening form Normal [facility] BMPon 10-11-2020 Calcium [Mass/Vol] 8.6 mg/dL Normal 8.4-10.2 [facility] ([place]) Comment on above: Performed By: #### C MIRIAM ADIFF, ANEU, TROPHS, BMP #### [address] [address] #### GFR #### [address] [address] Chloride [Moles/Vol] 105 mmol/L Normal 98-107 [facility] ([place] Comment on above: Performed By: #### C BC ADIFF, ANEU, TROPHS, BMP #### [address] [address] #### GFR #### [address] [address] CO2 [Moles/Vol] 24 mmol/L Normal 22-29 [facility] ([place] Comment on above: Performed By: #### C BC, ADIFF, ANEU, TROPHS, BMP #### [address] [address] #### GFR #### [address] [address] Creatinine [Mass/Vol] 0.95 mg/dL Normal 0.55-1.02 [facility] ([place] Comment on above: Performed By: #### C BC, ADIFF, ANEU, TROPHS, BMP #### [place] [address] #### GFR #### [address] [address] Electrolyte Balance 12.0 mEq/L Normal [facility] ([place] Comment on above: Performed By: #### C BC, ADIFF, ANEU, TROPHS, BMP #### [place] [address] #### GFR #### [address] [address] Glucose [Mass/Vol] 91 mg/dL Normal 70-105 [facility] ([place] Comment on above: Performed By: #### C BC, ADIFF, ANEU, TROPHS, BMP #### [place] [address] #### GFR #### [address] [address] Potassium [Moles/Vol] 4.2 mmol/L Normal 3.5-5.1 [facility] ([place] Comment on above: Performed By: #### C BC, ADIFF, ANEU, TROPHS, BMP #### [address] [address] #### GFR #### [address] [address] Sodium [Moles/Vol] 141 mmol/L Normal 136-145 [facility] ([place] Comment on above: Performed By: #### C BC, ADIFF, ANEU, TROPHS, BMP #### [place] [address] #### GFR #### [address] [address] Urea nitrogen [Mass/Vol] 16 mg/dL Normal 7-18 [facility] ([place] Comment on above: Performed By: #### C BC, ADIFF, ANEU, TROPHS, BMP #### [address] [address] #### GFR #### [address] [address] Urea nitrogen/Creatinine [Mass ratio] 17 ratio Normal 7-27 [facility] ([place] Comment on above: Performed By: #### C BC, ADIFF, ANEU, TROPHS, BMP #### [address] [address] #### GFR #### [address] [address] CBCon 10-11-2020 Erythrocyte distribution width (RBC) [Ratio] 15.1 % High 11.5-14.5 [facility] ([place] Comment on above: Performed By: #### C BC, ADIFF, ANEU, TROPHS, BMP #### [address] [address] #### GFR #### [address] [address] Hematocrit (Bld) [Volume fraction] 41.8 % Normal 37.0-47.0 [facility] ([place] Comment on above: Performed By: #### C BC, ADIFF, ANEU, TROPHS, BMP #### [address] [address] #### GFR #### [address] [address] Hemoglobin (Bld) [Mass/Vol] 13.9 G/dL Normal 12.0-16.0 [facility] ([place] Comment on above: Performed By: #### C BC, ADIFF, ANEU, TROPHS, BMP #### [address] [address] #### GFR #### [address] [address] MCH (RBC) [Entitic mass] 32.9 pg High 27.0-31.2 [facility] ([place] Comment on above: Performed By: #### C BC, ADIFF, ANEU, TROPHS, BMP #### [address] [address] #### GFR #### [address] [address] MCHC (RBC) [Mass/Vol] 33.2 G/dL Normal 33.0-37.0 [facility] ([place]) Comment on above: Performed By: #### C BC, ADIFF, ANEU, TROPHS, BMP #### [place] [address] #### GFR #### [address] [address] MCV (RBC) [Entitic vol] 99.1 fL High 80.0-94.0 [facility] ([place] Comment on above: Performed By: #### C BC, ADIFF, ANEU, TROPHS, BMP #### [place] [address] #### GFR #### [place] [address] Platelet mean volume (Bld) [Entitic vol] 7.7 fL Normal 7.4-10.4 [facility] ([place] Comment on above: Performed By: #### C BC, ADIFF, ANEU, TROPHS, BMP #### [place] [address] #### GFR #### [place] [address] Platelets (Bld) [#/Vol] 206 10 3/mcL Normal 130-400 [facility] ([place] Comment on above: Performed By: #### C BC, ADIFF, ANEU, TROPHS, BMP #### [place] [address] #### GFR #### [facility] [address] [place], [place] [address] RBC (Bld) [#/Vol] 4.21 10 6/mcL Normal 4.20-5.40 [facility] ([place] Comment on above: Performed By: #### C BC, ADIFF, ANEU, TROPHS, BMP #### [address] [address] #### GFR #### [address] [address] WBC (Bld) [#/Vol] 6.80 10 3/mcL Normal 4.60-10.80 [facility] ([place] Comment on above: Performed By: #### C BC, ADIFF, ANEU, TROPHS, BMP #### [address] [address] #### GFR #### [address] [address] CBC panel Auto (Bld)on 10-11 Erythrocyte distribution width (RBC) [Ratio] 14.3 % Normal 11.5-15.0 [facility] Comment on above: Order Comment: Speci men Type: BLOOD SPECIMEN Performed By: #### 5 8410-2 ####[facility] LABORATORYCLIA [id number] [place] [address] Hematocrit (Bld) [Volume fraction] 41.0 % Normal 36.0-46.0 [facility] Comment on above: Order Comment: Speci men Type: BLOOD SPECIMEN Performed By: #### 5 8410-2 ####[facility] LABORATORYCLIA [id number] [place] [address] Hemoglobin (Bld) [Mass/Vol] 13.7 g/dL Normal 11.5-15.5 [facility] Comment on above: Order Comment: Speci men Type: BLOOD SPECIMEN Performed By: #### 5 8410-2 ####[facility] LABORATORYCLIA [id number] [place] [address] MCH (RBC) [Entitic mass] 32.7 pg Normal 26.0-34.0 [facility] Comment on above: Order Comment: Speci men Type: BLOOD SPECIMEN Performed By: #### 5 8410-2 ####[facility] LABORATORYCLIA [id number] [place] [address] MCHC (RBC) [Mass/Vol] 33.4 g/dL Normal 30.5-36.0 [facility] Comment on above: Order Comment: Speci men Type: BLOOD SPECIMEN Performed By: #### 5 8410-2 ####[facility] LABORATORYCLIA [id number] [place] [address] MCV (RBC) [Entitic vol] 97.9 fL Normal 80.0-100.0 [facility] Comment on above: Order Comment: Speci men Type: BLOOD SPECIMEN Performed By: #### 5 8410-2 ####[facility] LABORATORYCLIA [id number] [place] [address] Nucleated RBC (Bld) [#/Vol] 10*3/uL Normal <0.01 [facility] Comment on above: Order Comment: Speci men Type: BLOOD SPECIMEN Performed By: #### 5 8410-2 ####[facility]ORATORYCLIA [id number] [place] [address] Platelet mean volume (Bld) [Entitic vol] 9.7 fL Normal 9.0-12.7 [facility] Comment on above: Order Comment: Speci men Type: BLOOD SPECIMEN Performed By: #### 5 8410-2 ####[facility] LABORATORYCLIA [id number] [place] [address] Platelets (Bld) [#/Vol] 217 10*3/uL Normal 150-400 [facility] Comment on above: Order Comment: Speci men Type: BLOOD SPECIMEN Performed By: #### 5 8410-2 ####[facility]ORATORYCLIA [id number] [place] [address] RBC (Bld) [#/Vol] 4.19 10*6/uL Normal 3.90-5.20 [facility] Comment on above: Order Comment: Speci men Type: BLOOD SPECIMEN Performed By: #### 5 8410-2 ####[facility]ORATORYCLIA [id number] [place] [address] WBC (Bld) [#/Vol] 6.88 10*3/uL Normal 3.70-11.00 [facility] Comment on above: Order Comment: Speci men Type: BLOOD SPECIMEN Performed By: #### 5 8410-2 ####[facility]ORATORYCLIA [id number] [place] [address] CONSULTon 10-11-2020 CONSULT HNO ID: [id number] Author: Burak Espino Service: [facility] Author Type: Physician Type: Consults Filed: 10/11/2020 7:26 PM Note Text: Consult dictated. Normal [facility] CONSULT Normal [facility] CR-XR CHEST 1 VIEW IMPORTon 10-11-2020 CR-XR CHEST 1 VIEW IMPORT Images were obtained outside of [facility] Normal [facility] CT HEAD OR BRAIN W/O CONTRAS Ton [...] Date: 10/11/2020 3:54:15 AM Ordering Provider:Pepe Alvarez [facility] ([place]) CT-CT HEAD OR BRAIN W/O CONT RAST IMPORTon 10-11-2020 CT-CT HEAD OR BRAIN W/O CONTRAST IMPORT Images were obtained outside of [facility] Normal [facility] Comprehensive metabolic 2000 panelon 10-11-2020 Albumin [Mass/Vol] 4.1 g/dL Normal 3.9-4.9 [facility] Comment on above: Order Comment: Speci men Type: BLOOD SPECIMEN Performed By: #### 1 9123-9, 54834-0, 2776- ####[facility]ORATORYCLIA [id number] [place] [address] ALP [Catalytic activity/Vol] 56 U/L Normal 34-123 [facility] Comment on above: Order Comment: Speci men Type: BLOOD SPECIMEN Performed By: #### 1 9123-9, 59848-8, 2776- ####[facility]ORATORYCLIA [id number] [place] [address] ALT With P-5'-P [Catalytic activity/Vol] 15 U/L Normal 7-38 [facility] Comment on above: Order Comment: Speci men Type: BLOOD SPECIMEN Performed By: #### 1 9123-9, 54642-0, 2776- ####[facility]ORATORYCLIA [id number] [place] [address] Anion gap [Moles/Vol] 10 mmol/L Normal 9-18 [facility] Comment on above: Order Comment: Speci men Type: BLOOD SPECIMEN Performed By: #### 1 9123-9, 25643-6, 2776- ####[facility]ORATORYCLIA [id number] [place] [address] AST With P-5'-P [Catalytic activity/Vol] 21 U/L Normal 13-35 [facility] Comment on above: Order Comment: Speci men Type: BLOOD SPECIMEN Performed By: #### 1 9122-9, , 2776-08 ####[facility]ATORYCLIA [id number] [place] [address] Bilirubin [Mass/Vol] 0.9 mg/dL Normal 0.2-1.3 [facility] Comment on above: Order Comment: Speci men Type: BLOOD SPECIMEN Performed By: #### 1 9122-9, , 2776-08 ####[facility]ORYCLIA [id number] [place] [address] Calcium [Mass/Vol] 9.3 mg/dL Normal 8.5-10.2 [facility] Comment on above: Order Comment: Speci men Type: BLOOD SPECIMEN Performed By: #### 1 9, , 2776-08 ####[facility]ORYCLIA [id number] [place] [address] Chloride [Moles/Vol] 107 mmol/L High 97-105 [facility] Comment on above: Order Comment: Speci men Type: BLOOD SPECIMEN Performed By: #### 1 9, , 2776-08 ####[facility]ATORYCLIA [id number] [place] [address] CO2 [Moles/Vol] 23 mmol/L Normal 22-30 [facility] Comment on above: Order Comment: Speci men Type: BLOOD SPECIMEN Performed By: #### 1 9122-9, , 2776-08 ####[facility]ATORYCLIA [id number] [place] [address] Creatinine [Mass/Vol] 0.81 mg/dL Normal 0.58-0.96 [facility] Comment on above: Order Comment: Speci men Type: BLOOD SPECIMEN Performed By: #### 1 9122-9, , 2776-08 ####[facility]ORYCLIA [id number] [place] [address] GFR/1.73 sq M.predicted MDRD (S/P/Bld) [Vol rate/Area] mL/min/{1.73_m2} Normal [facility] Comment on above: Order Comment: Speci [...] actual GFR. Performed By: #### 1 9123-9, 69904-1, 2777- ####[facility] LABORATORYCLIA [id number] [place] [address] Glucose [Mass/Vol] 92 mg/dL Normal 74-99 [facility] Comment on above: Order Comment: Speci men Type: BLOOD SPECIMEN Result Comment: The [place] [employer] (ADA) provides guidance for cutoff [...] Standards of Medical Care in Diabetes 2016, [place] [employer] Association. Diabetes Care. 2016.39(Suppl 1). Performed By: #### 1 9123-9, 24816-0, 7- ####[facility] LABORATORYCLIA [id number] [place] [address] Potassium [Moles/Vol] 4.1 mmol/L Normal 3.7-5.1 [facility] Comment on above: Order Comment: Speci men Type: BLOOD SPECIMEN Performed By: #### 1 9123-9, 30099-4, 7- ####[facility]ORYCLIA [id number] [place] [address] Protein [Mass/Vol] 6.2 g/dL Low 6.3-8.0 [facility] Comment on above: Order Comment: Speci men Type: BLOOD SPECIMEN Performed By: #### 1 9123-9, 03213-1, 2776- ####[facility]ORYCLIA [id number] [place] [address] Sodium [Moles/Vol] 140 mmol/L Normal 136-144 [facility] Comment on above: Order Comment: Speci men Type: BLOOD SPECIMEN Performed By: #### 1 9123-9, 34988-8, 2776- ####[facility]ORYCLIA [id number] [place] [address] Urea nitrogen [Mass/Vol] 12 mg/dL Normal 7-21 [facility] Comment on above: Order Comment: Speci men Type: BLOOD SPECIMEN Performed By: #### 1 9123-9, 48024-1, 2776- ####[facility]ORYCLIA [id number] [place] [address] ED NOTEon 10-11-2020 ED NOTE HNO ID: [id number] Author: Maylin PelletierRn) PRAVIN Monroy Service: Emergency Medicine Author Type: Registered Nurse Type: ED Notes Filed: 10/11/2020 8:57 AM Note Text: Dr. Acosta notified pt is unable to have MRA Normal [facility] ED NOTE Normal [facility] ED NOTE HNO ID: [id number] Author: Maylin PelletierRn) PRAVIN Monroy Service: Emergency Medicine Author Type: Registered Nurse Type: ED Notes Filed: 10/11/2020 8:40 AM Note Text: Report called to PRAVIN Whitten. Bed ready. Normal [facility] ED NOTE HNO ID: [id number] Author: Maylin PelletierRn) PRAVIN Monroy Service: Emergency Medicine Author Type: Registered Nurse Type: ED Notes Filed: 10/11/2020 8:36 AM Note Text: Pt assisted on and off bedpan. Pericare provided Normal [facility] ED NOTE Normal [facility] ED NOTE HNO ID: [id number] Author: Malik (Rn) PRAVIN Christine Service: ? Author Type: Registered Nurse Type: ED Notes Filed: 10/11/2020 6:07 AM Note Text: Bed: 34-ED Expected date: Expected time: Means of arrival: Comments: [place] headache Normal [facility] ED PROV NOTEon 10-11-2020 ED PROV NOTE Normal [facility] HISTORY PHYSICALon HISTORY PHYSICAL Normal [facility] HOSPon 10-11-2020 HOSP Normal [facility] Magnesium SerPl-mCncon 10-11 Magnesium [Mass/Vol] 1.8 mg/dL Normal 1.7-2.3 [facility] Comment on above: Order Comment: Speci men Type: BLOOD SPECIMEN Performed By: #### 1 9123-9, 50456-0, 2777-1 ####[facility] LABORATORYCLIA [id number] [place] [address] PT panel Coag (PPP)on 2020 INR Coag (PPP) [Relative time] 1.6 {INR} High 0.9-1.3 [facility] Comment on above: Order Comment: Speci men Type: BLOOD SPECIMEN Result Comment: Nicolasa min K Antagonist (VKA) Therapeutic Range: INR 2 to 3 (Target INR of 2.5)Note: For patients treated with VKA drugs, such as warfarin, the [employer] 2012 Guideline recommends [...] al. Chest 2012, 141:7S-47SNishimkarthik RA, et al. [facility] 2017, 70: 252-289 Performed By: #### 1 4979-9, 76943-6 ####[facility] LABORATORYCLIA [id number] [place] [address] PT Coag (PPP) [Time] 15.9 s High 9.7-13.0 [facility] Comment on above: Order Comment: Speci men Type: BLOOD SPECIMEN Performed By: #### 1 4979-9, 26669-8 ####[facility] LABORATORYCLIA [id number] [place] [address] Phosphate SerPl-mCncon 10-11 Phosphate [Mass/Vol] 3.1 mg/dL Normal 2.7-4.8 [facility] Comment on above: Order Comment: Speci men Type: BLOOD SPECIMEN Performed By: #### 1 9123-9, 00216-1, 2777-1 ####[facility] LABORATORYCLIA [id number] [place] [address] TROPHSon 10-11-2020 Troponin I High Sensitivity 14.8 ng/L Normal 0.0-51.4 [facility] ([place]) Comment on above: Performed By: #### C BC, ADIFF, ANEU, TROPHS, BMP #### [address] [address] #### GFR #### [address] [address] XR CHEST 1 VIEWon 10-11-2020 XR CHEST [...] Date: 10/11/2020 3:31:06 AM Ordering Provider:Pepe Jarvis [facility] ([place]) aPTT PPPon 10-11-2020 aPTT Coag (PPP) [Time] 80.9 s High 23.0-32.4 [facility] Comment on above: Order Comment: Speci men Type: BLOOD SPECIMEN Performed By: #### 1 4979-9 ####[facility] LABORATORYCLIA [id number] [place] [address] aPTT Coag (PPP) [Time] 31.1 s Normal 23.0-32.4 [facility] Comment on above: Order Comment: Speci men Type: BLOOD SPECIMEN Performed By: #### 1 4979-9, 33106-9 ####[facility]ORATORYCLIA [id number] [place] [address] Office Visiton 02-23-2017 Documentation of current medications (procedure) Done Invalid Interpretation Code [facility] Work Phone: Tobacco use CPHS Current every day smoker Invali d Interpretation Code [facility] Work Phone: Culture, urine Bacteria identified Cx Nom (U) Escherichia coli [facility] Work Phone: Bacteria identified Cx Nom (U) Proteus mirabilis [facility] Work Phone: Laboratory - Microbiology an d Antimicrobial susceptibility Bacteria identified Cx Nom (Bld) No growth in 5 days. [facility] Work Phone: Lower GI hemoglobin IA Ql (S tl) Stool Occult Blood (SAKINA) Positive [facility] Work Phone: No Panel Information Influenza Types A,B Direct FA (SAKINA) [facility] Work Phone: Vital Signs Date Time Vital Sign Value Performing Clinician Faci brent 04-12-2025 05:38-0400 Body temperature 98.7 [degF] Dr. Louis Dobbs MD Work Phone: [facility] 04-12-2025 05:38-0400 Diastolic blood pressure 76 mm[Hg] Dr. Louis Dobbs MD Work Phone: [facility] 04-12-2025 05:38-0400 Heart rate 89 /min Dr. Louis Dobbs MD Work Phone: [facility] 04-12-2025 05:38-0400 Respiratory rate 18 /min Dr. Louis Dobbs MD Work Phone: 5(749)095-577851 [place] [address] 04-12-2025 05:38-0400 SaO2% (BldA) [Mass fraction] 94 % Dr. Louis Dobbs MD Work Phone: 2(777)382-006851 [place] [address] 04-12-2025 05:38-0400 Systolic blood pressure 122 mm[Hg] Dr. Louis Dobbs MD Work Phone: 1(002)922-257051 [place] [address] 04-12-2025 05:08-0400 Body height 160.[address] Louis Dobbs MD Work Phone: [facility] 04-12-2025 05:08-0400 Body mass index (BMI) [Ratio] 34.2 kg/m2 Dr. Louis Dobbs MD Work Phone: [facility] 04-12-2025 05:08-0400 Body weight 87.[address] Louis Dobbs MD Work Phone: [facility] 03-24-2025 12:39-0400 Body mass index (BMI) [Ratio] 31.9 kg/m2 Louis Dobbs MD Work Phone: [facility] 03-24-2025 12:39-0400 Body weight 84.3 kg Louis Dobbs MD Work Phone: [facility] 03-24-2025 12:39-0400 Diastolic blood pressure 70 mm[Hg] Louis Dobbs MD Work Phone: [facility] 03-24-2025 12:39-0400 Heart rate 80 /min Louis Dobbs MD Work Phone: [facility] 03-24-2025 12:39-0400 Respiratory rate 16 /min Louis Dobbs MD Work Phone: [facility] 03-24-2025 12:39-0400 Systolic blood pressure 110 mm[Hg] Louis Dobbs MD Work Phone: [facility] 02-27-2025 16:12-0400 Body height 160.[address] Louis Dobbs MD Work Phone: [facility] 02-27-2025 16:12-0400 Body weight 85.[address] Louis Dobbs MD Work Phone: [facility] 02-04-2025 12:42-0400 Body mass index (BMI) [Ratio] 32.51 kg/m2 Judy Haywood [employer].VP CLINICAL Work Phone: [facility] 02-04-2025 12:42-0400 Body weight 85.9 kg Judy Haywood [employer].VP [employer]INICAL Work Phone: [facility] 02-04-2025 12:42-0400 Diastolic blood pressure 68 mm[Hg] Judy Haywood [employer].VP CLINICAL Work Phone: [facility] 02-04-2025 12:42-0400 Heart rate 92 /min Judy Haywood [employer].VP CLINICAL Work Phone: [facility] 02-04-2025 12:42-0400 Respiratory rate 14 /min Judy Haywood [employer].VP CLINICAL Work Phone: [facility] 02-04-2025 12:42-0400 SaO2% (BldA) [Mass fraction] 98 % Judy Haywood [employer].VP CLINICAL Work Phone: [facility] 02-04-2025 12:42-0400 Systolic blood pressure 110 mm[Hg] Judy Haywood [employer].VP CLINICAL Work Phone: [facility] 01-13-2025 17:02-0400 Diastolic blood pressure 81 mm[Hg] Dr. Louis Dobbs MD Work Phone: 6(573)869-183951 [place] [address] 01-13-2025 17:02-0400 Systolic blood pressure 140 mm[Hg] Dr. Louis Dobbs MD Work Phone: 8(587)902-675383 [place] [address] 01-13-2025 17:01-0400 Body temperature 97.6 [degF] Dr. Louis Dobbs MD Work Phone: 6(792)037-907483 [place] [address] 01-13-2025 17:01-0400 Heart rate 58 /min Dr. Louis Dobbs MD Work Phone: 6(895)173-372983 [place] [address] 01-13-2025 17:01-0400 Respiratory rate 18 /min Dr. Louis Dobbs MD Work Phone: 3(070)500-454183 [place] [address] 01-13-2025 17:01-0400 SaO2% (BldA) [Mass fraction] 97 % Dr. Louis Dobbs MD Work Phone: 9(876)485-401683 [place] [address] 01-13-2025 13:42-0400 Body height 157.[address] Louis Dbobs MD Work Phone: 3(607)524-169483 [place] [address] 01-13-2025 13:42-0400 Body mass index (BMI) [Ratio] 35.6 kg/m2 Dr. Louis Dobbs MD Work Phone: 1(365)892-177283 [place] [address] 01-13-2025 13:42-0400 Body weight 88.[address] Louis Dobbs MD Work Phone: 4(782)703-072351 [place] [address] 12-16-2024 12:46-0400 Body mass index (BMI) [Ratio] 34.4 kg/m2 Angel Pickett [employer]ICE LEAD Work Phone: 8(605)398-160972 [place] [address] 12-16-2024 12:46-0400 Body weight 90.9 kg Angel Pickett [employer] SERVICE LEAD Work Phone: 8(402)871-454672 [place] [address] 12-16-2024 12:46-0400 Diastolic blood pressure 72 mm[Hg] Angel Pickett APRN.FOOD SERVICE LEAD Work Phone: 4(992)699-418472 [place] [address] 12-16-2024 12:46-0400 Heart rate 74 /min Angel Pickett [employer] SERVICE LEAD Work Phone: [facility] 12-16-2024 12:46-0400 Respiratory rate 16 /min Angel Pickett [employer] SERVICE LEAD Work Phone: [facility] 12-16-2024 12:46-0400 Systolic blood pressure 106 mm[Hg] Angel Pickett [employer].FOOD SERVICE LEAD Work Phone: [facility] 12-09-2024 14:30-0400 Body mass index (BMI) [Ratio] 35 kg/m2 Judy Joe [employer].VP CLINICAL Work Phone: [facility] 12-09-2024 14:30-0400 Body weight 92.5 kg Judy Joe [employer].VP [employer]INICAL Work Phone: [facility] 12-09-2024 14:30-0400 Diastolic blood pressure 86 mm[Hg] Judy Joe [employer].VP CLINICAL Work Phone: [facility] 12-09-2024 14:30-0400 Heart rate 90 /min Judy Joe [employer].VP CLINICAL Work Phone: [facility] 12-09-2024 14:30-0400 Respiratory rate 14 /min Judy Joe [employer].VP CLINICAL Work Phone: [facility] 12-09-2024 14:30-0400 Systolic blood pressure 124 mm[Hg] Judy Joe [employer].VP CLINICAL Work Phone: [facility] 10-11-2024 07:41-0500 Body height 157.[address] Louis Dobbs MD Work Phone: [facility] 10-11-2024 07:41-0500 Body mass index (BMI) [Ratio] 38.2 kg/m2 Dr. Louis Dobbs MD Work Phone: [facility] 10-11-2024 07:41-0500 Body weight 94.[address] Louis Dobbs MD Work Phone: [facility] 10-11-2024 07:41-0500 Diastolic blood pressure 84 mm[Hg] Dr. Loius Dobbs MD Work Phone: [facility] 10-11-2024 07:41-0500 Heart rate 97 /min Dr. Louis Dobbs MD Work Phone: [facility] 10-11-2024 07:41-0500 Respiratory rate 22 /min Dr. Louis Dobbs MD Work Phone: [facility] 10-11-2024 07:41-0500 SaO2% (BldA) [Mass fraction] 95 % Dr. Louis Dobbs MD Work Phone: [facility] 10-11-2024 07:41-0500 Systolic blood pressure 127 mm[Hg] Dr. Louis Dobbs MD Work Phone: [facility] 09-26-2024 12:00-0500 Diastolic blood pressure 78 mm[Hg] Shavon Valentin MD Work Phone: [facility] 09-26-2024 12:00-0500 Heart rate 64 /min Shavon Valentin MD Work Phone: [facility] 09-26-2024 12:00-0500 Systolic blood pressure 135 mm[Hg] Shavon Valentin MD Work Phone: [facility] 09-26-2024 11:51-0500 Body height 160 cm Shavon Valentin MD Work Phone: [facility] 06-17-2024 09:22-0500 Body height 162.6 cm Judy Haywood APRN.CNP Work Phone: [facility] 06-17-2024 09:22-0500 Body mass index (BMI) [Ratio] 35.76 kg/m2 Judy Haywood APRN.CNP Work Phone: [facility] 06-17-2024 09:22-0500 Body weight 94.5 kg [facility].VP CLINICAL Work Phone: [facility] 06-17-2024 09:22-0500 Diastolic blood pressure 68 mm[Hg] Judy VannJoe [employer].VP CLINICAL Work Phone: [facility] 06-17-2024 09:22-0500 Heart rate 83 /min Judy Joe [employer].VP CLINICAL Work Phone: [facility] 06-17-2024 09:22-0500 Respiratory rate 18 /min [facility]Mer[facility] HospitalJoe [facility]ONER SOCK.VP CLINICAL Work Phone: [facility] 06-17-2024 09:22-0500 SaO2% (BldA) [Mass fraction] 93 % [facility]IN[facility] Work Phone: [facility] 06-17-2024 09:22-0500 Systolic blood pressure 110 mm[Hg] Judy HectorJoe [employer]ER SOCK.VP CLINICAL Work Phone: [facility] 07-25-2023 14:00-0500 Body temperature 98 [degF] Dr. Louis Dobbs Work Phone: [facility] 07-25-2023 14:00-0500 Diastolic blood pressure 57 mm[Hg] Dr. Louis Dobbs Work Phone: [facility] 07-25-2023 14:00-0500 Heart rate 91 /min Dr. Louis Dobbs Work Phone: [facility] 07-25-2023 14:00-0500 Respiratory rate 19 /min Dr. Louis Dobbs Work Phone: [facility] 07-25-2023 14:00-0500 SaO2% (BldA) [Mass fraction] 96 % Dr. Louis Dobbs Work Phone: [facility] 07-25-2023 14:00-0500 Systolic blood pressure 131 mm[Hg] Dr. Louis Dobbs Work Phone: 8(723)489-287451 [place] [address] 07-24-2023 15:33-0500 Body height 157.[address] Louis Dobbs Work Phone: 5(463)386-754083 [place] [address] 07-24-2023 15:33-0500 Body mass index (BMI) [Ratio] 33 kg/m2 Dr. Luois Dobbs Work Phone: 9(783)391-690683 [place] [address] 07-24-2023 15:33-0500 Body weight 82.[address] Louis Dobbs Work Phone: 3(578)317-673783 [place] [address] 07-24-2023 14:22-0500 Diastolic blood pressure 80 mm[Hg] Dr. Louis Dobbs Work Phone: 1(818)584-219983 [place] [address] 07-24-2023 14:22-0500 Heart rate 84 /min Dr. Louis Dobbs Work Phone: 5(978)092-563283 [place] [address] 07-24-2023 14:22-0500 Respiratory rate 22 /min Dr. Louis Dobbs Work Phone: 6(353)554-497983 [place] [address] 07-24-2023 14:22-0500 SaO2% (BldA) [Mass fraction] 97 % Dr. Louis Dobbs Work Phone: 1(194)362-311983 [place] [address] 07-24-2023 14:22-0500 Systolic blood pressure 136 mm[Hg] Dr. Louis Dobbs Work Phone: 1(821)000-110983 [place] [address] 07-24-2023 12:12-0500 Body height 157.[address] Louis Dobbs Work Phone: 7(237)780-202283 [place] [address] 07-24-2023 12:12-0500 Body mass index (BMI) [Ratio] 34.7 kg/m2 Dr. Louis Dobbs Work Phone: 7(162)011-230183 [place] [address] 07-24-2023 12:12-0500 Body temperature 98.3 [degF] Dr. Louis Dobbs Work Phone: 0(874)346-940083 [place] [address] 07-24-2023 12:12-0500 Body weight 86.[address] Louis Dobbs Work Phone: [facility] 06-25-2023 05:17-0500 Body height 157.48 cm [facility] 06-25-2023 05:17-0500 Body mass index (BMI) [Ratio] 32.9 kg/m2 [facility] 06-25-2023 05:17-0500 Body temperature 97.8 [degF] [facility] 06-25-2023 05:17-0500 Body weight 81.64 kg [facility] 06-25-2023 05:17-0500 Diastolic blood pressure 98 mm[Hg] [facility] 06-25-2023 05:17-0500 Heart rate 94 /min [facility] 06-25-2023 05:17-0500 Respiratory rate 16 /min [facility] 06-25-2023 05:17-0500 SaO2% (BldA) [Mass fraction] 98 % [facility] 06-25-2023 05:17-0500 Systolic blood pressure 159 mm[Hg] [facility] 12-08-2022 13:19-0400 Body height 162.6 cm Silvia Yates APRN.VP CLINICAL Work Phone: [facility] 12-08-2022 13:19-0400 Body weight 81.65 kg Silvia Yates APRN.VP CLINICAL Work Phone: [facility] 12-08-2022 13:19-0400 Diastolic blood pressure 82 mm[Hg] Silvia Yates APRN.VP CLINICAL Work Phone: [facility] 12-08-2022 13:19-0400 Systolic blood pressure 124 mm[Hg] Silvia Yates APRN.VP CLINICAL Work Phone: [facility] 10-14-2022 09:53-0500 Body height 160.[address] Louis Dobbs Work Phone: [facility] 10-14-2022 09:53-0500 Body mass index (BMI) [Ratio] 32.9 kg/m2 Dr. Louis Dobbs Work Phone: [facility] 10-14-2022 09:53-0500 Body weight 84.[address] Louis Dobbs Work Phone: [facility] 10-14-2022 09:53-0500 Diastolic blood pressure 71 mm[Hg] Dr. Louis Dobbs Work Phone: [facility] 10-14-2022 09:53-0500 Heart rate 67 /min Dr. Louis Dobbs Work Phone: 7(545)373-262951 [place] [address] 10-14-2022 09:53-0500 Respiratory rate 18 /min Dr. Louis Dobbs Work Phone: 1(029)932-084451 [place] [address] 10-14-2022 09:53-0500 SaO2% (BldA) [Mass fraction] 99 % Dr. Louis Dobbs Work Phone: 1(697)734-292551 [place] [address] 10-14-2022 09:53-0500 Systolic blood pressure 129 mm[Hg] Dr. Louis Dobbs Work Phone: 2(490)764-197536 [address] 06-11-2022 07:45-0400 Diastolic blood pressure 76 mm[Hg] Dr. Loius Dobbs Work Phone: 7(480)402-341551 [place] [address] Work Phone: 06-11-2022 07:45-0400 Heart rate 69 /min Dr. Louis Dobbs Work Phone: [facility] Work Phone: 06-11-2022 07:45-0400 Respiratory rate 12 /min Dr. Louis Dobbs Work Phone: [facility] Work Phone: 06-11-2022 07:45-0400 SaO2% (BldA) [Mass fraction] 97 % Dr. Louis Dobbs Work Phone: [facility] Work Phone: 06-11-2022 07:45-0400 Systolic blood pressure 129 mm[Hg] Dr. Louis Dobbs Work Phone: [facility] Work Phone: 06-10-2022 15:54-0400 Body height 160.[address] Louis Dobbs Work Phone: [facility] Work Phone: 06-10-2022 15:54-0400 Body mass index (BMI) [Ratio] 28.7 kg/m2 Dr. Louis Dobbs Work Phone: [facility] Work Phone: 06-10-2022 15:54-0400 Body temperature 98.1 [degF] Dr. Louis Dobbs Work Phone: [facility] Work Phone: 06-10-2022 15:54-0400 Body weight 73.[address] Louis Dobbs Work Phone: [facility] Work Phone: 06-08-2022 21:14-0400 Diastolic blood pressure 66 mm[Hg] Dr. Louis Dobbs Work Phone: [facility] Work Phone: 06-08-2022 21:14-0400 Systolic blood pressure 146 mm[Hg] Dr. Louis Dobbs Work Phone: [facility] Work Phone: 06-08-2022 20:00-0400 Respiratory rate 20 /min Dr. Louis Dobbs Work Phone: [facility] Work Phone: 06-08-2022 16:05-0400 Body height 160.[address] Louis Dobbs Work Phone: [facility] Work Phone: 06-08-2022 16:05-0400 Body mass index (BMI) [Ratio] 28.3 kg/m2 Dr. Louis Dobbs Work Phone: [facility] Work Phone: 06-08-2022 16:05-0400 Body temperature 98.2 [degF] Dr. Louis Dobbs Work Phone: [facility] Work Phone: 06-08-2022 16:05-0400 Body weight 72.[address] Louis Dobbs Work Phone: [facility] Work Phone: 06-08-2022 16:05-0400 Heart rate 102 /min Dr. Louis Dobbs Work Phone: [facility] Work Phone: 06-08-2022 16:05-0400 SaO2% (BldA) [Mass fraction] 97 % Dr. Louis Dobbs Work Phone: [facility] Work Phone: 05-30-2022 13:14-0400 Heart rate 107 /min Dr. Louis Dobbs Work Phone: [facility] Work Phone: 05-30-2022 13:14-0400 Respiratory rate 26 /min Dr. Louis Dobbs Work Phone: [facility] Work Phone: 05-30-2022 13:14-0400 SaO2% (BldA) [Mass fraction] 100 % Dr. Louis Dobbs Work Phone: [facility] Work Phone: 05-30-2022 11:24-0400 Body height 157.[address] Louis Dobbs Work Phone: [facility] Work Phone: 05-30-2022 11:24-0400 Body mass index (BMI) [Ratio] 29.9 kg/m2 Dr. Louis Dobbs Work Phone: [facility] Work Phone: 05-30-2022 11:24-0400 Body temperature 97.7 [degF] Dr. Louis Dobbs Work Phone: [facility] Work Phone: 05-30-2022 11:24-0400 Body weight 74.[address] Louis Dobbs Work Phone: [facility] Work Phone: 05-30-2022 11:24-0400 Diastolic blood pressure 101 mm[Hg] Dr. Louis Dobbs Work Phone: [facility] Work Phone: 05-30-2022 11:24-0400 Systolic blood pressure 114 mm[Hg] Dr. Louis Dobbs Work Phone: [facility] Work Phone: 03-17-2022 08:42-0400 Body mass index (BMI) [Ratio] 30.5 kg/m2 Dr. Louis Dobbs Work Phone: [facility] Work Phone: 03-17-2022 08:42-0400 Diastolic blood pressure 80 mm[Hg] Dr. Louis Dobbs Work Phone: [facility] Work Phone: 03-17-2022 08:42-0400 Systolic blood pressure 114 mm[Hg] Dr. Louis Dobbs Work Phone: [facility] Work Phone: 03-17-2022 08:04-0400 Body temperature 97.8 [degF] Dr. Louis Dobbs Work Phone: [facility] Work Phone: 03-17-2022 08:04-0400 Body weight 75.[address] Louis Dobbs Work Phone: [facility] Work Phone: 03-17-2022 08:04-0400 Heart rate 76 /min Dr. Louis Dobbs Work Phone: [facility] Work Phone: 03-17-2022 08:04-0400 Respiratory rate 16 /min Dr. Louis Dobbs Work Phone: [facility] Work Phone: 03-17-2022 08:04-0400 SaO2% (BldA) [Mass fraction] 96 % Dr. Louis Dobbs Work Phone: [facility] Work Phone: 02-23-2022 14:04-0400 Body temperature 98.1 [degF] Dr. Louis Dobbs Work Phone: [facility] Work Phone: 02-23-2022 14:04-0400 Diastolic blood pressure 65 mm[Hg] Dr. Louis Dobbs Work Phone: [facility] Work Phone: 02-23-2022 14:04-0400 Heart rate 77 /min Dr. Louis Dobbs Work Phone: [facility] Work Phone: 02-23-2022 14:04-0400 Respiratory rate 18 /min Dr. Louis Dobbs Work Phone: [facility] Work Phone: 02-23-2022 14:04-0400 SaO2% (BldA) [Mass fraction] 98 % Dr. Louis Dobbs Work Phone: [facility] Work Phone: 02-23-2022 14:04-0400 Systolic blood pressure 137 mm[Hg] Dr. Louis Dobbs Work Phone: [facility] Work Phone: 02-23-2022 06:27-0400 Body weight 81.[address] Louis Dobbs Work Phone: [facility] Work Phone: 02-22-2022 08:19-0400 Body height [address] Louis Dobbs Work Phone: [facility] Work Phone: 02-22-2022 08:19-0400 Body mass index (BMI) [Ratio] 33.2 kg/m2 Dr. Louis Dobbs Work Phone: [facility] Work Phone: 02-19-2022 14:00-0400 Inhaled oxygen flow rate 2 L/min Dr. Louis Dobbs Work Phone: [facility] Work Phone: 02-16-2022 15:02-0400 Body temperature 95 [degF] Dr. Louis Dobbs Work Phone: [facility] Work Phone: 02-16-2022 15:02-0400 Diastolic blood pressure 60 mm[Hg] Dr. Louis Dobbs Work Phone: [facility] Work Phone: 02-16-2022 15:02-0400 Heart rate 63 /min Dr. Louis Dobbs Work Phone: [facility] Work Phone: 02-16-2022 15:02-0400 Respiratory rate 20 /min Dr. Louis Dobbs Work Phone: [facility] Work Phone: 02-16-2022 15:02-0400 SaO2% (BldA) [Mass fraction] 99 % Dr. Louis Dobbs Work Phone: [facility] Work Phone: 02-16-2022 15:02-0400 Systolic blood pressure 100 mm[Hg] Dr. Louis Dobbs Work Phone: [facility] Work Phone: 02-16-2022 14:47-0400 Inhaled oxygen flow rate 2 L/min Dr. Louis Dobbs Work Phone: [facility] Work Phone: 02-16-2022 12:48-0400 Body height 157.[address] Louis Dobbs Work Phone: [facility] Work Phone: 02-16-2022 12:48-0400 Body mass index (BMI) [Ratio] 33 kg/m2 Dr. Louis Dobbs Work Phone: [facility] Work Phone: 02-16-2022 12:48-0400 Body weight 81.[address] Louis Dobbs Work Phone: [facility] Work Phone: 12-20-2021 20:48-0400 Body temperature 97.4 [degF] Dr. Louis Dobbs Work Phone: [facility] Work Phone: 12-20-2021 20:48-0400 Diastolic blood pressure 77 mm[Hg] Dr. Louis Dobbs Work Phone: [facility] Work Phone: 12-20-2021 20:48-0400 Heart rate 81 /min Dr. Louis Dobbs Work Phone: [facility] Work Phone: 12-20-2021 20:48-0400 Respiratory rate 20 /min Dr. Louis Dobbs Work Phone: [facility] Work Phone: 12-20-2021 20:48-0400 SaO2% (BldA) [Mass fraction] 100 % Dr. Louis Dobbs Work Phone: [facility] Work Phone: 12-20-2021 20:48-0400 Systolic blood pressure 106 mm[Hg] Dr. Louis Dobbs Work Phone: [facility] Work Phone: 12-20-2021 06:00-0400 Body weight 78.[address] Louis Dobbs Work Phone: [facility] Work Phone: 12-17-2021 12:22-0400 Body height 157.[address] Louis Dobbs Work Phone: [facility] Work Phone: 12-15-2021 09:57-0400 Body temperature 98 [degF] Dr. Louis Dobbs Work Phone: [facility] Work Phone: 12-15-2021 09:57-0400 Diastolic blood pressure 68 mm[Hg] Dr. Louis Dobbs Work Phone: [facility] Work Phone: 12-15-2021 09:57-0400 Heart rate 76 /min Dr. Louis Dobbs Work Phone: [facility] Work Phone: 12-15-2021 09:57-0400 Respiratory rate 18 /min Dr. Louis Dobbs Work Phone: [facility] Work Phone: 12-15-2021 09:57-0400 SaO2% (BldA) [Mass fraction] 97 % Dr. Louis Dobbs Work Phone: [facility] Work Phone: 12-15-2021 09:57-0400 Systolic blood pressure 113 mm[Hg] Dr. Louis Dobbs Work Phone: [facility] Work Phone: 12-14-2021 17:13-0400 Body height 157.[address] Louis Dobbs Work Phone: [facility] Work Phone: 12-14-2021 17:13-0400 Body weight 67.[address] Louis Dobbs Work Phone: [facility] Work Phone: 12-14-2021 13:48-0400 Body mass index (BMI) [Ratio] 27.2 kg/m2 Dr. Louis Dobbs Work Phone: [facility] Work Phone: 12-14-2021 13:07-0400 Body temperature 98.1 [degF] Dr. Louis Dobbs Work Phone: [facility] Work Phone: 12-14-2021 13:07-0400 Diastolic blood pressure 57 mm[Hg] Dr. Louis Dobbs Work Phone: [facility] Work Phone: 12-14-2021 13:07-0400 Heart rate 83 /min Dr. Louis Dobbs Work Phone: [facility] Work Phone: 12-14-2021 13:07-0400 Respiratory rate 18 /min Dr. Louis Dobbs Work Phone: [facility] Work Phone: 12-14-2021 13:07-0400 SaO2% (BldA) [Mass fraction] 95 % Dr. Louis Dobbs Work Phone: [facility] Work Phone: 12-14-2021 13:07-0400 Systolic blood pressure 107 mm[Hg] Dr. Louis Dobbs Work Phone: [facility] Work Phone: 12-14-2021 10:13-0400 Body height 157.[address] Louis Dobbs Work Phone: [facility] Work Phone: 12-14-2021 10:13-0400 Body mass index (BMI) [Ratio] 31.6 kg/m2 Dr. Louis Dobbs Work Phone: [facility] Work Phone: 12-14-2021 10:13-0400 Body weight 78.[address] Louis Dobbs Work Phone: [facility] Work Phone: 12-06-2021 11:44-0400 Diastolic blood pressure 64 mm[Hg] Dr. Louis Dobbs Work Phone: [facility] Work Phone: 12-06-2021 11:44-0400 Heart rate 91 /min Dr. Louis Dobbs Work Phone: [facility] Work Phone: 12-06-2021 11:44-0400 Respiratory rate 16 /min Dr. Louis Dobbs Work Phone: [facility] Work Phone: 12-06-2021 11:44-0400 SaO2% (BldA) [Mass fraction] 98 % Dr. Louis Dobbs Work Phone: [facility] Work Phone: 12-06-2021 11:44-0400 Systolic blood pressure 91 mm[Hg] Dr. Louis Dobbs Work Phone: [facility] Work Phone: 12-06-2021 09:50-0400 Body height 157.[address] Louis Dobbs Work Phone: [facility] Work Phone: 12-06-2021 09:50-0400 Body mass index (BMI) [Ratio] 33.8 kg/m2 Dr. Louis Dobbs Work Phone: [facility] Work Phone: 12-06-2021 09:50-0400 Body temperature 97 [degF] Dr. Louis Dobbs Work Phone: [facility] Work Phone: 12-06-2021 09:50-0400 Body weight 83.[address] Louis Dobbs Work Phone: [facility] Work Phone: 11-10-2021 11:59-0400 Respiratory rate 22 /min Dr. Louis Dobbs Work Phone: [facility] Work Phone: 11-10-2021 10:40-0400 Body height 157.[address] Louis Dobbs Work Phone: [facility] Work Phone: 11-10-2021 10:40-0400 Body mass index (BMI) [Ratio] 33 kg/m2 Dr. Louis Dobbs Work Phone: [facility] Work Phone: 11-10-2021 10:40-0400 Body temperature 97.9 [degF] Dr. Louis Dobbs Work Phone: [facility] Work Phone: 11-10-2021 10:40-0400 Body weight [address] Louis Dobbs Work Phone: [facility] Work Phone: 11-10-2021 10:40-0400 Diastolic blood pressure 77 mm[Hg] Dr. Louis Dobbs Work Phone: [facility] Work Phone: 11-10-2021 10:40-0400 Heart rate 96 /min Dr. Louis Dobbs Work Phone: [facility] Work Phone: 11-10-2021 10:40-0400 SaO2% (BldA) [Mass fraction] 98 % Dr. Louis Dobbs Work Phone: [facility] Work Phone: 11-10-2021 10:40-0400 Systolic blood pressure 120 mm[Hg] Dr. Louis Dobbs Work Phone: [facility] Work Phone: 11-02-2021 12:57-0400 Body mass index (BMI) [Ratio] 33.8 kg/m2 Dr. Louis Dobbs Work Phone: [facility] Work Phone: 11-02-2021 12:57-0400 Body weight 83.[address] Louis Dobbs Work Phone: [facility] Work Phone: 11-02-2021 12:57-0400 Diastolic blood pressure 42 mm[Hg] Dr. Louis Dobbs Work Phone: [facility] Work Phone: 11-02-2021 12:57-0400 Heart rate 81 /min Dr. Louis Dobbs Work Phone: [facility] Work Phone: 11-02-2021 12:57-0400 Respiratory rate 18 /min Dr. Louis Dobbs Work Phone: [facility] Work Phone: 11-02-2021 12:57-0400 Systolic blood pressure 100 mm[Hg] Dr. Louis Dobbs Work Phone: [facility] Work Phone: 11-02-2021 12:57-0400 Body height 157.[address] Louis Dobbs Work Phone: [facility] Work Phone: 11-02-2021 12:57-0400 Body mass index (BMI) [Ratio] 33.8 kg/m2 Dr. Louis Dobbs Work Phone: [facility] Work Phone: 11-02-2021 12:57-0400 Body weight 83.[address] Louis Dobbs Work Phone: [facility] Work Phone: 11-02-2021 12:57-0400 Diastolic blood pressure 42 mm[Hg] Dr. Louis Dobbs Work Phone: [facility] Work Phone: 11-02-2021 12:57-0400 Heart rate 81 /min Dr. Louis Dobbs Work Phone: [facility] Work Phone: 11-02-2021 12:57-0400 Respiratory rate 18 /min Dr. Louis Dobbs Work Phone: [facility] Work Phone: 11-02-2021 12:57-0400 Systolic blood pressure 100 mm[Hg] Dr. Louis Dobbs Work Phone: [facility] Work Phone: 10-12-2021 13:19-0500 Body mass index (BMI) [Ratio] 33.5 kg/m2 Dr. Louis Dobbs Work Phone: [facility] Work Phone: 10-12-2021 13:19-0500 Body temperature 97.2 [degF] Dr. Louis Dobbs Work Phone: [facility] Work Phone: 10-12-2021 13:19-0500 Body weight [address] Louis Dobbs Work Phone: [facility] Work Phone: 10-12-2021 13:19-0500 Diastolic blood pressure 87 mm[Hg] Dr. Louis Dobbs Work Phone: [facility] Work Phone: 10-12-2021 13:19-0500 Heart rate 86 /min Dr. Louis Dobbs Work Phone: [facility] Work Phone: 10-12-2021 13:19-0500 Respiratory rate 15 /min Dr. Louis Dobbs Work Phone: [facility] Work Phone: 10-12-2021 13:19-0500 SaO2% (BldA) [Mass fraction] 96 % Dr. Louis Dobbs Work Phone: [facility] Work Phone: 10-12-2021 13:19-0500 Systolic blood pressure 166 mm[Hg] Dr. Louis Dobbs Work Phone: [facility] Work Phone: 07-22-2021 12:29-0500 Body weight 88.[address] Louis Dobbs Work Phone: [facility] Work Phone: 07-22-2021 12:29-0500 Diastolic blood pressure 60 mm[Hg] Dr. Louis Dobbs Work Phone: [facility] Work Phone: 07-22-2021 12:29-0500 Heart rate 76 /min Dr. Louis Dobbs Work Phone: [facility] Work Phone: 07-22-2021 12:29-0500 Respiratory rate 28 /min Dr. Louis Dobbs Work Phone: [facility] Work Phone: 07-22-2021 12:29-0500 SaO2% (BldA) [Mass fraction] 96 % Dr. Louis Dobbs Work Phone: [facility] Work Phone: 07-22-2021 12:29-0500 Systolic blood pressure 96 mm[Hg] Dr. Louis Dobbs Work Phone: [facility] Work Phone: 02-23-2017 14:23-0400 BMI (Body Mass Index) 33.65 kg/m2 [facility] Work Phone: 02-23-2017 14:23-0400 Height 160.02 cm Marley Hackett [facility] Work Phone: 02-23-2017 14:23-0400 Weight 86.18 kg Marley Hackett [facility] Work Phone: Encounters Encounter Date Encounter Type Care Provider Facility Start: 04-12-2025 End: 04-12-2025 Emergency department patient visit Dr. Louis Dobbs MD Work Phone: -Emergency Department Work Phone: Start: 04-06-2025 End: 04-06-2025 Follow-up encounter Louis Dobbs MD Work Phone: [facility] [place] Start: 04-03-2025 ambulatory LOUIS DOBBS Faci lity:[facility] Start: 04-03-2025 End: 04-03-2025 Subsequent hospital visit by physician [facility] Comment on above: Encounter for screen ing mammogram for malignant neoplasm of breast [Z12.31] Start: 03-24-2025 End: 03-24-2025 Office outpatient visit 25 minutes Louis Dobbs MD Work Phone: [facility] [place] Comment on above: Primary hypertension (Primary Dx); [...] Start: 03-24-2025 End: 03-24-2025 ambulatory LOUIS DOBBS Facility:[facility] Start: 02-27-2025 End: 02-27-[address] Louis Dobbs MD -Occupational Therapy Work Phone: Start: 02-27-2025 End: 02-27-[address] Louis Dobbs MD Work Phone: -Occupational Therapy Start: 02-13-2025 End: 02-13-[address] Louis Dobbs MD Work Phone: -[place] [facility] Start: 02-13-2025 End: 02-13-2025 Patient encounter procedure Bernie Wallace -[facility] Work Phone: Start: 02-12-2025 End: 02-13-[address] Louis Dobbs MD Work Phone: -[facility] Start: 02-12-2025 End: 02-12-[address] 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 Louis Dobbs MD Work Phone: -Emergency Department Work Phone: Start: 01-09-2025 End: 01-10-2025 Telephone encounter Louis Dobbs MD Work Phone: [facility] [place] Comment on above: Letter Start: 01-07-2025 End: 01-07-2025 Telephone encounter Louis Dobbs MD Work Phone: [facility] [place] Comment on above: Patient Update Start: 12-17-2024 End: 01-17-2025 ambulatory Louis Dobbs MD Work Phone: [facility] [place] Start: 12-16-2024 End: 12-16-2024 Office outpatient visit 15 minutes Angel Pickett [employer]OD SERVICE LEAD Work Phone: [facility] [place] Comment on above: Bilateral lower extr emity pain (Primary Dx); Pedal edema Start: 12-16-2024 End: 12-16-2024 ambulatory LOUIS DOBBS Facility:[facility] Start: 12-09-2024 End: 12-09-2024 ambulatory JUDY HAYWOOD Facility:[facility] Start: 12-09-2024 End: 12-09-2024 Subsequent hospital visit by physician [facility] Work Phone: Radiology Comment on above: Bilateral lower extr emity pain [M79.604, M79.605] Start: 12-09-2024 End: 12-09-2024 Office outpatient visit 25 minutes Judy Haywood IRONER SOCK.VP CLINICAL Work Phone: [facility] [place] Comment on above: Bilateral lower extr emity pain (Primary Dx); Pedal edema Start: 12-09-2024 End: 12-09-2024 ambulatory JUDY HAYWOOD Facility:[facility] Start: 12-09-2024 End: 12-10-2024 Follow-up encounter Judy Haywood IRONER SOCK.VP CLINICAL Work Phone: [facility] [place] Comment on above: Results Start: 12-09-2024 End: 12-09-2024 Telephone encounter Judy Haywood IR[employer]ER SOCK.VP CLINICAL Work Phone: [facility] [place] Comment on above: Patient Update; Appo intment Start: 11-13-2024 End: 11-13-2024 ambulatory Louis Dobbs Facility:[facility] Start: 11-13-2024 End: 11-13-[address] Jonnathan Gama MD -[facility] Work Phone: Start: 10-30-2024 End: 10-30-2024 Refill Louis Dobbs MD Work Phone: [facility] [place] Comment on above: Refill Request Start: 10-11-2024 End: 10-11-2024 Patient encounter procedure Lucio CLAUDIO -[facility] Work Phone: Start: 10-11-2024 End: 10-11-[address] Louis Dobbs MD Work Phone: [facility] Work Phone: Start: 10-11-2024 End: 10-11-2024 ambulatory Louis Dobbs Facility:[facility] Start: 09-26-[address] [facility] Facility:[facility] Start: 09-26-2024 End: 09-26-2024 Subsequent hospital visit by physician Shavon Valentin MD Work Phone: Cardi[facility] Comment on above: Arrived Start: 09-17-2024 End: 10-03-2024 Telephone encounter Louis Dobbs MD Work Phone: [facility] [place] Comment on above: Patient Update Start: 09-05-2024 ambulatory [facility] Facility:[facility] Start: 09-02-2024 End: 09-03-2024 Refill Louis Dobbs MD Work Phone: [facility] [place] Comment on above: Refill Request Start: 08-14-2024 End: 08-14-[address] Shavon Valentin MD -Laboratory Work Phone: Start: 08-14-2024 End: 08-14-2024 ambulatory Jonnathan Gama Facility:[facility] Start: 08-14-2024 End: 08-14-[address] Jonnathan Gama MD -[facility] Work Phone: Start: 08-14-2024 End: 08-14-2024 ambulatory Shavon Homero Facility:[facility] Start: 07-26-2024 ambulatory Kyleigh Sam PHLEBOTOMIST MEDICAL LAB ASSISTANT Facili ty:[facility] Start: 06-28-2024 End: 06-28-2024 Patient encounter procedure Contreras Maxwell PHLEBOTOMIST MEDICAL LAB ASSISTANT-C -Laboratory Work Phone: Start: 06-28-2024 End: 06-28-2024 ambulatory Contreras Maxwell PHLEBOTOMIST MEDICAL LAB ASSISTANT Facility:[facility] Start: 06-25-2024 Non-patient / Non-visit Kyleigh aldana PHLEBOTOMIST MEDICAL LAB ASSISTANT-C -[facility] Work Phone: Start: 06-25-2024 ambulatory Kyleigh Sam PHLEBOTOMIST MEDICAL LAB ASSISTANT Facili ty:[facility] Start: 06-20-2024 ambulatory Shavon Homero Facility:[facility] Start: 06-19-2024 End: 06-19-2024 Refill Louis Dobbs MD Work Phone: [facility] [place] Comment on above: Refill Request Start: 06-18-2024 ambulatory Shavon Homero Facility:[facility] Start: 06-17-2024 End: 06-18-2024 ambulatory JUDY HAYWOOD Facility:[facility] Start: 06-17-2024 End: 06-17-2024 Patient encounter procedure Judy Haywood IRONER SOCK.VP CLINICAL Work Phone: [facility] [place] Comment on above: Medicare annual well ness [...] Start: 06-12-2024 End: 06-12-2024 ambulatory Shavon Homero Facility:[facility] Start: 06-05-2024 End: 06-05-2024 ambulatory Louis Dobbs Facility:[facility] Start: 05-30-2024 End: 05-30-2024 ambulatory Frances Kidd MA [facility] Start: 05-30-2024 End: 05-30-2024 Patient encounter procedure Frances Kidd MA [facility] Start: 05-15-2024 End: 05-15-2024 ambulatory Jonnathan Gama Facility:[facility] Start: 05-08-2024 End: 05-08-2024 Refill Louis Dobbs MD Work Phone: [facility] [place] Comment on above: Refill Request Start: 05-06-2024 End: 05-06-2024 ambulatory Jonnathan Gama Facility[facility] Start: 03-20-2024 Telephone encounter Louis akins MD Work Phone: [facility] [place] Comment on above: Patient Outreach Start: 03-19-2024 Refill Louis palacios MD Work Phone: [facility] [place] Comment on above: Refill Request Start: 03-05-2024 ambulatory Lily Camarena ALBERTA [facility] [place] Start: 03-05-2024 Patient encounter procedure Lily Camarena ALBERTA [facility] [place] Comment on above: Appointment Start: 01-30-2024 ambulatory Silvia Cates [facility] [facility] Start: 01-30-2024 Patient encounter procedure Silvia Cates MA [facility] Comment on above: Population Health Na vigation Outreach ([place] AWV/HCC and care gaps ) Start: 01-17-2024 ambulatory Louis palacios MD Work Phone: Internal Medicine [facility] Start: 12-26-2023 Refill Louis palacios MD Work Phone: [facility] [place] Comment on above: Refill Request Start: 11-28-2023 ambulatory Silvia Cates [facility] [place] [facility] Start: 11-28-2023 Patient encounter procedure Silvia Cates MA [facility] Comment on above: Population Health Na vigation Outreach ([place] AWV/HCC and care gaps ) Refill Request Start: 10-03-2023 Refill Louis palacios MD Work Phone: [facility] [place] Comment on above: Refill Request Start: 09-29-2023 Refill Louis palacios MD Work Phone: [facility] [place] Comment on above: Refill Request Start: 07-25-2023 Non-patient / Non-visit Dr. Tonya Dobbs Work Phone: [facility] Work Phone: Start: 07-24-2023 End: 07-25-2023 Evaluation and management of inpatient Dr. Louis Dobbs Work Phone: [facility]-Medical Surgical 3 Work Phone: Start: 07-24-2023 End: 07-25-[address] Louis Dobbs Work Phone: [facility] Work Phone: Start: 07-24-2023 Non-patient / Non-visit Dr. Tonya Dobbs Work Phone: [facility] Work Phone: Start: 06-25-2023 End: 06-25-2023 [facility] Start: 06-08-2023 Telephone encounter Louis akins MD Work Phone: [facility] [place] Comment on above: Patient Question (in haler) Start: 05-24-2023 Telephone encounter Judy Quiros APRN.CNP Work Phone: [facility] [place] Comment on above: Home Health Start: 05-16-2023 End: 05-16-[address] Louis Dobbs Work Phone: [facility] Work Phone: Start: 05-12-2023 Refill Louis palacios MD Work Phone: Internal [facility] Comment on above: Refill Request Start: 04-17-2023 Refill Louis palacios MD Work Phone: Family [facility] Comment on above: Refill Request; Refi ll Request Start: 02-17-2023 Refill Louis palacios MD Work Phone: [facility] [place] Comment on above: Refill Request; Refi ll Request Start: 02-16-2023 End: 02-16-[address] Louis Dobbs Work Phone: [facility] Work Phone: Start: 02-16-2023 End: 02-16-[address] Louis Dobbs Work Phone: [facility]-Laboratory Work Phone: Start: 01-23-2023 Refill Louis palacios MD Work Phone: [facility] Comment on above: Refill Request Start: 01-11-2023 Telephone encounter Silvia monterroso APRN.VP CLINICAL Work Phone: OB/Gynecology Comment on above: Results Start: 01-11-2023 End: 01-11-2023 Subsequent hospital visit by physician [facility] Work Phone: Radiology Comment on above: Mastalgia [N64.4] Start: 01-10-2023 Non-patient / Non-visit Dr. Tonya Dobbs Work Phone: [facility] Start: 01-10-2023 End: 01-10-[address] Louis Dobbs Work Phone: [facility]-Cardiovascular Services Work Phone: Start: 12-09-2022 Documentation procedure Mammog mayco Coordinator [facility] Start: 12-09-2022 Letter encounter Mammography Coordinator [facility] Start: 12-08-2022 End: 12-08-2022 Patient encounter procedure Silvia Yates APRN.VP CLINICAL Work Phone: OB/Gynecology Comment on above: Encounter [...] End: 12-08-2022 Patient encounter status Silvia Yates APRN.VP CLINICAL Work Phone: OB/Gynecology Start: 11-14-2022 Telephone encounter Louis akins MD Work Phone: [facility] [place] Comment on above: Patient Update (fall) Start: 11-11-2022 Non-patient / Non-visit Dr. Tonya Dobbs Work Phone: [facility] Work Phone: Start: 11-03-2022 End: 11-03-[address] Louis Dobbs Work Phone: [facility] Work Phone: Start: 11-03-2022 End: 11-03-[address] Louis Dobbs Work Phone: [facility]-Laboratory Start: 11-02-2022 Refill Louis palacios MD Work Phone: [facility] [place] Comment on above: Refill Request Start: 11-01-2022 End: 11-01-[address] Louis Dobbs Work Phone: [facility] Work Phone: Start: 11-01-2022 End: 11-01-[address] Louis Dobbs Work Phone: [facility]-Laboratory Start: 10-26-2022 End: 10-26-[address] Louis Dobbs Work Phone: [facility] Start: 10-18-2022 End: 10-18-[address] Louis Dobbs Work Phone: [facility] Work Phone: Start: 10-18-2022 Telephone encounter Louis akins MD Work Phone: [facility] [place] Comment on above: Medication Request Clinical Update (FYI INR) Transition Of Care Start: 10-18-2022 End: 10-18-[address] Louis Dobbs Work Phone: [facility]-Laboratory Start: 10-14-2022 End: 10-14-[address] Louis Dobbs Work Phone: [facility] Start: 10-12-2022 Telephone encounter Louis akins MD Work Phone: [facility] [place] Comment on above: [place] /inquir ing about INRs Start: 10-03-2022 Telephone encounter Louis akins MD Work Phone: [facility] [place] Comment on above: Gina Polo [facility] HH/verbal order needed Start: 07-22-2022 End: 07-22-[address] Louis Dobbs Work Phone: [facility] Start: 07-14-2022 Telephone encounter Louis akins MD Work Phone: [facility] [place] Comment on above: Patient Update Start: 07-06-2022 Telephone encounter Louis akins MD Work Phone: [facility] [place] Comment on above: Patient Question; Pa tient Update; Orders Start: 06-20-2022 Telephone encounter Louis akins MD Work Phone: [facility] [place] Comment on above: Patient Update Start: 06-13-2022 End: 06-17-2022 ambulatory [facility] Start: 06-10-2022 End: 06-11-2022 Emergency department patient visit Dr. Louis Dobbs Work Phone: [facility]-Emergency Department Start: 06-08-2022 End: 06-08-2022 Emergency department patient [facility] Start: 06-06-2022 Telephone encounter Louis akins MD Work Phone: [facility] [place] Comment on above: ST. [facility] HH POC and patie nt update Start: 06-06-2022 Non-patient / Non-visit Dr. Tonya Dobbs Work Phone: [facility] Start: 06-02-2022 Telephone encounter Louis akins MD Work Phone: Internal [facility] Comment on above: Refill Request Start: 06-01-2022 Non-patient / Non-visit Dr. Tonya Dobbs Work Phone: [facility] Start: 05-30-2022 Telephone encounter Louis akins MD Work Phone: [facility] [place] Comment on above: INR and Coumadin dos ing Start: 05-30-2022 End: 05-30-2022 Emergency department patient [facility] Start: 05-24-2022 Telephone encounter Louis akins MD Work Phone: [facility] [place] Comment on above: Patient Update Start: 05-23-2022 Telephone encounter Louis akins MD Work Phone: [facility] [place] Comment on above: Patient Update Start: 05-18-2022 Telephone encounter Louis akins MD Work Phone: [facility] [place] Comment on above: report of patient fa ll Start: 05-16-2022 Telephone encounter Louis akins MD Work Phone: Family [facility] [place] Comment on above: Home Health Point of Care Results Start: 05-11-2022 Telephone encounter Louis akins MD Work Phone: [facility] [place] Comment on above: [facility] PT POC; Order s Start: 05-10-2022 Telephone encounter Louis akins MD Work Phone: [facility] [place] Comment on above: HH Orders Start: 04-22-2022 End: 04-22-[address] Louis Dobbs Work Phone: [facility] Start: 03-17-2022 End: 03-17-[address] Louis Dobbs Work Phone: [facility] Start: 02-24-2022 Telephone encounter Louis akins MD Work Phone: [facility] [place] Comment on above: Clinical Update Start: 02-23-2022 Non-patient / Non-visit Dr. Tonya Dobbs Work Phone: [facility] Start: 02-22-2022 Non-patient / Non-visit Dr. Tonya Dobbs Work Phone: [facility] Start: 02-22-2022 Non-patient / Non-visit Dr. Tonya Dobbs Work Phone: [facility] Start: 02-21-2022 Non-patient / Non-visit Dr. Tonya Dobbs Work Phone: [facility] Start: 02-21-2022 Non-patient / Non-visit Dr. Tonya Dobbs Work Phone: [facility] Start: 02-20-2022 Non-patient / Non-visit Dr. Tonya Dobbs Work Phone: [facility] Start: 02-19-2022 Non-patient / Non-visit Dr. Tonya Dobbs Work Phone: [facility] Start: 02-18-2022 Non-patient / Non-visit Dr. Tonya Dobbs Work Phone: [facility] Start: 02-17-2022 Non-patient / Non-visit Dr. Tonya Dobbs Work Phone: [facility] Start: 02-17-2022 Non-patient / Non-visit Dr. Tonya Dobbs Work Phone: [facility] Start: 02-16-2022 Non-patient / Non-visit Dr. Tonya Dobbs Work Phone: [facility] Start: 02-16-2022 End: 02-23-2022 Evaluation and management of inpatient Dr. Louis Dobbs Work Phone: [facility] Start: 02-02-2022 ambulatory Louis palacios MD Work Phone: [facility] [place] Start: 12-20-2021 Non-patient / Non-visit Dr. Tonya Dobbs Work Phone: [facility] Start: 12-19-2021 Non-patient / Non-visit Dr. Tonya Dobbs Work Phone: [facility] Start: 12-18-2021 Non-patient / Non-visit Dr. Tonya Dobbs Work Phone: [facility] Start: 12-17-2021 Non-patient / Non-visit Dr. Tonya Dobbs Work Phone: [facility] Start: 12-16-2021 Non-patient / Non-visit Dr. Tonya Dobbs Work Phone: [facility] Start: 12-15-2021 Non-patient / Non-visit Dr. Tonya Dobbs Work Phone: [facility] Start: 12-14-2021 ambulatory Louis palacios MD Work Phone: Internal [facility] Comment on above: Epistaxis Start: 12-14-2021 Telephone encounter Louis akins MD Work Phone: Internal [facility] Comment on above: Release Of Medical R ecords Start: 12-14-2021 Non-patient / Non-visit Dr. Tonya Dobbs Work Phone: [facility] Start: 12-14-2021 End: 12-20-2021 Evaluation and management of inpatient [facility] Dob[facility] Start: 12-13-2021 Telephone encounter Louis akins MD Work Phone: Internal [facility] Comment on above: HHA[facility] services Start: 12-13-2021 End: 12-13-[address] Louis Dobbs Work Phone: [facility] Start: 12-10-2021 Telephone encounter Judy Older [employer]ER [employer].VP CLINICAL Work Phone: [facility] Comment on above: asking for verbal or david Start: 12-10-2021 End: 12-10-[address] Louis Dobbs Work Phone: [facility] Start: 12-06-2021 Refill Judy Older [employer] .VP CLINICAL Work Phone: Family [facility] Comment on above: Refill Request Start: 12-06-2021 End: 12-06-2021 Emergency department patient visit Dr. Louis Dobbs Work Phone: [facility] Start: 11-30-2021 ambulatory Louis palacios MD Work Phone: [facility] [place] Start: 11-23-2021 End: 11-23-[address] Louis Dobbs Work Phone: [facility] Start: 11-10-2021 End: 11-10-2021 Emergency department patient [facility] Dr. Louis Dob[facility] Start: 11-08-2021 End: 11-08-[address] Louis Dobbs Work Phone: [facility] Start: 11-02-2021 Telephone encounter Louis akins MD Work Phone: [facility] [place] Comment on above: verbal orders Start: 11-02-2021 End: 11-02-[address] Louis Dobbs Work Phone: [facility] Start: 10-29-2021 End: 10-29-[address] Louis Dobbs Work Phone: [facility] Start: 10-20-2021 End: 10-20-[address] Louis Dobbs Work Phone: [facility] Start: 10-12-2021 End: 10-12-2021 Emergency department patient [facility] Dr. Louis Dob[facility] Start: 10-01-2021 End: 10-01-[address] Louis Dobbs Work Phone: [facility] Start: 09-30-2021 Telephone encounter Louis akins MD Work Phone: [facility] [place] Comment on above: Medication Request Start: 09-13-2021 End: 09-13-[address] Louis Dobbs Work Phone: [facility] Start: 08-23-2021 End: 08-23-[address] Louis Dobbs Work Phone: [facility] Start: 08-09-2021 End: 08-09-[address] [facility] Start: 07-22-2021 End: 07-22-[address] Louis Dobbs Work Phone: [facility] Start: 07-16-[address] [facility] Start: 07-14-2021 End: 07-14-[address] Louis Dobbs Work Phone: [facility] Start: 07-07-[address] [facility] Date Procedure Procedure Detail Performing Clinician Start: 01-13-2025 CT cervical spine without contrast Dr. Louis Dobbs MD Work Phone: Start: 01-13-2025 CT of head without contrast Dr. Louis Dobbs MD Work Phone: Start: 12-09-2024 Dup-scan xtr veins complete bilateral study Judy Haywood [employer].VP CLINICAL Work Phone: Start: 09-26-2024 Cta hrt cornry art/bypass grfts contrst 3d post Shavon Valentin MD Work Phone: Start: 09-26-2024 Creatinine blood Shavon Valentin MD Work Phone: Start: 06-17-2024 PFIZER-BIONTECH COVID-19 VACCINE AGE 12+ YR (COMIRNATY) Judy Haywood [employer].VP CLINICAL Work Phone: Start: 06-17-2024 Lipid 1996 panel - Serum or Plasma Louis Dobbs MD Work Phone: Start: 07-24-2023 SARS-CoV-2 & FLU Antigen (Rapid) Dr. Sam Dobbs Work Phone: Start: 07-24-2023 Plain chest X-ray Dr. Louis Dobbs Work Phone: Start: 06-25-2023 CT of head without contrast Start: 01-11-2023 Us breast uni real time with image limited Silvia Yates APRN.CNP Work Phone: Start: 12-08-2022 Mammography Mammography Coordinator Start: 06-16-2022 Prothrombin time ERICK MIRZA Start: 06-16-2022 DISCHARGE PATIENT ERICK MIRZA Start: 06-16-2022 Prothrombin time ERICK MIRZA Start: 06-15-2022 NURSING COMMUNICATION ERICK MIRZA Start: 06-15-2022 DISCHARGE PATIENT ERICK MIRZA Start: 06-15-2022 Comprehensive metabolic panel ERICK GIFFORD Start: 06-15-2022 Ct head/brain w/o contrast material ERICK YUKI Start: 06-15-2022 Prothrombin time ERICK MIRZA Start: 06-14-2022 ADULT DIET ERICK YUKI Start: 06-14-2022 IP CONSULT TO PHARMACY ERICK YUKI Start: 06-14-2022 Assay of thyroid stimulating hormone tsh ERICK YUKI Start: 06-14-2022 Lipid panel ERICK MIRZA Start: 06-14-2022 Lipid 1996 panel - Serum or Plasma Louis Dobbs MD Work Phone: Start: 06-13-2022 ELEVATE HEELS OFF OF BED ERICK YUKI Start: 06-13-2022 HEAD OF BED 60 DEGREES OR LESS ERICK BHAKTA Start: 06-13-2022 NURSING COMMUNICATION ERICK MIRZA Start: 06-13-2022 TURN PATIENT ERICK MIRZA Start: 06-13-2022 Hemoglobin glycosylated a1c ERICK LANDEROS SERENA Start: 06-13-2022 Drug tst prsmv instrmnt chem analyzers pr date ERICK YUKI Start: 06-13-2022 Blood count complete automated ERICK BHAKTA Start: 06-13-2022 FULL CODE ERICK YUKI Start: 06-13-2022 IP CONSULT TO NEUROLOGY ERICK MIRZA Start: 06-13-2022 NURSING COMMUNICATION ERICK MIRZA Start: 06-13-2022 ADVANCE DIET TOLERATED (NURSING COMMUNICATION) ERICK MIRZA Start: 06-13-2022 NIHSS ERICK MIRZA Start: 06-13-2022 NURSING SWALLOW ASSESSMENT ERICK SHAVER IS Start: 06-13-2022 OT EVAL AND TREAT ERICK MIRZA Start: 06-13-2022 PROVIDE PATIENT EDUCATION MATERIALS ERICK MIRZA Start: 06-13-2022 PT EVAL AND TREAT ERICK MIRZA Start: 06-13-2022 IMAGE CONSULTANT EVAL AND TREAT ERICK MIRZA Start: 06-13-2022 TOBACCO CESSATION EDUCATION ERICK LYONS [...] SPEC IMEN Performed By: #### T SCR ####[facility] B[facility] [id number] Start: 10-07-2019 Mammography Louis Dobbs MD Work [...] Author Start: 06-17-2029 Lipid panel Lipid Screening [facility] Start: 12-10-2027 Diabetes Screening Diabetes Screening [facility] Start: 12-09-2027 HPV TESTING HPV TESTING [facility] Start: 12-09-2027 PAP TESTING PAP TESTING [facility] Start: 12-09-2027 Screening for malignant neoplasm of cervix [facility] Start: 06-17-2027 Diabetes Screening Diabetes Screening [facility] Start: 06-14-2027 Lipid panel Lipid Screening [facility] Start: 07-12-2026 Colonoscopy COLONOSCOPY [facility] Start: 07-12-2026 COLORECTAL CANCER SCREENING COLORECTAL CANCER SCREENING [facility] Start: 07-12-2026 Screening for malignant neoplasm of colon [facility] Start: 06-12-2026 Lipid 1996 panel - Serum or Plasma Lipid Screening [facility] Start: 06-12-2026 LIPID SCREEN LIPID SCREEN [facility] Start: 04-03-2026 Screening for malignant neoplasm of breast Mammogram Screening [facility] Start: 03-24-2026 Annual PCP Team Chronic Disease Visit Annual PCP Team Chronic Disease Visit [facility] Start: 02-04-2026 Annual PCP Team Chronic Disease Visit Annual PCP Team Chronic Disease Visit [facility] Start: 12-16-2025 BP Controlled (<130/80) BP Controlled (<130/80) [facility] Start: 12-16-2025 zzBP Controlled (<130/80) (Retired) zzBP Controlled (<130/80) (Retired) [facility] Start: 12-09-2025 Annual PCP Team Chronic Disease Visit Annual PCP Team Chronic Disease Visit [facility] Start: 12-09-2025 Creatinine measurement Serum Creatinine [facility] Start: 06-17-2025 Annual PCP Team Chronic Disease Visit Annual PCP Team Chronic Disease Visit [facility] Start: 06-17-2025 BP Controlled (<130/80) BP Controlled (<130/80) [facility] Start: 06-17-2025 Complete blood count Hemoglobin/Hematocrit [facility] Start: 06-17-2025 Hepatitis B Vaccine (1 of 3 - 19+ 3-dose series) Hepatitis B Vaccine (1 of 3 - 19+ 3-dose series) [facility] Comment on above: Postponed from 1986 (Declined at t his time) Start: 06-17-2025 Shingrix Vaccine (1 of 2) Shingrix Vaccine (1 of 2) [facility] Comment on above: Postponed from 2017 (Declined at t his time) Start: 11-11-2025 Urine microalbumin profile DTaP,Tdap,Td Vaccine (2 - Td or Tdap) [facility] Comment on above: Postponed from 05/07/2022 (Declined at t his time) Start: 06-17-2025 End: 06-17-2025 Patient encounter procedure 06/17/2025 10:20 AM EST Office Visit Internal Medicine [facility] [address] [place] [address] Louis Dobbs MD [address] [place] [address] Annual Medicare Wellness w/3 month follow-up [facility] [place] Comment on above: Annual Medicare Wellness w/3 month follo w-up Start: 06-16-2025 Diabetes Screening Diabetes Screening [facility] Start: 06-13-2025 DIABETES SCREEN DIABETES SCREEN [facility] Start: 06-13-2025 Diabetes Screening Diabetes Screening [facility] Start: 06-12-2025 Creatinine measurement Serum Creatinine [facility] Start: 04-12-2025 [facility] Start: 04-07-2025 Influenza vaccination Influenza Vaccine (#1) [facility] Start: 04-03-2025 End: 04-03-2025 Patient encounter procedure 04/03/2025 12:30 PM EDT Appointment Mammogram [address] [place] [address] : Encounter for screening mammogram for malignant neoplasm of breast [Z12.31] Mammogram Comment on above: : Encounter for screening mammogram for malignant neoplasm of breast [Z12.31] Start: 03-24-2025 End: 03-24-2025 Patient encounter procedure 03/24/2025 12:40 PM EDT Office Visit Internal Medicine [place] [address] [place] [address] Louis Dobbs MD [address] [place] [address] 3 month f/u [facility] [place] Comment on above: 3 month f/u Start: 01-13-2025 [facility] Start: 01-08-2025 End: 01-08-2025 Patient encounter procedure 01/08/2025 3:30 PM EDT Office Visit Vascular Surgery [address] [address] [facility] Comment on above: [facility] Start: 12-16-2024 End: 12-16-2024 Patient encounter procedure 12/16/2024 1:00 PM EDT Office Visit Internal [facility] [place] [address] [facility] [address] Judy Haywood, IRONER SOCK.VP CLINICAL [address] [place] [address] 6 month routine follow up [facility] [place] Comment on above: 6 month routine follow up Start: 08-07-2024 Medicare Advantage Annual Wellness Visit Medicare Advantage Annual Wellness Visit [facility] Start: 06-17-2024 End: 09-16-2024 Cobalamin (Vitamin B12) [Mass/volume] in Serum or Plasma [facility] Comment on above: Expected: 06/17/2024, Expires: Start: 06-17-2024 End: 09-16-2024 Ferritin [Mass/volume] in Serum or Plasma [facility] Comment on above: Expected: 06/17/2024, Expires: Start: 06-17-2024 End: 09-16-2024 Hemoglobin A1c in Blood [facility] Work Phone: Comment on above: Expected: 06/17/2024, Expires: Start: 06-17-2024 End: 09-16-2024 Iron and Iron binding capacity panel - Serum or Plasma [facility] Comment on above: Expected: 06/17/2024, Expires: Start: 06-17-2024 End: 09-16-2024 Lipid 1996 panel - Serum or Plasma [facility] Comment on above: Expected: 06/17/2024, Expires: Start: 06-17-2024 End: 06-17-2024 Patient encounter procedure 06/17/2024 9:20 AM EST Office Visit Internal Medicine [place] [address] [place] [address] Judy Haywood, IRONER SOCK.VP CLINICAL [address] [facility] [place] [address] physical [facility] [place] Comment on above: physical Start: 05-23-2024 Annual PCP Team Chronic Disease Visit Annual PCP Team Chronic Disease Visit [facility] Start: 05-23-2024 BP Controlled (<130/80) BP Controlled (<130/80) [facility] Start: 05-23-2024 Covid-19 Vaccine ( season) Covid-19 Vaccine ( season) [facility] Comment on above: Postponed from 04/07/2023 (Declined at t his time) Start: 05-23-2024 Hepatitis B Vaccine (1 of 3 - 19+ 3-dose series) Hepatitis B Vaccine (1 of 3 - 19+ 3-dose series) [facility] Comment on above: Postponed from 1986 (Declined at t his time) Start: 05-23-2024 Hepatitis B Vaccine (1 of 3 - 3-dose series) Hepatitis B Vaccine (1 of 3 - 3-dose series) [facility] Comment on above: Postponed from 1967 (Declined at t his time) Start: 05-23-2024 Shingrix Vaccine (1 of 2) Shingrix Vaccine (1 of 2) [facility] Comment on above: Postponed from 2017 (Declined at t his time) Start: 05-23-2024 Urine microalbumin profile DTaP,Tdap,Td Vaccine (2 - Td or Tdap) [facility] Comment on above: Postponed from 05/07/2022 (Declined at t his time) Start: 04-07-2024 Covid-19 Vaccine ( season) Covid-19 Vaccine () [facility] Start: 04-07-2024 Influenza vaccination Influenza Vaccine (#1) [facility] Start: 02-17-2024 Creatinine measurement Serum Creatinine [facility] Start: 02-17-2024 Serum Creatinine Serum Creatinine [facility] Start: 01-08-2024 DIABETES SCREEN DIABETES SCREEN [facility] Start: 12-12-2023 End: 12-12-2023 Patient encounter procedure 12/12/2023 2:30 PM EDT Office Visit OB/Gynecology [address] [place] [address] Silvia Yates APRN.VP CLINICAL [address] [place] [address] annual OB/Gynecology Comment on above: annual Start: 12-09-2023 Mammography [facility] Start: 12-09-2023 Screening for malignant neoplasm of breast [facility] Start: 10-25-2023 ANNUAL PCP TEAM CHRONIC DISEASE VISIT ANNUAL PCP TEAM CHRONIC DISEASE VISIT [facility] Start: 10-25-2023 BP CONTROLLED (<130/80) BP CONTROLLED (<130/80) [facility] Start: 07-25-2023 Patient discharge [facility] Start: 07-24-2023 Respiratory secretion precautions [facility] Start: 07-24-2023 Following clinical pathway protocol [facility] Start: 07-24-2023 Ambulation without limitation [facility] Start: 07-24-2023 Assessment of risk of venous thromboembolism [facility] Start: 07-24-2023 Catheterization of vein [facility] Start: 07-24-2023 Incentive spirometry [facility] Start: 07-24-2023 Insertion of catheter into peripheral vein [facility] Start: 07-24-2023 Oxygen therapy [facility] Start: 07-24-2023 Physiotherapy of chest [facility] Start: 07-24-2023 Providing care according to standard [facility] Start: 07-24-2023 Referral to occupational therapist [facility] Start: 07-24-2023 Referral to service [facility] Start: 07-24-2023 [facility] Start: 07-24-2023 Verification routine [facility] Start: 07-24-2023 Admission procedure [facility] Start: 07-24-2023 Hospital admission, emergency, from emergency room, medical nature [facility] Start: 07-24-2023 Consultation [facility] Start: 06-25-2023 [facility] Start: 06-16-2023 Complete blood count Hemoglobin/Hematocrit [facility] Start: 06-13-2023 HEMOGLOBIN/HEMATOCRIT HEMOGLOBIN/HEMATOCRIT [facility] Start: 06-07-2023 ANNUAL PCP TEAM CHRONIC DISEASE VISIT ANNUAL PCP TEAM CHRONIC DISEASE VISIT [facility] Start: 06-07-2023 BP CONTROLLED (<130/80) BP CONTROLLED (<130/80) [facility] Start: 05-23-2023 HPV TESTING HPV TESTING [facility] Start: 05-23-2023 PAP TESTING PAP TESTING [facility] Start: 04-07-2023 Covid-19 Vaccine () Covid-19 Vaccine () [facility] Start: 04-07-2023 Influenza vaccination [facility] Start: 10-19-2022 ANNUAL PCP TEAM CHRONIC DISEASE VISIT ANNUAL PCP TEAM CHRONIC DISEASE VISIT [facility] Start: 10-19-2022 BP CONTROLLED (<130/80) BP CONTROLLED (<130/80) [facility] Start: 06-10-2022 Suicide precautions [facility] Work Phone: Start: 06-08-2022 Suicide precautions [facility] Work Phone: Start: 05-07-2022 Tetanus vaccination TETANUS [facility] Start: 05-07-2022 Urine microalbumin profile [facility] Start: 04-07-2022 Influenza vaccination INFLUENZA (#1) [facility] Start: 04-06-2022 COVID-19 VACCINE (4 - Booster for Pfizer series) COVID-19 VACCINE (4 - Booster for Pfizer series) [facility] Start: 02-23-2022 Patient discharge [facility] Work Phone: Start: 02-23-2022 [facility] Work Phone: Start: 02-21-2022 Catheterization of vein [facility] Work Phone: Start: 02-21-2022 [facility] Work Phone: Start: 02-20-2022 Blood chemistry [facility] Work Phone: Start: 02-20-2022 Prothrombin time [facility] Work Phone: Start: 02-19-2022 Referral to gastroenterology service [facility] Work Phone: Start: 02-19-2022 Blood chemistry [facility] Work Phone: Start: 02-19-2022 Prothrombin time [facility] Work Phone: Start: 02-19-2022 [facility] Work Phone: Start: 02-18-2022 Care planning and problem solving actions [facility] Work Phone: Start: 02-18-2022 Blood chemistry [facility] Work Phone: Start: 02-18-2022 Prothrombin time [facility] Work Phone: Start: 02-17-2022 Enteric precautions [facility] Work Phone: Start: 02-17-2022 Blood chemistry [facility] Work Phone: Start: 02-17-2022 Prothrombin time [facility] Work Phone: Start: 02-17-2022 Thyroid stimulating hormone measurement [facility] Work Phone: Start: 02-17-2022 [facility] Work Phone: Start: 02-16-2022 Following clinical pathway protocol [facility] Work Phone: Start: 02-16-2022 Ambulation without limitation [facility] Work Phone: Start: 02-16-2022 Assessment of risk of venous thromboembolism [facility] Work Phone: Start: 02-16-2022 Catheterization of vein [facility] Work Phone: Start: 02-16-2022 Consultation [facility] Work Phone: Start: 02-16-2022 Continuous pulse oximetry [facility] Work Phone: Start: 02-16-2022 Inhalation therapy procedure [facility] Work Phone: Start: 02-16-2022 Insertion of catheter into peripheral vein [facility] Work Phone: Start: 02-16-2022 Measuring intake and output [facility] Work Phone: Start: 02-16-2022 Notification of physician [facility] Work Phone: Start: 02-16-2022 Oxygen therapy [facility] Work Phone: Start: 02-16-2022 Patient referral to dietitian [facility] Work Phone: Start: 02-16-2022 Providing care according to standard [facility] Work Phone: Start: 02-16-2022 Referral to occupational therapist [facility] Work Phone: Start: 02-16-2022 Referral to service [facility] Work Phone: Start: 02-16-2022 Respiratory therapy [facility] Work Phone: Start: 02-16-2022 Vital signs measurements [facility] Work Phone: Start: 02-16-2022 [facility] Work Phone: Start: 02-16-2022 Bacterial nucleic acid assay [facility] Work Phone: Start: 02-16-2022 Bacteria identified in Sputum by Culture [facility] Work Phone: Start: 02-16-2022 Influenza virus A and B and Respiratory syncytial virus RNA panel - Upper respiratory specimen by ANGELINE with probe detection [facility] Work Phone: Start: 02-16-2022 Verification routine [facility] Work Phone: Start: 02-16-2022 Admission procedure [facility] Work Phone: Start: 02-16-2022 Streptococcus pneumoniae antigen assay [facility] Work Phone: Start: 02-16-2022 [facility] Work Phone: Start: 02-16-2022 End: 02-16-2022 Blood culture [facility] Work Phone: Start: 02-16-2022 End: 02-16-2022 [facility] Work Phone: Start: 01-07-2022 HEMOGLOBIN/HEMATOCRIT HEMOGLOBIN/HEMATOCRIT [facility] Start: 01-07-2022 SERUM CREATININE SERUM CREATININE [facility] Start: 12-20-2021 Patient discharge [facility] Work Phone: Start: 12-19-2021 [facility] Work Phone: Start: 12-19-2021 Care planning and problem solving actions [facility] Work Phone: Start: 12-18-2021 End: 12-19-2021 [facility] Work Phone: Start: 12-14-2021 Following clinical pathway protocol [facility] Work Phone: Start: 12-14-2021 Bacteria identified in Urine by Culture Urine Culture [facility] Work Phone: Start: 12-14-2021 Urine culture Urine Culture [facility] Work Phone: Start: 12-14-2021 Assessment of risk of venous thromboembolism [facility] Work Phone: Start: 12-14-2021 Catheterization of vein [facility] Work Phone: Start: 12-14-2021 Incentive spirometry [facility] Work Phone: Start: 12-14-2021 Insertion of catheter into peripheral vein [facility] Work Phone: Start: 12-14-2021 Measuring intake and output [facility] Work Phone: Start: 12-14-2021 Patient referral to dietitian [facility] Work Phone: Start: 12-14-2021 Providing care according to standard [facility] Work Phone: Start: 12-14-2021 Provision of activity privileges [facility] Work Phone: Start: 12-14-2021 Referral to occupational therapist [facility] Work Phone: Start: 12-14-2021 End: 12-14-2021 Referral to service [facility] Work Phone: Start: 12-14-2021 Admission procedure [facility] Work Phone: Start: 12-14-2021 Patient referral to dietitian [facility] Work Phone: Start: 11-30-2021 End: 01-30-2022 CBC panel - Blood by Automated count CBC Lab Routine Hypertensive kidney disease with stage 3 chronic kidney disease (HCC) Expected: 11/30/2021, Expires: 01/30/2022 [facility] Work Phone: Comment on above: Expected: 11/30/2021, Expires: 2 Start: 11-30-2021 End: 01-30-2022 Renal function 2000 panel - Serum or Plasma RENAL FUNCTION PANEL Lab Routine Hypertensive kidney disease with stage 3 chronic kidney disease (HCC) Expected: 11/30/2021, Expires: 01/30/2022 [facility] Work Phone: Comment on above: Expected: 11/30/2021, Expires: 2 Start: 11-30-2021 End: 01-30-2022 SCHEDULE LAB TESTING SCHEDULE LAB TESTING Lab Routine Expected: 11/30/2021, Expires: 01/30/2022 [facility] Work Phone: Comment on above: Expected: 11/30/2021, Expires: 2 Start: 07-25-2021 COVID-19 VACCINE (3 - Booster for Pfizer series) COVID-19 VACCINE (3 - Booster for Pfizer series) [facility] Start: 04-19-2021 COVID-19 VACCINE (3 - Booster for Pfizer series) COVID-19 VACCINE (3 - Booster for Pfizer series) [facility] Start: 10-06-2020 Mammography MAMMOGRAM [facility] Start: 2017 SHINGRIX VACCINE (1 of 2) SHINGRIX VACCINE (1 of 2) [facility] Start: 2017 Zoster vaccine hzv live for subcutaneous use ZOSTER (SHINGLES) VACCINE (1 of 2) [facility] [place] Start: 07-12-2017 Screening for malignant neoplasm of colon COLORECTAL CANCER SCREENING DISCUSSION [facility] [place] Start: 06-18-2017 PNEUMOCOCCAL (2 - PCV) PNEUMOCOCCAL (2 - PCV) [facility] Start: 06-18-2017 Pneumococcal vaccination Pneumococcal Vaccine (2 - PCV) [facility] Start: 05-09-2017 End: 05-09-2017 Appointment [facility] Work Phone: Start: 03-01-2017 End: 03-01-2017 Physical Therapy General [facility], [address] [place] [address], [id number] [facility] Work Phone: Start: 11-28-2015 FECAL OCCULT BLOOD FECAL OCCULT BLOOD [facility] Start: 11-28-2015 Screening for malignant neoplasm of colon Fecal Occult Blood [facility] Start: 2012 COLOGUARD (FIT-DNA) COLOGUARD (FIT-DNA) [facility] Start: [address] COLONOGRAPHY [facility] Start: 2012 Screening for malignant neoplasm of colon [facility] Start: 2012 SIGMOIDOSCOPY SIGMOIDOSCOPY [facility] Start: 2007 Lipid panel LIPID SCREENING [facility] [place] Start: 1997 Zoledronic acid therapy ALPHA-1 ANTITRYPSIN DEFICIENCY SCREENING [facility] Start: 1988 Screening for malignant neoplasm of cervix CERVICAL CANCER SCREENING DISCUSSION [facility] [place] Start: 1986 Hepatitis B vaccination HEP B VACCINE (1 of 3 - 19+ 3-dose series) [facility] [place] Start: 1986 Hepatitis B Vaccine (1 of 3 - 19+ 3-dose series) Hepatitis B Vaccine (1 of 3 - 19+ 3-dose series) [facility] Start: 1985 BP CONTROLLED (<130/80) BP CONTROLLED (<130/80) [facility] Start: 1982 HIV screening HIV SCREENING DISCUSSION [facility] [place] Start: 1967 HEPATITIS B (1 of 3 - 3-dose series) HEPATITIS B (1 of 3 - 3-dose series) [facility] Start: 1967 Hepatitis B Vaccine (1 of 3 - 3-dose series) Hepatitis B Vaccine (1 of 3 - 3-dose series) [facility] Start: 1967 Hepatitis C screening HEPATITIS C VIRUS SCREENING [facility] [place] Alanine aminotransfe rase [Enzymatic activity/volume] in Serum or Plasma [facility] Work Phone: Albumin [Mass/volume ] in Serum or Plasma [facility] Work Phone: Alkaline phosphatase [Enzymatic activity/volume] in Serum or Plasma [facility] Work Phone: Anion gap measurement [facility] Work Phone: Aspartate aminotransferase [Enzymatic activity/volume] in Serum or Plasma [facility] Work Phone: Bacteria identified in Blood by Culture Blood Culture [facility] Work Phone: Bacterial nucleic ac id assay [facility] Work Phone: Bilirubin, total measurement [facility] Work Phone: Bilirubin.direct [Mass/volume] in Serum or Plasma [facility] Work Phone: Blood ammonia measurement [facility] Work Phone: Blood culture [facility] Work Phone: BUN/Creatinine ratio [facility] Work Phone: Calcium [Mass/volume ] in Serum or Plasma [facility] Work Phone: Carbon dioxide, tota l [Moles/volume] in Serum or Plasma [facility] Work Phone: Chloride [Moles/volu me] in Serum or Plasma [facility] Work Phone: Creatinine [Moles/vo lume] in Serum or Plasma [facility] Work Phone: End: 02-15-2025 DBT Breast - bilateral screening KATHERINE SCREENING W ABHISHEK Radiology Routine Encounter for screening mammogram for breast cancer 1 Occurrences starting 01/17/2024 until 02/15/2025 [facility] Work Phone: Comment on above: 1 Occurrences starting 01/17/2024 until 02/15/2025 End: 01-16-2026 DBT Breast - bilateral screening KATHERINE SCREENING W ABHISHEK Radiology Routine Encounter for screening mammogram for breast cancer 1 Occurrences starting 12/17/2024 until 01/16/2026 [facility] Work Phone: Comment on above: 1 Occurrences starting 12/17/2024 until 01/16/2026 End: 04-23-2026 DBT Breast - bilateral screening KATHERINE SCREENING W ABHISHEK Radiology Routine Encounter for screening mammogram for malignant neoplasm of breast 1 Occurrences starting 03/24/2025 until 04/23/2026 [facility] Work Phone: Comment on above: 1 Occurrences starting 03/24/2025 until 04/23/2026 DBT Breast - bilater al screening KATHERINE SCREENING W ABHISHEK Radiology Routine Encounter for screening mammogram for malignant neoplasm of breast 04/03/2025 2:45 PM EDT [facility] Work Phone: Folate [Mass/volume] in Serum or Plasma [facility] Work Phone: Glucose [Mass/volume ] in Serum or Plasma [facility] Work Phone: Hematocrit [Volume Fraction] of Blood [facility] Work Phone: Hemoglobin [Mass/vol ume] in Blood [facility] Work Phone: INR in Blood by Coagulation assay [facility] Work Phone: Legionella Antigen Legionella Antigen [facility] Work Phone: Legionella pneumophi la Ag [Presence] in Urine [facility] Work Phone: Leukocytes [#/volume ] in Blood [facility] Work Phone: Lipid 1996 panel - S lovely or Plasma [facility] Work Phone: Magnesium [Mass/volu me] in Serum or Plasma [facility] Work Phone: End: 01-07-2024 KATHERINE DIAGNOSTIC BILATERAL KATHERINE DIAGNOSTIC BILATERAL Radiology Routine Mastalgia Family history of breast cancer in first degree relative Family history of breast cancer in male 1 Occurrences starting 12/08/2022 until 01/07/2024 [facility] Work Phone: Comment on above: 1 Occurrences starting 12/08/2022 until 01/07/2024 Mean corpuscular hemoglobin concentration determination [facility] Work Phone: Mean corpuscular hemoglobin determination [facility] Work Phone: Measurement of renal function [facility] Work Phone: Measurement of substance [facility] Work Phone: Neutrophil count [facility] Work Phone: Neutrophil percent differential count [facility] Work Phone: PAP TEST PAP TEST Lab Howie hahn Encounter for gynecological examination with abnormal finding Encounter for screening for human papillomavirus (HPV) Pap smear for cervical cancer screening 12/08/2022 2:02 PM EDT [facility] Work Phone: Patient Education [facility] Work Phone: Patient referral [facility] Work Phone: Platelets [#/volume] in Blood [facility] Work Phone: Potassium [Moles/vol ume] in Serum or Plasma [facility] Work Phone: Prothrombin time [facility] Work Phone: Red blood cell count [facility] Work Phone: Red cell distributio n width determination [facility] Work Phone: Respiratory pathogen s DNA and RNA panel - Respiratory specimen by ANGELINE with probe detection [facility] End: 03-04-2023 Screening mammography bi 2-view breast inc cad KATHERINE SCREENING Radiology Routine Encounter for screening mammogram for breast cancer 1 Occurrences starting 02/02/2022 until 03/04/2023 [facility] Work Phone: Comment on above: 1 Occurrences starting 02/02/2022 until 03/04/2023 Sodium [Moles/volume ] in Serum or Plasma [facility] Work Phone: Streptococcus pneumo niae Antigen (M Streptococcus pneumoniae Antigen (M [facility] Work Phone: Streptococcus pneumo niae antigen assay [facility] Work Phone: Thiamine measurement [facility] Work Phone: Thyroid stimulating hormone measurement [facility] Work Phone: Total protein measurement [facility] Work Phone: Urea nitrogen [Mass/volume] in Serum or Plasma [facility] Work Phone: End: 01-07-2024 US BREAST LTD RIGHT [facility] Work Phone: Comment on above: 1 Occurrences starting 12/08/2022 until 01/07/2024 Heart [facility] End: 12-09-2025 US Lower extremity artery - bilateral PVR LEG [facility] Routine Bilateral lower extremity pain 1 Occurrences starting 12/09/2024 until 12/09/2025 [facility] Work Phone: Comment on above: 1 Occurrences starting 12/09/2024 until 12/09/2025 End: 12-09-2025 US Lower extremity veins - bilateral US LEG VEIN DVT [facility] STAT Bilateral lower extremity pain Pedal edema 1 Occurrences starting 12/09/2024 until 12/09/2025 [facility] Comment on above: 1 Occurrences starting 12/09/2024 until 12/09/2025 Vitamin B12 measurement [facility] Work Phone: [facility] Immunizations Immunization Date Immunization Notes Care Provider Elias denise 06-17-2024 COVID-19 vaccine, ag e 12+ yr (PFIZER-BIONTFuze [facility]) Judy Haywood APRN.CNP Work Phone: [facility] 06-17-2024 influenza, seasonal, injectable Judy Joe [employer]VP [employer]ICAL Work Phone: [facility] 06-17-2024 influenza virus vaccine, unspecified formulation Judy Joe [employer] Work Phone: [facility] 05-23-2023 influenza, injectabl e, quadrivalent, contains preservative Judy Older [employer] Work Phone: [facility] 05-23-2023 pneumococcal (PCV20) vaccine, 20 valent (PREVNAR 20) Judy Older [employer] Work Phone: [facility] 05-23-2023 influenza virus vaccine, unspecified formulation Lily Camarena MA [facility] 07-26-2022 COVID-19 vaccine, ag e 12+ yr, bivalent (MODERNA) Judy Older [employer] Work Phone: [facility] 06-07-2022 influenza, injectabl e, quadrivalent, contains preservative Louis Dobbs MD Work Phone: [facility] Work Phone: 06-07-2022 influenza virus vaccine, unspecified formulation Louis Dobbs MD Work Phone: [facility] 02-09-2022 COVID-19 original vaccine, full dose, monovalent (MODERNA) Louis Dobbs MD Work Phone: [facility] Work Phone: 06-14-2021 influenza, injectabl e, quadrivalent, contains preservative Louis Dobbs MD Work Phone: [facility] Work Phone: 06-14-2021 influenza, injectabl e, quadrivalent, preservative free [facility] 06-14-2021 influenza, seasonal, injectable Dr. Louis Dobbs Work Phone: [facility] 02-22-2021 COVID-19 vaccine, ag e 12+ yr (SimuForm-KulizaNTFuze - PURPLE TOP) Louis Dobbs MD Work Phone: [facility] 01-07-2021 COVID-19 vaccine, ag e 12+ yr (PFIZER-BIONTFuze - PURPLE TOP) Louis Dobbs MD Work Phone: [facility] 10-08-2020 influenza, injectabl e, quadrivalent, preservative free [facility] 10-08-2020 influenza, seasonal, injectable Dr. Louis Dobbs Work Phone: [facility] 10-08-2020 influenza, seasonal, injectable, preservative free Louis Dobbs MD Work Phone: [facility] Work Phone: 05-19-2019 Influenza, injectabl e, [place] Canine Kidney, preservative free, quadrivalent Louis Dobbs MD Work Phone: [facility] Work Phone: 05-14-2018 influenza, injectabl e, quadrivalent, contains preservative Louis Dobbs MD Work Phone: [facility] Work Phone: 04-15-2017 influenza, seasonal, injectable Louis Dobbs MD Work Phone: [facility] 06-18-2016 pneumococcal polysaccharide vaccine, 23 valleticia Dobbs MD Work Phone: [facility] Work Phone: 04-17-[address] Louis Dobbs Work Phone: [facility] 04-17-2016 influenza, seasonal, injectable, preservative free Louis Dobbs MD Work Phone: [facility] Work Phone: 04-16-2016 influenza, injectabl e, quadrivalent, contains preservative Louis Dobbs MD Work Phone: [facility] 08-18-2015 pneumococcal polysaccharide vaccine, 23 valleticia Dobbs MD Work Phone: [facility] 06-10-2015 influenza, seasonal, injectable Louis Dobbs MD Work Phone: [facility] 07-24-2013 influenza virus vaccine, unspecified formulation Louis Dobbs MD Work Phone: [facility] Work Phone: 05-07-2012 tetanus toxoid, redu ronna diphtheria toxoid, and acellular pertussis vaccine, adsorbed Louis Dobbs MD Work Phone: [facility] Work Phone: 11-05-2001 tetanus and diphther ia toxoids, not adsorbed, for adult use Louis Dobbs MD Work Phone: [facility] Work Phone: Payers Date Payer Category Payer Medicaid (Managed Care) [facility] [id number] 2024 Self-pay [id number] 2024 Unknown [id number] 2022 Medicare (Managed Care) 1.2. [id number] 2022 Unknown [id number]. [id number] 2022 Medicare [id number] 2016 Medicaid [id number] 2016 Medicare [id number] 2016 Medicare UHC MEDICARE MYC ARE UHC MEDICARE [id number] 2016-Present [phone] [address] [place] [address] Medicare [id number] 2016 Unknown [id number] 1967 Unknown [id number] 2.840.1.496390.3.579.2. 204 1967 Unknown [id number] 2.0.1.093515.3.579.2. 594 1967 Unknown [id number] 2.840.1.325321.3.579.2. 594 Medicare MEDICARE PART A B [id number] Unknown [id number] 2.840.1.757819.3.579.2. 462 Unknown [id number] 2.840.1.471333.3.579.2. 462 Unknown [id number] 2.840.1.230023.3.579.2. 462 Unknown [id number] 2.16840.1.830453.3.579.2. 462 Unknown [id number] 2.16840.1.384206.3.579.2. 462 Unknown [id number] 2.16840.1.894525.3.579.2. 462 Unknown [id number] 2.16840.1.965391.3.579.2. 462 Unknown [id number] 2.16840.1.659835.3.579.2. 462 Unknown [id number] 2.16.840.1.352560.3.579.2. 462 Unknown [id number] 2.16.840.1.081772.3.579.2. 462 Unknown [id number] 2.16.840.1.036631.3.579.2. 462 Unknown [id number] 2.16.840.1.128290.3.579.2. 462 Unknown [id number] 2.16.840.1.776231.3.579.2. 462 Unknown [id number] 2.16.840.1.213304.3.579.2. 462 Unknown [id number] 2.16.840.1.285863.3.579.2. 462 Unknown [id number] 2.16.840.1.393866.3.579.2. 462 Unknown [id number] 2.16.840.1.742918.3.579.2. 462 Unknown [id number] 2.16.840.1.924865.3.579.2. 462 Unknown [id number] 2.16.840.1.987355.3.579.2. 462 Unknown [id number] 2.16.840.1.456457.3.579.2. 462 Unknown [id number] 2.16.840.1.719948.3.579.2. 462 Unknown [id number] 2.16.840.1.163985.3.579.2. 462 Social History Date Type Detail Facility Start: 02-22-2021 End: 03-24-2025 Tobacco smoking status NHIS Ex-smoker [facility] Work Phone: Start: 1990 History of tobacco use Cigarette Smo ker [facility] Work Phone: Start: 02-22-2021 End: 04-03-2025 Cigarettes smoked current (pack per day) - Reported 0.5 [facility] Work Phone: Start: 02-22-2021 End: 03-24-2025 Tobacco use and exposure Smokeless tobacco non-user [facility] Work Phone: Start: 02-22-2021 End: 03-24-2025 Alcohol intake Current non-drinker of alcohol (finding) [facility] Start: 02-22-2021 Tobacco Comment quit 2020 [facility] Start: 1965 Sex Assigned At Not on file [facility] Start: 10-09-2021 End: 06-07-2022 Exposure to SARS-CoV-2 (event) Not sure [facility] Work Phone: Start: 11-02-2021 End: 07-25-2023 Tobacco smoking status NHIS Unknown if ever smoked [facility] Start: 07-24-2019 None [facility] Start: 07-24-2019 Spouse/ Signif icant Other [facility] Start: 10-09-2020 Cigarettes [facility] Start: 1965 Sex Assigned At Female W [facility] Start: 1990 History of tobacco use Current smoke r [facility] Work Phone: Start: 05-02-2022 End: 05-12-2022 Exposure to SARS-CoV-2 (event) Unable to assess [facility] Work Phone: Start: 06-07-2022 End: 04-12-2025 Tobacco smoking status NHIS Smokes tobacco daily [facility] Work Phone: Start: 12-08-2022 End: 04-03-2025 Tobacco use panel [facility] Work Phone: Start: 07-08-2012 Adult Depression Screening Assessment 0 [facility] Work Phone: How often to you hav e a drink containing alcohol? Never [facility] Start: 08-14-2024 End: 10-23-2024 Sex Female (finding) [facility] Medical Equipment Procedure Code Equipment Code Equipment Origin al Text Equipment Identifier Dates Coil Target 2.5m m 360d 4cm Embolization Detachable Ultra - [id number] Start: 10-17-2020 Coil Target 3mm 360d 4cm Embolization Detachable Ultra - [id number] Start: 10-17-2020 Coil Target 2mm 360d 3cm Embolization Detachable Ultra - [id number] Start: 10-17-2020 Coil Target 2.5m m 360d 4cm Embolization Detachable Ultra - [id number] Start: 10-17-2020 Coil Target 5mm 360d 10cm Embolization Detachable Soft - [id number] Start: 10-17-2020 Device Angio-Sea l Vip Bondek-Plus 8fr .038in Polyglyd 70cm Closure - [id number] Start: 10-17-2020 Coil Target 2mm 360d 4cm Embolization Detachable Ultra - [id number] Start: 10-17-2020 Coil Target 4mm 360d 8cm Embolization Detachable Soft - [id number] Start: 10-17-2020 Coil Target 3mm 360d 10cm Embolization Detachable Ultra - [id number] Start: 10-17-2020 Coil Target 4mm 360d 15cm Embolization Detachable Ultra - [id number] Start: 10-17-2020 Coil Target 4mm 360d 15cm Embolization Detachable Soft - [id number] Start: 10-17-2020 Coil Target 5mm 360d 15cm Embolization Detachable Soft - [id number] Start: 10-17-2020 Coil Target 5mm 360d 15cm Embolization Detachable Soft - [id number] Start: 10-17-2020 Lead-07/28/[id number] Start: 07-28-2009 Comment on above: Description: PACERMA KER LEAD Lead-07/04/[id number]_imp Start: 07-04-2011 Comment on above: Description: PACEMAK ER LEAD Pacemaker-07/04/[id number]_imp Sta rt: 07-04-2011 Stent Nf [place] 3.0x21mm No Tip - [id number] Start: 10-17-2020 Stent Nf [place] 3.0x21mm No Tip - [id number] Start: 10-17-2020 Stent Nf [place] 3.0x24mm No Tip - [id number] Start: 10-17-2020 Valve-07/23/2009 [id number] Start: 07-23-2009 [facility] [place] FDA Start: 07-28-2009 [...] ASSURIY PACEMAKER FDA Start: 09-21-2020 Pacemaker-2210 Accent [id number] Start: 07-04-2011 [facility] [place] FDA Start: 07-28-2009 [...] Assessment Result Facility 07-25-2023 Functional status Ambulates [facility] Work Phone: 02-23-2022 Functional status Up ad sintia [facility] Work Phone: 02-22-2022 Functional status Tolerates Activity Well [facility] Work Phone: 12-20-2021 Functional status Ambulates [facility] Work Phone: 12-15-2021 Functional status Activity Abili ty With Assist of 1 [facility] Work Phone: 12-14-2021 Functional status Ambulates;Bath room Privilege [facility] Work Phone: 11-06-2020 Are you deaf, or do you have serious difficulty hearing No 11/06/2020 7:08 PM Mulu Brock, PRAVIN No [facility] 11-06-2020 Are you blind, or do you have serious difficulty seeing, even when wearing glasses No 11/06/2020 7:08 PM Mulu Brock, RN No [facility] 11-06-2020 Do you have serious difficulty walking or climbing stairs Yes 11/06/2020 7:08 PM Mulu Brock, RN Yes [facility] 11-06-2020 Do you have difficul ty dressing or bathing Yes 11/06/2020 7:08 PM EDT Mulu Nielsen, RN Yes [facility] 11-06-2020 Because of a physica l, mental, or emotional condition, do you have difficulty doing errands alone such as visiting a physician's office or shopping Yes 11/06/2020 7:08 PM EDT Mulu Nielsen, RN Yes [facility] Mental Status Date Assessment Result Facility 04-12-2025 Cognitive function Level Of Cons ciousness Awake;Alert;Appropriate [facility] Work Phone: 07-25-2023 Cognitive function Voice/Name [facility] Work Phone: 06-25-2023 Cognitive function Level Of Cons ciousness Awake;Alert;Appropriate [facility] Work Phone: 05-30-2022 Cognitive function Level Of Cons ciousness Awake;Alert;Appropriate;Fol lows Commands [facility] Work Phone: 02-22-2022 Cognitive function Voice/Name [facility] Work Phone: 02-16-2022 Cognitive function Level Of Cons ciousness Drowsy;Responds to painful stimuli [facility] Work Phone: 12-20-2021 Cognitive function Voice/Name [facility] Work Phone: 12-15-2021 Cognitive function Voice/Name [facility] Work Phone: 11-06-2020 Because of a physica l, mental, or emotional condition, do you have serious difficulty concentrating, remembering, or making decisions Yes 11/06/2020 7:08 PM EDT Mulu Nielsen, RN Yes [facility] Clinical Notes 07-23-2009 to 04-12-2025 Enio Ridley Mammo Tech - 04/03/2025 12:30 PM Louis Agustin MD - 03/24/2025 12:53 PM EDTTelephone Encounter - Karen Durham LPN - 02/11/2025 11:04 AM EDTPatient Instructions Note Date & Type Note Facility 04-12-2025 Discharge summary [facility] 04-03-2025 History of Present illness Narrative Radiology Service Progress Note PATIENT NAME: Froilan [...] PATIENT PRESENTS WITH AN IMPLANTABLE OR ATTACHED TAILOR APPRENTICE: No RADIOLOGY DEPARTMENT: Mammography PERIPHERAL IV DATA: Not applicable SIGNED BY: Jonathan Jewell April 03, 2025 2:24 PM documented in this encounter [facility] 04-03-2025 Note HNO ID: [id number] Author: ENIO RIDLEY Mammo Tech Service: ? [...] PATIENT PRESENTS WITH AN IMPLANTABLE OR ATTACHED TAILOR APPRENTICE: No RADIOLOGY DEPARTMENT: Mammography PERIPHERAL IV DATA: Not applicable SIGNED BY: Enio Ridley DNsolution April 03, 2025 2:24 PM [facility] 03-24-2025 Note HNO ID: [id number] Author: LOUIS DOBBS MD Service: ? Author Type: Physician Type: Progress Notes Filed: 03/24/2025 13:59 Note Text: Subjective Froilan García is a 59 year old female. Patient presents with: F/U 3 Month Patient was seen by our PHLEBOTOMIST MEDICAL LAB ASSISTANT 02/04/25 for gait abnormality. She was trying [...] time. 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 [facility] 03-24-2025 History of Present illness Narrative Subjective Froilan García is a 59 year old female. Patient presents with: F/U 3 Month Patient was seen by our PHLEBOTOMIST MEDICAL LAB ASSISTANT 02/04/25 for gait abnormality. She was trying [...] time. 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 Author Type: Nurse Practitioner Type: Progress Notes Filed: 02/28/2025 09:14 Note Text: Functional capacity evaluation completed by Occupational Health. Results reviewed and consistent with requirements for power mobility device Judy Haywood APRN.VP CLINICAL [facility] 02-13-2025 Procedure note [facility] 02-11-2025 Telephone encounter Note Order has been placed and filed and faxed to [facility] to schedule locally for functional capacity testing. [facility] to call patient with appt. Karen Durham LPN [facility] 02-11-2025 Miscellaneous Notes Order has been placed and filed and faxed to [facility] to schedule locally for functional capacity testing. [facility] to call patient with appt. Karen Durham LPN PATIENT needs an other for a functional capacity test and needs scheduled as soon as we can. Please call patient when scheduled Karen Durham LPN documented in this encounter [facility] 02-11-2025 Telephone encounter Note PATIENT needs an other for a functional capacity test and needs scheduled as soon as we can. Please call patient when scheduled Karen Durham LPN [facility] 02-11-2025 Telephone encounter Note Patient scheduled with me today at 1 pm for mobility exam for scooter. I just saw her for this last week, the forms can be completed from that encounter. Judy Haywood APRN.VP CLINICAL [facility] 02-11-2025 Miscellaneous Notes Patient scheduled with me today at 1 pm for mobility exam for scooter. I just saw her for this last week, the forms can be completed from that encounter. Judy Haywood APRN.VP CLINICAL documented in this encounter [facility] 02-04-2025 Telephone encounter Note Patient calls to let provider know that her orders for power operated vehicle needs to be sent to [facility]. She has checked with insurance and the chair would be covered through them. Patient requests orders be faxed with a note saying their billing needs to go through [facility] Medicaid. Faxed with request to [phone]. Confirmation that fax when through received. PH: [phone]. Nothing further needed at this time. Closing TE. Kristy Blanco RN [facility] 02-04-2025 Miscellaneous Notes Patient calls to let provider know that her orders for power operated vehicle needs to be sent to [facility]. She has checked with insurance and the chair would be covered through them. Patient requests orders be faxed with a note saying their billing needs to go through [facility] Medicaid. Faxed with request to [phone]. Confirmation that fax when through received. PH: [phone]. Nothing further needed at this time. Closing TE. Kristy Blanco RN documented in this encounter [facility] 02-04-2025 Instructions Judy Haywood APRN.DANNY - 02/04/2025 [...] with this referral. documented in this encounter [facility] 02-04-2025 Note HNO ID: [id number] Author: JUDY HAYWOOD APRN.DANNY Service: ? Author Type: Nurse Practitioner Type: Progress Notes Filed: 02/11/2025 10:55 Note Text: CC: Patient presents with: Neuropathy: Bilateral foot pain, and strokes discuss getting scooter HPI Recording using ambient AI software for draft documentation of the visit was discussed with the patient/authorized sales development representative; all questions welcomed and answered. 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 Presumed nfective endocarditis, treated with IV antibiotics, complicated by a stroke. Underwent MVR (#27 Medtronic Velasco bioprosthesis) with Dr Stephan Morales at [facility] on 07/23/2009. Moderate dysplasia of cervix Other and unspecified mitral valve diseases 11/27/2008 Rheumatic valvular heart disease. Pacemaker malfunction 07/01/2011 Paroxysmal atrial fibrillation (HCC) 10/31/2013 Primary hypertension Psychosis (HCC) 10/01/2014 Dr[facility] Jonathon Kulk[facility] Trilafon at . Sick sinus syndrome ([facility]) 2008 PPM Sigmoid diverticulitis 08/11/2016 colon narrowing, [...] PICC INSERTION RADIO 10/26/2020 NIL ANEURYSM COILING FOOD SERVICE LEAD Left 10/17/2020 le (more content not included)... [facility] 02-04-2025 History of Presen t illness Narrative CC: Patient presents with: Neuropathy: Bilateral foot pain, and strokes discuss getting scooter HPI Recording using ambient Epigami software for draft documentation of the visit was discussed with the patient/authorized sales development representative; all questions welcomed and answered. Patient/authorized sales development representative agreed to proceed Froilan García is [...] Agoraphobia with panic disorder 12/19/2006 Counselor from [facility] Anemia 2013 Asthma with COPD with exacerbation (HCC) Bipolar disorder (HCC) 2000 Cerebral aneurysm (HCC) 10/11/2020 Chronic diarrhea [...] aneurysm (HCC) 10/11/2020 stented, coiled x 2 group home (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 anticoagulants 11/23/2008 Menorrhagia 2012 Mitral regurgitation 11/27/2008 Rheumatic valvular heart disease. Presumed nfective endocarditis, treated with IV antibiotics, complicated by a stroke. Underwent MVR (#27 Medtronic Velasco bioprosthesis) with Dr Stephan Morales at [facility] on 07/23/2009. Moderate dysplasia of cervix Other [...] PICC INSERTION RADIO 10/26/2020 NIL ANEURYSM COILING FOOD SERVICE LEAD Left 10/17/2020 left ant. cerebral art; basilar [...] which included preparing to see the patient, ubai-mi-lrio patient care, completing clinical documentation, performing a medically appropriate examination, counseling and educating the patient/family/caregiver, ordering medications, tests, or procedures, and care coordination (not separately reported). Prescription instructions reviewed with patient as applicable. Potential red flag symptoms discussed with the patient. Reviewed appropriate action plan to take if red flag symptoms occur. Patient agreeable to treatment plan. Judy Haywood APRN.VP CLINICAL documented in this encounter [facility] 01-13-2025 Radiology Diagnostic study note [facility] Services [address], [place] [address] Spine Cervical without Contras MR#: [id number] Acct: [id number] Name: FROILAN GARCÍA Rep #: [id number] : 1965 F 59 From: Valentina Baker MD PCP: Dr. Louis Dobbs MD Status: P RE ER Study:Spine Cervical without Contras Date of Exam: 01/13/25 Exam# [id number] Ordering Dr: Peter Blue DO PROCEDURE: SPINE [...] ACUTE CERVICAL FRACTURE. DEGENERATIVE CHANGES. Reading Location: [facility] CC: Dr. Hermila Blue DO; Dr. Louis Dobbs MD ~ 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: Signed [facility] 01-13-2025 Radiology Diagnostic study note [facility] Imaging Services [address] [place], [place] [id number] Brain/Head without Contrast MR#: [id number] Acct: [id number] Name: FROILAN GARCÍA Rep #: [id number] : 1965 F 59 From: Saad Lau MD PCP: Dr. Louis Dobbs MD Status: P RE ER Study:Brain/Head without Contrast Date of Exa m: 01/13/25 Exam# [id number] Ordering Dr: Peter Blue DO PROCEDURE: BRAIN/HEAD [...] aneurysmal clipping in the region of the oqqhzu-fg-Lshinp as well as the basilartip. This causes beam hardening artifact. Old bilateral cortical infarcts. CSF Spaces: Moderate generalized cerebral atrophy Sinuses/Mastoids: Unremarkable Bones: Unremarkable CT/Brain/Head without Contrast IMPRESSION: CHRONIC CHANGES. NO ACUTE FINDINGS. Prior aneurysmal clipping in the region of the bgfdiw-km-Bitumx as well as the basilar tip. Reading Location: [facility] CC: Dr. Hermila Blue DO; Dr. Luois Dobbs MD ~ 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: Signed [facility] 01-10-2025 Telephone encounter Note Mailed letter to patient Francesdorian Peterson MA [facility] 01-10-2025 Miscellaneous Notes Mailed letter to patient Francesdorian Peterson MA Letter printed. Patient calls and [...] Melanie Vences RN documented in this encounter [facility] 01-10-2025 Telephone encounter Note Letter printed. [facility] 01-09-2025 Telephone encounter Note Patient calls and states that she is now in a new apartment. Patient states that she is needing a letter that states that she can have a dog and a cat due to them being a emotional support animal. Patient asking if letter can be mailed out to her? Please review and advise, Melanie Vences RN [facility] 01-07-2025 Telephone encounter Note Patient was notified Frances Peterson MA [facility] 01-07-2025 Miscellaneous Notes Patient was notified Frances Peterson MA I am going to start her on the lowest dose at 10 mg to minimize the chance of side effects, take at bedtime. This medication may not work as quickly as Gabapentin but the dose can be increased every 1-2 weeks. Call in two weeks if medication is not effective Judy Haywood APRN.CNP Patient was notified and willing to try [...] Melanie Vences RN documented in this encounter [facility] 01-07-2025 Telephone encounter Note I am going to start her on the lowest dose at 10 mg to minimize the chance of side effects, take at bedtime. This medication may not work as quickly as Gabapentin but the dose can be increased every 1-2 weeks. Call in two weeks if medication is not effective Judy Haywood APRN.CNP [facility] 01-07-2025 Telephone encounter Note Patient was notified and willing to try amitriptyline. Said gabapentin took nerve pain away but made dizzy Frances Peterson MA [facility] 01-07-2025 Telephone encounter Note Noted. Does she want to try something else for the nerve pain? We had discussed a medication called Elavil (amitriptyline) previously. Judy Haywood APRN.CNP [facility] 01-07-2025 Telephone encounter Note Patient calls and wanted provider to know that she is no longer taking the Gabapentin. Patient reports that she does not like how it made her feel. Melanie Vences, RN [facility] 12-17-2024 Note Patient Outreach (IN TMWS) FROILAN GARCÍA ([id number]) 1965 F Date Time Provider Department 12/17/24 LOUIS DOBBS INTHARRIS During your visit today, we recorded the [...] Date Reviewed: 12/16/2024 Reviewed by: Angel Pickett APRN.FOOD SERVICE LEAD - Fully Assessed Visit Diagnosis:Encounter for screening mammogram for breast cancer [Z12.31] Order(s):[facility] SCREENING [facility] [[id number]] Order #: [id number] FUTURE Prescriptions as of 01/17/2025 - amitriptyline [...] ill-defined, cerebrovascular disease*11/07/2008 05/11/2017 Hypertension [I10] 11/23/2008 group home current use of anticoagulant therapy *11/23/2008 Mitral [...] Dementia (HCC) [F03.90] 06/17/2024 Encounter Status:Closed by TRUECar, PRODUSER on 01/17/25 [facility] 12-16-2024 Instructions Angel Pickett APRN.CNS - 12/16/2024 1:35 PM EDT Take gabapentin at bedtime so you are not feeling drowsy during the day. Let us know in a couple of weeks how you are doing. documented in this encounter [facility] 12-16-2024 Note HNO ID: [id number] Author: ANGEL PICKETT APRN.ISHA Service: ? Author Type: Nurse Specialist Type: [...] leg swelling, endorse elevating feet when seated. Zqxq-ruq-vfjvbrn compression socks may be considered if swelling returns. Wear when sitting or standing for prolonged periods. Angel Pickett APRN.FOOD SERVICE LEAD Medical Decision Making: Problems: Low: Stable chronic illness Data: Unique test result(s) reviewed: 2 Risk: Moderate: Drug management Medical Decision Making Level: 3 - Low [facility] 12-16-2024 History of Presen t illness [...] leg swelling, endorse elevating feet when seated. Mpmq-wdg-tvvbyeo compression socks may be considered if swelling returns. Wear when sitting or standing for prolonged periods. Angel Pickett, IRONER SOCK.FOOD SERVICE LEAD Medical Decision Making: Problems: Low: Stable chronic illness Data: Unique test result(s) reviewed: 2 Risk: Moderate: Drug management Medical Decision Making Level: 3 - Low documented in this encounter [facility] 12-10-2024 Telephone encounter Note Labs were okay, potassium slightly low but not low enough to cause significant symptoms. Pain is possibly due to neuropathy as discussed yesterday. Wear compression socks, stay active but avoid prolonged walking or standing. We could consider starting her on a medication for nerve pain called Gabapentin if she would like Judy Haywood APRN.CNP [facility] 12-10-2024 Miscellaneous Notes Labs were okay, potassium slightly low but not low enough to cause significant symptoms. Pain is possibly due to neuropathy as discussed yesterday. Wear compression socks, stay active but avoid prolonged walking or standing. We could consider starting her on a medication for nerve pain called Gabapentin if she would like Judy Haywood APRN.VP CLINICAL Pt called back and was given negative results for US of leg. Pt is asking for results of blood work. Please advise Phoned patient and caregiver Destini and has no voicemail set up, could not leave message, try again later. ----- Message from Judy Haywood APRN.VP CLINICAL sent at 12/09/2024 4:22 PM EDT ----- Please let the patient know the ultrasound of her legs was negative for blood clots Judy Haywood APRN.VP CLINICAL documented in this encounter [facility] 12-10-2024 Telephone encounter Note Pt called back and was given negative results for US of leg. Pt is asking for results of blood work. Please advise [facility] 12-10-2024 Telephone encounter Note Phoned patient and caregiver Destini and has no voicemail set up, could not leave message, try again later. [facility] 12-10-2024 Telephone encounter Note ----- Message from Judy Haywood APRN.VP CLINICAL sent at 12/09/2024 4:22 PM EDT ----- Please let the patient know the ultrasound of her legs was negative for blood clots Judy Haywood APRN.VP CLINICAL [facility] 12-09-2024 Note HNO ID: [id number] Author: JUDY HAYWOOD APRN.VP CLINICAL Service: ? Author Type: Nurse Practitioner Type: Progress Notes Filed: 12/09/2024 15:05 Note Text: CC: Patient presents with: Edema: Bilateral feet/ tingling/pricking sensation x 3 days HPI Recording using oLyfe software for draft documentation of the visit was discussed with the patient/authorized sales development representative; all questions welcomed and answered. Patient/authorized sales development representative agreed to proceed Froilan is a [...] complex since Monday and walked extensively at [facility] on Monday. 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 Presumed nfective endocarditis, treated with IV antibiotics, complicated by a stroke. Underwent MVR (#27 Medtronic Velasco bioprosthesis) with Dr Stephan Morales at [facility] on 07/23/2009. Moderate dysplasia of cervix Other and unspecified mitral valve diseases 11/27/2008 Rheumatic valvular heart disease. Pacemaker malfunction 07/01/2011 Paroxysmal atrial fibrillation (HCC) 10/31/2013 Primary hypertension Psychosis (HCC) 10/01/2014 Dr. Jonathon Kulkarni, the [facility]. Trilafon at . Sick sinus syndrome [...] W/WO DANDC RPR ELTRD EXC [address] Freire EGD 02/22/2022 erosive esophagitis, gastritis, multiple duodenal ulcers no bleeding ENDOMETRIAL BX W/WO ENDOCERVIX BX W/O DILAT SPX 08/14/2013 IR EMBOLIZATION ARTERIAL / MAPPING ([place]) 10/29/2020 right inferior mesenteric artery IR VASCULAR ACCESS TEAM PICC INSERTION RADIO 10/26/2020 NIL ANEURYSM COILING FOOD SERVICE LEAD Left 10/17/2020 left ant. cerebral art; basilar artery PACEMAKER (PM) 07/28/2009 dual chamber REPLACEMENT MITRAL VALVE W/CARDIOPULMONARY (more content not included)... [facility] 12-09-2024 History of Presen t illness Narrative CC: Patient presents with: Edema: Bilateral feet/ tingling/pricking sensation x 3 days HPI Recording using ambient Epigami software for draft documentation of the visit was discussed with the patient/authorized sales development representative; all questions welcomed and answered. Patient/authorized sales development representative agreed to proceed Froilan is a 59-year-old female with a history of CVA, aneurysms, and A-fib on [facility], presenting with acute onset of bilateral foot and ankle pain and swelling. Froilan reports the onset of sharp, stabbing pain and swelling in both feet and upper ankles beginning on Monday, following increased physical activity. She has been walking approximately 1 mile daily around her apartment complex since Monday and walked extensively at [facility] on Monday. 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 Presumed nfective endocarditis, treated with IV antibiotics, complicated by a stroke. Underwent MVR (#27 Medtronic Velasco bioprosthesis) with Dr Stephan Morales at [facility] on 07/23/2009. Moderate dysplasia of cervix Other and unspecified mitral valve diseases 11/27/2008 Rheumatic valvular heart disease. Pacemaker malfunction 07/01/2011 Paroxysmal atrial fibrillation (HCC) 10/31/2013 Primary hypertension Psychosis ([facility]) 10/01/2014 Dr. Jonathon Kulkarni, the [facility]. Trilafon at . 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 cerebral art; basilar [...] Patient agreeable to treatment plan. Judy Haywood APRN.VP CLINICAL documented in this encounter [facility] 12-09-2024 Instructions Judy Haywood APRN.DANNY - 12/09/2024 2:57 PM EDT We discussed [...] swelling. Your prescriptions have been sent to [facility]. If you have any questions or concerns, please contact our office. documented in this encounter [facility] 12-09-2024 Telephone encounter Note Pt called in [...] of Lasix. Pt scheduled with Judy Haywood PHLEBOTOMIST MEDICAL LAB ASSISTANT today at 240 pm. [facility] 12-09-2024 Miscellaneous Notes Pt called in and [...] at 240 pm. documented in this encounter [facility] 10-30-2024 Telephone encounter Note The patient has [...] Erickson LPN October 30, 2024 9:05 AM [facility] 10-30-2024 Miscellaneous Notes The patient has been [...] 2024 9:05 AM documented in this encounter [facility] 10-11-2024 Evaluation note Diagnosis Onset Date Resolution [...] 21, 2020 chronic October 11, 2024 9:17am [facility] Work Phone: [phone]) 894-647302-13-2025 Telephone encounter Note* Telephone Encounter - Yvette Gray LPN - 09/19/2024 10:11 AM EST Left message to call & speak to nurse. Yvette Gray LPN [facility]02-13-2025 Miscellaneous Notes* Telephone Encounter - Yvette Gray LPN - 09/19/2024 10:11 AM EST Left message to call & speak to nurse. Yvette Gray LPN * Telephone Encounter - Yvette Gray LPN - 09/18/2024 8:20 AM EST Froilan has follow-up appt with [facility], 2024. Yvette Grya LPN * Telephone Encounter - Louis Dobbs MD - 09/18/2024 12:41 AM EST Not sure what her issue is. Schedule appointment to evaluate concerns. * Telephone Encounter - Melanie Vences RN - 09/17/2024 8:25 AM EST Patient calls and states that she has been having issues with [facility] and not getting answers. Patient states that her heart keeps getting weaker and weaker. 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 Patient states that she knows the valve is bad, and they are doing anything about it. Patient asking if provider would recommend patient going back to [facility] for Cardiology? Please review and advise, Melanie Vences RN documented in this encounterWay[facility]02-12-2025 Telephone encounter Note * Telephone Encounter - Yvette Gray LPN - 09/18/2024 8:20 AM EST Froilan has follow-up appt with [facility], 2024. Yvette Gray LPN [facility]02-12-2025 Telephone encounter Note* Telephone Encounter - Louis Dobbs MD - 09/18/2024 12:41 AM EST Not sure what her issue is. Schedule appointment to evaluate concerns. [facility]02-11-2025 Telephone encounter Note* Telephone Encounter - Melanie Vences RN - 09/17/2024 8:25 AM EST Patient calls and states that she has been having issues with [facility] and not getting answers. Patient states that her heart keeps getting weaker and weaker. 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 Patient states that she knows the valve is bad, and they are doing anything about it. Patient asking if provider would recommend patient going back to [facility] for Cardiology? Please review and advise, Melanie Vences RN [facility]01-27-2025 Telephone encounter Note* Telephone Encounter - Elaine [...] Dumas LPN September 02, 2024 10:40 AM [facility]01-27-2025 Miscellaneous Notes* Telephone Encounter - Elaine Dumas [...] 02, 2024 10:40 AM documented in this encounterWay[facility]11-13-2024 Telephone encounter Note * Telephone Encounter - [...] Tabares LPN June 19, 2024 12:04 PM [facility]11-13-2024 Miscellaneous Notes* Telephone Encounter - Marian Tabares [...] 19, 2024 12:04 PM documented in this encounterWayne [facility]11-11-2024 Instructions* Patient Instructions* Judy Haywood, BEATRICE.VP CLINICAL - 06/17/2024 9:36 AM EST Screening schedule [...] review all the medicines you take, even qkbe-mky-adckvzy medicines. As you get older, the way [...] have certain medical conditions. documented in this encounterWayne [facility]11-11-2024 History of Present illness Narrative* Judy Haywood [...] as PCP - General Outside specialists seen: [facility], [facility] Medical/Family history review Reviewed and updated problem [...] 6MO-64YR, TRIVALENT (AFLURIA, FLULAVAL, FLUVIRIN, FLUZONE) - SimuForm-iDiDiD COVID-19 VACCINE AGE 12+ YR (COMIRNATY) 10. [...] continue current medications for now Judy Haywood APRN.VP CLINICAL documented in this encounterWayne [facility]11-11-2024 NoteHNO ID: [id number] Author: JUDY HAYWOOD APRN.CNP Service: ? Author Type: Nurse Practitioner Type: [...] as PCP - General Outside specialists seen: [facility], [facility] Medical/Family history review Reviewed and updated problem [...] 3a chronic kidney disease (more content not included)...[facility]10-24-2024 NoteHNO ID: [id number] Author: FRANCES KIDD MA Service: ? Author Type: Diploma Dental Assistant Type: Progress Notes Filed: 05/30/2024 15:30 Note Text: POPULATION HEALTH NAVIGATION OUTREACH Action/May 30, 2024 3:24 PM Radha FERNANDES ~ROSANNA with PCP/team was May 23, 2023 [...] Frances Kidd MA May 30, 2024 3:24 [facility]10-24-2024 History of Present illness Narrative* Frances Kidd MA - 05/30/2024 3:23 PM EDT POPULATION HEALTH NAVIGATION OUTREACH Action/May 30, 2024 3:24 PM Radha FERNANDES ~ROSANNA with PCP/team was May 23, 2023 [...] 30, 2024 3:24 PM documented in this encounterWayne [facility]10-24-2024 NotePatient Outreach (NETNAV) FROILAN GARCÍA ([id number]) 1965 F Date Time Provider Department 05/30/24 FRANCES KIDD During your visit today, we recorded the following information about you: Frances Kidd MA 05/30/2024 3:30 PM Signed POPULATION HEALTH NAVIGATION OUTREACH Action/FYI May 30, 2024 3:24 PM Radha Matthews PCSA ~ROSANNA with PCP/team was May 23, 2023 with Judy Quiros, VP CLINICAL follow up Health Maintenance Due: Annual Medicare [...] Date Reviewed: 05/23/2023 Reviewed by: Judy Quiros APRN.VP CLINICAL - Fully Assessed Prescriptions as of 05/30/2024 [...] ill-defined, cerebrovascular disease*11/07/2008 05/11/2017 Hypertension [I10] 11/23/2008 group home current use of anticoagulant therapy *11/23/2008 Mitral [...] stage 3, GFR 30-59*06/18 (more content not included)...[facility]10-02-2024 Telephone encounter Note* Telephone Encounter - [...] Welch LPN May 08, 2024 10:25 AM [facility]10-02-2024 Miscellaneous Notes* Telephone Encounter - Phylicia Welch [...] 08, 2024 10:25 AM documented in this encounterWay[facility]08-15-2024 Telephone encounter Note * Telephone Encounter - Lily Camarena MA - 03/21/2024 11:19 AM EDT Unable to reach letter mailed to patient. [facility]08-15-2024 Miscellaneous Notes* Telephone Encounter - Lily Camarena [...] 19, 2024 10:17 AM documented in this encounterWayne [facility]08-14-2024 Telephone encounter Note * Telephone Encounter - Yvette Gray LPN - 03/20/2024 4:54 PM EDT POPULATION HEALTH NAVIGATION OUTREACH Action/FYI Reason for Outreach Care Gap/HCC or Scheduling Wellness Visits Care Gaps due: Physical Annual Wellness Visit Patient Contacted: Unable or unnecessary to reach patient: Unable to leave message Navigation Signature: Yvette Gray LPN March 20, 2024 4:55 PM [facility]08-14-2024 Miscellaneous Notes* Telephone Encounter - Yvette Gray LPN - 03/20/2024 4:54 PM EDT POPULATION HEALTH NAVIGATION OUTREACH Action/FYI Reason for Outreach Care Gap/HCC or Scheduling Wellness Visits Care Gaps due: Physical Annual Wellness Visit Patient Contacted: Unable or unnecessary to reach patient: Unable to leave message Navigation Signature: Yvette Gray LPN March 20, 2024 4:55 PM documented in this encounterWayne Healthcare [facility]08-13-2024 Telephone encounter Note * Telephone Encounter - Louis Dobbs MD - 03/19/2024 11:29 AM EDT Patient's request for medication has been refused. See reason and notify patient. Requested Prescriptions Refused Prescriptions Disp Refills cyanocobalamin (VITAMIN B-12) 500 mcg tablet 30 tablet 2 Sig: Take 1 tablet by mouth once daily. Refused By: LOUIS DOBBS Reason for Refusal: Patient needs appointment [facility]08-13-2024 Telephone encounter Note* Telephone Encounter - Kiley [...] Bonilla LPN March 19, 2024 10:17 AM [facility]07-30-2024 History of Present illness Narrative* Lily Camarena MA - 03/05/2024 9:52 AM EDT POPULATION HEALTH NAVIGATION OUTREACH Action/FYI Medicare Wellness Reason for Outreach Care Gap/HCC or Scheduling Wellness Visits Care Gaps due: Medicare Annual Wellness Visit Patient Contacted: Unable or unnecessary to reach patient: Unable to leave message Navigation Signature: Lily Camarena MA March 05, 2024 9:53 AM documented in this encounterWayne Healthcare [facility] Campus06-25-2024 History of Present illness Narrative* Silvia Cates MA - 01/30/2024 2:49 PM EDT POPULATION HEALTH NAVIGATION OUTREACH Action/FYI Contacted patient to schedule [place] Annual Wellness Visit, care gaps and HCCs [...] 30, 2024 2:49 PM documented in this encounterWayne Healthcare [facility]05-21-2024 Telephone encounter Note * Telephone Encounter - Elaine Dumas LPN - 12/26/2023 10:15 AM EDT Patient has been identified by name and date of : Yes, Provider [facility] phones for refill(s): Requested Prescriptions Pending Prescriptions Disp Refills cyanocobalamin (VITAMIN B-12) 500 mcg tablet 30 tablet 2 Sig: Take 1 tablet by mouth once daily. Date of last office visit in primary care: 05/23/23 Date of next office visit in primary care: Visit date not found Please advise. Thank you. Elaine Dumas LPN. [facility]05-21-2024 Miscellaneous Notes* Telephone Encounter - Elaine Dumas LPN - 12/26/2023 10:15 AM EDT Patient has been identified by name and date of : Yes, Provider [facility] phones for refill(s): Requested Prescriptions Pending Prescriptions Disp Refills cyanocobalamin (VITAMIN B-12) 500 mcg tablet 30 tablet 2 Sig: Take 1 tablet by mouth once daily. Date of last office visit in primary care: 05/23/23 Date of next office visit in primary care: Visit date not found Please advise. Thank you. Elaine Dumas LPN. documented in this encounterWayne [facility]04-24-2024 Telephone encounter Note * Telephone Encounter - Rosa Guerrero LPN - 11/29/2023 4:43 PM EDT Contacted Destini Rodriguez and left a message to have the pt call our office. Letter also being sent. .Rosa Guerrero LPN [facility]04-24-2024 Miscellaneous Notes* Telephone Encounter - Rosa Guerrero [...] the sane number we had on file rKupa Ying * Telephone Encounter - Melanie Vences RN - 11/28/2023 3:44 PM EDT Please help patient schedule follow up appointment. Melanie Vences RN * Telephone Encounter - Judy Haywood APRN.DANNY - 11/28/2023 3:18 PM EDT Patient is overdue for follow-up Judy Haywood APRN.VP CLINICAL * Telephone Encounter - Melanie Vences RN [...] you. Melanie Vences RN. documented in this encounterWayne Healthcare [facility]04-23-2024 Telephone encounter Note * Telephone Encounter - Krupa Ying - 11/28/2023 6:06 PM EDT Called Pt phone is disconnected called emergency contact and they Provided me the sane number we had on file Krupa Ying [facility]04-23-2024 Telephone encounter Note* Telephone Encounter - Melanie Vences RN - 11/28/2023 3:44 PM EDT Please help patient schedule follow up appointment. Melanie Vences RN [facility]04-23-2024 Telephone encounter Note* Telephone Encounter - Judy Haywood APRN.CNP - 11/28/2023 3:18 PM EDT Patient is overdue for follow-up Judy Haywood APRN.VP CLINICAL [facility]04-23-2024 Telephone encounter Note* Telephone Encounter - Melanie [...] Please advise. Thank you. Melanie Vences RN. [facility]04-23-2024 History of Present illness Narrative* Silvia Cates MA - 11/28/2023 10:44 AM EDT POPULATION HEALTH NAVIGATION OUTREACH Action/ Contacted patient to schedule [place] Annual Wellness Visit, care gaps and HCCs due. 1st attempt: Unable to leave message; voicemail full Reason for Outreach Care Gap/HCC or Scheduling Wellness Visits Care Gaps due: Medicare Annual Wellness Visit Patient Contacted: Unable or unnecessary to reach patient: Unable to leave message HCC related Navigation Signature: Silvia Cates MA November 28, 2023 10:44 AM documented in this encounterWayne Healthcare [facility] Campus03-04-2024 Miscellaneous Notes* Telephone Encounter - Elaine Dumas [...] patient. Elaine Dumas LPN documented in this encounterWayne Healthcare [facility] Campus02-27-2024 Miscellaneous Notes* Telephone Encounter - Fela Erickson [...] you. Fela Erickson LPN. documented in this encounterWayne Healthcare [facility] Campus02-23-2024 Miscellaneous Notes* Telephone Encounter - Melanie Vences [...] you. Melanie Vences RN. documented in this encounterWayne Healthcare [facility] Campus12-19-2023 Progress note Author Stephan Chery [facility] July 25, 2023 1:35pm Note Date/Time July 25, 2023 7:37am [facility] Medical Records Department [address] [place] [address] Progress Note - Hospitalist 07/25/2329 MR#: [id number] Acct: [id number] Name: FROILAN GARCÍA Rep #:[id number] : 1965 57 From: Stephan Chery DO PCP: Dr. Louis Dobbs MD Status:A DM VARSHA Location: [address] Reason for Visit Reason for Visit: [...] % (Auto) 67.7, Lymph % (Auto) 19.9, [place]lin % (Auto) 7.9, Eos % (Auto) 3.3, [...] 78.2 H, Lymph % (Auto) 15.6 L, [place]lin % (Auto) 5.3, Eos % (Auto) 0.0, [...] for this * PAF/sick sinus syndrome/third-degree heart mqwte-Uayy-lngvcrk pacemaker placed in 2008-Last generator change was [...] on apixaban CODE STATUS -Full code 07/25/23 2228 <Electronically signed by Stephan Chery DO> Cosigner Signature (if applicable): CC: ~ Signed [facility] Work Phone: 1(978) 302-127012-18-2023 History and physical note Author Merna Scherer [facility] July 24, 2023 2:42pm Note Date/Time July 24, 2023 1:55pm [facility] Medical Records Department [address] [place] [address] H&P Exam - Hospitalist 07/24/23 1353 MR#: [id number] Acct: [id number] Name: FROILAN GARCÍA Rep #:[id number] : 1965 57 From: Merna Scherer DO PCP: Dr. Louis Dobbs MD Status:A DM VARSHA Location: [facility] EO309-1 HPI - General General Date of Admission: 07/24/23 Date of Service: 07/24/23 Chief Complaint: Dyspnea with exertion HPI Narrative FROILAN GARCÍA, is a 57 F who presented to the emergency department at [facility] on 07/24/2023 with dyspnea on exertion. [...] her tobacco abuse and need for cessation. 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 Merna Scherer DO; Dr. Louis Dobbs MD~ Signed [facility] Work Phone: 1(153) 412-269612-18-2023 Discharge summary Author Lynn Conti [facility] July 24, 2023 2:22pm Note Date/Time July 24, 2023 12:21pm [facility] Medical Records Department [address] [place] [address] Emergency Department Summary 07/24/23 MR#: [id number] Acct: [id number] Name: FROILAN GARCÍA Rep #:[id number] : 1965 57 From: Arie Thomas MD [...] smokes 1 PPD and uses an inhaler. 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 Call [facility] ([phone]) or report to the closest Emergency Room. Call 911 if necessary. 07/24/23 1404 <Electronically signed by Arie Thomas MD> Cosigner Signature (if applicable): 07/24/23 1422 <Electronically signed by Lynn CLAUDIO> CC: Dr. Louis Dobbs MD ~ Signed [facility] Work Phone: 1(201) 403-753112-18-2023 Discharge summary Author Lynn Lopezun[facility] centerhina [facility] July 24, 2023 2:22pm Note Date/Time July 24, 2023 12:21pm [facility] Medical Records Department [address] [place] [address] Emergency Department Summary 07/24/23 MR#: [id number] Acct: [id number] Name: FROILAN GARCÍA Rep #:[id number] : 1965 57 From: Arie Thomas MD [...] smokes 1 PPD and uses an inhaler. 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 Call [facility] ([phone]) or report to the closest Emergency Room. Call 911 if necessary. 07/24/23 1404 <Electronically signed by Arie Thomas MD> Cosigner Signature (if applicable): 07/24/23 1422 <Electronically signed by Lynn CLAUDIO> CC: Dr. Louis Dobbs MD ~ Signed [facility] Work Phone: 1(415) 885-989111-19-2023 Discharge summary Author Bryson Hua [facility] June 25, 2023 6:54am Note Date/Time June 25, 2023 5:29am [facility] Medical Records Department [address] [place] [address] Emergency Department Summary 06/25/23 MR#: [id number] Acct: [id number] Name: FROILAN GARCÍA Rep #:[id number] : 1965 57 From: Bryson Hua MD PCP: Dr. Louis Dobbs MD Status:R ER Location: ED HPI History of Present [...] No nausea or vomiting. No visual change. 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 Call [facility] ([phone]) or report to the closest Emergency Room. Call 911 if necessary. 06/25/23 0654 <Electronically signed by Bryson Hua MD> Cosigner Signature (if applicable): CC: Dr. Louis Dobbs MD ~ Signed [facility] Work Phone: 1(579) 832-455411-03-2023 Miscellaneous Notes* Telephone Encounter - Leigh Dotson RN - 06/09/2023 10:14 AM EDT Patient notified. Leigh Dotson RN * Telephone Encounter - Kiley Arias - 06/08/2023 12:30 PM EDT Patient called requesting inhaler but does not remember what the name of the medication is or who and when they prescribed it Please advise documented in this encounterWayne [facility]10-18-2023 Miscellaneous Notes* Telephone Encounter - Lily Camarena Ma - 05/24/2023 4:23 PM EDT TC to patients insurance. They provided information for [facility] in [place] which is in network.. Referral faxed to [phone] * Telephone Encounter - Melanie Vences RN - 05/24/2023 11:52 AM EDT Melanie from [facility] calls and reports that they received referral for home health but are unable to accept patient at this time due to staffing. Melanie Vences RN documented in this encounterWayne Healthcare [facility] Campus10-10-2023 Miscellaneous Notes* Telephone Encounter - Peggy Klein [...] uses a taxi service and states her manager of case management Yasmany helps her with transportation so pt [...] LM for pt to return call. Also [facility] notified that pt needs to set up an appt to be seen. Symone at [facility] states she will attempt to notify pt [...] 01/07/2021 21 Please advise. Thank you. Peggy Klein RN documented in this encounterWayne Healthcare [facility] Campus07-14-2023 Miscellaneous Notes* Telephone Encounter - Judy Quiros APRN.CNP - 02/17/2023 2:26 PM EDT Patient needs to reschedule missed appointment 01/25 Judy Quiros APRN.DANNY * Telephone Encounter - Fela Erickson LPN - 02/17/2023 2:19 PM EDT Patient has [...] you. Fela Erickson LPN documented in this encounterWayne Healthcare [facility]06-19-2023 Miscellaneous Notes* Telephone Encounter - Elaine Dumas [...] patient. Elaine Dumas LPN documented in this encounterWayne Healthcare Main Campus06-07-2023 Miscellaneous Notes* Telephone Encounter - Olivia Velasquez RN - 01/11/2023 4:58 PM EDT letter sent * Telephone Encounter - Silvia Yates APRN.CNP - 01/11/2023 4:35 PM EDT Yes, letter may be sent. Silvia Yates APRN.CNP * Telephone Encounter - Olivia Velasquez RN - 01/11/2023 3:47 PM EDT Unable to contact patient by phone. [employer] message sent. Not active on Mchart. Do you want to sendletter ?----- Message from Silvia Yates APRN.CNP sent at 01/11/2023 1:48 PM EDT ----- There is no mammographic or sonographic evidence of malignancy. Return to annual mammogram screening schedule is recommended. If pain continues, she can see general surgery if she desires. Silvia Yates APRN.CNP documented in this encounterWayne Healthcare Main Campus06-07-2023 History of Present illness Narrative* Marley Hawkins [...] 11, 2023 2:49 PM documented in this encounterWayne Healthcare Main Campus05-05-2023 Miscellaneous Notes* Letter - Mammography Coordinator - 12/09/2022 2:33 PM EDT December 12, 2022 PID: [id number] Froilan García [address] [place] [address] Dear Ms. García, We are pleased to [...] report will be [facility] as part of your permanent medical record and are available for your continuing care. Thank you for allowing us to help in meeting your health care needs. Sincerely, Dr. Ramey Interpreting Radiologist [facility] (Normal over 40) documented in this encounterWayne Healthcare Main Campus05-04-2023 History of Present illness Narrative* Silvia Yates APRN.VP CLINICAL - 12/08/2022 1:12 PM EDT Residential Electrician offered: Patient declines. Froilan is a 57 [...] L3 SAB0 IAB0 Ectopic0 Multiple0 Live Births3 [employer] Field Supervisor History LMP: LMP Unknown, Postmenopausal Age at Menarche: Age at First : Age at Menopause: [employer] Field Supervisor History Comments: Sexual Activity: Never; No partner data on record Contraception: No contraception data on record PAST MEDICAL HISTORY Diagnosis Date Acute kidney failure 2004 LISINOPRIL related. Acute, but ill-defined, cerebrovascular disease 11/07/2008 Right hemiparesis, embolic Agoraphobia with panic disorder 12/19/2006 Counselor from counseling center Anemia 2013 Asthma with COPD with exacerbation ([facility]) Bipolar disorder ([facility]) 2000 Cerebral aneurysm 10/11/2020 Chronic diarrhea 07/12/2016 Chronic rheumatic endocarditis 11/07/2008 Treated for Infective endocarditis Congestive heart failure ([facility]) COVID-19 02/2022 CVA (cerebral vascular accident) ([facility]) 10/11/2020 Depressive disorder, not elsewhere classified 12/19/2006 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ident (CVA) 05/11/2017 Essential hypertension 11/23/2008 Generalized anxiety disorder Anxiety, Generalized 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 Presumed nfective endocarditis, treated with IV antibiotics, complicated by a stroke. Underwent MVR (#27 Medtronic Velasco bioprosthesis) with Dr Stephan Morales at [facility] on 07/23/2009. Moderate dysplasia of cervix Other and unspecified mitral valve diseases 11/27/2008 Rheumatic valvular heart disease. Pacemaker malfunction 07/01/2011 Paroxysmal atrial fibrillation ([facility]) 10/31/2013 Psychosis ([facility]) 10/01/2014 Dr. Jonathon Kulkarni[facility]. Trilafon at . 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 cerebral art; basilar [...] external genitalia normal, normal Bartholin's glands, urethra, Gowrie's glands, no vulvar lesions, no cervical lesions, [...] - right breast x 1 year - US BREAST LTD RIGHT - KATHERINE DIAGNOSTIC BILATERAL 3. Family history of breast cancer in first degree relative - ICD9: V16.3, ICD10: Z80.3 - US BREAST LTD RIGHT - KATHERINE DIAGNOSTIC BILATERAL 4. Family history of breast cancer in male - ICD9: V16.8, ICD10: Z80.3 - US BREAST LTD RIGHT - KATHERINE DIAGNOSTIC BILATERAL 5) Follow up one year or sooner as needed Silvia Yates APRN.VP CLINICAL documented in this encounterWayne Healthcare Main Campus04-11-2023 Miscellaneous Notes* Telephone Encounter - Sabine Smyth LPN - 11/15/2022 10:30 AM EDT Message left to [facility] with info. * Telephone Encounter - Louis Dobbs MD - 11/15/2022 9:16 AM EDT Noted. INR and Coumadin per [facility]. Appointment if needed for new/worsening pain. * Telephone Encounter - Maylin Poon RN - 11/14/2022 4:10 PM EDT Gaye with [facility] called in to reports Pt [...] go to the ER. documented in this encounterWayne Healthcare Main Campus03-29-2023 Miscellaneous Notes* Telephone Encounter - Kristy Blanco RN - 11/02/2022 9:13 AM EDT Patient has been identified by name and date of : Yes, Kristy Blanco RN Date 11/02/2022 Time 9:20 am Pharmacy phones for refill(s): Requested Prescriptions Pending Prescriptions Disp Refills Cholecalciferol, Vitamin D3, 125 mcg (5,000 unit) cap 90 capsule 1 Sig: Take 1 capsule by mouth once daily. Symone baldev Tineo calls to request refills for warfarin, vitamin [...] you. Kristy Blanco RN documented in this encounterWayne Healthcare Main Campus03-14-2023 History of Present illness Narrative* Sabine Smyth CREATIVE ARTS MUSIC THERAPIST - 10/18/2022 3:34 PM EDT TRANSITION CARE MANAGEMENT (TCM) INITIAL CONTACT Diploma Dental Assistant Outreach Provider Action/FYI: TCM Initial contact with patient post discharge, spoke to patient. Patient identified by name and . TRANSITION CARE MANAGEMENT INITIAL OUTREACH DOCUMENTATION: Date of Outreach: 10/18/2022 Outreach Attempt 1: Contact Made Date of Discharge 10/17/2022 Some recent data might be hidden SUMMARY: -Pt discharged from [facility] on 10/17/22. -Admitted for: CVA since 06/17/22 [...] pt needs 1/2 side rail to a [place]. Medical records from recent hospitalization: Placed for provider to review documented in this encounterWayne Healthcare Main Campus03-14-2023 Miscellaneous Notes* Telephone Encounter - Sabine Smyth LPN - 10/18/2022 3:03 PM EDT INR IS MANAGED BY CARDIOLOGY. DR SMITH. THEY NEED TO GET THIS RESULT. MESSAGE LEFT TO SELMA WITH THIS INFO. * Telephone Encounter - Conchis Jose - 10/18/2022 2:28 PM EDT Calling to let us know that patient had INR done this morning. But she also took her warfarin this morning as well so that might affect the results. Just an FYI when INR results come in. Conchis Guerrero Pss documented in this encounterWayne Healthcare Main Campus03-14-2023 Miscellaneous Notes* Addendum Note - Judy Quiros [...] asking for this to be sent to [facility]. acetaminophen 500 mg 3 times daily Conchis Guerrero Pss documented in this encounterWayne Healthcare Main Campus03-09-2023 Miscellaneous Notes* Telephone Encounter - Sabine Smyth LPN - 10/13/2022 3:48 PM EST Order called back to Tracy at [facility]. Pt will be using care tenders as she has done in the past for [facility]. She is working on getting her an aide for home care. At this time it looks like it will be with [employer]. Pt previously used outreach lab from [facility] and Dr. Smith is following the INR and coumadin. Pt is seeing Dr. Smith's PHLEBOTOMIST MEDICAL LAB ASSISTANT 10/14/22. It appears he will be following this back. Verified pts appt with pcp 10/24/22. Will call pt to review all again when she is home. * Telephone Encounter - Louis Dobbs MD - 10/13/2022 1:01 PM EST Okay refer to [facility] Home Health for SN, INR, etc. * Telephone Encounter - Rosa Guerrero LPN - 10/12/2022 9:39 AM EST Tracy, manager social services with [facility] calling to let you know pt to d/c from them on 10-17-22. Tracy is trying to get set up who will be doing her INR weekly at home starting next week. Pt was not sure who was coming into her home to do this. They were not certain if this was thru [facility] or where. Please review and advise Tracy back. Rosa Guerrero LPN documented in this encounterWayne Healthcare Main Campus03-03-2023 Miscellaneous Notes* Telephone Encounter - Sabine Smyth LPN - 10/07/2022 3:20 PM EST rec'd records from [facility].to pcp to review. * Telephone Encounter - Melanie Vences RN - 10/06/2022 3:22 PM EST Tracy SW from [facility] calls and states that patient is being discharged on 10/17/2022. Tracy scheduled appointment with provider on 10/24/2022. Tracy has set patient up with [employer] for appointments. Tracy is faxing over discharge date and order form paperwork for [employer] for Undergarment supplies. Melanie Vences RN * Telephone Encounter - Yvette Gray LPN - 10/05/2022 2:08 PM EST Patient is currently at [facility], hoping to be released to home 10/17/2022. Advised that once discharged she will need to schedule follow-up appt w/PCP. Yvette Gray LPN * Telephone Encounter - Louis Dobbs MD - 10/05/2022 1:59 PM EST I need clarification first. Is patient back home from [facility]? Is she planning to come here for follow up? If so appointment is needed. If not then her PCP will need to follow Home Health. * Telephone Encounter - Rosa Guerrero LPN - 10/03/2022 1:31 PM EST Lynn with [facility] calling to let you know they received referral for pt to see nursing, PT and OT for HH. Checking to see if yo will follow and sign for home health. DX. a-fib. Please advise Lynn. Okay to leave a message. Rosa Guerrero LPN documented in this encounterWayne Healthcare Main Campus12-08-2022 Miscellaneous Notes* Telephone Encounter - Sabine Smyth LPN - 07/14/2022 2:25 PM EST Message left to Jhoana with this info. * Telephone Encounter - Louis Dobbs MD - 07/14/2022 12:40 PM EST I do not go to nursing homes. PCP will be attending at [facility]. * Telephone Encounter - Kristy Blanco RN - 07/14/2022 8:54 AM EST Jhoana with [facility] calls to let provider know that patient is currently at [facility] for chcf care. Jhoana to fax a plan of care to provider. Kristy Blanco RN documented in this encounterWayne Healthcare Main Campus12-02-2022 Miscellaneous Notes* Telephone Encounter - Lily Camarena Ma - 07/08/2022 2:58 PM EST Unable to reach , no option to lm. Will try again later * Telephone Encounter - Judy Quiros APRN.CNP - 07/08/2022 10:27 AM EST If patient is still admitted to [facility] then that will need discussed with provider there Judy Quiros APRN.CNP * Telephone Encounter - Anuja Ma Pss - 07/06/2022 2:13 PM EST Patient calling stating she is having urinary incontinence issues and would like a referral to Urology. Please advise and call patient. documented in this encounterWayne Healthcare Main Campus11-14-2022 Miscellaneous Notes* Telephone Encounter - Sabine Smyth LPN - 06/20/2022 9:36 AM EST Rec'd records from [facility] pt to ER 06/10/22 then discharged to [facility]. [facility] to [facility]. documented in this encounterWayne Healthcare Main Campus10-31-2022 Miscellaneous Notes* Telephone Encounter - Judy Quiros APRN.CNP - 06/06/2022 3:53 PM EDT Noted Judy Quiros APRN.CNP * Telephone Encounter - Phong Rm RN - 06/06/2022 2:14 PM EDT Iraida- [facility]- reporting SN POC frequency update- will see [...] ativan, because it was prescribed in the prison, therefor would not send refill. Patient went to ER for increased anxiety and ER prescribed hiydroxyzine 50 mg twice daily. Iraida advised patient to get a lock box to put her medications in. Iraida also wants pcp to know, patient has an appt at [facility] behavior health on , for an evaluation. If patient qualifies, she will be put on a waiting list, which usually takes about 2 weeks to get in. Once they complete and evaluation, will send report to pcp. documented in this encounterWayne Healthcare Main Campus10-27-2022 Miscellaneous Notes* Telephone Encounter - Faby Miles RN - 06/02/2022 3:36 PM EDT Patient's friend calling for refills of [facility]. Advised need to contact [facility] for refills. Faby Miles RN documented in this encounterWayne Healthcare Main Campus10-24-2022 Miscellaneous Notes* Telephone Encounter - Judy Quiros APRN.CNP - 05/30/2022 4:37 PM EDT Same phone encounter on 05/24, message left on voicemail that heart group is managing. Please see phone encounter Judy Quiros APRN.CNP * Telephone Encounter - Maylin Poon RN - 05/30/2022 10:58 AM EDT Iraida COSTELLO [facility] called in and reports that Pt was discharged from [facility] and she has been seeing her since May 12, 2022. She was asking about who was prescribing her Coumadin and monitoring her INR. There was a note on 03/05/21 that reports that [facility] is monitoring this. She isgoing to call their office for further instructions. documented in this encounterWayne Healthcare Main Campus10-19-2022 Miscellaneous Notes* Telephone Encounter - Maylin Poon RN - 05/25/2022 5:36 PM EDT Called and left a detailed voicemail on confidential voice mail notifying Meli from [facility] Home Healthof providers message. Hospital phone number was left in case she had any questions. Maylin Babulski, RN * Telephone Encounter - Louis Dobbs MD - 05/24/2022 5:21 PM EDT Yes, warfarin has been managed by the [facility]. Patient no showed today. Please reschedule. * Telephone Encounter - Fela Erickson LPN - 05/24/2022 10:09 AM EDT Meli from [facility] Home Health calling to report patient fall on 05/20. Patient was sitting on the side of her bed to get up to go to the bathroom and fell, no injury. Meli is questioning who is handling patient coumadin and INR? Computer shows last INR done here was02/2021. Meli is checking with [facility]. documented in this encounterWayne Healthcare Main Campus10-17-2022 Miscellaneous Notes* Telephone Encounter - Judy Quiros APRN.CNP - 05/23/2022 3:45 PM EDT Patient no showed appointment. Needs rescheduled. Should be 40 min for hospital and prison discharge Judy Quiros APRN.DANNY * Telephone Encounter - Louis Dobbs MD - 05/23/2022 12:21 PM EDT Patient will be evaluated here this hour at PHLEBOTOMIST MEDICAL LAB ASSISTANT appointment. * Telephone Encounter - Leigh Dotson RN - 05/23/2022 9:53 AM EDT Ayla with [facility] HH Therapy calling to report 2 updates on [...] reports she hasa pacemaker. Patient taking amlodipine. Assisted discharge medications have not been verified in entirety during this call. Please call Ayla with any new orders/instructions at [phone]. Thank you. documented in this encounterWayne Healthcare Main Campus10-12-2022 Miscellaneous Notes* Telephone Encounter - Judy Quiros APRN.CNP - 05/18/2022 11:20 AM EDT Noted Judy Quiros APRN.CNP * Telephone Encounter - Fela Erickson LPN - 05/18/2022 10:25 AM EDT Sridevi from [facility] Home Health calling to report patient had fall last night and her son was able to help her back up, no injury. Reminder given to use her walker when she is up and around. documented in this encounterWayne Healthcare Main Campus10-11-2022 Miscellaneous Notes* Telephone Encounter - Judy Quiros APRN.CNP - 05/17/2022 7:57 AM EDT Noted Judy Quiros APRN.CNP * Telephone Encounter - Elaine Dumas LPN - 05/16/2022 2:17 PM EDT Ayla with [facility] HC OT calls with POC. OT will see pt two times a week x 4 weeks for strengthening, ADL's, and IDL's. Call Ayla only if there are any questions. Elaine Dumas LPN documented in this encounterWayne Healthcare Main Campus10-05-2022 Miscellaneous Notes* Telephone Encounter - Kristy Blanco RN - 05/11/2022 3:35 PM EDT Call placed to Gennaro and verbal order given for manager social services consult. Gennaro verbalizes understanding. Kristy Blanco RN * Telephone Encounter - Judy Quiros APRN.CNP - 05/11/2022 3:30 PM EDT Okay for below orders Judy Quiros APRN.DANNY * Telephone Encounter - Kristy Blanco RN - 05/11/2022 3:00 PM EDT Gennaro PT calling from [facility] to report plan of care for patient and PT will visit patient 2 times a week for 3 weeks. PT will work with patient on functional mobility training. Gennaro also asking for verbal order for manager social services consult to help fill out advanced directives and work with patient on community resources related to bipolar, depression, and anxiety. Call back number for Gennaro is [phone]. Please review and advise, Kristy Blanco RN documented in this encounterWayne Healthcare Main Campus2022 Miscellaneous Notes* Telephone Encounter - Yvette Gray LPN - 05/10/2022 1:36 PM EDT Jeri, notified. Yvette Gray LPN * Telephone Encounter - Judy Quiros APRN.CNP - 05/10/2022 1:03 PM EDT Okay for orders, PCP will follow Judy Quiros APRN.CNP * Telephone Encounter - Kiley Bonilla LPN - 05/10/2022 11:17 AM EDT Jeri from [facility] HH calling, pt was discharged from [facility] following a stroke. Requesting nursing, PT & OT. Plan is to see pt tomorrow. Will pcp follow? Kiley Bonilla LPN documented in this encounterWayne Healthcare Main Campus07-21-2022 Miscellaneous Notes* Telephone Encounter - Sabine Smyth LPN - 02/24/2022 9:15 AM EDT Pt was admitted from [facility] to [facility] 02/16/22 and discharged back to [facility] on 02/23/22. documented in this encounterWayne Healthcare Main Campus05-11-2022 Miscellaneous Notes* Telephone Encounter - Yvette Gray LPN - 12/15/2021 9:20 AM EDT Below left on identified vm. Yvette Gray LPN * Telephone Encounter - Louis Dobbs MD - 12/14/2021 6:11 PM EDT I'll follow. Desitin ordered. * Telephone Encounter - Phong Rm RN - 12/13/2021 4:09 PM EDT Kathia- [facility]- asking if pcp agreeable to follow for HHAide services for 25 hour/week. Please phone Kathia with verbal ok. Ok to leave vm. Reports patient wears attends and is starting to get skin breakdown. Asking if pcp would send orderfor desitin or A & D, to [place] [facility]. documented in this encounterWayne Healthcare Main Campus05-10-2022 Miscellaneous Notes* Telephone Encounter - Rosa Guerrero LPN - 12/14/2021 3:57 PM EDT Marcy with [facility] called and identified pt with name and date of . Requesting med list. Pt is currently an inpt. Faxed to [phone]. Done. Rosa Guerrero LPN documented in this encounterWayne Healthcare Main Campus05-10-2022 Miscellaneous Notes* Telephone Encounter - Louis Dobbs [...] THINNERS:yes 9. OTHER SYMPTOMS:No lightheadedness Protocols used: [id number] documented in this encounterWayne Healthcare Main Campus05-06-2022 Miscellaneous Notes* Telephone Encounter - Lily Camarena Ma - 12/10/2021 9:03 AM EDT Order given to Regla. * Telephone Encounter - Judy Quiros APRN.CNP - 12/10/2021 8:39 AM EDT Okay for below orders Judy Quiros APRN.CNP * Telephone Encounter - Fela Erickson LPN - 12/10/2021 8:26 AM EDT Regla from [facility] calling recert time for patient, asking for verbal order forskilled nurse visit once weekly. Aware PCP is out of office. Please advise documented in this encounterWayne Healthcare Main Campus05-02-2022 Miscellaneous Notes* Telephone Encounter - Elaine Dumas [...] patient. Elaine Dumas LPN documented in this encounterWayne Healthcare Main Campus03-29-2022 Miscellaneous Notes* Telephone Encounter - Yvette Gray LPN - 11/02/2021 3:32 PM EDT Response left on identified vm. Yvette Gray LPN * Telephone Encounter - Louis Dobbs MD - 11/02/2021 1:27 PM EDT V.O. Okay. I signed POC also. * Telephone Encounter - Elaine Dumas LPN - 11/02/2021 9:28 AM EDT Angela with [facility] HH OT is calling for verbal orders that pcp will follow pt while in HH and that pcp agrees with OT. Will be seeing pt for right-handed pain and decreased use. Call Angela with pcp VO. Elaine Dumas LPN documented in this encounterWayne Healthcare Main Campus02-26-2022 Miscellaneous Notes* Telephone Encounter - Louis Dobbs MD - 10/02/2021 12:38 PM EST Patient's request for medication is as follows Signed Prescriptions Disp Refills docusate sodium (COLACE) 100 mg capsule 60 capsule 2 Sig: Take 1 capsule by mouth twice daily. For constipation. Authorizing Provider: LOUIS DOBBS MD * Telephone Encounter - Phong Rm RN - 09/30/2021 9:13 AM EST [facility] to send Rx for stool softner to [place] [facility] for patient. Reports patient has had no BM since Monday. Bowel sounds are hypoactive, abdomen soft/nontender. Iwona advised patient to take milk of magnesia, increase water / fluid intake (patient reports she is drinking adequate fluids), eat fruits, and drink prune juice. Please phone Iwona with anyquestions. documented in this encounterWayne Healthcare Main Campus04-15-2021 [facility]04[facility]-2021 [facility]04-[facility]-2021 [facility]-2021 [facility]-2021 History of Past illness Narrative* Problem Noted [...] lead impedence and threshold. Reprogramming done in [place] (Dr Ridley), Dr Fraga subsequently contacted and [...] of this encounter (statuses as of 11/02/2021) [facility]04-02-[facility]21 History of Past illness Narrative* Problem Noted [...] lead impedence and threshold. Reprogramming done in [place] (Dr Ridley), Dr Fraga subsequently contacted and [...] of this encounter (statuses as of 11/26/2021) [facility]04-02-2021 History of Past illness Narrative* Problem Noted Date Resolved Date Epistaxis 11/06/2020 06/14/2021 Malnutrition of mild degree 10/19/2020 1111/2020 Mass of sigmoid colon on CT scan 06/16/2016 12/08/2016 Tardive dyskinesia 08/18/2015 12/08/2016 Psychosis 10/01/2014 05/30/2016 Overview: Dr. Jonathon Kulkarni, the [facility]. Trilafon at . Menorrhagia 08/14/2013 08/18/2015 [...] lead impedence and threshold. Reprogramming done in [place] (Dr Ridley), Dr Fraga subsequently contacted and [...] of this encounter (statuses as of 12/03/2021) [facility]04-02-[facility] History of Past illness Narrative* Problem Noted Date Resolved Date Epistaxis 11/06/2020 06/14/2021 Malnutrition of mild degree 10/19/202011/2020 Mass of sigmoid colon on CT scan 06/16/2016 12/08/2016 Tardive dyskinesia 08/18/2015 12/08/2016 Psychosis 10/01/2014 05/30/2016 Overview: [facility] Jonathon Kulkarin, [facility]. Trilafon at . Menorrhagia [...] lead impedence and threshold. Reprogramming done in [place] (Dr Ridley), Dr Fraga subsequently contacted and [...] of this encounter (statuses as of 12/06/2021) [facility]04-02-[facility] History of Past illness Narrative* Problem Noted [...] lead impedence and threshold. Reprogramming done in [place] (Dr Ridley), Dr Fraga subsequently contacted and [...] of this encounter (statuses as of 12/10/2021) [facility]04[facility] History of Past illness Narrative* Problem Noted [...] lead impedence and threshold. Reprogramming done in [place] (Dr Ridley), Dr Fraga subsequently contacted and [...] of this encounter (statuses as of 12/14/2021) [facility]04[facility] History of Past illness Narrative* Problem Noted [...] lead impedence and threshold. Reprogramming done in [place] (Dr Ridley), Dr Fraga subsequently contacted and [...] of this encounter (statuses as of 12/15/2021) [facility] History of Past illness Narrative* Problem Noted [...] lead impedence and threshold. [place] [place] (Dr Ridley), Dr Fraga subsequently contacted and [...] of this encounter (statuses as of 02/07/2022) [facility]04-02-2021 History of Past illness Narrative* Problem Noted Date Resolved Date Epistaxis 11/06/2020 06/14/2021 Malnutrition of mild degree 10/19/2020 1111/2020 Mass of sigmoid colon on CT scan [...] lead impedence and threshold. Reprogramming done in [place] (Dr Ridley), Dr Fraga subsequently contacted and [...] of this encounter (statuses as of 02/24/2022) [facility]04-02-2021 History of Past illness Narrative* Problem Noted Date Resolved Date Epistaxis 11/06/2020 06/14/2021 Malnutrition of mild degree 10/19/2020 11/0 11/2020 Mass of sigmoid colon on CT scan 06/16/2016 12/08/2016 Tardive dyskinesia 08/18/2015 12/08/2016 Psychosis 10/01/2014 05/30/2016 Overview: Dr. Jonathon Kulkarni, the [facility]. Trilafon at . Menorrhagia 08/14/2013 08/18/2015 [...] lead impedence and threshold. Reprogramming done in [place] (Dr Ridley), Dr Fraga subsequently contacted and [...] of this encounter (statuses as of 05/10/2022) [facility]02[facility]2021 History of Past illness Narrative* Problem Noted [...] lead impedence and threshold. Reprogramming done in [place] (Dr Ridley), Dr Fraga subsequently contacted and [...] of this encounter (statuses as of 05/11/2022) [facility]02[facility]2021 History of Past illness Narrative* Problem Noted [...] lead impedence and threshold. Reprogramming done in [place] (Dr Ridley), Dr Fraga subsequently contacted and [...] of this encounter (statuses as of 05/17/2022) [facility]02[facility]2021 History of Past illness Narrative* Problem Noted [...] lead impedence and threshold. Reprogramming done in [place] (Dr Ridley), Dr Fraga subsequently contacted and [...] of this encounter (statuses as of 05/18/2022) [facility]02[facility]2021 History of Past illness Narrative* Problem Noted [...] lead impedence and threshold. Reprogramming done in [place] (Dr Ridley), Dr Fraga subsequently contacted and [...] of this encounter (statuses as of 05/23/2022) [facility]2021 History of Past illness Narrative* Problem Noted Date Resolved Date Epistaxis 11/06/2020 06/14/2021 Malnutrition of mild degree 10/19/2020 1111/2020 Mass of sigmoid colon on CT scan 06/16/2016 12/08/2016 Tardive dyskinesia 08/18/2015 12/08/2016 Psychosis 10/01/2014 05/30/2016 Overview: Dr. Jonathon Kulkarni, the [facility]. Trilafon at . Menorrhagia 08/14/2013 08/18/2015 [...] lead impedence and threshold. Reprogramming done in [place] (Dr Ridley), Dr Fraga subsequently contacted and [...] of this encounter (statuses as of 05/30/2022) [facility]2021 History of Past illness Narrative* Problem Noted [...] lead impedence and threshold. Reprogramming done in [place] (Dr Ridley), Dr Fraga subsequently contacted and [...] of this encounter (statuses as of 06/01/2022) [facility]2021 History of Past illness Narrative* Problem Noted [...] lead impedence and threshold. Reprogramming done in [place] (Dr Ridley), Dr Fraga subsequently contacted and [...] of this encounter (statuses as of 06/02/2022) [facility]2021 History of Past illness Narrative* Problem Noted [...] lead impedence and threshold. Reprogramming done in [place] (Dr Ridley), Dr Fraga subsequently contacted and [...] of this encounter (statuses as of 06/06/2022) [facility]2021 History of Past illness Narrative* Problem Noted [...] lead impedence and threshold. Reprogramming done in [place] (Dr Ridley), Dr Fraga subsequently contacted and [...] of this encounter (statuses as of 06/20/2022) [facility]21 History of Past illness Narrative* Problem Noted Date Resolved Date Epistaxis 11/06/2020 06/14/2021 Malnutrition of mild degree 10/19/2020 1111/2020 Mass of sigmoid colon on CT scan 06/16/2016 12/08/2016 Psychosis 10/01/2014 05/30/2016 Overview: Dr. Jonathon Kulkarni, the [facility]. Trilafon at . Menorrhagia 08/14/2013 08/18/2015 [...] lead impedence and threshold. Reprogramming done in [place] (Dr Ridley), Dr Fraga subsequently contacted and [...] of this encounter (statuses as of 07/08/2022) [facility]2021 History of Past illness Narrative* Problem Noted [...] lead impedence and threshold. Reprogramming done in [place] (Dr Ridley), Dr Fraga subsequently contacted and [...] of this encounter (statuses as of 07/14/2022) [facility]2021 History of Past illness Narrative* Problem Noted [...] lead impedence and threshold. Reprogramming done in [place] (Dr Ridley), Dr Fraga subsequently contacted and [...] of this encounter (statuses as of 10/13/2022) [facility]2021 History of Past illness Narrative* Problem Noted [...] lead impedence and threshold. Reprogramming done in [place] (Dr Ridley), Dr Fraga subsequently contacted and [...] of this encounter (statuses as of 10/18/2022) [facility]2021 History of Past illness Narrative* Problem Noted [...] lead impedence and threshold. Reprogramming done in [place] (Dr Ridley), Dr Fraga subsequently contacted and [...] of this encounter (statuses as of 10/18/2022) [facility]21 History of Past illness Narrative* Problem Noted [...] lead impedence and threshold. Reprogramming done in [place] (Dr Ridley), Dr Fraga subsequently contacted and [...] of this encounter (statuses as of 10/21/2022) [facility]21 History of Past illness Narrative* Problem Noted [...] lead impedence and threshold. Reprogramming done in [place] (Dr Ridley), Dr Fraga subsequently contacted and [...] of this encounter (statuses as of 11/02/2022) [facility]21 History of Past illness Narrative* Problem Noted [...] lead impedence and threshold. Reprogramming done in [place] (Dr Ridley), Dr Fraga subsequently contacted and [...] of this encounter (statuses as of 11/15/2022) [facility] History of Past illness Narrative* Problem Noted Date Resolved Date Epistaxis 11/06/2020 06/14/2021 Malnutrition of mild degree 10/19/2020 1111/2020 Mass of sigmoid colon on CT scan 06/16/2016 12/08/2016 Psychosis 10/01/2014 05/30/2016 Overview: Dr. Jonathon Kulkarni, the [facility]. Trilafon at . Menorrhagia 08/14/2013 08/18/2015 [...] lead impedence and threshold. Reprogramming done in [place] (Dr Ridley), Dr Fraga subsequently contacted and [...] of this encounter (statuses as of 12/08/2022) [facility]2021 History of Past illness Narrative* Problem Noted [...] lead impedence and threshold. Reprogramming done in [place] (Dr Ridley), Dr Fraga subsequently contacted and [...] of this encounter (statuses as of 12/13/2022) [facility]2021 History of Past illness Narrative* Problem Noted [...] lead impedence and threshold. Reprogramming done in [place] (Dr Ridley), Dr Fraga subsequently contacted and [...] of this encounter (statuses as of 01/12/2023) [facility]2021 History of Past illness Narrative* Problem Noted Date Resolved Date Epistaxis 11/06/2020 06/14/2021 Malnutrition of mild degree 10/19/2020 11/0 11/2020 Mass of sigmoid colon on CT scan 06/16/2016 12/08/2016 Psychosis 10/01/2014 05/30/2016 Overview: Dr. Jonathon Kulkarni, the [facility]. Trilafon at . Menorrhagia 08/14/2013 08/18/2015 [...] lead impedence and threshold. Reprogramming done in [place] (Dr Ridley), Dr Fraga subsequently contacted and [...] of this encounter (statuses as of 01/23/2023) [facility]04[facility]2021 History of Past illness Narrative* Problem Noted [...] lead impedence and threshold. Reprogramming done in [place] (Dr Ridley), Dr Fraga subsequently contacted and [...] complication 09/09/2008 11/27/2008 Supervision of other high-ri (V23.89) 09/09/2008 11/27/2008 Unspecified high-risk 04/10/2008 09/09/2008 Essential hypertension, benign 12/27/2006 11/23/2008 Unspecified asthma(493.90) 12/19/2006 0 08/18/2015 Agoraphobia with panic disorder 12/19/2006 05/11/2017 documented as of this encounter (statuses as of 03/21/2023) [facility]21 History of Past illness Narrative* Problem Noted [...] lead impedence and threshold. Reprogramming done in [place] (Dr Ridley), Dr Fraga subsequently contacted and [...] of this encounter (statuses as of 05/17/2023) [facility]21 History of Past illness Narrative* Problem Noted [...] lead impedence and threshold. Reprogramming done in [place] (Dr Ridley), Dr Fraga subsequently contacted and [...] of this encounter (statuses as of 05/26/2023) [facility]2021 History of Past illness Narrative* Problem Noted [...] lead impedence and threshold. Reprogramming done in [place] (Dr Ridley), Dr Fraga subsequently contacted and [...] of this encounter (statuses as of 06/09/2023) [facility]21 History of Past illness Narrative* Problem Noted Date Diagnosed Date Resolved Date Epistaxis 11/06/2020 06/14/2021 Malnutrition of mild degree 10/19/2020 06/10/2021 Mass of sigmoid colon on CT scan 06/16/2016 12/08/2016 Psychosis 10/01/2014 05/30/2016 Overview: Dr. Jonathon Kulkarni, the [facility]. Trilafon at . Menorrhagia 08/14/2013 08/18/2015 [...] lead impedence and threshold. Reprogramming done in [place] (Dr Ridley), Dr Fraga subsequently contacted and [...] of this encounter (statuses as of 06/11/2023) [facility]04[facility]2021 History of Past illness Narrative* Problem Noted [...] lead impedence and threshold. Reprogramming done in [place] (Dr Ridley), Dr Fraga subsequently contacted and [...] of this encounter (statuses as of 09/29/2023) [facility]04[facility]2021 History of Past illness Narrative* Problem Noted [...] lead impedence and threshold. Reprogramming done in [place] (Dr Ridley), Dr Fraga subsequently contacted and [...] of this encounter (statuses as of 10/05/2023) [facility]2021 History of Past illness Narrative* Problem Noted [...] lead impedence and threshold. Reprogramming done in [place] (Dr Ridley), Dr Fraga subsequently contacted and [...] of this encounter (statuses as of 10/10/2023) [facility]04-01-2021 [facility]04-01-2021 [facility]03-31-2021 [facility]03-31-2021 Note [facility]03-31-2021 [facility] 11-03-2020 [facility]03[facility]30-2021 [facility]03-29-2021 [facility]03-29-2021 [facility]03-29-2021 [facility]03-28-2021 [facility]03-28-2021 [facility]03-27-2021 Note [facility]03-27-2021 [facility] 10-30-2020 [facility]03-26-2021 [facility]03-26-2021 [facility]03-25-2021 [facility]03-25-2021 [facility]03-25-2021 [facility]03[facility]25-2021 [facility]03-24-2021 Note [facility]03-24-2021 [facility] 10-28-2020 [facility]03[facility]23-2021 [facility]03-23-2021 [facility]03-22-2021 [facility]03-22-2021 [facility]03-22-2021 [facility]03-22-2021 [facility]03-21-2021 Note [facility]03-21-2021 [facility] 10-24-2020 [facility]03-20-2021 [facility]03-20-2021 NoteHNO ID: [id number] Author: Interface Note Service: ? Author Type: ? Type: Progress Notes Filed: 10/24/2020 3:06 AM Note Text: Epic Scheduled Downtime: 10/24/2020 1:00:00 AM to 10/24/2020 2:48:00 [facility]03-19-2021 [facility]03-19-2021 [facility]03-19-2021 [facility] 10-22-2020 [facility]03-18-2021 [facility]03-18-2021 [facility]03-17-2021 [facility]03-17-2021 [facility]03-17-2021 [facility]03-16-2021 NoteHNO ID: [id number] Author: Carlyle Dean Service: Infectious Disease Author Type: Physician Type: Plan of Care Filed: 10/20/2020 4:41 PM Note Text: Off the floor for nuclear scan when I came to see her Will follow read Keep abx going Carlyle Dean [facility]03-16-2021 [facility]03-16-2021 [facility]03[facility]16-2021 [facility]03-15-2021 [facility]03-15-2021 [facility]03[facility]15-2021 [facility]03-14-2021 Note [facility]03-14-2021 [facility] 10-18-2020 [facility]03-13-2021 [facility]03-13-2021 [facility]03-13-2021 [facility]03-13-2021 [facility]03-13-2021 [facility]03-12-2021 [facility]03-12-2021 Note [facility]03-12-2021 [facility] 10[facility]15-2020 [facility]03-11-2021 [facility]03-11-2021 [facility]03-11-2021 [facility]03-10-2021 [facility]03-10-2021 [facility]03-09-2021 [facility]03-08-2021 Note [facility]03-08-2021 [facility] 09-21-2020 Evaluation note* Diagnosis Onset Date Resolution [...] Presence of cardiac pacemaker September 21, 2020 [facility] Work Phone: 1(869) 449-654702-15-2021 Evaluation note* Diagnosis Onset Date Resolution Status Complete heart block chronic Non-ischemic cardiomyopathy chronic Presence of cardiac pacemaker September 21, 2020 chronic Sick sinus syndrome chronic Hypotension acute History of mitral valve repl acement with bioprosthetic valve July 23, 2009 chronic Hyperlipidemia chronic Non-ischemic cardiomyopathy chronic Paroxysmal atrial fibrillation chronic Presence of cardiac pacemaker September 21, 2020 [facility] Work Phone: 1(433) 210-158902-15-2021 Evaluation note* Diagnosis Onset Date Resolution Status [...] infection) acute Weakness acute Paroxysmal atrial fibrillation chronic [facility] Work Phone: 1(301) 202-403402-15-2021 Evaluation note* Diagnosis Onset Date Resolution Status [...] chronic Rheumatic mitral stenosis with insufficiency chronic [facility] Work Phone: 1(757) 455-325202-15-2021 Evaluation note* Diagnosis Onset Date Resolution Status [...] Puncture wound resolved Supratherapeutic INR resolve d [facility] Work Phone: 1(797) 763-469202-15-2021 Evaluation note* Diagnosis Onset Date Resolution Status [...] acute Acute kidney injury acute Sepsis acute [facility] Work Phone: 1(498) 401-467902-15-2021 Evaluation note* Diagnosis Onset Date Resolution Status Complete heart block chronic Non-ischemic cardiomyopathy chronic Paroxysmal atrial fibrillation chronic Presence of cardiac pacemaker September 21, 2020 chronic Sick sinus syndrome chronic History of mitral valve repl acement with bioprosthetic valve July 23, 2009 chronic Hyperlipidemia chronic Non-ischemic cardiomyopathy chronic Paroxysmal atrial fibrillation chronic Presence of cardiac pacemaker September 21, 2020 [facility] Work Phone: [phone]) 459-306302-15-2021 Evaluation note* Diagnosis Onset Date Resolution Status [...] chronic Non-ischemic cardiomyopathy chronic Sick sinus syndrome [facility] Work Phone: 1([phone]) 426-717802-15-2021 Evaluation note* Diagnosis Onset Date Resolution Status Admit Date Presence of cardiac pacemaker September 21, 2020 chronic February 13, 12:57pm Sick sinus syndrome chronic February 13, 2025 12:57pm [facility] Work Phone: 1(681) 589-609512-17-2009 Evaluation note* Diagnosis Onset Date Resolution Status [...] of cardiac pacemaker September 21, 2020 chronic [facility] Work Phone: 1(661) 787-947712-17-2009 Evaluation note* Diagnosis Onset Date Resolution Status [...] kidney injury acute Anemia acute Sepsis acute [facility] Work Phone: Discharge summary Author Stephan Chery [facility] July 25, 2023 1:40pm Note Date/Time July 25, 2023 1:36pm [facility] Medical Records Department [address] [place] [id number] Discharge Summary 07/25/23 1335 MR#: [id number] Acct: [id number] Name: FROILAN GARCÍA Rep #:[id number] : 1965 57 From: Stephan Chery DO PCP: Dr. Louis Dobbs MD Status:A [facility] Location: [place] [address] Providers Date of Admission: 07/24/23 Primary Care [...] for this * PAF/sick sinus syndrome/third-degree heart gqupv-Mizf-uhxowbx pacemaker placed in 2008-Last generator change was 09/21/2020-Continue Eliquis-Patient is not on any rate controlling medication * Schizophrenia/bipolar disease-Follows with outpatient psychiatry-Recommend o raúl outpatient follow-up * Severe tardive dyskinesia-Follows with [...] 78.2 H, Lymph % (Auto) 15.6 L, [place] % (Auto) 5.3, Eos % (Auto) 0.0, [...] Referrals / Follow Up: [facility] [place] [Provider Group] - Within 1 Month Louis Dobbs MD [Primary Care Provider] - Within 2 Weeks Disposition Disposition (needs filled in before D/C Order can be placed): Home, Self Care Charges/Coding Visit Charges Inpatient E&M: 43761 Disch Hosp >30min 07/25/23 1340 <Electronically signed by Stephan Chery DO> Cosigner Signature (if applicable): CC: Dr. Stephan Chery DO; Dr. Louis Dobbs MD~ Signed [facility] Work Phone: Discharge summary Author Dane Joseph [facility] Note Date/Time April 12, 2025 5:31am [facility] Medical Records Department [address] [place] [address] Emergency Department Summary 04/12/25 MR#: [id number] Acct: [id number] Name: FROILAN GARCÍA Rep #:[id number] : 1965 59 From: Dane Valdez PCP: Dr. 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 Schizophrenia Anxiety Former smoker Stroke/cerebrovascular accident Non-ischemic cardiomyopathy 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 classified elsewhere Sick sinus syndrome Asthma Dysphagia as late effect of cerebrovascular accident (CVA) CVA (cerebral vascular accident) Home Medications ?Medication ?Instructions ?Recorded ?Last Taken ?Type cholecalciferol (vitamin D3) 125 125 mcg PO DAILY supp lement 12/14/21 02/16/22 History mcg (5,000 unit) capsule rosuvastatin 5 mg tablet 5 mg PO QHS CHOLESTEROL 12/0502/10/22 History acetaminophen 500 mg tablet 500 mg PO Q6H PRN pain/fev er 02/16/22 Unknown History amlodipine 10 mg tablet 10 mg PO DAILY HTN 02/16/22 02/16/22 History ferrous sulfate 325 mg (65 mg 325 mg PO BID 10/14/22 U nknown History iron) tablet ascorbate calcium (vitamin C) 500 500 mg PO QDAY 06/05 Unknown History mg tablet furosemide 40 mg tablet (Lasix) 40 mg PO QDAY #90 tabs 06/05/24 Unknown Rx pantoprazole 20 mg tablet,delayed 20 mg PO QDAY Unknown History release potassium chloride 20 mEq 20 meq PO QDAY K+ was low on the 06/14/24 Unknown Rx tablet,extended release 595 KCL #30 tabs apixaban 5 mg tablet (Eliquis) 5 mg PO BID #60 tabs Unknown Rx ondansetron 4 mg disintegrating 4 mg PO Q8H PRN nausea and 01/13/25 Unknown Rx tablet vomiting #10 tabs benzonatate 100 mg capsule 100 mg PO BID PRN cough 7 d ays #14 04/12/25 Unknown Rx caps doxycycline hyclate 100 mg capsule 100 mg PO BID 7 day s #14 caps 04/12/25 Unknown Rx Allergy/AdvReac Type Severity Reaction Status Date / Time amoxicillin (Amoxicillin) Allergy Hives Verified 04/12/25 05:09 latex Allergy Rash Verified 04/12/25 05:09 lisinopril Allergy Unknown Verified 04/12/25 05:09 Penicillins Allergy Hives Verified 04/12/25 05:09 venom-honey bee (bee venom Allergy Swelling Verified 04/12/25 05:09 (honey bee)) ciprofloxacin (From Cipro) AdvReac Nausea/Vom/ Verified 04/12/25 05:09 Diarrhea Surgical History History of partial colectomy [...] you participate in: none seatbelt use: always EXAM Physical Exam Const Vital Signs: 04/12/25 05:08 04/12/25 05:09 Temperature 98.4 F Temperature Source Oral Pulse Rate 94 Respiratory Rate 20 H Respiratory Effort Normal Respiratory Pattern Normal Blood Pressure 141/94 H Blood Pressure Mean 109 Pulse Ox 94 MDM MDM MDM Narrative Medical decision making narrative: HISTORY OF PRESENT ILLNESS: Chief complaint: Cough/cold 59-year-old female history of bipolar disorder, anxiety, hypertension, brain aneurysm, nonischemic colopathy, sick sinus syndrome status post pacemaker, CVApresents with concern for cough/cold. She notes facial pressure specifically the left. She states she has had 1 week of thick yellow discharge from her noseas well as a cough. Denies chest pain or shortness of breath. Denies sore throat or sick contacts. REVIEW OF SYSTEMS: Pertinent positives: Head congestion, sinus congestion Pertinent negatives: Sore throat, sick contacts, fever, shortness of breath or chest pain. PHYSICAL EXAM: Nursing triage notes reviewed, Vital signs reviewed Constitutional: please see mdm HENT: MMM, TTP over maxillary sinus on the left. No obvious exudates noted to posterior oropharynx, uvula midline, no submandibular edema. No trismus. Eyes: Pupils equal round and reactive to light, Extraocular muscles intact Neck: No stridor, no JVD, full neck ROM Lungs: Clear to auscultation, No wheezing or rales. No increased work of breathing, no conversational dyspnea, no accessory muscle use, no nasal flaring. No respiratory distress noted Heart: Regular rate and rhythm, No murmurs, No rubs and No gallops, 2+ distal pulses (radial, femoral, posterior tibial) in all extremities Neuro: Alert and oriented x3, neuro exam at baseline, cranial nerves II through XII are intact. No pain with extraocular muscle movement. There is negative test of skew. 5 of 5 strength in upper and lower extremities in flexion extension. Intact sensation to light touch in upper and lower extremity dermatomes. No truncal or extremity ataxia. No dysdiadochokinesia. Normal gait. 2+ reflexes in upper and lower extremities. No meningeal signs. Negative Babinski. NIH of 0. MEDICAL DECISION MAKING: Chief Complaint: please see [facility] External records reviewed: Reviewed prior ED visit Factors affecting care: as per [facility] Social determinants of health: History mental health disorder History obtained from others: EMS Consults: none [facility] Narrative: Patient was initially hemodynamically stable, afebrile and nontoxic-appearing. Exam without focal cardiopulmonary abnormalities. Exam most consistent with likely sinusitis. Will prescribe doxycycline for empiric antimicrobial therapy. The patient and/or family, caregivers express understanding. The patient and/orfamily, caregivers agrees with the plan. Shared decision making: I will have a discussion with the patient and or visitors regarding risk/benefits of further testing or admission. They will be made aware of of the risk/benefits inherent in this decision they will be given the opportunity to voice understanding. Total critical care time today provided was at least 0 minutes. This excludes separately billable procedures. Critical care time (if documented) is secondary to the patient having high probability of clinically significant/life threatening deterioration in the patient's condition which required my urgent intervention. Impression: 1. Acute bacterial sinusitis 2. Cough Dispo: Discharge home This note was generated with [employer] dictation software. It may contain incorrectwords, spelling, and punctuation that were not noted in review of the chart prior to signing. Discharge Plan Triage Chief Complaint: Cold Sx ED Provider: Dane Joseph Dx/Rx/DC Orders Clinical Impression: Acute bacterial sinusitis Instructions: ED Sinusitis (Antibiotic Treatment) Prescriptions: New doxycycline hyclate 100 mg capsule 100 mg PO BID 7 Days Qty: 14 0RF benzonatate 100 mg capsule 100 mg PO BID PRN (Reason: cough) 7 Days Qty: 14 0RF No Action ferrous sulfate 325 mg (65 mg iron) tablet 325 mg PO BID pantoprazole 20 mg tablet,delayed release (DR/EC) 20 mg PO QDAY ascorbate calcium (vitamin C) 500 mg tablet 500 mg PO QDAY furosemide [Lasix] 40 mg tablet 40 mg PO QDAY Qty: 90 3RF cholecalciferol (vitamin D3) 125 mcg (5,000 unit) Capsule 125 mcg PO DAILY rosuvastatin 5 mg tablet 5 mg PO QHS acetaminophen 500 mg Tablet 500 mg PO Q6H PRN (Reason: pain/fever) amlodipine 10 mg Tablet 10 mg PO DAILY ondansetron 4 mg tablet,disintegrating 4 mg PO Q8H PRN (Reason: nausea and vomiting) Qty: 10 0RF potassium chloride 20 mEq tablet extended release 20 meq PO QDAY Qty: 30 11RF Eliquis 5 mg tablet 5 mg PO BID Qty: 60 11RF Primary Care Provider: Louis Dobbs Referrals: Louis Dobbs MD [Primary Care Provider] - Activity Restrictions/Additional Instructions: Thank you for trusting us with your care today! Please take Tylenol (2 pills, 650 mg), ibuprofen (2 pills, 400 mg) every 6 hoursas needed for pain and fever control. Please take antibiotics until course complete. Please take Tessalon Perles as needed for cough suppression. Please return to the emergency department if your symptoms change or worsen. Please follow with your primary care physician for further outpatient evaluationand management. Print Language: Maldivian Disposition Disposition: Home, Self Care What to do if you have Problems For any increased pain, shortness of breath, bleeding, nausea or vomiting, chestpain, or any unexpected problems, contact your Primary Care Provider. Call [facility] ([phone]) or report to the closest Emergency Room. Call 911 if necessary. 04/12/25 0589 <Electronically signed by Dane Joseph DO> Cosigner Signature (if applicable): CC: Dr. Louis Dobbs MD ~ Signed [facility] Work Phone: evaluation note* Diagnosis Hypertensive kidney disease with stage 3 chronic kidney disease (HCC) [facility] Diagnosis Asthma with COPD with exacerbation (HCC) Chronic obstructive asthma with exacerbation 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ident (CVA) [facility] Urge incontinence- Primary [facility] Diagnosis Encounter for screening mammogram for breast cancer [facility] Diagnosis Onset Date Resolution Status Acidosis, lactic resolved Acute kidney injury resolved Sepsis resolved Abnormality of gait and mobility chronic Anxiety chronic Dementia chronic Depression chronic History of stroke chronic Tardive dyskinesia chronic Complete heart block chronic Paroxysmal atrial fibrillation chronic Presence of cardiac pacemaker September 21, 2020 [facility] Work Phone: evaluation note* Diagnosis Encounter for [...] and stress (male)(female) [facility]* Diagnosis Hyperlipidemia, unspecified hyperlipidemia type [facility] noteNo assessment information availableWAvita [facility] Work Phone: evaluation note* Diagnosis Hyperlipidemia, unspecified hyperlipidemia type Primary hypertension Unspecified essential hypertension Gastroesophageal reflux disease without esophagitis Esophageal reflux [facility] Diagnosis Gastroesophageal reflux disease without esophagitis Esophageal reflux Primary hypertension Unspecified essential hypertension Hyperlipidemia, unspecified hyperlipidemia type [facility] Diagnosis Asthma with COPD with exacerbation (HCC) Chronic obstructive asthma with exacerbation [facility] Diagnosis Mastalgia Mastodynia Family history of breast cancer in first degree relative Family history of malignant neoplasm of breast Family history of breast cancer in male Family history of other specified malignant neoplasm [facility] Diagnosis Onset Date Resolution Status Dyspnea on exertion acute Hypoxia acute Tobacco use acute [facility] Work Phone: Evaluation note* Diagnosis Gastroesophageal reflux disease without esophagitis Esophageal reflux Primary hypertension Unspecified essential hypertension Hyperlipidemia, unspecified hyperlipidemia type documented in this encounter [facility] note* Diagnosis Encounter for screening mammogram for breast cancer documented in this encounter [facility] note* Diagnosis Aneurysm of anterior communicating artery- Primary Cerebral aneurysm, nonruptured Malnutrition of mild degree (HCC) Malnutrition of mild degree group home (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 antibiotics Brain aneurysm Cerebral [...] esophagitis Esophageal reflux documented in this encounter [facility] note* Diagnosis Aneurysm of anterior communicating artery- Primary Cerebral aneurysm, nonruptured Malnutrition of mild degree (HCC) Malnutrition of mild degree group home (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 antibiotics Brain aneurysm Cerebral [...] unspecified hyperlipidemia type [facility]* Diagnosis Chest pain, unspecified type Other forms of dyspnea Paroxysmal atrial fibrillation Atrial fibrillation Personal history of transient ischemic attack (TIA), and cerebral infarction without residual deficits Other cardiomyopathies 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 Long-term (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 anticoagulants Nicotine dependence, cigarettes, uncomplicated Rheumatic mitral stenosis with insufficiency Mitral stenosis with insufficiency Essential (primary) hypertension Unspecified essential hypertension Hyperlipidemia, unspecified hyperlipidemia type Presence of xenogenic heart valve Heart valve replaced by transplant Presence of cardiac pacemaker Cardiac pacemaker in situ [facility] Diagnosis Aneurysm of anterior communicating artery- Primary Cerebral aneurysm, nonruptured Malnutrition of mild degree (HCC) Malnutrition of mild degree group home (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 antibiotics Brain aneurysm Cerebral [...] unspecified hyperlipidemia type [facility] Diagnosis Aneurysm of anterior communicating artery (HCC)- Primary Cerebral aneurysm, nonruptured Malnutrition of mild degree (HCC) Malnutrition of mild degree 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 Brain aneurysm (HCC) [...] Pedal edema Edema documented in this encounter [facility] note* Diagnosis Aneurysm of anterior communicating artery (HCC)- Primary Cerebral aneurysm, nonruptured Malnutrition of mild degree (HCC) Malnutrition of mild degree 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 Brain aneurysm (HCC) [...] Pedal edema Edema documented in this encounter [facility] note* Diagnosis Aneurysm of anterior communicating artery (HCC)- Primary Cerebral aneurysm, nonruptured Malnutrition of mild degree (HCC) Malnutrition of mild degree group home (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 antibiotics Brain aneurysm (HCC) [...] Pedal edema Edema documented in this encounter [facility] note* Diagnosis Aneurysm of anterior communicating artery (HCC)- Primary Cerebral aneurysm, nonruptured Malnutrition of mild degree (HCC) Malnutrition of mild degree group home (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 antibiotics Brain aneurysm (HCC) [...] for breast cancer [facility] Diagnosis Aneurysm of anterior communicating artery (HCC)- Primary Cerebral aneurysm, nonruptured Malnutrition of mild degree (HCC) Malnutrition of mild degree group home (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 antibiotics Brain aneurysm (HCC) [...] of unspecified site documented in this encounter [facility] note* Diagnosis Aneurysm of anterior communicating artery (HCC)- Primary Cerebral aneurysm, nonruptured Malnutrition of mild degree (HCC) Malnutrition of mild degree 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 Brain aneurysm (HCC) [...] for unspecified condition documented in this encounter [facility] note* Diagnosis Aneurysm of anterior communicating artery (HCC)- Primary Cerebral aneurysm, nonruptured Malnutrition of mild degree (HCC) Malnutrition of mild degree 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 Brain aneurysm (HCC) [...] with stage 3a chronic kidney disease (HCC) Encounter for screening mammogram for malignant neoplasm of breast Other screening mammogram History of anemia Personal history of diseases of blood and blood-forming organs Candidal intertrigo Candidiasis of skin and nails Bilateral lower extremity pain Pain in limb 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ident (CVA) Brain aneurysm (HCC) Cerebral aneurysm, nonruptured [facility] Diagnosis Aneurysm of anterior communicating artery (HCC)- Primary Cerebral aneurysm, nonruptured Malnutrition of mild degree (HCC) Malnutrition of mild degree 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 Louis Dobbs MD Status:A DM VARSHA Location: [place] [address] HPI - General General Date of Admission: 07/24/23 Date of Service: 07/24/23 Chief Complaint: Dyspnea with exertion HPI Narrative FROILAN GARCÍA, is a 57 F who presented to the emergency department at [facility] on 07/24/2023 with dyspnea on exertion. [...] her tobacco abuse and need for cessation. [facility] Medical History (Updated 07/24/23 @ 14:[address] 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 / [place] , Service support , Assessment & Plan Assessment/Plan (1) Dyspnea [...] -Full code Charges/Coding Visit Charges Inpatient E&M: 59155 Init Hosp L2 07/24/23 1442 <Electronically signed by Merna Scherer DO> Cosigner Signature (if applicable): CC: Dr. Merna Scherer DO; Dr. Louis Dobbs MD~ Signed [facility] Work Phone: Hospital Discharge instructions Additional Instructions Please follow-up with your psychiatrist.[facility] Work Phone: Hospital Discharge instructions Additional [...] further workup please return to the emergency room.[facility] Work Phone: Hospital Discharge instructionsAdditional Instructions Thank you for trusting us with your care today! Please take Tylenol (2 pills, 650 mg), ibuprofen (2 pills, 400 mg) every 6 hours as needed for pain and fever control. Please take antibiotics until course complete. Please take Tessalon Perles as needed for cough suppression. Please return to the emergency department if your symptoms change or worsen. Please follow with your primary care physician for further outpatient evaluation and management.[facility] Work Phone: Reason for referral (narrative)* Diagnostic Procedure Only (Routine) - Pending Review Specialty Diagnoses / Procedures Referred By Rita mehta Referred To Contact [facility] Diagnoses Encounter for screening mammogram for breast cancer Procedures KATHERINE SCREENING SCREENING MAMMOGRAPHY BI 2-VIEW BREAST INC CAD Louis Dobbs MD [address] [place] [address] [facility] [address] [place] [address] Referral ID Status Reason Start Date Expiration Date Visits Requested Visits Authorized [id number] Pending Review Auto-Generat ed Referral 02/02/2022 03/04/2023 1 1 [facility] for referral (narrative)* Diagnostic Procedure Only (Routine) - Authorized Specialty Diagnoses / Procedures Referred By Rita mehta Referred To Contact [facility] Diagnoses Mastalgia Family history of breast cancer in first degree relative Family history of breast cancer in male Procedures KATHERINE DIAGNOSTIC BILATERAL DIAGNOSTIC MAMMOGRAPHY COMPUTER-AIDED DETCJ BI Silvia Yates APRN.VP CLINICAL [address] [address] [facility] [address] [place] [address] Referral ID Status Reason Start Date Expiration Date Visits Requested Visits Authorized [id number] Authorized Auto-Generat ed Referral 12/08/2022 01/07/2024 1 [...] Silvia Yates APRN.CNP [address] [place] [address] [facility] [address] [place] [address] Referral ID Status Reason Start Date Expiration Date Visits Requested Visits Authorized [id number] Authorized Auto-Generat ed Referral 12/08/2022 01/07/2024 1 1 * Diagnostic Procedure Only (Routine) - Authorized Specialty Diagnoses / Procedures Referred By Rita t Referred To Contact [facility] Diagnoses Mastalgia Procedures US BREAST LTD RIGHT US BREAST UNI REAL TIME WITH IMAGE LIMITED Silvia Yates APRN.VP CLINICAL [address] [place] [address] [facility] [address] [place] [address] Referral ID Status Reason Start Date Expiration Date Visits Requested Visits Authorized [id number] Authorized Auto-Generat ed Referral 12/08/2022 01/07/2024 1 1 [facility] for referral (narrative)* Diagnostic Procedure Only (Routine) - Closed Specialty Diagnoses / Procedures Referred By Rita t Referred To Contact [facility] Diagnoses Mastalgia Procedures US BREAST LTD RIGHT US BREAST UNI REAL TIME WITH IMAGE LIMITED Silvia Yates APRN.VP CLINICAL [address] [place] [address] [facility] [address] [place] [address] Referral ID Status Reason Start Date Expiration Date V isits Requested Visits Authorized [id number] Closed Auto-Generate d Referral 12/08/2022 01/07/2024 1 1 [facility] for referral (narrative)* Diagnostic Procedure Only (Routine) - Pending Review Specialty Diagnoses / Procedures Referred By Rita mehta Referred To Contact [facility] Diagnoses Encounter for screening mammogram for breast cancer Procedures KATHERINE SCREENING W ABHISHEK SCREENING DIGITAL BREAST TOMOSYNTHESIS BI SCREENING MAMMOGRAPHY BI 2-VIEW BREAST INC CAD Louis Dobbs MD [address] [place] [address] [facility] [address] [place] [address] Referral ID Status Reason Start Date Expiration Date Visits Requested Visits Authorized [id number] Pending Review Auto-Generat ed Referral 01/17/2024 02/15/2025 1 1 [facility] for referral (narrative)No reason for referral information availableWAvita [facility] Work Phone: Reason for visit Narrative* MRI/CAT Scan (Routine) - Closed Specialty Diagnoses / Procedures Referred By Rita mehta Referred To Contact Diagnoses Chest pain, unspecified type Other forms of dyspnea Paroxysmal atrial fibrillation Personal history of transient ischemic attack (TIA), and cerebral infarction without residual deficits Other cardiomyopathies 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 Nicotine dependence, cigarettes, uncomplicated Rheumatic mitral stenosis with insufficiency Essential (primary) hypertension Hyperlipidemia, unspecified hyperlipidemia type Presence of xenogenic heart valve Presence of cardiac pacemaker Procedures CT ANGIO CARDIAC WITH CORONARY ARTERIES CHG CTA HRT CORNRY ART/BYPASS GRFTS CONTRST 3D POST HomeroShaovn MD [address] [place] [address] Phone: tel: fax: [facility] [address] [place] [address] Referral ID Status Reason Start Date Expiration Date Visits Re quested Visits Authorized [id number] Closed 08/14/2024 09/08/2025 1 1 [facility] for visit Narrative* Diagnostic Procedure Only (Urgent) - Closed Specialty Diagnoses / Procedures Referred By Rita mehta Referred To Contact [facility] Diagnoses Bilateral lower extremity pain Pedal edema Procedures US DVT LOWER BILATERAL DUP-SCAN XTR VEINS COMPLETE BILATERAL STUDY Judy Haywood, IRONER SOCK.VP CLINICAL [address] [place] [address] Phone: tel: fax: [place] [address] Referral ID Status Reason Start Date Expiration Date V isits Requested Visits Authorized [id number] Closed Auto-Generate d Referral 12/09/2024 01/08/2026 1 1 [facility] for visit Narrative* Diagnostic Procedure Only (Routine) - Closed Specialty Diagnoses / Procedures Referred By Rita mehta Referred To Contact [facility] Diagnoses Encounter for screening mammogram for malignant neoplasm of breast Procedures KATHERINE SCREENING W ABHISHEK SCREENING DIGITAL BREAST TOMOSYNTHESIS BI SCREENING MAMMOGRAPHY BI 2-VIEW BREAST INC CAD Louis Dobbs MD [address] [place] [address] Phone: tel: fax: [facility] [address] [place] [address] Referral ID Status Reason Start Date Expiration Date V isits Requested Visits Authorized [id number] Closed Auto-Generate d Referral 03/24/2025 04/23/2026 1 1 [facility] Summary Purpose Family History Relationship Condition Age at Onset Recorded Date/T rafal Unknown Family History?- Unknown June 182015 3:21pm Family History?- Unknown October 23, 2018 10:42am Relationship Condition Age at Onset Recorded Date/T rafal Unknown Family History?- Unknown June 182015 2:21pm Family History?- Unknown October 23, 2018 9:42am Advance Directives Documents on File Type Date Recorded 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 Advance Directive(s) Advance Directive(s) 10/11/2020 6:25 AM Advance Directive(s) 07/12/2016 7:20 AM Advance Directive(s) 06/23/2016 1:49 PM Advance Directive Response Recorded Date/ Time Advance Directives No September 12:24pm Living Will No October 12, 2021 4:59pm Power of Wet Roaster No October 12 4:59pm Advance Directive Response Recorded Date/ Time Advance Directives No September 12:24pm Living Will No November 10, 2021 10:47am Power of Wet Roaster No November 10 10:47am Advance Directive Response Recorded Date/ Time Advance Directives No September 12:24pm Living Will No December 06, 2021 10 :09am Power of Wet Roaster No December 06, 2021 10:09am Advance Directive Response Recorded Date/ Time Advance Directives No September 12:24pm Living Will No December 14, 2021 1 0:16am Power of Wet Roaster No December 14, 2021 10:16am Advance Directive Response Recorded Date/ Time Advance Directives No September 12:24pm Living Will No December 14, 2021 1 :48pm Power of Wet Roaster No December 14, 2021 1:48pm Documents on File Type Date Recorded 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 Advance Directive(s) Advance Directive(s) 10/11/2020 6:25 AM Advance Directive(s) 07/12/2016 7:20 AM Advance Directive(s) 06/23/2016 1:49 PM Advance Directive Response Recorded Date/ Time Name of Medical Power of Wet Roaster millicent carrillo February 16, 2022 12:55pm Advance Directives No September 12:24pm Living Will Yes February 16, 2022 12:55pm Power of Wet Roaster Yes February 16 12:55pm Advance Directive Response Recorded Date/ Time Name of Medical Power of Wet Roaster millicent carrillo February 16, 2022 12:55pm Advance Directives No September 12:24pm Living Will No February 16, 2022 5:37pm Power of Wet Roaster No February 16 5:37pm Advance Directive Response Recorded Date/ Time Name of Medical Power of Wet Roaster millicent carrillo February 16, 2022 12:55pm Advance Directives No September 12:24pm Living Will No May 30 11:29am Power of Wet Roaster No May 30, 2022 11:29am Advance Directive Response Recorded Date/ Time Name of Medical Power of Wet Roaster millicent carrillo February 16, 2022 12:55pm Advance Directives No September 12:24pm Living Will No June 08 4:22pm Power of Wet Roaster No June 08, 2022 4:22pm Advance Directive Response Recorded Date/ Time Name of Medical Power of Wet Roaster millicent carrillo February 16, 2022 12:55pm Advance Directives No September 12:24pm Living Will No June 10 3:58pm Power of Wet Roaster No June 10, 2022 3:58pm Advance Directive Response Recorded Date/ Time Advance Directives No September 12:24pm Living Will No June 10 3:58pm Power of Wet Roaster No June 10, 2022 3:58pm Advance Directive Response Recorded Date/ Time Advance Directives No September 11:24am Living Will No June 25, 2 023 5:20am Power of Wet Roaster No June 25, 2023 5:20am Advance Directive Response Recorded Date/ Time Advance Directives No September 11:24am Living Will No July 24, 2 023 12:21pm Power of Wet Roaster No July 24, 2023 12:21pm Advance Directive Response Recorded Date/ Time Advance Directives No September 11:24am Living Will No July 24, 2 023 3:33pm Power of Wet Roaster No July 24, 2023 3:33pm Advance Directive Response Recorded Date/ Time Advance Directives No September 12:24pm Advance Directive Response Recorded Date/ Time Do you have a Healthcare Power of Wet Roaster? No January 13, 2025 4:30pm Advance Directives No September 12:24pm Advance Directive Response Recorded Date/ Time Do you have a Healthcare Power of Wet Roaster? No January 13, 2025 4:30pm Do you have a Healthcare Power of Wet Roaster? No April 12, 2025 5:08am Advance Directives No September 12:24pm Chief Complaint and Reason for Visit Chief Complaint FINGERSTICK 3 mos remote PPM f/u HOME DRAW LAB WORK INT LABS Audible wheezing, bruising per nurse Matthew [facility]WORK H[facility] LABWORK HOME DRAW LAB [...] INT LABS Audible wheezing, bruising per nurse Matthew [facility]WORK [facility]WORK HOME DRAW LAB WORK [facility]WORK ANXIETY 3 mos remote PPM f/u [facility]WORK 10 m fu [facility] anxiety Reason for Visit Complete heart [...] INT LABS Audible wheezing, bruising per nurse Matthew [facility] LABWORK [facility] LABWORK HOME DRAW LAB WORK [facility]WORK ANXIETY 3 mos remote PPM f/u [facility]WORK 10 m fu [facility]WORK anxiety Reason for Visit Shortness of [...] PPM f/u [facility]WORK 10 m fu [facility]WORK anxiety [facility]WORK Reason for Visit Complete heart block Non-ischemic cardiomyopathy Presence of cardiac pacemaker Sick sinus syndrome Hypotension History of mitral valve replacement with bioprosthetic valve Hyperlipidemia Non-ischemic cardiomyopathy Paroxysmal atrial fibrillation Presence of cardiac pacemaker Chief Complaint [facility] LABWORK [facility]WORK HOME DRAW LAB WORK [facility]WORK ANXIETY 3 mos remote PPM f/u [facility]WORK 10 m fu [facility] anxiety [facility]WORK NOSE BLEED Reason for Visit Complete heart block Non-ischemic cardiomyopathy Presence of cardiac pacemaker Sick sinus syndrome Hypotension History of mitral valve replacement with bioprosthetic valve Hyperlipidemia Non-ischemic cardiomyopathy Paroxysmal atrial fibrillation Presence of cardiac pacemaker Chief Complaint [facility]WORK HOME DRAW LAB WORK [facility]WORK ANXIETY 3 mos remote PPM f/u [facility]WORK 10 m fu [facility] anxiety [facility] LABWORK NOSE BLEED HOMEDRAW [...] PPM f/u H[facility] LABWORK 10 m fu [facility]WORK anxiety [facility] LABWORK NOSE BLEED HOMEDRAW [...] PPM f/u [facility] LABWORK 10 m fu [facility]WORK anxiety [facility] LABWORK NOSE BLEED HOMEDRAW [...] PPM f/u H[facility] LABWORK 10 m fu [facility]WORK anxiety [facility] LABWORK NOSE BLEED HOMEDRAW [...] PPM f/u H[facility] LABWORK 10 m fu [facility]WORK anxiety [facility] LABWORK NOSE BLEED HOMEDRAW [...] Chief Complaint [facility] LABWORK 10 m fu [facility]WORK anxiety [facility] LABWORK NOSE BLEED HOMEDRAW [...] 2024 9:17 am Non-ischemic cardiomyopathy October 11, 9:17am Paroxysmal atrial fibrillation October 9:17am Presence [...] FCE/RX HERE February 27, 2025 12:5 1pm Chief Complaint Admit Date FALL January 13, 2025 1:40p m Pacer Check Remote February 12, 2025 2:00a m Pacer Check Remote February 13, 2025 9:00 am Annual in-clinic check February 13, 2025 1 2:57pm FCE/RX HERE February 27, 2025 12:5 1pm cough/cold April 12, 2025 5:08am Additional Source Comments INFORMATION SOURCE (unrecogn ized section and content) DATE CREATED AUTHOR 10/12/2020 [facility] ([place]) DATE CREATED AUTHOR AUTHOR'S ORGANIZ ATION 11/19/2020 [facility] DATE CREATED AUTHOR AUTHOR'S ORGANIZ ATION 11/25/2020 [facility] DATE CREATED AUTHOR AUTHOR[facility]S [facility]GANIZ ATION [facility] [place] DATE CREATED AUTHOR AUTHOR'S ORGANIZ ATION 06/17/2022 [facility] DATE CREATED AUTHOR AUTHOR'S ORGANIZ ATION 09/28/2024 [facility] DATE CREATED AUTHOR AUTHOR'S ORGANIZ ATION 04/05/2025 [facility] DATE CREATED AUTHOR AUTHOR'S ORGANIZ ATION 04/11/2025 [facility] Source Comments (unrecognize d section and content) In the event this informatio n is protected by the Federal Confidentiality of Alcohol and Drug Abuse Patient Records regulations: The Federal rules restrict any use of the information to criminally investigate or prosecute any alcohol or drug abuse patient.[facility] the event this information is protected by the Federal Confidentiality of Alcohol and Drug Abuse Patient Records regulations: The Federal rules restrict any use of the information to criminally investigate or prosecute any alcohol or drug abuse patient.[facility] the event this information is protected by the Federal Confidentiality of Alcohol and Drug Abuse Patient Records regulations: The Federal rules restrict any use of the information to criminally investigate or prosecute any alcohol or drug abuse patient.[facility] CampusIn the event this information is protected by [...] or prosecute any alcohol or drug abuse patient.[facility] CampusIn the event this information is protected by the Federal Confidentiality of Alcohol and Drug Abuse Patient Records regulations: The Federal rules restrict any use of the information to criminally investigate or prosecute any alcohol or drug abuse patient.[facility] CampusIn the event this information is protected by the Federal Confidentiality of Alcohol and Drug Abuse Patient Records regulations: The Federal rules restrict any use of the information to criminally investigate or prosecute any alcohol or drug abuse patient.[facility] CampusIn the event this information is protected by the Federal Confidentiality of Alcohol and Drug Abuse Patient Records regulations: The Federal rules restrict any use of the information to criminally investigate or prosecute any alcohol or drug abuse patient.[facility] CampusIn the event this information is protected by the Federal Confidentiality of Alcohol and Drug Abuse Patient Records regulations: The Federal rules restrict any use of the information to criminally investigate or prosecute any alcohol or drug abuse patient.[facility] CampusIn the event this information is protected by the Federal Confidentiality of Alcohol and Drug Abuse Patient Records regulations: The Federal rules restrict any use of the information to criminally investigate or prosecute any alcohol or drug abuse patient.[facility] CampusIn the event this information is protected by the Federal Confidentiality of Alcohol and Drug Abuse Patient Records regulations: The Federal rules restrict any use of the information to criminally investigate or prosecute any alcohol or drug abuse patient.[facility] CampusIn the event this information is protected by the Federal Confidentiality of Alcohol and Drug Abuse Patient Records regulations: The Federal rules restrict any use of the information to criminally investigate or prosecute any alcohol or drug abuse patient.[facility] CampusIn the event this information is protected by the Federal Confidentiality of Alcohol and Drug Abuse Patient Records regulations: The Federal rules restrict any use of the information to criminally investigate or prosecute any alcohol or drug abuse patient.[facility] CampusIn the event this information is protected by the Federal Confidentiality of Alcohol and Drug Abuse Patient Records regulations: The Federal rules restrict any use of the information to criminally investigate or prosecute any alcohol or drug abuse patient.[facility] CampusIn the event this information is protected by the Federal Confidentiality of Alcohol and Drug Abuse Patient Records regulations: The Federal rules restrict any use of the information to criminally investigate or prosecute any alcohol or drug abuse patient.[facility] CampusIn the event this information is protected by the Federal Confidentiality of Alcohol and Drug Abuse Patient Records regulations: The Federal rules restrict any use of the information to criminally investigate or prosecute any alcohol or drug abuse patient.[facility] CampusIn the event this information is protected by the Federal Confidentiality of Alcohol and Drug Abuse Patient Records regulations: The Federal rules restrict any use of the information to criminally investigate or prosecute any alcohol or drug abuse patient.[facility] CampusIn the event this information is protected by the Federal Confidentiality of Alcohol and Drug Abuse Patient Records regulations: The Federal rules restrict any use of the information to criminally investigate or prosecute any alcohol or drug abuse patient.[facility] CampusIn the event this information is protected by the Federal Confidentiality of Alcohol and Drug Abuse Patient Records regulations: The Federal rules restrict any use of the information to criminally investigate or prosecute any alcohol or drug abuse patient.[facility] CampusIn the event this information is protected by the Federal Confidentiality of Alcohol and Drug Abuse Patient Records regulations: The Federal rules restrict any use of the information to criminally investigate or prosecute any alcohol or drug abuse patient.[facility] CampusIn the event this information is protected by the Federal Confidentiality of Alcohol and Drug Abuse Patient Records regulations: The Federal rules restrict any use of the information to criminally investigate or prosecute any alcohol or drug abuse patient.[facility] CampusIn the event this information is protected by the Federal Confidentiality of Alcohol and Drug Abuse Patient Records regulations: The Federal rules restrict any use of the information to criminally investigate or prosecute any alcohol or drug abuse patient.[facility] CampusIn the event this information is protected by the Federal Confidentiality of Alcohol and Drug Abuse Patient Records regulations: The Federal rules restrict any use of the information to criminally investigate or prosecute any alcohol or drug abuse patient.[facility] CampusIn the event this information is protected by the Federal Confidentiality of Alcohol and Drug Abuse Patient Records regulations: The Federal rules restrict any use of the information to criminally investigate or prosecute any alcohol or drug abuse patient.[facility] CampusIn the event this information is protected by the Federal Confidentiality of Alcohol and Drug Abuse Patient Records regulations: The Federal rules restrict any use of the information to criminally investigate or prosecute any alcohol or drug abuse patient.[facility] CampusIn the event this information is protected by the Federal Confidentiality of Alcohol and Drug Abuse Patient Records regulations: The Federal rules restrict any use of the information to criminally investigate or prosecute any alcohol or drug abuse patient.[facility] CampusIn the event this information is protected by the Federal Confidentiality of Alcohol and Drug Abuse Patient Records regulations: The Federal rules restrict any use of the information to criminally investigate or prosecute any alcohol or drug abuse patient.[facility] CampusIn the event this information is protected by the Federal Confidentiality of Alcohol and Drug Abuse Patient Records regulations: The Federal rules restrict any use of the information to criminally investigate or prosecute any alcohol or drug abuse patient.[facility] CampusIn the event this information is protected by the Federal Confidentiality of Alcohol and Drug Abuse Patient Records regulations: The Federal rules restrict any use of the information to criminally investigate or prosecute any alcohol or drug abuse patient.[facility] CampusIn the event this information is protected by the Federal Confidentiality of Alcohol and Drug Abuse Patient Records regulations: The Federal rules restrict any use of the information to criminally investigate or prosecute any alcohol or drug abuse patient.[facility] CampusIn the event this information is protected by the Federal Confidentiality of Alcohol and Drug Abuse Patient Records regulations: The Federal rules restrict any use of the information to criminally investigate or prosecute any alcohol or drug abuse patient.[facility] CampusIn the event this information is protected by the Federal Confidentiality of Alcohol and Drug Abuse Patient Records regulations: The Federal rules restrict any use of the information to criminally investigate or prosecute any alcohol or drug abuse patient.[facility] CampusIn the event this information is protected by the Federal Confidentiality of Alcohol and Drug Abuse Patient Records regulations: The Federal rules restrict any use of the information to criminally investigate or prosecute any alcohol or drug abuse patient.[facility] CampusIn the event this information is protected by the Federal Confidentiality of Alcohol and Drug Abuse Patient Records regulations: The Federal rules restrict any use of the information to criminally investigate or prosecute any alcohol or drug abuse patient.[facility] CampusIn the event this information is protected by the Federal Confidentiality of Alcohol and Drug Abuse Patient Records regulations: The Federal rules restrict any use of the information to criminally investigate or prosecute any alcohol or drug abuse patient.[facility] CampusIn the event this information is protected by the Federal Confidentiality of Alcohol and Drug Abuse Patient Records regulations: The Federal rules restrict any use of the information to criminally investigate or prosecute any alcohol or drug abuse patient.[facility] CampusIn the event this information is protected by the Federal Confidentiality of Alcohol and Drug Abuse Patient Records regulations: The Federal rules restrict any use of the information to criminally investigate or prosecute any alcohol or drug abuse patient.[facility] CampusIn the event this information is protected by the Federal Confidentiality of Alcohol and Drug Abuse Patient Records regulations: The Federal rules restrict any use of the information to criminally investigate or prosecute any alcohol or drug abuse patient.[facility] CampusIn the event this information is protected by the Federal Confidentiality of Alcohol and Drug Abuse Patient Records regulations: The Federal rules restrict any use of the information to criminally investigate or prosecute any alcohol or drug abuse patient.[facility] CampusIn the event this information is protected by the Federal Confidentiality of Alcohol and Drug Abuse Patient Records regulations: The Federal rules restrict any use of the information to criminally investigate or prosecute any alcohol or drug abuse patient.[facility] CampusIn the event this information is protected by the Federal Confidentiality of Alcohol and Drug Abuse Patient Records regulations: The Federal rules restrict any use of the information to criminally investigate or prosecute any alcohol or drug abuse patient.[facility] CampusIn the event this information is protected by the Federal Confidentiality of Alcohol and Drug Abuse Patient Records regulations: The Federal rules restrict any use of the information to criminally investigate or prosecute any alcohol or drug abuse patient.[facility] CampusIn the event this information is protected by the Federal Confidentiality of Alcohol and Drug Abuse Patient Records regulations: The Federal rules restrict any use of the information to criminally investigate or prosecute any alcohol or drug abuse patient.[facility] CampusIn the event this information is protected by the Federal Confidentiality of Alcohol and Drug Abuse Patient Records regulations: The Federal rules restrict any use of the information to criminally investigate or prosecute any alcohol or drug abuse patient.[facility] CampusIn the event this information is protected by the Federal Confidentiality of Alcohol and Drug Abuse Patient Records regulations: The Federal rules restrict any use of the information to criminally investigate or prosecute any alcohol or drug abuse patient.[facility] CampusIn the event this information is protected by the Federal Confidentiality of Alcohol and Drug Abuse Patient Records regulations: The Federal rules restrict any use of the information to criminally investigate or prosecute any alcohol or drug abuse patient.[facility] CampusIn the event this information is protected by the Federal Confidentiality of Alcohol and Drug Abuse Patient Records regulations: The Federal rules restrict any use of the information to criminally investigate or prosecute any alcohol or drug abuse patient.[facility] CampusIn the event this information is protected by the Federal Confidentiality of Alcohol and Drug Abuse Patient Records regulations: The Federal rules restrict any use of the information to criminally investigate or prosecute any alcohol or drug abuse patient.[facility] CampusIn the event this information is protected by the Federal Confidentiality of Alcohol and Drug Abuse Patient Records regulations: The Federal rules restrict any use of the information to criminally investigate or prosecute any alcohol or drug abuse patient.[facility] CampusIn the event this information is protected by the Federal Confidentiality of Alcohol and Drug Abuse Patient Records regulations: The Federal rules restrict any use of the information to criminally investigate or prosecute any alcohol or drug abuse patient.[facility] CampusIn the event this information is protected by the Federal Confidentiality of Alcohol and Drug Abuse Patient Records regulations: The Federal rules restrict any use of the information to criminally investigate or prosecute any alcohol or drug abuse patient.[facility] the event this information is protected by the Federal Confidentiality of Alcohol and Drug Abuse Patient Records regulations: The Federal rules restrict any use of the information to criminally investigate or prosecute any alcohol or drug abuse patient.[facility] CampusIn the event this information is protected by the Federal Confidentiality of Alcohol and Drug Abuse Patient Records regulations: The Federal rules restrict any use of the information to criminally investigate or prosecute any alcohol or drug abuse patient.[facility] CampusIn the event this information is protected by [...] or prosecute any alcohol or drug abuse patient.[facility] CampusIn the event this information is protected by the Federal Confidentiality of Alcohol and Drug Abuse Patient Records regulations: The Federal rules restrict any use of the information to criminally investigate or prosecute any alcohol or drug abuse patient.[facility] CampusIn the event this information is protected by the Federal Confidentiality of Alcohol and Drug Abuse Patient Records regulations: The Federal rules restrict any use of the information to criminally investigate or prosecute any alcohol or drug abuse patient.[facility] CampusIn the event this information is protected by the Federal Confidentiality of Alcohol and Drug Abuse Patient Records regulations: The Federal rules restrict any use of the information to criminally investigate or prosecute any alcohol or drug abuse patient.[facility] CampusIn the event this information is protected by the Federal Confidentiality of Alcohol and Drug Abuse Patient Records regulations: The Federal rules restrict any use of the information to criminally investigate or prosecute any alcohol or drug abuse patient.[facility] CampusIn the event this information is protected by the Federal Confidentiality of Alcohol and Drug Abuse Patient Records regulations: The Federal rules restrict any use of the information to criminally investigate or prosecute any alcohol or drug abuse patient.[facility] CampusIn the event this information is protected by the Federal Confidentiality of Alcohol and Drug Abuse Patient Records regulations: The Federal rules restrict any use of the information to criminally investigate or prosecute any alcohol or drug abuse patient.[facility] CampusIn the event this information is protected by the Federal Confidentiality of Alcohol and Drug Abuse Patient Records regulations: The Federal rules restrict any use of the information to criminally investigate or prosecute any alcohol or drug abuse patient.[facility] CampusIn the event this information is protected by the Federal Confidentiality of Alcohol and Drug Abuse Patient Records regulations: The Federal rules restrict any use of the information to criminally investigate or prosecute any alcohol or drug abuse patient.[facility] CampusIn the event this information is protected by the Federal Confidentiality of Alcohol and Drug Abuse Patient Records regulations: The Federal rules restrict any use of the information to criminally investigate or prosecute any alcohol or drug abuse patient.[facility] CampusIn the event this information is protected by the Federal Confidentiality of Alcohol and Drug Abuse Patient Records regulations: The Federal rules restrict any use of the information to criminally investigate or prosecute any alcohol or drug abuse patient.[facility] CampusIn the event this information is protected by the Federal Confidentiality of Alcohol and Drug Abuse Patient Records regulations: The Federal rules restrict any use of the information to criminally investigate or prosecute any alcohol or drug abuse patient.[facility] CampusIn the event this information is protected by the Federal Confidentiality of Alcohol and Drug Abuse Patient Records regulations: The Federal rules restrict any use of the information to criminally investigate or prosecute any alcohol or drug abuse patient.[facility] CampusIn the event this information is protected by the Federal Confidentiality of Alcohol and Drug Abuse Patient Records regulations: The Federal rules restrict any use of the information to criminally investigate or prosecute any alcohol or drug abuse patient.[facility] CampusIn the event this information is protected by the Federal Confidentiality of Alcohol and Drug Abuse Patient Records regulations: The Federal rules restrict any use of the information to criminally investigate or prosecute any alcohol or drug abuse patient.[facility] CampusIn the event this information is protected by the Federal Confidentiality of Alcohol and Drug Abuse Patient Records regulations: The Federal rules restrict any use of the information to criminally investigate or prosecute any alcohol or drug abuse patient.[facility] CampusIn the event this information is protected by the Federal Confidentiality of Alcohol and Drug Abuse Patient Records regulations: The Federal rules restrict any use of the information to criminally investigate or prosecute any alcohol or drug abuse patient.[facility] Reason for Visit (unrecogniz ed section and content) Reason Comments verbal orders Reason Comments Medication Request Reason Onset Date Comments Refill Request 12/06/2021 Reason Comments asking for verbal order Reason Comments Epistaxis Reason Comments Release Of Medical Records Reason Comments HHAide services Reason Comments Clinical Update Reason Comments HH Orders Reason Comments [facility] PT POC Orders Reason Comments Home Health Point of Care Results Reason Comments report of patient fall Reason Comments Patient Update Reason Comments INR and Coumadin dosing Reason Comments Refill Request Reason Comments [facility] POC and patient update Reason Comments Patient Question Patient Update Orders Reason Comments [facility] HH/verbal order n eeded Reason Comments Alysa Vermilion /inquiring about INRs Reason Comments Clinical Update INR Reason Onset Date Comments Transition Of Care 10/18/2022 Reason Onset Date Comments Refill Request 11/02/2022 Reason Comments Patient Update Fall on Monday Reason Onset Date Comments Radiology Mammogram 12/08/2022 at [facility] Reason Comments Results Reason Onset Date Comments [...] REAL TIME WITH IMAGE LIMITED Silvia Yates APRN.VP CLINICAL [address] [place] [address] [facility] [address] [place] [address] Referral ID Status Reason Start Date Expiration Date V isits Requested Visits Authorized [id number] Closed Auto-Generate d Referral 12/08/2022 01/07/2024 1 1 Reason Onset Date Comments Refill Request 09/29/2023 Reason Onset Date Comments Refill Request 10/03/2023 Reason Onset Date Comments Refill Request 04/17/2023 Refill Request 10/09/2023 Reason Onset Date Comments Population Health Navigation Outreach 11/28/2023 [place] [facility] and care gaps Reason Onset Date Comments Refill Request 11/28/2023 Reason Onset Date Comments Refill Request 12/26/2023 Reason Onset Date Comments Population Health Navigation Outreach 01/30/2024 [place] [facility]/HCC and care gaps Reason Onset Date [...] Comments Orders Reason Comments Functional Capacity Eval hoverround stat ed that she needs a functional capacity test Reason Comments F/U 3 Month Care Teams (unrecognized sec tion and content) Health Technical Writer Relationship Specialty Start Date End Date Louis Dobbs MD [address] [place], [place] [id number] PCP - General 12/27/06 Lee Carrizales P [address] [place] [address] Specialty Carbon Brush Maker LEAD MAN OVER ALL DIES IN PATTERN SHOP 08/19/13 Malik Reis (Hist) [address] [place] [address] Consulting Cardiology 10/22/13 Health Technical Writer Relationship Specialty Start Date End Date Louis Dobbs MD [address] [place] [address] PCP - General 12/27/06 Lee Carrizales P [address] [place] [address] Specialty Carbon Brush Maker LEAD MAN OVER ALL DIES IN PATTERN SHOP 08/19/13 Malik Reis (Hist) [address] [place] [address] Consulting Cardiology 10/22/13 Health Technical Writer Relationship Specialty Start Date End Date Louis Dobbs MD [address] [place] [address] PCP - General 12/27/06 Lee Carrizales P [address] [place] [address] Specialty Carbon Brush Maker LEAD MAN OVER ALL DIES IN PATTERN SHOP 08/19/13 Malik Reis (Hist) [address] [place] [address] Consulting Cardiology 10/22/13 Health Technical Writer Relationship Specialty Start Date End Date Louis Dobbs MD [address] [place] [address] PCP - General 12/27/06 Lee Carrizales P [address] [place] [address] Specialty Carbon Brush Maker LEAD MAN OVER ALL DIES IN PATTERN SHOP 08/19/13 Malik Reis (Hist) [address] [place] [address] Consulting Cardiology 10/22/13 Health Technical Writer Relationship Specialty Start Date End Date Louis Dobbs MD [address] [place] [address] PCP - General 12/27/06 Lee Carrizales P [address] [place] [address] Specialty Carbon Brush Maker LEAD MAN OVER ALL DIES IN PATTERN SHOP 08/19/13 Mlaik Reis (Hist) [address] [place] [address] Consulting Cardiology 10/22/13 Health Technical Writer Relationship Specialty Start Date End Date Louis Dobbs MD [address] [place] [address] PCP - General 12/27/06 Lee Carrizales P [address] [place] [address] Specialty Carbon Brush Maker LEAD MAN OVER ALL DIES IN PATTERN SHOP 08/19/13 Malik Reis (Hist) [address] [place] [address] Consulting Cardiology 10/22/13 Health Technical Writer Relationship Specialty Start Date End Date Louis Dobbs MD [address] [place] [address] PCP - General 12/27/06 Lee Carrizales P [address] [place] [address] Specialty Carbon Brush Maker LEAD MAN OVER ALL DIES IN PATTERN SHOP 08/19/13 Malik Reis (Hist) [address] [place] [address] Consulting Cardiology 10/22/13 Health Technical Writer Relationship Specialty Start Date End Date Louis Dobbs MD [address] [place] [address] PCP - General 12/27/06 Lee Carrizales P [address] [place] [address] Specialty Carbon Brush Maker LEAD MAN OVER ALL DIES IN PATTERN SHOP 08/19/13 aMlik Reis (Hist) [address] [place] [address] Consulting Cardiology 10/22/13 Health Technical Writer Relationship Specialty Start Date End Date Louis Dobbs MD [address] [place] [address] PCP - General 12/27/06 Lee Carrizales P [address] [place] [address] Specialty Carbon Brush Maker LEAD MAN OVER ALL DIES IN PATTERN SHOP 08/19/13 Malik Reis (Hist) [address] [place] [address] Consulting Cardiology 10/22/13 Health Technical Writer Relationship Specialty Start Date End Date Louis Dobbs MD [address] [place] [address] PCP - General 12/27/06 Lee Carrizales P [address] [place] [address] Specialty Carbon Brush Maker LEAD MAN OVER ALL DIES IN PATTERN SHOP 08/19/13 Malik Reis (Hist) [address] [place] [address] Consulting Cardiology 10/22/13 Health Technical Writer Relationship Specialty Start Date End Date Louis Dobbs MD [address] [place] [address] PCP - General 12/27/06 Lee Carrizales P [address] [place] [address] Specialty Carbon Brush Maker LEAD MAN OVER ALL DIES IN PATTERN SHOP 08/19/13 Malik Reis (Hist) [address] [place] [address] Consulting Cardiology 10/22/13 Health Technical Writer Relationship Specialty Start Date End Date Louis Dobbs MD [address] [place] [address] PCP - General 12/27/06 Lee Carrizales P [address] [place] [address] Specialty Carbon Brush Maker LEAD MAN OVER ALL DIES IN PATTERN SHOP 08/19/13 Malik Reis (Hist) [address] [place] [address] Consulting Cardiology 10/22/13 Health Technical Writer Relationship Specialty Start Date End Date Louis Dobbs MD [address] [place] [address] PCP - General 12/27/06 Lee Carrizales P [address] [place] [address] Specialty Carbon Brush Maker LEAD MAN OVER ALL DIES IN PATTERN SHOP 08/19/13 Malik Reis [address] [place] [address] Consulting Cardiology 10/22/13 Health Technical Writer Relationship Specialty Start Date End Date Louis Dobbs MD [address] [place] [address] PCP - General 12/27/06 Lee Carrizales P [address] [place] [address] Specialty Carbon Brush Maker LEAD MAN OVER ALL DIES IN PATTERN SHOP 08/19/13 Malik Reis [address] [place] [address] Consulting Cardiology 10/22/13 Health Technical Writer Relationship Specialty Start Date End Date Louis Dobbs MD [address] [place] [address] PCP - General 12/27/06 Lee Carrizales P [address] [place] [address] Specialty Carbon Brush Maker LEAD MAN OVER ALL DIES IN PATTERN SHOP 08/19/13 Malik Reis [address] [place] [address] Consulting Cardiology 10/22/13 Team Status: Active Member [...] Provider Active Lucio Basurto PA, PA Attending Provider Active Health Technical Writer Relationship Specialty Start Date End Date Louis Dobbs MD [address] [place] [address] PCP - General 12/27/06 Lee Carrizales P [address] [place] [address] Specialty Carbon Brush Maker LEAD MAN OVER ALL DIES IN PATTERN SHOP 08/19/13 Malik Reis [address] [place] [address] Consulting Cardiology 10/22/13 Team Status: Inactive Member Role Status Dates Dr. Louis Dobbs MD Primary Care Provider, Refer ring Provider Active Bernie Wallace Attending Provider Active Team Status: Active Member Role Status Dates Dr. Louis Dobbs MD Primary Care Provider Active Lucio CLAUDIO PA Attending Provider, Referr ing Provider Active Team Status: Inactive Member Role Status Dates Dr. Louis Dobbs MD Primary Care Provider Active Lucio CLAUDIO PA Attending Provider, Referr ing Provider Active Health Technical Writer Relationship Specialty Start Date End Date Louis Dobbs MD [address] [facility] [place] [address] PCP - General 12/27/06 Lee Carrizales P [address] [place] [address] Specialty Carbon Brush Maker LEAD MAN OVER ALL DIES IN PATTERN SHOP 08/19/13 Malik Reis [address] [place] [address] Consulting Cardiology 10/22/13 Health Technical Writer Relationship Specialty Start Date End Date Louis Dobbs MD [address] [place] [address] PCP - General 12/27/06 Lee Carrizales P [address] [place] [address] Specialty Carbon Brush Maker LEAD MAN OVER ALL DIES IN PATTERN SHOP 08/19/13 Malik Reis [address] [place] [address] Consulting Cardiology 10/22/13 Health Technical Writer Relationship Specialty Start Date End Date Louis Dobbs MD [address] [place] [address] PCP - General 12/27/06 Lee Carrizales P [address] [place] [address] Specialty Carbon Brush Maker LEAD MAN OVER ALL DIES IN PATTERN SHOP 08/19/13 Malik Reis [address] [place] [address] Consulting Cardiology 10/22/13 Health Technical Writer Relationship Specialty Start Date End Date Louis Dobbs MD [address] [place] [address] PCP - General 12/27/06 Lee Carrizales [address] [place] [address] Specialty Carbon Brush Maker LEAD MAN OVER ALL DIES IN PATTERN SHOP 08/19/13 Malik Reis [address] [place] [address] Consulting Cardiology 10/22/13 Team Status: Active Member Role Status Dates Dr. Louis Dobbs MD Primary Care Provider, Atten ding Provider Active Team Status: Active Member Role Status Dates Dr. Louis Dobbs MD Primary Care Provider Active Dr. Jonnathan Gama MD Attending Provider Active Team Status: Inactive Member Role Status Dates Dr. Louis Dobbs MD Primary Care Provider Active Myra Reese PHLEBOTOMIST MEDICAL LAB ASSISTANT, PHLEBOTOMIST MEDICAL LAB ASSISTANT-C Attending Provider, Referring Provider Active Health Technical Writer Relationship Specialty Start Date End Date Louis Dobbs MD [address] [place] [address] PCP - General 12/27/06 Lee Carrizales [address] [place] [address] Specialty Carbon Brush Maker LEAD MAN OVER ALL DIES IN PATTERN SHOP 08/19/13 Malik Reis [address] [place] [address] (Fax) Consulting Cardiology 10/22/13 Health Technical Writer Relationship Specialty Start Date End Date Louis Dobbs MD [address] [place] [address] (Fax) PCP - General 12/27/06 Lee Carrizales [address] [place] [address] (Fax) Specialty Carbon Brush Maker LEAD MAN OVER ALL DIES IN PATTERN SHOP 08/19/13 Malik Reis [address] [place] [address] (Fax) Consulting Cardiology 10/22/13 Health Technical Writer Relationship Specialty Start Date End Date Louis Dobbs MD [address] [place] [address] (Fax) PCP - General 12/27/06 Lee Carrizales [address] [place] [address] (Fax) Specialty Carbon Brush Maker LEAD MAN OVER ALL DIES IN PATTERN SHOP 08/19/13 Malik Reis [address] [place] [address] (Fax) Consulting Cardiology 10/22/13 Health Technical Writer Relationship Specialty Start Date End Date Louis Dobbs MD [address] [place] [address] PCP - General 12/27/06 Lee Carrizales [address] [place] [address] Specialty Carbon Brush Maker LEAD MAN OVER ALL DIES IN PATTERN SHOP 08/19/13 Malik Reis [address] [place] [address] Consulting Cardiology 10/22/13 Health Technical Writer Relationship Specialty Start Date End Date Louis Dobbs MD [address] [place] [address] PCP - General 12/27/06 Lee Carrizales [address] [place] [address] Specialty Carbon Brush Maker LEAD MAN OVER ALL DIES IN PATTERN SHOP 08/19/13 Malik Reis [address] [place] [address] Consulting Cardiology 10/22/13 Team Status: Inactive Member Role Status Dates Dr. Louis Dobbs MD Primary Care Provider Active Dr. Bryson Hua MD Emergency Provider Active Team Status: Active Member Role Status Dates Dr. Louis Dobbs MD Primary Care Provider Active Arie Thomas MD Emergency Provider Active Dr. Merna Scherer , Admit Provider, Att ending Provider, Other Provider [...] MD Emergency Provider Active Dr. Merna Scherer , DO Admit Provider, Other Provider Ac tive Dr. Stephan Chery , DO Attending Provider, Other Provid er Active Team Status: Inactive Member Role Status Dates Dr. Louis Dobbs MD Primary Care Provider Active rAie Thomas MD Emergency Provider Active Dr. Merna Scherer , DO Admit Provider, Other Provider Ac tive Dr. Stephan Chery , DO Attending Provider Active Health Technical Writer Relationship Specialty Start Date End Date Louis Dobbs MD [address] [place] [address] PCP - General 12/27/06 Lee Carrizales MD [address] [place] [address] Specialty Carbon Brush Maker Acls Nurse 08/19/13 Malik Reis [address] [place] [address] Consulting Cardiology 10/22/13 Health Technical Writer Relationship Specialty Start Date End Date Louis Dobbs MD [address] [place] [address] PCP - General 12/27/06 Lee Carrizales MD [address] [place] [address] Specialty Carbon Brush Maker Acls Nurse 08/19/13 Malik Reis [address] [place] [address] Consulting Cardiology 10/22/13 Health Technical Writer Relationship Specialty Start Date End Date Louis Dobbs MD [address] [facility] [place], [place] [address] PCP - General 12/27/06 Lee Carrizales MD [address] [place] [address] Specialty Carbon Brush Maker Acls Nurse 08/19/13 Malik Reis [address] [place] [address] (Fax) Consulting Cardiology 10/22/13 Health Technical Writer Relationship Specialty Start Date End Date Louis Dobbs MD [address] [place] [address] PCP - General 12/27/06 Lee Carrizales MD [address] [place] [address] Specialty Carbon Brush Maker Acls Nurse 08/19/13 Malik Reis [address] [place] [address] (Fax) Consulting Cardiology 10/22/13 Health Technical Writer Relationship Specialty Start Date End Date Louis Dobbs MD [address] [place] [address] PCP - General 12/27/06 Lee Carrizales MD [address] [place] [address] Specialty Carbon Brush Maker Acls Nurse 08/19/13 Malik Reis [address] [place] [address] Consulting Cardiology 10/22/13 Health Technical Writer Relationship Specialty Start Date End Date Louis Dobbs MD [address] [place] [address] PCP - General 12/27/06 Lee Carrizales MD [address] [place] [address] Specialty Carbon Brush Maker Acls Nurse 08/19/13 Malik Reis [address] [place] [address] Consulting Cardiology 10/22/13 Health Technical Writer Relationship Specialty Start Date End Date Louis Dobbs MD [address] [place] [address] PCP - General 12/27/06 Lee Carrizales MD [address] [place] [address] Specialty Carbon Brush Maker Acls Nurse 08/19/13 Malik Reis [address] [place] [address] Consulting Cardiology 10/22/13 Health Technical Writer Relationship Specialty Start Date End Date Louis Dobbs MD [address] [place] [address] PCP - General 12/27/06 Lee Carrizales MD [address] [place] [address] Specialty Carbon Brush Maker Acls Nurse 08/19/13 Malik Reis [address] [place] [address] Consulting Cardiology 10/22/13 Health Technical Writer Relationship Specialty Start Date End Date Louis Dobbs MD [address] [place] [address] PCP - General 12/27/06 Lee Carrizales MD [address] [place] [address] Specialty Carbon Brush Maker Acls Nurse 08/19/13 Malik Reis MD [address] [place] [address] Consulting Cardiology 10/22/13 Judy Haywood, IRONER [email or web address].VP CLINICAL [address] [place] [address] Dry Heat Room Attendant Internal Medicine 07/15/24 Health Technical Writer Relationship Specialty Start Date End Date Louis Dobbs MD [address] [place] [address] PCP - General 12/27/06 Lee Carrizales MD [address] [place] [address] Specialty Carbon Brush Maker Acls Nurse 08/19/13 Malik Reis MD [address] [place] [address]21 Consulting Cardiology 10/22/13 Judy Haywood, IRONER SOCK.VP CLINICAL [address] [place] [address] Dry Heat Room Attendant Internal Medicine 07/15/24 Health Technical Writer Relationship Specialty Start Date End Date Louis Dobbs MD [address] [place] [address] PCP - General 12/27/06 Lee Carrizales MD [address] [facility] [place], [place] [address] Specialty Carbon Brush Maker Acls Nurse 08/19/13 Malik Reis MD [address] [place], [place] [address] Consulting Cardiology 10/22/13 Judy Haywood, IRONER SOCK.[facility] [address] [place], [place] [address] Dry Heat Room Attendant Internal Medicine 07/15/24 Team Status: Active Member Role Status Dates Dr. Louis Dobbs MD Primary Care Provider Active Start: June 25, 2024 Kyleigh Sam PHLEBOTOMIST MEDICAL LAB ASSISTANT, PHLEBOTOMIST MEDICAL LAB ASSISTANT-C Attending Provider Active Start: June 25, 2024 Team Status: Inactive Member Role Status Dates Dr. Louis Dobbs MD Primary Care Provider Active Start: June 28, 2024 End: June 28, 2024 Contreras Maxwell PHLEBOTOMIST MEDICAL LAB ASSISTANT, PHLEBOTOMIST MEDICAL LAB ASSISTANT-C Attending Provider Active S tart: June 28, 2024 End: June 28, 2024 Contreras Maxwell PHLEBOTOMIST MEDICAL LAB ASSISTANT, PHLEBOTOMIST MEDICAL LAB ASSISTANT-C Referring Provider Active S tart: June 28, [...] 11, 2024 End: October 11, 2024 Lucio CLAUDIO, PA Attending Provider Active Start: October 11, 2024 End: October 11, 2024 Team Status: Inactive Member Role Status Dates Dr. Louis Dobbs MD Primary Care Provider Active Start: October 11, 2024 End: October 11, 2024 Lucio CLAUDIO, PA Attending Provider Active Start: October 11, 2024 End: October 11, 2024 Lucio CLAUDIO PA Referring Provider Active Start: October 11, 2024 End: October 11, 2024 Health Technical Writer Relationship Specialty Start Date End Date Louis Dobbs MD [address] [facility] [place] [address] PCP - General 12/27/06 Lee Carrizales MD [address] [address] Specialty Carbon Brush Maker Acls Nurse 08/19/13 Malik Reis MD [address] [facility] [place] [place] [address] Consulting Cardiology 10/22/13 Judy Haywood, IRONER [email or web address].VP CLINICAL [address] [facility] [place] [address] Dry Heat Room Attendant Internal Medicine 07/15/24 Health Technical Writer Relationship Specialty Start Date End Date Louis Dobbs MD [address] [place] [address] PCP - General 12/27/06 Lee Carrizales MD [address] [place] [address] Specialty Carbon Brush Maker Acls Nurse 08/19/13 Malik Reis MD [address] [place] [address] Consulting Cardiology 10/22/13 Judy Haywood, IRONER SOCK.VP CLINICAL [address] [place] [address] Dry Heat Room Attendant Internal Medicine 07/15/24 Health Technical Writer Relationship Specialty Start Date End Date Louis Dobbs MD [address] [place] [address] PCP - General 12/27/06 Lee Carrizales MD [address] [place] [address] Specialty Carbon Brush Maker Acls Nurse 08/19/13 Malik Reis MD [address] [place] [address] Consulting Cardiology 10/22/13 Judy Haywood, IRONER SOCK.VP CLINICAL [address] [place] [address] Dry Heat Room Attendant Internal Medicine 07/15/24 Health Technical Writer Relationship Specialty Start Date End Date Louis Dobbs MD [address] [place] [address] PCP - General 12/27/06 Lee Carrizales MD [address] [place] [address] Specialty Carbon Brush Maker Acls Nurse 08/19/13 Malik Reis MD [address] [place] [address] Consulting Cardiology 10/22/13 Judy Haywood, IRONER SOCK.VP CLINICAL [address] [place] [address] Dry Heat Room Attendant Internal Medicine 07/15/24 Health Technical Writer Relationship Specialty Start Date End Date Louis Dobbs MD [address] [place] [address] PCP - General 12/27/06 Lee Carrizales MD [address] [place] [address] Specialty Carbon Brush Maker Acls Nurse 08/19/13 Malik Reis MD [address] [place] [address] Consulting Cardiology 10/22/13 Judy Haywood, IRONER [email or web address].VP CLINICAL [address] [place] [address] Dry Heat Room Attendant Internal Medicine 07/15/24 Team Status: Active Member [...] January 13, 2025 End: January 13, 2025 Health Technical Writer Relationship Specialty Start Date End Date Louis Dobbs MD [address] [place] [address] PCP - General 12/27/06 Lee Carrizales MD [address] [place], [place] [address] Specialty Carbon Brush Maker Acls Nurse 08/19/13 Malik Reis MD [address] [place], [place] 97[address]31 Consulting Cardiology 10/22/13 Judy Haywood, IRONER SOCK.VP CLINICAL [address] [place] [address] Dry Heat Room Attendant Internal Medicine 07/15/24 Health Technical Writer Relationship Specialty Start Date End Date Louis Dobbs MD [address] [place] [address] PCP - General 12/27/06 Lee Carrizales MD [address] [place] [address] Specialty Carbon Brush Maker Acls Nurse 08/19/13 Malik Reis MD [address] [place] [address] Consulting Cardiology 10/22/13 Judy Haywood, IRONER SOCK.VP CLINICAL [address] [place] [address] Dry Heat Room Attendant Internal Medicine 07/15/24 Health Technical Writer Relationship Specialty Start Date End Date Louis Dobbs MD [address] [place] [address] PCP - General 12/27/06 Lee Carrizales MD [address] [place] [address] Specialty Carbon Brush Maker Acls Nurse 08/19/13 Malik Reis MD [address] [place], [place] [address] Consulting Cardiology 10/22/13 Judy Haywood, IRONER [email or web address].VP CLINICAL [address] [place] [address] Dry Heat Room Attendant Internal Medicine 07/15/24 Health Technical Writer Relationship Specialty Start Date End Date Louis Dobbs MD [address] [place] [address] PCP - General 12/27/06 Lee Carrizales MD [address] [place] [address] Specialty Carbon Brush Maker Acls Nurse 08/19/13 Malik Reis MD [address] [place], [place] [address] Consulting Cardiology 10/22/13 Judy Haywood, IRONER [email or web address].VP CLINICAL [address] [place] [address] Dry Heat Room Attendant Internal Medicine 07/15/24 Health Technical Writer Relationship Specialty Start Date End Date Louis Dobbs MD [address] [place] [address] PCP - General 12/27/06 Lee Carrizales MD [address] [place] [address] Specialty Carbon Brush Maker Acls Nurse 08/19/13 Malik Reis MD [address] [place] [address] Consulting Cardiology 10/22/13 Judy Haywood, IRONER SOCK.VP CLINICAL [address] [place] [address] [facility] Internal Medicine 07/15/24 Health Technical Writer Relationship Specialty Start Date End Date Louis Dobbs MD [address] [place] [address] PCP - General 12/27/06 Lee Carrizales MD [address] [place] [address] Specialty Carbon Brush Maker Acls Nurse 08/19/13 Malik Reis MD [address] [place] [address]901 Consulting Cardiology 10/22/13 Judy Haywood, IRONER [email or web address].VP CLINICAL [address] [place] [address] [facility] Internal Medicine 07/15/24 Team Status: Active Member [...] 2025 Bernie Wallace Attending Provider Active Start: Vahid 2024 End: February 13, 2025 Team Status: Active Member Role/Relationship Status Dates Dr. Louis Dobbs MD Primary Care Provider Active Start: February 13, 2025 Lucio CLAUDIO PA Attending Provider Active Start: February 13, 2025 Lucio CLAUDIO, PA Referring Provider Active Start: February 13, [...] 2025 Bernie Wallace Attending Provider Active Start: Vahid 2024 End: February 13, 2025 Team Status: [...] February 13, 2025 End: February 13, 2025 Lucio CLAUDIO, PA Attending Provider Active Start: February 13, 2025 End: February 13, 2025 Lucio CLAUDIO, PA Referring Provider Active Start: February 13, [...] February 27, 2025 End: February 27, 2025 Health Technical Writer Relationship Specialty Start Date End Date Louis Dobbs MD [address] [place] [address] PCP - General 12/27/06 Lee Carrizales MD [address] [place] [address] Specialty Carbon Brush Maker Acls Nurse 08/19/13 Malik Reis MD [address] [place] [address] Consulting Cardiology 10/22/13 Judy Haywood, IRONER [email or web address].VP CLINICAL [address] [place] [address] Dry Heat Room Attendant Internal Medicine 07/15/24 Health Technical Writer Relationship Specialty Start Date End Date Louis Dobbs MD [address] [place] [address] PCP - General 12/27/06 Lee Carrizales MD [address] [place] [address] Specialty Carbon Brush Maker Acls Nurse 08/19/13 Malik Reis MD [address] [place] [address] Consulting Cardiology 10/22/13 Judy Haywood, IRONER [email or web address].VP CLINICAL [address] [place] [address] Dry Heat Room Attendant Internal Medicine 07/15/24 Health Technical Writer Relationship Specialty Start Date End Date Louis Dobbs MD [address] [place] [address] PCP - General 12/27/06 Lee Carrizales MD [address] [place] [address]51 Specialty Carbon Brush Maker Acls Nurse 08/19/13 Malik Reis MD [address] [facility] [place] [address] Consulting Cardiology 10/22/13 Judy Haywood, IRONER SOCK.VP CLINICAL [address] [place] [address] Dry Heat Room Attendant Internal Medicine 07/15/24 Team Status: Inactive Member Role/Relationship Status Dates [...] February 27, 2025 End: February 27, 2025 Team Status: Inactive Member Role/Relationship Status Dates Dr. Louis Dobbs MD Primary Care Provider Active Start: April 12, 2025 End: April 12, 2025 Dr. Dane Joseph DO Emergency Provider Active Start: April 12, 2025 End: April 12, 2025 Goals (unrecognized section and content) Goals may [...] BE BASED ON THE PRIMARY CLINICAL RECORDS. [facility]. provides no warranty or guarantee of the accuracy or completeness of information in this document.
--- NOTE | 2025-04-13 12:33 | ED.VIS.DYS ---
HPI History of Present Illness Chief Complaint: Shortness of Breath Informant: patient Associated Symptoms cough Chest Pain: Positive for None Narrative Narrative: 59-year-old female states she has been really short of breath for the past 2 days. She states she has had a respiratory illness for the past 3 to 4 weeks after she came in contact with some neighbor kids that had a respiratory illness and were coughing. She had some subjective fevers and chills and then and again recently. She has nasal congestion and a headache, chest tightness, wheezing, and she has COPD and does not have a rescue inhaler. She is not on home oxygen. She apparently was seen here yesterday and prescribed an antibiotic and no other new prescriptions. 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 Schizophrenia Anxiety Former smoker Stroke/cerebrovascular accident Non-ischemic cardiomyopathy 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 classified elsewhere Sick sinus syndrome Asthma Dysphagia as late effect of cerebrovascular accident (CVA) CVA (cerebral vascular accident) Medical History no medical history Home Medications ?Medication ?Instructions ?Recorded ?Last Taken ?Type cholecalciferol (vitamin D3) 125 125 mcg PO DAILY supplement 12/14/21 02/16/22 History mcg (5,000 unit) capsule rosuvastatin 5 mg tablet 5 mg PO QHS CHOLESTEROL 12/14/21 02/10/22 History acetaminophen 500 mg tablet 500 mg PO Q6H PRN pain/fever 02/16/22 Unknown History amlodipine 10 mg tablet 10 mg PO DAILY HTN 02/16/22 02/16/22 History ferrous sulfate 325 mg (65 mg 325 mg PO BID 10/14/22 Unknown History iron) tablet ascorbate calcium (vitamin C) 500 500 mg PO QDAY 06/05/24 Unknown History mg tablet furosemide 40 mg tablet (Lasix) 40 mg PO QDAY #90 tabs 06/05/24 Unknown Rx pantoprazole 20 mg tablet,delayed 20 mg PO QDAY 06/05/24 Unknown History release potassium chloride 20 mEq 20 meq PO QDAY K+ was low on the 06/14/24 Unknown Rx tablet,extended release 595 KCL #30 tabs apixaban 5 mg tablet (Eliquis) 5 mg PO BID #60 tabs 08/29/24 Unknown Rx ondansetron 4 mg disintegrating 4 mg PO Q8H PRN nausea and 01/13/25 Unknown Rx tablet vomiting #10 tabs benzonatate 100 mg capsule 100 mg PO BID PRN cough 7 days #14 04/12/25 Unknown Rx caps doxycycline hyclate 100 mg capsule 100 mg PO BID 7 days #14 caps 04/12/25 Unknown Rx albuterol sulfate 90 mcg/actuation 1 - 2 puff inhalation Q4H PRN PRN 04/13/25 Unknown Rx aerosol inhaler (Ventolin HFA) Wheezing ##1 prednisone 20 mg tablet 40 mg (2 x 20 mg) PO DAILY 7 days 04/13/25 Unknown Rx #14 tabs Allergy/AdvReac Type Severity Reaction Status Date / Time amoxicillin (Amoxicillin) Allergy Hives Verified 04/12/25 05:09 latex Allergy Rash Verified 04/12/25 05:09 lisinopril Allergy Unknown Verified 04/12/25 05:09 Penicillins Allergy Hives Verified 04/12/25 05:09 venom-honey bee (bee venom Allergy Swelling Verified 04/12/25 05:09 (honey bee)) ciprofloxacin (From Cipro) AdvReac Nausea/Vom/ Verified 04/12/25 05:09 Diarrhea Family History no significant family his Surgical History History of partial colectomy History of Presence of cardiac pacemaker (09/21/20) History of mitral valve replacement with bioprosthetic valve (07/23/09) Social History household members: children housing: apartment current occupational status: unemployed Smoking Status: Current every day smoker tobacco type: e-cigarettes second hand exposure: Yes alcohol intake: current alcohol intake frequency: holidays/special occasions only details: RARELY substance use type: does not use caffeine: Yes Type: carbonated beverages Number of servings: 1 what type of physical activity do you participate in: none seatbelt use: always ROS ROS ED Constitutional Constitutional ED: Reports chills, fatigue, fever(s), headache(s) and malaise Eyes Eyes: Denies change in vision or diplopia ENT ENT ED: Reports nasal congestion and sinus pain; Denies rhinorrhea or sore throat Cardiovascular Cardiovascular: Denies chest pain, leg edema, palpitations or radiating jaw, neck or arm pain Respiratory/Chest Respiratory/Chest: Reports chest tightness, cough, dyspnea and dyspnea on exertion; Denies sputum Gastrointestinal Gastrointestinal: Denies abdominal pain, diarrhea, nausea or vomiting Genitourinary Genitourinary ED: Denies dysuria or hematuria Musculoskeletal Musculoskeletal: Denies back pain or neck pain Integumentary Denies abscess or rash Neurologic Neurologic: Reports headache(s); Denies paresthesias or weakness Psychiatric Psychiatric: Denies suicidal thoughts EXAM Physical Exam Const Vital Signs: 04/13/25 12:18 04/13/25 12:26 04/13/25 12:29 Temperature 98 F Temperature Source Oral Pulse Rate 105 H Respiratory Rate 44 H Respiratory Effort Short of Breath Respiratory Depth Shallow Respiratory Pattern Tachypnea Blood Pressure 142/113 H Blood Pressure Mean 122 Pulse Ox 92 93 Oxygen Delivery Method Room Air Room Air Room Air 04/13/25 12:58 04/13/25 12:58 04/13/25 13:30 Temperature Temperature Source Pulse Rate 96 99 Respiratory Rate 30 H Respiratory Effort Respiratory Depth Respiratory Pattern Tachypnea Blood Pressure Blood Pressure Mean Pulse Ox 93 98 Oxygen Delivery Method Room Air Positive well nourished, well developed and obese Constitutional Narrative: well-appearing, no distress, conversive in full sentences General Appearance ED: well developed and NAD Nutritional Appearance: obese HEENT Reports moist mucous membranes normocephalic and atraumatic Eyes PERRL and EOMs intact bilaterally Neck full ROM, no lymphadenopathy, supple, no meningeal signs and no JVD Resp normal respiratory effort Resp Narrative: Diffuse expiratory wheezes and prolonged expiratory phase otherwise clear lungs. Symmetric bilaterally trachea midline. Cardio regular rate, regular rhythm and no murmurs Rate: Negative for tachycardic GI non-tender and non-distended Auscultation: normoactive bowel sounds Palpation: soft Back/Spine no CVA tenderness General Back: other FROM Extremity normal to inspection and no calf tenderness General Extremety ED: Negative for edema, pulses abnormal or tenderness General Extremity: Negative for edema or pulses abnormal Neuro oriented x3, CN's II-XII intact bilaterally and no sensory deficits noted Sensorium / Orientation: awake and alert Motor Exam: strength 5/5 throughout Psych Psych Narrative: Tangential. Having to continuously redirect the patient in order to focus history and exam on her current respiratory complaints. Mood & Affect: anxious Skin no rashes or lesions noted and no wounds MDM MDM MDM Narrative Medical decision making narrative: I briefly reviewed the ED visit from yesterday which I was not aware of until the patient stated to nursing that the medications that she got yesterday were not helping her. It seems she was diagnosed with sinusitis and placed on doxycycline, but she really did not appear to complain of dyspnea to the physician as she is now. I did review her echocardiogram from about a year ago, it shows dilated right ventricle with moderately severe tricuspid insufficiency, bioprosthetic mitral valve, and EF of 40-45%, and elevated right ventricular systolic pressure at about 38 mmHg. Chest x-ray 2 views of my interpretation are negative for pneumonia radiology in agreement. Her blood work is really unremarkable except for slightly low bicarb, her proBNP is within normal limits, her cardiac enzymes are normal and her EKG shows pacing capture without acute injury pattern. She feels much better after nebulizer treatments, she was also given Solu-Medrol. COVID/influenza/RSV swab is negative. I think she probably has a viral bronchitis that is causing a COPD exacerbation. She is not hypoxic, she feels well, and I think she is stable to be discharged home on a steroid burst, continue the doxycycline she was prescribed yesterday, and follow-up with her doctor. She is comfortable with that plan. Lab Data Attestation: I reviewed the patient's lab results. Labs: Laboratory Results - last 24 hr 04/13/25 12:37 WBC 9.4 RBC 4.42 Hgb 13.7 Hct 41.8 MCV 94.6 MCH 31.0 MCHC 32.8 RDW Std Deviation 48.1 H RDW Coeff of Jonathon 13.8 Plt Count 177 MPV 9.8 Immature Gran % (Auto) 0.300 Neut % (Auto) 79.0 H Lymph % (Auto) 12.8 L [place] % (Auto) 5.7 Eos % (Auto) 1.5 Baso % (Auto) 0.7 Absolute Neuts (auto) 7.4 Absolute Lymphs (auto) 1.20 Nucleated RBC % 0 Sodium 140 Potassium 4.4 Chloride 105 Carbon Dioxide 20.8 L Anion Gap 15 BUN 15 Creatinine 1.01 Estim Creat Clear Calc 63.14 Est GFR (MDRD) Non-Af 65 BUN/Creatinine Ratio 14.7 Glucose 101 H Calcium 9.3 Troponin T High Sens 12 NT pro BNP II 521 Radiography Diagnostic Testing: Clinical Impression(s) from Imaging Studies Chest X-Ray 04/13/25 13:05 IMPRESSION: Negative for acute cardiopulmonary disease. Reading Location: [facility] Discharge Plan Triage Chief Complaint: Shortness of Breath ED Provider: Eduardo Lopez Dx/Rx/DC Orders Clinical Impression: Acute exacerbation of chronic obstructive pulmonary disease (COPD), Acute bronchitis, viral Instructions: ED COPD Flare Prescriptions: New prednisone 20 mg tablet 40 mg PO DAILY 7 Days Qty: 14 0RF albuterol sulfate [Ventolin HFA] 90 mcg/actuation HFA aerosol inhaler 1 - 2 puff inhalation Q4H PRN PRN (Reason: Wheezing) Qty: 1 0RF No Action ferrous sulfate 325 mg (65 mg iron) tablet 325 mg PO BID pantoprazole 20 mg tablet,delayed release (DR/EC) 20 mg PO QDAY ascorbate calcium (vitamin C) 500 mg tablet 500 mg PO QDAY furosemide [Lasix] 40 mg tablet 40 mg PO QDAY Qty: 90 3RF cholecalciferol (vitamin D3) 125 mcg (5,000 unit) Capsule 125 mcg PO DAILY rosuvastatin 5 mg tablet 5 mg PO QHS acetaminophen 500 mg Tablet 500 mg PO Q6H PRN (Reason: pain/fever) amlodipine 10 mg Tablet 10 mg PO DAILY ondansetron 4 mg tablet,disintegrating 4 mg PO Q8H PRN (Reason: nausea and vomiting) Qty: 10 0RF doxycycline hyclate 100 mg capsule 100 mg PO BID 7 Days Qty: 14 0RF benzonatate 100 mg capsule 100 mg PO BID PRN (Reason: cough) 7 Days Qty: 14 0RF potassium chloride 20 mEq tablet extended release 20 meq PO QDAY Qty: 30 11RF Eliquis 5 mg tablet 5 mg PO BID Qty: 60 11RF Primary Care Provider: Louis Dobbs Referrals: Louis Dobbs MD [Primary Care Provider] - 5-7 Days Activity Restrictions/Additional Instructions: Do not start new prescription tablets until tomorrow 04/14/2025 since you already received your initial dose in the emergency department for 04/13. Continue to take the antibiotic (other prescription from 04/12) as prescribed until completely finished. Print Language: Setswana Disposition Disposition: Home, Self Care
[2025-04-13 12:49] LABS: Hematocrit 41.8 % (37-47); Hemoglobin 13.7 g/dL (12.0-15.0); Immature Granulocytes Count 0.030 X10^3/uL (0.0-0.0); Mean Corp Hgb Conc 32.8 g/dL (32-36); Mean Corpuscular Volume 94.6 fL (81-99); Mean Platelet Vol. 9.8 fl (6.2-12.0); NRBC Flagged by Analyzer 0 % (0-5); Platelet Count 177 K/mm3 (150-450); RBC Distribution Width CV 13.8 % (11.6-14.6); RBC Distribution Width SD 48.1 fl (35.1-43.9); Red Blood Count 4.42 M/mm3 (4.2-5.4); White Blood Count 9.4 K/mm3 (4.4-11.0)
[2025-04-13 12:58] VITALS: PULSE 96; RESP 30; O2SAT 93
[2025-04-13] MEDS: Albuterol 2.5 MG/3 ML VIAL.NEB. INHALATION (12:58)
--- NOTE | 2025-04-13 13:05 | RAD_ITS ---
PROCEDURE: CHEST PA AND LATERAL 04/13/2025 REASON FOR EXAM: COUGH SOB TECHNIQUE: Procedure Code: RADCXR Modality: DX Procedure: CHEST PA AND LATERAL COMPARISON: July 2023. FINDINGS: Hardware and support lines: Multilead cardiac pacing device left-side approach. Sternotomy wires in place with cardiac valve replacement. Heart: Negative. Lungs: Negative for infiltrates, or pulmonary edema. Pleura: No pleural thickening. No pleural effusion. Mediastinum and aorta: Negative for hilar adenopathy. Normal thoracic aorta. Bones: Degenerative changes of the shoulders. Otherwise age-appropriate degenerative changes of the spine. Other: Remainder of the exam negative. RAD/Chest PA and Lateral IMPRESSION: Negative for acute cardiopulmonary disease. Reading Location: [id number]
[2025-04-13 13:11] LABS: Anion Gap 15 (5-15); BUN 15 mg/dL (4-19); BUN/Creat Ratio 14.7 RATIO (10-20); Calcium,Total 9.3 mg/dL (7.6-11.0); Carbon Dioxide 20.8 mmol/L (21.0-32.0); Chloride 105 mmol/L (98-108); Estimated Creatinine Clearance 63.14 ml/min (50-250); Glucose 101 mg/dL (70-99); Potassium 4.4 mmol/L (3.3-5.1)
[2025-04-13 13:24] LABS: Pro- Brain NATRIURETIC PEPTIDE 521 pg/mL (<=900); Troponin T High Sensitivity 12 ng/L (<=14)
[2025-04-13 13:30] VITALS: PULSE 99; O2SAT 98
[2025-04-13 14:33] VITALS: BP 158/70; PULSE 99; RESP 16; TEMP 37; O2SAT 98
== END 2025-04-13 14:33 | disposition home or self-care (01) ==
PROVIDERS: Emergency Provider Emergency Medicine; PCP Internal Medicine; Visit Provider Emergency Medicine
DX: J44.1 Chronic obstructive pulmonary disease with (acute) exacerbation (principal); I69.359 Hemiplegia and hemiparesis following cerebral infarction affecting unspecified side; J44.0 Chronic obstructive pulmonary disease with (acute) lower respiratory infection; Z95.3 Presence of xenogenic heart valve; N18.9 Chronic kidney disease, unspecified; R06.02 Shortness of breath; Z90.49 Acquired absence of other specified parts of digestive tract; Z95.0 Presence of cardiac pacemaker; F17.290 Nicotine dependence, other tobacco product, uncomplicated; J20.9 Acute bronchitis, unspecified
CPT/HCPCS: 71046; 80048; 83880; 84484; 85025; 87631; 93005; 94640; 96374; 99285

== ENCOUNTER → 2025-05-16 | Outpatient (CLI) | payer MEDICARE, MEDICAID, SELFPAY ==
--- NOTE | 2025-05-16 13:30 | ECHOD_ITS ---
Reason For Study Reason For Study: SOB Procedure This was a 2D Doppler, Color Flow transthoracic echocardiogram. Exam performed in department. Left Ventricle Normal size and thickness. Mild to moderate global left ventricular systolic dysfunction. The left ventricular ejection fraction is 40 %. Stage 1 diastolic dysfunction. Right Ventricle Normal right ventricle. ICD or pacer leads identified within the right ventricle. Atria The left atrium is mildly enlarged. ICD or pacer leads identified within the right atrium. Mitral Valve Bioprosthetic mitral valve. Mean peak gradient 10 mmHg which is changed from 6 mmHg last year. Tricuspid Valve Moderate-Severe (3+) tricuspid valve insufficiency. Right ventricular systolic pressure estimated to be 33 mmHg. Aortic Valve Trisinus/trileaflet aortic valve. Pulmonic Valve The pulmonic valve is not well visualized. Trivial pulmonic valve insufficiency. Great Vessels Normal sized aortic root. Pericardium/Pleural No pericardial effusion. MMode/2D Measurements & Calculations LVIDd: 5.6 cm IVSd: 0.86 cm Ao root diam: 2.9 cm LVIDs: 4.2 cm LVPWd: 0.98 cm FS: 25.3 % LAV(MOD-bp): 41.4 ml LVAd ap4: 24.2 cm2 SV(MOD-sp4): 32.3 ml LAV(MOD-bp) Indexed: 22.8 ml/m2 LVLd ap4: 7.1 cm SI(MOD-sp4): 17.8 ml/m2 LAV(MOD-sp2): 35.6 ml EDV(MOD-sp4): 72.4 ml LAV(MOD-sp4): 50.3 ml EDV(sp4-el): 69.4 ml LVAs ap4: 18.2 cm2 LVLs ap4: 6.9 cm ESV(MOD-sp4): 40.1 ml ESV(sp4-el): 40.5 ml EF(MOD-sp4): 44.6 % EF(sp4-el): 41.7 % SV(sp4-el): 29.0 ml LA A4 area: 18.6 cm2 LA dimension(2D): 4.2 cm RA A4 area: 12.6 cm2 Time Measurements MV dec time: 0.22 sec Doppler Measurements & Calculations MV E max milan: 189.7 cm/sec Lat Peak E' Milan: 8.2 cm/sec Med Peak E' [place]: 6.7 cm/sec MV A max milan: 193.5 cm/sec E/E' lat: 23.1 E/E' med: 28.3 MV E/A: 0.98 MV V2 max: 200.9 cm/sec Ao V2 max: 145.1 cm/sec MV max P.2 mmHg MV dec slope: 880.4 cm/sec2 Ao max P.4 mmHg MV V2 mean: 154.9 cm/sec Ao V2 mean: 98.9 cm/sec MV mean P.4 mmHg Ao mean P.5 mmHg MV V2 VTI: 56.6 cm Ao V2 VTI: 28.9 cm AV (velocity ratio): 0.94 LV V1 max: 135.8 cm/sec PA V2 max: 95.2 cm/sec TR max milan: 260.1 cm/sec LV V1 max P.4 mmHg PA V2 mean: 67.8 cm/sec TR max P.1 mmHg LV V1 mean P.2 mmHg LV V1 mean: 95.1 cm/sec LV V1 VTI: 27.2 cm ECHO/Echo Complete Interpretation Summary Mild to moderate global left ventricular systolic dysfunction. The left ventricular ejection fraction is 40 %. Stage I diastolic dysfunction. The left atrium is mildly enlarged. Bioprosthetic mitral valve. Mean peak gradient 10 mmHg which is changed from 6 mmHg last year. Moderate-Severe (3+) tricuspid valve insufficiency. Right ventricular systolic pressure estimated to be 33 mmHg. Ordering Physician: Shavon Valentin Referring Physician: Shavon Valentin Performed By: Yeny Macdonald RCS
== END | disposition home or self-care (01) ==
LOC: CVS 13:29
PROVIDERS: PCP Internal Medicine; Referring Provider Internal Medicine Cardiovascular Disease; Visit Provider Internal Medicine Cardiovascular Disease
DX: I44.2 Atrioventricular block, complete (principal)
CPT/HCPCS: 93306